=== PATIENT | female | born 1970 | race Hispanic/Latino ===

== ENCOUNTER 2017-09-30 17:38 | Inpatient (IN) | payer BC, OTHER, SELFPAY ==
--- OUTSIDE RECORDS SUMMARY | 2017-09-30 17:40 | XMS REPORT | Clinical Summary ---
:1970 Author Organization [facility] Address [address] [place] [address] Phone Care Team Providers Name Role Phone Unavailable Primary Care Provider Unavailable Allergies No Known Allergies Current Medications Prescription Sig. Disp. Refills Start Date End Date Status metFORMIN (GLUCOPHAGE) Take 500 mg by mouth Active 500 MG tablet 2 (two) times daily with breakfast and dinner. glimepiride (AMARYL) 4 Take 4 mg by mouth 2 Active MG tablet (two) times daily before meals. empagliflozin Take 10 mg by mouth Active (JARDIANCE) 10 mg tablet daily. sertraline (ZOLOFT) 50 Take 50 mg by mouth Active MG tablet daily. Active Problems Not on file Encounters Date Type Specialty Care Team Description 05/09/2017 [facility] Lizzette Velásquez Breast microcalcifications Encounter MD Asaf Grossman Bertram Iheanyichukwu, MD 05/06/2017 Outside Orders [facility] Breast microcalcifications Scheduling MD Chauncey (Primary Dx) after 09/29/2016 Social History Tobacco Use Types Packs/Day Years Used Date Never Smoker Smokeless Tobacco: Never Used Sex Assigned at Date Recorded Not on file Last Filed Vital Signs Vital Sign Reading Time Taken Blood Pressure 116/75 05/09/2017 10:42 AM [employer] [employer] Pulse 86 05/09/2017 10:42 AM [employer] Temperature 36.2 C (97.1 F) 05/09/2017 9:20 AM [employer] Respiratory Rate 18 05/09/2017 10:42 AM [employer] Oxygen Saturation 97% 05/09/2017 10:42 AM [employer] Inhaled Oxygen Concentration - - Weight 77.1 kg (170 lb) 05/09/2017 9:20 AM [employer] Height 162.6 cm (5' 4") 05/09/2017 9:20 AM [employer] Body Mass Index 29.18 05/09/2017 9:20 AM [employer] Plan of Treatment Not on file Results Tissue Exam (05/09/2017 11:10 AM) Component Value Ref Range Case Report Surgical Pathology Report Case: [id number] Authorizing Provider:Lizzette Velásquez MDCollected: 05/09/2017 1110 [facility]2017 1312 Pathologist: Jackie Maradiaga MD Specimen:Breast, Left, LEFT MIDDLE 12 BREAST CALCIFICATION DIAGNOSIS BREAST, LEFT, MIDDLE 12 O'CLOCK,CALCIFICATIONS, STEREOTACTIC CORE NEEDLE BIOPSY: - HYALINIZED FIBROADENOMA - COLUMNAR CELL HYPERPLASIA - COLUMNAR CELL CHANGES - MICROCALCIFICATIONS, COARSE,ASSOCIATED WITH FIBROADENOMA Signing Pathologist Direct Phone Line: [phone] COMMENT In the sections examined, no atypical hyperplasia or carcinoma is identified. CPT Code(s) 30834 CLINICAL HISTORY Sclerosing lesion SPECIMEN SOURCE Left middle 12 oclock breast calcifications GROSS DESCRIPTION The specimen is received in a formalin-filled container labeled with the patients information and labeled left middle 12 o clock breast calcifications and consists of multiple yellow-white br east core biopsies ranging in length from 0.6 to 2.5 cm. Ink code: Black. The specimen is submitted entirely in A1 and A2. CG/ew MICROSCOPIC DESCRIPTION Performed. Professional component was performed [facility], at Department of Pathology, [address] [place] [address], [place] [address], Specimen Performing Laboratory Tissue - Breast, Left [address] [address] MM Breast Specimen Radiograph Left (05/09/2017 10:30 AM) Specimen Performing Laboratory GE RIS Narrative #[id number] - MM, MAMMO, SPECIMEN, RADIOGRAPH, LEFT SPECIMEN LEFT BREAST: 05/09/2017 Five stereotactic guided biopsy specimens were imaged for the area of calcifications located in the left breast at 12 o'clock middle depth. IMPRESSION: SPECIMEN The imaged specimens includes the calcifications. Lizzette Velásquez M.D. pth/:05/09/2017 11:06:40 Monotype Caster: Felicia BELLA (R)(Phil), [facility] [id number] Procedure Note Interface, External Ris In - 05/09/2017 11:46 AM CREATIVE SERVICES SPECIALIST #[id number] - MM, MAMMO, SPECIMEN, RADIOGRAPH, LEFT SPECIMEN LEFT BREAST: 05/09/2017 Five stereotactic guided biopsy specimens were imaged for the area of calcifications located in the left breast at 12 o'clock middle depth. IMPRESSION: SPECIMEN The imaged specimens includes the calcifications. Lizzette Velásquez M.D. pth/:05/09/2017 11:06:40 Monotype Caster: Felicia BELLA (R)(Phil), [facility] [id number] , DIGITAL, UNILATERAL, CONFER MARTA, MAMMO, LEFT (05/09/2017 10:00 AM) Specimen Performing Laboratory GE RIS Narrative #[id number] - MM, DIGITAL, UNILATERAL, CONFER MARTA, MAMMO, LEFT INCLUDING CAD UNILATERAL LEFT DIGITAL PROBLEM SOLVING MAMMOGRAM POST-PROCEDURE IMAGING FOR MARKER PLACEMENT: 05/09/2017 The tissue of the left breast is heterogeneously dense. This may lower the sensitivity of mammography. The post procedure mammogram was performed on a separate mammography unit. A clip is placed at the biopsy site. IMPRESSION: POST PROCEDURE MAMMOGRAM FOR MARKER PLACEMENT Await pathology results. Lizzette Velásquez M.D. pth/:05/09/2017 11:07:15 Monotype Caster: Felicia IRVIN (R)), [facility] Mammogram BI-RADS: Post-procedure mammogram for marker placement [id number] Procedure Note Interface, External Ris In - 05/09/2017 11:46 AM CREATIVE SERVICES SPECIALIST #[id number] - MM, DIGITAL, UNILATERAL, CONFER MARTA, MAMMO, LEFT INCLUDING CAD UNILATERAL LEFT DIGITAL PROBLEM SOLVING MAMMOGRAM POST-PROCEDURE IMAGING FOR MARKER PLACEMENT: 05/09/2017 The tissue of the left breast is heterogeneously dense. This may lower the sensitivity of mammography. The post procedure mammogram was performed on a separate mammography unit. A clip is placed at the biopsy site. IMPRESSION: POST PROCEDURE MAMMOGRAM FOR MARKER PLACEMENT Await pathology results. Lizzette Velásquez M.D. pth/:05/09/2017 11:07:15 Monotype Caster: Felicia Rizzo RT(R)(M), [facility] Mammogram BI-RADS: Post-procedure mammogram for marker placement [id number] Stereotactic breast biopsy left (05/09/2017 9:45 AM) Specimen Performing Laboratory GE RIS Narrative Addendum Begins AMENDMENT: 05/14/2017 Lizzette Velásquez M.D. Pathology results are now available and demonstrate hyalinized fibroadenoma. This is concordant with the imaging findings. Addendum Ends #[id number] - MM, STEREOTACTIC BIOPSY, BREAST, LEFT STEREOTACTIC GUIDED BIOPSY LEFT BREAST WITH MARKING DEVICE INSERTED AND POST DIGITAL MAMMOGRAPHIC IMAGING AND RADIOGRAPHIC SPECIMEN IMAGIN05/09/2017 PATIENT CONSENT: The procedure, risks, benefits and alternatives were discussed with the patient. Informed consent was obtained. A stereotactic guided biopsy was performed for the area of calcifications located in the left breast at 12 o'clock middle depth. The skin was prepped in the usual manner.Local anesthetic was administered to the access site.A skin merissa was made in the breast. The abnormality was approached from the craniocaudal aspect using a prone table.A 9 gauge biopsy needle was placed adjacent to the abnormality under computer guidance and confirmatory stereotactic mammography images were obtained to document needle placement.Once the needle was documented to be in the correct location, five specimens were obtained using InvidioIVA device.A clip was inserted into the biopsy cavity.Post procedure digital mammographic imaging demonstrates the clip at the targeted area.The specimens were sent to the laboratory for pathological analysis. IMPRESSION: STEREOTACTIC GUIDED BIOPSY Stereotactic guided biopsy of the area of calcifications in the left breast at 12 o'clock middle depth was successful with no apparent post procedure complications.The imaged specimens includes the calcifications. Lizzette Velásquez M.D. pth/penrad:05/09/2017 11:07:57 Monotype Caster: Felicia BELLA(R)(M), [facility] [id number] Procedure Note Interface, External Ris In - 05/14/2017 4:32 PM [employer]IVE SERVICES SPECIALIST Addendum Begins AMENDMENT: 05/14/2017 Lizzette Velásquez M.D. Pathology results are now available and demonstrate hyalinized fibroadenoma. This is concordant with the imaging findings. Addendum Ends #[id number] - MM, STEREOTACTIC BIOPSY, BREAST, LEFT STEREOTACTIC GUIDED BIOPSY LEFT BREAST WITH MARKING DEVICE INSERTED AND POST DIGITAL MAMMOGRAPHIC IMAGING AND RADIOGRAPHIC SPECIMEN IMAGIN05/09/2017 PATIENT CONSENT: The procedure, risks, benefits and alternatives were discussed with the patient. Informed consent was obtained. A stereotactic guided biopsy was performed for the area of calcifications located in the left breast at 12 o'clock middle depth. The skin was prepped in the usual manner. Local anesthetic was administered to the access site. A skin merissa was made in the breast. The abnormality was approached from the craniocaudal aspect using a prone table. A 9 gauge biopsy needle was placed adjacent to the abnormality under computer guidance and confirmatory stereotactic mammography images were obtained to document needle placement. Once the needle was documented to be in the correct location, five specimens were obtained using ENJORE EVIVA device. A clip was inserted into the biopsy cavity. Post procedure digital mammographic imaging demonstrates the clip at the targeted area. The specimens were sent to the laboratory for pathological analysis. IMPRESSION: STEREOTACTIC GUIDED BIOPSY Stereotactic guided biopsy of the area of calcifications in the left breast at 12 o'clock middle depth was successful with no apparent post procedure complications. The imaged specimens includes the calcifications. Lizzette Velásquez M.D. pth/penrad:05/09/2017 11:07:57 Monotype Caster: Felicia SCHNEIDER)(M), [facility] [id number] after 09/29/2016
--- OUTSIDE RECORDS SUMMARY | 2017-09-30 17:40 | XMS REPORT ---
:1970 [facility] Address [address] Chang [address] [place] [address] Care Team Providers Name Role Phone ANTONI AIDA CROCKER Unavailable Unavailable Problems This patient has no known problems. Allergies, Adverse Reactions, Alerts This patient has no known allergies or adverse reactions. Medications This patient has no known medications. Results Test Description Test Time Test Comments Text Results Atomic Results Result Comments MM, STEREOTACTIC 2017-05-14 Reason for Addendum BeginsMRN#: BIOPSY, BREAST, 15:59:00 Exam:->calcification [id number]: LEFT 05/14/2017 Lizzette Velásquez M.D. 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 Addendum EndsN#: [id number] - MM, STEREOTACTIC BIOPSY, BREAST, LEFTSTEREOTACTIC GUIDED BIOPSY LEFT BREAST WITH MARKING DEVICE INSERTED AND POST DIGITAL MAMMOGRAPHIC IMAGING AND RADIOGRAPHIC SPECIMEN IMAGIN05/09/2017PATIENT CONSENT: The procedure, risks, benefits and alternatives [...] correct location, five specimens were obtained using Playdemic device. A clip was inserted into the biopsy cavity. Post procedure digital mammographic imaging demonstrates the clip at the targeted area. The specimens were sent to the laboratory for pathological analysis. IMPRESSION: STEREOTACTIC GUIDED BIOPSYStereotactic guided biopsy of the area of calcifications in the left breast at 12 o'clock middle depth was successful with no apparent post procedure complications. The imaged specimens includes the calcifications. Lizzette Velásquez M.D. pth/penrad:05/09/2017 11:07:57 Page Technician: Felicia Rizzo RT(R)(M), [facility] [id number] UE EXAM 2017-05-12 Surgical Pathology Report 12:48:00 Case: [id number] Authorizing Provider: Lizzette Velásquez MD Collected: 05/09/2017 1110 Ordering Location: [facility] [place] Received: 05/09/2017 1312 Pathologist: Jackie Maradiaga MD Specimen: Breast, Left, LEFT MIDDLE 12 BREAST CALCIFICATION BREAST, LEFT, MIDDLE 12 O'CLOCK, CALCIFICATIONS, STEREOTACTIC CORE NEEDLE BIOPSY: - HYALINIZED FIBROADENOMA - COLUMNAR CELL HYPERPLASIA - COLUMNAR CELL CHANGES - MICROCALCIFICATIONS, COARSE, ASSOCIATED WITH FIBROADENOMA Signing Pathologist Direct Phone Line: [phone] y signed by Jackie Maradiaga MD on 05/12/2017 at 12:48 PMIn the sections examined, no atypical hyperplasia or carcinoma is identified.[id number] g lesion Left middle 12 o'clock breast calcifications The specimen is received in a formalin-filled container labeled with the patient's information and labeled "left middle 12 o'clock breast calcifications" and consists of multiple yellow-white breast core biopsies ranging in length from 0.6 to 2.5 cm.Ink code: Black.The specimen is submitted entirely in A1 and A2. CG/ewPerformed.[facility], Department of Pathology, [address] [place] [address], [place] [address], MM, DIGITAL, 2017-05-09 Left breast calcifications #[id number] - UNILATERAL, 11:07:00 MM, DIGITAL, UNILATERAL, CONFER MARTA, CONFER MARTA, MAMMO, LEFT MAMMO, LEFT INCLUDING CADUNILATERAL INCLUDING CAD LEFT DIGITAL PROBLEM SOLVING MAMMOGRAM POST-PROCEDURE IMAGING FOR MARKER PLACEMENT: 05/09/2017 The tissue of the left breast is heterogeneously dense. This may lower the sensitivity of mammography. The post procedure mammogram was performed on a separate mammography unit.A clip is placed at the biopsy site. IMPRESSION: POST PROCEDURE MAMMOGRAM FOR MARKER PLACEMENTAwait pathology results. Lizzette Velásquez M.D. pth/:05/09/2017 11:07:15 Page Technician: Felicia IRVIN (R)), [facility] Mammogram BI-RADS: Post-procedure mammogram for marker placement [id number] ETTE, MAMMO, 2017-05-09 Reason for exam:->Left #[id number] - SPECIMEN, 11:06:00 breast calcifications MM, MAMMO, SPECIMEN, RADIOGRAPH, LEFT RADIOGRAPH, LEFTSPECIMEN LEFT BREAST: 05/09/2017Five stereotactic guided biopsy specimens were imaged for the area of calcifications located in the left breast at 12 o'clock middle depth. IMPRESSION: SPECIMENThe imaged specimens includes the calcifications. Lizzette Velásquez M.D. pth/:05/09/2017 11:06:40 Page Technician: Felicia SCHNEIDER)(Phil), [facility] [id number]
[2017-09-30] MEDS ORDERED: CIPROFLOXACIN 400mg IV 400 MG/200 ML BAG IV ONE (19:06)
[2017-09-30] MEDS ORDERED: MORPHINE 4 MG/ML SYR ONE ×2 (19:06→20:26)
[2017-09-30] MEDS ORDERED: METRONIDAZOLE 500mg IVPB 500 MG/100 ML BAG IV ONE (19:06)
[2017-09-30] MEDS ORDERED: ONDANSETRON 4 MG/2 ML VIAL ONE ×2 (19:06→20:26)
[2017-09-30] MEDS ORDERED: FAMOTIDINE 20 MG/2 ML VIAL IV ONE (19:06)
[2017-09-30] MEDS ORDERED: NA CHLORIDE 0.9% 1,000 ML ONE (19:06)
[2017-09-30 19:11] LABS: Absolute Lymphocytes (CBC) 3.2 K/uL (0.7-4.9); Absolute Monocytes 0.6 K/uL (0.1-1.3); Basophils % 0.8 % (0-1.3); Eosinophils % 1.9 % (0-4.4); Hematocrit 41.5 % (36.0-45.0); Lymphocytes % 26.5 % (15.3-44.8); MCV 89.8 fL (80-100); Monocytes % 4.7 % (3.3-12.3); RBC Red Blood Cell Count 4.62 M/uL (3.86-4.86)
[2017-09-30 19:14] LABS: Protime INR 1.07
[2017-09-30 19:23] LABS: Glucose Level 80 mg/dL (65-120); Lipase 118 U/L (22-51)
[2017-09-30 19:26] LABS: Bicarbonate 31 mEq/L (21-31); Sodium Level 140 mEq/L (135-145)
[2017-09-30 19:29] LABS: ALT/SGPT 26 IU/L (10-60); AST/SGOT 28 IU/L (10-42); Albumin 4.4 g/dL (3.2-5.5); Alkaline Phosphatase 93 IU/L (42-121); BUN Blood Urea Nitrogen 9 mg/dL (6-20); Bilirubin Direct 0.1 mg/dL (0-0.2); Bilirubin Total 0.6 mg/dL (0.3-1.2); CKMB Creatine Kinase MB 0.6 ng/ml (0.3-4.0); Creatine Phosphokinase 23 IU/L (22-269); Glomerular Filtration Rate > 90 mL/min (=/>90); Magnesium 1.7 mg/dL (1.8-2.5); Protein, Total 8.4 g/dL (6.0-8.3)
--- NOTE | 2017-09-30 19:32 | RAD REPORT ---
EXAM DESCRIPTION: RAD - Chest Single View - 09/30/2017 7:08 pm CLINICAL HISTORY: Cough, abdominal distention COMPARISON: February 2017 TECHNIQUE: AP portable chest image was obtained 1858 hours . FINDINGS: Lungs are clear. Lung markings are similar to comparison. Heart and vasculature are normal . No measurable pleural effusion and no pneumothorax. No gross bony abnormality seen. No acute aortic findings suspected. IMPRESSION: No acute cardiopulmonary process. No significant interval change.
--- NOTE | 2017-09-30 20:01 | EDPHYS ---
Physician Documentation [facility] Name: Dena Nance Age: 47 yrs Sex: Female : 1970 Arrival Date: 09/30/2017 Time: 17:42 Bed 26 Private MD: Mason Arreguin ED Physician Ricardo Araiza HPI: 09/30 18:32 This 47 yrs old Female presents to ER via Ambulatory with complaints of tavo Abdominal Pain. 18:32 The patient presents with abdominal pain in the upper abdomen, in the lower abdomen. tavo Onset: The symptoms/episode began/occurred 3 day(s) ago. The symptoms do not radiate. Associated signs and symptoms: none. The symptoms are described as crampy. Modifying factors: The symptoms are alleviated by nothing, the symptoms are aggravated by movement. Severity of pain: At its worst the pain was mild moderate in the emergency department the pain is unchanged. 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 - Social history:: Smoking status: Patient/guardian denies using tobacco. - Family history:: not pertinent. ROS: 18:32 Constitutional: Negative for fever, chills, and weight loss, Eyes: Negative for injury, tavo pain, redness, and discharge, ENT: Negative for injury, pain, and discharge, Neck: Negative for injury, pain, and swelling, Cardiovascular: Negative for chest pain, palpitations, and edema, Respiratory: Negative for shortness of breath, cough, wheezing, and pleuritic chest pain, Back: Negative for injury and pain, : Negative for injury, bleeding, discharge, and swelling, MS/Extremity: Negative for injury and deformity, Skin: Negative for injury, rash, and discoloration, Neuro: Negative for headache, weakness, numbness, tingling, and seizure, Psych: Negative for depression, anxiety, suicide ideation, homicidal ideation, and hallucinations, Allergy/Immunology: Negative for hives, rash, and allergies, Endocrine: Negative for neck swelling, polydipsia, polyuria, polyphagia, and marked weight changes. 18:32 Abdomen/GI: Positive for abdominal pain, nausea and vomiting, of the right upper quadrant, left upper quadrant, right lower quadrant and left lower quadrant. Exam: 18:32 Constitutional: This is a well developed, well nourished patient who is awake, alert, tavo and in no acute distress. Head/Face: Normocephalic, atraumatic. Eyes: Pupils equal round and reactive to light, extra-ocular motions intact. Lids and lashes normal. Conjunctiva and sclera are non-icteric and not injected. Cornea within normal limits. Periorbital areas with no swelling, redness, or edema. ENT: Nares patent. No nasal discharge, no septal abnormalities noted. Tympanic membranes are normal and external auditory canals are clear. Oropharynx with no redness, swelling, or masses, exudates, or evidence of obstruction, uvula midline. Mucous membranes moist. Neck: Trachea midline, no thyromegaly or masses palpated, and no cervical lymphadenopathy. Supple, full range of motion without nuchal rigidity, or vertebral point tenderness. No Meningismus. Chest/axilla: Normal chest wall appearance and motion. Nontender with no deformity. No lesions are appreciated. Cardiovascular: Regular rate and rhythm with a normal S1 and S2. No gallops, murmurs, or rubs. Normal PMI, no JVD. No pulse deficits. Respiratory: Lungs have equal breath sounds bilaterally, clear to auscultation and percussion. No rales, rhonchi or wheezes noted. No increased work of breathing, no retractions or nasal flaring. Back: No spinal tenderness. No costovertebral tenderness. Full range of motion. Female : Normal external genitalia. Skin: Warm, dry with normal turgor. Normal color with no rashes, no lesions, and no evidence of cellulitis. MS/ Extremity: Pulses equal, no cyanosis. Neurovascular intact. Full, normal range of motion. Neuro: Awake and alert, GCS 15, oriented to person, place, time, and situation. Cranial nerves II-XII grossly intact. Motor strength 5/5 in all extremities. Sensory grossly intact. Cerebellar exam normal. Normal gait. Psych: Awake, alert, with orientation to person, place and time. Behavior, mood, and affect are within normal limits. 18:32 Abdomen/GI: Inspection: distension, Bowel sounds: normal, Palpation: moderate abdominal tenderness, in the right upper quadrant, left upper quadrant, right lower quadrant and left lower quadrant, Liver: no appreciated palpable abnormalities, Hernia: not appreciated. Vital Signs: 18:15 BP 110 / 59; Pulse 78; Resp 14; Temp 98.7(O); Pulse Ox 95% on R/A; Weight 77.11 kg (R); lk1 Height 5 ft. 4 in. (162.56 cm) (R); Pain 9/10; 19:00 BP 110 / 86; Pulse 82; Resp 15; Pulse Ox 97% on R/A; lk1 19:30 BP 120 / 63; Pulse 85; Resp 15; Pulse Ox 97% on R/A; lk1 20:00 BP 125 / 64; Pulse 83; Resp 14; Pulse Ox 96% on R/A; lk1 20:30 BP 129 / 72; Pulse 90; Resp 15; Pulse Ox 98% on R/A; lk1 21:00 BP 109 / 53; Pulse 65; Resp 14; Pulse Ox 95% on R/A; Pain 5/10; lk1 21:30 BP 108 / 46; Pulse 68; Resp 12; Pulse Ox 95% on R/A; lk1 22:00 BP 115 / 69; Pulse 94; Resp 15; Pulse Ox 96% on R/A; lk1 22:30 BP 100 / 58; Pulse 91; Resp 15; Pulse Ox 94% on R/A; Pain 7/10; lk1 18:15 Body Mass Index 29.18 (77.11 kg, 162.56 cm) [facility] MDM: 18:19 Patient medically screened. [facility] 18:36 Data reviewed: vital signs, nurses notes, lab test result(s), EKG, radiologic studies, [facility] CT scan, plain films. 09/30 18:31 Order name: Basic Metabolic Panel; Complete Time: 19:34 [facility] 09/30 18:31 Order name: BNP; Complete Time: 19:29 [facility] 09/30 18:31 Order name: CBC with Diff; Complete Time: 19:29 [facility] 09/30 18:31 Order name: Ckmb; Complete Time: 19:34 [facility] 09/30 18:31 Order name: CPK; Complete Time: 19:34 [facility] 09/30 18:31 Order name: LFT's; Complete Time: 19:34 [facility] 09/30 18:31 Order name: Magnesium; Complete Time: 19:34 [facility] 09/30 18:31 Order name: PT-INR; Complete Time: 19:29 [facility] 09/30 18:31 Order name: Ptt, Activated; Complete Time: 19:29 [facility] 09/30 18:31 Order name: Troponin (emerg Dept Use Only); Complete Time: 19:29 [facility] 09/30 18:31 Order name: XRAY Chest (1 view); Complete Time: 19:34 [facility] 09/30 18:31 Order name: Lipase; Complete Time: 19:34 [facility] 09/30 18:31 Order name: US Abdomen Limited; Complete Time: 21:15 [facility] 09/30 19:57 Order name: Urine Dipstick--Ancillary (enter results); Complete Time: 21:15 em1 09/30 18:31 Order name: CT Abd/Pelvis - W/Contrast [facility] 09/30 20:58 Order name: CT; Complete Time: 21:15 EDMS 09/30 18:31 Order name: EKG; Complete Time: 18:32 [facility] 09/30 18:31 Order name: Cardiac monitoring; Complete Time: 20:48 [facility] 09/30 18:31 Order name: EKG - Nurse/Tech [facility] 09/30 18:31 Order name: IV Saline Lock; Complete Time: 20:48 [facility] 09/30 18:31 Order name: Labs collected and sent; Complete Time: 20:48 [facility] 09/30 18:31 Order name: O2 Per Protocol; Complete Time: 21:24 [facility] 09/30 18:31 Order name: O2 Sat Monitoring; Complete Time: 21:24 [facility] 09/30 18:31 Order name: Urine Dipstick-Ancillary (obtain specimen); Complete Time: 19:56 [facility] 09/30 20:11 Order name: CONS Physician Consult EDMS Administered Medications: 18:48 Drug: Zofran 4 mg Route: IVP; Site: right antecubital; lk1 19:05 Follow up: Response: No adverse reaction; Nausea is decreased lk1 18:50 Drug: Pepcid 20 mg Route: IVP; Site: right antecubital; lk1 19:15 Follow up: Response: No adverse reaction lk1 18:51 Drug: morphine 2 mg Route: IVP; Site: right antecubital; lk1 19:05 Follow up: Response: No adverse reaction; Marked relief of symptoms; Pain is decreased lk1 19:10 Drug: NS 0.9% 1000 ml Route: IV; Rate: 1 bolus; Site: right antecubital; lk1 20:10 Follow up: Response: No adverse reaction; IV Status: Completed infusion lk1 19:10 Drug: morphine 2 mg Route: IVP; Site: right antecubital; lk1 19:25 Follow up: Response: No adverse reaction; Marked relief of symptoms; Pain is decreased lk1 19:10 Drug: Cipro 400 mg Volume: 200 ml; Route: IVPB; Infused Over: 60 mins; Site: right lk1 antecubital; 20:10 Follow up: Response: No adverse reaction; IV Status: Completed infusion lk1 19:10 Drug: Flagyl 500 mg Volume: 100 ml; Route: IVPB; Rate: 200 ml/hr; Infused Over: 30 lk1 mins; Site: right antecubital; 19:40 Follow up: Response: No adverse reaction; IV Status: Completed infusion lk1 20:00 Drug: NS 0.9% 1000 ml Route: IV; Rate: 1 bolus; Site: right antecubital; lk1 21:00 Follow up: Response: No adverse reaction; IV Status: Completed infusion lk1 20:02 Drug: Potassium Chloride 20 mEq Route: IV; Rate: per protocol; Site: right antecubital; lk1 22:00 Follow up: Response: No adverse reaction; IV Status: Completed infusion lk1 20:05 Drug: Zofran 4 mg Route: IVP; Site: right antecubital; lk1 20:30 Follow up: Response: No adverse reaction; Marked relief of symptoms; Nausea is decreasedlk1 20:07 Drug: morphine 4 mg Route: IVP; Site: right antecubital; lk1 20:30 Follow up: Response: No adverse reaction; Marked relief of symptoms; Pain is decreased lk1 21:25 Drug: NS 0.9% 1000 ml Route: IV; Rate: 1 bolus; Site: right antecubital; lk1 22:25 Follow up: Response: No adverse reaction; IV Status: Completed infusion lk1 21:25 Drug: Magnesium Sulfate 1 grams Route: IVPB; Infused Over: 1 hrs; Site: right lk1 antecubital; 22:24 Follow up: Response: No adverse reaction; IV Status: Completed infusion lk1 22:25 Drug: Rocephin - (cefTRIAXone) 1 grams Route: IVPB; Infused Over: 30 mins; Site: right lk1 antecubital; 22:55 Follow up: Response: No adverse reaction; IV Status: Completed infusion lk1 22:30 Not Given (Will be started on admision as patient is leaving ED): NS 0.9% with KCl 20 lk1 mEq/L 1000 ml IV at 125 ml/hr continuous Disposition: 09/30/17 20:00 Hospitalization ordered by Bon Ponce for Inpatient Admission. Preliminary diagnosis are Abdominal tenderness, Acute pancreatitis, Hypomagnesemia, Hypokalemia, Diverticular disease of intestine, Diverticulitis of large intestine without perforation or abscess without bleeding. - Bed requested for Telemetry/MedSurg (Inpatient). - Status is Inpatient Admission. lk1 - Condition is Fair. - Problem is new. - Symptoms have improved. UTI on Admission? No Signatures: Dispatcher [employer] Kanika Olea RN RN kl Anderson, Corey, MD MD cha Kluge, Leah, RN RN lk1 Corrections: (The following items were deleted from the chart) 18:59 18:31 Urine Test ordered. tavo land
--- NOTE | 2017-09-30 20:01 | ER ---
Nurse's Notes [facility] Name: Dena Nance Age: 47 yrs Sex: Female : 1970 Arrival Date: 09/30/2017 Time: 17:42 Bed 26 Private MD: Mason Arreguin Diagnosis: Abdominal tenderness;Acute pancreatitis;Hypomagnesemia;Hypokalemia;Diverticular disease of intestine;Diverticulitis of large intestine without perforation or abscess without bleeding Presentation: 09/30 18:12 Presenting complaint: Patient states: I have had a pain in the upper part of my abdomen lk1 that goes side to side for 3 days. Transition of care: patient was not received from another setting of care. Onset of symptoms was September 28, 2017. Care prior to arrival: None. 18:12 Method Of Arrival: Ambulatory lk1 18:12 Acuity: MARIANA 3 lk1 Triage Assessment: 18:14 General: Appears in no apparent distress. Behavior is calm, cooperative, appropriate lk1 for age. Pain: Complains of pain in epigastric area Pain radiates to right upper quadrant and left upper quadrant Pain currently is 9 out of 10 on a pain scale. Aggravated by exercise. EENT: No signs and/or symptoms were reported regarding the EENT system. Neuro: Level of Consciousness is awake, alert, obeys commands, Oriented to person, place, time, situation. Cardiovascular: Heart tones S1 S2 present Capillary refill is brisk Patient's skin is warm and dry. Respiratory: Airway is patent Respiratory effort is even, unlabored, Respiratory pattern is regular, symmetrical, Breath sounds are clear bilaterally. GI: Abdomen is non-distended, Bowel sounds present X 4 quads. GI: Reports nausea, Patient currently denies cramping, diarrhea, vomiting. : No signs and/or symptoms were reported regarding the genitourinary system. Derm: No signs and/or symptoms reported regarding the dermatologic system. Musculoskeletal: No signs and/or symptoms reported regarding the musculoskeletal system. 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 - Social history:: Smoking status: Patient/guardian denies using tobacco. - Family history:: not pertinent. Screenin:30 Abuse screen: Denies threats or abuse. Denies injuries from another. Nutritional lk1 screening: No deficits noted. Tuberculosis screening: No symptoms or risk factors identified. Fall Risk None identified. Assessment: 19:00 Reassessment: Patient and/or family updated on plan of care and expected duration. Pain lk1 level reassessed. Patient is alert, oriented x 3, equal unlabored respirations, skin warm/dry/pink. Patient states feeling better. Patient states symptoms have improved. 20:00 Reassessment: Patient and/or family updated on plan of care and expected duration. Pain lk1 level reassessed. Patient is alert, oriented x 3, equal unlabored respirations, skin warm/dry/pink. Patient states feeling better. Patient states symptoms have improved. 23:10 GI: Guarding noted in epigastric area and left upper quadrant. lk1 Vital Signs: 18:15 BP 110 / 59; Pulse 78; Resp 14; Temp 98.7(O); Pulse Ox 95% on R/A; Weight 77.11 kg (R); lk1 Height 5 ft. 4 in. (162.56 cm) (R); Pain 9/10; 19:00 BP 110 / 86; Pulse 82; Resp 15; Pulse Ox 97% on R/A; lk1 19:30 BP 120 / 63; Pulse 85; Resp 15; Pulse Ox 97% on R/A; lk1 20:00 BP 125 / 64; Pulse 83; Resp 14; Pulse Ox 96% on R/A; lk1 20:30 BP 129 / 72; Pulse 90; Resp 15; Pulse Ox 98% on R/A; lk1 21:00 BP 109 / 53; Pulse 65; Resp 14; Pulse Ox 95% on R/A; Pain 5/10; lk1 21:30 BP 108 / 46; Pulse 68; Resp 12; Pulse Ox 95% on R/A; lk1 22:00 BP 115 / 69; Pulse 94; Resp 15; Pulse Ox 96% on R/A; lk1 22:30 BP 100 / 58; Pulse 91; Resp 15; Pulse Ox 94% on R/A; Pain 7/10; lk1 18:15 Body Mass Index 29.18 (77.11 kg, 162.56 cm) lk1 ED Course: 17:42 Patient arrived in ED. mr 17:42 Mason Arreguin MD is Private Physician. mr 18:11 Zulema Garcia, RN is Primary Nurse. lk1 18:12 Triage completed. lk1 18:16 Arm band placed on right wrist. lk1 18:19 Ricardo Araiza MD is Attending Physician. tavo 18:30 Patient has correct armband on for positive identification. Placed in gown. Bed in low lk1 position. Call light in reach. Adult w/ patient. 18:50 Inserted saline lock: 22 gauge in right antecubital area, using aseptic technique. kr2 Blood collected. 19:06 X-ray completed. Patient tolerated procedure well. bb2 19:06 Patient moved back from radiology. bb2 19:07 Ultrasound completed. Patient tolerated well. aa4 19:07 XRAY Chest (1 view) In Process Unspecified. EDMS 19:47 US Abdomen Limited In Process Unspecified. EDMS 19:59 Bon Ponce MD is Hospitalizing Provider. tavo 20:46 CT completed. Patient tolerated procedure well. Patient moved to CT via wheelchair. nm Patient moved back from CT. 21:25 No provider procedures requiring assistance completed. Patient admitted, IV remains in lk1 place. Administered Medications: 18:48 Drug: Zofran 4 mg Route: IVP; Site: right antecubital; lk1 19:05 Follow up: Response: No adverse reaction; Nausea is decreased lk1 18:50 Drug: Pepcid 20 mg Route: IVP; Site: right antecubital; lk1 19:15 Follow up: Response: No adverse reaction lk1 18:51 Drug: morphine 2 mg Route: IVP; Site: right antecubital; lk1 19:05 Follow up: Response: No adverse reaction; Marked relief of symptoms; Pain is decreased lk1 19:10 Drug: NS 0.9% 1000 ml Route: IV; Rate: 1 bolus; Site: right antecubital; lk1 20:10 Follow up: Response: No adverse reaction; IV Status: Completed infusion lk1 19:10 Drug: morphine 2 mg Route: IVP; Site: right antecubital; lk1 19:25 Follow up: Response: No adverse reaction; Marked relief of symptoms; Pain is decreased lk1 19:10 Drug: Cipro 400 mg Volume: 200 ml; Route: IVPB; Infused Over: 60 mins; Site: right lk1 antecubital; 20:10 Follow up: Response: No adverse reaction; IV Status: Completed infusion lk1 19:10 Drug: Flagyl 500 mg Volume: 100 ml; Route: IVPB; Rate: 200 ml/hr; Infused Over: 30 lk1 mins; Site: right antecubital; 19:40 Follow up: Response: No adverse reaction; IV Status: Completed infusion lk1 20:00 Drug: NS 0.9% 1000 ml Route: IV; Rate: 1 bolus; Site: right antecubital; lk1 21:00 Follow up: Response: No adverse reaction; IV Status: Completed infusion lk1 20:02 Drug: Potassium Chloride 20 mEq Route: IV; Rate: per protocol; Site: right antecubital; lk1 22:00 Follow up: Response: No adverse reaction; IV Status: Completed infusion lk1 20:05 Drug: Zofran 4 mg Route: IVP; Site: right antecubital; lk1 20:30 Follow up: Response: No adverse reaction; Marked relief of symptoms; Nausea is decreasedk1 20:07 Drug: morphine 4 mg Route: IVP; Site: right antecubital; lk1 20:30 Follow up: Response: No adverse reaction; Marked relief of symptoms; Pain is decreased lk1 21:25 Drug: NS 0.9% 1000 ml Route: IV; Rate: 1 bolus; Site: right antecubital; lk1 22:25 Follow up: Response: No adverse reaction; IV Status: Completed infusion lk1 21:25 Drug: Magnesium Sulfate 1 grams Route: IVPB; Infused Over: 1 hrs; Site: right lk1 antecubital; 22:24 Follow up: Response: No adverse reaction; IV Status: Completed infusion lk1 22:25 Drug: Rocephin - (cefTRIAXone) 1 grams Route: IVPB; Infused Over: 30 mins; Site: right lk1 antecubital; 22:55 Follow up: Response: No adverse reaction; IV Status: Completed infusion lk1 22:30 Not Given (Will be started on admision as patient is leaving ED): NS 0.9% with KCl 20 lk1 mEq/L 1000 ml IV at 125 ml/hr continuous Outcome: 20:00 Decision to Hospitalize by Provider. tavo 23:10 Admitted to Med/surg accompanied by nurse, family with patient, via wheelchair, room lk1 422, with chart, Report called to Keri 23:10 Condition: good 23:10 Discharge instructions given to patient, family, Instructed on the need for admit. 23:17 Patient left the ED. lk1 Signatures: Dispatcher [employer] EDMS Ricardo Araiza MD MD cha Rivera, Maria mr ColvinBairdLiza vallecillo Leah RN RN lk1 Alon Em Karey, RN RN kr2 Pauly Padilla2
--- NOTE | 2017-09-30 20:21 | RAD REPORT ---
EXAM DESCRIPTION: US - Abdomen Exam Limited - 09/30/2017 7:46 pm CLINICAL HISTORY: Abdominal pain COMPARISON: None. FINDINGS: Gallbladder is absent. No mass or abnormal fluid collection in the gallbladder fossa. No common duct stone or biliary tree dilatation identified. IMPRESSION: Status post cholecystectomy with no biliary tree abnormality seen.
[2017-09-30] MEDS ORDERED: NA CHLORIDE 0.9% 2,000 ML ONE (20:26)
[2017-09-30] MEDS ORDERED: MAGNESIUM SULFATE 1 gm IVPB 1 GM/100 ML BAG IV ONE (20:26)
[2017-09-30] MEDS ORDERED: KCL 20 MEQ/100 mL IVPB 20 MEQ/100 ML BAG IV ONE (20:27)
[2017-09-30 20:28] LABS: Urine Blood NEGATIVE (NEG); Urine Glucose NEGATIVE (NEG); Urine Protein NEGATIVE (NEG); Urine Specific Gravity 1.015 (1.005-1.030)
--- NOTE | 2017-09-30 20:55 | P.HP ---
Certification for Inpatient Patient admitted to: Inpatient With expected LOS: >2 Midnights Practitioner: I am a practitioner with admitting privileges, knowledge of patient current condition, hospital course, and medical plan of care. Services: Services provided to patient in accordance with Admission requirements found in Title 42 Section 412.3 of the Code of Federal Regulations Patient History Date of Service: 09/30/17 Reason for admission: abdominal pain History of Present Illness: Ms Nance is a 47 years old woman with history of DM II, pancreatitis in the past, S/P cholecystectomy, presented to ED complaining of abdominal pain, starting 3 days ago. Her pain is located on epigastric area, radiated to LUQ and back. Intensity is 10/10. It is associated with nausea but not vomiting. She describe the pain as constant, dull, exacerbated with movements. She has this kind of pain in the past when she had pancreatitis. She denied fever but has had chills. According to her statement, last time she drink alcohol was 1 month ago. Lab work remarkable for normal WBC count, lipase elevation, hypokalemia and hypomagnesemia. Limited abd US shows no acute abnormalities. Allergies No Known Allergies Allergy (Verified 05/07/14 08:34) Home Medications: Metformin ER [Glucophage ER*] 1,000 mg PO BID 05/06/14 Glimepiride 1 tab PO BID 01/08/17 Cephalexin [Keflex] 500 mg PO BID #4 cap 01/09/17 Tramadol HCl [Ultram] 50 mg PO Q8H PRN #20 tablet 01/09/17 - Past Medical/Surgical History Diabetic: Yes -: DM -: YANN -: HYSTERECTOMY -: HYSTERECTOMY - Family History Father -: Stroke - Social History Smoking Status: Never smoker Alcohol use: Yes CD- Drugs: No Caffeine use: Yes Place of Residence: Home Review of Systems 10-point ROS is otherwise unremarkable Physical Examination - Physical Exam General: Alert, In no apparent distress HEENT: Atraumatic, PERRLA, Mucous membr. moist/pink, EOMI, Sclerae nonicteric Neck: Supple, 2+ carotid pulse no bruit, No LAD, Without JVD or thyroid abnormality Respiratory: Clear to auscultation bilaterally, Normal air movement Cardiovascular: Regular rate/rhythm, Normal S1 S2 Gastrointestinal: Normal bowel sounds, Tenderness (tender to palpation on epigastric and LUQ.) Musculoskeletal: No tenderness Integumentary: No rashes Neurological: Normal speech, Normal strength at 5/5 x4 extr, Normal tone, Normal affect Lymphatics: No axilla or inguinal lymphadenopathy - Studies Laboratory Data (last 24 hrs) 09/30/17 18:50: PT 12.6 H, INR 1.07, APTT 26.3 09/30/17 18:50: WBC 12.1 H, Hgb 13.4, Hct 41.5, Plt Count 268 09/30/17 18:50: B-Natriuretic Peptide 21 09/30/17 18:50: Sodium 140, Potassium 3.0 L, BUN 9, Creatinine 0.58, Glucose 80 , Magnesium 1.7 L, Total Bilirubin 0.6, AST 28, ALT 26, Alkaline Phosphatase 93 , Lipase 118 H Assessment and Plan - Problems (Diagnosis) (1) Acute pancreatitis Onset Date: 01/08/17 Current Visit: No Status: Acute (2) Diabetes Current Visit: No Status: Acute Qualifiers: Diabetes mellitus type: type 2 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 She has mild lipase elevation as well. Her clinical presentation is highly suspicious for acute pancreatitis. Pending CT abd/pelvis. Will keep her NPO, start IV fluids, monitory her blood sugar, replace electrolytes as needed. Check lipid panel in AM. - Advance Directives Does patient have a Living Will: No Does patient have a Durable POA for Healthcare: No - Code Status/Comfort Care Code Status Assessed: Yes Code Status: Full Code
--- NOTE | 2017-09-30 20:58 | RAD REPORT ---
EXAM DESCRIPTION: CT - Abdomen Pelvis W Contrast - 09/30/2017 8:47 pm CLINICAL HISTORY: Abdominal pain, prior hysterectomy and cholecystectomy, history of pancreatitis an d fatty liver disease COMPARISON: CT imaging December 2016 TECHNIQUE: Biphasic, helical CT imaging of the abdomen and pelvis was performed following 100 ml non -ionic IV contrast. Oral contrast was given. All CT scans are performed using dose optimization technique as appropriate and may include automated exposure control or mA/KV adjustment according to patient size. FINDINGS: No suspicious findings in the lung bases. The liver, spleen, and pancreas show no focal findings. Cholecystectomy clips are present. No biliary tree dilatation. Symmetric renal function is seen with no hydronephrosis or suspicious renal mass. No pyelonephritis o r acute renal parenchymal process. Partially filled urinary bladder shows no suspicious findings. Agatha emelia is absent. No ovarian abnormality seen. No stomach or small bowel significant finding. The appendix is normal. From tip of the cecum through the proximal descending colon no suspicious finding is seen. There is an approximately 7 centimeter l andry segment of descending colon and proximal sigmoid colon showing circumferential wall thickening. E dematous/ inflammatory stranding present. The patient has diverticulosis in this region. More distall y sigmoid and rectum are uninvolved. CT contrast has reached the distal rectum. No free air, free fluid or pneumatosis. No abscess or extravasation of contrast. No other area of i nflammatory stranding. No hernia, mass or bulky lymphadenopathy. The urinary bladder is without sign ificant finding. No adrenal abnormality. No suspicious bony findings. IMPRESSION: Acute diverticulitis involving descending - sigmoid colon junction. No abscess, free ai r or complicating factor.
[2017-09-30] MEDS ORDERED: D50W 25 GM/50 ML SYRINGE IV PRN (21:21)
[2017-09-30] MEDS ORDERED: GLUCAGON 1 MG/VIAL IM PRN (21:21)
[2017-09-30] MEDS ORDERED: CEFTRIAXONE/SWI 1gm 1 GM/10 ML SYR ONE (22:17)
[2017-09-30] MEDS ORDERED: ONDANSETRON 4 MG/2 ML VIAL IV PRN (22:48)
[2017-09-30] MEDS: NA CHLORIDE 0.9% 1,000 ML IV SCH (22:48)
[2017-09-30] MEDS ORDERED: ACETAMINOPHEN 500 MG TAB PO PRN (22:48)
[2017-09-30] MEDS: METRONIDAZOLE 500mg IVPB 500 MG/100 ML BAG IV SCH (23:42)
[2017-09-30] MEDS: KETOROLAC 30 MG/ML INJ IV PRN (23:42)
[2017-09-30] MEDS: NS KCL 20MEQ 20 MEQ/1,000 ML BAG IV SCH (23:43)
[2017-10-01] MEDS: METRONIDAZOLE 500mg IVPB 500 MG/100 ML BAG IV SCH ×4 (05:20→23:51)
[2017-10-01] MEDS: KETOROLAC 30 MG/ML INJ IV PRN ×2 (05:22→18:05)
[2017-10-01] MEDS: INSULIN -REGULAR HUMAN 50 UNIT/0.5 ML ML SQ SCH ×6 (05:22→20:29)
[2017-10-01] MEDS: NS KCL 20MEQ 20 MEQ/1,000 ML BAG IV SCH (05:41)
[2017-10-01 06:14] LABS: Absolute Lymphocytes (CBC) 1.7 K/uL (0.7-4.9); Absolute Monocytes 0.4 K/uL (0.1-1.3); Absolute Neutrophil 4.5 K/uL (1.8-8.0); Basophils % 0.6 % (0-1.3); Eosinophils % 3.8 % (0-4.4); Hematocrit 34.4 % (36.0-45.0); Lymphocytes % 24.7 % (15.3-44.8); MCH 29.4 pg (27.0-35.0); MCV 89.7 fL (80-100); MPV 9.2 fL (7.6-11.3); Monocytes % 6.1 % (3.3-12.3); RBC Red Blood Cell Count 3.84 M/uL (3.86-4.86)
[2017-10-01 07:02] LABS: ALT/SGPT 156 IU/L (10-60); AST/SGOT 206 IU/L (10-42); Albumin 3.2 g/dL (3.2-5.5); Alkaline Phosphatase 102 IU/L (42-121); Amylase Level 59 U/L (28-100); BUN Blood Urea Nitrogen 7 mg/dL (6-20); Bicarbonate 27 mEq/L (21-31); Bilirubin Total 0.9 mg/dL (0.3-1.2); Glomerular Filtration Rate > 90 mL/min (=/>90); Glucose Level 138 mg/dL (65-120); HDL Cholesterol 43 mg/dL (29-89); LDL Cholesterol, Calculated 85 (<130); Lipase 41 U/L (22-51); Potassium 4.2 mEq/L (3.6-5.0); Protein, Total 5.8 g/dL (6.0-8.3); Sodium Level 139 mEq/L (135-145)
[2017-10-01] MEDS ORDERED: INSULIN -REGULAR HUMAN 50 UNIT/0.5 ML ML SQ SCH (07:30)
[2017-10-01] MEDS: NA CHLORIDE 0.9% 1,000 ML IV SCH ×2 (08:48→18:09)
[2017-10-01] MEDS: ENOXAPARIN 40 MG/0.4 ML SQ SCH (09:00)
[2017-10-01] MEDS: CIPROFLOXACIN 400mg IV 400 MG/200 ML BAG IV SCH ×2 (09:00→20:28)
--- NOTE | 2017-10-01 13:20 | PN ---
Date of Progress Note: 10/01/2017 Subjective: The patient is seen and examined, chart reviewed, and case discussed with RN. The patient states, her abdominal pain is better. No nausea , vomiting. Review of Systems: Negative except as above. Medications: Reviewed. Objective: Vital Signs: Temperature 98.1, heart rate 80, blood pressure 111/61 , respirations 16, and O2 96% on room air. General: Awake, alert, oriented x3, in some mild distress. Obese female. BMI 30. CV: S1, S2. No murmurs. Regular rate and rhythm. Peripheral pulses present. Respiratory: clear to auscultation bilaterally. No wheezing. No stridor. No use of accessory muscles. Gastrointestinal: Tenderness to palpation in the epigastric region. No rebound or guarding. No rigidity. Bowel sounds positive. Nondistended. Extremities: No clubbing, cyanosis, or edema. Neurologic: Nonfocal. Laboratory Data: Sodium 139, potassium 4.2, chloride 108, CO2 27, BUN 7, creatinine 0.53, glucose 138, calcium 8.4, AST 206, ALT 156, alkaline phosphatase 102, and lipase 41. Amylase 59. WBC 7, H and H 11.3, 34.4, and platelets 208. UA negative. Assessment And Plan: A 47-year-old female with; 1. Acute pancreatitis. Amylase and lipase levels have normalized. Continue IV fluids and liquid diet, advance as tolerated. Pain control. Gastroenterology has been consulted. 2. Diabetes mellitus type 2 with long-term use of insulin with hyperglycemia. 3. Obesity, body mass index 30. 4. Acute diverticulitis. Continue antibiotics 5. Hypokalemia. Replace and monitor 6. Hypomagnesemia. Replace and monitor 7. Elevated liver enzymes. Will trend. likely secondary to above. SA/MODL Voice ID: [id number] Report ID: [id number] LAURENCE
[2017-10-01] MEDS: GLIMEPIRIDE 2 MG TABLET PO SCH (18:04)
[2017-10-01] MEDS: TRAMADOL HCL 50 MG TAB PO PRN (21:35)
[2017-10-02] MEDS: METRONIDAZOLE 500mg IVPB 500 MG/100 ML BAG IV SCH ×2 (05:17→12:00)
[2017-10-02] MEDS: TRAMADOL HCL 50 MG TAB PO PRN ×2 (05:17→12:39)
[2017-10-02] MEDS: NA CHLORIDE 0.9% 1,000 ML IV SCH (05:17)
[2017-10-02 06:25] LABS: BUN Blood Urea Nitrogen 7 mg/dL (6-20); Glomerular Filtration Rate > 90 mL/min (=/>90); Glucose Level 110 mg/dL (65-120); Magnesium 1.8 mg/dL (1.8-2.5); Potassium 3.9 mEq/L (3.6-5.0); Sodium Level 137 mEq/L (135-145)
[2017-10-02 07:10] LABS: Bicarbonate 27 mEq/L (21-31)
[2017-10-02] MEDS: INSULIN -REGULAR HUMAN 50 UNIT/0.5 ML ML SQ SCH ×2 (07:30→12:40)
[2017-10-02] MEDS ORDERED: SERTRALINE HCL 50 MG TAB PO SCH (09:00)
[2017-10-02] MEDS: GLIMEPIRIDE 2 MG TABLET PO SCH (09:11)
[2017-10-02] MEDS: ENOXAPARIN 40 MG/0.4 ML SQ SCH (09:11)
[2017-10-02] MEDS: CIPROFLOXACIN 400mg IV 400 MG/200 ML BAG IV SCH (09:12)
[2017-10-02 12:19] VITALS: O2SAT 92
[2017-10-02 12:23] VITALS: BP 122/69; TEMP 98.9
--- NOTE | 2017-10-02 14:33 | PN ---
Subjective: The patient seen and examined, chart reviewed, and case discussed with RN. The patient having some pain and nausea with her breakfast. Review of Systems: Negative except as above. Medications: Reviewed. Physical Examination: Vital Signs: Temperature 100.3, heart rate 87, blood pressure 136/71, respirations 18, and O2 92% on room air. General: Awake, alert, oriented x3, in some mild distress. Obese female. BMI 30. CV: S1 and S2. No murmurs. Peripheral pulses regular. Respiratory: Moving air well bilaterally. No wheezing. Gastrointestinal: Soft abdomen. Mild tenderness to palpation in the epigastric region in the left upper quadrant. No rebound or guarding. No palpable masses. Extremities: No clubbing, cyanosis, or edema. Neurologic: Nonfocal. Laboratory Data: Sodium 137, potassium 3.9, chloride 108, CO2 27, BUN 7, creatinine 0.54, glucose 110, calcium 8.4, and magnesium 1.8. Assessment: A 47-year-old female with; 1. Acute pancreatitis. Lipase and amylase levels have improved. Continue with IV fluid. The patient tolerating GI soft diet. 2. Acute diverticulitis. We will Continue antibiotics. 3. Diabetes mellitus type 2 with long-term use of insulin with hyperglycemia. Continue sliding scale insulin. 4. Obesity, body mass index 0. 5. Hypokalemia, replace and monitor. 6. Hypomagnesemia, replaced. We will continue to monitor. 7. Elevated liver enzymes, likely due to pancreatitis versus fatty liver infiltration. Plan: Continue pain medications and IV fluids. Advance diet as tolerated. Likely discharge in the next 24-48 hours if continues to improve. /MICHELLE Voice ID: [id number] Report ID: [id number] LAURENCE
--- NOTE | 2017-10-02 15:08 | P.DS ---
Admission Date: 09/30/17 Discharge Date: 10/02/17 Disposition: ROUTINE DISCHARGE Discharge Condition: GOOD Reason for Admission: abdominal pain - Problems (1) Diverticulitis Current Visit: Yes Status: Acute (2) Acute pancreatitis Onset Date: 10/01/17 Current Visit: Yes Status: Acute (3) Diabetes Onset Date: 10/01/17 Current Visit: Yes Status: Acute Qualifiers: Diabetes mellitus type: type 2 Diabetes mellitus intermediate designer insulin use: without intermediate designer use Diabetes mellitus complication status: with unspecified complications Qualified Code(s): E11.8 - Type 2 diabetes mellitus with unspecified complications Brief History of Present Illness: from H&P Ms Nance is a 47 years old woman with history of DM II, pancreatitis in the past, S/P cholecystectomy, presented to ED complaining of abdominal pain, starting 3 days ago. Her pain is located on epigastric area, radiated to LUQ and back. Intensity is 10/10. It is associated with nausea but not vomiting. She describe the pain as constant, dull, exacerbated with movements. She has this kind of pain in the past when she had pancreatitis. She denied fever but has had chills. According to her statement, last time she drink alcohol was 1 month ago. Lab work remarkable for normal WBC count, lipase elevation, hypokalemia and hypomagnesemia. Limited abd US shows no acute abnormalities. Hospital Course: Pt was admitted for abdominal pain. GI consulted. Ct showed diverticulitis. Clinically she also presented w pancreatitis. She was made NPO, IVFs were started and pain medication initiated. Abx were also started. She responded well to treatment. Her amylase, lipase normalized. Her pain improved. She was started on a clear liquid diet. She was counseled against etoh use. She voiced understanding. Pts diet was advanced. She tolerated her diet well. N/V and abd pain improved. GI recommended outpt f/up. Pt was DC home in a stable condition Vital Signs/Physical Exam: Temp Pulse Resp BP Pulse Ox 98.9 F 83 18 122/69 92 10/02/17 12:00 10/02/17 12:00 10/02/17 12:00 10/02/17 12:00 10/02/17 12:00 Other Physical/Emotional Findings: please see progress note dictated on day of DC for physical exam findings Laboratory Data at Discharge: WBC 7.0 K/uL (4.3-10.9) D 10/01/17 05:40 Hgb 11.3 g/dL (12.0-15.0) L 10/01/17 05:40 Hct 34.4 % (36.0-45.0) L D 10/01/17 05:40 Plt Count 208 K/uL (152-406) D 10/01/17 05:40 PT 12.6 SECONDS (9.5-12.5) H 09/30/17 18:50 INR 1.07 09/30/17 18:50 APTT 26.3 SECONDS (24.3-36.9) 09/30/17 18:50 Sodium 137 mEq/L (135-145) 10/02/17 05:29 Potassium 3.9 mEq/L (3.6-5.0) 10/02/17 05:29 BUN 7 mg/dL (6-20) 10/02/17 05:29 Creatinine 0.54 mg/dL (0.44-1.00) 10/02/17 05:29 Glucose 110 mg/dL (65-120) 10/02/17 05:29 Magnesium 1.8 mg/dL (1.8-2.5) 10/02/17 05:29 Total Bilirubin 0.9 mg/dL (0.3-1.2) 10/01/17 05:49 AST 206 IU/L (10-42) H D 10/01/17 05:49 ALT 156 IU/L (10-60) H D 10/01/17 05:49 Alkaline Phosphatase 102 IU/L (42-121) 10/01/17 05:49 B-Natriuretic Peptide 21 pg/ml (<=100) 09/30/17 18:50 Triglycerides 90 mg/dL (35-160) 10/01/17 05:49 Cholesterol 146 mg/dL (<200) 10/01/17 05:49 HDL Cholesterol 43 mg/dL (29-89) 10/01/17 05:49 Cholesterol/HDL Ratio 3.40 10/01/17 05:49 Amylase 59 U/L (28-100) 10/01/17 05:49 Lipase 41 U/L (22-51) 10/01/17 05:49 Home Medications: Glimepiride [Amaryl] 1 tab PO BID 09/30/17 Metformin ER [Glucophage ER*] 2 tab PO BID 09/30/17 Sertraline [Zoloft*] 1 tab PO DAILY 09/30/17 Patient Discharge Instructions: f/up w PCP in 1 week. f/up w GI Dr. Cortez in 2 weeks. Return to ER for worsening condition. No etoh Diet: Axtell Activity: Ad kiara Time spent managing pt's care (in minutes): 33
== END 2017-10-02 16:10 | disposition home or self-care (01) | DRG 391 ==
LOC: ER 17:38 → ERHOLD 20:06 → 4TH 21:38
PROVIDERS: ADMIT Internal Medicine; ATTEND Internal Medicine
DX: K57.92 Diverticulitis of intestine, part unspecified, without perforation or abscess without bleeding (principal); K85.90 Acute pancreatitis without necrosis or infection, unspecified; E11.65 Type 2 diabetes mellitus with hyperglycemia; E87.6 Hypokalemia; Z79.4 Long term (current) use of insulin; R74.8 Abnormal levels of other serum enzymes; E83.42 Hypomagnesemia; E66.9 Obesity, unspecified; Z68.30 Body mass index [BMI] 30.0-30.9, adult
CPT/HCPCS: 36415; 71045; 74177; 76705; 80048; 80053; 80061; 80076; 81003; 82150; 82550; 82553; 82962; 83690; 83735; 83880; 84484; 85025; 85610; 85730; 96365; 96367; 96368; 96375; 99285; J0696; J0744; J1650; J2405; J3475; J7030; Q9967

== ENCOUNTER 2017-11-08 20:30 | Emergency (ER) | payer BC, SELFPAY ==
--- OUTSIDE RECORDS SUMMARY | 2017-11-08 20:32 | XMS REPORT ---
:1970 [facility] Address [address] Chang [address] [place] [address] Care Team Providers Name Role Phone VELÁSQUEZ, LIZZETTE PARRA Unavailable Unavailable Problems This patient has no known problems. Allergies, Adverse Reactions, Alerts This patient has no known allergies or adverse reactions. Medications This patient has no known medications. Results Test Description Test Time Test Comments Text Results Atomic Results Result Comments MM, STEREOTACTIC 2017-05-14 Reason for Addendum BeginsMRN#: BIOPSY, BREAST, 15:59:00 Exam:->calcification [id number]: LEFT 05/14/2017 Lizzette Velásquez M.D. 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 Addendum EndsN#: [id number] - MM, STEREOTACTIC BIOPSY, BREAST, LEFTSTEREOTACTIC GUIDED [...] correct location, five specimens were obtained using [employer]IV[employer] device. A clip was inserted into the [...] the calcifications. Lizzette Velásquez M.D. pth/penrad:05/09/2017 11:07:57 Business Continuity Global Director: Felicia Rizzo RT(R)(M), [facility] [id number] UE EXAM 2017-05-12 Surgical Pathology Report 12:48:00 Case: [id number] Authorizing Provider: Lizzette Velásquez MD Collected: 05/09/2017 1110 Ordering Location: [facility] Received: 05/09/2017 1312 Pathologist: Jackie Maradiaga MD Specimen: Breast, Left, LEFT MIDDLE 12 BREAST CALCIFICATION BREAST, LEFT, MIDDLE 12 O'CLOCK, CALCIFICATIONS, STEREOTACTIC CORE NEEDLE BIOPSY: - HYALINIZED FIBROADENOMA - COLUMNAR CELL HYPERPLASIA - COLUMNAR CELL CHANGES - MICROCALCIFICATIONS, COARSE, ASSOCIATED WITH FIBROADENOMA Signing Pathologist Direct Phone Line: [phone] signed by Jackie Maradiaga MD on 05/12/2017 at 12:48 PMIn the sections examined, no atypical hyperplasia or carcinoma is identified.[id number] lesion Left middle 12 o'clock breast calcifications The specimen is received in a formalin-filled container labeled with the patient's information and labeled "left middle 12 o'clock breast calcifications" and consists of multiple yellow-white breast core biopsies ranging in length from 0.6 to 2.5 cm.Ink code: Black.The specimen is submitted entirely in A1 and A2. CG/ewPerformed.[facility], Department of Pathology, [address] [place] [address], [place] [address], MM, DIGITAL, 2017-05-09 Left breast #[id number] - UNILATERAL, 11:07:00 calcifications MM, DIGITAL, UNILATERAL, CONFER MARTA, CONFER MARTA, [...] pathology results. Lizzette Velásquez M.D. pth/:05/09/2017 11:07:15 Business Continuity Global Director: Felicia IRVIN (R)), [facility] Mammogram BI-RADS: Post-procedure mammogram for marker placement [id number] [place], 2017-05-09 Reason for exam:->Left #[id number] - SPECIMEN, 11:06:00 breast calcifications MM, MAMMO, SPECIMEN, RADIOGRAPH, LEFT RADIOGRAPH, LEFTSPECIMEN LEFT BREAST: 05/09/2017Five stereotactic guided biopsy specimens were imaged for the area of calcifications located in the left breast at 12 o'clock middle depth. IMPRESSION: SPECIMENThe imaged specimens includes the calcifications. Lizzette Velásquez M.D. pth/:05/09/2017 11:06:40 Business Continuity Global Director: Felicia SCHNEIDER)(M), [facility] [id number]
--- OUTSIDE RECORDS SUMMARY | 2017-11-08 20:32 | XMS REPORT | Clinical Summary ---
:1970 Author Organization [facility] Address [address] [place] [address] Phone Care Team Providers Name Role Phone [...] Date Type Specialty Care Team Description 05/09/2017 [facility] Lizzette Velásquez Breast microcalcifications Encounter MD Asaf Grossman Bertram Iheanyichukwu, MD 05/06/2017 Outside Orders [facility] VelásquezLizzette Breast microcalcifications Scheduling MD Chauncey (Primary Dx) after 11/07/2016 Social History Tobacco Use Types Packs/Day Years Used Date Never Smoker Smokeless Tobacco: Never Used Sex Assigned at Date Recorded Not on file Last Filed Vital Signs Vital Sign Reading Time Taken Blood Pressure 116/75 05/09/2017 10:42 AM STRIPPER APPRENTICE Pulse 86 05/09/2017 10:42 AM STRIPPER APPRENTICE Temperature 36.2 C (97.1 F) 05/09/2017 9:20 AM STRIPPER APPRENTICE Respiratory Rate 18 05/09/2017 10:42 AM STRIPPER APPRENTICE Oxygen Saturation 97% 05/09/2017 10:42 AM STRIPPER APPRENTICE Inhaled Oxygen Concentration - - Weight 77.1 kg (170 lb) 05/09/2017 9:20 AM STRIPPER APPRENTICE Height 162.6 cm (5' 4") 05/09/2017 9:20 AM STRIPPER APPRENTICE Body Mass Index 29.18 05/09/2017 9:20 AM STRIPPER APPRENTICE Plan of Treatment Not on file Results Tissue Exam (05/09/2017 11:10 AM) Component Value Ref Range Case Report Surgical Pathology Report Case: [id number] Authorizing Provider:Lizzette Velásquez MDCollected: 05/09/2017 1110 [facility] Center[facility]: 05/09/2017 1312 Pathologist: Jackie Maradiaga MD Specimen:Breast, Left, LEFT MIDDLE 12 BREAST CALCIFICATION DIAGNOSIS BREAST, LEFT, MIDDLE 12 O'CLOCK,CALCIFICATIONS, STEREOTACTIC CORE NEEDLE BIOPSY: - HYALINIZED FIBROADENOMA - COLUMNAR CELL HYPERPLASIA - COLUMNAR CELL CHANGES - MICROCALCIFICATIONS, COARSE,ASSOCIATED WITH FIBROADENOMA Signing Pathologist Direct Phone Line: [phone] COMMENT In the sections examined, no atypical hyperplasia or carcinoma is identified. CPT Code(s) 69188 CLINICAL HISTORY Sclerosing lesion SPECIMEN SOURCE Left middle 12 o clock breast calcifications GROSS DESCRIPTION The specimen is received in a formalin-filled container labeled with the patient s information and labeled left middle 12 o clock breast calcifications and consists of multiple yellow-white br east core biopsies ranging in length from 0.6 to 2.5 cm. Ink code: Black. The specimen is submitted entirely in A1 and A2. CG/ew MICROSCOPIC DESCRIPTION Performed. Professional component was performed [facility], at Department of Pathology, [address] [place] [address], [place] [address], Specimen Performing Laboratory Tissue - Breast, Left [address] [address] MM Breast Specimen Radiograph Left (05/09/2017 10:30 AM) Specimen Performing Laboratory GE RIS Narrative #[id number] - MM, MAMMO, SPECIMEN, RADIOGRAPH, LEFT SPECIMEN LEFT BREAST: 05/09/2017 Five stereotactic guided biopsy specimens were imaged for the area of calcifications located in the left breast at 12 o'clock middle depth. IMPRESSION: SPECIMEN The imaged specimens includes the calcifications. Lizzette Velásquez M.D. pth/:05/09/2017 11:06:40 Hat Cutter: Felicia BELLA (R)(Phil), [facility] [id number] Procedure Note Interface, External Ris In - 05/09/2017 11:46 AM STRIPPER APPRENTICE #[id number] - MM, MAMMO, SPECIMEN, RADIOGRAPH, LEFT SPECIMEN LEFT BREAST: 05/09/2017 Five stereotactic guided biopsy specimens were imaged for the area of calcifications located in the left breast at 12 o'clock middle depth. IMPRESSION: SPECIMEN The imaged specimens includes the calcifications. Lizzette Velásquez M.D. pth/:05/09/2017 11:06:40 Hat Cutter: Felicia BELLA (R)(Phil), [facility] [id number] , DIGITAL, UNILATERAL, CONFER MARTA, MAMMO, LEFT (05/09/2017 10:00 AM) Specimen Performing Laboratory GE RIS Narrative #[id number] - MM, DIGITAL, UNILATERAL, CONFER MARTA, MAMMO, [...] pathology results. Lizzette Velásquez M.D. pth/:05/09/2017 11:07:15 Hat Cutter: Felicia IRVIN (R)), [facility] Mammogram BI-RADS: Post-procedure mammogram for marker placement [id number] Procedure Note Interface, External Ris In - 05/09/2017 11:46 AM STRIPPER APPRENTICE #[id number] - MM, DIGITAL, UNILATERAL, CONFER MARTA, MAMMO, [...] pathology results. Lizzette Velásquez M.D. pth/:05/09/2017 11:07:15 Hat Cutter: Felicia Rizzo RT(R)(M), [facility] Mammogram BI-RADS: Post-procedure mammogram for marker placement [id number] Stereotactic breast biopsy left (05/09/2017 9:45 AM) Specimen Performing Laboratory GE [employer] Narrative Addendum Begins AMENDMENT: 05/14/2017 Lizzette Velásquez M.D. Pathology results are now available and demonstrate hyalinized fibroadenoma. This is concordant with the imaging findings. Addendum Ends #[id number] - MM, STEREOTACTIC BIOPSY, BREAST, LEFT STEREOTACTIC [...] correct location, five specimens were obtained using Houseboat Resort Club[employer]A device.A clip was inserted into the biopsy [...] the calcifications. Lizzette Velásquez M.D. pth/penrad:05/09/2017 11:07:57 Hat Cutter: Felicia BELLA(R)(M), [facility] [id number] Procedure Note Interface, External Ris In - 05/14/2017 4:32 PM STRIPPER APPRENTICE Addendum Begins AMENDMENT: 05/14/2017 Lizzette Velásquez M.D. Pathology results are now available and demonstrate hyalinized fibroadenoma. This is concordant with the imaging findings. Addendum Ends #[id number] - MM, STEREOTACTIC BIOPSY, BREAST, LEFT STEREOTACTIC [...] correct location, five specimens were obtained using [employer] EVIVA device. A clip was inserted into [...] the calcifications. Lizzette Velásquez M.D. pth/penrad:05/09/2017 11:07:57 Hat Cutter: Felicia BELLA(Linda)(M), [facility] [address] after 11/07/2016
[2017-11-08] MEDS ORDERED: FENTANYL CITR 100 MCG/2 ML ONE (21:28)
[2017-11-08] MEDS ORDERED: NA CHLORIDE 0.9% 1,000 ML ONE (21:28)
[2017-11-08 21:34] LABS: Urine Blood TRACE (NEG); Urine Glucose 2+ (NEG); Urine Protein NEGATIVE (NEG); Urine Specific Gravity 1.015 (1.005-1.030); Urine pH 5.5 (5.0-7.0)
[2017-11-08 21:47] LABS: Absolute Lymphocytes (CBC) 2.5 K/uL (0.7-4.9); Absolute Monocytes 0.5 K/uL (0.1-1.3); Absolute Neutrophil 6.5 K/uL (1.8-8.0); Basophils % 0.3 % (0-1.3); Eosinophils % 1.4 % (0-4.4); Hematocrit 40.1 % (36.0-45.0); Lymphocytes % 25.8 % (15.3-44.8); MCH 29.4 pg (27.0-35.0); MCV 88.6 fL (80-100); Monocytes % 5.6 % (3.3-12.3); RBC Red Blood Cell Count 4.52 M/uL (3.86-4.86)
[2017-11-08 21:49] LABS: Bicarbonate 30 mEq/L (21-31); Glucose Level 246 mg/dL (65-120); Lipase 64 U/L (22-51); Potassium 3.5 mEq/L (3.6-5.0); Sodium Level 134 mEq/L (135-145)
[2017-11-08 21:51] LABS: Urine Bacteria 20-50 /HPF (<20); Urine Culture Reflex Order REFLEXED; Urine RBC <5 /HPF (NONE SEEN)
[2017-11-08 21:56] LABS: ALT/SGPT 28 IU/L (10-60); AST/SGOT 33 IU/L (10-42); Albumin 4.1 g/dL (3.2-5.5); Alkaline Phosphatase 98 IU/L (42-121); Amylase Level 95 U/L (28-100); BUN Blood Urea Nitrogen 11 mg/dL (6-20); Bilirubin Direct 0.1 mg/dL (0-0.2); Bilirubin Total 0.4 mg/dL (0.3-1.2); Protein, Total 7.8 g/dL (6.0-8.3)
[2017-11-08] MEDS ORDERED: CIPROFLOXACIN HCL 500 MG TAB ONE (23:30)
[2017-11-08] MEDS ORDERED: metroNIDAZOLE 500 MG TABLET ONE (23:30)
--- NOTE | 2017-11-08 23:35 | ER ---
Nurse's Notes [facility] Name: Dena Nance Age: 47 yrs Sex: Female : 1970 Arrival Date: 11/08/2017 Time: 20:32 Bed 26 Private MD: Diagnosis: Lower abdominal pain, unspecified;Urinary tract infection, site not specified Presentation: 11/08 20:35 Presenting complaint: Patient states: epigastric pain radiating to LUQ starting this la1 afternoon, pt reports diarrhea, denies N/v, reports hx of pancreatitis and diverticulitis. denies blood in stool. Transition of care: patient was not received from another setting of care. Onset of symptoms was November 08, 2017. Initial Sepsis Screen: Does the patient meet any 2 criteria? No. Patient's initial sepsis screen is negative. Does the patient have a suspected source of infection? No. Patient's initial sepsis screen is negative. Care prior to arrival: None. 20:35 Method Of Arrival: Ambulatory la1 20:35 Acuity: MARIANA 3 la1 EMERGENCY NURSE: 23:49 LMP N/A - Post-menopause tl3 Historical: - Allergies: 20:36 NKA; la1 - Home Meds: 23:50 glimepiride 4 mg Oral tab twice a day [Active]; metformin 1,000 mg Oral tab 2 times per tl3 day [Active]; gabapentin 300 mg Oral cap 1 cap nightly [Active]; sertraline 50 mg Oral tab 1 tab once daily [Active]; - PMHx: 20:36 Diabetes - NIDDM; fatty liver; Pancreatitis; Diverticulitis; la1 - PSHx: 23:51 Hysterectomy; Cholecystectomy; tl3 - Immunization history:: Adult Immunizations up to date. - Social history:: Smoking status: Patient/guardian denies using tobacco. Screenin:40 Abuse screen: Denies threats or abuse. Nutritional screening: No deficits noted. tl3 Tuberculosis screening: No symptoms or risk factors identified. Fall Risk None identified. Assessment: 20:40 Reassessment: pt reports that abdominal pain started this morning at 11am, and has been tl3 getting progressively worse all day. General: Appears distressed, uncomfortable, well groomed, well developed, well nourished, Behavior is calm, cooperative, appropriate for age. Pain: Complains of pain in left upper quadrant and left lower quadrant Pain currently is 10 out of 10 on a pain scale. Neuro: Level of Consciousness is awake, alert, obeys commands, Oriented to person, place, time, situation, Appropriate for age. Cardiovascular: Heart tones S1 S2 present Capillary refill < 3 seconds in bilateral fingers. Respiratory: Airway is patent Trachea midline Respiratory effort is even, unlabored, Respiratory pattern is regular, symmetrical, Breath sounds are clear bilaterally. GI: Reports diarrhea. : No signs and/or symptoms were reported regarding the genitourinary system. Urine is clear. EENT: No signs and/or symptoms were reported regarding the EENT system. Derm: No signs and/or symptoms reported regarding the dermatologic system. Musculoskeletal: No signs and/or symptoms reported regarding the musculoskeletal system. 21:38 Reassessment: Patient appears in no apparent distress at this time. No changes from tl3 previously documented assessment. Patient and/or family updated on plan of care and expected duration. Pain level reassessed. Patient is alert, oriented x 3, equal unlabored respirations, skin warm/dry/pink. Iv infusing without difficulty, pt resting, at bedside. 23:46 Reassessment: Patient appears in no apparent distress at this time. No changes from tl3 previously documented assessment. Patient and/or family updated on plan of care and expected duration. Pain level reassessed. Patient is alert, oriented x 3, equal unlabored respirations, skin warm/dry/pink. Vital Signs: 20:36 BP 127 / 58; Pulse 91; Resp 19; Temp 97.5; Pulse Ox 100% on R/A; Weight 72.57 kg; la1 Height 5 ft. 4 in. (162.56 cm); 20:40 BP 124 / 64; Pulse 84; Resp 16; Pulse Ox 95% ; tl3 21:38 BP 126 / 80; Pulse 80; Resp 16; Pulse Ox 99% on R/A; tl3 23:46 BP 128 / 64; Pulse 76; Resp 18; Pulse Ox 97% ; tl3 20:36 Body Mass Index 27.46 (72.57 kg, 162.56 cm) la1 ED Course: 20:32 Patient arrived in ED. ds1 20:36 Triage completed. la1 20:37 Arm band placed on right wrist. la1 20:39 Lexis Bell, SHADE is Primary Nurse. tl3 20:40 No provider procedures requiring assistance completed. Inserted saline lock: in left tl3 antecubital area, using aseptic technique. Blood collected. 20:42 Paige Meier [facility]-C [facility]. snw 20:42 Brian Cannon MD is Attending Physician. snw 23:46 Patient has correct armband on for positive identification. Bed in low position. Call tl3 light in reach. Side rails up X 1. 23:46 IV discontinued, intact, bleeding controlled, No redness/swelling at site. Pressure tl3 dressing applied. Administered Medications: 21:33 Drug: NS 0.9% 1000 ml Route: IV; Rate: 125 ml/hr; Site: left antecubital; Delivery: tl3 Primary tubing; 23:45 Follow up: IV Status: Completed infusion; IV Intake: 500ml tl3 21:34 Drug: fentaNYL (PF) 25 mcg Route: IVP; Infused Over: 3 mins; Site: left antecubital; tl3 22:10 Follow up: Response: No adverse reaction; Pain is decreased tl3 23:34 Drug: Cipro 500 mg Route: PO; rk2 23:51 Follow up: Response: Medication administered at discharge. tl3 23:34 Drug: Flagyl 500 mg Route: PO; rk2 23:51 Follow up: Response: Medication administered at discharge. tl3 23:34 Drug: fentaNYL (PF) 25 mcg Route: IVP; Site: left antecubital; rk2 23:52 Follow up: Response: Medication administered at discharge. tl3 Intake: 23:45 IV: 500ml; Total: 500ml. tl3 Outcome: 23:34 Discharge ordered by . snw 23:46 Discharged to home ambulatory. tl3 23:46 Condition: stable 23:46 Discharge instructions given to patient, family, Instructed on discharge instructions, follow up and referral plans. medication usage, Demonstrated understanding of instructions, follow-up care, medications. 23:52 Patient left the ED. tl3 Signatures: Paige Meier FNP-C TESTER WAFER SUBSTRATE-Csnw Karina Tejada1 Reggie Siddiqi RN RN la1 Ramandeep Jauregui RN RN rk2 Lexis Bell RN RN tl3
--- NOTE | 2017-11-08 23:35 | EDPHYS ---
Physician Documentation [facility] Name: Dena Nance Age: 47 yrs Sex: Female : 1970 Arrival Date: 11/08/2017 Time: 20:32 Bed 26 Private MD: ED Physician Brian Cannon HPI: 11/08 20:57 This 47 yrs old Female presents to ER via Ambulatory with complaints of snw Abdominal Pain. 20:57 The patient presents with abdominal pain in the left lower quadrant. Onset: The snw symptoms/episode began/occurred suddenly, and became worse. The symptoms do not radiate. Associated signs and symptoms: Pertinent positives: diarrhea. The symptoms are described as sharp. Modifying factors: The symptoms are alleviated by nothing. Severity of pain: At its worst the pain was moderate severe. The patient has experienced similar episodes in the past, several times. was supposed to have seen Dr. Barber for colonoscopy last week. Pt states it cost too much and was hoping her previous diverticulitis would not bother her again. 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 - Social history:: Smoking status: Patient/guardian denies using tobacco. ROS: 20:54 Constitutional: Negative for fever, chills, and weight loss, Eyes: Negative for injury, snw pain, redness, and discharge, ENT: Negative for injury, pain, and discharge, Neck: Negative for injury, pain, and swelling, Cardiovascular: Negative for chest pain, palpitations, and edema, Respiratory: Negative for shortness of breath, cough, wheezing, and pleuritic chest pain, Back: Negative for injury and pain, : Negative for injury, bleeding, discharge, and swelling, MS/Extremity: Negative for injury and deformity, Skin: Negative for injury, rash, and discoloration, Neuro: Negative for headache, weakness, numbness, tingling, and seizure. 20:54 Abdomen/GI: Positive for abdominal pain, nausea, diarrhea. Exam: 20:54 Constitutional: This is a well developed, well nourished patient who is awake, alert, snw and in no acute distress. Head/Face: Normocephalic, atraumatic. Eyes: Pupils equal round and reactive to light, extra-ocular motions intact. Lids and lashes normal. Conjunctiva and sclera are non-icteric and not injected. Cornea within normal limits. Periorbital areas with no swelling, redness, or edema. ENT: Nares patent. No nasal discharge, no septal abnormalities noted. Tympanic membranes are normal and external auditory canals are clear. Oropharynx with no redness, swelling, or masses, exudates, or evidence of obstruction, uvula midline. Mucous membranes moist. Neck: Trachea midline, no thyromegaly or masses palpated, and no cervical lymphadenopathy. Supple, full range of motion without nuchal rigidity, or vertebral point tenderness. No Meningismus. Chest/axilla: Normal chest wall appearance and motion. Nontender with no deformity. No lesions are appreciated. Cardiovascular: Regular rate and rhythm with a normal S1 and S2. No gallops, murmurs, or rubs. Normal PMI, no JVD. No pulse deficits. Respiratory: Lungs have equal breath sounds bilaterally, clear to auscultation and percussion. No rales, rhonchi or wheezes noted. No increased work of breathing, no retractions or nasal flaring. Back: No spinal tenderness. No costovertebral tenderness. Full range of motion. Skin: Warm, dry with normal turgor. Normal color with no rashes, no lesions, and no evidence of cellulitis. MS/ Extremity: Pulses equal, no cyanosis. Neurovascular intact. Full, normal range of motion. Neuro: Awake and alert, GCS 15, oriented to person, place, time, and situation. Cranial nerves II-XII grossly intact. Motor strength 5/5 in all extremities. Sensory grossly intact. Cerebellar exam normal. Normal gait. Psych: Awake, alert, with orientation to person, place and time. Behavior, mood, and affect are within normal limits. 20:54 Abdomen/GI: Inspection: abdomen appears normal, Bowel sounds: normal, Palpation: moderate abdominal tenderness, severe abdominal tenderness, in the left lower quadrant. Vital Signs: 20:36 BP 127 / 58; Pulse 91; Resp 19; Temp 97.5; Pulse Ox 100% on R/A; Weight 72.57 kg; la1 Height 5 ft. 4 in. (162.56 cm); 20:40 BP 124 / 64; Pulse 84; Resp 16; Pulse Ox 95% ; tl3 21:38 BP 126 / 80; Pulse 80; Resp 16; Pulse Ox 99% on R/A; tl3 23:46 BP 128 / 64; Pulse 76; Resp 18; Pulse Ox 97% ; tl3 20:36 Body Mass Index 27.46 (72.57 kg, 162.56 cm) la1 MDM: 20:47 Patient medically screened. snw 20:55 Data reviewed: vital signs, nurses notes. Data interpreted: Pulse oximetry: on room air snw is 100 %. Interpretation: normal. Counseling: I had a detailed discussion with the patient and/or guardian regarding: the historical points, exam findings, and any diagnostic results supporting the discharge/admit diagnosis, lab results. ED course: Pt sees Dr. Arreguin and Dr. Barber. Dr. Barber was to perform a colonoscopy on the but the co-pay was cost prohibitive. 05 20:52 Order name: Amylase, Serum; Complete Time: 22:08 w 11/08 20:52 Order name: Basic Metabolic Panel; Complete Time: 22:08 w 11/08 20:52 Order name: CBC with Diff; Complete Time: 22:08 snw 11/08 20:52 Order name: Creatinine for Radiology; Complete Time: 22:08 snw 11/08 20:52 Order name: Hepatic Function; Complete Time: 22:08 w 11/08 20:52 Order name: Lipase; Complete Time: 22:08 snw 11/08 20:52 Order name: Urine Microscopic Only; Complete Time: 22:08 snw 11/08 21:21 Order name: Urine Dipstick--Ancillary (enter results); Complete Time: 22:08 [facility] 11/08 21:21 Order name: Urine --Ancillary (enter results); Complete Time: 22:08 [facility] 11/08 21:51 Order name: Urine Culture EDMS 11/08 20:52 Order name: IV Saline Lock; Complete Time: 21:34 snw 11/08 20:52 Order name: Labs collected and sent; Complete Time: 21:34 snw 11/08 20:52 Order name: Urine Dipstick-Ancillary (obtain specimen); Complete Time: 21:34 snw Administered Medications: 21:33 Drug: NS 0.9% 1000 ml Route: IV; Rate: 125 ml/hr; Site: left antecubital; Delivery: tl3 Primary tubing; 23:45 Follow up: IV Status: Completed infusion; IV Intake: 500ml tl3 21:34 Drug: fentaNYL (PF) 25 mcg Route: IVP; Infused Over: 3 mins; Site: left antecubital; tl3 22:10 Follow up: Response: No adverse reaction; Pain is decreased tl3 23:34 Drug: Cipro 500 mg Route: PO; rk2 23:51 Follow up: Response: Medication administered at discharge. tl3 23:34 Drug: Flagyl 500 mg Route: PO; rk2 23:51 Follow up: Response: Medication administered at discharge. tl3 23:34 Drug: fentaNYL (PF) 25 mcg Route: IVP; Site: left antecubital; rk2 23:52 Follow up: Response: Medication administered at discharge. tl3 Disposition: 11/09 01:52 Co-signature as Attending Physician, Brian Cannon MD. ma2 Disposition: 11/08/17 23:34 Discharged to Home. Impression: Lower abdominal pain, unspecified, Urinary tract infection, site not specified. - Condition is Stable. - Discharge Instructions: Abdominal Pain, Adult, Urinary Tract Infection. - Prescriptions for Bentyl 20 mg Oral Tablet - take 1 tablet by ORAL route every 6 hours As needed; 20 tablet. Flagyl 500 mg Oral Tablet - take 1 tablet by ORAL route every 8 hours for 10 days; 30 tablet. Cipro 500 mg Oral Tablet - take 1 tablet by ORAL route every 12 hours for 7 days; 14 tablet. - Medication Reconciliation Form, Thank You Letter, Antibiotic Education, Prescription Opioid Use form. - Follow up: Private Physician; When: 2 - 3 days; Reason: Recheck today's complaints, Continuance of care, Re-evaluation by your physician. Follow up: Emergency Department; When: As needed; Reason: Worsening of condition. Signatures: Dispatcher [employer] EDMS Paige Meier, PROCESS TANK TENDER-C PROCESS TANK TENDER-Csnw Reggie Siddiqi RN RN la1 Brian Cannon MD MD ma2 Ramandeep Jauregui RN RN rk2 Lexis Bell RN RN tl3 Corrections: (The following items were deleted from the chart) 11/08 23:52 23:34 11/08/2017 23:34 Discharged to Home. Impression: Lower abdominal pain, tl3 unspecified; Urinary tract infection, site not specified. Condition is Stable. Forms are Medication Reconciliation Form, Thank You Letter, Antibiotic Education, Prescription Opioid Use. Follow up: Private Physician; When: 2 - 3 days; Reason: Recheck today's complaints, Continuance of care, Re-evaluation by your physician. Follow up: Emergency Department; When: As needed; Reason: Worsening of condition. snw
[2017-11-09 00:25] VITALS: TEMP 97.5
[2017-11-09 00:28] VITALS: BP 128/64; O2SAT 97
== END 2017-11-08 23:52 | disposition home or self-care (01) ==
LOC: ER 20:30
DX: N39.0 Urinary tract infection, site not specified (principal); E11.9 Type 2 diabetes mellitus without complications
CPT/HCPCS: 36415; 80048; 80076; 81003; 81015; 81025; 82150; 83690; 85025; 87040; 87086; 87088; 96361; 96374; 99284; J3010; J7030

== ENCOUNTER 2018-03-27 21:36 | Emergency (ER) | payer BC, OTHER ==
--- OUTSIDE RECORDS SUMMARY | 2018-03-27 21:38 | XMS REPORT ---
:1970 [facility] Address [address] Chang [address] [place] [id number] Care Team Providers Name Role Phone VELÁSQUEZ, LIZZETTE PARRA Unavailable Unavailable Problems This patient has no known problems. Allergies, Adverse Reactions, Alerts This patient has no known allergies or adverse reactions. Medications This patient has no known medications. Results Test Description Test Time Test Comments Text Results Atomic Results Result Comments MM, STEREOTACTIC 2017-05-14 Reason for Addendum BeginsMRN#: BIOPSY, BREAST, 15:59:00 Exam:->calcification [id number]: LEFT 05/14/2017 Lizzette Velásquez M.D. 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 Addendum EndsN#: [id number] - MM, STEREOTACTIC BIOPSY, BREAST, LEFTSTEREOTACTIC GUIDED [...] correct location, five specimens were obtained using Oomnitza device. A clip was inserted into the [...] the calcifications. Lizzette Velásquez M.D. pth/penrad:05/09/2017 11:07:57 [employer] Founder: Felicia Rizzo RT(Linda)(M), Formerly [facility], [facility] [id number] UE EXAM 2017-05-12 Surgical Pathology Report 12:48:00 Case: [id number] Authorizing Provider: Lizzette Velásquez MD Collected: 05/09/2017 1110 Ordering Location: [facility] Received: 05/09/2017 1312 Pathologist: Jackie Maradiaga MD Specimen: Breast, Left, LEFT MIDDLE 12 BREAST CALCIFICATION BREAST, LEFT, MIDDLE 12 O'CLOCK, CALCIFICATIONS, STEREOTACTIC CORE NEEDLE BIOPSY: - HYALINIZED FIBROADENOMA - COLUMNAR CELL HYPERPLASIA - COLUMNAR CELL CHANGES - MICROCALCIFICATIONS, COARSE, ASSOCIATED WITH FIBROADENOMA Signing Pathologist Direct Phone Line: [phone] signed by Jackie Maradiaga MD on 05/12/2017 at 12:48 PMIn the sections examined, no atypical hyperplasia or carcinoma is identified.[id number] lesion Left middle 12 o'clock breast calcifications The specimen is received in a formalin-filled container labeled with the patient's information and labeled "left middle 12 o'clock breast calcifications" and consists of multiple yellow-white breast core biopsies ranging in length from 0.6 to 2.5 cm.Ink code: Black.The specimen is submitted entirely in A1 and A2. CG/ewPerformed.[facility], Department of Pathology, [address] [place] [address], [place] [address], MM, DIGITAL, 2017-05-09 Left breast #[id number] - UNILATERAL, 11:07:00 calcifications MM, DIGITAL, UNILATERAL, [...] pathology results. Lizzette Velásquez M.D. pth/:05/09/2017 11:07:15 [employer] Founder: Felicia SCHNEIDER)(Phil), Formerly [facility] Mammogram BI-RADS: Post-procedure mammogram for marker placement [id number] , MAMMO, 2017-05-09 Reason for exam:->Left #[id number] - SPECIMEN, 11:06:00 breast calcifications MM, MAMMO, SPECIMEN, RADIOGRAPH, LEFT RADIOGRAPH, LEFTSPECIMEN LEFT BREAST: 05/09/2017Five stereotactic guided biopsy specimens were imaged for the area of calcifications located in the left breast at 12 o'clock middle depth. IMPRESSION: SPECIMENThe imaged specimens includes the calcifications. Lizzette Velásquez M.D. pth/:05/09/2017 11:06:40 [employer] Founder: Felicia BELLA(R)(M), Formerly [facility] [id number]
[2018-03-27 22:15] LABS: Absolute Lymphocytes (CBC) 2.8 K/uL (0.7-4.9); Absolute Monocytes 0.4 K/uL (0.1-1.3); Absolute Neutrophil 6.7 K/uL (1.8-8.0); Basophils % 0.7 % (0-1.3); Eosinophils % 4.3 % (0-4.4); Hematocrit 38.7 % (36.0-45.0); Lymphocytes % 26.7 % (15.3-44.8); MCH 30.4 pg (27.0-35.0); Monocytes % 4.2 % (3.3-12.3)
[2018-03-27 22:34] LABS: ALT/SGPT 39 U/L (12-78); AST/SGOT 29 U/L (15-37); Albumin 3.5 g/dL (3.4-5.0); Alkaline Phosphatase 112 U/L (45-117); BUN Blood Urea Nitrogen 14 mg/dL (7-18); Bicarbonate 31 mmol/L (21-32); Bilirubin Direct < 0.1 mg/dL (0-0.2); Bilirubin Total 0.2 mg/dL (0.2-1.0); Glucose Level 337 mg/dL (74-106); Lipase 133 U/L (73-393); Magnesium 2.1 mg/dL (1.8-2.4); Potassium 3.5 mmol/L (3.5-5.1); Protein, Total 7.7 g/dL (6.4-8.2); Sodium Level 140 mmol/L (136-145)
[2018-03-27] MEDS ORDERED: NA CHLORIDE 0.9% 500 ML ONE (23:38)
[2018-03-27] MEDS ORDERED: INSULIN -REGULAR HUMAN 50 UNIT/0.5 ML ML ONE (23:38)
[2018-03-27 23:46] LABS: Urine Blood NEGATIVE (NEG); Urine Glucose 2+ (NEG); Urine Protein NEGATIVE (NEG); Urine pH 6.5 (5.0-7.0)
[2018-03-28] MEDS ORDERED: FENTANYL CITR 100 MCG/2 ML ONE (00:28)
--- NOTE | 2018-03-28 02:00 | EDPHYS ---
Physician Documentation [facility] Name: Dena Nance Age: 48 yrs Sex: Female : 1970 Arrival Date: 03/27/2018 Time: 21:38 Bed 30 Private MD: Mason Arreguin ED Physician Ricardo Araiza HPI: 03/27 21:54 This 48 yrs old Female presents to ER via Ambulatory with complaints of cp Abdominal Swelling. 21:54 The patient presents with abdominal pain in the upper abdomen, abdominal distention cp that is diffuse. 21:55 Onset: The symptoms/episode began/occurred 3 day(s) ago. The symptoms radiate to cp Associated signs and symptoms: Pertinent positives: nausea, palpitations, Pertinent negatives: blood in stools, chest pain, constipation, diarrhea, fever. 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 - Social history:: Smoking status: Patient/guardian denies using tobacco. - Ebola Screening: : Patient negative for fever greater than or equal to 101.5 degrees Fahrenheit, and additional compatible Ebola Virus Disease symptoms Patient denies exposure to infectious person Patient denies travel to an Ebola-affected area in the 21 days before illness onset No symptoms or risks identified at this time. ROS: 22:00 Constitutional: Negative for body aches, chills, fever, poor PO intake. cp 22:00 Eyes: Negative for injury, pain, redness, and discharge. cp 22:00 ENT: Negative for drainage from ear(s), ear pain, sore throat, difficulty swallowing, difficulty handling secretions. 22:00 Cardiovascular: Negative for chest pain, edema, palpitations. 22:00 Respiratory: Negative for cough, shortness of breath, wheezing. 22:00 Abdomen/GI: Positive for abdominal pain, nausea, abdominal distension, Negative for vomiting, diarrhea, constipation, black/tarry stool, rectal pain, rectal bleeding. 22:00 Back: Negative for injury or acute deformity, decreased range of motion. 22:00 : Negative for urinary symptoms, vaginal bleeding, vaginal discharge. 22:00 Skin: Negative for cellulitis, rash. 22:00 Neuro: Negative for altered mental status, dizziness, headache, syncope, near syncope, weakness. 22:00 All other systems are negative. Exam: 22:05 Constitutional: The patient appears in no acute distress, alert, awake, cp non-diaphoretic, non-toxic, well developed, well nourished, uncomfortable. 22:05 Head/Face: Normocephalic, atraumatic. Eyes: Pupils equal round and reactive to light, cp extra-ocular motions intact. Lids and lashes normal. Conjunctiva and sclera are non-icteric and not injected. Cornea within normal limits. Periorbital areas with no swelling, redness, or edema. ENT: Nares patent. No nasal discharge, no septal abnormalities noted. Tympanic membranes are normal and external auditory canals are clear. Oropharynx with no redness, swelling, or masses, exudates, or evidence of obstruction, uvula midline. Mucous membranes moist. 22:05 Neck: External neck: is normal, ROM/movement: is normal, is supple, without pain, no range of motions limitations, no nuchal rigidity. 22:05 Chest/axilla: Inspection: normal, Palpation: is normal, no crepitus, no tenderness. 22:05 Cardiovascular: Rate: normal, Rhythm: regular, Heart sounds: murmur, not appreciated, Edema: is not appreciated, JVD: is not appreciated. 22:05 Respiratory: the patient does not display signs of respiratory distress, Respirations: normal, no use of accessory muscles, no retractions, no splinting, no tachypnea, labored breathing, is not present, Breath sounds: are clear throughout, no decreased breath sounds, no stridor, no wheezing. 22:05 Abdomen/GI: Inspection: distension, obese Bowel sounds: active, all quadrants, Palpation: soft, in all quadrants, moderate abdominal tenderness, in all quadrants, rebound tenderness, is not appreciated, voluntary guarding, is elicited in all quadrants, involuntary guarding, is not appreciated. 22:05 Back: CVA tenderness, is absent. 22:05 Skin: cellulitis, is not appreciated, no rash present. 22:05 Neuro: Orientation: to person, place \T\ time. Mentation: is normal, Cerebellar function: is grossly normal, Motor: moves all fours, strength is normal. Vital Signs: 21:46 BP 119 / 57; Pulse 83; Resp 17; Temp 97.5; Pulse Ox 99% on R/A; Weight 65.77 kg; Height aj 5 ft. 4 in. (162.56 cm); 23:37 BP 111 / 50; Pulse 82; Pulse Ox 97% on R/A; rv 03/28 00:34 BP 120 / 61; Pulse 82; Pulse Ox 97% on R/A; rv 01:42 BP 125 / 61; Pulse 75; Resp 20; Pulse Ox 96% ; ds4 02:11 BP 118 / 61; Pulse 74; Pulse Ox 97% on R/A; rv 03/27 21:46 Body Mass Index 24.89 (65.77 kg, 162.56 cm) aj MDM: 03/27 21:51 Patient medically screened. cp 23:00 Differential diagnosis: bowel obstruction, diverticulitis, gastritis, non-specific abd cp pain, pancreatitis, Peptic Ulcer Disease, Perf. Duodenal Ulcer, Perf. Gastric Ulcer, Pyelonephritis, Ureterolithiasis, urinary tract infection. 03/28 01:57 Data reviewed: vital signs, nurses notes, lab test result(s), EKG, radiologic studies, cp CT scan, plain films, and as a result, I will discharge patient. 01:57 Test interpretation: by ED physician or midlevel provider: ECG, plain radiologic cp studies. 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 Response to treatment: the patient's symptoms have markedly improved after treatment, VSS. Pain and nausea improved. CT abdomen/pelvis negative for acute findings. Will discharge to home for continued monitoring. 01:58 Special discussion: Based on the patient's Hx, exam, and Dx evaluation, there is no cp indication for emergent surgery or inpatient Tx. It is understood by the patient/guardian that if the Sx's persist or worsen they need to return immediately for re-evaluation. 03/27 21:58 Order name: Basic Metabolic Panel 03/27 21:58 Order name: CBC with Diff; Complete Time: 23:25 03/27 21:58 Order name: Hepatic Function; Complete Time: 23:25 03/27 23:25 Interpretation: Normal except: GLOB 4.2; A/G 0.8. 03/27 21:58 Order name: Lipase; Complete Time: 23:25 03/27 21:58 Order name: Magnesium; Complete Time: 23:25 03/27 21:58 Order name: XRAY Chest (1 view) 03/27 21:58 Order name: CT Abd/Pelvis - W/Contrast: give oral contrast 03/27 21:59 Order name: Basic Metabolic Panel; Complete Time: 23:25 EDMS 03/28 01:54 Interpretation: Normal except: GLUC 337; GFR 76. 03/27 23:12 Order name: Urine Dipstick--Ancillary (enter results); Complete Time: 00:48 ds4 03/27 23:12 Order name: Urine --Ancillary (enter results); Complete Time: 00:48 ds4 03/27 21:58 Order name: IV Saline Lock; Complete Time: 22:12 03/27 21:58 Order name: Labs collected and sent; Complete Time: 22:12 03/27 21:58 Order name: Urine Dipstick-Ancillary (obtain specimen); Complete Time: 23:10 03/27 21:58 Order name: Urine Test (obtain specimen); Complete Time: 23:10 03/27 21:58 Order name: EKG; Complete Time: 21:59 03/27 21:58 Order name: EKG - Nurse/Tech; Complete Time: 22:12 03/28 01:54 Order name: PO challenge; Complete Time: 02:02 cp Administered Medications: 03/27 23:35 Drug: NS 0.9% 500 ml Route: IV; Rate: bolus; Site: left forearm; 03/28 02:11 Follow up: IV Status: Completed infusion 09/28 23:38 Drug: Insulin Regular Human 10 units {Co-Signature: tl3 (Lexis Bell RN).} Route: IVP; rv Site: left forearm; 03/28 02:11 Follow up: Response: Blood sugar is lowered rv 00:27 Drug: fentaNYL (PF) 25 mcg Route: IVP; Site: left forearm; rv 02:11 Follow up: Response: No adverse reaction rv 02:10 Drug: Reglan 10 mg Route: IVP; Site: left forearm; rv 02:10 Follow up: Response: Medication administered at discharge. rv Point of Care Testing: Blood Glucose: 00:28 Blood Glucose: 130 mg/dL; rv Ranges: Critical Glucose Levels:Adult <50 mg/dl or >400 mg/dl <40 mg/dl or >180 mg/dl Disposition: 06:46 Co-signature as Attending Physician, Ricardo Araiza MD I agree with the assessment and grant hospital plan of care. Disposition: 03/28/18 01:59 Discharged to Home. Impression: Unspecified abdominal pain. - Condition is Stable. - Discharge Instructions: Abdominal Pain, Adult, Gastroparesis. - Prescriptions for Bentyl 20 mg Oral Tablet - take 2 tablet by ORAL route every 6 hours As needed; 40 tablet. Zofran 4 mg Oral Tablet - take 1 tablet by ORAL route every 12 hours As needed; 20 tablet. - Medication Reconciliation Form, Thank You Letter, Antibiotic Education, Prescription Opioid Use form. - Follow up: Sixto Cortez MD; When: 2 - 3 days; Reason: Recheck today's complaints. - Problem is new. - Symptoms have improved. Signatures: Dispatcher [employer] [facility] Liza Sharpe RN RN aj Anderson, Corey, MD MD cha Page, Corey, PA PA cp Vicente, Ronaldo, RN RN rv Lexis Bell RN tl3 Corrections: (The following items were deleted from the chart) 03/27 22:18 21:59 Creatinine for Radiology+C.LAB.BRZ ordered. [facility] 03/28 02:12 01:59 03/28/2018 01:59 Discharged to Home. Impression: Unspecified abdominal pain. rv Condition is Stable. Forms are Medication Reconciliation Form, Thank You Letter, Antibiotic Education, Prescription Opioid Use. Follow up: Sixto Cortez; When: 2 - 3 days; Reason: Recheck today's complaints. Problem is new. Symptoms have improved. cp
--- NOTE | 2018-03-28 02:00 | ER ---
Nurse's Notes [facility] Name: Dena Nance Age: 48 yrs Sex: Female : 1970 Arrival Date: 03/27/2018 Time: 21:38 Bed 30 Private MD: Mason Arreguin Diagnosis: Unspecified abdominal pain Presentation: 03/27 21:44 Presenting complaint: Patient states: Abdominal distention and swelling that got worse aj this evening. HX of diverticulitis. Transition of care: patient was not received from another setting of care. Onset of symptoms was March 24, 2018. Risk Assessment: Do you want to hurt yourself or someone else? Patient reports no desire to harm self or others. Initial Sepsis Screen: Does the patient meet any 2 criteria? No. Patient's initial sepsis screen is negative. Does the patient have a suspected source of infection? No. Patient's initial sepsis screen is negative. Care prior to arrival: None. 21:44 Method Of Arrival: Ambulatory aj 21:44 Acuity: MARIANA 3 aj Triage Assessment: 21:46 General: Appears in no apparent distress. uncomfortable, Behavior is calm, cooperative, aj appropriate for age. Pain: Complains of pain in abdomen. Neuro: Level of Consciousness is awake, alert, obeys commands, Oriented to person, place, time, situation, Appropriate for age. Respiratory: Airway is patent Respiratory effort is even, unlabored, Respiratory pattern is regular, symmetrical. GI: Abdomen is flat, round distended, Reports lower abdominal pain, upper abdominal pain, bloating. Derm: Skin is intact, is healthy with good turgor, Skin is pink, warm \T\ dry. normal. 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 - Social history:: Smoking status: Patient/guardian denies using tobacco. - Ebola Screening: : Patient negative for fever greater than or equal to 101.5 degrees Fahrenheit, and additional compatible Ebola Virus Disease symptoms Patient denies exposure to infectious person Patient denies travel to an Ebola-affected area in the 21 days before illness onset No symptoms or risks identified at this time. Screenin:33 Abuse screen: Denies threats or abuse. Denies injuries from another. Nutritional rv screening: No deficits noted. Tuberculosis screening: No symptoms or risk factors identified. Fall Risk None identified. Assessment: 22:00 General: Appears in no apparent distress. comfortable, Behavior is calm, cooperative. rv 22:00 Pain: Complains of pain in abdomen. Neuro: Level of Consciousness is awake, alert, rv obeys commands, Oriented to person, place, time, situation. Cardiovascular: Capillary refill < 3 seconds. Respiratory: Airway is patent. GI: Bowel sounds present X 4 quads. Abdomen is tender to palpation X 4 quads. : No signs and/or symptoms were reported regarding the genitourinary system. EENT: No signs and/or symptoms were reported regarding the EENT system. Derm: Skin is intact. 23:37 Reassessment: Patient appears in no apparent distress at this time. Patient and/or rv family updated on plan of care and expected duration. Pain level reassessed. Patient is alert, oriented x 3, equal unlabored respirations, skin warm/dry/pink. 03/28 00:35 Reassessment: Patient appears in no apparent distress at this time. Patient and/or rv family updated on plan of care and expected duration. Pain level reassessed. Patient is alert, oriented x 3, equal unlabored respirations, skin warm/dry/pink. Vital Signs: 03/27 21:46 BP 119 / 57; Pulse 83; Resp 17; Temp 97.5; Pulse Ox 99% on R/A; Weight 65.77 kg; Height aj 5 ft. 4 in. (162.56 cm); 23:37 BP 111 / 50; Pulse 82; Pulse Ox 97% on R/A; rv 03/28 00:34 BP 120 / 61; Pulse 82; Pulse Ox 97% on R/A; rv 01:42 BP 125 / 61; Pulse 75; Resp 20; Pulse Ox 96% ; ds4 02:11 BP 118 / 61; Pulse 74; Pulse Ox 97% on R/A; rv 03/27 21:46 Body Mass Index 24.89 (65.77 kg, 162.56 cm) ED Course: 03/27 21:38 Patient arrived in ED. ds1 21:38 Mason Arreguin MD is Private Physician. ds1 21:45 Triage completed. aj 21:46 Arm band placed on left wrist. Patient placed in an exam room, on a stretcher. aj 21:51 Ricardo Ramirez PA is PHCP. cp 21:51 Ricardo Araiza MD is Attending Physician. cp 22:00 Inserted saline lock: 20 gauge in left forearm, using aseptic technique. Blood rv collected. 22:12 EKG done, by ED staff, reviewed by Ricardo Araiza MD. ds4 22:13 CBC with Diff Sent. ds4 22:13 Hepatic Function Sent. ds4 22:13 Lipase Sent. ds4 22:13 Basic Metabolic Panel Sent. ds4 22:13 Basic Metabolic Panel Sent. ds4 22:15 XRAY Chest (1 view) In Process Unspecified. EDMS 22:33 Patient has correct armband on for positive identification. Placed in gown. Bed in low rv position. Call light in reach. Side rails up X2. Adult w/ patient. child monitor on. Pulse ox on. NIBP on. 23:[address] via wheelchair. kw1 03/28 00:12 CT Abd/Pelvis - W/Contrast: give oral contrast In Process Unspecified. EDMS 00:13 CT completed. Patient tolerated procedure well. Patient moved back from CT. kw1 00:35 Awaiting radiology results. rv 01:59 Sixto Cortez MD is Referral Physician. cp 02:11 No provider procedures requiring assistance completed. IV discontinued, bleeding rv controlled, No redness/swelling at site. Pressure dressing applied. Administered Medications: 03/27 23:35 Drug: NS 0.9% 500 ml Route: IV; Rate: bolus; Site: left forearm; rv 03/28 02:11 Follow up: IV Status: Completed infusion rv 03/27 23:38 Drug: Insulin Regular Human 10 units {Co-Signature: tl3 (Lexis Bell RN).} Route: IVP; rv Site: left forearm; 03/28 02:11 Follow up: Response: Blood sugar is lowered rv 00:27 Drug: fentaNYL (PF) 25 mcg Route: IVP; Site: left forearm; rv 02:11 Follow up: Response: No adverse reaction rv 02:10 Drug: Reglan 10 mg Route: IVP; Site: left forearm; rv 02:10 Follow up: Response: Medication administered at discharge. rv Point of Care Testing: Blood Glucose: 00:28 Blood Glucose: 130 mg/dL; rv Ranges: Outcome: 01:59 Discharge ordered by . latosha 02:12 Discharged to home ambulatory. rv 02:12 Condition: improved 02:12 Discharge instructions given to patient, Instructed on discharge instructions, follow up and referral plans. medication usage, Demonstrated understanding of instructions, follow-up care, medications. 02:12 Patient left the ED. rv Signatures: Dispatcher [employer] EDMS Liza Sharpe, RN Karina Barclay ds1 Ash Goss ds4 Ricardo Ramirez PA PA cp Kanika Loyd kw1 Esvin Stephen RN RN rv Lexis Bell RN tl3 Corrections: (The following items were deleted from the chart) 03/27 22:18 22:13 Creatinine for Radiology+C.LAB.BRZ drawn and sent. ds4 EDMS
[2018-03-28] MEDS ORDERED: METOCLOPRAMIDE 10 MG/2mL INJ ONE (02:05)
[2018-03-28 02:37] VITALS: TEMP 97.5
[2018-03-28 02:41] VITALS: BP 118/61; O2SAT 97
--- NOTE | 2018-03-28 08:23 | RAD REPORT ---
EXAM DESCRIPTION: RAD - Chest Single View - 03/27/2018 10:15 pm CLINICAL HISTORY: Lower chest pain, abdominal distention COMPARISON: September 30 TECHNIQUE: AP portable chest image was obtained 1858 hours . FINDINGS: No focal lung parenchymal process. Interstitial markings are similar to comparison. Heart and vasculature are normal. No measurable pleural effusion and no pneumothorax. No gross bony abnorma lity seen. No acute aortic findings suspected. IMPRESSION: No acute cardiopulmonary process. No significant interval change.
--- NOTE | 2018-03-28 08:55 | RAD REPORT ---
EXAM DESCRIPTION: CT - Abdomen Pelvis W Contrast - 03/28/2018 5:09 am CLINICAL HISTORY: Abdominal pain and distention progressive over time, history of diverticulitis, fa tty liver disease and pancreatitis ; prior hysterectomy and cholecystectomy A preliminary report was provided at the time of the study and reviewed prior to final report. COMPARISON: CT imaging September 2017 TECHNIQUE: Biphasic, helical CT imaging of the abdomen and pelvis was performed following 100 ml non -ionic IV contrast. Oral contrast was given. All CT scans are performed using dose optimization technique as appropriate and may include automated exposure control or mA/KV adjustment according to patient size. FINDINGS: No suspicious findings in the lung bases. The liver, spleen, and pancreas show no suspicious findings. Liver attenuation is borderline or mildl y fatty infiltrated. Cholecystectomy clips are present with no biliary tree dilatation. Symmetric renal function is seen with no hydronephrosis or suspicious renal mass. No pyelonephritis o r acute renal parenchymal process. Partially filled urinary bladder shows no suspicious findings. Liberty emelia is absent. No ovarian or adnexal suspicious finding. No dilated bowel loops or bowel wall thickening. Mild diverticulosis with no diverticulitis finding. No free air, free fluid or inflammatory stranding. No hernia, mass or bulky lymphadenopathy. No adre nal abnormality. No suspicious bony findings. IMPRESSION: No diverticulitis or acute abdominal or pelvic finding.
--- NOTE | 2018-03-28 09:24 | EKG ---
Test Date: 2018-03-27 Test Time: 22:10:27 Logistics Loss Prevention Manager: SAL MEASUREMENT RESULTS: Intervals: Rate: 79 WY: 194 QRSD: 86 QT: 340 QTc: 389 [place]: P: 70 WY: 194 QRS: 61 T: 38 INTERPRETIVE STATEMENTS: Normal sinus rhythm Normal ECG Compared to ECG 01/10/2015 08:45:44 No significant changes Electronically Signed On 03-28-18 09:23:34 CDT by Kike Alvarez
== END 2018-03-28 02:12 | disposition home or self-care (01) ==
LOC: ER 21:36
DX: R10.9 Unspecified abdominal pain (principal); E11.9 Type 2 diabetes mellitus without complications
CPT/HCPCS: 36415; 71045; 74177; 80048; 80076; 81003; 81025; 82962; 83690; 83735; 85025; 93005; 96361; 96374; 96375; 99285; J2765; J3010; Q9967

== ENCOUNTER 2018-06-10 21:37 | Inpatient (IN) | payer OTHER ==
--- OUTSIDE RECORDS SUMMARY | 2018-06-10 21:39 | XMS REPORT ---
:1970 [facility] Address [address] Chang [address] [place] [id number] Care Team Providers Name Role Phone VELÁSQUEZ, LIZZETTE PARRA Unavailable Unavailable Problems This patient has no known problems. Allergies, Adverse Reactions, Alerts This patient has no known allergies or adverse reactions. Medications This patient has no known medications. Results Test Description Test Time Test Comments Text Results Atomic Results Result Comments MM, STEREOTACTIC 2017-05-14 Reason for Addendum BeginsMRN#: BIOPSY, BREAST, 15:59:00 Exam:->calcification [id number]: LEFT 05/14/2017 Lizzette Velsáquez M.D. 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 Addendum EndsN#: [id number] - MM, STEREOTACTIC BIOPSY, BREAST, LEFTSTEREOTACTIC GUIDED [...] correct location, five specimens were obtained using Olery device. A clip was inserted into the [...] the calcifications. Lizzette Velásquez M.D. pth/penrad:05/09/2017 11:07:57 Broth Setter: Felicia Rizzo RT(Linda)(M), [facility] [id number] UE EXAM 2017-05-12 Surgical Pathology Report 12:48:00 Case: [id number] Authorizing Provider: Lizzette Velásquez MD Collected: 05/09/2017 1110 [facility] Location: [facility] Received: 05/09/2017 1312 Pathologist: Jackie Maradiaga MD Specimen: Breast, Left, LEFT MIDDLE 12 BREAST CALCIFICATION BREAST, LEFT, MIDDLE 12 O'CLOCK, CALCIFICATIONS, STEREOTACTIC CORE NEEDLE BIOPSY: - HYALINIZED FIBROADENOMA - COLUMNAR CELL HYPERPLASIA - COLUMNAR CELL CHANGES - MICROCALCIFICATIONS, COARSE, ASSOCIATED WITH FIBROADENOMA Signing Pathologist Direct Phone Line: [phone] signed by Jackie Maradiaga MD on 05/12/2017 at 12:48 PMIn the sections examined, no atypical hyperplasia or carcinoma is identified.[id number] lesion Left middle 12 o'clock breast calcifications The specimen is received in a formalin-filled container labeled with the patient's information and labeled "left middle 12 o'clock breast calcifications" and consists of multiple yellow-white breast core biopsies ranging in length from 0.6 to 2.5 cm.Ink code: Black.The specimen is submitted entirely in A1 and A2. CG/ewPerformed.[facility], Department of Pathology, [address] [place] [address], [place] [address], MM, DIGITAL, 2017-05-09 Left breast #[id number] - UNILATERAL, 11:07:00 calcifications MM, DIGITAL, UNILATERAL, [...] pathology results. Lizzette Velásquez M.D. pth/:05/09/2017 11:07:15 Broth Setter: Felicia SCHNEIDER)(Phil), [facility] Mammogram BI-RADS: Post-procedure mammogram for marker placement [id number] , MAMMO, 2017-05-09 Reason for exam:->Left #[id number] - SPECIMEN, 11:06:00 breast calcifications MM, MAMMO, SPECIMEN, RADIOGRAPH, LEFT RADIOGRAPH, LEFTSPECIMEN LEFT BREAST: 05/09/2017Five stereotactic guided biopsy specimens were imaged for the area of calcifications located in the left breast at 12 o'clock middle depth. IMPRESSION: SPECIMENThe imaged specimens includes the calcifications. Lizzette Velásquez M.D. pth/:05/09/2017 11:06:40 Broth Setter: Felicia BELLA(R)(M), [facility] [id number]
--- OUTSIDE RECORDS SUMMARY | 2018-06-10 21:39 | XMS REPORT | Clinical Summary ---
:1970 Author Organization [facility] Address [address] [place] [address] Care Team Providers Name Role Phone Dolores Primary Care Provider Allergies No Known Allergies Medications Medication Sig Dispensed Refills Start Date End Date Status metFORMIN (GLUCOPHAGE) Take 500 mg by 0 Active 500 MG tablet mouth 2 (two) times daily with breakfast and dinner. glimepiride (AMARYL) 4 Take 4 mg by mouth 0 Active MG tablet 2 (two) times daily before meals. empagliflozin Take 10 mg by 0 Active (JARDIANCE) 10 mg mouth daily. tablet sertraline (ZOLOFT) 50 Take 50 mg by 0 Active MG tablet mouth daily. Active Problems Not on file Social History Tobacco Use Types Packs/Day Years Used Date Never Smoker Smokeless Tobacco: Never Used Sex Assigned at Date Recorded Not on file Job Start Date Occupation Industry Not on file Not on file Not on file Travel History Travel Start Travel End No recent travel history available. Last Filed Vital Signs Not on file Plan of Treatment Not on file Results Not on fileafter 06/09/2017 Insurance Payer Benefit Plan / Group Subscriber ID Type Phone Address [facility] xxxxxxxxxxxx HMO/POS [phone] CHOICE EXCHANGE (Work) [phone]
[2018-06-10 23:26] LABS: Hematocrit 43.4 % (36.0-45.0); MCH 29.6 pg (27.0-35.0); MCV 87.9 fL (80-100); RBC Red Blood Cell Count 4.94 M/uL (3.86-4.86)
[2018-06-10] MEDS ORDERED: NA CHLORIDE 0.9% 1,000 ML ONE (23:26)
[2018-06-10] MEDS ORDERED: ONDANSETRON 4 MG/2 ML VIAL ONE (23:26)
[2018-06-10] MEDS ORDERED: MORPHINE 4 MG/ML SYR ONE (23:26)
[2018-06-10 23:27] LABS: Absolute Lymphocytes (CBC) 2.6 K/uL (0.7-4.9); Absolute Monocytes 0.6 K/uL (0.1-1.3); Absolute Neutrophil 8.6 K/uL (1.8-8.0); Basophils % 0.4 % (0-1.3); Lymphocytes % 19.5 % (15.3-44.8); MPV 9.3 fL (7.6-11.3); Monocytes % 4.7 % (3.3-12.3)
[2018-06-10 23:46] LABS: Bilirubin Direct 0.2 mg/dL (0-0.2); Bilirubin Total 0.4 mg/dL (0.2-1.0); Potassium 3.8 mmol/L (3.5-5.1); Protein, Total 8.4 g/dL (6.4-8.2)
--- NOTE | 2018-06-11 01:11 | EDPHYS ---
Physician Documentation [facility] Name: Dena Nance Age: 48 yrs Sex: Female : 1970 Arrival Date: 06/10/2018 Time: 21:40 Bed 24 Private MD: ED Physician Benji Longoria HPI: 06/11 01:05 This 48 yrs old Female presents to ER via Ambulatory with complaints of Upper pm1 Abdominal Pain. 01:05 The patient presents with abdominal pain in the upper abdomen. Onset: The pm1 symptoms/episode began/occurred 1 week(s) ago. The symptoms radiate to back. Associated signs and symptoms: Pertinent positives: nausea and vomiting, diarrhea, Pertinent negatives: constipation, dysuria, fever. The symptoms are described as achy, constant. Modifying factors: The symptoms are alleviated by nothing, the symptoms are aggravated by nothing. Severity of pain: in the emergency department the pain is actually worse. The patient has experienced similar episodes in the past, a few times. The patient has been recently seen by a physician: the patient's primary care provider, Dr. Arreguin on Friday. Patient with onset of abdominal pain about 1 week ago. Saw PCP on Friday had labs drawn and was informed if labs were abnormal a ultrasound would be ordered for her. Patient has had gallbladder removed. Pain is similar to prior pancreatitis and diverticulitis, last episode of pancreatitis 1 year ago. Positive for nausea and vomiting x 1 today. Diarrhea for 3 days. 01:05 Patient has had her gallbladder removed. 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 - Social history:: Smoking status: Patient/guardian denies using tobacco. - Ebola Screening: : Patient denies travel to an Ebola-affected area in the 21 days before illness onset. ROS: 12/13 01:05 Constitutional: Negative for fever, chills, and weight loss, Eyes: Negative for injury, pm1 pain, redness, and discharge, ENT: Negative for injury, pain, and discharge, Neck: Negative for injury, pain, and swelling, Cardiovascular: Negative for chest pain, palpitations, and edema, Respiratory: Negative for shortness of breath, cough, wheezing, and pleuritic chest pain. Back: Negative for injury and pain, : Negative for injury, bleeding, discharge, and swelling, MS/Extremity: Negative for injury and deformity, Skin: Negative for injury, rash, and discoloration, Neuro: Negative for headache, weakness, numbness, tingling, and seizure. Abdomen/GI: Positive for abdominal pain, nausea and vomiting, Negative for diarrhea, constipation. Exam: 01:05 Constitutional: This is a well developed, well nourished patient who is awake, alert, pm1 and in no acute distress. Head/Face: Normocephalic, atraumatic. Eyes: Pupils equal round and reactive to light, extra-ocular motions intact. Lids and lashes normal. Conjunctiva and sclera are non-icteric and not injected. Cornea within normal limits. Periorbital areas with no swelling, redness, or edema. ENT: Nares patent. No nasal discharge, no septal abnormalities noted. Tympanic membranes are normal and external auditory canals are clear. Oropharynx with no redness, swelling, or masses, exudates, or evidence of obstruction, uvula midline. Mucous membranes moist. Neck: Trachea midline, no thyromegaly or masses palpated, and no cervical lymphadenopathy. Supple, full range of motion without nuchal rigidity, or vertebral point tenderness. No Meningismus. Chest/axilla: Normal chest wall appearance and motion. Nontender with no deformity. No lesions are appreciated. Cardiovascular: Regular rate and rhythm with a normal S1 and S2. No gallops, murmurs, or rubs. Normal PMI, no JVD. No pulse deficits. Respiratory: Lungs have equal breath sounds bilaterally, clear to auscultation and percussion. No rales, rhonchi or wheezes noted. No increased work of breathing, no retractions or nasal flaring. 01:05 Back: No spinal tenderness. No costovertebral tenderness. Full range of motion. Skin: Warm, dry with normal turgor. Normal color with no rashes, no lesions, and no evidence of cellulitis. MS/ Extremity: Pulses equal, no cyanosis. Neurovascular intact. Full, normal range of motion. 01:05 Abdomen/GI: Inspection: abdomen appears normal, Bowel sounds: normal, Palpation: soft, moderate abdominal tenderness, in the epigastric area, mass, is not appreciated, rebound tenderness, is not appreciated. 01:05 Neuro: Orientation: is normal, Motor: is normal, moves all fours. Vital Signs: 06/10 22:27 BP 104 / 60; Pulse 75; Resp 18; Temp 97.4; Pulse Ox 99% on R/A; Weight 58.97 kg (R); aj1 Height 5 ft. 4 in. (162.56 cm) (R); Pain 10/10; 22:40 BP 115 / 70; Pulse 74; Resp 18; Pulse Ox 100% ; Pain 10/10; jp3 06/11 00:14 BP 108 / 59; Pulse 81; Resp 18; Pulse Ox 95% on R/A; Pain 0/10; mg2 01:51 BP 106 / 49; Pulse 86; Resp 18; Pulse Ox 98% on R/A; mg2 06/10 22:27 Body Mass Index 22.31 (58.97 kg, 162.56 cm) aj1 MDM: 06/10 23:17 Patient medically screened. pm1 06/11 01:04 Data reviewed: vital signs. Data interpreted: Pulse oximetry: on room air is 95 %. pm1 Interpretation: normal. Counseling: I had a detailed discussion with the patient and/or guardian regarding: the historical points, exam findings, and any diagnostic results supporting the discharge/admit diagnosis, lab results, the need for further work-up and treatment in the hospital. 01:04 Physician consultation: Bon Ponce MD was contacted at 01:05, and will see patient pm1 in ED. 06/10 23:11 Order name: Urine Dipstick--Ancillary (enter results); Complete Time: 02:48 gm 06/10 23:12 Order name: Urine --Ancillary (enter results); Complete Time: 02:48 gm 06/10 23:21 Order name: Basic Metabolic Panel; Complete Time: 00:15 EDMS 12/12 23:21 Order name: Liver (Hepatic) Function; Complete Time: 00:15 EDMS 06/10 23:10 Order name: IV Saline Lock; Complete Time: 23:10 mg2 06/10 23:10 Order name: Labs collected and sent; Complete Time: 23:10 mg2 06/10 23:13 Order name: IV Saline Lock; Complete Time: 23:13 pm1 06/10 23:13 Order name: Labs collected and sent; Complete Time: 23:13 pm1 06/10 23:22 Order name: Lipase; Complete Time: 00:15 EDMS 06/10 23:22 Order name: Creatinine (Radiology Only); Complete Time: 00:15 EDMS 06/10 23:22 Order name: CBC with Automated Diff; Complete Time: 00:15 EDMS 06/11 00:19 Order name: Abdomen EDMS Administered Medications: 06/10 23:38 Drug: Zofran 4 mg Route: IVP; Infused Over: 2 mins; Site: right forearm; tl3 06/11 00:13 Follow up: Response: No adverse reaction; Marked relief of symptoms mg2 06/10 23:38 Drug: NS 0.9% 1000 ml Route: IV; Rate: 1000 ml; Site: right forearm; Delivery: Primary tl3 tubing; 06/11 00:13 Follow up: Response: No adverse reaction; IV Status: Completed infusion mg2 06/10 23:39 Drug: morphine 4 mg Route: IVP; Infused Over: 2 mins; Site: right forearm; tl3 06/11 00:13 Follow up: Response: No adverse reaction; Marked relief of symptoms mg2 Disposition: 06:07 Co-signature as Attending Physician, Benji Longoria MD I agree with the assessment and 4 plan of care. Disposition: 06/11/18 01:10 Hospitalization ordered by Bon Ponce for Inpatient Admission. Preliminary diagnosis is Acute pancreatitis. - Bed requested for Telemetry/MedSurg (Inpatient). - Status is Inpatient Admission. mg2 - Condition is Stable. - Problem is new. - Symptoms have improved. UTI on Admission? No Signatures: Dispatcher [employer] EDMS Megan Chua RN RN aj1 Brenda Baker RN RN Robin Moise, EXHAUST TENDER EXHAUST TENDER pm1 Benji Longoria MD MD 4 Lexis Bell RN RN tl3 Gardose, Idris, RN RN mg2 Corrections: (The following items were deleted from the chart) : 01:05 Associated signs and symptoms: Pertinent positives: nausea and vomiting, pm1 Pertinent negatives: constipation, diarrhea, dysuria, fever, pm1 01:26 01:05 Patient with onset of abdominal pain about 1 week ago. Saw PCP on Friday had labs pm1 drawn and was informed if labs were abnormal a ultrasound would be ordered for her. Patient has had gallbladder removed. Pain is similar to prior pancreatitis and diverticulitis, last episode of pancreatitis 1 year ago. Positive for nausea and vomiting.. pm1 02:14 02:09 Abdomen Pelvis W Con+CT.RAD.BRZ ordered. EDMN EDMS 02:16 02:09 BASIC METABOLIC PANEL+C.LAB.BRZ ordered. EDMN EDMS 02:16 02:09 CBC+H.LAB.BRZ ordered. EDMN EDMS 02:16 02:09 Creatinine for Radiology+C.LAB.BRZ ordered. EDMN EDMS 02:16 02:09 HEPATIC FUNCTION+C.LAB.BRZ ordered. EDMN EDMS 02:16 02:09 LIPASE+C.LAB.BRZ ordered. EDMN EDMS 02:17 02:08 BASIC METABOLIC PANEL+C.LAB.BRZ ordered. EDMN EDMS 02:17 02:08 CBC+H.LAB.BRZ ordered. EDMN EDMS 02:17 02:08 Creatinine for Radiology+C.LAB.BRZ ordered. EDMN EDMS 02:17 02:08 HEPATIC FUNCTION+C.LAB.BRZ ordered. EDMN EDMS 02:17 02:08 LIPASE+C.LAB.BRZ ordered. [facility] EDMS 02:34 01:10 Hospitalization Ordered by Bon Ponce MD for Inpatient Admission. Preliminary cg diagnosis is Acute pancreatitis. Bed requested for Telemetry/MedSurg (Inpatient). Status is Inpatient Admission. Condition is Stable. Problem is new. Symptoms have improved. UTI on Admission? No. pm1 03:09 02:34 06/11/2018 01:10 Hospitalization Ordered by Bon Ponce MD for Inpatient mg2 Admission. Preliminary diagnosis is Acute pancreatitis. Bed requested for Telemetry/MedSurg (Inpatient). Status is Inpatient Admission. Condition is Stable. Problem is new. Symptoms have improved. UTI on Admission? No. cg
--- NOTE | 2018-06-11 01:11 | ER ---
Nurse's Notes [facility] Name: Dena Nance Age: 48 yrs Sex: Female : 1970 Arrival Date: 06/10/2018 Time: 21:40 Bed 24 Private MD: Diagnosis: Acute pancreatitis Presentation: 06/10 22:24 Presenting complaint: Patient states: Reports epigastric pain that radiates to the back aj1 for the past 3 days. States that it's getting worse today. Reports N/V. Denies diarrhea. Denies fever. Transition of care: patient was not received from another setting of care. Onset of symptoms was June 06, 2018. Risk Assessment: Do you want to hurt yourself or someone else? Patient reports no desire to harm self or others. Initial Sepsis Screen: Does the patient meet any 2 criteria? No. Patient's initial sepsis screen is negative. Does the patient have a suspected source of infection? Yes: Acute abdominal pain. Care prior to arrival: None. 22:24 Method Of Arrival: Ambulatory aj1 22:24 Acuity: MARIANA 3 aj1 Triage Assessment: 22:27 General: Appears in no apparent distress. comfortable, Behavior is calm, cooperative, aj1 appropriate for age. Pain: Complains of pain in epigastric area Pain radiates to back Pain currently is 10 out of 10 on a pain scale. Neuro: Level of Consciousness is awake, alert, obeys commands. Cardiovascular: Patient's skin is warm and dry. Respiratory: Airway is patent Respiratory effort is even, unlabored, Respiratory pattern is regular, symmetrical. GI: Reports nausea, vomiting. 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 - Social history:: Smoking status: Patient/guardian denies using tobacco. - Ebola Screening: : Patient denies travel to an Ebola-affected area in the 21 days before illness onset. Screenin:13 Abuse screen: Denies threats or abuse. Denies injuries from another. Nutritional mg2 screening: No deficits noted. Tuberculosis screening: No symptoms or risk factors identified. Fall Risk IV access (20 points). Assessment: 23:10 General: Appears in no apparent distress. comfortable, Behavior is calm, cooperative. mg2 Pain: Complains of pain in abdomen and epigastric area Pain radiates to back Pain currently is 5 out of 10 on a pain scale. Quality of pain is described as aching, Pain began gradually, Is intermittent. Neuro: Level of Consciousness is awake, alert, obeys commands, Oriented to person, place, time, situation. Cardiovascular: No deficits noted. Respiratory: Airway is patent Respiratory effort is even, unlabored, Respiratory pattern is regular, symmetrical. GI: Reports upper abdominal pain, epigastric pain. : Urine is clear. EENT: No signs and/or symptoms were reported regarding the EENT system. Derm: Skin is intact, is healthy with good turgor, Skin is pink, warm \T\ dry. normal. Musculoskeletal: No signs and/or symptoms reported regarding the musculoskeletal system. 06/11 00:14 Reassessment: Patient appears in no apparent distress at this time. Patient and/or mg2 family updated on plan of care and expected duration. Pain level reassessed. Patient is alert, oriented x 3, equal unlabored respirations, skin warm/dry/pink. 01:51 Reassessment: Patient appears in no apparent distress at this time. Patient and/or mg2 family updated on plan of care and expected duration. Pain level reassessed. Patient is alert, oriented x 3, equal unlabored respirations, skin warm/dry/pink. patient informed about the need for admission. Vital Signs: 06/10 22:27 BP 104 / 60; Pulse 75; Resp 18; Temp 97.4; Pulse Ox 99% on R/A; Weight 58.97 kg (R); aj1 Height 5 ft. 4 in. (162.56 cm) (R); Pain 10/10; 22:40 BP 115 / 70; Pulse 74; Resp 18; Pulse Ox 100% ; Pain 10/10; jp3 06/11 00:14 BP 108 / 59; Pulse 81; Resp 18; Pulse Ox 95% on R/A; Pain 0/10; mg2 01:51 BP 106 / 49; Pulse 86; Resp 18; Pulse Ox 98% on R/A; mg2 06/10 22:27 Body Mass Index 22.31 (58.97 kg, 162.56 cm) aj1 ED Course: 06/10 21:40 Patient arrived in ED. ds1 22:26 Triage completed. aj1 22:27 Arm band placed on Patient placed in waiting room, Patient notified of wait time. aj1 22:50 Urine collected: clean catch specimen, clear, caitlin colored, Amount Voided: 20mL. jp3 22:53 Robin Moise, DARRELL is PHCP. pm1 22:53 Benji Longoria MD is Attending Physician. pm1 23:00 Initial lab(s) drawn, by me, sent to lab. Inserted saline lock: 22 gauge in right jp3 forearm, using aseptic technique. Blood collected. 23:09 Idris Rogers, RN is Primary Nurse. mg2 23:13 Patient has correct armband on for positive identification. mg2 23:14 No provider procedures requiring assistance completed. mg2 12 00:35 CT completed. Patient tolerated procedure well. Patient moved to CT via stretcher. eh Patient moved back from CT. 00:36 Abdomen In Process Unspecified. EDMS 01:10 Bon Ponce MD is Hospitalizing Provider. pm1 02:45 Patient admitted, IV remains in place. mg2 Administered Medications: 06/10 23:38 Drug: Zofran 4 mg Route: IVP; Infused Over: 2 mins; Site: right forearm; tl3 06/11 00:13 Follow up: Response: No adverse reaction; Marked relief of symptoms mg2 06/10 23:38 Drug: NS 0.9% 1000 ml Route: IV; Rate: 1000 ml; Site: right forearm; Delivery: Primary tl3 tubing; 06/11 00:13 Follow up: Response: No adverse reaction; IV Status: Completed infusion mg2 06/10 23:39 Drug: morphine 4 mg Route: IVP; Infused Over: 2 mins; Site: right forearm; tl3 06/11 00:13 Follow up: Response: No adverse reaction; Marked relief of symptoms mg2 Outcome: 01:10 Decision to Hospitalize by Provider. pm1 02:45 Admitted to Med/surg accompanied by nurse, via wheelchair, room 228, with chart, Report mg2 called to SAHDE Sue 02:45 Condition: stable 02:45 Instructed on the need for admit, Demonstrated understanding of instructions. 03:09 Patient left the ED. mg2 Signatures: Dispatcher [employer] EDMS Megan Chua, RN RN aj1 Pradip Mccarty Demi ds1 Robin Moise, AIRCRAFT ARMAMENT MECHANIC AIRCRAFT ARMAMENT MECHANIC pm1 Lexis Bell RN RN tl3 Idris Rogers RN RN mg2 Braeden Eduardo jp3
[2018-06-11 02:35] LABS: Urine Blood NEGATIVE (NEG); Urine Glucose NEGATIVE (NEG); Urine Protein NEGATIVE (NEG)
[2018-06-11] MEDS ORDERED: KETOROLAC 30 MG/ML INJ IV PRN (03:07)
[2018-06-11] MEDS ORDERED: ONDANSETRON 4 MG/2 ML VIAL IV PRN (03:07)
[2018-06-11] MEDS ORDERED: ACETAMINOPHEN 500 MG TAB PO PRN (03:07)
[2018-06-11] MEDS: NA CHLORIDE 0.9% 1,000 ML IV SCH ×3 (04:05→19:07)
[2018-06-11 04:57] VITALS: BMI 24.5
--- NOTE | 2018-06-11 05:07 | P.HP ---
Certification for Inpatient Patient admitted to: Inpatient With expected LOS: >2 Midnights Practitioner: I am a practitioner with admitting privileges, knowledge of patient current condition, hospital course, and medical plan of care. Services: Services provided to patient in accordance with Admission requirements found in Title 42 Section 412.3 of the Code of Federal Regulations Patient History Date of Service: 06/11/18 Reason for admission: acute pancreatitis History of Present Illness: Ms Bustamante is a 48 years old woman with history of DM II, pancreatitis, Cholecystectomy, who came to ED complaining of severe abdominal pain. The pain is localized in epigastric area, radiated to her back. Intensity is 10/10, she has had this kind of pain in the past, when she had pancreatitis. It is associated with nausea and vomiting. She also has had diarrhea. She denied fever or chills. Lab work shows leukocytosis 13.6, elevated lipase 1836. CT abd/ pelvis shows normal pancreas. Allergies No Known Drug Allergies Allergy (Verified 06/11/18 03:55) No Known Drug Allergies Home medications list reviewed: Yes Home Medications: Glimepiride [Amaryl] 1 tab PO BID 09/30/17 Metformin ER [Glucophage ER*] 2 tab PO BID 09/30/17 Sertraline [Zoloft*] 1 tab PO DAILY 09/30/17 Dicyclomine [Bentyl] 20 mg PO QID 06/11/18 Omeprazole [Prilosec] 40 mg PO DAILY 06/11/18 Sitagliptin Phosphate [Januvia*] 100 mg PO DAILY 06/11/18 - Past Medical/Surgical History Has patient received pneumonia vaccine in the past: No Diabetic: Yes -: DM -: pancreatitis -: YANN -: HYSTERECTOMY -: HYSTERECTOMY - Family History Father -: Heart disease, Stroke Mother -: Hypertension, Diabetes, Stroke Brother -: Diabetes Sister -: Diabetes - Social History Smoking Status: Never smoker Alcohol use: No CD- Drugs: No Caffeine use: Yes Place of Residence: Home Review of Systems 10-point ROS is otherwise unremarkable Physical Examination - Vital Signs Temperature: 97.3 F Blood Pressure: 106/57 Pulse: 83 Respirations: 18 Pulse Ox (%): 94 - Physical Exam General: Alert, In no apparent distress HEENT: Atraumatic, PERRLA, Mucous membr. moist/pink, EOMI, Sclerae nonicteric Neck: Supple, 2+ carotid pulse no bruit, No LAD, Without JVD or thyroid abnormality Respiratory: Clear to auscultation bilaterally, Normal air movement Cardiovascular: Regular rate/rhythm, Normal S1 S2 Gastrointestinal: Normal bowel sounds, Tenderness (epigastric area) Musculoskeletal: No tenderness Integumentary: No rashes Neurological: Normal speech, Normal strength at 5/5 x4 extr, Normal tone, Normal affect Lymphatics: No axilla or inguinal lymphadenopathy - Studies Laboratory Data (last 24 hrs) 06/10/18 23:13: Creatinine Cancelled 06/10/18 23:13: WBC Cancelled, Hgb Cancelled, Hct Cancelled, Plt Count Cancelled 06/10/18 23:13: Sodium Cancelled, Potassium Cancelled, BUN Cancelled, Creatinine Cancelled, Glucose Cancelled, Total Bilirubin Cancelled, AST Cancelled, ALT Cancelled, Alkaline Phosphatase Cancelled, Lipase Cancelled 06/10/18 23:10: Creatinine Cancelled 06/10/18 23:10: WBC Cancelled, Hgb Cancelled, Hct Cancelled, Plt Count Cancelled 06/10/18 23:10: Sodium Cancelled, Potassium Cancelled, BUN Cancelled, Creatinine Cancelled, Glucose Cancelled, Total Bilirubin Cancelled, AST Cancelled, ALT Cancelled, Alkaline Phosphatase Cancelled, Lipase Cancelled 06/10/18 23:00: Creatinine 0.70 06/10/18 23:00: WBC 13.6 H, Hgb 14.6, Hct 43.4, Plt Count 262 06/10/18 23:00: Sodium 138, Potassium 3.8, BUN 10, Creatinine 0.80, Glucose 74, Total Bilirubin 0.4, AST 71 H, ALT 55, Alkaline Phosphatase 121 H, Lipase 1836 H Assessment and Plan - Problems (Diagnosis) (1) Acute pancreatitis Onset Date: 10/01/17 Current Visit: No Status: Acute Qualifiers: Pancreatitis type: unspecified pancreatitis type Acute pancreatitis complication: unspecified Qualified Code(s): K85.90 - Acute pancreatitis without necrosis or infection, unspecified (2) Diabetes Onset Date: 10/01/17 Current Visit: No Status: Acute Qualifiers: Diabetes mellitus type: type 2 Diabetes mellitus group home insulin use: without middle or intermediate school principal use Diabetes mellitus complication status: with unspecified complications Qualified Code(s): E11.8 - Type 2 diabetes mellitus with unspecified complications - Plan The patient will be admitted to the hospital due to acute pancreatitis. Will continue with IV fluids, symptomatic medication and bowel rest. - Advance Directives Does patient have a Living Will: No Does patient have a Durable POA for Healthcare: No - Code Status/Comfort Care Code Status Assessed: Yes Code Status: Full Code Physician Review: Patient Assessed, Agree with Above Assessment and Plan
[2018-06-11] MEDS: INSULIN -REGULAR HUMAN 50 UNIT/0.5 ML ML SQ SCH ×3 (05:58→17:15)
[2018-06-11] MEDS ORDERED: SODIUM CHLORIDE 0.9% 10ML INJ IV PRN (08:09)
[2018-06-11] MEDS: SERTRALINE HCL 50 MG TAB PO SCH (08:27)
[2018-06-11] MEDS: ENOXAPARIN 40 MG/0.4 ML SQ SCH (08:27)
[2018-06-11] MEDS: PANTOPRAZOLE 40 MG INJ IVP SCH (08:28)
--- NOTE | 2018-06-11 08:36 | RAD REPORT ---
EXAM DESCRIPTION: CTAbdomen Pelvis W Contrast - 06/11/2018 2:35 am CLINICAL HISTORY: Abdominal pain. EPIGASTRIC PAIN W/ N/V FOR 3 DAYS COMPARISON: Abdomen Pelvis W Contrast dated 03/27/2018; Abdomen Pelvis W Contrast dated 09/30/2017; Abdomen Pelvis W Contrast dated 01/07/2017; Abdomen Pelvis W Contrast dated 06/24/2016 TECHNIQUE: Biphasic CT imaging of the abdomen and pelvis was performed with 100 ml non-ionic IV cont rast. All CT scans are performed using dose optimization technique as appropriate and may include automated exposure control or mA/KV adjustment according to patient size. FINDINGS: The lung bases are clear.Cholecystectomy clips. The liver is mildly prominent in size with a nodular contour and mild fatty liver infiltration suspec alphonso. The spleen, adrenal glands and kidneys are within normal limits. Mild pancreatic atrophy is pres ent, unchanged. No bowel obstruction, free air, free fluid or abscess. A fluid-filled colon is present with several d iverticula noted particularly in the sigmoid colon. The appendix is slightly prominent in size measur ing 6 mm, however have a similar appearance on the comparative examination. No evidence of significa nt lymphadenopathy. No suspicious bony findings. IMPRESSION: A mild pancolitis is suspected with the colon filled with fluid and liquid stool. The appendix appears mildly prominent, however, similar to the comparative examination.
[2018-06-11] MEDS ORDERED: INFLUENZA VACCINE (for 3y+) 0.5 ML DOSE IMVAC ONE (09:00)
[2018-06-11 09:03] LABS: Thyroid Stimulating Hormone 1.1 uIU/mL (0.360-3.740)
--- NOTE | 2018-06-11 10:08 | RAD REPORT ---
EXAM DESCRIPTION: US - Abdomen Exam Complete - 06/11/2018 9:15 am CLINICAL HISTORY: Abdominal pain. pancreatitis COMPARISON: Abdomen Exam Limited dated 09/30/2017; Abdomen Pelvis W Contrast dated 06/11/2018 FINDINGS: The liver is normal in size, shape and echotexture. No focal liver lesions or intrahepatic biliary dilatation is seen. The gallbladder surgically absent. Common bile duct is normal in caliber measuring 4 mm. Both kidneys are normal in size, shape and echotexture. No hydronephrosis, focal lesion of concern or perinephric fluid. The spleen is normal in size measuring 12 cm. The pancreas and aorta are obscured by bowel gas. The visualized aspects of the IVC are grossly normal. IMPRESSION: Unremarkable study except for limited assessment of the pancreas and aorta due to bowel gas. Cholecystectomy.
--- NOTE | 2018-06-11 12:57 | P.PN ---
Subjective Date of Service: 06/11/18 Primary Care Provider: Dr. Good Chief Complaint: acute pancreatitis Subjective: Other (Patient still with pain to the epigastric region.) Physical Examination - Vital Signs Temperature: 98.3 F Blood Pressure: 98/53 Pulse: 57 Respirations: 17 Pulse Ox (%): 94 - Physical Exam General: Alert, In no apparent distress, Oriented x3, Cooperative HEENT: Atraumatic Neck: Supple Respiratory: Clear to auscultation bilaterally, Normal air movement Cardiovascular: Normal pulses, Regular rate/rhythm Gastrointestinal: Normal bowel sounds, Soft and benign, Non-distended, Tenderness (Slight pain to the epigastric region) Musculoskeletal: No erythema, No tenderness, No warmth Integumentary: No tenderness/swelling, No erythema, No warmth, No cyanosis Neurological: Normal speech, Normal strength at 5/5 x4 extr, Normal tone, Normal affect - Studies Laboratory Data (last 24 hrs) 06/10/18 23:13: Creatinine Cancelled 06/10/18 23:13: WBC Cancelled, Hgb Cancelled, Hct Cancelled, Plt Count Cancelled 06/10/18 23:13: Sodium Cancelled, Potassium Cancelled, BUN Cancelled, Creatinine Cancelled, Glucose Cancelled, Total Bilirubin Cancelled, AST Cancelled, ALT Cancelled, Alkaline Phosphatase Cancelled, Lipase Cancelled 06/10/18 23:10: Creatinine Cancelled 06/10/18 23:10: WBC Cancelled, Hgb Cancelled, Hct Cancelled, Plt Count Cancelled 06/10/18 23:10: Sodium Cancelled, Potassium Cancelled, BUN Cancelled, Creatinine Cancelled, Glucose Cancelled, Total Bilirubin Cancelled, AST Cancelled, ALT Cancelled, Alkaline Phosphatase Cancelled, Lipase Cancelled 06/10/18 23:00: Creatinine 0.70 06/10/18 23:00: WBC 13.6 H, Hgb 14.6, Hct 43.4, Plt Count 262 06/10/18 23:00: Sodium 138, Potassium 3.8, BUN 10, Creatinine 0.80, Glucose 74, Total Bilirubin 0.4, AST 71 H, ALT 55, Alkaline Phosphatase 121 H, Lipase 1836 H Medications List Reviewed: Yes Assessment & Plan Discharge Plan: Home Plan to discharge in: 72 Hours Physician Review Additional Text: Impression: Acute pancreatitis complicated with mild pancolitis likely related to medication Diabetes mellitus type 2 yji-sjuriha-atjxlrcfo Depression Fatty liver GERD Plan: Acute pancreatitis complicated with mild pancolitis likely related to medication : Will continue with bowel rest. CT scan reviewed. Mild pancolitis noted. Will start IV Flagyl and Cipro. Will check stool for diarrhea. May need to consider evaluating for C diff colitis. Pancreatitis likely related to diabetic medication-Januvia. This was recently started several weeks ago. Will recommend to discontinue Januvia at discharge. Will continue with IV fluids. Once pain has resolved then will slowly advance diet. Will continue to reassess. Encourage ambulation. Provide incentive spirometer. Diabetes mellitus type 2 igp-rsujtyk-ymvkhnqxv: Continue sliding scale. Depression: Continue with her medication. Fatty liver: Noted on CT scan. Will provide education. Will check for hepatitis and HIV. GERD: Will provide PPI. Time Spent Managing Pts Care (In Minutes): 55
[2018-06-11] MEDS ORDERED: TRAMADOL HCL 50 MG TAB PO PRN (12:58)
[2018-06-11] MEDS ORDERED: HYDROCODONE/APAP 7.5/325 MG TAB PO PRN (12:58)
[2018-06-11] MEDS: METRONIDAZOLE 500mg IVPB 500 MG/100 ML BAG IV SCH (17:00)
[2018-06-11] MEDS: D5 0.9 NS 1,000 ML IV SCH (17:30)
[2018-06-11] MEDS: CIPROFLOXACIN 400mg IV 400 MG/200 ML BAG IV SCH (20:27)
[2018-06-12] MEDS: METRONIDAZOLE 500mg IVPB 500 MG/100 ML BAG IV SCH ×3 (00:46→18:05)
[2018-06-12] MEDS: NA CHLORIDE 0.9% 1,000 ML IV SCH (02:52)
[2018-06-12] MEDS: D5 0.9 NS 1,000 ML IV SCH (04:56)
[2018-06-12] MEDS: INSULIN -REGULAR HUMAN 50 UNIT/0.5 ML ML SQ SCH ×4 (06:00→21:00)
[2018-06-12 06:53] LABS: Absolute Lymphocytes (CBC) 1.7 K/uL (0.7-4.9); Absolute Monocytes 0.4 K/uL (0.1-1.3); Absolute Neutrophil 3.5 K/uL (1.8-8.0); Basophils % 0.5 % (0-1.3); Hematocrit 34.7 % (36.0-45.0); Lymphocytes % 23.2 % (15.3-44.8); MCV 88.6 fL (80-100); MPV 8.6 fL (7.6-11.3); Monocytes % 5.7 % (3.3-12.3); RBC Red Blood Cell Count 3.92 M/uL (3.86-4.86)
[2018-06-12 07:07] LABS: ALT/SGPT 133 U/L (12-78); AST/SGOT 89 U/L (15-37); Albumin 2.9 g/dL (3.4-5.0); Alkaline Phosphatase 114 U/L (45-117); BUN Blood Urea Nitrogen 5 mg/dL (7-18); Bicarbonate 30 mmol/L (21-32); Bilirubin Total 0.3 mg/dL (0.2-1.0); Glucose Level 127 mg/dL (74-106); Potassium 3.8 mmol/L (3.5-5.1); Protein, Total 6.1 g/dL (6.4-8.2); Sodium Level 144 mmol/L (136-145)
[2018-06-12 07:22] LABS: Blood Morphology Comment NOT SEEN (NOT SEEN); Platelet Estimate ADEQ; Polychromasia 1+; Urine White Blood Cell Casts OK
[2018-06-12] MEDS: NACHLORIDE 0.45% 1,000 ML IV SCH ×2 (09:00→18:05)
[2018-06-12] MEDS: SERTRALINE HCL 50 MG TAB PO SCH (09:00)
[2018-06-12] MEDS: CIPROFLOXACIN 400mg IV 400 MG/200 ML BAG IV SCH ×2 (09:44→20:55)
[2018-06-12] MEDS: ENOXAPARIN 40 MG/0.4 ML SQ SCH (09:45)
[2018-06-12] MEDS: PANTOPRAZOLE 40 MG INJ IVP SCH (09:45)
[2018-06-12 11:43] VITALS: O2SAT 97
--- NOTE | 2018-06-12 14:50 | P.PN ---
Subjective Date of Service: 06/12/18 Primary Care Provider: Dr. Good Chief Complaint: acute pancreatitis Subjective: Improving, Doing well Physical Examination - Vital Signs Temperature: 97 F Blood Pressure: 113/66 Pulse: 66 Respirations: 18 Pulse Ox (%): 97 - Physical Exam General: Alert, In no apparent distress, Oriented x3, Cooperative HEENT: Atraumatic Neck: Supple Respiratory: Clear to auscultation bilaterally, Normal air movement Cardiovascular: Normal pulses, Regular rate/rhythm Gastrointestinal: Normal bowel sounds, Soft and benign, Non-distended, No tenderness, No masses, No rebound, No guarding Musculoskeletal: No erythema, No tenderness, No warmth Integumentary: No tenderness/swelling, No erythema, No warmth, No cyanosis Neurological: Normal speech, Normal strength at 5/5 x4 extr, Normal tone, Normal affect - Studies Medications List Reviewed: Yes Assessment & Plan Discharge Plan: Home Plan to discharge in: 24 Hours Physician Review Additional Text: Impression: Acute pancreatitis complicated with mild pancolitis likely related to medication Diabetes mellitus type 2 cur-ovtoaqc-tqwtdesgb Depression Fatty liver GERD Plan: Acute pancreatitis complicated with mild pancolitis likely related to medication : Patient improved. Will start clear liquid diet and advance as tolerated. C diff culture negative. Case discussed with patient. Will continue with IV antibiotic therapy. Pancreatitis likely related to diabetic medication- Januvia. This was recently started several weeks ago. Will recommend to discontinue Januvia at discharge. Will continue with IV fluids. Encourage ambulation. Will continue to reassess. Encourage ambulation. Provide incentive spirometer. Anticipate discharge tomorrow Diabetes mellitus type 2 mml-ufrgjzk-kkcysksgk: Continue sliding scale. Depression: Continue with her medication. Fatty liver: Noted on CT scan. Will provide education. Will check for hepatitis and HIV. GERD: Will continue to provide PPI. Time Spent Managing Pts Care (In Minutes): 55
[2018-06-13] MEDS: METRONIDAZOLE 500mg IVPB 500 MG/100 ML BAG IV SCH ×2 (00:18→08:31)
[2018-06-13] MEDS: NACHLORIDE 0.45% 1,000 ML IV SCH (04:26)
[2018-06-13 07:02] LABS: Absolute Monocytes 0.4 K/uL (0.1-1.3); Absolute Neutrophil 3.1 K/uL (1.8-8.0); Basophils % 0.3 % (0-1.3); Eosinophils % 16.7 % (0-4.4); Hematocrit 34.7 % (36.0-45.0); Lymphocytes % 29.6 % (15.3-44.8); MCH 29.9 pg (27.0-35.0); MCV 88.3 fL (80-100); Monocytes % 6.4 % (3.3-12.3); RBC Red Blood Cell Count 3.93 M/uL (3.86-4.86)
[2018-06-13 07:04] LABS: ALT/SGPT 91 U/L (12-78); AST/SGOT 45 U/L (15-37); Alkaline Phosphatase 106 U/L (45-117); BUN Blood Urea Nitrogen 2 mg/dL (7-18); Bicarbonate 34 mmol/L (21-32); Bilirubin Total 0.3 mg/dL (0.2-1.0); Glucose Level 119 mg/dL (74-106); Potassium 3.7 mmol/L (3.5-5.1); Protein, Total 6.3 g/dL (6.4-8.2); Sodium Level 141 mmol/L (136-145)
[2018-06-13] MEDS: INSULIN -REGULAR HUMAN 50 UNIT/0.5 ML ML SQ SCH (07:30)
[2018-06-13] MEDS: CIPROFLOXACIN 400mg IV 400 MG/200 ML BAG IV SCH (08:31)
[2018-06-13] MEDS: ENOXAPARIN 40 MG/0.4 ML SQ SCH (08:32)
[2018-06-13] MEDS: SERTRALINE HCL 50 MG TAB PO SCH (08:32)
[2018-06-13] MEDS: PANTOPRAZOLE 40 MG INJ IVP SCH (08:32)
[2018-06-13 09:06] LABS: Blood Morphology Comment NOT SEEN (NOT SEEN); Platelet Estimate ADEQ; Urine White Blood Cell Casts OK
--- NOTE | 2018-06-13 09:11 | P.DS ---
Admission Date: 06/11/18 Discharge Date: 06/13/18 Primary Care Provider: Dr. Good Disposition: ROUTINE DISCHARGE Discharge Condition: GOOD Reason for Admission: acute pancreatitis Consultations: none Procedures: CT scan: COMPARISON: Abdomen Pelvis W Contrast dated 03/27/2018; Abdomen Pelvis W Contrast dated 09/30/2017; Abdomen Pelvis W Contrast dated 01/07/2017; Abdomen Pelvis W Contrast dated 06/24/2016 TECHNIQUE: Biphasic CT imaging of the abdomen and pelvis was performed with 100 ml non-ionic IV contrast. All CT scans are performed using dose optimization technique as appropriate and may include automated exposure control or mA/KV adjustment according to patient size. FINDINGS: The lung bases are clear.Cholecystectomy clips. The liver is mildly prominent in size with a nodular contour and mild fatty liver infiltration suspected. The spleen, adrenal glands and kidneys are within normal limits. Mild pancreatic atrophy is present, unchanged. No bowel obstruction, free air, free fluid or abscess. A fluid-filled colon is present with several diverticula noted particularly in the sigmoid colon. The appendix is slightly prominent in size measuring 6 mm, however have a similar appearance on the comparative examination. No evidence of significant lymphadenopathy. No suspicious bony findings. IMPRESSION: A mild pancolitis is suspected with the colon filled with fluid and liquid stool. The appendix appears mildly prominent, however, similar to the comparative examination. ABUS: COMPARISON: Abdomen Exam Limited dated 09/30/2017; Abdomen Pelvis W Contrast dated 06/11/2018 FINDINGS: The liver is normal in size, shape and echotexture. No focal liver lesions or intrahepatic biliary dilatation is seen. The gallbladder surgically absent. Common bile duct is normal in caliber measuring 4 mm. Both kidneys are normal in size, shape and echotexture. No hydronephrosis, focal lesion of concern or perinephric fluid. The spleen is normal in size measuring 12 cm. The pancreas and aorta are obscured by bowel gas. The visualized aspects of the IVC are grossly normal. IMPRESSION: Unremarkable study except for limited assessment of the pancreas and aorta due to bowel gas. Cholecystectomy. Medical Problem List: Acute pancreatitis complicated with mild pancolitis likely related to medication Diabetes mellitus type 2 ldc-upzkjcb-kwihqqyvm Depression Fatty liver GERD History of diverticulosis Brief History of Present Illness: 48-year-old female presented to emergency room with abdominal pain. Patient found to have pancreatitis with mild colitis. Patient admitted for further treatment. Hospital Course: Patient presented with abdominal pain Patient found to have acute pancreatitis complicated with mild pancolitis likely related to medication-Januvia. Patient reports that this was started several weeks ago. Januvia can cause pancreatitis. During the course of her stay patient received IV antibiotic therapy and fluids. Patient did well. C diff culture negative. At discharge she was able to tolerate her diet. No significant abdominal pain, nausea or vomiting identified. At discharge she will continue with Cipro 500 mg twice daily and Flagyl 500 mg 3 times a day for 7 days. Recommendation is for the patient to follow up with GI in 2-4 weeks to monitor progress. Recommendation to have colonoscopy in 6-8 weeks. Patient reports a history of having a colonoscopy earlier in the year. Patient with history of diverticulitis and diverticulosis in the past. Patient will continue with a low-fat soft diet at this time. Patient may continue to take Bentyl 20 mg 4 times a day as needed for spasm. Patient has diabetes mellitus type 2. Medications adjusted during her stay. Januvia discontinued due to the possibility of side effect of pancreatitis. At discharge she will continue with glimepiride 4 mg 1 pill twice daily and Glucophage XR 500 mg 2 pills twice daily. Recommendation is to maintain blood sugars less than 140 fasting and less than 200 after meals. Further adjustment can be done by her PCP. Patient with depression. Patient will continue with her medication-Zoloft 50 mg daily. Patient appears to have mild fatty liver. Liver function tests were elevated. Hepatitis panel and HIV panel pending at discharge. This can be followed up as an outpatient. Lifestyle modification education and education on fatty liver will be provided. Patient may follow up with GI to further address. Patient likely has GERD. Prilosec has been discontinued. This has been changed to Protonix. Patient will continue with Protonix 40 mg 1 pill once daily. This can be further addressed as an outpatient by GI. Vital Signs/Physical Exam: Temp Pulse Resp BP Pulse Ox 98.2 F 60 18 116/56 L 94 06/13/18 04:00 06/13/18 04:00 06/13/18 04:00 06/13/18 04:00 06/13/18 04:00 General: Alert, In no apparent distress, Oriented x3, Cooperative HEENT: Atraumatic, Mucous membr. moist/pink Neck: Supple, No Thyromegaly Respiratory: Clear to auscultation bilaterally, Normal air movement Cardiovascular: Normal pulses, Regular rate/rhythm Gastrointestinal: Normal bowel sounds, Soft and benign, Non-distended, No tenderness, No masses, No rebound, No guarding Musculoskeletal: No erythema, No tenderness, No warmth Integumentary: No tenderness/swelling, No erythema, No warmth, No cyanosis Neurological: Normal speech, Normal strength at 5/5 x4 extr, Normal tone, Normal affect Lymphatics: No axilla or inguinal lymphadenopathy Laboratory Data at Discharge: WBC 6.6 K/uL (4.3-10.9) 06/13/18 06:16 Hgb 11.7 g/dL (12.0-15.0) L 06/13/18 06:16 Hct 34.7 % (36.0-45.0) L 06/13/18 06:16 Plt Count 176 K/uL (152-406) 06/13/18 06:16 Sodium 141 mmol/L (136-145) 06/13/18 06:16 Potassium 3.7 mmol/L (3.5-5.1) 06/13/18 06:16 BUN 2 mg/dL (7-18) L 06/13/18 06:16 Creatinine 0.60 mg/dL (0.55-1.3) 06/13/18 06:16 Glucose 119 mg/dL (74-106) H 06/13/18 06:16 Total Bilirubin 0.3 mg/dL (0.2-1.0) 06/13/18 06:16 AST 45 U/L (15-37) H 06/13/18 06:16 ALT 91 U/L (12-78) H 06/13/18 06:16 Alkaline Phosphatase 106 U/L (45-117) 06/13/18 06:16 Triglycerides 92 mg/dL (<150) 06/11/18 08:20 Cholesterol 145 mg/dL (<200) 06/11/18 08:20 HDL Cholesterol 35 mg/dL (40-60) L 06/11/18 08:20 Cholesterol/HDL Ratio 4.14 06/11/18 08:20 Lipase 39 U/L (73-393) L 06/13/18 06:16 Home Medications: Glimepiride [Amaryl] 1 tab PO BID 09/30/17 Metformin ER [Glucophage ER*] 2 tab PO BID 09/30/17 Sertraline [Zoloft*] 1 tab PO DAILY 09/30/17 Dicyclomine [Bentyl*] 20 mg PO QID 06/11/18 Ciprofloxacin HCl [Cipro 500 MG Tablet] 500 mg PO BID #14 tab 06/13/18 metroNIDAZOLE [Flagyl] 500 mg PO Q8H #21 tablet 06/13/18 New Medications: Ciprofloxacin HCl [Cipro 500 MG Tablet] 500 mg PO BID #14 tab metroNIDAZOLE [Flagyl] 500 mg PO Q8H #21 tablet Patient Discharge Instructions: 1. Patient will need a follow up with a PCP in 1 week to follow up this hospitalization. 2. Patient presented with abdominal pain Patient found to have acute pancreatitis complicated with mild pancolitis likely related to medication-Januvia. Patient reports that this was started several weeks ago. Januvia can cause pancreatitis. During the course of her stay patient received IV antibiotic therapy and fluids. C diff culture negative. At discharge she was able to tolerate her diet. No significant abdominal pain, nausea or vomiting identified. At discharge she will continue with Cipro 500 mg twice daily and Flagyl 500 mg 3 times a day for 7 days. Recommendation is for the patient to follow up with GI in 2-4 weeks to monitor progress. Recommendation to have colonoscopy in 6-8 weeks. Patient reports a history of having a colonoscopy earlier in the year. Patient with history of diverticulitis and diverticulosis in the past. Patient will continue with a low -fat soft diet at this time. Patient may continue to take Bentyl 20 mg 4 times a day as needed for spasm. 3. Patient has diabetes mellitus type 2. Medications adjusted during her stay. Januvia discontinued due to the possibility of side effect of pancreatitis. At discharge she will continue with glimepiride 4 mg 1 pill twice daily and Glucophage XR 500 mg 2 pills twice daily. Recommendation is to maintain blood sugars less than 140 fasting and less than 200 after meals. Further adjustment can be done by her PCP. 4. Patient with depression. Patient will continue with her medication-Zoloft 50 mg daily. 5. Patient appears to have mild fatty liver. Liver function tests were elevated. Hepatitis panel and HIV panel pending at discharge. This can be followed up as an outpatient. Lifestyle modification education and education on fatty liver will be provided. Patient may follow up with GI to further address. 6. Patient likely has GERD. Prilosec has been discontinued. This has been changed to Protonix. Patient will continue with Protonix 40 mg 1 pill once daily. This can be further addressed as an outpatient by GI. Diet: Low-fat GI soft Activity: Ad kiara Time spent managing pt's care (in minutes): 55
[2018-06-13 11:04] VITALS: BP 130/59; TEMP 98.5
[2018-06-15 04:28] LABS: HBsAG Nonreactive (Nonreactive); Hepatitis A IgM Antibody Nonreactive
[2018-06-15 11:54] LABS: HIV 1/2 Antibody Diff Not indicated.; HIV AG/AB 4TH GEN Non-reactive (Non-reactive)
== END 2018-06-13 12:09 | disposition home or self-care (01) | DRG 439 ==
LOC: ER 21:37 → ERHOLD 06-11 02:26 → 2ND 06-11 02:45
PROVIDERS: ADMIT Internal Medicine; ATTEND Family Medicine
DX: K85.90 Acute pancreatitis without necrosis or infection, unspecified (principal); K52.1 Toxic gastroenteritis and colitis; E11.9 Type 2 diabetes mellitus without complications; Z79.84 Long term (current) use of oral hypoglycemic drugs; F32.9 Major depressive disorder, single episode, unspecified; K76.0 Fatty (change of) liver, not elsewhere classified; K21.9 Gastro-esophageal reflux disease without esophagitis; T38.3X5A Adverse effect of insulin and oral hypoglycemic [antidiabetic] drugs, initial encounter; Y92.019 Unspecified place in single-family (private) house as the place of occurrence of the external cause
CPT/HCPCS: 36415; 74177; 76700; 80048; 80053; 80061; 80074; 80076; 81003; 81025; 82962; 83036; 83690; 84439; 84443; 85025; 87045; 87046; 87389; 87493; 96361; 96374; 96375; 99285; C9113; J0744; J1650; J2405; J7030; Q9967

== ENCOUNTER 2018-08-20 15:14 | Emergency (ER) | payer OTHER ==
--- OUTSIDE RECORDS SUMMARY | 2018-08-20 15:23 | XMS REPORT | Clinical Summary ---
:1970 Author Organization [facility] Address [address] [place] [address] Care Team Providers Name Role Phone Dolores [...] Not on file Results Not on fileafter 08/19/2017 Insurance Payer Benefit Plan / Group Subscriber ID Type Phone Address [facility] xxxxxxxxxxxx HMO/POS [phone] CHOICE EXCHANGE (Work) [id number]
--- OUTSIDE RECORDS SUMMARY | 2018-08-20 15:23 | XMS REPORT ---
:1970 [facility] Address [address] Chang [address] [place] [id number] Care Team Providers Name Role Phone VELÁSQUEZ, LIZZETTE PARRA Unavailable Unavailable Problems This patient has no known problems. Allergies, Adverse Reactions, Alerts This patient has no known allergies or adverse reactions. Medications This patient has no known medications. Results Test Description Test Time Test Comments Text Results Atomic Results Result Comments MM, STEREOTACTIC 2017-05-14 Reason for Addendum BeginsMRN#: BIOPSY, BREAST, 15:59:00 Exam:->calcification [id number]: LEFT 05/14/2017 Lizzette Velásquez M.D. 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 Addendum EndsN#: [id number] - MM, STEREOTACTIC BIOPSY, BREAST, LEFTSTEREOTACTIC GUIDED [...] correct location, five specimens were obtained using LarkyIVA device. A clip was inserted into the [...] the calcifications. Lizzette Velásquez M.D. pth/penrad:05/09/2017 11:07:57 Crna: Felicia Rizzo RT(R)(M), [facility] [id number] UE EXAM 2017-05-12 Surgical Pathology Report 12:48:00 Case: [id number] Authorizing Provider: Lizzette Velásquez MD Collected: 05/09/2017 1110 Ordering Location: [facility] Received: 05/09/2017 1312 Pathologist: Jackie Maradiaga MD Specimen: Breast, Left, LEFT MIDDLE 12 BREAST CALCIFICATION BREAST, LEFT, MIDDLE 12 O'CLOCK, CALCIFICATIONS, STEREOTACTIC CORE NEEDLE BIOPSY: - HYALINIZED FIBROADENOMA - COLUMNAR CELL HYPERPLASIA - COLUMNAR CELL CHANGES - MICROCALCIFICATIONS, COARSE, ASSOCIATED WITH FIBROADENOMA Signing Pathologist Direct Phone Line: [phone] signed by Jackie Maradiaga MD on 05/12/2017 at 12:48 PMIn the sections examined, no atypical hyperplasia or carcinoma is identified.[id number] lesion Left middle 12 o'clock breast calcifications The specimen is received in a formalin-filled container labeled with the patient's information and labeled "left middle 12 o'clock breast calcifications" and consists of multiple yellow-white breast core biopsies ranging in length from 0.6 to 2.5 cm.Ink code: Black.The specimen is submitted entirely in A1 and A2. CG/ewPerformed.[facility], Department of Pathology, [address] [place] [address], [place] [address], MM, DIGITAL, 2017-05-09 Left breast #[id number] - UNILATERAL, 11:07:00 calcifications MM, DIGITAL, UNILATERAL, [...] pathology results. Lizzette Velásquez M.D. pth/:05/09/2017 11:07:15 Crna: Felicia IRVIN (R)), [facility] Mammogram BI-RADS: Post-procedure mammogram for marker placement [id number] [place], 2017-05-09 Reason for exam:->Left #[id number] - SPECIMEN, 11:06:00 breast calcifications MM, MAMMO, SPECIMEN, RADIOGRAPH, LEFT RADIOGRAPH, LEFTSPECIMEN LEFT BREAST: 05/09/2017Five stereotactic guided biopsy specimens were imaged for the area of calcifications located in the left breast at 12 o'clock middle depth. IMPRESSION: SPECIMENThe imaged specimens includes the calcifications. Lizzette Velásquez M.D. pth/:05/09/2017 11:06:40 Crna: Felicia SCHNEIDER)(M), [facility] [id number]
[2018-08-20 16:18] LABS: Absolute Lymphocytes (CBC) 2.6 K/uL (0.7-4.9); Absolute Monocytes 0.6 K/uL (0.1-1.3); Absolute Neutrophil 6.4 K/uL (1.8-8.0); Basophils % 0.7 % (0-1.3); Eosinophils % 1.9 % (0-4.4); Hematocrit 39.2 % (36.0-45.0); Lymphocytes % 26.1 % (15.3-44.8); MPV 8.7 fL (7.6-11.3); Monocytes % 6.4 % (3.3-12.3); RBC Red Blood Cell Count 4.43 M/uL (3.86-4.86)
[2018-08-20] MEDS ORDERED: MORPHINE 4 MG/ML SYR ONE (16:21)
[2018-08-20] MEDS ORDERED: NA CHLORIDE 0.9% 1,000 ML ONE (16:21)
[2018-08-20] MEDS ORDERED: ONDANSETRON 4 MG/2 ML VIAL ONE (16:21)
[2018-08-20 16:36] LABS: ALT/SGPT 18 U/L (12-78); AST/SGOT 12 U/L (15-37); Albumin 3.6 g/dL (3.4-5.0); Alkaline Phosphatase 93 U/L (45-117); BUN Blood Urea Nitrogen 10 mg/dL (7-18); Bicarbonate 32 mmol/L (21-32); Bilirubin Direct < 0.1 mg/dL (0-0.2); Bilirubin Total 0.3 mg/dL (0.2-1.0); Glucose Level 96 mg/dL (74-106); Lipase 218 U/L (73-393); Potassium 3.4 mmol/L (3.5-5.1); Protein, Total 7.3 g/dL (6.4-8.2); Sodium Level 139 mmol/L (136-145)
--- NOTE | 2018-08-20 17:06 | RAD REPORT ---
EXAM DESCRIPTION: CT - Abdomen Pelvis W Contrast - 08/20/2018 4:55 pm CLINICAL HISTORY: Left-sided abdominal pain COMPARISON: CT imaging May 2018 TECHNIQUE: Biphasic, helical CT imaging of the abdomen and pelvis was performed following 100 ml non -ionic IV contrast. No oral contrast was given. All CT scans are performed using dose optimization technique as appropriate and may include automated exposure control or mA/KV adjustment according to patient size. FINDINGS: No suspicious findings in the lung bases. Liver is prominent in size. There is a subtle nodularity to the liver capsule. No focal liver lesions identifiable. Correlation can be made with liver function studies. Spleen is prominent as well an wi thout a focal abnormality. No pancreatic mass identifiable. Pancreatic tissue is similar to the grecia rison study. Cholecystectomy clips are present. No abnormal biliary tree dilatation. Symmetric renal function is seen with no hydronephrosis or suspicious renal mass. No pyelonephritis o r acute parenchymal process. No bladder abnormalities. No adrenal abnormalities. Uterus is absent. No ovarian abnormality seen. No gastric dilatation or gastric wall thickening. No dilated small bowel loops. Appendix is normal. F luid and stool are present in the colon from cecum through splenic flexure. In the mid descending col on there is short segment circumferential wall thickening. There is stranding and edema in the adjace nt fat. Moderate stool volume is present in the sigmoid colon and rectum. No abscess, free air or free fluid. No extravasation of bowel content suspected. No hernia, mass o r bulky lymphadenopathy. No suspicious bony findings. IMPRESSION: Short segment circumferential wall thickening mid descending colon with surrounding jayesh a and small quantity of fluid. Patient has a mild left-sided diverticulosis pattern and this is most likely acute diverticulitis. No abscess or surgically emergent finding. Malignancy of the descending colon cannot be excluded and follow-up colonoscopy would be recommended following medical management. Prominent liver and spleen with subtle hepatic capsular nodularity. No focal lesions. Correlation can be made with liver function studies.
[2018-08-20] MEDS ORDERED: CIPROFLOXACIN 400mg IV 400 MG/200 ML BAG IV ONE (17:51)
[2018-08-20] MEDS ORDERED: METRONIDAZOLE 500mg IVPB 500 MG/100 ML BAG IV ONE (17:51)
[2018-08-20] MEDS ORDERED: KETOROLAC 30 MG/ML INJ ONE (17:51)
--- NOTE | 2018-08-20 19:35 | EDPHYS ---
Physician Documentation [facility] Name: Dena Nance Age: 48 yrs Sex: Female : 1970 Arrival Date: 08/20/2018 Time: 15:17 Bed 14 Private MD: ED Physician Dennis Ruvalcaba HPI: 08/20 16:00 This 48 yrs old Female presents to ER via Ambulatory with complaints of pm1 Abdominal Pain. 16:00 The patient presents with abdominal pain in the left upper quadrant. Onset: The pm1 symptoms/episode began/occurred last night. The symptoms do not radiate. Associated signs and symptoms: Pertinent positives: nausea, Pertinent negatives: chest pain, diarrhea, dysuria, fever, shortness of breath, vomiting. The symptoms are described as sharp. Modifying factors: The symptoms are alleviated by nothing, the symptoms are aggravated by nothing. Severity of pain: in the emergency department the pain is actually worse. The patient has experienced a previous episode, last year. The patient has not recently seen a physician. 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 - Social history:: Smoking status: Patient/guardian denies using tobacco. - Ebola Screening: : No symptoms or risks identified at this time. ROS: 16:30 Constitutional: Negative for fever, chills, and weight loss, Eyes: Negative for injury, pm1 pain, redness, and discharge, ENT: Negative for injury, pain, and discharge, Neck: Negative for injury, pain, and swelling, Cardiovascular: Negative for chest pain, palpitations, and edema, Respiratory: Negative for shortness of breath, cough, wheezing, and pleuritic chest pain. 16:30 Back: Negative for injury and pain, : Negative for injury, bleeding, discharge, and swelling, MS/Extremity: Negative for injury and deformity, Skin: Negative for injury, rash, and discoloration, Neuro: Negative for headache, weakness, numbness, tingling, and seizure. 16:30 Abdomen/GI: Positive for abdominal pain, nausea, Negative for vomiting, diarrhea, constipation. Exam: 16:30 Constitutional: This is a well developed, well nourished patient who is awake, alert, pm1 and in no acute distress. Head/Face: Normocephalic, atraumatic. Eyes: Pupils equal round and reactive to light, extra-ocular motions intact. Lids and lashes normal. Conjunctiva and sclera are non-icteric and not injected. Cornea within normal limits. Periorbital areas with no swelling, redness, or edema. ENT: Nares patent. No nasal discharge, no septal abnormalities noted. Tympanic membranes are normal and external auditory canals are clear. Oropharynx with no redness, swelling, or masses, exudates, or evidence of obstruction, uvula midline. Mucous membranes moist. Neck: Trachea midline, no thyromegaly or masses palpated, and no cervical lymphadenopathy. Supple, full range of motion without nuchal rigidity, or vertebral point tenderness. No Meningismus. Chest/axilla: Normal chest wall appearance and motion. Nontender with no deformity. No lesions are appreciated. Cardiovascular: Regular rate and rhythm with a normal S1 and S2. No gallops, murmurs, or rubs. Normal PMI, no JVD. No pulse deficits. Respiratory: Lungs have equal breath sounds bilaterally, clear to auscultation and percussion. No rales, rhonchi or wheezes noted. No increased work of breathing, no retractions or nasal flaring. 16:30 Back: No spinal tenderness. No costovertebral tenderness. Full range of motion. Skin: Warm, dry with normal turgor. Normal color with no rashes, no lesions, and no evidence of cellulitis. MS/ Extremity: Pulses equal, no cyanosis. Neurovascular intact. Full, normal range of motion. 16:30 Abdomen/GI: Inspection: abdomen appears normal, Bowel sounds: normal, Palpation: soft, mild abdominal tenderness, in the left upper quadrant, mass, is not appreciated, rebound tenderness, is not appreciated. 16:30 Neuro: Orientation: is normal, Motor: is normal, moves all fours. Vital Signs: 15:20 BP 119 / 60; Pulse 85; Resp 16 S; Temp 97.4(TE); Pulse Ox 97% on R/A; Weight 62.14 kg aa5 (R); Height 5 ft. 4 in. (162.56 cm) (R); Pain 9/10; 16:30 BP 122 / 74; Pulse 75; Resp 16; Temp 97.5; Pulse Ox 99% on R/A; Pain 4/10; ls4 18:00 BP 118 / 70; Pulse 78; Resp 16; Pulse Ox 99% on R/A; Pain 4/10; ls4 19:20 BP 118 / 72; Pulse 78; Resp 16; Temp 98.0; Pulse Ox 99% on R/A; Pain 3/10; ls4 15:20 Body Mass Index 23.52 (62.14 kg, 162.56 cm) aa5 MDM: 15:32 Patient medically screened. pm1 19:16 Data reviewed: vital signs. Data interpreted: Pulse oximetry: on room air is 97 %. pm1 Interpretation: normal. Counseling: I had a detailed discussion with the patient and/or guardian regarding: the historical points, exam findings, and any diagnostic results supporting the discharge/admit diagnosis, lab results, radiology results, the need for outpatient follow up, to return to the emergency department if symptoms worsen or persist or if there are any questions or concerns that arise at home. 19:16 Special discussion: Based on the patient's Hx, exam, and Dx evaluation, there is no pm1 indication for emergent surgery or inpatient Tx. It is understood by the patient/guardian that if the Sx's persist or worsen they need to return immediately for re-evaluation. 08/20 15:39 Order name: Basic Metabolic Panel; Complete Time: 16:43 pm1 08/20 15:39 Order name: CBC with Diff; Complete Time: 16:29 pm1 08/20 15:39 Order name: Creatinine for Radiology; Complete Time: 16:43 pm1 08/20 15:39 Order name: Hepatic Function; Complete Time: 16:43 pm1 08/20 15:39 Order name: Lipase; Complete Time: 16:43 pm1 08/20 15:39 Order name: ETOH Level; Complete Time: 17:03 pm1 08/20 15:39 Order name: IV Saline Lock; Complete Time: 16:08 pm1 08/20 15:39 Order name: CT Abd/Pelvis - W/Contrast: IV contrast only; Complete Time: 17:08 pm1 08/20 15:39 Order name: Labs collected and sent; Complete Time: 16:08 pm1 Administered Medications: 16:14 Drug: morphine 4 mg Route: IVP; Site: right antecubital; ls4 16:45 Follow up: Response: No adverse reaction; Marked relief of symptoms ls4 16:14 Drug: Zofran 4 mg Route: IVP; Site: right antecubital; ls4 16:45 Follow up: Response: No adverse reaction; Marked relief of symptoms ls4 16:15 Drug: NS 0.9% 1000 ml Route: IV; Rate: 1000 ml; Site: right antecubital; ls4 18:09 Follow up: IV Status: Completed infusion; IV Intake: 1000ml ls4 17:46 Drug: TORadol 30 mg Route: IVP; Site: right antecubital; ls4 18:00 Follow up: Response: No adverse reaction; Marked relief of symptoms ls4 17:49 Drug: Flagyl 500 mg Volume: 100 ml; Route: IVPB; Rate: 200 ml/hr; Infused Over: 30 ls4 mins; Site: right antecubital; 18:20 Follow up: IV Status: Completed infusion; IV Intake: 100ml ls4 18:10 Drug: Cipro 400 mg Volume: 200 ml; Route: IVPB; Infused Over: 60 mins; Site: right ls4 antecubital; 18:58 Follow up: Response: No adverse reaction; IV Status: Completed infusion; IV Intake: ls4 200ml Disposition: 08/20/18 19:34 Discharged to Home. Impression: Diverticulitis of both small and large intestine without perforation or abscess without bleeding. - Condition is Stable. - Discharge Instructions: Diverticulitis. - Prescriptions for Flagyl 500 mg Oral Tablet - take 1 tablet by ORAL route every 8 hours for 10 days; 30 tablet. Tylenol- Codeine #3 300-30 mg Oral Tablet - take 2 tablets by ORAL route every 6 hours As needed; 20 tablet. Cipro 500 mg Oral Tablet - take 1 tablet by ORAL route every 12 hours for 10 days; 20 tablet. - Medication Reconciliation Form, Thank You Letter, Antibiotic Education, Prescription Opioid Use, Work release form form. - Follow up: Emergency Department; When: As needed; Reason: Worsening of condition. Follow up: Private Physician; When: 2 - 3 days; Reason: Recheck today's complaints, Continuance of care, Re-evaluation by your physician. - Problem is new. - Symptoms have improved. Signatures: Dispatcher [employer] EDOK Rufina Hammond RN RN aa5 Robin Moise NP MANAGER GRANT pm1 Abby Braun RN RN ls4 Corrections: (The following items were deleted from the chart) 16:27 15:20 Allergies: NKA; [place] [id number] 16:27 15:20 Home Meds: glimepiride 4 mg Oral tab twice a day; [place] [id number] 16:27 15:20 Home Meds: metformin 1,000 mg Oral tab 2 times per day; [place] [id number] 16:27 15:20 Home Meds: sertraline 50 mg Oral tab 1 tab once daily; [place] [id number] 16:27 15:20 Home Meds: dicyclomine 10 mg Oral cap 4 times per day; [place] [id number] 16:27 15:20 PMHx: Diabetes - NIDDM; [place] [id number] 16:27 15:20 PMHx: Diverticulitis; [place] [id number] 16:27 15:20 PMHx: fatty liver; [place] [id number] 16:27 15:20 PMHx: Pancreatitis; [place] [id number] 16:27 15:20 Home Meds: omeprazole 40 mg Oral cpDR once daily; [place] [id number] 16:27 15:21 PSHx: Cholecystectomy; [place] [id number] 16:27 15:21 PSHx: Hysterectomy; [place] [id number] 20:14 19:34 08/20/2018 19:34 Discharged to Home. Impression: Diverticulitis of both small and ls4 large intestine without perforation or abscess without bleeding. Condition is Stable. Forms are Medication Reconciliation Form, Thank You Letter, Antibiotic Education, Prescription Opioid Use. Follow up: Emergency Department; When: As needed; Reason: Worsening of condition. Follow up: Private Physician; When: 2 - 3 days; Reason: Recheck today's complaints, Continuance of care, Re-evaluation by your physician. Problem is new. Symptoms have improved. pm1
--- NOTE | 2018-08-20 19:35 | ER ---
Nurse's Notes [facility] Name: Dena Nance Age: 48 yrs Sex: Female : 1970 Arrival Date: 08/20/2018 Time: 15:17 Bed 14 Private MD: Diagnosis: Diverticulitis of both small and large intestine without perforation or abscess without bleeding Presentation: 08/20 15:18 Presenting complaint: Patient states: Pt reports LUQ pain that began last night. Denies aa5 N/V/D. Transition of care: patient was not received from another setting of care. Onset of symptoms was July 2018. Risk Assessment: Do you want to hurt yourself or someone else? Patient reports no desire to harm self or others. Initial Sepsis Screen: Does the patient meet any 2 criteria? No. Patient's initial sepsis screen is negative. Does the patient have a suspected source of infection? No. Patient's initial sepsis screen is negative. Care prior to arrival: None. 15:18 Method Of Arrival: Ambulatory aa5 15:18 Acuity: MARIANA 3 aa5 Triage Assessment: 16:22 General: Appears in no apparent distress. Behavior is calm, cooperative. Pain: ls4 Complains of pain in left upper quadrant Pain currently is 6 out of 10 on a pain scale. GI: Abdomen is non-distended, Bowel sounds present X 4 quads. Abdomen is tender to palpation. : No signs and/or symptoms were reported regarding the genitourinary system. 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 - Social history:: Smoking status: Patient/guardian denies using tobacco. - Ebola Screening: : No symptoms or risks identified at this time. Screenin:21 Abuse screen: Denies threats or abuse. Denies injuries from another. Nutritional ls4 screening: No deficits noted. Tuberculosis screening: No symptoms or risk factors identified. Fall Risk None identified. Assessment: 16:30 Reassessment: No changes from previously documented assessment. Patient and/or family ls4 updated on plan of care and expected duration. Pain level reassessed. Patient is alert, oriented x 3, equal unlabored respirations, skin warm/dry/pink. General: see triage assessment . 17:30 Reassessment: No changes from previously documented assessment. Patient and/or family ls4 updated on plan of care and expected duration. Pain level reassessed. Patient is alert, oriented x 3, equal unlabored respirations, skin warm/dry/pink. 19:00 Reassessment: Patient appears in no apparent distress at this time. Patient and/or ls4 family updated on plan of care and expected duration. Pain level reassessed. Patient is alert, oriented x 3, equal unlabored respirations, skin warm/dry/pink. Vital Signs: 15:20 BP 119 / 60; Pulse 85; Resp 16 S; Temp 97.4(TE); Pulse Ox 97% on R/A; Weight 62.14 kg aa5 (R); Height 5 ft. 4 in. (162.56 cm) (R); Pain 9/10; 16:30 BP 122 / 74; Pulse 75; Resp 16; Temp 97.5; Pulse Ox 99% on R/A; Pain 4/10; ls4 18:00 BP 118 / 70; Pulse 78; Resp 16; Pulse Ox 99% on R/A; Pain 4/10; ls4 19:20 BP 118 / 72; Pulse 78; Resp 16; Temp 98.0; Pulse Ox 99% on R/A; Pain 3/10; ls4 15:20 Body Mass Index 23.52 (62.14 kg, 162.56 cm) aa5 ED Course: 15:17 Patient arrived in ED. mr 15:18 Arm band placed on. aa5 15:19 Triage completed. aa5 15:26 Abby Braun, SHADE is Primary Nurse. ls4 15:31 [facility] pm1 15:31 Dennis Ruvalcaba MD is Attending Physician. pm1 16:06 Radiology exam delayed due to lab results not completed at this time. (BUN/Creatinine). sj 16:21 Patient has correct armband on for positive identification. Bed in low position. Call ls4 light in reach. Side rails up X 1. Pulse ox on. NIBP on. Warm blanket given. 16:23 No provider procedures requiring assistance completed. Initial lab(s) drawn, by pr, ls4 sent to lab. Inserted saline lock: 20 gauge in right antecubital area, using aseptic technique. Blood collected. 16:[address] via wheelchair. az 16:55 CT completed. Patient tolerated procedure well. Patient moved back from CT. 2 16:56 CT Abd/Pelvis - W/Contrast: IV contrast only In Process Unspecified. EDMS Administered Medications: 16:14 Drug: morphine 4 mg Route: IVP; Site: right antecubital; ls4 16:45 Follow up: Response: No adverse reaction; Marked relief of symptoms ls4 16:14 Drug: Zofran 4 mg Route: IVP; Site: right antecubital; ls4 16:45 Follow up: Response: No adverse reaction; Marked relief of symptoms ls4 16:15 Drug: NS 0.9% 1000 ml Route: IV; Rate: 1000 ml; Site: right antecubital; ls4 18:09 Follow up: IV Status: Completed infusion; IV Intake: 1000ml ls4 17:46 Drug: TORadol 30 mg Route: IVP; Site: right antecubital; ls4 18:00 Follow up: Response: No adverse reaction; Marked relief of symptoms ls4 17:49 Drug: Flagyl 500 mg Volume: 100 ml; Route: IVPB; Rate: 200 ml/hr; Infused Over: 30 ls4 mins; Site: right antecubital; 18:20 Follow up: IV Status: Completed infusion; IV Intake: 100ml ls4 18:10 Drug: Cipro 400 mg Volume: 200 ml; Route: IVPB; Infused Over: 60 mins; Site: right ls4 antecubital; 18:58 Follow up: Response: No adverse reaction; IV Status: Completed infusion; IV Intake: ls4 200ml Intake: 18:09 IV: 1000ml; Total: 1000ml. ls4 18:20 IV: 100ml; Total: 1100ml. ls4 18:58 IV: 200ml; Total: 1300ml. ls4 Outcome: 19:34 Discharge ordered by . pm1 20:14 Patient left the ED. ls4 Signatures: Dispatcher [employer] PENGDeonna Cruz, SaraRufina Philippe, RN RN aa5 Robin Moise, DARRELL ASSEMBLER SHOW MOTOR pm1 Alon Em Victoria vm2 Abby Braun RN RN ls4 Corrections: (The following items were deleted from the chart) 16:27 15:20 Allergies: NKA; aa5 ls4 16:27 15:20 Home Meds: glimepiride 4 mg Oral tab twice a day; aa5 ls4 16:27 15:20 Home Meds: metformin 1,000 mg Oral tab 2 times per day; aa5 ls4 16:27 15:20 Home Meds: sertraline 50 mg Oral tab 1 tab once daily; aa5 ls4 16:27 15:20 Home Meds: dicyclomine 10 mg Oral cap 4 times per day; aa5 ls4 16:27 15:20 PMHx: Diabetes - NIDDM; aa5 ls4 16:27 15:20 PMHx: Diverticulitis; aa5 ls4 16:27 15:20 PMHx: fatty liver; aa5 ls4 16:27 15:20 PMHx: Pancreatitis; aa5 ls4 16:27 15:20 Home Meds: omeprazole 40 mg Oral cpDR once daily; aa5 ls4 16:27 15:21 PSHx: Cholecystectomy; aa5 ls4 16:27 15:21 PSHx: Hysterectomy; aa5 ls4
[2018-08-20 21:04] VITALS: O2SAT 99
[2018-08-20 21:07] VITALS: BP 118/72; TEMP 98
== END 2018-08-20 20:14 | disposition home or self-care (01) ==
LOC: ER 15:14
DX: K57.32 Diverticulitis of large intestine without perforation or abscess without bleeding (principal); K57.12 Diverticulitis of small intestine without perforation or abscess without bleeding; E11.9 Type 2 diabetes mellitus without complications; K76.0 Fatty (change of) liver, not elsewhere classified
CPT/HCPCS: 36415; 74177; 80048; 80076; 80320; 83690; 85025; 96361; 96365; 96375; 99284; J0744; J2405; J7030; Q9967

== ENCOUNTER 2018-09-04 14:32 | Emergency (ER) | payer OTHER ==
--- OUTSIDE RECORDS SUMMARY | 2018-09-04 14:35 | XMS REPORT | Clinical Summary ---
:1970 Author Organization [facility] Address [address] [place] [address] Care Team Providers Name Role Phone Dolores [...] Not on file Results Not on fileafter 09/03/2017 Insurance Payer Benefit Plan / Group Subscriber ID Type Phone Address [facility] xxxxxxxxxxxx HMO/POS [phone] CHOICE EXCHANGE (Work) [phone]
--- OUTSIDE RECORDS SUMMARY | 2018-09-04 14:35 | XMS REPORT ---
:1970 [facility] [address] Chang [address] [place] [address] Care Team Providers Name Role Phone VELÁSQUEZ, LIZZETTE PARRA Unavailable Unavailable Problems This patient has no known problems. Allergies, Adverse Reactions, Alerts This patient has no known allergies or adverse reactions. Medications This patient has no known medications. Results Test Description Test Time Test Comments Text Results Atomic Results Result Comments MM, STEREOTACTIC 2017-05-14 Reason for Addendum BeginsMRN#: BIOPSY, BREAST, 15:59:00 Exam:->calcification [id number]: LEFT 05/14/2017 Lizzette Velásquez M.D. 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 Addendum EndsN#: [id number] - MM, STEREOTACTIC BIOPSY, BREAST, LEFTSTEREOTACTIC GUIDED [...] correct location, five specimens were obtained using [id number] device. A clip was inserted into the [...] the calcifications. Lizzette Velásquez M.D. pth/penrad:05/09/2017 11:07:57 Clamp Truck Driver: Felicia Rizzo RT(R)(M), [facility] [id number] UE EXAM 2017-05-12 Surgical Pathology Report 12:48:00 Case: [id number] Authorizing Provider: Lizzette Velásquez MD Collected: 05/09/2017 1110 Ordering Location: [facility] Received: 05/09/2017 1312 Pathologist: Jackie Maradiaga MD Specimen: Breast, Left, LEFT MIDDLE 12 BREAST CALCIFICATION BREAST, LEFT, MIDDLE 12 O'CLOCK, CALCIFICATIONS, STEREOTACTIC CORE NEEDLE BIOPSY: - HYALINIZED FIBROADENOMA - COLUMNAR CELL HYPERPLASIA - COLUMNAR CELL CHANGES - MICROCALCIFICATIONS, COARSE, ASSOCIATED WITH FIBROADENOMA Signing Pathologist Direct Phone Line: [phone] signed by Jackie Maradiaga MD on 05/12/2017 at 12:48 PMIn the sections examined, no atypical hyperplasia or carcinoma is identified.[id number] lesion Left middle 12 o'clock breast calcifications The specimen is received in a formalin-filled container labeled with the patient's information and labeled "left middle 12 o'clock breast calcifications" and consists of multiple yellow-white breast core biopsies ranging in length from 0.6 to 2.5 cm.Ink code: Black.The specimen is submitted entirely in A1 and A2. CG/ewPerformed.[facility], Department of Pathology, [address] [place] [address], [place] [address], MM, DIGITAL, 2017-05-09 Left breast #[id number] - UNILATERAL, 11:07:00 calcifications MM, DIGITAL, UNILATERAL, [...] pathology results. Lizzette Velásquez M.D. pth/:05/09/2017 11:07:15 Clamp Truck Driver: Felicia IRVIN (R)), [facility] Mammogram BI-RADS: Post-procedure mammogram for marker placement [id number] [place], 2017-05-09 Reason for exam:->Left #[id number] - SPECIMEN, 11:06:00 breast calcifications MM, MAMMO, SPECIMEN, RADIOGRAPH, LEFT RADIOGRAPH, LEFTSPECIMEN LEFT BREAST: 05/09/2017Five stereotactic guided biopsy specimens were imaged for the area of calcifications located in the left breast at 12 o'clock middle depth. IMPRESSION: SPECIMENThe imaged specimens includes the calcifications. Lizzette Velásquez M.D. pth/:05/09/2017 11:06:40 Clamp Truck Driver: Felicia SCHNEIDER)(M), [facility] [id number]
[2018-09-04 16:11] LABS: Absolute Lymphocytes (CBC) 2.7 K/uL (0.7-4.9); Absolute Monocytes 0.5 K/uL (0.1-1.3); Absolute Neutrophil 5.2 K/uL (1.8-8.0); Basophils % 0.7 % (0-1.3); Eosinophils % 2.7 % (0-4.4); Hematocrit 40.1 % (36.0-45.0); Lymphocytes % 30.8 % (15.3-44.8); MPV 8.6 fL (7.6-11.3)
[2018-09-04] MEDS ORDERED: FENTANYL CITR 100 MCG/2 ML ONE (16:17)
[2018-09-04] MEDS ORDERED: ONDANSETRON 4 MG/2 ML VIAL ONE (16:17)
[2018-09-04] MEDS ORDERED: NA CHLORIDE 0.9% 1,000 ML ONE (16:17)
[2018-09-04 16:26] LABS: ALT/SGPT 39 U/L (12-78); AST/SGOT 14 U/L (15-37); Albumin 3.9 g/dL (3.4-5.0); Alkaline Phosphatase 104 U/L (45-117); BUN Blood Urea Nitrogen 9 mg/dL (7-18); Bicarbonate 33 mmol/L (21-32); Bilirubin Direct 0.1 mg/dL (0-0.2); Bilirubin Total 0.3 mg/dL (0.2-1.0); Glucose Level 88 mg/dL (74-106); Lipase 286 U/L (73-393); Sodium Level 140 mmol/L (136-145)
--- NOTE | 2018-09-04 16:56 | RAD REPORT ---
EXAM DESCRIPTION: CT - Abdomen Pelvis W Contrast - 09/04/2018 4:40 pm CLINICAL HISTORY: Abdominal pain, left upper quadrant pain, history of diverticulitis, pancreatitis and fatty liver; prior hysterectomy and cholecystectomy COMPARISON: CT imaging August 20 TECHNIQUE: Biphasic, helical CT imaging of the abdomen and pelvis was performed following 100 ml non -ionic IV contrast. No oral contrast administered. All CT scans are performed using dose optimization technique as appropriate and may include automated exposure control or mA/KV adjustment according to patient size. FINDINGS: No suspicious findings in the lung bases. No focal liver lesion identifiable. Liver shows a nodular capsule contour. Left lobe is relatively pr ominent. No focal liver lesion. No focal splenic abnormality. No pancreatitis or acute pancreatic pro cess. Gallbladder is absent. Biliary tree within normal limits. Symmetric renal function is seen with no hydronephrosis or suspicious renal mass. No pyelonephritis o r acute parenchymal process. No bladder abnormalities. No adrenal abnormalities. Uterus is absent. No ovarian abnormality. No gastric dilatation or wall thickening. No acute small bowel finding identifiable. There is no appe ndicitis finding. There is a large volume of stool present filling the entirety of the colon. This is most pronounced in the tortuous and redundant sigmoid colon and rectum. The short segment circumfere ntial wall thickening in the mid descending colon seen August 20 is no longer present. No remnant m ass or focal abnormality at this site. There is some underlying diverticulosis present. No free air, free fluid or inflammatory stranding. No hernia, mass or bulky lymphadenopathy. No suspicious bony findings. IMPRESSION: Constipation pattern with a large amount of stool filling the colon particularly in the rectum and redundant sigmoid colon. The focal wall thickening and edema seen in the mid descending colon August 20 is no longer present . Nodular liver capsule without focal lesion. Finding could represent cirrhosis or other diffuse hepati c parenchymal disease.
--- NOTE | 2018-09-04 17:52 | ER ---
Nurse's Notes [facility] Name: Dena Nance Age: 48 yrs Sex: Female : 1970 Arrival Date: 09/04/2018 Time: 14:34 Bed 25 Private MD: Mason Arreguin Diagnosis: Constipation Presentation: 09/04 14:38 Presenting complaint: Patient states: LUQ pain and nausea started today. Transition of sv care: patient was not received from another setting of care. Onset of symptoms was September 04, 2018. Care prior to arrival: None. 14:38 Method Of Arrival: Ambulatory sv 14:38 Acuity: MARIANA 3 sv 15:36 Risk Assessment: Do you want to hurt yourself or someone else? Patient reports no tw2 desire to harm self or others. Initial Sepsis Screen: Does the patient meet any 2 criteria? No. Patient's initial sepsis screen is negative. Does the patient have a suspected source of infection? No. Patient's initial sepsis screen is negative. Triage Assessment: 14:40 General: Appears in no apparent distress. uncomfortable, Behavior is calm, cooperative, sv appropriate for age. Pain: Complains of pain in anterior aspect of left lateral abdomen and left upper quadrant Pain currently is 10 out of 10 on a pain scale. Neuro: Level of Consciousness is awake, alert, obeys commands, Oriented to person, place, time, situation, Gait is steady. Respiratory: Respiratory effort is even, unlabored, Respiratory pattern is regular, symmetrical. GI: Abdomen is round Reports upper abdominal pain, nausea, vomiting. 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 - Social history:: Smoking status: . - Ebola Screening: : Patient denies travel to an Ebola-affected area in the 21 days before illness onset. Screenin:34 Abuse screen: Denies threats or abuse. Nutritional screening: No deficits noted. tw2 Tuberculosis screening: No symptoms or risk factors identified. Fall Risk None identified. Assessment: 15:47 General: Appears uncomfortable, well groomed, Behavior is calm, cooperative, crying. tw2 Pain: Complains of pain in left upper quadrant and anterior aspect of left lateral abdomen. Neuro: Cardiovascular: Heart tones S1 S2 Patient's skin is warm and dry. Respiratory: Airway is patent Respiratory effort is even, unlabored, Respiratory pattern is regular, symmetrical, Breath sounds are clear bilaterally. GI: Bowel sounds present X 4 quads. Abd is soft X 4 quads Abdomen is tender to palpation in left upper quadrant and left lower quadrant Reports lower abdominal pain, upper abdominal pain, nausea. : No signs and/or symptoms were reported regarding the genitourinary system. EENT: No signs and/or symptoms were reported regarding the EENT system. Derm: No signs and/or symptoms reported regarding the dermatologic system. Musculoskeletal: Range of motion: intact in all extremities. 16:16 Reassessment: Patient appears in no apparent distress at this time. Patient and/or tw2 family updated on plan of care and expected duration. Pain level reassessed. Patient is alert, oriented x 3, equal unlabored respirations, skin warm/dry/pink. 17:05 Reassessment: Patient appears in no apparent distress at this time. Patient and/or tw2 family updated on plan of care and expected duration. Pain level reassessed. Patient is alert, oriented x 3, equal unlabored respirations, skin warm/dry/pink. Patient states feeling better. 17:07 Reassessment: provider DARRELL Kelly at bedside at this time. tw2 17:57 Reassessment: Patient appears in no apparent distress at this time. Patient and/or tw2 family updated on plan of care and expected duration. Pain level reassessed. Patient is alert, oriented x 3, equal unlabored respirations, skin warm/dry/pink. Patient states feeling better. Vital Signs: 14:39 BP 106 / 66; Pulse 81; Resp 20; Temp 98; Pulse Ox 100% ; Weight 63.5 kg; Height 5 ft. 4 sv in. (162.56 cm); Pain 10/10; 15:47 BP 120 / 69; Pulse 75; Resp 17; Pulse Ox 99% on R/A; Pain 10/10; tw2 16:16 BP 99 / 63; Pulse 83; Resp 17; Pulse Ox 96% on R/A; tw2 17:05 BP 119 / 57; Pulse 74; Resp 17; Pulse Ox 96% on R/A; Pain 5/10; tw2 14:39 Body Mass Index 24.03 (63.50 kg, 162.56 cm) sv ED Course: 14:34 Patient arrived in ED. as 14:35 Mason Arreguin MD is Private Physician. as 14:38 Triage completed. sv 14:39 Arm band placed on. sv 15:33 Sydnee Zhong, SHADE is Primary Nurse. tw2 15:34 Bed in low position. Call light in reach. Pulse ox on. NIBP on. tw2 15:49 Robin Moise NP is PHCP. pm1 15:49 Francisco Hoskins MD is Attending Physician. pm1 15:58 Inserted saline lock: 22 gauge in left antecubital area, using aseptic technique. Blood tw2 collected. 16:05 Radiology exam delayed due to lab results not completed at this time. (BUN/Creatinine). nj 16:15 Radiology exam delayed due to lab results not completed at this time. (BUN/Creatinine). vm2 16:[address] via wheelchair. vm2 16:40 CT completed. Patient tolerated procedure well. Patient moved back from CT. nj 16:41 CT Abd/Pelvis - W/Contrast: IV contrast only In Process Unspecified. EDMS 17:57 No provider procedures requiring assistance completed. IV discontinued, intact, tw2 bleeding controlled, No redness/swelling at site. Pressure dressing applied. Administered Medications: 16:08 Drug: Zofran 4 mg Route: IVP; Site: left antecubital; tw2 17:04 Follow up: Response: No adverse reaction tw2 16:10 Drug: fentaNYL (PF) 50 mcg Route: IVP; Site: left antecubital; tw2 17:04 Follow up: Response: No adverse reaction; Pain is decreased tw2 16:11 Drug: NS 0.9% 1000 ml Route: IV; Rate: 1000 ml; Site: left antecubital; tw2 17:58 Follow up: Response: No adverse reaction; IV Status: Completed infusion; IV Intake: tw2 1000ml Intake: 17:58 IV: 1000ml; Total: 1000ml. tw2 Outcome: 17:51 Discharge ordered by . pm1 17:57 Discharged to home ambulatory, with significant other. tw2 17:57 Condition: stable 17:57 Discharge instructions given to patient, significant other, Instructed on discharge instructions, follow up and referral plans. medication usage, Demonstrated understanding of instructions, follow-up care, medications, Prescriptions given X 1. 17:58 Patient left the ED. tw2 Signatures: Dispatcher [employer] EDAshlyn Lozoya RN RN Myranda Sandhu Patrick, NP GROUP EXERCISE CLASS INSTRUCTOR pm1 Sydnee Zhong RN RN tw2 Alon Em [facility] Corrections: (The following items were deleted from the chart) 14:39 14:38 Presenting complaint: Patient states: LUQ pain started today. sv sv
--- NOTE | 2018-09-04 17:52 | EDPHYS ---
Physician Documentation [facility] Name: Dena Nance Age: 48 yrs Sex: Female : 1970 Arrival Date: 09/04/2018 Time: 14:34 Bed 25 Private MD: Mason Arreguin ED Physician Francisco Hoskins HPI: 09/04 16:00 This 48 yrs old Female presents to ER via Ambulatory with complaints of pm1 Abdominal Pain. 16:00 The patient presents with abdominal pain in the left lower quadrant. pm1 16:00 Onset: The symptoms/episode began/occurred this morning, today. The symptoms do not pm1 radiate. Associated signs and symptoms: Pertinent positives: constipation, nausea, Pertinent negatives: diarrhea, dysuria, fever, vomiting. The symptoms are described as crampy. Modifying factors: The symptoms are alleviated by nothing, the symptoms are aggravated by nothing. Severity of pain: in the emergency department the pain is actually worse. The patient has experienced similar episodes in the past, multiple times. The patient has not recently seen a physician. 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 - Social history:: Smoking status: . - Ebola Screening: : Patient denies travel to an Ebola-affected area in the 21 days before illness onset. ROS: 16:00 Constitutional: Negative for fever, chills, and weight loss, Eyes: Negative for injury, pm1 pain, redness, and discharge, ENT: Negative for injury, pain, and discharge, Neck: Negative for injury, pain, and swelling, Cardiovascular: Negative for chest pain, palpitations, and edema, Respiratory: Negative for shortness of breath, cough, wheezing, and pleuritic chest pain. 16:00 Back: Negative for injury and pain, : Negative for injury, bleeding, discharge, and swelling, MS/Extremity: Negative for injury and deformity, Skin: Negative for injury, rash, and discoloration, Neuro: Negative for headache, weakness, numbness, tingling, and seizure. 16:00 Abdomen/GI: Positive for abdominal pain, nausea, constipation, Negative for vomiting, diarrhea. Exam: 16:00 Constitutional: This is a well developed, well nourished patient who is awake, alert, pm1 and in no acute distress. Head/Face: Normocephalic, atraumatic. Eyes: Pupils equal round and reactive to light, extra-ocular motions intact. Lids and lashes normal. Conjunctiva and sclera are non-icteric and not injected. Cornea within normal limits. Periorbital areas with no swelling, redness, or edema. ENT: Nares patent. No nasal discharge, no septal abnormalities noted. Tympanic membranes are normal and external auditory canals are clear. Oropharynx with no redness, swelling, or masses, exudates, or evidence of obstruction, uvula midline. Mucous membranes moist. Neck: Trachea midline, no thyromegaly or masses palpated, and no cervical lymphadenopathy. Supple, full range of motion without nuchal rigidity, or vertebral point tenderness. No Meningismus. Chest/axilla: Normal chest wall appearance and motion. Nontender with no deformity. No lesions are appreciated. Cardiovascular: Regular rate and rhythm with a normal S1 and S2. No gallops, murmurs, or rubs. Normal PMI, no JVD. No pulse deficits. Respiratory: Lungs have equal breath sounds bilaterally, clear to auscultation and percussion. No rales, rhonchi or wheezes noted. No increased work of breathing, no retractions or nasal flaring. 16:00 Back: No spinal tenderness. No costovertebral tenderness. Full range of motion. Skin: Warm, dry with normal turgor. Normal color with no rashes, no lesions, and no evidence of cellulitis. MS/ Extremity: Pulses equal, no cyanosis. Neurovascular intact. Full, normal range of motion. 16:00 Abdomen/GI: Inspection: abdomen appears normal, Bowel sounds: normal, Palpation: soft, mild abdominal tenderness, in the left lower quadrant, mass, is not appreciated, rebound tenderness, is not appreciated. 16:00 Neuro: Orientation: is normal, Motor: moves all fours. Vital Signs: 14:39 BP 106 / 66; Pulse 81; Resp 20; Temp 98; Pulse Ox 100% ; Weight 63.5 kg; Height 5 ft. 4 sv in. (162.56 cm); Pain 10/10; 15:47 BP 120 / 69; Pulse 75; Resp 17; Pulse Ox 99% on R/A; Pain 10/10; tw2 16:16 BP 99 / 63; Pulse 83; Resp 17; Pulse Ox 96% on R/A; tw2 17:05 BP 119 / 57; Pulse 74; Resp 17; Pulse Ox 96% on R/A; Pain 5/10; tw2 14:39 Body Mass Index 24.03 (63.50 kg, 162.56 cm) sv MDM: 15:49 Patient medically screened. pm1 17:51 Data reviewed: vital signs. Data interpreted: Pulse oximetry: on room air is 96 %. pm1 Interpretation: normal. Counseling: I had a detailed discussion with the patient and/or guardian regarding: the historical points, exam findings, and any diagnostic results supporting the discharge/admit diagnosis, lab results, radiology results, the need for outpatient follow up, to return to the emergency department if symptoms worsen or persist or if there are any questions or concerns that arise at home. 09/04 15:44 Order name: Urine Dipstick--Ancillary (enter results) eb 09/04 15:49 Order name: Basic Metabolic Panel; Complete Time: 16:33 pm1 09/04 15:49 Order name: CBC with Diff; Complete Time: 16:24 pm1 09/04 15:49 Order name: Creatinine for Radiology; Complete Time: 17:24 pm1 09/04 15:49 Order name: Hepatic Function; Complete Time: 16:33 pm1 09/04 15:49 Order name: Lipase; Complete Time: 16:33 pm1 09/04 15:49 Order name: IV Saline Lock; Complete Time: 15:58 pm1 09/04 15:49 Order name: Labs collected and sent; Complete Time: 15:58 pm1 09/04 16:02 Order name: CT Abd/Pelvis - W/Contrast: IV contrast only; Complete Time: 17:06 pm1 Administered Medications: 16:08 Drug: Zofran 4 mg Route: IVP; Site: left antecubital; tw2 17:04 Follow up: Response: No adverse reaction tw2 16:10 Drug: fentaNYL (PF) 50 mcg Route: IVP; Site: left antecubital; tw2 17:04 Follow up: Response: No adverse reaction; Pain is decreased tw2 16:11 Drug: NS 0.9% 1000 ml Route: IV; Rate: 1000 ml; Site: left antecubital; tw2 17:58 Follow up: Response: No adverse reaction; IV Status: Completed infusion; IV Intake: tw2 1000ml Disposition: 09/04/18 17:51 Discharged to Home. Impression: Constipation. - Condition is Stable. - Discharge Instructions: Constipation, Adult. - Prescriptions for Miralax 17 gram/dose Oral - take 1 packet by ORAL route once daily As needed dilute powder in 8 ounces of water or juice; 7 packet. - Medication Reconciliation Form, Thank You Letter, Antibiotic Education, Prescription Opioid Use, Work release form, Family Work Release form. - Follow up: Emergency Department; When: As needed; Reason: Worsening of condition. Follow up: Private Physician; When: 2 - 3 days; Reason: Recheck today's complaints, Continuance of care, Re-evaluation by your physician. - Problem is new. - Symptoms have improved. Addendum: 09/07/2018 07:16 Co-signature as Attending Physician, Francisco Hoskins MD I agree with the assessment and k dr plan of care. Signatures: Dispatcher [employer] EDAshlyn Lozoya RN RN sv Rittger, Kevin, MD MD [facility] Robin Moise NP PRICING ASSOCIATE pm1 Sydnee Zhong RN RN tw2 Corrections: (The following items were deleted from the chart) 09/04 17:58 17:51 09/04/2018 17:51 Discharged to Home. Impression: Constipation. Condition is tw2 Stable. Forms are Work release form, Family Work Release, Medication Reconciliation Form, Thank You Letter, Antibiotic Education, Prescription Opioid Use. Follow up: Emergency Department; When: As needed; Reason: Worsening of condition. Follow up: Private Physician; When: 2 - 3 days; Reason: Recheck today's complaints, Continuance of care, Re-evaluation by your physician. Problem is new. Symptoms have improved. pm1
[2018-09-04 18:05] VITALS: TEMP 98
[2018-09-04 18:08] VITALS: O2SAT 96
[2018-09-04 18:09] VITALS: BP 119/57
[2018-09-04 20:10] LABS: Urine Blood NEGATIVE (NEG); Urine Glucose NEGATIVE (NEG); Urine Protein NEGATIVE (NEG)
== END 2018-09-04 17:58 | disposition home or self-care (01) ==
LOC: ER 14:32
DX: K59.00 Constipation, unspecified (principal); E11.9 Type 2 diabetes mellitus without complications
CPT/HCPCS: 36415; 74177; 80048; 80076; 81003; 83690; 85025; 96361; 96374; 96375; 99284; J2405; J3010; J7030; Q9967

== ENCOUNTER 2018-10-08 16:15 | Emergency (ER) | payer OTHER ==
--- OUTSIDE RECORDS SUMMARY | 2018-10-08 16:19 | XMS REPORT | Clinical Summary ---
:1970 Author Organization [facility] Address [address] [place] [address] Care Team Providers Name Role Phone Dolores [...] Not on file Results Not on fileafter 10/07/2017 Insurance Payer Benefit Plan / Group Subscriber ID Type Phone Address [facility] xxxxxxxxxxxx HMO/POS [phone] CHOICE EXCHANGE (Work) [phone]
--- OUTSIDE RECORDS SUMMARY | 2018-10-08 16:19 | XMS REPORT ---
:1970 [facility] Address [address] Chang [address] [place] [id number] Care Team Providers Name Role Phone VELÁSQUEZ, LIZZETTE PARRA Unavailable Unavailable Problems This patient has no known problems. Allergies, Adverse Reactions, Alerts This patient has no known allergies or adverse reactions. Medications This patient has no known medications. Results Test Description Test Time Test Comments Text Results Atomic Results Result Comments MM, STEREOTACTIC 2017-05-14 Reason for Addendum BeginsMRN#: BIOPSY, BREAST, 15:59:00 Exam:->calcification [id number]: LEFT 05/14/2017 Lizzette Velásquez M.D. 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 Addendum EndsN#: [id number] - MM, STEREOTACTIC BIOPSY, BREAST, LEFTSTEREOTACTIC GUIDED [...] correct location, five specimens were obtained using [employer] device. A clip was inserted into the [...] the calcifications. Lizzette Velásquez M.D. pth/penrad:05/09/2017 11:07:57 Foundry Manager: Felicia Rizzo RT(Linda)(M), [facility] [id number] UE EXAM 2017-05-12 Surgical Pathology Report 12:48:00 Case: [id number] Authorizing Provider: Lizzette Velásquez MD Collected: 05/09/2017 1110 Ordering Location: [facility] Received: 05/09/2017 1312 Pathologist: Jackie Maradiaga MD Specimen: Breast, Left, LEFT MIDDLE 12 BREAST CALCIFICATION BREAST, LEFT, MIDDLE 12 O'CLOCK, CALCIFICATIONS, STEREOTACTIC CORE NEEDLE BIOPSY: - HYALINIZED FIBROADENOMA - COLUMNAR CELL HYPERPLASIA - COLUMNAR CELL CHANGES - MICROCALCIFICATIONS, COARSE, ASSOCIATED WITH FIBROADENOMA Signing Pathologist Direct Phone Line: [phone] signed by Jackie Maradiaga MD on 05/12/2017 at 12:48 PMIn the sections examined, no atypical hyperplasia or carcinoma is identified.[id number] lesion Left middle 12 o'clock breast calcifications The specimen is received in a formalin-filled container labeled with the patient's information and labeled "left middle 12 o'clock breast calcifications" and consists of multiple yellow-white breast core biopsies ranging in length from 0.6 to 2.5 cm.Ink code: Black.The specimen is submitted entirely in A1 and A2. CG/ewPerformed.[facility], Department of Pathology, [address] [place] [address], [place] [address], MM, DIGITAL, 2017-05-09 Left breast #[id number] - UNILATERAL, 11:07:00 calcifications MM, DIGITAL, UNILATERAL, [...] pathology results. Lizzette Velásquez M.D. pth/:05/09/2017 11:07:15 Foundry Manager: Felicia SCHNEIDER)(Phil), [facility] Mammogram BI-RADS: Post-procedure mammogram for marker placement [id number] , MAMMO, 2017-05-09 Reason for exam:->Left #[id number] - SPECIMEN, 11:06:00 breast calcifications MM, MAMMO, SPECIMEN, RADIOGRAPH, LEFT RADIOGRAPH, LEFTSPECIMEN LEFT BREAST: 05/09/2017Five stereotactic guided biopsy specimens were imaged for the area of calcifications located in the left breast at 12 o'clock middle depth. IMPRESSION: SPECIMENThe imaged specimens includes the calcifications. Lizzette Velásquez M.D. pth/:05/09/2017 11:06:40 Foundry Manager: Felicia BELLA(R)(M), [facility] [id number]
[2018-10-08 18:48] LABS: Absolute Lymphocytes (CBC) 2.1 K/uL (0.7-4.9); Absolute Monocytes 0.6 K/uL (0.1-1.3); Basophils % 0.2 % (0-1.3); Eosinophils % 1.3 % (0-4.4); Hematocrit 39.4 % (36.0-45.0); Lymphocytes % 16.3 % (15.3-44.8); MPV 8.9 fL (7.6-11.3); Monocytes % 4.9 % (3.3-12.3); RBC Red Blood Cell Count 4.46 M/uL (3.86-4.86)
[2018-10-08 19:05] LABS: ALT/SGPT 34 U/L (12-78); AST/SGOT 23 U/L (15-37); Albumin 3.6 g/dL (3.4-5.0); Alkaline Phosphatase 91 U/L (45-117); BUN Blood Urea Nitrogen 7 mg/dL (7-18); Bicarbonate 29 mmol/L (21-32); Bilirubin Direct < 0.1 mg/dL (0-0.2); Bilirubin Total 0.2 mg/dL (0.2-1.0); Glucose Level 176 mg/dL (74-106); Lipase 61 U/L (73-393); Protein, Total 7.3 g/dL (6.4-8.2); Sodium Level 141 mmol/L (136-145)
[2018-10-08 19:27] LABS: Urine Blood 3+ (NEG); Urine Glucose 2+ (NEG); Urine Protein 2+ (NEG); Urine pH 6.5 (5.0-7.0)
--- NOTE | 2018-10-08 19:42 | RAD REPORT ---
EXAM DESCRIPTION: CT - Abdomen Pelvis W Contrast - 10/08/2018 7:24 pm CLINICAL HISTORY: Abdominal pain COMPARISON: August 2018 TECHNIQUE: Computed axial tomography of the abdomen pelvis was obtained. 100 cc Isovue-300 was admin istered intravenously. Oral contrast was not requested which limits evaluation of bowel. All CT scans are performed using dose optimization technique as appropriate and may include automated exposure control or mA/KV adjustment according to patient size. FINDINGS: The liver, spleen, pancreas, adrenal and kidneys appear unremarkable. Diverticula stem from the colon without evidence of diverticulitis. The appendix is normal A hysterectomy has been performed. The gallbladder has been removed. Small umbilical hernia contains fat IMPRESSION: No acute abnormality is displayed.
--- NOTE | 2018-10-08 20:10 | ER ---
Nurse's Notes [facility] Name: Dena Nance Age: 48 yrs Sex: Female : 1970 Arrival Date: 10/08/2018 Time: 16:19 Bed 17 Private MD: Diagnosis: Urinary tract infection, site not specified Presentation: 10/08 16:21 Presenting complaint: Patient states: vaginal bleeding, dark red blood noted started sv about an hour ago. Denies SOB, dizziness. Reports hx hysterectomy 12 yrs ago. Transition of care: patient was not received from another setting of care. Onset of symptoms was October 08, 2018. Care prior to arrival: None. 16:21 Method Of Arrival: Ambulatory sv 16:21 Acuity: MRAIANA 3 sv 18:25 Initial Sepsis Screen: Does the patient meet any 2 criteria? No. Patient's initial aj1 sepsis screen is negative. Does the patient have a suspected source of infection? No. Patient's initial sepsis screen is negative. 18:26 Risk Assessment: Do you want to hurt yourself or someone else? Patient reports no aj1 desire to harm self or others. [place]: 19:15 LMP N/A - Hysterectomy cc3 Historical: - Allergies: 16:23 NKA; sv - PMHx: 16:23 Diabetes - NIDDM; Diverticulitis; fatty liver; Pancreatitis; sv - PSHx: 16:23 Cholecystectomy; Hysterectomy; sv - Immunization history:: Adult Immunizations up to date. - Ebola Screening: : Patient denies travel to an Ebola-affected area in the 21 days before illness onset. - Social history:: Smoking status: Patient/guardian denies using tobacco, never smoked. Screenin:23 Abuse screen: Denies threats or abuse. Denies injuries from another. Nutritional aj1 screening: No deficits noted. Tuberculosis screening: No symptoms or risk factors identified. 19:15 Fall Risk Ambulatory Aid- None/Bed Rest/Nurse Assist (0 pts). Gait- Normal/Bed cc3 Rest/Wheelchair (0 pts) Mental Status- Oriented to own ability (0 pts). Assessment: 18:23 General: Appears in no apparent distress. comfortable, Behavior is calm, cooperative, aj1 appropriate for age. Pain: Denies pain. Neuro: Level of Consciousness is awake, alert, obeys commands, Oriented to person, place, time, situation. Cardiovascular: Patient's skin is warm and dry. Respiratory: Airway is patent Respiratory effort is even, unlabored, Respiratory pattern is regular, symmetrical. GI: No signs and/or symptoms were reported involving the gastrointestinal system. : Reports vaginal bleeding that is bright red. EENT: No signs and/or symptoms were reported regarding the EENT system. Derm: No signs and/or symptoms reported regarding the dermatologic system. Skin is pink, warm \T\ dry. normal. Musculoskeletal: No signs and/or symptoms reported regarding the musculoskeletal system. Circulation, motion, and sensation intact. 19:15 Reassessment: Patient appears in no apparent distress at this time. Patient and/or cc3 family updated on plan of care and expected duration. Pain level reassessed. Patient is alert, oriented x 3, equal unlabored respirations, skin warm/dry/pink. Received this female patient from morning shift RN Megan as a case of vaginal bleeding. With IV cannula gauge 22 at the right ACV saline locked. Patient denies pain at this time. 19:35 Reassessment: Patient came back from CT scan department, awaiting result. cc3 20:08 Reassessment: Patient appears in no apparent distress at this time. Patient and/or cc3 family updated on plan of care and expected duration. Pain level reassessed. Patient is alert, oriented x 3, equal unlabored respirations, skin warm/dry/pink. 20:30 Reassessment: BRENDA Johnson discharged the patient home with prescription given. IV cc3 cannula removed and patient left ER vitally stable and ambulatory. Patient denies pain at this time. Patient states feeling better. Patient states symptoms have improved. Vital Signs: 16:23 BP 119 / 54; Pulse 93; Resp 16; Temp 98.7; Pulse Ox 100% ; Weight 63.5 kg; Height 5 ft. sv 4 in. (162.56 cm); Pain 7/10; 19:15 BP 107 / 65; Pulse 84; Resp 17 S; Pulse Ox 96% on R/A; cc3 20:08 BP 129 / 71; Pulse 80; Resp 18 S; Pulse Ox 96% on R/A; cc3 16:23 Body Mass Index 24.03 (63.50 kg, 162.56 cm) sv ED Course: 16:19 Patient arrived in ED. tw3 16:22 Triage completed. sv 16:23 Arm band placed on. sv 17:43 Megan Chua, RN is Primary Nurse. aj1 17:44 Anthony Johnson PA is PHCP. [facility] 17:44 Roberto Alejo MD is Attending Physician. jmm 18:23 Patient has correct armband on for positive identification. aj1 18:23 No provider procedures requiring assistance completed. aj1 18:31 Radiology exam delayed due to lab results not completed at this time. (BUN/Creatinine). vr 18:38 Inserted saline lock: 22 gauge in right antecubital area, using aseptic technique. aj1 Blood collected. 18:53 Radiology exam delayed due to lab results not completed at this time. (BUN/Creatinine). nj 19:24 CT Abd/Pelvis - W/Contrast In Process Unspecified. EDMS 20:30 IV discontinued, intact, bleeding controlled, No redness/swelling at site. Pressure cc3 dressing applied. Administered Medications: No medications were administered Outcome: 20:10 Discharge ordered by MD. jmm 20:30 Discharged to home ambulatory. cc3 20:30 Condition: stable 20:30 Discharge instructions given to patient, Instructed on discharge instructions, follow up and referral plans. medication usage, Demonstrated understanding of instructions, follow-up care, medications, Prescriptions given X 1. 20:38 Patient left the ED. cc3 Signatures: Dispatcher [employer] EDMS Megan Chua, RN RN ajAshlyn Escoto RN RN sv Mickail, Joel, PA PA jmm Davis, Victoria vr Jordan, Lianne Jin 3 Uzma Morillo cc3
--- NOTE | 2018-10-08 20:10 | EDPHYS ---
Physician Documentation [facility] Name: Dena Nance Age: 48 yrs Sex: Female : 1970 Arrival Date: 10/08/2018 Time: 16:19 Bed 17 Private MD: ED Physician Roberto Alejo [employer] DIRECTOR: 10/08 19:15 LMP N/A - Hysterectomy cc3 Historical: - Allergies: 16:23 NKA; sv - PMHx: 16:23 Diabetes - NIDDM; Diverticulitis; fatty liver; Pancreatitis; sv - PSHx: 16:23 Cholecystectomy; Hysterectomy; sv - Immunization history:: Adult Immunizations up to date. - Ebola Screening: : Patient denies travel to an Ebola-affected area in the 21 days before illness onset. - Social history:: Smoking status: Patient/guardian denies using tobacco, never smoked. Vital Signs: 16:23 BP 119 / 54; Pulse 93; Resp 16; Temp 98.7; Pulse Ox 100% ; Weight 63.5 kg; Height 5 ft. sv 4 in. (162.56 cm); Pain 7/10; 19:15 BP 107 / 65; Pulse 84; Resp 17 S; Pulse Ox 96% on R/A; cc3 20:08 BP 129 / 71; Pulse 80; Resp 18 S; Pulse Ox 96% on R/A; cc3 16:23 Body Mass Index 24.03 (63.50 kg, 162.56 cm) sv MDM: 17:57 Patient medically screened. [facility] 20:09 Data reviewed: vital signs, nurses notes. Counseling: I had a detailed discussion with mal the patient and/or guardian regarding: the historical points, exam findings, and any diagnostic results supporting the discharge/admit diagnosis, radiology results, the need for outpatient follow up, to return to the emergency department if symptoms worsen or persist or if there are any questions or concerns that arise at home. 10/08 17:58 Order name: Basic Metabolic Panel [facility] 10/08 17:58 Order name: CBC with Diff [facility] 10/08 17:58 Order name: Creatinine for Radiology [facility] 10/08 17:58 Order name: Hepatic Function [facility] 10/08 17:58 Order name: Lipase; Complete Time: 19:30 [facility] 10/08 17:59 Order name: Basic Metabolic Panel; Complete Time: 19:30 [facility] 10/08 17:58 Order name: IV Saline Lock; Complete Time: 18:38 [facility] 10/08 17:58 Order name: Labs collected and sent; Complete Time: 18:38 [facility] 10/08 17:58 Order name: CT Abd/Pelvis - W/Contrast; Complete Time: 19:49 [facility] 10/08 17:59 Order name: CBC with Automated Diff; Complete Time: 19:30 [facility] 10/08 17:59 Order name: Creatinine (Radiology Only); Complete Time: 19:04 [facility] 10/08 17:59 Order name: Liver (Hepatic) Function; Complete Time: 19:30 [facility] 10/08 19:12 Order name: Urine Dipstick--Ancillary (enter results); Complete Time: 19:30 eb 10/08 19:12 Order name: Urine --Ancillary (enter results); Complete Time: 19:30 eb Administered Medications: No medications were administered Disposition: 10/08/18 20:10 Discharged to Home. Impression: Urinary tract infection, site not specified. - Condition is Stable. - Discharge Instructions: Urinary Tract Infection, Adult. - Prescriptions for Macrobid 100 mg Oral Capsule - take 1 capsule by ORAL route every 12 hours for 7 days; 14 capsule. - Medication Reconciliation Form, Thank You Letter, Antibiotic Education, Prescription Opioid Use, Work release form form. - Follow up: Private Physician; When: 2 - 3 days; Reason: Recheck today's complaints, Continuance of care, Re-evaluation by your physician. Addendum: 10/10/2018 19:45 Co-signature as Attending Physician, Roberto betancourt n 10/27/2018 15:35 Addendum: This is a 48 year old female that presents to the ED with dark red vaginal j mm bleeding beginning approx 1 hour ago. Hx of hysterectomy. Denies fever. Denies vomiting, denies diarrhea. ROS positive for vaginal bleeding, otherwise negative. PE: Gen NAD, Extremities Normal ROM, HEENT atraumatic, Neuro a x o x 3, Abd Mild suprapubic tenderness, Resp Non labored, Neck FROM, Skin WNL, Back FROM. MDM: Patient is alert and non toxic in appearance in the ED. VS WNL. CT shows no acute abnormality. UA consistent with UTI. Symptoms may be due to hemorrhagic cystitis, will treat with abx. Patient advised to return to the ED if symptoms worsen. Diagnosis: UTI. Signatures: Dispatcher [employer] EDMegan Hartman RN RN aj1 Ashlyn Kaufman RN RN sv Mickail, Joel, PA PA jmm Nieto, Roman, MD MD rn Cordel, Charlene cc3 Corrections: (The following items were deleted from the chart) 10/08 20:38 20:10 10/08/2018 20:10 Discharged to Home. Impression: Urinary tract infection, site cc3 not specified. Condition is Stable. Forms are Medication Reconciliation Form, Thank You Letter, Antibiotic Education, Prescription Opioid Use. Follow up: Private Physician; When: 2 - 3 days; Reason: Recheck today's complaints, Continuance of care, Re-evaluation by your physician. mal
[2018-10-08 20:43] VITALS: TEMP 98.7
[2018-10-08 20:44] VITALS: O2SAT 96
[2018-10-08 20:45] VITALS: BP 129/71
== END 2018-10-08 20:38 | disposition home or self-care (01) ==
LOC: ER 16:15
DX: N39.0 Urinary tract infection, site not specified (principal)
CPT/HCPCS: 36415; 74177; 80048; 80076; 81003; 81025; 83690; 85025; 99284; Q9967

== ENCOUNTER 2019-01-19 10:18 | Emergency (ER) | payer OTHER ==
--- OUTSIDE RECORDS SUMMARY | 2019-01-19 10:32 | XMS REPORT | Clinical Summary ---
:1970 Author Organization [facility] Address [address] [place] [address] Care Team Providers Name Role Phone Dolores [...] Not on file Results Not on fileafter 01/18/2018 Insurance Payer Benefit Plan / Group Subscriber ID Type Phone Address [facility] xxxxxxxxxxxx HMO/POS [phone] CHOICE EXCHANGE (Work) [phone]
--- OUTSIDE RECORDS SUMMARY | 2019-01-19 10:32 | XMS REPORT ---
:1970 [facility] [address] Chang [address] [place] [id number] Care Team Providers Name Role Phone VELÁSQUEZ, LIZZETTE PARRA Unavailable Unavailable Problems This patient has no known problems. Allergies, Adverse Reactions, Alerts This patient has no known allergies or adverse reactions. Medications This patient has no known medications. Results Test Description Test Time Test Comments Text Results Atomic Results Result Comments MM, STEREOTACTIC 2017-05-14 Reason for Addendum BeginsMRN#: BIOPSY, BREAST, 15:59:00 Exam:->calcification [id number]: LEFT 05/14/2017 Lizzette Velásquez M.D. 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 Addendum EndsN#: [id number] - MM, STEREOTACTIC BIOPSY, BREAST, LEFTSTEREOTACTIC GUIDED [...] correct location, five specimens were obtained using Scaled InferenceIVA device. A clip was inserted into the [...] the calcifications. Lizzette Velásquez M.D. pth/penrad:05/09/2017 11:07:57 Networker: Felicia Rizzo RT(R)(M), [facility] [id number] UE EXAM 2017-05-12 Surgical Pathology Report 12:48:00 Case: [id number] Authorizing Provider: Lizzette Velásquez MD Collected: 05/09/2017 1110 Ordering Location: [facility] Received: 05/09/2017 1312 Pathologist: Jackie Maradiaga MD Specimen: Breast, Left, LEFT MIDDLE 12 BREAST CALCIFICATION BREAST, LEFT, MIDDLE 12 O'CLOCK, CALCIFICATIONS, STEREOTACTIC CORE NEEDLE BIOPSY: - HYALINIZED FIBROADENOMA - COLUMNAR CELL HYPERPLASIA - COLUMNAR CELL CHANGES - MICROCALCIFICATIONS, COARSE, ASSOCIATED WITH FIBROADENOMA Signing Pathologist Direct Phone Line: [phone] signed by Jackie Maradiaga MD on 05/12/2017 at 12:48 PMIn the sections examined, no atypical hyperplasia or carcinoma is identified.[id number] lesion Left middle 12 o'clock breast calcifications The specimen is received in a formalin-filled container labeled with the patient's information and labeled "left middle 12 o'clock breast calcifications" and consists of multiple yellow-white breast core biopsies ranging in length from 0.6 to 2.5 cm.Ink code: Black.The specimen is submitted entirely in A1 and A2. CG/ewPerformed.[facility], Department of Pathology, [address] [place] [address], [place] [address], MM, DIGITAL, 2017-05-09 Left breast #[id number] - UNILATERAL, 11:07:00 calcifications MM, DIGITAL, UNILATERAL, [...] pathology results. Lizzette Velásquez M.D. pth/:05/09/2017 11:07:15 Networker: Felicia IRVIN (R)), [facility] Mammogram BI-RADS: Post-procedure mammogram for marker placement [id number] [place], 2017-05-09 Reason for exam:->Left #[id number] - SPECIMEN, 11:06:00 breast calcifications MM, MAMMO, SPECIMEN, RADIOGRAPH, LEFT RADIOGRAPH, LEFTSPECIMEN LEFT BREAST: 05/09/2017Five stereotactic guided biopsy specimens were imaged for the area of calcifications located in the left breast at 12 o'clock middle depth. IMPRESSION: SPECIMENThe imaged specimens includes the calcifications. Lizzette Velásquez M.D. pth/:05/09/2017 11:06:40 Networker: Felicia SCHNEIDER)(M), [facility] [id number]
[2019-01-19] MEDS ORDERED: NA CHLORIDE 0.9% 1,000 ML ONE (11:04)
[2019-01-19 11:06] LABS: Absolute Lymphocytes (CBC) 2.6 K/uL (0.7-4.9); Basophils % 0.6 % (0-1.3); Eosinophils % 3.1 % (0-4.4); Hematocrit 37.4 % (36.0-45.0); MPV 9.4 fL (7.6-11.3); Monocytes % 5.1 % (3.3-12.3); RBC Red Blood Cell Count 4.29 M/uL (3.86-4.86)
--- NOTE | 2019-01-19 11:11 | RAD REPORT ---
EXAM DESCRIPTION: CT - Head Brain Wo Cont - 01/19/2019 11:00 am CLINICAL HISTORY: DIZZINESS Headache, drowsiness COMPARISON: HEAD BRAIN W O CONTRAST dated 04/28/2013; HEAD BRAIN W O CONTRAST dated 09/17/2012 TECHNIQUE: All CT scans are performed using dose optimization technique as appropriate and may inclu de automated exposure control or mA/KV adjustment according to patient size. FINDINGS: No intracranial hemorrhage, hydrocephalus or extra-axial fluid collection.No areas of brai n edema or evidence of midline shift. The paranasal sinuses and mastoids are clear. The calvarium is intact. IMPRESSION: No acute intracranial abnormality.
[2019-01-19 11:16] LABS: Protime INR 1.04
--- NOTE | 2019-01-19 11:22 | RAD REPORT ---
EXAM DESCRIPTION: RAD - Chest Single View - 01/19/2019 11:16 am CLINICAL HISTORY: COUGH Chest pain. COMPARISON: Chest Single View dated 03/27/2018; Chest Single View dated 09/30/2017; Chest Single View d ated 03/28/2017; CHEST SINGLE VIEW dated 01/10/2015 FINDINGS: Portable technique limits examination quality. The lungs are grossly clear. The heart is normal in size. No displaced fractures. IMPRESSION: No acute intrathoracic process suspected.
[2019-01-19 11:30] LABS: ALT/SGPT 42 U/L (12-78); AST/SGOT 24 U/L (15-37); Albumin 3.6 g/dL (3.4-5.0); Alkaline Phosphatase 110 U/L (45-117); BUN Blood Urea Nitrogen 24 mg/dL (7-18); Bicarbonate 28 mmol/L (21-32); Bilirubin Direct 0.1 mg/dL (0-0.2); Bilirubin Total 0.3 mg/dL (0.2-1.0); Glucose Level 229 mg/dL (74-106); Magnesium 1.5 mg/dL (1.8-2.4); NT PRO-BNP 17 pg/mL (<125); Potassium 3.9 mmol/L (3.5-5.1); Protein, Total 7.4 g/dL (6.4-8.2); Sodium Level 133 mmol/L (136-145); Troponin (Emerg Dept Use Only) < 0.02 ng/mL (0.0-0.045)
[2019-01-19 12:17] LABS: Urine Blood NEGATIVE (NEG); Urine Glucose TRACE (NEG); Urine Protein NEGATIVE (NEG); Urine Specific Gravity <1.005 (1.005-1.030)
--- NOTE | 2019-01-19 12:25 | RAD REPORT ---
EXAM DESCRIPTION: US - CP - 01/19/2019 12:12 pm CLINICAL HISTORY: DIZZINESS Headache, drowsiness COMPARISON: C Spine Wo Con dated 03/15/2017 TECHNIQUE: Real-time sonographic evaluation of both carotid systems was performed. Doppler interroga tion was performed with waveform tracing bilaterally. FINDINGS: Normal high resistance waveforms are noted in both external carotid arteries. The common c arotid arteries and internal carotid arteries show normal low resistance waveforms. Mild soft plaquing is seen in both carotid bulbs. Peak systolic and end diastolic velocity values and the ICA/CCA ratios are in the non-hemodynamically significant range. Antegrade flow seen in both vertebral arteries. IMPRESSION: Mild soft plaque is seen in both carotid bulbs. No evidence of a hemodynamically significant stenosis.
--- NOTE | 2019-01-19 13:11 | RAD REPORT ---
EXAM DESCRIPTION: MRI - Brain Wo Cont - 01/19/2019 12:58 pm CLINICAL HISTORY: DIZZINESS Headache x2 days COMPARISON: Head Brain Wo Cont dated 01/19/2019 TECHNIQUE: Multi-sequence, multiplanar MR imaging of the brain was performed without contrast. FINDINGS: No intracranial hemorrhage, hydrocephalus or extra-axial fluid collections. No edema or sh ift of midline structures. No findings to suspect brain mass. DWI is negative for acute CVA. Midline structures are normally formed. Mastoid air cells and paranasal sinuses are clear. IMPRESSION: No acute or concerning intracranial abnormalities.
[2019-01-19] MEDS ORDERED: CEFTRIAXONE/SWI 1gm 1 GM/10 ML SYR ONE (13:24)
[2019-01-19] MEDS ORDERED: Magnesium Sulfate 2gm IVPB 2 G/50 ML BAG IV ONE (13:24)
--- NOTE | 2019-01-19 13:27 | ER ---
Nurse's Notes [facility] Name: Dena Nance Age: 49 yrs Sex: Female : 1970 Arrival Date: 01/19/2019 Time: 10:22 Bed 7 Private MD: Mason Arreguin Diagnosis: Vertiginous syndromes in diseases classified elsewhere, unspecified ear;Dizziness and giddiness;Hypomagnesemia;Type 2 diabetes mellitus Presentation: 01/19 10:33 Presenting complaint: Patient states: "every time I walk I feel like my knees give out aa5 and it's been going on for about a month but my doctor says it's my diabetes". Pt also reports dizziness and headache x 2 days ago. Pt states "when I walk I feel like I am going sideways". Pt denies nausea/vomiting. 10:33 Transition of care: patient was not received from another setting of care. Onset of aa5 symptoms was December 2018. Risk Assessment: Do you want to hurt yourself or someone else? Patient reports no desire to harm self or others. Initial Sepsis Screen: Does the patient meet any 2 criteria? No. Patient's initial sepsis screen is negative. Does the patient have a suspected source of infection? No. Patient's initial sepsis screen is negative. Care prior to arrival: None. 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 aa5 Historical: - Allergies: 10:35 NKA; aa5 - Home Meds: 10:35 metformin 1,000 mg Oral tab 2 times per day [Active]; trazodone 50 mg Oral tab 2 times aa5 per day [Active]; gabapentin 300 mg oral cap 3 times per day [Active]; dicyclomine 20 mg oral tab 4 times per day [Active]; Toujeo SoloStar subcutaneous subcutaneous [Active]; meloxicam 7.5 mg oral tab twice a day [Active]; lovastatin 40 mg Oral tab 1 tab once daily [Active]; - PMHx: 10:35 Diabetes - NIDDM; Diverticulitis; fatty liver; Pancreatitis; aa5 - PSHx: 10:35 Cholecystectomy; Hysterectomy; aa5 - Immunization history:: Flu vaccine is not up to date. - Social history:: Smoking status: Patient/guardian denies using tobacco. - Ebola Screening: : No symptoms or risks identified at this time. - Family history:: not pertinent. Screenin:43 Abuse screen: Denies threats or abuse. Nutritional screening: No deficits noted. aa5 Tuberculosis screening: No symptoms or risk factors identified. 11:32 Fall Risk IV access (20 points). Total Scott Fall Scale indicates No Risk (0-24 pts). aa5 Assessment: 10:33 General: Appears uncomfortable, Behavior is calm, cooperative. Pain: Complains of pain aa5 in top of head Pain does not radiate. Pain currently is 6 out of 10 on a pain scale. Quality of pain is described as aching, throbbing, Pain began 2-3 days ago. Is continuous. Neuro: Level of Consciousness is awake, alert, obeys commands, Oriented to person, place, time, situation, Cyanide Case Hardener are equal bilaterally Moves all extremities. Gait is unsteady, Speech is normal, Facial symmetry appears normal, Pupils are PERRLA. Cardiovascular: Heart tones S1 S2 present Patient's skin is warm and dry. Rhythm is regular. Respiratory: Airway is patent Respiratory effort is even, unlabored, Respiratory pattern is regular, symmetrical, Breath sounds are clear bilaterally. GI: Abdomen is round non-distended, Bowel sounds present X 4 quads. Abd is soft and non tender X 4 quads. Patient currently denies nausea, vomiting. : No signs and/or symptoms were reported regarding the genitourinary system. EENT: No signs and/or symptoms were reported regarding the EENT system. Derm: Skin is pink, warm \\T\\ dry. Musculoskeletal: Range of motion: intact in all extremities. 10:56 Reassessment: Pt taken to radiology . aa5 11:25 Reassessment: Pt assisted to restroom via wheelchair for urine specimen collection. aa5 11:25 Neuro: Level of Consciousness is awake, alert, obeys commands, Oriented to person, aa5 place, time, situation, Cyanide Case Hardener are equal bilaterally Moves all extremities. Gait is steady, Speech is normal, Facial symmetry appears normal, Pupils are PERRLA. 11:30 Reassessment: Patient is alert, oriented x 3, equal unlabored respirations, skin aa5 warm/dry/pink. Patient states symptoms have not improved. Urine specimen collected, clear yellow urine noted. Pt placed back in bed, bed in low position, side rails x 2, call galvin within reach. . 13:10 Reassessment: Patient is alert, oriented x 3, equal unlabored respirations, skin aa5 warm/dry/pink. Pt back from MRI. Placed back in bed, monitoring continued. . 14:50 Reassessment: Patient is alert, oriented x 3, equal unlabored respirations, skin aa5 warm/dry/pink. Pt sitting up in bed eating, pt tolerating well. . 15:21 Reassessment: Patient is alert, oriented x 3, equal unlabored respirations, skin aa5 warm/dry/pink. Vital Signs: 10:34 BP 119 / 71; Pulse 83; Resp 16 S; Temp 98.0(O); Pulse Ox 99% on R/A; Weight 68.04 kg aa5 (R); Height 5 ft. 4 in. (162.56 cm) (R); Pain 6/10; 11:20 BP 117 / 67; Pulse 77; Resp 16 S; Pulse Ox 99% on R/A; aa5 13:10 BP 110 / 67; Pulse 72; Resp 16 S; Pulse Ox 99% on R/A; aa5 14:38 BP 113 / 70; Pulse 69; Resp 16 S; Temp 98.0(TE); Pulse Ox 97% on R/A; aa5 10:34 Body Mass Index 25.75 (68.04 kg, 162.56 cm) aa5 ED Course: 10:22 Patient arrived in ED. dp 10:23 Mason Arreguin MD is Private Physician. dp 10:36 Arm band placed on Patient placed in an exam room, on a stretcher. aa5 10:36 Patient has correct armband on for positive identification. Placed in gown. Bed in low aa5 position. Call light in reach. Side rails up X2. fountain pen nibs inspector on. Pulse ox on. NIBP on. 10:37 Rufina Hammond, SHADE is Primary Nurse. aa5 10:39 Ricardo Araiza MD is Attending Physician. tavo 10:40 Triage completed. aa5 10:47 EKG done, by vibration technician. reviewed by Ricardo Araiza MD. aa5 10:58 Initial lab(s) drawn, by me, sent to lab. Inserted saline lock: 20 gauge in right em1 antecubital area, using aseptic technique. Blood collected. 11:01 CT Head Brain wo Cont In Process Unspecified. EDMS 11:14 X-ray completed. Portable x-ray completed in exam room. Patient tolerated procedure sw well. 11:19 XRAY Chest (1 view) In Process Unspecified. EDMS 12:15 US Carotid Artery Bilateral In Process Unspecified. EDMS 12:18 Ultrasound completed. aa4 12:21 Patient moved to MRI via wheelchair. em2 12:59 Brain Wo Cont In Process Unspecified. EDMS 13:14 MRI completed. Patient tolerated well. Patient moved back from MRI. em2 13:26 Mason Arreguin MD is Referral Physician. tavo 13:26 Bryno Gomez MD is Referral Physician. [facility] 13:36 No provider procedures requiring assistance completed. aa5 15:21 IV discontinued, intact, bleeding controlled, No redness/swelling at site. Pressure aa5 dressing applied. Administered Medications: 11:32 Drug: NS 0.9% 1000 ml Route: IV; Rate: 125 ml/hr; Site: right antecubital; aa5 15:21 Follow up: IV Status: Order to discontinue infusion aa5 13:10 Drug: Rocephin - (cefTRIAXone) 1 grams {Note: administered slow IVP per pharmacy at [facility] this time. .} Route: IVPB; Infused Over: 30 mins; Site: right antecubital; 13:15 Follow up: Response: No adverse reaction aa5 13:15 Drug: Magnesium Sulfate 2 grams Route: IVPB; Infused Over: 2 hrs; Site: right [facility] antecubital; 15:21 Follow up: Response: No adverse reaction; IV Status: Completed infusion aa5 Outcome: 13:26 Discharge ordered by . tavo 15:21 Discharged to home ambulatory. aa5 15:21 Condition: improved 15:21 Discharge instructions given to patient, Instructed on discharge instructions, follow up and referral plans. medication usage, Demonstrated understanding of instructions, follow-up care, medications, Prescriptions given X 2. 15:22 Patient left the ED. aa5 Signatures: Dispatcher [employer] EDMS Ricardo Araiza MD MD cha Frazier, Amanda aa4 Kadeem Farris em1 Rufina Hammond RN RN aa5 Marcellus Calderon em2 Manasa Thomson sw Markie Samayoa dp Corrections: (The following items were deleted from the chart) 13:34 13:15 Rocephin - (cefTRIAXone) 1 grams IVPB in right antecubital over 30 mins aa5 aa5 13:35 13:10 (cefTRIAXone) 1 grams IVPB in right antecubital over 30 mins aa5 aa5 15:22 15:20 Patient left the ED. aa5 aa5
--- NOTE | 2019-01-19 13:28 | EDPHYS ---
Physician Documentation [facility] Name: Dena Nance Age: 49 yrs Sex: Female : 1970 Arrival Date: 01/19/2019 Time: 10:22 Bed 7 Private MD: Mason Arreguin ED Physician Ricardo Araiza HPI: 01/19 12:48 This 49 yrs old Female presents to ER via Wheelchair with complaints of tavo Dizziness, Headache. 12:48 The patient presents with dizziness, generalized weakness. Onset: The symptoms/episode tavo began/occurred 2 day(s) ago. Context: occurred at an unknown location. Modifying factors: The symptoms are alleviated by nothing, the symptoms are aggravated by standing up, changing position. Associated signs and symptoms: The patient has no apparent associated signs or symptoms. Severity of symptoms: At their worst the symptoms were mild in the emergency department the symptoms are unchanged. Patient's baseline: Neuro:. The patient has not experienced similar symptoms in the past. 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 - Hysterectomy aa5 Historical: - Allergies: 10:35 NKA; aa5 - Home Meds: 10:35 metformin 1,000 mg Oral tab 2 times per day [Active]; trazodone 50 mg Oral tab 2 times aa5 per day [Active]; gabapentin 300 mg oral cap 3 times per day [Active]; dicyclomine 20 mg oral tab 4 times per day [Active]; Toujeo SoloStar subcutaneous subcutaneous [Active]; meloxicam 7.5 mg oral tab twice a day [Active]; lovastatin 40 mg Oral tab 1 tab once daily [Active]; - PMHx: 10:35 Diabetes - NIDDM; Diverticulitis; fatty liver; Pancreatitis; aa5 - PSHx: 10:35 Cholecystectomy; Hysterectomy; aa5 - Immunization history:: Flu vaccine is not up to date. - Social history:: Smoking status: Patient/guardian denies using tobacco. - Ebola Screening: : No symptoms or risks identified at this time. - Family history:: not pertinent. ROS: 12:48 Constitutional: Negative for fever, chills, and weight loss, Eyes: Negative for injury, tavo pain, redness, and discharge, ENT: Negative for injury, pain, and discharge, Neck: Negative for injury, pain, and swelling, Cardiovascular: Negative for chest pain, palpitations, and edema, Respiratory: Negative for shortness of breath, cough, wheezing, and pleuritic chest pain, Abdomen/GI: Negative for abdominal pain, nausea, vomiting, diarrhea, and constipation, Back: Negative for injury and pain, : Negative for injury, bleeding, discharge, and swelling, MS/Extremity: Negative for injury and deformity, Skin: Negative for injury, rash, and discoloration, Allergy/Immunology: Negative for hives, rash, and allergies, Endocrine: Negative for neck swelling, polydipsia, polyuria, polyphagia, and marked weight changes, Hematologic/Lymphatic: Negative for swollen nodes, abnormal bleeding, and unusual bruising. 12:48 Neuro: Positive for dizziness, weakness. Exam: 12:48 Constitutional: This is a well developed, well nourished patient who is awake, alert, tavo and in no acute distress. Head/Face: Normocephalic, atraumatic. Eyes: Pupils equal round and reactive to light, extra-ocular motions intact. Lids and lashes normal. Conjunctiva and sclera are non-icteric and not injected. Cornea within normal limits. Periorbital areas with no swelling, redness, or edema. ENT: Nares patent. No nasal discharge, no septal abnormalities noted. Tympanic membranes are normal and external auditory canals are clear. Oropharynx with no redness, swelling, or masses, exudates, or evidence of obstruction, uvula midline. Mucous membranes moist. Neck: Trachea midline, no thyromegaly or masses palpated, and no cervical lymphadenopathy. Supple, full range of motion without nuchal rigidity, or vertebral point tenderness. No Meningismus. Chest/axilla: Normal chest wall appearance and motion. Nontender with no deformity. No lesions are appreciated. Cardiovascular: Regular rate and rhythm with a normal S1 and S2. No gallops, murmurs, or rubs. Normal PMI, no JVD. No pulse deficits. Respiratory: Lungs have equal breath sounds bilaterally, clear to auscultation and percussion. No rales, rhonchi or wheezes noted. No increased work of breathing, no retractions or nasal flaring. Abdomen/GI: Soft, non-tender, with normal bowel sounds. No distension or tympany. No guarding or rebound. No evidence of tenderness throughout. Back: No spinal tenderness. No costovertebral tenderness. Full range of motion. Skin: Warm, dry with normal turgor. Normal color with no rashes, no lesions, and no evidence of cellulitis. MS/ Extremity: Pulses equal, no cyanosis. Neurovascular intact. Full, normal range of motion. Neuro: Awake and alert, GCS 15, oriented to person, place, time, and situation. Cranial nerves II-XII grossly intact. Motor strength 5/5 in all extremities. Sensory grossly intact. Cerebellar exam normal. Normal gait. Psych: Awake, alert, with orientation to person, place and time. Behavior, mood, and affect are within normal limits. Vital Signs: 10:34 BP 119 / 71; Pulse 83; Resp 16 S; Temp 98.0(O); Pulse Ox 99% on R/A; Weight 68.04 kg aa5 (R); Height 5 ft. 4 in. (162.56 cm) (R); Pain 6/10; 11:20 BP 117 / 67; Pulse 77; Resp 16 S; Pulse Ox 99% on R/A; aa5 13:10 BP 110 / 67; Pulse 72; Resp 16 S; Pulse Ox 99% on R/A; aa5 14:38 BP 113 / 70; Pulse 69; Resp 16 S; Temp 98.0(TE); Pulse Ox 97% on R/A; aa5 10:34 Body Mass Index 25.75 (68.04 kg, 162.56 cm) aa5 MDM: 10:40 Patient medically screened. [facility] 12:54 Data reviewed: vital signs, nurses notes, lab test result(s), EKG, radiologic studies, [facility] CT scan, doppler, MRI, plain films. 01/19 10:42 Order name: Basic Metabolic Panel; Complete Time: 12:48 [facility] 01/19 10:42 Order name: CBC with Diff; Complete Time: 12:48 [facility] 01/19 10:42 Order name: LFT's; Complete Time: 12:48 [facility] 01/19 10:42 Order name: Magnesium; Complete Time: 12:48 [facility] 01/19 10:42 Order name: NT PRO-BNP; Complete Time: 12:48 [facility] 01/19 10:42 Order name: PT-INR; Complete Time: 12:48 [facility] 01/19 10:42 Order name: Troponin (emerg Dept Use Only); Complete Time: 12:48 [facility] 01/19 10:42 Order name: XRAY Chest (1 view); Complete Time: 12:48 [facility] 01/19 10:42 Order name: CT Head Brain wo Cont; Complete Time: 12:48 [facility] 01/19 11:12 Order name: US Carotid Artery Bilateral; Complete Time: 12:49 [facility] 01/19 11:33 Order name: Urine Dipstick--Ancillary (enter results); Complete Time: 12:48 bd 01/19 12:16 Order name: Brain Wo Cont; Complete Time: 13:25 EDMS 01/19 12:48 Order name: Urine Culture [facility] 01/19 10:42 Order name: EKG; Complete Time: 10:44 [facility] 01/19 10:42 Order name: Cardiac monitoring; Complete Time: 10:44 [facility] 01/19 10:42 Order name: EKG - Nurse/Tech; Complete Time: 10:49 [facility] 01/19 10:42 Order name: IV Saline Lock; Complete Time: 10:56 [facility] 01/19 10:42 Order name: Labs collected and sent; Complete Time: 10:56 [facility] 01/19 10:42 Order name: O2 Per Protocol; Complete Time: 10:44 [facility] 01/19 10:42 Order name: O2 Sat Monitoring; Complete Time: 10:44 [facility] 01/19 10:42 Order name: Urine Dipstick-Ancillary (obtain specimen); Complete Time: 11:34 [facility] 01/19 13:38 Order name: Diet Ada 1800 Aristeo; Complete Time: 13:40 aa5 Administered Medications: 11:32 Drug: NS 0.9% 1000 ml Route: IV; Rate: 125 ml/hr; Site: right antecubital; aa5 15:21 Follow up: IV Status: Order to discontinue infusion aa5 13:10 Drug: Rocephin - (cefTRIAXone) 1 grams {Note: administered slow IVP per pharmacy at [facility] this time. .} Route: IVPB; Infused Over: 30 mins; Site: right antecubital; 13:15 Follow up: Response: No adverse reaction aa5 13:15 Drug: Magnesium Sulfate 2 grams Route: IVPB; Infused Over: 2 hrs; Site: right [facility] antecubital; 15:21 Follow up: Response: No adverse reaction; IV Status: Completed infusion aa5 Disposition: 01/19/19 13:26 Discharged to Home. Impression: Vertiginous syndromes in diseases classified elsewhere, unspecified ear, Dizziness and giddiness, Hypomagnesemia, Type 2 diabetes mellitus. - Condition is Stable. - Discharge Instructions: Type 2 Diabetes Mellitus, Diagnosis, Adult, Dizziness, Hypomagnesemia, Vertigo, Vertigo, [id number], Type 2 Diabetes Mellitus, Diagnosis, Adult, [id number], Dizziness, [id number]. - Prescriptions for Meclizine 25 mg Oral Tablet - take 1 tablet by ORAL route every 8 hours As needed; 30 tablet. Zofran 4 mg Oral Tablet - take 1 tablet by ORAL route every 12 hours As needed; 20 tablet. - Medication Reconciliation Form, Thank You Letter, Antibiotic Education, Prescription Opioid Use form. - Follow up: Mason Arreguin MD; When: 2 - 3 days; Reason: Recheck today's complaints, Continuance of care, Re-evaluation by your physician. Follow up: Bryon Gomez MD; When: 2 - 3 days; Reason: Recheck today's complaints, Continuance of care, Re-evaluation by your physician. - Problem is new. - Symptoms have improved. Signatures: Dispatcher [employer] [facility] Ricardo Araiza MD MD cha Calderon, Audri, RN RN aa5 Corrections: (The following items were deleted from the chart) 12:15 11:14 MR STROKE PROTOCOL+MRI.RAD.BRZ ordered. [facility] 13:27 13:26 01/19/2019 13:26 Discharged to Home. Impression: Vertiginous syndromes in tavo diseases classified elsewhere, unspecified ear; Dizziness and giddiness. Condition is Stable. Forms are Medication Reconciliation Form, Thank You Letter, Antibiotic Education, Prescription Opioid Use. Follow up: Mason Arreguin; When: 2 - 3 days; Reason: Recheck today's complaints, Continuance of care, Re-evaluation by your physician. Follow up: Bryon Gmoez; When: 2 - 3 days; Reason: Recheck today's complaints, Continuance of care, Re-evaluation by your physician. Problem is new. Symptoms have improved. [facility] 15:20 13:27 01/19/2019 13:26 Discharged to Home. Impression: Vertiginous syndromes in aa5 diseases classified elsewhere, unspecified ear; Dizziness and giddiness; Hypomagnesemia; Type 2 diabetes mellitus. Condition is Stable. Forms are Medication Reconciliation Form, Thank You Letter, Antibiotic Education, Prescription Opioid Use. Follow up: Mason Arreguin; When: 2 - 3 days; Reason: Recheck today's complaints, Continuance of care, Re-evaluation by your physician. Follow up: Bryon Gomez; When: 2 - 3 days; Reason: Recheck today's complaints, Continuance of care, Re-evaluation by your physician. Problem is new. Symptoms have improved. tavo
[2019-01-19 15:48] VITALS: TEMP 98
[2019-01-19 15:53] VITALS: BP 113/70; O2SAT 97
--- NOTE | 2019-01-20 10:42 | EKG ---
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
== END 2019-01-19 15:20 | disposition home or self-care (01) ==
LOC: ER 10:18
DX: R42 Dizziness and giddiness (principal); H82.9 Vertiginous syndromes in diseases classified elsewhere, unspecified ear; E83.42 Hypomagnesemia; E11.9 Type 2 diabetes mellitus without complications
CPT/HCPCS: 36415; 70450; 70551; 71045; 80048; 80076; 81003; 83735; 83880; 84484; 85025; 85610; 87086; 87088; 93005; 93880; 96361; 96365; 96366; 96375; 99285; J0696; J3475; J7030

== ENCOUNTER 2019-08-07 13:36 | Emergency (ER) | payer OTHER ==
--- OUTSIDE RECORDS SUMMARY | 2019-08-07 13:38 | XMS REPORT ---
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 66117392572 100 UNIT/ML Apr 28, Active 22 units KwikPen Subcutaneous 2019 daily and once daily titrate up 2 units every 2 days until FBG less 120 max of 50 units daily Results No Known Results Summary Purpose [employer] Submission
--- OUTSIDE RECORDS SUMMARY | 2019-08-07 13:38 | XMS REPORT ---
:1970 Author Organization [employer] Care Team Providers Name Role Phone Benjamin, Na Provider Role Unavailable Allergies, Adverse Reactions, Alerts Substance Reaction Event Type N.K.D.A. 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 Problem Vitamin D deficiency E55.9 Active Problem Decreased mobility R26.89 Active Problem Mixed hyperlipidemia E78.2 Active Problem Fatty liver K76.0 Active Problem Depression with anxiety F41.8 Active Problem Seasonal allergies J30.2 Active Problem Uncontrolled type 2 diabetes E11.65 Active mellitus with hyperglycemia Assessment Multiple joint pain M25.50 Active Assessment Vitamin D deficiency E55.9 Active Assessment Decreased mobility R26.89 Active Assessment Other specified bacterial agents as B96.89 Active the cause of diseases classified elsewhere Assessment Fatty liver K76.0 Active Assessment Depression with anxiety F41.8 Active Assessment Hepatomegaly R16.0 Active Assessment 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 Assessment Mixed hyperlipidemia E78.2 Active Assessment Uncontrolled type 2 diabetes E11.65 Active mellitus with hyperglycemia Medications Medication Code Code Instructions Start End Status Dosage System Date Date Duloxetine HCl ND 22382099807 30 MG Orally Active 1 capsule Once a day Basaglar ND 06139110656 100 UNIT/ML Apr 28, Active 22 units KwikPen Subcutaneous 2018 daily and once daily titrate up 2 units every 2 days until FBG less 120 max of 50 units daily FreeStyle Tay ND 67554924422 - daily Active as directed 14 Day [place] NovoFine Plus ND 56296696216 32G X 4 MM SC Jul 05, Active as directed once daily 2019 Metformin HCl ND 40811960099 500 MG Orally Active 2 tablet twice a day with a meal Fluticasone ND 76447460052 50 MCG/ACT Apr 16, Active 1 spray in Propionate Nasally Once a 2019 each nostril day Tresiba ND 34128742050 100 UNIT/ML Active 20 units in FlexTouch Subcutaneous pm titrate daily up 2 units every 3 days until fbg less 100 (max of 30 units daily) FreeStyle Tay [facility] 85552647024 - Active USE 14 Day Sensor DIRECTED EVERY 14 DAYS Sertraline HCl ND 86953754616 100 MG Orally Jun 22, Active 1 tablet Once a day 2018 Cefdinir ND 67593734602 300 MG Orally Jul 05, Jul 15, Active 1 capsule every 12 hours 2019 2019 Gabapentin [facility] NAMED [facility] 01109789816 300 MG Orally Active 1 capsule three times a day Glimepiride [facility] NAMED [facility] 70777286752 4 MG Orally Active 1 tablet Once a day with breakfast or the first main meal of the day Results No Known Results Summary Purpose [employer]ClinicalWorks Submission
--- OUTSIDE RECORDS SUMMARY | 2019-08-07 13:38 | XMS REPORT ---
:1970 Author Organization eClinicalWorks Care Team Providers Name Role Phone Benjamin, Na Provider Role Unavailable Allergies, Adverse Reactions, Alerts Substance Reaction Event Type N.K.D.A. 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 Problem Decreased mobility R26.89 Active Problem Seasonal allergies J30.2 Active Problem Vitamin D deficiency E55.9 Active Problem Depression with anxiety F41.8 Active Problem Uncontrolled type 2 diabetes E11.65 Active mellitus with hyperglycemia Problem 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 Problem Fatty liver K76.0 Active Medications Medication Code Code Instructions Start End Status Dosage System Date Date Diclofenac ND 16793974762 75 MG Orally May 24, Jun 03, Active 1 tablet Sodium Twice a day prn 2018 2018 with food or pain milk Duloxetine HCl ND 56785965533 30 MG Orally Active 1 capsule Once a day Fluticasone ND 87205999921 50 MCG/ACT Apr 16, Active 1 spray in Propionate Nasally Once a 2019 each nostril day Metformin HCl ND 26830257667 500 MG Orally Active 2 tablet twice a day with a meal Tresiba ND 62468309702 100 UNIT/ML Active 10 units in FlexTouch Subcutaneous pm titrate daily up 2 units every 3 days until fbg less 100 (max of 30 units daily) FreeStyle Tay ND 97575471485 - Active USE 14 Day Sensor DIRECTED EVERY 14 DAYS Basaglar ND 92585568837 100 UNIT/ML Apr 28, Active 22 units KwikPen Subcutaneous 2019 daily and once daily titrate up 2 units every 2 days until FBG less 120 max of 50 units daily Gabapentin ND 13408597966 300 MG Orally Active 1 capsule three times a day Glimepiride ND 88345956014 4 MG Orally Active 1 tablet Once a day with breakfast or the first main meal of the day FreeStyle Tay [facility] 70849148084 - daily Active as directed 14 Day [place] Results No Known Results Summary Purpose eClinicalWorks Submission
--- OUTSIDE RECORDS SUMMARY | 2019-08-07 13:38 | XMS REPORT ---
:1970 Author Organization eClinicalWorks Care Team Providers Name Role Phone Benjamin, Na Provider Role Unavailable Allergies, Adverse Reactions, Alerts Substance Reaction Event Type N.K.D.A. 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 Problem Fatty liver K76.0 Active Assessment Hepatomegaly R16.0 Active Assessment Vitamin D deficiency E55.9 Active Assessment 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 Assessment History of TIA (transient ischemic Z86.73 Active attack) Assessment Fatty liver K76.0 Active Assessment Depression with anxiety F41.8 Active Assessment Decreased mobility R26.89 Active Assessment Multiple joint pain M25.50 Active Medications Medication Code Code Instructions Start End Status Dosage System Date Date Tre [facility] 14363926701 100 UNIT/ML Active 10 units in FlexTouch Subcutaneous pm titrate daily up 2 units every 3 days until fbg less 100 (max of 30 units daily) Basaglar [facility] 12085944776 100 UNIT/ML Apr 28, Active 22 units KwikPen Subcutaneous 2019 daily and once daily titrate up 2 units every 2 days until FBG less 120 max of 50 units daily Duloxetine HCl ND 12864864066 30 MG Orally Active 1 capsule Once a day Metformin HCl ND 88413721925 500 MG Orally Active 2 tablet twice a day with a meal Glimepiride ND 17306974377 4 MG Orally Active 1 tablet Once a day with breakfast or the first main meal of the day FreeStyle Tay [facility] 57423853135 - Active USE 14 Day Sensor DIRECTED EVERY 14 DAYS Gabapentin ND 64520915169 100 MG Orally Active 1 capsule three times a day Freeyle Tay [facility] 53732620912 - daily Active as directed 14 Day [place] Fluticasone [facility] 13666909491 50 MCG/ACT Apr 16, Active 1 spray in Propionate Nasally Once a 2019 each nostril day Results Name Result Date Reference Range Unit Abnormality Flag Vitamin D, 25-Hydroxy ----Vitamin D, 25-Hydroxy 29.1 20190504 30.0-100.0 ng/mL L SAMIA w/Reflex if Positive ----SAMIA Direct Negative [id number] Negative Rheumatoid Arthritis Factor ----RA Latex Turbid. <10.0 20190504 0.0-13.9 IU/mL Summary Purpose eClinicalWorks Submission
--- OUTSIDE RECORDS SUMMARY | 2019-08-07 13:38 | XMS REPORT ---
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
--- OUTSIDE RECORDS SUMMARY | 2019-08-07 13:38 | XMS REPORT ---
[...] Medications Medication Code Code Instructions Start End Date Status Dosage System Date Sertraline HCl [facility] 97368500528 50 MG Orally Jun 22, Active 1 tablet Once a day 2018 Results No Known Results Summary Purpose eClinicalWorks Submission
--- OUTSIDE RECORDS SUMMARY | 2019-08-07 13:38 | XMS REPORT ---
[...] mellitus Problem Fatty liver K76.0 Active Medications No Known Medications Results No Known Results Summary Purpose eClinicalWorks Submission
--- OUTSIDE RECORDS SUMMARY | 2019-08-07 13:38 | XMS REPORT ---
:1970 Author [facility] Address [address] [place] [address] Dr. Chang [address] [place] [address] Care Team Providers Name Role Phone LIZZETTE VELÁSQUEZ Unavailable Unavailable Problems This patient has no known problems. Allergies, Adverse Reactions, Alerts This patient has no known allergies or adverse reactions. Medications This patient has no known medications. Results Test Description Test Time Test Comments Text Results Atomic Results Result Comments MM, STEREOTACTIC 2017-05-14 Reason for Addendum BeginsMRN#: BIOPSY, BREAST, 15:59:00 Exam:->calcification [id number]: LEFT 05/14/2017 Lizzette Velásquez M.D. 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 Addendum EndsMRN#: [id number] - MM, STEREOTACTIC BIOPSY, BREAST, LEFTSTEREOTACTIC GUIDED [...] correct location, five specimens were obtained using [employer] device. A clip was inserted into the [...] the calcifications. Lizzette Velásquez M.D. pth/penrad:05/09/2017 11:07:57 Financial Reporting Advisor: Felicia Rizzo RT(R)(M), [facility] [id number] UE EXAM 2017-05-12 Surgical Pathology Report 12:48:00 Case: [id number] Authorizing Provider: Lizzette Velásquez MD Collected: 05/09/2017 1110 Ordering Location: [facility] Received: 05/09/2017 1312 Pathologist: Jackie Maradiaga MD Specimen: Breast, Left, LEFT MIDDLE 12 BREAST CALCIFICATION BREAST, LEFT, MIDDLE 12 O'CLOCK, CALCIFICATIONS, STEREOTACTIC CORE NEEDLE BIOPSY: - HYALINIZED FIBROADENOMA - COLUMNAR CELL HYPERPLASIA - COLUMNAR CELL CHANGES - MICROCALCIFICATIONS, COARSE, ASSOCIATED WITH FIBROADENOMA Signing Pathologist Direct Phone Line: [phone] signed by Jackie Maradiaga MD on 05/12/2017 at 12:48 PMIn the sections examined, no atypical hyperplasia or carcinoma is identified.[id number] lesion Left middle 12 o'clock breast calcifications The specimen is received in a formalin-filled container labeled with the patient's information and labeled "left middle 12 o'clock breast calcifications" and consists of multiple yellow-white breast core biopsies ranging in length from 0.6 to 2.5 cm.Ink code: Black.The specimen is submitted entirely in A1 and A2. CG/ewPerformed.[facility], Department of Pathology, [address] [place] [address], [place] [address], MM, DIGITAL, 2017-05-09 Left breast #[id number] - UNILATERAL, 11:07:00 calcifications MM, DIGITAL, UNILATERAL, [...] pathology results. Lizzette Velásquez M.D. pth/:05/09/2017 11:07:15 Financial Reporting Advisor: Felicia IRVIN (R)), [facility] Mammogram BI-RADS: Post-procedure mammogram for marker placement [id number] [place], 2017-05-09 Reason for exam:->Left #[id number] - SPECIMEN, 11:06:00 breast calcifications MM, MAMMO, SPECIMEN, RADIOGRAPH, LEFT RADIOGRAPH, LEFTSPECIMEN LEFT BREAST: 05/09/2017Five stereotactic guided biopsy specimens were imaged for the area of calcifications located in the left breast at 12 o'clock middle depth. IMPRESSION: SPECIMENThe imaged specimens includes the calcifications. Lizzette Velásquez M.D. pth/:05/09/2017 11:06:40 Financial Reporting Advisor: Felicia SCHNEIDER)(Phil), [facility] [id number]
[2019-08-07] MEDS ORDERED: ONDANSETRON 4 MG/2 ML VIAL ONE (14:15)
[2019-08-07] MEDS ORDERED: MORPHINE 4 MG/ML SYR ONE ×2 (14:15→15:34)
[2019-08-07 14:38] LABS: Absolute Lymphocytes (CBC) 1.9 K/uL (0.7-4.9); Basophils % 0.7 % (0-1.3); Lymphocytes % 22.3 % (15.3-44.8); MPV 9.1 fL (7.6-11.3); RBC Red Blood Cell Count 4.51 M/uL (3.86-4.86)
[2019-08-07 14:56] LABS: ALT/SGPT 51 U/L (12-78); AST/SGOT 38 U/L (15-37); Albumin 3.5 g/dL (3.4-5.0); Alkaline Phosphatase 131 U/L (45-117); BUN Blood Urea Nitrogen 9 mg/dL (7-18); Bicarbonate 28 mmol/L (21-32); Bilirubin Direct < 0.1 mg/dL (0-0.2); Bilirubin Total 0.3 mg/dL (0.2-1.0); Glucose Level 189 mg/dL (74-106); Lipase 266 U/L (73-393); Potassium 3.9 mmol/L (3.5-5.1); Protein, Total 7.4 g/dL (6.4-8.2); Sodium Level 137 mmol/L (136-145)
--- NOTE | 2019-08-07 15:37 | RAD REPORT ---
EXAM DESCRIPTION: CT - Abdomen Pelvis W Contrast - 08/07/2019 3:15 pm CLINICAL HISTORY: Abdominal pain COMPARISON: 10/16 TECHNIQUE: Computed axial tomography of the abdomen pelvis was obtained. 100 cc Isovue-300 was admin istered intravenously. Oral contrast was not requested which limits evaluation of bowel. All CT scans are performed using dose optimization technique as appropriate and may include automated exposure control or mA/KV adjustment according to patient size. FINDINGS: Fatty liver. Cholecystectomy Spleen, pancreas, adrenal and kidneys appear unremarkable. There is no evidence of diverticulitis. Normal appendix Small umbilical hernia. Hysterectomy IMPRESSION: No acute abnormality is displayed.
--- NOTE | 2019-08-07 15:54 | ER ---
Nurse's Notes [facility] Name: Dena Nance Age: 49 yrs Sex: Female : 1970 Arrival Date: 08/07/2019 Time: 13:37 Bed 18 Private MD: Anette Benjamin Diagnosis: Unspecified abdominal pain Presentation: 08/07 13:33 Presenting complaint: Sharp epigastric pain 10/10 that radiates to mid back x 2 hrs. hb Denies N/V/D/fever. Transition of care: patient was not received from another setting of care. Onset of symptoms was August 07, 2019. Risk Assessment: Do you want to hurt yourself or someone else? Patient reports no desire to harm self or others. Initial Sepsis Screen: Does the patient meet any 2 criteria? HR > 90 bpm. No. Patient's initial sepsis screen is negative. Does the patient have a suspected source of infection? No. Patient's initial sepsis screen is negative. Care prior to arrival: None. 13:33 Method Of Arrival: Ambulatory hb 13:33 Acuity: MARIANA 3 hb Historical: - Allergies: 13:35 NKA; hb - PMHx: 13:35 Diverticulitis; Diabetes - NIDDM; fatty liver; Pancreatitis; hb - PSHx: 13:35 Cholecystectomy; Hysterectomy; hb - Immunization history:: Adult Immunizations up to date. - Coronavirus screen:: The patient has NOT traveled to [place], [place], or [place] in the past 14 days. The patient has NOT had contact with known/suspected case of Coronavirus? Proceed with normal triage procedures. - Social history:: Smoking status: . - Ebola Screening: : No symptoms or risks identified at this time. Screenin:40 Abuse screen: Denies threats or abuse. Nutritional screening: No deficits noted. rb1 Tuberculosis screening: No symptoms or risk factors identified. Fall Risk None identified. Assessment: 13:40 General: Appears uncomfortable, Behavior is calm, cooperative, Denies fever. Pain: rb1 Complains of pain in epigastric area Pain radiates to mid back Pain currently is 10 out of 10 on a pain scale. Pain began 2 hours ago. Neuro: Level of Consciousness is awake, alert, obeys commands, Oriented to person, place, time, situation. Cardiovascular: Denies chest pain, Capillary refill < 3 seconds is brisk in bilateral fingers. Respiratory: Airway is patent Respiratory effort is even, unlabored, Respiratory pattern is regular, symmetrical. GI: No signs and/or symptoms were reported involving the gastrointestinal system. Patient currently denies diarrhea, nausea, vomiting. : No signs and/or symptoms were reported regarding the genitourinary system. Derm: Skin is pink, warm \T\ dry. 14:40 Reassessment: Patient appears in no apparent distress at this time. No changes from rb1 previously documented assessment. 15:06 Reassessment: Pt. went to CT. rb1 15:40 Reassessment: Patient appears in no apparent distress at this time. Patient and/or rb1 family updated on plan of care and expected duration. Pain level reassessed. Patient is alert, oriented x 3, equal unlabored respirations, skin warm/dry/pink. 16:14 Reassessment: Patient appears in no apparent distress at this time. Patient and/or rb1 family updated on plan of care and expected duration. Pain level reassessed. Patient is alert, oriented x 3, equal unlabored respirations, skin warm/dry/pink. Family at the bedside. Vital Signs: 13:35 BP 138 / 65; Pulse 94; Resp 16; Temp 98.3; Pulse Ox 97% on R/A; Weight 77.11 kg; Height hb 5 ft. 4 in. (162.56 cm); Pain 10/10; 14:35 BP 128 / 51; Pulse 94; Resp 17; Pulse Ox 95% on R/A; rb1 15:35 BP 127 / 63; Pulse 95; Resp 18; Pulse Ox 97% on R/A; rb1 13:35 Body Mass Index 29.18 (77.11 kg, 162.56 cm) hb ED Course: 13:34 Triage completed. hb 13:35 Arm band placed on. hb 13:37 Patient arrived in ED. as 13:37 Anette Benjamin MD is Private Physician. as 13:40 Patient has correct armband on for positive identification. Bed in low position. Call rb1 light in reach. Side rails up X 1. Pulse ox on. NIBP on. 13:48 Robin Moise NP is PHCP. pm1 13:48 Roberto Alejo MD is Attending Physician. pm1 14:09 Rae Boggs, SHADE is Primary Nurse. rb1 14:19 Radiology exam delayed due to lab results not completed at this time. (BUN/Creatinine). bq 14:25 Inserted saline lock: 22 gauge in right antecubital area, using aseptic technique. rb1 Blood collected. 14:56 Radiology exam delayed due to lab results not completed at this time. (BUN/Creatinine). mw3 15:14 CT completed. Patient tolerated procedure well. Patient moved back from CT. bq 15:17 CT Abd/Pelvis - IV Contrast Only In Process Unspecified. EDMS 16:15 No provider procedures requiring assistance completed. IV discontinued, intact, rb1 bleeding controlled, No redness/swelling at site. Pressure dressing applied. Administered Medications: 14:25 Drug: Zofran 4 mg Route: IVP; Site: right antecubital; rb1 14:40 Follow up: Response: No adverse reaction rb1 14:25 Drug: morphine 4 mg Route: IVP; Site: right antecubital; rb1 14:40 Follow up: Response: No adverse reaction; Pain is decreased rb1 15:38 Drug: morphine 4 mg Route: IVP; Site: right antecubital; rb1 16:00 Follow up: Response: No adverse reaction; Pain is decreased rb1 Outcome: 15:53 Discharge ordered by MD. pm1 16:15 Discharged to home ambulatory, with family. rb1 16:15 Condition: stable 16:15 Discharge instructions given to patient, Instructed on discharge instructions, follow up and referral plans. medication usage, Demonstrated understanding of instructions, follow-up care, medications, Prescriptions given X 3. 16:17 Patient left the ED. rb1 Signatures: Dispatcher [employer] EDMS Tatiana Wynn Myranda Farris Rebecca, RN RN rb1 Robin Moise, LUMBER STICKER LUMBER STICKER pm1 Taryn Escobar, SHADE RN Bety Zelaya mw3
--- NOTE | 2019-08-07 15:54 | EDPHYS ---
Physician Documentation [facility] Name: Dena Nance Age: 49 yrs Sex: Female : 1970 Arrival Date: 08/07/2019 Time: 13:37 Bed 18 Private MD: Anette Benjamin ED Physician Roberto Alejo HPI: 08/07 13:56 This 49 yrs old Female presents to ER via Ambulatory with complaints of pm1 Epigastric Pain, Back Pain. 13:56 The patient presents with abdominal pain in the epigastric area. Onset: The pm1 symptoms/episode began/occurred today. The symptoms radiate to back. Associated signs and symptoms: none. Pertinent negatives: nausea, vomiting, and diarrhea, chest pain, constipation, dysuria, fever, headache, shortness of breath. Modifying factors: The symptoms are alleviated by nothing, the symptoms are aggravated by nothing. The patient has not experienced similar symptoms in the past. It is unknown whether or not the patient has recently seen a physician. Historical: - Allergies: 13:35 NKA; hb - PMHx: 13:35 Diverticulitis; Diabetes - NIDDM; fatty liver; Pancreatitis; hb - PSHx: 13:35 Cholecystectomy; Hysterectomy; hb - Immunization history:: Adult Immunizations up to date. - Coronavirus screen:: The patient has NOT traveled to [place], [place], or [place] in the past 14 days. The patient has NOT had contact with known/suspected case of Coronavirus? Proceed with normal triage procedures. - Social history:: Smoking status: . - Ebola Screening: : No symptoms or risks identified at this time. ROS: 13:56 Constitutional: Negative for fever, chills, and weight loss, Neck: Negative for injury, pm1 pain, and swelling, Cardiovascular: Negative for chest pain, palpitations, and edema, Respiratory: Negative for shortness of breath, cough, wheezing, and pleuritic chest pain. 13:56 : Negative for injury, bleeding, discharge, and swelling, MS/Extremity: Negative for injury and deformity, Skin: Negative for injury, rash, and discoloration, Neuro: Negative for headache, weakness, numbness, tingling, and seizure. 13:56 Abdomen/GI: Positive for abdominal pain, of the epigastric area, Negative for nausea, vomiting, and diarrhea, constipation. 13:56 Back: Positive for of the right mid back. Exam: 13:56 Constitutional: This is a well developed, well nourished patient who is awake, alert, pm1 and in no acute distress. Head/Face: Normocephalic, atraumatic. Neck: Trachea midline, no thyromegaly or masses palpated, and no cervical lymphadenopathy. Supple, full range of motion without nuchal rigidity, or vertebral point tenderness. No Meningismus. Chest/axilla: Normal chest wall appearance and motion. Nontender with no deformity. No lesions are appreciated. Cardiovascular: Regular rate and rhythm with a normal S1 and S2. No gallops, murmurs, or rubs. Normal PMI, no JVD. No pulse deficits. Respiratory: Lungs have equal breath sounds bilaterally, clear to auscultation and percussion. No rales, rhonchi or wheezes noted. No increased work of breathing, no retractions or nasal flaring. 13:56 Skin: Warm, dry with normal turgor. Normal color with no rashes, no lesions, and no evidence of cellulitis. MS/ Extremity: Pulses equal, no cyanosis. Neurovascular intact. Full, normal range of motion. 13:56 Abdomen/GI: Inspection: abdomen appears normal, Bowel sounds: normal, Palpation: moderate abdominal tenderness, in the epigastric area, mass, is not appreciated, rebound tenderness, is not appreciated. 13:56 Back: pain, that is moderate, of the right mid back, normal spinal alignment noted, vertebral tenderness, is not appreciated. 13:56 Neuro: Orientation: is normal, Motor: is normal, moves all fours. Vital Signs: 13:35 BP 138 / 65; Pulse 94; Resp 16; Temp 98.3; Pulse Ox 97% on R/A; Weight 77.11 kg; Height hb 5 ft. 4 in. (162.56 cm); Pain 10/10; 14:35 BP 128 / 51; Pulse 94; Resp 17; Pulse Ox 95% on R/A; rb1 15:35 BP 127 / 63; Pulse 95; Resp 18; Pulse Ox 97% on R/A; rb1 13:35 Body Mass Index 29.18 (77.11 kg, 162.56 cm) hb MDM: 13:50 Patient medically screened. pm1 15:52 Data reviewed: vital signs. Data interpreted: Pulse oximetry: on room air is 95 %. pm1 Interpretation: normal. Counseling: I had a detailed discussion with the patient and/or guardian regarding: the historical points, exam findings, and any diagnostic results supporting the discharge/admit diagnosis, lab results, radiology results, the need for outpatient follow up, to return to the emergency department if symptoms worsen or persist or if there are any questions or concerns that arise at home. 08/07 13:56 Order name: Basic Metabolic Panel; Complete Time: 15:16 pm1 08/07 13:56 Order name: CBC with Diff; Complete Time: 15:16 pm1 08/07 13:56 Order name: Creatinine for Radiology; Complete Time: 15:16 pm1 08/07 13:56 Order name: Hepatic Function; Complete Time: 15:16 pm1 08/07 13:56 Order name: Lipase; Complete Time: 15:16 pm1 08/07 14:22 Order name: Troponin (emerg Dept Use Only); Complete Time: 15:16 pm1 08/07 13:56 Order name: IV Saline Lock; Complete Time: 14:37 pm1 08/07 13:56 Order name: Labs collected and sent; Complete Time: 14:37 pm1 08/07 13:56 Order name: CT Abd/Pelvis - IV Contrast Only; Complete Time: 15:41 pm1 Administered Medications: 14:25 Drug: Zofran 4 mg Route: IVP; Site: right antecubital; rb1 14:40 Follow up: Response: No adverse reaction rb1 14:25 Drug: morphine 4 mg Route: IVP; Site: right antecubital; rb1 14:40 Follow up: Response: No adverse reaction; Pain is decreased rb1 15:38 Drug: morphine 4 mg Route: IVP; Site: right antecubital; rb1 16:00 Follow up: Response: No adverse reaction; Pain is decreased rb1 Disposition: 17:35 Co-signature as Attending Physician, Roberto Alejo MD. rn Disposition: 08/07/19 15:53 Discharged to Home. Impression: Unspecified abdominal pain. - Condition is Stable. - Discharge Instructions: Abdominal Pain, Adult. - Prescriptions for Bentyl 20 mg Oral Tablet - take 1 tablet by ORAL route every 6 hours As needed; 20 tablet. Zofran 4 mg Oral Tablet - take 1 tablet by ORAL route every 12 hours As needed; 20 tablet. Tramadol 50 mg Oral Tablet - take 1 tablet by ORAL route every 8 hours as needed; 12 tablet. - Medication Reconciliation Form, Thank You Letter, Antibiotic Education, Prescription Opioid Use form. - Follow up: Emergency Department; When: As needed; Reason: Worsening of condition. Follow up: Private Physician; When: 2 - 3 days; Reason: Recheck today's complaints, Continuance of care, Re-evaluation by your physician. - Problem is new. - Symptoms have improved. Signatures: Dispatcher [employer] EDMS Roberto Alejo MD MD rn Rae Boggs, RN RN rb1 Robin Moise NP LICENSED APPRAISER pm1 Taryn Escobar RN RN Corrections: (The following items were deleted from the chart) 16:17 15:53 08/07/2019 15:53 Discharged to Home. Impression: Unspecified abdominal pain. rb1 Condition is Stable. Forms are Medication Reconciliation Form, Thank You Letter, Antibiotic Education, Prescription Opioid Use. Follow up: Emergency Department; When: As needed; Reason: Worsening of condition. Follow up: Private Physician; When: 2 - 3 days; Reason: Recheck today's complaints, Continuance of care, Re-evaluation by your physician. Problem is new. Symptoms have improved. pm1
[2019-08-07 16:23] VITALS: BP 127/63; O2SAT 97
--- NOTE | 2019-08-09 09:22 | EKG ---
Test Date: 2019-08-07 Test Time: 13:59:41 Windows Phone Developer: HELIO MEASUREMENT RESULTS: Intervals: Rate: 92 WV: 184 QRSD: 80 QT: 320 QTc: 395 [place]: P: 71 WV: 184 QRS: 71 T: 21 INTERPRETIVE STATEMENTS: Normal sinus rhythm Septal infarct, age undetermined Abnormal ECG Compared to ECG 01/19/2019 10:45:09 Myocardial infarct finding now present Electronically Signed On 08-09-19 09:21:23 [employer]AND [employer] SUR[employer] WORKER by Kike Alvarez
== END 2019-08-07 16:17 | disposition home or self-care (01) ==
LOC: ER 13:36
DX: R10.13 Epigastric pain (principal)
CPT/HCPCS: 93005; 85025; 80048; 36415; 80076; 84484; 83690; 74177; 96375; 96374; 99284; Q9967; J2405

== ENCOUNTER 2019-08-30 13:10 | Emergency (ER) | payer OTHER ==
--- OUTSIDE RECORDS SUMMARY | 2019-08-30 13:15 | XMS REPORT ---
:1970 Author Organization [facility] Address [address] [place] [address] Dr. Chang [address] [place] [id number] Care Team Providers Name Role Phone LIZZETTE VELÁSQUEZ Unavailable Unavailable Problems This patient has no known problems. Allergies, Adverse Reactions, Alerts This patient has no known allergies or adverse reactions. Medications This patient has no known medications. Results Test Description Test Time Test Comments Text Results Atomic Results Result Comments MM, STEREOTACTIC 2017-05-14 Reason for Addendum BeginsMRN#: BIOPSY, BREAST, 15:59:00 Exam:->calcification [id number]: LEFT 05/14/2017 Lizzette Velásquez M.D. 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 Addendum EndsMRN#: [id number] - MM, STEREOTACTIC BIOPSY, BREAST, LEFTSTEREOTACTIC GUIDED [...] correct location, five specimens were obtained using mylearnadfriend device. A clip was inserted into the [...] the calcifications. Lizzette Velásquez M.D. pth/penrad:05/09/2017 11:07:57 Glass Belt Sander: Felicia Rizzo RT(R)(M), Critical access hospital?[facility] [id number] UE EXAM 2017-05-12 Surgical Pathology Report 12:48:00 Case: [id number] Authorizing Provider: Lizzette Velásquez MD Collected: 05/09/2017 1110 Ordering Location: [facility] Received: 05/09/2017 1312 Pathologist: Jackie Maradiaga MD Specimen: Breast, Left, LEFT MIDDLE 12 BREAST CALCIFICATION BREAST, LEFT, MIDDLE 12 O'CLOCK, CALCIFICATIONS, STEREOTACTIC CORE NEEDLE BIOPSY: - HYALINIZED FIBROADENOMA - COLUMNAR CELL HYPERPLASIA - COLUMNAR CELL CHANGES - MICROCALCIFICATIONS, COARSE, ASSOCIATED WITH FIBROADENOMA Signing Pathologist Direct Phone Line: [phone] signed by Jackie Maradiaga MD on 05/12/2017 at 12:48 PMIn the sections examined, no atypical hyperplasia or carcinoma is identified.[id number] lesion Left middle 12 o'clock breast calcifications The specimen is received in a formalin-filled container labeled with the patient's information and labeled "left middle 12 o'clock breast calcifications" and consists of multiple yellow-white breast core biopsies ranging in length from 0.6 to 2.5 cm.Ink code: Black.The specimen is submitted entirely in A1 and A2. CG/ewPerformed.[facility], Department of Pathology, [address] [place] [address], [place] [address], MM, DIGITAL, 2017-05-09 Left breast #[id number] - UNILATERAL, 11:07:00 calcifications MM, DIGITAL, UNILATERAL, [...] pathology results. Lizzette Velásquez M.D. pth/:05/09/2017 11:07:15 Glass Belt Sander: Felicia IRVIN (R)), Critical access hospital?[facility] Mammogram BI-RADS: Post-procedure mammogram for marker placement [id number] [place], 2017-05-09 Reason for exam:->Left #[id number] - SPECIMEN, 11:06:00 breast calcifications MM, MAMMO, SPECIMEN, RADIOGRAPH, LEFT RADIOGRAPH, LEFTSPECIMEN LEFT BREAST: 05/09/2017Five stereotactic guided biopsy specimens were imaged for the area of calcifications located in the left breast at 12 o'clock middle depth. IMPRESSION: SPECIMENThe imaged specimens includes the calcifications. Lizzette Velásquez M.D. pth/:05/09/2017 11:06:40 Glass Belt Sander: Felicia SCHNEIDER)(Phil), Critical access hospital?[facility] [id number]
--- OUTSIDE RECORDS SUMMARY | 2019-08-30 13:15 | XMS REPORT ---
[...] End Status Dosage System Date Date Tre [facility] 22309578314 100 UNIT/ML Active 10 units in FlexTouch Subcutaneous pm titrate daily up 2 units every 3 days until fbg less 100 (max of 30 units daily) Basaglar [facility] 19665178109 100 UNIT/ML Apr 28, Active 22 units KwikPen Subcutaneous 2019 daily and once daily titrate up 2 units every 2 days until FBG less 120 max of 50 units daily Duloxetine HCl ND 62628136283 30 MG Orally Active 1 capsule Once a day Metformin HCl ND 84008509720 500 MG Orally Active 2 tablet twice a day with a meal Glimepiride ND 99653569570 4 MG Orally Active 1 tablet Once a day with breakfast or the first main meal of the day FreeStyle Tay [facility] 57799767404 - Active USE 14 Day Sensor DIRECTED EVERY 14 DAYS Gabapentin ND 91383724682 100 MG Orally Active 1 capsule three times a day Freeyle Tay [facility] 66847149888 - daily Active as directed 14 Day [place] Fluticasone [facility] 58594092097 50 MCG/ACT Apr 16, Active 1 spray [...]
--- OUTSIDE RECORDS SUMMARY | 2019-08-30 13:15 | XMS REPORT ---
[...] End Status Dosage System Date Date Kendy [facility] 32522956492 100 UNIT/ML Apr 28, Active 22 units KwikPen Subcutaneous 2019 daily and once daily titrate up 2 units every 2 days until FBG less 120 max of 50 units daily Results No Known Results Summary Purpose eClinicalWorks Submission
--- OUTSIDE RECORDS SUMMARY | 2019-08-30 13:16 | XMS REPORT ---
[...] Status Dosage System Date Date Diclofenac ND 28992019178 75 MG Orally May 24, Jun 03, Active 1 tablet Sodium Twice a day prn 2018 2018 with food or pain milk Duloxetine HCl ND 04860608889 30 MG Orally Active 1 capsule Once a day Fluticasone ND 89409594706 50 MCG/ACT Apr 16, Active 1 spray in Propionate Nasally Once a 2019 each nostril day Metformin HCl ND 08842222195 500 MG Orally Active 2 tablet twice a day with a meal Tresiba ND 73002088764 100 UNIT/ML Active 10 units in FlexTouch Subcutaneous pm titrate daily up 2 units every 3 days until fbg less 100 (max of 30 units daily) FreeStyle Tay ND 34449700196 - Active USE 14 Day Sensor DIRECTED EVERY 14 DAYS Basaglar ND 20442292995 100 UNIT/ML Apr 28, Active 22 units KwikPen Subcutaneous 2019 daily and once daily titrate up 2 units every 2 days until FBG less 120 max of 50 units daily Gabapentin ND 92373922745 300 MG Orally Active 1 capsule three times a day Glimepiride ND 24006658864 4 MG Orally Active 1 tablet Once a day with breakfast or the first main meal of the day FreeStyle Tay [facility] 31485448322 - daily Active as directed 14 Day [place] Results No Known Results Summary Purpose eClinicalWorks Submission
--- OUTSIDE RECORDS SUMMARY | 2019-08-30 13:16 | XMS REPORT ---
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
--- OUTSIDE RECORDS SUMMARY | 2019-08-30 13:16 | XMS REPORT ---
[...] Date Status Dosage System Date Sertraline HCl [facility] 48957732794 50 MG Orally Jun 22, Active 1 tablet Once a day 2018 Results No Known Results Summary Purpose eClinicalWorks Submission
--- OUTSIDE RECORDS SUMMARY | 2019-08-30 13:16 | XMS REPORT ---
[...] Dosage System Date Date Duloxetine HCl ND 48476659257 30 MG Orally Active 1 capsule Once a day Basaglar ND 99519343596 100 UNIT/ML Apr 28, Active 22 units KwikPen Subcutaneous 2018 daily and once daily titrate up 2 units every 2 days until FBG less 120 max of 50 units daily FreeStyle Tay ND 68765895377 - daily Active as directed 14 Day [place] NovoFine Plus ND 41147095114 32G X 4 MM SC Jul 05, Active as directed once daily 2019 Metformin HCl ND 32371191130 500 MG Orally Active 2 tablet twice a day with a meal Fluticasone ND 81931196912 50 MCG/ACT Apr 16, Active 1 spray in Propionate Nasally Once a 2019 each nostril day Tresiba ND 83387537036 100 UNIT/ML Active 20 units in FlexTouch Subcutaneous pm titrate daily up 2 units every 3 days until fbg less 100 (max of 30 units daily) FreeStyle Tay [facility] 15957946099 - Active USE 14 Day Sensor DIRECTED EVERY 14 DAYS Sertraline HCl ND 56881279821 100 MG Orally Jun 22, Active 1 tablet Once a day 2018 Cefdinir ND 62615749394 300 MG Orally Jul 05, Jul 15, Active 1 capsule every 12 hours [address] [facility] 01215332690 300 MG Orally Active 1 capsule three times a day Glimepiride [facility] 32932192974 4 MG Orally Active 1 tablet Once a day with breakfast or the first main meal of the day Results No Known Results Summary Purpose eClinicalWorks Submission
--- OUTSIDE RECORDS SUMMARY | 2019-08-30 13:16 | XMS REPORT ---
[...] Start End Date Status Dosage System Date [facility] 55499400622 - Active USE Tay 14 Day DIRECTED Sensor EVERY 14 DAYS Results No Known Results Summary Purpose eClinicalWorks Submission
[2019-08-30 15:27] LABS: Urine Blood NEGATIVE (NEG); Urine Glucose NEGATIVE (NEG); Urine Protein TRACE (NEG)
[2019-08-30 16:00] LABS: Absolute Lymphocytes (CBC) 1.4 K/uL (0.7-4.9); Basophils % 0.6 % (0-1.3); Hematocrit 36.8 % (36.0-45.0); Lymphocytes % 14.6 % (15.3-44.8); MPV 8.9 fL (7.6-11.3); RBC Red Blood Cell Count 4.41 M/uL (3.86-4.86)
[2019-08-30] MEDS ORDERED: ONDANSETRON 4 MG/2 ML VIAL ONE (16:00)
[2019-08-30] MEDS ORDERED: MORPHINE 4 MG/ML SYR ONE (16:00)
[2019-08-30 16:17] LABS: Albumin 3.5 g/dL (3.4-5.0); Bilirubin Direct 0.2 mg/dL (0-0.2); Bilirubin Total 0.4 mg/dL (0.2-1.0); Potassium 3.5 mmol/L (3.5-5.1); Protein, Total 7.6 g/dL (6.4-8.2)
--- NOTE | 2019-08-30 17:04 | RAD REPORT ---
EXAM DESCRIPTION: CT - Abdomen Pelvis W Contrast - 08/30/2019 4:35 pm CLINICAL HISTORY: epigastric abdominal pain COMPARISON: Abdomen Pelvis W Contrast dated 08/07/2019 TECHNIQUE: Biphasic, helical CT imaging of the abdomen and pelvis was performed following 100 ml non -ionic IV contrast. No oral contrast administered. All CT scans are performed using dose optimization technique as appropriate and may include automated exposure control or mA/KV adjustment according to patient size. FINDINGS: No suspicious findings in the lung bases. Liver shows a diffuse fatty infiltration pattern with no focal liver lesion. Spleen and pancreas show no suspicious findings. Cholecystectomy clips are present with no biliary tree dilatation. Symmetric renal function is seen with no hydronephrosis or suspicious renal mass. No pyelonephritis o r acute parenchymal process. No bladder abnormalities. No adrenal abnormalities. No dilated bowel loops or bowel wall thickening. Appendix is normal. No free air, free fluid or infla mmatory stranding. No hernia, mass or bulky lymphadenopathy. No suspicious bony findings. IMPRESSION: Gallbladder is absent. No pancreatic or biliary tree abnormality seen. No gastric or duodenal wall thickening or edema. No abnormality to explain epigastric/ right upper qu adrant pain symptoms. Diffuse fatty infiltration of the liver again noted.
[2019-08-30] MEDS ORDERED: LIDOCAINE VISCOUS 2% SOLN 15 ML UDC ONE (17:38)
[2019-08-30] MEDS ORDERED: MAGNE/ALUM HYDROXD 30 ML UCUP ONE (17:38)
--- NOTE | 2019-08-30 17:48 | ER ---
Nurse's Notes [facility] Name: Dena Nance Age: 49 yrs Sex: Female : 1970 Arrival Date: 08/30/2019 Time: 13:23 Bed 13 Private MD: Diagnosis: Epigastric pain Presentation: 08/29 13:42 Chief complaint: Patient states: Epigastric pain radiating to the R side since last ca1 night. Reports nausea. Denies vomiting, diarrhea and fever. Coronavirus screen: The patient has NOT traveled to [place] in the past 14 days. The patient has NOT had contact with known and/or suspected case of Coronavirus. Ebola Screen: Patient negative for fever greater than or equal to 101.5 degrees Fahrenheit, and additional compatible Ebola Virus Disease symptoms Patient denies exposure to infectious person. Patient denies travel to an Ebola-affected area in the 21 days before illness onset. No symptoms or risks identified at this time. Initial Sepsis Screen: Does the patient meet any 2 criteria? No. Patient's initial sepsis screen is negative. Does the patient have a suspected source of infection? No. Patient's initial sepsis screen is negative. Risk Assessment: Do you want to hurt yourself or someone else? Patient reports no desire to harm self or others. Onset of symptoms was August 29, 2019. 13:42 Method Of Arrival: Ambulatory ca1 13:42 Acuity: MARIANA 3 ca1 Triage Assessment: 13:46 General: Appears in no apparent distress. comfortable, Behavior is calm, cooperative, ca1 appropriate for age. Pain: Complains of pain in epigastric area and right upper quadrant. GI: Reports nausea. 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 - Social history:: Smoking status: Patient denies any tobacco usage or history of. Screenin:30 Abuse screen: Denies threats or abuse. Nutritional screening: No deficits noted. em Tuberculosis screening: No symptoms or risk factors identified. Fall Risk None identified. Assessment: 15:30 General: Appears in no apparent distress. comfortable, Behavior is calm, cooperative, em Denies fever. Pain: Complains of pain in epigastric area Pain currently is 6 out of 10 on a pain scale. Neuro: Level of Consciousness is awake, alert, obeys commands, Oriented to person, place, time, situation, Appropriate for age. Cardiovascular: Capillary refill < 3 seconds Patient's skin is warm and dry. Respiratory: Airway is patent Respiratory effort is even, unlabored, Respiratory pattern is regular, symmetrical. GI: Abdomen is flat, Bowel sounds present X 4 quads. Abd is soft X 4 quads Abdomen is tender to palpation in right upper quadrant and left upper quadrant Reports nausea, Patient currently denies diarrhea, vomiting. Derm: Skin is intact, is healthy with good turgor, Skin is pink, warm \T\ dry. Musculoskeletal: Capillary refill < 3 seconds, Range of motion: intact in all extremities. 17:30 Reassessment: Patient appears in no apparent distress at this time. Patient and/or em family updated on plan of care and expected duration. Pain level reassessed. Patient is alert, oriented x 3, equal unlabored respirations, skin warm/dry/pink. 18:06 Reassessment: Patient appears in no apparent distress at this time. Patient and/or em family updated on plan of care and expected duration. Pain level reassessed. Patient is alert, oriented x 3, equal unlabored respirations, skin warm/dry/pink. Patient states feeling better. Patient states symptoms have improved. Vital Signs: 13:42 BP 130 / 58; Pulse 90; Resp 17 S; Temp 97.7(O); Pulse Ox 96% on R/A; Weight 72.57 kg ca1 (R); Height 5 ft. 4 in. (162.56 cm) (R); 16:00 BP 122 / 90; Pulse 80; Resp 18; Pulse Ox 100% on R/A; Pain 6/10; em 18:00 BP 130 / 69; Pulse 88; Resp 20; Pulse Ox 99% on R/A; Pain 3/10; em 13:42 Body Mass Index 27.46 (72.57 kg, 162.56 cm) ca1 ED Course: 13:23 Patient arrived in ED. mr 13:44 Triage completed. ca1 13:46 Arm band placed on right wrist. ca1 15:17 Anthony Johnson PA is PHCP. [facility] 15:17 Ricardo Araiza MD is Attending Physician. jmm 15:36 Edison Carvajal, SHADE is Primary Nurse. em 16:06 No provider procedures requiring assistance completed. Inserted saline lock: 20 gauge mg2 in right antecubital area, using aseptic technique. Blood collected. 16:36 CT Abd/Pelvis - IV Contrast Only In Process Unspecified. EDMS 17:47 Essence Barber MD is Referral Physician. [facility] 18:06 Patient has correct armband on for positive identification. Placed in gown. Bed in low em position. Call light in reach. Side rails up X2. Adult w/ patient. Pulse ox on. NIBP on. 18:10 IV discontinued, intact, bleeding controlled, No redness/swelling at site. Pressure em dressing applied. Administered Medications: 16:05 Drug: Zofran (Ondansetron) 4 mg Route: IVP; Site: right antecubital; mg2 17:00 Follow up: Response: No adverse reaction em 16:06 Drug: morphine 4 mg Route: IVP; Site: right antecubital; mg2 17:00 Follow up: Response: No adverse reaction; Pain is unchanged, physician notified em 17:36 Drug: GI Cocktail without - (Maalox Suspension 30 ml, Lidocaine Liquid 2 % 15 em ml) Route: PO; 18:08 Follow up: Response: No adverse reaction; Marked relief of symptoms; Pain is decreased em Outcome: 17:47 Discharge ordered by . jm 18:10 Discharged to home ambulatory. em 18:10 Condition: stable 18:10 Discharge instructions given to patient, Instructed on discharge instructions, follow up and referral plans. medication usage, Demonstrated understanding of instructions, follow-up care, medications, Prescriptions given X 2. 18:13 Patient left the ED. em Signatures: Dispatcher [employer] EDAL Anthony Johnson PA PA [facility] Param Deonna mr Edison Carvajal, SHADE RN em Idris Rogers RN RN mg2 Acob, Windy, RN RN ca1
--- NOTE | 2019-08-30 17:48 | EDPHYS ---
Physician Documentation [facility] Name: Dena Nance Age: 49 yrs Sex: Female : 1970 Arrival Date: 08/30/2019 Time: 13:23 Bed 13 Private MD: ED Physician Ricardo Araiza HPI: 08/29 15:36 This 49 yrs old Female presents to ER via Ambulatory with complaints of jmm Abdominal Pain. 15:36 The patient presents with abdominal pain. Onset: The symptoms/episode began/occurred jmm last night. The symptoms do not radiate. Associated signs and symptoms: Pertinent positives: diarrhea, Pertinent negatives: nausea and vomiting. The symptoms are described as achy. This is a 49 year old female with a history of DM, diverticulitis, pancreatitis that presents to the ED with complaints of epigastric pain beginning last night with episodes of diarrhea. Patient denies fever. Similar symptoms with a diagnosis of gastric ulcer. . 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 - Social history:: Smoking status: Patient denies any tobacco usage or history of. ROS: 15:36 Constitutional: Negative for fever, chills, and weight loss, Cardiovascular: Negative jmm for chest pain, palpitations, and edema, Respiratory: Negative for shortness of breath, cough, wheezing, and pleuritic chest pain. 15:36 Abdomen/GI: Positive for abdominal pain, diarrhea. 15:36 All other systems are negative. Exam: 15:36 Constitutional: This is a well developed, well nourished patient who is awake, alert, jmm and in no acute distress. Head/Face: atraumatic. Eyes: EOMI, no conjunctival erythema appreciated ENT: Moist Mucus Membranes Neck: Trachea midline, Supple Chest/axilla: Normal chest wall appearance and motion. Cardiovascular: Regular rate and rhythm. No edema appreciated Respiratory: Normal respirations, no respiratory distress appreciated 15:36 Abdomen/GI: Inspection: abdomen appears normal, Bowel sounds: normal, Palpation: soft, mild abdominal tenderness, in the left upper quadrant. 15:36 Back: ROM is normal. 15:36 Musculoskeletal/extremity: ROM: intact in all extremities. 15:36 Skin: Appearance: Color: normal in color. 15:36 Neuro: Orientation: is normal, Mentation: is normal, Memory: is normal. 15:36 Psych: Behavior/mood is pleasant, cooperative. Vital Signs: 13:42 BP 130 / 58; Pulse 90; Resp 17 S; Temp 97.7(O); Pulse Ox 96% on R/A; Weight 72.57 kg ca1 (R); Height 5 ft. 4 in. (162.56 cm) (R); 16:00 BP 122 / 90; Pulse 80; Resp 18; Pulse Ox 100% on R/A; Pain 6/10; em 18:00 BP 130 / 69; Pulse 88; Resp 20; Pulse Ox 99% on R/A; Pain 3/10; em 13:42 Body Mass Index 27.46 (72.57 kg, 162.56 cm) ca1 MDM: 15:17 Patient medically screened. tavo 17:46 Data reviewed: vital signs, nurses notes. Counseling: I had a detailed discussion with mal the patient and/or guardian regarding: the historical points, exam findings, and any diagnostic results supporting the discharge/admit diagnosis, lab results, radiology results, the need for outpatient follow up, to return to the emergency department if symptoms worsen or persist or if there are any questions or concerns that arise at home. ED course: Patient is alert and non toxic in appearance in the ED. Imaging studies negative. Patient advised to follow up with GI for further evaluation. patient is otherwise given strict return precautions. patient understood and agrees with the plan of care. . 08/29 15:18 Order name: Urine Dipstick--Ancillary (enter results); Complete Time: 15:28 bd 08/29 15:28 Order name: Basic Metabolic Panel; Complete Time: 16:27 [facility] 08/29 15:28 Order name: CBC with Diff; Complete Time: 16:27 [facility] 08/29 15:28 Order name: Creatinine for Radiology; Complete Time: 16:27 [facility] 08/29 15:28 Order name: Hepatic Function; Complete Time: 16:27 [facility] 08/29 15:28 Order name: Lipase; Complete Time: 16:27 [facility] 08/29 15:28 Order name: IV Saline Lock; Complete Time: 16:06 [facility] 08/29 15:28 Order name: Labs collected and sent; Complete Time: 16:06 [facility] 08/29 15:28 Order name: Urine Test (obtain specimen); Complete Time: 16:06 [facility] 08/29 15:45 Order name: CT Abd/Pelvis - IV Contrast Only; Complete Time: 17:21 [facility] Administered Medications: 16:05 Drug: Zofran (Ondansetron) 4 mg Route: IVP; Site: right antecubital; mg2 17:00 Follow up: Response: No adverse reaction em 16:06 Drug: morphine 4 mg Route: IVP; Site: right antecubital; mg2 17:00 Follow up: Response: No adverse reaction; Pain is unchanged, physician notified em 17:36 Drug: GI Cocktail without - (Maalox Suspension 30 ml, Lidocaine Liquid 2 % 15 em ml) Route: PO; 18:08 Follow up: Response: No adverse reaction; Marked relief of symptoms; Pain is decreased em Disposition: 08/30 07:25 Co-signature as Attending Physician, Ricardo Araiza MD I agree with the assessment and tavo plan of care. Disposition: 08/30/19 17:47 Discharged to Home. Impression: Epigastric pain. - Condition is Stable. - Discharge Instructions: Abdominal Pain, Adult. - Prescriptions for Bentyl 20 mg Oral Tablet - take 2 tablet by ORAL route every 6 hours As needed; 40 tablet. Carafate 1 gram Oral Tablet - take 1 tablet by ORAL route 4 times per day take on an empty stomach, beginning on waking and last dose at bedtime; 100 tablet. - Medication Reconciliation Form, Thank You Letter, Antibiotic Education, Prescription Opioid Use form. - Follow up: Essence Barber MD; When: 2 - 3 days; Reason: Recheck today's complaints, Continuance of care, Re-evaluation by your physician. Signatures: Dispatcher [employer] Ricardo Guy MD MD cha Mickail, Joel, PA PA jmm Carvajal, Edison, RN RN em Idris Rogers, RN RN [facility] Windy Narvaez RN RN ca1 Corrections: (The following items were deleted from the chart) 08/29 18:13 17:47 08/30/2019 17:47 Discharged to Home. Impression: Epigastric pain. Condition is em Stable. Forms are Medication Reconciliation Form, Thank You Letter, Antibiotic Education, Prescription Opioid Use. Follow up: Essence Barber; When: 2 - 3 days; Reason: Recheck today's complaints, Continuance of care, Re-evaluation by your physician. mal
[2019-08-30 19:48] VITALS: TEMP 97.7
[2019-08-30 19:51] VITALS: BP 130/69; O2SAT 99
== END 2019-08-30 18:13 | disposition home or self-care (01) ==
LOC: ER 13:10
DX: R10.13 Epigastric pain (principal); E11.9 Type 2 diabetes mellitus without complications; Z79.4 Long term (current) use of insulin
CPT/HCPCS: 85025; 80048; 36415; 80076; 81003; 83690; 74177; 96375; 96374; 99284; Q9967; J2405

== ENCOUNTER 2019-09-23 10:47 | Emergency (ER) | payer OTHER ==
--- OUTSIDE RECORDS SUMMARY | 2019-09-23 10:49 | XMS REPORT ---
:1970 [facility] Address [address] [place] [address] Dr. Chang [address] [place] [address] Care Team Providers Name Role Phone LIZZETTE VELÁSQUEZ Unavailable Unavailable Problems This patient has no known problems. Allergies, Adverse Reactions, Alerts This patient has no known allergies or adverse reactions. Medications This patient has no known medications. Results Test Description Test Time Test Comments Text Results Atomic Results Result Comments MM, STEREOTACTIC 2017-05-14 Reason for Addendum BeginsMRN#: BIOPSY, BREAST, 15:59:00 Exam:->calcification [id number]: LEFT 05/14/2017 Lizzette Velásquez M.D. 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 Addendum EndsMRN#: [id number] - MM, STEREOTACTIC BIOPSY, BREAST, LEFTSTEREOTACTIC GUIDED [...] correct location, five specimens were obtained using Abakus device. A clip was inserted into the [...] the calcifications. Lizzette Velásquez M.D. pth/penrad:05/09/2017 11:07:57 Detention Deputy: Felicia Rizzo RT(R)(M), [facility] [id number] UE EXAM 2017-05-12 Surgical Pathology Report 12:48:00 Case: [id number] Authorizing Provider: Lizzette Velásquez MD Collected: 05/09/2017 1110 Ordering Location: [facility] Received: 05/09/2017 1312 Pathologist: Jackie Maradiaga MD Specimen: Breast, Left, LEFT MIDDLE 12 BREAST CALCIFICATION BREAST, LEFT, MIDDLE 12 O'CLOCK, CALCIFICATIONS, STEREOTACTIC CORE NEEDLE BIOPSY: - HYALINIZED FIBROADENOMA - COLUMNAR CELL HYPERPLASIA - COLUMNAR CELL CHANGES - MICROCALCIFICATIONS, COARSE, ASSOCIATED WITH FIBROADENOMA Signing Pathologist Direct Phone Line: [phone] signed by Jackie Maradiaga MD on 05/12/2017 at 12:48 PMIn the sections examined, no atypical hyperplasia or carcinoma is identified.[id number] lesion Left middle 12 o'clock breast calcifications The specimen is received in a formalin-filled container labeled with the patient's information and labeled "left middle 12 o'clock breast calcifications" and consists of multiple yellow-white breast core biopsies ranging in length from 0.6 to 2.5 cm.Ink code: Black.The specimen is submitted entirely in A1 and A2. CG/ewPerformed.[facility], Department of Pathology, [address] [place] [address], [place] [address], MM, DIGITAL, 2017-05-09 Left breast #[id number] - UNILATERAL, 11:07:00 calcifications MM, DIGITAL, UNILATERAL, [...] pathology results. Lizzette Velásquez M.D. pth/:05/09/2017 11:07:15 Detention Deputy: Felicia IRVIN (R)), [facility] Mammogram BI-RADS: Post-procedure mammogram for marker placement [id number] CAL[place], 2017-05-09 Reason for exam:->Left #[id number] - SPECIMEN, 11:06:00 breast calcifications MM, MAMMO, SPECIMEN, RADIOGRAPH, LEFT RADIOGRAPH, LEFTSPECIMEN LEFT BREAST: 05/09/2017Five stereotactic guided biopsy specimens were imaged for the area of calcifications located in the left breast at 12 o'clock middle depth. IMPRESSION: SPECIMENThe imaged specimens includes the calcifications. Lizzette Velásquez M.D. pth/:05/09/2017 11:06:40 Detention Deputy: Felicia SCHNEIDER)(Phil), [facility] [id number]
--- OUTSIDE RECORDS SUMMARY | 2019-09-23 10:50 | XMS REPORT ---
[...] Status Dosage System Date Date Kendy [facility] 41373864459 100 UNIT/ML Apr 28, Active 22 units KwikPen Subcutaneous 2019 daily and once daily titrate up 2 units every 2 days until FBG less 120 max of 50 units daily Results No Known Results Summary Purpose eClinicalWorks Submission
--- OUTSIDE RECORDS SUMMARY | 2019-09-23 10:50 | XMS REPORT ---
[...] Active Problem Seasonal allergies J30.2 Active Medications Medication Code Code Instructions Start End Status Dosage System Date Date Levemir [facility] 62299648322 100 UNIT/ML August Active 22 units FlexTouch Subcutaneous 2019 daily and daily titrate up 2 units every 2 days until FBG less 120 max of 50 units daily Basaglar [facility] 35439290973 100 UNIT/ML Apr 28 22 units KwikPen Subcutaneous 2018 daily and once daily titrate up 2 units every 2 days until FBG less 120 max of 50 units daily Results No Known Results Summary Purpose eClinicalWorks Submission
--- OUTSIDE RECORDS SUMMARY | 2019-09-23 10:50 | XMS REPORT ---
[...] End Status Dosage System Date Date Tre [facility] 29007596668 100 UNIT/ML Active 10 units in FlexTouch Subcutaneous pm titrate daily up 2 units every 3 days until fbg less 100 (max of 30 units daily) Basaglar [facility] 31796070990 100 UNIT/ML Apr 28, Active 22 units KwikPen Subcutaneous 2019 daily and once daily titrate up 2 units every 2 days until FBG less 120 max of 50 units daily Duloxetine HCl ND 86679218998 30 MG Orally Active 1 capsule Once a day Metformin HCl ND 98684835003 500 MG Orally Active 2 tablet twice a day with a meal Glimepiride ND 67464502054 4 MG Orally Active 1 tablet Once a day with breakfast or the first main meal of the day FreeStyle Tay [facility] 56553952436 - Active USE 14 Day Sensor DIRECTED EVERY 14 DAYS Gabapentin ND 70785562170 100 MG Orally Active 1 capsule three times a day Freeyle Tay [facility] 61945489971 - daily Active as directed 14 Day [place] Fluticasone [facility] 15300036594 50 MCG/ACT Apr 16, Active 1 spray [...]
--- OUTSIDE RECORDS SUMMARY | 2019-09-23 10:50 | XMS REPORT ---
[...] Status Dosage System Date Date Diclofenac ND 75237996239 75 MG Orally May 24, Jun 03, Active 1 tablet Sodium Twice a day prn 2018 2018 with food or pain milk Duloxetine HCl ND 11953063429 30 MG Orally Active 1 capsule Once a day Fluticasone ND 62994852711 50 MCG/ACT Apr 16, Active 1 spray in Propionate Nasally Once a 2019 each nostril day Metformin HCl ND 93018084786 500 MG Orally Active 2 tablet twice a day with a meal Tresiba ND 10915310259 100 UNIT/ML Active 10 units in FlexTouch Subcutaneous pm titrate daily up 2 units every 3 days until fbg less 100 (max of 30 units daily) FreeStyle Tay ND 43117191070 - Active USE 14 Day Sensor DIRECTED EVERY 14 DAYS Basaglar ND 85448304984 100 UNIT/ML Apr 28, Active 22 units KwikPen Subcutaneous 2019 daily and once daily titrate up 2 units every 2 days until FBG less 120 max of 50 units daily Gabapentin ND 37265417162 300 MG Orally Active 1 capsule three times a day Glimepiride ND 91081073413 4 MG Orally Active 1 tablet Once a day with breakfast or the first main meal of the day FreeStyle Tay [facility] 03757560224 - daily Active as directed 14 Day [place] Results No Known Results Summary Purpose eClinicalWorks Submission
--- OUTSIDE RECORDS SUMMARY | 2019-09-23 10:50 | XMS REPORT ---
[...] Dosage System Date Date Duloxetine HCl ND 30663243262 30 MG Orally Active 1 capsule Once a day Basaglar ND 67976183366 100 UNIT/ML Apr 28, Active 22 units KwikPen Subcutaneous 2018 daily and once daily titrate up 2 units every 2 days until FBG less 120 max of 50 units daily FreeStyle Tay ND 59266922532 - daily Active as directed 14 Day [place] NovoFine Plus ND 05998055112 32G X 4 MM SC Jul 05, Active as directed once daily 2019 Metformin HCl ND 19690566217 500 MG Orally Active 2 tablet twice a day with a meal Fluticasone ND 98479768944 50 MCG/ACT Apr 16, Active 1 spray in Propionate Nasally Once a 2019 each nostril day Tresiba ND 70159791212 100 UNIT/ML Active 20 units in FlexTouch Subcutaneous pm titrate daily up 2 units every 3 days until fbg less 100 (max of 30 units daily) FreeStyle Tay [facility] 18934573572 - Active USE 14 Day Sensor DIRECTED EVERY 14 DAYS Sertraline HCl ND 65378909630 100 MG Orally Jun 22, Active 1 tablet Once a day 2018 Cefdinir ND 67899414177 300 MG Orally Jul 05, Jul 15, Active 1 capsule every 12 hours 2019 2019 Gabapentin [facility] 39056328717 300 MG Orally Active 1 capsule three times a day Glimepiride [facility] 52748390416 4 MG Orally Active 1 tablet Once a day with breakfast or the first main meal of the day Results No Known Results Summary Purpose eClinicalWorks Submission
--- OUTSIDE RECORDS SUMMARY | 2019-09-23 10:50 | XMS REPORT ---
[...] Status Dosage System Date Sertraline HCl [facility][NOTE 3] 74876987152 50 MG Orally Jun 22, Active 1 tablet Once a day 2018 Results No Known Results Summary Purpose eClinicalWorks Submission
--- OUTSIDE RECORDS SUMMARY | 2019-09-23 10:50 | XMS REPORT ---
[...] Start End Date Status Dosage System Date [facility] 04426120470 - Active USE Tay 14 Day DIRECTED Sensor EVERY 14 DAYS Results No Known Results Summary Purpose eClinicalWorks Submission
[2019-09-23 11:28] LABS: Absolute Lymphocytes (CBC) 1.7 K/uL (0.7-4.9); Basophils % 0.7 % (0-1.3); Hematocrit 35.8 % (36.0-45.0); Lymphocytes % 20.3 % (15.3-44.8); MPV 9.4 fL (7.6-11.3); RBC Red Blood Cell Count 4.33 M/uL (3.86-4.86)
[2019-09-23 11:33] LABS: Protime INR 1.02
--- NOTE | 2019-09-23 11:35 | EKG ---
Test Date: 2019-09-23 Test Time: 11:06:08 Veneer Stock Grader: BEST MEASUREMENT RESULTS: Intervals: Rate: 85 MT: 146 QRSD: 80 QT: 356 QTc: 423 [place]: P: 37 MT: 146 QRS: 66 T: 44 INTERPRETIVE STATEMENTS: Normal sinus rhythm Normal ECG Compared to ECG 08/07/2019 13:59:41 Myocardial infarct finding no longer present Electronically Signed On 09-23-19 11:34:30 CDT by Jeff Rapp
[2019-09-23 11:42] LABS: ALT/SGPT 36 U/L (12-78); AST/SGOT 35 U/L (15-37); Albumin 3.5 g/dL (3.4-5.0); Alkaline Phosphatase 96 U/L (45-117); BUN Blood Urea Nitrogen 13 mg/dL (7-18); Bicarbonate 26 mmol/L (21-32); Bilirubin Direct 0.1 mg/dL (0-0.2); Bilirubin Total 0.3 mg/dL (0.2-1.0); Glucose Level 192 mg/dL (74-106); Magnesium 1.9 mg/dL (1.8-2.4); NT PRO-BNP 129 pg/mL (<125); Potassium 3.7 mmol/L (3.5-5.1); Protein, Total 7.4 g/dL (6.4-8.2); Sodium Level 140 mmol/L (136-145); Troponin (Emerg Dept Use Only) < 0.02 ng/mL (0.0-0.045)
[2019-09-23] MEDS ORDERED: FENTANYL CITR 100 MCG/2 ML ONE (12:31)
--- NOTE | 2019-09-23 12:34 | RAD REPORT ---
EXAM DESCRIPTION: RAD - Chest Single View - 09/23/2019 12:09 pm CLINICAL HISTORY: CHEST PAIN COMPARISON: December 2018 TECHNIQUE: AP portable chest image was obtained 09/23/2019 12:09 pm . FINDINGS: Lungs are clear. Heart and vasculature are normal. No measurable pleural effusion and no p neumothorax. No acute bony abnormality seen. No acute aortic findings suspected. IMPRESSION: No acute cardiopulmonary process. No significant change from comparison.
--- NOTE | 2019-09-23 14:01 | ER ---
Nurse's Notes [facility] Name: Dena Nance Age: 49 yrs Sex: Female : 1970 Arrival Date: 09/23/2019 Time: 10:50 Bed 2 Private MD: Diagnosis: Chest pain, unspecified Presentation: 09/22 11:03 Chief complaint: Patient states: chest pain and SOB started about an hour ago. States, ca1 "felt like my heart is coming out of my body". Denies cough, but noticed coughing during triage, pt states, "it started just now". Denies fever. Coronavirus screen: Patient reports a cough. Patient reports shortness of breath or difficulty breathing. Patient denies measured and/or subjective temperature greater than 100.4F. Patient denies travel on a cruise ship or to a country the [facility] currently lists as an affected area. Patient denies contact with known and/or suspected case of COVID-19. Ebola Screen: Patient negative for fever greater than or equal to 101.5 degrees Fahrenheit, and additional compatible Ebola Virus Disease symptoms Patient denies exposure to infectious person. Patient denies travel to an Ebola-affected area in the 21 days before illness onset. No symptoms or risks identified at this time. Initial Sepsis Screen: Does the patient meet any 2 criteria? No. Patient's initial sepsis screen is negative. Does the patient have a suspected source of infection? No. Patient's initial sepsis screen is negative. Risk Assessment: Do you want to hurt yourself or someone else? Patient reports no desire to harm self or others. Onset of symptoms was September 23, 2019 at 10:00. 11:03 Method Of Arrival: Wheelchair ca1 11:03 Acuity: MARIANA 3 ca1 Triage Assessment: 11:05 General: Appears in no apparent distress. comfortable, Behavior is cooperative, bp appropriate for age, anxious. Pain: Complains of pain in mid-sternal area. EENT: No deficits noted. Neuro: No deficits noted. Cardiovascular: Rhythm is sinus rhythm. Respiratory: Reports shortness of breath Airway is patent Respiratory effort is even, unlabored, Respiratory pattern is regular, symmetrical. GI: No signs and/or symptoms were reported involving the gastrointestinal system. : No signs and/or symptoms were reported regarding the genitourinary system. Derm: No deficits noted. Musculoskeletal: No deficits noted. 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 - Social history:: Smoking status: Patient denies any tobacco usage or history of. Screenin:05 Abuse screen: Denies threats or abuse. Denies injuries from another. Nutritional bp screening: No deficits noted. Tuberculosis screening: No symptoms or risk factors identified. Fall Risk None identified. Assessment: 11:05 General: SEE TRIAGE NOTE. Pain: Pain does not radiate. Pain began 1 hour ago. bp Cardiovascular: Rhythm is sinus rhythm. 12:00 Reassessment: ALL CURRENT ORDERS IN PROCESS, VS STABLE ON MONITOR. NO CP AT THIS TIME. bp 13:32 Reassessment: REPEAT TROP IN PROCESS. VS STABLE ON MONITOR. bp Vital Signs: 11:03 BP 122 / 64; Pulse 90; Resp 19 S; Temp 98.1(TE); Pulse Ox 97% on R/A; Weight 72.57 kg ca1 (R); Height 5 ft. 4 in. (162.56 cm) (R); Pain 8/10; 12:30 BP 126 / 67; Pulse 89; Resp 18; Pulse Ox 100% on R/A; Pain 10/10; em 13:30 BP 118 / 67; Pulse 84; Resp 22; Pulse Ox 97% ; bp 14:33 BP 121 / 71; Pulse 85; Resp 17; Temp 98.1; Pulse Ox 98% ; bp 11:03 Body Mass Index 27.46 (72.57 kg, 162.56 cm) ca1 ED Course: 10:50 Patient arrived in ED. fj1 11:00 Francisco Hoksins MD is Attending Physician. kdr 11:01 Dawood Cartwright PA is PHCP. jr8 11:01 Ignacio Garcia, SHADE is Primary Nurse. bp 11:05 Patient has correct armband on for positive identification. Bed in low position. Call bp light in reach. Side rails up X2. arrt technologist on. Pulse ox on. NIBP on. 11:06 Triage completed. ca1 11:07 Arm band placed on right wrist. ca1 11:09 Inserted saline lock: 20 gauge in right forearm, using aseptic technique. Blood bp collected. Patient maintains SpO2 saturation greater than 95% on room air. 11:10 EKG done, by ED staff, reviewed by Dawood GUTIERREZ. em1 12:16 XRAY Chest (1 view) In Process Unspecified. EDMS 13:59 Jeff Rapp MD is Referral Physician. jr8 14:51 No provider procedures requiring assistance completed. IV discontinued, intact, iw bleeding controlled, No redness/swelling at site. Pressure dressing applied. Administered Medications: 12:31 Drug: fentaNYL (PF) 25 mcg Route: IVP; Site: right forearm; em 13:35 Follow up: Response: Pain is decreased bp Outcome: 14:00 Discharge ordered by MD. jr8 14:51 Discharged to home ambulatory. iw 14:51 Condition: good 14:51 Discharge instructions given to patient, Instructed on discharge instructions, follow up and referral plans. Demonstrated understanding of instructions, follow-up care. 14:51 Patient left the ED. iw Signatures: Dispatcher [employer] EDDC Francisco Hoskins MD MD kdr Munoz, Edgar, RN RN Agustina Deleon RN RN iw Martinez, Eric em1 Dawood Cartwright PA PA jr8 Ignacio Garcia RN RN bp Acob, Cheryl, RN RN ca1 James, Frank [facility]
--- NOTE | 2019-09-23 14:01 | EDPHYS ---
Physician Documentation [facility] Name: Dena Nance Age: 49 yrs Sex: Female : 1970 Arrival Date: 09/23/2019 Time: 10:50 Bed 2 Private MD: ED Physician Francisco Hoskins HPI: 09/22 11:13 This 49 yrs old Female presents to ER via Wheelchair with complaints of Chest jr8 Pain > 30 y/o, Breathing Difficulty. 11:13 The patient or guardian reports chest pain that is located primarily in the substernal jr8 area. Onset: acutely, today. The pain does not radiate. Associated signs and symptoms: Pertinent positives: palpitations, shortness of breath. The chest pain is described as a pressure. Duration: The patient or guardian reports a single episode, that is still ongoing, but improving. Modifying factors: The symptoms are alleviated by nothing. the symptoms are aggravated by nothing. Severity of pain: At its worst the pain was moderate in the emergency department the pain has improved moderately. The patient has not experienced similar symptoms in the past. The patient has not recently seen a physician. Denies recent illness or travel . 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 - Social history:: Smoking status: Patient denies any tobacco usage or history of. ROS: 11:13 Eyes: Negative for injury, pain, redness, and discharge, ENT: Negative for injury, jr8 pain, and discharge, Neck: Negative for injury, pain, and swelling, Abdomen/GI: Negative for abdominal pain, nausea, vomiting, diarrhea, and constipation, Back: Negative for injury and pain, MS/Extremity: Negative for injury and deformity, Skin: Negative for injury, rash, and discoloration, Neuro: Negative for headache, weakness, numbness, tingling, and seizure. 11:13 Cardiovascular: Positive for chest pain, palpitations. 11:13 Respiratory: Positive for shortness of breath, at rest. Exam: 11:12 Eyes: Pupils equal round and reactive to light, extra-ocular motions intact. Lids and jr8 lashes normal. Conjunctiva and sclera are non-icteric and not injected. Cornea within normal limits. Periorbital areas with no swelling, redness, or edema. ENT: Nares patent. No nasal discharge, no septal abnormalities noted. Tympanic membranes are normal and external auditory canals are clear. Oropharynx with no redness, swelling, or masses, exudates, or evidence of obstruction, uvula midline. Mucous membranes moist. Neck: Trachea midline, no thyromegaly or masses palpated, and no cervical lymphadenopathy. Supple, full range of motion without nuchal rigidity, or vertebral point tenderness. No Meningismus. Cardiovascular: Regular rate and rhythm with a normal S1 and S2. No gallops, murmurs, or rubs. Normal PMI, no JVD. No pulse deficits. Respiratory: Lungs have equal breath sounds bilaterally, clear to auscultation and percussion. No rales, rhonchi or wheezes noted. No increased work of breathing, no retractions or nasal flaring. Abdomen/GI: Soft, non-tender, with normal bowel sounds. No distension or tympany. No guarding or rebound. No evidence of tenderness throughout. Back: No spinal tenderness. No costovertebral tenderness. Full range of motion. Skin: Warm, dry with normal turgor. Normal color with no rashes, no lesions, and no evidence of cellulitis. MS/ Extremity: Pulses equal, no cyanosis. Neurovascular intact. Full, normal range of motion. Neuro: Awake and alert, GCS 15, oriented to person, place, time, and situation. Cranial nerves II-XII grossly intact. Motor strength 5/5 in all extremities. Sensory grossly intact. Cerebellar exam normal. Normal gait. 11:12 ECG was reviewed by the Attending Physician. Vital Signs: 11:03 BP 122 / 64; Pulse 90; Resp 19 S; Temp 98.1(TE); Pulse Ox 97% on R/A; Weight 72.57 kg ca1 (R); Height 5 ft. 4 in. (162.56 cm) (R); Pain 8/10; 12:30 BP 126 / 67; Pulse 89; Resp 18; Pulse Ox 100% on R/A; Pain 10/10; em 13:30 BP 118 / 67; Pulse 84; Resp 22; Pulse Ox 97% ; bp 14:33 BP 121 / 71; Pulse 85; Resp 17; Temp 98.1; Pulse Ox 98% ; bp 11:03 Body Mass Index 27.46 (72.57 kg, 162.56 cm) ca1 MDM: 11:08 Patient medically screened. jr8 13:56 The patient was not given aspirin in the Emergency Department. Patient reports taking jr8 aspirin within the past 24 hours. Data reviewed: vital signs, nurses notes, lab test result(s), EKG, radiologic studies, plain films, and as a result, I will discharge patient. Data interpreted: Pulse oximetry: on room air is 97 %. Interpretation: normal. 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 Response to treatment: the patient's symptoms have markedly improved after treatment. ED course: Patient feeling much better. No acute findings on labs, ecg, or imaging. X2 troponins both negative. Recommend 48 hour f/u with cardiology. If worse to immediately come back. Patient good with this. 09/22 11:08 Order name: Basic Metabolic Panel; Complete Time: 11:09/22 11:08 Order name: CBC with Diff; Complete Time: 11:33 09/22 11:08 Order name: LFT's; Complete Time: 11:09/22 11:08 Order name: Magnesium; Complete Time: 11:09/22 11:08 Order name: NT PRO-BNP; Complete Time: 11:09/22 11:08 Order name: PT-INR; Complete Time: 11:09/22 11:08 Order name: Troponin (emerg Dept Use Only); Complete Time: 11:09/22 11:08 Order name: XRAY Chest (1 view); Complete Time: 12:44 09/22 11:08 Order name: EKG; Complete Time: 11:10 09/22 11:08 Order name: Cardiac monitoring; Complete Time: 11:09/22 11:08 Order name: EKG - Nurse/Tech; Complete Time: 11:09/22 11:08 Order name: IV Saline Lock; Complete Time: 11:13 09/22 12:45 Order name: Troponin (emerg Dept Use Only); Complete Time: 13:56 09/22 11:08 Order name: Labs collected and sent; Complete Time: 11:09/22 11:08 Order name: O2 Per Protocol; Complete Time: 11:09/22 11:08 Order name: O2 Sat Monitoring; Complete Time: 11: EC: Rate is 85 beats/min. Rhythm is regular, Normal Sinus Rhythm. QRS [place] is Normal. [place] jr8 interval is normal at 146 msec. QRS interval is normal at 80 msec. QT interval is normal at 423 msec. No Q waves. T waves are Normal. No ST changes noted. Clinical impression: Normal ECG and No evidence of ischemia. Interpreted by me. Administered Medications: 12:31 Drug: fentaNYL (PF) 25 mcg Route: IVP; Site: right forearm; em 13:35 Follow up: Response: Pain is decreased bp Disposition: 09/23 07:06 Co-signature as Attending Physician, Francisco Hoskins MD I agree with the assessment and kdr plan of care. Disposition: 09/23/19 14:00 Discharged to Home. Impression: Chest pain, unspecified. - Condition is Stable. - Discharge Instructions: Nonspecific Chest Pain, Chest Wall Pain, Aspirin and Your Heart. - Medication Reconciliation Form, Thank You Letter, Antibiotic Education, Prescription Opioid Use form. - Follow up: Jeff Rapp MD; When: 1 - 2 days; Reason: Recheck today's complaints, Continuance of care, Re-evaluation by your physician. - Problem is new. - Symptoms have improved. Signatures: Dispatcher [employer] Francisco Pond MD MD kdr Munoz, Edgar, RN RN em Agustina Soares RN RN iw Dawood Cartwright PA PA jr8 Windy Narvaez RN RN ca1 Peltier, Brian RN bp Corrections: (The following items were deleted from the chart) 09/22 14:51 14:00 09/23/2019 14:00 Discharged to Home. Impression: Chest pain, unspecified. iw Condition is Stable. Forms are Medication Reconciliation Form, Thank You Letter, Antibiotic Education, Prescription Opioid Use. Follow up: Jeff Rapp; When: 1 - 2 days; Reason: Recheck today's complaints, Continuance of care, Re-evaluation by your physician. Problem is new. Symptoms have improved. jr8
[2019-09-23 15:35] VITALS: TEMP 98.1
[2019-09-23 15:40] VITALS: BP 121/71; O2SAT 98
== END 2019-09-23 14:51 | disposition home or self-care (01) ==
LOC: ER 10:47
DX: R07.9 Chest pain, unspecified (principal); R00.2 Palpitations; E11.9 Type 2 diabetes mellitus without complications
CPT/HCPCS: 93005; 85025; 80048; 36415; 83735; 85610; 80076; 84484 ×2; 83880; 71045; 96374; 99285; J3010

== ENCOUNTER 2019-12-07 20:31 | Emergency (ER) | payer OTHER ==
--- OUTSIDE RECORDS SUMMARY | 2019-12-07 20:34 | XMS REPORT ---
:1970 Author Organization eClinicalWorks Care Team Providers Name Role Phone Benjamin, Na Provider Role Unavailable Allergies, Adverse Reactions, Alerts Substance Reaction Event Type N.K.D.A. 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 Problem Fatty liver K76.0 Active Problem Depression with anxiety F41.8 Acti ve Problem Panic disorder [episodic paroxysmal F41.0 Active anxiety] Problem Acute stress reaction F43.0 Active Problem Gastroesophageal reflux disease, K21.9 Active esophagitis presence not specified Problem Decreased mobility R26.89 Active Problem Seasonal allergies J30.2 Active Problem Mixed hyperlipidemia E78.2 Active Problem Vitamin D deficiency E55.9 Active Assessment Screening for malignant neoplasm of Z12.39 Active breast Assessment Pain of both breasts N64.4 Active Assessment Retracted nipple N64.53 Active Problem Uncontrolled type 2 diabetes E11.65 Active mellitus with hyperglycemia Medications Medication Code Code Instructions Start End Status Dosage System Date Date Duloxetine HCl ND 59045042851 30 MG Orally Active 1 capsule Once a day Fluticasone ND 95787090938 50 MCG/ACT Apr 16, Active 1 spr ay in Propionate Nasally Once a 2019 each n ostril day Gabapentin ND 27639015025 300 MG Orally Active 1 c apsule three times a day Tresiba ND 23486051564 200 UNIT/ML Active 40 units in FlexTouch Subcutaneous pm titrat e once a day up 2 units every 3 days until fbg less 100 (max of 60 units daily) BD Pen Needle ND 02874148079 32G X 4 MM SC September Active as directed Kylie 2nd Gen once daily 2019 BusPIRone HCl ND 05030578126 5 MG Orally September Active 1 tablet every 6 hours 2019 prn anixety Glimepiride ND 98005635639 4 MG Orally Active 1 ta blet Once a day with breakfast or the first main meal of the day Metformin HCl ND 61394600403 500 MG Orally Active 2 tablet twice a day with a meal FreeStyle Tay [facility] 32203202706 - Active USE 14 Day Sensor DIRECTED EVERY 14 DAYS Levemir [facility] 80490645563 100 UNIT/ML August Active 22 units FlexTouch Subcutaneous 2019 daily an d daily titrate up 2 units every 2 days until FBG less 120 max of 50 units daily Omeprazole ND 56821810548 40 MG Orally Active 1 ca psule Once a day Sertraline HCl ND 11822317500 100 MG Orally Jun 22, Active 2 tablets Once a day 2018 Xanax ND 88468585032 0.5 MG Orally September Active 1 tabl et once a day prn 2019 anxiety attacks NovoFine Plus [facility] 72617262740 32G X 4 MM SC Active as directed once daily FreeStyle Tay [facility] 26342006635 - daily Active as directed 14 Day [place] Results No Known Results Summary Purpose eClinicalWorks Submission
--- OUTSIDE RECORDS SUMMARY | 2019-12-07 20:34 | XMS REPORT | Continuity of Care Document ---
:1970 Author Organization [facility] t Address [address] Chang [address] [place] [id number] Care Team Providers Name Role Phone Sharplion Primary Care Physician AIDA VELÁSQUEZ Attending Clinician Unavailable Problems Condition Condition Condition Status Onset Resolution Last Treating Co mments Source Name Details Category Date Date Treatment Clinician Date Depression Depression Problem Active [facility] Diabetic Diabetic Problem [facility] poly[facility]urop polyneurop [facility] - athy athy Memoria associated associated l with type with type Outp ati 2 diabetes 2 diabetes en t mellitus mellitus Clinic s Uncontroll Uncontroll Problem Active [facility] ed type 2 ed type 2 [facility] - diabetes diabetes Mem[facility] a mellitus mellitus l with with Outpati hyperglyce hyperglyce en t [facility] Clinics Seasonal Seasonal Problem Active [facility] allergies allergies [facility] Fatty Fatty Problem Active [facility] liver liver [facility] Decreased Decreased Problem Active [facility] mobility mobility [facility] Vitamin D Vitamin D Problem Active [facility] deficiency deficiency [facility] - [facility]ics Mixed Mixed Problem Active [facility] hyperlipid hyperlipid [facility] - emia emia [facility] Gastroesop Gastroesop Problem Active [facility] hageal hageal [facility] - reflux reflux [facility] disease, disease, l esophagiti esophagiti Ou tpati s presence s presence en t not not Clinics specified specified Panic Panic Problem Active [facility] disorder disorder [facility] - [episodic [episodic Josue rafy paroxysmal paroxysmal l anxiety] anxiety] Outpat i ent Clinics Acute Acute Problem Active [facility] stress stress [facility] reaction reaction [facility] Allergies, Adverse Reactions, Alerts This patient has no known allergies or adverse reactions. Social History Social Habit Start Date Stop Date Quantity Comments Source Sex Assigned At [facility] Smoking Status Start Date Stop Date Source Never smoker [facility] Medications Ordered Filled Start Stop Current Ordering Indication Dosage Frequency Signature Comments Components Source Medication Medication Date Date Medication? Clinician (SIG) Name Name BD Pen BD Pen Yes Na Benjamin as [facility] Needle Kylie Needle Kylie 4-06 directed [facility] - 2nd Gen 2nd Gen 00:00: [facility] BusPIRone BusPIRone Yes Na Benjamin [address] [facility] HCl HCl 4-06 [facility] - 00:[facility]: [facility] Xanax Xanax Yes Na Benjamin [address] [facility] 4-06 [facility] - 00[facility]: [facility] Levemir Levemir Yes Na Benjamin [address] [facility] FlexTouch FlexTouch 3-06 daily and [facility] - 00:00: titrate up Memoria 00 2 units l every 2 Outpati days until ent FBG less Clinics 120 max of 50 units daily Omeprazole Omeprazole Yes Na Benjamin [address] [facility] 2-25 [facility] - 00:00: [facility] NovoFine NovoFine Yes Na Benjamin as [facility] Plus Plus 1-06 directed [facility] - 00:[facility]: [facility] Sertraline Sertraline 2018-06 Yes Na Benjamin [address] HCl HCl 2-24 [facility] - 00:00: [facility] Fluticasone Fluticasone 2018-06 Yes Na Benjamin [address] [facility] Propionate Propionate 0-18 each [facility]elina es - 00:00: nostril [facility] empaglifloz 2016-06 Yes 10mg QD Take [address] [facility] in 1-10 by mouth [facility] - (JARDIANCE) 10:01: daily. Medi michele 10 mg 13 Center tablet sertraline 2016-06 Yes 50mg QD Take [address] (ZOLOFT) 50 1-10 by mouth [facility] - MG tablet 10:01: daily. Medica l 13 Center metFORMIN 2016-06 Yes 500mg Take [address] [facility] (GLUCOPHAGE 1-10 mg by [facility] - ) 500 MG 10:01: mouth 2 Medica l tablet 12 (two) Center times daily with breakfast and dinner. glimepiride 2016-06 Yes 4mg Take [address] (AMARYL) 4 1-10 by mouth 2 [facility]elina es - MG tablet 10:01: (two) Medical 12 times Center daily before meals. Duloxetine Duloxetine Yes Na Benjamin [address] HCl HCl [facility] Clinics [facility] Yes Na Benjamin [address] FlexTouch FlexTouch in pm [facility] - titrate up Memoria 2 units l every 3 Outpati days until ent fbg less Clinics 100 (max of 60 units daily) Glimepiride Glimepiride Yes Na Benjamin [address] [facility] with [facility] - breakfast Memoria or the l first main Outpati meal of ent the day Clinics FreeStyle FreeStyle Yes Na Benjamin USE [facility] Tay 14 Tay 14 DIRECTED [facility]ina es - Day Sensor Day Sensor EVERY 14 Memoria DAYS l Outpati ent Clinics Gabapentin Gabapentin Yes Na Benjamin [address] [facility] FreeStyle FreeStyle Yes Na Benjamin as [facility] Tay 14 Tay 14 directed [facility]ina es - Day [place] Day [place] [facility] l Outpati ent Clinics Metformin Metformin Yes Na Benjamin [address] [facility] HCl HCl with a [facility] - meal [facility] Outpati ent Clinics Immunizations Ordered Filled Immunization Date Status Comments Sour e Immunization Name Name Flucelvax - Flucelvax - 2019-03-[address] [facility] - multidose vial multidose vial 00:00:00 [facility] al Outpatient Clinics Procedures This patient has no known procedures. Encounters Start End Encounter Admission Attending Care Care Encounter Source Date/Time Date/Time Type Type Clinicians Facility Department ID 2019-10-27 2019-10-27 Outpatient Jam Rivera [id number] [facility] 14:08:00 14:08:00 [employer] - [facility] Medicine Outpati ent Clinics 2019-10-13 2019-10-13 [facility] [id number] 11:40:00 11:40:00 [place] [employer] [facility] [facility] l Medicine Outpati ent Clinics 2019-10-04 2019-10-04 [facility] [id number] [facility] 08:00:00 08:00:00 [place] [facility] [facility] Medicine l Medicine Outpati ent Clinics 2019-08-26 2019-08-26 [facility] [id number] 09:30:00 09:30:00 [place] [employer] [employer] [facility] Family [facility] l Medicine Outpati ent Clinics 2019-08-25 2019-08-25 [facility] [id number] [facility] 11:51:00 11:51:00 t [employer] [facility] Medicine l Medicine Outpati ent Clinics 2019-08-24 2019-08-24 [facility] [id number] 14:40:00 14:40:00 [place] [facility] [facility] Medicine l Medicine Outpati ent Clinics 2019-08-17 2019-08-17 [facility] [id number] 11:59:00 11:59:00 [place] [employer] [facility] Medicine l Medicine Outpati ent Clinics 2019-07-05 2019-07-05 [facility] [id number] [facility] 16:00:00 16:00:00 t 24 [employer] s [facility] Medicine l Medicine Outpati ent Clinics 2019-06-22 2019-06-22 [facility] [id number] 11:53:00 11:53:00 [place] [facility] [facility] Medicine l Medicine Outpati ent Clinics 2019-06-22 2019-06-22 [facility] [id number] 10[facility]22:00 10:22:00 [place] [employer] [facility] Medicine l Medicine Outpati ent Clinics 2019-05-24 2019-05-24 [facility] [id number] 10:00:00 10:00:00 [place] [employer] [facility] Medicine Outpati ent Clinics 2019-05-05 2019-05-05 [facility] [id number] 15:44:00 15:44:00 [place] [facility] - Drive [facility] Outpati ent Clinics 2019-05-04 2019-05-04 [facility] [id number] 15[facility]20:00 15:20:00 [place] - [employer] [facility] Medicine Outpati ent Clinics 2019-04-27 2019-04-27 [facility] [id number] 17:18:00 17:18:00 [place] [facility] [employer] [facility] Medicine Outpati ent Clinics 2019-04-26 2019-04-26 [facility] [id number] 17:24:00 17:24:00 [place] [employer] [facility] Medicine Outpati ent Clinics 2019-04-20 2019-04-20 [facility] [id number] 08:27:00 08:27:00 [place] [employer] [facility] Medicine Outpati ent Clinics 2019-04-12 2019-04-12 [facility] [id number] 11:00:00 11:00:00 [place] [facility] [employer] [facility] Medicine Outpati ent Clinics 2019-03-30 2019-03-30 [facility] [id number] 14:00:00 14:00:00 t [employer] [facility] Outpati ent Clinics Results Test Description Test Time Test Comments Results Result [facility] e Comments MM, STEREOTACTIC 2017-04-30 Reason for Addendum BeginsMRN#: BIOPSY, BREAST, 5 Exam:->calcificati [id number]: LEFT 15:59:00 on 05/14/2017 Lizzette Velásquez M.D. 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 Addendum EndsMRN#: [id number] - MM, STEREOTACTIC BIOPSY, BREAST, LEFTSTEREOTACTIC GUIDED [...] correct location, five specimens were obtained using [employer] Medical[employer] device. A clip was inserted into the [...] the calcifications. Lizzette Velásquez M.D. pth/penrad:05/09/2017 11:07:57 Hydrographical Technical Officer: Felicia Rizzo RT(R)(M), [facility] [address] UE EXAM 2017-04- Surgical Pathology 3 Report 12:48:00 Case: [id number] Authorizing Provider: Lizzette Velásquez MD Collected: 05/09/2017 1110 Ordering Location: [facility] Received: 05/09/2017 1312 Pathologist: Jackie Maradiaga MD Specimen: Breast, Left, LEFT MIDDLE 12 BREAST CALCIFICATION BREAST, LEFT, MIDDLE 12 O'CLOCK, CALCIFICATIONS, STEREOTACTIC CORE NEEDLE BIOPSY: - HYALINIZED FIBROADENOMA - COLUMNAR CELL HYPERPLASIA - COLUMNAR CELL CHANGES - MICROCALCIFICATIONS, COARSE, ASSOCIATED WITH FIBROADENOMA Signing Pathologist Direct Phone Line: [phone] ally signed by Jackie Maradiaga MD on 05/12/2017 at 12:48 PMIn the sections examined, no atypical hyperplasia or carcinoma is identified.[id number] sing lesion Left middle 12 o'clock breast calcifications The specimen is received in a formalin-filled container labeled with the patient's information and labeled "left middle 12 o'clock breast calcifications" and consists of multiple yellow-white breast core biopsies ranging in length from 0.6 to 2.5 cm.Ink code: Black.The specimen is submitted entirely in A1 and A2. CG/ewPerformed.[facility], Department of Pathology, [address] [place] [address], [place] [address], MM, DIGITAL, 2017-04-30 Left breast MRN#: UNILATERAL, 0 calcifications [id number] - CONFER MARTA, 11:07:00 MM, DIGITAL, MAMMO, LEFT UNILATERAL, CONFER INCLUDING CAD MARTA, MAMMO, LEFT INCLUDING CADUNILATERAL LEFT DIGITAL PROBLEM SOLVING MAMMOGRAM POST-PROCEDURE IMAGING FOR MARKER PLACEMENT: 05/09/2017 The tissue of the left breast is heterogeneously dense. This may lower the sensitivity of mammography. The post procedure mammogram was performed on a separate mammography unit.A clip is placed at the biopsy site. IMPRESSION: POST PROCEDURE MAMMOGRAM FOR MARKER PLACEMENTAwait pathology results. Lizzette Velásquez M.D. pth/:05/09/2017 11:07:15 Hydrographical Technical Officer: Felicia Rizzo RT(R)(M), [facility] Mammogram BI-RADS: Post-procedure mammogram for marker placement [id number] , MAMMO, 2017-04-30 Reason for MRN#: SPECIMEN, 0 exam:->Left breast [id number] - RADIOGRAPH, LEFT 11:06:00 calcifications MM, MAMMO, SPECIMEN, RADIOGRAPH, LEFTSPECIMEN LEFT BREAST: 05/09/2017Five stereotactic guided biopsy specimens were imaged for the area of calcifications located in the left breast at 12 o'clock middle depth. IMPRESSION: SPECIMENThe imaged specimens includes the calcifications. Lizzette Velásquez M.D. pth/:05/09/2017 11:06:40 Hydrographical Technical Officer: Felicia SCHNEIDER)(M), [facility] [id number]
--- OUTSIDE RECORDS SUMMARY | 2019-12-07 20:34 | XMS REPORT ---
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 Assessment Acute stress reaction F43.0 Active Assessment Atypical chest pain R07.89 Active Assessment Gastroesophageal reflux disease, K21.9 Active esophagitis presence not specified Assessment Panic disorder [episodic paroxysmal F41.0 Active anxiety] Assessment Uncontrolled type 2 diabetes E11.65 Active mellitus with hyperglycemia Problem Uncontrolled type 2 diabetes E11.65 Active mellitus with hyperglycemia Medications Medication Code Code Instructions Start End Status Dosage System Date Date Gabapentin ND 37881274653 300 MG Orally Active 1 c apsule three times a day FreeStyle Tay [facility] 09264830838 - daily Active as directed 14 Day Stuart FreeStyle Tay [facility] 35699246653 - Active USE 14 Day Sensor DIRECTED EVERY 14 DAYS BD Pen Needle ND 00395889467 32G X 4 MM SC September Active as directed Kylie 2nd Gen once daily 2019 BusPIRone HCl ND 03871371260 5 MG Orally September Active 1 tablet every 6 hours 2019 prn anixety Metformin HCl ND 90559672456 500 MG Orally Active 2 tablet twice a day with a meal Duloxetine HCl ND 79612367677 30 MG Orally Active 1 capsule Once a day Fluticasone ND 69034292042 50 MCG/ACT Oct 18, Active 1 spr ay in Propionate Nasally Once a 2019 each n ostril day Xanax ND 61410307941 0.5 MG Orally September Active 1 tabl et once a day prn 2019 anxiety attacks Sertraline HCl ND 68724638031 100 MG Orally Jun 22, Active 2 tablets Once a day 2018 Levemir ND 95507849577 100 UNIT/ML August Active 22 units FlexTouch Subcutaneous 2019 daily an d daily titrate up 2 units every 2 days until FBG less 120 max of 50 units daily Omeprazole ND 74550595552 40 MG Orally Active 1 ca psule Once a day NovoFine Plus [facility] 64696052153 32G X 4 MM SC Active as directed once daily Tresiba ND 96651880743 200 UNIT/ML Active 40 units in FlexTouch Subcutaneous pm titrat e once a day up 2 units every 3 days until fbg less 100 (max of 60 units daily) Glimepiride [facility] 25161075298 4 MG Orally Active 1 ta blet Once a day with breakfast or the first main meal of the day Results No Known Results Summary Purpose eClinicalWorks Submission
--- OUTSIDE RECORDS SUMMARY | 2019-12-07 20:34 | XMS REPORT ---
:1970 Author Organization eClinicalWorks Care Team Providers Name Role Phone Benjamin, Na Provider Role Unavailable Allergies, Adverse Reactions, Alerts Substance Reaction Event Type N.K.D.A. 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 Problem Mixed hyperlipidemia E78.2 Active Problem Vitamin D deficiency E55.9 Active Problem Gastroesophageal reflux disease, K21.9 Active esophagitis presence not specified Problem Fatty liver K76.0 Active Problem Depression with anxiety F41.8 Acti ve Problem Decreased mobility R26.89 Active Problem Seasonal allergies J30.2 Active Assessment Personal history of peptic ulcer Z87.11 Active disease Assessment Uncontrolled type 2 diabetes E11.65 Active mellitus with hyperglycemia Assessment 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 Assessment Epigastric pain R10.13 Active Assessment Gastroesophageal reflux disease, K21.9 Active esophagitis presence not specified Medications Medication Code Code Instructions Start End Status Dosage System Date Date Kendy [facility] 40167575596 100 UNIT/ML Apr 28, Inactive 22 uni ts KwikPen Subcutaneous 2019 daily and once daily titrate up 2 units every 2 days until FBG less 120 max of 50 units daily Duloxetine HCl ND 24352280578 30 MG Orally Active 1 capsule Once a day Sertraline HCl ND 39514207992 100 MG Orally Jun 22, Active 1 tablet Once a day 2018 Tresiba ND 99733948778 200 UNIT/ML Active 20 units in FlexTouch Subcutaneous pm titrat e once a day up 2 units every 3 days until fbg less 100 (max of 40 units daily) Sucralfate ND 67851426728 1 GM Orally Aug 24August Active 1 tab let on three times a 2019 26, an empty day and bedtime 2019 stomach Fluticasone ND 35615368580 50 MCG/ACT Apr 16, Active 1 spr ay in Propionate Nasally Once a 2018 each day nostril Glimepiride ND 89208895494 4 MG Orally Active 1 ta blet Once a day with breakfast or the first main meal of the day FreeStyle [facility] 54680572543 - Active USE Tay 14 Day DIRECTED Sensor EVERY 14 DAYS Gabapentin ND 99334266251 300 MG Orally Active 1 c apsule three times a day FreeStyle [facility] 73641894840 - daily Active as direct ed Tay 14 Day [place] NovoFine Plus [facility] 47888786011 32G X 4 MM SC Jul 05, Active as directed once daily 2019 Omeprazole ND 72526684452 40 MG Orally Aug 24, Active 1 ca psule Once a day 2019 Metformin HCl ND 36871069632 500 MG Orally Active 2 tablet twice a day with a meal Results No Known Results Summary Purpose eClinicalWorks Submission
--- OUTSIDE RECORDS SUMMARY | 2019-12-07 20:34 | XMS REPORT | Clinical Summary ---
:1970 Author Organization [facility] Address [address] [place] [address] Care Team Providers Name Role Phone Dolores [...] meals. empagliflozin Take 10 mg by 0 Ac tive (JARDIANCE) 10 mg mouth daily. tablet sertraline [...] Not on file Results Not on fileafter 12/06/2018 Insurance Payer Benefit Plan / Group Subscriber ID Type Phone A [facility] xxxxxxxxxxxx HMO/POS [phone] CHOICE EXCHANGE (Work) [phone]
--- OUTSIDE RECORDS SUMMARY | 2019-12-07 20:34 | XMS REPORT ---
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 Problem Fatty liver K76.0 Active Problem Depression with anxiety F41.8 Acti ve Problem Uncontrolled type 2 diabetes E11.65 Active mellitus with hyperglycemia Problem Panic disorder [episodic paroxysmal F41.0 Active anxiety] Problem Acute stress reaction F43.0 Active Problem Gastroesophageal reflux disease, K21.9 Active esophagitis presence not specified Problem Decreased mobility R26.89 Active Problem Seasonal allergies J30.2 Active Problem Mixed hyperlipidemia E78.2 Active Problem Vitamin D deficiency E55.9 Active Medications No Known Medications Results No Known Results Summary Purpose eClinicalWorks Submission
[2019-12-07] MEDS ORDERED: MORPHINE 4 MG/ML SYR ONE (21:14)
[2019-12-07] MEDS ORDERED: ONDANSETRON 4 MG/2 ML VIAL ONE (21:14)
[2019-12-07] MEDS ORDERED: FAMOTIDINE 20 MG/2 ML VIAL IV ONE (21:14)
[2019-12-07] MEDS ORDERED: NA CHLORIDE 0.9% 1,000 ML ONE (21:14)
[2019-12-07 21:15] LABS: Absolute Lymphocytes (CBC) 2.2 K/uL (0.7-4.9); Basophils % 1.1 % (0-1.3); Hematocrit 36.9 % (36.0-45.0); MPV 9.2 fL (7.6-11.3); RBC Red Blood Cell Count 4.48 M/uL (3.86-4.86)
[2019-12-07 21:25] LABS: ALT/SGPT 30 U/L (12-78); AST/SGOT 32 U/L (15-37); Albumin 3.6 g/dL (3.4-5.0); Alkaline Phosphatase 96 U/L (45-117); BUN Blood Urea Nitrogen 9 mg/dL (7-18); Bicarbonate 27 mmol/L (21-32); Bilirubin Direct < 0.1 mg/dL (0-0.2); Bilirubin Total 0.3 mg/dL (0.2-1.0); Glucose Level 268 mg/dL (74-106); Lipase 337 U/L (73-393); Potassium 4.1 mmol/L (3.5-5.1); Protein, Total 7.4 g/dL (6.4-8.2); Sodium Level 139 mmol/L (136-145)
[2019-12-07 22:12] LABS: Urine Blood NEGATIVE (NEG); Urine Glucose 2+ (NEG); Urine Protein NEGATIVE (NEG); Urine Specific Gravity >1.030 (1.005-1.030); Urine pH 6.5 (5.0-7.0)
[2019-12-07] MEDS ORDERED: LIDOCAINE VISCOUS 2% SOLN 15 ML UDC ONE (22:25)
[2019-12-07] MEDS ORDERED: MAGNE/ALUM HYDROXD 30 ML UCUP ONE (22:25)
--- NOTE | 2019-12-07 22:57 | EDPHYS ---
Physician Documentation [facility] Name: Dena Nance Age: 49 yrs Sex: Female : 1970 Arrival Date: 12/07/2019 Time: 20:36 Bed 7 Private MD: ED Physician Juan Loya HPI: 12/06 21:16 This 49 yrs old Female presents to ER via Ambulatory with complaints of mh7 Abdominal Pain. 21:16 The patient presents with abdominal pain in the upper abdomen. Onset: The mh7 symptoms/episode began/occurred 3 day(s) ago. The symptoms do not radiate. 21:16 Associated signs and symptoms: Pertinent positives: nausea, Pertinent negatives: mh7 anorexia, blood in stools, chest pain, constipation, diarrhea, dysuria, fever, headache, hematuria, palpitations, shortness of breath, vaginal discharge, vomiting, vomiting blood. The symptoms are described as intermittent, vague, waxing/waning. Modifying factors: The symptoms are alleviated by nothing, the symptoms are aggravated by food. Severity of pain: At its worst the pain was moderate today, in the emergency department the pain is unchanged. The patient has experienced similar episodes in the past, multiple times. Historical: - Allergies: 20:43 NKA; rr5 - PMHx: 20:43 Diabetes - NIDDM; Diverticulitis; fatty liver; Pancreatitis; rr5 - PSHx: 20:43 Hysterectomy; Cholecystectomy; rr5 - Immunization history:: Adult Immunizations up to date. - Social history:: Smoking status: unknown Patient/guardian denies using tobacco products. ROS: 21:16 Constitutional: Negative for fever, chills, and weight loss, Eyes: Negative for injury, mh7 pain, redness, and discharge, ENT: Negative for injury, pain, and discharge, Neck: Negative for injury, pain, and swelling, Cardiovascular: Negative for chest pain, palpitations, and edema, Respiratory: Negative for shortness of breath, cough, wheezing, and pleuritic chest pain, Back: Negative for injury and pain, : Negative for injury, bleeding, discharge, and swelling, MS/Extremity: Negative for injury and deformity, Skin: Negative for injury, rash, and discoloration, Neuro: Negative for headache, weakness, numbness, tingling, and seizure, Psych: Negative for depression, anxiety, suicide ideation, homicidal ideation, and hallucinations, Allergy/Immunology: Negative for hives, rash, and allergies, Endocrine: Negative for neck swelling, polydipsia, polyuria, polyphagia, and marked weight changes, Hematologic/Lymphatic: Negative for swollen nodes, abnormal bleeding, and unusual bruising. Exam: 21:16 Constitutional: This is a well developed, well nourished patient who is awake, alert, mh7 and in no acute distress. Head/Face: Normocephalic, atraumatic. Eyes: Pupils equal round and reactive to light, extra-ocular motions intact. Lids and lashes normal. Conjunctiva and sclera are non-icteric and not injected. Cornea within normal limits. Periorbital areas with no swelling, redness, or edema. Neck: Trachea midline, no thyromegaly or masses palpated, and no cervical lymphadenopathy. Supple, full range of motion without nuchal rigidity, or vertebral point tenderness. No Meningismus. Chest/axilla: Normal chest wall appearance and motion. Nontender with no deformity. No lesions are appreciated. Cardiovascular: Regular rate and rhythm with a normal S1 and S2. No gallops, murmurs, or rubs. Normal PMI, no JVD. No pulse deficits. Respiratory: Lungs have equal breath sounds bilaterally, clear to auscultation and percussion. No rales, rhonchi or wheezes noted. No increased work of breathing, no retractions or nasal flaring. 21:16 Back: No spinal tenderness. No costovertebral tenderness. Full range of motion. Skin: Warm, dry with normal turgor. Normal color with no rashes, no lesions, and no evidence of cellulitis. MS/ Extremity: Pulses equal, no cyanosis. Neurovascular intact. Full, normal range of motion. Neuro: Awake and alert, GCS 15, oriented to person, place, time, and situation. Cranial nerves II-XII grossly intact. Motor strength 5/5 in all extremities. Sensory grossly intact. Cerebellar exam normal. Normal gait. Psych: Awake, alert, with orientation to person, place and time. Behavior, mood, and affect are within normal limits. 21:16 Abdomen/GI: Inspection: abdomen appears normal, obese Bowel sounds: normal, in all quadrants, Palpation: moderate abdominal tenderness, in the epigastric area, right upper quadrant and left upper quadrant, Rectal exam: the exam is deferred, because of patient request, Indicators: McBurney's point is not tender, Garza's sign is negative, Rovsing's sign is negative, Obturator sign is negative, Psoas sign is negative, Liver: no appreciated palpable abnormalities, Hernia: not appreciated. 22:37 ECG was reviewed by the Attending Physician. [facility] Vital Signs: 20:40 BP 129 / 58; Pulse 86; Resp 19; Temp 98.5; Pulse Ox 98% ; Weight 74.39 kg; Height 5 ft. rr5 4 in. (162.56 cm); Pain 10/10; 22:25 BP 134 / 67; Pulse 82; Resp 18; Pulse Ox 98% ; ea 22:36 BP 122 / 58; Pulse 80; Resp 18; Pulse Ox 95% on R/A; mg2 20:40 Body Mass Index 28.15 (74.39 kg, 162.56 cm) rr5 MDM: 21:15 Patient medically screened. [facility] 22:54 Differential diagnosis: AAA, appendicitis, bowel obstruction, coronary artery disease, 7 diverticulitis, gastritis, non-specific abd pain, pancreatitis, Peptic Ulcer Disease, Pyelonephritis, urinary tract infection. Data reviewed: vital signs, nurses notes, old medical records, lab test result(s), EKG, radiologic studies, CT scan. Counseling: I had a detailed discussion with the patient and/or guardian regarding: the historical points, exam findings, and any diagnostic results supporting the discharge/admit diagnosis, lab results, radiology results, the need for outpatient follow up, to return to the emergency department if symptoms worsen or persist or if there are any questions or concerns that arise at home. Response to treatment: the patient's symptoms have resolved after treatment, the patient's blood pressure is in an acceptable range, mental status has returned to baseline, the patient no longer shows bradycardia, the patient is not short of breath, the patient is not tachycardic, the patient's pain is gone, the patient's temperature has normalized. 12/06 20:49 Order name: Basic Metabolic Panel; Complete Time: 21:43 mg2 12/06 20:49 Order name: CBC with Diff; Complete Time: 22:32 mg2 12/06 20:49 Order name: Hepatic Function; Complete Time: 21:43 mg2 12/06 20:49 Order name: Lipase; Complete Time: 21:43 mg2 12/06 20:57 Order name: Urine Microscopic Only rr5 12/06 21:01 Order name: Urine Dipstick--Ancillary (enter results); Complete Time: 22:32 mw2 12/06 20:49 Order name: IV Saline Lock; Complete Time: 21:00 mg2 12/06 21:47 Order name: CT Abd/Pelvis - IV Contrast Only 7 12/06 23:08 Order name: Urine Culture EDWA 12/06 20:49 Order name: Labs collected and sent; Complete Time: 21:00 mg2 12/06 20:57 Order name: Urine Dipstick-Ancillary (obtain specimen); Complete Time: 20:58 rr5 12/06 21:20 Order name: EKG - Nurse/Tech; Complete Time: 21:31 mh7 EC:37 Rate is 84 beats/min. Rhythm is regular. QRS [place] is Normal. [place] interval is normal. QRS mh7 interval is normal. QT interval is normal. No Q waves. T waves are Normal. No ST changes noted. Clinical impression: Normal ECG. Administered Medications: 21:08 Drug: morphine 4 mg Route: IVP; Site: right antecubital; mg2 22:13 Follow up: Response: No adverse reaction; Pain is decreased ea 21:08 Drug: Zofran (Ondansetron) 4 mg Route: IVP; Site: right antecubital; mg2 22:13 Follow up: Response: No adverse reaction; Nausea is decreased ea 21:08 Drug: Pepcid 20 mg Route: IVP; Site: right antecubital; mg2 22:13 Follow up: Response: No adverse reaction ea 21:08 Drug: NS 0.9% 1000 ml Route: IV; Rate: 1 bolus; Site: right antecubital; mg2 22:50 Follow up: Response: No adverse reaction; IV Status: Completed infusion; IV Intake: ea 1000ml 22:22 Drug: GI Cocktail without - (Maalox Suspension 30 ml, Lidocaine Liquid 2 % 15 ea ml) Route: PO; 23:00 Follow up: Response: No adverse reaction ea Disposition: 12/07/19 22:56 Discharged to Home. Impression: Unspecified abdominal pain, Urinary tract infection, site not specified. - Condition is Stable. - Discharge Instructions: Urinary Tract Infection, Adult, [id number], Abdominal Pain, Adult, [id number]. - Prescriptions for Zofran ODT 4 mg Oral tablet,disintegrating - place 1 tablet by TRANSLINGUAL route every 8 hours As needed; 10 tablet. Bentyl 20 mg Oral Tablet - take 1 tablet by ORAL route every 6 hours As needed; 20 tablet. Pepcid 20 mg Oral Tablet - take 1 tablet by ORAL route every 12 hours for 5 days; 10 tablet. Cipro 500 mg Oral Tablet - take 1 tablet by ORAL route every 12 hours for 7 days; 14 tablet. - Medication Reconciliation Form, Thank You Letter, Antibiotic Education, Prescription Opioid Use form. - Follow up: Private Physician; When: 1 - 2 days; Reason: Worsening of condition, Recheck today's complaints, Re-evaluation by your physician. - Problem is an acute exacerbation. - Symptoms have improved. Signatures: Dispatcher [employer] EDMS Dasha Tyson RN RN ea Gardose, Michele, RN RN mg2 Roque, Raymond, RN RN rr5 Juan Loya MD MD mh7 Corrections: (The following items were deleted from the chart) 23:13 22:56 12/07/2019 22:56 Discharged to Home. Impression: Unspecified abdominal pain; ea Urinary tract infection, site not specified. Condition is Stable. Forms are Medication Reconciliation Form, Thank You Letter, Antibiotic Education, Prescription Opioid Use. Follow up: Private Physician; When: 1 - 2 days; Reason: Worsening of condition, Recheck today's complaints, Re-evaluation by your physician. Problem is an acute exacerbation. Symptoms have improved. mh7
--- NOTE | 2019-12-07 22:57 | ER ---
Nurse's Notes [facility] Name: Dena Nance Age: 49 yrs Sex: Female : 1970 Arrival Date: 12/07/2019 Time: 20:36 Bed 7 Private MD: Diagnosis: Unspecified abdominal pain;Urinary tract infection, site not specified Presentation: 12/06 20:40 Chief complaint: Patient states: abdominal pain started 3 days ago, it gets worst now, rr5 feel nauseous too. have history of pancreatitis and diverticulitis. Coronavirus screen: Proceed with normal triage. Ebola Screen: Patient negative for fever greater than or equal to 101.5 degrees Fahrenheit, and additional compatible Ebola Virus Disease symptoms Patient denies exposure to infectious person. Patient denies travel to an Ebola-affected area in the 21 days before illness onset. Initial Sepsis Screen: Does the patient meet any 2 criteria? No. Patient's initial sepsis screen is negative. Does the patient have a suspected source of infection? No. Patient's initial sepsis screen is negative. Risk Assessment: Do you want to hurt yourself or someone else? Patient reports no desire to harm self or others. Onset of symptoms was December 04, 2019. 20:40 Method Of Arrival: Ambulatory rr5 20:40 Acuity: MARIANA 3 rr5 Historical: - Allergies: 20:43 NKA; rr5 - PMHx: 20:43 Diabetes - NIDDM; Diverticulitis; fatty liver; Pancreatitis; rr5 - PSHx: 20:43 Hysterectomy; Cholecystectomy; rr5 - Immunization history:: Adult Immunizations up to date. - Social history:: Smoking status: unknown Patient/guardian denies using tobacco products. Screenin:09 Abuse screen: Denies threats or abuse. Denies injuries from another. Nutritional mg2 screening: No deficits noted. Tuberculosis screening: No symptoms or risk factors identified. Fall Risk IV access (20 points). Assessment: 21:09 General: Appears in no apparent distress. comfortable, Behavior is calm, cooperative. mg2 Pain: Complains of pain in abdomen. Neuro: Level of Consciousness is awake, alert, obeys commands, Oriented to person, place, time, situation. Cardiovascular: Capillary refill < 3 seconds Patient's skin is warm and dry. Respiratory: Airway is patent Respiratory effort is even, unlabored, Respiratory pattern is regular, symmetrical. GI: Abdomen is non-distended, Bowel sounds Abd is soft and non tender Reports anorexia. : No signs and/or symptoms were reported regarding the genitourinary system. EENT: No signs and/or symptoms were reported regarding the EENT system. Derm: Skin is intact, is healthy with good turgor, Skin is pink, warm \T\ dry. normal. Musculoskeletal: Circulation, motion, and sensation intact. Capillary refill < 3 seconds. 22:22 Reassessment: Patient and/or family updated on plan of care and expected duration. Pain ea level reassessed. Patient is alert, oriented x 3, equal unlabored respirations, skin warm/dry/pink. 23:12 Reassessment: Patient and/or family updated on plan of care and expected duration. Pain ea level reassessed. Patient is alert, oriented x 3, equal unlabored respirations, skin warm/dry/pink. Discharge instruction given to patient, verbalized the understanding of instruction. Pt left ED ambulatory tolerating well. Vital Signs: 20:40 BP 129 / 58; Pulse 86; Resp 19; Temp 98.5; Pulse Ox 98% ; Weight 74.39 kg; Height 5 ft. rr5 4 in. (162.56 cm); Pain 10/10; 22:25 BP 134 / 67; Pulse 82; Resp 18; Pulse Ox 98% ; ea 22:36 BP 122 / 58; Pulse 80; Resp 18; Pulse Ox 95% on R/A; mg2 20:40 Body Mass Index 28.15 (74.39 kg, 162.56 cm) rr5 ED Course: 20:36 Patient arrived in ED. bp1 20:40 Patient has correct armband on for positive identification. Bed in low position. Call ea light in reach. 20:42 Triage completed. rr5 20:43 Arm band placed on right wrist. rr5 20:48 Idris Rogers RN is Primary Nurse. mg2 20:51 Juan Loya MD is Attending Physician. mh7 20:55 Inserted saline lock: 20 gauge in right antecubital area, using aseptic technique. mg2 Blood collected. 20:58 Urine collected: clean catch specimen, clear. rr5 21:09 No provider procedures requiring assistance completed. mg2 22:14 CT Abd/Pelvis - IV Contrast Only In Process Unspecified. EDMS 23:12 IV discontinued, intact, bleeding controlled, No redness/swelling at site. Pressure ea dressing applied. Administered Medications: 21:08 Drug: morphine 4 mg Route: IVP; Site: right antecubital; mg2 22:13 Follow up: Response: No adverse reaction; Pain is decreased ea 21:08 Drug: Zofran (Ondansetron) 4 mg Route: IVP; Site: right antecubital; mg2 22:13 Follow up: Response: No adverse reaction; Nausea is decreased ea 21:08 Drug: Pepcid 20 mg Route: IVP; Site: right antecubital; mg2 22:13 Follow up: Response: No adverse reaction ea 21:08 Drug: NS 0.9% 1000 ml Route: IV; Rate: 1 bolus; Site: right antecubital; mg2 22:50 Follow up: Response: No adverse reaction; IV Status: Completed infusion; IV Intake: ea 1000ml 22:22 Drug: GI Cocktail without - (Maalox Suspension 30 ml, Lidocaine Liquid 2 % 15 ea ml) Route: PO; 23:00 Follow up: Response: No adverse reaction ea Intake: 22:50 IV: 1000ml; Total: 1000ml. ea Outcome: 22:56 Discharge ordered by MD. cordova 23:12 Discharged to home ambulatory, with family. ea 23:12 Condition: stable 23:12 Discharge instructions given to patient, Instructed on discharge instructions, follow up and referral plans. medication usage, Demonstrated understanding of instructions, follow-up care, medications, Prescriptions given X 4. 23:13 Patient left the ED. ea Signatures: Dispatcher [employer] EDMS Dasha Tyson RN RN ea Gardose, Michele, RN RN mg2 Roque, Raymond, RN RN rr5 Pauly Silveira Maurice, MD MD 7
[2019-12-07 23:07] LABS: Urine Bacteria <20 /HPF (<20); Urine Culture Reflex Order REFLEXED; Urine RBC <5 /HPF (NONE SEEN); Urine Urothelial Cells <5 /HPF (NONE SEEN)
[2019-12-07 23:27] VITALS: TEMP 98.5
[2019-12-07 23:30] VITALS: BP 122/58; O2SAT 95
--- NOTE | 2019-12-08 10:41 | RAD REPORT ---
EXAM DESCRIPTION: CT - Abdomen Pelvis W Contrast - 12/08/2019 7:03 am CLINICAL HISTORY: ABD PAIN COMPARISON: August 30, 2019 TECHNIQUE: Contiguous axial images of the abdomen and pelvis were obtained after the administration of intravenous contrast followed by reconstruction images.This exam was performed according to our de partmental dose-optimization program, which includes automated exposure control, adjustment of the mA and/or kV according to patient size and/or use of iterative reconstruction technique. FINDINGS: Patient is status post cholecystectomy. Calcifications within the pelvis compatible with p hleboliths. Patient is status post hysterectomy. Decreased attenuation of the liver compatible with f atty infiltration. The liver, spleen, pancreas and kidneys are otherwise within normal limits. There is no hydronephrosi s or renal stones. Adrenal glands are within normal limits. Aorta is of normal caliber and tapering. There is no free fluid in the abdomen or pelvis. There is no bowel obstruction. There is no stranding of the mesenteric fat to suggest an inflammatory response. The appendix is within normal limits. The re is no pericecal inflammation. IMPRESSION: No acute intra-abdominal abnormality Electronically signed by: Perfecto Serra MD 12/07/2019 10:33 PM CDT Due to temporary technical issues with the PACS/Fluency reporting system, reports are being signed by the in house radiologist without review as a courtesy to ensure prompt reporting. The interpreting r adiologist is fully responsible for the content of the report.
--- NOTE | 2019-12-09 07:17 | EKG ---
Test Date: 2019-12-07 Test Time: 21:30:09 Wagon Washer: JUANI MEASUREMENT RESULTS: Intervals: Rate: 84 WA: 148 QRSD: 88 QT: 372 QTc: 439 [place]: P: 35 WA: 148 QRS: 70 T: 43 INTERPRETIVE STATEMENTS: Normal sinus rhythm Normal ECG Compared to ECG 09/23/2019 11:06:08 No significant changes Electronically Signed On 12-09-19 07:15:18 CDT by Jeff Rapp
== END 2019-12-07 23:13 | disposition home or self-care (01) ==
LOC: ER 20:31
DX: N39.0 Urinary tract infection, site not specified (principal)
CPT/HCPCS: 96361; 93005; 87088; 85025; 87086; 80048; 36415; 80076; 83690; 74177; 96375; 96374; 99284; Q9967; J7030; J2405; 81003; 81015

== ENCOUNTER 2020-02-15 13:46 | Emergency (ER) | payer OTHER ==
--- OUTSIDE RECORDS SUMMARY | 2020-02-15 13:48 | XMS REPORT | Continuity of Care Document ---
:1970 Author Organization Formerly [facility] t Address [address] [place] [address] Care Team Providers Name Role Phone Sharplion [...] St stress stress [facility] - reaction reaction [facility] ent [facility] Allergies, Adverse Reactions, Alerts This patient has no known allergies or adverse reactions. Social History Social Habit Start Date Stop Date Quantity Comments Source Sex Assigned At [facility] Smoking Status Start Date Stop Date Source Never smoker [facility] Medications Ordered Filled Start Stop Current Ordering Indication Dosage Frequency Signature Comments Components Source Medication Medication Date Date Medication? Clinician (SIG) Name Name Sertraline Sertraline 2018-06 Yes Na Benjamin [address] [facility] HCl HCl 2-24 [facility] - 00:00: [address] empaglifloz 2016-06 Yes 10mg QD Take 10 [...] Medical 12 times Center daily before meals. Metformin Metformin Yes Na Benjamin [address] [facility] HCl HCl with a [facility] - meal [facility] Immunizations Ordered Filled Immunization Date Status Comments Sourc e Immunization Name Name Flucelvax - Flucelvax - 2019-03-[address] [facility] - multidose vial multidose vial 00:00:00 [facility] Outpatient Clinics Procedures This patient has no known procedures. Encounters Start End Encounter Admission Attending Care Care Encounter Source Date/Time Date/Time Type Type Clinicians Facility Department ID 2020-01-26 2020-01-26 Outpatient Jam Rivera [id number] [facility] 14:36:00 14:36:[facility] Medicine Medicine [facility] 2020-01-24 2020-01-24 [facility] [id number] [address] 13:45:00 13:45:00 [place] [employer] [facility] [employer] [facility] Medicine Medicine Outpati ent Clinics 2020-01-19 2020-01-19 [facility] [id number] [address] 08:40:00 08:40:00 [place] [employer] [facility] - [facility] Medicine l Medicine Outpati ent Clinics 2020-01-18 2020-01-18 [facility] [id number] [address] 15:20:00 15:20:00 [place] [employer] [facility] [employer] [facility] Medicine l Medicine Outpati ent Clinics 2020 2020 [facility] [id number] [facility] [address] 14:44:00 14:44:00 [place] [employer] [facility] l Medicine Outpati ent Clinics 2020 2020 [facility] [id number] 09:39:00 09:39:00 [place] [employer] [facility] Medicine l Medicine Outpati ent Clinics 2019-12-24 2019-12-24 [facility] [id number] [address] 17:41:00 17:41:00 [place] [employer] [facility] l Medicine Outpati ent Clinics 2019-12-21 2019-12-21 [facility] [id number] 09:20:00 09:20:00 t [employer] [facility] Medicine l Medicine Outpati ent Clinics 2019-10-27 2019-10-27 [facility] [id number] [address] 14:08:00 14:08:00 [place] [employer] [facility] l Medicine Outpati ent Clinics 2019-10-13 2019-10-13 [facility] [id number] [address] 11:40:00 11:40:00 [place] [employer] [facility] l Medicine Outpati ent Clinics 2019-10-04 2019-10-04 [facility] [id number] 08:00:00 08:00:00 [place] [employer] [facility] l Medicine Outpati ent Clinics 2019-08-26 2019-08-26 [facility] [id number] [address] 09[facility]30:00 09:30:00 [place] [employer] s - Drive [facility] Medicine l Medicine Outpati ent Clinics 2019-08-25 2019-08-25 [facility] [id number] [address] 11:51:00 11:51:00 [place] [employer] s - Drive [facility] Medicine l Medicine Outpati ent Clinics 2019-08-24 2019-08-24 [facility] [id number] [address] 14:40:00 14:40:00 [place] [employer] s - Drive [facility] Medicine l Medicine Outpati ent Clinics 2019-08-17 2019-08-17 [facility] [id number] 11:59:00 11:59:00 [place] [employer] [facility] Medicine l Medicine Outpati ent Clinics 2019-07-05 2019-07-05 [facility] [id number] 16:00:00 16:00:00 [place] [employer] [facility] [employer] [facility] Medicine l Medicine Outpati ent Clinics 2019-06-22 2019-06-22 [facility] [id number] [address] 11:53:00 11:53:00 [place] [employer] [facility] Medicine l Medicine Outpati ent Clinics 2019-06-22 2019-06-22 [facility] [id number] [address] 10:22:00 10:22:00 [place] [employer] [facility] [employer] [facility] Medicine l Medicine Outpati ent Clinics 2019-05-24 2019-05-24 [facility] [id number] 10:00:00 10:00:00 [place] [employer] s - Drive [facility] Medicine l Medicine Outpati ent Clinics 2019-05-05 2019-05-05 [facility] [id number] 15:44:00 15:44:00 [place] [employer] [facility] [employer] [facility] Medicine l Medicine Outpati ent Clinics 2019-05-04 2019-05-04 [facility] [id number] [address] 15:20:00 15:20:00 [facility] 2019-04-27 2019-04-27 [facility] [id number] [address] 17:18:00 17:18:00 [facility] 2019-04-26 2019-04-26 [facility] [id number] [address] 17:24:00 17:24:00 [facility] ent [facility] 2019-04-20 2019-04-20 [facility] [id number] [facility] 08:27:00 08:27:00 [facility] 2019-04-12 2019-04-12 [facility] [id number] 11:00:00 11:00:00 [facility] 2019-03-30 2019-03-30 [facility] [id number] 14:00:00 14:00:00 [facility] Results Test Description Test Time Test Comments Results Result [facility] e Comments MM, STEREOTACTIC 2017-04-30 Reason for Addendum BeginsMRN#: BIOPSY, BREAST, 5 Exam:->calcificati [id number]: LEFT 15:59:00 on 05/14/2017 Lizzette Velásquez M.D. 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 Addendum EndsMRN#: [id number] - MM, STEREOTACTIC BIOPSY, BREAST, LEFTSTEREOTACTIC GUIDED [...] correct location, five specimens were obtained using Scope 5IVA device. A clip was inserted into the [...] the calcifications. Lizzette Velásquez M.D. pth/penrad:05/09/2017 11:07:57 Shuttle Driver: Felicia Rizzo RT(R)(M), [facility] [id number] UE EXAM 2017-04-30 Surgical Pathology 3 Report 12:48:00 Case: [id number] Authorizing Provider: Lizzette Velásquez MD Collected: 05/09/2017 1110 Order[address] Location: [facility] Received: 05/09/2017 1312 Pathologist: Jackie Maradiaga MD Specimen: Breast, Left, LEFT MIDDLE 12 BREAST CALCIFICATION BREAST, LEFT, MIDDLE 12 O'CLOCK, CALCIFICATIONS, STEREOTACTIC CORE NEEDLE BIOPSY: - HYALINIZED FIBROADENOMA - COLUMNAR CELL HYPERPLASIA - COLUMNAR CELL CHANGES - MICROCALCIFICATIONS, COARSE, ASSOCIATED WITH FIBROADENOMA Signing Pathologist Direct Phone Line: [phone] ally signed by Jackie Maradiaga MD on 05/12/2017 at 12:48 PMIn the sections examined, no atypical hyperplasia or carcinoma is identified.907[address]Qiddip sing lesion Left middle 12 o'clock breast calcifications The specimen is received in a formalin-filled container labeled with the patient's information and labeled "left middle 12 o'clock breast calcifications" and consists of multiple yellow-white breast core biopsies ranging in length from 0.6 to 2.5 cm.Ink code: Black.The specimen is submitted entirely in A1 and A2. CG/ewPerformed.[facility], Department of Pathology, [address], [place] [address], MM, DIGITAL, 2017-04-30 Left breast MRN#: UNILATERAL, 0 calcifications [id number] - CONFER MARTA, 11:07:00 MM, DIGITAL, MAMMO, [...] pathology results. Lizzette Velásquez M.D. pth/:05/09/2017 11:07:15 Shuttle Driver: Felicia IRVIN (R)), [facility] Mammogram BI-RADS: Post-procedure mammogram for marker placement [id number] , MAMMO, 2017-04-30 Reason for MRN#: SPECIMEN, 0 exam:->Left breast [id number] - RADIOGRAPH, LEFT 11:06:00 calcifications MM, MAMMO, SPECIMEN, RADIOGRAPH, LEFTSPECIMEN LEFT BREAST: 05/09/2017Five stereotactic guided biopsy specimens were imaged for the area of calcifications located in the left breast at 12 o'clock middle depth. IMPRESSION: SPECIMENThe imaged specimens includes the calcifications. Lizzette Velásquez M.D. pth/:05/09/2017 11:06:40 Shuttle Driver: Felicia BELLA (R)(Phil), [facility] [id number]
--- OUTSIDE RECORDS SUMMARY | 2020-02-15 13:48 | XMS REPORT | Clinical Summary ---
:1970 Author Organization [facility] Address [address] [place] [address] Care Team Providers Name Role Phone Dolores [...] Not on file Results Not on fileafter 02/14/2019 Insurance Payer Benefit Plan / Group Subscriber ID Type Phone A [facility] xxxxxxxxxxxx HMO/POS CHOICE EXCHANGE (Work) [id number]
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
--- OUTSIDE RECORDS SUMMARY | 2020-02-15 13:49 | XMS REPORT ---
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 Assessment Microscopic hematuria R31.29 Active Assessment Yeast vaginitis B37.3 Active Assessment Heat intolerance R68.89 Active Assessment Dysuria R30.0 Active Problem Uncontrolled type 2 diabetes E11.65 Active mellitus with hyperglycemia Medications Medication Code Code Instructions Start End Status Dosage System Date Date BusPIRone HCl ND 45169469069 5 MG Orally Active 1 tablet every 6 hours prn anixety NovoFine Plus ND 07528784420 32G X 4 MM SC Active as directed once daily Metformin HCl NDC 04200668971 500 MG Orally Active 2 tablet twice a day with a meal BD Pen Needle ND 96405210270 32G X 4 MM SC Active as directed Kylie 2nd Gen once daily Duloxetine HCl ND 36669419992 30 MG Orally Active 1 capsule Once a day Fluticasone ND 94165368153 50 MCG/ACT Apr 16, Active 1 spr ay in Propionate Nasally Once a 2019 each n ostril day FreeStyle Tay ND 34316521303 - Active USE 14 Day Sensor DIRECTED EVERY [address] [facility] 03341828620 200 UNIT/ML Active 40 units in FlexTouch Subcutaneous pm titrat e once a day up 2 units every 3 days until fbg less 100 (max of 60 units daily) Fluconazole ND 28881151059 150 MG Orally 1 December 20November Active 1 tablet dose today, october 2019, repeat dose in 2019 1 week Glimepiride ND 97515341410 4 MG Orally Active 1 ta blet Once a day with breakfast or the first main meal of the day Xanax [facility] 77232556468 0.5 MG Orally Active 1 tabl et once a day prn anxiety attacks Sertraline HCl ND 46096632061 100 MG Orally Active 2 tablets Once a day FreeStyle Tay [facility] 73142193308 - daily Active as directed 14 Day [place] Gabapentin [facility] 07885265551 300 MG Orally Active 1 c apsule three times a day Levemir [facility] 55116090696 100 UNIT/ML August Active 22 units FlexTouch Subcutaneous 2019 daily an d daily titrate up 2 units every 2 days until FBG less 120 max of 50 units daily Omeprazole ND 88593061349 40 MG Orally Active 1 ca psule Once a day Results Name Result Date Reference Range Unit Abnormali ty Flag URINALYSIS AUTO W/O SCOPE (24639) ----MADY neg 20191221 ----NIT neg 20191221 ----PROTEIN neg 20191221 ----pH 5.5 20191221 ----GLUCOSE 3+ 20191221 ----KETONES neg 20191221 ----SPECIFIC GRAVITY 1.025 20191221 ----BLO trace-lysed 20191221 Urine Culture,Comprehensive ----Urine Final report [id number] Culture,Comprehensive Summary Purpose eClinicalWorks Submission
--- OUTSIDE RECORDS SUMMARY | 2020-02-15 13:49 | XMS REPORT ---
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 Problem Fatty liver K76.0 Active Problem Depression with anxiety F41.8 Acti ve Assessment Uncontrolled type 2 diabetes E11.65 Active mellitus with hyperglycemia Assessment Depression with anxiety F41.8 Acti ve Problem Uncontrolled type 2 diabetes E11.65 Active mellitus with hyperglycemia Problem Panic disorder [episodic paroxysmal F41.0 Active anxiety] Problem Acute stress reaction F43.0 Active Problem Gastroesophageal reflux disease, K21.9 Active esophagitis presence not specified Problem Decreased mobility R26.89 Active Problem Seasonal allergies J30.2 Active Problem Mixed hyperlipidemia E78.2 Active Problem Vitamin D deficiency E55.9 Active Medications Medication Code Code Instructions Start End Status Dosage System Date Date Sertraline HCl [facility] 71510042954 100 MG Orally Active 2 tablets Once a day Metformin HCl [facility] 72544638190 500 MG Orally Active 2 tablet twice a day with a meal Results No Known Results Summary Purpose eClinicalWorks Submission
[2020-02-15 14:52] LABS: Absolute Lymphocytes (CBC) 2.2 K/uL (0.7-4.9); Basophils % 1.1 % (0-1.3); Lymphocytes % 27.2 % (15.3-44.8); MPV 8.6 fL (7.6-11.3); RBC Red Blood Cell Count 4.49 M/uL (3.86-4.86)
[2020-02-15] MEDS ORDERED: ONDANSETRON 4 MG/2 ML VIAL ONE (14:55)
[2020-02-15] MEDS ORDERED: MEPERIDINE HCL 50 MG/ML ONE (14:55)
[2020-02-15] MEDS ORDERED: NA CHLORIDE 0.9% 500 ML ONE (14:56)
[2020-02-15 15:06] LABS: ALT/SGPT 27 U/L (12-78); AST/SGOT 22 U/L (15-37); Albumin 3.6 g/dL (3.4-5.0); Alkaline Phosphatase 86 U/L (45-117); BUN Blood Urea Nitrogen 11 mg/dL (7-18); Bicarbonate 30 mmol/L (21-32); Bilirubin Direct 0.1 mg/dL (0-0.2); Bilirubin Total 0.4 mg/dL (0.2-1.0); Glucose Level 80 mg/dL (74-106); Lipase 308 U/L (73-393); Potassium 3.8 mmol/L (3.5-5.1); Protein, Total 7.8 g/dL (6.4-8.2); Sodium Level 140 mmol/L (136-145)
[2020-02-15] MEDS ORDERED: MORPHINE 4 MG/ML SYR ONE ×2 (15:20→17:04)
--- NOTE | 2020-02-15 16:29 | RAD REPORT ---
EXAM DESCRIPTION: CT - Abdomen Pelvis W Contrast - 02/15/2020 3:51 pm CLINICAL HISTORY: Abdominal pain COMPARISON: November 2019 TECHNIQUE: Computed axial tomography of the abdomen pelvis was obtained. 100 cc Isovue-300 was admin istered intravenously. Oral contrast was not requested which limits evaluation of bowel. All CT scans are performed using dose optimization technique as appropriate and may include automated exposure control or mA/KV adjustment according to patient size. FINDINGS: Mild fatty liver. Spleen, pancreas, adrenal and kidneys appear unremarkable. There is no evidence of diverticulitis. Normal appendix Hysterectomy. Cholecystectomy. Small umbilical hernia IMPRESSION: No acute abnormality is displayed.
[2020-02-15] MEDS ORDERED: MAGNE/ALUM HYDROXD 30 ML UCUP ONE (17:03)
[2020-02-15] MEDS ORDERED: FAMOTIDINE 20 MG/2 ML VIAL IV ONE (17:04)
[2020-02-15] MEDS ORDERED: LIDOCAINE VISCOUS 2% SOLN 15 ML UDC ONE (17:06)
--- NOTE | 2020-02-15 18:01 | ER ---
Nurse's Notes [facility] Name: Dena Nance Age: 50 yrs Sex: Female : 1970 Arrival Date: 02/15/2020 Time: 13:48 Bed 26 Private MD: Anette Benjamin Diagnosis: Upper abdominal pain, unspecified Presentation: 02/14 14:18 Chief complaint: Patient states: Hx of pancreatitis and diverticulitis. C/O LUQ pain ca1 radiating to the back since this morning. Feeling bloated and increase in abdl girth. since last night. Reports nausea. Denies vomiting, diarrhea and constipation. Coronavirus screen: Client denies travel out of the [place] in the last 14 days. At this time, the client does not indicate any symptoms associated with coronavirus-19. Ebola Screen: Patient negative for fever greater than or equal to 101.5 degrees Fahrenheit, and additional compatible Ebola Virus Disease symptoms Patient denies exposure to infectious person. Patient denies travel to an Ebola-affected area in the 21 days before illness onset. No symptoms or risks identified at this time. Initial Sepsis Screen: Does the patient meet any 2 criteria? No. Patient's initial sepsis screen is negative. Does the patient have a suspected source of infection? No. Patient's initial sepsis screen is negative. Risk Assessment: Do you want to hurt yourself or someone else? Patient reports no desire to harm self or others. Onset of symptoms was February 15, 2020. 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 - Social history:: Smoking status: Patient denies any tobacco usage or history of. - Family history:: not pertinent. - Hospitalizations: : No recent hospitalization is reported. Screenin:05 Abuse screen: Denies threats or abuse. Nutritional screening: No deficits noted. jd3 Tuberculosis screening: No symptoms or risk factors identified. Fall Risk Ambulatory Aid- None/Bed Rest/Nurse Assist (0 pts). Gait- Normal/Bed Rest/Wheelchair (0 pts) Mental Status- Oriented to own ability (0 pts). Total Scott Fall Scale indicates No Risk (0-24 pts). Assessment: 14:20 General: Appears in no apparent distress. uncomfortable, Behavior is calm, cooperative, jd3 appropriate for age. Pain: Complains of pain in right upper quadrant and left upper quadrant Quality of pain is described as sharp, tender. Neuro: Level of Consciousness is awake, alert, obeys commands, Oriented to person, place, time, situation. Cardiovascular: Denies chest pain, Capillary refill < 3 seconds Patient's skin is warm and dry. Respiratory: Airway is patent Respiratory effort is even, unlabored, Respiratory pattern is regular, symmetrical, Denies cough, shortness of breath. GI: Abdomen is round distended, Bowel sounds present X 4 quads. Abd is soft X 4 quads Abdomen is tender to palpation X 4 quads. Reports nausea, Patient currently denies constipation, diarrhea. : No signs and/or symptoms were reported regarding the genitourinary system. EENT: No signs and/or symptoms were reported regarding the EENT system. Derm: Skin is intact, Skin is dry, Skin is normal, Skin temperature is warm. Musculoskeletal: Circulation, motion, and sensation intact. Range of motion: intact in all extremities. 15:12 Reassessment: Patient appears in no apparent distress at this time. No changes from jd3 previously documented assessment. Patient and/or family updated on plan of care and expected duration. Pain level reassessed. Patient is alert, oriented x 3, equal unlabored respirations, skin warm/dry/pink. 16:07 Reassessment: Patient appears in no apparent distress at this time. Patient and/or jd3 family updated on plan of care and expected duration. Pain level reassessed. Patient is alert, oriented x 3, equal unlabored respirations, skin warm/dry/pink. pt reporting continued pain, provider notified. 17:04 Reassessment: Patient appears in no apparent distress at this time. Patient and/or jd3 family updated on plan of care and expected duration. Pain level reassessed. Patient is alert, oriented x 3, equal unlabored respirations, skin warm/dry/pink. pt medicated per order, see MAR. 18:07 Reassessment: Patient appears in no apparent distress at this time. Patient and/or jd3 family updated on plan of care and expected duration. Pain level reassessed. Patient is alert, oriented x 3, equal unlabored respirations, skin warm/dry/pink. Patient states feeling better. Vital Signs: 14:18 BP 113 / 67; Pulse 84; Resp 17 S; Temp 97.1(TE); Pulse Ox 98% on R/A; Weight 71.67 kg ca1 (R); Height 5 ft. 4 in. (162.56 cm) (R); Pain 10/10; 15:12 BP 113 / 67; Pulse 81; Resp 16 S; Pulse Ox 98% on R/A; jd3 16:09 BP 138 / 71; Pulse 84; Resp 17 S; Pulse Ox 97% on R/A; jd3 17:05 BP 121 / 71; Pulse 82; Resp 17 S; Pulse Ox 98% on R/A; jd3 18:07 BP 116 / 64; Pulse 80; Resp 16 S; Pulse Ox 99% on R/A; jd3 14:18 Body Mass Index 27.12 (71.67 kg, 162.56 cm) ca1 ED Course: 13:48 Patient arrived in ED. rg4 13:48 Anette Benjamin MD is Private Physician. rg4 14:14 Roberto Alejo MD is Attending Physician. rn 14:19 Jin Gonzalez, SHADE is Primary Nurse. jd3 14:21 Triage completed. ca1 14:21 Arm band placed on right wrist. ca1 14:26 Inserted saline lock: 20 gauge in right antecubital area, using aseptic technique. jd3 Blood collected. 15:51 CT Abd/Pelvis - IV Contrast Only In Process Unspecified. EDMS 17:05 Patient has correct armband on for positive identification. Placed in gown. Bed in low jd3 position. Call light in reach. Side rails up X2. Pulse ox on. NIBP on. 18:08 No provider procedures requiring assistance completed. IV discontinued, intact, jd3 bleeding controlled, No redness/swelling at site. Pressure dressing applied. Administered Medications: 14:49 Drug: Demerol 25 mg Route: IVP; Site: right antecubital; jd3 15:49 Follow up: Response: No adverse reaction; RASS: Alert and Calm (0) jd3 14:49 Drug: Zofran (Ondansetron) 4 mg Route: IVP; Site: right antecubital; jd3 15:49 Follow up: Response: No adverse reaction jd3 14:49 Drug: NS 0.9% 500 ml Route: IV; Rate: bolus; Site: right antecubital; jd3 15:45 Follow up: Response: No adverse reaction; IV Status: Completed infusion; IV Intake: jd3 500ml 15:12 Drug: morphine 4 mg Route: IVP; Site: right antecubital; jd3 16:10 Follow up: Response: No adverse reaction; RASS: Alert and Calm (0) jd3 17:03 Drug: Pepcid 20 mg Route: IVP; Site: right antecubital; jd3 18:00 Follow up: Response: No adverse reaction jd3 17:03 Drug: morphine 4 mg Route: IVP; Site: right antecubital; jd3 18:00 Follow up: Response: No adverse reaction; RASS: Alert and Calm (0) jd3 17:04 Drug: GI Cocktail without - (Maalox Suspension 30 ml, Lidocaine Liquid 2 % 15 jd3 ml) Route: PO; 18:00 Follow up: Response: No adverse reaction jd3 Intake: 15:45 IV: 500ml; Total: 500ml. jd3 Outcome: 17:59 Discharge ordered by . rn 18:08 Discharged to home ambulatory, with family. jd3 18:08 Condition: stable 18:08 Discharge instructions given to patient, Instructed on discharge instructions, follow up and referral plans. medication usage, Demonstrated understanding of instructions, follow-up care, medications, Prescriptions given X 1. 18:12 Patient left the ED. jd3 Signatures: Dispatcher [employer] EDMS Roberto Alejo MD MD rn Garcia, Rubi rg4 Davies, Jonathon, RN RN jd3 Windy Narvaez RN RN ca1
--- NOTE | 2020-02-15 18:01 | EDPHYS ---
Physician Documentation [facility] Name: Dena Nance Age: 50 yrs Sex: Female : 1970 Arrival Date: 02/15/2020 Time: 13:48 Bed 26 Private MD: Anette Benjamin ED Physician Roberto Alejo HPI: 02/14 14:35 This 50 yrs old Female presents to ER via Ambulatory with complaints of rn Abdominal Pain, Abdominal Swelling. 14:35 The patient presents with abdominal pain in the epigastric area. Onset: The rn symptoms/episode began/occurred last night. The symptoms do not radiate. Associated signs and symptoms: Pertinent positives: nausea, Pertinent negatives: blood in stools, chest pain, constipation, diarrhea, fever, shortness of breath, vomiting. The symptoms are described as achy, crampy. Modifying factors: The symptoms are alleviated by nothing, the symptoms are aggravated by touching the area. Severity of pain: At its worst the pain was moderate in the emergency department the pain is unchanged. The patient has experienced similar episodes in the past. Reports upper abd pain, began last night with bloating and pain this morning, + nausea, similar to both her previous pancreatitis and diverticulitis episodes. . 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 - Social history:: Smoking status: Patient denies any tobacco usage or history of. - Family history:: not pertinent. - Hospitalizations: : No recent hospitalization is reported. ROS: 14:35 Constitutional: Negative for fever, chills, and weight loss, Eyes: Negative for injury, rn pain, redness, and discharge, Cardiovascular: Negative for chest pain, palpitations, and edema, Respiratory: Negative for shortness of breath, cough, wheezing, and pleuritic chest pain, Abdomen/GI: Negative for vomiting, diarrhea, and constipation, MS/Extremity: Negative for injury and deformity, Skin: Negative for injury, rash, and discoloration, Neuro: Negative for headache, weakness, numbness, tingling, and seizure. Exam: 14:35 Constitutional: This is a well developed, well nourished patient who is awake, alert, rn and in no acute distress. Head/Face: Normocephalic, atraumatic. Cardiovascular: Regular rate and rhythm. No pulse deficits. Respiratory: No increased work of breathing, no retractions or nasal flaring. Abdomen/GI: Soft, mild tenderness epigastric/LUQ, no rebound, no masses Skin: Warm, dry MS/ Extremity: Pulses equal, no cyanosis. Neuro: Awake and alert, GCS 15 Vital Signs: 14:18 BP 113 / 67; Pulse 84; Resp 17 S; Temp 97.1(TE); Pulse Ox 98% on R/A; Weight 71.67 kg ca1 (R); Height 5 ft. 4 in. (162.56 cm) (R); Pain 10/10; 15:12 BP 113 / 67; Pulse 81; Resp 16 S; Pulse Ox 98% on R/A; jd3 16:09 BP 138 / 71; Pulse 84; Resp 17 S; Pulse Ox 97% on R/A; jd3 17:05 BP 121 / 71; Pulse 82; Resp 17 S; Pulse Ox 98% on R/A; jd3 18:07 BP 116 / 64; Pulse 80; Resp 16 S; Pulse Ox 99% on R/A; jd3 14:18 Body Mass Index 27.12 (71.67 kg, 162.56 cm) ca1 MDM: 14:14 Patient medically screened. rn 17:56 Differential diagnosis: diverticulitis, gastritis, gastroesophageal reflux disease, rn non-specific abd pain, pancreatitis, Peptic Ulcer Disease. Data reviewed: vital signs, nurses notes. 17:57 Counseling: I had a detailed discussion with the patient and/or guardian regarding: the rn historical points, exam findings, and any diagnostic results supporting the discharge/admit diagnosis, lab results, radiology results, the need for outpatient follow up, to return to the emergency department if symptoms worsen or persist or if there are any questions or concerns that arise at home. Response to treatment: the patient's symptoms have markedly improved after treatment, and as a result, I will discharge patient. Special discussion: Based on the patient's Hx, exam, and Dx evaluation, there is no indication for emergent surgery or inpatient Tx. It is understood by the patient/guardian that if the Sx's persist or worsen they need to return immediately for re-evaluation. Based on the history and exam findings, there is no indication for further emergent testing or inpatient evaluation. 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 ED course: Pt improved, no acute findings on ct abdomen or bloodwork. Possibly acid related illness, feels better, recommend antacids and GI f/u. return precautions given and understood. result sprinted for her to discuss with her GI doctor.. 02/14 14:26 Order name: Basic Metabolic Panel; Complete Time: 15:08 rn 02/14 14:26 Order name: CBC with Diff; Complete Time: 15:08 rn 02/14 14:26 Order name: Hepatic Function; Complete Time: 15:08 rn 02/14 14:26 Order name: Lipase; Complete Time: 15:08 rn 02/14 14:26 Order name: CT Abd/Pelvis - IV Contrast Only; Complete Time: 16:35 rn 02/14 14:26 Order name: IV Saline Lock; Complete Time: 14:42 rn 02/14 14:26 Order name: Labs collected and sent; Complete Time: 14:42 rn Administered Medications: 14:49 Drug: Demerol 25 mg Route: IVP; Site: right antecubital; jd3 15:49 Follow up: Response: No adverse reaction; RASS: Alert and Calm (0) jd3 14:49 Drug: Zofran (Ondansetron) 4 mg Route: IVP; Site: right antecubital; jd3 15:49 Follow up: Response: No adverse reaction jd3 14:49 Drug: NS 0.9% 500 ml Route: IV; Rate: bolus; Site: right antecubital; jd3 15:45 Follow up: Response: No adverse reaction; IV Status: Completed infusion; IV Intake: jd3 500ml 15:12 Drug: morphine 4 mg Route: IVP; Site: right antecubital; jd3 16:10 Follow up: Response: No adverse reaction; RASS: Alert and Calm (0) jd3 17:03 Drug: Pepcid 20 mg Route: IVP; Site: right antecubital; jd3 18:00 Follow up: Response: No adverse reaction jd3 17:03 Drug: morphine 4 mg Route: IVP; Site: right antecubital; jd3 18:00 Follow up: Response: No adverse reaction; RASS: Alert and Calm (0) jd3 17:04 Drug: GI Cocktail without - (Maalox Suspension 30 ml, Lidocaine Liquid 2 % 15 jd3 ml) Route: PO; 18:00 Follow up: Response: No adverse reaction jd3 Disposition: 02/15/20 17:59 Discharged to Home. Impression: Upper abdominal pain, unspecified. - Condition is Stable. - Discharge Instructions: Abdominal Pain, Adult, Pain Without a Known Cause. - Prescriptions for Protonix 40 mg Oral Tablet - take 1 tablet by ORAL route once daily; 30 tablet. - Medication Reconciliation Form, Thank You Letter, Antibiotic Education, Prescription Opioid Use form. - Follow up: Private Physician; When: As needed; Reason: Recheck today's complaints, Re-evaluation by your physician. - Problem is new. - Symptoms have improved. Signatures: Dispatcher [employer] EDMS Roberto Alejo MD MD rn Davies, Jonathon, RN RN j Brice, SHADE Temple RN ca1 Corrections: (The following items were deleted from the chart) 18:12 17:59 02/15/2020 17:59 Discharged to Home. Impression: Upper abdominal pain, jd3 unspecified. Condition is Stable. Forms are Medication Reconciliation Form, Thank You Letter, Antibiotic Education, Prescription Opioid Use. Follow up: Private Physician; When: As needed; Reason: Recheck today's complaints, Re-evaluation by your physician. Problem is new. Symptoms have improved. rn
[2020-02-15 19:23] VITALS: TEMP 97.1
[2020-02-15 19:28] VITALS: BP 116/64; O2SAT 99
== END 2020-02-15 18:12 | disposition home or self-care (01) ==
LOC: ER 13:46
DX: R10.13 Epigastric pain (principal)
CPT/HCPCS: 85025; 80048; 36415; 80076; 83690; 74177; Q9967; J2175; J7040; J2405

== ENCOUNTER 2020-04-04 16:13 | Emergency (ER) | payer OTHER ==
--- NOTE | 2020-04-04 17:23 | RAD REPORT ---
EXAM DESCRIPTION: CT - [id number] - 04/04/2020 5:08 pm CLINICAL HISTORY: PAIN, fall with head and neck injury COMPARISON: C Spine Wo Con dated 03/15/2017 TECHNIQUE: Axial 5 mm thick images of the head were obtained. Axial 2 mm thick images of the cervic al spine were obtained with sagittal and coronal reconstruction images generated and reviewed. All CT scans are performed using dose optimization technique as appropriate and may include automated exposure control or mA/KV adjustment according to patient size. FINDINGS: No intracranial hemorrhage, mass, edema or acute intracranial finding. No suspicion for ac ely shoshone infarction. No extra-axial fluid collections. Mastoid air cells and paranasal sinuses are clear. No globe or orbit abnormality seen. Ventricles are normal. Cervical body height and alignment are normal. No disk space narrowing. No fracture or acute bony abn ormality. Central canal detail is inherently limited. No paraspinal mass or hematoma. IMPRESSION: Negative CT head examination for acute or significant finding. Negative CT cervical spine examination for acute or significant finding.
--- NOTE | 2020-04-04 17:37 | EDPHYS ---
Physician Documentation [facility] Name: Dena Nance Age: 50 yrs Sex: Female : 1970 Arrival Date: 04/04/2020 Time: 16:16 Bed 14 Private MD: ED Physician Roberto Alejo HPI: 04/04 16:35 This 50 yrs old Female presents to ER via EMS with complaints of Neck Injury. cp 16:35 The patient or guardian complains of pain, that is acute. cp 16:35 The symptoms are located at the C4 and C5. Onset: The symptoms/episode began/occurred cp just prior to arrival. Context: The neck injury/problem resulted from a fall, backward and striking head and neck against ledge of window. Associated signs and symptoms: Pertinent negatives: LOC. Historical: - Allergies: 18:36 NKA; sv - PMHx: 18:36 Diabetes - IDDM; Diverticulitis; fatty liver; Pancreatitis; sv - Immunization history:: Adult Immunizations up to date. - Social history:: Smoking status: Patient denies any tobacco usage or history of. ROS: 16:40 Neck: Positive for pain with movement. cp 16:40 Constitutional: Negative for fever. cp 16:40 Cardiovascular: Negative for chest pain, palpitations. 16:40 Respiratory: Negative for cough, shortness of breath, wheezing. 16:40 MS/extremity: Negative for decreased range of motion, deformity. 16:40 Neuro: Negative for altered mental status, loss of consciousness, syncope, weakness. 16:40 All other systems are negative. Exam: 16:45 Constitutional: The patient appears in no acute distress, alert, awake, cp non-diaphoretic, non-toxic, well developed, well nourished. 16:45 Head/Face: Normocephalic, atraumatic. cp 16:45 Eyes: Periorbital structures: appear normal, Pupils: equal, round, and reactive to light and accomodation, Extraocular movements: intact throughout, Conjunctiva: normal, no exudate, no injection, Sclera: no appreciated abnormality, Lids and lashes: appear normal, bilaterally. 16:45 ENT: External ear(s): are unremarkable, Ear canal(s): are normal, clear, TM's: dullness, bilaterally, Nose: is normal, Posterior pharynx: Airway: no evidence of obstruction, patent. 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 16:45 Chest/axilla: Inspection: normal, Palpation: is normal, no crepitus, no tenderness. 16:45 Cardiovascular: Rate: normal, Rhythm: regular. 16:45 Respiratory: the patient does not display signs of respiratory distress, Respirations: normal, no use of accessory muscles, no retractions, labored breathing, is not present, Breath sounds: are clear throughout, no decreased breath sounds, no stridor, no wheezing. 16:45 Abdomen/GI: Inspection: abdomen appears normal, Bowel sounds: active, all quadrants, Palpation: abdomen is soft and non-tender, in all quadrants. 16:45 Back: pain, that is very mild, of the lumbar area, ROM is normal. 16:45 Musculoskeletal/extremity: Exam is negative for decreased range of motion, deformity, injury. 16:45 Neuro: Orientation: to person, place \T\ time. Mentation: is normal, Cerebellar function: is grossly normal, Motor: moves all fours, strength is normal, Sensation: is normal. Vital Signs: 16:15 BP 138 / 67; Pulse 85; Resp 16; Temp 98; Pulse Ox 97% on R/A; Weight 77.11 kg; Height 5 sv ft. 5 in. (165.10 cm); 17:30 BP 130 / 70; Pulse 82; Resp 16; Pulse Ox 99% ; sv 16:15 Body Mass Index 28.29 (77.11 kg, 165.10 cm) sv MDM: 16:31 Patient medically screened. cp 17:00 Differential diagnosis: C-Spine Fracture cervical strain, fracture, Whiplash Injury. cp 17:35 Data reviewed: vital signs, nurses notes, radiologic studies, CT scan. cp 17:35 Counseling: I had a detailed discussion with the patient and/or guardian regarding: the cp historical points, exam findings, and any diagnostic results supporting the discharge/admit diagnosis, radiology results, to return to the emergency department if symptoms worsen or persist or if there are any questions or concerns that arise at home. Response to treatment: the patient's symptoms have markedly improved after treatment, and as a result, I will discharge patient. 04/04 16:31 Order name: CT Head C Spine; Complete Time: 17:28 cp Administered Medications: 18:02 Drug: Ibuprofen 800 mg Route: PO; sv 18:42 Follow up: Response: No adverse reaction; Medication administered at discharge. sv 18:02 Drug: traMADol 50 mg Route: PO; sv 18:41 Follow up: Response: No adverse reaction; Medication administered at discharge. sv Disposition: 18:00 Chart complete. cp 04/05 06:58 Co-signature as Attending Physician, Roberto Alejo MD. rn Disposition: 04/04/20 17:36 Discharged to Home. Impression: Fall on same level from slipping, tripping and stumbling, Contusion of unspecified part of neck, Contusion of unspecified part of head. - Condition is Stable. - Discharge Instructions: Contusion, Head Injury, Adult. - Prescriptions for Tramadol 50 mg Oral Tablet - take 1 tablet by ORAL route every 8 hours as needed; 12 tablet. - Medication Reconciliation Form, Thank You Letter, Antibiotic Education, Prescription Opioid Use form. - Follow up: Private Physician; When: 2 - 3 days; Reason: Recheck today's complaints. - Problem is new. - Symptoms have improved. Signatures: Dispatcher [employer] Ashlyn Tony RN RN sv Nieto, Roman, MD MD rn Page, Corey, PA PA cp Corrections: (The following items were deleted from the chart) 04/04 18:16 17:36 04/04/2020 17:36 Discharged to Home. Impression: Fall on same level from sv slipping, tripping and stumbling; Contusion of unspecified part of neck; Contusion of unspecified part of head. Condition is Stable. Forms are Medication Reconciliation Form, Thank You Letter, Antibiotic Education, Prescription Opioid Use. Follow up: Private Physician; When: 2 - 3 days; Reason: Recheck today's complaints. Problem is new. Symptoms have improved. cp
--- NOTE | 2020-04-04 17:37 | ER ---
Nurse's Notes [facility] Name: Dena Nance Age: 50 yrs Sex: Female : 1970 Arrival Date: 04/04/2020 Time: 16:16 Bed 14 Private MD: Diagnosis: Fall on same level from slipping, tripping and stumbling;Contusion of unspecified part of neck;Contusion of unspecified part of head Presentation: 04/04 16:15 Coronavirus screen: Client denies travel out of the [place] in the last 14 days. At this sv time, the client does not indicate any symptoms associated with coronavirus-19. Ebola Screen: No symptoms or risks identified at this time. Initial Sepsis Screen: Does the patient meet any 2 criteria? No. Patient's initial sepsis screen is negative. Does the patient have a suspected source of infection? No. Patient's initial sepsis screen is negative. Risk Assessment: Do you want to hurt yourself or someone else? Patient reports no desire to harm self or others. Onset of symptoms was April 04, 2020. 16:15 Method Of Arrival: EMS: [facility] 16:19 Chief complaint: EMS states: was at the [employer] station holding onto a basket and it got sv loose and she fell back against a wall and hit the back of her neck and went to the ground. c/o left thumb, left ankle, neck, and back of the head pain. C-collar placed by EMS. 16:19 Acuity: MARIANA 3 sv Triage Assessment: 16:15 General: Appears in no apparent distress. uncomfortable, well developed, Behavior is sv calm, cooperative, appropriate for age. Pain: Complains of pain in scalp and left arm and left ankle Pain currently is 5 out of 10 on a pain scale. Quality of pain is described as throbbing, Pain began 30 min ago. Is intermittent. Neuro: Level of Consciousness is awake, alert, obeys commands, Oriented to person, place, time, situation, Moves all extremities. Full function. Cardiovascular: Patient's skin is warm and dry. Respiratory: Respiratory effort is even, unlabored, Respiratory pattern is regular, symmetrical. Derm: Skin is intact, Skin is pink, warm \T\ dry. Musculoskeletal: Range of motion: intact in all extremities. Injury Description: Abrasion sustained to left wrist. Historical: - Allergies: 18:36 NKA; sv - PMHx: 18:36 Diabetes - IDDM; Diverticulitis; fatty liver; Pancreatitis; sv - Immunization history:: Adult Immunizations up to date. - Social history:: Smoking status: Patient denies any tobacco usage or history of. Screenin:20 Abuse screen: Denies threats or abuse. Denies injuries from another. Nutritional sv screening: No deficits noted. Tuberculosis screening: No symptoms or risk factors identified. Fall Risk None identified. Assessment: 17:00 Reassessment: Patient appears in no apparent distress at this time. No changes from sv previously documented assessment. Patient and/or family updated on plan of care and expected duration. Pain level reassessed. Patient is alert, oriented x 3, equal unlabored respirations, skin warm/dry/pink. 18:00 Reassessment: Patient appears in no apparent distress at this time. No changes from sv previously documented assessment. Patient and/or family updated on plan of care and expected duration. Pain level reassessed. Patient is alert, oriented x 3, equal unlabored respirations, skin warm/dry/pink. Vital Signs: 16:15 BP 138 / 67; Pulse 85; Resp 16; Temp 98; Pulse Ox 97% on R/A; Weight 77.11 kg; Height 5 sv ft. 5 in. (165.10 cm); 17:30 BP 130 / 70; Pulse 82; Resp 16; Pulse Ox 99% ; sv 16:15 Body Mass Index 28.29 (77.11 kg, 165.10 cm) sv ED Course: 16:15 Arm band placed on. sv 16:16 Patient arrived in ED. sv 16:16 Ashlyn Kaufman, RN is Primary Nurse. sv 16:20 Triage completed. sv 16:20 Patient has correct armband on for positive identification. Bed in low position. Call sv light in reach. Side rails up X2. Pulse ox on. NIBP on. Door closed. Head of bed elevated. 16:20 Maintain EMS IV. Dressing intact. Site clean \T\ dry. Gauge \T\ site: 18G R AC. sv 16:25 Ricardo Ramirez PA is PHCP. cp 16:25 Roberto Alejo MD is Attending Physician. cp 17:[address] via stretcher. sv 17:08 CT Head C Spine In Process Unspecified. EDMS 18:00 No provider procedures requiring assistance completed. IV discontinued, intact, sv bleeding controlled, No redness/swelling at site. Pressure dressing applied. Administered Medications: 18:02 Drug: Ibuprofen 800 mg Route: PO; sv 18:42 Follow up: Response: No adverse reaction; Medication administered at discharge. sv 18:02 Drug: traMADol 50 mg Route: PO; sv 18:41 Follow up: Response: No adverse reaction; Medication administered at discharge. sv Outcome: 17:36 Discharge ordered by MD. cp 18:00 Discharged to home via wheelchair, with family. sv 18:00 Condition: stable 18:00 Discharge instructions given to patient, Instructed on discharge instructions, follow up and referral plans. medication usage, Demonstrated understanding of instructions, follow-up care, medications, Prescriptions given X 1. 18:16 Patient left the ED. sv Signatures: Dispatcher [employer] EDAshlyn Lozoya RN RN sv Ricardo Ramirez PA PA cp Corrections: (The following items were deleted from the chart) 18:37 16:19 Chief complaint: EMS states: was at the [employer] station holding onto a basket and sv it got loose and she fell back against a wall and hit the back of her neck and went to the ground. c/o left thumb, left ankle, neck, and back of the head pain. sv 18:42 18:02 Response: Medication administered at discharge. sv sv 18:42 18:02 Response: Medication administered at discharge. sv sv
[2020-04-04] MEDS ORDERED: IBUPROFEN 400 MG TAB ONE (18:02)
[2020-04-04] MEDS ORDERED: TRAMADOL HCL 50 MG TAB ONE (18:02)
[2020-04-04 18:52] VITALS: TEMP 98
[2020-04-04 18:54] VITALS: BP 130/70; O2SAT 99
--- OUTSIDE RECORDS SUMMARY | 2020-04-06 16:35 | XMS REPORT | Clinical Summary ---
:1970 Author Organization [facility] Address [address] [place] [address] Care Team Providers Name Role Phone Dolores [...] Not on file Results Not on fileafter 04/05/2019 Insurance Payer Benefit Plan / Group Subscriber ID Type Phone A [facility] xxxxxxxxxxxx HMO/POS CHOICE EXCHANGE (Work) [id number]
--- OUTSIDE RECORDS SUMMARY | 2020-04-06 16:36 | XMS REPORT ---
[...] System Date Date BD Pen Needle ND 85476912700 32G X 4 MM SC Active as directed Kylie 2nd Gen once daily Silvadene ND 63650995389 1 % Externally December Active 1 a pplication twice a day , , to affected 2019 2019 area Duloxetine HCl ND 92809341916 30 MG Orally Inactive 1 capsule Once a day Sertraline HCl NDC 92136076238 100 MG Orally Active 2 tablets Once a day FreeStyle ND 14692842040 - daily Active as direct ed Tay 14 Day Laredo Omeprazole ND 46527605004 40 MG Orally Active 1 ca psule Once a day FreeStyle ND 42396072869 - Active USE Tay 14 Day DIRECTED Sensor EVERY 14 DAYS Glimepiride ND 65614972429 4 MG Orally Active 1 ta blet with Once a day breakfast or the first main meal of the day Metformin HCl NDC 78113659054 500 MG Orally Active 2 tablet with twice a day a meal Gabapentin NDC 60957028611 300 MG Orally Active 1 c apsule three times a day Levemir ND 86272038976 100 UNIT/ML August Active 22 units FlexTouch Subcutaneous 06, daily and daily 2019 titrate up 2 units every 2 days until FBG less 120 max of 50 units daily Fluticasone ND 32212115283 50 MCG/ACT Apr 16, Active 1 spr ay in Propionate Nasally Once a 2018 each n ostril day Xanax ND 26583873403 0.5MG Orally Active 1 table t once a day prn anxiety attacks Tresiba ND 38557152526 200 UNIT/ML Active 40 units in FlexTouch Subcutaneous pm titrat e up once a day 2 units every 3 days until fbg less 100 (max of 60 units daily) BusPIRone HCl ND 20320766281 5 MG Orally Active 1 tablet every 6 hours prn anixety NovoFine Plus ND 66242941926 32G X 4 MM SC Active as directed once daily Results No Known Results Summary Purpose eClinicalWorks Submission
--- OUTSIDE RECORDS SUMMARY | 2020-04-06 16:36 | XMS REPORT ---
[...] Status Dosage System Date Date Sertraline HCl [facility] 85492989367 100 MG Orally Active 2 tablets Once a day Metformin HCl [facility] 61149487354 500 MG Orally Active 2 tablet twice a day with a meal Results No Known Results Summary Purpose eClinicalWorks Submission
--- OUTSIDE RECORDS SUMMARY | 2020-04-06 16:36 | XMS REPORT | Continuity of Care Document ---
:1970 Author Organization [facility] t Address [address] [place] [address] Care Team Providers Name Role Phone Sharplion [...] with with Outpati hyperglyce hyperglyce en t [facility] Clinics Seasonal Seasonal Problem Active [facility] stress stress [facility] - reaction reaction [facility] ent [facility] Allergies, Adverse Reactions, Alerts This patient has no known allergies or adverse reactions. Social History Social Habit Start Date Stop Date Quantity Comments Source Sex Assigned At [facility] Smoking Status Start Date Stop Date Source Never smoker [facility] Medications Ordered Filled Start Stop Current Ordering Indication Dosage Frequency Signature Comments Components Source Medication Medication Date Date Medication? Clinician (SIG) Name Name Sertraline Sertraline 2018-06 Yes Na Benjamin [address] [facility] HCl HCl 2-24 [facility] - 00:00: [address] empaglifloz 2016-06 Yes 10mg QD Take [...] HCl HCl with a [facility] - meal [facility] Immunizations Ordered Filled Immunization Date Status Comments Sourc e Immunization Name Name Flucelvax - Flucelvax - 2019-03-[address] [facility] - multidose vial multidose vial 00:00:00 [facility] Outpatient [facility] Procedures This patient has no known procedures. Encounters Start End Encounter Admission Attending Care Care Encounter Source Date/Time Date/Time Type Type Clinicians Facility Department ID 2020-01-26 2020-01-26 Outpatient Jam Rivera [id number] [facility] 14:36:00 14:36:00 [email or web address] s - Drive [facility] Medicine Medicine [facility] 2020-01-24 2020-01-24 [facility] [id number] 13:45:00 13:45:00 t Powell [employer] s - Pulmocide [facility] Medicine Medicine Outpati ent Clinics 2020-01-19 2020-01-19 [facility] [id number] 08:40:00 08:40:00 t Powell [employer] s - Drive [facility] Medicine l Medicine Outpati ent Clinics 2020-01-18 2020-01-18 [facility] [id number] [facility] 15:20:00 15:20:00 t Powell [employer] s - Pulmocide [facility] Medicine l Medicine Outpati ent Clinics 2020 2020 [facility] [id number] 14:44:00 14:44:00 t Powell ICVRx s [employer] [facility] l Medicine Outpati ent Clinics 2020 2020 [facility] [id number] [facility] 09:39:00 09:39:00 t Powell [employer] s [employer] [facility] Medicine l Medicine Outpati ent Clinics 2019-12-24 2019-12-24 [facility] [id number] 17:41:00 17:41:00 t Powell [employer] s [employer] [facility] l Medicine Outpati ent Clinics 2019-12-21 2019-12-21 [facility] [id number] 09:20:00 09:20:00 t Babyage s [employer] [facility] Medicine l Medicine Outpati ent Clinics 2019-10-27 2019-10-27 [facility] [id number] 14:08:00 14:08:00 t Powell [employer] s [employer] [facility] l Medicine Outpati ent Clinics 2019-10-13 2019-10-13 [facility] [id number] 11:40:00 11:40:00 t Powell [employer] s [employer] [facility] l Medicine Outpati ent Clinics 2019-10-04 2019-10-04 [facility] [id number] 08:00:00 08:00:00 t Powell [employer]CV[employer] s - Pulmocide [facility] l Medicine Outpati ent Clinics 2019-08-26 2019-08-26 [facility] [id number] [facility] 09:30:00 09:30:00 t Powell Powell Pulmocide [email or web address] s - Drive [facility] Medicine l Medicine Outpati ent Clinics 2019-08-25 2019-08-25 [facility] [id number] 11:51:00 11:51:00 t Powell Powell Picurio s - Drive [facility] Medicine l Medicine Outpati ent Clinics 2019-08-24 2019-08-24 [facility] [id number] 14:40:00 14:40:00 t Powell Powell Picurio s - Drive [facility] Medicine l Medicine Outpati ent Clinics 2019-08-17 2019-08-17 [facility] [id number] 11:59:00 11:59:00 t Powell [employer] s [employer] [facility] Medicine l Medicine Outpati ent Clinics 2019-07-05 2019-07-05 [facility] [id number] 16:00:00 16:00:00 t Powell Powell Picurio s - Pulmocide [facility] Medicine l Medicine Outpati ent Clinics 2019-06-22 2019-06-22 [facility] [id number] 11:53:00 11:53:00 t Powell [employer] s [employer] [facility] Medicine l Medicine Outpati ent Clinics 2019-06-22 2019-06-22 [facility] [id number] [facility] 10:22:00 10:22:00 t Powell Powell Picurio s - Pulmocide [facility] Medicine l Medicine Outpati ent Clinics 2019-05-24 2019-05-24 [facility] [id number] 10:00:00 10:00:00 t Powell Powell Picurio s - Drive [facility] Medicine l Medicine Outpati ent Clinics 2019-05-05 2019-05-05 [facility] [id number] [facility] 15:44:00 15:44:00 t Powell Powell Picurio s [email or web address] [address] [facility] Medicine l Medicine Outpati ent Clinics 2019-05-04 2019-05-04 [facility] [id number] 15:20:00 15:20:00 [facility] ent [facility] 2019-04-27 2019-04-27 [facility] [id number] 17:18:00 17:18:00 [facility] ent [facility] 2019-04-26 2019-04-26 [facility] [id number] 17:24:00 17:24:00 [facility] ent [facility] 2019-04-20 2019-04-20 [facility] [id number] 08:27:00 08:27:00 [facility] ent [facility] 2019-04-12 2019-04-12 [facility] [id number] 11:00:00 11:00:00 [facility] 2019-03-30 2019-03-30 [facility] [id number] 14:00:00 14:00:00 [facility] Results Test Description Test Time Test Comments Results Result [facility] e Comments MM, STEREOTACTIC 2017-04-30 Reason for Addendum BeginsMRN#: BIOPSY, BREAST, 5 Exam:->calcificati [id number]: LEFT 15:59:00 on 05/14/2017 Lizzette Velásquez M.D. 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 Addendum EndsMRN#: [id number] - MM, STEREOTACTIC BIOPSY, BREAST, LEFTSTEREOTACTIC GUIDED [...] correct location, five specimens were obtained using DotIVA device. A clip was inserted into the [...] the calcifications. Lizzette Velásquez M.D. pth/penrad:05/09/2017 11:07:57 Production Broacher: Felicia Rizzo RT(R)(M), [facility] [id number] UE EXAM 2017-04-30 Surgical Pathology 3 Report 12:48:00 Case: [id number] Authorizing Provider: Lizzette Velásquez MD Collected: 05/09/2017 1110 Ordering Location: [facility] Received: 05/09/2017 1312 Pathologist: Jackie Maradiaga MD Specimen: Breast, Left, LEFT MIDDLE 12 BREAST CALCIFICATION BREAST, LEFT, MIDDLE 12 O'CLOCK, CALCIFICATIONS, STEREOTACTIC CORE NEEDLE BIOPSY: - HYALINIZED FIBROADENOMA - COLUMNAR CELL HYPERPLASIA - COLUMNAR CELL CHANGES - MICROCALCIFICATIONS, COARSE, ASSOCIATED WITH FIBROADENOMA Signing Pathologist Direct Phone Line: [phone] ally signed by Jackie Maradiaga MD on 05/12/2017 at 12:48 PMIn the sections examined, no atypical hyperplasia or carcinoma is identified.[id number] sing lesion Left middle 12 o'clock breast calcifications The specimen is received in a formalin-filled container labeled with the patient's information and labeled "left middle 12 o'clock breast calcifications" and consists of multiple yellow-white breast core biopsies ranging in length from 0.6 to 2.5 cm.Ink code: Black.The specimen is submitted entirely in A1 and A2. CG/ewPerformed.[facility], Department of Pathology, [address], [place] [address], MM, DIGITAL, 2017-04-30 Left breast MRN#: UNILATERAL, 0 calcifications [id number] - CONFER MARTA, 11:07:00 MM, DIGITAL, MAMMO, [...] pathology results. Lizzette Velásquez M.D. pth/:05/09/2017 11:07:15 Production Broacher: Felicia IRVIN (R)), [facility] Mammogram BI-RADS: Post-procedure mammogram for marker placement [id number] , MAMMO, 2017-04-30 Reason for MRN#: SPECIMEN, 0 exam:->Left breast [id number] - RADIOGRAPH, LEFT 11:06:00 calcifications MM, MAMMO, SPECIMEN, RADIOGRAPH, LEFTSPECIMEN LEFT BREAST: 05/09/2017Five stereotactic guided biopsy specimens were imaged for the area of calcifications located in the left breast at 12 o'clock middle depth. IMPRESSION: SPECIMENThe imaged specimens includes the calcifications. Lizeztte Velásquez M.D. pth/:05/09/2017 11:06:40 Production Broacher: Felicia BELLA (R)(Phil), [facility] [id number]
== END 2020-04-04 18:16 | disposition home or self-care (01) ==
LOC: ER 16:13
DX: S10.93XA Contusion of unspecified part of neck, initial encounter (principal); S00.93XA Contusion of unspecified part of head, initial encounter; W01.198A Fall on same level from slipping, tripping and stumbling with subsequent striking against other object, initial encounter; Y93.89 Activity, other specified; Y92.512 Supermarket, store or market as the place of occurrence of the external cause; E11.9 Type 2 diabetes mellitus without complications
CPT/HCPCS: 70450; 72125; 99284

== ENCOUNTER 2020-05-16 09:27 | Emergency (ER) | payer OTHER ==
--- OUTSIDE RECORDS SUMMARY | 2020-05-16 09:40 | XMS REPORT | Clinical Summary ---
:1970 Author Organization [facility] Address [address] [place] [address] Care Team Providers Name Role Phone Dolores [...] Not on file Last Filed Vital Signs Not on file Plan of Treatment Health Maintenance Due Date Last Done Comments BREAST CANCER SCREENING 1970 COLON CANCER SCREENING COLONOSCOPY 1970 CERVICAL CANCER SCREENING PAP ONLY (Age 21-65) 1990 LIPID PANEL 2014 INFLUENZA VACCINE (#1) 2020 Results Not on fileafter 05/16/2019 Insurance Payer Benefit Plan / Subscriber ID Effective Dates Phone Addre ss Type Group [facility] JOSSY [id number] 2016-Robyn [phone] HMO/POS HEALTH CHOICE MRKTPLACE t 04 EXCHANGE (Work) [id number]
--- OUTSIDE RECORDS SUMMARY | 2020-05-16 09:41 | XMS REPORT | Continuity of Care Document ---
:1970 Author Organization [facility] t Address [address] [place] [address] Care Team Providers Name Role Phone Sharpless Primary Care Physician AIDA VELÁSQUEZ Attending Clinician Unavailable Problems This patient has no known problems. Allergies, Adverse Reactions, Alerts This patient has no known allergies or adverse reactions. Social History Social Habit Start Date Stop Date Quantity Comments Source Sex Assigned At [facility] Tobacco use and 2017-05-09 2017-05-09 Never used [facility] - exposure 00:00:00 00:00:00 [facility] Smoking Status Start Date Stop Date Source Never smoker [facility] Medications Ordered Filled Start Stop Current Ordering Indication Dosage Frequency Signature Comments Components Source Medication Medication Date Date Medication? Clinician (SIG) Name Name Sertraline Sertraline 2018-06 Yes Na Benjamin [address] [facility] HCl HCl 2-24 [facility] empaglifloz 2016-06 Yes 10mg QD Take [address] [facility] in 1-10 by mouth [facility] - (JARDIANCE) 10:01: daily. Medi michele 10 mg 13 [facility] tablet sertraline 2016-06 Yes 50mg QD Take [address] (ZOLOFT) 50 1-10 by mouth [facility] - MG tablet 10:01: daily. Medica l 13 [facility] metFORMIN 2017-1 Yes 500mg Take [address] [facility] (GLUCOPHAGE 1-10 mg by [facility] - ) 500 MG 10:01: mouth 2 Medica l tablet 12 (two) Center times daily with breakfast and dinner. glimepiride 2017 Yes 4mg Take [address] (AMARYL) 4 1-10 by mouth 2 [facility] - MG tablet 10:01: (two) Medical 12 times Center daily before meals. Metformin Metformin Yes Na Benjamin [address] [facility] HCl HCl with a [facility] - meal [facility] ent Clinics Immunizations Ordered Filled Immunization Date Status Comments [facility] e Immunization Name Name Flucelvax - Flucelvax - 2019-03-[address] [facility] - multidose vial multidose vial 00:00:00 [facility] Procedures This patient has no known procedures. Plan of Care Planned Activity Planned Date Details Comments Source Future Scheduled 2020-02-[address] [facility] - Test 00:00:00 (#1) [code = [facility] INFLUENZA VACCINE (#1)] Future Scheduled [address] [facility] - Test 00:00:00 (procedure) [code = [facility] 43843486] Future Scheduled [address] [facility] - Test 00:00:00 malignant neoplasm Medical C enter of cervix (procedure) [code = 508398349] Future Scheduled [address] [facility] - Test 00:00:00 malignant neoplasm Medical C enter of breast (procedure) [code = 714596383] Future Scheduled [address] [facility] - Test 00:00:00 malignant neoplasm Medical C enter of colon (procedure) [code = 329628904] Encounters Start End Encounter Admission Attending Care Care Encounter Source Date/Time Date/Time Type Type Clinicians Facility Department ID 2020-05-08 2020-05-08 Outpatient [facility] [id number] [facility]00 [facility] ent [facility] 2020-05-04 2020-05-04 Outpatient [facility] [id number] [facility] 2020-04-24 2020-04-24 Outpatient [facility] [id number] [facility] 2020-04-20 2020-04-20 Outpatient [facility] [id number] [facility] 2020-04-19 2020-04-19 Outpatient [facility] [id number] [facility] 2020-04-18 2020-04-18 Outpatient [facility] [id number] [facility] 2020-04-17 2020-04-17 Outpatient [facility] [id number] [facility] 2020-04-11 2020-04-11 Outpatient [facility] [id number] [facility] 09:07:00 09:07:00 2020-01-26 2020-01-26 [facility] [id number] 14:36:00 14:36:00 t [place] [facility] - [facility] Medicine l Medicine Outpati ent Clinics 2020-01-24 2020-01-24 [facility] [id number] [address] 13:45:00 13:45:00 t [place] [facility] - Drive [facility] l Medicine Outpati ent Clinics 2020-01-19 2020-01-19 [facility] [id number] 08:40:00 08:40:00 t [place] - Drive [facility] Family Medicine l Medicine Outpati ent Clinics 2020-01-18 2020-01-18 [facility] [id number] 15:20:00 15:20:00 t [place] [employer] - Drive [facility] Family [facility] l Medicine Outpati ent Clinics 2020 2020 [facility] [id number] 14:44:00 14:44:00 t [place] - Drive [facility] Medicine l Medicine Outpati ent Clinics 2020 2020 [facility] [id number] 09:39:00 09:39:00 t [place] [employer] [facility] Medicine Medicine Outpati ent Clinics 2019-12-24 2019-12-24 [facility] [id number] 17:41:00 17:41:00 [place] [employer] [facility] l Medicine Outpati ent Clinics 2019-12-21 2019-12-21 [facility] [id number] 09:20:00 09:20:00 [place] [employer] [facility] Medicine Outpati ent Clinics 2019-10-27 2019-10-27 [facility] [id number] 14:08:00 14:08:00 [facility] Medicine Outpati ent Clinics 2019-10-13 2019-10-13 [facility] [id number] [address] 11:40:00 11:40:00 t [facility] Medicine Outpati ent Clinics 2019-10-04 2019-10-04 [facility] [id number] 08:00:00 08:00:00 t [place] [employer] [facility] Medicine Outpati ent Clinics 2019-08-26 2019-08-26 [facility] [id number] 09:30:00 09:30:00 t [place] [employer] [facility] Medicine Outpati ent Clinics 2019-08-25 2019-08-25 [facility] [id number] 11:51:00 11:51:00 t [place] [employer] [facility] Medicine Outpati ent Clinics 2019-08-24 2019-08-24 [facility] [id number] 14:40:00 14:40:00 t [place] [employer] [facility] Medicine Outpati ent Clinics 2019-08-17 2019-08-17 [facility] [id number] 11:59:00 11:59:00 t [place] [employer] [facility] Medicine Outpati ent Clinics 2019-07-05 2019-07-05 [facility] [id number] 16:00:00 16:00:[address] [place] [address] [address] Luke s - Drive [facility] Family Medicine l Medicine Outpati ent Clinics 2019-06-22 2019-06-22 [facility] [id number] 11:53:00 11:53:[address] [place] [address] Luke s - Drive [facility] Medicine l Medicine Outpati ent Clinics 2019-06-22 2019-06-22 [facility] [id number] 10:22:00 10:22:00 [place] [employer] Luke s - Drive [facility] Medicine l Medicine Outpati ent Clinics 2019-05-24 2019-05-24 [facility] [id number] 10:00:00 10:00:00 [place] [employer] s - Drive [facility] Medicine l Medicine Outpati ent Clinics 2019-05-05 2019-05-05 [facility] [id number] 15:44:00 15:44:00 [place] [employer] s - Drive [facility] Medicine l Medicine Outpati ent Clinics 2019-05-04 2019-05-04 [facility] [id number] 15:20:00 15:20:00 [place] [employer] s - Drive [facility] Medicine l Medicine Outpati ent Clinics 2019-04-27 2019-04-27 [facility] [id number] 17:18:00 17:18:00 [place] [employer] s - Drive [facility] Medicine l Medicine Outpati ent Clinics 2019-04-26 2019-04-26 [facility] [id number] 17:24:00 17:24:00 [place] [employer] s - Drive [facility] Medicine l Medicine Outpati ent Clinics 2019-04-20 2019-04-20 [facility] [id number] 08:27:00 08:27:00 [place] [employer] s - Drive [facility] Medicine l Medicine Outpati ent Clinics 2019-04-12 2019-04-12 [facility] [id number] 11:00:00 11:00:00 [place] [employer] s - Drive [facility] Medicine l Medicine Outpati ent Clinics 2019-03-30 2019-03-30 Outpatient [facility] [id number] [facility] 14:00:00 14:00:00 [facility] Outpsychiatric ent Clinics Results Test Description Test Time Test Comments Results Result Sourc e Comments MM, STEREOTACTIC 2017-04-30 Reason for Addendum BeginsMRN#: BIOPSY, BREAST, 5 Exam:->calcificati [id number]: LEFT 15:59:00 on 05/14/2017 Lizzette Velásquez M.D. 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 Addendum EndsMRN#: [id number] - MM, STEREOTACTIC BIOPSY, BREAST, LEFTSTEREOTACTIC GUIDED [...] correct location, five specimens were obtained using JUNIQEIVA device. A clip was inserted into the [...] the calcifications. Lizzette Velásquez M.D. pth/penrad:05/09/2017 11:07:57 Director Sales Support: Felicia Rizzo RT(R)(M), [facility] [id number] UE EXAM 2017-04-30 Surgical Pathology 3 Report 12:48:00 Case: [id number] Authorizing Provider: Lizzette Velásquez MD Collected: 05/09/2017 1110 Ordering Location: [facility] Received: 05/09/2017 1312 Pathologist: Jackie Maradiaga MD Specimen: Breast, Left, LEFT MIDDLE 12 BREAST CALCIFICATION BREAST, LEFT, MIDDLE 12 O'CLOCK, CALCIFICATIONS, STEREOTACTIC CORE NEEDLE BIOPSY: - HYALINIZED FIBROADENOMA - COLUMNAR CELL HYPERPLASIA - COLUMNAR CELL CHANGES - MICROCALCIFICATIONS, COARSE, ASSOCIATED WITH FIBROADENOMA Signing Pathologist Direct Phone Line: [phone] ally signed by Jackie Maradiaga MD on 05/12/2017 at 12:48 PMIn the sections examined, no atypical hyperplasia or carcinoma is identified.[id number] sing lesion Left middle 12 o'clock breast calcifications The specimen is received in a formalin-filled container labeled with the patient's information and labeled "left middle 12 o'clock breast calcifications" and consists of multiple yellow-white breast core biopsies ranging in length from 0.6 to 2.5 cm.Ink code: Black.The specimen is submitted entirely in A1 and A2. CG/ewPerformed.[facility], Department of Pathology, [address] [place] [address], MM, DIGITAL, 2017-04-30 Left breast MRN#: UNILATERAL, 0 calcifications [id number] - CONFER MARTA, 11:07:00 MM, DIGITAL, MAMMO, [...] pathology results. Lizzette Velásquez M.D. pth/:05/09/2017 11:07:15 Director Sales Support: Felicia Rizzo RT(R)(M), [facility] Mammogram BI-RADS: Post-procedure mammogram for marker placement [id number] , MAMMO, 2017-04-30 Reason for MRN#: SPECIMEN, 0 exam:->Left breast [id number] - RADIOGRAPH, LEFT 11:06:00 calcifications MM, MAMMO, SPECIMEN, RADIOGRAPH, LEFTSPECIMEN LEFT BREAST: 05/09/2017Five stereotactic guided biopsy specimens were imaged for the area of calcifications located in the left breast at 12 o'clock middle depth. IMPRESSION: SPECIMENThe imaged specimens includes the calcifications. Lizzette Velásquez M.D. pth/:05/09/2017 11:06:40 Director Sales Support: Felicia BELLA(Linda)(M), [facility] [id number]
--- OUTSIDE RECORDS SUMMARY | 2020-05-16 09:41 | XMS REPORT ---
:1970 Author Organization [facility] Address [address] [place] [address] Care Team Providers Name Role Phone Benjamin Unavailable [phone] PROBLEMS Type Condition ICD9-CM FGM66-AT Onset Condition SNOMED Code Notes Code Code Dates Status Problem Fatty liver K76.0 Active 007426516 Problem Seasonal allergies J30.2 Active 512233418 Problem Decreased mobility R26.89 Active 0387093 Problem Uncontrolled type 2 E11.65 Active 927175384 diabetes mellitus with hyperglycemia Problem Gastroesophageal K21.9 Active 678394994 reflux disease, esophagitis presence not specified Problem Depression with F41.8 Active 795572600 anxiety Problem Closed nondisplaced S62.509A Active 722164229 fracture of phalanx of thumb, unspecified laterality, unspecified phalanx, initial encounter Problem Diabetic E11.42 Active 144190632 polyneuropathy associated with type 2 diabetes mellitus Problem Vitamin D E55.9 Active 11794167 deficiency Problem Mixed E78.2 Active 635183493 hyperlipidemia Problem Acute stress F43.0 Active 26802354 reaction Problem Panic disorder F41.0 Active 581649934 [episodic paroxysmal anxiety] ALLERGIES No Known Allergies ENCOUNTERS from 1970 to 2020-04-24 Encounter Location Date Provider Diagnosis [facility] [address] [place], Anette Benjamin [facility] ontrolled type 2 Family Medicine [address], [place] [address] hyperglycemia E11.65 ; Diabetic polyne uropathy associated with type 2 diabetes mellit us E11.42 ; Mixed hyperli pidemia E78.2 ; Depress ion with anxiety F41.8 ; Fatty liver K76.0 ; A cute UTI (urinary tract infection) N39. 0 and Dysuria R30.0 IMMUNIZATIONS Vaccine Route Administration Date Status Flucelvax - multidose vial IM Intramuscular Mar 30, 2019 Admi nistered SOCIAL HISTORY Tobacco Use: Social History Observation Description Date Details (start date - stop date) Never Smoker Sex Assigned At : Social History Observation Description Sex Assigned At Unknown PHQ9 Question Answer Notes Little interest or pleasure in doing things Several days Feeling down, depressed, or hopeless Several days Trouble falling or staying asleep or sleeping too much More than half the days Feeling tired or having little energy More than half the day s Poor appetite or overeating More than half the days Feeling bad about yourself, or that you are a failure, More than half the days or have let yourself or your family down Trouble concentrating on things, such as reading the Several days newspaper or watching television Moving or speaking so slowly that other people could Several days have noticed; or the opposite, being so fidgety or restless that you have been moving around a lot more than usual Total Score 12 Interpretation Moderate Depression Thoughts that you would be better off or of Not at all hurting yourself in some way Alcohol Screen Question Answer Notes Did you have a drink containing alcohol in the past Yes year? Points 1 Interpretation Negative How often did you have 6 or more drinks on one Never (0 poin ts) occasion in the past year? How many drinks did you have on a typical day when 1 or 2 (0 points) you were drinking in the past year? How often did you have a drink containing alcohol in Monthly or less (1 point) the past year? Tobacco Use/Smoking Question Answer Notes Are you a never smoker Additional Findings: Tobacco Non-User Current non-smoker REASON FOR REFERRAL No Information VITAL SIGNS Height 64 in Mar, Weight 164.6 lbs Mar, Temperature 97.5 degrees Fahrenheit Mar, BMI 28.25 kg/m2 Mar, Oximetry 101 % Mar, Respiratory Rate 18 /min Mar, Blood pressure systolic 120 mm Hg Mar, Blood pressure diastolic 65 mm Hg Mar, MEDICATIONS Medication SIG (Take, Route, Start Date End Date Status Frequency, Duration) Xanax 0.5MG 1 tablet Orally once a Not-T aking day prn anxiety attacks Xanax 0.5MG 1 tablet Orally once a Activ e day prn anxiety attacks for 30 Sertraline HCl 100 MG 2 tablets Orally Once Active a day Glimepiride 4 MG 1 tablet with Active breakfast or the first main meal of the day Orally Once a day BD Pen Needle Kylie 2nd Gen as directed SC once Active 32G X 4 MM daily for 90 days Metformin HCl 500 MG TAKE 2 TABLETS BY Ac tive MOUTH TWICE DAILY WITH A MEAL for 30 Omeprazole 40 MG 1 capsule Orally Once Ac tive a day for 90 days Diclofenac Sodium 1 % 2 gram application to Mar,Jun, Active affected area Transdermal Three times a day for 30 day(s) FreeStyle Tay 14 Day USE DIRECTED EVERY Not-Taking Sensor - 14 DAYS Diclofenac Sodium 75 MG 1 tablet with food or Mar, Mar, Active milk Orally Twice a day prn pain for 10 days Metformin HCl 500 MG 2 tablet with a meal Not-Taking Orally twice a day Fluticasone Propionate 50 1 spray in each Mar, Active MCG/ACT nostril Nasally Once a day for 30 day(s) FreeStyle Tay 14 Day as directed daily Not-Taking [place] - Cipro 500 MG 1 tablet Orally every Mar, Mar, Active 12 hrs for 7 days Gabapentin 300 MG 1 capsule Orally three Active times a day for 30 days Tresiba FlexTouch 200 60units in pm titrate Active UNIT/ML up 2 units every 3 days until fbg less 100 (max of 70 units daily) Subcutaneous once a day for 90 days NovoFine Plus 32G X 4 MM as directed SC once Active daily Cyclobenzaprine HCl 10 MG 1 tablet as needed Mar,Apr, Active Orally once a day at bedtime for 20 days Levemir FlexTouch 100 22 units daily and Aug, Active UNIT/ML titrate up 2 units every 2 days until FBG less 120 max of 50 units daily Subcutaneous daily for 90 days BusPIRone HCl 5 MG TAKE 1 TABLET BY MOUTH Active EVERY 6 HOURS NEEDED FOR ANXIETY for 30 PROCEDURES No Information RESULTS Component Value Reference Range Urine Culture,Comprehensive Reviewed date:04/24/2020 19:43:47 Interpretation: Performing Lab:, [facility], [facility] [place], [place] [id number], Phone - [phone], Director - Christiane Urine Culture,Comprehensive Final report Result 1 Klebsiella pneumoniae Antimicrobial Susceptibility REASON FOR VISIT 3 month follow up with lab/ , Dm2, neuropathy, depression anxiety, hyperlipidemia, stress, fatty liver MEDICAL (GENERAL) HISTORY Type Description Date Medical History Diabetic Type 2 Surgical History Hysterectomy Surgical History Gallbladder Goals Section No Information Health Concerns No Information MEDICAL EQUIPMENT No Information MENTAL STATUS No Information FUNCTIONAL STATUS No Information ASSESSMENTS Encounter Date Diagnosis Notes Mar, Diabetic polyneuropathy associated with type 2 diabetes mellitus (ICD-10 - E11.42) Mar, Uncontrolled type 2 diabetes mellitus wi th hyperglycemia (ICD-10 - E11.65) Mar, Depression with anxiety (ICD-10 - F41.8) Mar, Mixed hyperlipidemia (ICD-10 - E78.2) Mar, Acute UTI (urinary tract infection) (ICD -10 - N39.0) Mar, Fatty liver (ICD-10 - K76.0) Mar, Dysuria (ICD-10 - R30.0) PLAN OF TREATMENT Treatment Notes Assessment Notes Clinical Notes Uncontrolled type 2 diabetes A1C is 8.0 not at goal, low car b 1800 mellitus with hyperglycemia ADA diet. Avoid sodas, juices an d remember portion control. Take your medication as prescribed. Monitor your blood sugar at home as directed and keep a log to bring back with you to your next visit for review. Schedule your annual diabetic eye exam with your eye doctor to screen for diabetic retinopathy. Check your feet daily to make sure you have no open wounds. Diabetic polyneuropathy It is important to check your feet d aily associated with type 2 to makes sure you do not have any ope n diabetes mellitus cuts or sores in between your toes and soles of you feet because you may not be able to feel sores or wounds due to lack of sensation in feet due to diabetic neuropathy. Mixed hyperlipidemia LDL= 90 ( goal LDL less than 70 if you have heart disease or diabetes) per lab report.Please maintain low fat diet, decrease fast food and fried foods. Increase fruit and vegetable intake. exercise as tolerated 30minutes per day at least 3 days a week. May take fish oil 1000mg twice daily to help increase good cholesterol (HDL) and take metamucil / eat oatmeal in AM to help lower bad cholesterol. Fatty liver --consider order US of liver to monitor fatty liver once every 1-2 years to make sure no further progression to steatohepatitis or cirrhosis. lifestyle modificationsrecommended to lower liver enzymes which are released when there is damage to your liver cells. Maintain a low fat diet, exercise and weight loss. will monitor liver enzymes.-Avoid meds that may injure liver including tylenol ( Acetaminophen) and alcohol. -- Try otc vitamins milk thistle and berberine which may help with liver health to cleanse and repair the liver- Recommend to try juicing/ eating salad for breakfast and lunch and regular meal at dinner. - To lose weight decrease daily caloric intake by 500 calories per day. - Acute UTI (urinary tract -- take antibiotics as directed. Wi ll infection) send urine for urine culture and sensitivity to make sure antibiotic placed on is sensitive to the organism causing UTIl.-- increase water intake-- always wipe front to back-- try to clean well after bowel movement possibly with baby wipes.-- urinate after intercourse-- rx cipro and will change as needed based on urine culture results. Treatment Notes Test Name Order Date URINALYSIS AUTO W/O SCOPE ([id number]) 2020-04-24 Next Appt Details 2 Weeks Reason: Provider Name:Anette Benjamin, 2020-05-04 11:2 0:00 AM, [address], [address], [place], [address], Provider Name:Chano Chowdary, 2020-05-08 0 8:30:00 AM, [address], [address], [place], [address], Insurance Providers Payer Name Payer Payer Insured Patient Coverage Coverage End Address Phone Name Relationship to Start Date Lui e Insured Ambetter from [phone] ReidshemarkolbyAditya self [address] [place] [id number] A Health Plan [facility] [id number]
--- OUTSIDE RECORDS SUMMARY | 2020-05-16 09:41 | XMS REPORT ---
:1970 Author Organization [facility] Address [address] [place], [address] [place] [address] Care Team Providers Name Role Phone Benjamin Unavailable [phone] PROBLEMS Type Condition ICD9-CM BUT95-EU Onset Condition SNOMED Code Notes Code Code Dates Status Problem Fatty liver K76.0 Active 326091331 Problem Seasonal allergies J30.2 Active 340705402 Problem Decreased mobility R26.89 Active 1219475 Problem Uncontrolled type 2 E11.65 Active 497977880 diabetes mellitus with hyperglycemia Problem Gastroesophageal K21.9 Active 495358663 reflux disease, esophagitis presence not specified Problem Depression with F41.8 Active 011302928 anxiety Problem Closed nondisplaced S62.509A Active 044853446 fracture of phalanx of thumb, unspecified laterality, unspecified phalanx, initial encounter Problem Diabetic E11.42 Active 638228019 polyneuropathy associated with type 2 diabetes mellitus Problem Vitamin D E55.9 Active 46455363 deficiency Problem Mixed E78.2 Active 207179523 hyperlipidemia Problem Acute stress F43.0 Active 50529228 reaction Problem Panic disorder F41.0 Active 710919120 [episodic paroxysmal anxiety] ALLERGIES No Known Allergies ENCOUNTERS from 1970 to 2020-05-10 Encounter Location Date Provider Diagnosis [facility] [address] [place], Anette Benjamin [facility] ontrolled type 2 Family Medicine [address], [place] [address] hyperglycemia E11.65 ; Diabetic polyne uropathy associated with type 2 diabetes mellit us E11.42 ; Mixed hyperli pidemia E78.2 ; Depress ion with anxiety F41.8 ; Fatty liver K76.0 ; P ain of left thumb M79. 645 [address] Closed dis[address] d fracture of dis olaf phalanx of left thumb, initial encount er S62.524U IMMUNIZATIONS Vaccine Route Administration Date Status Flucelvax [...] No Information VITAL SIGNS Height 64 in Apr, Weight 169.9 lbs Apr, Temperature 97.4 degrees Fahrenheit Apr, BMI 29.16 kg/m2 Apr, Oximetry 98 % Apr, Respiratory Rate 18 /min Apr, Blood pressure systolic 112 mm Hg Apr, Blood pressure diastolic 55 mm Hg Apr, MEDICATIONS Medication SIG (Take, Route, Start Date End Date Status Frequency, Duration) Levemir FlexTouch 100 22 units daily and titrate Aug, Active UNIT/ML up 2 units every 2 days until FBG less 120 max of 50 units daily Subcutaneous daily for 90 days Omeprazole 40 MG 1 capsule Orally Once a Active day for 90 days BD Pen Needle Kylie 2nd Gen as directed SC once daily Active 32G X 4 MM for 90 days Diclofenac Sodium 1 % 2 gram application to Mar,Jun, Active affected area Transdermal Three times a day for 30 day(s) Xanax 0.5MG 1 tablet Orally once a day A ctive prn anxiety attacks for 30 Steglatro 15 MG 1 tablet Orally Once a day Apr, October, Active for 90 day(s) Gabapentin 300 MG 1 capsule Orally three Active times a day Xanax 0.5MG 1 tablet Orally once a day A ctive prn anxiety attacks for 30 days NovoFine Plus 32G X 4 MM as directed SC once daily Active Glimepiride 4 MG 1 tablet with breakfast or Active the first main meal of the day Orally Once a day FreeStyle Tay 14 Day as directed daily Active [place] - Metformin HCl 500 MG TAKE 2 TABLETS BY MOUTH Active TWICE DAILY WITH A MEAL for 30 FreeStyle Tay 14 Day USE DIRECTED EVERY 14 Active Sensor - DAYS Metformin HCl 500 MG 2 tablet with a meal Active Orally twice a day for 90 days Tresiba FlexTouch 200 60units in pm titrate up 2 Active UNIT/ML units every 3 days until fbg less 100 (max of 70 units daily) Subcutaneous once a day for 90 days Sertraline HCl 100 MG 2 tablets Orally Once a Active day BusPIRone HCl 5 MG TAKE 1 TABLET BY MOUTH Active EVERY 6 HOURS NEEDED FOR ANXIETY for 30 Fluticasone Propionate 50 1 spray in each nostril Mar, Active MCG/ACT Nasally Once a day for 30 day(s) PROCEDURES No Information RESULTS No Results REASON FOR VISIT 2 wk f/u labs In office., DM2 uncontrolled, hyperlipidemia, depression anxiety, thumb pain MEDICAL (GENERAL) HISTORY Type Description Date Medical History Diabetic Type 2 Surgical History Hysterectomy Surgical History Gallbladder Goals Section No Information Health Concerns No Information MEDICAL EQUIPMENT No Information MENTAL STATUS No Information FUNCTIONAL STATUS No Information ASSESSMENTS Encounter Date Diagnosis Notes Apr, Diabetic polyneuropathy associated with type 2 diabetes mellitus (ICD-10 - E11.42) Apr, Uncontrolled type 2 diabetes mellitus wi th hyperglycemia (ICD-10 - E11.65) Apr, Depression with anxiety (ICD-10 - F41.8) Apr, Mixed hyperlipidemia (ICD-10 - E78.2) Apr, Pain of left thumb (ICD-10 - M79.645) Apr, Fatty liver (ICD-10 - K76.0) Apr, Closed displaced fracture of distal phal anx of left thumb, initial encounter (ICD-10 - S62.522A) PLAN OF TREATMENT Treatment Notes Assessment Notes Clinical Notes Uncontrolled type 2 A1C is 8.0 not at goal, low carb [address] art[address] on Steglatro diabetes mellitus with ADA diet. Avoid sodas, juices and 05/04/2020 A1C hyperglycemia remember portion control. Take your 8.0c ontinue medication as prescribed. Monitor insuli n,metformin and your blood sugar at home as directed gli meperide. and keep a log to bring back with you to your next visit for review. Schedule your annual diabetic eye exam with your eye doctor to screen for diabetic retinopathy. Check your feet daily to make sure you have no open wounds. Diabetic polyneuropathy It is important to check your feet associated with type 2 daily to makes sure you do not have diabetes mellitus any open cuts or sores in between your toes [...] in AM to help lower bad cholesterol. Depression with anxiety It is important to exercise regularl y to improve concentration, motivation, memory, and mood as it has been shown to boost the brains dopamine, norepinephrine, and serotonin levels which affect moo, focus and attention. Spending time in nature improves/reduces stress/mood. Try to exercise at least 30 minutes 4 days a week. Make sure to get enough sleep and eating a well-balanced regular diet also helps to improve and regulate stress and mood. Fatty liver --consider order [place] of liver [...] intake by 500 calories per day. - Closed displaced fracture -proceed with nonoperative of distal phalanx of left treatmentFollow-up with Dr. junior, initial encounter Epi-placed in thumb spica splint f or approx 2 to 3- wks Next Appt Details 4 Weeks THV okay Reason: Provider Name:Chano Chowdary, 2020-05-29 0 9:00:00 AM, [address], [address], [place], [address], Provider Name:Anette Benjamin 2020-06-01 08:4 0:00 AM, [address], [address], [place], [address], Insurance Providers Payer Name Payer Payer Insured Patient Coverage Coverage End Address Phone Name Relationship to Start Date Lui e Insured Ambetter from [phone] Aditya Nance self [address] [place] [phone] [place] Health Plan [facility] [id number]
--- OUTSIDE RECORDS SUMMARY | 2020-05-16 09:41 | XMS REPORT ---
:[address] [facility] Address [address] [place], [address] [place] [address] Care Team Providers Name Role Phone Benjamin Unavailable [phone] PROBLEMS Type Condition ICD9-CM FCG33-DN Onset Condition SNOMED Code Notes Code Code Dates Status Problem Fatty liver K76.0 Active 858920395 Problem Seasonal allergies J30.2 Active 420231613 Problem Decreased mobility R26.89 Active 7703873 Problem Uncontrolled type 2 E11.65 Active 222781052 diabetes mellitus with hyperglycemia Problem Gastroesophageal K21.9 Active 257049827 reflux disease, esophagitis presence not specified Problem Depression with F41.8 Active 425513585 anxiety Problem Closed nondisplaced S62.509A Active 198767237 fracture of phalanx of thumb, unspecified laterality, unspecified phalanx, initial encounter Problem Diabetic E11.42 Active 752426907 polyneuropathy associated with type 2 diabetes mellitus Problem Vitamin D E55.9 Active 45260640 deficiency Problem Mixed E78.2 Active 745706918 hyperlipidemia Problem Acute stress F43.0 Active 35394526 reaction Problem Panic disorder F41.0 Active 887808593 [episodic paroxysmal anxiety] ALLERGIES No Known Allergies ENCOUNTERS from 1970 to 2020-04-23 Encounter Location Date Provider Diagnosis [facility] [address] [place], Na Benjamin Pain of left thumb Family Medicine [place], [place] M79.645 ; [place] [address] lumbar region, sequela S39.012 S ; History of rece nt fall Z91.81 and Multiple joint pain M25.50 IMMUNIZATIONS Vaccine Route Administration Date Status Flucelvax [...] at all hurting yourself in some way Tobacco Use/Smoking Question Answer Notes Are you a never smoker REASON FOR REFERRAL No Information VITAL SIGNS Height 64 in Mar, Weight 167.2 lbs Mar, Temperature 98.0 degrees Fahrenheit Mar, BMI 28.70 kg/m2 Mar, Oximetry 97 % Mar, Respiratory Rate 15 /min Mar, Blood pressure systolic 127 mm Hg Mar, Blood pressure diastolic 61 mm Hg Mar, MEDICATIONS Medication SIG (Take, Route, Start Date End Date Status Frequency, Duration) Levemir FlexTouch 100 22 units daily and Aug, Active UNIT/ML titrate up 2 units every 2 days until FBG less 120 max of 50 units daily Subcutaneous daily for 90 days Diclofenac Sodium 1 % 2 gram application to Mar,Jun, Active affected area Transdermal Three times a day for 30 day(s) Sertraline HCl 100 MG 2 tablets Orally Once a Active day Cyclobenzaprine HCl 10 MG 1 tablet as needed Mar,Apr, Active Orally once a day at bedtime for 20 days Metformin HCl 500 MG TAKE 2 TABLETS BY MOUTH Active TWICE DAILY WITH A MEAL for 30 Tresiba FlexTouch 200 60units in pm titrate up Active UNIT/ML 2 units every 3 days until fbg less 100 (max of 70 units daily) Subcutaneous once a day for 90 days NovoFine Plus 32G X 4 MM as directed SC once Active daily Glimepiride 4 MG 1 tablet with breakfast Active or the first main meal of the day Orally Once a day Omeprazole 40 MG 1 capsule Orally Once a Active day for 90 days BD Pen Needle Kylie 2nd Gen as directed SC once Active 32G X 4 MM daily for 90 days Gabapentin 300 MG 1 capsule Orally three Active times a day for 30 days Diclofenac Sodium 75 MG 1 tablet with food or Mar, Mar, Active milk Orally Twice a day prn pain for 10 days FreeStyle Tay 14 Day USE DIRECTED EVERY 14 Active Sensor - DAYS Fluticasone Propionate 50 1 spray in each nostril Mar, Active MCG/ACT Nasally Once a day for 30 day(s) Metformin HCl 500 MG 2 tablet with a meal Active Orally twice a day BusPIRone HCl 5 MG TAKE 1 TABLET BY MOUTH Active EVERY 6 HOURS NEEDED FOR ANXIETY for 30 Xanax 0.5MG 1 tablet Orally once a Activ e day prn anxiety attacks FreeStyle Tay 14 Day as directed daily Active [place] - Cipro 500 MG 1 tablet Orally every 12 Mar, Mar, Act verenice hrs for 7 days Xanax 0.5MG 1 tablet Orally once a Activ e day prn anxiety attacks for 30 PROCEDURES No Information RESULTS Component Value Reference Range Finger-Thumb Left Reviewed date:04/19/2020 16:50:59 Interpretation: Performing Lab: REASON FOR VISIT [facility] f/u [phone], left thumb pain, s/p fall MEDICAL (GENERAL) HISTORY Type Description Date Surgical History No Surgical history information Goals Section No Information Health Concerns No Information MEDICAL EQUIPMENT No Information MENTAL STATUS No Information FUNCTIONAL STATUS No Information ASSESSMENTS Encounter Date Diagnosis Notes Mar, Strain of lumbar region, sequela (ICD-10 - S39.012S) Mar, Pain of left thumb (ICD-10 - M79.645) Mar, Multiple joint pain (ICD-10 - M25.50) Mar, History of recent fall (ICD-10 - Z91.81) PLAN OF TREATMENT Medication Medication Name Sig Start Date Stop Date Glimepiride 4 MG 1 tablet with breakfast or the first main meal of the day Orally Once a day FreeStyle Tay 14 Day [place] as directed daily - FreeStyle Tay 14 Day Sensor USE DIRECTED EVERY 14 DAYS - Tresiba FlexTouch 200 UNIT/ML 60units in pm titrate up 2 units every 3 days until fbg less 100 (max of 70 units daily) Subcutaneous once a day for 90 days Xanax 0.5MG 1 tablet Orally once a day prn anxiety attacks Metformin HCl 500 MG 2 tablet with a meal Orally twice a day Cipro 500 MG 1 tablet Orally every 12 hrs Mar, Mar, for 7 days NovoFine Plus 32G X 4 MM as directed SC once daily Sertraline HCl 100 MG 2 tablets Orally Once a day Treatment Notes Assessment Notes Clinical Notes Pain of left thumb cont wearing wrist s upport with thumb support, will get xray of thumb to see if any fracture present and will refer to ortho if ne eded. Strain of lumbar region, For pain control try tylenol sequela (acetaminophen) 500mg (2tabs) every 8 hours or as directed but Max of 2,000mg per day of acetaminophen( tylenol) and adding ibuprofen 200mg (2 tabs every 6 hours if tylenol not controlling pain)May also use ice and heat and oct topical lidocaine/menthol sprays to decrease pain. History of recent fall Fall precautions discussed-Be careful and try to eliminate rugs, throws, pets , and dim lighting.-Take frequent breaks if you feel tired- Move slowly and take a look at your surrounding before you get up and move. Multiple joint pain pain control will rx muscle relaxant and continu e follow up with rheumatologi st for psoriatic arthritis Next Appt Details keep next appt Reason: Provider Name:Chano Chowdary, 2020-04-24 0 8:30:00 AM, [address], [address], [place], [address], Provider Name:Anette Benjamin, 2020-05-04 11:2 0:00 AM, [address], [address], [place], [address], Insurance Providers Payer Name Payer Payer Insured Patient Coverage Coverage End Address Phone Name Relationship to Start Date Lui e Insured Ambetter from [phone] Aditya Nance [address] [place] [phone] [place] A Health Plan [facility] [id number]
--- OUTSIDE RECORDS SUMMARY | 2020-05-16 09:41 | XMS REPORT ---
:1970 Author Organization [facility] Address [address] [facility] [facility] [address] [place] [address] Care Team Providers Name Role Phone Epi Unavailable [phone] PROBLEMS Type Condition ICD9-CM [id number] Onset Condition SNOMED Code Notes Code Code Dates Status Problem Fatty liver K76.0 Active 325094611 Problem Seasonal allergies J30.2 Active 101408072 Problem Decreased mobility R26.89 Active 3898913 Problem Uncontrolled type 2 E11.65 Active 422448530 diabetes mellitus with hyperglycemia Problem Gastroesophageal K21.9 Active 746949433 reflux disease, esophagitis presence not specified Problem Depression with F41.8 Active 390250970 anxiety Problem Closed nondisplaced S62.509A Active 578621577 fracture of phalanx of thumb, unspecified laterality, unspecified phalanx, initial encounter Problem Diabetic E11.42 Active 191406699 polyneuropathy associated with type 2 diabetes mellitus Problem Vitamin D E55.9 Active 60129415 deficiency Problem Mixed E78.2 Active 562366361 hyperlipidemia Problem Acute stress F43.0 Active 82333208 reaction Problem Panic disorder F41.0 Active 640013269 [episodic paroxysmal anxiety] ALLERGIES No Known Allergies ENCOUNTERS from 1970 to 2020-04-27 Encounter Location Date Provider Diagnosis [facility] [address] [place], Chano Chowdary Pain of left thumb [facility] [address] [place], M79.645 and Closed [facility] [address] displaced frac ture of distal phala nx of left thumb, initial encount er S62.522A IMMUNIZATIONS Vaccine Route Administration Date Status Flucelvax [...] VITAL SIGNS Height 64 in Mar, Weight 168 lbs Mar, Temperature 97.5 degrees Fahrenheit Mar, BMI 28.83 kg/m2 Mar, Blood pressure systolic 117 mm Hg Mar, Blood pressure diastolic 75 mm Hg Mar, MEDICATIONS Medication SIG (Take, [...] Tay 14 Day as directed daily Not-Taking [place] - Cipro 500 MG 1 tablet Orally [...] ANXIETY for 30 PROCEDURES No Information RESULTS No Results REASON FOR VISIT NEW PT: LEFT HAND THUMB PAIN MEDICAL (GENERAL) HISTORY Type Description Date Medical History Diabetic Type 2 Surgical History Hysterectomy Surgical History Gallbladder Goals Section No Information Health Concerns No Information MEDICAL EQUIPMENT No Information MENTAL STATUS No Information FUNCTIONAL STATUS No Information ASSESSMENTS Encounter Date Diagnosis Notes Mar, Closed displaced fracture of distal phal anx of left thumb, initial encounter (ICD-10 - S62.522A) Mar, Pain of left thumb (ICD-10 - M79.645) PLAN OF TREATMENT Treatment Notes Assessment Notes Clinical Notes Closed displaced fracture of -proceed with nonoperative distal phalanx of left thumb, treatment-placed in thumb spic a initial encounter splint for 2 weeks-f/u in 2 weeks for reevaluation and xrays of the left thumb Treatment Notes Test Name Order Date X-RAY EXAM HAND 3 VIEWS ([id number]) 2020-04-27 Next Appt Details 2 Weeks w/xrays Reason: Provider Name:Anette Benjamin, 2020-05-04 11:2 0:00 AM, [address], [place], [address], Provider Name:Chano Chowdary, 2020-05-08 0 8:30:00 AM, [address], [address], [place], [address], Insurance Providers Payer Name Payer Payer Insured Patient Coverage Coverage End Address Phone Name Relationship to Start Date Lui e Insured Ambetter from [phone] Aditya Nance self [address] [place] [id number] A Health Plan [facility] [id number]
--- OUTSIDE RECORDS SUMMARY | 2020-05-16 09:41 | XMS REPORT ---
:1970 Author Organization [facility] Address [address] [place] [address] Care Team Providers Name Role Phone Benjamin Unavailable [phone] PROBLEMS Type Condition ICD9-CM JER86-HO Onset Condition SNOMED Code Notes Code Code Dates Status Problem Fatty liver K76.0 Active 230277559 Problem Seasonal allergies J30.2 Active 413589247 Problem Decreased mobility R26.89 Active 8211775 Problem Uncontrolled type 2 E11.65 Active 259873270 diabetes mellitus with hyperglycemia Problem Gastroesophageal K21.9 Active 077874718 reflux disease, esophagitis presence not specified Problem Depression with F41.8 Active 217465925 anxiety Problem Closed nondisplaced S62.509A Active 178017018 fracture of phalanx of thumb, unspecified laterality, unspecified phalanx, initial encounter Problem Diabetic E11.42 Active 220438850 polyneuropathy associated with type 2 diabetes mellitus Problem Vitamin D E55.9 Active 47965156 deficiency Problem Mixed E78.2 Active 736468868 hyperlipidemia Problem Acute stress F43.0 Active 82926531 reaction Problem Panic disorder F41.0 Active 370026553 [episodic paroxysmal anxiety] ALLERGIES No Known Allergies ENCOUNTERS from 1970 to 2020-04-20 Encounter Location Date Provider Diagnosis [facility] [address], Na Benjamin Wilma sed nondisplaced Family Medicine [address], [place] [address] thumb, unspeci fied laterality, uns pecified phalanx, initia l encounter S62.5 09A IMMUNIZATIONS Vaccine Route Administration Date Status Flucelvax [...] REASON FOR REFERRAL No Information VITAL SIGNS No information MEDICATIONS Medication SIG (Take, Route, Start Date [...] Tay 14 Day as directed daily Active [place] - Cipro 500 MG 1 tablet Orally every 12 Mar, Mar, Act verenice hrs for 7 days Xanax 0.5MG 1 tablet Orally once a Activ e day prn anxiety attacks for 30 PROCEDURES No Information RESULTS No Results REASON FOR VISIT need appt with ortho schuyler MEDICAL (GENERAL) HISTORY Type Description Date Surgical History No Surgical history information Goals Section No Information Health Concerns No Information MEDICAL EQUIPMENT No Information MENTAL STATUS No Information FUNCTIONAL STATUS No Information ASSESSMENTS Encounter Date Diagnosis Notes Mar, Closed nondisplaced fracture of phalanx of thumb, unspecified laterality, unspecified phalanx, initial encounter (ICD-10 - S62.509A) PLAN OF TREATMENT Medication Medication Name Sig Start Date Stop Date Glimepiride 4 MG 1 tablet with breakfast or the first main meal of the day Orally Once a day FreeStyle Tay 14 Day [place] as directed daily - FreeStyle Tay 14 [...] MG 2 tablets Orally Once a day Next Appt Details Provider Name:Chano Chowdary, 2020-04-24 0 8:30:00 AM, [address], [address], [place], [address], Provider Name:Anette Benjamin, 2020-05-04 11:2 0:00 AM, [address], [address], [place], [address], Insurance Providers Payer Name Payer Payer Insured Patient Coverage Coverage End Address Phone Name Relationship to Start Date Lui e Insured Ambetter from [phone] Aditya Nance self [address] [place] [id number] [place] A Health Plan [facility] [id number]
--- OUTSIDE RECORDS SUMMARY | 2020-05-16 09:41 | XMS REPORT ---
:1970 Author Organization [facility] Address [address], [address] [place] [address] Care Team Providers Name Role Phone Benjamin Unavailable [phone] PROBLEMS Type Condition ICD9-CM [id number] Onset Condition SNOMED Code Notes Code Code Dates Status Problem Depression with F41.8 Active 761539736 anxiety Problem Fatty liver K76.0 Active 093148699 Problem Seasonal allergies J30.2 Active 279080671 Problem Panic disorder F41.0 Active 093575662 [episodic paroxysmal anxiety] Problem Diabetic E11.42 Active 863558103 polyneuropathy associated with type 2 diabetes mellitus Problem Gastroesophageal K21.9 Active 022366876 reflux disease, esophagitis presence not specified Problem Uncontrolled type 2 E11.65 Active 774973423 diabetes mellitus with hyperglycemia Problem Decreased mobility R26.89 Active 2585062 Problem Vitamin D E55.9 Active 52957774 deficiency Problem Mixed E78.2 Active 878448578 hyperlipidemia Problem Acute stress F43.0 Active 93575631 reaction ALLERGIES No Known Allergies ENCOUNTERS from 1970 to 2020-04-18 Encounter Location Date Provider Diagnosis [facility] [address] [facility] [address] [address] Mar, 2020 [place] [address] IMMUNIZATIONS Vaccine Route Administration Date Status Flucelvax [...] Start Date End Date Status Frequency, Duration) FreeStyle Tay 14 Day as directed daily Active [place] - Omeprazole 40 MG 1 capsule Orally Once a Active day for 90 days Sertraline HCl 100 MG 2 tablets Orally Once a Active day for 30 days Glimepiride 4 MG 1 tablet with breakfast Active or the first main meal of the day Orally Once a day NovoFine Plus 32G X 4 MM as directed SC once Active daily FreeStyle Tay 14 Day USE DIRECTED EVERY 14 Active Sensor - DAYS Diclofenac Sodium 1 % 2 gram application to Mar, 17 Jun, Active affected area Transdermal Three times a day for 30 day(s) Cyclobenzaprine HCl 10 MG 1 tablet as needed Mar,Apr, Active Orally once a day at bedtime for 20 days Metformin HCl 500 MG TAKE 2 TABLETS BY MOUTH Active TWICE DAILY WITH A MEAL for 30 Levemir FlexTouch 100 22 units daily and Aug, Active UNIT/ML titrate up 2 units every 2 days until FBG less 120 max of 50 units daily Subcutaneous daily for 90 days Tresiba FlexTouch 200 40 units in pm titrate Active UNIT/ML up 2 units every 3 days until fbg less 100 (max of 60 units daily) Subcutaneous once a day BusPIRone HCl 5 MG TAKE 1 TABLET BY MOUTH Active EVERY 6 HOURS NEEDED FOR ANXIETY for 30 Xanax 0.5MG 1 tablet Orally once a Activ e day prn anxiety attacks for 30 Gabapentin 300 MG 1 capsule Orally three Active times a day for 30 days Diclofenac Sodium 75 MG 1 tablet with food or Mar, Mar, Active milk Orally Twice a day prn pain for 10 days Fluticasone Propionate 50 1 spray in each nostril Mar, Active MCG/ACT Nasally Once a day for 30 day(s) BD Pen Needle Kylie 2nd Gen as directed SC once Active 32G X 4 MM daily for 90 days PROCEDURES No Information RESULTS No Results REASON FOR VISIT APPT. Request MEDICAL (GENERAL) HISTORY Type Description Date Surgical History No Surgical history information Goals Section No Information Health Concerns No Information MEDICAL EQUIPMENT No Information MENTAL STATUS No Information FUNCTIONAL STATUS No Information ASSESSMENTS No Information PLAN OF TREATMENT Medication Medication Name Sig Start Date Stop Date Cyclobenzaprine HCl 10 MG 1 tablet as needed Orally once a 20 2019Apr, day at bedtime for 20 days Diclofenac Sodium 75 MG 1 tablet with food or milk Orally MarMar, Twice a day prn pain for 10 days Diclofenac Sodium 1 % 2 gram application to affected Mar, 0 Jun, area Transdermal Three times a day for 30 day(s) Next Appt Details Provider Name:Anette Benjamin, 2020-04-20 04:0 0:00 PM, [address], [address], [place], [address], Insurance Providers Payer Name Payer Payer Insured Patient Coverage Coverage End Address Phone Name Relationship to Start Date Lui e Insured Ambetter from [phone] Lee AnnAditya self [address] [id number] A Health Plan [facility] [id number]
--- OUTSIDE RECORDS SUMMARY | 2020-05-16 09:42 | XMS REPORT ---
:1970 Author Organization [facility] Address [address] [facility] [address] [place] [address] Care Team Providers Name Role Phone Epi Unavailable [phone] PROBLEMS Type Condition ICD9-CM [id number] Onset Condition SNOMED Code Notes Code Code Dates Status Problem Fatty liver K76.0 Active 031228744 Problem Seasonal allergies J30.2 Active 939242891 Problem Decreased mobility R26.89 Active 4624810 Problem Uncontrolled type 2 E11.65 Active 282360725 diabetes mellitus with hyperglycemia Problem Gastroesophageal K21.9 Active 911478387 reflux disease, esophagitis presence not specified Problem Depression with F41.8 Active 298882803 anxiety Problem Closed nondisplaced S62.509A Active 404338354 fracture of phalanx of thumb, unspecified laterality, unspecified phalanx, initial encounter Problem Diabetic E11.42 Active 910126219 polyneuropathy associated with type 2 diabetes mellitus Problem Vitamin D E55.9 Active 26181324 deficiency Problem Mixed E78.2 Active 691385836 hyperlipidemia Problem Acute stress F43.0 Active 10621368 reaction Problem Panic disorder F41.0 Active 904335549 [episodic paroxysmal anxiety] ALLERGIES No Known Allergies ENCOUNTERS from 1970 to 2020-05-15 Encounter Location Date Provider Diagnosis [facility] [address], Chano Chowdary Pain of left thumb [facility] [address] and [place], [place] [id number] of distal phala nx of left thumb, subsequent enco unter for fracture wi th routine healing S62.522D IMMUNIZATIONS Vaccine Route Administration Date Status Flucelvax [...] VITAL SIGNS Height 64 in Apr, Weight 169 lbs Apr, Temperature 97.3 degrees Fahrenheit Apr, BMI 29.01 kg/m2 Apr, Blood pressure systolic 113 mm Hg Apr, Blood pressure diastolic 59 mm Hg Apr, MEDICATIONS Medication SIG (Take, Route, Notes Start Date End Date Status Frequency, Duration) Levemir FlexTouch 100 22 units daily and Aug, Active UNIT/ML titrate up 2 units every 2 days until FBG less 120 max of 50 units daily Subcutaneous daily for 90 days Omeprazole 40 MG 1 capsule Orally Once a Active day for 90 days BD Pen Needle Kylie 2nd as directed SC once Active Gen 32G X 4 MM daily for 90 days Diclofenac Sodium 1 % 2 gram application to 20 Mar, 2020 1 7 Jun, 2020 Active affected area Transdermal Three times a day for 30 day(s) Xanax 0.5MG 1 tablet Orally once a A ctive day prn anxiety attacks for 30 Steglatro 15 MG 1 tablet Orally Once a 05 Apr, 2020 4 Oct, 2020 Active day for 90 day(s) Gabapentin 300 MG 1 capsule Orally three Active times a day Xanax 0.5MG 1 tablet Orally once a A ctive day prn anxiety attacks for 30 days NovoFine Plus 32G X 4 as directed SC once Active MM daily Glimepiride 4 MG 1 tablet with breakfast Active or the first main meal of the day Orally Once a day FreeStyle Tay 14 Day as directed daily Active [place] - Metformin HCl 500 MG TAKE 2 TABLETS BY MOUTH Active TWICE DAILY WITH A MEAL for 30 FreeStyle Tay 14 Day USE DIRECTED EVERY Active Sensor - 14 DAYS Metformin HCl 500 MG 2 tablet [...] NEEDED FOR ANXIETY for 30 Fluticasone Propionate 1 spray in each nostril Mar, 9 Active 50 MCG/ACT Nasally Once a day for 30 day(s) PROCEDURES No Information RESULTS No Results REASON FOR VISIT F/U LEFT HAND PAIN MEDICAL (GENERAL) HISTORY Type Description Date Medical History Diabetic Type 2 Surgical History Hysterectomy Surgical History Gallbladder Goals Section No Information Health Concerns No Information MEDICAL EQUIPMENT No Information MENTAL STATUS No Information FUNCTIONAL STATUS No Information ASSESSMENTS Encounter Date Diagnosis Assessment Notes Treatment Notes Treatm ent Clinical Notes Apr, Pain of left thumb (ICD-10 - M79.645) Apr, Displaced fracture of distal phalanx of left thumb, subsequent encounter for fracture with routine healing (ICD-10 - S62.522D) Apr, Other -continue with nonoperative treatment -remain in thumb spica splint for 3 weeks -f/u in 3 weeks for reevaluation and xrays of the left thumb PLAN OF TREATMENT Treatment Notes Test Name Order Date X-RAY EXAM HAND 3 VIEWS ([id number]) 2020-05-15 Next Appt Details 3 Weeks Reason: Provider Name:Chano De La Pazga, 2020-05-29 0 9:00:00 AM, [address], [place], [address], Provider Name:Anette Benjamin, 2020-06-01 08:4 0:00 AM, [address], [place], [address], Insurance Providers Payer Name Payer Payer Insured Patient Coverage Coverage End Address Phone Name Relationship to Start Date Lui e Insured Ambetter from [phone] Aditya Nance self [address] [id number] A Health Plan [facility] [id number]
[2020-05-16] MEDS ORDERED: ONDANSETRON 4 MG/2 ML VIAL ONE (10:39)
[2020-05-16] MEDS ORDERED: MORPHINE 4 MG/ML SYR ONE (10:39)
[2020-05-16] MEDS ORDERED: NA CHLORIDE 0.9% 1,000 ML ONE (10:39)
[2020-05-16 11:01] LABS: Basophils % 0.8 % (0-1.3); Hematocrit 39.4 % (36.0-45.0); Lymphocytes % 30.8 % (15.3-44.8); MPV 8.9 fL (7.6-11.3); RBC Red Blood Cell Count 4.74 M/uL (3.86-4.86)
[2020-05-16 11:14] LABS: ALT/SGPT 24 U/L (12-78); AST/SGOT 17 U/L (15-37); Albumin 3.5 g/dL (3.4-5.0); Alkaline Phosphatase 104 U/L (45-117); BUN Blood Urea Nitrogen 9 mg/dL (7-18); Bicarbonate 34 mmol/L (21-32); Bilirubin Direct 0.1 mg/dL (0-0.2); Bilirubin Total 0.4 mg/dL (0.2-1.0); Glucose Level 163 mg/dL (74-106); Lipase 208 U/L (73-393); Potassium 4.7 mmol/L (3.5-5.1); Protein, Total 7.9 g/dL (6.4-8.2); Sodium Level 141 mmol/L (136-145)
--- NOTE | 2020-05-16 11:21 | RAD REPORT ---
EXAM DESCRIPTION: CT - Abdomen Pelvis W Contrast - 05/16/2020 10:52 am CLINICAL HISTORY: ABD PAIN, history of pancreatitis COMPARISON: Abdomen Pelvis W Contrast dated 02/15/2020 TECHNIQUE: Biphasic, helical CT imaging of the abdomen and pelvis was performed following 100 ml non -ionic IV contrast. Oral contrast was given. All CT scans are performed using dose optimization technique as appropriate and may include automated exposure control or mA/KV adjustment according to patient size. FINDINGS: No suspicious findings in the lung bases. Liver attenuation indicates mild diffuse fatty infiltration. No portal vein abnormality. There is fat infiltration into the pancreatic parenchyma with no pancreatitis or acute pancreatic process. Spleen is unremarkable gallbladder is absent. Biliary tree within normal limits. Symmetric renal function is seen with no hydronephrosis or suspicious renal mass. No pyelonephritis o r acute parenchymal process. No bladder abnormalities. No adrenal abnormalities. Uterus is absent. Ov nithin are unremarkable. No stomach or small bowel acute finding. Appendix is normal. Moderate stool volume present throughout the colon with no active colon process identifiable. Left-sided diverticulosis is mild. No free air, free fluid or inflammatory stranding. No hernia, mass or bulky lymphadenopathy. No suspicious bony findings. IMPRESSION: Contrast enhanced CT abdomen and pelvis showing no acute or emergent finding. Nonacute findings are detailed in the body of the report similar to January 2020.
--- NOTE | 2020-05-16 11:28 | ER ---
Nurse's Notes [facility] Name: Dena Nance Age: 50 yrs Sex: Female : 1970 Arrival Date: 05/16/2020 Time: 09:29 Bed 26 Private MD: Diagnosis: Upper abdominal pain, unspecified Presentation: 05/16 09:53 Chief complaint: Patient states: RUQ pain that began 30 minutes ago. Described as ss stabbing. Coronavirus screen: Client denies travel out of the [place] in the last 14 days. Ebola Screen: Patient denies exposure to infectious person. Patient denies travel to an Ebola-affected area in the 21 days before illness onset. Initial Sepsis Screen: Does the patient meet any 2 criteria? No. Patient's initial sepsis screen is negative. Does the patient have a suspected source of infection? No. Patient's initial sepsis screen is negative. Risk Assessment: Do you want to hurt yourself or someone else? Patient reports no desire to harm self or others. Onset of symptoms was May 16, 2020. 09:53 Method Of Arrival: Ambulatory ss 09:53 Acuity: MARIANA 3 ss Historical: - Allergies: 09:56 NKA; ss - PMHx: 09:56 Diabetes - IDDM; Diverticulitis; fatty liver; Pancreatitis; ss - Immunization history:: Adult Immunizations up to date. - Social history:: Smoking status: Patient denies any tobacco usage or history of. Screenin:20 Abuse screen: Denies threats or abuse. Nutritional screening: No deficits noted. em Tuberculosis screening: No symptoms or risk factors identified. Fall Risk None identified. Assessment: 10:20 General: Appears in no apparent distress. uncomfortable, Behavior is calm, cooperative, em appropriate for age, Denies fever. Pain: Complains of pain in anterior aspect of right lateral abdomen Pain currently is 8 out of 10 on a pain scale. Pain began 30 min ago. Neuro: Level of Consciousness is awake, alert, obeys commands, Oriented to person, place, time, situation, Appropriate for age. Cardiovascular: Capillary refill < 3 seconds Patient's skin is warm and dry. Respiratory: Airway is patent Respiratory effort is even, unlabored, Respiratory pattern is regular, symmetrical. GI: Patient currently denies diarrhea, nausea, vomiting. Derm: Skin is intact, is healthy with good turgor, Skin is pink, warm \T\ dry. Musculoskeletal: Capillary refill < 3 seconds, Range of motion: intact in all extremities. 10:46 Reassessment: wheeled to CT via wheelchair. em 11:52 Reassessment: reports pain is getting worse after the morphine, pt is up for discharge, em provider notified, received VO for Toradol 15 mg IVP x 1. 12:19 Reassessment: Patient appears in no apparent distress at this time. reports pain is em slightly better, rates pain 7/10, provider notified. Vital Signs: 09:53 BP 126 / 59; Pulse 85; Resp 15; Temp 97.9(TE); Pulse Ox 100% on R/A; Weight 77.11 kg; ss Height 5 ft. 4 in. (162.56 cm); Pain 8/10; 11:00 BP 128 / 68; Pulse 81; Resp 18; Pulse Ox 99% on R/A; em 09:53 Body Mass Index 29.18 (77.11 kg, 162.56 cm) ss ED Course: 09:29 Patient arrived in ED. ds1 09:56 Triage completed. ss 09:56 Arm band placed on right wrist. ss 09:59 Valentina Myles [facility]-C [facility]. kb 09:59 Francisco Hoskins MD is Attending Physician. kb 10:12 Edison Carvajal, RN is Primary Nurse. em 10:20 Patient has correct armband on for positive identification. Bed in low position. Call em light in reach. Side rails up X2. Pulse ox on. NIBP on. 10:32 Initial lab(s) drawn, by me, sent to lab. Inserted saline lock: 20 gauge in right em antecubital area, using aseptic technique. Blood collected. 10:52 CT Abd/Pelvis - IV Contrast Only In Process Unspecified. EDMS 12:34 No provider procedures requiring assistance completed. IV discontinued, intact, em bleeding controlled, No redness/swelling at site. Pressure dressing applied. Administered Medications: 10:32 Drug: Zofran (Ondansetron) 4 mg Route: IVP; Site: right antecubital; em 11:30 Follow up: Response: No adverse reaction em 10:32 Drug: NS 0.9% 1000 ml Route: IV; Rate: 1000 ml; Site: right antecubital; em 12:35 Follow up: IV Status: Order to discontinue infusion; IV Intake: 500ml em 10:34 Drug: morphine 4 mg Route: IVP; Site: right antecubital; em 11:30 Follow up: Response: No adverse reaction; No change in condition; Pain is unchanged, em physician notified; RASS: Alert and Calm (0) 11:56 Drug: TORadol - Ketorolac 15 mg Route: IVP; Site: right antecubital; em 12:23 Follow up: Response: No adverse reaction; Marked relief of symptoms; Pain is decreased em 12:32 Drug: Pepcid 20 mg Route: IVP; Site: right antecubital; em 12:33 Follow up: Response: Medication administered at discharge. em 12:32 Drug: GI Cocktail without - (Maalox Suspension 30 ml, Lidocaine Liquid 2 % 15 em ml) Route: PO; 12:33 Follow up: Response: Medication administered at discharge. em 12:32 Drug: [place] 10 mg-325 mg 1 tabs Route: PO; em 12:33 Follow up: Response: Medication administered at discharge. em Intake: 12:35 IV: 500ml; Total: 500ml. em Outcome: 11:27 Discharge ordered by . kb 12:34 Discharged to home ambulatory. em 12:34 Condition: stable 12:34 Discharge instructions given to patient, Instructed on discharge instructions, follow up and referral plans. medication usage, Demonstrated understanding of instructions, follow-up care, medications, Prescriptions given X 1. 12:35 Patient left the ED. em Signatures: Dispatcher [employer] Valentina Dickinson, HEAVEN SALDANA-Edison Sykes, RN RN Karina Tejada ds1 Yeni Granados RN RN
--- NOTE | 2020-05-16 11:28 | EDPHYS ---
Physician Documentation [facility] Name: Dena Nance Age: 50 yrs Sex: Female : 1970 Arrival Date: 05/16/2020 Time: 09:29 Bed 26 Private MD: ED Physician Francisco Hoskins HPI: 05/16 11:18 This 50 yrs old Female presents to ER via Ambulatory with complaints of R Side kb Pain. 11:18 The patient presents with abdominal pain in the right upper quadrant. Onset: The kb symptoms/episode began/occurred this morning. The symptoms do not radiate. Associated signs and symptoms: none. The symptoms are described as stabbing. Modifying factors: The symptoms are alleviated by nothing, the symptoms are aggravated by pressure. Severity of pain: At its worst the pain was moderate severe in the emergency department the pain is unchanged. The patient has not experienced similar symptoms in the past. The patient has not recently seen a physician. Historical: - Allergies: 09:56 NKA; ss - PMHx: 09:56 Diabetes - IDDM; Diverticulitis; fatty liver; Pancreatitis; ss - Immunization history:: Adult Immunizations up to date. - Social history:: Smoking status: Patient denies any tobacco usage or history of. ROS: 11:17 Constitutional: Negative for fever, chills, and weight loss, Cardiovascular: Negative kb for chest pain, palpitations, and edema, Respiratory: Negative for shortness of breath, cough, wheezing, and pleuritic chest pain, Back: Negative for injury and pain, MS/Extremity: Negative for injury and deformity, Skin: Negative for injury, rash, and discoloration, Neuro: Negative for headache, weakness, numbness, tingling, and seizure. 11:17 Abdomen/GI: Positive for abdominal pain, Negative for nausea, vomiting, and diarrhea. Exam: 11:17 Constitutional: This is a well developed, well nourished patient who is awake, alert, kb and in no acute distress. Head/Face: Normocephalic, atraumatic. Chest/axilla: Normal chest wall appearance and motion. Nontender with no deformity. No lesions are appreciated. Cardiovascular: Regular rate and rhythm with a normal S1 and S2. No gallops, murmurs, or rubs. Normal PMI, no JVD. No pulse deficits. Respiratory: Lungs have equal breath sounds bilaterally, clear to auscultation and percussion. No rales, rhonchi or wheezes noted. No increased work of breathing, no retractions or nasal flaring. Back: No spinal tenderness. No costovertebral tenderness. Full range of motion. Skin: Warm, dry with normal turgor. Normal color with no rashes, no lesions, and no evidence of cellulitis. MS/ Extremity: Pulses equal, no cyanosis. Neurovascular intact. Full, normal range of motion. Neuro: Awake and alert, GCS 15, oriented to person, place, time, and situation. Cranial nerves II-XII grossly intact. Motor strength 5/5 in all extremities. Sensory grossly intact. Cerebellar exam normal. Normal gait. 11:17 Abdomen/GI: Inspection: abdomen appears normal, Bowel sounds: normal, in all quadrants, Palpation: soft, in all quadrants, moderate abdominal tenderness, in the right upper quadrant. Vital Signs: 09:53 BP 126 / 59; Pulse 85; Resp 15; Temp 97.9(TE); Pulse Ox 100% on R/A; Weight 77.11 kg; ss Height 5 ft. 4 in. (162.56 cm); Pain 8/10; 11:00 BP 128 / 68; Pulse 81; Resp 18; Pulse Ox 99% on R/A; em 09:53 Body Mass Index 29.18 (77.11 kg, 162.56 cm) ss MDM: 10:08 Patient medically screened. kb 11:14 Data reviewed: vital signs, nurses notes. Data interpreted: Pulse oximetry: on room air kb is 100 %. Interpretation: normal. 11:27 Counseling: I had a detailed discussion with the patient and/or guardian regarding: the kb historical points, exam findings, and any diagnostic results supporting the discharge/admit diagnosis, lab results, radiology results, the need for outpatient follow up, a family practitioner, to return to the emergency department if symptoms worsen or persist or if there are any questions or concerns that arise at home. 05/16 10:20 Order name: Basic Metabolic Panel; Complete Time: 11:18 kb 05/16 10:20 Order name: CBC with Diff; Complete Time: 11:09 kb 05/16 10:20 Order name: Hepatic Function; Complete Time: :18 kb 05/16 10:20 Order name: Lipase; Complete Time: 11:18 kb 05/16 12:08 Order name: CREATININE WHOLE BLOOD; Complete Time: 12:21 EDMS 05/16 10:20 Order name: CT Abd/Pelvis - IV Contrast Only; Complete Time: 11:26 kb 05/16 10:20 Order name: IV Saline Lock; Complete Time: 10:38 kb 05/16 10:20 Order name: Labs collected and sent; Complete Time: 10:38 kb Administered Medications: 10:32 Drug: Zofran (Ondansetron) 4 mg Route: IVP; Site: right antecubital; em 11:30 Follow up: Response: No adverse reaction em 10:32 Drug: NS 0.9% 1000 ml Route: IV; Rate: 1000 ml; Site: right antecubital; em 12:35 Follow up: IV Status: Order to discontinue infusion; IV Intake: 500ml em 10:34 Drug: morphine 4 mg Route: IVP; Site: right antecubital; em 11:30 Follow up: Response: No adverse reaction; No change in condition; Pain is unchanged, em physician notified; RASS: Alert and Calm (0) 11:56 Drug: TORadol - Ketorolac 15 mg Route: IVP; Site: right antecubital; em 12:23 Follow up: Response: No adverse reaction; Marked relief of symptoms; Pain is decreased em 12:32 Drug: Pepcid 20 mg Route: IVP; Site: right antecubital; em 12:33 Follow up: Response: Medication administered at discharge. em 12:32 Drug: GI Cocktail without - (Maalox Suspension 30 ml, Lidocaine Liquid 2 % 15 em ml) Route: PO; 12:33 Follow up: Response: Medication administered at discharge. em 12:32 Drug: [place] 10 mg-325 mg 1 tabs Route: PO; em 12:33 Follow up: Response: Medication administered at discharge. em Disposition: 13:21 Co-signature as Attending Physician, Francisco Hoskins MD I agree with the assessment and kdr plan of care. Disposition: 05/16/20 11:27 Discharged to Home. Impression: Upper abdominal pain, unspecified. - Condition is Stable. - Discharge Instructions: Abdominal Pain, Adult, [id number]. - Prescriptions for Bentyl 20 mg Oral Tablet - take 1 tablet by ORAL route every 6 hours As needed; 20 tablet. - Medication Reconciliation Form, Thank You Letter, Antibiotic Education, Prescription Opioid Use form. - Follow up: Private Physician; When: 2 - 3 days; Reason: Recheck today's complaints, Continuance of care, Re-evaluation by your physician. Follow up: Emergency Department; When: As needed; Reason: Worsening of condition. Signatures: Dispatcher [employer] [facility] Valentina Myles, SHANA-Ari SALDANA-Francisco Qiu MD MD [facility] Edison Carvajal, RN RN em Yeni Granados RN RN ss Corrections: (The following items were deleted from the chart) 10:20 09:58 Abdomen Limited+[id number].RAD.BRZ ordered. [facility] 12:35 11:27 05/16/2020 11:27 Discharged to Home. Impression: Upper abdominal pain, em unspecified. Condition is Stable. Forms are Medication Reconciliation Form, Thank You Letter, Antibiotic Education, Prescription Opioid Use. Follow up: Private Physician; When: 2 - 3 days; Reason: Recheck today's complaints, Continuance of care, Re-evaluation by your physician. Follow up: Emergency Department; When: As needed; Reason: Worsening of condition. kb
[2020-05-16] MEDS ORDERED: KETOROLAC 30 MG/ML INJ ONE (12:07)
[2020-05-16] MEDS ORDERED: MAGNES/ALUMIN/SIMET 30ML UCUP ONE (12:37)
[2020-05-16] MEDS ORDERED: HYDROCODONE/APAP 10/325 TAB ONE (12:38)
[2020-05-16] MEDS ORDERED: LIDOCAINE VISCOUS 2% SOLN 15 ML UDC ONE (12:38)
[2020-05-16] MEDS ORDERED: FAMOTIDINE 20 MG/2 ML VIAL IV ONE (12:38)
[2020-05-16 17:47] VITALS: TEMP 97.9
[2020-05-16 17:51] VITALS: BP 128/68; O2SAT 99
== END 2020-05-16 12:35 | disposition home or self-care (01) ==
LOC: ER 09:27
DX: R10.11 Right upper quadrant pain (principal)
CPT/HCPCS: 96361; 85025; 80048; 36415; 82565; 80076; 83690; 74177; 96375; 96374; 99284; Q9967; J7030; J2405

== ENCOUNTER 2020-08-02 15:26 | Emergency (ER) | payer OTHER ==
--- OUTSIDE RECORDS SUMMARY | 2020-08-02 15:28 | XMS REPORT | Continuity of Care Document ---
:1970 Author Organization [facility] t Address Counts include 234 beds at the [facility] Chang [address] [place] [id number] Care Team Providers Name Role Phone Sharpless Primary Care Physician AIDA VELÁSQUEZ Attending Clinician Unavailable Problems This patient has no known problems. Allergies, Adverse Reactions, Alerts This patient has no known allergies or adverse reactions. Social History Social Habit Start Date Stop Date Quantity Comments Source Sex Assigned At [facility] Tobacco use and 2017-05-09 2017-05-09 Never used [facility] - exposure 00:00:00 00:00:00 [facility] Smoking Status Start Date Stop Date Source Never smoker [facility] Medications Ordered Filled Start Stop Current [...] 10:01: daily. Medi michele 10 mg 13 [facility] tablet sertraline 2016-06 Yes 50mg QD Take [address] ([place]) 50 -10 by mouth [facility] - MG tablet 10:01: daily. Medica l 13 [address] metFORMIN 2016-06 Yes 500mg Take 500 [facility] [...] HCl HCl with a [facility] - meal [facility] Immunizations Ordered Filled Immunization Date Status Comments Sour e Immunization Name Name Flucelvax - Flucelvax - 2019-03-[address] [facility] - multidose vial multidose vial 00:00:00 [facility] Out[facility] Procedures This patient has no known procedures. Encounters Start End Encounter Admission Attending Care Care Encounter Source Date/Time Date/Time Type Type Clinicians Facility Department ID 2020-07-31 2020-07-31 Outpatient [facility] [id number] [facility] 2020-06-26 2020-06-26 Outpatient [facility] [id number] [facility] 2020-06-15 2020-06-15 Outpatient [facility] [id number] [facility] 2020-06-14 2020-06-14 [facility] [id number] 2020-06-12 2020-06-12 Outpatient [facility] [id number] [facility] 2020-06-01 2020-06-01 Outpatient [facility] [id number] [facility] 2020-05-29 2020-05-29 [facility] [id number] [facility] 2020-05-08 2020-05-08 Out[facility] [id number] [facility] 2020-05-04 2020-05-04 [facility] [id number] [facility] 2020-04-24 2020-04-24 [facility] [id number] [facility] 2020-04-20 2020-04-20 [facility] [id number] [facility] 2020-04-19 2020-04-19 Out[facility] [id number] [facility] 2020-04-18 2020-04-18 Out[facility] [id number] [facility] 2020-04-17 2020-04-17 Out[facility] [id number] [facility] 2020-04-11 2020-04-11 Outpatient [id number] [facility] 09:07:00 09:07:00 2020-01-26 2020-01-26 [facility] [id number] 14:36:00 14:36:00 [place] [employer] s - [facility] l Medicine Outpati ent Clinics 2020-01-24 2020-01-24 [facility] [id number] 13:45:00 13:45:00 [place] [employer] [place] [facility] - [facility] Medicine Outpati ent Clinics 2020-01-19 2020-01-19 [facility] [id number] 08:40:00 08:40:00 [place] [employer] s - Drive [facility] Family [facility] l Medicine Outpati ent Clinics 2020-01-18 2020-01-18 [facility] [id number] 15:20:00 15:20:00 [place] [employer] [facility] Medicine Outpati ent Clinics 2020 2020 [facility] [id number] 14:44:00 14:44:00 [place] [employer] [facility] Medicine Outpati ent Clinics 2020 2020 [facility] [id number] 09:39:00 09:39:00 t [employer] [facility] Medicine Outpati ent Clinics 2019-12-24 2019-12-24 [facility] [id number] 17:41:00 17:41:00 t [employer] [facility] Medicine Outpati ent Clinics 2019-12-21 2019-12-21 [facility] [id number] 09:20:00 09:20:00 t [employer] [facility] Medicine Outpati ent Clinics 2019-10-27 2019-10-27 [facility] [id number] 14:08:00 14:08:00 t [employer] [facility] Medicine Outpati ent Clinics 2019-10-13 2019-10-13 [facility] [id number] 11:40:00 11:40:00 t [employer] [facility] Medicine Outpati ent Clinics 2019-10-04 2019-10-04 [facility] [id number] 08:00:00 08:00:00 t [employer] [facility] Medicine Outpati ent Clinics 2019-08-26 2019-08-26 [facility] [id number] [facility] 09:30:00 09:30:00 t [employer] [facility] Medicine Outpati ent Clinics 2019-08-25 2019-08-25 [facility] [id number] 11:51:00 11:51:00 t [employer] [facility] Medicine Outpati ent Clinics 2019-08-24 2019-08-24 [facility] [id number] [facility] 14:40:00 14:40:[address] [place] [facility] - Drive [facility] Family Medicine l Medicine Outpati ent Clinics 2019-08-17 2019-08-17 [facility] [id number] 11:59:00 11:59:[address] [facility] - Drive [facility] Medicine l Medicine Outpati ent Clinics 2019-07-05 2019-07-05 [facility] [id number] [facility] 16:00:00 16:00:[address] [facility] - Drive [facility] Family Medicine l Medicine Outpati ent Clinics 2019-06-22 2019-06-22 [facility] [id number] 11:53:00 11:53:[address] [facility] - Drive [facility] Medicine l Medicine Outpati ent Clinics 2019-06-22 2019-06-22 [facility] [id number] 10:22:00 10:22:00 [place] [employer] [place] [facility] - Drive [facility] Medicine l Medicine Outpati ent Clinics 2019-05-24 2019-05-24 [facility] [id number] 10:00:00 10:00:00 [place] [employer] [place] [facility] - Drive [facility] Medicine l Medicine Outpati ent Clinics 2019-05-05 2019-05-05 [facility] [id number] 15:44:00 15:44:00 [place] [employer] [place] [facility] - Drive [facility] Medicine l Medicine Outpati ent Clinics 2019-05-04 2019-05-04 [facility] [id number] 15:20:00 15:20:00 [place] [employer] [place] [facility] - Drive [facility] Medicine l Medicine Outpati ent Clinics 2019-04-27 2019-04-27 [facility] [id number] 17:18:00 17:18:[address] [place] [facility] - Drive [facility] Medicine l Medicine Outpati ent Clinics 2019-04-26 2019-04-26 [facility] [id number] 17:24:00 17:24:00 [place] [employer] [place] s - Drive [facility] Medicine l Medicine Outpati ent Clinics 2019-04-20 2019-04-20 Outpatient Jam Rivera [id number] [facility] 08:27:00 08:27:00 [facility] 2019-04-12 2019-04-12 Outpatient Jam Rivera [id number] [facility] 11:00:00 11:00:00 [facility] 2019-03-30 2019-03-30 Outpatient Jam Rivera [id number] [facility] 14:00:00 14:00:00 [facility] Results Test Description Test Time Test Comments Results Result Sourc e Comments MM, STEREOTACTIC 2017-04-30 Reason for Addendum BeginsMRN#: BIOPSY, BREAST, 5 Exam:->calcificati [id number]: LEFT 15:59:00 on 05/14/2017 Lizzette Velásquez M.D. 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 Addendum EndsMRN#: [id number] - MM, STEREOTACTIC BIOPSY, BREAST, LEFTSTEREOTACTIC GUIDED [...] correct location, five specimens were obtained using Runfaces device. A clip was inserted into the [...] the calcifications. Lizzette Velásquez M.D. pth/penrad:05/09/2017 11:07:57 Brim Shaper: Felicia Rizzo RT(R)(M), [facility] 12883 UE EXAM 2017-04-30 Surgical Pathology 3 Report 12:48:00 Case: [id number] Authorizing Provider: Lizzette Velásquez MD Collected: 05/09/2017 1110 Ordering Location: [facility] Received: 05/09/2017 1312 Pathologist: Jackie Maradiaga MD Specimen: Breast, Left, LEFT MIDDLE 12 BREAST CALCIFICATION BREAST, LEFT, MIDDLE 12 O'CLOCK, CALCIFICATIONS, STEREOTACTIC CORE NEEDLE BIOPSY: - HYALINIZED FIBROADENOMA - COLUMNAR CELL HYPERPLASIA - COLUMNAR CELL CHANGES - MICROCALCIFICATIONS, COARSE, ASSOCIATED WITH FIBROADENOMA Signing Pathologist Direct Phone Line: [phone] ally signed by Jackie Maradiaga MD on 05/12/2017 at 12:48 PMIn the sections examined, no atypical hyperplasia or carcinoma is identified.[id number] sing lesion Left middle 12 o'clock breast calcifications The specimen is received in a formalin-filled container labeled with the patient's information and labeled "left middle 12 o'clock breast calcifications" and consists of multiple yellow-white breast core biopsies ranging in length from 0.6 to 2.5 cm.Ink code: Black.The specimen is submitted entirely in A1 and A2. CG/ewPerformed.[facility], Department of Pathology, [address] [place] [address], [facility] [place] [address], MM, DIGITAL, 2017-04-30 Left breast MRN#: UNILATERAL, 0 calcifications [id number] - CONFER MARTA, 11:07:00 MM, DIGITAL, MAMMO, [...] pathology results. Lizzette Velásquez M.D. pth/:05/09/2017 11:07:15 Brim Shaper: Felicia IRVIN (R)), [facility] Mammogram BI-RADS: Post-procedure mammogram for marker placement [id number] , MAMMO, 2017-04-30 Reason for MRN#: SPECIMEN, 0 exam:->Left breast [id number] - RADIOGRAPH, LEFT 11:06:00 calcifications MM, MAMMO, SPECIMEN, RADIOGRAPH, LEFTSPECIMEN LEFT BREAST: 05/09/2017Five stereotactic guided biopsy specimens were imaged for the area of calcifications located in the left breast at 12 o'clock middle depth. IMPRESSION: SPECIMENThe imaged specimens includes the calcifications. Lizzette Velásquez M.D. pth/:05/09/2017 11:06:40 Brim Shaper: Felicia BELLA (R)(Phil), [facility] [id number]
--- OUTSIDE RECORDS SUMMARY | 2020-08-02 15:28 | XMS REPORT | Clinical Summary ---
:1970 Author Organization [facility] Address [address] [place] [address] Care Team Providers Name Role Phone Dolores [...] Not on file Results Not on fileafter 08/02/2019 Insurance Payer Benefit Plan / Subscriber ID Effective Dates Phone Addre ss Type Group [facility] JOSSY [id number] 2016-Robyn [phone] HMO/POS HEALTH CHOICE MRKTPLACE t 04 EXCHANGE (Work) [phone]
--- OUTSIDE RECORDS SUMMARY | 2020-08-02 15:29 | XMS REPORT ---
:1970 Author Organization [facility] Address [address], [address] [place] [address] Care Team Providers Name Role Phone Benjamin Unavailable [phone] PROBLEMS Type Condition ICD9-CM [id number] Onset Condition SNOMED Code Notes Code Code Dates Status Problem Uncontrolled type 2 E11.65 Active 169845174 diabetes mellitus with hyperglycemia Problem Depression with F41.8 Active 035176798 anxiety Problem Diabetic E11.42 Active 234093803 polyneuropathy associated with type 2 diabetes mellitus Problem Decreased mobility R26.89 Active 7111834 Problem Vitamin D E55.9 Active 55726977 deficiency Problem Mixed E78.2 Active 378469343 hyperlipidemia Problem Other chronic K29.50 Active 6302377 gastritis without hemorrhage Problem Seasonal allergies J30.2 Active 992421302 Problem Diverticulosis K57.90 Active 269596718 Problem Fatty liver K76.0 Active 106636889 Problem Acute stress F43.0 Active 84666455 reaction Problem Panic disorder F41.0 Active 415903046 [episodic paroxysmal anxiety] Problem Gastroesophageal K21.9 Active 733162009 reflux disease, esophagitis presence not specified Problem Closed nondisplaced S62.509A Active 445273341 fracture of phalanx of thumb, unspecified laterality, unspecified phalanx, initial encounter ALLERGIES No Known Allergies ENCOUNTERS from 1970 to 2020-06-04 Encounter Location Date Provider Diagnosis [facility] [address] [place], [facility] ont[facility] type 2 [facility] [address], [place] [address] hyperglycemia E11.65 ; Mixed hyperlipi demia E78.2 ; Depress ion with anxiety F41.8 ; Fatty liver K76.0 ; D iabetic polyneuropathy associated with type 2 diabetes mellit us E11.42 ; Other chronic gastritis witho ut hemorrhage K29. 50 ; Pain of left thumb M 79.645 ; Closed displace d fracture of dis olaf phalanx of left thumb, initial encount er S62.522A ; Epig astric pain R10.13 ; H iatal hernia K44.9 ; Diverticulosis K57.90 and Needs flu s hot Z23 IMMUNIZATIONS Vaccine Route Administration Date Status Afluria single dose IM Intramuscular Jun 01, 2020 Administere d Flucelvax - multidose vial IM Intramuscular Mar [...] No Information VITAL SIGNS Height 64 in May, Weight 169.2 lbs May, Temperature 97.4 degrees Fahrenheit May, BMI 29.04 kg/m2 May, Oximetry 98 % May, Respiratory Rate 16 /min May, Blood pressure systolic 116 mm Hg May, Blood pressure diastolic 61 mm Hg May, MEDICATIONS Medication SIG (Take, Route, Notes Start Date End Date Status Frequency, Duration) Metformin HCl 500 MG TAKE 2 TABLETS BY MOUTH Active TWICE DAILY WITH A MEAL for 30 Xanax 0.5MG 1 tablet Orally once a A ctive day prn anxiety attacks for 30 days Dicyclomine HCl 20 MG 1 tablet Orally Four May, Jun, Active times a day for 30 day(s) FreeStyle Tay 14 Day as directed daily Active Nogal - Diclofenac Sodium 1 % 2 gram application to Mar, 1 Jun, Active affected area Transdermal Three times a day for 30 day(s) Fluticasone Propionate 1 spray in each nostril Mar, Active 50 MCG/ACT Nasally Once a day for 30 day(s) NovoFine Plus 32G X 4 as directed SC once Active MM daily Gabapentin 300 MG 1 capsule Orally three Active times a day Steglatro 15 MG 1 tablet Orally Once a Active day for 90 day(s) Metformin HCl 500 MG 2 tablet with a meal Active Orally twice a day for 90 days BusPIRone HCl 5 MG TAKE 1 TABLET BY MOUTH Active EVERY 6 HOURS NEEDED FOR ANXIETY for 30 Xanax 0.5MG 1 tablet Orally once a A ctive day prn anxiety attacks for 30 FreeStyle Tay 14 Day USE DIRECTED EVERY Active Sensor - 14 DAYS BD Pen Needle Kylie 2nd as directed SC once Active Gen 32G X 4 MM daily for 90 days Glimepiride 4 MG 1 tablet with breakfast Active or the first main meal of the day Orally Once a day for 90 days Omeprazole 40 MG 1 capsule Orally Once a Active day for 90 days Trazodone HCl 50 MG 1 tablet at bedtime as May, Active needed Orally Once a day for 90 days Levemir FlexTouch 100 22 units daily and Aug, Active UNIT/ML titrate up 2 units every 2 days until FBG less 120 max of 50 units daily Subcutaneous daily for 90 days Tresiba FlexTouch 200 60units in pm titrate Active UNIT/ML up 2 units every 3 days until fbg less 100 (max of 70 units daily) Subcutaneous once a day for 90 days Sertraline HCl 100 MG 2 tablets Orally Once a Active day PROCEDURES No Information RESULTS No Results REASON FOR VISIT 1 mth f/u LOBBY, DM2, htn, hld, gerd, hiatal hernia, MEDICAL (GENERAL) HISTORY Type Description Date Medical History Diabetic Type 2 Medical History anxiety Surgical History Hysterectomy Surgical History Gallbladder Goals Section No Information Health Concerns No Information MEDICAL EQUIPMENT No Information MENTAL STATUS No Information FUNCTIONAL STATUS No Information ASSESSMENTS Encounter Date Diagnosis Assessment Notes Treatment Notes Treatm ent Clinical Notes May, Uncontrolled type 2 A1C is 8.0 not at sta rted on diabetes mellitus goal, low carb [address] with hyperglycemia ADA diet. Avoid 020 A1C (ICD-10 - E11.65) sodas, juices and 8.0 remember portion continue control. Take your insulin,m etfor medication as min and prescribed. Monitor glimeper giorgi. your blood sugar at home as directed and keep a log to bring back with you to your next visit for review. Schedule your annual diabetic eye exam with your eye doctor to screen for diabetic retinopathy. Check your feet daily to make sure you have no open wounds. May, Mixed hyperlipidemia LDL= 90 ( goal LDL (ICD-10 - E78.2) less than 70 if you have heart [...] in AM to help lower bad cholesterol. May, Depression with It is important to anxiety (ICD-10 - exercise regularly F41.8) to improve concentration, motivation, memory, and mood [...] to improve and regulate stress and mood. May, Fatty liver (ICD-10 --consider order US - K76.0) of liver to monitor fatty liver once every 1-2 years to make sure no further progression to steatohepatitis or cirrhosis. lifestyle modifications recommended to lower liver enzymes which are released when there is damage to your liver cells. Maintain a low fat diet, exercise and weight loss. will monitor liver enzymes. -Avoid meds that may injure liver including tylenol ( Acetaminophen) and alcohol. -- Try otc vitamins milk thistle and berberine which may help with liver health to cleanse and repair the l iver - Recommend to try juicing/ eating salad for breakfast and lunch and regular meal at dinner. - To lose weight decrease daily caloric intake by 500 calories per day. - May, Diabetic It is important to polyneuropathy check your feet associated with type daily to makes sure 2 diabetes mellitus you do not have any (ICD-10 - E11.42) open cuts or sores in between your toes and soles of you feet because you may not be able to feel sores or wounds due to lack of sensation in feet due to diabetic neuropathy. May, Other chronic gastritis without hemorrhage (ICD-10 - K29.50) May, Pain of left thumb cont f/u with ortho, (ICD-10 - M79.645) immobilize thumb use thumb splint whenever possible. May, Closed displaced -proceed with fracture of distal nonoperative phalanx of left treatment thumb, initial Follow-up with Dr. flores (ICD-10 - Epi S62.522A) -placed in thumb spica splint for approx 2 to 3- wks May, Epigastric pain (ICD-10 - R10.13) May, Hiatal hernia (ICD-10 - K44.9) May, Diverticulosis -- Maintain a low (ICD-10 - K57.90) residue diet to reduce volume of stools while prolonging intestinal transit time and help decrease bowel activity. This diet means eating foods that leave minimal residue after digestion with goal of fewer smaller bowel movements each day. Low residue foods include ( low resideu diet means avoiding breads, cereal, white rice, vegetable adn fruit juice without pupl and dairy products) well cooked veggies without skin or seeds, whte bread without nuts or seeds, white rice, fresh fruit such as bannanas, watermeton, honeydew, egs, fish, pultry and dairy products. May, Needs flu shot Influenza (ICD-10 - Z23) vaccination given no acute reaction while in clinic. advised to massage and move arm to prevent pain and swelling. May, Other -- Medications reviewed and updated. -- Dietary and Lifestyle modifications discussed with patient regarding low fat low salt diet diet, exercise and weight management. -- Treatment options, risks and benefits, side effects reviewed in detail. Patient accepts risk. -- Advised on signs/symptoms to monitor and when to call clinic and/or visit the nearest ER. Patient verbalized understanding and agreed with plan . -- Greater than 25 minutes was spent with patient during this encounter, of which >50% of the time was spent counseling and coordinating care including but not limited to discussion of test results, diagnostic or treatment recommendations, prognosis, risks and benefits of management options, instructions, education, compliance and or risk reduction. take precautions to prevent blake, if worsens or becomes infected call physician. keep affected area clean and dry. PLAN OF TREATMENT Medication Medication Name Sig Start Date Stop Date Gabapentin 300 MG 1 capsule Orally three times a day Metformin HCl 500 MG 2 tablet with a meal Orally twice a day for 90 days FreeStyle Tay 14 Day Sensor USE DIRECTED EVERY 14 DAYS - NovoFine Plus 32G X 4 MM as directed SC once daily Steglatro 15 MG 1 tablet Orally Once a day for 90 day(s) Trazodone HCl 50 MG 1 tablet at bedtime as needed May, Orally Once a day for 90 days Dicyclomine HCl 20 MG 1 tablet Orally Four times a May, Jun, day for 30 day(s) Xanax 0.5MG 1 tablet Orally once a day prn anxiety attacks for 30 days Glimepiride 4 MG 1 tablet with breakfast or the first main meal of the day Orally Once a day for 90 days Tresiba FlexTouch 200 UNIT/ML 60units in pm titrate up 2 units every 3 days until fbg less 100 (max of 70 units daily) Subcutaneous once a day for 90 days Sertraline HCl 100 MG 2 tablets Orally Once a day FreeStyle Tay 14 Day Nogal as directed daily - Treatment Notes Assessment Notes Clinical Notes Uncontrolled [...] make sure you have no open wounds. Mixed hyperlipidemia LDL= 90 ( goal LDL [...] intake by 500 calories per day. - Diabetic polyneuropathy It is important to check your feet associated with type 2 daily to makes sure you do not have diabetes mellitus any open cuts or sores in between your toes and soles of you feet because you may not be able to feel sores or wounds due to lack of sensation in feet due to diabetic neuropathy. Pain of left thumb cont f/u with ortho, immobilize thumb use thumb splint whenever possible. Closed displaced fracture -proceed with nonoperative of distal phalanx of left treatmentFollow-up with Dr. junior, initial encounter Epi-placed in thumb spica splint f or approx 2 to 3- wks Diverticulosis -- Maintain a low residue diet to reduce volume of stools while prolonging intestinal transit time and help decrease bowel activity. This diet means eating foods that leave minimal residue after digestion with goal of fewer smaller bowel movements each day.Low residue foods include ( low resideu diet means avoiding breads, cereal, white rice, vegetable adn fruit juice without pupl and dairy products) well cooked veggies without skin or seeds, whte bread without nuts or seeds, white rice, fresh fruit such as bannanas, watermeton, honeydew, egs, fish, pultry and dairy products. Needs flu shot Influenza vaccination given no acute reaction while in clinic. advised to massage and move arm to prevent pain and swelling. Treatment Notes Test Name Order Date Lipid Panel w/ Chol/HDL Ratio 2020-06-04 Microalbumin, Random Urine 2020-06-04 Hemoglobin A1c 2020-06-04 Comp. Metabolic Panel (14) (CMP) 2020-06-04 CBC With Differential/Platelet 2020-06-04 Next Appt Details 2 Months labs 1 week prior Reason: Provider Name:Chano De La Pazga, 2020-06-26 0 8:30:00 AM, [address] [facility] , [address], [place], [address], Provider Name:Anette Benjamin, 2020-07-27 08:3 0:00 AM, [address], [address], [place], [address], Provider Name:Anette Benjamin 2020-08-03 08:2 0:00 AM, [address], [address], [place], [address], Insurance Providers Payer Name Payer Payer Insured Patient Coverage Coverage End Address Phone Name Relationship to Start Date Lui e Insured Ambetter from [phone] Aditya Nance self [address] [place] [id number] [facility] [phone]"
--- OUTSIDE RECORDS SUMMARY | 2020-08-02 15:29 | XMS REPORT ---
:1970 Author Organization [facility] Address [address], [address] [place] [address] Care Team Providers Name Role Phone Benjamin Unavailable [phone] PROBLEMS Type Condition ICD9-CM [id number] Onset Condition SNOMED Code Notes Code Code Dates Status Problem Diabetic E11.42 Active 504149171 polyneuropathy associated with type 2 diabetes mellitus Problem Uncontrolled type 2 E11.65 Active 024144359 diabetes mellitus with hyperglycemia Problem Fatty liver K76.0 Active 713051073 Problem Depression with F41.8 Active 242351544 anxiety Problem Vitamin D E55.9 Active 69905483 deficiency Problem Mixed E78.2 Active 002375251 hyperlipidemia Problem Acute stress F43.0 Active 03956391 reaction Problem Diverticulosis K57.90 Active 213840524 Problem Decreased mobility R26.89 Active 5048695 Problem Diverticulosis of K57.30 Active 268291878 colon Problem Seasonal allergies J30.2 Active 815445217 Problem Panic disorder F41.0 Active 962079761 [episodic paroxysmal anxiety] Problem Gastroesophageal K21.9 Active 078505075 reflux disease, esophagitis presence not specified Problem Closed nondisplaced S62.509A Active 382923562 fracture of phalanx of thumb, unspecified laterality, unspecified phalanx, initial encounter Problem Other chronic K29.50 Active 0190895 gastritis without hemorrhage ALLERGIES No Known Allergies ENCOUNTERS from 1970 to 2020-06-14 Encounter Location Date Provider Diagnosis [facility] [address] [place], Anette Egan te cystitis with Family Medicine [address], hematur ia N30.01 ; [place] [address] infection B37. 9 and Diverticulosis of colon K57.30 IMMUNIZATIONS Vaccine Route Administration Date Status Afluria [...] VITAL SIGNS Height 64 in May, Weight 172.4 lbs May, Temperature 97.8 degrees Fahrenheit May, BMI 29.59 kg/m2 May, Oximetry 96 % May, Respiratory Rate 16 /min May, Blood pressure systolic 130 mm Hg May, Blood pressure diastolic 63 mm Hg May, MEDICATIONS Medication SIG (Take, Route, Notes Start Date End Date Status Frequency, Duration) Gabapentin 300 MG 1 capsule Orally three Active times a day Xanax 0.5MG 1 tablet Orally once a A ctive day prn anxiety attacks for 30 days Dicyclomine HCl 20 MG 1 tablet Orally Four May, Jun, Active times a day for 30 day(s) Fluticasone Propionate 1 spray in each nostril Mar, 9 Active 50 MCG/ACT Nasally Once a day for 30 day(s) Steglatro 15 MG 1 tablet Orally Once a Active day for 90 day(s) Diclofenac Sodium 1 % 2 gram application to Mar, 1 7 Jun, 2020 Active affected area Transdermal Three times a day for 30 day(s) Trazodone HCl 50 MG 1 tablet at bedtime as May, Active needed Orally Once a day for 90 days BusPIRone HCl 5 MG TAKE 1 TABLET BY MOUTH Active EVERY 6 HOURS NEEDED FOR ANXIETY for 30 Metformin HCl 500 MG TAKE 2 TABLETS BY MOUTH Active TWICE DAILY WITH A MEAL for 30 Xanax 0.5MG 1 tablet Orally once a A ctive day prn anxiety attacks for 30 Levemir FlexTouch 100 22 units daily and Aug, Active UNIT/ML titrate up 2 units every 2 days until FBG less 120 max of 50 units daily Subcutaneous daily for 90 days FreeStyle Tay 14 Day USE DIRECTED EVERY Active Sensor - 14 DAYS Metformin HCl 500 MG 2 tablet with a meal Active Orally twice a day for 90 days NovoFine Plus 32G X 4 as directed SC once Active MM daily Omeprazole 40 MG 1 capsule Orally Once a Active day for 90 days FreeStyle Tay 14 Day as directed daily Active [place] - Tresiba FlexTouch 200 60units in pm titrate Active UNIT/ML up 2 units every 3 days until fbg less 100 (max of 70 units daily) Subcutaneous once a day for 90 days Macrobid 100 MG 1 capsule with food May, 24 Dec, 2 020 Active Orally every 12 hrs for 10 day(s) BD Pen Needle Kylie 2nd as directed SC once Active Gen 32G X 4 MM daily for 90 days Glimepiride 4 MG 1 tablet with breakfast Active or the first main meal of the day Orally Once a day for 90 days Sertraline HCl 100 MG 2 tablets Orally Once a Active day PROCEDURES No Information RESULTS Component Value Reference Range Urine Culture,Comprehensive Reviewed date:06/14/2020 12:50:07 Interpretation: Performing Lab:, [facility] [place], [address], [place], [place] [id number], Phone - [phone], Director - Christiane Urine Culture,Comprehensive Final report Result 1 REASON FOR VISIT Possible UTI MEDICAL (GENERAL) HISTORY Type Description Date Medical History Diabetic Type 2 Medical History anxiety Surgical History Hysterectomy Surgical History Gallbladder Goals Section No Information Health Concerns No Information MEDICAL EQUIPMENT No Information MENTAL STATUS No Information FUNCTIONAL STATUS No Information ASSESSMENTS Encounter Date Diagnosis Assessment Notes Treatment Notes Treatm ent Clinical Notes May, Acute cystitis with -- take hematuria (ICD-10 - antibiotics as N30.01) directed. Will send urine for urine culture and sensitivity to make sure antibiotic placed on is sensitive to the organism causing UTIl. -- increase water intake -- always wipe front to back -- try to clean well after bowel movement possibly with baby wipes. -- urinate after intercourse May, Yeast infection control blood (ICD-10 - B37.9) sugars, increase water intake with SGLT-2 which increases risk of uti /yeast infections. May, Diverticulosis of cont followup colon (ICD-10 - with GI again. K57.30) go to ER if symptoms worsen or do not improve. For divercultiis/dive rticulosis -- Maintain a low residue diet to [...] honeydew, egs, fish, pultry and dairy products. PLAN OF TREATMENT Medication Medication Name Sig Start Date Stop Date Macrobid 100 MG 1 capsule with food Orally every 12 hrs for 14 D 2019May, 10 day(s) Treatment Notes Assessment Notes Clinical Notes Acute cystitis with hematuria -- take antibiotics as directe d. Will send urine for urine culture and sensitivity to make sure antibiotic placed on is sensitive to the organism causing UTIl.-- increase water intake-- always wipe front to back-- try to clean well after bowel movement possibly with baby wipes.-- urinate after intercourse Yeast infection control blood sugars, increase water intake with SGLT-2 which increases risk of uti /yeast infections. Diverticulosis of colon cont followup with GI again.go to ER if symptoms worsen or do not improve.For divercultiis/diverticulosis-- Maintain a low residue diet to reduce [...] honeydew, egs, fish, pultry and dairy products. Treatment Notes Test Name Order Date URINALYSIS AUTO W/O SCOPE (22531) 2020-06-14 Next Appt Details prn Reason: Provider Name:Chano Chowdary, 2020-06-26 0 8:30:00 AM, [address], [address], [place], [address], Provider Name:Anette Benjamin, 2020-07-27 08:3 0:00 AM, [address], [address], [place], [address], Provider Name:Anette Benjamin 2020-08-03 08:2 0:00 AM, [address], [address], [place], [address], Insurance Providers Payer Name Payer Payer Insured Patient Coverage Coverage End Address Phone Name Relationship to Start Date Lui e Insured Ambetter from [phone] Aditya Nance self [address] [place] [id number] [employer] [facility] [id number]
--- OUTSIDE RECORDS SUMMARY | 2020-08-02 15:29 | XMS REPORT ---
:1970 Author Organization [facility] Address [address], [facility] [address] [place] [address] Care Team Providers Name Role Phone Benjamin Unavailable [phone] PROBLEMS Type Condition ICD9-CM [id number] Onset Condition SNOMED Code Notes Code Code Dates Status Problem Diabetic E11.42 Active 484887835 polyneuropathy associated with type 2 diabetes mellitus Problem Uncontrolled type 2 E11.65 Active 139118005 diabetes mellitus with hyperglycemia Problem Fatty liver K76.0 Active 523453952 Problem Depression with F41.8 Active 551391030 anxiety Problem Vitamin D E55.9 Active 71923045 deficiency Problem Mixed E78.2 Active 500354049 hyperlipidemia Problem Acute stress F43.0 Active 20132182 reaction Problem Diverticulosis K57.90 Active 863481863 Problem Decreased mobility R26.89 Active 1217183 Problem Diverticulosis of K57.30 Active 885177552 colon Problem Seasonal allergies J30.2 Active 283717473 Problem Panic disorder F41.0 Active 042755948 [episodic paroxysmal anxiety] Problem Gastroesophageal K21.9 Active 552549380 reflux disease, esophagitis presence not specified Problem Closed nondisplaced S62.509A Active 624086315 fracture of phalanx of thumb, unspecified laterality, unspecified phalanx, initial encounter Problem Other chronic K29.50 Active 0269753 gastritis without hemorrhage ALLERGIES No Known Allergies ENCOUNTERS from 1970 to 2020-06-14 Encounter Location Date [facility] [address] [facility] [address] [facility] [address] [place] [address] May, [place] [address] IMMUNIZATIONS Vaccine Route Administration Date Status Afluria [...] No information MEDICATIONS Medication SIG (Take, Route, Notes Start Date End Date Status Frequency, Duration) Gabapentin 300 MG 1 capsule Orally three Active times a day Xanax 0.5MG 1 tablet Orally once a A ctive day prn anxiety attacks for 30 days Dicyclomine HCl 20 MG 1 tablet Orally Four May, 2 Jun, 2020 Active times a day for 30 day(s) [...] Tay 14 Day as directed daily Active [place] - Tresiba FlexTouch 200 60units in pm titrate Active UNIT/ML up 2 units every 3 days until fbg less 100 (max of 70 units daily) Subcutaneous once a day for 90 days Macrobid 100 MG 1 capsule with food May, 24 May, 020 Active Orally every 12 hrs for [...] Information RESULTS No Results REASON FOR VISIT lab results MEDICAL (GENERAL) HISTORY Type Description Date Medical [...] hrs for 14 D 2019May, 10 day(s) Next Appt Details Provider Name:Chano De La Pazmariam 2020-06-26 0 8:30:00 AM, [address] [facility] [address], [place], [address], Provider Name:Anette Benjamin, 2020-07-27 08:3 0:00 AM, [address], [address], [place], [address], Provider Name:Anette Benjamin, 2020-08-03 08:2 0:00 AM, [address], [address], [place], [address], Insurance Providers Payer Name Payer Payer Insured Patient Coverage Coverage End Address Phone Name Relationship to Start Date Lui e Insured Ambetter from [phone] Aditya Nance self 2018 [place] [id number] [facility] Health Plan [facility] [id number]
--- OUTSIDE RECORDS SUMMARY | 2020-08-02 15:29 | XMS REPORT ---
:1970 Author Organization [facility] Address [address] , [address] [place] [address] Care Team Providers Name Role Phone Epi Unavailable [phone] PROBLEMS Type Condition ICD9-CM [id number] Onset Condition W/U Status Risk SNOM ED Notes Code Code Dates Status Code Problem Diabetic E11.42 Active confirmed 302004863 polyneuropath y associated with type 2 diabetes mellitus Problem Uncontrolled E11.65 Active confirmed 6045220 00 type 2 diabetes mellitus with hyperglycemia Problem Fatty liver K76.0 Active confirmed 29156595 7 Problem Depression F41.8 Active confirmed 888628017 with anxiety Problem Vitamin D E55.9 Active confirmed 47768938 deficiency Problem Mixed E78.2 Active confirmed 818795663 hyperlipidemi a Problem Acute stress F43.0 Active confirmed 9374242 8 reaction Problem Diverticulosi K57.90 Active confirmed 313834 000 s Problem Decreased R26.89 Active confirmed 6803309 mobility Problem Diverticulosi K57.30 Active confirmed 048615 002 s of colon Problem Seasonal J30.2 Active confirmed 018766822 allergies Problem Panic F41.0 Active confirmed 869747083 disorder [episodic paroxysmal anxiety] Problem Gastroesophag K21.9 Active confirmed 762884 009 eal reflux disease, esophagitis presence not specified Problem Closed S62.509A Active confirmed 658405614 nondisplaced fracture of phalanx of thumb, unspecified laterality, unspecified phalanx, initial encounter Problem Other chronic K29.50 Active confirmed 686522 9 gastritis without hemorrhage ALLERGIES No Known Allergies ENCOUNTERS from 1970 to 2020-07-31 Encounter Location Date Provider Diagnosis [facility] [address] [facility] [address], [place] [address] IMMUNIZATIONS Vaccine Route Administration Date Status Afluria [...] Start Date End Date Status Frequency, Duration) Glimepiride 4 MG 1 tablet with breakfast Active or the first main meal of the day Orally Once a day for 90 days Tresiba FlexTouch 200 60units in pm titrate up Active UNIT/ML 2 units every 3 days until fbg less 100 (max of 70 units daily) Subcutaneous once a day for 90 days BD Pen Needle Kylie 2nd as directed SC once daily Active Gen 32G X 4 MM for 90 days FreeStyle Tay 14 Day as directed daily Active [place] - BusPIRone HCl 5 MG TAKE 1 TABLET BY MOUTH Active EVERY 6 HOURS NEEDED FOR ANXIETY for 30 Metformin HCl 500 MG 2 tablet with a meal Active Orally twice a day for 90 days Trazodone HCl 50 MG 1 tablet at bedtime as May, Active needed Orally Once a day for 90 days Xanax 0.5MG 1 tablet Orally once a A ctive day prn anxiety attacks for 30 Levemir FlexTouch 100 22 units daily and Aug, Active UNIT/ML titrate up 2 units every 2 days until FBG less 120 max of 50 units daily Subcutaneous daily for 90 days Sertraline HCl 100 MG 2 tablets Orally Once a Active day Gabapentin 300 MG 1 capsule Orally three Active times a day NovoFine Plus 32G X 4 MM as directed SC once daily Active Steglatro 15 MG 1 tablet Orally Once a Active day for 90 day(s) Omeprazole 40 MG 1 capsule Orally Once a Active day for 90 days Fluticasone Propionate 50 1 spray in each nostril Mar, Active MCG/ACT Nasally Once a day for 30 day(s) Metformin HCl 500 MG TAKE 2 TABLETS BY MOUTH Active TWICE DAILY WITH A MEAL for 30 FreeStyle Tay 14 Day USE DIRECTED EVERY 14 Active Sensor - DAYS PROCEDURES No Information RESULTS No Results REASON FOR VISIT XRAY ORDER MEDICAL (GENERAL) HISTORY Type Description Date Medical History Diabetic Type 2 Medical History anxiety Surgical History Hysterectomy Surgical History Gallbladder Goals Section No Information Health Concerns No Information MEDICAL EQUIPMENT No Information MENTAL STATUS No Information FUNCTIONAL STATUS No Information ASSESSMENTS No Information PLAN OF TREATMENT Medication Medication Name Sig Start Date Stop Date Xanax 0.5MG 1 tablet Orally once a day prn anxiety attacks for 30 Next Appt Details Provider Name:Chano Chowdary, 2020-08-07 0 8:30:00 AM, [address] [facility], [place], [address], Provider Name:Anette Benjamin, 2020-08-07 09:3 0:00 AM, [address] [facility] [address], [address], [place], [address], Provider Name:Anette Benjamin, 2020-08-21 04:4 0:00 PM, [address], [address], [place], [address], Provider Name:Anette Cardenas Sourav, 2020-08-28 04:2 0:00 PM, [address], [address], [place], [address], Insurance Providers Payer Name Payer Payer Insured Patient Coverage Coverage End Address Phone Name Relationship to Start Date Lui e Insured Ambetter from [phone] Aditya Nance self [address] [place] [id number] Health Plan [facility] [id number]
--- OUTSIDE RECORDS SUMMARY | 2020-08-02 15:29 | XMS REPORT ---
:[address] [facility] Address [address] [facility] [address] [place] [address] Care Team Providers Name Role Phone Epi Unavailable [phone] PROBLEMS Type Condition ICD9-CM [id number] Onset Condition SNOMED Code Notes Code Code Dates Status Problem Fatty liver K76.0 Active 784801740 Problem Seasonal allergies J30.2 Active 238272565 Problem Decreased mobility R26.89 Active 7743184 Problem Uncontrolled type 2 E11.65 Active 646643951 diabetes mellitus with hyperglycemia Problem Gastroesophageal K21.9 Active 829575493 reflux disease, esophagitis presence not specified Problem Depression with F41.8 Active 548206286 anxiety Problem Closed nondisplaced S62.509A Active 647830939 fracture of phalanx of thumb, unspecified laterality, unspecified phalanx, initial encounter Problem Diabetic E11.42 Active 000802075 polyneuropathy associated with type 2 diabetes mellitus Problem Vitamin D E55.9 Active 40077057 deficiency Problem Mixed E78.2 Active 965600843 hyperlipidemia Problem Acute stress F43.0 Active 87686848 reaction Problem Panic disorder F41.0 Active 052916708 [episodic paroxysmal anxiety] ALLERGIES No Known Allergies ENCOUNTERS from 1970 to 2020-05-30 Encounter Location Date Provider Diagnosis [facility] [address], Chano Chowdary Pain in joints of [facility] [address] M25.542 ; [place] [address] M79.645 and Displaced fract ure of distal phala nx of left thumb, [...] VITAL SIGNS Height 64 in Apr, Weight 168 lbs Apr, Temperature 97.1 degrees Fahrenheit Apr, BMI 28.83 kg/m2 Apr, Blood pressure systolic 120 mm Hg Apr, Blood pressure diastolic 78 mm Hg Apr, MEDICATIONS Medication SIG (Take, Route, Notes Start Date End Date Status Frequency, Duration) Glimepiride 4 MG 1 tablet with breakfast Active or the first main meal of the day Orally Once a day Tresiba FlexTouch 200 60units in pm titrate Active UNIT/ML up 2 units every 3 days until fbg less 100 (max of 70 units daily) Subcutaneous once a day for 90 days Metformin HCl 500 MG 2 tablet with a meal Active Orally twice a day for 90 days NovoFine Plus 32G X 4 as directed SC once Active MM daily FreeStyle Tay 14 Day as directed daily Active [place] - Xanax 0.5MG 1 tablet Orally once a A ctive day prn anxiety attacks for 30 days Diclofenac Sodium 1 % 2 gram application to 20 Mar, 2020 1 7 Jun, 2020 Active affected area Transdermal Three times a day for 30 day(s) Xanax 0.5MG 1 tablet Orally once a A ctive day prn anxiety attacks for 30 Metformin HCl 500 MG TAKE 2 TABLETS BY MOUTH Active TWICE DAILY WITH A MEAL for 30 Sertraline HCl 100 MG 2 tablets Orally Once a Active day BD Pen Needle Kylie 2nd as directed SC once Active Gen 32G X 4 MM daily for 90 days BusPIRone HCl 5 MG TAKE 1 TABLET BY MOUTH Active EVERY 6 HOURS NEEDED FOR ANXIETY for 30 FreeStyle Tay 14 Day USE DIRECTED EVERY Active Sensor - 14 DAYS Omeprazole 40 MG 1 capsule Orally Once a Active day for 90 days Fluticasone Propionate 1 spray in each nostril Mar, 9 Active 50 MCG/ACT Nasally Once a day for 30 day(s) Steglatro 15 MG 1 tablet Orally Once a 05 Apr, 2020 October, Active day for 90 day(s) Gabapentin 300 MG 1 capsule Orally three Active times a day Levemir FlexTouch 100 22 units daily and Aug, Active UNIT/ML titrate up 2 units every 2 days until FBG less 120 max of 50 units daily Subcutaneous daily for 90 days PROCEDURES No Information RESULTS No Results REASON FOR VISIT F/U LEFT HAND PAIN (XRAY) MEDICAL (GENERAL) HISTORY Type Description Date Medical History Diabetic Type 2 Medical History anxiety Surgical History Hysterectomy Surgical History Gallbladder Goals Section No Information Health Concerns No Information MEDICAL EQUIPMENT No Information MENTAL STATUS No Information FUNCTIONAL STATUS No Information ASSESSMENTS Encounter Date Diagnosis Assessment Notes Treatment Notes Treatm ent Clinical Notes Apr, Pain in joints of left hand (ICD-10 - M25.542) Apr, Pain of left thumb (ICD-10 - [...] Order Date X-RAY EXAM HAND 3 VIEWS ([id number]) 2020-05-30 Next Appt Details 3 Weeks Reason: Provider Name:Anette Benjamin, 2020-06-01 08:4 0:00 AM, [address], [address], [place], [address], Provider Name:Chano Chowdary, 2020-06-26 0 8:30:00 AM, [address], [address], [place], [address], Insurance Providers Payer Name Payer Payer Insured Patient Coverage Coverage End Address Phone Name Relationship to Start Date Lui e Insured Ambetter from [phone] Aditya Nance self [address] [place] [id number] [place] A Health Plan [facility] [id number]
--- OUTSIDE RECORDS SUMMARY | 2020-08-02 15:29 | XMS REPORT ---
:1970 Author Organization [facility] Address [address], [address] [place] [address] Care Team Providers Name Role Raine Chowdary Unavailable [phone] PROBLEMS Type Condition ICD9-CM [id number] Onset Condition SNOMED Code Notes Code Code Dates Status Problem Diabetic E11.42 Active 150737485 polyneuropathy associated with type 2 diabetes mellitus Problem Uncontrolled type 2 E11.65 Active 188183011 diabetes mellitus with hyperglycemia Problem Fatty liver K76.0 Active 792057727 Problem Depression with F41.8 Active 226818063 anxiety Problem Vitamin D E55.9 Active 98306413 deficiency Problem Mixed E78.2 Active 346564889 hyperlipidemia Problem Acute stress F43.0 Active 80358094 reaction Problem Diverticulosis K57.90 Active 495354527 Problem Decreased mobility R26.89 Active 5043679 Problem Diverticulosis of K57.30 Active 815760856 colon Problem Seasonal allergies J30.2 Active 649955699 Problem Panic disorder F41.0 Active 096799442 [episodic paroxysmal anxiety] Problem Gastroesophageal K21.9 Active 615391685 reflux disease, esophagitis presence not specified Problem Closed nondisplaced S62.509A Active 397682907 fracture of phalanx of thumb, unspecified laterality, unspecified phalanx, initial encounter Problem Other chronic K29.50 Active 7551476 gastritis without hemorrhage ALLERGIES No Known Allergies ENCOUNTERS from 1970 to 2020-06-29 Encounter Location Date Provider Diagnosis [facility] [address] May, Chano Chowdary Pain [facility] [address] M25.542 ; [facility], [place] [address] M79.645 ; Displ aced fracture of dis olaf phalanx of left thumb, subseque nt encounter for fracture with routine healing S62.522D and Pa in in joints of left hand M25.542 IMMUNIZATIONS Vaccine Route Administration Date Status Afluria [...] VITAL SIGNS Height 64 in May, Weight 168 lbs May, Temperature 97.5 degrees Fahrenheit May, BMI 28.83 kg/m2 May, Blood pressure systolic 132 mm Hg May, Blood pressure diastolic 72 mm Hg May, MEDICATIONS Medication SIG (Take, Route, Notes Start Date End Date Status Frequency, Duration) NovoFine Plus 32G X 4 as directed SC once Active MM daily Omeprazole 40 MG 1 capsule Orally Once a Active day for 90 days Tresiba FlexTouch 200 60units in pm titrate Active UNIT/ML up 2 units every 3 days until fbg less 100 (max of 70 units daily) Subcutaneous once a day for 90 days Steglatro 15 MG 1 tablet Orally Once a Active day for 90 day(s) FreeStyle Tay 14 Day USE DIRECTED EVERY Active Sensor - 14 DAYS Trazodone HCl 50 MG 1 tablet at bedtime as May, Active needed Orally Once a day for 90 days Glimepiride 4 MG 1 tablet with breakfast Active or the first main meal of the day Orally Once a day for 90 days Dicyclomine HCl 20 MG 1 tablet Orally Four May, Jun, Active times a day for 30 day(s) Metformin HCl 500 MG 2 tablet with a meal Active Orally twice a day for 90 days Diclofenac Sodium [...] day prn anxiety attacks for 30 days Metformin HCl 500 MG TAKE 2 TABLETS BY MOUTH Active TWICE DAILY WITH A MEAL for 30 Xanax 0.5MG 1 tablet Orally once a A ctive day prn anxiety attacks for 30 FreeStyle Tay 14 Day as directed daily Active [place] - Fluticasone Propionate 1 spray in each nostril Mar, 9 Active 50 MCG/ACT Nasally Once a day for 30 day(s) Gabapentin 300 MG 1 capsule Orally three Active times a day Levemir FlexTouch 100 22 units daily and Aug, Active UNIT/ML titrate up 2 units every 2 days until FBG less 120 max of 50 units daily Subcutaneous daily for 90 days PROCEDURES No Information RESULTS No Results REASON FOR VISIT F/U LT HAND- XRAY LT THUMB MEDICAL (GENERAL) HISTORY Type Description Date Medical History Diabetic Type 2 Medical History anxiety Surgical History Hysterectomy Surgical History Gallbladder Goals Section No Information Health Concerns No Information MEDICAL EQUIPMENT No Information MENTAL STATUS No Information FUNCTIONAL STATUS No Information ASSESSMENTS Encounter Date Diagnosis Assessment Notes Treatment Notes Treatm ent Clinical Notes May, Pain in joint of left hand (ICD-10 - M25.542) May, Pain of left thumb (ICD-10 - M79.645) May, Displaced fracture of distal phalanx of left thumb, subsequent encounter for fracture with routine healing (ICD-10 - S62.522D) May, Pain in joints of left hand (ICD-10 - M25.542) May, Other -continue with nonoperative treatment -may wean from the brace at this time and begin gentle ROM exercises -f/u in 6 weeks for reevaluation and xrays of the left thumb PLAN OF TREATMENT Treatment Notes Test Name Order Date X-RAY EXAM HAND 3 VIEWS ([id number]) 2020-06-29 Next Appt Details 6 Weeks Reason:xray Hand/thumb Provider Name:Anette Benjamin, 2020-07-27 08:3 0:00 AM, [address], [address], [place], [address], Provider Name:Anette Benjamin 2020-08-03 08:2 0:00 AM, [address], [address], [place], [address], Provider Name:Chano Chowdary, 2020-08-07 0 8:30:00 AM, [address], [address], [place], [address], Follow Up:6 Weeksxray Hand/thumb Insurance Providers Payer Name Payer Payer Insured Patient Coverage Coverage End Address Phone Name Relationship to Start Date Lui e Insured Ambetter from [phone] Aditya Nance self [address] [place] [id number] [place] A Health Plan [facility] [id number]
--- OUTSIDE RECORDS SUMMARY | 2020-08-02 15:29 | XMS REPORT ---
:1970 Author Organization [facility] Address [address] [place], [facility] [address] [place] [address] Care Team Providers Name Role Phone Benjamin Unavailable [phone] PROBLEMS Type Condition ICD9-CM [id number] Onset Condition SNOMED Code Notes Code Code Dates Status Problem Diabetic E11.42 Active 368250657 polyneuropathy associated with type 2 diabetes mellitus Problem Uncontrolled type 2 E11.65 Active 192900405 diabetes mellitus with hyperglycemia Problem Fatty liver K76.0 Active 501617964 Problem Depression with F41.8 Active 592829927 anxiety Problem Vitamin D E55.9 Active 93900568 deficiency Problem Mixed E78.2 Active 420529864 hyperlipidemia Problem Acute stress F43.0 Active 38130860 reaction Problem Diverticulosis K57.90 Active 375404469 Problem Decreased mobility R26.89 Active 3516031 Problem Diverticulosis of K57.30 Active 675932981 colon Problem Seasonal allergies J30.2 Active 221628935 Problem Panic disorder F41.0 Active 698859852 [episodic paroxysmal anxiety] Problem Gastroesophageal K21.9 Active 606859903 reflux disease, esophagitis presence not specified Problem Closed nondisplaced S62.509A Active 899612279 fracture of phalanx of thumb, unspecified laterality, unspecified phalanx, initial encounter Problem Other chronic K29.50 Active 0278760 gastritis without hemorrhage ALLERGIES No Known Allergies ENCOUNTERS from 1970 to 2020-06-20 Encounter Location Date Provider Diagnosis [facility] [address] [facility] [address] [place] [address] May, 2020 [place] [address] IMMUNIZATIONS Vaccine Route Administration Date Status Afluria [...] Tay 14 Day as directed daily Active [place] - Tresiba FlexTouch 200 60units in pm [...] Information RESULTS No Results REASON FOR VISIT yeast infection MEDICAL (GENERAL) HISTORY Type Description Date Medical [...] [place] 2020-06-26 0 8:30:00 AM, [address] [facility] [address], [place], [address], Provider Name:Anette Benjamin, 2020-07-27 08:3 0:00 AM, [address], [address], [place], [address], Provider Name:Anette Benjamin, 2020-08-03 08:2 0:00 AM, [address], [address], [place], [address], Insurance Providers Payer Name Payer Payer Insured Patient Coverage Coverage End Address Phone Name Relationship to Start Date Lui e Insured Ambetter from [phone] Aditya Nance self 2018 [place] [id number] [facility] Health Plan [facility] [id number]
[2020-08-02] MEDS ORDERED: IPRATROPIUM BROM 0.5MG/2.5ML ONE (17:20)
[2020-08-02] MEDS ORDERED: predniSONE 20 MG TAB ONE (17:20)
[2020-08-02] MEDS ORDERED: ALBUTEROL 2.5 MG/3 ML NEB SOL ONE (17:20)
--- NOTE | 2020-08-02 17:37 | RAD REPORT ---
EXAM DESCRIPTION: Araselit Pa And Lat (2 Views)08/02/2020 5:29 pm CLINICAL HISTORY: Cough COMPARISON: 2019 FINDINGS: Moderate bilateral pulmonary opacities. . The heart is normal size IMPRESSION: Moderate bilateral pulmonary opacities probably pneumonia
--- NOTE | 2020-08-02 17:54 | EDPHYS ---
Physician Documentation [facility] Name: Dena Nance Age: 50 yrs Sex: Female : 1970 Arrival Date: 08/02/2020 Time: 15:29 Bed 26 Private MD: ED Physician Francisco Hoskins HPI: 08/03 08:15 This 50 yrs old Female presents to ER via Ambulatory with complaints of kdr Shortness Of Breath. 08:15 The patient has shortness of breath at rest, with light activity. Onset: The kdr symptoms/episode began/occurred gradually, 3 day(s) ago. Duration: The symptoms are continuous, and are steadily getting worse. The patient's shortness of breath is aggravated by exertion, light activity. Associated signs and symptoms: Pertinent positives: non-productive cough, fever. Severity of symptoms: At their worst the symptoms were mild moderate just prior to arrival, in the emergency department the symptoms are unchanged. The patient has not experienced similar symptoms in the past. The patient has been recently seen by a physician: the patient's primary care provider, Nicolasa'd with [facility] recently. Historical: - Allergies: 08/02 15:37 NKA; ll1 - PMHx: 15:37 Diabetes - IDDM; Diverticulitis; fatty liver; Pancreatitis; ll1 - PSHx: 15:37 Cholecystectomy; Hysterectomy; ll1 - Immunization history:: Flu vaccine is up to date. - Social history:: Smoking status: Patient denies any tobacco usage or history of. ROS: 08/03 08:15 Constitutional: Negative for fever, chills, and weight loss, Eyes: Negative for injury, kdr pain, redness, and discharge, ENT: Negative for injury, pain, and discharge, Neck: Negative for injury, pain, and swelling, Cardiovascular: Negative for chest pain, palpitations, and edema, Abdomen/GI: Negative for abdominal pain, nausea, vomiting, diarrhea, and constipation, Back: Negative for injury and pain, : Negative for injury, bleeding, discharge, and swelling, MS/Extremity: Negative for injury and deformity, Skin: Negative for injury, rash, and discoloration, Neuro: Negative for headache, weakness, numbness, tingling, and seizure activity. Psych: Negative for depression, anxiety, suicide ideation, homicidal ideation, and hallucinations, Allergy/Immunology: Negative for hives, rash, and allergies, Endocrine: Negative for neck swelling, polydipsia, polyuria, polyphagia, and marked weight changes, Hematologic/Lymphatic: Negative for swollen nodes, abnormal bleeding, and unusual bruising. Respiratory: Positive for cough, dyspnea on exertion, shortness of breath, on exertion. Negative for hemoptysis, orthopnea, pleurisy, sputum production, wheezing. Exam: 08:15 Constitutional: This is a well developed, well nourished patient who is awake, alert, kdr and in no acute distress. Head/Face: Normocephalic, atraumatic. Eyes: Pupils equal round and reactive to light, extra-ocular motions intact. Lids and lashes normal. Conjunctiva and sclera are non-icteric and not injected. Cornea within normal limits. Periorbital areas with no swelling, redness, or edema. Neck: Trachea midline, no thyromegaly or masses palpated, and no cervical lymphadenopathy. Supple, full range of motion without nuchal rigidity, or vertebral point tenderness. No Meningismus. Chest/axilla: Normal chest wall appearance and motion. Nontender with no deformity. No lesions are appreciated. Cardiovascular: Regular rate and rhythm with a normal S1 and S2. No gallops, murmurs, or rubs. Normal PMI, no JVD. No pulse deficits. Respiratory: Lungs have equal breath sounds bilaterally, clear to auscultation and percussion. No rales, rhonchi or wheezes noted. No increased work of breathing, no retractions or nasal flaring. Abdomen/GI: Soft, non-tender, with normal bowel sounds. No distension or tympany. No guarding or rebound. No evidence of tenderness throughout. Back: No spinal tenderness. No costovertebral tenderness. Full range of motion. Skin: Warm, dry with normal turgor. Normal color with no rashes, no lesions, and no evidence of cellulitis. MS/ Extremity: Pulses equal, no cyanosis. Neurovascular intact. Full, normal range of motion. Neuro: Awake and alert, GCS 15, oriented to person, place, time, and situation. Cranial nerves II-XII grossly intact. Motor strength 5/5 in all extremities. Sensory grossly intact. Cerebellar exam normal. Normal gait. Psych: Awake, alert, with orientation to person, place and time. Behavior, mood, and affect are within normal limits. Vital Signs: 08/02 15:34 BP 126 / 71; Pulse 95; Resp 18; Temp 98.9; Pulse Ox 95% on R/A; Weight 77.11 kg; Height ll1 5 ft. 4 in. (162.56 cm); Pain 0/10; 16:11 BP 125 / 71; Pulse 93; Resp 18; Pulse Ox 98% on R/A; vg1 17:44 BP 109 / 65; Pulse 100; Resp 20; Pulse Ox 95% on R/A; vg1 15:34 Body Mass Index 29.18 (77.11 kg, 162.56 cm) ll1 MDM: 17:54 Patient medically screened. kdr 08/03 08:15 Data reviewed: vital signs, nurses notes, lab test result(s), radiologic studies. kdr Counseling: I had a detailed discussion with the patient and/or guardian regarding: the historical points, exam findings, and any diagnostic results supporting the discharge/admit diagnosis, lab results, radiology results, the need for outpatient follow up. Special discussion: I discussed with the patient/guardian in detail that at this point there is no indication for admission to the hospital. It is understood, however, that if the symptoms persist or worsen the patient needs to return immediately for re-evaluation. 08/02 17:00 Order name: Chest Pa And Lat (2 Views) XRAY; Complete Time: 17:52 kdr Administered Medications: 08/02 17:09 Drug: Albuterol - atroVENT (3:1) (2.5 mg - 0.5 mg) 3 ml Route: Nebulizer; vg1 18:08 Follow up: Response: No adverse reaction vg1 17:09 Drug: predniSONE 40 mg Route: PO; vg1 18:08 Follow up: Response: No adverse reaction vg1 17:43 Drug: Ivermectin 200 mcg/kg Route: PO; vg1 18:08 Follow up: Response: No adverse reaction vg1 18:11 Drug: Zithromax 500 mg Route: PO; vg1 18:13 Follow up: Response: Medication administered at discharge. vg1 Disposition: 08/02/20 17:54 Discharged to Home. Impression: Pneumonia, unspecified organism, Shortness of breath. - Condition is Stable. - Discharge Instructions: Community-Acquired Pneumonia, Adult, Shortness of Breath, [id number]. - Prescriptions for Zithromax Z- Irvin 250 mg Oral Tablet - take 1 tablet by ORAL route once daily for 4 days; 4 tablet. Albuterol Sulfate 90 mcg/actuation Inhalation - inhale 1-2 puff by INHALATION route every 4-6 hours; 2 Inhaler. Tessalon Perles 100 mg Oral Capsule - take 1 capsule by ORAL route every 8 hours As needed; 15 capsule. ivermectin 3 mg Oral tablet - take 4 tablet by ORAL route once - the day after tomorrow x1 dose; 4 tablet. - Medication Reconciliation Form, Thank You Letter, Antibiotic Education form. - Follow up: Private Physician; When: 2 - 3 days; Reason: If symptoms return, Further diagnostic work-up, Recheck today's complaints, Continuance of care, Re-evaluation by your physician. - Problem is an ongoing problem. - Symptoms have improved. Signatures: Dispatcher [employer] EDMS Francisco Hoskins MD MD kdr Zully Baker RN RN vg1 Delfin Young RN RN ll1 Corrections: (The following items were deleted from the chart) 17:54 17:54 08/02/2020 17:54 Discharged to Home. Impression: Pneumonia, unspecified organism. kdr Condition is Stable. Forms are Medication Reconciliation Form, Thank You Letter, Antibiotic Education, Prescription Opioid Use. Follow up: Private Physician; When: 2 - 3 days; Reason: If symptoms return, Further diagnostic work-up, Recheck today's complaints, Continuance of care, Re-evaluation by your physician. Problem is an ongoing problem. Symptoms have improved. kdr 18:13 17:54 08/02/2020 17:54 Discharged to Home. Impression: Pneumonia, unspecified organism; vg1 Shortness of breath. Condition is Stable. Forms are Medication Reconciliation Form, Thank You Letter, Antibiotic Education, Prescription Opioid Use. Follow up: Private Physician; When: 2 - 3 days; Reason: If symptoms return, Further diagnostic work-up, Recheck today's complaints, Continuance of care, Re-evaluation by your physician. Problem is an ongoing problem. Symptoms have improved. kdr
--- NOTE | 2020-08-02 17:54 | ER ---
Nurse's Notes [facility] Name: Dena Nance Age: 50 yrs Sex: Female : 1970 Arrival Date: 08/02/2020 Time: 15:29 Bed 26 Private MD: Diagnosis: Pneumonia, unspecified organism;Shortness of breath Presentation: 08/02 15:34 Chief complaint: Patient states: Covid positive Friday. SOB began yesterday, ll1 worsening today. + fever still. Coronavirus screen: Client denies travel out of the [place] in the last 14 days. chills, congestion, cough unrelated to allergies, difficulty breathing, fatigue, fever, headache, muscle pain, shaking with chills, shortness of breath, Client presents with at least one sign or symptom that may indicate coronavirus-19. Standard/surgical mask placed on the client. Client reports previous positive COVID test result. Ebola Screen: Patient denies travel to an Ebola-affected area in the 21 days before illness onset. Initial Sepsis Screen: Does the patient meet any 2 criteria? HR > 90 bpm. No. Patient's initial sepsis screen is negative. Does the patient have a suspected source of infection? Yes: Productive cough/pneumonia. Risk Assessment: Do you want to hurt yourself or someone else? Patient reports no desire to harm self or others. Onset of symptoms was July 20, 2020. 15:34 Method Of Arrival: Ambulatory ll1 15:34 Acuity: MARIANA 3 ll1 Triage Assessment: 18:13 Respiratory: the patient has mild shortness of breath. vg1 Historical: - Allergies: 15:37 NKA; ll1 - PMHx: 15:37 Diabetes - IDDM; Diverticulitis; fatty liver; Pancreatitis; ll1 - PSHx: 15:37 Cholecystectomy; Hysterectomy; ll1 - Immunization history:: Flu vaccine is up to date. - Social history:: Smoking status: Patient denies any tobacco usage or history of. Screenin:11 Abuse screen: Denies threats or abuse. Nutritional screening: No deficits noted. vg1 Tuberculosis screening: No symptoms or risk factors identified. Fall Risk No fall in past 12 months (0 pts). No secondary diagnosis (0 pts). No IV (0 pts). Ambulatory Aid- None/Bed Rest/Nurse Assist (0 pts). Gait- Normal/Bed Rest/Wheelchair (0 pts) Mental Status- Oriented to own ability (0 pts). Total Scott Fall Scale indicates No Risk (0-24 pts). Assessment: 16:10 General: Appears in no apparent distress. comfortable, Behavior is calm, cooperative. vg1 Pain: Denies pain. Neuro: Level of Consciousness is awake, alert, obeys commands, Oriented to person, place, time, situation. Cardiovascular: Patient's skin is warm and dry. Respiratory: Reports shortness of breath at rest on exertion cough that is productive, Airway is patent Respiratory effort is even, unlabored, Respiratory pattern is regular, symmetrical, Breath sounds are clear bilaterally. GI: Patient currently denies diarrhea, nausea, vomiting. : No signs and/or symptoms were reported regarding the genitourinary system. EENT: No signs and/or symptoms were reported regarding the EENT system. Derm: Skin is intact, is healthy with good turgor. Musculoskeletal: Circulation, motion, and sensation intact. 17:43 Reassessment: Patient appears in no apparent distress at this time. No changes from vg1 previously documented assessment. Patient is alert, oriented x 3, equal unlabored respirations, skin warm/dry/pink. Patient states "it still feels hard to breath after the breathing treatment". Provider notified. Vital Signs: 15:34 BP 126 / 71; Pulse 95; Resp 18; Temp 98.9; Pulse Ox 95% on R/A; Weight 77.11 kg; Height ll1 5 ft. 4 in. (162.56 cm); Pain 0/10; 16:11 BP 125 / 71; Pulse 93; Resp 18; Pulse Ox 98% on R/A; vg1 17:44 BP 109 / 65; Pulse 100; Resp 20; Pulse Ox 95% on R/A; vg1 15:34 Body Mass Index 29.18 (77.11 kg, 162.56 cm) ll1 ED Course: 15:29 Patient arrived in ED. ds1 15:37 Triage completed. ll1 15:38 Arm band placed on Patient placed in an exam room, on a stretcher. ll1 15:55 Francisco Hoskins MD is Attending Physician. kdr 15:59 Zully Baker RN is Primary Nurse. vg1 16:11 Patient has correct armband on for positive identification. Placed in gown. Bed in low vg1 position. Call light in reach. Side rails up X 1. 17:[address] via wheelchair. vg1 17:29 Chest Pa And Lat (2 Views) XRAY In Process Unspecified. EDMS 18:13 No provider procedures requiring assistance completed. Patient did not have IV access vg1 during this emergency room visit. Administered Medications: 17:09 Drug: Albuterol - atroVENT (3:1) (2.5 mg - 0.5 mg) 3 ml Route: Nebulizer; vg1 18:08 Follow up: Response: No adverse reaction vg1 17:09 Drug: predniSONE 40 mg Route: PO; vg1 18:08 Follow up: Response: No adverse reaction vg1 17:43 Drug: Ivermectin 200 mcg/kg Route: PO; vg1 18:08 Follow up: Response: No adverse reaction vg1 18:11 Drug: Zithromax 500 mg Route: PO; vg1 18:13 Follow up: Response: Medication administered at discharge. vg1 Outcome: 17:54 Discharge ordered by . kdr 18:13 Discharged to home ambulatory. vg1 18:13 Condition: stable 18:13 Discharge instructions given to patient, Instructed on discharge instructions, follow up and referral plans. medication usage, Demonstrated understanding of instructions, follow-up care, medications, Prescriptions given X 4. 18:13 Patient left the ED. vg1 Signatures: Dispatcher [employer] EDNE Francisco Hoskins MD MD kdr Sanford, Demi ds1 Zully Baker RN RN vg1 Delfin Young RN RN ll1
[2020-08-02] MEDS ORDERED: IVERMECTIN 3 MG TABLET PO ONE (18:00)
[2020-08-02] MEDS ORDERED: AZITHROMYCIN 250 MG TAB ONE (18:26)
== END 2020-08-02 18:13 | disposition home or self-care (01) ==
LOC: ER 15:26
DX: J18.9 Pneumonia, unspecified organism (principal); Z86.16 Personal history of COVID-19
CPT/HCPCS: 71046; 99284; J7512

== ENCOUNTER 2020-08-06 19:12 | Inpatient (IN) | payer OTHER ==
--- OUTSIDE RECORDS SUMMARY | 2020-08-06 19:14 | XMS REPORT | Clinical Summary ---
:1970 Author Organization [facility] Address [address] [place] [address] Care Team Providers Name Role Phone Dolores [...] Not on file Results Not on fileafter 08/06/2019 Insurance Payer Benefit Plan / Subscriber ID Effective Dates Phone Addre ss Type Group [facility] [id number] 2016-Robyn [phone] HMO/POS HEALTH CHOICE [address] t 04 EXCHANGE (Work) [phone]
--- OUTSIDE RECORDS SUMMARY | 2020-08-06 19:14 | XMS REPORT | Continuity of Care Document ---
:1970 Author Organization [facility] t Address Formerly [facility] Chang [address] [place] [id number] Care Team Providers Name Role Phone Sharpless Primary Care Physician AIDA VELÁSQUEZ Attending Clinician Unavailable Problems This patient has no known problems. Allergies, Adverse Reactions, Alerts This patient has no known allergies or adverse reactions. Social History Social Habit Start Date Stop Date Quantity Comments Source Sex Assigned At [facility] Tobacco use and 2017-05-09 2017-05-09 Never used [facility] - exposure 00:00:00 00:00:00 [facility] Smoking Status Start Date Stop Date Source Never smoker [facility] Medications Ordered Filled Start Stop [...] 10:01: daily. Medi michele 10 mg [address] [place] tablet sertraline 2016-06 Yes 50mg QD Take [address] (ZOLOFT) 50 -10 by mouth Luke s - MG tablet 10:01: daily. Medica l [address] [place] metFORMIN 2016-06 Yes 500mg Take 500 [facility] [...] HCl HCl with a [facility] - meal [facility] Immunizations Ordered Filled Immunization Date Status Comments Sour e Immunization Name Name Flucelvax - Flucelvax - 2019-03-[address] [facility] - multidose vial multidose vial 00:00:00 [facility] Procedures This patient has no known procedures. Encounters Start End Encounter Admission Attending Care Care Encounter Source Date/Time Date/Time Type Type Clinicians Facility Department ID 2020-07-31 2020-07-31 Outpatient [facility] [id number] [facility] 2020-06-26 2020-06-26 Outpatient [facility] [id number] [facility] 2020-06-15 2020-06-15 Outpatient [facility] [id number] [facility] 2020-06-14 2020-06-14 [facility] [id number] [facility] 2020-06-12 2020-06-12 Outpatient [facility] [id number] [facility] 2020-06-01 2020-06-01 Outpatient [facility] [id number] [facility] 2020-05-29 2020-05-29 [facility] [id number] [facility] 2020-05-08 2020-05-08 [facility] [id number] [facility] 2020-05-04 2020-05-04 [facility] [id number] [facility] 2020-04-24 2020-04-24 [facility] [id number] [facility] 2020-04-20 2020-04-20 Out[facility] [id number] [facility] 2020-04-19 2020-04-19 Out[facility] [id number] [facility] 2020-04-18 2020-04-18 Out[facility] [id number] [facility] 2020-04-17 2020-04-17 Outpatient [facility] [id number] [facility] 2020-04-11 2020-04-11 Outpatient [id number] [facility] 09:07:00 09:07:00 2020-01-26 2020-01-26 [facility] [id number] 14:36:00 14:36:00 t [place] Bras[place] Draft[place] s - Drive [facility] l Medicine Outpat[facility] ent Clinics 2020-01-24 2020-01-24 [facility] [id number] [address] 13:45:00 13:45:00 t [place] [employer] Luke s - Drive [facility] Medicine Out[facility] Clinics 2020-01-19 2020-01-19 [facility] [id number] 08:40:00 08:40:00 t [place] Bras[place] [employer] Coding s - Drive [facility] Medicine Outpat[facility] Clinics 2020-01-18 2020-01-18 [facility] [id number] 15:20:00 15:20:00 t [place] [employer] Coding s [employer] [facility] Medicine Outpati ent Clinics 2020 2020 [facility] [id number] 14:44:00 14:44:00 t [place] [employer] s [employer] [facility] Medicine Outpati ent Clinics 2020 2020 [facility] [id number] 09:39:00 09:39:[address] [facility] Medicine Outpati ent Clinics 2019-12-24 2019-12-24 [facility] [id number] 17:41:00 17:41:[address] [facility] Medicine Outpati ent Clinics 2019-12-21 2019-12-21 [facility] [id number] 09:20:00 09:20:[address] [facility] Medicine Outpati ent Clinics 2019-10-27 2019-10-27 [facility] [id number] 14:08:00 14:08:[address] [facility] Medicine Outpati ent Clinics 2019-10-13 2019-10-13 [facility] [id number] 11:40:00 11:40:[address] [facility] Medicine Outpati ent Clinics 2019-10-04 2019-10-04 [facility] [id number] 08:00:00 08:00:00 t [employer] s [employer] [facility] Medicine Outpati ent Clinics 2019-08-26 2019-08-26 [facility] [id number] 09:30:00 09:30:00 t [employer] s [employer] [facility] Medicine Outpati ent Clinics 2019-08-25 2019-08-25 [facility] [id number] 11:51:00 11:51:00 t [employer] s [employer] [facility] Medicine Outpati ent Clinics 2019-08-24 2019-08-24 [facility] [id number] [facility] 14:40:00 14:40:[address] Luke s - Drive [facility] Family [facility] l Medicine Outpati ent Clinics 2019-08-17 2019-08-17 [facility] [id number] 11:59:00 11:59:[address] Luke s - Drive [facility] Medicine l Medicine Outpati ent Clinics 2019-07-05 2019-07-05 [facility] [id number] 16:00:00 16:00:[address] Luke s - Drive [facility] Family Medicine l Medicine Outpati ent Clinics 2019-06-22 2019-06-22 [facility] [id number] 11:53:00 11:53:[address] Luke s - Drive [facility] Medicine l Medicine Outpati ent Clinics 2019-06-22 2019-06-22 [facility] [id number] 10:22:00 10:22:00 t [place] Luke s - Drive [facility] Medicine l Medicine Outpati ent Clinics 2019-05-24 2019-05-24 [facility] [id number] 10:00:00 10:00:00 t [place] Luke s - Drive [facility] Medicine l Medicine Outpati ent Clinics 2019-05-05 2019-05-05 [facility] [id number] 15:44:00 15:44:00 t [place] Luke s - Drive [facility] Medicine l Medicine Outpati ent Clinics 2019-05-04 2019-05-04 [facility] [id number] 15:20:00 15:20:00 t [place] Luke s - Drive [facility] Medicine l Medicine Outpati ent Clinics 2019-04-27 2019-04-27 [facility] [id number] 17:18:00 17:18:[address] Luke s - Drive [facility] Medicine l Medicine Outpati ent Clinics 2019-04-26 2019-04-26 [facility] [id number] 17:24:00 17:24:00 t [place] [employer] Luke s - Drive [facility] Medicine l Medicine Outpati ent Clinics 2019-04-20 2019-04-20 Outpatient Jam Rivera [id number] [facility] 08:27:00 08:27:00 [facility] 2019-04-12 2019-04-12 Outpatient Jam Rivera [id number] 11:00:00 11:00:00 [facility] 2019-03-30 2019-03-30 Outpatient Jam Rivera [id number] 14:00:00 14:00:00 [facility] Results Test Description Test Time Test Comments Results Result Sourc e Comments MM, STEREOTACTIC 2017-04-30 Reason for Addendum BeginsMRN#: BIOPSY, BREAST, 5 Exam:->calcificati [id number]: LEFT 15:59:00 on 05/14/2017 Lizzette Velásquez M.D. 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 Addendum EndsMRN#: [id number] - MM, STEREOTACTIC BIOPSY, BREAST, LEFTSTEREOTACTIC GUIDED [...] correct location, five specimens were obtained using Soteira device. A clip was inserted into the [...] the calcifications. Lizzette Velásquez M.D. pth/penrad:05/09/2017 11:07:57 Cloth Inspector: Felicia Rizzo RT(R)(M), [facility] [id number] UE EXAM 2017-04-30 Surgical Pathology 3 Report 12:48:00 Case: [id number] Authorizing Provider: Lizzette Velásquez MD Collected: 05/09/2017 1110 Ordering Location: [facility] Received: 05/09/2017 1312 Pathologist: Jackei Maradiaga MD Specimen: Breast, Left, LEFT MIDDLE 12 BREAST CALCIFICATION BREAST, LEFT, MIDDLE 12 O'CLOCK, CALCIFICATIONS, STEREOTACTIC CORE NEEDLE BIOPSY: - HYALINIZED FIBROADENOMA - COLUMNAR CELL HYPERPLASIA - COLUMNAR CELL CHANGES - MICROCALCIFICATIONS, COARSE, ASSOCIATED WITH FIBROADENOMA Signing Pathologist Direct Phone Line: [phone] ally signed by Jackie Maradiaga MD on 05/12/2017 at 12:48 PMIn the sections examined, no atypical hyperplasia or carcinoma is identified.[id number] sing lesion Left middle 12 o'clock breast calcifications The specimen is received in a formalin-filled container labeled with the patient's information and labeled "left middle 12 o'clock breast calcifications" and consists of multiple yellow-white breast core biopsies ranging in length from 0.6 to 2.5 cm.Ink code: Black.The specimen is submitted entirely in A1 and A2. CG/ewPerformed.[facility], Department of Pathology, [address] [place] [address], [place] [address], MM, DIGITAL, 2017-04-30 Left breast MRN#: UNILATERAL, 0 calcifications [id number] - CONFER MARTA, 11:07:00 MM, DIGITAL, MAMMO, [...] pathology results. Lizzette Velásquez M.D. pth/:05/09/2017 11:07:15 Cloth Inspector: Felicia IRVIN (R)), [facility] Mammogram BI-RADS: Post-procedure mammogram for marker placement [id number] , MAMMO, 2017-04-30 Reason for MRN#: SPECIMEN, 0 exam:->Left breast [id number] - RADIOGRAPH, LEFT 11:06:00 calcifications MM, MAMMO, SPECIMEN, RADIOGRAPH, LEFTSPECIMEN LEFT BREAST: 05/09/2017Five stereotactic guided biopsy specimens were imaged for the area of calcifications located in the left breast at 12 o'clock middle depth. IMPRESSION: SPECIMENThe imaged specimens includes the calcifications. Lizzette Velásquez M.D. pth/:05/09/2017 11:06:40 Cloth Inspector: Felicia BELLA (R)(Phil), [facility] [id number]
[2020-08-06] MEDS ORDERED: ALBUTEROL INHALER 60 PUFF/8 GM IH ONE (19:56)
[2020-08-06 20:06] LABS: Absolute Lymphocytes (CBC) 1.4 K/uL (0.7-4.9); Basophils % 0.3 % (0-1.3); Hematocrit 39.1 % (36.0-45.0); Lymphocytes % 27.7 % (15.3-44.8); MPV 8.9 fL (7.6-11.3); RBC Red Blood Cell Count 4.77 M/uL (3.86-4.86)
[2020-08-06] MEDS ORDERED: MORPHINE 2 MG/ML SYR ONE (20:12)
[2020-08-06 20:19] LABS: Protime INR 0.97
[2020-08-06 20:33] LABS: ALT/SGPT 33 U/L (12-78); Albumin 3.2 g/dL (3.4-5.0); Alkaline Phosphatase 131 U/L (45-117); BUN Blood Urea Nitrogen 17 mg/dL (7-18); Bicarbonate 29 mmol/L (21-32); Bilirubin Direct < 0.1 mg/dL (0-0.2); Bilirubin Total 0.2 mg/dL (0.2-1.0); Glucose Level 171 mg/dL (74-106); Lipase 54 U/L (73-393); NT PRO-BNP 21 pg/mL (<125); Protein, Total 7.9 g/dL (6.4-8.2); Sodium Level 142 mmol/L (136-145); Troponin (Emerg Dept Use Only) < 0.02 ng/mL (0.0-0.045)
[2020-08-06 20:35] LABS: AST/SGOT 35 U/L (15-37); Potassium 3.8 mmol/L (3.5-5.1)
[2020-08-06] MEDS ORDERED: NA CHLORIDE 0.9% 1,000 ML ONE (20:41)
[2020-08-06 20:50] LABS: Urine Blood NEGATIVE (NEG); Urine Glucose 1+ (NEG); Urine Protein NEGATIVE (NEG); Urine Specific Gravity 1.025 (1.005-1.030); Urine pH 5.5 (5.0-7.0)
[2020-08-06 20:53] LABS: Urine Bacteria 20-50 /HPF (<20); Urine Mucus 4+ /HPF (NONE SEEN); Urine RBC <5 /HPF (NONE SEEN)
--- NOTE | 2020-08-06 21:01 | EDPHYS ---
Physician Documentation [facility] Name: Dena Nance Age: 50 yrs Sex: Female : 1970 Arrival Date: 08/06/2020 Time: 19:18 Bed 7 Private MD: ED Physician Juan Loya HPI: 08/06 19:44 This 50 yrs old Female presents to ER via EMS with complaints of Shortness of mh7 Breath. 19:44 The patient has shortness of breath at rest. Onset: The symptoms/episode began/occurred mh7 3 day(s) ago. Duration: The symptoms are continuous, and are steadily getting worse. The patient's shortness of breath is aggravated by coughing, exertion, light activity, is alleviated by nothing. Associated signs and symptoms: Pertinent positives: chest pain, non-productive cough, fever, Pertinent negatives: productive cough, diaphoresis, dizziness, hemoptysis, loss of consciousness, nausea, numbness in extremities, visual changes, vomiting. Severity of symptoms: At their worst the symptoms were moderate today, in the emergency department the symptoms are unchanged. The patient has been recently seen at the [facility] Emergency Department, this week. Patient reports recent positive COVID test. Historical: - Allergies: 19:32 NKA; rv - PMHx: 19:32 Diabetes - IDDM; Diverticulitis; fatty liver; Pancreatitis; rv - PSHx: 19:32 None; rv - Immunization history:: Adult Immunizations up to date. - Social history:: Smoking status: Patient reports the use of cigarette tobacco products, Patient denies any tobacco usage or history of. ROS: 19:44 Eyes: Negative for injury, pain, redness, and discharge, ENT: Negative for injury, mh7 pain, and discharge, Neck: Negative for injury, pain, and swelling, Abdomen/GI: Negative for abdominal pain, nausea, vomiting, diarrhea, and constipation, Back: Negative for injury and pain, : Negative for injury, bleeding, discharge, and swelling, MS/Extremity: Negative for injury and deformity, Skin: Negative for injury, rash, and discoloration, Neuro: Negative for headache, weakness, numbness, tingling, and seizure, Psych: Negative for depression, anxiety, suicide ideation, homicidal ideation, and hallucinations, Allergy/Immunology: Negative for hives, rash, and allergies, Endocrine: Negative for neck swelling, polydipsia, polyuria, polyphagia, and marked weight changes, Hematologic/Lymphatic: Negative for swollen nodes, abnormal bleeding, and unusual bruising. Exam: 19:44 Head/Face: Normocephalic, atraumatic. Eyes: Pupils equal round and reactive to light, mh7 extra-ocular motions intact. Lids and lashes normal. Conjunctiva and sclera are non-icteric and not injected. Cornea within normal limits. Periorbital areas with no swelling, redness, or edema. Neck: Trachea midline, no thyromegaly or masses palpated, and no cervical lymphadenopathy. Supple, full range of motion without nuchal rigidity, or vertebral point tenderness. No Meningismus. 19:44 Cardiovascular: Regular rate and rhythm with a normal S1 and S2. No gallops, murmurs, or rubs. Normal PMI, no JVD. No pulse deficits. 19:44 Abdomen/GI: Soft, non-tender, with normal bowel sounds. No distension or tympany. No guarding or rebound. No evidence of tenderness throughout. Back: No spinal tenderness. No costovertebral tenderness. Full range of motion. Skin: Warm, dry with normal turgor. Normal color with no rashes, no lesions, and no evidence of cellulitis. MS/ Extremity: Pulses equal, no cyanosis. Neurovascular intact. Full, normal range of motion. Neuro: Awake and alert, GCS 15, oriented to person, place, time, and situation. Cranial nerves II-XII grossly intact. Motor strength 5/5 in all extremities. Sensory grossly intact. Cerebellar exam normal. Normal gait. Psych: Awake, alert, with orientation to person, place and time. Behavior, mood, and affect are within normal limits. 19:44 Constitutional: The patient appears in no acute distress, alert, awake, uncomfortable. 19:44 Chest/axilla: Inspection: normal, Palpation: tenderness, that is moderate, of the right inferior lateral chest, that partially reproduces the patient's complaints, Axilla: are normal, Lymph nodes: lymphadenopathy is not appreciated. 19:44 Respiratory: mild respiratory distress is noted, Respirations: tachypnea, that is mild, Breath sounds: rales, that are mild, are scattered, rhonchi, that are mild, are scattered, Respiratory rate: 22 Vital Signs: 19:18 BP 140 / 83; Pulse 101; Resp 22; Temp 98.6; Pulse Ox 96% on 2 lpm NC; Weight 76.2 kg; rv Height 5 ft. 4 in. (162.56 cm); 19:53 Pulse Ox 90% on R/A; rv 21:15 BP 114 / 70; Pulse 97; Resp 16; Pulse Ox 96% on 3 lpm NC; rr5 22:00 BP 119 / 56; Pulse 99; Resp 18; Pulse Ox 96% on 3 lpm NC; rr5 23:00 BP 108 / 65; Pulse 100; Resp 19; Pulse Ox 96% on 3 lpm NC; rr5 08/07 00:00 BP 125 / 74; Pulse 94; Resp 19; Temp 98.2(O); Pulse Ox 96% on 3 lpm NC; rr5 08/06 19:18 Body Mass Index 28.84 (76.20 kg, 162.56 cm) rv MDM: 08/06 20:59 Differential diagnosis: Anemia Anxiety Reaction asthma, Bronchitis CHF exacerbation, [facility] Chronic Obstructive Pulmonary Disease Myocardial Infarction pneumonia, pulmonary edema, reactive airway disease. Data reviewed: vital signs, nurses notes, old medical records, lab test result(s), cardiac enzymes, CBC, electrolytes, urinalysis, EKG, radiologic studies, plain films. Data interpreted: Pulse oximetry: on room air is 90 %. Interpretation: hypoxia. Plan: O2 by NC applied. Counseling: I had a detailed discussion with the patient and/or guardian regarding: the historical points, exam findings, and any diagnostic results supporting the discharge/admit diagnosis, the presence of at least one elevated blood pressure reading (>120/80) during this emergency department visit, lab results, radiology results, the need for further work-up and treatment in the hospital. 21:01 Patient medically screened. [facility] 08/06 19:20 Order name: Basic Metabolic Panel [facility] 08/06 19:20 Order name: CBC with Diff [facility] 08/06 19:20 Order name: LFT's; Complete Time: 20:50 [facility] 08/06 19:20 Order name: Magnesium; Complete Time: 20:50 [facility] 08/06 19:20 Order name: NT PRO-BNP; Complete Time: 20:50 [facility] 08/06 19:20 Order name: PT-INR; Complete Time: 20:29 [facility] 08/06 19:20 Order name: Troponin (emerg Dept Use Only); Complete Time: 20:50 [facility] 08/06 19:20 Order name: D-Dimer; Complete Time: 20:29 [facility] 08/06 19:20 Order name: Basic Metabolic Panel; Complete Time: 20:50 [facility] 08/06 19:20 Order name: CBC with Automated Diff; Complete Time: 20:15 [facility] 08/06 19:20 Order name: Lipase; Complete Time: 20:50 [facility] 08/06 19:20 Order name: Blood Culture Adult (2) [facility] 08/06 20:04 Order name: C-Reactive Protein; Complete Time: 20:49 [facility] 08/06 19:20 Order name: XRAY Chest (1 view) [facility] 08/06 19:20 Order name: EKG; Complete Time: 19:21 [facility] 08/06 19:20 Order name: Cardiac monitoring; Complete Time: 19:33 [facility] 08/06 19:20 Order name: EKG - Nurse/Tech; Complete Time: 19:33 [facility] 08/06 19:20 Order name: IV Saline Lock; Complete Time: 19:33 [facility] 08/06 20:38 Order name: Urine Microscopic Only; Complete Time: 20:57 mg2 08/06 20:38 Order name: Urine Culture mg2 08/06 20:46 Order name: Urine --Ancillary (enter results); Complete Time: 20:51 tt3 08/06 20:46 Order name: Urine Dipstick--Ancillary (enter results); Complete Time: 20:51 3 08/06 23:50 Order name: SARS-COV-2 RT PCR [facility] 08/06 19:20 Order name: Labs collected and sent; Complete Time: 19:33 [facility] 08/06 19:20 Order name: O2 Per Protocol; Complete Time: 19:33 [facility] 08/06 19:20 Order name: O2 Sat Monitoring; Complete Time: 19:33 [facility] 08/06 19:20 Order name: Urine Dipstick-Ancillary (obtain specimen); Complete Time: 20:37 [facility] 08/06 19:44 Order name: Misc. Order: please obtain and document room air sats; Complete Time: 19:53 la1 Administered Medications: 19:52 Drug: Albuterol HFA Inhaler 2 puffs Route: Inhalation; lp1 23:49 Follow up: Response: Marked relief of symptoms rv 20:01 Drug: morphine 2 mg Route: IVP; Site: left hand; rv 23:49 Follow up: Response: No adverse reaction; RASS: Alert and Calm (0) rv 20:28 Drug: NS 0.9% 1000 ml Route: IV; Rate: 1000 ml; Site: left hand; rv 23:49 Follow up: IV Status: Completed infusion; IV Intake: 1000ml rv 21:04 Drug: Decadron - Dexamethasone 6 mg Route: IVP; Site: left hand; mg2 23:49 Follow up: Response: No adverse reaction rv 21:04 Drug: Rocephin - (cefTRIAXone) 1 grams Route: IVPB; Infused Over: 30 mins; Site: left mg2 hand; 23:49 Follow up: Response: No adverse reaction; IV Status: Completed infusion rv Disposition: 08/06/20 21:01 Hospitalization ordered by Mike Alejo for Inpatient Admission. Preliminary diagnosis are COVID Pneumonia, Hypoxia. - Bed requested for Telemetry/MedSurg (Inpatient). - Status is Inpatient Admission. rr5 - Condition is Stable. - Problem is new. - Symptoms have improved. Signatures: Dispatcher [employer] EDLA Taina Samayoa RN RN lp1 Reggie Siddiqi FNP-Ari [id number] Brenda Baker RN RN cg Idris Rogers RN RN mg2 Esvin Stephen RN RN rv Mike Macias RN RN rr5 Juan Loya MD MD 7 Corrections: (The following items were deleted from the chart) 20:04 19:43 C-REACTIVE PROTEIN+C.LAB.BRZ ordered. EDLA EDLA 08/07 00:01 02 21:01 Hospitalization Ordered by Mike Alejo MD for Inpatient Admission. cg Preliminary diagnosis is COVID Pneumonia; Hypoxia. Bed requested for Telemetry/MedSurg (Inpatient). Status is Inpatient Admission. Condition is Stable. Problem is new. Symptoms have improved. mh7 08/07 00:21 00:01 08/06/2020 21:01 Hospitalization Ordered by Mike Alejo MD for Inpatient rr5 Admission. Preliminary diagnosis is COVID Pneumonia; Hypoxia. Bed requested for Telemetry/MedSurg (Inpatient). Status is Inpatient Admission. Condition is Stable. Problem is new. Symptoms have improved. cg
--- NOTE | 2020-08-06 21:01 | ER ---
Nurse's Notes [facility] Name: Dena Nance Age: 50 yrs Sex: Female : 1970 Arrival Date: 08/06/2020 Time: 19:18 Bed 7 Private MD: Diagnosis: COVID Pneumonia;Hypoxia Presentation: 08/06 19:18 Chief complaint: Patient states: WORSENING SYMPTOMS, DIAGNOSED WITH COVID PNEUMONIA. rv 93-97% AT 4LPM. COMPLAINING OF RIGHT SIDE RIB PAIN. SOB ON EXERTION. Coronavirus screen: Client denies travel out of the [place] in the last 14 days. Client reports previous positive COVID test result. Ebola Screen: No symptoms or risks identified at this time. Initial Sepsis Screen: Does the patient meet any 2 criteria? No. Patient's initial sepsis screen is negative. Does the patient have a suspected source of infection? No. Patient's initial sepsis screen is negative. Risk Assessment: Do you want to hurt yourself or someone else? Patient reports no desire to harm self or others. Onset of symptoms was August 06, 2020. 19:18 Method Of Arrival: EMS: [facility] rv 19:18 Acuity: MARIANA 3 rv Triage Assessment: 20:10 General: Appears uncomfortable, Behavior is calm, cooperative. Pain: Complains of pain rv in RIGHT SIDE RIB PAIN. Historical: - Allergies: 19:32 NKA; rv - PMHx: 19:32 Diabetes - IDDM; Diverticulitis; fatty liver; Pancreatitis; rv - PSHx: 19:32 None; rv - Immunization history:: Adult Immunizations up to date. - Social history:: Smoking status: Patient reports the use of cigarette tobacco products, Patient denies any tobacco usage or history of. Screenin:10 Abuse screen: Denies threats or abuse. Denies injuries from another. Nutritional rv screening: No deficits noted. Tuberculosis screening: No symptoms or risk factors identified. Fall Risk None identified. Assessment: 19:30 General: Appears in no apparent distress. uncomfortable, Behavior is calm, cooperative, rr5 appropriate for age. 19:30 Pain: Complains of pain in right rib cage Pain Quality of pain is described as aching, rr5 Pain began gradually, Is intermittent. Neuro: Level of Consciousness is awake, alert, obeys commands, Oriented to person, place, time. Cardiovascular: Reports shortness of breath, right rib cage Capillary refill < 3 seconds Patient's skin is warm and dry. Respiratory: Reports shortness of breath cough that is Airway is patent Respiratory effort is even, unlabored, Respiratory pattern is regular, symmetrical. GI: No signs and/or symptoms were reported involving the gastrointestinal system. : No signs and/or symptoms were reported regarding the genitourinary system. EENT: No signs and/or symptoms were reported regarding the EENT system. Derm: Skin is intact, is healthy with good turgor, Skin temperature is warm. Musculoskeletal: Capillary refill < 3 seconds. 20:30 Reassessment: Patient appears in no apparent distress at this time. Patient is alert, rr5 oriented x 3, equal unlabored respirations, skin warm/dry/pink. awaiting for results. 21:00 Reassessment: Patient appears in no apparent distress at this time. Patient and/or rr5 family updated on plan of care and expected duration. Pain level reassessed. Patient is alert, oriented x 3, equal unlabored respirations, skin warm/dry/pink. updated for admission, agreed for the plan of care. Vital Signs: 19:18 BP 140 / 83; Pulse 101; Resp 22; Temp 98.6; Pulse Ox 96% on 2 lpm NC; Weight 76.2 kg; rv Height 5 ft. 4 in. (162.56 cm); 19:53 Pulse Ox 90% on R/A; rv 21:15 BP 114 / 70; Pulse 97; Resp 16; Pulse Ox 96% on 3 lpm NC; rr5 22:00 BP 119 / 56; Pulse 99; Resp 18; Pulse Ox 96% on 3 lpm NC; rr5 23:00 BP 108 / 65; Pulse 100; Resp 19; Pulse Ox 96% on 3 lpm NC; rr5 08 00:00 BP 125 / 74; Pulse 94; Resp 19; Temp 98.2(O); Pulse Ox 96% on 3 lpm NC; rr5 08/06 19:18 Body Mass Index 28.84 (76.20 kg, 162.56 cm) rv ED Course: 08/06 19:18 Patient arrived in ED. rv 19:18 Juan Loya MD is Attending Physician[facility] 19:31 Triage completed. rv 19:32 Arm band placed on right wrist. Patient placed in the treatment room, on a stretcher, rv Patient notified of wait time. 19:45 Initial lab(s) drawn, by me, sent to lab. First set of blood cultures drawn by me. lp1 19:53 Esvin Stephen, SHADE is Primary Nurse. rv 20:00 Maintain EMS IV. Dressing intact. Good blood return noted. Site clean \T\ dry. Gauge \T\ rr 5 site: g20 left hand. 20:10 Patient has correct armband on for positive identification. youth nutritional monitor on. Pulse rv ox on. NIBP on. 20:15 Assisted to bedside commode. mg2 20:28 Notified ED physician of a critical lab result(s). D-DIMER 683. rv 20:36 XRAY Chest (1 view) In Process Unspecified. EDMS 20:38 No provider procedures requiring assistance completed. mg2 21:00 Mike Alejo MD is Hospitalizing Provider. mh7 21:13 COVID swab sent to lab. rr5 0208 00:20 IV is patent, with fluids infusing freely, Patient admitted, IV remains in place. rr5 Administered Medications: 0207 19:52 Drug: Albuterol HFA Inhaler 2 puffs Route: Inhalation; lp1 23:49 Follow up: Response: Marked relief of symptoms rv 20:01 Drug: morphine 2 mg Route: IVP; Site: left hand; rv 23:49 Follow up: Response: No adverse reaction; RASS: Alert and Calm (0) rv 20:28 Drug: NS 0.9% 1000 ml Route: IV; Rate: 1000 ml; Site: left hand; rv 23:49 Follow up: IV Status: Completed infusion; IV Intake: 1000ml rv 21:04 Drug: Decadron - Dexamethasone 6 mg Route: IVP; Site: left hand; mg2 23:49 Follow up: Response: No adverse reaction rv 21:04 Drug: Rocephin - (cefTRIAXone) 1 grams Route: IVPB; Infused Over: 30 mins; Site: left mg2 hand; 23:49 Follow up: Response: No adverse reaction; IV Status: Completed infusion rv Intake: 23:49 IV: 1000ml; Total: 1000ml. rv Outcome: 21:01 Decision to Hospitalize by Provider. mh7 08/07 00:18 Admitted to Tele accompanied by tech, via wheelchair, room 413, Other SBAR, EKG rv Condition: good Instructed on the need for admit. 00:21 Patient left the ED. rr5 Signatures: Dispatcher [employer] EDTaina Cali RN RN lp1 Idris Rogers RN RN mg2 Esvin Stephen RN RN rv Mike Macias RN RN rr5 Juan Loya MD MD 7
--- NOTE | 2020-08-06 21:04 | RAD REPORT ---
EXAM DESCRIPTION: RAD - Chest Single View - 08/06/2020 8:36 pm CLINICAL HISTORY: SOB Chest pain. COMPARISON: Chest Pa And Lat (2 Views) dated 08/02/2020; Chest Single View dated 09/23/2019; Chest Sing le View dated 01/19/2019; Chest Single View dated 03/27/2018 FINDINGS: Portable technique limits examination quality. Moderate bilateral interstitial lung opacities are seen, mildly worse since the prior study. The hear t is normal in size. No displaced fractures. IMPRESSION: Mild worsening in lung aeration seen since comparative study.
[2020-08-06] MEDS ORDERED: dexAMETHasone 10 MG/ML VIAL ONE (21:16)
[2020-08-06] MEDS ORDERED: MELATONIN 5 MG TABLET PO PRN (21:20)
[2020-08-06] MEDS ORDERED: CEFTRIAXONE/SWI 1gm 1 GM/10 ML SYR ONE (21:20)
[2020-08-06] MEDS ORDERED: BENZONATATE 100 MG CAP PO PRN (21:20)
--- NOTE | 2020-08-07 00:24 | P.HP ---
Certification for Inpatient Patient admitted to: Observation With expected LOS: <2 Midnights Patient will require the following post-hospital care: None Practitioner: I am a practitioner with admitting privileges, knowledge of patient current condition, hospital course, and medical plan of care. Services: Services provided to patient in accordance with Admission requirements found in Title 42 Section 412.3 of the Code of Federal Regulations <Reggie Siddiqi - Last Filed: 08/07/20 00:21> Patient History Date of Service: 08/07/20 Primary Care Provider: Dr. Benjamin Reason for admission: COVID pneumonia History of Present Illness: 50-year-old female with history of diabetes mellitus type 2, pancreat itis, gastritis, fatty liver disease presents emergency department for shortness of breath. Patient reports testing positive for COVID on July 30, has since taken 2 doses of ivermectin. Patient reports increasing shortness of breath over the last couple of days, noted to be satting 88-89% on room air at rest. Lab significant for D-dimer 683 C-reactive protein 28.5. ED provider wishes to admit patient under observation for further management. 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 - Family History Father -: Heart disease, Stroke Mother -: Hypertension, Diabetes, Stroke Brother -: Diabetes Sister -: Diabetes - Social History Smoking Status: Never smoker Alcohol use: No CD- Drugs: No Caffeine use: Yes Place of Residence: Home <Reggie Siddiqi - Last Filed: 08/07/20 00:21> Date of Service: 08/14/20 <Mike Alejo - Last Filed: 08/14/20 20:40> Allergies No Known Drug Allergies Allergy (Verified 06/11/18 03:55) No Known Drug Allergies Home Medications: Metformin ER [Glucophage ER*] 2 tab PO BID 09/30/17 Dicyclomine [Bentyl*] 20 mg PO QID 06/11/18 ALPRAZolam [Alprazolam] 1 tab PO DAILY PRN 08/07/20 Ertugliflozin Pidolate [Steglatro] 1 tab PO DAILY 08/07/20 Insulin Degludec [Tresiba Flextouch U-200] 60 unit SQ DAILY 08/07/20 Trazodone [Desyrel*] 1 tab PO BEDTIME 08/07/20 Ascorbic Acid [Vitamin C*] 2,000 mg PO BID #240 tablet 08/09/20 Benzonatate [Tessalon Perle*] 100 mg PO TID PRN #90 cap 08/09/20 Cholecalciferol (Vitamin D3) [Vitamin D 1000 Iu Tab*] 4,000 unit PO DAILY #120 tab 08/09/20 Melatonin 5 mg PO BEDTIME PRN PRN #30 tablet 08/09/20 Thiamine HCl [Vitamin B-1*] 200 mg PO DAILY #60 tablet 08/09/20 Zinc Sulfate [Zinc Sulfate*] 220 mg PO DAILY #30 cap 08/09/20 predniSONE [Deltasone] 20 mg PO BID #21 tab 08/09/20 Review of Systems 10-point ROS is otherwise unremarkable General: Chills, Weakness, Malaise Respiratory: Cough, Shortness of Breath <Reggie Siddiqi - Last Filed: 08/07/20 00:21> Physical Examination - Physical Exam General: Alert, In no apparent distress HEENT: Atraumatic, PERRLA, Mucous membr. moist/pink Neck: Supple, 2+ carotid pulse no bruit, No LAD Respiratory: Clear to auscultation bilaterally, Normal air movement Cardiovascular: Regular rate/rhythm, Normal S1 S2 Gastrointestinal: Normal bowel sounds, No tenderness Musculoskeletal: No tenderness Integumentary: No rashes Neurological: Normal speech, Normal strength at 5/5 x4 extr, Normal tone, Normal affect - Studies Laboratory Data (last 24 hrs) 08/06/20 19:45: PT 11.1, INR 0.97 08/06/20 19:45: WBC 5.10, Hgb 13.0, Hct 39.1, Plt Count 190 08/06/20 19:45: Sodium 142, Potassium 3.8, BUN 17, Creatinine 0.66, Glucose 171 H, Magnesium 2.0, Total Bilirubin 0.2, AST 35, ALT 33, Alkaline Phosphatase 131 H, Lipase 54 L <Reggie Siddiqi - Last Filed: 08/07/20 00:21> Assessment and Plan - Plan Assessment COVID pneumonia with hypoxia Diabetes mellitus type 2 Plan COVID pneumonia with hypoxia: Trend CRP, ferritin levels, pulmonology consult in place. Currently patient on 2-3 L per nasal cannula saturating 94 95%. If patient continues to do well overnight can likely be discharged on home oxygen tomorrow. Continue with IV steroids, oral supplements. DVT prophylaxis Lovenox 40 mg subcutaneous once daily. Appreciate further input from pulmonology. Diabetes mellitus type 2: A.c. HS Accu-Cheks, sliding scale insulin therapy. Discharge Plan: Home Plan to discharge in: 24 Hours - Advance Directives Does patient have a Living Will: No Does patient have a Durable POA for Healthcare: No - Code Status/Comfort Care Code Status Assessed: Yes (Full code) Critical Care: No Time Spent Managing Pts Care (In Minutes): 55 <Reggie Siddiqi - Last Filed: 08/07/20 00:21> - Plan Plan of care reviewed as noted above by Reggie Siddiqi, and I agree with the manag ement plan as noted above. <Mike Alejo - Last Filed: 08/14/20 20:40>
[2020-08-07] MEDS ORDERED: ONDANSETRON 4 MG/2 ML VIAL IV PRN (01:09)
[2020-08-07] MEDS ORDERED: HYDROCODONE/APAP 7.5/325 MG TAB PO PRN (01:09)
[2020-08-07] MEDS ORDERED: ACETAMINOPHEN 500 MG TAB PO PRN (01:09)
[2020-08-07] MEDS ORDERED: MELATONIN 5 MG TABLET PO PRN (01:21)
[2020-08-07 04:20] LABS: Absolute Lymphocytes (CBC) 0.5 K/uL (0.7-4.9); Basophils % 0.2 % (0-1.3); Hematocrit 35.3 % (36.0-45.0); Lymphocytes % 14.4 % (15.3-44.8); MPV 8.9 fL (7.6-11.3); RBC Red Blood Cell Count 4.28 M/uL (3.86-4.86)
[2020-08-07 04:50] LABS: BUN Blood Urea Nitrogen 13 mg/dL (7-18); Bicarbonate 27 mmol/L (21-32); Ferritin 50.6 ng/mL (8-388); Glucose Level 280 mg/dL (74-106); Potassium 4.1 mmol/L (3.5-5.1); Sodium Level 139 mmol/L (136-145)
[2020-08-07] MEDS: VITAMIN D 1000 UNIT TAB PO SCH (08:15)
[2020-08-07] MEDS: THIAMINE HCL 100 MG TABLET PO SCH (08:16)
[2020-08-07] MEDS: ENOXAPARIN 40 MG/0.4 ML SQ SCH (08:16)
[2020-08-07] MEDS: ASCORBIC ACID 500 MG TABLET PO SCH ×4 (08:16→21:28)
[2020-08-07] MEDS: ZINC SULFATE 220 MG CAP PO SCH (08:16)
[2020-08-07] MEDS: INSULIN -REGULAR HUMAN 50 UNIT/0.5 ML ML SQ SCH ×4 (08:16→21:30)
[2020-08-07] MEDS: ASPIRIN EC 81 MG TAB PO SCH (08:16)
[2020-08-07] MEDS: METHYLPREDNISOLONE 125 MG INJ IV SCH ×2 (08:17→21:28)
[2020-08-07] MEDS ORDERED: ASPIRIN EC 81 MG TAB PO SCH (09:00)
[2020-08-07] MEDS ORDERED: VITAMIN D 1000 UNIT TAB PO SCH (09:00)
[2020-08-07] MEDS ORDERED: ZINC SULFATE 220 MG CAP PO SCH (09:00)
[2020-08-07] MEDS ORDERED: ASCORBIC ACID 500 MG TABLET PO SCH (09:00)
[2020-08-07] MEDS ORDERED: METHYLPREDNISOLONE 40 MG INJ IV SCH (09:00)
[2020-08-07] MEDS ORDERED: THIAMINE HCL 100 MG TABLET PO SCH (09:00)
[2020-08-07] MEDS: BENZONATATE 100 MG CAP PO PRN ×2 (09:25→16:30)
[2020-08-07] MEDS: MORPHINE 2 MG/ML SYR IV PRN ×2 (10:48→18:12)
--- NOTE | 2020-08-07 12:22 | P.CNS ---
Date of Consult: 08/07/20 Primary Care Provider: Dr. Benjamin Chief Complaint: COVID pneumonia History of Present Illness: Patient is 50 years of age multiple medical problems admitted with shortness of breath she was diagnosed with larsen virus Jun in she took 2 doses of ivermectin became progressively worse hypoxic came to the hospital she is feeling a little weak short of breath otherwise saturation satisfactory on nasal cannula oxygen Allergies No Known Drug Allergies Allergy (Verified 06/11/18 03:55) No Known Drug Allergies Home Medications: Metformin ER [Glucophage ER*] 2 tab PO BID 09/30/17 Dicyclomine [Bentyl*] 20 mg PO QID 06/11/18 ALPRAZolam [Alprazolam] 1 tab PO DAILY PRN 08/07/20 Ertugliflozin Pidolate [Steglatro] 1 tab PO DAILY 08/07/20 Insulin Degludec [Tresiba Flextouch U-200] 60 unit SQ DAILY 08/07/20 Trazodone [Desyrel*] 1 tab PO BEDTIME 08/07/20 - Past Medical/Surgical History Diabetic: Yes -: Diabetes mellitus type 2 -: pancreatitis -: Fatty liver disease -: Cholecystectomy -: Hysterectomy Psychosocial/ Personal History: 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 reports history of diverticulities, pancreatities, and stomach ulcer. Brother Medical History: Diabetes Sister Medical History: Diabetes - Social History Smoking Status: Unknown if ever smoked Alcohol use: No CD- Drugs: No Caffeine use: Yes Place of Residence: Home Review of Systems General: Weakness Respiratory: Shortness of Breath Physical Examination Temp Pulse Resp BP Pulse Ox 98.2 F 78 20 135/75 95 08/07/20 12:00 08/07/20 12:00 08/07/20 12:00 08/07/20 12:00 08/07/20 12:00 Laboratory Data (last 24 hrs) 08/06/20 19:45: PT 11.1, INR 0.97 08/06/20 19:45: WBC 5.10, Hgb 13.0, Hct 39.1, Plt Count 190 08/06/20 19:45: Sodium 142, Potassium 3.8, BUN 17, Creatinine 0.66, Glucose 171 H, Magnesium 2.0, Total Bilirubin 0.2, AST 35, ALT 33, Alkaline Phosphatase 131 H, Lipase 54 L - Problems (1) 2019 novel coronavirus–infected pneumonia (NCIP)#8211;infected pneumo joseluis (NCIP) Current Visit: Yes Status: Acute Plan: Patient is 50 years of age admitted with larsen virus pneumonia he is doing well on nasal cannula oxygen patient has bilateral pneumonia observe for 1 more day possible discharge tomorrow on prednisone inflammatory parameters only minimally elevated
[2020-08-07] MEDS ORDERED: ALPRAZOLAM 0.5 MG TABLET PO PRN (18:48)
[2020-08-07] MEDS ORDERED: GLUCAGON 1 MG/VIAL IM PRN (18:49)
--- NOTE | 2020-08-07 18:52 | P.PN ---
Subjective Date of Service: 08/07/20 Primary Care Provider: Dr. Benjamin Chief Complaint: COVID pneumonia Subjective: Improving (slightly improved, still feels very SOB / dyspneic with movement) Review of Systems 10-point ROS is otherwise unremarkable Physical Examination - Vital Signs Temperature: 98.5 F Blood Pressure: 135/75 Pulse: 91 Respirations: 20 Pulse Ox (%): 91 - Studies Laboratory Data (last 24 hrs) 08/06/20 19:45: PT 11.1, INR 0.97 08/06/20 19:45: WBC 5.10, Hgb 13.0, Hct 39.1, Plt Count 190 08/06/20 19:45: Sodium 142, Potassium 3.8, BUN 17, Creatinine 0.66, Glucose 171 H, Magnesium 2.0, Total Bilirubin 0.2, AST 35, ALT 33, Alkaline Phosphatase 131 H, Lipase 54 L Microbiology Data (last 24 hrs): 08/06/20 20:03 Blood - Blood Anaerobic Blood Culture - Final Assessment & Plan Physician Review Additional Text: Physical exam Gen: mild distress HEENT: PERRL CV: RRR, no murmur, no edema Pulm: nonlabored, shallow respirations, slight tachypnea Abd: soft, NTND Ext: no rash Problem List COVID pneumonia with hypoxia Diabetes mellitus type 2 Plan COVID pneumonia with hypoxia: Trend CRP, ferritin levels, pulmonology consult in place. Continue with IV steroids, oral supplements. DVT prophylaxis Lovenox 40 mg subcutaneous once daily. patient feels very short of breath still may need home O2 discussed with pulm, will watch today, likely dc tomorrow Diabetes mellitus type 2: A.c. HS Accu-Cheks, sliding scale insulin therapy. Lantus tonight. pt doesn't have home meds on her Dispo: anticipate dc home tomorrow, likely will need home O2 Time Spent Managing Pts Care (In Minutes): 35
[2020-08-07] MEDS ORDERED: D50W 25 GM/50 ML VIAL IV PRN (18:54)
[2020-08-07] MEDS: DICYCLOMINE HCL 10 MG CAP PO SCH (21:28)
[2020-08-07] MEDS: INSULIN GLARGINE 100 UNITS/ML SQ SCH (21:29)
[2020-08-08 04:34] LABS: C-Reactive Protein 26.3 mg/L (<3.00)
[2020-08-08 06:06] VITALS: BMI 29.0
[2020-08-08] MEDS: INSULIN -REGULAR HUMAN 50 UNIT/0.5 ML ML SQ SCH ×4 (08:00→20:41)
[2020-08-08] MEDS: VITAMIN D 1000 UNIT TAB PO SCH (08:31)
[2020-08-08] MEDS: THIAMINE HCL 100 MG TABLET PO SCH (08:31)
[2020-08-08] MEDS: DICYCLOMINE HCL 10 MG CAP PO SCH ×4 (08:31→20:37)
[2020-08-08] MEDS: ZINC SULFATE 220 MG CAP PO SCH (08:31)
[2020-08-08] MEDS: METFORMIN ER 500 MG TAB PO SCH ×2 (08:31→16:26)
[2020-08-08] MEDS: ENOXAPARIN 40 MG/0.4 ML SQ SCH (08:32)
[2020-08-08] MEDS: ASCORBIC ACID 500 MG TABLET PO SCH ×4 (08:32→20:37)
[2020-08-08] MEDS: ASPIRIN EC 81 MG TAB PO SCH (08:32)
[2020-08-08] MEDS: METHYLPREDNISOLONE 125 MG INJ IV SCH ×2 (08:32→20:37)
[2020-08-08] MEDS: MORPHINE 2 MG/ML SYR IV PRN (11:29)
[2020-08-08] MEDS: BENZONATATE 100 MG CAP PO PRN (11:29)
--- NOTE | 2020-08-08 17:07 | P.PN ---
Subjective Date of Service: 08/08/20 Primary Care Provider: Dr. Benjamin Chief Complaint: COVID pneumonia Patient complaining of increased shortness of breath and chest pain today. Physical Examination - Vital Signs Temperature: 97.9 F Blood Pressure: 108/53 Pulse: 87 Respirations: 18 Pulse Ox (%): 93 - Physical Exam General: Alert, Oriented x3, Mild distress HEENT: Mucous membr. moist/pink Neck: JVD not distended Respiratory: Normal air movement Cardiovascular: No edema, Regular rate/rhythm Gastrointestinal: Soft and benign, Non-distended Musculoskeletal: No swelling Integumentary: No rashes Neurological: Other (No focal motor deficit.) - Studies Microbiology Data (last 24 hrs): 08/06/20 20:03 Blood - Blood Anaerobic Blood Culture - Final Assessment And Plan Physician Review Additional Text: Physical exam Gen: mild distress HEENT: PERRL CV: RRR, no murmur, no edema Pulm: nonlabored, shallow respirations, slight tachypnea Abd: soft, NTND Ext: no rash Problem List COVID pneumonia with hypoxia Diabetes mellitus type 2 Plan COVID pneumonia with hypoxia: Trend CRP, ferritin levels. Continue with IV steroids, oral supplements. DVT prophylaxis Lovenox 40 mg subcutaneous once daily. She is hypoxic on room air. Home oxygen has been arranged. Will monitor for 1 more day given her complaint of increased shortness of breath. Possible discharge in am. Diabetes mellitus type 2: A.c. HS Accu-Cheks, sliding scale insulin therapy. Lantus insulin.
[2020-08-08] MEDS: INSULIN GLARGINE 100 UNITS/ML SQ SCH (20:38)
[2020-08-09] MEDS: ENOXAPARIN 40 MG/0.4 ML SQ SCH (08:17)
[2020-08-09] MEDS: VITAMIN D 1000 UNIT TAB PO SCH (08:18)
[2020-08-09] MEDS: ASPIRIN EC 81 MG TAB PO SCH (08:18)
[2020-08-09] MEDS: METFORMIN ER 500 MG TAB PO SCH (08:18)
[2020-08-09] MEDS: ASCORBIC ACID 500 MG TABLET PO SCH ×2 (08:18→12:19)
[2020-08-09] MEDS: THIAMINE HCL 100 MG TABLET PO SCH (08:19)
[2020-08-09] MEDS: METHYLPREDNISOLONE 125 MG INJ IV SCH (08:19)
[2020-08-09] MEDS: INSULIN -REGULAR HUMAN 50 UNIT/0.5 ML ML SQ SCH ×2 (08:20→12:19)
[2020-08-09] MEDS: DICYCLOMINE HCL 10 MG CAP PO SCH ×2 (08:20→12:19)
[2020-08-09] MEDS: ZINC SULFATE 220 MG CAP PO SCH (08:22)
[2020-08-09 11:47] VITALS: BP 131/65; TEMP 97.5
[2020-08-09 12:16] VITALS: O2SAT 94
--- NOTE | 2020-08-09 13:04 | P.DS ---
Admission Date: 08/08/20 Discharge Date: 08/09/20 Primary Care Provider: Dr. 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 Patient she tested positive for cocaine on 07/30/2020. Her chest x-ray showed bilateral infiltrates with mild worsening of infiltrate compared to previous chest x-ray. Patient was hypoxic on room air with oxygen saturation of 88%. She was admitted for further management. Hospital Course: Patient admitted to the medical floor and treated with high-dose IV steroid, placed on vitamin C, vitamin-D and zinc supplementation. She required supplemental oxygen up to 3 liters/minute by nasal cannula to maintain oxygen saturation above 90%. Patient was seen in consultation by Pulmonary-Dr. Rodriguez. She was clinically stable during the hospital stay. Patient is discharged with home oxygen. He is informed to return to the ED showed she feel more short of breath despite using oxygen and has to increase her oxygen flow. She is discharged with oral prednisone therapy. Vital Signs/Physical Exam: Temp Pulse Resp BP Pulse Ox 97.5 F 81 18 131/65 94 08/09/20 11:46 08/09/20 11:46 08/09/20 11:46 08/09/20 11:46 08/09/20 11:46 General: Alert, In no apparent distress Neck: JVD not distended Cardiovascular: Regular rate/rhythm Gastrointestinal: Non-distended Musculoskeletal: No swelling Integumentary: No rashes Neurological: Other (No focal motor deficit.) Laboratory Data at Discharge: WBC 3.30 K/uL (4.3-10.9) L D 08/07/20 03:27 Hgb 11.6 g/dL (12.0-15.0) L 08/07/20 03:27 Hct 35.3 % (36.0-45.0) L 08/07/20 03:27 Plt Count 167 K/uL (152-406) 08/07/20 03:27 PT 11.1 SECONDS (9.5-12.5) 08/06/20 19:45 INR 0.97 08/06/20 19:45 Sodium 139 mmol/L (136-145) 08/07/20 03:27 Potassium 4.1 mmol/L (3.5-5.1) 08/07/20 03:27 BUN 13 mg/dL (7-18) 08/07/20 03:27 Creatinine 0.49 mg/dL (0.55-1.3) L 08/07/20 03:27 Glucose 280 mg/dL (74-106) H 08/07/20 03:27 Magnesium 2.0 mg/dL (1.8-2.4) 08/07/20 03:27 Total Bilirubin 0.2 mg/dL (0.2-1.0) 08/06/20 19:45 AST 35 U/L (15-37) 08/06/20 19:45 ALT 33 U/L (12-78) 08/06/20 19:45 Alkaline Phosphatase 131 U/L (45-117) H 08/06/20 19:45 Troponin I < 0.02 ng/mL (0.0-0.045) 08/07/20 10:44 Lipase 54 U/L (73-393) L 08/06/20 19:45 Home Medications: Metformin ER [Glucophage ER*] 2 tab PO BID 09/30/17 Dicyclomine [Bentyl*] 20 mg PO QID 06/11/18 ALPRAZolam [Alprazolam] 1 tab PO DAILY PRN 08/07/20 Ertugliflozin Pidolate [Steglatro] 1 tab PO DAILY 08/07/20 Insulin Degludec [Tresiba Flextouch U-200] 60 unit SQ DAILY 08/07/20 Trazodone [Desyrel*] 1 tab PO BEDTIME 08/07/20 Ascorbic Acid [Vitamin C*] 2,000 mg PO BID #240 tablet 08/09/20 Benzonatate [Tessalon Perle*] 100 mg PO TID PRN #90 cap 08/09/20 Cholecalciferol (Vitamin D3) [Vitamin D 1000 Iu Tab*] 4,000 unit PO DAILY #120 tab 08/09/20 Melatonin 5 mg PO BEDTIME PRN PRN #30 tablet 08/09/20 Thiamine HCl [Vitamin B-1*] 200 mg PO DAILY #60 tablet 08/09/20 Zinc Sulfate [Zinc Sulfate*] 220 mg PO DAILY #30 cap 08/09/20 predniSONE [Deltasone] 20 mg PO BID #21 tab 08/09/20 New Medications: Melatonin 5 mg PO BEDTIME PRN PRN #30 tablet PRN Reason: Insomnia predniSONE [Deltasone] 20 mg PO BID #21 tab Benzonatate [Tessalon Perle*] 100 mg PO TID PRN #90 cap PRN Reason: Cough Thiamine HCl [Vitamin B-1*] 200 mg PO DAILY #60 tablet Ascorbic Acid [Vitamin C*] 2,000 mg PO BID #240 tablet Cholecalciferol (Vitamin D3) [Vitamin D 1000 Iu Tab*] 4,000 unit PO DAILY #120 tab Zinc Sulfate [Zinc Sulfate*] 220 mg PO DAILY #30 cap Diet: ADA Activity: Ad kiara Followup: Geoff Rodriguez MD [ACTIVE - CAN ADMIT] - 1 Week (Call to schedule for appointment.) Unknown,U [Primary Care Provider] - 1-2 Weeks (Call to schedule for appointment.) Time spent managing pt's care (in minutes): 33
== END 2020-08-09 14:29 | disposition home or self-care (01) | DRG 177 ==
LOC: ER 19:12 → ERHOLD 21:22 → 4TH 08-07 00:20 → OBSVTOIN 08-08 19:03
PROVIDERS: ADMIT Hospitalist; ATTEND Internal Medicine
DX: U07.1 COVID-19 (principal); J12.82 Pneumonia due to coronavirus disease 2019; J96.01 Acute respiratory failure with hypoxia; E11.9 Type 2 diabetes mellitus without complications; Z60.2 Problems related to living alone; Z79.899 Other long term (current) drug therapy; Z90.49 Acquired absence of other specified parts of digestive tract; Z90.710 Acquired absence of both cervix and uterus; Z79.4 Long term (current) use of insulin; Z79.52 Long term (current) use of systemic steroids
CPT/HCPCS: 36415; 71045; 80048; 80076; 81003; 81015; 81025; 82728; 82947; 83690; 83735; 83880; 84484; 85025; 85379; 85610; 86140; 87040; 87077; 87086; 87088; 87186; 93005; 96361; 96365; 96366; 96375; 99285; G0378; J0696; J1100; J1650; J1815; J2270; J2930; J7030; U0003

== ENCOUNTER 2020-09-21 13:51 | Emergency (ER) | payer OTHER ==
--- OUTSIDE RECORDS SUMMARY | 2020-09-21 13:54 | XMS REPORT | Continuity of Care Document ---
:1970 Author Organization [facility] t Address [facility] Chang [address] [place] [id number] Care Team Providers Name Role Phone Sharpless Primary Care Physician AIDA VELÁSQUEZ Attending Clinician Unavailable Problems This patient has no known problems. Allergies, Adverse Reactions, Alerts This patient has no known allergies or adverse reactions. Social History Social Habit Start Date Stop Date Quantity Comments Source Sex Assigned At [facility] Tobacco use and 2017-05-09 2017-05-09 Never used [facility] - exposure 00:00:00 00:00:00 [facility] Smoking Status Start Date Stop Date Source Never smoker [facility] Medications Ordered Filled Start Stop Current [...] 10:01: daily. Medi michele 10 mg 13 [place] tablet sertraline 2016-06 Yes 50mg QD Take [address] ([place]) 50 -10 by mouth [facility] - MG tablet 10:01: daily. Medica l [address] [place] metFORMIN 2016-06 Yes 500mg Take 500 [facility] [...] HCl HCl with a [facility] Immunizations Ordered Filled Immunization Date Status Comments [facility] Immunization Name Name Flucelvax - Flucelvax - 2019-03-[address] [facility] - multidose vial multidose vial 00:00:00 [facility] Procedures This patient has no known procedures. Encounters Start End Encounter Admission Attending Care Care Encounter Source Date/Time Date/Time Type Type Clinicians Facility Department ID 2020-08-24 2020-08-24 Outpatient [facility] [id number] [facility] 2020-08-17 2020-08-17 Outpatient [facility] [id number] [facility] 2020-08-11 2020-08-11 [facility] [id number] [facility] 2020-08-03 2020-08-03 [facility] [id number] [facility] 2020-07-31 2020-07-31 [facility] [id number] [facility] 2020-06-26 2020-06-26 [facility] [id number] [facility] 2020-06-15 2020-06-15 [facility] [id number] [facility] 2020-06-14 2020-06-14 [facility] [id number] [facility] 2020-06-12 2020-06-12 [facility] [id number] [facility] 2020-06-01 2020-06-01 [facility] [id number] [facility] 2020-05-29 2020-05-29 [facility] [id number] [facility] 2020-05-08 2020-05-08 [facility] [id number] [facility] 2020-05-04 2020-05-04 [facility] [id number] [facility] 2020-04-24 2020-04-24 [facility] [id number] [facility] 2020-04-20 2020-04-20 [facility] [id number] [facility] 2020-04-19 2020-04-19 Out[facility] [id number] [facility] 2020-04-18 2020-04-18 [facility] [id number] [facility] 2020-04-17 2020-04-17 Out[facility] [id number] [facility] 2020-04-11 2020-04-11 Outpatient [id number] [facility] 09:07:00 09:07:00 2020-01-26 2020-01-26 [facility] [id number] [facility] 14:36:00 14:36:00 [place] [employer] [facility] - [facility] Medicine l Medicine Outpati ent Clinics 2020-01-24 2020-01-24 [facility] [id number] 13:45:00 13:45:00 [place] [employer] [place] - Drive [facility] Medicine Outpat[facility] Clinics 2020-01-19 2020-01-19 [facility] [id number] 08:40:00 08:40:00 [place] [employer] - [employer] [facility] Medicine l Medicine Outpati ent Clinics 2020-01-18 2020-01-18 [facility] [id number] 15:20:00 15:20:00 [place] [employer] - [employer] [facility] Medicine Out[facility] Clinics 2020 2020 [facility] [id number] 14:44:00 14:44:00 [place] [employer] [facility] Medicine Outpati ent Clinics 2020 2020 [facility] [id number] 09:39:00 09:39:00 [place] [employer] - [employer] [facility] Medicine Outpati ent Clinics 2019-12-24 2019-12-24 [facility] [id number] 17:41:00 17:41:00 t [place] [facility] Medicine l Medicine Outpati ent Clinics 2019-12-21 2019-12-21 [facility] [id number] 09:20:00 09:20:00 [place] [employer] [facility] Medicine Outpati ent Clinics 2019-10-27 2019-10-27 [facility] [id number] [facility] 14:08:00 14:08:00 [place] [employer] [place] - Drive [facility] Medicine Outpati ent Clinics 2019-10-13 2019-10-13 [facility] [id number] 11:40:00 11:40:00 [place] [employer] - [employer] [facility] Medicine Outpati ent Clinics 2019-10-04 2019-10-04 [facility] [id number] [facility] 08:00:00 08:00:[address] [place] [address] [place] - [address] [facility] Medicine l Medicine Outpati ent Clinics 2019-08-26 2019-08-26 [facility] [id number] 09:30:00 09:30:00 [place] [employer] s - Drive [facility] Medicine l Medicine Outpati ent Clinics 2019-08-25 2019-08-25 [facility] [id number] 11:51:00 11:51:00 [place] [employer] - [address] [facility] Medicine l Medicine Outpati ent Clinics 2019-08-24 2019-08-24 [facility] [id number] 14:40:00 14:40:00 [place] [employer] [facility] Medicine l Medicine Outpati ent Clinics 2019-08-17 2019-08-17 [facility] [id number] 11:59:00 11:59:00 [place] [employer] [place] [address] [facility] Medicine l Medicine Outpati ent Clinics 2019-07-05 2019-07-05 [facility] [id number] 16:00:00 16:00:00 [place] [employer] [facility] Medicine l Medicine Outpati ent Clinics 2019-06-22 2019-06-22 [facility] [id number] 11:53:00 11:53:00 [place] [employer] [place] [address] [facility] Medicine l Medicine Outpati ent Clinics 2019-06-22 2019-06-22 [facility] [id number] 10:22:00 10:22:00 [place] [employer] [place] [address] [facility] Medicine l Medicine Outpati ent Clinics 2019-05-24 2019-05-24 [facility] [id number] 10:00:00 10:00:00 [place] [employer] [place] [address] [facility] Medicine l Medicine Outpati ent Clinics 2019-05-05 2019-05-05 [facility] [id number] 15:44:00 15:44:00 [place] [employer] [facility] Outpati ent Clinics 2019-05-04 2019-05-04 [facility] [id number] 15:20:00 15:20:00 [facility] Outpati ent Clinics 2019-04-27 2019-04-27 [facility] [id number] 17:18:00 17:18:00 [facility] Outpati ent Clinics 2019-04-26 2019-04-26 [facility] [id number] [facility] 17:24:00 17:24:00 [facility] Outpati ent Clinics 2019-04-20 2019-04-20 [facility] [id number] [facility] 08:27:00 08:27:00 [facility] Outpati ent Clinics 2019-04-12 2019-04-12 [facility] [id number] 11:00:00 11:00:00 [facility] Outpati ent Clinics 2019-03-30 2019-03-30 [facility] [id number] 14:00:00 14:00:00 [facility] [employer] [facility] Results Test Description Test Time Test Comments Results Result [facility] Comments MM, STEREOTACTIC 2017-04-30 Reason for Addendum BeginsMRN#: BIOPSY, BREAST, 5 Exam:->calcificati [id number]: LEFT 15:59:00 on 05/14/2017 Lizzette Velásquez M.D. 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 Addendum EndsMRN#: [id number] - MM, STEREOTACTIC BIOPSY, BREAST, LEFTSTEREOTACTIC GUIDED [...] correct location, five specimens were obtained using [employer] SolutionsIVA device. A clip was inserted into the [...] the calcifications. Lizzette Velásquez M.D. pth/penrad:05/09/2017 11:07:57 Communication Professor: Felicia Rizzo RT(Linda)(M), [facility] [id number] UE EXAM 2017-04-30 Surgical Pathology 3 Report 12:48:00 Case: [id number] Authorizing Provider: Lizzette Velásquez MD Collected: 05/09/2017 [...] WITH FIBROADENOMA Signing Pathologist Direct Phone Line: [phone] ally signed by Jackie Maradiaga MD on 05/12/2017 at 12:48 PMIn the sections examined, no atypical hyperplasia or carcinoma is identified.[id number] sing lesion Left middle 12 o'clock breast calcifications The specimen is received in a formalin-filled container labeled with the patient's information and labeled "left middle 12 o'clock breast calcifications" and consists of multiple yellow-white breast core biopsies ranging in length from 0.6 to 2.5 cm.Ink code: Black.The specimen is submitted entirely in A1 and A2. CG/ewPerformed.[facility], Department of Pathology, [address] [place] [address], [place] [address], MM, DIGITAL, 2017-04-30 Left breast MRN#: UNILATERAL, 0 calcifications [id number] - CONFER MARTA, 11:07:00 MM, DIGITAL, MAMMO, [...] pathology results. Lizzette Velásquez M.D. pth/:05/09/2017 11:07:15 Communication Professor: Felicia SCHNEIDER)(Phil), [facility] Mammogram BI-RADS: Post-procedure mammogram for marker placement [id number] , MAMMO, 2017-04-30 Reason for MRN#: SPECIMEN, 0 exam:->Left breast [id number] - RADIOGRAPH, LEFT 11:06:00 calcifications MM, MAMMO, SPECIMEN, RADIOGRAPH, LEFTSPECIMEN LEFT BREAST: 05/09/2017Five stereotactic guided biopsy specimens were imaged for the area of calcifications located in the left breast at 12 o'clock middle depth. IMPRESSION: SPECIMENThe imaged specimens includes the calcifications. Lizzette Velásquez M.D. pth/:05/09/2017 11:06:40 Communication Professor: Felicia SCHNEIDER)(M), [facility] [id number]
[2020-09-21] MEDS ORDERED: IPRATROPIUM BROM 0.5MG/2.5ML ONE (16:55)
[2020-09-21] MEDS ORDERED: ALBUTEROL 2.5 MG/3 ML NEB SOL ONE (16:56)
[2020-09-21 17:12] LABS: Absolute Lymphocytes (CBC) 1.8 K/uL (0.7-4.9); Basophils % 1.2 % (0-1.3); Hematocrit 34.1 % (36.0-45.0); Lymphocytes % 28.6 % (15.3-44.8); MPV 9.4 fL (7.6-11.3); RBC Red Blood Cell Count 4.09 M/uL (3.86-4.86)
--- NOTE | 2020-09-21 17:41 | RAD REPORT ---
EXAM DESCRIPTION: CT - Chest Abdomen Pelvis W Cont - 09/21/2020 5:18 pm CLINICAL HISTORY: SOB, abdominal pain COMPARISON: No comparisons TECHNIQUE: Following dynamic enhancement using 100 milliliters nonionic IV contrast, axial imaging o f the chest, abdomen and pelvis was performed. Biphasic technique was utilized through the abdomen. Oral contrast was administered. All CT scans are performed using dose optimization technique as appropriate and may include automated exposure control or mA/KV adjustment according to patient size. FINDINGS: Lungs are clear of mass and infiltrate. No pleural effusion, pleural thickening or pneumot horax. No significant aortic or pulmonary arterial tree finding. Mediastinal and hilar regions show n o mass or abnormal lymphadenopathy. No chest wall mass or axillary lymphadenopathy. Liver shows fatty infiltration with no focal liver lesion. No portal vein abnormality. Spleen and parisi creas show no suspicious findings. Gallbladder is out. No biliary tree dilatation. Gallstones can be occult on CT imaging. Symmetric renal function is seen with no mass or hydronephrosis. No adrenal abn ormalities. Contracted urinary bladder shows no suspicious finding. Uterus is absent. Small ovaries a re present. No adnexal mass. No stomach or small bowel abnormality. Patient has diverticulosis but no diverticulitis. The appendix is normal. No acute GI findings seen. Disc and bone degenerative changes are present. No significant vascular findings. IMPRESSION: CT chest, abdomen and pelvis imaging shows no acute or emergent finding. Nonacute findings detailed in the body of the report.
[2020-09-21 17:43] LABS: ALT/SGPT 46 U/L (12-78); AST/SGOT 32 U/L (15-37); Albumin 3.5 g/dL (3.4-5.0); Alkaline Phosphatase 110 U/L (45-117); BUN Blood Urea Nitrogen 8 mg/dL (7-18); Bicarbonate 32 mmol/L (21-32); Bilirubin Direct < 0.1 mg/dL (0-0.2); Bilirubin Total 0.3 mg/dL (0.2-1.0); Glucose Level 193 mg/dL (74-106); NT PRO-BNP 101 pg/mL (<125); Potassium 3.6 mmol/L (3.5-5.1); Protein, Total 6.8 g/dL (6.4-8.2); Sodium Level 141 mmol/L (136-145); Troponin (Emerg Dept Use Only) < 0.02 ng/mL (0.0-0.045)
--- NOTE | 2020-09-21 17:56 | RAD REPORT ---
EXAM DESCRIPTION: RAD - Chest Single View - 09/21/2020 5:10 pm CLINICAL HISTORY: SOB COMPARISON: August 06 TECHNIQUE: AP portable chest image was obtained 09/21/2020 5:10 pm . FINDINGS: No focal lung parenchymal process. Interstitial and alveolar opacities seen on the Februar y examination resolved. Heart and vasculature are normal. No measurable pleural effusion and no pneum othorax. No acute bony abnormality seen. No acute aortic findings suspected. IMPRESSION: No acute cardiopulmonary process.
--- NOTE | 2020-09-21 19:07 | ER ---
Nurse's Notes [facility] Name: Dena Nance Age: 50 yrs Sex: Female : 1970 Arrival Date: 09/21/2020 Time: 14:13 Bed 25 Private MD: Anette Benjamin Diagnosis: Shortness of breath;Dyspnea, unspecified Presentation: 09/21 14:22 Chief complaint: Patient states: SOB started around 1100 today. Last month was in the [facility] hospital for Covid Pneumonia. Reports a little cough. Reports hurting all over. Coronavirus screen: Client denies travel out of the [place] in the last 14 days. shortness of breath, Client presents with at least one sign or symptom that may indicate coronavirus-19. Standard/surgical mask placed on the client. Provider contacted for isolation considerations. Client reports previous positive COVID test result. Date of collection: August 25, 2020. Ebola Screen: Patient negative for fever greater than or equal to 101.5 degrees Fahrenheit, and additional compatible Ebola Virus Disease symptoms Patient denies exposure to infectious person. Patient denies travel to an Ebola-affected area in the 21 days before illness onset. No symptoms or risks identified at this time. Initial Sepsis Screen: Does the patient meet any 2 criteria? No. Patient's initial sepsis screen is negative. Does the patient have a suspected source of infection? No. Patient's initial sepsis screen is negative. Risk Assessment: Do you want to hurt yourself or someone else? Patient reports no desire to harm self or others. Onset of symptoms was September 21, 2020. 14:22 Method Of Arrival: Ambulatory ca1 14:22 Acuity: MARIANA 3 ca1 Triage Assessment: 19:32 Respiratory: Onset: The symptoms/episode began/occurred today. 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 - Social history:: Smoking status: Patient denies any tobacco usage or history of. Screenin:12 Abuse screen: Denies threats or abuse. Denies injuries from another. Nutritional zb screening: No deficits noted. Tuberculosis screening: No symptoms or risk factors identified. Fall Risk None identified. Assessment: 16:05 General: Appears in no apparent distress. uncomfortable, Behavior is calm, cooperative, zb appropriate for age, Reports chills for 2-3 days, feeling ill for 2-3 days, fatigue for 2-3 days. Pain: Complains of pain in chest, generalized body aches. Neuro: Level of Consciousness is awake, alert, obeys commands, Oriented to person, place, time, situation. Cardiovascular: Capillary refill < 3 seconds Patient's skin is warm and dry. Rhythm is regular. Cardiovascular: Heart tones S1 S2 present. Respiratory: Reports shortness of breath at rest the patient has mild shortness of breath. Respiratory: Airway is patent Respiratory effort is even, unlabored, Respiratory pattern is regular, symmetrical, tachypnea Breath sounds are clear. GI: Abdomen is round. Derm: Skin is intact, is healthy with good turgor, Skin is normal, Skin temperature is warm. Musculoskeletal: Range of motion: intact in all extremities. 16:25 Reassessment: ECP at bedside. zb 17:47 Reassessment: Patient appears in no apparent distress at this time. Patient and/or zb family updated on plan of care and expected duration. Pain level reassessed. Patient is alert, oriented x 3, equal unlabored respirations, skin warm/dry/pink. 18:20 Reassessment: Patient appears in no apparent distress at this time. Patient and/or zb family updated on plan of care and expected duration. Pain level reassessed. Patient is alert, oriented x 3, equal unlabored respirations, skin warm/dry/pink. patient states she feels better. 19:30 Reassessment: Patient appears in no apparent distress at this time. Patient and/or zb family updated on plan of care and expected duration. Pain level reassessed. Patient is alert, oriented x 3, equal unlabored respirations, skin warm/dry/pink. d/c instructions given. gait steady and even. patient up at kiara. Vital Signs: 14:22 BP 129 / 62; Pulse 97; Resp 16 S; Temp 97.3(TE); Pulse Ox 99% on R/A; Weight 79.38 kg ca1 (R); Height 5 ft. 4 in. (162.56 cm) (R); Pain 10/10; 16:25 BP 125 / 56; Pulse 82; Resp 22; Pulse Ox 100% on R/A; zb 17:45 BP 122 / 52; Pulse 85; Resp 20; Pulse Ox 98% on R/A; zb 19:31 BP 128 / 55; Pulse 91; Resp 18; Pulse Ox 99% on R/A; zb 14:22 Body Mass Index 30.04 (79.38 kg, 162.56 cm) ca1 ED Course: 14:13 Patient arrived in ED. am2 14:13 Anette Benjamin MD is Private Physician. am2 14:25 Triage completed. ca1 14:25 Arm band placed on right wrist. ca1 14:57 Francisco Hoskins MD is Attending Physician. kdr 15:57 Jennifer Vitale RN is Primary Nurse. zb 17:01 Inserted saline lock: 20 gauge in left antecubital area, using aseptic technique. Blood dh4 collected. 17:10 XRAY Chest (1 view) In Process Unspecified. EDMS 17:18 CT Chest, Abdomen, Pelvis - W/Contrast In Process Unspecified. EDMS 19:06 Anette Benjamin MD is Referral Physician. kdr 19:31 No provider procedures requiring assistance completed. IV discontinued, intact, zb bleeding controlled, No redness/swelling at site. Pressure dressing applied. 19:32 Patient has correct armband on for positive identification. Placed in gown. Bed in low zb position. Call light in reach. Side rails up X 1. certified medication aide on. Pulse ox on. NIBP on. Door closed. Noise minimized. Warm blanket given. Administered Medications: 17:30 Drug: Albuterol - atroVENT (ipratropium) (3:1) (2.5 mg - 0.5 mg) 3 ml Route: Nebulizer; zb 18:06 Follow up: Response: No adverse reaction; Marked relief of symptoms zb Outcome: 19:06 Discharge ordered by . kdr 19:32 Discharged to home ambulatory. zb 19:32 Condition: stable 19:32 Discharge instructions given to patient, Instructed on discharge instructions, follow up and referral plans. medication usage, Demonstrated understanding of instructions, follow-up care, medications, Prescriptions given X 1. 19:32 Patient left the ED. zb Signatures: Dispatcher [employer] EDMS Francisco Hoskins MD MD [facility] Liza Vásquez 2 Windy Narvaez RN RN [facility] Gurjit Frausto 4 Jennifer Vitale RN RN zb Corrections: (The following items were deleted from the chart) 16:25 16:05 Respiratory: Airway is patent Respiratory effort is even, unlabored, Respiratory zb pattern is regular, symmetrical, Breath sounds are clear zb
--- NOTE | 2020-09-21 19:07 | EDPHYS ---
Physician Documentation [facility] Name: Dena Nance Age: 50 yrs Sex: Female : 1970 Arrival Date: 09/21/2020 Time: 14:13 Bed 25 Private MD: Anette Benjamin ED Physician Francisco Hoskins HPI: 09/21 17:18 This 50 yrs old Female presents to ER via Ambulatory with complaints of kdr Breathing Difficulty. 17:18 The patient has shortness of breath at rest, with light activity. Onset: The kdr symptoms/episode began/occurred suddenly, just prior to arrival, at 11:00. Duration: The symptoms are continuous, and are steadily getting worse. The patient's shortness of breath is aggravated by exertion, light activity, is alleviated by rest. Associated signs and symptoms: Pertinent positives: non-productive cough, nausea, Pertinent negatives: chest pain, productive cough. Severity of symptoms: At their worst the symptoms were mild in the emergency department the symptoms. [employer] MECH[employer]IC: 14:25 LMP N/A - Hysterectomy ca1 Historical: - Allergies: 14:25 NKA; ca1 - PMHx: 14:25 Diabetes - IDDM; Diabetes - NIDDM; Diverticulitis; fatty liver; Pancreatitis; ca1 - PSHx: 14:25 Cholecystectomy; Hysterectomy; ca1 - Immunization history:: Client reports receiving the 2nd dose of the Covid vaccine, Date received: September 16, 2020 Flu vaccine is up to date. - Social history:: Smoking status: Patient denies any tobacco usage or history of. ROS: 18:50 Constitutional: Negative for fever, chills, and weight loss, Eyes: Negative for injury, kdr pain, redness, and discharge, ENT: Negative for injury, pain, and discharge, Neck: Negative for injury, pain, and swelling, Cardiovascular: Negative for chest pain, palpitations, and edema, Back: Negative for injury and pain, : Negative for injury, bleeding, discharge, and swelling, MS/Extremity: Negative for injury and deformity, Skin: Negative for injury, rash, and discoloration, Neuro: Negative for headache, weakness, numbness, tingling, and seizure activity. Psych: Negative for depression, anxiety, suicide ideation, homicidal ideation, and hallucinations, Allergy/Immunology: Negative for hives, rash, and allergies, Endocrine: Negative for neck swelling, polydipsia, polyuria, polyphagia, and marked weight changes, Hematologic/Lymphatic: Negative for swollen nodes, abnormal bleeding, and unusual bruising. 18:50 Respiratory: Positive for cough, dyspnea on exertion, shortness of breath, on exertion. Negative for hemoptysis, orthopnea, pleurisy, sputum production, wheezing. Exam: 17:16 ECG was reviewed by the Attending Physician. kdr 18:50 Constitutional: This is a well developed, well nourished patient who is awake, alert, kdr and in no acute distress. Head/Face: Normocephalic, atraumatic. Eyes: Pupils equal round and reactive to light, extra-ocular motions intact. Lids and lashes normal. Conjunctiva and sclera are non-icteric and not injected. Cornea within normal limits. Periorbital areas with no swelling, redness, or edema. Neck: Trachea midline, no thyromegaly or masses palpated, and no cervical lymphadenopathy. Supple, full range of motion without nuchal rigidity, or vertebral point tenderness. No Meningismus. Chest/axilla: Normal chest wall appearance and motion. Nontender with no deformity. No lesions are appreciated. Cardiovascular: Regular rate and rhythm with a normal S1 and S2. No gallops, murmurs, or rubs. Normal PMI, no JVD. No pulse deficits. Back: No spinal tenderness. No costovertebral tenderness. Full range of motion. Skin: Warm, dry with normal turgor. Normal color with no rashes, no lesions, and no evidence of cellulitis. MS/ Extremity: Pulses equal, no cyanosis. Neurovascular intact. Full, normal range of motion. Neuro: Awake and alert, GCS 15, oriented to person, place, time, and situation. Cranial nerves II-XII grossly intact. Motor strength 5/5 in all extremities. Sensory grossly intact. Cerebellar exam normal. Normal gait. Psych: Awake, alert, with orientation to person, place and time. Behavior, mood, and affect are within normal limits. 18:50 Respiratory: the patient does not display signs of respiratory distress, Respirations: normal, Breath sounds: are clear throughout. Vital Signs: 14:22 BP 129 / 62; Pulse 97; Resp 16 S; Temp 97.3(TE); Pulse Ox 99% on R/A; Weight 79.38 kg ca1 (R); Height 5 ft. 4 in. (162.56 cm) (R); Pain 10/10; 16:25 BP 125 / 56; Pulse 82; Resp 22; Pulse Ox 100% on R/A; zb 17:45 BP 122 / 52; Pulse 85; Resp 20; Pulse Ox 98% on R/A; zb 19:31 BP 128 / 55; Pulse 91; Resp 18; Pulse Ox 99% on R/A; zb 14:22 Body Mass Index 30.04 (79.38 kg, 162.56 cm) ca1 MDM: 19:06 Patient medically screened. kdr 19:17 Data reviewed: vital signs, lab test result(s), EKG, radiologic studies. Counseling: I kdr had a detailed discussion with the patient and/or guardian regarding: the historical points, exam findings, and any diagnostic results supporting the discharge/admit diagnosis, lab results, radiology results, the need for outpatient follow up. 09/21 16:19 Order name: Basic Metabolic Panel; Complete Time: 18:43 kdr 09/21 16:19 Order name: CBC with Diff; Complete Time: 18:43 kdr 09/21 16:19 Order name: LFT's; Complete Time: 18:43 kdr 09/21 16:19 Order name: Magnesium; Complete Time: 18:43 kdr 09/21 16:19 Order name: NT PRO-BNP; Complete Time: 18:43 kdr 09/21 16:19 Order name: PT-INR; Complete Time: 18:43 kdr 09/21 16:19 Order name: Troponin (emerg Dept Use Only); Complete Time: 18:43 kdr 09/21 16:19 Order name: XRAY Chest (1 view); Complete Time: 18:43 kdr 09/21 16:19 Order name: EKG; Complete Time: 16:20 kdr 09/21 16:19 Order name: Cardiac monitoring; Complete Time: 17:02 kdr 09/21 16:31 Order name: Blood Culture Adult (2) kdr 09/21 16:31 Order name: CT Chest, Abdomen, Pelvis - W/Contrast; Complete Time: 18:43 kdr 09/21 18:26 Order name: Glucose, Ancillary Testing; Complete Time: 18:43 EDMS 09/21 16:19 Order name: EKG - Nurse/Tech; Complete Time: 17:02 kdr 09/21 16:19 Order name: IV Saline Lock; Complete Time: 17: [facility] 09/21 16:19 Order name: Labs collected and sent; Complete Time: [facility] 09/21 16:19 Order name: O2 Per Protocol; Complete Time: : [facility] 09/21 16:19 Order name: O2 Sat Monitoring; Complete Time: : [facility] EC:16 Rate is 88 beats/min. Rhythm is regular, Normal Sinus Rhythm with No ectopy. QRS [place] kdr is Normal. MD interval is normal. QRS interval is normal. QT interval is normal. Clinical impression: Normal ECG. Administered Medications: 17:30 Drug: Albuterol - atroVENT (ipratropium) (3:1) (2.5 mg - 0.5 mg) 3 ml Route: Nebulizer; zb 18:06 Follow up: Response: No adverse reaction; Marked relief of symptoms zb Disposition: 09/21/20 19:06 Discharged to Home. Impression: Shortness of breath, Dyspnea, unspecified. - Condition is Stable. - Discharge Instructions: Shortness of Breath, [id number]. - Prescriptions for Albuterol Sulfate 90 mcg/actuation - inhale 1-2 puff by INHALATION route every 4-6 hours; 1 Inhaler. - Medication Reconciliation Form, Thank You Letter form. - Follow up: Anette Benjamin MD; When: 2 - 3 days; Reason: If symptoms return, Further diagnostic work-up, Recheck today's complaints, Continuance of care, Re-evaluation by your physician. - Problem is an acute exacerbation. - Symptoms are unchanged. Signatures: Dispatcher [employer] [facility] Francisco Hoskins MD MD [facility] Windy Narvaez RN RN ca1 Brown, Zipporah, RN RN zb Corrections: (The following items were deleted from the chart) 19:32 19:06 09/21/2020 19:06 Discharged to Home. Impression: Shortness of breath; Dyspnea, zb unspecified. Condition is Stable. Forms are Medication Reconciliation Form, Thank You Letter, Antibiotic Education, Prescription Opioid Use. Follow up: Anette Benjamin; When: 2 - 3 days; Reason: If symptoms return, Further diagnostic work-up, Recheck today's complaints, Continuance of care, Re-evaluation by your physician. Problem is an acute exacerbation. Symptoms are unchanged. kdr
[2020-09-21 21:00] VITALS: TEMP 97.3
[2020-09-21 21:06] VITALS: BP 128/55; O2SAT 99
--- NOTE | 2020-09-22 06:45 | EKG ---
Test Date: 2020-09-21 Test Time: 16:40:29 Clinical Nurse Specialist: JANEE MEASUREMENT RESULTS: Intervals: Rate: 88 TX: 162 QRSD: 80 QT: 346 QTc: 418 [place]: P: 77 TX: 162 QRS: 63 T: 31 INTERPRETIVE STATEMENTS: Normal sinus rhythm Normal ECG Compared to ECG 08/07/2020 11:03:23 No significant changes Electronically Signed On 09-22-20 06:43:57 CDT by Jeff Rapp
== END 2020-09-21 19:32 | disposition home or self-care (01) ==
LOC: ER 13:51
DX: U07.1 COVID-19 (principal); E11.9 Type 2 diabetes mellitus without complications
CPT/HCPCS: 93005; 87040 ×2; 85025; 80048; 36415; 83735; 85610; 82565; 82947; 80076; 84484; 83880; 71260; 74177; 71045; 99285; U0003; Q9967

== ENCOUNTER 2020-11-20 08:24 | Emergency (ER) | payer OTHER ==
--- OUTSIDE RECORDS SUMMARY | 2020-11-20 08:28 | XMS REPORT | Continuity of Care Document ---
:1970 Author Organization [facility] t Address [facility] Chang [address] [place] [id number] Care Team Providers Name Role Phone Sharpless Primary Care Physician AIDA VELÁSQUEZ Attending Clinician Unavailable Problems This patient has no known problems. Allergies, Adverse Reactions, Alerts This patient has no known allergies or adverse reactions. Social History Social Habit Start Date Stop Date Quantity Comments Source Sex Assigned At [facility] Tobacco use and 2017-05-09 2017-05-09 Never used [facility] - exposure 00:00:00 00:00:00 [facility] Smoking Status Start Date Stop Date Source Never smoker [facility] Medications Ordered Filled Start Stop Current Ordering [...] 10:01: daily. Medi michele 10 mg 13 [place] tablet sertraline 2016-06 Yes 50mg QD Take [address] (ZOLOFT) 50 -10 by mouth Luke [facility] - MG tablet 10:01: daily. Medica l 13 [place] metFORMIN 2016-06 Yes 500mg Take 500 [facility] [...] HCl HCl with a [facility] - meal [facility] Immunizations Ordered Filled Immunization Date Status Comments [facility] e Immunization Name Name Flucelvax - Flucelvax - 2019-03-[address] [facility] - multidose vial multidose vial 00:00:00 [facility] Procedures This patient has no known procedures. Encounters Start End Encounter Admission Attending Care Care Encounter Source Date/Time Date/Time Type Type Clinicians Facility Department ID 2020-11-16 2020-11-16 Outpatient [facility] [id number] 2020-11-06 2020-11-06 Out[facility] [id number] [facility] 2020-10-03 2020-10-03 Out[facility] [id number] [facility] 2020-09-28 2020-09-28 Out[facility] [id number] [facility] 2020-08-24 2020-08-24 Out[facility] [id number] [facility] 2020-08-17 2020-08-17 Out[facility] [id number] [facility] 2020-08-11 2020-08-11 Out[facility] [id number] [facility] 2020-08-03 2020-08-03 [facility] [id number] [facility] 2020-07-31 2020-07-31 [facility] [id number] [facility] 2020-06-26 2020-06-26 [facility] [id number] [facility] 2020-06-15 2020-06-15 [facility] [id number] [facility] 2020-06-14 2020-06-14 [facility] [id number] [facility] 2020-06-12 2020-06-12 [facility] [id number] [facility] 2020-06-01 2020-06-01 Out[facility] [id number] [facility] 2020-05-29 2020-05-29 Out[facility] [id number] [facility] 2020-05-08 2020-05-08 [facility] [id number] [facility] 2020-05-04 2020-05-04 [facility] [id number] [facility] 2020-04-24 2020-04-24 [facility] [id number] [facility] 2020-04-20 2020-04-20 Out[facility] [id number] [facility] 2020-04-19 2020-04-19 Outpatient [facility] [id number] [facility] 2020-04-18 2020-04-18 Outpatient [facility] [id number] [facility] 2020-04-17 2020-04-17 [facility] [id number] [facility] 2020-04-11 2020-04-11 Outpatient [id number] [facility] 09:07:00 09:07:00 2020-01-26 2020-01-26 [facility] [id number] [facility] 14[facility] 14:36:[id number] - [address] [facility] Outpat[facility] Clinics 2020-01-24 2020-01-24 [facility] [id number] 13:45:00 13:45:00 [place] - [facility] Medicine l Medicine Outpat[facility] ent Clinics 2020-01-19 2020-01-19 [facility] [id number] 08:40:00 08:40:[id number] [facility] Medicine l Medicine Outpat[facility] ent Clinics 2020-01-18 2020-01-18 [facility] [id number] 15:20:00 15:20:00 [place] [address] [facility] Medicine Outpat[facility] ent Clinics 2020 2020 [facility] [id number] 14:44:00 14:44:00 [place] [address] [facility] Medicine l Medicine Outpat[facility] ent Clinics 2020 2020 [facility] [id number] 09:39:00 09:39:[id number] [facility] Medicine l Medicine Outpati ent Clinics 2019-12-24 2019-12-24 [facility] [id number] 17:41:00 17:41:00 [place] Guest [employer] a Guest s - Box[employer] [facility] Medicine l Medicine Outpati ent Clinics 2019-12-21 2019-12-21 [facility] [id number] [facility] 09:20:00 09:20:00 [place] [employer] [place] [employer] s - [facility] Medicine l Medicine Outpati ent Clinics 2019-10-27 2019-10-27 [facility] [id number] [facility] 14:08:00 14:08:00 [place] [address] [facility] Medicine l Medicine Outpati ent Clinics 2019-10-13 2019-10-13 [facility] [id number] 11:40:00 11:40:00 t [place] - Boxed [facility] l Medicine Outpati ent Clinics 2019-10-04 2019-10-04 [facility] [id number] 08:00:00 08:00:00 t [place] - Boxed [facility] Medicine Outpati ent Clinics 2019-08-26 2019-08-26 [facility] [id number] [facility] 09:30:00 09:30:00 t [place] - [employer] [facility] Medicine l Medicine Outpati ent Clinics 2019-08-25 2019-08-25 [facility] [id number] 11:51:00 11:51:00 t [place] [employer] [facility] l Medicine Outpati ent Clinics 2019-08-24 2019-08-24 [facility] [id number] [facility] 14:40:00 14:40:00 t [place] - [employer] [facility] Medicine l Medicine Outpati ent Clinics 2019-08-17 2019-08-17 [facility] [id number] 11:59:00 11:59:00 t [place] - [employer] [facility] l Medicine Outpati ent Clinics 2019-07-05 2019-07-05 [facility] [id number] [facility] 16:00:00 16:00:00 t [place] - [employer] [facility] Medicine Outpati ent Clinics 2019-06-22 2019-06-22 [facility] [id number] [facility] 11:53:00 11:53:00 [place] Guest of a Guest s - Boxed [facility] Medicine l Medicine Outpati ent Clinics 2019-06-22 2019-06-22 [facility] [id number] [facility] 10:22:00 10:22:00 [place] Guest of a Guest s - Drive [facility] Medicine l Medicine Outpati ent Clinics 2019-05-24 2019-05-24 [facility] [id number] 10:00:00 10:00:00 t [place] Guest of a Guest s - Boxed [facility] Medicine l Medicine Outpati ent Clinics 2019-05-05 2019-05-05 [facility] [id number] 15:44:00 15:44:00 t [place] - [employer] [facility] Medicine l Medicine Outpati ent Clinics 2019-05-04 2019-05-04 [facility] [id number] 15:20:00 15:20:00 t [place] - [employer] [facility] Medicine l Medicine Outpati ent Clinics 2019-04-27 2019-04-27 [facility] [id number] [facility] 17:18:00 17:18:00 t [place] - [employer] [facility] Medicine l Medicine Outpati ent Clinics 2019-04-26 2019-04-26 [facility] [id number] 17:24:00 17:24:00 t [place] Next Caller [facility] Medicine l Medicine Outpati ent Clinics 2019-04-20 2019-04-20 [facility] [id number] [facility] 08:27:00 08:27:00 t [place] Next Caller [facility] Medicine l Medicine Outpati ent Clinics 2019-04-12 2019-04-12 [facility] [id number] 11:00:00 11:00:00 t [place] [employer] [address] [facility] Medicine l Medicine Outpati ent Clinics 2019-03-30 2019-03-30 [facility] [id number] 14:00:00 14:00:00 t [place] - Box[employer] [facility] Medicine Medicine Outpati ent Clinics Results Test Description Test Time Test Comments Results Result [facility] e Comments MM, STEREOTACTIC 2017-04-30 Reason for Addendum BeginsMRN#: BIOPSY, BREAST, 5 Exam:->calcificati [id number]: LEFT 15:59:00 on 05/14/2017 Lizzette Velásquez M.D. 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 Addendum EndsN#: [id number] - MM, STEREOTACTIC BIOPSY, BREAST, LEFTSTEREOTACTIC GUIDED [...] correct location, five specimens were obtained using HeliospectraIVA device. A clip was inserted into the [...] calcifications. Lizzette Velásquez M.D. pth/penrad:05/09/2017 11:07:57 Production Estimator: Felicia Rizzo RT(R)(M), [facility] [id number] UE EXAM 2017-04-30 Surgical Pathology 3 Report 12:48:00 Case: [id number] Authorizing Provider: Lizzette Velásquez MD Collected: 05/09/2017 1110 Ordering Location: [facility] Received: 05/09/2017 1312 Pathologist: Jackie Maradiaga MD Specimen: Breast, Left, LEFT MIDDLE 12 BREAST CALCIFICATION BREAST, LEFT, MIDDLE 12 O'CLOCK, CALCIFICATIONS, STEREOTACTIC CORE NEEDLE BIOPSY: - HYALINIZED FIBROADENOMA - COLUMNAR CELL HYPERPLASIA - COLUMNAR CELL CHANGES - MICROCALCIFICATIONS, COARSE, ASSOCIATED WITH FIBROADENOMA Signing Pathologist Direct Phone Line: [phone] ally signed by Jackie Maradiaga MD on 05/12/2017 at 12:48 PMIn the sections examined, no atypical hyperplasia or carcinoma is identified.[id number] sing lesion Left middle 12 o'clock breast calcifications The specimen is received in a formalin-filled container labeled with the patient's information and labeled "left middle 12 o'clock breast calcifications" and consists of multiple yellow-white breast core biopsies ranging in length from 0.6 to 2.5 cm.Ink code: Black.The specimen is submitted entirely in A1 and A2. CG/ewPerformed.[facility], Department of Pathology, [address] [place] [id number], MM, DIGITAL, 2017-04-30 Left breast MRN#: UNILATERAL, 0 calcifications [id number] - CONFER MARTA, 11:07:00 MM, DIGITAL, MAMMO, [...] results. Lizzette Velásquez M.D. pth/:05/09/2017 11:07:15 Production Estimator: Felicia BELLA(R)(M), [facility] Mammogram BI-RADS: Post-procedure mammogram for marker placement [id number] , MAMMO, 2017-04-30 Reason for MRN#: SPECIMEN, 0 exam:->Left breast [id number] - RADIOGRAPH, LEFT 11:06:00 calcifications MM, MAMMO, SPECIMEN, RADIOGRAPH, LEFTSPECIMEN LEFT BREAST: 05/09/2017Five stereotactic guided biopsy specimens were imaged for the area of calcifications located in the left breast at 12 o'clock middle depth. IMPRESSION: SPECIMENThe imaged specimens includes the calcifications. Lizzette Velásquez M.D. pth/:05/09/2017 11:06:40 Production Estimator: Felicia BELLA(R)(M), [facility] [id number]
[2020-11-20 09:11] LABS: Absolute Lymphocytes (CBC) 1.2 K/uL (0.7-4.9); Basophils % 0.9 % (0-1.3); Hematocrit 35.8 % (36.0-45.0); Lymphocytes % 23.1 % (15.3-44.8); MPV 9.9 fL (7.6-11.3); RBC Red Blood Cell Count 4.38 M/uL (3.86-4.86)
[2020-11-20 09:12] LABS: Protime INR 1.09
[2020-11-20] MEDS ORDERED: NA CHLORIDE 0.9% 1,000 ML ONE (09:19)
[2020-11-20] MEDS ORDERED: ONDANSETRON 4 MG/2 ML VIAL ONE (09:19)
[2020-11-20] MEDS ORDERED: FAMOTIDINE 20 MG/2 ML VIAL IV ONE (09:19)
[2020-11-20] MEDS ORDERED: MORPHINE 4 MG/ML SYR ONE (09:19)
--- NOTE | 2020-11-20 10:10 | RAD REPORT ---
EXAM DESCRIPTION: CT - Abdomen Pelvis W Contrast - 11/20/2020 9:06 am CLINICAL HISTORY: ABD PAIN COMPARISON: Abdomen Pelvis W Contrast dated 05/16/2020; Abdomen Pelvis W Contrast dated 0 TECHNIQUE: Biphasic, helical CT imaging of the abdomen and pelvis was performed following 100 ml non -ionic IV contrast. No oral contrast administered. All CT scans are performed using dose optimization technique as appropriate and may include automated exposure control or mA/KV adjustment according to patient size. FINDINGS: No suspicious findings in the lung bases. Diffuse fatty infiltration of the liver again noted. No focal liver lesion. No portal vein abnormalit y. Pancreas and spleen remain unremarkable. Gallbladder and biliary tree are also without suspicious finding. Symmetric renal function is seen with no hydronephrosis or suspicious renal mass. No pyelonephritis o r acute parenchymal process. No bladder abnormalities. No adrenal abnormalities. Uterus is absent. No ovarian abnormality seen. No dilated bowel loops or bowel wall thickening. No appendicitis findings. Sigmoid diverticulosis is very minimal. No diverticulitis findings. Sigmoid is tortuous. No free air, free fluid or inflammator y stranding. No hernia, mass or bulky lymphadenopathy. No suspicious bony findings. IMPRESSION: Contrast enhanced CT abdomen and pelvis showing no significant or suspicious finding. Nonacute findings detailed in the body of the report. Exam is not significantly different from Novemb er 2019.
[2020-11-20 10:33] LABS: AST/SGOT 49 U/L (15-37); BUN Blood Urea Nitrogen 9 mg/dL (7-18); Bicarbonate 30 mmol/L (21-32); Glucose Level 253 mg/dL (74-106); Potassium 4.2 mmol/L (3.5-5.1); Sodium Level 137 mmol/L (136-145)
[2020-11-20 10:34] LABS: ALT/SGPT 53 U/L (12-78); Alkaline Phosphatase 133 U/L (45-117); Bilirubin Direct 0.2 mg/dL (0-0.2); Bilirubin Total 0.4 mg/dL (0.2-1.0); Lipase 132 U/L (73-393); Magnesium 1.9 mg/dL (1.8-2.4); NT PRO-BNP 45 pg/mL (<125); Protein, Total 6.5 g/dL (6.4-8.2); Troponin (Emerg Dept Use Only) < 0.02 ng/mL (0.0-0.045)
--- NOTE | 2020-11-20 11:02 | EDPHYS ---
Physician Documentation [facility] Name: Dena Nance Age: 50 yrs Sex: Female : 1970 Arrival Date: 11/20/2020 Time: 08:25 Bed 4 Private MD: PENG Physician Ricardo Araiza HPI: 11/20 09:46 This 50 yrs old Female presents to ER via Ambulatory with complaints of tavo Epigastric Pain, Back Pain. 09:46 The patient presents with pain that is acute. The symptoms are located in the upper abd.tavo 09:47 The patient presents with abdominal pain in the epigastric area, in the upper abdomen, tavo abdominal distention in the upper abdomen, in the lower abdomen. Onset: The symptoms/episode began/occurred 2 day(s) ago. Onset: The symptoms/episode began/occurred 2 day(s) ago. The pain radiates to the lumbar area. Associated signs and symptoms: Pertinent positives: abdominal pain, nausea. The problem was sustained from unknown cause. Modifying factors: The patient symptoms are alleviated by nothing, the patient symptoms are aggravated by any movement, coughing, movement, standing. Severity of symptoms: At their worst the symptoms were mild, in the emergency department the symptoms are unchanged. 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 - Social history:: Smoking status: Patient denies any tobacco usage or history of. - Family history:: not pertinent. ROS: 09:47 Constitutional: Negative for fever, chills, and weight loss, Eyes: Negative for injury, tavo pain, redness, and discharge, ENT: Negative for injury, pain, and discharge, Neck: Negative for injury, pain, and swelling, Cardiovascular: Negative for chest pain, palpitations, and edema, Respiratory: Negative for shortness of breath, cough, wheezing, and pleuritic chest pain, Back: Negative for injury and pain, : Negative for injury, bleeding, discharge, and swelling, MS/Extremity: Negative for injury and deformity, Skin: Negative for injury, rash, and discoloration, Neuro: Negative for headache, weakness, numbness, tingling, and seizure, Psych: Negative for depression, anxiety, suicide ideation, homicidal ideation, and hallucinations, Allergy/Immunology: Negative for hives, rash, and allergies, Endocrine: Negative for neck swelling, polydipsia, polyuria, polyphagia, and marked weight changes, Hematologic/Lymphatic: Negative for swollen nodes, abnormal bleeding, and unusual bruising. 09:47 Abdomen/GI: Positive for abdominal pain, nausea, of the epigastric area, right upper quadrant and left upper quadrant. Exam: 09:47 Constitutional: This is a well developed, well nourished patient who is awake, alert, tavo and in no acute distress. Head/Face: Normocephalic, atraumatic. Eyes: Pupils equal round and reactive to light, extra-ocular motions intact. Lids and lashes normal. Conjunctiva and sclera are non-icteric and not injected. Cornea within normal limits. Periorbital areas with no swelling, redness, or edema. ENT: Nares patent. No nasal discharge, no septal abnormalities noted. Tympanic membranes are normal and external auditory canals are clear. Oropharynx with no redness, swelling, or masses, exudates, or evidence of obstruction, uvula midline. Mucous membranes moist. Neck: Trachea midline, no thyromegaly or masses palpated, and no cervical lymphadenopathy. Supple, full range of motion without nuchal rigidity, or vertebral point tenderness. No Meningismus. Chest/axilla: Normal chest wall appearance and motion. Nontender with no deformity. No lesions are appreciated. Cardiovascular: Regular rate and rhythm with a normal S1 and S2. No gallops, murmurs, or rubs. Normal PMI, no JVD. No pulse deficits. Respiratory: Lungs have equal breath sounds bilaterally, clear to auscultation and percussion. No rales, rhonchi or wheezes noted. No increased work of breathing, no retractions or nasal flaring. Back: No spinal tenderness. No costovertebral tenderness. Full range of motion. Female : Normal external genitalia. Skin: Warm, dry with normal turgor. Normal color with no rashes, no lesions, and no evidence of cellulitis. MS/ Extremity: Pulses equal, no cyanosis. Neurovascular intact. Full, normal range of motion. Neuro: Awake and alert, GCS 15, oriented to person, place, time, and situation. Cranial nerves II-XII grossly intact. Motor strength 5/5 in all extremities. Sensory grossly intact. Cerebellar exam normal. Normal gait. Psych: Awake, alert, with orientation to person, place and time. Behavior, mood, and affect are within normal limits. 09:47 Abdomen/GI: Inspection: abdomen appears normal, Bowel sounds: normal, Palpation: moderate abdominal tenderness, in the epigastric area, right upper quadrant and left upper quadrant, Liver: no appreciated palpable abnormalities, Hernia: not appreciated. 09:50 ECG was reviewed by the Attending Physician. [facility] Vital Signs: 08:35 BP 148 / 62; Pulse 94; Resp 16; Temp 98.3; Pulse Ox 97% on R/A; Weight 78.02 kg; Height ll1 5 ft. 4 in. (162.56 cm); Pain 10/10; 10:39 BP 136 / 54; Pulse 86; Resp 16 S; Pulse Ox 97% on R/A; jd3 11:30 BP 130 / 47; Pulse 86; Resp 17 S; Pulse Ox 96% on R/A; jd3 08:35 Body Mass Index 29.52 (78.02 kg, 162.56 cm) ll1 MDM: 08:43 Patient medically screened. [facility] 09:49 Differential diagnosis: Cholelithiasis chronic back pain, Obesity Peptic Ulcer tavo Pyelonephritis Cholelithiasis, diverticulitis, gastritis, Hepatitis, non-specific abd pain, pancreatitis, Perf. Duodenal Ulcer, Perf. Gastric Ulcer, Ureterolithiasis, urinary tract infection. Data reviewed: vital signs, nurses notes, lab test result(s), EKG, radiologic studies, CT scan, doppler, plain films. Data interpreted: night monitor: rate is 94 beats/min, rhythm is regular, Pulse oximetry: on room air. Test interpretation: by ED physician or midlevel provider: ECG, plain radiologic studies. Counseling: I had a detailed discussion with the patient and/or guardian regarding: the historical points, exam findings, and any diagnostic results supporting the discharge/admit diagnosis, lab results, radiology results. 11/20 08:42 Order name: Basic Metabolic Panel; Complete Time: 10:59 [facility] 11/20 08:42 Order name: CBC with Diff; Complete Time: 10:34 [facility] 11/20 08:42 Order name: LFT's; Complete Time: 10:59 [facility] 11/20 08:42 Order name: Magnesium; Complete Time: 10:59 [facility] 11/20 08:42 Order name: NT PRO-BNP; Complete Time: 10:59 11/20 08:42 Order name: PT-INR; Complete Time: 10:34 tavo 11/20 08:42 Order name: Troponin (emerg Dept Use Only); Complete Time: 10:59 [facility] 11/20 08:42 Order name: XRAY Chest (1 view) 11/20 08:42 Order name: Lipase; Complete Time: 10:59 [facility] 11/20 08:42 Order name: CT Abd/Pelvis - IV Contrast Only; Complete Time: 10:34 [facility] 11/20 10:36 Order name: SARS-COV-2 RT PCR; Complete Time: 10:59 [facility] 11/20 08:42 Order name: EKG; Complete Time: 08:44 [facility] 11/20 08:42 Order name: Cardiac monitoring; Complete Time: 08:55 [facility] 11/20 08:42 Order name: EKG - Nurse/Tech; Complete Time: 09:21 tavo 11/20 08:42 Order name: IV Saline Lock; Complete Time: 08:55 [facility] 11/20 08:42 Order name: Labs collected and sent; Complete Time: 08:55 [facility] 11/20 08:42 Order name: O2 Per Protocol; Complete Time: 08:55 11/20 08:42 Order name: O2 Sat Monitoring; Complete Time: 08:55 [facility] 11/20 09:13 Order name: Labs - recollect needed: recollect green top; Complete Time: 09:48 bd EC:50 Rate is 94 beats/min. Rhythm is regular. QRS [place] is Normal. [place] interval is normal. QRS tavo interval is normal. QT interval is normal. No Q waves. T waves are Normal. No ST changes noted. Clinical impression: Normal ECG and No evidence of ischemia. Interpreted by me. Reviewed by me. Administered Medications: 09:20 Drug: Zofran (Ondansetron) 4 mg Route: IVP; Site: left antecubital; jd3 09:21 Drug: NS 0.9% 1000 ml Route: IV; Rate: 1 bolus; Site: left antecubital; jd3 09:21 Drug: Pepcid (famotidine) 20 mg Route: IVP; Site: left antecubital; jd3 09:21 Drug: morphine 4 mg Route: IVP; Site: left antecubital; jd3 Disposition: 11/20/20 11:01 Discharged to Home. Impression: Abdominal tenderness, Functional dyspepsia, Type 1 diabetes mellitus. - Condition is Stable. - Discharge Instructions: Abdominal Pain, Adult, Nausea and Vomiting, Adult, Abdominal Pain, Adult, [id number], Type 1 Diabetes Mellitus, Diagnosis, Adult, [id number], Type 1 Diabetes Mellitus, Self Care, Adult, [id number]. - Prescriptions for Zofran ODT 4 mg Oral tablet,disintegrating - place 1 tablet by TRANSLINGUAL route every 8 hours for 7 days; 20 tablet. Bentyl 20 mg Oral Tablet - take 1 tablet by ORAL route every 6 hours As needed; 20 tablet. Protonix 40 mg Oral Tablet - take 1 tablet by ORAL route once daily; 30 tablet. - Medication Reconciliation Form, Thank You Letter, Antibiotic Education, Prescription Opioid Use, Work release form form. - Follow up: Private Physician; When: 2 - 3 days; Reason: Recheck today's complaints, Continuance of care, Re-evaluation by your physician. Follow up: Sixto Cortez MD; When: 2 - 3 days; Reason: Recheck today's complaints, Continuance of care, Re-evaluation by your physician. - Problem is new. - Symptoms have improved. Signatures: Dispatcher [employer] EDMS Corry Burch Corey, MD MD cha Davies, Jonathon, RN RN jd3 Delfin Young RN RN ll1 Corrections: (The following items were deleted from the chart) 09:52 08:44 CORONAVIRUS+MR.LAB.BRZ ordered. EDMS EDMS 10:04 09:47 Abdomen Limited+US.RAD.BRZ ordered. EDMS EDMS 11:02 11:01 11/20/2020 11:01 Discharged to Home. Impression: Abdominal tenderness; Functional tavo dyspepsia. Condition is Stable. Forms are Medication Reconciliation Form, Thank You Letter, Antibiotic Education, Prescription Opioid Use. Follow up: Private Physician; When: 2 - 3 days; Reason: Recheck today's complaints, Continuance of care, Re-evaluation by your physician. Follow up: Sixto Cortez; When: 2 - 3 days; Reason: Recheck today's complaints, Continuance of care, Re-evaluation by your physician. Problem is new. Symptoms have improved. [facility] 12:02 11:02 11/20/2020 11:01 Discharged to Home. Impression: Abdominal tenderness; Functional ll1 dyspepsia; Type 1 diabetes mellitus. Condition is Stable. Forms are Medication Reconciliation Form, Thank You Letter, Antibiotic Education, Prescription Opioid Use. Follow up: Private Physician; When: 2 - 3 days; Reason: Recheck today's complaints, Continuance of care, Re-evaluation by your physician. Follow up: Sixto Cortez; When: 2 - 3 days; Reason: Recheck today's complaints, Continuance of care, Re-evaluation by your physician. Problem is new. Symptoms have improved. tavo
--- NOTE | 2020-11-20 11:02 | ER ---
Nurse's Notes [facility] Name: Dena Nance Age: 50 yrs Sex: Female : 1970 Arrival Date: 11/20/2020 Time: 08:25 Bed 4 Private MD: Diagnosis: Abdominal tenderness;Functional dyspepsia;Type 1 diabetes mellitus Presentation: 11/20 08:35 Coronavirus screen: Client denies travel out of the [place] in the last 14 days. At this ll1 time, the client does not indicate any symptoms associated with coronavirus-19. Ebola Screen: Patient denies travel to an Ebola-affected area in the 21 days before illness onset. Initial Sepsis Screen: Does the patient meet any 2 criteria? HR > 90 bpm. No. Patient's initial sepsis screen is negative. Does the patient have a suspected source of infection? Yes: Acute abdominal pain. Risk Assessment: Do you want to hurt yourself or someone else? Patient reports no desire to harm self or others. Onset of symptoms was November 20, 2020. 08:35 Method Of Arrival: Ambulatory ll1 08:35 Acuity: MARIANA 3 ll1 09:24 Chief complaint: Patient states: "epigastric/chest pain and I did not want to wait on jd3 my doctor. he had scheduled a scan and tests, but this morning my pain got so bad I was sweating.". 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 - Social history:: Smoking status: Patient denies any tobacco usage or history of. - Family history:: not pertinent. Screenin:23 Abuse screen: Denies threats or abuse. Nutritional screening: No deficits noted. jd3 Tuberculosis screening: No symptoms or risk factors identified. Fall Risk Ambulatory Aid- None/Bed Rest/Nurse Assist (0 pts). Gait- Normal/Bed Rest/Wheelchair (0 pts) Mental Status- Oriented to own ability (0 pts). Total Scott Fall Scale indicates No Risk (0-24 pts). Assessment: 09:22 General: Appears in no apparent distress. comfortable, Behavior is calm, cooperative, jd3 appropriate for age. Pain: Complains of pain in epigastric area Quality of pain is described as sharp, shooting. Neuro: Level of Consciousness is awake, alert, obeys commands, Oriented to person, place, time, situation. Cardiovascular: Reports chest pain, Capillary refill < 3 seconds Patient's skin is warm and dry. Rhythm is regular. Respiratory: Airway is patent Respiratory effort is even, unlabored, Respiratory pattern is regular, symmetrical, Denies cough, shortness of breath. GI: Abdomen is round non-distended, Abd is soft and non tender X 4 quads. Reports upper abdominal pain, epigastric pain, nausea. : No signs and/or symptoms were reported regarding the genitourinary system. EENT: No signs and/or symptoms were reported regarding the EENT system. Derm: Skin is intact, Skin is dry, Skin is normal, Skin temperature is warm. Musculoskeletal: Circulation, motion, and sensation intact. Range of motion: intact in all extremities. 10:39 Reassessment: Patient appears in no apparent distress at this time. No changes from jd3 previously documented assessment. Patient and/or family updated on plan of care and expected duration. Pain level reassessed. Patient is alert, oriented x 3, equal unlabored respirations, skin warm/dry/pink. 11:40 Reassessment: Patient appears in no apparent distress at this time. Patient and/or jd3 family updated on plan of care and expected duration. Pain level reassessed. Patient is alert, oriented x 3, equal unlabored respirations, skin warm/dry/pink. Vital Signs: 08:35 BP 148 / 62; Pulse 94; Resp 16; Temp 98.3; Pulse Ox 97% on R/A; Weight 78.02 kg; Height ll1 5 ft. 4 in. (162.56 cm); Pain 10/10; 10:39 BP 136 / 54; Pulse 86; Resp 16 S; Pulse Ox 97% on R/A; jd3 11:30 BP 130 / 47; Pulse 86; Resp 17 S; Pulse Ox 96% on R/A; jd3 08:35 Body Mass Index 29.52 (78.02 kg, 162.56 cm) ll1 ED Course: 08:25 Patient arrived in ED. bp1 08:34 Arm band placed on Patient placed in an exam room, on a stretcher. ll1 08:36 Triage completed. ll1 08:39 Ricardo Araiza MD is Attending Physician. tavo 08:47 Jin Gonzalez, RN is Primary Nurse. jd3 08:54 Inserted saline lock: 20 gauge in left antecubital area, using aseptic technique. Blood mt collected. 09:06 CT Abd/Pelvis - IV Contrast Only In Process Unspecified. EDMS 09:23 Patient has correct armband on for positive identification. Placed in gown. Bed in low jd3 position. Call light in reach. Side rails up X 1. satellite project site monitor on. Pulse ox on. NIBP on. 09:42 XRAY Chest (1 view) In Process Unspecified. EDMS 11:01 Sixto Cortez MD is Referral Physician. tavo 11:40 IV discontinued, intact, bleeding controlled, No redness/swelling at site. Pressure jd3 dressing applied. 11:48 No provider procedures requiring assistance completed. jd3 Administered Medications: 09:20 Drug: Zofran (Ondansetron) 4 mg Route: IVP; Site: left antecubital; jd3 09:21 Drug: NS 0.9% 1000 ml Route: IV; Rate: 1 bolus; Site: left antecubital; jd3 09:21 Drug: Pepcid (famotidine) 20 mg Route: IVP; Site: left antecubital; jd3 09:21 Drug: morphine 4 mg Route: IVP; Site: left antecubital; jd3 Outcome: 11:01 Discharge ordered by . tavo 11:40 Discharged to home ambulatory, with family. jd3 11:40 Condition: stable 11:40 Discharge instructions given to patient, Instructed on discharge instructions, follow up and referral plans. medication usage, Demonstrated understanding of instructions, follow-up care, medications, Prescriptions given X 3. 12:02 Patient left the ED. ll1 Signatures: Dispatcher [employer] EDMI Ricardo Araiza MD MD cha Thompson, Moriah mt Davies, Jonathon, Delfin Neal RN, RN RN ll1 Pauly Silveira bp1
--- NOTE | 2020-11-20 11:20 | RAD REPORT ---
EXAM DESCRIPTION: RAD - Chest Single View - 11/20/2020 9:42 am CLINICAL HISTORY: ABDOMINAL DISTENTION COMPARISON: September 21 TECHNIQUE: AP portable chest image was obtained 11/20/2020 9:42 am . FINDINGS: No new mass or consolidation. Interstitial pattern is not clearly different from compariso n. Lower lung volumes accentuate the interstitial pattern. Heart and vasculature are normal. No measu rable pleural effusion and no pneumothorax. No acute bony abnormality seen. No acute aortic findings suspected. IMPRESSION: No acute cardiopulmonary process. No significant change from comparison study.
[2020-11-20 12:21] VITALS: TEMP 98.3; O2SAT 97
[2020-11-20 12:23] VITALS: BP 136/54
--- NOTE | 2020-11-21 11:35 | EKG ---
Test Date: 2020-11-20 Test Time: 09:14:00 Account Services Associate: MARCY MEASUREMENT RESULTS: Intervals: Rate: 94 [place]: 206 QRSD: 80 QT: 284 QTc: 355 [place]: P: 72 KS: 206 QRS: 50 T: 24 INTERPRETIVE STATEMENTS: Normal sinus rhythm Normal ECG Compared to ECG 09/21/2020 16:40:29 No significant changes Electronically Signed On 11-21-20 11:31:25 CDT by Jeff Rapp
== END 2020-11-20 12:02 | disposition home or self-care (01) ==
LOC: ER 08:24
DX: K30 Functional dyspepsia (principal); E10.9 Type 1 diabetes mellitus without complications; Z20.822 Contact with and (suspected) exposure to COVID-19
CPT/HCPCS: 93005; 85025; 80048; 36415; 83735; 85610; 82565; 80076; 84484; 83690; 83880; 74177; 71045; 96375; 96374; 99284; U0003; Q9966; J7030; J2405

== ENCOUNTER 2021-01-23 14:57 | Emergency (ER) | payer OTHER ==
--- OUTSIDE RECORDS SUMMARY | 2021-01-23 15:00 | XMS REPORT | Continuity of Care Document ---
:1970 Author Organization [facility] t Address [facility] Chang [address] [place] [id number] Care Team Providers Name Role Phone Sharpless Primary Care Physician AIDA VELÁSQUEZ Attending Clinician Unavailable Problems This patient has no known problems. Allergies, Adverse Reactions, Alerts This patient has no known allergies or adverse reactions. Social History Social Habit Start Date Stop Date Quantity Comments Source Sex Assigned At [facility] Tobacco use and 2017-05-09 2017-05-09 Never used [facility] - exposure 00:00:00 00:00:00 [facility] Smoking Status Start Date Stop Date Source Never smoker [facility] Medications Ordered Filled Start Stop Current [...] 10:01: daily. Medi michele 10 mg 13 [place] tablet sertraline 2016-06 Yes 50mg QD Take [address] (ZOLOFT) 50 -10 by mouth [facility] - MG tablet 10:01: daily. Medica l 13 [place] metFORMIN 2016-06 Yes 500mg Take 500 [facility] [...] HCl HCl with a [facility] - meal [facility] Immunizations Ordered Filled Immunization Date Status Comments [facility] e Immunization Name Name Flucelvax - Flucelvax - 2019-03-[address] [facility] - multidose vial multidose vial 00:00:00 [facility] Procedures This patient has no known procedures. Encounters Start End Encounter Admission Attending Care Care Encounter Source Date/Time Date/Time Type Type Clinicians Facility Department ID 2021-01-03 2021-01-03 [facility] [id number] [facility] 2021-01-02 2021-01-02 [facility] [id number] [facility] 2020-12-04 2020-12-[address] [id number] [facility] 2020-11-16 2020-11-16 [facility] [id number] [facility] 2020-11-06 2020-11-06 [facility] [id number] [facility] 2020-10-03 2020-10-03 [facility] [id number] [facility] 2020-09-28 2020-09-28 [facility] [id number] [facility] 2020-08-24 2020-08-24 [facility] [id number] [facility] 2020-08-17 2020-08-17 [facility] [id number] [facility] 2020-08-11 2020-08-11 Out[facility] [id number] [facility] 2020-08-03 2020-08-03 [facility] [id number] [facility] 2020-07-31 2020-07-31 [facility] [id number] [facility] 2020-06-26 2020-06-26 Out[facility] [id number] [facility] 2020-06-15 2020-06-15 Out[facility] [id number] [facility] 2020-06-14 2020-06-14 Out[facility] [id number] [facility] 2020-06-12 2020-06-12 Out[facility] [id number] [facility] 2020-06-01 2020-06-01 Out[facility] [id number] [facility] 2020-05-29 2020-05-29 Out[facility] [id number] [facility] 2020-05-08 2020-05-08 Out[facility] [id number] [facility] 2020-05-04 2020-05-04 Outpatient [facility] [id number] [facility] 2020-04-24 2020-04-24 Out[facility] [id number] [facility] 2020-04-20 2020-04-20 Out[facility] [id number] [facility] 2020-04-19 2020-04-19 Outpatient [facility] [id number] [facility] 2020-04-18 2020-04-18 Outpatient [facility] [id number] [facility] 2020-04-17 2020-04-17 Out[facility] [id number] [facility] 2020-04-11 2020-04-11 Outpatient [id number] [facility] 09:07:00 09:07:00 2020-01-26 2020-01-26 [facility] [id number] [facility] 14:36:00 14:36:00 [employer] s - Drive [facility] Family [facility] l Medicine Outpati ent Clinics 2020-01-24 2020-01-24 [facility] [id number] 13:45:00 13:45:00 [employer] s - Drive [facility] Family Medicine l Medicine Outpati ent Clinics 2020-01-19 2020-01-19 [facility] [id number] 08:40:00 08:40:00 [employer] s - Drive [facility] Family Medicine l Medicine Outpati ent Clinics 2020-01-18 2020-01-18 [facility] [id number] 15:20:00 15:20:00 t [employer] s - Drive [facility] Medicine l Medicine Outpati ent Clinics 2020 2020 [facility] [id number] 14:44:00 14:44:00 [employer] [facility] Medicine l Medicine Outpati ent Clinics 2020 2020 [facility] [id number] 09:39:00 09:39:00 [employer] [facility] l Medicine Outpati ent Clinics 2019-12-24 2019-12-24 [facility] [id number] 17:41:00 17:41:00 [employer] [facility] Medicine l Medicine Outpati ent Clinics 2019-12-21 2019-12-21 [facility] [id number] 09:20:00 09:20:00 t documistic s [employer] [facility] Medicine l Medicine Outpati ent Clinics 2019-10-27 2019-10-27 [facility] [id number] [facility] 14:08:00 14:08:00 [employer] [facility] Medicine l Medicine Outpati ent Clinics 2019-10-13 2019-10-13 [facility] [id number] 11:40:00 11:40:00 t [employer] [facility] Medicine l Medicine Outpati ent Clinics 2019-10-04 2019-10-04 [facility] [id number] [facility] 08:00:00 08:00:00 t documistic s [employer] [facility] Medicine Outpati ent Clinics 2019-08-26 2019-08-26 [facility] [id number] 09:30:00 09:30:00 [employer] [facility] Medicine l Medicine Outpati ent Clinics 2019-08-25 2019-08-25 [facility] [id number] 11:51:00 11:51:00 [employer] [facility] Medicine Outpati ent Clinics 2019-08-24 2019-08-24 [facility] [id number] [facility] 14:40:00 14:40:00 t [employer] [facility] Medicine l Medicine Outpati ent Clinics 2019-08-17 2019-08-17 [facility] [id number] 11:59:00 11:59:00 t [employer] Luke s - Drive [facility] Medicine l Medicine Outpati ent Clinics 2019-07-05 2019-07-05 [facility] [id number] 16:00:00 16:00:00 t [employer] s - Drive [facility] l Medicine Outpati ent Clinics 2019-06-22 2019-06-22 [facility] [id number] 11:53:00 11:53:00 t [employer] s - Drive [facility] Medicine Outpati ent Clinics 2019-06-22 2019-06-22 [facility] [id number] 10:22:00 10:22:00 t [employer] s - Drive [facility] Medicine Outpati ent Clinics 2019-05-24 2019-05-24 [facility] [id number] 10:00:00 10:00:00 t [employer] s - Drive [facility] Medicine l Medicine Outpati ent Clinics 2019-05-05 2019-05-05 [facility] [id number] 15:44:00 15:44:00 [employer] s - Drive [facility] l Medicine Outpati ent Clinics 2019-05-04 2019-05-04 [facility] [id number] 15:20:00 15:20:00 t [employer] s - Drive [facility] Medicine l Medicine Outpati ent Clinics 2019-04-27 2019-04-27 [facility] [id number] 17:18:00 17:18:00 t [employer] s - Drive [facility] l Medicine Outpati ent Clinics 2019-04-26 2019-04-26 [facility] [id number] 17:24:00 17:24:00 t [employer] s - Drive [facility] Medicine Outpati ent Clinics 2019-04-20 2019-04-20 [facility] [id number] [facility] 08:27:00 08:27:00 [facility] 2019-04-12 2019-04-12 Outpatient Jam Rivera [id number] [facility] 11:00:00 11:00:00 [facility] 2019-03-30 2019-03-30 Outpatient Jam Rivera [id number] 14:00:00 14:00:00 [facility] Results Test Description Test Time Test Comments Results Result Sourc e Comments MM, STEREOTACTIC 2017-04-30 Reason for Addendum BeginsMRN#: BIOPSY, BREAST, 5 Exam:->calcificati [id number]: LEFT 15:59:00 on 05/14/2017 Lizzette Velásquez M.D. 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 Addendum EndsMRN#: [id number] - MM, STEREOTACTIC BIOPSY, BREAST, LEFTSTEREOTACTIC GUIDED [...] correct location, five specimens were obtained using Procura device. A clip was inserted into the [...] calcifications. Lizzette Velásquez M.D. pth/penrad:05/09/2017 11:07:57 Production Mechanic: Felicia Rizzo RT(R)(M), Pending sale to [facility] [id number] UE EXAM 2017-04-30 Surgical Pathology 3 Report 12:48:00 Case: [id number] Authorizing Provider: Lizzette Velásquez MD Collected: 05/09/2017 1110 Ordering Location: [facility] Received: 05/09/2017 1312 Pathologist: Jackie Maradiaga MD Specimen: Breast, Left, LEFT MIDDLE 12 BREAST CALCIFICATION BREAST, LEFT, MIDDLE 12 O'CLOCK, CALCIFICATIONS, STEREOTACTIC CORE NEEDLE BIOPSY: - HYALINIZED FIBROADENOMA - COLUMNAR CELL HYPERPLASIA - COLUMNAR CELL CHANGES - MICROCALCIFICATIONS, COARSE, ASSOCIATED WITH FIBROADENOMA Signing Pathologist Direct Phone Line: [phone] ally signed by Jackie Maradiaga MD on 05/12/2017 at 12:48 PMIn the sections examined, no atypical hyperplasia or carcinoma is identified.[id number] sing lesion Left middle 12 o'clock breast calcifications The specimen is received in a formalin-filled container labeled with the patient's information and labeled "left middle 12 o'clock breast calcifications" and consists of multiple yellow-white breast core biopsies ranging in length from 0.6 to 2.5 cm.Ink code: Black.The specimen is submitted entirely in A1 and A2. CG/ewPerformed.[facility], Department of Pathology, [address] [place] [address], [place] [address], MM, DIGITAL, 2017-04-30 Left breast MRN#: UNILATERAL, 0 calcifications [id number] - CONFER MARTA, 11:07:00 MM, DIGITAL, MAMMO, [...] results. Lizzette Velásquez M.D. pth/:05/09/2017 11:07:15 Production Mechanic: Felicia SCHNEIDER)(Phil), Pending sale to [facility] Mammogram BI-RADS: Post-procedure mammogram for marker placement [id number] , MAMMO, 2017-04-30 Reason for MRN#: SPECIMEN, 0 exam:->Left breast [id number] - RADIOGRAPH, LEFT 11:06:00 calcifications MM, MAMMO, SPECIMEN, RADIOGRAPH, LEFTSPECIMEN LEFT BREAST: 05/09/2017Five stereotactic guided biopsy specimens were imaged for the area of calcifications located in the left breast at 12 o'clock middle depth. IMPRESSION: SPECIMENThe imaged specimens includes the calcifications. Lizzette Velásquez M.D. pth/:05/09/2017 11:06:40 Production Mechanic: Felicia SCHNEIDER)(M), Pending sale to [facility] [id number]
--- NOTE | 2021-01-23 16:07 | RAD REPORT ---
EXAM DESCRIPTION: RAD - Chest Single View - 01/23/2021 4:01 pm CLINICAL HISTORY: SOB Chest pain. COMPARISON: Chest Single View dated 11/20/2020; Chest Single View dated 09/21/2020; Chest Single View dated 08/06/2020; Chest Pa And Lat (2 Views) dated 08/02/2020 FINDINGS: Portable technique limits examination quality. The lungs are grossly clear. The heart is normal in size. No displaced fractures. IMPRESSION: No acute intrathoracic process suspected.
[2021-01-23] MEDS ORDERED: IPRATROPIUM BROM 0.5MG/2.5ML ONE (16:20)
[2021-01-23] MEDS ORDERED: ALBUTEROL 2.5 MG/3 ML NEB SOL ONE (16:20)
[2021-01-23 16:23] LABS: Absolute Lymphocytes (CBC) 1.8 K/uL (0.7-4.9); Hematocrit 35.7 % (36.0-45.0); Lymphocytes % 24.1 % (15.3-44.8); MPV 9.6 fL (7.6-11.3)
[2021-01-23 16:25] LABS: Protime INR 1.1
[2021-01-23 16:39] LABS: ALT/SGPT 54 U/L (12-78); AST/SGOT 45 U/L (15-37); Albumin 3.5 g/dL (3.4-5.0); Alkaline Phosphatase 110 U/L (45-117); BUN Blood Urea Nitrogen 9 mg/dL (7-18); Bicarbonate 32 mmol/L (21-32); Bilirubin Direct 0.2 mg/dL (0-0.2); Bilirubin Total 0.4 mg/dL (0.2-1.0); Glucose Level 149 mg/dL (74-106); Magnesium 1.7 mg/dL (1.8-2.4); NT PRO-BNP 18 pg/mL (<125); Potassium 3.6 mmol/L (3.5-5.1); Protein, Total 7.6 g/dL (6.4-8.2); Sodium Level 138 mmol/L (136-145); Troponin (Emerg Dept Use Only) < 0.02 ng/mL (0.0-0.045)
[2021-01-23 17:19] LABS: SARS-COV-2 RT PCR NEGATIVE (NEGATIVE)
--- NOTE | 2021-01-23 18:18 | RAD REPORT ---
EXAM DESCRIPTION: CT - Soft Tissue Neck W/Contr CLINICAL HISTORY: neck pain;Sore throat Neck pain and soreness. COMPARISON: Head C Spine Mpr Wo Con dated 04/04/2020; C Spine Wo Con dated 03/15/[address] scans are performed using dose optimization technique as appropriate and may includ e automated exposure control or mA/KV adjustment according to patient size. FINDINGS: Nasopharyngeal tissues are normal in appearance. Fossa Rosenmller are normal. No evidence of peritonsillar abscess. No prevertebral fluid or abscess present. Salivary glands are symmetric. No bulky adenopathy seen in the neck. IMPRESSION: No acute process identified.
[2021-01-23] MEDS ORDERED: MAGNESIUM SULFATE 1 gm IVPB 1 GM/100 ML BAG IV ONE (18:54)
--- NOTE | 2021-01-23 18:56 | ER ---
Nurse's Notes [facility] Name: Dena Nance Age: 51 yrs Sex: Female : 1970 Arrival Date: 01/23/2021 Time: 14:58 Bed 14 Private MD: Diagnosis: Cervicalgia;Shortness of breath Presentation: 01/23 15:07 Chief complaint: Patient states: Both sides of pt neck hurting x 3 months had kg ultrasound down last week hasn't received results and pain is worse. SOB and nausea starting today. Denies Fever, diarrhea, vomiting. Coronavirus screen: Client denies travel out of the [place] in the last 14 days. At this time, unable to obtain information related to travel outside the [place] Client presents with at least one sign or symptom that may indicate coronavirus-19. Standard/surgical mask placed on the client. Provider contacted for isolation considerations. Ebola Screen: Patient negative for fever greater than or equal to 101.5 degrees Fahrenheit, and additional compatible Ebola Virus Disease symptoms Patient denies exposure to infectious person. Patient denies travel to an Ebola-affected area in the 21 days before illness onset. No symptoms or risks identified at this time. Initial Sepsis Screen: Does the patient meet any 2 criteria? No. Patient's initial sepsis screen is negative. Does the patient have a suspected source of infection? No. Patient's initial sepsis screen is negative. Risk Assessment: Do you want to hurt yourself or someone else? Patient reports no desire to harm self or others. Onset of symptoms was January 23, 2021. 15:07 Method Of Arrival: Ambulatory kg 15:07 Acuity: MARIANA 3 kg Triage Assessment: 15:10 General: Appears in no apparent distress. Behavior is calm, cooperative, appropriate kg for age, quiet. Pain: Complains of pain in neck Pain currently is 8 out of 10 on a pain scale. at worst was 8 out of 10 on a pain scale. level that patient reports is acceptable is 3 out of 10 on a pain scale. Quality of pain is described as Soreness Pain began 3 months ago. VP SCIENTIFIC: 15:15 LMP N/A - Hysterectomy kg Historical: - Allergies: 15:10 NKA; kg - Home Meds: 15:10 dicyclomine 20 mg Oral tab 4 times per day [Active]; trazodone 50 mg Oral tab 2 times kg per day [Active]; Toujeo SoloStar subcutaneous [Active]; sertraline 50 mg Oral tab 1 tab once daily [Active]; omeprazole 40 mg Oral cpDR once daily [Active]; metformin 1,000 mg Oral tab 2 times per day [Active]; meloxicam 7.5 mg Oral tab twice a day [Active]; lovastatin 40 mg Oral tab 1 tab once daily [Active]; glimepiride 4 mg Oral tab twice a day [Active]; gabapentin 300 mg Oral cap 3 times per day [Active]; - PMHx: 15:10 Pancreatitis; fatty liver; Diverticulitis; Diabetes - NIDDM; Diabetes - IDDM; colitis; kg Gastritis; - PSHx: 15:10 Cholecystectomy; Hysterectomy; kg - Immunization history:: Adult Immunizations up to date, Client reports receiving the 2nd dose of the Covid vaccine. - Social history:: Smoking status: Patient denies any tobacco usage or history of. Screenin:15 Abuse screen: Denies threats or abuse. Denies injuries from another. Nutritional kg screening: No deficits noted. Tuberculosis screening: No symptoms or risk factors identified. Fall Risk None identified. No fall in past 12 months (0 pts). No secondary diagnosis (0 pts). No IV (0 pts). Ambulatory Aid- None/Bed Rest/Nurse Assist (0 pts). Gait- Normal/Bed Rest/Wheelchair (0 pts) Mental Status- Oriented to own ability (0 pts). Total Scott Fall Scale indicates No Risk (0-24 pts). Assessment: 15:38 General: Appears ill, Behavior is calm, cooperative, appropriate for age. Pain: ll1 Complains of pain in neck Quality of pain is described as aching, Aggravated by increased activity. Neuro: Level of Consciousness is awake, alert, obeys commands, Oriented to person, place, time, situation, Appropriate for age Databases Software Consultant are equal bilaterally Moves all extremities. Full function Gait is steady, Speech is normal, Facial symmetry appears normal, Reports headache. 15:38 Respiratory: Reports shortness of breath Airway is patent Trachea midline Respiratory ll1 effort is even, unlabored, Respiratory pattern is regular, symmetrical, Breath sounds are clear bilaterally. the patient has mild shortness of breath Denies shortness of breath at rest. GI: Abdomen is flat, Bowel sounds present X 4 quads. Reports nausea. 16:30 Reassessment: No changes from previously documented assessment. Patient and/or family ll1 updated on plan of care and expected duration. Pain level reassessed. Patient is alert, oriented x 3, equal unlabored respirations, skin warm/dry/pink. 17:30 Reassessment: No changes from previously documented assessment. Patient and/or family ll1 updated on plan of care and expected duration. Pain level reassessed. 18:30 Reassessment: No changes from previously documented assessment. Patient and/or family ll1 updated on plan of care and expected duration. Pain level reassessed. Patient is alert, oriented x 3, equal unlabored respirations, skin warm/dry/pink. 19:20 Reassessment: Patient appears in no apparent distress at this time. Patient and/or ad5 family updated on plan of care and expected duration. Pain level reassessed. Patient is alert, oriented x 3, equal unlabored respirations, skin warm/dry/pink. Vital Signs: 15:07 BP 118 / 55; Pulse 89; Resp 20; Temp 98.3(TE); Pulse Ox 98% on R/A; Weight 72.8 kg; kg Height 5 ft. 4 in. (162.56 cm); Pain 8/10; 16:47 BP 110 / 53; Pulse 84; Resp 19; Pulse Ox 100% on R/A; ll1 18:44 BP 115 / 48; Pulse 84; Resp 19; Pulse Ox 100% ; ll1 19:41 BP 111 / 45; Pulse 85; Resp 16 S; Pulse Ox 100% on R/A; ad5 15:07 Body Mass Index 27.55 (72.80 kg, 162.56 cm) kg ED Course: 14:58 Patient arrived in ED. as 15:10 Triage completed. kg 15:15 Arm band placed on right wrist. kg 15:36 Ricardo Ramirez PA is PHCP. cp 15:36 Roberto Alejo MD is Attending Physician. cp 15:36 Delfin Young, SHADE is Primary Nurse. ll1 16:01 XRAY Chest (1 view) In Process Unspecified. EDMS 17:28 CT Soft Tissue Neck W/contr In Process Unspecified. EDMS 18:44 Patient has correct armband on for positive identification. Bed in low position. Call ll1 light in reach. Side rails up X 1. Pulse ox on. NIBP on. 19:42 No provider procedures requiring assistance completed. IV discontinued, intact, ad5 bleeding controlled, No redness/swelling at site. Pressure dressing applied. Administered Medications: 16:16 Drug: Albuterol 2.5 mg Route: Inhalation; ll1 18:33 Follow up: Response: No adverse reaction ll1 16:16 Drug: AtroVENT (ipratropium) Aerosol 0.5 mg Route: Inhalation; ll1 18:33 Follow up: Response: No adverse reaction ll1 18:43 Drug: Magnesium Sulfate 1 grams Route: IVPB; Infused Over: 1 hrs; Site: left ll1 antecubital; 19:43 Follow up: Response: No adverse reaction; IV Status: Completed infusion ad5 Outcome: 18:56 Discharge ordered by MD. cp 19:42 Discharged to home ambulatory. ad5 19:42 Condition: stable 19:42 Discharge instructions given to patient, Instructed on discharge instructions, follow up and referral plans. medication usage, Demonstrated understanding of instructions, follow-up care, medications, Prescriptions given X 3. 19:42 Patient left the ED. ad5 Signatures: Dispatcher [employer] EDMS Myranda Farris Corey, PA PA cp Delfin Young RN RN [facility] Tierney Desai RN RN kg Rick Hernadez ad5 Corrections: (The following items were deleted from the chart) 16:50 15:38 Neuro: Level of Consciousness is awake, alert, obeys commands, Oriented to ll1 person, place, time, situation, Appropriate for age Databases Software Consultant are equal bilaterally Moves all extremities. Full function Gait is steady, Speech is normal, Facial symmetry appears normal, Reports headache ll1 18:43 18:43 Magnesium Sulfate 1 grams IVPB in right antecubital over 1 hrs ll1 ll1
--- NOTE | 2021-01-23 18:56 | EDPHYS ---
Physician Documentation [facility] Name: Dena Nance Age: 51 yrs Sex: Female : 1970 Arrival Date: 01/23/2021 Time: 14:58 Bed 14 Private MD: ED Physician Roberto Alejo HPI: 01/23 15:45 This 51 yrs old Female presents to ER via Ambulatory with complaints of Neck cp Pain, <24hrs Old, Shortness Of Breath. 15:45 The patient or guardian complains of pain, that is chronic. cp 15:45 The symptoms are located on the right lateral side of neck. Onset: The symptoms/episode cp began/occurred 3 month(s) ago. 15:45 Context: The neck injury/problem resulted from from unknown cause. cp 15:45 Associated signs and symptoms: Pertinent positives: shortness of breath, Pertinent cp negatives: fever, headache, numbness, weakness, chest pain, abdominal pain. 15:45 The pain does not radiate. 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 kg Historical: - Allergies: 15:10 NKA; kg - Home Meds: 15:10 dicyclomine 20 mg Oral tab 4 times per day [Active]; trazodone 50 mg Oral tab 2 times kg per day [Active]; Toujeo SoloStar subcutaneous [Active]; sertraline 50 mg Oral tab 1 tab once daily [Active]; omeprazole 40 mg Oral cpDR once daily [Active]; metformin 1,000 mg Oral tab 2 times per day [Active]; meloxicam 7.5 mg Oral tab twice a day [Active]; lovastatin 40 mg Oral tab 1 tab once daily [Active]; glimepiride 4 mg Oral tab twice a day [Active]; gabapentin 300 mg Oral cap 3 times per day [Active]; - PMHx: 15:10 Pancreatitis; fatty liver; Diverticulitis; Diabetes - NIDDM; Diabetes - IDDM; colitis; kg Gastritis; - PSHx: 15:10 Cholecystectomy; Hysterectomy; kg - Immunization history:: Adult Immunizations up to date, Client reports receiving the 2nd dose of the Covid vaccine. - Social history:: Smoking status: Patient denies any tobacco usage or history of. ROS: 15:55 Eyes: Negative for injury, pain, redness, and discharge. cp 15:55 Constitutional: Negative for body aches, chills, fever, poor PO intake. 15:55 Neck: Positive for pain with movement, pain at rest, tenderness, of the right lateral neck. 15:55 Cardiovascular: Negative for chest pain, edema, palpitations. 15:55 Respiratory: Positive for shortness of breath, Negative for cough, wheezing. 15:55 Abdomen/GI: Positive for nausea, Negative for abdominal pain, vomiting, diarrhea, constipation. 15:55 Back: Negative for pain at rest, pain with movement. 15:55 : Negative for urinary symptoms. 15:55 Skin: Negative for rash. 15:55 Neuro: Negative for altered mental status, headache, numbness, weakness. 15:55 All other systems are negative. Exam: 16:00 Constitutional: The patient appears in no acute distress, alert, awake, cp non-diaphoretic, non-toxic, well developed, well nourished. 16:00 Head/Face: Normocephalic, atraumatic. cp 16:00 Eyes: Periorbital structures: appear normal, Conjunctiva: normal, no exudate, no injection, Sclera: no appreciated abnormality, Lids and lashes: appear normal, bilaterally. 16:00 ENT: External ear(s): are unremarkable, Ear canal(s): are normal, clear, TM's: dullness, bilaterally, Nose: is normal, Mouth: Lips: moist, Oral mucosa: pink and intact, moist, Posterior pharynx: is normal, airway is patent, no erythema, no exudate. 16:00 Neck: External neck: swelling, is not appreciated, tenderness, that is moderate, right lateral neck, ROM/movement: limited range of motion, is not appreciated, Meningeal signs: are not present. 16:00 Chest/axilla: Inspection: normal, Palpation: is normal, no crepitus, no tenderness. 16:00 Cardiovascular: Rate: normal, Rhythm: regular, Edema: is not appreciated, JVD: is not appreciated. 16:00 Respiratory: the patient does not display signs of respiratory distress, Respirations: normal, no use of accessory muscles, no retractions, labored breathing, is not present, Breath sounds: are clear throughout, no decreased breath sounds, no stridor, no wheezing. 16:00 Abdomen/GI: Exam negative for discomfort, distension, guarding, Inspection: abdomen appears normal. 16:00 Back: pain, is absent, ROM is normal. 16:00 Skin: no rash present. 16:00 Neuro: Orientation: to person, place \T\ time. Mentation: is normal, Cerebellar function: is grossly normal, Motor: moves all fours, strength is normal, Sensation: is normal. Vital Signs: 15:07 BP 118 / 55; Pulse 89; Resp 20; Temp 98.3(TE); Pulse Ox 98% on R/A; Weight 72.8 kg; kg Height 5 ft. 4 in. (162.56 cm); Pain 8/10; 16:47 BP 110 / 53; Pulse 84; Resp 19; Pulse Ox 100% on R/A; ll1 18:44 BP 115 / 48; Pulse 84; Resp 19; Pulse Ox 100% ; ll1 19:41 BP 111 / 45; Pulse 85; Resp 16 S; Pulse Ox 100% on R/A; ad5 15:07 Body Mass Index 27.55 (72.80 kg, 162.56 cm) kg MDM: 01/22 16:00 Differential diagnosis: Cervical Disc Herniation cervical strain, fracture, Spinal Cord cp Compression Spondylolisthesis torticollis. 01/23 15:38 Patient medically screened. cp 18:55 Data reviewed: vital signs, nurses notes, lab test result(s), EKG, radiologic studies, cp CT scan, plain films. 18:55 Test interpretation: by ED physician or midlevel provider: ECG, plain radiologic cp studies. Counseling: I had a detailed discussion with the patient and/or guardian regarding: the historical points, exam findings, and any diagnostic results supporting the discharge/admit diagnosis, lab results, radiology results, to return to the emergency department if symptoms worsen or persist or if there are any questions or concerns that arise at home. Response to treatment: the patient's symptoms have mildly improved after treatment, and as a result, I will discharge patient. 01/23 15:15 Order name: Flu ss 01/23 15:46 Order name: Basic Metabolic Panel cp 01/23 15:46 Order name: CBC with Diff cp 01/23 15:46 Order name: LFT's cp 01/23 15:46 Order name: Magnesium cp 01/23 15:46 Order name: NT PRO-BNP 01/23 15:46 Order name: PT-INR; Complete Time: 18:23 cp 01/23 18:24 Interpretation: Abnormal: PT 12.7. cp 01/23 15:46 Order name: Troponin (emerg Dept Use Only); Complete Time: 18:23 01/23 15:46 Order name: [place] Screen Profile; Complete Time: 18:23 01/23 15:47 Order name: Basic Metabolic Panel; Complete Time: 18:23 EDMS 01/23 18:24 Interpretation: Normal except: GLUC 149; GFR 89; CA 8.4. cp 01/23 15:47 Order name: CBC with Automated Diff; Complete Time: 18:23 EDMS 01/23 18:24 Interpretation: Normal except: HGB 11.6; HCT 35.7; MCH 26.5; PLT 106; RDW 17.7. 01/23 15:47 Order name: Liver (Hepatic) Function; Complete Time: 18:23 EDMS 01/23 18:41 Interpretation: Normal except: AST 45; GLOB 4.1; A/G 0.9. 01/23 15:46 Order name: XRAY Chest (1 view); Complete Time: 16:09 01/23 15:46 Order name: EKG; Complete Time: 15:47 01/23 15:46 Order name: Cardiac monitoring; Complete Time: 16:10 01/23 15:46 Order name: EKG - Nurse/Tech; Complete Time: 16:10 01/23 15:46 Order name: IV Saline Lock; Complete Time: 15:56 01/23 15:46 Order name: Labs collected and sent; Complete Time: 15:56 01/23 15:46 Order name: O2 Per Protocol; Complete Time: 15:56 01/23 15:46 Order name: O2 Sat Monitoring; Complete Time: 15:56 01/23 15:47 Order name: Magnesium; Complete Time: 18:23 EDMS 01/23 18:24 Interpretation: Abnormal: MG 1.7. cp 01/23 15:47 Order name: NT PRO-BNP; Complete Time: 18:23 EDMS 01/23 16:09 Order name: CT Soft Tissue Neck W/contr; Complete Time: 18:54 cp 01/23 17:19 Order name: COVID-19/FLU A+B; Complete Time: 18:23 EDMS Administered Medications: 16:16 Drug: Albuterol 2.5 mg Route: Inhalation; ll1 18:33 Follow up: Response: No adverse reaction ll1 16:16 Drug: AtroVENT (ipratropium) Aerosol 0.5 mg Route: Inhalation; ll1 18:33 Follow up: Response: No adverse reaction ll1 18:43 Drug: Magnesium Sulfate 1 grams Route: IVPB; Infused Over: 1 hrs; Site: left ll1 antecubital; 19:43 Follow up: Response: No adverse reaction; IV Status: Completed infusion ad5 Disposition: 01/24 07:35 Co-signature as Attending Physician, Roberto Alejo MD. rn Disposition Summary: 01/23/21 18:56 Discharge Ordered Location: Home cp Problem: an ongoing problem cp Symptoms: have improved cp Condition: Stable cp Diagnosis - Cervicalgia cp - Shortness of breath cp Followup: cp - With: Private Physician - When: 2 - 3 days - Reason: Recheck today's complaints Discharge Instructions: - Discharge Summary Sheet cp - Musculoskeletal Pain cp - Shortness of Breath, Adult cp - Aspirin and Your Heart cp - Neck Exercises cp Forms: - Medication Reconciliation Form cp - Thank You Letter cp - Antibiotic Education cp - Prescription Opioid Use cp Prescriptions: - albuterol sulfate 90 mcg/actuation Inhalation HFA aerosol inhaler - inhale 2 puff by INHALATION route every 4-6 hours; 1 Inhaler; Refills: 0, cp Product Selection Permitted - Ibuprofen 800 mg Oral Tablet - take 1 tablet by ORAL route every 8 hours As needed take with food; 30 tablet; cp Refills: 0, Product Selection Permitted - Cyclobenzaprine 10 mg Oral Tablet - take 1 tablet by ORAL route every 8 hours As needed; 20 tablet; Refills: 0, cp Product Selection Permitted Signatures: Dispatcher [employer] EDMS Roberto Alejo MD MD rn Page, Corey, PA PA cp Delfin Young RN RN ll1 Tierney Desai RN RN kg Rick Hernadez ad5 Corrections: (The following items were deleted from the chart) 01/23 16:11 15:13 CORONAVIRUS+MR.LAB.BRZ ordered. EDMS EDMS 16:11 15:16 Influenza Screen (A ordered. EDMS EDMS 17:16 15:45 The patient or guardian complains of pain, that is acute, cp cp 18:47 16:30 Constitutional: Negative for body aches, chills, fever, poor PO intake, cp cp 18:47 16:30 Cardiovascular: Negative for chest pain, edema, palpitations, cp cp 18:47 16:30 Respiratory: Positive for shortness of breath, Negative for cough, wheezing, cp cp 18:47 16:30 Abdomen/GI: Positive for nausea, Negative for abdominal pain, vomiting, diarrhea, cp constipation, cp 18:47 16:30 Eyes: Negative for injury, pain, redness, and discharge, cp cp 18:47 16:30 Back: Negative for pain at rest, pain with movement, cp cp 18:47 16:30 : Negative for urinary symptoms, cp cp 18:47 16:30 Neuro: Negative for altered mental status, headache, numbness, weakness, cp cp 18:47 16:30 Neck: Positive for pain with movement, pain at rest, tenderness, of the right cp lateral neck, cp 18:47 16:30 Skin: Negative for rash, cp cp 18:47 16:30 All other systems are negative, cp cp 01/24 16:59 01/23 15:45 Associated signs and symptoms: Pertinent positives: shortness of breath, cp cp
[2021-01-25 01:49] VITALS: TEMP 98.3
[2021-01-25 01:52] VITALS: O2SAT 100
[2021-01-25 01:55] VITALS: BP 111/45
--- NOTE | 2021-01-25 07:34 | EKG ---
Test Date: 2021-01-23 Test Time: 16:13:50 Receiving Team Member: YANETH MEASUREMENT RESULTS: Intervals: Rate: 83 PA: 212 QRSD: 76 QT: 314 QTc: 368 [place]: P: 73 PA: 212 QRS: 67 T: 32 INTERPRETIVE STATEMENTS: Sinus rhythm with 1st degree AV block Otherwise normal ECG Compared to ECG 11/20/2020 09:14:00 First degree AV block now present Electronically Signed On 01-25-21 07:28:59 CDT by Jeff Rapp
== END 2021-01-23 19:42 | disposition home or self-care (01) ==
LOC: ER 14:57
DX: M54.2 Cervicalgia (principal); R06.02 Shortness of breath; Z20.822 Contact with and (suspected) exposure to COVID-19; E11.9 Type 2 diabetes mellitus without complications; Z79.84 Long term (current) use of oral hypoglycemic drugs; K76.0 Fatty (change of) liver, not elsewhere classified
CPT/HCPCS: 93005; 85025; 80048; 36415; 83735; 86308; 85610; 80076; 84484; 83880; 0240U; 70491; 71045; Q9967; J3475

== ENCOUNTER 2021-03-30 20:06 | Emergency (ER) | payer OTHER ==
[2021-03-30 22:55] LABS: Urine Blood Trace-intact (Negative); Urine Glucose Trace (Negative); Urine Protein Trace (Negative); Urine Specific Gravity >=1.030 (1.005-1.030)
[2021-03-30] MEDS ORDERED: ONDANSETRON 4 MG/2 ML VIAL ONE (23:10)
[2021-03-30] MEDS ORDERED: MORPHINE 4 MG/ML SYR ONE (23:10)
[2021-03-30] MEDS ORDERED: NA CHLORIDE 0.9% 1,000 ML ONE (23:10)
[2021-03-30 23:17] LABS: Absolute Lymphocytes (CBC) 1.8 K/uL (0.7-4.9); Basophils % 0.8 % (0-1.3); Lymphocytes % 19.1 % (15.3-44.8); MPV 8.5 fL (7.6-11.3); RBC Red Blood Cell Count 3.87 M/uL (3.86-4.86)
[2021-03-30 23:34] LABS: ALT/SGPT 26 U/L (12-78); AST/SGOT 19 U/L (15-37); Albumin 3.1 g/dL (3.4-5.0); Alkaline Phosphatase 190 U/L (45-117); BUN Blood Urea Nitrogen 9 mg/dL (7-18); Bicarbonate 34 mmol/L (21-32); Bilirubin Direct 0.2 mg/dL (0-0.2); Bilirubin Total 0.5 mg/dL (0.2-1.0); Glucose Level 195 mg/dL (74-106); Lipase 65 U/L (73-393); Potassium 3.4 mmol/L (3.5-5.1); Protein, Total 6.7 g/dL (6.4-8.2); Sodium Level 140 mmol/L (136-145)
[2021-03-30 23:44] LABS: Anisocytosis 1+; Blood Morphology Comment NOTED (NOT SEEN); Hypochromasia 1+; Platelet Estimate DECR; White Blood Cell Scan OK (OK)
[2021-03-31] MEDS ORDERED: CEFTRIAXONE 1000 MG/VIAL ONE (01:50)
[2021-03-31] MEDS ORDERED: METRONIDAZOLE 500mg IVPB 500 MG/100 ML BAG IV ONE (01:51)
--- NOTE | 2021-03-31 01:51 | EDPHYS ---
Physician Documentation [facility] Name: Dena Nance Age: 51 yrs Sex: Female : 1970 Arrival Date: 03/30/2021 Time: 20:10 Bed 27 Private MD: PENG Physician Juan Loya HPI: 03/30 22:16 This 51 yrs old Female presents to ER via Ambulatory with complaints of mh7 Abdominal Pain. 22:16 The patient presents with abdominal pain in the left upper quadrant. Onset: The mh7 symptoms/episode began/occurred today. The symptoms do not radiate. Associated signs and symptoms: Pertinent positives: diarrhea, Pertinent negatives: nausea and vomiting, anorexia, blood in stools, chest pain, constipation, dysuria, fever, headache, hematuria, nausea, palpitations, shortness of breath, vaginal discharge, vomiting, vomiting blood. The symptoms are described as intermittent, vague, waxing/waning. Modifying factors: The symptoms are alleviated by nothing, the symptoms are aggravated by nothing. Severity of pain: At its worst the pain was moderate today, in the emergency department the pain is unchanged. 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 cc4 Historical: - Allergies: 20:46 NKA; df1 - Home Meds: 20:46 dicyclomine 20 mg Oral tab 4 times per day [Active]; gabapentin 300 mg Oral cap 3 times df1 per day [Active]; glimepiride 4 mg Oral tab twice a day [Active]; lovastatin 40 mg Oral tab 1 tab once daily [Active]; metformin 1,000 mg Oral tab 2 times per day [Active]; omeprazole 40 mg Oral cpDR once daily [Active]; trazodone 50 mg Oral tab 2 times per day [Active]; sertraline 50 mg Oral tab 1 tab once daily [Active]; Toujeo SoloStar subcutaneous [Active]; - PMHx: 20:46 Colitis; Diabetes - NIDDM; fatty liver; gastritis; Pancreatitis; Diverticulitis; df1 Cirrhosis of liver; - PSHx: 20:46 Cholecystectomy; hysterectomy; df1 - Immunization history:: Adult Immunizations up to date. - Social history:: Smoking status: Patient denies any tobacco usage or history of. Patient/guardian denies using alcohol. ROS: 22:16 Constitutional: Negative for fever, chills, and weight loss, Eyes: Negative for injury, mh7 pain, redness, and discharge, ENT: Negative for injury, pain, and discharge, Neck: Negative for injury, pain, and swelling, Cardiovascular: Negative for chest pain, palpitations, and edema, Respiratory: Negative for shortness of breath, cough, wheezing, and pleuritic chest pain, Back: Negative for injury and pain, : Negative for injury, bleeding, discharge, and swelling, MS/Extremity: Negative for injury and deformity, Skin: Negative for injury, rash, and discoloration, Neuro: Negative for headache, weakness, numbness, tingling, and seizure, Psych: Negative for depression, anxiety, suicide ideation, homicidal ideation, and hallucinations, Allergy/Immunology: Negative for hives, rash, and allergies, Endocrine: Negative for neck swelling, polydipsia, polyuria, polyphagia, and marked weight changes, Hematologic/Lymphatic: Negative for swollen nodes, abnormal bleeding, and unusual bruising. Exam: 22:16 Constitutional: This is a well developed, well nourished patient who is awake, alert, mh7 and in no acute distress. Head/Face: Normocephalic, atraumatic. Eyes: Pupils equal round and reactive to light, extra-ocular motions intact. Lids and lashes normal. Conjunctiva and sclera are non-icteric and not injected. Cornea within normal limits. Periorbital areas with no swelling, redness, or edema. Neck: Trachea midline, no thyromegaly or masses palpated, and no cervical lymphadenopathy. Supple, full range of motion without nuchal rigidity, or vertebral point tenderness. No Meningismus. Chest/axilla: Normal chest wall appearance and motion. Nontender with no deformity. No lesions are appreciated. Cardiovascular: Regular rate and rhythm with a normal S1 and S2. No gallops, murmurs, or rubs. Normal PMI, no JVD. No pulse deficits. Respiratory: Lungs have equal breath sounds bilaterally, clear to auscultation and percussion. No rales, rhonchi or wheezes noted. No increased work of breathing, no retractions or nasal flaring. 22:16 Skin: Warm, dry with normal turgor. Normal color with no rashes, no lesions, and no evidence of cellulitis. MS/ Extremity: Pulses equal, no cyanosis. Neurovascular intact. Full, normal range of motion. Neuro: Awake and alert, GCS 15, oriented to person, place, time, and situation. Cranial nerves II-XII grossly intact. Motor strength 5/5 in all extremities. Sensory grossly intact. Cerebellar exam normal. Normal gait. Psych: Awake, alert, with orientation to person, place and time. Behavior, mood, and affect are within normal limits. 22:16 Abdomen/GI: Inspection: obese Bowel sounds: normal, in all quadrants, Palpation: moderate abdominal tenderness, in the left upper quadrant and left lower quadrant, mass, is not appreciated, rebound tenderness, is not appreciated, voluntary guarding, is not appreciated, involuntary guarding, is not appreciated, no appreciated organomegaly, Rectal exam: the exam is deferred, because of patient request, Indicators: McBurney's point is not tender, Garza's sign is negative, Rovsing's sign is negative, Obturator sign is negative, Psoas sign is negative, Liver: no appreciated palpable abnormalities, Hernia: not appreciated. Vital Signs: 20:44 BP 108 / 47; Pulse 87; Resp 18; Temp 97.9; Pulse Ox 99% on R/A; Weight 69.85 kg; Height df1 5 ft. 4 in. (162.56 cm); Pain 10/10; 21:00 BP 123 / 60; Pulse 88; Resp 20; Temp 98.3(O); cc4 22:00 BP 119 / 63; Pulse 80; Resp 18; cc4 23:00 BP 112 / 70; Pulse 87; Resp 18; cc4 03/31 00:17 BP 118 / 59; Pulse 79; Resp 20; Temp 98.5; cc4 02:00 BP 104 / 58; Pulse 80; Resp 18; cc4 03:10 BP 100 / 53; Pulse 76; Resp 18; Temp 98.4(O); cc4 03/30 20:44 Body Mass Index 26.43 (69.85 kg, 162.56 cm) df1 MDM: 01:47 Differential diagnosis: bowel obstruction, diverticulitis, gastritis, gastroesophageal mh7 reflux disease, non-specific abd pain, Peptic Ulcer Disease, Pyelonephritis, Ureterolithiasis, urinary tract infection. Data reviewed: vital signs, nurses notes, old medical records, lab test result(s), CBC, electrolytes, urinalysis, EKG, radiologic studies, CT scan. Data interpreted: Pulse oximetry: on room air is 99 %. Interpretation: normal. Counseling: I had a detailed discussion with the patient and/or guardian regarding: the historical points, exam findings, and any diagnostic results supporting the discharge/admit diagnosis, lab results, radiology results, the need for outpatient follow up, to return to the emergency department if symptoms worsen or persist or if there are any questions or concerns that arise at home. Response to treatment: the patient's symptoms have resolved after treatment, the patient's blood pressure is in an acceptable range, mental status has returned to baseline, the patient no longer shows bradycardia, the patient is not short of breath, the patient is not tachycardic, the patient's pain is gone, the patient's temperature has normalized. 01:51 Patient medically screened. [facility] 03/30 22:15 Order name: Basic Metabolic Panel [facility] 03/30 22:15 Order name: CBC with Diff; Complete Time: 01:19 [facility] 03/30 22:15 Order name: Hepatic Function [facility] 03/30 22:15 Order name: Lipase; Complete Time: 23:40 [facility] 03/30 22:16 Order name: Basic Metabolic Panel; Complete Time: 23:40 [facility] 03/30 22:16 Order name: Liver (Hepatic) Function; Complete Time: 23:40 [facility] 03/30 22:15 Order name: CT Abd/Pelvis - IV Contrast Only [facility] 03/30 22:54 Order name: Urine Dipstick-Ancillary; Complete Time: 22:57 [facility] 03/30 23:33 Order name: CBC Smear Scan; Complete Time: 01:19 [facility] 03/31 02:01 Order name: Protime (+inr); Complete Time: 02:45 [facility] 03/31 02:01 Order name: Ptt, Activated; Complete Time: 02:45 [facility] 03/30 22:15 Order name: IV Saline Lock; Complete Time: 23:08 [facility] 03/30 22:15 Order name: Labs collected and sent; Complete Time: 23:51 [facility] 03/30 22:15 Order name: Urine Dipstick-Ancillary (obtain specimen); Complete Time: 23:08 [facility] 03/30 22:15 Order name: EKG; Complete Time: 22:16 [facility] 03/30 22:15 Order name: EKG - Nurse/Tech; Complete Time: 23:51 7 Administered Medications: 03:24 Discontinued: NS 0.9% 1000 ml IV at 1000 ml once cc4 03:23 Discontinued: Flagyl (metroNIDAZOLE) 500 mg 100 ml IVPB at 200 ml/hr once over 30 mins cc4 03/30 23:00 Drug: NS 0.9% 1000 ml Route: IV; Rate: 1000 ml; Site: right antecubital; cc4 23:00 Drug: morphine 4 mg Route: IVP; Site: right antecubital; cc4 03/31 00:00 Follow up: Response: Pain is decreased cc4 03/30 23:00 Drug: Zofran (Ondansetron) 4 mg Route: IVP; Site: right antecubital; cc4 23:00 Follow up: Response: No adverse reaction; Nausea is decreased cc4 03/31 01:26 Drug: Rocephin (cefTRIAXone) 1 grams Route: IV; Rate: per protocol; Site: right cc4 antecubital; 03:10 Follow up: Response: No adverse reaction; Pain is decreased cc4 01:26 Drug: Flagyl (metroNIDAZOLE) 500 mg Volume: 100 ml; Route: IVPB; Rate: 200 ml/hr; cc4 Infused Over: 30 mins; Site: right antecubital; 03:10 Follow up: Response: No adverse reaction; Pain is decreased cc4 Disposition Summary: 03/31/21 02:47 Discharge Ordered Location: Home(03/31/21 02:47) [facility] Problem: an acute exacerbation(03/31/21 02:47) [facility] Symptoms: have improved(03/31/21 02:47) [facility] Condition: Stable(03/31/21 02:47) [facility] Diagnosis - Diverticulitis of large intestine without perforation or abscess without [facility] bleeding(03/31/21 02:47) - Thrombocytopenia, unspecified(03/31/21 02:47) [facility] Followup: [facility] - With: Private Physician - When: 1 - 2 days - Reason: Worsening of condition, Recheck today's complaints, Continuance of care, Re-evaluation by your physician Followup: [facility] - With: Sixto Cortez MD - When: 2 - 3 days - Reason: Worsening of condition, Recheck today's complaints Followup: [facility] - With: Eliana Billingsley MD - When: 2 - 3 days - Reason: Worsening of condition, Recheck today's complaints Discharge Instructions: - Discharge Summary Sheet [facility] - High-Fiber Diet [facility] - Thrombocytopenia [facility] - Diverticulitis, [id number] [facility] Forms: - Medication Reconciliation Form [facility] - Thank You Letter [facility] - Antibiotic Education [facility] - Prescription Opioid Use [facility] Prescriptions: - ondansetron 4 mg Oral tablet,disintegrating - place 1 tablet by TRANSLINGUAL route every 8 hours As needed; 10 tablet; [facility] Refills: 0, Product Selection Permitted - Flagyl 500 mg Oral Tablet - take 1 tablet by ORAL route every 8 hours for 10 days; 30 tablet; Refills: 0, [facility] Product Selection Permitted - Cipro 500 mg Oral Tablet - take 1 tablet by ORAL route every 12 hours for 10 days; 20 tablet; Refills: 0, [facility] Product Selection Permitted - dicyclomine 20 mg Oral Tablet - take 1 tablet by ORAL route 4 times per day As needed; 20 tablet; Refills: 0, [facility] Product Selection Permitted Signatures: Dispatcher [employer] Juan Lafleur MD MD [facility] Kenisha Kaufman RN RN cc4 Jordyn Ortiz df1 Corrections: (The following items were deleted from the chart) 03/30 20:48 20:46 PMHx: Diabetes - IDDM; df1 df1 03/31 02:09 01:51 Home [place] [id number] 02: 01:51 an acute exacerbation [place] [id number] 02: 01:51 have improved [place] [id number] 02:09 01:51 Stable [place] [address] 02: 01:51 Diverticulitis of large intestine without perforation or abscess without bleeding [place] [address] 02:09 01:51 Thrombocytopenia, unspecified [place] [address]
--- NOTE | 2021-03-31 01:51 | ER ---
Nurse's Notes [facility] Name: Dena Nance Age: 51 yrs Sex: Female : 1970 Arrival Date: 03/30/2021 Time: 20:10 Bed 27 Private MD: Diagnosis: Diverticulitis of large intestine without perforation or abscess without bleeding;Thrombocytopenia, unspecified Presentation: 03/30 20:44 Chief complaint: Patient states: Pt states LUQ with diarrhea. Coronavirus screen: df1 Vaccine status: Patient reports receiving the 2nd dose of the covid vaccine. At this time, the client does not indicate any symptoms associated with coronavirus-19. The client reports previous COVID testing was negative. Date of collection: January 2021. Ebola Screen: Patient negative for fever greater than or equal to 101.5 degrees Fahrenheit, and additional compatible Ebola Virus Disease symptoms Patient denies exposure to infectious person. Patient denies travel to an Ebola-affected area in the 21 days before illness onset. Initial Sepsis Screen: Does the patient meet any 2 criteria? No. Patient's initial sepsis screen is negative. Risk Assessment: Do you want to hurt yourself or someone else? Patient reports no desire to harm self or others. Onset of symptoms was March 30, 2021 at 10:00. 20:44 Method Of Arrival: Ambulatory df1 20:44 Acuity: MARIANA 3 df1 03/31 03:10 Initial Sepsis Screen: Does the patient have a suspected source of infection? No. cc4 Patient's initial sepsis screen is negative. Triage Assessment: 03/30 21:00 General: Appears uncomfortable, Behavior is calm, cooperative. Pain: Complains of pain cc4 in abdomen Pain currently is 10 out of 10 on a pain scale. Pain began Reports h/o diverticulitis with pain starting \T\ 1000 today. GI: Abdomen is flat, Bowel sounds present X 4 quads. Reports having loose stool x 1 today. 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 cc4 Historical: - Allergies: 20:46 NKA; df1 - Home Meds: 20:46 dicyclomine 20 mg Oral tab 4 times per day [Active]; gabapentin 300 mg Oral cap 3 times df1 per day [Active]; glimepiride 4 mg Oral tab twice a day [Active]; lovastatin 40 mg Oral tab 1 tab once daily [Active]; metformin 1,000 mg Oral tab 2 times per day [Active]; omeprazole 40 mg Oral cpDR once daily [Active]; trazodone 50 mg Oral tab 2 times per day [Active]; sertraline 50 mg Oral tab 1 tab once daily [Active]; Toujeo SoloStar subcutaneous [Active]; - PMHx: 20:46 Colitis; Diabetes - NIDDM; fatty liver; gastritis; Pancreatitis; Diverticulitis; df1 Cirrhosis of liver; - PSHx: 20:46 Cholecystectomy; hysterectomy; df1 - Immunization history:: Adult Immunizations up to date. - Social history:: Smoking status: Patient denies any tobacco usage or history of. Patient/guardian denies using alcohol. Screenin:00 Abuse screen: Denies threats or abuse. Nutritional screening: No deficits noted. cc4 Tuberculosis screening: No symptoms or risk factors identified. Fall Risk None identified. Assessment: 21:00 GI: Abd is soft X 4 quads Abdomen is tender to palpation left upper quad. cc4 Vital Signs: 20:44 BP 108 / 47; Pulse 87; Resp 18; Temp 97.9; Pulse Ox 99% on R/A; Weight 69.85 kg; Height df1 5 ft. 4 in. (162.56 cm); Pain 10/10; 21:00 BP 123 / 60; Pulse 88; Resp 20; Temp 98.3(O); cc4 22:00 BP 119 / 63; Pulse 80; Resp 18; cc4 23:00 BP 112 / 70; Pulse 87; Resp 18; cc4 03/31 00:17 BP 118 / 59; Pulse 79; Resp 20; Temp 98.5; cc4 02:00 BP 104 / 58; Pulse 80; Resp 18; cc4 03:10 BP 100 / 53; Pulse 76; Resp 18; Temp 98.4(O); cc4 10 20:44 Body Mass Index 26.43 (69.85 kg, 162.56 cm) df1 ED Course: 03/30 20:10 Patient arrived in ED. bp1 20:46 Triage completed. df1 21:00 Arm band placed on right wrist. cc4 21:00 Patient has correct armband on for positive identification. Placed in gown. Bed in low cc4 position. Call light in reach. Side rails up X 1. Side rails up X2. Adult w/ patient. 21:02 Kenisha Kaufman, RN is Primary Nurse. cc4 22:03 Juan Loya MD is Attending Physician. [facility] 22:45 Missed attempt(s): 22 gauge in left antecubital area. dc2 22:57 Initial lab(s) drawn, by me, sent to lab. Inserted saline lock: 20 gauge in right bb antecubital area, using aseptic technique. Blood collected. 23:40 Notified ED physician of a critical lab result(s). platelets of 40. Dr Loya notified. bb 23:51 Basic Metabolic Panel Sent. cc4 23:51 Hepatic Function Sent. cc4 23:52 CT Abd/Pelvis - IV Contrast Only Sent. cc4 03/31 00:37 CT Abd/Pelvis - IV Contrast Only In Process Unspecified. EDOK 01:49 Sixto Cortez MD is Referral Physician. [facility] 02:46 Sixto Cortez MD is Referral Physician. [facility] 02:46 Eliana Billingsley MD is Referral Physician. [facility] 03:10 No provider procedures requiring assistance completed. cc4 03:10 IV discontinued, intact, bleeding controlled, No redness/swelling at site. Pressure cc4 dressing applied. Administered Medications: 03:24 Discontinued: NS 0.9% 1000 ml IV at 1000 ml once cc4 03:23 Discontinued: Flagyl (metroNIDAZOLE) 500 mg 100 ml IVPB at 200 ml/hr once over 30 mins cc4 03/30 23:00 Drug: NS 0.9% 1000 ml Route: IV; Rate: 1000 ml; Site: right antecubital; cc4 23:00 Drug: morphine 4 mg Route: IVP; Site: right antecubital; cc4 03/31 00:00 Follow up: Response: Pain is decreased cc4 03/30 23:00 Drug: Zofran (Ondansetron) 4 mg Route: IVP; Site: right antecubital; cc4 23:00 Follow up: Response: No adverse reaction; Nausea is decreased cc4 03/31 01:26 Drug: Rocephin (cefTRIAXone) 1 grams Route: IV; Rate: per protocol; Site: right cc4 antecubital; 03:10 Follow up: Response: No adverse reaction; Pain is decreased cc4 01:26 Drug: Flagyl (metroNIDAZOLE) 500 mg Volume: 100 ml; Route: IVPB; Rate: 200 ml/hr; cc4 Infused Over: 30 mins; Site: right antecubital; 03:10 Follow up: Response: No adverse reaction; Pain is decreased cc4 Outcome: 01:51 Discharge ordered by . [facility] 02:47 Discharge ordered by MD. cordova 03:10 Condition: improved cc4 03:10 Discharged to home ambulatory. cc4 03:10 Condition: improved 03:10 Discharge instructions given to patient, Instructed on discharge instructions, follow up and referral plans. medication usage, Demonstrated understanding of instructions, follow-up care, medications, Prescriptions given X 4. 03:22 Patient left the ED. cc4 Signatures: Dispatcher [employer] EDMS Fatimah Romero, RN RN Pauly Stockton Maurice, MD MD [facility] Kenisha Kaufman RN RN 4 Jordyn Ortiz df1 Sowmya Baker RN RN dc2 Corrections: (The following items were deleted from the chart) 03/30 20:48 20:46 PMHx: Diabetes - IDDM; df1 df1 03/31 02:59 01:00 BP 104 / 58; Pulse 80bpm; Resp 18bpm; Temp 98.4F Oral; cc4 cc4 02:59 02:00 BP 100 / 55; Pulse 73bpm; Resp 18bpm; Temp 98.5F; cc4 cc4 03:01 03/30 22:00 BP 118 / 59; Pulse 79bpm; Resp 20bpm; Temp 98.5F; cc4 cc4 03/31 03:01 02:00 BP 118 / 59; Pulse 79bpm; Resp 18bpm; Temp 98.5F; cc4 cc4
[2021-03-31 02:32] LABS: Protime INR 1.26
[2021-03-31 03:39] VITALS: O2SAT 99
[2021-03-31 03:47] VITALS: BP 100/53; TEMP 98.4
--- NOTE | 2021-03-31 22:07 | RAD REPORT ---
EXAM DESCRIPTION: CT - Abdomen Pelvis W Contrast - 03/31/2021 4:12 am COMPARISON: CT abdomen and pelvis December 04, 2020 [facility] MAIN ABD PAIN TECHNIQUE: CT of the abdomen and pelvis was acquired with IV contrast material. Coronal and sagitt al reconstructions were obtained. Automated exposure control was utilized on this examination as a dose lowering technique. FINDINGS: Lung bases: Clear. Liver: Normal. Gallbladder and biliary: Cholecystectomy. Unremarkable biliary tree. Pancreas: Fatty infiltration. Spleen: Normal. Adrenal glands: Normal adrenal glands. Kidneys: Normal kidneys Stomach and Small Bowel: The stomach and small bowel are normal. Urinary bladder: Normal. Uterus and Adnexa: Hysterectomy. Colon and Appendix: There is wall thickening of the descending colon with adjacent diverticula and fa t stranding. Multiple additional colonic diverticula are present in the colon. No evidence of appendi citis. Retroperitoneum and lymph nodes: Mild retroperitoneal fluid is present. No pathologic adenopathy. Vascular: Unremarkable. Peritoneal cavity: No ascites or free air. Musculoskeletal and soft tissues: Soft tissues are unremarkable. Lumbar spondylosis is present. No ag gressive bone lesions. No compression fracture. IMPRESSION: ABDOMEN/PELVIS IMPRESSION Wall thickening of the descending colon with adjacent diverticula and fat stranding likely represents acute diverticulitis and less likely infectious or inflammatory colitis.. Electronically signed by: Alessandro Siegel MD 03/31/2021 12:58 AM CDT Due to temporary technical issues with the PACS/Fluency reporting system, reports are being signed by the in house radiologists without review as a courtesy to insure prompt reporting. The interpreting radiologist is fully responsible for the content of the report.
--- NOTE | 2021-04-03 18:18 | EKG ---
Test Date: 2021-03-30 Test Time: 23:24:26 Route Supervisor: JANEE MEASUREMENT RESULTS: Intervals: Rate: 80 NC: 222 QRSD: 86 QT: 334 QTc: 385 [place]: P: 71 NC: 222 QRS: 70 T: 0 INTERPRETIVE STATEMENTS: Sinus rhythm with 1st degree AV block Nonspecific ST abnormality Abnormal ECG Compared to ECG 01/23/2021 16:13:50 ST (T wave) deviation now present Electronically Signed On 04-03-21 18:06:57 CDT by Jeff Rapp
== END 2021-03-31 03:22 | disposition home or self-care (01) ==
LOC: ER 20:06
DX: K57.32 Diverticulitis of large intestine without perforation or abscess without bleeding (principal); D69.6 Thrombocytopenia, unspecified; E11.9 Type 2 diabetes mellitus without complications
CPT/HCPCS: 93005; 85025; 80048; 36415; 85610; 82565; 80076; 85730; 81003; 83690; 74177; 96375; 96374; 99284; Q9967; J7030; J2405

== ENCOUNTER 2021-04-17 09:50 | Emergency (ER) | payer OTHER ==
[2021-04-17 10:26] LABS: Absolute Lymphocytes (CBC) 1.4 K/uL (0.7-4.9); Basophils % 1.3 % (0-1.3); Hematocrit 35.7 % (36.0-45.0); Lymphocytes % 22.9 % (15.3-44.8); MPV 8.1 fL (7.6-11.3); RBC Red Blood Cell Count 4.32 M/uL (3.86-4.86)
[2021-04-17 10:27] LABS: Protime INR 1.14
[2021-04-17 10:51] LABS: ALT/SGPT 42 U/L (12-78); AST/SGOT 48 U/L (15-37); Albumin 3.5 g/dL (3.4-5.0); Alkaline Phosphatase 133 U/L (45-117); BUN Blood Urea Nitrogen 11 mg/dL (7-18); Bicarbonate 34 mmol/L (21-32); Bilirubin Direct 0.1 mg/dL (0-0.2); Bilirubin Total 0.4 mg/dL (0.2-1.0); Glucose Level 264 mg/dL (74-106); Magnesium 1.8 mg/dL (1.8-2.4); NT PRO-BNP 84 pg/mL (<125); Potassium 3.5 mmol/L (3.5-5.1); Protein, Total 7.6 g/dL (6.4-8.2); Sodium Level 139 mmol/L (136-145); Troponin (Emerg Dept Use Only) < 0.02 ng/mL (0.0-0.045)
--- NOTE | 2021-04-17 11:29 | ER ---
Nurse's Notes [facility] Name: Dena Nance Age: 51 yrs Sex: Female : 1970 Arrival Date: 04/17/2021 Time: 09:52 Bed 16 Private MD: Diagnosis: Shortness of breath Presentation: 04/17 09:56 Chief complaint: Patient states: This morning patient states that BP was 158/92. Denies vg1 NV or headache, States lightheaded, shortness of breath, and LUQ pain.. Coronavirus screen: Vaccine status: Patient reports receiving the 2nd dose of the covid vaccine. Ebola Screen: Patient negative for fever greater than or equal to 101.5 degrees Fahrenheit, and additional compatible Ebola Virus Disease symptoms. Initial Sepsis Screen: Does the patient meet any 2 criteria? No. Patient's initial sepsis screen is negative. Does the patient have a suspected source of infection? No. Patient's initial sepsis screen is negative. Risk Assessment: Do you want to hurt yourself or someone else? Patient reports no desire to harm self or others. Onset of symptoms was April 17, 2021. 09:56 Method Of Arrival: Ambulatory vg1 09:56 Acuity: MARIANA 3 vg1 Triage Assessment: 09:58 General: Appears in no apparent distress. uncomfortable, Behavior is calm, cooperative. vg1 Pain: Complains of pain in left upper quadrant. Respiratory: Reports shortness of breath at rest on exertion Onset: The symptoms/episode began/occurred this morning, the patient has mild shortness of breath. 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 vg1 Historical: - Allergies: 09:58 NKA; vg1 - Home Meds: 09:58 dicyclomine 20 mg Oral tab 4 times per day [Active]; gabapentin 300 mg Oral cap 3 times vg1 per day [Active]; glimepiride 4 mg Oral tab twice a day [Active]; lovastatin 40 mg Oral tab 1 tab once daily [Active]; metformin 1,000 mg Oral tab 2 times per day [Active]; omeprazole 40 mg Oral cpDR once daily [Active]; sertraline 50 mg Oral tab 1 tab once daily [Active]; Toujeo SoloStar subcutaneous [Active]; trazodone 50 mg Oral tab 2 times per day [Active]; - PMHx: 09:58 cirrhosis of liver; Colitis; Diabetes - NIDDM; Diverticulitis; fatty liver; gastritis; vg1 Pancreatitis; - Immunization history:: Adult Immunizations up to date, Client reports receiving the 2nd dose of the Covid vaccine. - Social history:: Smoking status: Patient denies any tobacco usage or history of. - Family history:: not pertinent. Screenin:13 Abuse screen: Denies threats or abuse. Denies injuries from another. Nutritional tc5 screening: No deficits noted. Tuberculosis screening: No symptoms or risk factors identified. Fall Risk None identified. Assessment: 11:11 Cardiovascular: Rhythm is regular. Respiratory: No deficits noted. Reports shortness of tc5 breath SPECIAL PROCEDURE TECH. no S/S of SOB at this time, pt denies SOB at this time, states she has abd pain but always has pain. 11:39 Respiratory: Airway Respiratory effort is even, unlabored. tc5 11:39 Respiratory: Breath sounds are clear. tc5 Vital Signs: 09:56 BP 117 / 57; Pulse 86; Resp 16; Temp 98.3; Pulse Ox 100% ; Weight 68.04 kg; Height 5 vg1 ft. 4 in. (162.56 cm); Pain 7/10; 11:14 BP 115 / 52; Pulse 71; Resp 16; Pulse Ox 98% ; Pain 7/10; tc5 09:56 Body Mass Index 25.75 (68.04 kg, 162.56 cm) vg1 ED Course: 09:52 Patient arrived in ED. ds1 09:58 Triage completed. vg1 09:58 Arm band placed on. vg1 10:00 Brian Cannon MD is Attending Physician. ma2 10:00 Patient has correct armband on for positive identification. Placed in gown. Bed in low mh5 position. Side rails up X 1. Warm blanket given. hall monitor on. Pulse ox on. NIBP on. 10:14 Initial lab(s) drawn, by ED staff, sent to lab. Inserted saline lock: 20 gauge in left kj1 antecubital area, using aseptic technique. Blood collected. 10:28 XRAY Chest (1 view) In Process Unspecified. EDMS 10:31 EKG done, by ED staff, reviewed by Brian Cannon MD. 5 10:54 Essie Rodríguez, RN is Primary Nurse. tc5 11:38 IV discontinued, intact, bleeding controlled, No redness/swelling at site. Pressure tc5 dressing applied. 11:39 No provider procedures requiring assistance completed. tc5 Administered Medications: No medications were administered Outcome: 11:28 Discharge ordered by . [email or web address] 11:39 Condition: stable tc5 11:39 Discharged to home ambulatory. tc5 11:39 Discharge instructions given to patient. 11:48 Patient left the ED. kj1 Signatures: Dispatcher [employer] EDMN Karina Tejada dsMarta Lobo Brian Jj MD MD ma2 Jackson, Kandis kj1 Zully Baker, RN RN 1 Essie Rodríguez, RN RN tc5
--- NOTE | 2021-04-17 11:29 | EDPHYS ---
Physician Documentation [facility] Name: Dena Nance Age: 51 yrs Sex: Female : 1970 Arrival Date: 04/17/2021 Time: 09:52 Bed 16 Private MD: ED Physician Brian Cannon HPI: 04/17 11:25 This 51 yrs old Female presents to ER via Ambulatory with complaints of ma2 Shortness Of Breath, High Blood Pressure. 11:25 The patient has shortness of breath at rest. Onset: The symptoms/episode began/occurred ma2 suddenly, 1 hour(s) ago. Associated signs and symptoms: Pertinent negatives: productive cough, fever, loss of consciousness, nausea, numbness in extremities. Severity of symptoms: At their worst the symptoms were very mild in the emergency department the symptoms have resolved. The patient has not experienced similar symptoms in the past. has had this before and was panic attacks. 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 vg1 Historical: - Allergies: :58 NKA; vg1 - Home Meds: :58 dicyclomine 20 mg Oral tab 4 times per day [Active]; gabapentin 300 mg Oral cap 3 times vg1 per day [Active]; glimepiride 4 mg Oral tab twice a day [Active]; lovastatin 40 mg Oral tab 1 tab once daily [Active]; metformin 1,000 mg Oral tab 2 times per day [Active]; omeprazole 40 mg Oral cpDR once daily [Active]; sertraline 50 mg Oral tab 1 tab once daily [Active]; Toujeo SoloStar subcutaneous [Active]; trazodone 50 mg Oral tab 2 times per day [Active]; - PMHx: :58 cirrhosis of liver; Colitis; Diabetes - NIDDM; Diverticulitis; fatty liver; gastritis; vg1 Pancreatitis; - Immunization history:: Adult Immunizations up to date, Client reports receiving the 2nd dose of the Covid vaccine. - Social history:: Smoking status: Patient denies any tobacco usage or history of. - Family history:: not pertinent. ROS: 11:25 Constitutional: Negative for fever, chills, and weight loss. ma2 11:25 All other systems are negative. Exam: 11:25 Constitutional: This is a well developed, well nourished patient who is awake, alert, ma2 and in no acute distress. Head/Face: Normocephalic, atraumatic. Eyes: Pupils equal round and reactive to light, extra-ocular motions intact. Lids and lashes normal. Conjunctiva and sclera are non-icteric and not injected. Cornea within normal limits. Periorbital areas with no swelling, redness, or edema. ENT: Nares patent. No nasal discharge, no septal abnormalities noted. Tympanic membranes are normal and external auditory canals are clear. Oropharynx with no redness, swelling, or masses, exudates, or evidence of obstruction, uvula midline. Mucous membranes moist. Neck: Trachea midline, no thyromegaly or masses palpated, and no cervical lymphadenopathy. Supple, full range of motion without nuchal rigidity, or vertebral point tenderness. No Meningismus. Chest/axilla: Normal chest wall appearance and motion. Nontender with no deformity. No lesions are appreciated. Cardiovascular: Regular rate and rhythm with a normal S1 and S2. No gallops, murmurs, or rubs. Normal PMI, no JVD. No pulse deficits. Respiratory: Lungs have equal breath sounds bilaterally, clear to auscultation and percussion. No rales, rhonchi or wheezes noted. No increased work of breathing, no retractions or nasal flaring. Abdomen/GI: Soft, non-tender, with normal bowel sounds. No distension or tympany. No guarding or rebound. No evidence of tenderness throughout. Back: No spinal tenderness. No costovertebral tenderness. Full range of motion. Skin: Warm, dry with normal turgor. Normal color with no rashes, no lesions, and no evidence of cellulitis. MS/ Extremity: Pulses equal, no cyanosis. Neurovascular intact. Full, normal range of motion. Neuro: Awake and alert, GCS 15, oriented to person, place, time, and situation. Cranial nerves II-XII grossly intact. Motor strength 5/5 in all extremities. Sensory grossly intact. Cerebellar exam normal. Normal gait. Vital Signs: 09:56 BP 117 / 57; Pulse 86; Resp 16; Temp 98.3; Pulse Ox 100% ; Weight 68.04 kg; Height 5 vg1 ft. 4 in. (162.56 cm); Pain 7/10; 11:14 BP 115 / 52; Pulse 71; Resp 16; Pulse Ox 98% ; Pain 7/10; tc5 09:56 Body Mass Index 25.75 (68.04 kg, 162.56 cm) vg1 MDM: 10:01 Patient medically screened. ma2 11:25 Differential diagnosis: Anxiety Reaction Bronchitis Psychogenic. Data reviewed: vital ma2 signs, nurses notes, EMS record, residential records. Counseling: I had a detailed discussion with the patient and/or guardian regarding: the historical points, exam findings, and any diagnostic results supporting the discharge/admit diagnosis, the presence of at least one elevated blood pressure reading (>120/80) during this emergency department visit, the need for outpatient follow up. Response to treatment: the patient's symptoms have markedly improved after treatment. 04/17 10:00 Order name: Basic Metabolic Panel; Complete Time: 11:16 ma2 04/17 10:00 Order name: CBC with Diff ma2 04/17 10:00 Order name: LFT's; Complete Time: 11:16 ma2 04/17 10:00 Order name: Magnesium; Complete Time: 11:16 ma2 04/17 10:00 Order name: NT PRO-BNP; Complete Time: 11:16 ma2 04/17 10:00 Order name: PT-INR; Complete Time: 11:16 ma2 04/17 10:00 Order name: Troponin (emerg Dept Use Only); Complete Time: 11:16 ma2 04/17 10:00 Order name: XRAY Chest (1 view) sc2 04/17 10:00 Order name: EKG; Complete Time: 10:01 sc2 04/17 10:00 Order name: Cardiac monitoring; Complete Time: 10:16 ma2 04/17 10:00 Order name: EKG - Nurse/Tech; Complete Time: 10:16 ma2 04/17 10:00 Order name: IV Saline Lock; Complete Time: 10:26 ma2 04/17 10:00 Order name: Labs collected and sent; Complete Time: : sc2 04/17 10:36 Order name: CBC Smear Scan EDMS 04/17 10:00 Order name: O2 Per Protocol; Complete Time: 10:16 ma2 04/17 10:00 Order name: O2 Sat Monitoring; Complete Time: :16 ma2 Administered Medications: No medications were administered Disposition Summary: 04/17/21 11:28 Discharge Ordered Location: Home ma2 Condition: Stable ma2 Diagnosis - Shortness of breath ma2 Followup: ma2 - With: Private Physician - When: Tomorrow - Reason: Continuance of care Discharge Instructions: - Discharge Summary Sheet ma2 - Shortness of Breath, Adult, [id number] ma2 Forms: - Medication Reconciliation Form ma2 - Thank You Letter ma2 - Antibiotic Education ma2 - Prescription Opioid Use ma2 Signatures: Dispatcher [employer] EDMS Brian Cannon MD MD ma2 Zully Baker RN RN vg1
[2021-04-17 11:48] LABS: Blood Morphology Comment NOT SEEN (NOT SEEN); Platelet Estimate DECR; White Blood Cell Scan OK (OK)
[2021-04-17 12:25] VITALS: TEMP 98.3
[2021-04-17 12:27] VITALS: BP 115/52; O2SAT 98
--- NOTE | 2021-04-17 15:02 | RAD REPORT ---
EXAM DESCRIPTION: RAD - Chest Single View - 04/17/2021 2:56 pm CLINICAL HISTORY: bp, hypertension COMPARISON: December 2020 TECHNIQUE: AP portable chest image was obtained 04/17/2021 2:56 pm . FINDINGS: No focal lung parenchymal process. Interstitial pattern matches comparison. Heart and vasc ulature are normal. No measurable pleural effusion and no pneumothorax. No acute bony abnormality see n. No acute aortic findings suspected. IMPRESSION: No acute cardiopulmonary process. No significant change from comparison study.
[2021-04-20 09:48] LABS: Urine Blood Negative (Negative); Urine Glucose 1+ (Negative); Urine Protein 1+ (Negative); Urine Specific Gravity 1.025 (1.005-1.030); Urine pH 6.5 (5.0-7.0)
== END 2021-04-17 11:48 | disposition home or self-care (01) ==
LOC: ER 09:50
DX: R06.02 Shortness of breath (principal); E11.9 Type 2 diabetes mellitus without complications
CPT/HCPCS: 36415; 71045; 80048; 80076; 81003; 83735; 83880; 84484; 85025; 85610; 93005; 99284

== ENCOUNTER 2021-05-29 10:35 | Emergency (ER) | payer OTHER ==
--- OUTSIDE RECORDS SUMMARY | 2021-05-29 10:38 | XMS REPORT | Continuity of Care Document ---
:1970 Author Organization [facility] t Address [address] [place] [address] Care Team Providers Name Role Phone Sharpless Primary Care Physician JAVY Attending Clinician Unavailable ROS Attending Clinician Unavailable AIDA VELÁSQUEZ Attending Clinician Unavailable JAVY Admitting Clinician Unavailable ROS Admitting Clinician Unavailable Payers Payer Name Policy Type Policy Number Effective Date Expiration Date S ource Problems This patient has no known problems. Allergies, Adverse Reactions, Alerts This patient has no known allergies or adverse reactions. Social History Social Habit Start Date Stop Date Quantity Comments Source Sex Assigned At [facility] Tobacco use and 2017-05-09 2017-05-09 Never used [facility] - exposure 00:00:00 00:00:00 [facility] Smoking Status Start Date Stop Date Source Never smoker [facility] Medications Ordered Filled Start Stop Current Ordering Indication Dosage Frequency Signature Comments Components Source Medication Medication Date Date Medication? Clinician (SIG) Name Name Sertraline Sertraline 2018-06 Yes Na Benjamin [address] [facility] HCl 2-24 [facility] empaglifloz 2016-06 Yes 10mg QD [...] daily before meals. Metformin Metformin Yes Na Bnejamin [address] [facility] HCl HCl with a [facility] - meal [facility] Immunizations Ordered Filled Immunization Date Status Comments [facility] e Immunization Name Name Fluckamalax - Flucelvax - 2019-03-[address] [facility] - multidose vial multidose vial 00:00:00 [facility] Outpatient [facility] Procedures This patient has no known procedures. Encounters Start End Encounter Admission Attending Care Care Encounter Source Date/Time Date/Time Type Type Clinicians Facility Department ID 2021-05-16 Outpatient [facility] [id number] [place] 13:[place] [id number] da [facility] 2021-05-16 Outpatient [facility] [id number] [place] 13:10:[place] [id number] da [facility] 2021-05-16 Outpatient [facility] [id number] [place] 12[facility]53:[place] [id number] da [facility] 2021-05-16 Outpatient LIZBETH SOMMER MHSE [id number] 12:43:47 [facility] 2021-05-21 2021-05-21 [facility] [id number] [facility] 2021-05-16 2021-05-16 Outpatient LIZBETH SOMMER SE [id number] 12:45:00 23:59:00 [facility] 2021-04-05 2021-04-05 Outpatient [facility] [id number] [facility] 2021-03-08 2021-03-08 Outpatient [facility] [id number] [facility] 2021-01-29 2021-01-29 Outpatient [facility] [id number] [facility] 2021-01-17 2021-01-17 Outpatient [facility] [id number] [facility] 2021-01-03 2021-01-03 Outpatient [facility] [id number] [facility] 2021-01-02 2021-01-02 Outpatient [facility] [id number] [facility] 2020-12-04 2020-12-04 Outpatient [facility] [id number] [facility] 2020-11-16 2020-11-16 Outpatient [facility] [id number] [facility] 2020-11-06 2020-11-06 Outpatient [facility] [id number] [facility] 2020-10-03 2020-10-03 Outpatient [facility] [id number] [facility] 2020-09-28 2020-09-28 Outpatient [facility] [id number] [facility] 2020-08-24 2020-08-24 Outpatient [facility] [id number] [facility] 2020-08-17 2020-08-17 Outpatient [facility] [id number] [facility] 2020-08-11 2020-08-11 Outpatient [facility] [id number] [facility] 2020-08-03 2020-08-03 Outpatient [facility] [id number] [facility] 2020-07-31 2020-07-31 Outpatient [facility] [id number] [facility] 2020-06-26 2020-06-26 Outpatient [facility] [id number] [facility] 2020-06-15 2020-06-15 Outpatient [facility] [id number] [facility] 2020-06-14 2020-06-14 Outpatient [facility] [id number] [facility] 2020-06-12 2020-06-12 Outpatient [facility] [id number] [facility] 2020-06-01 2020-06-01 Outpatient [facility] [id number] [facility] 2020-05-29 2020-05-29 Outpatient [facility] [id number] [facility] 2020-05-08 2020-05-08 Outpatient [facility] [id number] [facility] 2020-05-04 2020-05-04 Outpatient [facility] [id number] [facility] 2020-04-24 2020-04-24 Outpatient [facility] [id number] [facility] 2020-04-20 2020-04-20 Outpatient [facility] [id number] [facility] 2020-04-19 2020-04-19 Outpatient [facility] [id number] [facility] 2020-04-18 2020-04-18 Outpatient [facility] [id number] [facility] 2020-04-17 2020-04-17 [facility] [id number] [facility] 2020-04-11 2020-04-11 Outpatient [facility]BL [id number] [facility] 09:07:00 09:07:00 2020-01-26 2020-01-26 [facility] [id number] [facility] 14:36:00 14:36:00 t [email or web address] [facility] - [place] [facility] 2020-01-24 2020-01-24 [facility] [id number] 13:45:00 13:45:00 t [email or web address] [facility] - Drive [facility] l Medicine Outpati ent Clinics 2020-01-19 2020-01-19 [facility] [id number] [facility] 08:40:00 08:40:00 t [email or web address] - [place] [facility] Medicine Outpati ent Clinics 2020-01-18 2020-01-18 [facility] [id number] [facility] 15:20:00 15:20:00 t [email or web address] - Drive [facility] Clin[facility] 2020 2020 [facility] [id number] [facility] 14:44:00 14:44:00 t [place] [employer] [facility] l Medicine Outpati ent Clinics 2020 2020 [facility] [id number] [facility] 09:39:00 09:39:00 [place] [employer] [facility] Clin[facility] 2019-12-24 2019-12-24 [facility] [id number] [facility] 17:41:00 17:41:00 [place] [employer] [facility] Medicine Outpati ent Clinics 2019-12-21 2019-12-21 [facility] [id number] 09:20:00 09:20:00 t [employer] [facility] Out[facility] Clin[facility] 2019-10-27 2019-10-27 [facility] [id number] [facility] 14:08:00 14:08:00 t [employer] [facility] Out[facility] Clin[facility] 2019-10-13 2019-10-13 [facility] [id number] [facility] 11:40:00 11:40:00 t [employer] [facility] Medicine Outpati ent Clinics 2019-10-04 2019-10-04 [facility] [id number] [facility] 08:00:00 08:00:00 t [employer] [facility] Out[facility] Clin[facility] 2019-08-26 2019-08-26 [facility] [id number] [facility] 09:30:00 09:30:00 t [employer] [facility] Medicine l Medicine Outpati ent Clinics 2019-08-25 2019-08-25 [facility] [id number] [facility] 11:51:00 11:51:00 t [employer] [facility] Out[facility] Clin[facility] 2019-08-24 2019-08-24 [facility] [id number] [facility] 14:40:00 14:40:00 [place] [employer] [facility] Out[facility] Clinics 2019-08-17 2019-08-17 [facility] [id number] [facility] 11:59:00 11:59:[address] Luke [address] - Drive [facility] Medicine l Medicine Outpati ent Clinics 2019-07-05 2019-07-05 [facility] [id number] [facility] 16:00:00 16:00:[address] Luke s - [address] [facility] Medicine l Medicine Outpati ent Clinics 2019-06-22 2019-06-22 [facility] [id number] [facility] 11:53:00 11:53:[address] Luke s - Drive [facility] Medicine l Medicine Outpati ent Clinics 2019-06-22 2019-06-22 [facility] [id number] [facility] 10:22:00 10:22:00 t [place] Luke s - Drive [facility] Medicine l Medicine Outpati ent Clinics 2019-05-24 2019-05-24 [facility] [id number] [facility] 10:00:00 10:00:[address] Luke [address] - Drive [facility] Medicine l Medicine Outpati ent Clinics 2019-05-05 2019-05-05 [facility] [id number] [facility] 15:44:00 15:44:00 t [place] Luke s - Drive [facility] Out[facility] Clinics 2019-05-04 2019-05-04 [facility] [id number] 15:20:00 15:20:00 t [place] Luke s - Drive [facility] Medicine l Medicine Outpati ent Clinics 2019-04-27 2019-04-27 [facility] [id number] [facility] 17:18:00 17:18:[address] Luke [address] - Drive [facility] Medicine l Medicine Outpati ent Clinics 2019-04-26 2019-04-26 [facility] [id number] 17:24:00 17:24:[address] Luke s - Drive [facility] Medicine Outpati ent Clinics 2019-04-20 2019-04-20 [facility] [id number] [facility] 08:27:00 08:27:00 [place] [facility] 2019-04-12 2019-04-12 Outpatient Jam Rivera [id number] 11:00:00 11:00:00 [facility] 2019-03-30 2019-03-30 Outpatient Jam Rivera [id number] [facility] 14:00:00 14:00:00 [facility] Results Test Description Test Time Test Comments Results Result Sourc e Comments MM, STEREOTACTIC 2017-04-30 Reason for Addendum BeginsMRN#: BIOPSY, BREAST, 5 Exam:->calcificati [id number]: LEFT 15:59:00 on 05/14/2017 Lizzette Velásquez M.D. 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 Addendum EndsMRN#: [id number] - MM, STEREOTACTIC BIOPSY, BREAST, LEFTSTEREOTACTIC GUIDED [...] correct location, five specimens were obtained using CleanTie device. A clip was inserted into the [...] the calcifications. Lizzette Velásquez M.D. pth/penrad:05/09/2017 11:07:57 Airline Mechanic: Felicia Rizzo RT(R)(M), [facility] [id number] UE EXAM 2017-04-30 Surgical Pathology 3 Report 12:48:00 Case: [id number] Authorizing Provider: Lizzette Velásquez MD Collected: 05/09/2017 1110 Ordering Location: [facility] Received: 05/09/2017 1312 Pathologist: Jackie Maradiaga MD Specimen: Breast, Left, LEFT MIDDLE 12 BREAST CALCIFICATION BREAST, LEFT, MIDDLE 12 O'CLOCK, CALCIFICATIONS, STEREOTACTIC CORE NEEDLE BIOPSY: - HYALINIZED FIBROADENOMA - COLUMNAR CELL HYPERPLASIA - COLUMNAR CELL CHANGES - MICROCALCIFICATIONS, COARSE, ASSOCIATED WITH FIBROADENOMA Signing Pathologist Direct Phone Line: [phone] ally signed by Jackie Maradiaga MD on 05/12/2017 at 12:48 PMIn the sections examined, no atypical hyperplasia or carcinoma is identified.[id number] sing lesion Left middle 12 o'clock breast calcifications The specimen is received in a formalin-filled container labeled with the patient's information and labeled "left middle 12 o'clock breast calcifications" and consists of multiple yellow-white breast core biopsies ranging in length from 0.6 to 2.5 cm.Ink code: Black.The specimen is submitted entirely in A1 and A2. CG/ewPerformed.[facility], Department of Pathology, [address] [place] [id number], MM, DIGITAL, 2017-04-30 Left breast MRN#: UNILATERAL, 0 calcifications [id number] - CONFER MARTA, 11:07:00 MM, DIGITAL, MAMMO, [...] pathology results. Lizzette Velásquez M.D. pth/:05/09/2017 11:07:15 Airline Mechanic: Felicia SCHNEIDER)(Phil), [facility] Mammogram BI-RADS: Post-procedure mammogram for marker placement [id number] , MAMMO, 2017-04-30 Reason for MRN#: SPECIMEN, 0 exam:->Left breast [id number] - RADIOGRAPH, LEFT 11:06:00 calcifications MM, MAMMO, SPECIMEN, RADIOGRAPH, LEFTSPECIMEN LEFT BREAST: 05/09/2017Five stereotactic guided biopsy specimens were imaged for the area of calcifications located in the left breast at 12 o'clock middle depth. IMPRESSION: SPECIMENThe imaged specimens includes the calcifications. Lizzette Velásquez M.D. pth/:05/09/2017 11:06:40 Airline Mechanic: Felicia SCHNEIDER)(M), [facility] [id number]
--- NOTE | 2021-05-29 13:55 | ER ---
Nurse's Notes [facility] Name: Dena Nance Age: 51 yrs Sex: Female : 1970 Arrival Date: 05/29/2021 Time: 10:37 Bed Waiting Private MD: Anette Benjamin Diagnosis: Presentation: 05/29 10:44 Chief complaint: Patient states: intermittent epigastric pain that began 1 week ago. Pt ss reports she has been in touch with her GI doctor who told her to just keep taking her pain medication. Pt states, "I can't just keep taking that every day. It gets worse when I eat. They took out my gallbladder 28 years ago.". Coronavirus screen: Client denies travel out of the [place] in the last 14 days. Ebola Screen: Patient denies exposure to infectious person. Patient denies travel to an Ebola-affected area in the 21 days before illness onset. Initial Sepsis Screen: Does the patient meet any 2 criteria? No. Patient's initial sepsis screen is negative. Does the patient have a suspected source of infection? No. Patient's initial sepsis screen is negative. Risk Assessment: Do you want to hurt yourself or someone else? Patient reports no desire to harm self or others. Onset of symptoms was May 22, 2021. 10:44 Method Of Arrival: Ambulatory ss 10:44 Acuity: MARIANA 3 ss Historical: - Allergies: 10:46 NKA; ss - PMHx: 10:46 cirrhosis of liver; Diabetes - NIDDM; Colitis; Diverticulitis; gastritis; Pancreatitis; ss fatty liver; - PSHx: 10:46 Cholecystectomy; hysterectomy; ss - Immunization history:: Client reports receiving the 2nd dose of the Covid vaccine. - Social history:: Smoking status: Patient denies any tobacco usage or history of. Vital Signs: 10:44 BP 110 / 64; Pulse 85; Resp 16; Temp 98(O); Pulse Ox 100% on R/A; Weight 66.68 kg; ss Height 5 ft. 4 in. (162.56 cm); Pain 10/10; 10:44 Body Mass Index 25.23 (66.68 kg, 162.56 cm) ED Course: 10:37 Patient arrived in ED. mr 10:37 Anette Benjamin MD is Private Physician. mr 10:46 Triage completed. ss 10:46 Arm band placed on right wrist. ss Administered Medications: No medications were administered Outcome: 13:54 Patient left the ED. ld1 Signatures: Deonna Virgen mr Yeni Granados, RN RN Yudith Samano RN RN ld1
[2021-05-29 13:59] VITALS: BP 110/64; TEMP 98; O2SAT 100
== END 2021-05-29 13:54 | disposition left against medical advice (07) ==
LOC: ER 10:35
DX: Z53.21 Procedure and treatment not carried out due to patient leaving prior to being seen by health care provider (principal)
CPT/HCPCS: 99281

== ENCOUNTER 2021-08-18 09:59 | Emergency (ER) | payer OTHER ==
--- OUTSIDE RECORDS SUMMARY | 2021-08-18 10:02 | XMS REPORT | Continuity of Care Document ---
:1970 Author Organization [facility] t Address [address] [place] [address] Care Team Providers Name Role Phone Sharpless Primary Care Physician Theresa Benjamin Attending Clinician Unavailable ROS Attending Clinician Unavailable JAVY Attending Clinician Unavailable AIDA VELÁSQUEZ Attending Clinician Unavailable ROS Admitting Clinician Unavailable JAVY Admitting Clinician Unavailable Payers Payer Name Policy Type Policy Number Effective Date Expiration Date S ource Problems Condition Condition Condition Status Onset Resolution Last Treating Co mments Source Name Details Category Date Date Treatment Clinician Date DX: Diagnosis Active 2020-062021-06-06 Mem oria R10.10=UPP 1-10 16:11:00 l ER DX: 00:00: [place] ABDOMINAL R10.10=UPP 00 PAIN, ER UNSPECI ABDOMINAL PAIN, UNSPECI Active 05/09/2021 [facility] DX: Diagnosis Active 2019-062020-04-11 Mem oria R10.10, 0-07 09:14:00 l R14.0 DX: 00:00: [place] R10.10, 00 R14.0 Active 04/05/2020 [facility] Allergies, Adverse Reactions, Alerts Allergy Allergy Status Severity Reaction(s) Onset Inactive Treating Comm ents Source Name Type Date Date Clinician NO KNOWN Allergy Active [facility] Social History Social Habit Start Date Stop Date Quantity Comments Source Tobacco use and 2017-05-09 2017-05-[address] [facility] [address] [facility] kes - exposure 00:00:00 00:00:00 [facility] Sex Assigned At [birth year] FEDER[facility] Dorans - [facility]:00 [facility] Smoking Status Start Date Stop Date Source Never sm[facility] Medications Ordered Filled Start Stop Current Ordering Indication Dosage Frequency Signature Comments Components Source Medication Medication Date Date Medication? Clinician (SIG) Name Name Sertraline Sertraline 2018-06 Yes Na Benjamin [address] [facility] HCl HCl 2-24 [facility] 2016-06 Yes 10mg QD Take [address] [facility] in 1-10 by mouth [facility] - (JARDIANCE) 10:01: daily. Medi michele 10 mg 13 Center tablet sertraline 2016-06 Yes 50mg QD Take [address] (ZOLOFT) 50 1-10 by mouth Luke s - MG tablet 10:01: daily. [address] 2016-06 Yes 10mg QD Take [address] [facility] in 1-10 by mouth [facility] - (JARDIANCE) 10:01: daily. Medi michele 10 mg 13 Center tablet sertraline 2016-06 Yes 50mg QD Take [address] (ZOLOFT) 50 1-10 by mouth Luke s - MG tablet 10:01: daily. Medica [address] glimepiride 2016-06 Yes 4mg Take [address] (AMARYL) 4 1-10 by mouth 2 [facility] es - MG tablet 10:01: (two) Medical 12 times Center daily before meals. metFORMIN 2016-06 Yes 500mg Take [address] [facility] (GLUCOPHAGE 1-10 mg by [facility] - ) 500 MG 10:01: mouth 2 Medica l tablet 12 (two) Center times daily with breakfast and dinner. glimepiride 2016-06 Yes 4mg Take [address] (AMARYL) 4 1-10 by mouth 2 [facility] - MG tablet 10:01: (two) Medical 12 times Center daily before meals. metFORMIN 2016-06 Yes 500mg Take [address] [facility] (GLUCOPHAGE 1-10 mg by [facility] - ) 500 MG 10:01: mouth 2 Medica l tablet 12 (two) Center times daily with breakfast and dinner. Metformin Metformin Yes Na Benjamin [address] [facility] HCl HCl with a [facility] - meal [facility] Immunizations Ordered Filled Immunization Date Status Comments Sour e Immunization Name Name Evette Alas - 2019-03-[address] [facility] - multidose vial multidose vial 00:00:00 [facility] Procedures This patient has no known procedures. Encounters Start End Encounter Admission Attending Care Care Encounter Source Date/Time Date/Time Type Type Clinicians Facility Department ID 2021-07-25 Outpatient Benjamin Anette STLMLC STLMLC [id number] [facility] [address] 14:33[facility]29 [facility] 2021-07-25 Outpatient Benjamin Anette STLMLC STLMLC [id number] [facility] 14:24:24 [id number] [facility] 2021-07-25 Outpatient Benjamin, Anette STLC STLMLC [id number] [facility] [address] 13:57:58 [id number] [facility] 2021-07-25 Outpatient Benjamin Anette STLC STLMLC [id number] [facility] 13:56:51 [id number] [facility] 2021-07-25 Outpatient Benjamin Anette STLC STLMLC [id number] [facility] 13:47:46 [id number] [facility] 2021-07-25 Outpatient Benjamin, Anette STLC STLMLC [id number] [facility] 12:48:36 [id number] [facility] 2021-07-25 Outpatient Benjamin Anette STLMLC STLMLC [id number] [facility] [address] 12:33:46 [id number] [facility] 2021-07-25 Outpatient Benjamin Anette STLMLC STLMLC [id number] [facility] [address] 12:31:18 [id number] [facility] 2021-07-25 Outpatient Benjamin, Na STLMLC STLMLC [id number] [facility] [address] 12:26:58 [id number] [facility] 2021-07-25 Outpatient Benjamin, Na STLMLC STLMLC [id number] [facility] [address] 12:09:32 [id number] [facility] 2021-07-25 Outpatient Benjamin, Na STLMLC STLMLC [id number] [facility] [address] 12:02:06 [id number] [facility] 2021-07-25 Outpatient Benjamin, Na STLMLC STLMLC [id number] [facility] 12:01:44 [id number] [facility] 2021-07-25 Outpatient Benjamin, Na STLMLC STLMLC [id number] [facility] 11:58:40 [id number] [facility] 2021-07-25 Outpatient Benjamin, Na STLMLC STLMLC [id number] [facility] 11:57:47 [id number] [facility] 2021-07-25 Outpatient Benjamin, Na STLMLC STLMLC [id number] [facility] 11:57:12 [id number] [facility] 2021-07-25 Outpatient Benjamin, Na STLMLC STLMLC [id number] [facility] 11:56:42 [id number] [facility] 2021-07-25 Outpatient Benjamin, Na STLMLC STLMLC [id number] [facility] 11:55:04 [id number] [facility] 2021-07-25 Outpatient Benjamin, Na STLMLC STLMLC [id number] [facility] [address] 11:32:26 [id number] [facility] 2021-07-25 Outpatient Benjamin, Na STLMLC STLMLC [id number] [facility] 11:32:11 [id number] [facility] 2021-07-25 Outpatient Benjamin, Na STLMLC STLMLC [id number] [facility] [address] 11:30:56 [id number] [facility] 2021-07-25 Outpatient Benjamin, Na STLMLC STLMLC [id number] [facility] 11:24:01 [id number] [facility] 2021-07-25 Outpatient Benjamin, Na STLMLC STLMLC [id number] [facility] [address] 11:16:56 [id number] [facility] 2021-07-25 Outpatient Benjamin, Na STLMLC STLMLC [id number] [facility] 11:10:23 [id number] [facility] 2021-07-25 Outpatient Benjamin, Na STLMLC STLMLC [id number] [facility] [address] 11:09:28 [id number] [facility] 2021-07-25 Outpatient Benjamin, Na STLMLC STLMLC [id number] [facility] 10:58:23 [id number] [facility] 2021-07-25 Outpatient Benajmin, Na STLMLC STLMLC [id number] [facility] [address] 10:57:38 [id number] [facility] 2021-05-16 Outpatient LIZBETH SOMMER MHSE [id number] [facility] 12:43:[address] [facility] [address] [facility] 2021-05-21 2021-05-21 ambulatory STLMLC STLMLC [id number] [facility] 2021-05-21 2021-05-21 ambulatory STLMLC STLMLC [id number] [facility] 2021-05-16 2021-05-[address] [facility] [id number] Memoria 18:45:00 05:59:[address] 2021-05-16 2021-05-16 Outpatient ROSIO SOMMERSE MHSE [id number] 12:45:00 23:59:00 [facility] 2021-04-05 2021-04-05 Outpatient STLMLC STLMLC [id number] [facility] 2021-03-08 2021-03-08 Outpatient STLMLC STLMLC [id number] [facility] 2021-01-29 2021-01-29 Outpatient STLMLC [facility]LML[facility] [id number] [facility] 2021-01-17 2021-01-17 Outpatient STLMLC [facility]C [id number] [facility] 2021-01-03 2021-01-03 Outpatient STLMLC [facility] [id number] [facility] 2021-01-02 2021-01-02 Outpatient STLMLC [facility] [id number] [facility] 2020-12-04 2020-12-04 Outpatient STLMLC STLMLC [id number] [facility] 2020-11-16 2020-11-16 Outpatient STLMLC STLMLC [id number] [facility] 2020-11-06 2020-11-06 Outpatient STLMLC STLMLC [id number] [facility] 2020-10-03 2020-10-03 Outpatient STLMLC [facility]LMLC [id number] [facility] 2020-09-28 2020-09-28 Outpatient STLMLC STLMLC [id number] [facility] 2020-08-24 2020-08-24 Outpatient STLMLC STLMLC [id number] [facility] 2020-08-17 2020-08-17 Outpatient STLMLC STLMLC [id number] [facility] 2020-08-11 2020-08-11 [facility] [id number] [facility] 2020-08-03 2020-08-03 [facility] [id number] [facility] 2020-07-31 2020-07-31 [facility] [id number] [facility] 2020-06-26 2020-06-26 [facility] [id number] [facility] 2020-06-20 2020-06-20 Outpatient FERGUSON_JO MEHOP MEHOP [id number] [place] 10:21:00 [place] [id number] [facility] 2020-06-15 2020-06-15 [facility] [id number] [facility] 2020-06-14 2020-06-14 [facility] [id number] [facility] 2020-06-12 2020-06-12 [facility] [id number] [facility] 2020-06-07 2020-06-07 Outpatient FERGUSON_JO MEHOP MEHOP [id number] [place] 03:50:00 03:50[place] [id number] [facility] 2020-06-07 2020-06-07 Outpatient FERGUSON_JO MEHOP MEHOP [id number] [place] 03:50:00 03:50:00 [place] [id number] [facility] 2020-06-01 2020-06-01 [facility] [id number] [facility] 2020-05-29 2020-05-29 Outpatient STLMLC [facility] [id number] [facility] 2020-05-08 2020-05-08 Outpatient STLMLC [facility] [id number] [facility] 2020-05-04 2020-05-04 Outpatient [facility]LMLC [facility] [id number] [facility] 2020-04-24 2020-04-24 Outpatient STLMLC [facility] [id number] [facility] 2020-04-20 2020-04-20 Outpatient STLMLC [facility] [id number] [facility] 2020-04-19 2020-04-19 Outpatient [facility]MLC [facility] [id number] [facility] 2020-04-18 2020-04-18 Outpatient STLMLC [facility] [id number] [facility] 2020-04-17 2020-04-17 Outpatient STLMLC [facility] [id number] [facility] 2020-04-11 2020-04-[address] [facility] [id number] [facility] 14:07:00 04:59:00 [place] [address] l [facility] 2020-04-11 2020-04-11 Outpatient GOGIA, MHBL MHBL [id number] MHBL 09:07:00 23:59:00 [facility] 2020-01-26 2020-01-26 [facility] [id number] [address] 14:36:00 14:36:00 t [employer] [place] [facility] [address] [facility] Outpat[facility] ent Clinics 2020-01-24 2020-01-24 [facility] [id number] 13:45:00 13:45:00 t [employer] [facility] Medicine Outpati ent Clinics 2020-01-19 2020-01-19 [facility] [id number] 08:40:00 08:40:00 t [employer] [facility] Medicine Outpati ent Clinics 2020-01-18 2020-01-18 [facility] [id number] 15:20:00 15:20:00 t [employer] s Bre[employer] [facility] Medicine Outpati ent Clinics 2020 2020 [facility] [id number] 14:44:00 14:44:00 t Narrative Science [facility] l Medicine Outpati ent Clinics 2020 2020 [facility] [id number] 09:39:00 09:39:00 t [employer] s Bre[employer] [facility] Medicine Outpati ent Clinics 2019-12-24 2019-12-24 [facility] [id number] 17:41:00 17:41:00 [address] [employer] [facility] Medicine Outpati ent Clinics 2019-12-21 2019-12-21 [facility] [id number] 09:20:00 09:20:00 t [employer] s [employer] [facility] Medicine Outpati ent Clinics 2019-10-27 2019-10-27 [facility] [id number] 14:08:00 14:08:00 t [employer] s [employer] [facility] Medicine Outpati ent Clinics 2019-10-13 2019-10-13 [facility] [id number] [facility] 11:40:00 11:40:00 [address] N[address] [facility] Medicine Outpati ent Clinics 2019-10-04 2019-10-04 [facility] [id number] 08:00:00 08:00:00 t [employer] [facility] Medicine Outpati ent Clinics 2019-08-26 2019-08-26 [facility] [id number] 09:30:00 09:30:00 t Friendship [employer] [facility] l Medicine Outpati ent Clinics 2019-08-25 2019-08-25 [facility] [id number] 11:51:00 11:51:00 t Friendship [employer] s - Drive [facility] Medicine l Medicine Outpati ent Clinics 2019-08-24 2019-08-24 [facility] [id number] [facility] 14:40:00 14:40:00 t [employer]ship [employer] [facility] Medicine l Medicine Outpati ent Clinics 2019-08-17 2019-08-17 [facility] [id number] 11:59:00 11:59:00 t [employer] [facility] Medicine l Medicine Outpati ent Clinics 2019-07-05 2019-07-05 [facility] [id number] 16:00:00 16:00:00 t [employer] [facility] Medicine l Medicine Outpati ent Clinics 2019-06-22 2019-06-22 [facility] [id number] 11:53:00 11:53:00 t [employer] [facility] Medicine l Medicine Outpati ent Clinics 2019-06-22 2019-06-22 [facility] [id number] 10:22:00 10:22:00 t [employer] [facility] Medicine l Medicine Outpati ent Clinics 2019-05-24 2019-05-24 [facility] [id number] 10:00:00 10:00:00 t [employer] [facility] Medicine l Medicine Outpati ent Clinics 2019-05-05 2019-05-05 [facility] [id number] 15:44:00 15:44:00 t [employer] [facility] Medicine l Medicine Outpati ent Clinics 2019-05-04 2019-05-04 [facility] [id number] 15:20:00 15:20:00 t Friendship [employer] [facility] Medicine l Medicine Outpati ent Clinics 2019-04-27 2019-04-27 [facility] [id number] 17:18:00 17:18:00 [facility] 2019-04-26 2019-04-26 [facility] [id number] 17:24:00 17:24:00 [facility] ent Clinics 2019-04-20 2019-04-20 [facility] [id number] 08:27:00 08:27:00 [facility] Outpati ent Clinics 2019-04-12 2019-04-12 [facility] [id number] 11:00:00 11:00:00 [facility] ent Clinics 2019-03-30 2019-03-30 Outpatient Jam Polkt [id number] 14:00:00 14:00:00 [facility] ent [facility] Results Test Description Test Time Test Comments Results Result Comments Source CHEM PANEL 2021-05-16 20:32:00 Test Item Value Reference Range Interpretation Comme nts eGFR (test code = eGFR) 105 [facility] [id number] 20:32:00 Test Item Value Reference Range Interpretation Comments POC Creatinine (test code = POC 0.6 0.5-1.4 Creatinine) [facility], STEREOTACTIC BIOPSY, BREAST, [id number] 15:59:00Reason for Exam:->calcificationAddendum BeginsN#: [id number]: 05/14/2017 Lizzette Velásquez M.D. 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 Addendum EndsMRN#: [id number] - MM, STEREOTACTIC BIOPSY, BREAST, LEFTSTEREOTACTIC GUIDED BIOPSY LEFTBREAST WITH MARKING DEVICE INSERTED AND POST DIGITAL MAMMOGRAPHIC IMAGING AND RADIOGRAPHIC SPECIMEN IMAGIN05/09/2017PATIENT CONSENT: The procedure, risks, benefits and alternatives were discussed with the patient. Informed consent was obtained. A stereotactic guided biopsy was performed for the area of calcifications located in the left breast at 12 o'clock middle depth. The skin was prepped inthe usual manner. Local anesthetic was administered to [...] correct location, five specimens were obtained using FrontierreIVA device. A clip was inserted into the biopsy cavity. Post procedure digital mammographic imaging demonstrates the clip atthe targeted area. The specimens were sent to the laboratory for pathological analysis. IMPRESSION: STEREOTACTIC GUIDED BIOPSYStereotactic guided biopsy of the area of calcifications in the left sweetie ast at 12 o'clock middle depth was successful with no apparent post procedure complications. The imaged specimens includes the calcifications. Lizzette Velásquez M.D. pth/penrad:05/09/2017 11:07:57 Clerk Of Scales: Felicia Rizzo RT(R)(M), [facility] [id number] TISSUE EXAM 2017-05-12 12:48:00Surgical Pathology Report Case: [id number] Authorizing Provider: Lizzette Velásquez MD Collected: 05/09/2017 1110 Ordering Location: [facility] Received: 05/09/2017 1312 Pathologist: Jackie Maradiaga MD Specimen: Breast, Left, LEFT MIDDLE 12 BREAST CALCIFICATION BREAST, LEFT, MIDDLE 12 O'CLOCK, CALCIFICATIONS, STEREOTACTIC CORE NEEDLE BIOPSY: - HYALINIZED FIBROADENOMA - COLUMNAR CELL HYPERPLASIA - COLUMNAR CELL CHANGES - MICROCALCIFICATIONS, COARSE, ASSOCIATED WITH FIBROADENOMA Signing Pathologist Direct Phone Line: [phone] signed by Jackie Maradiaga MD on 05/12/2017 at 12:48 PMIn the sections examined, no atypical hyperplasia or carcinoma is identified.[id number] lesion Left middle 12 o'clock breast calcifications The specimen is received in a formalin-filled container labeled with the patient's information and labeled "leftmiddle 12 o'clock breast calcifications" and consists of multiple yellow-white breast core biopsies ranging in length from 0.6 to 2.5 cm.Ink code: Black.The specimen is submitted entirely in A1 and A2.CG/ewPerformed.[facility], Department of Pathology, [address] [place] [address], [place] [address], VJ, DIGITAL, UNILATERAL, CONFER MARTA, MAMMO, LEFT INCLUDING [id number] 11:07:00Left breast calcificationsMRN#: [id number] - MM, DIGITAL, UNILATERAL, CONFER MARTA, MAMMO, LEFT INCLUDING CADUNILATERAL LEFT DIGITAL PROBLEM SOLVING MAMMOGRAM POST- PROCEDURE IMAGING FOR MARKER PLACEMENT: 05/09/2017 The tissue of the left breast is heterogeneously dense. This may lower the sensitivity of mammography. The post procedure mammogram was performed on a separate mammography unit.A clip is placed at the biopsysite. IMPRESSION: POST PROCEDURE MAMMOGRAM FOR MARKER PLACEMENTAwait pathology results. Lizzette Velásquez M.D. pth/:05/09/2017 11:07:15 Clerk Of Scales: Felicia IRVIN (R)), [facility] Mammogram BI-RADS: Post-procedure mammogram for marker placement [id number] MM, MAMMO, SPECIMEN, RADIOGRAPH, LEFT 2017-05-09 11:06:00Reason for exam:->Left breast calcificationsMRN#: [id number] - MM, MAMMO, SPECIMEN, RADIOGRAPH, LEFTSPECIMEN LEFT BREAST: 05/09/2017Five stereotactic guided biopsy specimens were imaged for the area of calcifications located in the left breast at 12 o'clock middle depth. IMPRESSION: SPECIMENThe imaged specimens includes the calcifications. Lizzette Velásqeuz M.D. pth/:05/09/2017 11:06:40 Clerk Of Scales: Felicia IRVIN (R)), [facility] [id number]
[2021-08-18 11:16] LABS: Absolute Lymphocytes (CBC) 1.3 K/uL (0.7-4.9); Hematocrit 39.3 % (36.0-45.0); Lymphocytes % 15.2 % (15.3-44.8); MPV 7.8 fL (7.6-11.3); RBC Red Blood Cell Count 4.69 M/uL (3.86-4.86)
[2021-08-18] MEDS ORDERED: NA CHLORIDE 0.9% 1,000 ML ONE (11:23)
[2021-08-18] MEDS ORDERED: MAGNES/ALUMIN/SIMET 30ML UCUP ONE (11:29)
[2021-08-18] MEDS ORDERED: MORPHINE 4 MG/ML SYR ONE ×2 (11:29→13:30)
[2021-08-18] MEDS ORDERED: ONDANSETRON 4 MG/2 ML VIAL ONE (11:29)
[2021-08-18] MEDS ORDERED: LIDOCAINE VISCOUS 2% SOLN 15 ML UDC ONE (11:30)
[2021-08-18 11:32] LABS: Albumin 3.6 g/dL (3.4-5.0); Bilirubin Direct 0.2 mg/dL (0-0.2); Bilirubin Total 0.6 mg/dL (0.2-1.0); Protein, Total 7.9 g/dL (6.4-8.2)
--- NOTE | 2021-08-18 12:07 | RAD REPORT ---
EXAM DESCRIPTION: CT - Abdomen Pelvis W Contrast - 08/18/2021 11:54 am CLINICAL HISTORY: ABD PAIN COMPARISON: Abdomen Pelvis W Contrast dated 03/31/2021; Abdomen Pelvis W Contrast dated 0 TECHNIQUE: Biphasic, helical CT imaging of the abdomen and pelvis was performed following 100 ml non -ionic IV contrast. No oral contrast administered. All CT scans are performed using dose optimization technique as appropriate and may include automated exposure control or mA/KV adjustment according to patient size. FINDINGS: No suspicious findings in the lung bases. The liver, spleen, and pancreas show no suspicious focal findings. Liver attenuation suggests a mild diffuse fatty infiltration. No portal vein abnormality. Cholecystectomy clips are present with no abn ormal biliary tree dilatation. Symmetric renal function is seen with no hydronephrosis or suspicious renal mass. No pyelonephritis o r acute parenchymal process. Urinary bladder is mostly contracted limiting assessment. No adrenal abn ormalities. Uterus is absent. No ovarian abnormality seen. No acute stomach or small bowel finding. No appendicitis. Colon is not dilated. Moderate stool volume is present. Rectosigmoid tortuosity noted. Mild mucosal level inflammatory bowel changes could be pr esent an occult to CT imaging. No free air, free fluid or inflammatory stranding. No hernia, mass o r bulky lymphadenopathy. No suspicious bony findings. IMPRESSION: Contrast enhanced CT abdomen and pelvis showing no acute or emergent finding. Mucosal le abad inflammatory bowel changes could be still present and occult to CT imaging. Above detailed findings are not significantly different from prior imaging.
[2021-08-18 12:32] LABS: Blood Morphology Comment NOT SEEN (NOT SEEN); Platelet Estimate DECR; White Blood Cell Scan OK (OK)
--- NOTE | 2021-08-18 12:44 | ER ---
Nurse's Notes [facility] Name: Dena Nance Age: 51 yrs Sex: Female : 1970 Arrival Date: 08/18/2021 Time: 09:59 Bed 2 Private MD: Anette Benjamin Diagnosis: Upper abdominal pain, unspecified Presentation: 08/18 10:32 Chief complaint: Patient states: "I have pain right here in my stomach that goes to the ab2 left side and into my back. Its been going on for 3 days but today is the worst, I do have a hernia there. My doctor just told me to keep taking my pain meds.". Coronavirus screen: Vaccine status: Patient reports receiving the 2nd dose of the covid vaccine. Client denies travel out of the [place] in the last 14 days. At this time, the client does not indicate any symptoms associated with coronavirus-19. Ebola Screen: Patient negative for fever greater than or equal to 101.5 degrees Fahrenheit, and additional compatible Ebola Virus Disease symptoms Patient denies exposure to infectious person. Patient denies travel to an Ebola-affected area in the 21 days before illness onset. No symptoms or risks identified at this time. Initial Sepsis Screen: Does the patient meet any 2 criteria? No. Patient's initial sepsis screen is negative. Does the patient have a suspected source of infection? No. Patient's initial sepsis screen is negative. Risk Assessment: Do you want to hurt yourself or someone else? Patient reports no desire to harm self or others. Onset of symptoms is unknown. 10:32 Method Of Arrival: Ambulatory ab2 10:32 Acuity: MARIANA 3 ab2 Triage Assessment: 10:36 General: Appears in no apparent distress. uncomfortable, Behavior is calm, cooperative, ab2 appropriate for age. Pain: Complains of pain in epigastric area Pain currently is 10 out of 10 on a pain scale. Quality of pain is described as aching. GI: Reports upper abdominal pain, diarrhea, nausea. 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 - Social history:: Smoking status: Patient denies any tobacco usage or history of. - Family history:: not pertinent. - Hospitalizations: : No recent hospitalization is reported. Screenin:37 Abuse screen: Denies threats or abuse. Denies injuries from another. Nutritional ab2 screening: No deficits noted. Tuberculosis screening: No symptoms or risk factors identified. Fall Risk None identified. Assessment: 11:40 General: Appears in no apparent distress. uncomfortable, Behavior is calm, cooperative, jd3 appropriate for age. Pain: Complains of pain in abdomen Quality of pain is described as aching, tender. Neuro: Level of Consciousness is awake, alert, obeys commands, Oriented to person, place, time, situation. Cardiovascular: Capillary refill < 3 seconds Patient's skin is warm and dry. Respiratory: Airway is patent Respiratory effort is even, unlabored, Respiratory pattern is regular, symmetrical, Denies cough, shortness of breath. GI: Abdomen is non-distended, Abd is soft X 4 quads Abdomen is tender to palpation X 4 quads. Reports lower abdominal pain, upper abdominal pain. : No signs and/or symptoms were reported regarding the genitourinary system. EENT: No signs and/or symptoms were reported regarding the EENT system. Derm: Skin is intact, Skin is dry, Skin is normal, Skin temperature is warm. Musculoskeletal: Circulation, motion, and sensation intact. Range of motion: intact in all extremities. 13:00 Reassessment: Patient appears in no apparent distress at this time. No changes from jd3 previously documented assessment. Patient and/or family updated on plan of care and expected duration. Pain level reassessed. Patient is alert, oriented x 3, equal unlabored respirations, skin warm/dry/pink. pt reporting the pain medication did not help. provider notified. no new orders at this time. Vital Signs: 10:32 BP 120 / 67; Pulse 93; Resp 16; Temp 98.5(O); Pulse Ox 98% ; Weight 66.68 kg; Height 5 ab2 ft. 4 in. (162.56 cm); Pain 10/10; 11:43 Pulse 92; Resp 18 S; Pulse Ox 98% on R/A; jd3 13:00 BP 107 / 52; Pulse 85; Resp 16 S; Pulse Ox 98% on R/A; jd3 10:32 Body Mass Index 25.23 (66.68 kg, 162.56 cm) ab2 ED Course: 09:59 Patient arrived in ED. as 09:59 Anette Benjamin MD is Private Physician. as 10:35 Triage completed. ab2 10:37 Arm band placed on left wrist. ab2 10:41 Roberto Alejo MD is Attending Physician. rn 11:08 Initial lab(s) drawn, by me, sent to lab. Inserted saline lock: 20 gauge in left jl7 antecubital area, using aseptic technique. Blood collected. 11:17 Jin Gonzalez, SHADE is Primary Nurse. jd3 11:43 Patient has correct armband on for positive identification. Bed in low position. Call jd3 light in reach. Side rails up X 1. Adult w/ patient. 11:53 CT Abd/Pelvis - IV Contrast Only In Process Unspecified. EDMS 13:36 No provider procedures requiring assistance completed. IV discontinued, intact, jd3 bleeding controlled, No redness/swelling at site. Pressure dressing applied. Administered Medications: 11:23 Drug: NS 0.9% 1000 ml Route: IV; Rate: 1000 ml; Site: right antecubital; jd3 12:20 Follow up: Response: No adverse reaction; IV Status: Completed infusion jd3 11:37 Drug: morphine 4 mg Route: IVP; Site: left antecubital; jd3 12:30 Follow up: Response: No adverse reaction; RASS: Alert and Calm (0) jd3 11:38 Drug: GI Cocktail without - (Maalox Suspension 30 ml, Lidocaine Liquid 2 % 15 jd3 ml) Route: PO; 12:20 Follow up: Response: No adverse reaction jd3 11:39 Not Given (Other Intervention Used): Zofran (Ondansetron) 4 mg PO once jd3 11:40 Drug: Zofran (Ondansetron) 4 mg Route: IVP; Site: left antecubital; jd3 12:40 Follow up: Response: No adverse reaction jd3 13:33 Drug: morphine 4 mg Route: IVP; Site: left antecubital; jd3 Outcome: 12:43 Discharge ordered by . rn 13:36 Discharged to home ambulatory, with family. jd3 13:36 Condition: stable 13:36 Discharge instructions given to patient, Instructed on discharge instructions, follow up and referral plans. Demonstrated understanding of instructions, follow-up care. 13:40 Patient left the ED. jl7 Signatures: Dispatcher [employer] Myranda Reis Roman, MD MD rn Leal, Jahala, RN RN jl7 Jin Gonzalez RN RN jJame Sheppard Corrections: (The following items were deleted from the chart) 11:38 11:37 morphine 4 mg IVP in right antecubital jd3 jd3
--- NOTE | 2021-08-18 12:44 | EDPHYS ---
Physician Documentation [facility] Name: Dena Nance Age: 51 yrs Sex: Female : 1970 Arrival Date: 08/18/2021 Time: 09:59 Bed 2 Private MD: Anette Bnejamin ED Physician Roberto Alejo HPI: 08/18 11:40 This 51 yrs old Female presents to ER via Ambulatory with complaints of rn Epigastric Pain. 11:40 The patient presents with abdominal pain in the epigastric area. Onset: The rn symptoms/episode began/occurred 3 day(s) ago. The symptoms radiate to back. Associated signs and symptoms: Pertinent positives: diarrhea, nausea, Pertinent negatives: blood in stools, shortness of breath, vomiting, vomiting blood. The symptoms are described as crampy, intermittent, sharp. Modifying factors: The symptoms are alleviated by nothing, the symptoms are aggravated by pressure, touching the area. Severity of pain: At its worst the pain was moderate in the emergency department the pain is unchanged. The patient has experienced similar episodes in the past. The patient has not recently seen a physician. Pt reports has had this pain in past, feels different from pancreatitis. 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 - Social history:: Smoking status: Patient denies any tobacco usage or history of. - Family history:: not pertinent. - Hospitalizations: : No recent hospitalization is reported. ROS: 12:39 Constitutional: Negative for fever, chills, and weight loss, Eyes: Negative for injury, rn pain, redness, and discharge, Neck: Negative for injury, pain, and swelling, Cardiovascular: Negative for chest pain, palpitations, and edema, Respiratory: Negative for shortness of breath, cough, wheezing, and pleuritic chest pain, Abdomen/GI: + abd pain and nausea, + diarrhea Back: Negative for injury : Negative for injury, bleeding, discharge, and swelling, MS/Extremity: Negative for injury and deformity, Skin: Negative for injury, rash, and discoloration, Neuro: Negative for headache, weakness, numbness, tingling, and seizure. Exam: 12:39 Constitutional: This is a well developed, well nourished patient who is awake, alert, university internship to room without difficulty or assistance. Head/Face: Normocephalic, atraumatic. Eyes: Periorbital areas with no swelling, redness, or edema. Cardiovascular: Regular rate and rhythm. No pulse deficits. Respiratory: No increased work of breathing, no retractions or nasal flaring. Abdomen/GI: soft, mild epigastric tenderness, no rebound Skin: Warm, dry MS/ Extremity: Pulses equal, no cyanosis. Neuro: Awake and alert, GCS 15 Vital Signs: 10:32 BP 120 / 67; Pulse 93; Resp 16; Temp 98.5(O); Pulse Ox 98% ; Weight 66.68 kg; Height 5 ab2 ft. 4 in. (162.56 cm); Pain 10/10; 11:43 Pulse 92; Resp 18 S; Pulse Ox 98% on R/A; jd3 13:00 BP 107 / 52; Pulse 85; Resp 16 S; Pulse Ox 98% on R/A; jd3 10:32 Body Mass Index 25.23 (66.68 kg, 162.56 cm) ab2 MDM: 10:41 Patient medically screened. rn 12:42 Differential diagnosis: bowel obstruction, gastritis, gastroesophageal reflux disease, rn non-specific abd pain, pancreatitis, Peptic Ulcer Disease. Data reviewed: vital signs, nurses notes, lab test result(s), radiologic studies, CT scan, and as a result, I will discharge patient. Counseling: I had a detailed discussion with the patient and/or guardian regarding: the historical points, exam findings, and any diagnostic results supporting the discharge/admit diagnosis, lab results, radiology results, the need for outpatient follow up, to return to the emergency department if symptoms worsen or persist or if there are any questions or concerns that arise at home. Response to treatment: the patient's symptoms have mildly improved after treatment, and as a result, I will discharge patient. Special discussion: Based on the patient's Hx, exam, and Dx evaluation, there is no indication for emergent surgery or inpatient Tx. It is understood by the patient/guardian that if the Sx's persist or worsen they need to return immediately for re-evaluation. I discussed with the patient/guardian in detail that at this point there is no indication for admission to the hospital. It is understood, however, that if the symptoms persist or worsen the patient needs to return immediately for re-evaluation. Based on the history and exam findings, there is no indication for further emergent testing or inpatient evaluation. I discussed with the patient/guardian the need to see the power builder developer for further evaluation of the symptoms. ED course: Pt improved, no acute findings in blood or ct abdomen. . 08/18 10:46 Order name: Basic Metabolic Panel; Complete Time: 11:36 rn 08/18 10:46 Order name: CBC with Diff rn 08/18 10:46 Order name: Hepatic Function; Complete Time: 11:36 rn 08/18 10:46 Order name: Lipase; Complete Time: 11:36 rn 08/18 10:46 Order name: CT Abd/Pelvis - IV Contrast Only; Complete Time: 12:39 rn 08/18 12:32 Order name: CBC Smear Scan EDMS 08/18 10:46 Order name: IV Saline Lock; Complete Time: 11:01 rn 08/18 10:46 Order name: Labs collected and sent; Complete Time: 11: rn 08/18 11:24 Order name: O2 Sat Monitoring; Complete Time: 11:24 jl7 Administered Medications: 11:23 Drug: NS 0.9% 1000 ml Route: IV; Rate: 1000 ml; Site: right antecubital; jd3 12:20 Follow up: Response: No adverse reaction; IV Status: Completed infusion jd3 11:37 Drug: morphine 4 mg Route: IVP; Site: left antecubital; jd3 12:30 Follow up: Response: No adverse reaction; RASS: Alert and Calm (0) jd3 11:38 Drug: GI Cocktail without - (Maalox Suspension 30 ml, Lidocaine Liquid 2 % 15 jd3 ml) Route: PO; 12:20 Follow up: Response: No adverse reaction jd3 11:39 Not Given (Other Intervention Used): Zofran (Ondansetron) 4 mg PO once jd3 11:40 Drug: Zofran (Ondansetron) 4 mg Route: IVP; Site: left antecubital; jd3 12:40 Follow up: Response: No adverse reaction jd3 13:33 Drug: morphine 4 mg Route: IVP; Site: left antecubital; jd3 Disposition Summary: 08/18/21 12:43 Discharge Ordered Location: Home rn Problem: new rn Symptoms: have improved rn Condition: Stable rn Diagnosis - Upper abdominal pain, unspecified rn Followup: rn - With: Private Physician - When: As needed - Reason: Recheck today's complaints, Re-evaluation by your physician Discharge Instructions: - Discharge Summary Sheet rn - Abdominal Pain, Adult rn Forms: - Medication Reconciliation Form rn - Thank You Letter rn - Antibiotic burn nurse - Prescription Opioid Use rn - Work release form jd3 Signatures: Dispatcher [employer] EDMS Roberto Alejo MD MD rn Leal, Jahala, RN RN jl7 Jin Gonzalez RN RN jd3 Jame Dangelo Corrections: (The following items were deleted from the chart) 12:40 12:39 Constitutional: Negative for fever, chills, and weight loss, Eyes: Negative for rn injury, pain, redness, and discharge, Neck: Negative for injury, pain, and swelling, Cardiovascular: Negative for chest pain, palpitations, and edema, Respiratory: Negative for shortness of breath, cough, wheezing, and pleuritic chest pain, Abdomen/GI: + abd pain and nausea, + diarrhea Back: Negative for injury and pain, : Negative for injury, bleeding, discharge, and swelling, MS/Extremity: Negative for injury and deformity, Skin: Negative for injury, rash, and discoloration, Neuro: Negative for headache, weakness, numbness, tingling, and seizure, rn
[2021-08-18 13:53] VITALS: TEMP 98.5; O2SAT 98
[2021-08-18 13:56] VITALS: BP 107/52
== END 2021-08-18 13:40 | disposition home or self-care (01) ==
LOC: ER 09:59
DX: R10.13 Epigastric pain (principal)
CPT/HCPCS: 96361; 85025; 80048; 36415; 80076; 83690; 74177; 96375; 96374; 99284; Q9967; J7030; J2405

== ENCOUNTER 2021-09-03 09:33 | Emergency (ER) | payer OTHER ==
--- OUTSIDE RECORDS SUMMARY | 2021-09-03 09:36 | XMS REPORT | Continuity of Care Document ---
:1970 Author Organization [facility] t Address [address] [place] [address] Care Team Providers Name Role Phone Sharpless [...] R10.10=UPP 1-10 16:11:00 l ER DX: 00:00: [place] ABDOMINAL R10.10=UPP 00 PAIN, ER UNSPECI ABDOMINAL PAIN, UNSPECI Active 05/09/2021 [facility] DX: Diagnosis Active 2019-062020-04-11 Mem oria R10.10, 0-07 09:14:00 l R14.0 DX: 00:00: [place] R10.10, 00 R14.0 Active 04/05/2020 [facility] Allergies, Adverse Reactions, Alerts Allergy Allergy Status Severity Reaction(s) Onset Inactive Treating Comm ents Source Name Type Date Date Clinician NO KNOWN Allergy Active [facility] Social History Social Habit Start Date Stop Date Quantity Comments Source Tobacco use and 2017-05-09 2017-05-09 Never used [facility] [place] - exposure 00:00:00 00:00:00 [facility] Sex Assigned At [birth year] [facility] [place] [facility] Smoking Status Start Date Stop Date Source Never smoker [facility] - [facility] Medications Ordered Filled Start Stop Current Ordering Indication Dosage Frequency Signature Comments Components Source Medication Medication Date Date Medication? Clinician (SIG) Name Name Sertraline Sertraline 2018-06 Yes Na Benjamin [address] [facility] HCl HCl 2-24 [facility] Yes 10mg QD Take [address] [facility] in 1-10 by mouth [facility] - (JARDIANCE) 10:01: daily. Medi michele 10 mg 13 Center tablet sertraline 2016-06 Yes 50mg QD Take [address] (ZOLOFT) 50 1-10 by mouth [facility] - MG [facility] [address] [facility]-06 Yes 10mg QD Take [address] [facility] in 1-10 by mouth [facility] (JARDIANCE) 10:01: daily. Medi michele 10 mg 13 Center tablet sertraline 2016-06 Yes 50mg QD Take [address] (ZOLOFT) 50 1-10 by mouth [facility] - MG tablet 10:01[facility] [address] glimepiride 2016-06 Yes 4mg Take 4 [...] breakfast and dinner. Metformin Metformin Yes Na Sourav [address] [facility] HCl HCl with a [facility] - [facility] Immunizations Ordered Filled Immunization Date Status Comments [facility] Immunization Name Name Evette Alas - 2019-03-[address] [facility] - multidose vial multidose vial 00:00:00 [facility] Procedures This patient has no known procedures. Encounters Start End Encounter Admission Attending Care Care Encounter Source Date/Time Date/Time Type Type Clinicians Facility Department ID 2021-08-21 Outpatient Anette Benjamin STLMLC STLMLC [id number] [facility] 11:41[facility]00 [facility] 2021-07-25 Outpatient Anette Benjamin STLMLC STLMLC [id number] [facility] 14:33:29 [facility] 2021-07-25 Outpatient Anette Benjamin STLC STLMLC [id number] [facility] 14:24:24 [id number] [facility] 2021-07-25 Outpatient Anette Benjamin STLMLC STLMLC [id number] [facility] 13:57:58 [id number] [facility] 2021-07-25 Outpatient Anette Benjamin STLMLC STLMLC [id number] [facility] 13:56:51 [id number] [facility] 2021-07-25 Outpatient Anette Benjamin STLMLC STLMLC [id number] [facility] 13:47:46 [id number] [facility] 2021-07-25 Outpatient Anette Benjamin STLMLC STLMLC [id number] [facility] 12:48:36 [id number] [facility] 2021-07-25 Outpatient Anette Benjamin STLMLC STLMLC [id number] [facility] 12:33:46 [id number] [facility] 2021-07-25 Outpatient Anette Benjamin STLMLC STLMLC [id number] [facility] [address] 12:31:18 [id number] [facility] 2021-07-25 Outpatient Benjamin, Na STLMLC STLMLC [id number] [facility] 12:26:58 [id number] [facility] 2021-07-25 Outpatient Benjamin, Na STLMLC STLMLC [id number] [facility] 12:09:32 [id number] [facility] 2021-07-25 Outpatient Benjamin, Na STLMLC STLMLC [id number] [facility] 12:02:06 [id number] [facility] 2021-07-25 Outpatient Benjamin, Na STLMLC STLMLC [id number] [facility] 12:01:44 [id number] [facility] 2021-07-25 Outpatient Benjamin, Na STLMLC STLMLC [id number] [facility] [address] 11:58:40 [id number] [facility] 2021-07-25 Outpatient Benjamin, Na STLMLC STLMLC [id number] [facility] 11:57:47 [id number] [facility] 2021-07-25 Outpatient Benjamin, Na STLMLC STLMLC [id number] [facility] [address] 11:57:12 [id number] [facility] 2021-07-25 Outpatient Benjamin, Na STLMLC STLMLC [id number] [facility] 11:56:42 [id number] [facility] 2021-07-25 Outpatient Benjamin, Na STLMLC STLMLC [id number] [facility] 11:55:04 [id number] [facility] 2021-07-25 Outpatient Benjamin, Na STLMLC STLMLC [id number] [facility] 11:32:26 [id number] [facility] 2021-07-25 Outpatient Benjamin, Na STLMLC STLMLC [id number] [facility] [address] 11:32:11 [id number] [facility] 2021-07-25 Outpatient Benjamin, Na STLMLC STLMLC [id number] [facility] 11:30:56 [id number] [facility] 2021-07-25 Outpatient Benjamin, Na STLMLC STLMLC [id number] [facility] 11:24:01 [id number] [facility] 2021-07-25 Outpatient Benjamin, Na STLMLC STLMLC [id number] [facility] [address] 11:16:56 [id number] [facility] 2021-07-25 Outpatient Benjamin, Na STLMLC STLMLC [id number] [facility] 11:10:23 [id number] [facility] 2021-07-25 Outpatient Benjamin, Na STLMLC STLMLC [id number] [facility] 11:09:28 [id number] [facility] 2021-07-25 Outpatient Benjamin, Na STLMLC STLMLC [id number] [facility] [address] 10:58:23 [id number] [facility] 2021-07-25 Outpatient Benjamin, Na STLMLC STLMLC [id number] [facility] [address] 10:57:38 [id number] [facility] 2021-05-16 [facility] [id number] 12:43:[facility] 2021-08-21 2021-08-21 ambulatory STLMLC STLMLC [id number] [facility] 2021-08-21 2021-08-21 ambulatory STLMLC STLMLC [id number] [facility] 2021-08-20 2021-08-20 ambulatory STLMLC STLMLC [id number] [facility] 2021-05-21 2021-05-21 ambulatory STLMLC STLMLC [id number] [facility] 2021-05-21 2021-05-21 ambulatory STLMLC STLMLC [id number] [facility] 2021-05-16 2021-05-17 Outpatient [facility] [id number] Memoria 18:45:00 05:59:00 [place] l [facility] 2021-05-16 2021-05-16 Outpatient GOGIA, MHSE MHSE [id number] 12:45:00 23:59:00 [facility] 2021-04-05 2021-04-05 Outpatient STLMLC STLMLC [id number] [facility] 2021-03-08 2021-03-08 Outpatient [facility]LMLC [facility] [id number] [facility] 2021-01-29 2021-01-29 Outpatient STLMLC [facility]C [id number] [facility] 2021-01-17 2021-01-17 Outpatient STLMLC [facility]C [id number] [facility] 2021-01-03 2021-01-03 Outpatient STLMLC [facility] [id number] [facility] 2021-01-02 2021-01-02 Outpatient [facility]LMLC [facility] [id number] [facility] 2020-12-04 2020-12-04 Outpatient STLMLC STLMLC [id number] [facility] 2020-11-16 2020-11-16 Outpatient [facility]LMLC [facility] [id number] [facility] 2020-11-06 2020-11-06 Outpatient STLMLC STLMLC [id number] [facility] 2020-10-03 2020-10-03 Outpatient STLMLC STLMLC [id number] [facility] 2020-09-28 2020-09-28 Outpatient STLMLC [facility]C [id number] [facility] 2020-08-24 2020-08-24 Outpatient STLMLC STLMLC [id number] [facility] 2020-08-17 2020-08-17 Outpatient [facility]MLC [facility] [id number] [facility] 2020-08-11 2020-08-11 Outpatient [facility]LMLC [facility]C [id number] [facility] 2020-08-03 2020-08-03 Outpatient [facility]MLC [facility] [id number] [facility] 2020-07-31 2020-07-31 Outpatient STLMLC STLMLC [id number] [facility] 2020-06-26 2020-06-26 Outpatient STLMLC STLMLC [id number] [facility] 2020-06-20 2020-06-20 Outpatient CARLITOSARIELBERNABE AGUILAR [facility] [id number] [place] 10:21:00 10:[place] [id number] [facility] 2020-06-15 2020-06-15 Outpatient STLMLC STLMLC [id number] [facility] 2020-06-14 2020-06-14 Outpatient STLMLC STLMLC [id number] [facility] 2020-06-12 2020-06-12 Outpatient STLMLC STLMLC [id number] [facility] 2020-06-07 2020-06-07 Outpatient FERGUSON_MILDRED AGUILAR [facility] [id number] [place] 03:50:00 03:50:00 [place] [id number] [facility] 2020-06-07 2020-06-07 Outpatient FERGUSON_MILDRED CABRERAHOP [facility] [id number] [place] 03:50:00 03:50:00 HN [id number] [facility] 2020-06-01 2020-06-01 Outpatient STLMLC STLMLC [id number] [facility] 2020-05-29 2020-05-29 Outpatient STLMLC STLMLC [id number] [facility] 2020-05-08 2020-05-08 Outpatient STLMLC STLMLC [id number] [facility] 2020-05-04 2020-05-04 Outpatient STLMLC STLMLC [id number] [facility] 2020-04-24 2020-04-24 Outpatient STLMLC STLMLC [id number] [facility] 2020-04-20 2020-04-20 Outpatient STLMLC STLMLC [id number] [facility] 2020-04-19 2020-04-19 Outpatient STLMLC STLMLC [id number] [facility] 2020-04-18 2020-04-18 Outpatient STLMLC STLMLC [id number] [facility] 2020-04-17 2020-04-17 Outpatient STLMLC [facility]LMLC [id number] [facility] 2020-04-11 2020-04-12 Outpatient [facility] [id number] [facility] 14:07:00 04:59:00 [place] [address] l [facility] 2020-04-11 2020-04-11 Outpatient GOGIA, MHBL MHBL [id number] MHBL 09:07:00 23:59:00 [facility] 2020-01-26 2020-01-26 [facility] [id number] [facility] 14:36:00 14:36:00 t [employer] [facility] Outpati ent Clinics 2020-01-24 2020-01-24 [facility] [id number] [facility] 13:45:00 13:45:00 t [employer] [facility] Clin[facility] 2020-01-19 2020-01-19 [facility] [id number] [facility] 08:40:00 08:40:00 t [employer] [facility] Clin[facility] 2020-01-18 2020-01-18 [facility] [id number] [facility] 15:20:00 15:20:00 t [employer] [facility] Clin[facility] 2020 2020 [facility] [id number] [facility] 14:44:00 14:44:00 t [employer] [facility] 2020 2020 [facility] [id number] [facility] 09:39:00 09:39:00 t [employer] [facility] Medicine Medicine Outpati ent Clinics 2019-12-24 2019-12-24 [facility] [id number] 17:41:00 17:41:00 t [employer] [facility] Outpati ent Clinics 2019-12-21 2019-12-21 [facility] [id number] 09:20:00 09:20:00 t [employer] [facility] Out[facility] Clinics 2019-10-27 2019-10-27 [facility] [id number] [facility] 14:08:00 14:08:00 t [place] [employer] s - Drive [facility] Medicine Medicine Outpati ent Clinics 2019-10-13 2019-10-13 [facility] [id number] [facility] 11:40:00 11:40:00 t [place] [employer] - Drive [facility] Medicine Out[facility] Clinics 2019-10-04 2019-10-04 [facility] [id number] [facility] 08:00:00 08:00:00 t [place] [employer] - [facility] Medicine Outpati ent Clinics 2019-08-26 2019-08-26 [facility] [id number] [facility] 09:30:00 09:30:00 t [place] [employer] - [employer] [facility] Medicine Outpati ent Clinics 2019-08-25 2019-08-25 [facility] [id number] [facility] 11:51:00 11:51:00 t [place] [employer] - [facility] Medicine Outpati ent Clinics 2019-08-24 2019-08-24 [facility] [id number] 14:40:00 14:40:00 t [place] [employer] [facility] Medicine Outpati ent Clinics 2019-08-17 2019-08-17 [facility] [id number] 11:59:00 11:59:00 [place] [employer] - [facility] Outpati ent Clinics 2019-07-05 2019-07-05 [facility] [id number] [facility] 16:00:00 16:00:00 t [place] [employer] - [facility] Medicine Outpati ent Clinics 2019-06-22 2019-06-22 [facility] [id number] [facility] 11:53:00 11:53:00 t [place] [employer] - [facility] Medicine Outpati ent Clinics 2019-06-22 2019-06-22 [facility] [id number] 10:22:00 10:22:00 t [place] [employer] [facility] Medicine Medicine Outpati ent Clinics 2019-05-24 2019-05-24 [facility] [id number] 10:00:00 10:00:00 t [place] [employer] [facility] Medicine Outpati ent Clinics 2019-05-05 2019-05-05 [facility] [id number] 15:44:00 15:44:00 t [place] [employer] [facility] Medicine Outpati ent Clinics 2019-05-04 2019-05-04 [facility] [id number] 15:20:00 15:20:00 t [place] [employer] [facility] Medicine Outpati ent Clinics 2019-04-27 2019-04-27 [facility] [id number] 17:18:00 17:18:00 t [employer] [facility] Medicine Outpati ent Clinics 2019-04-26 2019-04-26 [facility] [id number] 17:24:00 17:24:00 t [place] [employer] [facility] Medicine Outpati ent Clinics 2019-04-20 2019-04-20 [facility] [id number] 08:27:00 08:27:00 t [employer] [facility] Medicine Outpati ent Clinics 2019-04-12 2019-04-12 [facility] [id number] [facility] 11:00:00 11:00:00 t [place] [employer] [facility] Medicine Outpati ent Clinics 2019-03-30 2019-03-30 [facility] [id number] [facility] 14:00:00 14:00:00 t [employer] [facility] Out[facility] Clinics Results Test Description Test Time Test Comments Results Result Comments Source CHEM PANEL 2021-05-16 20:32:00 Test Item Value Reference Range Interpretation Comme nts POC Creatinine (test code = POC Creatinine) 0.6 0.5-1.4 [facility]2021-11-17 20:32:00 Test Item Value Reference Range Interpretation Comments eGFR (test code = eGFR) 105 [facility], STEREOTACTIC BIOPSY, BREAST, [id number] 15:59:00Reason for Exam:->calcificationAddendum [facility]MAG[facility]#: [id number]: 05/14/2017 Lizzette Velásquez M.D. 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 Addendum [facility]#: [id number] - MM, STEREOTACTIC BIOPSY, BREAST, LEFTSTEREOTACTIC GUIDED [...] correct location, five specimens were obtained using SkedoIVA device. A clip was inserted into the [...] the calcifications. Lizzette Velásquez M.D. pth/penrad:05/09/2017 11:07:57 Sort Supervisor: Felicia BELLA(R)(M), [facility] [id number] TISSUE EXAM 2017-05-12 12:48:00Surgical Pathology Report Case: [id number] Authorizing Provider: Lizzette Velásquez MD Collected: 05/09/2017 1110 Ordering Location: [facility] Received: 05/09/2017 1312 Pathologist: Jackie Maradiaga MD Specimen: Breast, Left, LEFT MIDDLE 12 BREAST CALCIFICATION BREAST, LEFT, MIDDLE 12 O'CLOCK, CALCIFICATIONS, STEREOTACTIC CORE NEEDLE BIOPSY: - HYALINIZED FIBROADENOMA - COLUMNAR CELL HYPERPLASIA - COLUMNAR CELL CHANGES - MICROCALCIFICATIONS, COARSE, ASSOCIATED WITH FIBROADENOMA Signing Pathologist Direct Phone Line: [phone] signed by Jackie Maradiaga MD on 05/12/2017 at 12:48 PMIn the sections examined, no atypical hyperplasia or carcinoma is identified.10509Yyigkelykj lesion Left middle 12 o'clock breast calcifications The specimen is received in a formalin-filled container labeled with the patient's information and labeled "leftmiddle 12 o'clock breast calcifications" and consists of multiple yellow-white breast core biopsies ranging in length from 0.6 to 2.5 cm.Ink code: Black.The specimen is submitted entirely in A1 and A2.CG/ewPerformed.[facility], Department of Pathology, [address] [place] [id number], JN, DIGITAL, UNILATERAL, CONFER MARTA, MAMMO, LEFT INCLUDING [id number] 11:07:00Left breast calcificationsMRN#: [id number] - MM, DIGITAL, UNILATERAL, CONFER MARTA, MAMMO, [...] pathology results. Lizzette Velásquez M.D. pth/:05/09/2017 11:07:15 Sort Supervisor: Felicia BELLA(R)(M), [facility] Mammogram BI-RADS: Post-procedure mammogram for marker placement [id number] MM, MAMMO, SPECIMEN, RADIOGRAPH, LEFT 2017-05-09 11:06:00Reason for exam:->Left breast calcificationsMRN#: [id number] - MM, MAMMO, SPECIMEN, RADIOGRAPH, LEFTSPECIMEN LEFT BREAST: 05/09/2017Five stereotactic guided biopsy specimens were imaged for the area of calcifications located in the left breast at 12 o'clock middle depth. IMPRESSION: SPECIMENThe imaged specimens includes the calcifications. Lizzette Velásquez M.D. pth/:05/09/2017 11:06:40 Sort Supervisor: Felicia Rizzo RT(R)(M), [facility] [id number]
[2021-09-03 10:19] LABS: Urine Blood Negative (Negative); Urine Glucose Negative (Negative); Urine Protein Trace (Negative); Urine Specific Gravity 1.015 (1.005-1.030); Urine pH 7.5 (5.0-7.0)
[2021-09-03 10:26] LABS: Absolute Lymphocytes (CBC) 1.3 K/uL (0.7-4.9); Hematocrit 38.1 % (36.0-45.0); Lymphocytes % 15.1 % (15.3-44.8); MPV 8.3 fL (7.6-11.3); RBC Red Blood Cell Count 4.53 M/uL (3.86-4.86)
[2021-09-03] MEDS ORDERED: NA CHLORIDE 0.9% 1,000 ML ONE (10:27)
[2021-09-03] MEDS ORDERED: MORPHINE 4 MG/ML SYR ONE (10:27)
[2021-09-03] MEDS ORDERED: ONDANSETRON 4 MG/2 ML VIAL ONE (10:27)
[2021-09-03] MEDS ORDERED: FAMOTIDINE 20 MG/2 ML VIAL IV ONE (10:27)
[2021-09-03 10:49] LABS: ALT/SGPT 26 U/L (12-78); AST/SGOT 24 U/L (15-37); Albumin 3.5 g/dL (3.4-5.0); Alkaline Phosphatase 130 U/L (45-117); BUN Blood Urea Nitrogen 9 mg/dL (7-18); Bicarbonate 33 mmol/L (21-32); Bilirubin Direct 0.2 mg/dL (0-0.2); Bilirubin Total 0.5 mg/dL (0.2-1.0); Glucose Level 120 mg/dL (74-106); Lipase 90 U/L (73-393); Potassium 3.7 mmol/L (3.5-5.1); Protein, Total 7.3 g/dL (6.4-8.2); Sodium Level 138 mmol/L (136-145)
--- NOTE | 2021-09-03 11:37 | RAD REPORT ---
EXAM DESCRIPTION: CT - Abdomen Pelvis W Contrast - 09/03/2021 11:18 am CLINICAL HISTORY: ABD PAIN COMPARISON: Abdomen Pelvis W Contrast dated 08/18/2021; Abdomen Pelvis W Contrast dated 03/31/2021 TECHNIQUE: Biphasic, helical CT imaging of the abdomen and pelvis was performed following 100 ml non -ionic IV contrast. No oral contrast administered. All CT scans are performed using dose optimization technique as appropriate and may include automated exposure control or mA/KV adjustment according to patient size. FINDINGS: No suspicious findings in the lung bases. Liver size has not changed. There are no focal liver parenchymal lesions seen. Liver enhancement danilo ronnie in attenuation suggests scattered fatty infiltration mild in degree. No portal vein abnormality i dentified. Cholecystectomy clips are present with no biliary tree dilatation. No pancreatic or peripancreatic abnormality identifiable. No focal splenic finding. Symmetric renal function is seen with no hydronephrosis or suspicious renal mass. No pyelonephritis o r acute parenchymal process. No bladder abnormalities. No adrenal abnormalities. Pelvic floor laxity is evident. Uterus is absent. Ovaries are atrophic. No ovarian origin abnormality seen. No gastric dilatation or gastric wall thickening seen. No dilated small bowel loop. Appendix is unrem arkable. There is moderate stool volume in the right-side colon. Patient has diverticulosis from the transverse colon through the distal sigmoid colon. Mcfarland of the sigmoid colon and proximal rectum carolyne ear thickened. There is no intraluminal content. This pattern has been seen on prior imaging. No free air, free fluid or pneumatosis. No new mass or bulky lymphadenopathy. Low-density soft tis alon posterior to each proximal femur. There is stranding in the fatty gluteal tissues inferior and po sterior to each ischium. There is no air present. This is a stable pattern from the prior studies. No suspicious bony findings. IMPRESSION: Contrast enhanced CT abdomen and pelvis showing no emergent finding. Patient has a prominent diverticulosis pattern throughout most of the colon with the mcfarland of the sig moid colon and proximal rectum appearing thickened. No stranding is seen in the adjacent fat around the sigmoid colon and proximal rectum. Mucosal level inflammatory process is possible.
[2021-09-03 12:23] LABS: Anisocytosis SLIGHT; Blood Morphology Comment NOTED (NOT SEEN); Hypochromasia 1+; Platelet Estimate DECR; White Blood Cell Scan OK (OK)
[2021-09-03] MEDS ORDERED: HYDROMORPHONE HCL 0.5 MG/0.5 ML INJ ONE (13:33)
[2021-09-03] MEDS ORDERED: dexAMETHasone 10 MG/ML VIAL ONE (13:33)
--- NOTE | 2021-09-03 13:58 | EDPHYS ---
Physician Documentation [facility] Name: Dena Nnace Age: 51 yrs Sex: Female : 1970 Arrival Date: 09/03/2021 Time: 09:35 Bed 16 Private MD: ED Physician Jose Armando Kumari HPI: 09/03 10:05 This 51 yrs old Female presents to ER via Ambulatory with complaints of Back jmm Pain, Abdominal Pain. 10:05 The patient presents with abdominal pain. Onset: The symptoms/episode began/occurred jmm gradually. 10:05 The symptoms radiate to Associated signs and symptoms: Pertinent positives: nausea and jmm vomiting. The symptoms are described as achy, intermittent, sharp. This is a 51 year old female with a history of DM, diverticulitis, cirrhosis, that presents to the ED with complaints of abdominal pain, mainly epigastric which radiates to the back. Patient has had similar episodes in the past. Denies fever or chills. Took bentyl at home with no relief. . Historical: - Allergies: 09:53 NKA; ab2 - Home Meds: :53 dicyclomine 20 mg Oral tab 4 times per day [Active]; gabapentin 300 mg Oral cap 3 times ab2 per day [Active]; glimepiride 4 mg Oral tab twice a day [Active]; lovastatin 40 mg Oral tab 1 tab once daily [Active]; metformin 1,000 mg Oral tab 2 times per day [Active]; omeprazole 40 mg Oral cpDR once daily [Active]; sertraline 50 mg Oral tab 1 tab once daily [Active]; Toujeo SoloStar subcutaneous [Active]; trazodone 50 mg Oral tab 2 times per day [Active]; - PMHx: 09:53 cirrhosis of liver; Diabetes - NIDDM; Colitis; Diverticulitis; fatty liver; gastritis; ab2 Pancreatitis; - PSHx: 09:53 Cholecystectomy; hysterectomy; ab2 - Immunization history:: Adult Immunizations up to date. - Social history:: Smoking status: Patient denies any tobacco usage or history of. ROS: 10:05 Constitutional: Negative for fever, chills, and weight loss, Cardiovascular: Negative jmm for chest pain, palpitations, and edema, Respiratory: Negative for shortness of breath, cough, wheezing, and pleuritic chest pain. 10:05 Abdomen/GI: Positive for abdominal pain, nausea and vomiting. 10:05 Back: Positive for radiated pain. 10:05 All other systems are negative. Exam: 10:05 Constitutional: This is a well developed, well nourished patient who is awake, alert, jmm and in no acute distress. Head/Face: atraumatic. Eyes: EOMI, no conjunctival erythema appreciated ENT: Moist Mucus Membranes Neck: Trachea midline, Supple Chest/axilla: Normal chest wall appearance and motion. Cardiovascular: Regular rate and rhythm. No edema appreciated Respiratory: Normal respirations, no respiratory distress appreciated 10:05 Skin: General appearance color normal MS/ Extremity: Moves all extremities, no obvious deformities appreciated, no edema noted to the lower extremities Neuro: Awake and alert Psych: Behavior is normal, Mood is normal, Patient is cooperative and pleasant 10:05 Abdomen/GI: Inspection: abdomen appears normal, Bowel sounds: normal, Palpation: soft, mild abdominal tenderness, in all quadrants. 10:05 Back: CVA tenderness, is absent. Vital Signs: 09:50 BP 131 / 52; Pulse 82; Resp 18; Temp 99.0(TE); Pulse Ox 98% on R/A; Weight 65.77 kg; ab2 Height 5 ft. 4 in. (162.56 cm); Pain 10/10; 10:19 BP 116 / 57; Pulse 79; Resp 16; Pulse Ox 97% on R/A; ic1 13:52 BP 111 / 62; Pulse 84; Resp 18; Pulse Ox 97% ; ic1 09:50 Body Mass Index 24.89 (65.77 kg, 162.56 cm) ab2 MDM: 10:[address] Patient medically [address] [facility] 13:55 Data reviewed: vital signs, nurses notes. Counseling: I had a detailed discussion with [facility] the patient and/or guardian regarding: the historical points, exam findings, and any diagnostic results supporting the discharge/admit diagnosis, lab results, radiology results, the need for outpatient follow up, to return to the emergency department if symptoms worsen or persist or if there are any questions or concerns that arise at home. ED course: Pain relieved in the ED. Advised to follow up with her GI for further evaluation. patient otherwise given strict return precautions. Patient understood and agrees with the plan of care. . 09/03 10:07 Order name: Basic Metabolic Panel; Complete Time: 10:[address] [facility] 09/03 10:07 Order name: CBC with Diff; Complete Time: 12:[address] [facility] 09/03 10:07 Order name: Hepatic Function; Complete Time: 10:[address] [facility] 09/03 10:07 Order name: Lipase; Complete Time: 10:[address] [facility] 09/03 10:18 Order name: Urine Dipstick-Ancillary; Complete Time: 10:40 [facility] 09/03 12:11 Order name: Glucose, Ancillary Testing; Complete Time: 12:23 [facility] 09/03 10:12 Order name: CT Abd/Pelvis - IV Contrast Only; Complete Time: 11:[address] [facility] 09/03 12:23 Order name: CBC Smear Scan; Complete Time: 12:24 [facility] 09/03 10:07 Order name: IV Saline Lock; Complete Time: 10:[address] [facility] 09/03 10:07 Order name: Labs collected and sent; Complete Time: 10:[address] [facility] Administered Medications: 10:31 Drug: NS 0.9% 1000 ml Route: IV; Rate: 1 bolus; Site: left antecubital; ic1 14:19 Follow up: IV Status: Completed infusion; IV Intake: 1000ml ic1 10:32 Drug: morphine 4 mg Route: IVP; Site: left antecubital; ic1 10:32 Drug: Zofran (Ondansetron) 4 mg Route: IVP; Site: left antecubital; ic1 10:32 Drug: Pepcid (famotidine) 20 mg Route: IVP; Site: left antecubital; ic1 13:45 Drug: Dilaudid (HYDROmorphone) 0.5 mg Route: IVP; Site: left antecubital; ic1 14:17 Follow up: Response: Pain is decreased ic1 13:45 Drug: Decadron - Dexamethasone 10 mg Route: IVP; Site: left antecubital; ic1 Disposition Summary: 09/03/21 13:57 Discharge Ordered Location: Home [facility] Condition: Stable jmm Diagnosis - Abdominal pain, unspecified jmm Followup: m - With: Private Physician - When: 2 - 3 days - Reason: Recheck today's complaints, Continuance of care, Re-evaluation by your physician Discharge Instructions: - Discharge Summary Sheet [facility] - Abdominal Pain, Adult jmm Forms: - Medication Reconciliation Form [facility] - Thank You Letter [facility] - Antibiotic Education [facility] - Prescription Opioid Use [facility] Prescriptions: - Flagyl 500 mg Oral Tablet - take 1 tablet by ORAL route every 6 hours for 10 days; 40 tablet; Refills: 0, [facility] Product Selection Permitted - Cipro 500 mg Oral Tablet - take 1 tablet by ORAL route every 12 hours for 10 days; 20 tablet; Refills: 0, [facility] Product Selection Permitted Signatures: Dispatcher [employer] Anthony Mattson PA PA jmm Creggett, Iesha RN RN ic1 Jame Dangelo2
--- NOTE | 2021-09-03 13:58 | ER ---
Nurse's Notes [facility] Name: Dena Nance Age: 51 yrs Sex: Female : 1970 Arrival Date: 09/03/2021 Time: 09:35 Bed 16 Private MD: Diagnosis: Abdominal pain, unspecified Presentation: 09/03 09:50 Chief complaint: Patient states: "I was here a few weeks ago for th same thing and you ab2 guys said nothing was wrong, but the pain has gotten worse." Pt c/o 04/08 epigastric pain with N/V/D that started this morning. Coronavirus screen: Vaccine status: Patient reports receiving the 2nd dose of the covid vaccine. Client denies travel out of the [place] in the last 14 days. diarrhea, nausea, vomiting. Client presents with at least one sign or symptom that may indicate coronavirus-19. Standard/surgical mask placed on the client. Provider contacted for isolation considerations. Ebola Screen: Patient negative for fever greater than or equal to 101.5 degrees Fahrenheit, and additional compatible Ebola Virus Disease symptoms Patient denies exposure to infectious person. Patient denies travel to an Ebola-affected area in the 21 days before illness onset. No symptoms or risks identified at this time. Initial Sepsis Screen: Does the patient meet any 2 criteria? No. Patient's initial sepsis screen is negative. Does the patient have a suspected source of infection? No. Patient's initial sepsis screen is negative. Risk Assessment: Do you want to hurt yourself or someone else? Patient reports no desire to harm self or others. Onset of symptoms is unknown. 09:50 Method Of Arrival: Ambulatory ab2 09:50 Acuity: MARIANA 3 ab2 Triage Assessment: 09:54 General: Appears in no apparent distress. uncomfortable, Behavior is calm, cooperative, ab2 appropriate for age. Pain: Complains of pain in epigastric area Pain radiates to back Pain currently is 10 out of 10 on a pain scale. GI: Reports upper abdominal pain, diarrhea, nausea, vomiting. Historical: - Allergies: 09:53 NKA; ab2 - Home Meds: 09:53 dicyclomine 20 mg Oral tab 4 times per day [Active]; gabapentin 300 mg Oral cap 3 times ab2 per day [Active]; glimepiride 4 mg Oral tab twice a day [Active]; lovastatin 40 mg Oral tab 1 tab once daily [Active]; metformin 1,000 mg Oral tab 2 times per day [Active]; omeprazole 40 mg Oral cpDR once daily [Active]; sertraline 50 mg Oral tab 1 tab once daily [Active]; Toujeo SoloStar subcutaneous [Active]; trazodone 50 mg Oral tab 2 times per day [Active]; - PMHx: 09:53 cirrhosis of liver; Diabetes - NIDDM; Colitis; Diverticulitis; fatty liver; gastritis; ab2 Pancreatitis; - PSHx: 09:53 Cholecystectomy; hysterectomy; ab2 - Immunization history:: Adult Immunizations up to date. - Social history:: Smoking status: Patient denies any tobacco usage or history of. Screenin:19 Abuse screen: Denies threats or abuse. Denies injuries from another. Nutritional ic1 screening: No deficits noted. Tuberculosis screening: No symptoms or risk factors identified. Fall Risk None identified. Assessment: 10:19 General: Appears uncomfortable, Behavior is calm, cooperative. Pain: Complains of pain ic1 in abdomen. Neuro: Level of Consciousness is awake, alert, obeys commands, Oriented to person, place, time. Cardiovascular: Denies chest pain, shortness of breath. Respiratory: Denies cough, shortness of breath. GI: Reports upper abdominal pain, diarrhea, nausea, vomiting, Patient currently denies constipation. : No deficits noted. EENT: No deficits noted. Derm: No deficits noted. Musculoskeletal: No deficits noted. 12:07 Reassessment: Pt BS taken and resulted at 46. ED provider notified and pt provided w ic1 meal tray and juice. Pt tolerating. Vital Signs: 09:50 BP 131 / 52; Pulse 82; Resp 18; Temp 99.0(TE); Pulse Ox 98% on R/A; Weight 65.77 kg; ab2 Height 5 ft. 4 in. (162.56 cm); Pain 10/10; 10:19 BP 116 / 57; Pulse 79; Resp 16; Pulse Ox 97% on R/A; ic1 13:52 BP 111 / 62; Pulse 84; Resp 18; Pulse Ox 97% ; ic1 09:50 Body Mass Index 24.89 (65.77 kg, 162.56 cm) ab2 ED Course: 09:35 Patient arrived in ED. rg4 09:37 Valentina Myles FNP-C is PHCP. kb 09:37 Jose Armando Kumari MD is Attending Physician. kb 09:53 Triage completed. ab2 09:54 Arm band placed on right wrist. ab2 10:01 Anthony Johnson PA is PHCP. jmm 10:01 Jose Armando Kumari MD is Attending Physician. [facility] 10:05 Hetal Loving RN is Primary Nurse. ic1 10:19 Patient has correct armband on for positive identification. Bed in low position. Call ic1 light in reach. Side rails up X2. 10:19 No provider procedures requiring assistance completed. Inserted saline lock: 20 gauge ic1 in left antecubital area, using aseptic technique. Blood collected. 11:18 CT Abd/Pelvis - IV Contrast Only In Process Unspecified. EDMS Administered Medications: 10:31 Drug: NS 0.9% 1000 ml Route: IV; Rate: 1 bolus; Site: left antecubital; ic1 14:19 Follow up: IV Status: Completed infusion; IV Intake: 1000ml ic1 10:32 Drug: morphine 4 mg Route: IVP; Site: left antecubital; ic1 10:32 Drug: Zofran (Ondansetron) 4 mg Route: IVP; Site: left antecubital; ic1 10:32 Drug: Pepcid (famotidine) 20 mg Route: IVP; Site: left antecubital; ic1 13:45 Drug: Dilaudid (HYDROmorphone) 0.5 mg Route: IVP; Site: left antecubital; ic1 14:17 Follow up: Response: Pain is decreased ic1 13:45 Drug: Decadron - Dexamethasone 10 mg Route: IVP; Site: left antecubital; ic1 Intake: 14:19 IV: 1000ml; Total: 1000ml. ic1 Outcome: 13:57 Discharge ordered by . mal 14:18 Discharged to home ambulatory, with family. ic1 14:18 Condition: stable 14:18 Discharge instructions given to patient, Instructed on discharge instructions, follow up and referral plans. Demonstrated understanding of instructions, follow-up care. 14:26 Patient left the ED. ic1 Signatures: Dispatcher [employer] EDMS Valentina Myles, ENTOMOLOGY TEACHER-C ENTOMOLOGY TEACHER-Ckb Anthony Johnson PA PA jmm Garcia, Rubi rg4 Hetal Loving RN RN ic1 Jaem Dangelo2
[2021-09-03 14:38] VITALS: TEMP 99
[2021-09-03 14:39] VITALS: O2SAT 97
[2021-09-03 14:40] VITALS: BP 111/62
== END 2021-09-03 14:26 | disposition home or self-care (01) ==
LOC: ER 09:33
DX: R10.13 Epigastric pain (principal); E11.9 Type 2 diabetes mellitus without complications; K74.60 Unspecified cirrhosis of liver
CPT/HCPCS: 85025; 80048; 36415; 82947; 80076; 81003; 83690; 74177; Q9967; J1100; J1170; J7030; J2405; 96361; 96374; 96375; 99284

== ENCOUNTER 2021-09-28 13:27 | Emergency (ER) | payer OTHER ==
--- OUTSIDE RECORDS SUMMARY | 2021-09-28 13:31 | XMS REPORT | Continuity of Care Document ---
:1970 Author Organization [facility] t Address [address] [place] [address] Care Team Providers Name Role Phone Sharpless Primary Care Physician Theresa Benjamin Attending Clinician Unavailable ROS Attending Clinician Unavailable JAVY Attending Clinician Unavailable AIDA VELÁSQUEZ Attending Clinician Unavailable ROS Admitting Clinician Unavailable JAVY Admitting Clinician Unavailable Payers Payer Name Policy Type Policy Number Effective Date Expiration Date S ourshemar Problems Condition Condition Condition Status Onset Resolution Last Treating Co mments Source Name Details Category Date Date Treatment Clinician Date DX: Diagnosis Active 2020-062021-06-06 Mem oria R10.10=UPP 1-10 16:11:00 l ER DX: 00:00: Bernardino ABDOMINAL R10.10=UPP 00 PAIN, ER UNSPECI ABDOMINAL PAIN, UNSPECI Active 05/09/2021 [facility] DX: Diagnosis Active 2019-062020-04-11 Mem oria R10.10, 0-07 09:14:00 l R14.0 DX: 00:00: Bernardino R10.10, 00 R14.0 Active 04/05/2020 [facility] Allergies, Adverse Reactions, Alerts Allergy Allergy Status Severity Reaction(s) Onset Inactive Treating Comm ents Source Name Type Date Date Clinician NO KNOWN Allergy Active [facility] Social History Social Habit Start Date Stop Date Quantity Comments Source Tobacco use and 2017-05-09 2017-05-[address] [facility] silverios - exposure 00:00:00 00:00:00 [facility] Center Sex Assigned At [birth year] [place] 00:00:00 00:00:00 [facility] Smoking Status Start Date Stop Date Source Never smoker [facility] Medications Ordered Filled Start Stop Current Ordering Indication Dosage Frequency Signature Comments Components Source Medication Medication Date Date Medication? Clinician (SIG) Name Name Sertraline Sertraline 2018-06 Yes Na Benjamin [address] [facility] HCl HCl 2-24 [facility] 2016-06 Yes 10mg QD Take [address] [facility] in 1-10 by mouth [facility] - (JARDIANCE) 10:01: daily. Medi michele 10 mg 13 Center tablet sertraline 2016-06 Yes 50mg QD Take [address] (ZOLOFT) 50 1-10 by mouth [facility] - MG tablet 10:01: daily. [address]ica [address] 2016-06 Yes 10mg QD Take [address] [facility] in 1-10 by mouth [facility] - (JARDIANCE) 10:01: daily. Medi michele 10 mg 13 Center tablet sertraline 2016-06 Yes 50mg QD Take [address] (ZOLOFT) 50 1-10 by mouth Luke [facility] - MG tablet 10:01: daily. Medica l [address] [place] [address] glimepiride 2016-06 Yes 4mg Take 4 mg [...] 12 times Center daily before meals. metFORMIN 2016- Yes 500mg Take [address] [facility] (GLUCOPHAGE 1-10 mg by [facility] - ) 500 MG 10:01: mouth 2 Medica l tablet 12 (two) Center times daily with breakfast and dinner. Metformin Metformin Yes Na Benjamin [address] [facility] HCl HCl with a [facility] - meal [facility] Immunizations Ordered Filled Immunization Date Status Comments [facility] e Immunization Name Name Evette Alas - 2019-03-[address] [facility] - multidose vial multidose vial 00:00:00 [facility] Procedures This patient has no known procedures. Encounters Start End Encounter Admission Attending Care Care Encounter Source Date/Time Date/Time Type Type Clinicians Facility Department ID 2021-09-24 Outpatient Sourav Anette STLMLC STLMLC [id number] [facility] 11:59:00 [id number] [facility] 2021-09-06 Outpatient Anette Benjamin STLC STLMLC [id number] [facility] 08[facility]34:01 [facility] 2021-08-21 Outpatient Sourav Anette STLC STLMLC [id number] [facility] 11:41:00 [facility] 2021-07-25 Outpatient Sourav Anette STLC STLMLC [id number] [facility] 14[facility]33:29 [facility] 2021-07-25 Outpatient Anette Benjamin STLC STLMLC [id number] [facility] [address] 14:24:24 [id number] [facility] 2021-07-25 Outpatient Benjamin Na STLC STLMLC [id number] [facility] [address] 13:57:58 [facility] 2021-07-25 Outpatient Sourav Na STLC STLMLC [id number] [facility] 13:56:51 [id number] [facility] 2021-07-25 Outpatient Anette Benjamin STLC STLMLC [id number] [facility] 13:47:46 [id number] [facility] 2021-07-25 Outpatient Benjamin, Na STLMLC STLMLC [id number] [facility] 12:48:36 [id number] [facility] 2021-07-25 Outpatient Benjamin, Na STLMLC STLMLC [id number] [facility] 12:33:46 [id number] [facility] 2021-07-25 Outpatient Benjamin, Na STLMLC STLMLC [id number] [facility] 12:31:18 [id number] [facility] 2021-07-25 Outpatient Benjamin, Na STLMLC STLMLC [id number] [facility] 12:26:58 [id number] [facility] 2021-07-25 Outpatient Benjamin, Na STLMLC STLMLC [id number] [facility] 12:09:32 [id number] [facility] 2021-07-25 Outpatient Benjamin, Na STLMLC STLMLC [id number] [facility] 12:02:06 [id number] [facility] 2021-07-25 Outpatient Benjamin, Na STLMLC STLMLC [id number] [facility] 12:01:44 [id number] [facility] 2021-07-25 Outpatient Benjamin, Na STLMLC STLMLC [id number] [facility] 11:58:40 [id number] [facility] 2021-07-25 Outpatient Benjamin, Na STLMLC STLMLC [id number] [facility] 11:57:47 [id number] [facility] 2021-07-25 Outpatient Benjamin, Na STLMLC STLMLC [id number] [facility] 11:57:12 [id number] [facility] 2021-07-25 Outpatient Benjamin, Na STLMLC STLMLC [id number] [facility] [address] 11:56:42 [id number] [facility] 2021-07-25 Outpatient Benjamin, Na STLMLC STLMLC [id number] [facility] [address] 11:55:04 [id number] [facility] 2021-07-25 Outpatient Benjamin, Na STLMLC STLMLC [id number] [facility] 11:32:26 [id number] [facility] 2021-07-25 Outpatient Benjamin, Na STLMLC STLMLC [id number] [facility] 11:32:11 [id number] [facility] 2021-07-25 Outpatient Benjamin, Na STLMLC STLMLC [id number] [facility] [address] 11:30:56 [id number] [facility] 2021-07-25 Outpatient Benjamin, Na STLMLC STLMLC [id number] [facility] 11:24:01 [id number] [facility] 2021-07-25 Outpatient Benjamin, Na STLMLC STLMLC [id number] [facility] 11:16:56 [id number] [facility] 2021-07-25 Outpatient Benjamin, Na STLMLC STLMLC [id number] [facility] 11:10:23 [id number] [facility] 2021-07-25 Outpatient Benjamin, Na STLMLC STLMLC [id number] [facility] 11:09:28 [id number] [facility] 2021-07-25 Outpatient Benjamin, Na STLMLC STLMLC [id number] [facility] [address] 10:58:23 [id number] [facility] 2021-07-25 Outpatient Benjamin, Na STLMLC STLMLC [id number] [facility] [address] 10:57:38 [id number] [facility] 2021-09-27 2021-09-27 Outpatient GOGIA, MHSE MHSE [id number] 07:32:00 23:59:00 RONALD Demetrio [facility] 2021-09-10 2021-09-10 ambulatory STLMLC STLMLC [id number] [facility] 2021-09-04 2021-09-04 ambulatory STLMLC STLMLC [id number] [facility] 2021-08-21 2021-08-21 ambulatory STLMLC STLMLC [id number] [facility] 2021-08-21 2021-08-21 ambulatory STLMLC STLMLC [id number] [facility] 2021-08-20 2021-08-20 ambulatory STLMLC STLMLC [id number] [facility] 2021-05-21 2021-05-21 ambulatory STLMLC STLC [id number] [facility] 2021-05-21 2021-05-21 ambulatory STLMLC STLC [id number] [facility] 2021-05-16 2021-05-17 Outpatient [facility] [id number] Memoria 18:45:00 05:59:[address] 2021-05-16 2021-05-16 Outpatient GOGIA, MHSE MHSE [id number] 12:45:00 23:59:00 [facility] 2021-04-05 2021-04-05 Outpatient STLMLC STLC [id number] [facility] 2021-03-08 2021-03-08 Outpatient STLMLC STLMLC [id number] [facility] 2021-01-29 2021-01-29 Outpatient STLMLC STLMLC [id number] [facility] 2021-01-17 2021-01-17 Outpatient STLMLC STLMLC [id number] [facility] 2021-01-03 2021-01-03 Outpatient STLMLC STLMLC [id number] [facility] 2021-01-02 2021-01-02 Outpatient STLMLC [facility] [id number] [facility] 2020-12-04 2020-12-04 Outpatient STLMLC STLMLC [id number] [facility] 2020-11-16 2020-11-16 Outpatient STLMLC STLMLC [id number] [facility] 2020-11-06 2020-11-06 Outpatient STLMLC [facility]LML[facility] [id number] [facility] 2020-10-03 2020-10-03 Outpatient STLMLC STLMLC [id number] [facility] 2020-09-28 2020-09-28 Outpatient STLMLC STLMLC [id number] [facility] 2020-08-24 2020-08-24 Outpatient STLMLC STLMLC [id number] [facility] 2020-08-17 2020-08-17 Outpatient STLMLC STLMLC [id number] [facility] 2020-08-11 2020-08-11 Outpatient STLMLC STLMLC [id number] [facility] 2020-08-03 2020-08-03 Outpatient STLMLC STLMLC [id number] [facility] 2020-07-31 2020[facility]07-31 [facility] [id number] [facility] 2020-06-26 2020-06-26 [facility] [id number] [facility] 2020-06-20 2020-06-20 Outpatient FERGUSON_JO MEHOP MEHOP [id number] [place] 10[place]21:[place] [id number] [facility] 2020-06-15 2020-06-15 [facility] [id number] [facility] 2020-06-14 2020[facility]06-14 [facility] [id number] [facility] 2020-06-12 2020-06-12 [facility] [id number] [facility] 2020-06-07 2020-06-07 Outpatient FERGUSON_JO MEHOP MEHOP [id number] [place] 03:50:00 03:50:00 [place] [id number] [facility] 2020-06-07 2020-06-07 Outpatient FERGUSON_JO MEHOP MEHOP [id number] [place] 03:50:00 03:50:00 [place] [id number] [facility] 2020-06-01 2020-06-01 [facility] [id number] [facility] 2020-05-29 2020-05-29 [facility] [id number] [facility] 2020-05-08 2020-05-08 [facility] [id number] [facility] 2020-05-04 2020-05-04 [facility] [id number] [facility] 2020-04-24 2020-04-24 Outpatient STLMLC [facility] [id number] [facility] 2020-04-20 2020-04-20 Outpatient [facility]C [facility] [id number] [facility] 2020-04-19 2020-04-19 Outpatient [facility]C [facility] [id number] [facility] 2020-04-18 2020-04-18 Outpatient [facility]MLC [facility] [id number] [facility] 2020-04-17 2020-04-17 Outpatient [facility]LMLC [facility] [id number] [facility] 2020-04-11 2020-04-12 Outpatient [facility] [id number] [facility] 14:07:00 04:59:00 [facility] 00 l [facility] 2020-04-11 2020-04-11 Outpatient GOGIA, MHBL MHBL [id number] MHBL 09:07:00 23:59:00 [facility] 2020-01-26 2020-01-26 [facility] [id number] [facility] 14:36:00 14:36:00 t [place] s - Drive [facility] Medicine Outpati ent Clinics 2020-01-24 2020-01-24 [facility] [id number] [facility] 13:45:00 13:45:00 t [place] [employer] - Drive [facility] l Medicine Outpati ent Clinics 2020-01-19 2020-01-19 [facility] [id number] 08:40:00 08:40:00 t [place] [employer] - Drive [facility] Family [facility] l Medicine Outpati ent Clinics 2020-01-18 2020-01-18 [facility] [id number] [facility] 15:20:00 15:20:00 t [place] s - Drive [facility] Medicine Medicine Outpati ent Clinics 2020 2020 [facility] [id number] [facility] 14:44:00 14:44:00 t [place] s [employer] [facility] Medicine Outpati ent Clinics 2020 2020 [facility] [id number] 09:39:00 09:39:00 t [place] [employer] [facility] Medicine Outpati ent Clinics 2019-12-24 2019-12-24 [facility] [id number] 17:41:00 17:41:00 t [place] [employer] [facility] Medicine Outpati ent Clinics 2019-12-21 2019-12-21 [facility] [id number] 09:20:00 09:20:00 t [place] [employer] [facility] Medicine Outpati ent Clinics 2019-10-27 2019-10-27 [facility] [id number] [facility] 14:08:00 14:08:00 t [place] [employer] [employer] [facility] Medicine Outpati ent Clinics 2019-10-13 2019-10-13 [facility] [id number] [facility] 11:40:00 11:40:00 t [place] [employer] [facility] Medicine Outpati ent Clinics 2019-10-04 2019-10-04 [facility] [id number] [facility] 08:00:00 08:00:00 t [place] [employer] [facility] Medicine Outpati ent Clinics 2019-08-26 2019-08-26 [facility] [id number] [facility] 09:30:00 09:30:00 t [place] [employer] [facility] Medicine Outpati ent Clinics 2019-08-25 2019-08-25 [facility] [id number] [facility] 11:51:00 11:51:00 t [place] [employer] [facility] Medicine Outpati ent Clinics 2019-08-24 2019-08-24 [facility] [id number] [facility] 14:40:00 14:40:00 t [place] [employer] - Drive [facility] Medicine Medicine Outpati ent Clinics 2019-08-17 2019-08-17 [facility] [id number] [facility] 11:59:00 11:59:00 t [place] [employer] - Drive [facility] Medicine l Medicine Outpati ent Clinics 2019-07-05 2019-07-05 [facility] [id number] [address] 16:00:00 16:00:00 t [place] [employer] - Drive [facility] Medicine l Medicine Outpati ent Clinics 2019-06-22 2019-06-22 [facility] [id number] 11:53:00 11:53:00 t [place] [employer] - [place] [facility] Medicine Outpati ent Clinics 2019-06-22 2019-06-22 [facility] [id number] 10:22:00 10:22:00 t [place] s - [place] [facility] Medicine Outpati ent Clinics 2019-05-24 2019-05-24 [facility] [id number] 10:00:00 10:00:00 t [place] [employer] - [place] [facility] l Medicine Outpati ent Clinics 2019-05-05 2019-05-05 [facility] [id number] 15:44:00 15:44:00 t [place] s - [employer] [facility] Medicine Outpati ent Clinics 2019-05-04 2019-05-04 [facility] [id number] [facility] 15:20:00 15:20:00 t [place] s - Drive [facility] Medicine l Medicine Outpati ent Clinics 2019-04-27 2019-04-27 [facility] [id number] 17:18:00 17:18:00 t [place] [employer] - Drive [facility] Medicine Outpati ent Clinics 2019-04-26 2019-04-26 [facility] [id number] [facility] 17:24:00 17:24:00 t [place] [employer] - Drive [facility] Medicine Outpati ent Clinics 2019-04-20 2019-04-20 [facility] [id number] 08:27:00 08:27:00 [facility] 2019-04-12 2019-04-12 Outpatient Jam Rivera [id number] [facility] 11:00:00 11:00:00 [facility] 2019-03-30 2019-03-30 Outpatient Jam Rivera [id number] [facility] 14:00:00 14:00:00 [facility] Results Test Description Test Time Test Comments Results Result Comments Source CHEM PANEL 2021-05-16 20:32:00 Test Item Value Reference Range Interpretation Comme nts POC Creatinine (test code = POC Creatinine) 0.6 0.5-1.4 [facility] [employer] [id number] 20:32:00 Test Item Value Reference Range Interpretation Comments eGFR (test code = eGFR) 105 [facility], STEREOTACTIC BIOPSY, BREAST, [id number] 15:59:00Reason for Exam:->calcificationAddendum BeginsMRN#: [id number]: 05/14/2017 Lizzette Velásquez M.D. 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 Addendum EndsN#: [id number] - MM, STEREOTACTIC BIOPSY, BREAST, LEFTSTEREOTACTIC GUIDED [...] correct location, five specimens were obtained using [employer] EVIVA device. A clip was inserted into [...] the calcifications. Lizzette Velásquez M.D. pth/penrad:05/09/2017 11:07:57 Dairy Associate: Felicia Rizzo RT(R)(M), Critical access hospital?[facility] [id number] TISSUE EXAM 2017-05-12 12:48:00Surgical Pathology Report Case: [id number] Authorizing Provider: Lizzette Velásquez MD Collected: 05/09/2017 1110 Ordering Location: [facility] Received: 05/09/2017 1312 Pathologist: Jackie Maradiaga MD Specimen: Breast, Left, LEFT MIDDLE 12 BREAST CALCIFICATION BREAST, LEFT, MIDDLE 12 O'CLOCK, CALCIFICATIONS, STEREOTACTIC CORE NEEDLE BIOPSY: - HYALINIZED FIBROADENOMA - COLUMNAR CELL HYPERPLASIA - COLUMNAR CELL CHANGES - MICROCALCIFICATIONS, COARSE, ASSOCIATED WITH FIBROADENOMA Signing Pathologist Direct Phone Line: [phone] signed by Jackie Maradiaga MD on 05/12/2017 at 12:48 PMIn the sections examined, no atypical hyperplasia or carcinoma is identified.[id number] lesion Left middle 12 o'clock breast calcifications The specimen is received in a formalin-filled container labeled with the patient's information and labeled "leftmiddle 12 o'clock breast calcifications" and consists of multiple yellow-white breast core biopsies ranging in length from 0.6 to 2.5 cm.Ink code: Black.The specimen is submitted entirely in A1 and A2.CG/ewPerformed.[facility], Department of Pathology, [address] [place] [address], [place] [address], HF, DIGITAL, UNILATERAL, CONFER MARTA, MAMMO, LEFT INCLUDING [id number] 11:07:00Left breast calcificationsMRN#: [id number] - MM, DIGITAL, UNILATERAL, CONFER MARTA, MAMMO, [...] pathology results. Lizzette Velásquez M.D. pth/:05/09/2017 11:07:15 Dairy Associate: Felicia IRVIN (R)), Critical access hospital?[facility] Mammogram BI-RADS: Post-procedure mammogram for marker placement [id number] MM, MAMMO, SPECIMEN, RADIOGRAPH, LEFT 2017-05-09 11:06:00Reason for exam:->Left breast calcificationsMRN#: [id number] - MM, MAMMO, SPECIMEN, RADIOGRAPH, LEFTSPECIMEN LEFT BREAST: 05/09/2017Five stereotactic guided biopsy specimens were imaged for the area of calcifications located in the left breast at 12 o'clock middle depth. IMPRESSION: SPECIMENThe imaged specimens includes the calcifications. Lizzette Velásquez M.D. pth/:05/09/2017 11:06:40 Dairy Associate: Felicia SCHNEIDER)(Phil), Critical access hospital?[facility] [id number]
[2021-09-28 14:30] LABS: Absolute Lymphocytes (CBC) 1.5 K/uL (0.7-4.9); Hematocrit 38.4 % (36.0-45.0); Lymphocytes % 19.9 % (15.3-44.8); MPV 8.7 fL (7.6-11.3); RBC Red Blood Cell Count 4.55 M/uL (3.86-4.86)
[2021-09-28] MEDS ORDERED: ONDANSETRON 4 MG/2 ML VIAL ONE (14:35)
[2021-09-28] MEDS ORDERED: NA CHLORIDE 0.9% 1,000 ML ONE (14:35)
[2021-09-28] MEDS ORDERED: KETOROLAC 30 MG/ML INJ ONE (14:35)
[2021-09-28 14:43] LABS: Albumin 3.4 g/dL (3.4-5.0); Bilirubin Total 0.4 mg/dL (0.2-1.0); Potassium 3.9 mmol/L (3.5-5.1); Protein, Total 7.1 g/dL (6.4-8.2)
[2021-09-28 15:38] LABS: Blood Morphology Comment NOT SEEN (NOT SEEN); Platelet Estimate DECR; Platelets, Giant PRESENT; White Blood Cell Scan OK (OK)
--- NOTE | 2021-09-28 16:47 | EDPHYS ---
Physician Documentation [facility] Name: Dena Nance Age: 51 yrs Sex: Female : 1970 Arrival Date: 09/28/2021 Time: 13:27 Bed 14 Private MD: Anette Benjamin ED Physician Roberto Alejo HPI: 09/28 16:45 This 51 yrs old Female presents to ER via Ambulatory with complaints of kb Abdominal Swelling, Back Pain. 16:45 The patient presents with abdominal pain in the upper abdomen. The patient has not kb recently seen a physician. 16:45 Onset: The symptoms/episode began/occurred yesterday. The symptoms do not radiate. kb Associated signs and symptoms: Pertinent positives: diarrhea, nausea, Pertinent negatives: vomiting. The symptoms are described as constant. Modifying factors: The symptoms are alleviated by nothing, the symptoms are aggravated by movement, pressure. Severity of pain: At its worst the pain was moderate in the emergency department the pain is unchanged. The patient has not experienced similar symptoms in the past. Pt reports nausea, diarrhea and abd pain that started yesterday and is getting worse. Historical: - Allergies: 14:03 NKA; ab2 - PMHx: 14:03 cirrhosis of liver; Colitis; Diabetes - NIDDM; Diverticulitis; fatty liver; gastritis; ab2 Pancreatitis; - PSHx: 14:03 Cholecystectomy; hysterectomy; ab2 - Immunization history:: Adult Immunizations up to date. - Social history:: Smoking status: Patient denies any tobacco usage or history of. ROS: 16:45 Constitutional: Negative for fever, chills, and weight loss. kb 16:45 Abdomen/GI: Positive for abdominal pain, nausea, diarrhea. 16:45 All other systems are negative. Exam: 16:44 Constitutional: This is a well developed, well nourished patient who is awake, alert, kb and in no acute distress. Head/Face: Normocephalic, atraumatic. ENT: Moist Mucous membranes Cardiovascular: Regular rate and rhythm with a normal S1 and S2. No gallops, murmurs, or rubs. No pulse deficits. Respiratory: Respirations even and unlabored. No increased work of breathing. Talking in full sentences Skin: Warm, dry with normal turgor. Normal color. MS/ Extremity: Pulses equal, no cyanosis. Neurovascular intact. Full, normal range of motion. Neuro: Awake and alert, GCS 15, oriented to person, place, time, and situation. Moves all extremities. Normal gait. Psych: Awake, alert, with orientation to person, place and time. Behavior, mood, and affect are within normal limits. 16:44 Abdomen/GI: Inspection: abdomen appears normal, Bowel sounds: normal, Palpation: soft, in all quadrants, mild abdominal tenderness, in the right lower quadrant and left lower quadrant, moderate abdominal tenderness, in the right upper quadrant and left upper quadrant. Vital Signs: 14:02 BP 107 / 55; Pulse 102; Resp 18; Temp 99.1(TE); Pulse Ox 98% on R/A; Weight 66.68 kg; ab2 Height 5 ft. 4 in. (162.56 cm); Pain 10/10; 14:28 BP 130 / 64; Pulse 98; Resp 16; Pulse Ox 99% ; vg1 15:30 BP 107 / 50; Pulse 78; Resp 16; Pulse Ox 99% ; vg1 14:02 Body Mass Index 25.23 (66.68 kg, 162.56 cm) ab2 MDM: 14:10 Patient medically screened. kb 16:44 Data reviewed: vital signs, nurses notes. Data interpreted: Pulse oximetry: on room air kb is 99 %. Interpretation: normal. Counseling: I had a detailed discussion with the patient and/or guardian regarding: the historical points, exam findings, and any diagnostic results supporting the discharge/admit diagnosis, lab results, radiology results, the need for outpatient follow up, a family practitioner, a apparel merchandiser, to return to the emergency department if symptoms worsen or persist or if there are any questions or concerns that arise at home. 09/28 14:10 Order name: CBC with Diff; Complete Time: 15:49 kb 09/28 14:10 Order name: CMP; Complete Time: 15:00 kb 09/28 14:10 Order name: Lipase; Complete Time: 15:00 kb 09/28 14:19 Order name: CT Abd/Pelvis - IV Contrast Only; Complete Time: 17:13 kb 09/28 15:39 Order name: CBC Smear Scan; Complete Time: 15:49 EDMS 09/28 14:10 Order name: IV Saline Lock; Complete Time: 14:28 kb 09/28 14:10 Order name: Labs collected and sent; Complete Time: 14:28 kb Administered Medications: 14:35 Drug: NS 0.9% 1000 ml Route: IV; Rate: 1000 ml; Site: left antecubital; vg1 14:35 Drug: Zofran (Ondansetron) 4 mg Route: IVP; Site: left antecubital; vg1 15:30 Follow up: Response: No adverse reaction; Marked relief of symptoms vg1 14:37 Drug: Ketorolac 15 mg Route: IVP; Site: left antecubital; vg1 15:30 Follow up: Response: No adverse reaction; Marked relief of symptoms vg1 Disposition: 09/29 08:59 Co-signature as Attending Physician, Roberto Alejo MD. rn Disposition Summary: 09/28/21 16:46 Discharge Ordered Location: Home kb Condition: Stable kb Diagnosis - Abdominal pain, Generalized kb - Diarrhea, unspecified kb Followup: kb - With: Emergency Department - When: As needed - Reason: Worsening of condition Followup: kb - With: Private Physician - When: 2 - 3 days - Reason: Recheck today's complaints, Continuance of care, Re-evaluation by your physician Discharge Instructions: - Discharge Summary Sheet kb - Abdominal Pain, Adult, [id number] kb - Diarrhea, Adult, [id number] kb Forms: - Medication Reconciliation Form kb - Thank You Letter kb - Antibiotic Education kb - Prescription Opioid Use kb - Work release form vg1 Prescriptions: - Zofran 4 mg Oral Tablet - take 1 tablet by ORAL route every 6 hours As needed; 20 tablet; Refills: 0, kb Product Selection Permitted - dicyclomine 20 mg Oral Tablet - take 1 tablet by ORAL route 4 times per day As needed; 20 tablet; Refills: 0, kb Product Selection Permitted Signatures: Dispatcher [employer] Valentina Dickinson, KENC SHANA-Roberto Ramirez MD MD rn Garcia, Victoria RN RN 1 Jame Dangelo
--- NOTE | 2021-09-28 16:47 | ER ---
Nurse's Notes [facility] Name: Dena Nance Age: 51 yrs Sex: Female : 1970 Arrival Date: 09/28/2021 Time: 13:27 Bed 14 Private MD: Anette Benjamin Diagnosis: Abdominal pain, Generalized;Diarrhea, unspecified Presentation: 09/28 14:02 Chief complaint: Patient states: "i normally have pain in one area of my stomach but ab2 today its all over. My stomach is so swollen is started to swell in my back." Pt Denies N/v/d. Coronavirus screen: Vaccine status: Patient reports receiving the 2nd dose of the covid vaccine. Client denies travel out of the [place] in the last 14 days. At this time, the client does not indicate any symptoms associated with coronavirus-19. Ebola Screen: Patient negative for fever greater than or equal to 101.5 degrees Fahrenheit, and additional compatible Ebola Virus Disease symptoms Patient denies exposure to infectious person. Patient denies travel to an Ebola-affected area in the 21 days before illness onset. No symptoms or risks identified at this time. Initial Sepsis Screen: Does the patient meet any 2 criteria? No. Patient's initial sepsis screen is negative. Does the patient have a suspected source of infection? No. Patient's initial sepsis screen is negative. Risk Assessment: Do you want to hurt yourself or someone else? Patient reports no desire to harm self or others. Onset of symptoms is unknown. 14:02 Method Of Arrival: Ambulatory ab2 14:02 Acuity: MARIANA 3 ab2 Triage Assessment: 14:03 General: Appears in no apparent distress. uncomfortable, Behavior is calm, cooperative, ab2 appropriate for age. Pain: Complains of pain in abdomen. GI: Reports lower abdominal pain, upper abdominal pain, bloating. Historical: - Allergies: 14:03 NKA; ab2 - PMHx: 14:03 cirrhosis of liver; Colitis; Diabetes - NIDDM; Diverticulitis; fatty liver; gastritis; ab2 Pancreatitis; - PSHx: 14:03 Cholecystectomy; hysterectomy; ab2 - Immunization history:: Adult Immunizations up to date. - Social history:: Smoking status: Patient denies any tobacco usage or history of. Screenin:28 Abuse screen: Denies threats or abuse. Nutritional screening: No deficits noted. vg1 Tuberculosis screening: No symptoms or risk factors identified. Fall Risk No fall in past 12 months (0 pts). No secondary diagnosis (0 pts). IV access (20 points). Ambulatory Aid- None/Bed Rest/Nurse Assist (0 pts). Gait- Normal/Bed Rest/Wheelchair (0 pts) Mental Status- Oriented to own ability (0 pts). Total Scott Fall Scale indicates No Risk (0-24 pts). Assessment: 14:28 General: Appears in no apparent distress. uncomfortable, Behavior is cooperative, vg1 crying. Pain: Complains of pain in epigastric area, right upper quadrant and left upper quadrant Pain currently is 10 out of 10 on a pain scale. Pain began this morning around 1000 Noted to be crying, grimacing, guarding, moaning. Neuro: Level of Consciousness is awake, alert, obeys commands, Oriented to person, place, time, situation. Cardiovascular: Patient's skin is warm and dry. Respiratory: Airway is patent Respiratory effort is even, unlabored. GI: Abdomen is flat, Bowel sounds present X 4 quads. Abdomen is tender to palpation in epigastric area, right upper quadrant and left upper quadrant Reports diarrhea, nausea, Patient currently denies vomiting. : No signs and/or symptoms were reported regarding the genitourinary system. EENT: No signs and/or symptoms were reported regarding the EENT system. Derm: Skin is intact, is healthy with good turgor. Musculoskeletal: Circulation, motion, and sensation intact. 15:30 Reassessment: Patient appears in no apparent distress at this time. Patient and/or vg1 family updated on plan of care and expected duration. Pain level reassessed. Patient is alert, oriented x 3, equal unlabored respirations, skin warm/dry/pink. stated ABD pain 4/10. 16:09 Reassessment: Pt stated 'I can feel the pain coming back' Rated ABD pain 7/10. Provider vg1 notified. Vital Signs: 14:02 BP 107 / 55; Pulse 102; Resp 18; Temp 99.1(TE); Pulse Ox 98% on R/A; Weight 66.68 kg; ab2 Height 5 ft. 4 in. (162.56 cm); Pain 10/10; 14:28 BP 130 / 64; Pulse 98; Resp 16; Pulse Ox 99% ; vg1 15:30 BP 107 / 50; Pulse 78; Resp 16; Pulse Ox 99% ; vg1 14:02 Body Mass Index 25.23 (66.68 kg, 162.56 cm) ab2 ED Course: 13:27 Patient arrived in ED. as 13:28 Anette Benjamin MD is Private Physician. as 14:03 Triage completed. ab2 14:04 Arm band placed on right wrist. ab2 14:10 Valentina Myles FNP-C is [facility]. kb 14:10 Roberto Alejo MD is Attending Physician. kb 14:16 Zully Baker, SHADE is Primary Nurse. vg1 14:19 CBC with Diff Sent. romero 14:19 CMP Sent. romero 14:19 Lipase Sent. romero 14:19 Inserted saline lock: 20 gauge in left antecubital area, using aseptic technique. romero 14:28 Patient has correct armband on for positive identification. Placed in gown. Bed in low vg1 position. Call light in reach. Side rails up X 1. 14:28 No provider procedures requiring assistance completed. vg1 15:17 CT Abd/Pelvis - IV Contrast Only In Process Unspecified. EDMS Administered Medications: 14:35 Drug: NS 0.9% 1000 ml Route: IV; Rate: 1000 ml; Site: left antecubital; vg1 14:35 Drug: Zofran (Ondansetron) 4 mg Route: IVP; Site: left antecubital; vg1 15:30 Follow up: Response: No adverse reaction; Marked relief of symptoms vg1 14:37 Drug: Ketorolac 15 mg Route: IVP; Site: left antecubital; vg1 15:30 Follow up: Response: No adverse reaction; Marked relief of symptoms vg1 Outcome: 16:46 Discharge ordered by . kb 17:34 Patient left the ED. vg1 Signatures: Dispatcher [employer] EDMS Valentina Myles FNP-C FNP-Ckb Martinez, Amelia as Garcia, Victoria, RN RN vg1 Au-StagerTaryn RN RN ha Bleininger, Alexis ab2
--- NOTE | 2021-09-28 17:03 | RAD REPORT ---
EXAM DESCRIPTION: CT - Abdomen Pelvis W Contrast - 09/28/2021 3:16 pm CLINICAL HISTORY: ABD PAIN COMPARISON: Abdomen Pelvis W Contrast dated 09/03/2021; Abdomen Pelvis W Contrast dated 08/18/2021; Abdomen Pelvis W Contrast dated 03/31/2021; Abdomen Pelvis W Contrast dated 12/04/2020 TECHNIQUE: Biphasic, helical CT imaging of the abdomen and pelvis was performed following 100 ml non -ionic IV contrast. No oral contrast administered. All CT scans are performed using dose optimization technique as appropriate and may include automated exposure control or mA/KV adjustment according to patient size. FINDINGS: No suspicious findings in the lung bases. The liver, spleen, and pancreas show no suspicious findings. Gallbladder is absent. No abnormal bilia ry tree dilatation. Symmetric renal function is seen with no hydronephrosis or suspicious renal mass. No pyelonephritis o r acute parenchymal process. No bladder abnormalities. No adrenal abnormalities. Uterus absent. No kaufman spicious ovarian finding. No gastric dilatation or gastric wall thickening. No acute small bowel finding. No direct or indirect evidence for appendicitis. No dilation of the colon. Cabrera of the sigmoid colon are mildly prominent . Absence of intraluminal content limits evaluation. Mucosal level inflammatory bowel changes cannot be excluded on a CT study. There is no congestion or edema of the surrounding fat. Colon findings are not clearly different from the September 03 study. No free air, free fluid or inflammatory stranding. No hernia, mass or bulky lymphadenopathy. No suspicious bony findings. Low density soft tissues along the posterior margin of each proximal fem ur nonspecific and unchanged over multiple studies. No acute vascular finding. Final report was delayed due to technical issues with the IT systems. Images could only be initially reviewed off of the CT suite monitors. Preliminary report was provided at the time of the study. IMPRESSION: Contrast enhanced CT abdomen and pelvis showing no no acute or emergent finding. Above detailed findings are not clearly different from September 03 imaging.
[2021-09-28 18:25] VITALS: TEMP 99.1
[2021-09-28 18:27] VITALS: O2SAT 99
[2021-09-28 18:28] VITALS: BP 107/50
== END 2021-09-28 17:34 | disposition home or self-care (01) ==
LOC: ER 13:27
DX: R19.7 Diarrhea, unspecified (principal); E11.9 Type 2 diabetes mellitus without complications; K74.60 Unspecified cirrhosis of liver
CPT/HCPCS: 85025; 36415; 83690; 80053; 74177; 96375; 96374; 99284; Q9967; J7030; J2405

== ENCOUNTER 2021-09-29 11:39 | Emergency (ER) | payer OTHER ==
--- OUTSIDE RECORDS SUMMARY | 2021-09-29 11:42 | XMS REPORT | Continuity of Care Document ---
:1970 Author Organization [facility] t Address [address] [place] [address] Care Team Providers Name Role Phone Sharpless Primary Care Physician Theresa Benjamni Attending Clinician Unavailable ROS Attending Clinician Unavailable [...] ER UNSPECI ABDOMINAL PAIN, UNSPECI Active 05/09/2021 [facility] DX: Diagnosis Active 2019-062020-04-11 Mem oria R10.10, 0-07 09:14:00 l R14.0 DX: 00:00: Bernardino R10.10, 00 R14.0 Active 04/05/2020 [facility] Allergies, Adverse Reactions, Alerts Allergy Allergy Status Severity Reaction(s) Onset Inactive Treating Comm ents Source Name Type Date Date Clinician NO KNOWN Allergy Active [facility] Boothe HENRI [facility] Social History Social Habit Start Date Stop Date Quantity Comments Source Tobacco use and 2017-05-09 2017-05-[address] [facility] silverios - exposure 00:00:00 00:00:00 [facility] Sex Assigned At [birth year] [place] 00:00:00 00:00:00 [facility] Smoking Status Start Date Stop Date Source Never smoker [facility] Medications Ordered Filled Start Stop Current Ordering Indication Dosage Frequency Signature Comments Components Source Medication Medication Date Date Medication? Clinician (SIG) Name Name Sertraline Sertraline 2018-06 Yes Na Benjamin [address] [facility] HCl HCl 2-24 [facility] 2016-06 Yes 10mg QD Take [address] [facility] in 1-10 by mouth [facility] - (JARDIANCE) 10:01: daily. Medi michele 10 mg 13 Center tablet sertraline 2016-06 Yes 50mg QD Take [address] (ZOLOFT) 50 1-10 by mouth [facility] - MG tablet 10:01: daily. Medica [address] 2016-06 Yes 10mg QD Take [address] in 1-10 by mouth [facility] (JARDIANCE) 10:01: daily. Medi michele 10 mg 13 Center tablet sertraline 2016-06 Yes 50mg QD Take [address] (ZOLOFT) 50 1-10 by mouth [facility] - MG tablet 10:01: daily. Medica l [address] [place] [address] glimepiride 2016-06 Yes 4mg Take 4 mg [...] Immunizations Ordered Filled Immunization Date Status Comments [facility] e Immunization Name Name Evette Alas - 2019-03-[address] [facility] - multidose vial multidose vial 00:00:00 [facility] Outpatient [facility] Procedures This patient has no known procedures. Encounters Start End Encounter Admission Attending Care Care Encounter Source Date/Time Date/Time Type Type Clinicians Facility Department ID 2021-09-24 Outpatient Sourav Anette STLMLC STLMLC [id number] [facility] 11:59:00 [id number] [facility] 2021-09-06 Outpatient Anette Benjamin STLC STLMLC [id number] [facility] 08:34:01 [facility] 2021-08-21 Outpatient Sourav Anette STLC STLMLC [id number] [facility] 11:41:00 [facility] 2021-07-25 Outpatient Sourav Anette STLC STLMLC [id number] [facility] 14:33:29 [facility] 2021-07-25 Outpatient Anette Benjamin STLC STLMLC [id number] [facility] 14:24:24 [id number] [facility] 2021-07-25 Outpatient Benjamin Na STLC STLMLC [id number] [facility] 13:57:58 [facility] 2021-07-25 Outpatient Sourav Na STLC STLMLC [id number] [facility] 13:56:51 [id number] [facility] 2021-07-25 Outpatient Anette Benjamin STLC STLMLC [id number] [facility] 13:47:46 [id number] [facility] 2021-07-25 Outpatient Benjamin, Na STLMLC STLMLC [id number] [facility] 12:48:36 [id number] [facility] 2021-07-25 Outpatient Benjamin, Na STLMLC STLMLC [id number] [facility] 12:33:46 [id number] [facility] 2021-07-25 Outpatient Benjamin, Na STLMLC STLMLC [id number] [facility] [address] 12:31:18 [id number] [facility] 2021-07-25 Outpatient Benjamin, Na STLMLC STLMLC [id number] [facility] [address] 12:26:58 [id number] [facility] 2021-07-25 Outpatient Benjamin, Na STLMLC STLMLC [id number] [facility] 12:09:32 [id number] [facility] 2021-07-25 Outpatient Benjamin, Na STLMLC STLMLC [id number] [facility] 12:02:06 [id number] [facility] 2021-07-25 Outpatient Benjamin, Na STLMLC STLMLC [id number] [facility] [address] 12:01:44 [id number] [facility] 2021-07-25 Outpatient Benjamin, Na STLMLC STLMLC [id number] [facility] 11:58:40 [id number] [facility] 2021-07-25 Outpatient Benjamin, Na STLMLC STLMLC [id number] [facility] [address] 11:57:47 [id number] [facility] 2021-07-25 Outpatient Benjamin, Na STLMLC STLMLC [id number] [facility] [address] 11:57:12 [id number] [facility] 2021-07-25 Outpatient Benjamin, Na STLMLC STLMLC [id number] [facility] [address] 11:56:42 [id number] [facility] 2021-07-25 Outpatient Benjamin, Na STLMLC STLMLC [id number] [facility] 11:55:04 [id number] [facility] 2021-07-25 Outpatient Benjamin, Na STLMLC STLMLC [id number] [facility] [address] 11:32:26 [id number] [facility] 2021-07-25 Outpatient Benjamin, Na STLMLC STLMLC [id number] [facility] 11:32:11 [id number] [facility] 2021-07-25 Outpatient Benjamin, Na STLMLC STLMLC [id number] [facility] [address] 11:30:56 [id number] [facility] 2021-07-25 Outpatient Benjamin, Na STLMLC STLMLC [id number] [facility] [address] 11:24:01 [id number] [facility] 2021-07-25 Outpatient Benjamin, Na STLMLC STLMLC [id number] [facility] 11:16:56 [id number] [facility] 2021-07-25 Outpatient Benjamin, Na STLMLC STLMLC [id number] [facility] [address] 11:10:23 [id number] [facility] 2021-07-25 Outpatient Benjamin, Na STLMLC STLMLC [id number] [facility] [address] 11:09:28 [id number] [facility] 2021-07-25 Outpatient Benjamin, Na STLMLC STLMLC [id number] [facility] 10:58:23 [id number] [facility] 2021-07-25 Outpatient Benjamin, Na STLMLC STLMLC [id number] [facility] [address] 10:57:38 [id number] [facility] 2021-09-27 2021-09-27 Outpatient GOGIA, MHSE MHSE [id number] 07:32:00 23:59:00 RONALD Dem[facility] 2021-09-10 2021-09-10 ambulatory STLMLC [facility]MLC [id number] [facility] 2021-09-04 2021-09-04 ambulatory [facility]LMLC [facility]LMLC [id number] [facility] 2021-08-21 2021-08-21 ambulatory [facility]LMLC [facility] [id number] [facility] 2021-08-21 2021-08-21 ambulatory STLMLC ST[facility]C [id number] [facility] 2021-08-20 2021-08-20 ambulatory [facility]LMLC [facility] [id number] [facility] 2021-05-21 2021-05-21 ambulatory STLMLC STLC [id number] [facility] 2021-05-21 2021-05-21 ambulatory STLMLC STLC [id number] [facility] 2021-05-16 2021-05-17 Outpatient [facility] [id number] [facility] 18:45:00 05:59:[address] 2021-05-16 2021-05-16 Outpatient GOGIA, MHSE MHSE [id number] 12:45:00 23:59:00 [facility] 2021-04-05 2021-04-05 Outpatient STLMLC STLC [id number] [facility] 2021-03-08 2021-03-08 Outpatient STLMLC STL[facility] [id number] [facility] 2021-01-29 2021-01-29 Outpatient STLMLC [facility] [id number] [facility] 2021-01-17 2021-01-17 Outpatient [facility]C [facility] [id number] [facility] 2021-01-03 2021-01-03 Outpatient [facility]LMLC STL[facility] [id number] [facility] 2021-01-02 2021-01-02 Outpatient [facility]LMLC [facility] [id number] [facility] 2020-12-04 2020-12-04 Outpatient [facility]LMLC [facility] [id number] [facility] 2020-11-16 2020-11-16 Outpatient [facility]LMLC [facility] [id number] [facility] 2020-11-06 2020-11-06 Outpatient [facility]LMLC [facility] [id number] [facility] 2020-10-03 2020-10-03 Outpatient STLMLC STLMLC [id number] [facility] 2020-09-28 2020-09-28 Outpatient [facility]C [facility] [id number] [facility] 2020-08-24 2020-08-24 Outpatient STLMLC STLMLC [id number] [facility] 2020-08-17 2020-08-17 Outpatient STLMLC STL[facility] [id number] [facility] 2020-08-11 2020-08-11 Outpatient [facility]LMLC [facility] [id number] [facility] 2020-08-03 2020-08-03 Outpatient STLMLC STLML[facility] [id number] [facility] 2020-07-31 2020[facility]07-31 [facility] [id number] [facility] 2020-06-26 2020-06-26 [facility] [id number] [facility] 2020-06-20 2020-06-20 Outpatient FERGUSON_JO MEHOP MEHOP [id number] [place] 10[place]21:00 [place] [id number] [facility] 2020-06-15 2020[facility]06-15 [facility] [id number] [facility] 2020-06-14 2020-06-14 [facility] [id number] [facility] 2020-06-12 2020-06-12 [facility] [id number] [facility] 2020-06-07 2020-06-07 Outpatient FERGUSON_JO MEHOP MEHOP [id number] [place] 03:50:00 03:50:[place] [id number] [facility] 2020-06-07 2020-06-07 Outpatient FERGUSON_JO MEHOP MEHOP [id number] [place] 03:50:00 03:50:00 [place] [id number] [facility] 2020-06-01 2020-06-01 [facility] [id number] [facility] 2020-05-29 2020-05-29 [facility] [id number] [facility] 2020-05-08 2020-05-08 [facility] [id number] [facility] 2020-05-04 2020-05-04 [facility] [id number] [facility] 2020-04-24 2020-04-24 Outpatient [facility] [id number] [facility] 2020-04-20 2020-04-20 Outpatient [facility] [id number] [facility] 2020-04-19 2020-04-19 Outpatient [facility] [id number] [facility] 2020-04-18 2020-04-18 Outpatient [facility] [id number] [facility] 2020-04-17 2020-04-17 Outpatient [facility] [id number] [facility] 2020-04-11 2020-04-12 Outpatient [facility] [id number] [facility] 14:07:00 04:59:00 [facility] 00 l [facility] 2020-04-11 2020-04-11 Outpatient GOGIA, MHBL MHBL [id number] MHBL 09:07:00 23:59:00 [facility] 2020-01-26 2020-01-26 [facility] [id number] [facility] 14:36:00 14:36:00 t Saxon Dotstudioz s - Drive [facility] Medicine Outpati ent Clinics 2020-01-24 2020-01-24 [facility] [id number] 13:45:00 13:45:00 t Saxon [employer] s - Drive [facility] l Medicine Outpati ent Clinics 2020-01-19 2020-01-19 [facility] [id number] 08:40:00 08:40:00 t Saxon [employer] s - Drive [facility] Family [facility] l Medicine Outpati ent Clinics 2020-01-18 2020-01-18 [facility] [id number] 15:20:00 15:20:00 t Saxon [employer] - Drive [facility] Medicine Medicine Outpati ent Clinics 2020 2020 [facility] [id number] 14:44:00 14:44:00 t [employer] [facility] Medicine Outpati ent Clinics 2020 2020 [facility] [id number] [facility] 09:39:00 09:39:00 t [employer] [facility] Medicine Outpati ent Clinics 2019-12-24 2019-12-24 [facility] [id number] [facility] 17:41:00 17:41:00 t [employer] [facility] Medicine Outpati ent Clinics 2019-12-21 2019-12-21 [facility] [id number] 09:20:00 09:20:00 t [employer] [facility] Medicine Outpati ent Clinics 2019-10-27 2019-10-27 [facility] [id number] [facility] 14:08:00 14:08:00 t [employer] [facility] Medicine Outpati ent Clinics 2019-10-13 2019-10-13 [facility] [id number] [facility] 11:40:00 11:40:00 t [employer] [facility] Medicine Outpati ent Clinics 2019-10-04 2019-10-04 [facility] [id number] [facility] 08:00:00 08:00:00 t [employer] [facility] Medicine Outpati ent Clinics 2019-08-26 2019-08-26 [facility] [id number] 09:30:00 09:30:00 t [employer] [facility] Medicine Outpati ent Clinics 2019-08-25 2019-08-25 [facility] [id number] 11:51:00 11:51:00 t [employer] [facility] Medicine Outpati ent Clinics 2019-08-24 2019-08-24 [facility] [id number] 14:40:00 14:40:00 t Saxon [employer] s - Drive [facility] Medicine Medicine Outpati ent Clinics 2019-08-17 2019-08-17 [facility] [id number] [facility] 11:59:00 11:59:00 t Saxon [employer] s - Drive [facility] Medicine l Medicine Outpati ent Clinics 2019-07-05 2019-07-05 [facility] [id number] [facility] 16:00:00 16:00:00 t Saxon [employer] s - Drive [facility] Medicine l Medicine Outpati ent Clinics 2019-06-22 2019-06-22 [facility] [id number] 11:53:00 11:53:00 t Saxon [employer] s - [employer] [facility] l Medicine Outpati ent Clinics 2019-06-22 2019-06-22 [facility] [id number] 10:22:00 10:22:00 t Saxon [employer] - [employer] [facility] Medicine Outpati ent Clinics 2019-05-24 2019-05-24 [facility] [id number] 10:00:00 10:00:00 t Saxon [employer] s - [employer] [facility] l Medicine Outpati ent Clinics 2019-05-05 2019-05-05 [facility] [id number] 15:44:00 15:44:00 t Saxon [employer] - [employer] [facility] Medicine Outpati ent Clinics 2019-05-04 2019-05-04 [facility] [id number] 15:20:00 15:20:00 t Saxon [employer] s - Drive [facility] Medicine l Medicine Outpati ent Clinics 2019-04-27 2019-04-27 [facility] [id number] [facility] 17:18:00 17:18:00 t Saxon [employer] s - Drive [facility] l Medicine Outpati ent Clinics 2019-04-26 2019-04-26 [facility] [id number] 17:24:00 17:24:00 t Saxon [employer] s - Drive [facility] Medicine Outpati ent Clinics 2019-04-20 2019-04-20 [facility] [id number] 08:27:00 08:27:00 [facility] 2019-04-12 2019-04-12 Outpatient Jam Rivera [id number] [facility] 11:00:00 11:00:00 [facility] 2019-03-30 2019-03-30 Outpatient Jam Rivera [id number] [facility] 14:00:00 14:00:00 [facility] Results Test Description Test Time Test Comments Results Result Comments Source CHEM PANEL 2021-05-16 20:32:00 Test Item Value Reference Range Interpretation Comme nts POC Creatinine (test code = POC Creatinine) 0.6 0.5-1.[address] [facility] GoInstantannCHEM [id number] 20:32:00 Test Item Value Reference Range Interpretation Comments eGFR (test code = eGFR) 105 [facility], STEREOTACTIC BIOPSY, BREAST, [id number] 15:59:00Reason for Exam:->calcificationAddendum BeginsMRN#: [id number]: 05/14/2017 Lizzette Velásquez M.D. 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 Addendum EndsN#: [id number] - MM, STEREOTACTIC BIOPSY, BREAST, LEFTSTEREOTACTIC GUIDED [...] the calcifications. Lizzette Velásquez M.D. pth/penrad:05/09/2017 11:07:57 Manager Analytical: Felicia Rizzo RT(R)(M), [facility] [id number] TISSUE EXAM 2017-05-12 12:48:00Surgical Pathology Report Case: [id number] Authorizing Provider: Lizzette Velásquez MD Collected: 05/09/2017 1110 Ordering Location: [facility] Received: 05/09/2017 1312 Pathologist: Jackie Maradiaga MD Specimen: Breast, Left, LEFT MIDDLE 12 BREAST CALCIFICATION BREAST, LEFT, MIDDLE 12 O'CLOCK, CALCIFICATIONS, STEREOTACTIC CORE NEEDLE BIOPSY: - HYALINIZED FIBROADENOMA - COLUMNAR CELL HYPERPLASIA - COLUMNAR CELL CHANGES - MICROCALCIFICATIONS, COARSE, ASSOCIATED WITH FIBROADENOMA Signing Pathologist Direct Phone Line: [phone] signed by Jackie Maradiaga MD on 05/12/2017 at 12:48 PMIn the sections examined, no atypical hyperplasia or carcinoma is identified.[id number] lesion Left middle 12 o'clock breast calcifications The specimen is received in a formalin-filled container labeled with the patient's information and labeled "leftmiddle 12 o'clock breast calcifications" and consists of multiple yellow-white breast core biopsies ranging in length from 0.6 to 2.5 cm.Ink code: Black.The specimen is submitted entirely in A1 and A2.CG/ewPerformed.[facility], Department of Pathology, [address] [place] [address], [place] [address], DI, DIGITAL, UNILATERAL, CONFER MARTA, MAMMO, LEFT INCLUDING [id number] 11:07:00Left breast calcificationsMRN#: [id number] - MM, DIGITAL, UNILATERAL, CONFER MARTA, MAMMO, [...] pathology results. Lizzette Velásquez M.D. pth/:05/09/2017 11:07:15 Manager Analytical: Felicia IRVIN (R)), [facility] Mammogram BI-RADS: Post-procedure mammogram for marker placement [id number] MM, MAMMO, SPECIMEN, RADIOGRAPH, LEFT 2017-05-09 11:06:00Reason for exam:->Left breast calcificationsMRN#: [id number] - MM, MAMMO, SPECIMEN, RADIOGRAPH, LEFTSPECIMEN LEFT BREAST: 05/09/2017Five stereotactic guided biopsy specimens were imaged for the area of calcifications located in the left breast at 12 o'clock middle depth. IMPRESSION: SPECIMENThe imaged specimens includes the calcifications. Lizzette Velásquez M.D. pth/:05/09/2017 11:06:40 Manager Analytical: Felicia SCHNEIDER)(Phil), [facility] [id number]
[2021-09-29] MEDS ORDERED: NA CHLORIDE 0.9% 1,000 ML ONE (11:55)
[2021-09-29] MEDS ORDERED: PANTOPRAZOLE 40 MG INJ ONE (11:55)
[2021-09-29 12:11] LABS: Absolute Lymphocytes (CBC) 1.3 K/uL (0.7-4.9); Hematocrit 35.7 % (36.0-45.0); Lymphocytes % 23.8 % (15.3-44.8); MPV 8.7 fL (7.6-11.3); RBC Red Blood Cell Count 4.25 M/uL (3.86-4.86)
[2021-09-29] MEDS ORDERED: ONDANSETRON 4 MG/2 ML VIAL ONE (12:18)
[2021-09-29] MEDS ORDERED: FENTANYL CITR 100 MCG/2 ML ONE (12:18)
[2021-09-29 12:26] LABS: Albumin 3.1 g/dL (3.4-5.0); Bilirubin Total 0.3 mg/dL (0.2-1.0); Potassium 4.1 mmol/L (3.5-5.1); Protein, Total 6.5 g/dL (6.4-8.2)
--- NOTE | 2021-09-29 13:05 | EDPHYS ---
Physician Documentation [facility] Name: Dena Nance Age: 51 yrs Sex: Female : 1970 Arrival Date: 09/29/2021 Time: 11:40 Bed 5 Private MD: Anette Benjamin ED Physician Roberto Alejo HPI: 09/29 12:05 This 51 yrs old Female presents to ER via Ambulatory with complaints of kb Abdominal Pain, Bloody Stools. 12:05 The patient presents with abdominal pain in the upper abdomen. The patient has been kb recently seen at the [facility] Emergency Department, yesterday, for similar complaints labs were performed, CT scan was performed. 12:06 Onset: The symptoms/episode began/occurred 3 day(s) ago. The symptoms do not radiate. kb Associated signs and symptoms: Pertinent positives: blood in stools, diarrhea. The symptoms are described as constant. Modifying factors: The symptoms are alleviated by nothing, the symptoms are aggravated by nothing. Severity of pain: At its worst the pain was moderate in the emergency department the pain is unchanged. The patient has not experienced similar symptoms in the past. Pt reports upper abd pain and diarrhea that started 3 days ago. Was seen yesterday by me and diagnostics were wnl. Came back today for blood in stool. 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 - Social history:: Smoking status: Patient denies any tobacco usage or history of. ROS: 12:05 Constitutional: Negative for fever, chills, and weight loss. kb 12:05 Abdomen/GI: Positive for abdominal pain, diarrhea, rectal bleeding, Negative for nausea and vomiting. 12:05 All other systems are negative. Exam: 12:04 Constitutional: This is a well developed, well nourished patient who is awake, alert, kb and in no acute distress. Head/Face: Normocephalic, atraumatic. ENT: Moist Mucous membranes Cardiovascular: Regular rate and rhythm with a normal S1 and S2. No gallops, murmurs, or rubs. No pulse deficits. Respiratory: Respirations even and unlabored. No increased work of breathing. Talking in full sentences Skin: Warm, dry with normal turgor. Normal color. MS/ Extremity: Pulses equal, no cyanosis. Neurovascular intact. Full, normal range of motion. Neuro: Awake and alert, GCS 15, oriented to person, place, time, and situation. Moves all extremities. Normal gait. Psych: Awake, alert, with orientation to person, place and time. Behavior, mood, and affect are within normal limits. 12:04 Abdomen/GI: Inspection: abdomen appears normal, Bowel sounds: normal, in all quadrants, Palpation: soft, in all quadrants, mild abdominal tenderness, in the right lower quadrant and left lower quadrant, moderate abdominal tenderness, in the right upper quadrant and left upper quadrant, Rectal exam: rectal tone normal, Stool: normal, guaiac negative, hemorrhoid(s), external. Vital Signs: 12:20 BP 119 / 62; Pulse 67; Resp 20 S; Temp 98.0(O); Pulse Ox 99% on R/A; Weight 66.68 kg; jg9 Height 5 ft. 4 in. (162.56 cm) (R); Pain 7/10; 12:30 BP 127 / 62; Pulse 70; Resp 14 S; Pulse Ox 99% on R/A; Pain 5/10; jg9 13:00 BP 117 / 73; Pulse 65; Resp 14 S; Pulse Ox 100% ; Pain 4/10; jg9 12:20 Body Mass Index 25.23 (66.68 kg, 162.56 cm) 9 MDM: 11:41 Patient medically screened. 12:05 Data reviewed: vital signs, nurses notes. Data interpreted: Pulse oximetry: on room air kb is 100 %. Interpretation: normal. 13:04 Data reviewed: I have discussed the patient's presentation/case with the attending Emergency Department Physician;. Counseling: I had a detailed discussion with the patient and/or guardian regarding: the historical points, exam findings, and any diagnostic results supporting the discharge/admit diagnosis, lab results, the need for outpatient follow up, a building tech, to return to the emergency department if symptoms worsen or persist or if there are any questions or concerns that arise at home. ED course: Pt has appt with GI on 10/04/21. 09/29 11:48 Order name: CBC with Diff kb 09/29 11:48 Order name: CMP; Complete Time: 12:27 kb 09/29 11:48 Order name: Lipase; Complete Time: 12:27 kb 09/29 11:48 Order name: Occult Blood--Ancillary eb 09/29 11:48 Order name: IV Saline Lock; Complete Time: 12:02 kb 09/29 11:48 Order name: Labs collected and sent; Complete Time: 12:02 kb Administered Medications: 12:02 Drug: NS 0.9% 1000 ml Route: IV; Rate: 1000 ml; Site: right antecubital; jg9 13:09 Follow up: IV Status: Completed infusion; IV Intake: 1000ml jg9 12:08 Drug: ProTONIX (pantoprazole) 40 mg Route: IVP; Site: right antecubital; jg9 13:09 Follow up: Response: No adverse reaction j9 12:17 Drug: Zofran (Ondansetron) 4 mg Route: IVP; Site: right antecubital; jg9 13:08 Follow up: Response: No adverse reaction jg9 12:18 Drug: fentaNYL (PF) 50 mcg {Note: RASS-0.} Route: IVP; Site: right antecubital; jg9 13:08 Follow up: Response: No adverse reaction; Marked relief of symptoms; Pain is decreased; jg9 RASS: Alert and Calm (0) Disposition: 13:59 Co-signature as Attending Physician, Roberto Alejo MD. rn Disposition Summary: 09/29/21 13:05 Discharge Ordered Location: Home kb Condition: Stable kb Diagnosis - Upper abdominal pain, unspecified kb - Diarrhea, unspecified kb Followup: kb - With: Emergency Department - When: As needed - Reason: Worsening of condition Followup: kb - With: Private Physician - When: 2 - 3 days - Reason: Recheck today's complaints, Continuance of care, Re-evaluation by your physician Discharge Instructions: - Discharge Summary Sheet kb - Food Choices to Help Relieve Diarrhea, Adult kb - Abdominal Pain, Adult, [id number] kb - Diarrhea, Adult, [id number] kb Forms: - Medication Reconciliation Form kb - Thank You Letter kb - Antibiotic Education kb - Prescription Opioid Use kb Signatures: Dispatcher [employer] EDValentina Escalante, MILLING GENERAL SUPERINTENDENT-C MILLING GENERAL SUPERINTENDENT-Ckb Roberto Alejo MD MD rn Smirch, Shelby RN RN Flavia Kumar RN RN jg9 Corrections: (The following items were deleted from the chart) 12:05 12:05 Abdomen/GI: Positive for abdominal pain, diarrhea, Negative for nausea and kb vomiting, kb
--- NOTE | 2021-09-29 13:05 | ER ---
Nurse's Notes [facility] Name: Dena Nance Age: 51 yrs Sex: Female : 1970 Arrival Date: 09/29/2021 Time: 11:40 Bed 5 Private MD: Anette Benjamin Diagnosis: Upper abdominal pain, unspecified;Diarrhea, unspecified Presentation: 09/29 11:44 Chief complaint: Patient states: Seen yesterday for abd pain/ diarrhea. PT states that ss the diarrhea is improving, but she now has some blood in her stools. Coronavirus screen: Client denies travel out of the [place] in the last 14 days. Ebola Screen: Patient denies exposure to infectious person. Patient denies travel to an Ebola-affected area in the 21 days before illness onset. Initial Sepsis Screen: Does the patient meet any 2 criteria? No. Patient's initial sepsis screen is negative. Does the patient have a suspected source of infection? No. Patient's initial sepsis screen is negative. Risk Assessment: Do you want to hurt yourself or someone else? Patient reports no desire to harm self or others. Onset of symptoms was September 28, 2021. 11:44 Method Of Arrival: Ambulatory ss 11:44 Acuity: MARIANA 3 ss Triage Assessment: 12:09 General: Appears uncomfortable, Behavior is crying. jg9 AUTHORIZATION NURSE: 12:41 LMP N/A - Hysterectomy jg9 Historical: - Allergies: 11:46 NKA; ss - PMHx: 11:46 cirrhosis of liver; Diverticulitis; fatty liver; Diabetes - NIDDM; gastritis; Colitis; ss Pancreatitis; - PSHx: 11:46 Cholecystectomy; hysterectomy; ss - Immunization history:: Adult Immunizations up to date. - Social history:: Smoking status: Patient denies any tobacco usage or history of. Screenin:09 Abuse screen: Denies threats or abuse. Denies injuries from another. Nutritional jg9 screening: Has had N/V for 3 or more days. Tuberculosis screening: No symptoms or risk factors identified. Fall Risk None identified. Assessment: 12:08 Reassessment: No changes from previously documented assessment. Pain: Complains of pain jg9 in left lower quadrant and right lower quadrant and left upper quadrant and right upper quadrant Pain currently is 10 out of 10 on a pain scale. Also complains of labile emotions, inability to concentrate. GI: Bowel sounds present X 4 quads. Abd is soft Abdomen is tender to palpation X 4 quads. Vital Signs: 12:20 BP 119 / 62; Pulse 67; Resp 20 S; Temp 98.0(O); Pulse Ox 99% on R/A; Weight 66.68 kg; jg9 Height 5 ft. 4 in. (162.56 cm) (R); Pain 7/10; 12:30 BP 127 / 62; Pulse 70; Resp 14 S; Pulse Ox 99% on R/A; Pain 5/10; jg9 13:00 BP 117 / 73; Pulse 65; Resp 14 S; Pulse Ox 100% ; Pain 4/10; jg9 12:20 Body Mass Index 25.23 (66.68 kg, 162.56 cm) jg9 ED Course: 11:40 Patient arrived in ED. am2 11:41 Anette Benjamin MD is Private Physician. am2 11:41 Valentina Myles FNP-C [facility]. kb 11:41 Roberto Aeljo MD is Attending Physician. kb 11:46 Triage completed. ss 11:46 Arm band placed on right wrist. ss 12:02 Inserted saline lock: 20 gauge in right antecubital area, using aseptic technique. jg9 Blood collected. 12:24 Appears tearful. Pt visited by . jg9 12:38 Flavia Braun, RN is Primary Nurse. jg9 12:43 Patient has correct armband on for positive identification. Bed in low position. Call jg9 light in reach. Side rails up X 1. 13:16 No provider procedures requiring assistance completed. IV discontinued, intact, romero Pressure dressing applied. Administered Medications: 12:02 Drug: NS 0.9% 1000 ml Route: IV; Rate: 1000 ml; Site: right antecubital; jg9 13:09 Follow up: IV Status: Completed infusion; IV Intake: 1000ml jg9 12:08 Drug: ProTONIX (pantoprazole) 40 mg Route: IVP; Site: right antecubital; jg9 13:09 Follow up: Response: No adverse reaction jg9 12:17 Drug: Zofran (Ondansetron) 4 mg Route: IVP; Site: right antecubital; jg9 13:08 Follow up: Response: No adverse reaction j9 12:18 Drug: fentaNYL (PF) 50 mcg {Note: RASS-0.} Route: IVP; Site: right antecubital; jg9 13:08 Follow up: Response: No adverse reaction; Marked relief of symptoms; Pain is decreased; jg9 RASS: Alert and Calm (0) Intake: 13:09 IV: 1000ml; Total: 1000ml. jg9 Outcome: 13:05 Discharge ordered by MD. noel 13:16 Discharged to home 13:16 Condition: good 13:16 Discharge instructions given to patient. 13:16 Patient left the ED. romero Signatures: Valentina Myles, SHANA-C INSULATOR APPRENTICE-Yeni Weems RN RN Liza Vásquez Jennifer, RN RN jg9 Taryn Shabazz RN RN romero
[2021-09-29 13:41] VITALS: BP 117/73; O2SAT 100
[2021-09-29 13:43] VITALS: TEMP 98
[2021-09-29 13:44] LABS: Blood Morphology Comment NOT SEEN (NOT SEEN); Platelet Estimate DECR; White Blood Cell Scan OK (OK)
== END 2021-09-29 13:16 | disposition home or self-care (01) ==
LOC: ER 11:39
DX: R19.7 Diarrhea, unspecified (principal); E11.610 Type 2 diabetes mellitus with diabetic neuropathic arthropathy; K74.60 Unspecified cirrhosis of liver
CPT/HCPCS: 96361; 85025; 36415; 83690; 80053; 96375; 96374; 99283; C9113; J3010; J7030; J2405

== ENCOUNTER 2021-10-31 12:23 | Emergency (ER) | payer OTHER ==
--- OUTSIDE RECORDS SUMMARY | 2021-10-31 12:26 | XMS REPORT | Continuity of Care Document ---
:1970 Author Organization [facility] t Address [address] [place] [address] Care Team Providers Name Role Phone Sharpless Primary Care Physician Theresa Benjamin Attending Clinician Unavailable JAVY Attending Clinician Unavailable ROS Attending Clinician [...] ER UNSPECI ABDOMINAL PAIN, UNSPECI Active 05/09/2021 [facility] DX: Diagnosis Active 2019-062020-04-11 Mem oria R10.10, 0-07 09:14:00 l R14.0 DX: 00:00: [place] R10.10, 00 R14.0 Active 04/05/2020 [facility] Allergies, Adverse Reactions, Alerts Allergy Allergy Status Severity Reaction(s) Onset Inactive Treating Comm ents Source Name Type Date Date Clinician NO KNOWN Allergy Active [facility] Boothe HENRI [facility] Social History Social Habit Start Date Stop Date Quantity Comments Source Tobacco use and 2017-05-09 2017-05-[address] [facility] silverios - exposure 00:00:00 00:00:00 [facility] Sex Assigned At [birth year] [place] 00:00:00 00:00:00 [facility] Smoking Status Start Date Stop Date Source Never smoker [facility] Medications Ordered Filled Start Stop Current Ordering Indication Dosage Frequency Signature Comments Components Source Medication Medication Date Date Medication? Clinician (SIG) Name Name Sertraline Sertraline 2018-06 Yes Na Benjamin [address] [facility] HCl HCl 2-24 [facility] 2016-06 Yes 10mg QD Take [address] [facility] in 1-10 by mouth [facility] - (JARDIANCE) 10:01: daily. Medi michele 10 mg 13 Center tablet sertraline 2016-06 Yes 50mg QD Take [address] (ZOLOFT) 50 1-10 by mouth Luke [facility] - MG tablet 10:01: daily. [address]ica [address] 2016-06 Yes 10mg QD Take [address] [facility] [address] in 1-10 by mouth [facility] (JARDIANCE) 10:01: daily. Medi michele 10 mg 13 Center tablet sertraline 2016-06 Yes 50mg QD Take [address] (ZOLOFT) 50 1-10 by mouth Luke [facility] - MG tablet 10:01: daily. Medica l [address] [place] [address] glimepiride 2016-06 Yes 4mg Take 4 mg [...] Immunizations Ordered Filled Immunization Date Status Comments [facility] e Immunization Name Name Evette Alas - 2019-03-[address] [facility] - multidose vial multidose vial 00:00:00 [facility] Procedures This patient has no known procedures. Encounters Start End Encounter Admission Attending Care Care Encounter Source Date/Time Date/Time Type Type Clinicians Facility Department ID 2021-10-08 Outpatient Benjamin, Anette STLMLC STLMLC [id number] [facility] 11:37:01 [id number] [facility] 2021-09-24 Outpatient Anette Benjamin STLC STLMLC [id number] [facility] 11:59:00 [id number] [facility] 2021-09-06 Outpatient Sourav Anette STLC STLMLC [id number] [facility] [address] 08[facility]34:01 [facility] 2021-08-21 Outpatient Sourav Na STLC STLMLC [id number] [facility] 11:41:00 [facility] 2021-07-25 Outpatient Anette Benjamin STLC STLMLC [id number] [facility] [address] 14:33:29 [facility] 2021-07-25 Outpatient Benjamin, Na STLC STLMLC [id number] [facility] [address] 14:24:24 [id number] [facility] 2021-07-25 Outpatient Sourav Na STLMLC STLMLC [id number] [facility] [address] 13:57:58 [facility] 2021-07-25 Outpatient Anette Benjamin STLMLC STLMLC [id number] [facility] [address] 13:56:51 [id number] [facility] 2021-07-25 Outpatient Benjamin, Na STLMLC STLMLC [id number] [facility] [address] 13:47:46 [id number] [facility] 2021-07-25 Outpatient Benjamin, Na STLMLC STLMLC [id number] [facility] [address] 12:48:36 [id number] [facility] 2021-07-25 Outpatient Benjamin, Na STLMLC STLMLC [id number] [facility] 12:33:46 [id number] [facility] 2021-07-25 Outpatient Benjamin, Na STLMLC STLMLC [id number] [facility] [address] 12:31:18 [id number] [facility] 2021-07-25 Outpatient Benjamin, Na STLMLC STLMLC [id number] [facility] 12:26:58 [id number] [facility] 2021-07-25 Outpatient Benjamin, Na STLMLC STLMLC [id number] [facility] [address] 12:09:32 [id number] [facility] 2021-07-25 Outpatient Benjamin, Na STLMLC STLMLC [id number] [facility] [address] 12:02:06 [id number] [facility] 2021-07-25 Outpatient Benjamin, Na STLMLC STLMLC [id number] [facility] [address] 12:01:44 [id number] [facility] 2021-07-25 Outpatient Benjamin, Na STLMLC STLMLC [id number] [facility] [address] 11:58:40 [id number] [facility] 2021-07-25 Outpatient Benjamin, Na STLMLC STLMLC [id number] [facility] [address] 11:57:47 [id number] [facility] 2021-07-25 Outpatient Benjamin, Na STLMLC STLMLC [id number] [facility] 11:57:12 [id number] [facility] 2021-07-25 Outpatient Benjamin, Na STLMLC STLMLC [id number] [facility] [address] 11:56:42 [id number] [facility] 2021-07-25 Outpatient Benjamin, Na STLMLC STLMLC [id number] [facility] [address] 11:55:04 [id number] [facility] 2021-07-25 Outpatient Benjamin, Na STLMLC STLMLC [id number] [facility] [address] 11:32:26 [id number] [facility] 2021-07-25 Outpatient Benjamin, Na STLMLC STLMLC [id number] [facility] [address] 11:32:11 [id number] [facility] 2021-07-25 Outpatient Benjamin, Na STLMLC STLMLC [id number] [facility] [address] 11:30:56 [id number] [facility] 2021-07-25 Outpatient Benjamin, Na STLMLC STLMLC [id number] [facility] 11:24:01 [id number] [facility] 2021-07-25 Outpatient Benjamin, Na STLMLC STLMLC [id number] [facility] [address] 11:16:56 [id number] [facility] 2021-07-25 Outpatient Benjamin, Na STLMLC STLMLC [id number] [facility] [address] 11:10:23 [id number] [facility] 2021-07-25 Outpatient Benjamin, Na STLMLC STLMLC [id number] [facility] 11:09:28 [id number] [facility] 2021-07-25 Outpatient Benjamin, Na STLMLC STLMLC [id number] [facility] [address] 10:58:23 [id number] [facility] 2021-07-25 Outpatient Benjamin, Na STLMLC STLMLC [id number] [facility] 10:57:38 [id number] [facility] 2021-10-24 2021-10-24 Outpatient ANISHAPUNEET AGUILAR [address] [place] 04:35:00 04:35:00 [id number] [facility] 2021-10-17 2021-10-17 ambulatory STLMLC [facility]MLC [id number] [facility] 2021-10-09 2021-10-09 ambulatory [facility]LMLC [facility] [id number] [facility] 2021-10-01 2021-10-01 ambulatory STLMLC [facility] [id number] [facility] 2021-09-27 2021-09-27 Outpatient GOGIA, MHSE MHSE [id number] 07:32:00 23:59:00 [facility] 2021-09-10 2021-09-10 ambulatory STLMLC [facility] [id number] [facility] 2021-09-04 2021-09-04 ambulatory STLMLC [facility] [id number] [facility] 2021-08-21 2021-08-21 ambulatory [facility]LMLC [facility] [id number] [facility] 2021-08-21 2021-08-21 ambulatory [facility]LMLC [facility] [id number] [facility] 2021-08-20 2021-08-20 ambulatory STLMLC [facility]C [id number] [facility] 2021-05-21 2021-05-21 ambulatory [facility]LMLC [facility] [id number] [facility] 2021-05-21 2021-05-21 ambulatory [facility]LMLC [facility] [id number] [facility] 2021-05-16 2021-05-17 Outpatient [facility] [id number] Ravinder 18:45:00 05:59:00 [facility] 01 l [facility] 2021-05-16 2021-05-16 Outpatient GOGIA, MHSE MHSE [id number] MH 12:45:00 23:59:00 RONALD Demetrio garrido [facility] 2021-04-05 2021-04-05 Outpatient STLMLC [facility] [id number] [facility] 2021-03-08 2021-03-08 Outpatient [facility]LMLC [facility] [id number] [facility] 2021-01-29 2021-01-29 Outpatient [facility]LMLC [facility] [id number] [facility] 2021-01-17 2021-01-17 Outpatient [facility]LMLC [facility] [id number] [facility] 2021-01-03 2021-01-03 Outpatient [facility]MLC [facility] [id number] [facility] 2021-01-02 2021-01-02 Outpatient [facility] [id number] [facility] 2020-12-04 2020-12-04 Outpatient [facility]MLC [facility] [id number] [facility] 2020-11-16 2020-11-16 Outpatient [facility]MLC [facility] [id number] [facility] 2020-11-06 2020-11-06 Outpatient [facility]MLC [facility] [id number] [facility] 2020-10-03 2020-10-03 Outpatient [facility]MLC [facility] [id number] [facility] 2020-09-28 2020-09-28 Outpatient [facility] [id number] [facility] 2020-08-24 2020-08-24 Outpatient [facility]LMLC [facility] [id number] [facility] 2020-08-17 2020[facility]08-17 Outpatient [facility] [id number] [facility] 2020-08-11 2020-08-11 Outpatient [facility] [id number] [facility] 2020-08-03 2020-08-03 Outpatient [facility] [id number] [facility] 2020-07-31 2020-07-31 Outpatient [facility] [id number] [facility] 2020-06-26 2020-06-26 Outpatient [facility] [id number] [facility] 2020-06-20 2020-06-20 Outpatient FERGUSON_JO MEHOP MEHOP [id number] [place] 10:21:00 10:21:00 [id number] [facility] 2020-06-15 2020-06-15 Outpatient [facility] [id number] [facility] 2020-06-14 2020-06-14 Outpatient [facility] [id number] [facility] 2020-06-12 2020-06-12 Outpatient [facility] [id number] [facility] 2020-06-07 2020-06-07 Outpatient FERGUSON_JO MEHOP MEHOP [id number] [place] 03:50:00 03:50:00 [place] [id number] [facility] 2020-06-07 2020-06-07 Outpatient DARIA AGUILAR [facility] [id number] [place] 03:50:00 03:50:00 HN [id number] [facility] 2020-06-01 2020-06-01 Outpatient [facility] [id number] [facility] 2020-05-29 2020-05-29 Outpatient [facility] [id number] [facility] 2020-05-08 2020-05-08 Outpatient [facility] [id number] [facility] 2020-05-04 2020-05-04 Outpatient [facility] [id number] [facility] 2020-04-24 2020-04-24 Outpatient [facility] [id number] [facility] 2020-04-20 2020-04-20 Outpatient [facility] [id number] [facility] 2020-04-19 2020-04-19 Outpatient [facility] [id number] [facility] 2020-04-18 2020-04-18 Outpatient [facility] [id number] [facility] 2020-04-17 2020-04-17 Outpatient [facility] [id number] [facility] 2020-04-11 2020-04-12 Outpatient [facility] [id number] [facility] 14:07:00 04:59:00 [place] [address] l [facility] 2020-04-11 2020-04-11 Outpatient GOGIA, MHBL MHBL [id number] MHBL 09:07:00 23:59:00 [facility] 2020-01-26 2020-01-26 [facility] [id number] [facility] 14:36:00 14:36:00 t Terabitz s [place] [facility] Outpati ent Clinics 2020-01-24 2020-01-24 [facility] [id number] [facility] 13:45:00 13:45:00 t Terabitz s [place] [facility] Clinics 2020-01-19 2020-01-19 [facility] [id number] [facility] 08:40:00 08:40:00 t Terabitz s [place] [facility] Outpati [facility] Clinics 2020-01-18 2020-01-18 [facility] [id number] [facility] 15:20:00 15:20:00 t Terabitz s [place] [facility] Outpat[facility] Clinics 2020 2020 [facility] [id number] [facility] 14:44:00 14:44:00 t Terabitz s [place] [facility] Outpat[facility] Clinics 2020 2020 [facility] [id number] [facility] 09:39:00 09:39:00 t Terabitz s [place] [facility] Outpati ent Clinics 2019-12-24 2019-12-24 [facility] [id number] [facility] 17:41:00 17:41:00 t Terabitz s [place] [facility] Outpati [facility] Clinics 2019-12-21 2019-12-21 [facility] [id number] [facility] 09:20:00 09:20:00 t Terabitz s [place] [facility] Medicine Outpati ent Clinics 2019-10-27 2019-10-27 [facility] [id number] 14:08:00 14:08:00 t Terabitz s [place] [facility] Medicine Outpati ent Clinics 2019-10-13 2019-10-13 [facility] [id number] 11:40:00 11:40:00 t Nazareth [employer] [place] [facility] l Medicine Outpati ent Clinics 2019-10-04 2019-10-04 [facility] [id number] [facility] 08:00:00 08:00:00 t Nazareth [employer] [place] [facility] Medicine l Medicine Outpati ent Clinics 2019-08-26 2019-08-26 [facility] [id number] [facility] 09:30:00 09:30:00 t Nazareth [employer] [place] [facility] l Medicine Outpati ent Clinics 2019-08-25 2019-08-25 [facility] [id number] [facility] 11:51:00 11:51:00 t The Skimm [facility] Medicine l Medicine Outpati ent Clinics 2019-08-24 2019-08-24 [facility] [id number] [facility] 14:40:00 14:40:00 t Nazareth [employer] [place] [facility] Medicine l Medicine Outpati ent Clinics 2019-08-17 2019-08-17 [facility] [id number] [facility] 11:59:00 11:59:00 t Nazareth Anthillz [facility] Medicine l Medicine Outpati ent Clinics 2019-07-05 2019-07-05 [facility] [id number] 16:00:00 16:00:00 t Terabitz s [place] [facility] Medicine l Medicine Outpati ent Clinics 2019-06-22 2019-06-22 [facility] [id number] 11:53:00 11:53:00 t Nazareth [employer] [place] [facility] Medicine l Medicine Outpati ent Clinics 2019-06-22 2019-06-22 [facility] [id number] 10:22:00 10:22:00 t Nazareth Anthillz [facility] Medicine l Medicine Outpati ent Clinics 2019-05-24 2019-05-24 [facility] [id number] [facility] 10:00:00 10:00:00 t Nazareth Anthillz [facility] Medicine Outpati ent Clinics 2019-05-05 2019-05-05 [facility] [id number] [facility] 15:44:00 15:44:00 t Nazareth RealTravel s - Drive [facility] Medicine Outpati ent Clinics 2019-05-04 2019-05-04 [facility] [id number] 15:20:00 15:20:00 t Nazareth RealTravel s - Drive [facility] Medicine Outpati ent Clinics 2019-04-27 2019-04-27 [facility] [id number] [facility] 17:18:00 17:18:00 t Nazareth [employer] - [employer] [facility] Medicine Outpati ent Clinics 2019-04-26 2019-04-26 [facility] [id number] [facility] 17:24:00 17:24:00 t Nazareth RealTravel s - Drive [facility] Medicine Outpati ent Clinics 2019-04-20 2019-04-20 [facility] [id number] [facility] 08:27:00 08:27:00 t Nazareth [employer] - [employer] [facility] Medicine Outpati ent Clinics 2019-04-12 2019-04-12 [facility] [id number] [facility] 11:00:00 11:00:00 t Terabitz s - [employer] [facility] Medicine Outpati ent Clinics 2019-03-30 2019-03-30 [facility] [id number] 14:00:00 14:00:00 t Terabitz s [place] [facility] Medicine Outpati ent Clinics Results Test Description Test Time Test Comments Results Result Comments Source CHEM PANEL 2021-05-16 20:32:00 Test Item Value Reference Range Interpretation Comme nts POC Creatinine (test code = POC Creatinine) 0.6 0.5-1.4 [facility] [id number] 20:32:00 Test Item Value Reference Range Interpretation Comments eGFR (test code = eGFR) [address] [facility], STEREOTACTIC BIOPSY, BREAST, [id number] 15:59:00Reason for Exam:->calcificationAddendum [facility] [id number]: 05/14/2017 Lizzette Velásquez M.D. 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 Addendum [facility]#: [id number] - MM, STEREOTACTIC BIOPSY, BREAST, LEFTSTEREOTACTIC GUIDED [...] correct location, five specimens were obtained using FeedoIVA device. A clip was inserted into the [...] the calcifications. Lizzette Velásquez M.D. pth/penrad:05/09/2017 11:07:57 Back Strip Machine Operator: Felicia Rizzo RT(R)(M), [facility] [id number] TISSUE EXAM 2017-05-12 12:48:00Surgical Pathology Report Case: [id number] Authorizing Provider: Lizzette Velásquez MD Collected: 05/09/2017 1110 Ordering Location: [facility] Received: 05/09/2017 1312 Pathologist: Jackie Maradiaga MD Specimen: Breast, Left, LEFT MIDDLE 12 BREAST CALCIFICATION BREAST, LEFT, MIDDLE 12 O'CLOCK, CALCIFICATIONS, STEREOTACTIC CORE NEEDLE BIOPSY: - HYALINIZED FIBROADENOMA - COLUMNAR CELL HYPERPLASIA - COLUMNAR CELL CHANGES - MICROCALCIFICATIONS, COARSE, ASSOCIATED WITH FIBROADENOMA Signing Pathologist Direct Phone Line: [phone] signed by Jackie Maradiaga MD on 05/12/2017 at 12:48 PMIn the sections examined, no atypical hyperplasia or carcinoma is identified.[id number] lesion Left middle 12 o'clock breast calcifications The specimen is received in a formalin-filled container labeled with the patient's information and labeled "leftmiddle 12 o'clock breast calcifications" and consists of multiple yellow-white breast core biopsies ranging in length from 0.6 to 2.5 cm.Ink code: Black.The specimen is submitted entirely in A1 and A2.CG/ewPerformed.[facility], Department of Pathology, [address] [place] [address], [place] [address], JF, DIGITAL, UNILATERAL, CONFER MARTA, MAMMO, LEFT INCLUDING [id number] 11:07:00Left breast calcificationsMRN#: [id number] - MM, DIGITAL, UNILATERAL, CONFER MARTA, MAMMO, [...] pathology results. Lizzette Velásquez M.D. pth/:05/09/2017 11:07:15 Back Strip Machine Operator: Felicia Rizzo RT(R)(M), [facility] Mammogram BI-RADS: Post-procedure mammogram for marker placement [id number] MM, MAMMO, SPECIMEN, RADIOGRAPH, LEFT 2017-05-09 11:06:00Reason for exam:->Left breast calcificationsMRN#: [id number] - MM, MAMMO, SPECIMEN, RADIOGRAPH, LEFTSPECIMEN LEFT BREAST: 05/09/2017Five stereotactic guided biopsy specimens were imaged for the area of calcifications located in the left breast at 12 o'clock middle depth. IMPRESSION: SPECIMENThe imaged specimens includes the calcifications. Lizzette Velásquez M.D. pth/:05/09/2017 11:06:40 Back Strip Machine Operator: Felicia BELLA(R)(M), [facility] [id number]
--- NOTE | 2021-10-31 13:17 | ER ---
Nurse's Notes [facility] Name: Dena Nance Age: 51 yrs Sex: Female : 1970 Arrival Date: 10/31/2021 Time: 12:27 Bed 20 Private MD: Anette Benjamin Diagnosis: Unspecified cirrhosis of liver;Other ascites;Abdominal pain, unspecified Presentation: 10/31 12:40 Chief complaint: Patient states: Abdominal pain, distention and diarrhea since jl7 yesterday. Coronavirus screen: At this time, the client does not indicate any symptoms associated with coronavirus-19. Ebola Screen: No symptoms or risks identified at this time. Initial Sepsis Screen: Does the patient meet any 2 criteria? No. Patient's initial sepsis screen is negative. Does the patient have a suspected source of infection? No. Patient's initial sepsis screen is negative. Risk Assessment: Do you want to hurt yourself or someone else? Patient reports no desire to harm self or others. Onset of symptoms was October 30, 2021. 12:40 Method Of Arrival: Ambulatory jl7 12:40 Acuity: MARIANA 3 jl7 Triage Assessment: 12:44 General: Appears in no apparent distress. uncomfortable, Behavior is calm, cooperative, jl7 appropriate for age. Pain: Complains of pain in abdomen diffusely Pain currently is 10 out of 10 on a pain scale. Cardiovascular: Patient's skin is warm and dry. Respiratory: Airway is patent Respiratory effort is even, unlabored, Respiratory pattern is regular, symmetrical. GI: Abdomen is round distended, Reports diarrhea, Patient currently denies nausea, vomiting. Derm: Skin is pink, warm \T\ dry. 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 jl7 Historical: - Allergies: 12:44 NKA; jl7 - Home Meds: 12:44 dicyclomine 20 mg Oral tab 4 times per day [Active]; gabapentin 300 mg Oral cap 3 times jl7 per day [Active]; glimepiride 4 mg Oral tab twice a day [Active]; lovastatin 40 mg Oral tab 1 tab once daily [Active]; metformin 1,000 mg Oral tab 2 times per day [Active]; omeprazole 40 mg Oral cpDR once daily [Active]; sertraline 50 mg Oral tab 1 tab once daily [Active]; Toujeo SoloStar subcutaneous [Active]; trazodone 50 mg Oral tab 2 times per day [Active]; - PMHx: 12:44 cirrhosis of liver; Colitis; Diabetes - NIDDM; Diverticulitis; fatty liver; gastritis; jl7 Pancreatitis; - PSHx: 12:44 Cholecystectomy; hysterectomy; jl7 - Immunization history:: Adult Immunizations up to date. - Social history:: Smoking status: Patient denies any tobacco usage or history of. - Family history:: not pertinent. - Hospitalizations: : No recent hospitalization is reported. Screenin:00 Abuse screen: Denies threats or abuse. Nutritional screening: No deficits noted. aa5 Tuberculosis screening: No symptoms or risk factors identified. Fall Risk None identified. Assessment: 13:00 General: Appears uncomfortable, Behavior is calm, cooperative. Pain: Complains of pain aa5 in abdomen diffusely Pain currently is 10 out of 10 on a pain scale. Quality of pain is described as pressure, Is continuous. Neuro: Level of Consciousness is awake, alert, obeys commands, Oriented to person, place, time, situation. Cardiovascular: Patient's skin is warm and dry. Respiratory: Airway is patent Respiratory effort is even, unlabored, Respiratory pattern is regular, symmetrical. GI: Abdomen is noted to have ascites, Bowel sounds present X 4 quads. Abd is non tender X 4 quads Reports lower abdominal pain, upper abdominal pain, diarrhea, Patient currently denies nausea, vomiting. : No signs and/or symptoms were reported regarding the genitourinary system. EENT: No signs and/or symptoms were reported regarding the EENT system. Derm: Skin is dry, Skin is normal, Skin temperature is warm. Musculoskeletal: Range of motion: intact in all extremities. Vital Signs: 12:40 BP 117 / 63; Pulse 82; Resp 17; Temp 97.9; Pulse Ox 97% ; Weight 68.04 kg; Height 5 ft. jl7 4 in. (162.56 cm); Pain 10/10; 12:40 Body Mass Index 25.75 (68.04 kg, 162.56 cm) jl7 ED Course: 12:27 Patient arrived in ED. am2 12:27 Anette Benjamin MD is Private Physician. am2 12:35 Ignacio Garcia, SHADE is Primary Nurse. bp 12:36 Roberto Alejo MD is Attending Physician. rn 12:44 Triage completed. jl7 12:44 Arm band placed on right wrist. jl7 13:00 Patient has correct armband on for positive identification. Bed in low position. Call aa5 light in reach. Side rails up X 1. 13:45 No provider procedures requiring assistance completed. Patient did not have IV access aa5 during this emergency room visit. Administered Medications: No medications were administered Outcome: 13:16 Discharge ordered by MD. rn 13:42 Discharged to home ambulatory. aa5 13:42 Condition: stable 13:42 Discharge instructions given to patient, Instructed on discharge instructions, follow up and referral plans. Demonstrated understanding of instructions, follow-up care. 13:45 Patient left the ED. aa5 Signatures: Roberto Alejo MD MD rn Calderon, Audri RN RN aa5 Tyrone Elizalde RN RN jl7 Liza Vásquez am2 Ignacio Garcia RN RN bp Corrections: (The following items were deleted from the chart) 13:51 13:50 Patient left the ED. aa5 aa5 13:55 13:00 GI: Abdomen is noted to have ascites, Bowel sounds present X 4 quads. Abd is non aa5 tender X 4 quads Reports lower abdominal pain, upper abdominal pain, Patient currently denies nausea, vomiting, aa5 13:55 13:00 Derm: Skin is dry, Skin is jaundiced, Skin temperature is warm aa5 aa5
--- NOTE | 2021-10-31 13:17 | EDPHYS ---
Physician Documentation [facility] Name: Dena Nance Age: 51 yrs Sex: Female : 1970 Arrival Date: 10/31/2021 Time: 12:27 Bed 20 Private MD: Anette Benjamin ED Physician Roberto Alejo HPI: 10/31 13:11 This 51 yrs old Female presents to ER via Ambulatory with complaints of rn Diarrhea, abdominal Pain, Abdominal Distention. 13:11 The patient presents to the emergency department with diarrhea, abdominal pain, of the rn abdomen diffusely, described as achy, crampy. Possible causes: unknown. The symptoms are aggravated by nothing. The symptoms are alleviated by nothing. Associated signs and symptoms: Pertinent positives: abdominal pain, diarrhea, Pertinent negatives: fever, GI bleeding. Severity of symptoms: At their worst the symptoms were mild in the emergency department the symptoms are unchanged. The patient has experienced similar episodes in the past, chronically. The patient has been recently seen by a physician:. Reports history of cirrhosis for the last year, told by GI to stage IV cirrhosis. Patient states has been having abdominal pain for at least 9 months, told it was nothing anybody could do about it. No GI bleed or fever. No gross changes recently. Patient is just tired of hurting. Has not seen a wrapper rewinder. No hematemesis. Reports mild diarrhea but she has had that for some time now. She has had 2 visits in the last month for similar complaints without focal findings. Patient states her doctors have not explained anything to her about her medical problem or what to expect. 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 - Hysterectomy jl7 Historical: - Allergies: 12:44 NKA; jl7 - Home Meds: 12:44 dicyclomine 20 mg Oral tab 4 times per day [Active]; gabapentin 300 mg Oral cap 3 times jl7 per day [Active]; glimepiride 4 mg Oral tab twice a day [Active]; lovastatin 40 mg Oral tab 1 tab once daily [Active]; metformin 1,000 mg Oral tab 2 times per day [Active]; omeprazole 40 mg Oral cpDR once daily [Active]; sertraline 50 mg Oral tab 1 tab once daily [Active]; Toujeo SoloStar subcutaneous [Active]; trazodone 50 mg Oral tab 2 times per day [Active]; - PMHx: 12:44 cirrhosis of liver; Colitis; Diabetes - NIDDM; Diverticulitis; fatty liver; gastritis; jl7 Pancreatitis; - PSHx: 12:44 Cholecystectomy; hysterectomy; jl7 - Immunization history:: Adult Immunizations up to date. - Social history:: Smoking status: Patient denies any tobacco usage or history of. - Family history:: not pertinent. - Hospitalizations: : No recent hospitalization is reported. ROS: 13:11 Constitutional: Negative for fever, chills, and weight loss, Eyes: Negative for injury, rn pain, redness, and discharge, Neck: Negative for injury, pain, and swelling, Cardiovascular: Negative for chest pain, palpitations, and edema, Respiratory: Negative for shortness of breath, cough, wheezing, and pleuritic chest pain, Abdomen/GI: Positive for abd cramps and diarrhea Back: Negative for injury and pain, : Negative for injury, bleeding, discharge, and swelling, MS/Extremity: Negative for injury and deformity, Skin: Negative for injury, rash, and discoloration, Neuro: Negative for headache, weakness, numbness, tingling, and seizure. Exam: 13:11 Constitutional: This is a well developed, well nourished patient who is awake, alert, rn and in no acute distress. Head/Face: Normocephalic, atraumatic. Eyes: Pupils equal round and reactive to light, extra-ocular motions intact. Lids and lashes normal. Conjunctiva and sclera are non-icteric and not injected. Cornea within normal limits. Periorbital areas with no swelling, redness, or edema. Cardiovascular: Regular rate and rhythm. No pulse deficits. Respiratory: No increased work of breathing, no retractions or nasal flaring. Abdomen/GI: Soft, nontender, positive fluid wave, no peritoneal signs mild distention Skin: Warm, dry with normal turgor. Normal color with no rashes, no lesions, and no evidence of cellulitis. MS/ Extremity: Pulses equal, no cyanosis. Neurovascular intact. Full, normal range of motion. Equal circumference. Neuro: Awake and alert, GCS 15, oriented to person, place, time, and situation. Cranial nerves II-XII grossly intact. Motor strength 5/5 in all extremities. Sensory grossly intact. Cerebellar exam normal. Normal gait. Vital Signs: 12:40 BP 117 / 63; Pulse 82; Resp 17; Temp 97.9; Pulse Ox 97% ; Weight 68.04 kg; Height 5 ft. jl7 4 in. (162.56 cm); Pain 10/10; 12:40 Body Mass Index 25.75 (68.04 kg, 162.56 cm) jl7 MDM: 12:36 Patient medically screened. rn 13:11 Differential diagnosis: Nonspecific abd pain, Cirrhosis, ascites. Data reviewed: vital rn signs, nurses notes, old medical records, and as a result, I will discharge patient. Counseling: I had a detailed discussion with the patient and/or guardian regarding: the historical points, exam findings, and any diagnostic results supporting the discharge/admit diagnosis, the need for outpatient follow up, to return to the emergency department if symptoms worsen or persist or if there are any questions or concerns that arise at home. Special discussion: I discussed with the patient/guardian in detail that at this point there is no indication for admission to the hospital. It is understood, however, that if the symptoms persist or worsen the patient needs to return immediately for re-evaluation. Based on the history and exam findings, there is no indication for further emergent testing or inpatient evaluation. I discussed with the patient/guardian the need to see the sports journalist for further evaluation of the symptoms. ED course: Long discussion with patient regarding cirrhosis, ascites and expectations of her disease. She is very frustrated that her doctors have not talked to her explained anything to her. We had a long conversation about cirrhosis and what to expect upcoming months. I highly recommend a liver specialist and after conversation patient agrees that there are no acute changes and no need for emergent evaluation. She is very thankful for the information and referral. Will discharge home without further work-up.. Administered Medications: No medications were administered Disposition Summary: 10/31/21 13:16 Discharge Ordered Location: Home rn Problem: chronic rn Symptoms: have improved rn Condition: Stable rn Diagnosis - Unspecified cirrhosis of liver rn - Other ascites rn - Abdominal pain, unspecified rn Followup: rn - With: Private Physician - When: As needed - Reason: Recheck today's complaints, Re-evaluation by your physician Discharge Instructions: - Discharge Summary Sheet rn - Abdominal Pain, Adult rn - Ascites rn - Cirrhosis rn Forms: - Medication Reconciliation Form rn - Thank You Letter rn - Antibiotic airborne operations superintendent - Prescription Opioid Use rn Signatures: Roberto Alejo MD MD rn Leal, Jahala, RN RN jl7
[2021-10-31 13:57] VITALS: BP 117/63; TEMP 97.9; O2SAT 97
== END 2021-10-31 13:50 | disposition home or self-care (01) ==
LOC: ER 12:23
DX: R18.8 Other ascites (principal); K74.60 Unspecified cirrhosis of liver; E11.9 Type 2 diabetes mellitus without complications; Z79.4 Long term (current) use of insulin
CPT/HCPCS: 99281

== ENCOUNTER 2022-01-22 13:43 | Observation (INO) | payer OTHER ==
--- OUTSIDE RECORDS SUMMARY | 2022-01-22 13:46 | XMS REPORT | Continuity of Care Document ---
:1970 Author Organization [facility] t Address [address] [place] [address] Care Team Providers Name Role Phone EUGENIA HANEY Primary Care Physician Unavailable Theresa Haney Attending Clinician Unavailable Radha ARANA Attending Clinician Unavailable JAVY Attending Clinician Unavailable [...] R10.10=UPP 1-10 16:11:00 l ER DX: 00:00: [place] ABDOMINAL R10.10=UPP 00 PAIN, ER UNSPECI ABDOMINAL PAIN, UNSPECI Active 05/09/2021 [facility] DX: Diagnosis Active 2019-062020-04-11 Mem oria R10.10, 0-07 09:14:00 l R14.0 DX: 00:00: [place] R10.10, 00 R14.0 Active 04/05/2020 [facility] Allergies, Adverse Reactions, Alerts Allergy Allergy Status Severity Reaction(s) Onset Inactive Treating Comm ents Source Name Type Date Date Clinician NO KNOWN Allergy Active [facility] S Social History Social Habit Start Date Stop Date Quantity Comments Source Tobacco use and 2017-05-09 2017-05-[address] [facility] Sex Assigned At [address] [facility] Smoking Status Start Date Stop Date Source Never smoker [facility] Medications Ordered Filled Start Stop Current Ordering Indication Dosage Frequency Signature Comments Components Source Medication Medication Date Date Medication? Clinician (SIG) Name Name Sertraline Sertraline 2018-06 Yes Na Haney 2 tablets Common HCl HCl 2-24 [facility] Yes 10[facility] QD Take [address] [facility]10 [facility] ([facility] 10:01: daily. Medi michele 10 mg 13 Center tablet sertraline 2016-06 Yes 50mg QD Take [address] (ZOLOFT) 50 1-10 by mouth Luke [facility] MG tablet 10:01: daily. Medica l [address] [place] [address] empaglifloz 2016-06 Yes 10mg QD Take [address] [facility] 1-10 [facility] ([facility]) 10:01: daily. Medi michele 10 mg 13 Center tablet sertraline 2016-06 Yes 50mg QD Take [address] (ZOLOFT) 50 1-10 by mouth Luke s MG tablet 10:01: daily. Medica l [address] [place] [address] glimepiride 2016-06 Yes 4mg Take [address] (AMARYL) 4 1-10 by mouth 2 Carmelina es MG tablet 10:01: (two) Medical 12 times Center daily before meals. metFORMIN 2016-06 Yes 500mg Take [address] [facility] (GLUCOPHAGE 1-10 mg by [facility] ) 500 MG 10:01: mouth 2 Medica l tablet 12 (two) Center times daily with breakfast and dinner. glimepiride 2016-06 Yes 4mg Take [address] (AMARYL) 4 1-10 by mouth 2 Carmelina es MG tablet 10:01: (two) Medical 12 times Center daily before meals. metFORMIN 2016-06 Yes 500mg Take [address] (GLUCOPHAGE 1-10 mg by [facility] ) 500 MG 10:01: mouth 2 Medica l tablet 12 (two) Center times daily with breakfast and dinner. Metformin Metformin Yes Na Hnaey 2 tablet Common HCl HCl with a [facility] meal [facility] Immunizations Ordered Immunization Filled Immunization Date Status Commen ts Source Name Name Evette Alas - 2019-03-30 Completed Common Spiri t multidose vial multidose vial 00:00:00 - [facility] Procedures This patient has no known procedures. Encounters Start End Encounter Admission Attending Care Care Encounter Source Date/Time Date/Time Type Type Clinicians Facility Department ID 2022-01-15 Outpatient Haney, Na STLMLC STLMLC [id number] 2 Common 13:51:00 [facility] 2021-11-19 Outpatient Haney, Na STLMLC STLMLC [id number] 2 Common 11:21:07 [facility] 2021-11-02 Outpatient Haney, Na STLMLC STLMLC [id number] 2 Common 09:23:01 [facility] 2021-10-08 Outpatient Haney, Na STLMLC STLMLC [id number] 2 Common 11:37:01 [facility] 2021-09-24 Outpatient Haney, Na STLMLC STLMLC [id number] 2 Common 11:59:00 [facility] 2021-09-06 Outpatient Haney, Na STLMLC STLMLC [id number] 2 Common 08:34:01 [facility] 2021-08-21 Outpatient Haney, Na STLMLC STLMLC [id number] 2 Common 11:41:00 [facility] 2021-07-25 Outpatient Haney, Na STLMLC STLMLC [id number] 2 Common 14:33:29 [facility] 2021-07-25 Outpatient Haney, Na STLMLC STLMLC [id number] 2 Common 14:24:24 [facility] 2021-07-25 Outpatient Haney, Na STLMLC STLMLC [id number] 2 Common 13:57:58 [id number] [facility] 2021-07-25 Outpatient Haney, Na STLMLC STLMLC [id number] 2 Common 13:56:51 [id number] [facility] 2021-07-25 Outpatient Haney, Na STLMLC STLMLC [id number] 2 Common 13:47:46 [id number] [facility] 2021-07-25 Outpatient Haney, Na STLMLC STLMLC [id number] 2 Common 12:48:36 [id number] [facility] 2021-07-25 Outpatient Haney, Na STLMLC STLMLC [id number] 2 Common 12:33:46 [id number] [facility] 2021-07-25 Outpatient Haney, Na STLMLC STLMLC [id number] 2 Common 12:31:18 [id number] [facility] 2021-07-25 Outpatient Haney, Na STLMLC STLMLC [id number] 2 Common 12:26:58 [id number] [facility] 2021-07-25 Outpatient Haney, Na STLMLC STLMLC [id number] 2 Common 12:09:32 [id number] [facility] 2021-07-25 Outpatient Haney, Na STLMLC STLMLC [id number] 2 Common 12:02:06 [id number] [facility] 2021-07-25 Outpatient Haney, Na STLMLC STLMLC [id number] 2 Common 12:01:44 [id number] [facility] 2021-07-25 Outpatient Haney, Na STLMLC STLMLC [id number] 2 Common 11:58:40 [id number] [facility] 2021-07-25 Outpatient Haney, Na STLMLC STLMLC [id number] 2 Common 11:57:47 [id number] [facility] 2021-07-25 Outpatient Haney, Na STLMLC STLMLC [id number] 2 Common 11:57:12 [id number] [facility] 2021-07-25 Outpatient Haney, Na STLMLC STLMLC [id number] 2 Common 11:56:42 [id number] [facility] 2021-07-25 Outpatient Haney, Na STLMLC STLMLC [id number] 2 Common 11:55:04 [id number] [facility] 2021-07-25 Outpatient Haney, Na STLMLC STLMLC [id number] 2 Common 11:32:26 [id number] [facility] 2021-07-25 Outpatient Haney, Na STLMLC STLMLC [id number] 2 Common 11:32:11 [id number] [facility] 2021-07-25 Outpatient Haney, Na STLMLC STLMLC [id number] 2 Common 11:30:56 [id number] [facility] 2021-07-25 Outpatient Haney, Na STLMLC STLMLC [id number] 2 Common 11:24:01 [id number] [facility] 2021-07-25 Outpatient Haney, Na STLMLC STLMLC [id number] 2 Common 11:16:56 [id number] [facility] 2021-07-25 Outpatient Haney, Na STLMLC STLMLC [id number] 2 Common 11:10:23 [id number] [facility] 2021-07-25 Outpatient Haney, Na STLMLC STLMLC [id number] 2 Common 11:09:28 [id number] [facility] 2021-07-25 Outpatient Haney, Na STLMLC STLMLC [id number] 2 Common 10:58:23 [id number] [facility] 2021-07-25 Outpatient Haney, Na STLMLC STLMLC [id number] 2 Common 10:57:38 [id number] [facility] 2022-01-03 2022-01-03 ambulatory STLMLC STLMLC [id number] Common 00:00:00 00:00:00 [facility] 2021-12-10 2021-12-10 ambulatory STLMLC STLMLC [id number] Common 00:00:00 00:00:00 [facility] 2021-12-06 2021-12-06 ambulatory STLMLC STLMLC [id number] Common 00:00:00 00:00:00 [facility] 2021-11-21 2021-11-21 ambulatory STLMLC STLMLC [id number] Common 00:00:00 00:00:00 [facility] 2021-11-19 2021-11-19 ambulatory STLMLC STLMLC [id number] Common 00:00:00 00:00:00 [facility] 2021-11-19 2021-11-19 ambulatory STLMLC STLMLC [id number] Common 00:00:00 00:00:00 [facility] 2021-11-19 2021-11-19 ambulatory STLMLC STLMLC [id number] Common 00:00:00 00:00:00 [facility] 2021-10-24 2021-10-24 Outpatient ANISHA_MILDRED [facility]AR [facility] [id number] [place] 04:35:00 04:[place] [id number] [facility] 2021-10-17 2021-10-17 ambulatory STLMLC STLMLC [id number] Common 00:00:00 00:00:00 [facility] 2021-10-09 2021-10-09 ambulatory STLMLC STLMLC [id number] Common 00:00:00 00:00:00 [facility] 2021-10-01 2021-10-01 ambulatory STLMLC STLMLC [id number] Common 00:00:00 00:00:00 [facility] 2021-09-27 2021-09-27 Outpatient ROS, MHSE MHSE [id number] 07:32:00 23:59:[address] [facility] 2021-09-10 2021-09-10 ambulatory STLMLC STLMLC [id number] Common 00:00:00 00:00:00 [facility] 2021-09-04 2021-09-04 ambulatory STLMLC STLMLC [id number] Common 00:00:00 00:00:00 [facility] 2021-08-21 2021-08-21 ambulatory STLMLC STLMLC [id number] Common 00:00:00 00:00:00 [facility] 2021-08-21 2021-08-21 ambulatory STLMLC STLMLC [id number] Common 00:00:00 00:00:00 [facility] 2021-08-20 2021-08-20 ambulatory STLMLC STLMLC [id number] Common 00:00:00 00:00:00 [facility] 2021-05-21 2021-05-21 ambulatory STLMLC STLMLC [id number] Common 00:00:00 00:00:00 [facility] 2021-05-21 2021-05-21 ambulatory STLMLC STLMLC [id number] Common 00:00:00 00:00:00 [facility] 2021-05-16 2021-05-17 Outpatient [facility] [id number] Memoria 18:45:00 05:59:[address] 2021-05-16 2021-05-16 Outpatient GOGIA, MHSE MHSE [id number] 12:45:00 23:59:00 [facility] 2021-04-05 2021-04-05 Outpatient STLMLC STLMLC [id number] Common 00:00:00 00:00:00 [facility] 2021-03-08 2021-03-08 Outpatient STLMLC STLMLC [id number] Common 00:00:00 00:00:00 [facility] 2021-01-29 2021-01-29 Outpatient STLMLC STLMLC [id number] Common 00:00:00 00:00:00 [facility] 2021-01-17 2021-01-17 Outpatient STLMLC STLMLC [id number] Common 00:00:00 00:00:00 [facility] 2021-01-03 2021-01-03 Outpatient STLMLC STLMLC [id number] Common 00:00:00 00:00:00 [facility] 2021-01-02 2021-01-02 Outpatient STLMLC STLMLC [id number] Common 00:00:00 00:00:00 [facility] 2020-12-04 2020-12-04 Outpatient STLMLC STLMLC [id number] Common 00:00:00 00:00:00 [facility] 2020-11-16 2020-11-16 Outpatient STLMLC STLMLC [id number] Common 00:00:00 00:00:00 [facility] 2020-11-06 2020-11-06 Outpatient STLMLC STLMLC [id number] Common 00:00:00 00:00:00 [facility] 2020-10-03 2020-10-03 Outpatient STLMLC STLMLC [id number] Common 00:00:00 00:00:00 [facility] 2020-09-28 2020-09-28 Outpatient STLMLC STLMLC [id number] Common 00:00:00 00:00:00 [facility] 2020-08-24 2020-08-24 Outpatient STLMLC STLMLC [id number] Common 00:00:00 00:00:00 [facility] 2020-08-17 2020-08-17 Outpatient STLMLC STLMLC [id number] Common 00:00:00 00:00:00 [facility] 2020-08-11 2020-08-11 Outpatient STLMLC STLMLC [id number] Common 00:00:00 00:00:00 [facility] 2020-08-03 2020-08-03 Outpatient STLMLC STLMLC [id number] Common 00:00:00 00:00:00 [facility] 2020-07-31 2020-07-31 Outpatient STLMLC STLMLC [id number] Common 00:00:00 00:00:00 [facility] 2020-06-26 2020-06-26 Outpatient STLMLC STLMLC [id number] Common 00:00:00 00:00:00 [facility] 2020-06-20 2020-06-20 Outpatient FERGUSON_JO MEHOP MEHOP [id number] [place] 10:21:00 10:21:[place] [id number] [facility] 2020-06-15 2020-06-15 Outpatient STLMLC STLMLC [id number] Common 00:00:00 00:00:00 [facility] 2020-06-14 2020-06-14 Outpatient STLMLC STLMLC [id number] Common 00:00:00 00:00:00 [facility] 2020-06-12 2020-06-12 Outpatient STLMLC STLMLC [id number] Common 00:00:00 00:00:00 [facility] 2020-06-07 2020-06-07 Outpatient FERGUSON_JO MEHOP MEHOP [id number] [place] 03:50:00 03:50:00 [place] [id number] [facility] 2020-06-07 2020-06-07 Outpatient FERGUSON_JO MEHOP MEHOP [id number] [place] 03:50:00 03:50:00 [place] [id number] [facility] 2020-06-01 2020-06-01 Outpatient STLMLC STLMLC [id number] Common 00:00:00 00:00:00 [facility] 2020-05-29 2020-05-29 Outpatient STLMLC STLMLC [id number] Common 00:00:00 00:00:00 [facility] 2020-05-08 2020-05-08 Outpatient STLMLC STLMLC [id number] Common 00:00:00 00:00:00 [facility] 2020-05-04 2020-05-04 Outpatient STLMLC STLMLC [id number] Common 00:00:00 00:00:00 [facility] 2020-04-24 2020-04-24 Outpatient STLMLC STLMLC [id number] Common 00:00:00 00:00:00 [facility] 2020-04-20 2020-04-20 Outpatient STLMLC STLMLC [id number] Common 00:00:00 00:00:00 [facility] 2020-04-19 2020-04-19 Outpatient STLMLC STLMLC [id number] Common 00:00:00 00:00:00 [facility] 2020-04-18 2020-04-18 Outpatient STLMLC STLMLC [id number] Common 00:00:00 00:00:00 [facility] 2020-04-17 2020-04-17 Outpatient STLMLC STLMLC [id number] Common 00:00:00 00:00:00 [facility] 2020-04-11 2020-04-12 Outpatient [facility] [id number] Memoria 14:07:00 04:59:00 [place] [address] l [facility] 2020-04-11 2020-04-11 Outpatient GOGIA, MHBL MHBL [id number] MHBL 09:07:00 23:59:00 [facility] 2020-01-26 2020-01-26 [facility] [id number] Common 14:36:00 14:36:[address] [facility] 2020-01-24 2020-01-24 [facility] [id number] Common 13:45:00 13:45:[address] [facility] 2020-01-19 2020-01-19 [facility] [id number] Common 08:40:00 08:40:[address] [facility] 2020-01-18 2020-01-18 [facility] [id number] Common 15:20:00 15:20:[address] [facility] 2020 2020 [facility] [id number] Common 14:44:00 14:44:[address] [facility] 2020 2020 [facility] [id number] Common 09:39:00 09:39:[address] [facility] 2019-12-24 2019-12-24 [facility] [id number] Common 17:41:00 17:41:[address] [facility] 2019-12-21 2019-12-21 [facility] [id number] Common 09:20:00 09:20:[address] [facility] 2019-10-27 2019-10-27 [facility] [id number] Common 14:08:00 14:08:[address] [facility] 2019-10-13 2019-10-13 [facility] [id number] Common 11:40:00 11:40:[address] [facility] 2019-10-04 2019-10-04 [facility] [id number] Common 08:00:00 08:00:[address] [facility] 2019-08-26 2019-08-26 [facility] [id number] Common 09:30:00 09:30:[address] [facility] 2019-08-25 2019-08-25 [facility] [id number] Common 11:51:00 11:51:[address] [facility] 2019-08-24 2019-08-24 [facility] [id number] Common 14:40:00 14:40:[address] [facility] 2019-08-17 2019-08-17 [facility] [id number] Common 11:59:00 11:59:[address] [facility] 2019-07-05 2019-07-05 [facility] [id number] Common 16:00:00 16:00:[address] [facility] 2019-06-22 2019-06-22 [facility] [id number] Common 11:53:00 11:53:[address] [facility] 2019-06-22 2019-06-22 [facility] [id number] Common 10:22:00 10:22:[address] [facility] 2019-05-24 2019-05-24 [facility] [id number] Common 10:00:00 10:00:[address] [facility] 2019-05-05 2019-05-05 [facility] [id number] Common 15:44:00 15:44:[address] [facility] 2019-05-04 2019-05-04 [facility] [id number] Common 15:20:00 15:20:[address] [facility] 2019-04-27 2019-04-27 [facility] [id number] Common 17:18:00 17:18:[address] [facility] 2019-04-26 2019-04-26 [facility] [id number] Common 17:24:00 17:24:[address] [facility] 2019-04-20 2019-04-20 [facility] [id number] Common 08:27:00 08:27:[address] [facility] 2019-04-12 2019-04-12 [facility] [id number] Common 11:00:00 11:00:[address] [facility] 2019-03-30 2019-03-30 [facility] [id number] Common 14:00:00 14:00:[address] [facility] Results Test Description Test Time Test Comments Results Result Comments Source HEPATITIS A ANTIBODY, IGG 2022-01-10 15:13:22 Test Item Value Reference Range Interpretation Comme nts HEPATITIS A IGG ANTIBODY (RUDI) (test code = 2797) Reactive N onreactive Patient Support Partner ID - BSBASIC METABOLIC [id number] 14:51:44 Test Item Value Reference Range Interpretation Comments SODIUM (BEAKER) 137 meq/L 136-145 (test code = 381) POTASSIUM (BEAKER) 4.0 meq/L 3.5-5.1 (test code = 379) CHLORIDE (BEAKER) 97 meq/L 98-107 L (test code = 382) CO2 (BEAKER) (test 33 meq/L 22-29 H code = 355) BLOOD UREA NITROGEN 8 mg/dL 7-21 (BEAKER) (test code = 354) CREATININE (BEAKER) 0.75 mg/dL 0.57-1.25 (test code = 358) GLUCOSE RANDOM 164 mg/dL 70-105 H (BEAKER) (test code = 652) CALCIUM (BEAKER) 9.6 mg/dL 8.4-10.2 (test code = 697) EGFR (BEAKER) (test 81 mL/min/1.73 ESTIMA ROSARIO GFR IS code = 1092) sq m NOT ACCURATE CREATININE CLEARANCE IN PREDICTING GLOMERULAR FILTRATION RATE . ESTIMATED GFR I S NOT APPLICABLE FOR DIALYSIS PATIEN TS. Purchasing Manager ID - BSHEPATIC FUNCTION [id number] 14:51:44 Test Item Value Reference Range Interpretation Comments TOTAL PROTEIN (BEAKER) (test code = 7.6 gm/dL 6.0-8.3 770) ALBUMIN (BEAKER) (test code = 1145) 4.1 g/dL 3.5-5.0 BILIRUBIN TOTAL (BEAKER) (test code 0.3 mg/dL 0.2-1.2 = 377) BILIRUBIN DIRECT (BEAKER) (test 0.1 mg/dL 0.1-0.5 code = 706) ALKALINE PHOSPHATASE (BEAKER) (test 150 U/L 40-150 code = 346) AST (SGOT) (BEAKER) (test code = 30 U/L 5-34 353) ALT (SGPT) (BEAKER) (test code = 29 U/L 6-55 347) Purchasing Manager ID - BSLACTIC ACID, [id number] 14:42:21 Test Item Value Reference Range Interpretation Comments LACTATE BLOOD VENOUS 1.76 mmol/L 0.50-2.20 Specime n slightly (2) (BEAKER) (test hemolyzed code = 2872) Purchasing Manager ID - BSPROTHROMBIN TIME/[id number] 14:38:41 Test Item Value Reference Range Interpretation Comments PROTIME (BEAKER) 13.5 seconds 11.9-14.2 (test code = 759) INR (BEAKER) (test 1.05 See_Comment [Automat ed message] code = 370) The system Adiana generated this result transmitted ref erence range: <=5.90. The reference range was not used to int erpret this result as normal/abnormal . RECOMMENDED COUMADIN/WARFARIN INR THERAPY RANGESSTANDARD DOSE: 2.0 - 3.0 Includes: PROPHYLAXIS forvenous thrombosis, systemic embolization; TREATMENT for venous thrombosis and/or pulmonary embolus.HIGH RISK: Target INR is 2.5-3.5 for patients with mechanical heart valves.CBC W/PLT COUNT & AUTO DIFFERENTIAL 2022-01-10 14:32:38 Test Item Value Reference Range Interpretation Comments WHITE BLOOD CELL COUNT (BEAKER) 8.9 K/ L 3.5-10.5 (test code = 775) RED BLOOD CELL COUNT (BEAKER) 4.76 M/ L 3.93-5.22 (test code = 761) HEMOGLOBIN (BEAKER) (test code = 13.6 GM/DL 11.2-15.7 410) HEMATOCRIT (BEAKER) (test code = 42.0 % 34.1-44.9 411) MEAN CORPUSCULAR VOLUME (BEAKER) 88.2 fL 79.4-94.8 (test code = 753) MEAN CORPUSCULAR HEMOGLOBIN 28.6 pg 25.6-32.2 (BEAKER) (test code = 751) MEAN CORPUSCULAR HEMOGLOBIN CONC 32.4 GM/DL 32.2-35.5 (BEAKER) (test code = 752) RED CELL DISTRIBUTION WIDTH 14.6 % 11.7-14.4 H (BEAKER) (test code = 412) PLATELET COUNT (BEAKER) (test 133 K/CU MM 150-450 L code = 756) MEAN PLATELET VOLUME (BEAKER) 10.8 fL 9.4-12.3 (test code = 754) NUCLEATED RED BLOOD CELLS 0 /100 WBC 0-0 (BEAKER) (test code = 413) NEUTROPHILS RELATIVE PERCENT 72 % (BEAKER) (test code = 429) LYMPHOCYTES RELATIVE PERCENT 20 % (BEAKER) (test code = 430) MONOCYTES RELATIVE PERCENT 5 % (BEAKER) (test code = 431) EOSINOPHILS RELATIVE PERCENT 2 % (BEAKER) (test code = 432) BASOPHILS RELATIVE PERCENT 1 % (BEAKER) (test code = 437) NEUTROPHILS ABSOLUTE COUNT 6.47 K/ L 1.56-6.13 H (BEAKER) (test code = 670) LYMPHOCYTES ABSOLUTE COUNT 1.74 K/ L 1.18-3.74 (BEAKER) (test code = 414) MONOCYTES ABSOLUTE COUNT (BEAKER) 0.46 K/ L 0.24-0.36 H (test code = 415) EOSINOPHILS ABSOLUTE COUNT 0.13 K/ L 0.04-0.36 (BEAKER) (test code = 416) BASOPHILS ABSOLUTE COUNT (BEAKER) 0.05 K/ L 0.01-0.08 (test code = 417) IMMATURE GRANULOCYTES-RELATIVE 1 % 0-1 PERCENT (BEAKER) (test code = 2801) MR, ABDOMEN, [id number] 15:44:00DARINEL HANEY MD Please do per liver protocol Unlisted Reason for Exam - Click Yes and Enter Reason Below->Yes Unlisted Reason for Exam->cirrhosis [facility] : 1970 Sex: FFINAL REPORT MRI of the abdomen with and without contrast Clinical History: Unlisted Reason for Examcirrhosis Technique: Multiplanar and multisequence MR images of the abdomen are obtained before and after intravenous contrast administration. Contrast is administeredto evaluate neoplasm and vasculature. Comparison: None Discussion: Liver is moderate to severely fatty. It has a mildly lobular contour, compatible with cirrhosis. No biliary ductal dilatation. Gallbladder has been removed. There are a few arterially enhancing observations, measuring approximately 8mm in segment 8 (arterial phase image 84), 3 mm in segment 7 (image 78) and a 4 mm in segment 5 (image29), demonstrating no washout, or corresponding T2 signal alteration. No suspicious liver mass is identified. Hepatic vasculature is patent. Main portal vein measures 11 mm in diameter. Spleen is mildly enlarged and measures 13.3 cm sagittally. The pancreas, and adrenal glands are normal. Kidneys demonstrate no mass, or hydronephrosis. There is no ascites, or adenopathy. Visualized bowel is unremarkable. Normal marrow signal. Impression: Cirrhosis and mild splenomegaly. Moderate to severe hepatic steatosis. There are three subcentimeter arterially enhancing observations in the right lobe, favor perfusion anomalies (LI RADS 3), amenable to follow-up. No suspicious mass lesion is identified. Status post cholecystectomy. Signed: Modesta Chahal [facility] Verified Date/Time: 01/05/2022 15:44:30 ANTI-NUCLEAR ANTIBODY (SAMIA)2021-12-18 11:44:38 Test Item Value Reference Range Interpretation Comments ANTI-NUCLEAR ANTIBODY (SAMIA) (BEAKER) Negative Negative (test code = 418) Test performed by IFA method.Test performed by IFA method.[id number] 17:57:11 Test Item Value Reference Range Interpretation Comments FERRITIN (BEAKER) (test code = 45.90 ng/mL 5.00-275.00 361) Purchasing Manager ID - BSHEPATITIS B SURFACE [id number] 17:21:28 Test Item Value Reference Range Interpretation Comments HEPATITIS B SURFACE ANTIBODY < mIU/mL <8.0 (BEAKER) (test code = 647) Purchasing Manager ID - BSHEPATITIS B SURFACE [id number] 17:09:40 Test Item Value Reference Range Interpretation Comments HEPATITIS B SURFACE ANTIGEN (2) Nonreactive Nonreactive (BEAKER) (test code = 2585) Specimen is considered negative for HBsAg.ALPHA FETOPROTEIN (AFP), TUMOR MARKER 2021-12-17 17:09:40 Test Item Value Reference Range Interpretation Comments ALPHA-FETOPROTEIN (BEAKER) (test 2.3 ng/mL <10.0 code = 1094) Purchasing Manager ID - BSHEPATITIS B CORE ANTIBODY, [id number] 17:09:40 Test Item Value Reference Range Interpretation Comments HEPATITIS B CORE TOTAL ANTIBODY Nonreactive Nonreactive (BEAKER) (test code = 497) Purchasing Manager ID - BSHEPATITIS C [id number] 17:09:40 Test Item Value Reference Range Interpretation Comments HEPATITIS C ANTIBODY (BEAKER) Nonreactive Nonreactive (test code = 367) Purchasing Manager ID - BSBILIRUBIN, [id number] 16:49:19 Test Item Value Reference Range Interpretation Comments BILIRUBIN DIRECT (BEAKER) (test 0.2 mg/dL 0.1-0.5 code = 706) Purchasing Manager ID - BSCOMPREHENSIVE METABOLIC [id number] 16:49:14 Test Item Value Reference Range Interpretation Comments TOTAL PROTEIN 7.7 gm/dL 6.0-8.3 (BEAKER) (test code = 770) ALBUMIN (BEAKER) 4.1 g/dL 3.5-5.0 (test code = 1145) ALKALINE PHOSPHATASE 152 U/L 40-150 H (BEAKER) (test code = 346) BILIRUBIN TOTAL 0.6 mg/dL 0.2-1.2 (BEAKER) (test code = 377) SODIUM (BEAKER) (test 141 meq/L 136-145 code = 381) POTASSIUM (BEAKER) 3.7 meq/L 3.5-5.1 (test code = 379) CHLORIDE (BEAKER) 98 meq/L 98-107 (test code = 382) CO2 (BEAKER) (test 37 meq/L 22-29 H code = 355) BLOOD UREA NITROGEN 14 mg/dL 7-21 (BEAKER) (test code = 354) CREATININE (BEAKER) 0.71 mg/dL 0.57-1.25 (test code = 358) GLUCOSE RANDOM 129 mg/dL 70-105 H (BEAKER) (test code = 652) CALCIUM (BEAKER) 9.7 mg/dL 8.4-10.2 (test code = 697) AST (SGOT) (BEAKER) 37 U/L 5-34 H (test code = 353) ALT (SGPT) (BEAKER) 36 U/L 6-55 (test code = 347) EGFR (BEAKER) (test 86 mL/min/1.73 ESTIMA ROSARIO GFR IS code = 1092) sq m NOT ACCURATE CREATININE CLEARANCE IN PREDICTING GLOMERULAR FILTRATION RATE . ESTIMATED GFR I S NOT APPLICABLE FOR DIALYSIS PATIEN TS. Purchasing Manager ID - BSIRON, TIBC, % SAT. (WITHOUT FERRITIN)2021-12-17 16:47:34 Test Item Value Reference Range Interpretation Comments IRON (BEAKER) (test code = 547) 58.0 ug/dL 40.0-160.0 TOTAL IRON BINDING CAPACITY 311 ug/dL 250-450 (BEAKER) (test code = 769) IRON % SATURATION (2) (BEAKER) 19 % 20-55 L (test code = 2590) Purchasing Manager ID - [id number] 16:47:17 Test Item Value Reference Range Interpretation Comments ALPHA-1 ANTITRYPSIN (BEAKER) 184.50 mg/dL 90.00-200.00 (test code = 502) Purchasing Manager ID - BSLACTIC ACID, [id number] 16:39:11 Test Item Value Reference Range Interpretation Comments LACTATE BLOOD VENOUS 1.29 mmol/L 0.50-2.20 Specime n slightly (2) (BEAKER) (test hemolyzed code = 0526) Purchasing Manager ID - BSPROTHROMBIN [id number] 16:36:56 Test Item Value Reference Range Interpretation Comments PROTIME (BEAKER) 13.9 seconds 11.9-14.2 (test code = 759) INR (BEAKER) (test 1.09 See_Comment [Automat ed message] code = 370) The system Adiana generated this result transmitted ref erence range: <=5.90. The reference range was not used to int erpret this result as normal/abnormal . RECOMMENDED COUMADIN/WARFARIN INR THERAPY RANGESSTANDARD DOSE: 2.0 - 3.0 Includes: PROPHYLAXIS forvenous thrombosis, systemic embolization; TREATMENT for venous thrombosis and/or pulmonary embolus.HIGH RISK: Target INR is 2.5-3.5 for patients with mechanical heart valves.CBC W/PLT COUNT & AUTO DIFFERENTIAL 2021-12-17 16:33:51 Test Item Value Reference Range Interpretation Comments WHITE BLOOD CELL COUNT (BEAKER) 9.8 K/ L 3.5-10.5 (test code = 775) RED BLOOD CELL COUNT (BEAKER) 4.79 M/ L 3.93-5.22 (test code = 761) HEMOGLOBIN (BEAKER) (test code = 13.6 GM/DL 11.2-15.7 410) HEMATOCRIT (BEAKER) (test code = 42.4 % 34.1-44.9 411) MEAN CORPUSCULAR VOLUME (BEAKER) 88.5 fL 79.4-94.8 (test code = 753) MEAN CORPUSCULAR HEMOGLOBIN 28.4 pg 25.6-32.2 (BEAKER) (test code = 751) MEAN CORPUSCULAR HEMOGLOBIN CONC 32.1 GM/DL 32.2-35.5 L (BEAKER) (test code = 752) RED CELL DISTRIBUTION WIDTH 14.9 % 11.7-14.4 H (BEAKER) (test code = 412) PLATELET COUNT (BEAKER) (test code 51 K/CU MM 150-450 L = 756) MEAN PLATELET VOLUME (BEAKER) 11.7 fL 9.4-12.3 (test code = 754) NUCLEATED RED BLOOD CELLS (BEAKER) 0 /100 WBC 0-0 (test code = 413) NEUTROPHILS RELATIVE PERCENT 69 % (BEAKER) (test code = 429) LYMPHOCYTES RELATIVE PERCENT 21 % (BEAKER) (test code = 430) MONOCYTES RELATIVE PERCENT 6 % (BEAKER) (test code = 431) EOSINOPHILS RELATIVE PERCENT 3 % (BEAKER) (test code = 432) BASOPHILS RELATIVE PERCENT 1 % (BEAKER) (test code = 437) NEUTROPHILS ABSOLUTE COUNT 6.72 K/ L 1.56-6.13 H (BEAKER) (test code = 670) LYMPHOCYTES ABSOLUTE COUNT 2.05 K/ L 1.18-3.74 (BEAKER) (test code = 414) MONOCYTES ABSOLUTE COUNT (BEAKER) 0.59 K/ L 0.24-0.36 H (test code = 415) EOSINOPHILS ABSOLUTE COUNT 0.29 K/ L 0.04-0.36 (BEAKER) (test code = 416) BASOPHILS ABSOLUTE COUNT (BEAKER) 0.05 K/ L 0.01-0.08 (test code = 417) IMMATURE GRANULOCYTES-RELATIVE 1 % 0-1 PERCENT (BEAKER) (test code = 2801) CHEM [id number] 20:32:00 Test Item Value Reference Range Interpretation Comments POC Creatinine (test code = POC 0.6 0.5-1.4 Creatinine) Mic LebronCHEM [id number] 20:32:00 Test Item Value Reference Range Interpretation Comments eGFR (test code = eGFR) 105 Mic Marie, STEREOTACTIC BIOPSY, BREAST, [id number] 15:59:00Reason for Exam:->calcificationAddendum BeginsUNIVERSITY OF [facility]#: [id number]: 05/14/2017 Lizzette Velásquez M.D. 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 Addendum [facility]#: [id number] - MM, STEREOTACTIC BIOPSY, BREAST, LEFTSTEREOTACTIC GUIDED [...] correct location, five specimens were obtained using [employer] device. A clip was inserted into the [...] the calcifications. Lizzette Velásquez M.D. pth/penrad:05/09/2017 11:07:57 Developer Programmer Analyst: Felicia BELLA(R)(M), [facility] [id number] TISSUE EXAM 2017-05-12 12:48:00Surgical Pathology Report Case: [id number] Authorizing Provider: Lizzette Velásquez MD Collected: 05/09/2017 1110 Ordering Location: [facility] Received: 05/09/2017 1312 Pathologist: Jackie Maradiaga MD Specimen: Breast, Left, LEFT MIDDLE 12 BREAST CALCIFICATION BREAST, LEFT, MIDDLE 12 O'CLOCK, CALCIFICATIONS, STEREOTACTIC CORE NEEDLE BIOPSY: - HYALINIZED FIBROADENOMA - COLUMNAR CELL HYPERPLASIA - COLUMNAR CELL CHANGES - MICROCALCIFICATIONS, COARSE, ASSOCIATED WITH FIBROADENOMA Signing Pathologist Direct Phone Line: [phone] signed by Jackie Maradiaga MD on 05/12/2017 at 12:48 PMIn the sections examined, no atypical hyperplasia or carcinoma is identified.[id number] lesion Left middle 12 o'clock breast calcifications The specimen is received in a formalin-filled container labeled with the patient's information and labeled "leftmiddle 12 o'clock breast calcifications" and consists of multiple yellow-white breast core biopsies ranging in length from 0.6 to 2.5 cm.Ink code: Black.The specimen is submitted entirely in A1 and A2.CG/ewPerformed.[facility], Department of Pathology, [address] [place] [address], [place] [address], TD, DIGITAL, UNILATERAL, CONFER MARTA, MAMMO, LEFT INCLUDING [id number] 11:07:00Left breast calcificationsMRN#: [id number] - MM, DIGITAL, UNILATERAL, CONFER MARTA, MAMMO, [...] pathology results. Lizzette Velásquez M.D. pth/:05/09/2017 11:07:15 Developer Programmer Analyst: Felicia BELLA(R)(M), [facility] Mammogram BI-RADS: Post-procedure mammogram for marker placement [id number] MM, MAMMO, SPECIMEN, RADIOGRAPH, LEFT 2017-05-09 11:06:00Reason for exam:->Left breast calcificationsMRN#: [id number] - MM, MAMMO, SPECIMEN, RADIOGRAPH, LEFTSPECIMEN LEFT BREAST: 05/09/2017Five stereotactic guided biopsy specimens were imaged for the area of calcifications located in the left breast at 12 o'clock middle depth. IMPRESSION: SPECIMENThe imaged specimens includes the calcifications. Lizzette Velásquez M.D. pth/:05/09/2017 11:06:40 Developer Programmer Analyst: Felicia BELLA(R)(M), [facility] [id number]
[2022-01-22] MEDS ORDERED: NA CHLORIDE 0.9% 1,000 ML ONE ×2 (14:22→23:14)
[2022-01-22 14:31] LABS: Absolute Lymphocytes (CBC) 1.3 K/uL (0.7-4.9); Hematocrit 37.5 % (36.0-45.0); Lymphocytes % 11.7 % (15.3-44.8); MCV 85.4 fL (80-100); MPV 7.9 fL (7.6-11.3); RBC Red Blood Cell Count 4.39 M/uL (3.86-4.86)
[2022-01-22 14:34] LABS: Protime INR 1.13
[2022-01-22 14:35] LABS: Blood Morphology Comment NOT SEEN (NOT SEEN); Platelet Estimate DECR; White Blood Cell Scan OK (OK)
--- NOTE | 2022-01-22 14:49 | RAD REPORT ---
EXAM DESCRIPTION: RAD - Chest Single View - 01/22/2022 2:33 pm CLINICAL HISTORY: ABDOMINAL DISTENTION COMPARISON: Portable 04/17/2021 TECHNIQUE: AP portable chest image was obtained 01/22/2022 2:33 pm . FINDINGS: No focal lung parenchymal process seen. Interstitial markings are prominent but not clearl y different from March 2021. Hilar regions are stable. Heart and vasculature are normal. No measura ble pleural effusion and no pneumothorax. No acute bony abnormality seen. No acute aortic findings kaufman spected. IMPRESSION: No acute cardiopulmonary process. No significant change from comparison study.
[2022-01-22 14:56] LABS: Albumin 3.3 g/dL (3.4-5.0); Bilirubin Direct 0.1 mg/dL (0-0.2); Bilirubin Total 0.5 mg/dL (0.2-1.0); Magnesium 1.7 mg/dL (1.8-2.4); Potassium 3.5 mmol/L (3.5-5.1); Troponin High Sensitivity 4.8 pg/mL (<58.9)
[2022-01-22] MEDS ORDERED: MORPHINE 4 MG/ML SYR ONE (15:01)
[2022-01-22] MEDS ORDERED: ONDANSETRON 4 MG/2 ML VIAL ONE ×2 (15:02→16:12)
[2022-01-22] MEDS ORDERED: FAMOTIDINE 20 MG/2 ML VIAL IV ONE (15:02)
[2022-01-22 15:45] LABS: Urine Blood Trace-intact (Negative); Urine Glucose 2+ (Negative); Urine Protein Negative (Negative); Urine Specific Gravity 1.025 (1.005-1.030); Urine pH 6.5 (5.0-7.0)
[2022-01-22] MEDS ORDERED: CEFTRIAXONE 1000 MG/VIAL ONE (16:12)
[2022-01-22] MEDS ORDERED: MAGNESIUM SULFATE 1 gm IVPB 1 GM/100 ML BAG IV ONE (16:12)
[2022-01-22] MEDS ORDERED: HYDROMORPHONE HCL 1 MG/ML INJ ONE (16:12)
--- NOTE | 2022-01-22 16:43 | RAD REPORT ---
EXAM DESCRIPTION: CT - Abdomen Pelvis W Contrast - 01/22/2022 4:22 pm CLINICAL HISTORY: Abdominal pain, acute, nonlocalized COMPARISON: <Comparisons> TECHNIQUE: Biphasic, helical CT imaging of the abdomen and pelvis was performed following 100 ml non -ionic IV contrast. No oral contrast given. All CT scans are performed using dose optimization technique as appropriate and may include automated exposure control or mA/KV adjustment according to patient size. FINDINGS: No acute lung base finding. No cardiomegaly or pericardial effusion. Lower ribcage shows n o suspicious finding. No focal lesions of the liver parenchyma. Nodular capsule contour is present. Liver findings are cons istent with the provided history of cirrhosis. No significant change from the September study. No portal vein abnormality. Spleen and pancreas show no acute findings. No peripancreatic stranding or edema. G allbladder is absent. Mild dilatation of the biliary tree is within normal range. Symmetric renal function is seen with no hydronephrosis or suspicious renal mass. No pyelonephritis o r acute parenchymal process. Bladder is mostly contracted. No gross abnormality seen. No adrenal abno rmalities. Uterus is absent. No ovarian abnormality seen. No gastric wall thickening or edema. No dilated large or small bowel loops. Appendix is normal. Colon is mostly decompressed on the left side. There is prominent left-sided diverticulosis. No acute dive rticulitis findings. No acute GI process seen. No free air, free fluid or inflammatory stranding. No hernia, mass or bulky lymphadenopathy. No suspicious bony findings. No acute vascular finding. Numerous varices are seen in the upper abdome n. IMPRESSION: Contrast enhanced CT abdomen and pelvis showing no acute or emergent finding. No significant change from the September study.
[2022-01-22] MEDS ORDERED: NA CHLORIDE 0.9% 100 ML ONE (16:50)
--- NOTE | 2022-01-22 16:56 | RAD REPORT ---
EXAM DESCRIPTION: US - Abdomen Exam Limited - 01/22/2022 4:29 pm CLINICAL HISTORY: ABD PAIN COMPARISON: Abdomen Pelvis W Contrast dated 01/22/2022 FINDINGS: Gallbladder is absent. No mass or abnormal fluid collection in the gallbladder fossa. Comm on bile duct is normal with no common duct stone identified. Coarsened increased hepatic echogenicity is noted. Liver is prominent at 19 cm with capsule nodularit y. No focal liver lesions seen. No portal vein abnormality on Doppler assessment. Patient has known l iver cirrhosis. No ascites in the upper abdomen. IMPRESSION: Normal size biliary tree in a status post cholecystectomy patient. Cirrhotic liver changes as detailed. No suspicious liver finding.
[2022-01-22] MEDS ORDERED: PANTOPRAZOLE 40 MG INJ ONE (18:03)
--- NOTE | 2022-01-22 18:29 | EDPHYS ---
Physician Documentation [facility] Name: Dena Nance Age: 52 yrs Sex: Female : 1970 Arrival Date: 01/22/2022 Time: 13:47 Bed 17 Private MD: ED Physician Ricardo Araiza HPI: 01/22 17:19 This 52 yrs old Female presents to ER via Ambulatory with complaints of tavo Abdominal Pain. 17:19 The patient presents with abdominal pain in the epigastric area, in the upper abdomen. tavo Onset: The symptoms/episode began/occurred yesterday. The symptoms radiate to left upper quadrant. Associated signs and symptoms: Pertinent positives: nausea. The symptoms are described as constant, crampy, shooting. Modifying factors: The symptoms are alleviated by nothing, the symptoms are aggravated by nothing. Severity of pain: At its worst the pain was moderate in the emergency department the pain is unchanged. The patient has not experienced similar symptoms in the past. Historical: - Allergies: 14:39 NKA; tp1 - Home Meds: 14:39 dicyclomine 20 mg Oral tab 4 times per day [Active]; metformin 1,000 mg Oral tab 2 tp1 times per day [Active]; Toujeo SoloStar subcutaneous [Active]; glimepiride 4 mg Oral tab twice a day [Active]; Alprazolam Oral [Active]; - PMHx: 14:39 cirrhosis of liver; Colitis; Diabetes - NIDDM; Diverticulitis; fatty liver; gastritis; tp1 Pancreatitis; Crohn's disease; - PSHx: 14:39 Cholecystectomy; hysterectomy; tp1 - Immunization history:: Client reports receiving the 2nd dose of the Covid vaccine. - Social history:: Smoking status: Patient denies any tobacco usage or history of. - Family history:: not pertinent. ROS: 17:19 Constitutional: Negative for fever, chills, and weight loss, Eyes: Negative for injury, tavo pain, redness, and discharge, ENT: Negative for injury, pain, and discharge, Neck: Negative for injury, pain, and swelling, Cardiovascular: Negative for chest pain, palpitations, and edema, Respiratory: Negative for shortness of breath, cough, wheezing, and pleuritic chest pain, Back: Negative for injury and pain, : Negative for injury, bleeding, discharge, and swelling, MS/Extremity: Negative for injury and deformity, Skin: Negative for injury, rash, and discoloration, Neuro: Negative for headache, weakness, numbness, tingling, and seizure, Psych: Negative for depression, anxiety, suicide ideation, homicidal ideation, and hallucinations, Allergy/Immunology: Negative for hives, rash, and allergies, Endocrine: Negative for neck swelling, polydipsia, polyuria, polyphagia, and marked weight changes, Hematologic/Lymphatic: Negative for swollen nodes, abnormal bleeding, and unusual bruising. 17:19 MS/extremity: Negative for acute changes, injury or acute deformity, swelling, tenderness. Exam: 17:19 Constitutional: This is a well developed, well nourished patient who is awake, alert, tavo and in no acute distress. Head/Face: Normocephalic, atraumatic. Eyes: Pupils equal round and reactive to light, extra-ocular motions intact. Lids and lashes normal. Conjunctiva and sclera are non-icteric and not injected. Cornea within normal limits. Periorbital areas with no swelling, redness, or edema. ENT: Nares patent. No nasal discharge, no septal abnormalities noted. Tympanic membranes are normal and external auditory canals are clear. Oropharynx with no redness, swelling, or masses, exudates, or evidence of obstruction, uvula midline. Mucous membranes moist. Neck: Trachea midline, no thyromegaly or masses palpated, and no cervical lymphadenopathy. Supple, full range of motion without nuchal rigidity, or vertebral point tenderness. No Meningismus. Chest/axilla: Normal chest wall appearance and motion. Nontender with no deformity. No lesions are appreciated. Cardiovascular: Regular rate and rhythm with a normal S1 and S2. No gallops, murmurs, or rubs. Normal PMI, no JVD. No pulse deficits. Respiratory: Lungs have equal breath sounds bilaterally, clear to auscultation and percussion. No rales, rhonchi or wheezes noted. No increased work of breathing, no retractions or nasal flaring. Back: No spinal tenderness. No costovertebral tenderness. Full range of motion. Skin: Warm, dry with normal turgor. Normal color with no rashes, no lesions, and no evidence of cellulitis. MS/ Extremity: Pulses equal, no cyanosis. Neurovascular intact. Full, normal range of motion. Neuro: Awake and alert, GCS 15, oriented to person, place, time, and situation. Cranial nerves II-XII grossly intact. Motor strength 5/5 in all extremities. Sensory grossly intact. Cerebellar exam normal. Normal gait. Psych: Awake, alert, with orientation to person, place and time. Behavior, mood, and affect are within normal limits. 17:19 ECG was reviewed by the Attending Physician. 17:19 Abdomen/GI: Inspection: abdomen appears normal, Bowel sounds: normal, Palpation: moderate abdominal tenderness, in the epigastric area and left upper quadrant, Liver: no appreciated palpable abnormalities, Hernia: not appreciated. 17:26 Musculoskeletal/extremity: DVT Exam: No signs of deep vein thrombosis. no pain, no tavo swelling, no tenderness, negative Homans' sign noted on exam, no appreciated bluish discoloration, no erythema, no increased warmth. Vital Signs: 14:00 BP 126 / 55; Pulse 103; Resp 20; Temp 98.2; Pulse Ox 99% on R/A; Weight 68.04 kg; tp1 Height 5 ft. 4 in. (162.56 cm); Pain 10/10; 15:12 BP 123 / 62; Pulse 91; Resp 14; Pulse Ox 98% on R/A; tp1 15:49 BP 126 / 3; Pulse 86; Resp 20; Pulse Ox 96% ; tp1 16:30 BP 130 / 61; Pulse 90; Resp 15; Pulse Ox 97% on R/A; tp1 18:05 BP 127 / 60; Pulse 89; Resp 18; Pulse Ox 96% on R/A; tp1 19:00 BP 120 / 63; Pulse 83; Resp 18; Pulse Ox 96% on R/A; ll3 20:20 BP 108 / 64; Pulse 81; Resp 18; Pulse Ox 98% on R/A; ll3 22:13 BP 116 / 59; Pulse 77; Resp 18; Pulse Ox 95% on R/A; ll3 14:00 Body Mass Index 25.75 (68.04 kg, 162.56 cm) tp1 MDM: 13:54 Patient medically screened. tavo 17:26 Differential diagnosis: diverticulitis, gastritis, Hepatitis, Irritable bowel syndrome, tavo Menorrhagia, myocardia ischemia or infarction, non-specific abd pain, pancreatitis, Peptic Ulcer Disease, Peritonitis, urinary tract infection. Data reviewed: vital signs, nurses notes, lab test result(s), EKG, radiologic studies, CT scan, plain films. Data interpreted: phototypesetting equipment monitor: Pulse oximetry: on room air is 97 %. Test interpretation: by ED physician or midlevel provider: ECG, plain radiologic studies. Counseling: I had a detailed discussion with the patient and/or guardian regarding: the historical points, exam findings, and any diagnostic results supporting the discharge/admit diagnosis, lab results, radiology results. 01/22 13:56 Order name: Basic Metabolic Panel; Complete Time: 15:41 [facility] 01/22 13:56 Order name: CBC with Diff; Complete Time: 15:41 [facility] 01/22 13:56 Order name: LFT's; Complete Time: 15:41 [facility] 01/22 13:56 Order name: Magnesium; Complete Time: 15:41 [facility] 01/22 13:56 Order name: NT PRO-BNP; Complete Time: 15:41 [facility] 01/22 13:56 Order name: PT-INR; Complete Time: 15:41 [facility] 01/22 13:56 Order name: Troponin HS; Complete Time: 15:41 [facility] 01/22 13:56 Order name: Lipase; Complete Time: 15:41 [facility] 01/22 14:35 Order name: CBC Smear Scan; Complete Time: 15:41 [facility] 01/22 15:42 Order name: AMMONIA; Complete Time: 17:16 [facility] 01/22 15:46 Order name: Urine Dipstick-Ancillary; Complete Time: 15:57 [facility] 01/22 15:59 Order name: Urine Culture [facility] 01/22 17:16 Order name: Occult Blood--Ancillary 01/22 17:19 Order name: D-Dimer; Complete Time: 18:23 [facility] 01/22 13:56 Order name: XRAY Chest (1 view); Complete Time: 15:41 [facility] 01/22 13:56 Order name: CT Abd/Pelvis - IV Contrast Only; Complete Time: 16:48 [facility] 01/22 15:59 Order name: US Abdomen Limited; Complete Time: 17:04 [facility] 01/22 18:25 Order name: SARS RAPID; Complete Time: 21:59 01/22 18:47 Order name: US Extremity Venous W Compression Matthew; Complete Time: 21:59 [facility] 01/22 13:56 Order name: EKG; Complete Time: 13:57 01/22 13:56 Order name: Cardiac monitoring; Complete Time: 14:24 01/22 13:56 Order name: EKG - Nurse/Tech; Complete Time: 14:35 01/22 13:56 Order name: IV Saline Lock; Complete Time: 14:24 01/22 13:56 Order name: Labs collected and sent; Complete Time: 14:24 01/22 13:56 Order name: O2 Per Protocol; Complete Time: 14:24 01/22 13:56 Order name: O2 Sat Monitoring; Complete Time: 14:24 01/22 13:56 Order name: Urine Dipstick-Ancillary (obtain specimen); Complete Time: 15:45 [facility] 01/22 17:56 Order name: Labs - recollect needed: recollect ddimer, do not draw from iv.; Complete bd Time: 18:12 EC:19 Rate is 89 beats/min. Rhythm is regular. QRS [place] is Normal. ND interval is normal. QRS tavo interval is normal. QT interval is normal. No Q waves. T waves are Normal. No ST changes noted. Clinical impression: Normal ECG and No evidence of ischemia. Interpreted by me. Reviewed by me. Administered Medications: 14:22 Drug: NS 0.9% 500 ml Route: IV; Rate: bolus; Site: right forearm; tp1 14:48 Follow up: IV Status: Completed infusion; IV Intake: 500ml tp1 14:48 Drug: NS 0.9% 1000 ml Route: IV; Rate: 125 ml/hr; Site: right forearm; tp1 15:03 Drug: Zofran (Ondansetron) 4 mg Route: IVP; Site: right forearm; tp1 15:48 Follow up: Response: Nausea is decreased tp1 15:05 Drug: Pepcid (famotidine) 20 mg Route: IVP; Site: right forearm; tp1 18:18 Follow up: Response: No adverse reaction tp1 15:07 Drug: morphine 4 mg Route: IVP; Infused Over: 4 mins; Site: right forearm; tp1 15:48 Follow up: Response: Pain is decreased tp1 16:07 Drug: Zofran (Ondansetron) 4 mg Route: IVP; Site: right forearm; tp1 17:06 Follow up: Response: No adverse reaction tp1 16:10 Drug: Dilaudid (HYDROmorphone) 1 mg Route: IVP; Site: right forearm; tp1 17:06 Follow up: Response: Pain is decreased tp1 16:48 Drug: Rocephin (cefTRIAXone) 1 grams Route: IV; Rate: per protocol; Site: right forearm;tp1 17:15 Follow up: IV Status: Completed infusion; IV Intake: 100ml tp1 17:16 Drug: Magnesium Sulfate 1 grams Route: IVPB; Infused Over: 1 hrs; Site: right forearm; tp1 18:18 Follow up: Response: No adverse reaction; IV Status: Completed infusion; IV Intake: tp1 100ml 18:16 Drug: ProTONIX (pantoprazole) 40 mg Route: IVP; Site: right forearm; tp1 19:50 Drug: Aspirin Chewable Tablet 81 mg Route: PO; ll3 19:50 Not Given (Patient Refused): Lovenox (enoxaparin) 1 mg/kg Sub-Q once ll3 Disposition Summary: 01/22/22 18:28 Hospitalization Ordered Hospitalization Status: Observation tavo Provider: Negrito Can cha Condition: Fair tavo Problem: new tavo Symptoms: have improved tavo Bed/Room Type: Standard tavo Location: Telemetry/MedSurg (observation)(01/22/22 22:15) Room Assignment: [facility](01/22/22 22:15) Diagnosis - Epigastric abdominal tenderness tavo - Chest pain on breathing tavo - Dyspnea tavo - Hypomagnesemia tavo - Abnormal levels of other serum enzymes - D-Dimer elevated tavo Discharge Instructions: - Discharge Summary Sheet tavo - Abdominal Pain, Adult tavo - Cirrhosis tavo - Abdominal Pain, Adult, [id number] tavo Forms: - Medication Reconciliation Form tavo - SBAR form tavo Prescriptions: - Protonix 40 mg Oral Tablet - take 1 tablet by ORAL route once daily; 30 tablet; Refills: 0, Product tavo Selection Permitted - dicyclomine 20 mg Oral Tablet - take 1 tablet by ORAL route 4 times per day for 7 days; 28 tablet; Refills: 0, tavo Product Selection Permitted Signatures: Dispatcher [employer] Corry Jones Corey, MD MD cha Garcia, Cindy, RN RN Tyrone Elizalde RN RN jl7 Gulshan Whiteside RN RN ll3 Delicia Vásquez RN RN tp1 Angelina Vitale, PA PA sb3 Corrections: (The following items were deleted from the chart) : 18:28 Telemetry/MedSurg (observation) atvo jl7 : 18:28 tavo jl7 22:15 19:04 [facility] jl7 cg : 19:04 [facility] jl7 cg
--- NOTE | 2022-01-22 18:29 | ER ---
Nurse's Notes [facility] Name: Dena Nance Age: 52 yrs Sex: Female : 1970 Arrival Date: 01/22/2022 Time: 13:47 Bed 17 Private MD: Diagnosis: Epigastric abdominal tenderness;Chest pain on breathing;Dyspnea;Hypomagnesemia;Abnormal levels of other serum [id number] elevated Presentation: 01/22 14:00 Initial Sepsis Screen: Does the patient meet any 2 criteria? No. Patient's initial tp1 sepsis screen is negative. Does the patient have a suspected source of infection? No. Patient's initial sepsis screen is negative. Risk Assessment: Do you want to hurt yourself or someone else? Patient reports no desire to harm self or others. Onset of symptoms was January 21, 2022. 14:00 Acuity: MARIANA 3 tp1 14:06 Chief complaint: Patient states: sharp, continuous epigastric pain that started tp1 yesterday around 10 AM and radiates to the left side under ribs. Pain rated 10/10. CO chest pain and SOB this morning but has stopped. CO blurred vision, nausea, anorexia, and diarrhea. states has had unintentional weight loss over the past year. 14:35 Coronavirus screen: Vaccine status: Patient reports receiving the 2nd dose of the covid tp1 vaccine. Ebola Screen: Patient denies exposure to infectious person. Patient denies travel to an Ebola-affected area in the 21 days before illness onset. 14:35 Method Of Arrival: Ambulatory tp1 Triage Assessment: 14:00 General: Appears in no apparent distress. uncomfortable, Behavior is calm, cooperative. tp1 Pain: Complains of pain in epigastric area Pain radiates to left upper quadrant Pain currently is 10 out of 10 on a pain scale. Quality of pain is described as sharp, stabbing, Pain began 1 day ago. Is continuous. EENT: No signs and/or symptoms were reported regarding the EENT system. Neuro: Level of Consciousness is awake, alert, obeys commands, Oriented to person, place, time, situation. Cardiovascular: Patient's skin is warm and dry. Respiratory: Airway is patent Respiratory effort is even, unlabored. GI: Abdomen is round Bowel sounds hyperactive in right upper quadrant, left upper quadrant, right lower quadrant and left lower quadrant Abd is soft Abdomen is tender to palpation in right upper quadrant and left upper quadrant Reports anorexia, diarrhea, nausea, Patient currently denies vomiting. : No signs and/or symptoms were reported regarding the genitourinary system. Derm: Skin is pink, warm \T\ dry. Musculoskeletal: Circulation, motion, and sensation intact. Historical: - Allergies: 14:39 NKA; tp1 - Home Meds: 14:39 dicyclomine 20 mg Oral tab 4 times per day [Active]; metformin 1,000 mg Oral tab 2 tp1 times per day [Active]; Toujeo SoloStar subcutaneous [Active]; glimepiride 4 mg Oral tab twice a day [Active]; Alprazolam Oral [Active]; - PMHx: 14:39 cirrhosis of liver; Colitis; Diabetes - NIDDM; Diverticulitis; fatty liver; gastritis; tp1 Pancreatitis; Crohn's disease; - PSHx: 14:39 Cholecystectomy; hysterectomy; tp1 - Immunization history:: Client reports receiving the 2nd dose of the Covid vaccine. - Social history:: Smoking status: Patient denies any tobacco usage or history of. - Family history:: not pertinent. Screenin:10 Abuse screen: Denies threats or abuse. Nutritional screening: No deficits noted. tp1 Tuberculosis screening: No symptoms or risk factors identified. Fall Risk No fall in past 12 months (0 pts). IV access (20 points). Ambulatory Aid- None/Bed Rest/Nurse Assist (0 pts). Gait- Normal/Bed Rest/Wheelchair (0 pts) Mental Status- Oriented to own ability (0 pts). Total Scott Fall Scale indicates No Risk (0-24 pts). Assessment: 14:00 Reassessment: see triage. tp1 15:00 Reassessment: Patient appears in no apparent distress at this time. No changes from tp1 previously documented assessment. Patient and/or family updated on plan of care and expected duration. Pain level reassessed. Patient is alert, oriented x 3, equal unlabored respirations, skin warm/dry/pink. 15:48 Reassessment: Patient appears in no apparent distress at this time. No changes from tp1 previously documented assessment. Patient and/or family updated on plan of care and expected duration. Pain level reassessed. Patient is alert, oriented x 3, equal unlabored respirations, skin warm/dry/pink. stated morphine decreased pain but pain is coming back. rates pain 10/10 in epigastric area. 16:48 Reassessment: Patient appears in no apparent distress at this time. Patient and/or tp1 family updated on plan of care and expected duration. Pain level reassessed. Patient is alert, oriented x 3, equal unlabored respirations, skin warm/dry/pink. states pain has decreased and rated 8/10. 17:48 Reassessment: Patient appears in no apparent distress at this time. No changes from tp1 previously documented assessment. Patient and/or family updated on plan of care and expected duration. Pain level reassessed. Patient is alert, oriented x 3, equal unlabored respirations, skin warm/dry/pink. rated pain 3/10, denies need for further medication. lights dimmed. 18:58 Reassessment: Patient appears in no apparent distress at this time. No changes from tp1 previously documented assessment. Patient and/or family updated on plan of care and expected duration. Pain level reassessed. Patient is alert, oriented x 3, equal unlabored respirations, skin warm/dry/pink. continues to rate pain 3/10. denies need for further intervention. 20:19 Reassessment: Patient and/or family updated on plan of care and expected duration. Pain ll3 level reassessed. Patient is alert, oriented x 3, equal unlabored respirations, skin warm/dry/pink. Patient states symptoms have improved. 22:13 Reassessment: No changes from previously documented assessment. Patient and/or family ll3 updated on plan of care and expected duration. Pain level reassessed. Patient is alert, oriented x 3, equal unlabored respirations, skin warm/dry/pink. Vital Signs: 14:00 BP 126 / 55; Pulse 103; Resp 20; Temp 98.2; Pulse Ox 99% on R/A; Weight 68.04 kg; tp1 Height 5 ft. 4 in. (162.56 cm); Pain 10/10; 15:12 BP 123 / 62; Pulse 91; Resp 14; Pulse Ox 98% on R/A; tp1 15:49 BP 126 / 3; Pulse 86; Resp 20; Pulse Ox 96% ; tp1 16:30 BP 130 / 61; Pulse 90; Resp 15; Pulse Ox 97% on R/A; tp1 18:05 BP 127 / 60; Pulse 89; Resp 18; Pulse Ox 96% on R/A; tp1 19:00 BP 120 / 63; Pulse 83; Resp 18; Pulse Ox 96% on R/A; ll3 20:20 BP 108 / 64; Pulse 81; Resp 18; Pulse Ox 98% on R/A; ll3 22:13 BP 116 / 59; Pulse 77; Resp 18; Pulse Ox 95% on R/A; ll3 14:00 Body Mass Index 25.75 (68.04 kg, 162.56 cm) tp1 ED Course: 13:47 Patient arrived in ED. mr 13:54 Ricardo Araiza MD is Attending Physician. tavo 14:00 Arm band placed on. tp1 14:00 Patient has correct armband on for positive identification. Bed in low position. Call tp1 light in reach. Side rails up X 1. 14:05 Delicia Vásquez RN is Primary Nurse. tp1 14:18 Inserted saline lock: 20 gauge in right forearm, using aseptic technique. Blood tp1 collected. 14:18 Client placed on continuous cardiac and pulse oximetry monitoring. NIBP monitoring tp1 applied. 14:32 X-ray completed. Portable x-ray completed in exam room. Patient tolerated procedure mh1 well. 14:35 XRAY Chest (1 view) In Process Unspecified. EDMS 14:35 EKG done, by ED staff. tp1 14:39 Triage completed. tp1 15:45 Assisted to bathroom. Repositioned patient. mb7 16:24 CT Abd/Pelvis - IV Contrast Only In Process Unspecified. EDMS 16:31 US Abdomen Limited In Process Unspecified. EDMS 17:11 Served as a staker surveying during rectal exam. tolerated well. tp1 18:24 Negrito Can is Hospitalizing Provider. tavo 19:28 US Extremity Venous W Compression Matthew In Process Unspecified. EDMS 22:14 Patient admitted, IV remains in place. ll3 Administered Medications: 14:22 Drug: NS 0.9% 500 ml Route: IV; Rate: bolus; Site: right forearm; tp1 14:48 Follow up: IV Status: Completed infusion; IV Intake: 500ml tp1 14:48 Drug: NS 0.9% 1000 ml Route: IV; Rate: 125 ml/hr; Site: right forearm; tp1 15:03 Drug: Zofran (Ondansetron) 4 mg Route: IVP; Site: right forearm; tp1 15:48 Follow up: Response: Nausea is decreased tp1 15:05 Drug: Pepcid (famotidine) 20 mg Route: IVP; Site: right forearm; tp1 18:18 Follow up: Response: No adverse reaction tp1 15:07 Drug: morphine 4 mg Route: IVP; Infused Over: 4 mins; Site: right forearm; tp1 15:48 Follow up: Response: Pain is decreased tp1 16:07 Drug: Zofran (Ondansetron) 4 mg Route: IVP; Site: right forearm; tp1 17:06 Follow up: Response: No adverse reaction tp1 16:10 Drug: Dilaudid (HYDROmorphone) 1 mg Route: IVP; Site: right forearm; tp1 17:06 Follow up: Response: Pain is decreased tp1 16:48 Drug: Rocephin (cefTRIAXone) 1 grams Route: IV; Rate: per protocol; Site: right forearm;tp1 17:15 Follow up: IV Status: Completed infusion; IV Intake: 100ml tp1 17:16 Drug: Magnesium Sulfate 1 grams Route: IVPB; Infused Over: 1 hrs; Site: right forearm; tp1 18:18 Follow up: Response: No adverse reaction; IV Status: Completed infusion; IV Intake: tp1 100ml 18:16 Drug: ProTONIX (pantoprazole) 40 mg Route: IVP; Site: right forearm; tp1 19:50 Drug: Aspirin Chewable Tablet 81 mg Route: PO; ll3 19:50 Not Given (Patient Refused): Lovenox (enoxaparin) 1 mg/kg Sub-Q once ll3 Medication: 19:10 VIS not applicable for this client. tp1 Intake: 14:48 IV: 500ml; Total: 500ml. tp1 17:15 IV: 100ml; Total: 600ml. tp1 18:18 IV: 100ml; Total: 700ml. tp1 Outcome: 18:28 Decision to Hospitalize by Provider. tavo 22:14 Admitted to ER Hold. Please see [facility] for further documentation. ll3 22:14 Condition: stable 22:14 Discharge instructions given to patient, Instructed on the need for admit, Demonstrated understanding of instructions. 23:46 Patient left the ED. bb Signatures: Dispatcher [employer] EDMS Ricardo Araiza MD MD cha Rivera, Mary Juan Manuel Tidwellha 1 Fatimah Romero RN RN bb Gulshan Whiteside RN RN 3 Delicia Vásquez RN RN tp1 PhyliciaDeonna dickerson mb7 Corrections: (The following items were deleted from the chart) 14:39 14:06 Chief complaint: Patient states: sharp, continuous epigastric pain that started tp1 yesterday around 10 AM and radiates to the left side under ribs. Pain rated 10/10. CO chest pain and SOB this morning but has stopped. CO blurred vision, nausea, and diarrhea. tp1 18:19 17:48 Reassessment: Patient appears in no apparent distress at this time. No changes tp1 from previously documented assessment. Patient and/or family updated on plan of care and expected duration. Pain level reassessed. Patient is alert, oriented x 3, equal unlabored respirations, skin warm/dry/pink. tp1 18:30 18:16 ProTONIX (pantoprazole) 40 mg IVP in left forearm tp1 tp1 20:19 20:19 Reassessment: No changes from previously documented assessment. Patient and/or ll3 family updated on plan of care and expected duration. Pain level reassessed. Patient is alert, oriented x 3, equal unlabored respirations, skin warm/dry/pink. ll3
--- NOTE | 2022-01-22 19:30 | P.HP ---
Certification for Inpatient Patient admitted to: Observation With expected LOS: <2 Midnights Patient will require the following post-hospital care: None Practitioner: I am a practitioner with admitting privileges, knowledge of patient current condition, hospital course, and medical plan of care. Services: Services provided to patient in accordance with Admission requirements found in Title 42 Section 412.3 of the Code of Federal Regulations Patient History Date of Service: 01/22/22 Primary Care Provider: Sourav Reason for admission: PE Rule Out History of Present Illness: Patient is a 52-year-old female with NIDDM and cirrhosis who presented to the ED with complaints of epigastric pain, chest pain, and shortness of breath. Patient reports that she has been dealing with epigastric pain (that radiates to the left) for almost 10 years and her work-ups are always negative. Labs in the ED significant for WBC 11.2, platelet 33, D-dimer 606, glucose 237, magnesium 1.7, urine positive for UTI. VSS. CT abd/pelv negative for acute processes. She was given IV pain medications, Rocephin, supplemental magnesium, and aspirin in the ED. Patient later mentioned she was having chest pain upon breathing. Extremity venous US negative for DVT. Because patient already had CT abd/pelv, CT chest was put on hold. Lovenox was also put on hold given low suspicion for embolism and severe thrombocytopenia. Upon my assessment, patient reports she is feeling much better. Her physical exam is benign. ED provider wishes to admit patient for observation and for CT chest angio in the morning. Allergies No Known Drug Allergies Allergy (Verified 06/11/18 03:55) No Known Drug Allergies Home medications list reviewed: Yes Home Medications: Metformin ER [Glucophage ER*] 2 tab PO BID 09/30/17 Dicyclomine [Bentyl*] 20 mg PO QID 06/11/18 ALPRAZolam [Alprazolam] 1 tab PO DAILY PRN 08/07/20 Ertugliflozin Pidolate [Steglatro] 1 tab PO DAILY 08/07/20 Insulin Degludec [Tresiba Flextouch U-200] 60 unit SQ DAILY 08/07/20 Trazodone [Desyrel*] 1 tab PO BEDTIME 08/07/20 Ascorbic Acid [Vitamin C*] 2,000 mg PO BID #240 tablet 08/09/20 Benzonatate [Tessalon Perle*] 100 mg PO TID PRN #90 cap 08/09/20 Cholecalciferol (Vitamin D3) [Vitamin D 1000 Iu Tab*] 4,000 unit PO DAILY #120 tab 08/09/20 Melatonin 5 mg PO BEDTIME PRN PRN #30 tablet 08/09/20 Thiamine HCl [Vitamin B-1*] 200 mg PO DAILY #60 tablet 08/09/20 Zinc Sulfate [Zinc Sulfate*] 220 mg PO DAILY #30 cap 08/09/20 predniSONE [Deltasone] 20 mg PO BID #21 tab 08/09/20 - Past Medical/Surgical History Diabetic: Yes -: Diabetes mellitus type 2 -: pancreatitis -: Fatty liver disease -: Cholecystectomy -: Hysterectomy Psychosocial/ Personal History: 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 reports history of diverticulities, pancreatities, and stomach ulcer. Brother -: Diabetes Sister -: Diabetes - Social History Smoking Status: Never smoker Alcohol use: No CD- Drugs: No Caffeine use: Yes Place of Residence: Home Review of Systems Respiratory: Shortness of Breath Cardiovascular: Chest Pain Gastrointestinal: Abdominal Pain Physical Examination - Physical Exam General: Alert, In no apparent distress HEENT: Atraumatic, PERRLA, EOMI, Sclerae nonicteric Neck: Supple, 2+ carotid pulse no bruit, No LAD, Without JVD or thyroid abnormality Respiratory: Clear to auscultation bilaterally, Normal air movement Cardiovascular: Regular rate/rhythm, Normal S1 S2 Gastrointestinal: Normal bowel sounds, No tenderness Musculoskeletal: No tenderness Integumentary: No rashes Neurological: Normal speech, Normal strength at 5/5 x4 extr, Normal tone, Normal affect - Studies Laboratory Data (last 24 hrs) 01/22/22 14:18: PT 12.5, INR 1.13 01/22/22 14:18: WBC 11.2 H, Hgb 12.5, Hct 37.5, Plt Count 33 L* 01/22/22 14:18: Sodium 136, Potassium 3.5, BUN 18, Creatinine 0.94, Glucose 237 H, Magnesium 1.7 L, Total Bilirubin 0.5, AST 30, ALT 40, Alkaline Phosphatase 140 H, Lipase 48 L Assessment and Plan - Problems (Diagnosis) (1) Elevated d-dimer Current Visit: Yes Status: Acute (2) Abdominal pain Current Visit: Yes Status: Acute Qualifiers: Abdominal location: epigastric Qualified Code(s): R10.13 - Epigastric pain (3) Chest pain Current Visit: Yes Status: Acute Qualifiers: Chest pain type: chest pain on breathing Qualified Code(s): R07.1 - Chest pain on breathing; R07.81 - Pleurodynia (4) Diabetes Current Visit: Yes Status: Chronic Qualifiers: Diabetes mellitus type: type 2 Diabetes mellitus mcfp insulin use: without mcfp use Diabetes mellitus complication status: with hyperglycemia Qualified Code(s): E11.65 - Type 2 diabetes mellitus with hyperglycemia (5) Thrombocytopenia Current Visit: Yes Status: Chronic (6) UTI (urinary tract infection) Onset Date: 01/08/17 Current Visit: No Status: Acute Qualifiers: Urinary tract infection type: acute cystitis Hematuria presence: without hematuria Qualified Code(s): N30.00 - Acute cystitis without hematuria - Plan -CT chest PE protocol ordered for morning -Monitor on telemetry overnight -ACHS accu checks with mild SS. A1C ordered -Continue rocephin for UTI -Gentle IV hydration -Recheck lipase and amylase in morning given epigastric pain and history of pancreatitis -Morphine PRN pain -Breathing treatments as needed -Monitor and replete electrolytes per protocol -Reconcile and continue home medications -SCDs for VTE ppx -Full code Discharge Plan: Home Plan to discharge in: 24 Hours - Advance Directives Does patient have a Living Will: No Does patient have a Durable POA for Healthcare: No - Code Status/Comfort Care Code Status Assessed: Yes (Full) Critical Care: No Time Spent Managing Pts Care (In Minutes): 50
[2022-01-22 19:41] LABS: SARS-CoV-2 Antigen Rapid Res Negative (Negative)
[2022-01-22] MEDS ORDERED: ASPIRIN EC 81 MG TAB PO ONE (19:41)
[2022-01-22] MEDS ORDERED: ENOXAPARIN 80 MG/0.8 ML SQ ONE (19:41)
--- NOTE | 2022-01-22 19:49 | RAD REPORT ---
EXAM DESCRIPTION: US - Extrem Venous W Compress Matthew - 01/22/2022 7:26 pm CLINICAL HISTORY: Painboth legs COMPARISON: None. TECHNIQUE: Real-time sonographic evaluation of the bilateral lower extremity common femoral, superfi cial femoral, popliteal and posterior tibial veins was performed. FINDINGS: Normal compressibility, flow augmentation, phasic flow and spontaneous flow are identified in the left and right lower extremity common femoral, superficial femoral, popliteal and posterior t ibial veins. No intraluminal filling defects seen. IMPRESSION: No DVT in either lower extremity.
[2022-01-22] MEDS ORDERED: ONDANSETRON 4 MG/2 ML VIAL IV PRN (22:10)
[2022-01-22] MEDS ORDERED: MORPHINE 2 MG/ML SYR IV PRN (22:10)
[2022-01-22] MEDS ORDERED: ALBUTEROL 2.5 MG/3 ML NEB SOL NEB PRN (22:10)
[2022-01-22] MEDS ORDERED: ACETAMINOPHEN 500 MG TAB PO PRN (22:10)
[2022-01-22 23:26] VITALS: O2SAT 96
[2022-01-22 23:56] VITALS: BMI 26.6
[2022-01-23] MEDS: INSULIN -REGULAR HUMAN 50 UNIT/0.5 ML ML SQ SCH ×3 (00:28→11:30)
[2022-01-23] MEDS: NA CHLORIDE 0.9% 1,000 ML IV SCH ×2 (00:29→12:32)
[2022-01-23 06:14] LABS: Absolute Lymphocytes (CBC) 1.3 K/uL (0.7-4.9); Hematocrit 32.4 % (36.0-45.0); MCV 83.9 fL (80-100); MPV 9.2 fL (7.6-11.3); RBC Red Blood Cell Count 3.86 M/uL (3.86-4.86)
[2022-01-23 06:36] LABS: Phosphorus 2.8 mg/dL (2.5-4.9); Potassium 3.9 mmol/L (3.5-5.1); Thyroid Stimulating Hormone 1.13 uIU/mL (0.360-3.740)
--- NOTE | 2022-01-23 06:40 | EKG ---
Test Date: 2022-01-22 Test Time: 14:34:15 Manager Drug Safety: TP MEASUREMENT RESULTS: Intervals: Rate: 89 AK: 184 QRSD: 80 QT: 330 QTc: 401 Busby: P: 71 AK: 184 QRS: 69 T: 50 INTERPRETIVE STATEMENTS: Normal sinus rhythm Normal ECG Compared to ECG 04/17/2021 10:41:52 No significant changes Electronically Signed On 01-23-22 06:38:38 CDT by Jeff Rapp
[2022-01-23] MEDS ORDERED: CEFTRIAXONE 1,000 MG in NA CHLORIDE 0.9% 50 ML IVPB SCH (09:00)
[2022-01-23] MEDS ORDERED: POTASSIUM CL SA 10 MEQ TAB PO ONE (09:00)
[2022-01-23 13:23] VITALS: BP 114/56; TEMP 97.9
--- NOTE | 2022-01-23 14:37 | RAD REPORT ---
EXAM DESCRIPTION: CT - Chest For Pe Angio - 01/23/2022 2:20 pm CLINICAL HISTORY: Chest pain. elevated d dimer, chest pain on breathing COMPARISON: No comparisons TECHNIQUE: CT angiogram of the pulmonary arteries was performed with MIP. All CT scans are performed using dose optimization technique as appropriate and may include automated exposure control or mA/KV adjustment according to patient size. FINDINGS: No evidence of pulmonary thromboembolism. No acute aortic finding demonstrated. The lungs are clear. No significant pericardial or pleural fluid. No concerning bony finding. IMPRESSION: No evidence of pulmonary thromboembolism. No acute lung findings.
--- NOTE | 2022-01-23 15:58 | P.DS ---
Admission Date: 01/22/22 Discharge Date: 01/23/22 Primary Care Provider: Sourav Disposition: ROUTINE DISCHARGE Discharge Condition: FAIR Reason for Admission: PE Rule Out - Problems (1) Liver cirrhosis Status: Acute (2) Chest pain Status: Acute Qualifiers: Chest pain type: chest pain on breathing Qualified Code(s): R07.1 - Chest pain on breathing; R07.81 - Pleurodynia (3) Elevated d-dimer Status: Acute (4) Diabetes Status: Chronic Qualifiers: Diabetes mellitus type: type 2 Diabetes mellitus group home insulin use: without supervisor intermediates use Diabetes mellitus complication status: with hyperglycemia Qualified Code(s): E11.65 - Type 2 diabetes mellitus with hyperglycemia (5) Thrombocytopenia Status: Chronic Brief History of Present Illness: Patient is a 52-year-old female with NIDDM and cirrhosis who presented to the ED with complaints of epigastric pain, chest pain, and shortness of breath. Patient reports that she has been dealing with epigastric pain (that radiates to the left) for almost 10 years and her work-ups are always negative. Labs in the ED significant for WBC 11.2, platelet 33, D-dimer 606, glucose 237, magnesium 1.7, urine positive for UTI. VSS. CT abd/pelv negative for acute processes. She was given IV pain medications, Rocephin, supplemental magnesium, and aspirin in the ED. Patient later mentioned she was having chest pain upon breathing. Extremity venous US negative for DVT. Because patient already had CT abd/pelv, CTPE was put on hold. Lovenox was also put on hold given low suspicion for embolism and severe thrombocytopenia. Patient hospitalized for further management. Hospital Course: Patient placed under observation on the medical floor. Troponin was negative. She described epigastric pain radiating to the left flank. CTA thorax negative for pulmonary embolism. PE ruled out. UA with mild evidence of UTI. Patient was given a dose of IV morphine. She is clinically stable for discharge. She is prescribed Protonix for possible GERD. Vital Signs/Physical Exam: Temp Pulse Resp BP Pulse Ox 97.9 F 69 16 114/56 L 97 01/23/22 12:00 01/23/22 12:00 01/23/22 12:00 01/23/22 12:00 01/23/22 12:00 General: Alert, In no apparent distress, Oriented x3 HEENT: Mucous membr. moist/pink Neck: Supple, JVD not distended Cardiovascular: No edema, Regular rate/rhythm, Normal S1 S2 Capillary refill: <2 Seconds Gastrointestinal: Normal bowel sounds, Soft and benign, Non-distended Musculoskeletal: No swelling Integumentary: No rashes Neurological: Normal strength at 5/5 x4 extr Laboratory Data at Discharge: WBC 7.5 K/uL (4.3-10.9) D 01/23/22 05:43 Hgb 11.1 g/dL (12.0-15.0) L 01/23/22 05:43 Hct 32.4 % (36.0-45.0) L 01/23/22 05:43 Plt Count 36 K/uL (152-406) L* 01/23/22 05:43 PT 12.5 SECONDS (9.5-12.5) 01/22/22 14:18 INR 1.13 01/22/22 14:18 Sodium 137 mmol/L (136-145) 01/23/22 05:43 Potassium 3.9 mmol/L (3.5-5.1) 01/23/22 05:43 BUN 12 mg/dL (7-18) 01/23/22 05:43 Creatinine 0.72 mg/dL (0.55-1.3) 01/23/22 05:43 Glucose 215 mg/dL (74-106) H 01/23/22 05:43 Phosphorus 2.8 mg/dL (2.5-4.9) 01/23/22 05:43 Magnesium 2.0 mg/dL (1.8-2.4) 01/23/22 05:43 Total Bilirubin 0.5 mg/dL (0.2-1.0) 01/22/22 14:18 AST 30 U/L (15-37) 01/22/22 14:18 ALT 40 U/L (12-78) 01/22/22 14:18 Alkaline Phosphatase 140 U/L (45-117) H 01/22/22 14:18 Triglycerides 214 mg/dL (<150) H 01/23/22 05:43 Cholesterol 147 mg/dL (<200) 01/23/22 05:43 HDL Cholesterol 30 mg/dL (40-60) L 01/23/22 05:43 Cholesterol/HDL Ratio 4.90 01/23/22 05:43 Amylase 23 U/L (25-115) L 01/23/22 05:43 Lipase 39 U/L (73-393) L 01/23/22 05:43 Home Medications: Metformin ER [Glucophage ER*] 2 tab PO BID 09/30/17 Dicyclomine [Bentyl*] 20 mg PO QID 06/11/18 ALPRAZolam [Alprazolam] 1 tab PO DAILY PRN 08/07/20 Ertugliflozin Pidolate [Steglatro] 1 tab PO DAILY 08/07/20 Insulin Degludec [Tresiba Flextouch U-200] 60 unit SQ DAILY 08/07/20 Trazodone [Desyrel*] 1 tab PO BEDTIME 08/07/20 Melatonin 5 mg PO BEDTIME PRN PRN #30 tablet 08/09/20 Pantoprazole [Protonix Tab] 40 mg PO DAILY #30 tab 01/23/22 New Medications: Pantoprazole [Protonix Tab] 40 mg PO DAILY #30 tab Diet: ADA Activity: Ad kiara Followup: Anette Benjamin DO [Primary Care Provider] - 1-2 Weeks
== END 2022-01-23 16:30 | disposition home or self-care (01) ==
LOC: ER 13:43 → ERHOLD 19:24 → 2ND 22:28
PROVIDERS: ADMIT Internal Medicine; ATTEND Internal Medicine
DX: R07.81 Pleurodynia (principal); E11.65 Type 2 diabetes mellitus with hyperglycemia; N39.0 Urinary tract infection, site not specified; R10.13 Epigastric pain; D69.6 Thrombocytopenia, unspecified; E83.42 Hypomagnesemia; R06.02 Shortness of breath; K86.1 Other chronic pancreatitis; K74.60 Unspecified cirrhosis of liver; K76.0 Fatty (change of) liver, not elsewhere classified; K50.90 Crohn's disease, unspecified, without complications; Z20.822 Contact with and (suspected) exposure to COVID-19; Z79.84 Long term (current) use of oral hypoglycemic drugs; Z79.899 Other long term (current) drug therapy; Z90.49 Acquired absence of other specified parts of digestive tract; Z90.710 Acquired absence of both cervix and uterus; Z82.49 Family history of ischemic heart disease and other diseases of the circulatory system; Z83.3 Family history of diabetes mellitus; Z82.3 Family history of stroke
CPT/HCPCS: 96365; 96367; 93005; 85025 ×2; 80048 ×2; 36415; 82140; 82150; 83735 ×2; 84100; 85610; 80061; 82947 ×4; 85379; 80076; 84443; 81003; 83036; 84484; 83690 ×2; 83880; 71275; 74177; 71045; 93970; 76705; 96375; 99285; 87811; Q9967 ×2; J1815 ×2; C9113; J3475; J2270; J1170; J7030 ×4; J2405 ×3; J3490; G0378

== ENCOUNTER 2022-06-07 09:33 | Emergency (ER) | payer OTHER ==
--- OUTSIDE RECORDS SUMMARY | 2022-06-07 09:42 | XMS REPORT | Continuity of Care Document ---
:1970 Author Organization [facility] t Address Formerly [facility] [place] [address] Chang [address] [place] [id number] Care Team Providers Name Role Phone SHARPLESS Primary Care Physician Unavailable Sourav, Na Theresa Attending Clinician Unavailable Yani COVARRUBIAS, Rhonda Lopez Attending Clinician Kadeem Minor MD Attending Clinician Mary Gilliam MD Attending Clinician [phone] MARY GILLIAM Attending Clinician UnavailTrina Lozada MD Attending Clinician TRINA PEREZ Attending Clinician Unavailable TRINA PEREZ Attending Clinician Unavailable Yudith Alonzo MD Attending Clinician Unavailable Elida Arana MD Attending Clinician ELIDA ARANA Attending Clinician Unavailable Luís Grere Attending Clinician JAVY Attending Clinician Unavailable RONALD SOMMER Attending Clinician Unavailable LIZZETTE CORRALES Attending Clinician Unavailable TRINA PEREZ Admitting Clinician Unavailable JAVY Admitting Clinician Unavailable RONALD SOMMER Admitting Clinician Unavailable Payers Payer Name Policy Type Policy Number Effective Date Expiration Date Edi MEMBRENO [id number] 2016 HEALTH CHOICE 00:00:00 HMO [employer] Enrike PCP Ambetter from [id number] 2018 Common Spi rit [facility] 00:00:00 - [facility] Ambetter from [id number] 2018 Common Spi rit [facility] 00:00:00 - [facility] Ambetter from [id number] 2018 Common Spi rit [facility] 00:00:00 - [facility] Problems Condition Condition Condition Status Onset Resolution Last Treating Co mments Source Name Details Category Date Date Treatment Clinician Date Other Other Disease Active [facility] cirrhosis cirrhosis 6-20 [facility] of liver of liver 00:00: Medica l 00 Center Metabolic Metabolic Disease Active [facility] syndrome syndrome [facility] SALINAS SALINAS Disease Active [facility] (nonalcoho (nonalcoho 6-20 [facility] kes lic lic 00:00: Medical steatohepa steatohepa 00 Ce aurelia sharma) kaylynis) Encounter Encounter Disease Active [facility] for [facility]20 [facility] screening screening 00:00: Medi michele for viral for viral 00 Cent er disease disease Screening Screening Disease Active [facility] for 6[facility]20 [facility] malignant malignant 00:00: Medi michele neoplasm neoplasm 00 Center NAFLD NAFLD Disease Active [facility] (nonalcoho (nonalcoho 6-20 [facility] kes lic fatty lic fatty 00:00: Medi michele liver liver 00 Center disease) disease) DX: DX: Diagnosis Active 2020-062021-06-06 Mem oria R10.10=UPP R10.10=UPP 1-10 16:11:00 l ER ER 00:00: [place] ABDOMINAL ABDOMINAL 00 PAIN, PAIN, UNSPECI UNSPECI Active 05/09/2021 [facility] DX: DX: Diagnosis Active 2019-062020-04-11 Mem oria R10.10, R10.10, 0-07 09:14:00 l R14.0 R14.0 00:00: [place] Active 00 04/05/2020 [facility] [place] [id number] Diabetic Problem Comm on polyneurop Spirit athy - [facility] diabetes [facility]ica mellitus Center [id number] Depression Problem Co mmon with Spirit anxiety - [facility] [id number] 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 diabetes - [facility] with [facility] hyperglyce Medica l taj Center [id number] Seasonal Problem Comm on allergies Spirit - [facility] [id number] Fatty Problem Common liver Spirit - [facility] [id number] Irritable Problem Com mon bowel Spirit syndrome - [facility] with St constipati [facility] [id number] Symptomati Problem Co mmon c spider Spirit varicose - [facility] vein [facility] [id number] Panic Problem Common disorder Spirit [episodic - [facility] paroxysmal [facility] anxiety] [facility] [id number] Acute Problem Common stress Spirit reaction - [facility] [id number] Closed Problem Common nondisplac Spirit ed - [facility] fracture [facility] of phalanx [facility] of thumb, Medical unspecifie Center d laterality , unspecifie d phalanx, initial encounter [id number] Gastroesop Problem Co mmon hageal Spirit reflux - CHI disease, esophagiti [facility] s presence Medica l not Center specified [id number] Diverticul Problem Co mmon osis Spirit [facility] [id number] Other Problem Common chronic Spirit gastritis - [facility] without [facility] Psoriatic Psoriatic Problem Com mon arthritis arthritis Spir it - [facility] [id number] Diverticul Problem Co mmon osis of Spirit colon - [facility] [id number] Dysuria Problem Common Spirit - [facility] [id number] Diverticul Problem Co mmon itis Spirit - [facility] 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 - [facility] [id number] Decreased Problem Commo n mobility [facility] 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 - [facility] [id number] Gastro-eso Problem Co mmon phageal Spirit reflux - CHI disease [facility] esophagiti Medica l s Center [id number] Crohn's Problem Common disease of [facility] colon - [facility] [id number] Memory Problem Common deficit [facility] [id number] Thrombocyt Problem Co mmon openia [facility] [id number] Other Problem Common chronic [facility] pain [facility] [id number] Unsteady Problem Commo n gait [facility] [id number] Arthritis Problem Co mmon [id number] of left Spirit hip [facility] Allergies, Adverse Reactions, Alerts Allergy Allergy Status Severity Reaction(s) Onset Inactive Treating Comm ents Source Name Type Date Date Clinician NO KNOWN Allergy Active [facility] Family History Family Member Diagnosis Comments Start Date Stop Date Source Natural brother Diabetes [facility] Natural father Diabetes [facility] Natural mother Diabetes [facility] Natural sister Diabetes [facility] Social History Social Habit Start Date Stop Date Quantity Comments Source History of Common Spirit - Tobacco Use [facility] Sex Assigned At Common Sp cordelia - [facility] Exposure to 2022-05-18 2022-05-28 Not sure [facility] e SARS-CoV-2 00:00:00 08:30:00 of Medicine (event) Alcohol intake 2022-03-08 2022-03-08 Ex-drinker [facility] 00:00:00 00:00:00 (finding) Medical Center History [facility] 2022-02-25 2022-02-25 0 [place] [facility] Physical Activity 00:00:00 00:00:00 of Medi cine DPW History [facility] 2022-02-25 2022-02-25 0 [facility] [place] [facility] ge Physical Activity 00:00:00 00:00:00 of Medi cine MPS Tobacco use and 2017-05-09 2017-05-09 Never used [facility] exposure 00:00:00 00:00:00 Medical Center Smoking Status Start Date Stop Date Source Never smoked tobacco [facility] ege of Medicine Medications Ordered Filled Start Stop Current Ordering Indication Dosage Frequency Signature Comments Components Source Medication Medication Date Date Medication? Clinician (SIG) Name Name metformin 2021-06 Yes 500mg Take 500 [place] [facility] (GLUCOPHAGE 2-05 mg by [place] ) 500 MG 15:43: mouth four of tablet 47 times Medicin daily. e sertraline 2021-06 Yes 50mg Take 50 mg [facility] (ZOLOFT) 25 2-05 by mouth [facility] MG tablet 15:43: daily. of 47 Medicin e gabapentin 2021-06 Yes 300mg Take 300 [facility] (NEURONTIN) 2-05 mg by [place] 300 MG 15:43: mouth 3 of capsule 47 times Medicin daily. e famotidine 2021-06 Yes 40mg Take 40 mg [facility] (PEPCID) 40 2-05 by mouth [facility] MG tablet 15:43: daily. of 47 Medicin e dicyclomine 2021-06 Yes 20mg Take 20 mg [facility] (BENTYL) 20 2-05 by mouth [facility] MG tablet 15:43: every 6 of 47 hours. Medicin e magnesium 2021-06 Yes 400mg Take 1 [facility] oxide 2-05 Tablet by [place] (MAG-OX) 00:00: mouth two of 400 MG 00 times Medicin tablet daily. e linaCLOtide 2021-06 Yes Take 1 [facility] (LINZESS) 2-05 capsule by [facility] 72 MCG CAPS 00:00: mouth of 00 every Medicin evening. e metformin 2021-06- No 2 tablet [place] [facility] (GLUCOPHAGE 08-01 with a [facility] ) 500 MG 18:14: 00:00 meal of tablet 41 :00 Medicin e Cholecalcif 2021-06- No 50ug Take 50 [facility] cee 08-01 mcg by [place] (VITAMIN D) 18:14: 00:00 mouth of 50 MCG 26 :00 daily. Medicin (1999 UT) e CAPS metformin 2021-06 Yes 500mg Take 500 [place] [facility] (GLUCOPHAGE 2-02 mg by [place] ) 500 MG 14:53: mouth four of tablet 49 times Medicin daily. e sertraline 2021-06 Yes 50mg Take 50 mg [facility] (ZOLOFT) 25 2-02 by mouth [facility] MG tablet 14:53: daily. of 49 Medicin e gabapentin 2021-06 Yes 300mg Take 300 [facility] (NEURONTIN) 2-02 mg by [place] 300 MG 14:53: mouth 3 of capsule 49 times Medicin daily. e famotidine 2021-06 Yes 40mg Take 40 mg [facility] (PEPCID) 40 2-02 by mouth [facility] e[facility] MG tablet 14:53: daily. of 49 Medicin e dicyclomine 2021-06 Yes 20mg Take 20 mg [facility] (BENTYL) 20 2-02 by mouth [facility] MG tablet 14:53: every 6 of 49 hours. Medicin e atorvastati 2021-06 Yes [id number] 20mg Take 1 [facility] n (LIPITOR) 2-02 Tablet by Col [facility]ge 20 MG 00:00: mouth of tablet 00 daily. Medicin e atorvastati 2021-06 Yes [id number] 20mg Take 1 [facility] n (LIPITOR) 2-02 Tablet by Col lege 20 MG 00:00: mouth of tablet 00 daily. Medicin e famotidine 2021-06 Yes 40mg Take 40 mg [facility] (PEPCID) 40 1-29 by mouth [facility] MG tablet 08:51: daily. of 40 Medicin e dicyclomine 2021-06 Yes 20mg Take 20 mg [facility] (BENTYL) 20 -29 by mouth [facility] MG tablet 08:51: every 6 of 40 hours. Medicin e metformin 2021-06 Yes 500mg Take 500 [place] [facility] (GLUCOPHAGE 1-29 mg by [place] ) 500 MG 08:51: mouth four of tablet 40 times Medicin daily. e sertraline 2021-06 Yes 50mg Take 50 mg [facility] (ZOLOFT) 25 1-29 by mouth [facility] e[facility] MG tablet 08:51: daily. of 40 Medicin e gabapentin 2021-06 Yes 300mg Take 300 [facility] (NEURONTIN) 1-29 mg by [place] 300 MG 08:51: mouth 3 of capsule 40 times Medicin daily. e Cipro 500 Cipro 500 2021-06- No 1{table BID Cipro 500 MG MG 07-25 t} MG 00:00: 00:00 00 :00 Xanax 0.5MG Xanax 0.5MG 2021-06 No 1{table Xanax 1-10 t} 0.5MG 00:00: 00 Xanax 0.5MG Xanax 0.5MG 2021-06 No 1{table Xanax 1-10 t} 0.5MG 00:00: 00 Xanax 0.5MG Xanax 0.5MG 2021-06 No 1{table Xanax 1-10 t} 0.5MG 00:00: 00 Xanax 0.5MG Xanax 0.5MG 2021-06 No 1{table Xanax 1-10 t} 0.5MG 00:00: 00 Insulin 2021- No Inject [facility] Lispro 03-22 into the College (HUMALOG 14:17: 00:00 skin. of KWIKPEN) 31 :00 Medicin 200 UNIT/ML e SOPN glimepiride 2021- No 4mg Take 4 mg [facility] (AMARYL) 4 03-22 by mouth. Col lege MG tablet 14:12: 00:00 of 23 :00 Medicin e Cholecalcif 0 Yes 50ug Take 50 [place] [facility] cee 9-23 mcg by [place] (VITAMIN D) 13:29: mouth of 50 MCG 15 daily. Medicin (1999) e CAPS Cholecalcif 0 Yes 50ug Take 50 [place] [facility] cee 9-23 mcg by [place] (VITAMIN D) 13:29: mouth of 50 MCG 15 daily. Medicin (1999) e CAPS metformin 0 Yes 500mg Take 500 [place] [facility] (GLUCOPHAGE 9-23 mg by [place] ) 500 MG 13:17: mouth four of tablet 58 times Medicin daily. e sertraline 0 Yes 50mg Take 50 mg [facility] (ZOLOFT) 25 03-22 by mouth [facility] MG tablet 13:17: daily. of 58 Medicin e gabapentin 0 Yes 300mg Take 300 [facility] (NEURONTIN) 9-23 mg by [place] 300 MG 13:17: mouth 3 of capsule 58 times Medicin daily. e famotidine 0 Yes 40mg Take 40 mg [facility] (PEPCID) 40 03-22 by mouth [facility] MG tablet 13:17: daily. of 58 Medicin e dicyclomine 0 Yes 20mg Take 20 mg [facility] (BENTYL) 20 03-22 by mouth [facility] MG tablet 13:17: every 6 of 58 hours. Medicin e Continuous 0 Yes Use as [facility] Blood Gluc 9-23 directed Colle ge Sensor 00:00: to check of (FREESTYLE 00 blood Medicin TAY 2 sugars for e SENSOR) 14 days [facility] Insulin Yes Take up to [facility] Lispro 9-23 15 units College (HUMALOG 00:00: as of KWIKPEN) 00 directed Medicin 200 UNIT/ML prior to e SOPN meals Continuous Yes Use as [facility] Blood Gluc 9-23 directed Colle ge Sensor 00:00: to check of (FREESTYLE 00 blood Medicin TAY 2 sugars for e SENSOR) 14 days [facility] Insulin Yes Take up to [facility] Lispro 9-23 15 units College (HUMALOG 00:00: as of IK) 00 directed Medicin 200 UNIT/ML prior to e SOPN meals Continuous Yes Use as [facility] Blood Gluc 9-23 directed Colle ge Sensor 00:00: to check of (FREESTYLE 00 blood Medicin TAY 2 sugars for e SENSOR) 14 days [facility] Insulin Yes Take up to [facility] Lispro 9-23 15 units College (HUMALOG 00:00: as of KWIKPEN) 00 directed Medicin 200 UNIT/ML prior to e SOPN meals Continuous Yes Use as [facility] Blood Gluc 9-23 directed Colle ge Sensor 00:00: to check of (FREESTYLE 00 blood Medicin TAY 2 sugars for e SENSOR) 14 days [facility] Insulin Yes Take up to [facility] Lispro 9-23 15 units College (HUMALOG 00:00: as of IK) 00 directed Medicin 200 UNIT/ML prior to e SOPN meals metFORMIN 2021-0 Yes 500mg Take [address] (GLUCOPHAGE 9-12 mg by [facility] ) 500 MG 08:25: mouth 2 Medica l tablet 51 (two) Center times daily with breakfast and dinner. glimepiride Yes 4mg Take [address] (AMARYL) 4 -12 by mouth 2 [place] es MG tablet 08:25: (two) Medical 51 times Center daily before meals. empaglifloz Yes 10mg QD Take [address] [facility] 12 by mouth [facility] (JARDIANCE) 08:25: daily. Medi michele 10 mg 51 Center tablet sertraline Yes 50mg Take [address] (ZOLOFT) 50 9-12 by mouth [facility] MG tablet 08:25: Daily Medical 51 (1800) . Center gabapentin Yes 300mg QD Take [address] (NEURONTIN) 9-12 mg by [facility] 300 MG 08:25: mouth Medical capsule 51 every Center evening. insulin Yes 86U QD Inject 86 [facility] degludec 9-12 Units [facility] (TRESIBA 08:25: subcutaneo Med ical U-100 51 usly every Center INSULIN morning. SUBQ) metformin Yes 2 tablet [facility] (GLUCOPHAGE 8-30 with a Colleg e ) 500 MG 11:52: meal of tablet 46 Medicin e glimepiride Yes 4mg Take 4 mg [facility] (AMARYL) 4 8-30 by mouth. [facility] MG tablet 11:52: of 46 Medicin e metformin Yes 2 tablet [facility] (GLUCOPHAGE 8-30 with a Colleg e ) 500 MG 11:52: meal of tablet 46 Medicin e famotidine Yes 40mg Take 40 mg [facility] (PEPCID) 40 8-30 by mouth [facility] MG tablet 11:52: daily. of 46 Medicin e dicyclomine Yes 20mg Take 20 mg [facility] (BENTYL) 20 8-30 by mouth [facility] MG tablet 11:52: every 6 of 46 hours. Medicin e Insulin Yes Inject [facility] Lispro 8-30 into the College (HUMALOG 11:52: skin. of KWIKPEN) 46 Medicin 200 UNIT/ML e SOPN metformin Yes 2 tablet [facility] (GLUCOPHAGE 8-30 with a Colleg e ) 500 MG 11:52: meal of tablet 46 Medicin e metformin Yes 500mg Take 500 [place] [facility] (GLUCOPHAGE 8-30 mg by [place] ) 500 MG 11:34: mouth four of tablet 04 times Medicin daily. e sertraline Yes 50mg Take 50 mg [facility] (ZOLOFT) 25 8-30 by mouth [facility] MG tablet 11:34: daily. of 04 Medicin e gabapentin Yes 300mg Take 300 [facility] (NEURONTIN) 8-30 mg by [place] 300 MG 11:34: mouth 3 of capsule 04 times Medicin daily. e Cholecalcif Yes 50ug Take 50 [place] [facility] cee 8-30 mcg by [place] (VITAMIN D) 11:34: mouth of 50 MCG 04 daily. Medicin (2000 UT) e CAPS alprazolam Yes [facility] (XANAX) 0.5 8-29 College MG tablet 00:00: of Medicin e alprazolam Yes TAKE 1 [facility] (XANAX) 0.5 8-29 TABLET BY Col [facility]ge MG tablet 00:00: MOUTH ONCE of 00 DAILY Medicin NEEDED FOR e ANXIETY alprazolam Yes [facility] (XANAX) 0.5 8-29 College MG tablet 00:00: of Medicin e alprazolam Yes [facility] (XANAX) 0.5 8-29 College MG tablet 00:00: of Medicin e alprazolam Yes TAKE 1 [facility] (XANAX) 0.5 8-29 TABLET BY Col lege MG tablet 00:00: MOUTH ONCE of 00 DAILY Medicin NEEDED FOR e ANXIETY alprazolam Yes [facility] (XANAX) 0.5 8-29 College MG tablet 00:00: of 00 Medicin e alprazolam Yes [facility] (XANAX) 0.5 8-29 College MG tablet 00:00: of 00 Medicin e alprazolam Yes TAKE 1 [facility] (XANAX) 0.5 8-29 TABLET BY Col lege MG tablet 00:00: MOUTH ONCE of 00 DAILY Medicin NEEDED FOR e ANXIETY ALPRAZolam ALPRAZolam No ALPRAZolam 0.5 MG 0.5 MG 8-29 0.5 MG 00:00: 00 ALPRAZolam ALPRAZolam No ALPRAZolam 0.5 MG 0.5 MG 8-29 0.5 MG 00:00: 00 ALPRAZolam ALPRAZolam No ALPRAZolam 0.5 MG 0.5 MG 8-29 0.5 MG 00:00: 00 ALPRAZolam ALPRAZolam 2021-0 No ALPRAZolam 0.5 MG 0.5 MG 8-29 0.5 MG 00:00: 00 ALPRAZolam ALPRAZolam 2021-0 No ALPRAZolam 0.5 MG 0.5 MG 8-29 0.5 MG 00:00: 00 ALPRAZolam ALPRAZolam 2021-0 No ALPRAZolam 0.5 MG 0.5 MG 8-29 0.5 MG 00:00: 00 ALPRAZolam ALPRAZolam 2021-0 No ALPRAZolam 0.5 MG 0.5 MG 8-29 0.5 MG 00:00: 00 ALPRAZolam ALPRAZolam 2021-0 No ALPRAZolam 0.5 MG 0.5 MG 8-29 0.5 MG 00:00: 00 ALPRAZolam ALPRAZolam 2021-0 No ALPRAZolam 0.5 MG 0.5 MG 8-29 0.5 MG 00:00: 00 ALPRAZolam ALPRAZolam 2021-0 No ALPRAZolam 0.5 MG 0.5 MG 8-29 0.5 MG 00:00: 00 ALPRAZolam ALPRAZolam 2021-0 No ALPRAZolam 0.5 MG 0.5 MG 8-29 0.5 MG 00:00: 00 ALPRAZolam ALPRAZolam 2021-0 No ALPRAZolam 0.5 MG 0.5 MG 8-29 0.5 MG 00:00: 00 alprazolam 2021-0 2- No TAKE 1 [facility] (XANAX) 0.5 02-25 TABLET BY Co llege MG tablet 00:00: 00:00 MOUTH ONCE o f 00 :00 DAILY Medicin NEEDED FOR e ANXIETY Pantoprazol Pantoprazol 2021-0 No 1{table QD Pantoprazo e Sodium 40 e Sodium 40 808 t} le Sodium MG MG 00:00: 40 MG 00 Pantoprazol Pantoprazol 2021-0 No 1{table QD Pantoprazo e Sodium 40 e Sodium 40 808 t} le Sodium MG MG 00:00: 40 MG 00 Pantoprazol Pantoprazol 2021-0 No 1{table QD Pantoprazo e Sodium 40 e Sodium 40 8-08 t} le Sodium MG MG 00:00: 40 MG 00 Pantoprazol Pantoprazol 2021-0 No 1{table QD Pantoprazo e Sodium 40 e Sodium 40 8-08 t} le Sodium MG MG 00:00: 40 MG 00 Pantoprazol Pantoprazol 2021-0 No 1{table QD Pantoprazo e Sodium 40 e Sodium 40 8-08 t} le Sodium MG MG 00:00: 40 MG 00 Pantoprazol Pantoprazol 2021-0 No 1{table QD Pantoprazo e Sodium 40 e Sodium 40 8-08 t} le Sodium MG MG 00:00: 40 MG 00 Pantoprazol Pantoprazol 2021-0 No 1{table QD Pantoprazo e Sodium 40 e Sodium 40 8-08 t} le Sodium MG MG 00:00: 40 MG 00 Pantoprazol Pantoprazol 2021-0 No 1{table QD Pantoprazo e Sodium 40 e Sodium 40 8-08 t} le Sodium MG MG 00:00: 40 MG 00 Pantoprazol Pantoprazol 2021-0 No 1{table QD Pantoprazo e Sodium 40 e Sodium 40 8-08 t} le Sodium MG MG 00:00: 40 MG 00 Pantoprazol Pantoprazol 2021-0 No 1{table QD Pantoprazo e Sodium 40 e Sodium 40 8-08 t} le Sodium MG MG 00:00: 40 MG 00 Pantoprazol Pantoprazol 2021-0 No 1{table QD Pantoprazo e Sodium 40 e Sodium 40 8-08 t} le Sodium MG MG 00:00: 40 MG 00 Pantoprazol Pantoprazol 2021-0 No 1{table QD Pantoprazo e Sodium 40 e Sodium 40 8-08 t} le Sodium MG MG 00:00: 40 MG 00 Pantoprazol Pantoprazol 2021-0 No 1{table QD Pantoprazo e Sodium 40 e Sodium 40 8-08 t} le Sodium MG MG 00:00: 40 MG 00 trazodone 2021-0 Yes TAKE 1 [facility] (DESYREL) 8-03 TABLET BY Colle ge 50 MG 00:00: MOUTH ONCE of tablet 00 DAILY AT Medicin BEDTIME e NEEDED trazodone 2021-0 Yes TAKE 1 [facility] (DESYREL) 8-03 TABLET BY Colle ge 50 MG 00:00: MOUTH ONCE of tablet 00 DAILY AT Medicin BEDTIME e NEEDED trazodone 2021-0 Yes TAKE 1 [facility] (DESYREL) 8-03 TABLET BY Colle ge 50 MG 00:00: MOUTH ONCE of tablet 00 DAILY AT Medicin BEDTIME e NEEDED trazodone 2021-0 Yes TAKE 1 [facility] (DESYREL) 8-03 TABLET BY Colle ge 50 MG 00:00: MOUTH ONCE of tablet 00 DAILY AT Medicin BEDTIME e NEEDED trazodone 2021-0 Yes TAKE 1 [facility] (DESYREL) 8-03 TABLET BY Colle ge 50 MG 00:00: MOUTH ONCE of tablet 00 DAILY AT Medicin BEDTIME e NEEDED ALPRAZolam ALPRAZolam 2021-0 No ALPRAZolam 0.5 MG 0.5 MG 7-19 0.5 MG 00:00: 00 ALPRAZolam ALPRAZolam 2021-0 No ALPRAZolam 0.5 MG 0.5 MG 7-19 0.5 MG 00:00: 00 ALPRAZolam ALPRAZolam 2021-0 No ALPRAZolam 0.5 MG 0.5 MG 7-19 0.5 MG 00:00: 00 GOLYTELY 2021-0 Yes TAKE [facility] 236 g 7-08 4000ML BY College suspension 00:00: MOUTH of 00 DIRECTED Medicin ONE e DOSE GOLYTELY 2021-0 Yes TAKE [facility] 236 g 7-08 4000ML BY College suspension 00:00: MOUTH of 00 DIRECTED Medicin ONE e DOSE GOLYTELY 2021-0 Yes TAKE [facility] 236 g 7-08 4000ML BY College suspension 00:00: MOUTH of 00 DIRECTED Medicin ONE e DOSE GOLYTELY 2021-0 2- No TAKE [facility] 236 g 7-08 12-02 4000ML BY College suspension 00:00: 00:00 MOUTH of 00 :00 DIRECTED Medicin ONE e DOSE TRESIBA 2021-0 Yes INJECT 84 [facility] FLEXTOUCH 7-07 UNITS [place] 200 UNIT/ML 00:00: SUBCUTANEO of SOPN 00 USLY ONCE Medicin DAILY, e INCREASE BY 2 UNITS EVERY 3 DAYS UNTIL FASTING BLOOD GLUCOSE LESS THAN 100. MAX DOSE 90 UNITS ONCE A DAY TRESIBA 2021-0 Yes INJECT 84 [facility] FLEXTOUCH 7-07 UNITS College 200 UNIT/ML 00:00: SUBCUTANEO of SOPN 00 USLY ONCE Medicin DAILY, e INCREASE BY 2 UNITS EVERY 3 DAYS UNTIL FASTING BLOOD GLUCOSE LESS THAN 100. MAX DOSE 90 UNITS ONCE A DAY TRESIBA Yes INJECT 84 [facility] FLEXTOUCH 7-07 UNITS [facility] 200 UNIT/ML 00:00: SUBCUTANEO of SOPN 00 USLY ONCE Medicin DAILY, e INCREASE BY 2 UNITS EVERY 3 DAYS UNTIL FASTING BLOOD GLUCOSE LESS THAN 100. MAX DOSE 90 UNITS ONCE A DAY TRESIBA Yes INJECT 84 [facility] FLEXTOUCH 7-07 UNITS [facility] 200 UNIT/ML 00:00: SUBCUTANEO of SOPN 00 USLY ONCE Medicin DAILY, e INCREASE BY 2 UNITS EVERY 3 DAYS UNTIL FASTING BLOOD GLUCOSE LESS THAN 100. MAX DOSE 90 UNITS ONCE A DAY TRESIBA Yes INJECT 84 [facility] FLEXTOUCH 7-07 UNITS [facility] 200 UNIT/ML 00:00: SUBCUTANEO of SOPN 00 USLY ONCE Medicin DAILY, e INCREASE BY 2 UNITS EVERY 3 DAYS UNTIL FASTING BLOOD GLUCOSE LESS THAN 100. MAX DOSE 90 UNITS ONCE A DAY sertraline Yes TAKE 2 [facility] (ZOLOFT) 6-06 TABLETS BY Colle ge 100 MG 00:00: MOUTH ONCE of tablet 00 DAILY Medicin e sertraline Yes TAKE 2 [facility] (ZOLOFT) 6-06 TABLETS BY Colle ge 100 MG 00:00: MOUTH ONCE of tablet 00 DAILY Medicin e sertraline Yes TAKE 2 [facility] (ZOLOFT) 6-06 TABLETS BY Colle ge 100 MG 00:00: MOUTH ONCE of tablet 00 DAILY Medicin e sertraline Yes TAKE 2 [facility] (ZOLOFT) 6-06 TABLETS BY Colle ge 100 MG 00:00: MOUTH ONCE of tablet 00 DAILY Medicin e sertraline Yes TAKE 2 [facility] (ZOLOFT) 6-06 TABLETS BY Colle ge 100 MG 00:00: MOUTH ONCE of tablet 00 DAILY Medicin e ALPRAZolam ALPRAZolam No QD ALPRAZolam 0.5 MG 0.5 MG 6-01 0.5 MG 00:00: 00 ALPRAZolam ALPRAZolam 2022-0 No QD ALPRAZolam 0.5 MG 0.5 MG 6-01 0.5 MG 00:00: 00 ALPRAZolam ALPRAZolam 2021-0 No QD ALPRAZolam 0.5 MG 0.5 MG 6-01 0.5 MG 00:00: 00 ALPRAZolam ALPRAZolam 2021-0 No ALPRAZolam 0.5 MG 0.5 MG 4-26 0.5 MG 00:00: 00 ALPRAZolam ALPRAZolam 2021-0 No ALPRAZolam 0.5 MG 0.5 MG 4-26 0.5 MG 00:00: 00 ALPRAZolam ALPRAZolam 2021-0 No ALPRAZolam 0.5 MG 0.5 MG 4-26 0.5 MG 00:00: 00 ALPRAZolam ALPRAZolam 2021-0 No ALPRAZolam 0.5 MG 0.5 MG 4-26 0.5 MG 00:00: 00 Losartan Losartan 0 No 1{table QD Losartan Potassium-H Potassium-H 4-20 t} Potassium- CTZ 50-12.5 CTZ 50-12.5 00:00: HCTZ MG MG 00 50-12.5 MG Losartan Losartan 2021-0 No 1{table QD Losartan Potassium-H Potassium-H 4-20 t} Potassium- CTZ 50-12.5 CTZ 50-12.5 00:00: HCTZ MG MG 00 50-12.5 MG Losartan Losartan 2021-0 No 1{table QD Losartan Potassium-H Potassium-H 4-20 t} Potassium- CTZ 50-12.5 CTZ 50-12.5 00:00: HCTZ MG MG 00 50-12.5 MG Losartan Losartan 2021-0 No 1{table QD Losartan Potassium-H Potassium-H 4-20 t} Potassium- CTZ 50-12.5 CTZ 50-12.5 00:00: HCTZ MG MG 00 50-12.5 MG Losartan Losartan 2021-0 No 1{table QD Losartan Potassium-H Potassium-H 4-20 t} Potassium- CTZ 50-12.5 CTZ 50-12.5 00:00: HCTZ MG MG 00 50-12.5 MG Losartan Losartan 2021-0 No 1{table QD Losartan Potassium-H Potassium-H 4-20 t} Potassium- CTZ 50-12.5 CTZ 50-12.5 00:00: HCTZ MG MG 00 50-12.5 MG Losartan Losartan 2021-0 No 1{table QD Losartan Potassium-H Potassium-H 4-20 t} Potassium- CTZ 50-12.5 CTZ 50-12.5 00:00: HCTZ MG MG 00 50-12.5 MG Losartan Losartan 2021-0 No 1{table QD Losartan Potassium-H Potassium-H 4-20 t} Potassium- CTZ 50-12.5 CTZ 50-12.5 00:00: HCTZ MG MG 00 50-12.5 MG Losartan Losartan 2021-0 No 1{table QD Losartan Potassium-H Potassium-H 4-20 t} Potassium- CTZ 50-12.5 CTZ 50-12.5 00:00: HCTZ MG MG 00 50-12.5 MG Losartan Losartan 2021-0 No 1{table QD Losartan Potassium-H Potassium-H 4-20 t} Potassium- CTZ 50-12.5 CTZ 50-12.5 00:00: HCTZ MG MG 00 50-12.5 MG Losartan Losartan 2021-0 No 1{table QD Losartan Potassium-H Potassium-H 4-20 t} Potassium- CTZ 50-12.5 CTZ 50-12.5 00:00: HCTZ MG MG 00 50-12.5 MG Losartan Losartan 2021-0 No 1{table QD Losartan Potassium-H Potassium-H 4-20 t} Potassium- CTZ 50-12.5 CTZ 50-12.5 00:00: HCTZ MG MG 00 50-12.5 MG Losartan Losartan 2021-0 No 1{table QD Losartan Potassium-H Potassium-H 4-20 t} Potassium- CTZ 50-12.5 CTZ 50-12.5 00:00: HCTZ MG MG 00 50-12.5 MG Losartan Losartan 2021-0 No 1{table QD Losartan Potassium-H Potassium-H 4-20 t} Potassium- CTZ 50-12.5 CTZ 50-12.5 00:00: HCTZ MG MG 00 50-12.5 MG Losartan Losartan 2021-0 No 1{table QD Losartan Potassium-H Potassium-H 4-20 t} Potassium- CTZ 50-12.5 CTZ 50-12.5 00:00: HCTZ MG MG 00 50-12.5 MG Losartan Losartan 2021-0 No 1{table QD Losartan Potassium-H Potassium-H 4-20 t} Potassium- CTZ 50-12.5 CTZ 50-12.5 00:00: HCTZ MG MG 00 50-12.5 MG Losartan Losartan 2021-0 No 1{table QD Losartan Potassium-H Potassium-H 4-20 t} Potassium- CTZ 50-12.5 CTZ 50-12.5 00:00: HCTZ MG MG 00 50-12.5 MG Losartan Losartan 2021-0 No 1{table QD Losartan Potassium-H Potassium-H 4-20 t} Potassium- CTZ 50-12.5 CTZ 50-12.5 00:00: HCTZ MG MG 00 50-12.5 MG Losartan Losartan 2021-0 No 1{table QD Losartan Potassium-H Potassium-H 4-20 t} Potassium- CTZ 50-12.5 CTZ 50-12.5 00:00: HCTZ MG MG 00 50-12.5 MG Losartan Losartan 2021-0 No 1{table QD Losartan Potassium-H Potassium-H 4-20 t} Potassium- CTZ 50-12.5 CTZ 50-12.5 00:00: HCTZ MG MG 00 50-12.5 MG Losartan Losartan 2021-0 No 1{table QD Losartan Potassium-H Potassium-H 4-20 t} Potassium- CTZ 50-12.5 CTZ 50-12.5 00:00: HCTZ MG MG 00 50-12.5 MG Losartan Losartan 2021-0 No 1{table QD Losartan Potassium-H Potassium-H 4-20 t} Potassium- CTZ 50-12.5 CTZ 50-12.5 00:00: HCTZ MG MG 00 50-12.5 MG Losartan Losartan 2021-0 No 1{table QD Losartan Potassium-H Potassium-H 4-20 t} Potassium- CTZ 50-12.5 CTZ 50-12.5 00:00: HCTZ MG MG 00 50-12.5 MG HumaLOG HumaLOG 2021-0 No HumaLOG KwikPen 200 KwikPen 200 4-12 KwikPen UNIT/ML UNIT/ML 00:00: 200 00 UNIT/ML HumaLOG HumaLOG 2021-0 No HumaLOG KwikPen 200 KwikPen 200 4-12 KwikPen UNIT/ML UNIT/ML 00:00: 200 00 UNIT/ML ALPRAZolam ALPRAZolam 2021-0 No ALPRAZolam 0.5 MG 0.5 MG 3-23 0.5 MG 00:00: 00 ALPRAZolam ALPRAZolam 2021-0 No ALPRAZolam 0.5 MG 0.5 MG 3-23 0.5 MG 00:00: 00 ALPRAZolam ALPRAZolam 2021-0 No ALPRAZolam 0.5 MG 0.5 MG 3-23 0.5 MG 00:00: 00 Zofran 4 MG Zofran 4 MG 2021-0 No 1{table Zofran 4 2-22 t} MG 00:00: 00 Zofran 4 MG Zofran 4 MG 2021-0 No 1{table Zofran 4 2-22 t} MG 00:00: 00 Zofran 4 MG Zofran 4 MG 2021-0 No 1{table Zofran 4 2-22 t} MG 00:00: 00 Zofran 4 MG Zofran 4 MG 2-0 No 1{table Zofran 4 2-22 t} MG 00:00: 00 Zofran 4 MG Zofran 4 MG 2-0 No 1{table Zofran 4 2-22 t} MG 00:00: 00 Zofran 4 MG Zofran 4 MG 2-0 No 1{table Zofran 4 2-22 t} MG 00:00: 00 Zofran 4 MG Zofran 4 MG 2-0 No 1{table Zofran 4 2-22 t} MG 00:00: 00 Zofran 4 MG Zofran 4 MG 2022-0 No 1{table Zofran 4 2-22 t} MG 00:00: 00 Zofran 4 MG Zofran 4 MG 2022-0 No 1{table Zofran 4 2-22 t} MG 00:00: 00 Zofran 4 MG Zofran 4 MG 2022-0 No 1{table Zofran 4 2-22 t} MG 00:00: 00 Zofran 4 MG Zofran 4 MG 2022-0 No 1{table Zofran 4 2-22 t} MG 00:00: 00 Zofran 4 MG Zofran 4 MG 2021-0 No 1{table Zofran 4 2-22 t} MG 00:00: 00 ALPRAZolam ALPRAZolam 2021-0 No ALPRAZolam 0.5 MG 0.5 MG 2-16 0.5 MG 00:00: 00 ALPRAZolam ALPRAZolam 2021-0 No ALPRAZolam 0.5 MG 0.5 MG 2-16 0.5 MG 00:00: 00 ALPRAZolam ALPRAZolam 2021-0 No ALPRAZolam 0.5 MG 0.5 MG 2-16 0.5 MG 00:00: 00 ALPRAZolam ALPRAZolam 2021-0 No ALPRAZolam 0.5 MG 0.5 MG 2-16 0.5 MG 00:00: 00 ALPRAZolam ALPRAZolam 2021-0 No ALPRAZolam 0.5 MG 0.5 MG 2-16 0.5 MG 00:00: 00 predniSONE predniSONE 2020-06- No QD predniSONE 10 MG 10 MG 07-21- 10 MG 00:00: 00:00 00 :00 predniSONE predniSONE 2020-06- No QD predniSONE 10 MG 10 MG 07-2102 10 MG 00:00: 00:00 00 :00 Azithromyci Azithromyci 2020-06- No QD Azithromyc n 250 MG n 250 MG 07-21 11-27 in 250 MG 00:00: 00:00 00 :00 ALPRAZolam ALPRAZolam 2020-06 No ALPRAZolam 0.5 MG 0.5 MG 1-18 0.5 MG 00:00: 00 ALPRAZolam ALPRAZolam 2020-06 No ALPRAZolam 0.5 MG 0.5 MG 1-18 0.5 MG 00:00: 00 FreeStyle FreeStyle 2020-06 No FreeStyle Tay 14 Tay 14 0-07 Tay 14 Day Sensor Day Sensor 00:00: Day Sensor - - 00 - FreeStyle FreeStyle 2020-06 No FreeStyle Tay 2 Tay 2 0-07 Tay 2 Clinchco - Clinchco - 00:00: Clinchco - 00 Neomycin-Po Neomycin-Po 2020-06 No 4{drops BID Neomycin-P lymyxin-HC lymyxin-HC 0-07 _into_a olymyxin-H 3.5-55976-7 3.5-42065-2 00:00: ffected C 00 _ear} 3.5-68111- 1 FreeStyle FreeStyle 2020-06 No FreeStyle Tay 2 Tay 2 0-07 Tay 2 Clinchco - Clinchco - 00:00: Clinchco - 00 FreeStyle FreeStyle 2020-06 No FreeStyle Tay 14 Tay 14 0-07 Tay 14 Day Sensor Day Sensor 00:00: Day Sensor - - 00 - Neomycin-Po Neomycin-Po 2020-06 No 4{drops BID Neomycin-P lymyxin-HC lymyxin-HC 0-07 _into_a olymyxin-H 3.5-43657-8 3.563143-3 00:00: ffected C 00 _ear} 3.5- 1 Neomycin-Po Neomycin-Po 2020-06 No 4{drops BID Neomycin-P lymyxin-HC lymyxin-HC 0-07 _into_a olymyxin-H 3.529800-6 3.509884-8 00:00: ffected C 00 _ear} 3.583915- 1 FreeStyle FreeStyle 2020-06 No FreeStyle Tay 14 Tay 14 0-07 Tay 14 Day Sensor Day Sensor 00:00: Day Sensor - - 00 - FreeStyle FreeStyle 2020-06 No FreeStyle Tay 2 Tay 2 0-07 Tay 2 Clinchco - Clinchco - 00:00: Clinchco - 00 FreeStyle FreeStyle 2020-06 No FreeStyle Tay 14 Tay 14 0-07 Tay 14 Day Sensor Day Sensor 00:00: Day Sensor - - 00 - Neomycin-Po Neomycin-Po 2020-06 No 4{drops BID Neomycin-P lymyxin-HC lymyxin-HC 0-07 _into_a olymyxin-H 3.5-01921-7 3.564998-0 00:00: ffected C 00 _ear} 3.546547- 1 FreeStyle FreeStyle 2020-06 No FreeStyle Tay 2 Tay 2 0-07 Tay 2 Clinchco - Clinchco - 00:00: Clinchco - 00 FreeStyle FreeStyle 2020-06 No FreeStyle Tay 14 Tay 14 0-07 Tay 14 Day Sensor Day Sensor 00:00: Day Sensor - - 00 - Neomycin-Po Neomycin-Po 2020-06 No 4{drops BID Neomycin-P lymyxin-HC lymyxin-HC 0-07 _into_a olymyxin-H 3.5-16079-2 3.520836-4 00:00: ffected C 00 _ear} 3.5-12878- 1 FreeStyle FreeStyle 2020-06 No FreeStyle Tay 2 Tay 2 0-07 Tay 2 Clinchco - Clinchco - 00:00: Clinchco - 00 FreeStyle FreeStyle 2020-06 No FreeStyle Tay 14 Tay 14 0-07 Tay 14 Day Sensor Day Sensor 00:00: Day Sensor - - 00 - Neomycin-Po Neomycin-Po 2020-06 No 4{drops BID Neomycin-P lymyxin-HC lymyxin-HC 0-07 _into_a olymyxin-H 3.563144-6 3.523262-6 00:00: ffected C 00 _ear} 3.5-32704- 1 FreeStyle FreeStyle 2020-06 No FreeStyle Tay 2 Tay 2 0-07 Tay 2 Clinchco - Clinchco - 00:00: Clinchco - 00 FreeStyle FreeStyle 2020-06 No FreeStyle Tay 14 Tay 14 0-07 Tay 14 Day Sensor Day Sensor 00:00: Day Sensor - - 00 - FreeStyle FreeStyle 2020-06 No FreeStyle Tay 2 Tay 2 0-07 Tay 2 Clinchco - Clinchco - 00:00: Clinchco - 00 Neomycin-Po Neomycin-Po 2020-06 No 4{drops BID Neomycin-P lymyxin-HC lymyxin-HC 0-07 _into_a olymyxin-H 3.5-31202-0 3.5-82762-1 00:00: ffected C 00 _ear} 3.5-78538- 1 FreeStyle FreeStyle 2020-06 No FreeStyle Tay 2 Tay 2 0-07 Tay 2 Clinchco - Clinchco - 00:00: Clinchco - 00 FreeStyle FreeStyle 2020-06 No FreeStyle Tay 14 Tay 14 0-07 Tay 14 Day Sensor Day Sensor 00:00: Day Sensor - - 00 - Neomycin-Po Neomycin-Po 2020-06 No 4{drops BID Neomycin-P lymyxin-HC lymyxin-HC 0-07 _into_a olymyxin-H 3.5-34217-9 3.5-64281-4 00:00: ffected C 00 _ear} 3.5-17757- 1 FreeStyle FreeStyle 2020-06 No FreeStyle Tay 2 Tay 2 0-07 Tay 2 Clinchco - Clinchco - 00:00: Clinchco - 00 FreeStyle FreeStyle 2020-06 No FreeStyle Tay 14 Tay 14 0-07 Tay 14 Day Sensor Day Sensor 00:00: Day Sensor - - 00 - Neomycin-Po Neomycin-Po 2020-06 No 4{drops BID Neomycin-P lymyxin-HC lymyxin-HC 0-07 _into_a olymyxin-H 3.5-76438-7 3.5-13661-1 00:00: ffected C 00 _ear} 3.5-32347- 1 FreeStyle FreeStyle 2020-06 No FreeStyle Tay 14 Tay 14 0-07 Tay 14 Day Sensor Day Sensor 00:00: Day Sensor - - 00 - FreeStyle FreeStyle 2020-06 No FreeStyle Tay 2 Tay 2 0-07 Tay 2 Clinchco - Clinchco - 00:00: Clinchco - 00 Neomycin-Po Neomycin-Po 2020-06 No 4{drops BID Neomycin-P lymyxin-HC lymyxin-HC 0-07 _into_a olymyxin-H 3.5-55484-0 3.5-33211-9 00:00: ffected C 00 _ear} 3.5-35717- 1 FreeStyle FreeStyle 2020-06 No FreeStyle Tay 14 Tay 14 0-07 Tay 14 Day Sensor Day Sensor 00:00: Day Sensor - - 00 - FreeStyle FreeStyle 2020-06 No FreeStyle Tay 2 Tay 2 0-07 Tay 2 Clinchco - Clinchco - 00:00: Clinchco - 00 Neomycin-Po Neomycin-Po 2020-06 No 4{drops BID Neomycin-P lymyxin-HC lymyxin-HC 0-07 _into_a olymyxin-H 3.5-79378-8 3.533039-4 00:00: ffected C 00 _ear} 3.5- 1 Neomycin-Po Neomycin-Po 2020-06 No 4{drops BID Neomycin-P lymyxin-HC lymyxin-HC 0-07 _into_a olymyxin-H 3.534631-2 3.596557-4 00:00: ffected C 00 _ear} 3.5- FreeStyle FreeStyle 2020-06 No FreeStyle Tay 2 Tay 2 0-07 Tay 2 Clinchco - Clinchco - 00:00: Clinchco - 00 FreeStyle FreeStyle 2020-06 No FreeStyle Tay 14 Tay 14 0-07 Tay 14 Day Sensor Day Sensor 00:00: Day Sensor - - 00 - Neomycin-Po Neomycin-Po 2020-06 No 4{drops BID Neomycin-P lymyxin-HC lymyxin-HC 0-07 _into_a olymyxin-H 3.-1 3.-1 00:00: ffected C 00 _ear} 3.- FreeStyle FreeStyle 2020-06 No FreeStyle Tay 2 Tay 2 0-07 Tay 2 Clinchco - Clinchco - 00:00: Clinchco - 00 FreeStyle FreeStyle 2020-06 No FreeStyle Tay 14 Tay 14 0-07 Tay 14 Day Sensor Day Sensor 00:00: Day Sensor - - 00 - Neomycin-Po Neomycin-Po 2020-06 No 4{drops BID Neomycin-P lymyxin-HC lymyxin-HC 0-07 _into_a olymyxin-H 3.-1 3.-1 00:00: ffected C 00 _ear} 3.- 1 FreeStyle FreeStyle 2020-06 No FreeStyle Tay 2 Tay 2 0-07 Tay 2 Clinchco - Clinchco - 00:00: Clinchco - 00 FreeStyle FreeStyle 2020-06 No FreeStyle Tay 14 Tay 14 0-07 Tay 14 Day Sensor Day Sensor 00:00: Day Sensor - - 00 - Neomycin-Po Neomycin-Po 2020-06 No 4{drops BID Neomycin-P lymyxin-HC lymyxin-HC 0-07 _into_a olymyxin-H 3.5-85909-0 3.5-86327-3 00:00: ffected C 00 _ear} 3.5-- 1 FreeStyle FreeStyle 2020-06 No FreeStyle Tay 2 Tay 2 0-07 Tay 2 Clinchco - Clinchco - 00:00: Clinchco - 00 FreeStyle FreeStyle 2020-06 No FreeStyle Tay 14 Tay 14 0-07 Tay 14 Day Sensor Day Sensor 00:00: Day Sensor - - 00 - Sertraline Sertraline 2018-06 Yes Na [facility] 2 tablets Common HCl HCl 2-24 [facility]: - [facility] Fluticasone Fluticasone 2018-06 No 1{spray QD Fluticason Propionate Propionate 0-18 _in_eac e 50 MCG/ACT 50 MCG/ACT 00:00: h_nostr Propionate 00 il} 50 MCG/ACT Fluticasone Fluticasone 2018-06 No 1{spray QD Fluticason Propionate Propionate 0-18 _in_eac e 50 MCG/ACT 50 MCG/ACT 00:00: h_nostr Propionate 00 il} 50 MCG/ACT Fluticasone Fluticasone 2018-06 No 1{spray QD Fluticason Propionate Propionate 0-18 _in_eac e 50 MCG/ACT 50 MCG/ACT 00:00: h_nostr Propionate 00 il} 50 MCG/ACT Fluticasone Fluticasone 2018-06 No 1{spray QD Fluticason Propionate Propionate 0-18 _in_eac e 50 MCG/ACT 50 MCG/ACT 00:00: h_nostr Propionate 00 il} 50 MCG/ACT Fluticasone Fluticasone 2018-06 No 1{spray QD Fluticason Propionate Propionate 0-18 _in_eac e 50 MCG/ACT 50 MCG/ACT 00:00: h_nostr Propionate 00 il} 50 MCG/ACT Fluticasone Fluticasone 2018-06 No 1{spray QD Fluticason Propionate Propionate 0-18 _in_eac e 50 MCG/ACT 50 MCG/ACT 00:00: h_nostr Propionate 00 il} 50 MCG/ACT Fluticasone Fluticasone 2018-06 No 1{spray QD Fluticason Propionate Propionate 0-18 _in_eac e 50 MCG/ACT 50 MCG/ACT 00:00: h_nostr Propionate 00 il} 50 MCG/ACT Fluticasone Fluticasone 2018-06 No 1{spray QD Fluticason Propionate Propionate 0-18 _in_eac e 50 MCG/ACT 50 MCG/ACT 00:00: h_nostr Propionate 00 il} 50 MCG/ACT Fluticasone Fluticasone 2018-06 No 1{spray QD Fluticason Propionate Propionate 0-18 _in_eac e 50 MCG/ACT 50 MCG/ACT 00:00: h_nostr Propionate 00 il} 50 MCG/ACT Fluticasone Fluticasone 2018-06 No 1{spray QD Fluticason Propionate Propionate 0-18 _in_eac e 50 MCG/ACT 50 MCG/ACT 00:00: h_nostr Propionate 00 il} 50 MCG/ACT Fluticasone Fluticasone 2018-06 No 1{spray QD Fluticason Propionate Propionate 0-18 _in_eac e 50 MCG/ACT 50 MCG/ACT 00:00: h_nostr Propionate 00 il} 50 MCG/ACT Fluticasone Fluticasone 2018-06 No 1{spray QD Fluticason Propionate Propionate 0-18 _in_eac e 50 MCG/ACT 50 MCG/ACT 00:00: h_nostr Propionate 00 il} 50 MCG/ACT Fluticasone Fluticasone 2018-06 No 1{spray QD Fluticason Propionate Propionate 0-18 _in_eac e 50 MCG/ACT 50 MCG/ACT 00:00: h_nostr Propionate 00 il} 50 MCG/ACT Fluticasone Fluticasone 2018-06 No 1{spray QD Fluticason Propionate Propionate 0-18 _in_eac e 50 MCG/ACT 50 MCG/ACT 00:00: h_nostr Propionate 00 il} 50 MCG/ACT Fluticasone Fluticasone 2018-06 No 1{spray QD Fluticason Propionate Propionate 0-18 _in_eac e 50 MCG/ACT 50 MCG/ACT 00:00: h_nostr Propionate 00 il} 50 MCG/ACT empaglifloz 2016-06 Yes 10mg QD Take [address] [facility] -10 [facility] 10:01: daily. [facility] 10 [facility] tablet sertraline 2016-06 Yes 50mg QD Take [address] [facility] ([place] 50 1-10 [facility] tablet 10:01: daily[facility] empaglifloz 2016-06 Yes 10mg QD Take [address] [facility] 10:01: daily. Medi michele 10 mg 13 [facility] tablet sertraline 2016-06 Yes 50mg QD Take [address] ([place]) 50 1-10 by mouth [facility] tablet 10:01: daily. [facility] 13 Center glimepiride 2016-06 Yes 4mg Take 4 mg [...] Center times daily with breakfast and dinner. Gabapentin Gabapentin No 1{capsu TID Gabapentin 300 MG 300 MG le} 300 MG FreeStyle FreeStyle No FreeStyle Tay 14 Tay 14 Tay 14 Day Sensor Day Sensor Day Sensor - - - Xanax 0.5MG Xanax 0.5MG No 1{table Xanax t} 0.5MG traZODone traZODone No 1{table QD traZODone HCl 50 MG HCl 50 MG t_at_be HCl 50 MG dtime_a s_neede d} Dicyclomine Dicyclomine No Dicyclomin HCl 20 MG HCl 20 MG e HCl 20 MG metFORMIN metFORMIN No 2{table BID metFORMIN HCl 500 MG HCl 500 MG t_with_ HCl 500 MG a_meal} Tobramycin Tobramycin No 1{drop_ 6xD Tobramycin 0.3 % 0.3 % into_af 0.3 % fected_ eye} HumaLOG HumaLOG No HumaLOG KwikPen 200 KwikPen 200 KwikPen UNIT/ML UNIT/ML 200 UNIT/ML Steglatro Steglatro No 1{table QD Steglatro 15 MG 15 MG t} 15 MG NovoFine NovoFine No QD NovoFine Plus 32G X Plus 32G X Plus 32G X 4 MM 4 MM 4 MM Sertraline Sertraline No 2{table QD Sertraline HCl 100 MG HCl 100 MG ts} HCl 100 MG Xanax 0.5MG Xanax 0.5MG No 1{table Xanax t} 0.5MG Famotidine Famotidine No 1{table BID Famotidine 40 MG 40 MG t_at_be 40 MG dtime_a s_neede d} FreeStyle FreeStyle No QD FreeStyle Tay 14 Tay 14 Tay 14 Day Clinchco Day Clinchco Day Clinchco - - - Omeprazole Omeprazole No 1{capsu QD Omeprazole 40 MG 40 MG le} 40 MG traZODone traZODone No traZODone HCl 50 MG HCl 50 MG HCl 50 MG traZODone traZODone No 1{table QD traZODone HCl 50 MG HCl 50 MG t_at_be HCl 50 MG dtime_a s_neede d} FreeStyle FreeStyle No FreeStyle Tay 14 Tay 14 Tay 14 Day Sensor Day Sensor Day Sensor - - - Gabapentin Gabapentin No 1{capsu TID Gabapentin 300 MG 300 MG le} 300 MG Zofran 4 MG Zofran 4 MG No 1{table Zofran 4 t} MG Dicyclomine Dicyclomine No Dicyclomin HCl 20 MG HCl 20 MG e HCl 20 MG metFORMIN metFORMIN No 2{table BID metFORMIN HCl 500 MG HCl 500 MG t_with_ HCl 500 MG a_meal} Tobramycin Tobramycin No 1{drop_ 6xD Tobramycin 0.3 % 0.3 % into_af 0.3 % fected_ eye} HumaLOG HumaLOG No HumaLOG KwikPen 200 KwikPen 200 KwikPen UNIT/ML UNIT/ML 200 UNIT/ML Steglatro Steglatro No 1{table QD Steglatro 15 MG 15 MG t} 15 MG NovoFine NovoFine No QD NovoFine Plus 32G X Plus 32G X Plus 32G X 4 MM 4 MM 4 MM Sertraline Sertraline No 2{table QD Sertraline HCl 100 MG HCl 100 MG ts} HCl 100 MG Xanax 0.5MG Xanax 0.5MG No 1{table Xanax t} 0.5MG Famotidine Famotidine No 1{table BID Famotidine 40 MG 40 MG t_at_be 40 MG dtime_a s_neede d} FreeStyle FreeStyle No QD FreeStyle Tay 14 Tay 14 Tay 14 Day Clinchco Day Clinchco Day Clinchco - - - Omeprazole Omeprazole No 1{capsu QD Omeprazole 40 MG 40 MG le} 40 MG traZODone traZODone No traZODone HCl 50 MG HCl 50 MG HCl 50 MG traZODone traZODone No 1{table QD traZODone HCl 50 MG HCl 50 MG t_at_be HCl 50 MG dtime_a s_neede d} FreeStyle FreeStyle No FreeStyle Tay 14 Tay 14 Tay 14 Day Sensor Day Sensor Day Sensor - - - Gabapentin Gabapentin No 1{capsu TID Gabapentin 300 MG 300 MG le} 300 MG Zofran 4 MG Zofran 4 MG No 1{table Zofran 4 t} MG Dicyclomine Dicyclomine No Dicyclomin HCl 20 MG HCl 20 MG e HCl 20 MG metFORMIN metFORMIN No 2{table BID metFORMIN HCl 500 MG HCl 500 MG t_with_ HCl 500 MG a_meal} Famotidine Famotidine No 1{table BID Famotidine 40 MG 40 MG t_at_be 40 MG dtime_a s_neede d} traZODone traZODone No 1{table QD traZODone HCl 50 MG HCl 50 MG t_at_be HCl 50 MG dtime_a s_neede d} metFORMIN metFORMIN No 2{table BID metFORMIN HCl 500 MG HCl 500 MG t_with_ HCl 500 MG a_meal} Zofran 4 MG Zofran 4 MG No 1{table Zofran 4 t} MG Dicyclomine Dicyclomine No 1{table QID Dicyclomin HCl 20 MG HCl 20 MG t} e HCl 20 MG HumaLOG HumaLOG No HumaLOG KwikPen 200 KwikPen 200 KwikPen UNIT/ML UNIT/ML 200 UNIT/ML Gabapentin Gabapentin No 1{capsu TID Gabapentin 300 MG 300 MG le} 300 MG NovoFine NovoFine No QD NovoFine Plus 32G X Plus 32G X Plus 32G X 4 MM 4 MM 4 MM Sertraline Sertraline No 2{table QD Sertraline HCl 100 MG HCl 100 MG ts} HCl 100 MG Xanax 0.5MG Xanax 0.5MG No 1{table Xanax t} 0.5MG Dicyclomine Dicyclomine No QID Dicyclomin HCl 20 MG HCl 20 MG e HCl 20 MG Tresiba Tresiba No QD Tresiba FlexTouch FlexTouch FlexTouch 200 UNIT/ML 200 UNIT/ML 200 UNIT/ML Omeprazole Omeprazole No 1{capsu QD Omeprazole 40 MG 40 MG le} 40 MG Famotidine Famotidine No 1{table BID Famotidine 40 MG 40 MG t_at_be 40 MG dtime_a s_neede d} traZODone traZODone No 1{table QD traZODone HCl 50 MG HCl 50 MG t_at_be HCl 50 MG dtime_a s_neede d} metFORMIN metFORMIN No 2{table BID metFORMIN HCl 500 MG HCl 500 MG t_with_ HCl 500 MG a_meal} Zofran 4 MG Zofran 4 MG No 1{table Zofran 4 t} MG Dicyclomine Dicyclomine No 1{table QID Dicyclomin HCl 20 MG HCl 20 MG t} e HCl 20 MG HumaLOG HumaLOG No HumaLOG KwikPen 200 KwikPen 200 KwikPen UNIT/ML UNIT/ML 200 UNIT/ML Gabapentin Gabapentin No 1{capsu TID Gabapentin 300 MG 300 MG le} 300 MG NovoFine NovoFine No QD NovoFine Plus 32G X Plus 32G X Plus 32G X 4 MM 4 MM 4 MM Sertraline Sertraline No 2{table QD Sertraline HCl 100 MG HCl 100 MG ts} HCl 100 MG Xanax 0.5MG Xanax 0.5MG No 1{table Xanax t} 0.5MG Dicyclomine Dicyclomine No QID Dicyclomin HCl 20 MG HCl 20 MG e HCl 20 MG Tresiba Tresiba No QD Tresiba FlexTouch FlexTouch FlexTouch 200 UNIT/ML 200 UNIT/ML 200 UNIT/ML Omeprazole Omeprazole No 1{capsu QD Omeprazole 40 MG 40 MG le} 40 MG Famotidine Famotidine No 1{table BID Famotidine 40 MG 40 MG t_at_be 40 MG dtime_a s_neede d} traZODone traZODone No 1{table QD traZODone HCl 50 MG HCl 50 MG t_at_be HCl 50 MG dtime_a s_neede d} metFORMIN metFORMIN No 2{table BID metFORMIN HCl 500 MG HCl 500 MG t_with_ HCl 500 MG a_meal} Zofran 4 MG Zofran 4 MG No 1{table Zofran 4 t} MG Dicyclomine Dicyclomine No 1{table QID Dicyclomin HCl 20 MG HCl 20 MG t} e HCl 20 MG HumaLOG HumaLOG No HumaLOG KwikPen 200 KwikPen 200 KwikPen UNIT/ML UNIT/ML 200 UNIT/ML Gabapentin Gabapentin No 1{capsu TID Gabapentin 300 MG 300 MG le} 300 MG NovoFine NovoFine No QD NovoFine Plus 32G X Plus 32G X Plus 32G X 4 MM 4 MM 4 MM Sertraline Sertraline No 2{table QD Sertraline HCl 100 MG HCl 100 MG ts} HCl 100 MG Xanax 0.5MG Xanax 0.5MG No 1{table Xanax t} 0.5MG Dicyclomine Dicyclomine No QID Dicyclomin HCl 20 MG HCl 20 MG e HCl 20 MG Tresiba Tresiba No QD Tresiba FlexTouch FlexTouch FlexTouch 200 UNIT/ML 200 UNIT/ML 200 UNIT/ML Omeprazole Omeprazole No 1{capsu QD Omeprazole 40 MG 40 MG le} 40 MG Dicyclomine Dicyclomine No QID Dicyclomin HCl 20 MG HCl 20 MG e HCl 20 MG Xanax 0.5MG Xanax 0.5MG No 1{table Xanax t} 0.5MG Famotidine Famotidine No 1{table BID Famotidine 40 MG 40 MG t_at_be 40 MG dtime_a s_neede d} HumaLOG HumaLOG No HumaLOG KwikPen 200 KwikPen 200 KwikPen UNIT/ML UNIT/ML 200 UNIT/ML Zofran 4 MG Zofran 4 MG No 1{table Zofran 4 t} MG metFORMIN metFORMIN No 2{table BID metFORMIN HCl 500 MG HCl 500 MG t_with_ HCl 500 MG a_meal} Sertraline Sertraline No 2{table QD Sertraline HCl 100 MG HCl 100 MG ts} HCl 100 MG Dicyclomine Dicyclomine No 1{table QID Dicyclomin HCl 20 MG HCl 20 MG t} e HCl 20 MG traZODone traZODone No 1{table QD traZODone HCl 50 MG HCl 50 MG t_at_be HCl 50 MG dtime_a s_neede d} NovoFine NovoFine No QD NovoFine Plus 32G X Plus 32G X Plus 32G X 4 MM 4 MM 4 MM Omeprazole Omeprazole No 1{capsu QD Omeprazole 40 MG 40 MG le} 40 MG Gabapentin Gabapentin No 1{capsu TID Gabapentin 300 MG 300 MG le} 300 MG Tresiba Tresiba No QD Tresiba FlexTouch FlexTouch FlexTouch 200 UNIT/ML 200 UNIT/ML 200 UNIT/ML metFORMIN metFORMIN No 2{table BID metFORMIN HCl 500 MG HCl 500 MG t_with_ HCl 500 MG a_meal} Dicyclomine Dicyclomine No QID Dicyclomin HCl 20 MG HCl 20 MG e HCl 20 MG Omeprazole Omeprazole No 1{capsu QD Omeprazole 40 MG 40 MG le} 40 MG Gabapentin Gabapentin No 1{capsu TID Gabapentin 300 MG 300 MG le} 300 MG Dicyclomine Dicyclomine No 1{table QID Dicyclomin HCl 20 MG HCl 20 MG t} e HCl 20 MG Zofran 4 MG Zofran 4 MG No 1{table Zofran 4 t} MG Xanax 0.5MG Xanax 0.5MG No 1{table Xanax t} 0.5MG NovoFine NovoFine No QD NovoFine Plus 32G X Plus 32G X Plus 32G X 4 MM 4 MM 4 MM Famotidine Famotidine No 1{table BID Famotidine 40 MG 40 MG t_at_be 40 MG dtime_a s_neede d} Sertraline Sertraline No 2{table QD Sertraline HCl 100 MG HCl 100 MG ts} HCl 100 MG HumaLOG HumaLOG No HumaLOG KwikPen 200 KwikPen 200 KwikPen UNIT/ML UNIT/ML 200 UNIT/ML traZODone traZODone No 1{table QD traZODone HCl 50 MG HCl 50 MG t_at_be HCl 50 MG dtime_a s_neede d} Tresiba Tresiba No QD Tresiba FlexTouch FlexTouch FlexTouch 200 UNIT/ML 200 UNIT/ML 200 UNIT/ML traZODone traZODone No traZODone HCl 50 MG HCl 50 MG HCl 50 MG Gabapentin Gabapentin No 1{capsu TID Gabapentin 300 MG 300 MG le} 300 MG Dicyclomine Dicyclomine No 1{table QID Dicyclomin HCl 20 MG HCl 20 MG t} e HCl 20 MG Zofran 4 MG Zofran 4 MG No 1{table Zofran 4 t} MG Sertraline Sertraline No 2{table QD Sertraline HCl 100 MG HCl 100 MG ts} HCl 100 MG Xanax 0.5MG Xanax 0.5MG No 1{table Xanax t} 0.5MG Famotidine Famotidine No 1{table BID Famotidine 40 MG 40 MG t_at_be 40 MG dtime_a s_neede d} Tresiba Tresiba No QD Tresiba FlexTouch FlexTouch FlexTouch 200 UNIT/ML 200 UNIT/ML 200 UNIT/ML NovoFine NovoFine No QD NovoFine Plus 32G X Plus 32G X Plus 32G X 4 MM 4 MM 4 MM HumaLOG HumaLOG No HumaLOG KwikPen 200 KwikPen 200 KwikPen UNIT/ML UNIT/ML 200 UNIT/ML Dicyclomine Dicyclomine No QID Dicyclomin HCl 20 MG HCl 20 MG e HCl 20 MG metFORMIN metFORMIN No 2{table BID metFORMIN HCl 500 MG HCl 500 MG t_with_ HCl 500 MG a_meal} Zofran 4 MG Zofran 4 MG No 1{table Zofran 4 t} MG Xanax 0.5MG Xanax 0.5MG No 1{table Xanax t} 0.5MG Dicyclomine Dicyclomine No 1{table QID Dicyclomin HCl 20 MG HCl 20 MG t} e HCl 20 MG traZODone traZODone No traZODone HCl 50 MG HCl 50 MG HCl 50 MG Tresiba Tresiba No QD Tresiba FlexTouch FlexTouch FlexTouch 200 UNIT/ML 200 UNIT/ML 200 UNIT/ML Gabapentin Gabapentin No 1{capsu TID Gabapentin 300 MG 300 MG le} 300 MG metFORMIN metFORMIN No 2{table BID metFORMIN HCl 500 MG HCl 500 MG t_with_ HCl 500 MG a_meal} Sertraline Sertraline No Sertraline HCl 100 MG HCl 100 MG HCl 100 MG Dicyclomine Dicyclomine No QID Dicyclomin HCl 20 MG HCl 20 MG e HCl 20 MG NovoFine NovoFine No QD NovoFine Plus 32G X Plus 32G X Plus 32G X 4 MM 4 MM 4 MM Famotidine Famotidine No 1{table BID Famotidine 40 MG 40 MG t_at_be 40 MG dtime_a s_neede d} traZODone traZODone No 1{table QD traZODone HCl 50 MG HCl 50 MG t_at_be HCl 50 MG dtime_a s_neede d} Zofran 4 MG Zofran 4 MG No 1{table Zofran 4 t} MG Xanax 0.5MG Xanax 0.5MG No 1{table Xanax t} 0.5MG Dicyclomine Dicyclomine No 1{table QID Dicyclomin HCl 20 MG HCl 20 MG t} e HCl 20 MG traZODone traZODone No traZODone HCl 50 MG HCl 50 MG HCl 50 MG Tresiba Tresiba No QD Tresiba FlexTouch FlexTouch FlexTouch 200 UNIT/ML 200 UNIT/ML 200 UNIT/ML Gabapentin Gabapentin No 1{capsu TID Gabapentin 300 MG 300 MG le} 300 MG metFORMIN metFORMIN No 2{table BID metFORMIN HCl 500 MG HCl 500 MG t_with_ HCl 500 MG a_meal} Sertraline Sertraline No Sertraline HCl 100 MG HCl 100 MG HCl 100 MG Dicyclomine Dicyclomine No QID Dicyclomin HCl 20 MG HCl 20 MG e HCl 20 MG NovoFine NovoFine No QD NovoFine Plus 32G X Plus 32G X Plus 32G X 4 MM 4 MM 4 MM Famotidine Famotidine No 1{table BID Famotidine 40 MG 40 MG t_at_be 40 MG dtime_a s_neede d} traZODone traZODone No 1{table QD traZODone HCl 50 MG HCl 50 MG t_at_be HCl 50 MG dtime_a s_neede d} Zofran 4 MG Zofran 4 MG No 1{table Zofran 4 t} MG Xanax 0.5MG Xanax 0.5MG No 1{table Xanax t} 0.5MG Dicyclomine Dicyclomine No 1{table QID Dicyclomin HCl 20 MG HCl 20 MG t} e HCl 20 MG traZODone traZODone No traZODone HCl 50 MG HCl 50 MG HCl 50 MG Tresiba Tresiba No QD Tresiba FlexTouch FlexTouch FlexTouch 200 UNIT/ML 200 UNIT/ML 200 UNIT/ML Gabapentin Gabapentin No 1{capsu TID Gabapentin 300 MG 300 MG le} 300 MG metFORMIN metFORMIN No 2{table BID metFORMIN HCl 500 MG HCl 500 MG t_with_ HCl 500 MG a_meal} Sertraline Sertraline No Sertraline HCl 100 MG HCl 100 MG HCl 100 MG Dicyclomine Dicyclomine No QID Dicyclomin HCl 20 MG HCl 20 MG e HCl 20 MG NovoFine NovoFine No QD NovoFine Plus 32G X Plus 32G X Plus 32G X 4 MM 4 MM 4 MM Famotidine Famotidine No 1{table BID Famotidine 40 MG 40 MG t_at_be 40 MG dtime_a s_neede d} traZODone traZODone No 1{table QD traZODone HCl 50 MG HCl 50 MG t_at_be HCl 50 MG dtime_a s_neede d} Zofran 4 MG Zofran 4 MG No 1{table Zofran 4 t} MG Xanax 0.5MG Xanax 0.5MG No 1{table Xanax t} 0.5MG Dicyclomine Dicyclomine No 1{table QID Dicyclomin HCl 20 MG HCl 20 MG t} e HCl 20 MG traZODone traZODone No traZODone HCl 50 MG HCl 50 MG HCl 50 MG Tresiba Tresiba No QD Tresiba FlexTouch FlexTouch FlexTouch 200 UNIT/ML 200 UNIT/ML 200 UNIT/ML Gabapentin Gabapentin No 1{capsu TID Gabapentin 300 MG 300 MG le} 300 MG metFORMIN metFORMIN No 2{table BID metFORMIN HCl 500 MG HCl 500 MG t_with_ HCl 500 MG a_meal} Sertraline Sertraline No Sertraline HCl 100 MG HCl 100 MG HCl 100 MG Dicyclomine Dicyclomine No QID Dicyclomin HCl 20 MG HCl 20 MG e HCl 20 MG NovoFine NovoFine No QD NovoFine Plus 32G X Plus 32G X Plus 32G X 4 MM 4 MM 4 MM Famotidine Famotidine No 1{table BID Famotidine 40 MG 40 MG t_at_be 40 MG dtime_a s_neede d} traZODone traZODone No 1{table QD traZODone HCl 50 MG HCl 50 MG t_at_be HCl 50 MG dtime_a s_neede d} Zofran 4 MG Zofran 4 MG No 1{table Zofran 4 t} MG Xanax 0.5MG Xanax 0.5MG No 1{table Xanax t} 0.5MG Dicyclomine Dicyclomine No 1{table QID Dicyclomin HCl 20 MG HCl 20 MG t} e HCl 20 MG traZODone traZODone No traZODone HCl 50 MG HCl 50 MG HCl 50 MG Tresiba Tresiba No QD Tresiba FlexTouch FlexTouch FlexTouch 200 UNIT/ML 200 UNIT/ML 200 UNIT/ML Gabapentin Gabapentin No 1{capsu TID Gabapentin 300 MG 300 MG le} 300 MG metFORMIN metFORMIN No 2{table BID metFORMIN HCl 500 MG HCl 500 MG t_with_ HCl 500 MG a_meal} Sertraline Sertraline No Sertraline HCl 100 MG HCl 100 MG HCl 100 MG Dicyclomine Dicyclomine No QID Dicyclomin HCl 20 MG HCl 20 MG e HCl 20 MG NovoFine NovoFine No QD NovoFine Plus 32G X Plus 32G X Plus 32G X 4 MM 4 MM 4 MM Famotidine Famotidine No 1{table BID Famotidine 40 MG 40 MG t_at_be 40 MG dtime_a s_neede d} traZODone traZODone No 1{table QD traZODone HCl 50 MG HCl 50 MG t_at_be HCl 50 MG dtime_a s_neede d} HumaLOG HumaLOG No HumaLOG Sertraline Sertraline No Sertraline HCl 100 MG HCl 100 MG HCl 100 MG Dicyclomine Dicyclomine No QID Dicyclomin HCl 20 MG HCl 20 MG e HCl 20 MG metFORMIN metFORMIN No 2{table BID metFORMIN HCl 500 MG HCl 500 MG t_with_ HCl 500 MG a_meal} Zofran 4 MG Zofran 4 MG No 1{table Zofran 4 t} MG Sertraline Sertraline No 2{table QD Sertraline HCl 100 MG HCl 100 MG ts} HCl 100 MG traZODone traZODone No traZODone HCl 50 MG HCl 50 MG HCl 50 MG Tresiba Tresiba No QD Tresiba FlexTouch FlexTouch FlexTouch 200 UNIT/ML 200 UNIT/ML 200 UNIT/ML Famotidine Famotidine No 1{table BID Famotidine 40 MG 40 MG t_at_be 40 MG dtime_a s_neede d} Gabapentin Gabapentin No 1{capsu TID Gabapentin 300 MG 300 MG le} 300 MG Dicyclomine Dicyclomine No 1{table QID Dicyclomin HCl 20 MG HCl 20 MG t} e HCl 20 MG traZODone traZODone No 1{table QD traZODone HCl 50 MG HCl 50 MG t_at_be HCl 50 MG dtime_a s_neede d} NovoFine NovoFine No QD NovoFine Plus 32G X Plus 32G X Plus 32G X 4 MM 4 MM 4 MM Meloxicam Meloxicam No 1{table QD Meloxicam 7.5 MG 7.5 MG t} 7.5 MG traZODone traZODone No traZODone HCl 50 MG HCl 50 MG HCl 50 MG Zofran 4 MG Zofran 4 MG No 1{table Zofran 4 t} MG Dicyclomine Dicyclomine No QID Dicyclomin HCl 20 MG HCl 20 MG e HCl 20 MG Famotidine Famotidine No 1{table BID Famotidine 40 MG 40 MG t_at_be 40 MG dtime_a s_neede d} Sertraline Sertraline No Sertraline HCl 100 MG HCl 100 MG HCl 100 MG metFORMIN metFORMIN No 2{table BID metFORMIN HCl 500 MG HCl 500 MG t_with_ HCl 500 MG a_meal} Meloxicam Meloxicam No 1{table QD Meloxicam 7.5 MG 7.5 MG t} 7.5 MG Dicyclomine Dicyclomine No 1{table QID Dicyclomin HCl 20 MG HCl 20 MG t} e HCl 20 MG Gabapentin Gabapentin No 1{capsu TID Gabapentin 300 MG 300 MG le} 300 MG NovoFine NovoFine No QD NovoFine Plus 32G X Plus 32G X Plus 32G X 4 MM 4 MM 4 MM traZODone traZODone No 1{table QD traZODone HCl 50 MG HCl 50 MG t_at_be HCl 50 MG dtime_a s_neede d} Tresiba Tresiba No QD Tresiba FlexTouch FlexTouch FlexTouch 200 UNIT/ML 200 UNIT/ML 200 UNIT/ML HumaLOG HumaLOG No HumaLOG Sertraline Sertraline No 2{table QD Sertraline HCl 100 MG HCl 100 MG ts} HCl 100 MG Sertraline Sertraline No Sertraline HCl 100 MG HCl 100 MG HCl 100 MG traZODone traZODone No traZODone HCl 50 MG HCl 50 MG HCl 50 MG Meloxicam Meloxicam No 1{table QD Meloxicam 7.5 MG 7.5 MG t} 7.5 MG Dicyclomine Dicyclomine No QID Dicyclomin HCl 20 MG HCl 20 MG e HCl 20 MG metFORMIN metFORMIN No 2{table BID metFORMIN HCl 500 MG HCl 500 MG t_with_ HCl 500 MG a_meal} Dicyclomine Dicyclomine No 1{table QID Dicyclomin HCl 20 MG HCl 20 MG t} e HCl 20 MG Gabapentin Gabapentin No 1{capsu TID Gabapentin 300 MG 300 MG le} 300 MG NovoFine NovoFine No QD NovoFine Plus 32G X Plus 32G X Plus 32G X 4 MM 4 MM 4 MM HumaLOG HumaLOG No HumaLOG Sertraline Sertraline No 2{table QD Sertraline HCl 100 MG HCl 100 MG ts} HCl 100 MG Famotidine Famotidine No 1{table BID Famotidine 40 MG 40 MG t_at_be 40 MG dtime_a s_neede d} traZODone traZODone No 1{table QD traZODone HCl 50 MG HCl 50 MG t_at_be HCl 50 MG dtime_a s_neede d} Tresiba Tresiba No QD Tresiba FlexTouch FlexTouch FlexTouch 200 UNIT/ML 200 UNIT/ML 200 UNIT/ML Zofran 4 MG Zofran 4 MG No 1{table Zofran 4 t} MG Sertraline Sertraline No Sertraline HCl 100 MG HCl 100 MG HCl 100 MG traZODone traZODone No traZODone HCl 50 MG HCl 50 MG HCl 50 MG Meloxicam Meloxicam No 1{table QD Meloxicam 7.5 MG 7.5 MG t} 7.5 MG Dicyclomine Dicyclomine No QID Dicyclomin HCl 20 MG HCl 20 MG e HCl 20 MG metFORMIN metFORMIN No 2{table BID metFORMIN HCl 500 MG HCl 500 MG t_with_ HCl 500 MG a_meal} Dicyclomine Dicyclomine No 1{table QID Dicyclomin HCl 20 MG HCl 20 MG t} e HCl 20 MG Gabapentin Gabapentin No 1{capsu TID Gabapentin 300 MG 300 MG le} 300 MG NovoFine NovoFine No QD NovoFine Plus 32G X Plus 32G X Plus 32G X 4 MM 4 MM 4 MM HumaLOG HumaLOG No HumaLOG Sertraline Sertraline No 2{table QD Sertraline HCl 100 MG HCl 100 MG ts} HCl 100 MG Famotidine Famotidine No 1{table BID Famotidine 40 MG 40 MG t_at_be 40 MG dtime_a s_neede d} traZODone traZODone No 1{table QD traZODone HCl 50 MG HCl 50 MG t_at_be HCl 50 MG dtime_a s_neede d} Tresiba Tresiba No QD Tresiba FlexTouch FlexTouch FlexTouch 200 UNIT/ML 200 UNIT/ML 200 UNIT/ML Zofran 4 MG Zofran 4 MG No 1{table Zofran 4 t} MG Metformin Metformin Yes Na Haney 2 tablet Common HCl HCl with a Spirit meal [facility] Zofran 4 MG Zofran 4 MG No 1{table Zofran 4 t} MG Xanax 0.5MG Xanax 0.5MG No 1{table Xanax t} 0.5MG Dicyclomine Dicyclomine No 1{table QID Dicyclomin HCl 20 MG HCl 20 MG t} e HCl 20 MG traZODone traZODone No traZODone HCl 50 MG HCl 50 MG HCl 50 MG Tresiba Tresiba No QD Tresiba FlexTouch FlexTouch FlexTouch 200 UNIT/ML 200 UNIT/ML 200 UNIT/ML Gabapentin Gabapentin No 1{capsu TID Gabapentin 300 MG 300 MG le} 300 MG metFORMIN metFORMIN No 2{table BID metFORMIN HCl 500 MG HCl 500 MG t_with_ HCl 500 MG a_meal} Sertraline Sertraline No Sertraline HCl 100 MG HCl 100 MG HCl 100 MG Dicyclomine Dicyclomine No QID Dicyclomin HCl 20 MG HCl 20 MG e HCl 20 MG NovoFine NovoFine No QD NovoFine Plus 32G X Plus 32G X Plus 32G X 4 MM 4 MM 4 MM Famotidine Famotidine No 1{table BID Famotidine 40 MG 40 MG t_at_be 40 MG dtime_a s_neede d} traZODone traZODone No 1{table QD traZODone HCl 50 MG HCl 50 MG t_at_be HCl 50 MG dtime_a s_neede d} Zofran 4 MG Zofran 4 MG No 1{table Zofran 4 t} MG Xanax 0.5MG Xanax 0.5MG No 1{table Xanax t} 0.5MG Dicyclomine Dicyclomine No 1{table QID Dicyclomin HCl 20 MG HCl 20 MG t} e HCl 20 MG traZODone traZODone No traZODone HCl 50 MG HCl 50 MG HCl 50 MG Tresiba Tresiba No QD Tresiba FlexTouch FlexTouch FlexTouch 200 UNIT/ML 200 UNIT/ML 200 UNIT/ML Gabapentin Gabapentin No 1{capsu TID Gabapentin 300 MG 300 MG le} 300 MG metFORMIN metFORMIN No 2{table BID metFORMIN HCl 500 MG HCl 500 MG t_with_ HCl 500 MG a_meal} Sertraline Sertraline No Sertraline HCl 100 MG HCl 100 MG HCl 100 MG Dicyclomine Dicyclomine No QID Dicyclomin HCl 20 MG HCl 20 MG e HCl 20 MG NovoFine NovoFine No QD NovoFine Plus 32G X Plus 32G X Plus 32G X 4 MM 4 MM 4 MM Famotidine Famotidine No 1{table BID Famotidine 40 MG 40 MG t_at_be 40 MG dtime_a s_neede d} traZODone traZODone No 1{table QD traZODone HCl 50 MG HCl 50 MG t_at_be HCl 50 MG dtime_a s_neede d} Zofran 4 MG Zofran 4 MG No 1{table Zofran 4 t} MG Xanax 0.5MG Xanax 0.5MG No 1{table Xanax t} 0.5MG Dicyclomine Dicyclomine No 1{table QID Dicyclomin HCl 20 MG HCl 20 MG t} e HCl 20 MG traZODone traZODone No traZODone HCl 50 MG HCl 50 MG HCl 50 MG Tresiba Tresiba No QD Tresiba FlexTouch FlexTouch FlexTouch 200 UNIT/ML 200 UNIT/ML 200 UNIT/ML Gabapentin Gabapentin No 1{capsu TID Gabapentin 300 MG 300 MG le} 300 MG metFORMIN metFORMIN No 2{table BID metFORMIN HCl 500 MG HCl 500 MG t_with_ HCl 500 MG a_meal} Sertraline Sertraline No Sertraline HCl 100 MG HCl 100 MG HCl 100 MG Dicyclomine Dicyclomine No QID Dicyclomin HCl 20 MG HCl 20 MG e HCl 20 MG NovoFine NovoFine No QD NovoFine Plus 32G X Plus 32G X Plus 32G X 4 MM 4 MM 4 MM Famotidine Famotidine No 1{table BID Famotidine 40 MG 40 MG t_at_be 40 MG dtime_a s_neede d} traZODone traZODone No 1{table QD traZODone HCl 50 MG HCl 50 MG t_at_be HCl 50 MG dtime_a s_neede d} Gabapentin Gabapentin No 1{capsu TID Gabapentin 300 MG 300 MG le} 300 MG Omeprazole Omeprazole No 1{capsu QD Omeprazole 40 MG 40 MG le} 40 MG Sertraline Sertraline No 2{table QD Sertraline HCl 100 MG HCl 100 MG ts} HCl 100 MG Xanax 0.5MG Xanax 0.5MG No 1{table Xanax t} 0.5MG NovoFine NovoFine No QD NovoFine Plus 32G X Plus 32G X Plus 32G X 4 MM 4 MM 4 MM Steglatro Steglatro No 1{table QD Steglatro 15 MG 15 MG t} 15 MG Pantoprazol Pantoprazol No 1{table QD Pantoprazo e Sodium 40 e Sodium 40 t} le Sodium MG MG 40 MG Famotidine Famotidine No 1{table QD Famotidine 40 MG 40 MG t_at_be 40 MG dtime_a s_neede d} Glimepiride Glimepiride No 1{table Glimepirid 4 MG 4 MG t} e 4 MG traZODone traZODone No 1{table QD traZODone HCl 50 MG HCl 50 MG t_at_be HCl 50 MG dtime_a s_neede d} metFORMIN metFORMIN No 2{table BID metFORMIN HCl 500 MG HCl 500 MG t_with_ HCl 500 MG a_meal} Tresiba Tresiba No QD Tresiba FlexTouch FlexTouch FlexTouch 200 UNIT/ML 200 UNIT/ML 200 UNIT/ML FreeStyle FreeStyle No FreeStyle Tay 14 Tay 14 Tay 14 Day Sensor Day Sensor Day Sensor - - - Dicyclomine Dicyclomine No Dicyclomin HCl 20 MG HCl 20 MG e HCl 20 MG Zofran 4 MG Zofran 4 MG No 1{table Zofran 4 t} MG FreeStyle FreeStyle No QD FreeStyle Tay 14 Tay 14 Tay 14 Day Clinchco Day Clinchco Day Clinchco - - - metFORMIN metFORMIN No 2{table BID metFORMIN HCl 500 MG HCl 500 MG t_with_ HCl 500 MG a_meal} traZODone traZODone No 1{table QD traZODone HCl 50 MG HCl 50 MG t_at_be HCl 50 MG dtime_a s_neede d} Glimepiride Glimepiride No 1{table Glimepirid 4 MG 4 MG t} e 4 MG Pantoprazol Pantoprazol No 1{table QD Pantoprazo e Sodium 40 e Sodium 40 t} le Sodium MG MG 40 MG Zofran 4 MG Zofran 4 MG No 1{table Zofran 4 t} MG NovoFine NovoFine No QD NovoFine Plus 32G X Plus 32G X Plus 32G X 4 MM 4 MM 4 MM FreeStyle FreeStyle No FreeStyle Tay 14 Tay 14 Tay 14 Day Sensor Day Sensor Day Sensor - - - Sertraline Sertraline No 2{table QD Sertraline HCl 100 MG HCl 100 MG ts} HCl 100 MG Gabapentin Gabapentin No 1{capsu TID Gabapentin 300 MG 300 MG le} 300 MG Steglatro Steglatro No 1{table QD Steglatro 15 MG 15 MG t} 15 MG FreeStyle FreeStyle No QD FreeStyle Tay 14 Tay 14 Tay 14 Day Clinchco Day Clinchco Day Clinchco - - - Famotidine Famotidine No 1{table QD Famotidine 40 MG 40 MG t_at_be 40 MG dtime_a s_neede d} Dicyclomine Dicyclomine No Dicyclomin HCl 20 MG HCl 20 MG e HCl 20 MG Tresiba Tresiba No QD Tresiba FlexTouch FlexTouch FlexTouch 200 UNIT/ML 200 UNIT/ML 200 UNIT/ML Omeprazole Omeprazole No 1{capsu QD Omeprazole 40 MG 40 MG le} 40 MG metFORMIN metFORMIN No 2{table BID metFORMIN HCl 500 MG HCl 500 MG t_with_ HCl 500 MG a_meal} FreeStyle FreeStyle No FreeStyle Tay 14 Tay 14 Tay 14 Day Sensor Day Sensor Day Sensor - - - Glimepiride Glimepiride No 1{table Glimepirid 4 MG 4 MG t} e 4 MG Sertraline Sertraline No 2{table QD Sertraline HCl 100 MG HCl 100 MG ts} HCl 100 MG NovoFine NovoFine No QD NovoFine Plus 32G X Plus 32G X Plus 32G X 4 MM 4 MM 4 MM Pantoprazol Pantoprazol No 1{table QD Pantoprazo e Sodium 40 e Sodium 40 t} le Sodium MG MG 40 MG Zofran 4 MG Zofran 4 MG No 1{table Zofran 4 t} MG Famotidine Famotidine No 1{table QD Famotidine 40 MG 40 MG t_at_be 40 MG dtime_a s_neede d} Tresiba Tresiba No QD Tresiba FlexTouch FlexTouch FlexTouch 200 UNIT/ML 200 UNIT/ML 200 UNIT/ML Omeprazole Omeprazole No 1{capsu QD Omeprazole 40 MG 40 MG le} 40 MG Dicyclomine Dicyclomine No Dicyclomin HCl 20 MG HCl 20 MG e HCl 20 MG Gabapentin Gabapentin No 1{capsu TID Gabapentin 300 MG 300 MG le} 300 MG Steglatro Steglatro No 1{table QD Steglatro 15 MG 15 MG t} 15 MG FreeStyle FreeStyle No QD FreeStyle Tay 14 Tay 14 Tay 14 Day Clinchco Day Clinchco Day Clinchco - - - traZODone traZODone No 1{table QD traZODone HCl 50 MG HCl 50 MG t_at_be HCl 50 MG dtime_a s_neede d} traZODone traZODone No 1{table QD traZODone HCl 50 MG HCl 50 MG t_at_be HCl 50 MG dtime_a s_neede d} Zofran 4 MG Zofran 4 MG No 1{table Zofran 4 t} MG Omeprazole Omeprazole No 1{capsu QD Omeprazole 40 MG 40 MG le} 40 MG Gabapentin Gabapentin No 1{capsu TID Gabapentin 300 MG 300 MG le} 300 MG Steglatro Steglatro No 1{table QD Steglatro 15 MG 15 MG t} 15 MG Glimepiride Glimepiride No 1{table Glimepirid 4 MG 4 MG t} e 4 MG Tresiba Tresiba No QD Tresiba FlexTouch FlexTouch FlexTouch 200 UNIT/ML 200 UNIT/ML 200 UNIT/ML FreeStyle FreeStyle No FreeStyle Tay 14 Tay 14 Tay 14 Day Sensor Day Sensor Day Sensor - - - Famotidine Famotidine No 1{table BID Famotidine 40 MG 40 MG t_at_be 40 MG dtime_a s_neede d} Sertraline Sertraline No 2{table QD Sertraline HCl 100 MG HCl 100 MG ts} HCl 100 MG NovoFine NovoFine No QD NovoFine Plus 32G X Plus 32G X Plus 32G X 4 MM 4 MM 4 MM FreeStyle FreeStyle No QD FreeStyle Tay 14 Tay 14 Tay 14 Day Clinchco Day Clinchco Day Clinchco - - - Dicyclomine Dicyclomine No QID Dicyclomin HCl 20 MG HCl 20 MG e HCl 20 MG metFORMIN metFORMIN No 2{table BID metFORMIN HCl 500 MG HCl 500 MG t_with_ HCl 500 MG a_meal} traZODone traZODone No 1{table QD traZODone HCl 50 MG HCl 50 MG t_at_be HCl 50 MG dtime_a s_neede d} Zofran 4 MG Zofran 4 MG No 1{table Zofran 4 t} MG Omeprazole Omeprazole No 1{capsu QD Omeprazole 40 MG 40 MG le} 40 MG Gabapentin Gabapentin No 1{capsu TID Gabapentin 300 MG 300 MG le} 300 MG Steglatro Steglatro No 1{table QD Steglatro 15 MG 15 MG t} 15 MG Glimepiride Glimepiride No 1{table Glimepirid 4 MG 4 MG t} e 4 MG Tresiba Tresiba No QD Tresiba FlexTouch FlexTouch FlexTouch 200 UNIT/ML 200 UNIT/ML 200 UNIT/ML FreeStyle FreeStyle No FreeStyle Tay 14 Tay 14 Tay 14 Day Sensor Day Sensor Day Sensor - - - Famotidine Famotidine No 1{table BID Famotidine 40 MG 40 MG t_at_be 40 MG dtime_a s_neede d} Sertraline Sertraline No 2{table QD Sertraline HCl 100 MG HCl 100 MG ts} HCl 100 MG NovoFine NovoFine No QD NovoFine Plus 32G X Plus 32G X Plus 32G X 4 MM 4 MM 4 MM FreeStyle FreeStyle No QD FreeStyle Tay 14 Tay 14 Tay 14 Day Clinchco Day Clinchco Day Clinchco - - - Dicyclomine Dicyclomine No QID Dicyclomin HCl 20 MG HCl 20 MG e HCl 20 MG metFORMIN metFORMIN No 2{table BID metFORMIN HCl 500 MG HCl 500 MG t_with_ HCl 500 MG a_meal} traZODone traZODone No 1{table QD traZODone HCl 50 MG HCl 50 MG t_at_be HCl 50 MG dtime_a s_neede d} Zofran 4 MG Zofran 4 MG No 1{table Zofran 4 t} MG Omeprazole Omeprazole No 1{capsu QD Omeprazole 40 MG 40 MG le} 40 MG Gabapentin Gabapentin No 1{capsu TID Gabapentin 300 MG 300 MG le} 300 MG Steglatro Steglatro No 1{table QD Steglatro 15 MG 15 MG t} 15 MG Glimepiride Glimepiride No 1{table Glimepirid 4 MG 4 MG t} e 4 MG Tresiba Tresiba No QD Tresiba FlexTouch FlexTouch FlexTouch 200 UNIT/ML 200 UNIT/ML 200 UNIT/ML FreeStyle FreeStyle No FreeStyle Tay 14 Tay 14 Tay 14 Day Sensor Day Sensor Day Sensor - - - Famotidine Famotidine No 1{table BID Famotidine 40 MG 40 MG t_at_be 40 MG dtime_a s_neede d} Sertraline Sertraline No 2{table QD Sertraline HCl 100 MG HCl 100 MG ts} HCl 100 MG NovoFine NovoFine No QD NovoFine Plus 32G X Plus 32G X Plus 32G X 4 MM 4 MM 4 MM FreeStyle FreeStyle No QD FreeStyle Tay 14 Tay 14 Tay 14 Day Clinchco Day Clinchco Day Clinchco - - - Dicyclomine Dicyclomine No QID Dicyclomin HCl 20 MG HCl 20 MG e HCl 20 MG metFORMIN metFORMIN No 2{table BID metFORMIN HCl 500 MG HCl 500 MG t_with_ HCl 500 MG a_meal} Zofran 4 MG Zofran 4 MG No 1{table Zofran 4 t} MG metFORMIN metFORMIN No 2{table BID metFORMIN HCl 500 MG HCl 500 MG t_with_ HCl 500 MG a_meal} Omeprazole Omeprazole No 1{capsu QD Omeprazole 40 MG 40 MG le} 40 MG NovoFine NovoFine No QD NovoFine Plus 32G X Plus 32G X Plus 32G X 4 MM 4 MM 4 MM Gabapentin Gabapentin No 1{capsu TID Gabapentin 300 MG 300 MG le} 300 MG Steglatro Steglatro No 1{table QD Steglatro 15 MG 15 MG t} 15 MG Glimepiride Glimepiride No 1{table Glimepirid 4 MG 4 MG t} e 4 MG Tresiba Tresiba No QD Tresiba FlexTouch FlexTouch FlexTouch 200 UNIT/ML 200 UNIT/ML 200 UNIT/ML Famotidine Famotidine No 1{table BID Famotidine 40 MG 40 MG t_at_be 40 MG dtime_a s_neede d} Sertraline Sertraline No 2{table QD Sertraline HCl 100 MG HCl 100 MG ts} HCl 100 MG FreeStyle FreeStyle No QD FreeStyle Tay 14 Tay 14 Tay 14 Day Clinchco Day Clinchco Day Clinchco - - - traZODone traZODone No traZODone HCl 50 MG HCl 50 MG HCl 50 MG FreeStyle FreeStyle No FreeStyle Tay 14 Tay 14 Tay 14 Day Sensor Day Sensor Day Sensor - - - Dicyclomine Dicyclomine No QID Dicyclomin HCl 20 MG HCl 20 MG e HCl 20 MG Zofran 4 MG Zofran 4 MG No 1{table Zofran 4 t} MG Omeprazole Omeprazole No 1{capsu QD Omeprazole 40 MG 40 MG le} 40 MG NovoFine NovoFine No QD NovoFine Plus 32G X Plus 32G X Plus 32G X 4 MM 4 MM 4 MM Steglatro Steglatro No 1{table QD Steglatro 15 MG 15 MG t} 15 MG metFORMIN metFORMIN No 2{table BID metFORMIN HCl 500 MG HCl 500 MG t_with_ HCl 500 MG a_meal} FreeStyle FreeStyle No FreeStyle Tay 14 Tay 14 Tay 14 Day Sensor Day Sensor Day Sensor - - - Dicyclomine Dicyclomine No QID Dicyclomin HCl 20 MG HCl 20 MG e HCl 20 MG Glimepiride Glimepiride No 1{table Glimepirid 4 MG 4 MG t} e 4 MG traZODone traZODone No traZODone HCl 50 MG HCl 50 MG HCl 50 MG Tresiba Tresiba No QD Tresiba FlexTouch FlexTouch FlexTouch 200 UNIT/ML 200 UNIT/ML 200 UNIT/ML Sertraline Sertraline No 2{table QD Sertraline HCl 100 MG HCl 100 MG ts} HCl 100 MG FreeStyle FreeStyle No QD FreeStyle Tay 14 Tay 14 Tay 14 Day Clinchco Day Clinchco Day Clinchco - - - Famotidine Famotidine No 1{table BID Famotidine 40 MG 40 MG t_at_be 40 MG dtime_a s_neede d} Gabapentin Gabapentin No 1{capsu TID Gabapentin 300 MG 300 MG le} 300 MG Zofran 4 MG Zofran 4 MG No 1{table Zofran 4 t} MG Omeprazole Omeprazole No 1{capsu QD Omeprazole 40 MG 40 MG le} 40 MG Glimepiride Glimepiride No 1{table Glimepirid 4 MG 4 MG t} e 4 MG metFORMIN metFORMIN No 2{table BID metFORMIN HCl 500 MG HCl 500 MG t_with_ HCl 500 MG a_meal} Steglatro Steglatro No 1{table QD Steglatro 15 MG 15 MG t} 15 MG Dicyclomine Dicyclomine No QID Dicyclomin HCl 20 MG HCl 20 MG e HCl 20 MG Famotidine Famotidine No 1{table BID Famotidine 40 MG 40 MG t_at_be 40 MG dtime_a s_neede d} traZODone traZODone No traZODone HCl 50 MG HCl 50 MG HCl 50 MG NovoFine NovoFine No QD NovoFine Plus 32G X Plus 32G X Plus 32G X 4 MM 4 MM 4 MM Sertraline Sertraline No 2{table QD Sertraline HCl 100 MG HCl 100 MG ts} HCl 100 MG FreeStyle FreeStyle No QD FreeStyle Tay 14 Tay 14 Tay 14 Day Clinchco Day Clinchco Day Clinchco - - - FreeStyle FreeStyle No FreeStyle Tay 14 Tay 14 Tay 14 Day Sensor Day Sensor Day Sensor - - - Tresiba Tresiba No QD Tresiba FlexTouch FlexTouch FlexTouch 200 UNIT/ML 200 UNIT/ML 200 UNIT/ML Gabapentin Gabapentin No 1{capsu TID Gabapentin 300 MG 300 MG le} 300 MG Sertraline Sertraline No 2{table QD Sertraline HCl 100 MG HCl 100 MG ts} HCl 100 MG Dicyclomine Dicyclomine No QID Dicyclomin HCl 20 MG HCl 20 MG e HCl 20 MG metFORMIN metFORMIN No 2{table BID metFORMIN HCl 500 MG HCl 500 MG t_with_ HCl 500 MG a_meal} Tresiba Tresiba No QD Tresiba FlexTouch FlexTouch FlexTouch 200 UNIT/ML 200 UNIT/ML 200 UNIT/ML traZODone traZODone No traZODone HCl 50 MG HCl 50 MG HCl 50 MG FreeStyle FreeStyle No QD FreeStyle Tay 14 Tay 14 Tay 14 Day Clinchco Day Clinchco Day Cl[place]co - - - Famotidine Famotidine No 1{table BID Famotidine 40 MG 40 MG t_at_be 40 MG dtime_a s_neede d} Zofran 4 MG Zofran 4 MG No 1{table Zofran 4 t} MG traZODone traZODone No 1{table QD traZODone HCl 50 MG HCl 50 MG t_at_be HCl 50 MG dtime_a s_neede d} Gabapentin Gabapentin No 1{capsu TID Gabapentin 300 MG 300 MG le} 300 MG Xanax 0.5MG Xanax 0.5MG No 1{table Xanax t} 0.5MG Steglatro Steglatro No 1{table QD Steglatro 15 MG 15 MG t} 15 MG FreeStyle FreeStyle No FreeStyle Tay 14 Tay 14 Tay 14 Day Sensor Day Sensor Day Sensor - - - Omeprazole Omeprazole No 1{capsu QD Omeprazole 40 MG 40 MG le} 40 MG NovoFine NovoFine No QD NovoFine Plus 32G X Plus 32G X Plus 32G X 4 MM 4 MM 4 MM metFORMIN metFORMIN No 2{table BID metFORMIN HCl 500 MG HCl 500 MG t_with_ HCl 500 MG a_meal} Tresiba Tresiba No QD Tresiba FlexTouch FlexTouch FlexTouch 200 UNIT/ML 200 UNIT/ML 200 UNIT/ML Sertraline Sertraline No 2{table QD Sertraline HCl 100 MG HCl 100 MG ts} HCl 100 MG Dicyclomine Dicyclomine No QID Dicyclomin HCl 20 MG HCl 20 MG e HCl 20 MG Gabapentin Gabapentin No 1{capsu TID Gabapentin 300 MG 300 MG le} 300 MG NovoFine NovoFine No QD NovoFine Plus 32G X Plus 32G X Plus 32G X 4 MM 4 MM 4 MM Steglatro Steglatro No 1{table QD Steglatro 15 MG 15 MG t} 15 MG traZODone traZODone No traZODone HCl 50 MG HCl 50 MG HCl 50 MG FreeStyle FreeStyle No FreeStyle Tay 14 Tay 14 Tay 14 Day Sensor Day Sensor Day Sensor - - - Omeprazole Omeprazole No 1{capsu QD Omeprazole 40 MG 40 MG le} 40 MG traZODone traZODone No 1{table QD traZODone HCl 50 MG HCl 50 MG t_at_be HCl 50 MG dtime_a s_neede d} Zofran 4 MG Zofran 4 MG No 1{table Zofran 4 t} MG Famotidine Famotidine No 1{table BID Famotidine 40 MG 40 MG t_at_be 40 MG dtime_a s_neede d} Xanax 0.5MG Xanax 0.5MG No 1{table Xanax t} 0.5MG FreeStyle FreeStyle No QD FreeStyle Tay 14 Tay 14 Tay 14 Day Clinchco Day Clinchco Day Clinchco - - - Tobramycin Tobramycin No 1{drop_ 6xD Tobramycin 0.3 % 0.3 % into_af 0.3 % fected_ eye} Zofran 4 MG Zofran 4 MG No 1{table Zofran 4 t} MG Tresiba Tresiba No QD Tresiba FlexTouch FlexTouch FlexTouch 200 UNIT/ML 200 UNIT/ML 200 UNIT/ML Steglatro Steglatro No 1{table QD Steglatro 15 MG 15 MG t} 15 MG NovoFine NovoFine No QD NovoFine Plus 32G X Plus 32G X Plus 32G X 4 MM 4 MM 4 MM Sertraline Sertraline No 2{table QD Sertraline HCl 100 MG HCl 100 MG ts} HCl 100 MG HumaLOG HumaLOG No HumaLOG KwikPen 200 KwikPen 200 KwikPen UNIT/ML UNIT/ML 200 UNIT/ML Famotidine Famotidine No 1{table BID Famotidine 40 MG 40 MG t_at_be 40 MG dtime_a s_neede d} FreeStyle FreeStyle No QD FreeStyle Tay 14 Tay 14 Tay 14 Day Clinchco Day Clinchco Day Clinchco - - - Omeprazole Omeprazole No 1{capsu QD Omeprazole 40 MG 40 MG le} 40 MG traZODone traZODone No traZODone HCl 50 MG HCl 50 MG HCl 50 MG Gabapentin Gabapentin No 1{capsu TID Gabapentin 300 MG 300 MG le} 300 MG FreeStyle FreeStyle No FreeStyle Tay 14 Tay 14 Tay 14 Day Sensor Day Sensor Day Sensor - - - Xanax 0.5MG Xanax 0.5MG No 1{table Xanax t} 0.5MG traZODone traZODone No 1{table QD traZODone HCl 50 MG HCl 50 MG t_at_be HCl 50 MG dtime_a s_neede d} Dicyclomine Dicyclomine No Dicyclomin HCl 20 MG HCl 20 MG e HCl 20 MG metFORMIN metFORMIN No 2{table BID metFORMIN HCl 500 MG HCl 500 MG t_with_ HCl 500 MG a_meal} Tobramycin Tobramycin No 1{drop_ 6xD Tobramycin 0.3 % 0.3 % into_af 0.3 % fected_ eye} Zofran 4 MG Zofran 4 MG No 1{table Zofran 4 t} MG Tresiba Tresiba No QD Tresiba FlexTouch FlexTouch FlexTouch 200 UNIT/ML 200 UNIT/ML 200 UNIT/ML Steglatro Steglatro No 1{table QD Steglatro 15 MG 15 MG t} 15 MG NovoFine NovoFine No QD NovoFine Plus 32G X Plus 32G X Plus 32G X 4 MM 4 MM 4 MM Sertraline Sertraline No 2{table QD Sertraline HCl 100 MG HCl 100 MG ts} HCl 100 MG HumaLOG HumaLOG No HumaLOG KwikPen 200 KwikPen 200 KwikPen UNIT/ML UNIT/ML 200 UNIT/ML Famotidine Famotidine No 1{table BID Famotidine 40 MG 40 MG t_at_be 40 MG dtime_a s_neede d} FreeStyle FreeStyle No QD FreeStyle Tay 14 Tay 14 Tay 14 Day Clinchco Day Clinchco Day Clinchco - - - Omeprazole Omeprazole No 1{capsu QD Omeprazole 40 MG 40 MG le} 40 MG traZODone traZODone No traZODone HCl 50 MG HCl 50 MG HCl 50 MG Immunizations Ordered Immunization Filled Immunization Date Status Commen ts Source Name Name Afluria single dose Afluria single dose 2020-06-01 [facility]00 [facility] Afluria single dose Afluria single dose 2020-06-01 Completed [facility] 09:27:00 [facility] Afluria single dose Afluria single dose 2020-06-01 Completed [facility] 09:27:00 [facility] Afluria single dose Afluria single dose 2020-06-01 Completed [facility] 09:27:00 [facility] Afluria single dose Afluria single dose 2020-06-01 Completed [facility] 09:27:00 [facility] Afluria single dose Afluria single dose 2020-06-01 Completed [facility] 09:27:00 [facility] Afluria single dose Afluria single dose 2020-06-01 Completed [facility] 09:[facility]:00 - [facility] Afluria single dose Afluria single dose 2020-06-01 Completed [facility] 09:27:00 [facility] Afluria single dose Afluria single dose 2020-06-01 Completed [facility] 09:27:00 [facility] Afluria single dose Afluria single dose 2020-06-01 Completed [facility] 09:27:00 [facility] Afluria single dose Afluria single dose 2020-06-01 Completed [facility] 09:27:00 [facility] Afluria single dose Afluria single dose 2020-06-01 Completed [facility] 09:27:00 [facility] Afluria single dose Afluria single dose 2020-06-01 Completed [facility] 09:27:00 [facility] Afluria single dose Afluria single dose 2020-06-01 Completed [facility] 09:27:00 [facility] Afluria single dose Afluria single dose 2020-06-01 Completed [facility] 09:27:00 [facility] Afluria single dose Afluria single dose 2020-06-01 Completed [facility] 09:27:00 [facility] Afluria single dose Afluria single dose 2020-06-01 Completed [facility] 09:27:00 [facility] Afluria single dose Afluria single dose 2020-06-01 Completed [facility] 09:27:00 [facility] Afluria single dose Afluria single dose 2020-06-01 Completed [facility] 09:27:00 [facility] Afluria single dose Afluria single dose 2020-06-01 Completed [facility] 09:27:00 [facility] Afluria single dose Afluria single dose 2020-06-01 Completed [facility] 09:27:00 - [facility] Afluria single dose Afluria single dose 2020-06-01 Completed [facility] 09:27:00 [facility] Afluria single dose Afluria single dose 2020-06-01 Completed [facility] 09:27:00 [facility] Afluria single dose Afluria single dose 2020-06-01 Completed [facility] 09:27:00 [facility] Afluria single dose Afluria single dose 2020-06-01 Completed [facility] 09:27:00 - [facility] Afluria single dose Afluria single dose 2020-06-01 Completed [facility] 09:27:00 - [facility] Afluria single dose Afluria single dose 2020-06-01 Completed [facility] 09[facility]27:00 [facility] Afluria single dose Afluria single dose 2020-06-01 Completed [facility] 09:27:00 [facility] Afluria single dose Afluria single dose 2020-06-01 Completed [facility] 09:27:00 [facility] Afluria single dose Afluria single dose 2020-06-01 Completed [facility] 09:27:00 [facility] Afluria single dose Afluria single dose 2020-06-01 Completed [facility] 09:27:00 [facility] Afluria single dose Afluria single dose 2020-06-01 Completed [facility] 09:27:00 [facility] Afluria single dose Afluria single dose 2020-06-01 Completed [facility] 09:27:00 [facility] Flucelvax - Flucelvax - 2019-03-30 [facility]ose [facility]ial 15:35:00 - [facility] Flucelvax - Flucelvax - 2019-03-30 [facility] multidose vial 15:35:00 - [facility] Flucelvax - Flucelvax - 2019-03-30 [facility] multidose vial 15:35:00 - [facility] Flucelvax - Flucelvax - 2019-03-30 [facility] multidose vial 15:35:00 - [facility] Flucelvax - Flucelvax - 2019-03-30 [facility] multidose vial 15:35:00 - [facility] Flucelvax - Flucelvax - 2019-03-30 [facility] multidose vial 15:35:00 - [facility] Flucelvax - Flucelvax - 2019-03-30 [facility] multidose vial 15:35:00 - [facility] Flucelvax - Flucelvax - 2019-03-30 [facility] multidose vial 15:35:00 - [facility] Flucelvax - Flucelvax - 2019-03-30 [facility] multidose vial 15:35:00 - [facility] Flucelvax - Flucelvax - 2019-03-30 [facility] multidose vial 15:35:00 - [facility] Flucelvax - Flucelvax - 2019-03-30 [facility] multidose vial 15:35:00 - [facility] Flucelvax - Flucelvax - 2019-03-30 [facility] multidose vial 15:35:00 - [facility] Flucelvax - Flucelvax - 2019-03-30 [facility] multidose vial 15:35:00 - [facility] Flucelvax - Flucelvax - 2019-03-30 [facility] multidose vial 15:35:00 - [facility] Flucelvax - Flucelvax - 2019-03-30 [facility]ial multidose vial 15:35:00 - [facility] Flucelvax - Flucelvax - 2019-03-30 [facility] multidose vial 15:35:00 - [facility] Flucelvax - Flucelvax - 2019-03-30 [facility] multidose vial 15:35:00 - [facility] Flucelvax - Flucelvax - 2019-03-30 [facility] multidose vial 15:35:00 - [facility] Flucelvax - Flucelvax - 2019-03-30 [facility]ial multidose vial 15:35:00 - [facility] Flucelvax - Flucelvax - 2019-03-30 [facility]pleted [facility]ial multidose vial 15:35:00 - [facility] Flucelvax - Flucelvax - 2019-03-30 [facility]ial multidose vial 15:35:00 - [facility] Flucelvax - Flucelvax - 2019-03-30 [facility]ial multidose vial 15:35:00 - [facility] Flucelvax - Flucelvax - 2019-03-30 Completed [facility]ial multidose vial 15:35:00 - [facility] Flucelvax - Flucelvax - 2019-03-30 [facility]pleted [facility]ial multidose vial 15:35:00 - [facility] Flucelvax - Flucelvax - 2019-03-30 [facility]pleted [facility]ial multidose vial 15:35:00 - [facility] Flucelvax - Flucelvax - 2019-03-30 [facility]pleted [facility]ial multidose vial 15:35:00 - [facility] Flucelvax - Flucelvax - 2019-03-30 [facility]pleted [facility]ose [facility]ial multidose vial 15:35:00 - [facility] Flucelvax - Flucelvax - 2019-03-30 [facility]ose [facility]ial multidose vial 15:35:00 - [facility] Flucelvax - Flucelvax - 2019-03-30 [facility]pleted [facility]ose [facility]ial multidose vial 15:35:00 - [facility] Flucelvax - Flucelvax - 2019-03-30 Completed [facility]ose [facility]ial multidose vial 15:35:00 - [facility] Flucelvax - Flucelvax - 2019-03-30 Completed [facility]ose [facility]ial multidose vial 15:35:00 - [facility] Flucelvax - Flucelvax - 2019-03-30 [facility]pleted [facility]ial multidose vial 15:35:00 - [facility] Flucelvax - Flucelvax - 2019-03-30 [facility]pleted [facility]ose [facility]ial multidose vial 15:35:00 - [facility] Flucelvax - Flucelvax - 2019-03-30 [facility] multidose vial 00:00:00 - [facility] Vital Signs Vital Name Observation Time Observation Value Comments Source Systolic blood 2022-06-03 21:41:00 106 mm[Hg] [facility] pressure Medicine Diastolic blood 2022-06-03 21:41:00 58 mm[Hg] [facility] Medicine Body height 2022-06-03 21:41:00 162.6 cm [facility] Body weight 2022-06-03 21:41:00 72.576 kg [facility] BMI 2022-06-03 21:41:00 27.46 kg/m2 [facility] Systolic blood 2022-05-31 21:08:00 114 mm[Hg] [facility] pressure Medicine Diastolic blood 2022-05-31 21:08:00 65 mm[Hg] [facility] Medicine Heart rate 2022-05-31 21:08:00 89 /min [facility] Body height 2022-05-31 21:08:00 162.6 cm [facility] Body weight 2022-05-31 21:08:00 71.668 kg [facility] BMI 2022-05-31 21:08:00 27.12 kg/m2 [facility] Systolic blood 2022-05-28 14:59:00 111 mm[Hg] [facility] Medicine Diastolic blood 2022-05-28 14:59:00 68 mm[Hg] [facility] Medicine Heart rate 2022-05-28 14:59:00 73 /min [facility] Body temperature 2022-05-28 14:59:00 36.61 [facility] Respiratory rate 2022-05-28 14:59:00 18 /min [facility] Body height 2022-05-28 14:59:00 162.6 cm [facility] Body weight 2022-05-28 14:59:00 71.668 kg [facility] BMI 2022-05-28 14:59:00 27.12 kg/m2 [facility] height 2022-05-09 15:00:00 64 [in_i] [facility] weight 2022-05-09 15:00:00 155.8 [lb_av] Common [facility] temperature 2022-05-09 15:00:00 97.8 [degF] [facility] bmi 2022-05-09 15:00:00 26.74 kg/m2 [facility] oximetry 2022-05-09 15:00:00 97 % [facility] respiratory rate 2022-05-09 15:00:00 15 /min [facility] blood pressure 2022-05-09 15:00:00 109 mm[Hg] [facility] - systolic [facility] blood pressure 2022-05-09 15:00:00 58 mm[Hg] [facility] - diastolic [facility] height 2022-05-06 14:00:00 64 [in_i] [facility] weight 2022-05-06 14:00:00 157 [lb_av] [facility] temperature 2022-05-06 14:00:00 97.2 [degF] [facility] bmi 2022-05-06 14:00:00 26[facility]95 [facility] blood pressure 2022-05-06 14:00:00 112 mm[Hg] [facility] - systolic [facility] blood pressure 2022-05-06 14:00:00 68 mm[Hg] [facility] - diastolic [facility] Systolic blood 2022-03-22 18:27:00 112 mm[Hg] [facility] Medicine Diastolic blood 2022-03-22 18:27:00 65 mm[Hg] [facility] Medicine Heart rate 2022-03-22 18:27:00 71 /min [facility] Body height 2022-03-22 18:27:00 162.6 cm [facility] Body weight 2022-03-22 18:27:00 68.947 kg [facility] BMI 2022-03-22 18:27:00 26.09 kg/m2 [facility] Systolic blood 2022-02-26 16:41:00 125 mm[Hg] [facility] pressure Medicine Diastolic blood 2022-02-26 16:41:00 72 mm[Hg] [facility] Medicine Heart rate 2022-02-26 16:41:00 83 /min [facility] Body temperature 2022-02-26 16:41:00 36.78 [facility] Respiratory rate 2022-02-26 16:41:00 18 /min [facility] Body height 2022-02-26 16:41:00 162.6 cm [facility] Body weight 2022-02-26 16:41:00 70.67 kg [facility] BMI 2022-02-26 16:41:00 26.74 kg/m2 [facility] height 2022-02-26 16:40:00 64 [in_i] [facility] weight 2022-02-26 16:40:00 155 [lb_av] [facility] bmi 2022-02-26 16:40:00 26.6 kg/m2 [facility] height 2021-12-06 11:40:00 64 [in_i] [facility] weight 2021-12-06 11:40:00 154 [lb_av] [facility] temperature 2021-12-06 11:40:00 97.8 [degF] [facility] bmi 2021-12-06 11:40:00 26.43 kg/m2 [facility] oximetry 2021-12-06 11:40:00 98 % [facility] respiratory rate 2021-12-06 11:40:00 20 /min [facility] blood pressure 2021-12-06 11:40:00 122 mm[Hg] [facility] - systolic [facility] blood pressure 2021-12-06 11:40:00 59 mm[Hg] [facility] - diastolic [facility] height 2021-11-19 10:00:00 64 [in_i] [facility] weight 2021-11-19 10:00:00 152.4 [lb_av] [facility] temperature 2021-11-19 10:00:00 97.7 [degF] [facility] bmi 2021-11-19 10:00:00 26.16 kg/m2 [facility] oximetry 2021-11-19 10:00:00 97 % [facility] respiratory rate 2021-11-19 10:00:00 16 /min [facility] blood pressure 2021-11-19 10:00:00 118 mm[Hg] [facility] - systolic [facility] blood pressure 2021-11-19 10:00:00 57 mm[Hg] [facility] - diastolic [facility] height 2021-10-09 16:00:00 64 [in_i] [facility] weight 2021-10-09 16:00:00 152 [lb_av] [facility] temperature 2021-10-09 16:00:00 97.7 [degF] [facility] bmi 2021-10-09 16:00:00 26.09 kg/m2 [facility] oximetry 2021-10-09 16:00:00 98 % [facility] respiratory rate 2021-10-09 16:00:00 18 /min [facility] blood pressure 2021-10-09 16:00:00 129 mm[Hg] [facility] - systolic [facility] blood pressure 2021-10-09 16:00:00 60 mm[Hg] [facility] - diastolic [facility] height 2021-09-10 08:40:00 64 [in_i] [facility] weight 2021-09-10 08:40:00 148.8 [lb_av] [facility] temperature 2021-09-10 08:40:00 97.7 [degF] [facility] bmi 2021-09-10 08:40:00 25.54 kg/m2 [facility] oximetry 2021-09-10 08:40:00 100 % [facility] respiratory rate 2021-09-10 08:40:00 16 /min [facility] blood pressure 2021-09-10 08:40:00 123 mm[Hg] [facility] - systolic [facility] blood pressure 2021-09-10 08:40:00 58 mm[Hg] [facility] - diastolic [facility] height 2021-08-21 11:40:00 64 [in_i] [facility] weight 2021-08-21 11:40:00 149.4 [lb_av] Common [facility] temperature 2021-08-21 11:40:00 97.6 [degF] [facility] bmi 2021-08-21 11:40:00 25.64 kg/m2 [facility] oximetry 2021-08-21 11:40:00 99 % [facility] respiratory rate 2021-08-21 11:40:00 15 /min [facility] blood pressure 2021-08-21 11:40:00 121 mm[Hg] [facility] - systolic [facility] blood pressure 2021-08-21 11:40:00 57 mm[Hg] [facility] - diastolic [facility] height 2021-04-05 16:20:00 64 [in_i] [facility] weight 2021-04-05 16:20:00 157 [lb_av] [facility] temperature 2021-04-05 16:20:00 97.6 [degF] [facility] bmi 2021-04-05 16:20:00 26.95 kg/m2 [facility] oximetry 2021-04-05 16:20:00 98 % [facility] respiratory rate 2021-04-05 16:20:00 21 /min [facility] blood pressure 2021-04-05 16:20:00 120 mm[Hg] [facility] - systolic [facility] blood pressure 2021-04-05 16:20:00 58 mm[Hg] Common [facility] - diastolic [facility] Systolic blood 2022-03-08 10:20:00 110 mm[Hg] [facility] Diastolic blood 2022-03-08 10:20:00 61 mm[Hg] [facility] Heart rate 2022-03-08 10:20:00 70 /min [facility] Respiratory rate 2022-03-08 10:20:00 12 /min [facility] Oxygen saturation in 2022-03-08 10:20:00 95 /min [facility] Arterial blood by Medical Ce nter Pulse oximetry Body temperature 2022-03-08 09:51:00 36.5 Jeannine [facility] Body height 2022-03-08 09:19:00 162.6 cm [facility] Body weight 2022-03-08 09:19:00 75.751 kg [facility] BMI 2022-03-08 09:19:00 28.67 kg/m2 [facility] Procedures Procedure Date / Time Performing Source Performed Clinician POCT HEMOGLOBIN A1C 2022-03-22 Mily, Kadeem Mcneil ge 18:42:00 of Medicine REPORT OF PROCEDURE - ENDOSCOPY 2022-03-08 Trina Perez [facility] URL 09:57:00 [facility] REPORT OF PROCEDURE - ENDOSCOPY 2022-03-08 Trina Perez [facility] URL 09:54:01 [facility] TISSUE EXAM 2022-03-[address] [facility] 09:24:00 [facility] POCT-GLUCOSE METER 2022-03-[address] [facility] 09:14:00 [facility] ESOPHAGOGASTRODUODENOSCOPY 2022-03-08 [facility] 09:[facility]00 [facility] COLONOSCOPY, WITH POLYPECTOMY 2022-03-[address] [facility] 09:13:00 [facility] NM GASTRIC EMPTYING STUDY 4 HOUR 2022-02-14 Elida Arana [facility] PROTOCOL 15:42:00 [facility] HEPATITIS A ANTIBODY, IGG 2022-01-10 Ivet Barboza [facility] 13[facility]59:00 [facility] Center BASIC METABOLIC PANEL 2022-01-[address] [facility] 13:59:00 [facility] HEPATIC FUNCTION PANEL 2022-01-[address] [facility] 13:59:00 [facility] CBC W/PLT COUNT & AUTO 2022-01-[address] [facility] DIFFERENTIAL 13:59:00 [facility] PROTHROMBIN TIME/INR 2022-01-[address] [facility] [facility] 13:59:00 [facility] LACTIC ACID, VENOUS 2022-01-10 Aracely Rise J[address] [facility] 13:59:00 [facility] CBC W/PLT COUNT & AUTO 2022-01-[address] [facility] DIFFERENTIAL 13:59:00 [facility] MR ABDOMEN WITH & WITHOUT IV 2022-01-03 Percy, Tesfai [facility] CONTRAST 08:59:00 [facility] COMPREHENSIVE METABOLIC PANEL 2021-12-17 Percy, [facility]ai [facility] 15:44:00 [facility] BILIRUBIN, DIRECT 2021-12-17 Percy, Tesfai [facility] 15:44:00 [facility] CBC W/PLT COUNT & AUTO 2021-12-17 Percy, [facility] DIFFERENTIAL 15:44:00 [facility] PROTHROMBIN TIME/INR 2021-12-17 [facility] 15:44:00 [facility] HEPATITIS B SURFACE ANTIGEN 2021-12-17 Percy, Tesfai [facility] 15:44:00 [facility] HEPATITIS B SURFACE ANTIBODY 2021-12-17 Percy, Tesfai [facility] 15:44:00 [facility] HEPATITIS B CORE ANTIBODY, TOTAL 2021-12-17 Percy, Tesfai [facility] 15:44:00 [facility] HEPATITIS C ANTIBODY 2021-12-17 Percy[facility] 15:44:00 [facility] IRON, TIBC, % SAT. (WITHOUT 2021-12-17 Percy, Tesfai [facility] FERRITIN) 15:44:00 [facility] FERRITIN 2021-12-17 Percy, Tesfai [facility] 15:44:00 [facility] [id number], SERUM 2021-12-17 Percy, Tesfai [facility] 15:44:00 [facility] CERULOPLASMIN 2021-12-17 Percy, Tesfai [facility] 15:44:00 [facility] ANTI-NUCLEAR ANTIBODY (SAMIA) 2021-12-17 [address]ís [address] [facility] 15:44:00 [facility] ACTIN (SMOOTH MUSCLE) ANTIBODY, 2021-12-[address] [facility] IGG 15:44:00 [facility] MITOCHONDRIA M2 ANTIBODY (IGG) 2021-12-[address] [facility] 15:44:00 [facility] ALPHA FETOPROTEIN (AFP), TUMOR 2021-12-17 [address] [facility] MARKER 15:44:00 [facility] LACTIC ACID, VENOUS 2021-12-[address] [facility] 15:44:00 [facility] CBC W/PLT COUNT & AUTO 2021-12-[address] [facility] DIFFERENTIAL 15:44:00 [facility] Plan of Care Planned Activity Planned Date Details Comments Source Future Scheduled 2032-03-08 Screening for malignant [facility] Test 00:00:00 neoplasm of colon Medical Ce nter (procedure) [code = 720645452] Future Scheduled 2032-03-08 Screening for malignant [facility] Test 00:00:00 neoplasm of colon Medical Ce nter (procedure) [code = 846074404] Future Scheduled 2024-03-05 Screening for malignant [facility] Test 00:00:00 neoplasm of breast Medical C enter (procedure) [code = 047569303] Future Scheduled 2023-03-[address] [facility] Test 00:00:00 [facility] Screening (12+) [code = Tobacco Cessation Counseling and Screening (12+)] Future Scheduled 2022-06-03 Pneumococcal Combined [facility] Test 15:43:24 (1 - PCV) [code = of Medicin e Pneumococcal Combined (1 - PCV)] Future Scheduled 2022-06-03 ANNUAL DIABETIC [facility] Test 15:43:24 RETINOPATHY SCREENING of Med icine [code = ANNUAL DIABETIC RETINOPATHY SCREENING] Future Scheduled 2022-06-03 BMI FOLLOW UP PLAN [facility] [place] Test 15:43:24 [code = BMI FOLLOW UP of Med icine PLAN] Future Scheduled 2022-06-03 Human immunodeficiency B [facility] Test 15:43:24 virus screening of Medicine (procedure) [code = 194035421] Future Scheduled 2022-06-03 ZOSTER VACCINE (1 of 2) [facility] Test 15:43:24 [code = ZOSTER VACCINE of Me dicine (1 of 2)] Future Scheduled 2022-06-03 Screening for malignant [facility] Test 15:43:24 neoplasm of cervix of Medici ne (procedure) [code = 518140296] Future Scheduled 2022-06-03 TETANUS SHOT (ADULT) [facility] Test 15:43:24 [code = TETANUS SHOT of Medi cine (ADULT)] Future Scheduled 2022-06-03 COVID-19 Vaccine (4 - [facility] Test 15:43:24 Booster for Pfizer of Medici ne series) [code = COVID-19 Vaccine (4 - Booster for Pfizer series)] Future Scheduled 2022-06-03 FLU VACCINE > 6 MONTHS B [facility] Test 15:43:24 [code = FLU VACCINE > 6 of M edicine MONTHS] Future Scheduled 2022-06-03 Hemoglobin A1c [facility] Test 15:43:24 measurement (procedure) of M edicine [code = [id number]] Future Scheduled 2022-06-03 Screening for malignant [facility] Test 15:43:24 neoplasm of breast of Medici ne (procedure) [code = 540684213] Future Scheduled 2022-06-03 Diabetic foot [facility] Col [facility]ge Test 15:43:24 examination of Medicine (regime/therapy) [code = 350148764] Future Scheduled 2022-06-03 Screening for malignant [facility] Test 15:43:24 neoplasm of colon of Medicin e (procedure) [code = 014176814] Future Scheduled 2022-05-31 Pneumococcal Combined [facility] Test 16:18:29 (1 - PCV) [code = of Medicin e Pneumococcal Combined (1 - PCV)] Future Scheduled 2022-05-31 Diabetic foot [facility] Col lege Test 16:18:29 examination of Medicine (regime/therapy) [code = 374579238] Future Scheduled 2022-05-31 ANNUAL DIABETIC [facility] C ollege Test 16:18:29 RETINOPATHY SCREENING of Med icine [code = ANNUAL DIABETIC RETINOPATHY SCREENING] Future Scheduled 2022-05-31 BMI FOLLOW UP PLAN [facility] [place] Test 16:18:29 [code = BMI FOLLOW UP of Med icine PLAN] Future Scheduled 2022-05-31 Human immunodeficiency [facility] Test 16:18:29 virus screening of Medicine (procedure) [code = 209394335] Future Scheduled 2022-05-31 ZOSTER VACCINE (1 of 2) [facility] Test 16:18:29 [code = ZOSTER VACCINE of Me dicine (1 of 2)] Future Scheduled 2022-05-31 Screening for malignant [facility] Test 16:18:29 neoplasm of cervix of Medici ne (procedure) [code = 374939292] Future Scheduled 2022-05-31 TETANUS SHOT (ADULT) [facility] Test 16:18:29 [code = TETANUS SHOT of Medi cine (ADULT)] Future Scheduled 2022-05-31 COVID-19 Vaccine (4 - [facility] Test 16:18:29 Booster for Pfizer of Medici ne series) [code = COVID-19 Vaccine (4 - Booster for Pfizer series)] Future Scheduled 2022-05-31 FLU VACCINE > 6 MONTHS [facility] Test 16:18:29 [code = FLU VACCINE > 6 of M edicine MONTHS] Future Scheduled 2022-05-31 Hemoglobin A1c [facility] Co lleg Test 16:18:29 measurement (procedure) of M edicine [code = 34223998] Future Scheduled 2022-05-31 Screening for malignant [facility] Test 16:18:29 neoplasm of breast of Medici ne (procedure) [code = 382153047] Future Scheduled 2022-05-31 Screening for malignant [facility] Test 16:18:29 neoplasm of colon of Medicin e (procedure) [code = 547655284] Future Scheduled 2022-05-28 Pneumococcal Combined [facility] Test 08:59:19 (1 - PCV) [code = of Medicin e Pneumococcal Combined (1 - PCV)] Future Scheduled 2022-05-28 Diabetic foot [facility] Col lege Test 08:59:19 examination of Medicine (regime/therapy) [code = 666493152] Future Scheduled 2022-05-28 ANNUAL DIABETIC [facility] C ollege Test 08:59:19 RETINOPATHY SCREENING of Med icine [code = ANNUAL DIABETIC RETINOPATHY SCREENING] Future Scheduled 2022-05-28 BMI FOLLOW UP PLAN [facility] Test 08:59:19 [code = BMI FOLLOW UP of Med icine PLAN] Future Scheduled 2022-05-28 Human immunodeficiency [facility] Test 08:59:19 virus screening of Medicine (procedure) [code = 992769845] Future Scheduled 2022-05-28 ZOSTER VACCINE (1 of 2) [facility] Test 08:59:19 [code = ZOSTER VACCINE of Me dicine (1 of 2)] Future Scheduled 2022-05-28 Screening for malignant [facility] Test 08:59:19 neoplasm of cervix of Medici ne (procedure) [code = 284518382] Future Scheduled 2022-05-28 TETANUS SHOT (ADULT) [facility] Test 08:59:19 [code = TETANUS SHOT of Medi cine (ADULT)] Future Scheduled 2022-05-28 COVID-19 Vaccine (3 - [facility] Test 08:59:19 Booster for Pfizer of Medici ne series) [code = COVID-19 Vaccine (3 - Booster for Pfizer series)] Future Scheduled 2022-05-28 FLU VACCINE > 6 MONTHS [facility] Test 08:59:19 [code = FLU VACCINE > 6 of M edicine MONTHS] Future Scheduled 2022-05-28 Hemoglobin A1c [facility] Test 08:59:19 measurement (procedure) of M edicine [code = 17436566] Future Scheduled 2022-05-28 Screening for malignant [facility] Test 08:59:19 neoplasm of breast of Medici ne (procedure) [code = 995482538] Future Scheduled 2022-05-28 Screening for malignant [facility] Test 08:59:19 neoplasm of colon of Medicin e (procedure) [code = 591745297] Future Scheduled 2022-03-29 MICROALBUMIN/CREAT Expected: [employer] Test 00:00:00 URINE RATIO [code = 03/29/2022 of Medic ine 9318-7] (Approximate), Expires: 09/19/2022 Future Scheduled 2022-03-29 LIPID PANEL [code = Expected: [place] Test 00:00:00 12384-4] 03/29/2022 of Medicine (Approximate), Expires: 09/19/2022 Future Scheduled 2022-03-24 Pneumococcal Combined [facility] Test 13:41:11 (1 - PCV) [code = of Medicin e Pneumococcal Combined (1 - PCV)] Future Scheduled 2022-03-24 Diabetic foot [facility] Col lege Test 13:41:11 examination of Medicine (regime/therapy) [code = 903202764] Future Scheduled 2022-03-24 ANNUAL DIABETIC [facility] C [facility]lege Test 13:41:11 RETINOPATHY SCREENING of Med icine [code = ANNUAL DIABETIC RETINOPATHY SCREENING] Future Scheduled 2022-03-24 BMI FOLLOW UP PLAN [facility] Test 13:41:11 [code = BMI FOLLOW UP of Med icine PLAN] Future Scheduled 2022-03-24 Human immunodeficiency [facility] Test 13:41:11 virus screening of Medicine (procedure) [code = 488714785] Future Scheduled 2022-03-24 Screening for malignant [facility] Test 13:41:11 neoplasm of cervix of Medici ne (procedure) [code = 539085921] Future Scheduled 2022-03-24 TETANUS SHOT (ADULT) [facility] Test 13:41:11 [code = TETANUS SHOT of Medi cine (ADULT)] Future Scheduled 2022-03-24 ZOSTER VACCINE (1 of 2) [facility] Test 13:41:11 [code = ZOSTER VACCINE of Pr dicine (1 of 2)] Future Scheduled 2022-03-24 COVID-19 Vaccine (3 - [facility] Test 13:41:11 Booster for Pfizer of Medici ne series) [code = COVID-19 Vaccine (3 - Booster for Pfizer series)] Future Scheduled 2022-03-24 FLU VACCINE > 6 MONTHS [facility] Test 13:41:11 [code = FLU VACCINE > 6 of M edicine MONTHS] Future Scheduled 2022-03-24 Hemoglobin A1c [facility] Test 13:41:11 measurement (procedure) of M edicine [code = 69951851] Future Scheduled 2022-03-24 Screening for malignant [facility] Test 13:41:11 neoplasm of breast of Medici ne (procedure) [code = 382300671] Future Scheduled 2022-03-24 Screening for malignant [facility] Test 13:41:11 neoplasm of colon of Medicin e (procedure) [code = 301484492] Future Scheduled 2022-02-28 INFLUENZA VACCINE (#1) [facility] Test 00:00:00 [code = INFLUENZA Medical Ce nter VACCINE (#1)] Future Scheduled 2022-02-27 Screening for malignant [facility] Test 11:42:27 neoplasm of colon of Medicin e (procedure) [code = 257181712] Future Scheduled 2022-02-27 Pneumococcal Combined [facility] Test 11:42:27 (1 - PCV) [code = of Medicin e Pneumococcal Combined (1 - PCV)] Future Scheduled 2022-02-27 BMI FOLLOW UP PLAN [facility] Test 11:42:27 [code = BMI FOLLOW UP of Med icine PLAN] Future Scheduled 2022-02-27 Human immunodeficiency [facility] Test 11:42:27 virus screening of Medicine (procedure) [code = 528169416] Future Scheduled 2022-02-27 Screening for malignant [facility] Test 11:42:27 neoplasm of cervix of Medici ne (procedure) [code = 521221810] Future Scheduled 2022-02-27 TETANUS SHOT (ADULT) [facility] Test 11:42:27 [code = TETANUS SHOT of Medi cine (ADULT)] Future Scheduled 2022-02-27 Screening for malignant [facility] Test 11:42:27 neoplasm of breast of Medici ne (procedure) [code = 418272240] Future Scheduled 2022-02-27 ZOSTER VACCINE (1 of 2) [facility] Test 11:42:27 [code = ZOSTER VACCINE of Pr dicine (1 of 2)] Future Scheduled 2022-02-27 COVID-19 Vaccine (3 - [facility] Test 11:42:27 Booster for Pfizer of Medici ne series) [code = COVID-19 Vaccine (3 - Booster for Pfizer series)] Future Scheduled 2022-02-27 FLU VACCINE > 6 MONTHS [facility] Test 11:42:27 [code = FLU VACCINE > 6 of M edicine MONTHS] Future Scheduled 2022-01-[address] [facility] Test 00:[facility]:00 measurement (procedure) [facility] [code = 70258387] Future Scheduled 2021-06-[address] [facility] Test 00:00:00 (12+) [code = Medical Center DEPRESSION SCREENING (12+)] Future Scheduled 2021-02-16 COVID-19 VACCINE (3 - [facility] Test 00:00:00 Booster for Pfizer Medical C enter series) [code = COVID-19 VACCINE (3 - Booster for Pfizer series)] Future Scheduled 2019 SHINGLES VACCINES ([address] [facility] Test 00:00:00 2) [code = SHINGLES Medical Center VACCINES (1 of 2)] Future Scheduled 2014 Lipid panel (procedure) [facility] Test 00:00:00 [code = 29953667] Medical Ce nter Future Scheduled 1990 Screening for malignant [facility] Test 00:00:00 neoplasm of cervix Medical C enter (procedure) [code = 869409649] Future Scheduled 1988-01-07 DTAP/TDAP/TD VACCINES [facility] Test 00:00:00 (1 - Tdap) [code = Medical C enter DTAP/TDAP/TD VACCINES (1 - Tdap)] Future Scheduled 1979 DIABETIC EYE EXAM [code [facility] Test 00:00:00 = DIABETIC EYE EXAM] Medical Center Future Scheduled [address] [facility] Test 00:[facility]:00 examination [facility] Center (regime/therapy) [code = 236447060] Future Scheduled 1979 Urine screening for [facility] Test 00:00:00 protein (procedure) [facility] Center [code = 000263431] Future Scheduled [address] [facility] Test 00:00:00 0-64 YRS (1 - PCV) Medical C enter [code = PNEUMOCOCCAL VACCINE 0-64 YRS (1 - PCV)] Future Scheduled 1969 CT Colonography (combo) [facility] Test 00:00:00 [code = CT Colonography [facility] (combo)] Future Scheduled 1969 Screening for malignant [facility] Test 00:00:00 neoplasm of colon Medical Ce nter (procedure) [code = 362588374] Future Scheduled 1969 Screening for malignant [facility] Test 00:00:00 neoplasm of colon Medical Ce nter (procedure) [code = 414196419] Future Scheduled 1969 Sigmoidoscopy [code = [facility] Test 00:[facility] Sigmoidoscopy] Medical Cente r Encounters Start End Encounter Admission Attending Care Care Encounter Source Date/Time Date/Time Type Type Clinicians Facility Department ID 2022-05-06 Outpatient Darinel Haney [facility] [id number] 2 Common 14:47:00 [id number] [facility] 2022-05-01 Outpatient Darinel Haney STLMLC STLMLC [id number] 2 Common 10:38:00 [facility] 2022-04-24 Outpatient Haney, Na STLMLC STLMLC [id number] 2 Common 13:41:01 [facility] 2022-04-18 Outpatient Haney, Na STLMLC STLMLC [id number] 2 Common 14:22:00 [facility] 2022-04-03 Outpatient Haney, Na STLMLC STLMLC [id number] 2 Common 16:47:01 [facility] 2022-03-20 Outpatient Haney, Na STLMLC STLMLC [id number] 2 Common 11:50:01 [facility] 2022-02-22 Outpatient Haney, Na STLMLC STLMLC [id number] 2 Common 09:27:00 [facility] 2022-01-31 Outpatient Haney, Na STLMLC STLMLC [id number] 2 Common 13:37:01 [facility] 2022-01-15 Outpatient Haney, Na STLMLC STLMLC [id number] 2 Common 13:51:00 [facility] 2021-11-19 Outpatient Haney, Na STLMLC STLMLC [id number] 2 Common 11:21:07 [facility] 2021-11-02 Outpatient Haney, Na STLMLC STLMLC [id number] 2 Common 09:23:01 [facility] 2021-10-08 Outpatient Haney, Na STLMLC STLMLC [id number] 2 Common 11:37:01 [facility] 2021-09-24 Outpatient Haney, Na STLMLC STLMLC [id number] 2 Common 11:59:00 [facility] 2021-09-06 Outpatient Haney, Na STLMLC STLMLC [id number] 2 Common 08:34:01 [facility] 2021-08-21 Outpatient Haney, Na STLMLC STLMLC [id number] 2 Common 11:41:00 [facility] 2021-07-25 Outpatient Haney, Na STLMLC STLMLC [id number] 2 Common 14:33:29 [facility] 2021-07-25 Outpatient Haney, Na STLMLC STLMLC [id number] 2 Common 14:24:24 [id number] [facility] 2021-07-25 Outpatient Haney, Na STLMLC STLMLC [id number] 2 Common 13:57:58 [facility] 2021-07-25 Outpatient Haney, Na STLMLC STLMLC [id number] 2 Common 13:56:51 [facility] 2021-07-25 Outpatient Haney, Na STLMLC STLMLC [id number] 2 Common 13:47:46 [id number] [facility] 2021-07-25 Outpatient Haney, Na STLMLC STLMLC [id number] 2 Common 12:48:36 [id number] [facility] 2021-07-25 Outpatient Haney, Na STLMLC STLMLC [id number] 2 Common 12:33:46 [id number] [facility] 2021-07-25 Outpatient Haney, Na STLMLC STLMLC [id number] 2 Common 12:31:18 [id number] [facility] 2021-07-25 Outpatient Haney, Na STLMLC STLMLC [id number] 2 Common 12:26:58 [id number] [facility] 2021-07-25 Outpatient Haney, Na STLMLC STLMLC [id number] 2 Common 12:09:32 [id number] [facility] 2021-07-25 Outpatient Haney, Na STLMLC STLMLC [id number] 2 Common 12:02:06 [id number] [facility] 2021-07-25 Outpatient Haney, Na STLMLC STLMLC [id number] 2 Common 12:01:44 [id number] [facility] 2021-07-25 Outpatient Haney, Na STLMLC STLMLC [id number] 2 Common 11:58:40 [id number] [facility] 2021-07-25 Outpatient Haney, Na STLMLC STLMLC [id number] 2 Common 11:57:47 [id number] [facility] 2021-07-25 Outpatient Haney, Na STLMLC STLMLC [id number] 2 Common 11:57:12 [id number] [facility] 2021-07-25 Outpatient Haney, Na STLMLC STLMLC [id number] 2 Common 11:56:42 [id number] [facility] 2021-07-25 Outpatient Haney, Na STLMLC STLMLC [id number] 2 Common 11:55:04 [id number] [facility] 2021-07-25 Outpatient Haney, Na STLMLC STLMLC [id number] 2 Common 11:32:26 [id number] [facility] 2021-07-25 Outpatient Haney, Na STLMLC STLMLC [id number] 2 Common 11:32:11 [id number] [facility] 2021-07-25 Outpatient Haney, Na STLMLC STLMLC [id number] 2 Common 11:30:56 [id number] [facility] 2021-07-25 Outpatient Haney, Na STLMLC STLMLC [id number] 2 Common 11:24:01 [id number] [facility] 2021-07-25 Outpatient Haney, Na STLMLC STLMLC [id number] 2 Common 11:16:56 [id number] [facility] 2021-07-25 Outpatient Haney, Na STLMLC STLMLC [id number] 2 Common 11:10:23 [id number] [facility] 2021-07-25 Outpatient Haney, Na STLMLC STLMLC [id number] 2 Common 11:09:28 [id number] [facility] 2021-07-25 Outpatient Haney, Na STLMLC STLMLC [id number] 2 Common 10:58:23 [id number] [facility] 2021-07-25 Outpatient Darinel Haney STLMLC STLMLC [id number] 2 Common 10:57:38 [id number] [facility] 2022-06-03 2022-06-03 Office MAREK Lomeli [id number] [facility] 15:40:00 16:00:00 Visit Suneal K AMBULATOR 350.1.13.21 College Y 0.2.7.2.686 of [id number] Medi la nena 325 e 2022-05-31 2022-05-31 Office Kadeem Minor [facility] 1.2.840.114 [id number] [facility] 14:30:00 16:18:42 Visit AMBULATOR 350.1.13.21 College Y 0.2.7.2.686 of [id number] Medi la nena 310 e 2022-05-28 2022-05-[address] [facility] 1.2.840.114 [id number] [facility] 08:40:00 09:47:51 Visit , Mary Valdes 350.1.13.21 College Sravanti 0.2.7.2.686 of [id number] Medi la nena 506 e 2022-05-28 2022-05-28 Outpatient TEEGAVARAPU [facility] [id number] [facility] 00:00:00 00:00:00 , MARY Lazaro ege of Medicin e 2022-05-25 2022-05-25 (TEL) STLMLC STLMLC [id number] Co mmon 00:00:00 00:00:00 [facility] 2022-05-09 2022-05-09 OFFICE STLMLC STLMLC [id number] Co mmon 00:00:00 00:00:00 VISIT EST Spir it PT LEVEL 3 - [facility] 2022-05-07 2022-05-07 (TEL) STLMLC STLMLC [id number] Co mmon 00:00:00 00:00:00 [facility] 2022-05-06 2022-05-06 OFFICE STLMLC STLMLC [id number] Co mmon 00:00:00 00:00:[address] [facility] LEVEL 4 [facility] 2022-03-22 2022-03-22 Office Deal, Kadeem [facility] 1.2.840.114 [id number] [facility] 13:15:00 14:25:46 Visit AMBULATOR 350.1.13.21 College Y 0.2.7.2.686 of [id number] Medi la nena 310 e 2022-03-20 2022-03-20 (TEL) STLMLC STLC [id number] Co mmon 00:00:00 00:00:00 [facility] 2022-03-20 2022-03-20 (TEL) STLC STLC [id number] Co mmon 00:00:00 00:00:00 [facility] 2022-03-19 2022-03-19 [facility]EL[facility] [id number] Co mmon 00:00:00 00:00:00 [facility] 2022-03-08 2022-03-08 Outpatient [facility] [id number] [facility] 08:37:00 23:59:00 Colleg e of Medicin e 2022-03-08 2022-03-08 [facility] Chris [facility] [id number] [facility] 08:37:00 10:47:00 [facility] 2022-03-08 2022-03-08 Outpatient CHRIS [facility] [id number] [facility] 10:36:11 10:36:11 [facility] 2022-03-08 2022-03-08 Outpatient CHRIS [facility] [id number] [facility] 10:30:14 10:30:14 [employer] [employer] [employer] 2022-03-08 2022-03-08 Surgery Chris [facility] [id number] [facility] [address] 09:30:00 10:30:00 [facility] 2022-03-08 2022-03-08 Anesthesia Clinton [facility] [id number] [facility] St 09:18:00 09:51:[address] [facility] 2022-03-06 2022-03-06 (TEL) STLMLC STLMLC [id number] Co mmon 00:00:00 00:00:00 [facility] 2022-03-05 2022-03-05 Outpatient BCM BCM [id number] [facility] 08:53:14 11:01:45 Marco chow of Medicin e 2022-02-26 2022-02-[address] [facility] 1.2.840.114 [id number] [facility] 11:17:43 12:44:36 Visit , MARY Valdes 350.1.13.21 College 0.2.7.2.686 [id number] Medi la nena 506 e 2022-02-26 2022-02-26 OFFICE STLMLC STLMLC [id number] Co mmon 00:00:00 00:00:00 VISIT [facility] PT - [facility]I LEVEL 4 [facility] 2022-02-14 2022-02-14 [facility] [id number] 08:58:32 23:59:00 Encounter [facility] 2022-02-11 2022-02-11 [facility] [id number] 11:48:54 23:59:00 Encounter [facility] 2022-02-11 2022-02-11 Travel [facility] [id number] [facility] 00:[facility]00 00:00:00 [facility] 2022-01-29 2022-01-29 (TEL) STLMLC STLMLC [id number] Co mmon 00:00:00 00:00:00 [facility] 2022-01-28 2022-01-28 OL DIG E/M STLMLC STLC [id number] Common 00:00:00 00:00:00 SVC 21+ [facility] MIN - [facility] 2022-01-25 2022-01-25 (TEL) STLMLC STLMLC [id number] Co mmon 00:00:00 00:00:00 [facility] 2022-01-10 2022-01-10 Office Aracely, [facility] [id number] 12:30:00 13:00:00 Visit [facility] 2022-01-03 2022-01-03 Hospital Percy, [facility] [id number] 07:54:07 23:59:00 Encounter [facility] 2022-01-03 2022-01-03 (TEL) STLMLC STLMLC [id number] Co mmon 00:00:00 00:00:00 [facility] 2021-12-17 2021-12-17 Office Aracely, [facility] [id number] 14:00:00 15:00:00 Visit [facility] 2021-12-10 2021-12-10 (TEL) STLMLC STLMLC [id number] Co mmon 00:00:00 00:00:00 [facility] 2021-12-06 2021-12-06 OFFICE STLMLC STLMLC [id number] Co mmon 00:00:00 00:00:00 VISIT Spirit ESTAB PT - [facility] LEVEL 4 [facility] 2021-11-21 2021-11-21 (TEL) STLMLC STLMLC [id number] Co mmon 00:00:00 00:00:00 [facility] 2021-11-19 2021-11-19 (TEL) STLMLC STLMLC [id number] Co mmon 00:00:00 00:00:00 [facility] 2021-11-19 2021-11-19 (TEL) STLMLC STLMLC [id number] Co mmon 00:00:00 00:00:00 [facility] 2021-11-19 2021-11-19 OFFICE STLMLC STLMLC [id number] Co mmon 00:00:00 00:00:00 VISIT EST Spir it PT LEVEL 3 - [facility] 2021-10-24 2021-10-24 Outpatient DARIA AGUILAR [id number] [place] 04:35:00 04:35:[id number] [facility] 2021-10-17 2021-10-17 (TEL) STLMLC STLMLC [id number] Co mmon 00:00:00 00:00:00 [facility] 2021-10-09 2021-10-09 OFFICE STLMLC STLMLC [id number] Co mmon 00:00:00 00:00:00 VISIT Spirit ESTAB PT - [facility] LEVEL 4 [facility] 2021-10-01 2021-10-01 (TEL) STLMLC STLMLC [id number] Co mmon 00:00:00 00:00:00 [facility] 2021-09-27 2021-09-27 Outpatient ROSIO SOMMERSE MHSE [id number] 07:32:00 23:59:00 RONALD Demetrio katya [facility] 2021-09-10 2021-09-10 OFFICE STLMLC STLMLC [id number] Co mmon 00:00:00 00:00:00 VISIT EST Spir it PT LEVEL 3 [facility] 2021-09-04 2021-09-04 (TEL) STLMLC STLMLC [id number] Co mmon 00:00:00 00:00:00 [facility] 2021-08-21 2021-08-21 (TEL) STLMLC STLMLC [id number] Co mmon 00:00:00 00:00:00 [facility] 2021-08-21 2021-08-21 OFFICE STLMLC STLMLC [id number] Co mmon 00:00:00 00:00:00 VISIT EST Spir it PT LEVEL 3 [facility] 2021-08-20 2021-08-20 (TEL) STLMLC STLMLC [id number] Co mmon 00:00:00 00:00:00 [facility] 2021-05-21 2021-05-21 (TEL) STLMLC STLMLC [id number] Co mmon 00:00:00 00:00:00 [facility] 2021-05-21 2021-05-21 OL DIG E/M STLMLC STLMLC [id number] Common 00:00:00 00:00:00 C 11-20 Spir it [facility] 2021-05-16 2021-05-17 Outpatient [facility] [id number] Memoria 18:45:00 05:59:00 r [place] 01 l [facility] 2021-05-16 2021-05-16 Outpatient GOGIA, MHSE MHSE [id number] MH 12:45:00 23:59:[address] [facility] 2021-04-05 2021-04-05 OFFICE STLMLC STLMLC [id number] Co mmon 00:00:00 00:00:00 VISIT [facility] 4 [facility] 2021-03-08 2021-03-08 Outpatient STLMLC STLMLC [id number] Common 00:00:00 00:00:00 [facility] 2021-01-29 2021-01-29 Outpatient STLMLC STLMLC [id number] Common 00:00:00 00:00:00 [facility] 2021-01-17 2021-01-17 Outpatient STLMLC STLMLC [id number] Common 00:00:00 00:00:00 [facility] 2021-01-03 2021-01-03 Outpatient STLMLC STLMLC [id number] Common 00:00:00 00:00:00 [facility] 2021-01-02 2021-01-02 Outpatient STLMLC STLMLC [id number] Common 00:00:00 00:00:00 [facility] 2020-12-04 2020-12-04 Outpatient STLMLC STLMLC [id number] Common 00:00:00 00:00:00 [facility] 2020-11-16 2020-11-16 Outpatient STLMLC STLMLC [id number] Common 00:00:00 00:00:00 [facility] 2020-11-06 2020-11-06 Outpatient STLMLC STLMLC [id number] Common 00:00:00 00:00:00 [facility] 2020-10-03 2020-10-03 Outpatient STLMLC STLMLC [id number] Common 00:00:00 00:00:00 [facility] 2020-09-28 2020-09-28 Outpatient STLMLC STLMLC [id number] Common 00:00:00 00:00:00 [facility] [facility] 2020-08-24 2020-08-24 Outpatient STLMLC STLMLC [id number] Common 00:00:00 00:00:00 [facility] 2020-08-17 2020-08-17 Outpatient STLMLC STLMLC [id number] Common 00:00:00 00:00:00 [facility] 2020-08-11 2020-08-11 Outpatient STLMLC STLMLC [id number] Common 00:00:00 00:00:00 [facility] 2020-08-03 2020-08-03 Outpatient STLMLC STLMLC [id number] Common 00:00:00 00:00:00 [facility] 2020-07-31 2020-07-31 Outpatient STLMLC STLMLC [id number] Common 00:00:00 00:00:00 [facility] 2020-06-26 2020-06-26 Outpatient STLMLC STLMLC [id number] Common 00:00:00 00:00:00 [facility] 2020-06-20 2020-06-20 Outpatient [facility] [id number] [place] 10:21:00 10:21:00 [place] [id number] [facility] 2020-06-15 2020-06-15 Outpatient STLMLC STLMLC [id number] Common 00:00:00 00:00:00 [facility] 2020-06-14 2020-06-14 Outpatient STLMLC STLMLC [id number] Common 00:00:00 00:00:00 [facility] 2020-06-12 2020-06-12 Outpatient STLMLC STLMLC [id number] Common 00:00:00 00:00:00 [facility] 2020-06-07 2020-06-07 Outpatient DARIA AGUILAR [id number] [place] 03:50:00 03:50:00 [place] [id number] [facility] 2020-06-01 2020-06-01 Outpatient STLMLC STLMLC [id number] Common 00:00:00 00:00:00 [facility] 2020-05-29 2020-05-29 Outpatient STLMLC STLMLC [id number] Common 00:00:00 00:00:00 [facility] 2020-05-08 2020-05-08 Outpatient STLMLC STLMLC [id number] Common 00:00:00 00:00:00 [facility] 2020-05-04 2020-05-04 Outpatient STLMLC STLMLC [id number] Common 00:00:00 00:00:00 [facility] 2020-04-24 2020-04-24 Outpatient STLMLC STLMLC [id number] Common 00:00:00 00:00:00 [facility] 2020-04-20 2020-04-20 Outpatient STLMLC STLMLC [id number] Common 00:00:00 00:00:00 [facility] 2020-04-19 2020-04-19 Outpatient STLMLC STLMLC [id number] Common 00:00:00 00:00:00 [facility] 2020-04-18 2020-04-18 Outpatient STLMLC STLMLC [id number] Common 00:00:00 00:00:00 [facility] 2020-04-17 2020-04-17 Outpatient STLMLC STLMLC [id number] Common 00:00:00 00:00:00 [facility] 2020-04-11 2020-04-12 Outpatient [facility] [id number] Mem[place] 14:07:00 04:59:00 [place] [address] l [facility] 2020-04-11 2020-04-11 Outpatient GOGIA, MHBL MHBL 7500 MHBL 09:07:00 23:59:00 RONALD 2020-01-26 2020-01-26 [facility] [id number] Common 14:36:00 14:36:[address] [facility] 2020-01-24 2020-01-24 [facility] [id number] Common 13:45:00 13:45:[address] [facility] 2020-01-19 2020-01-19 [facility] [id number] Common 08:40:00 08:40:[address] [facility] 2020-01-18 2020-01-18 [facility] [id number] Common 15:20:00 15:20:[address] [facility] 2020 2020 [facility] [id number] Common 14:44:00 14:44:[address] [facility] 2020 2020 [facility] [id number] Common 09:39:00 09:39:[address] [facility] 2019-12-24 2019-12-24 [facility] [id number] Common 17:41:00 17:41:[address] [facility] 2019-12-21 2019-12-21 [facility] [id number] Common 09:20:00 09:20:[address] [facility] 2019-10-27 2019-10-27 [facility] [id number] Common 14:08:00 14:08:[address] [facility] 2019-10-13 2019-10-13 [facility] [id number] Common 11:40:00 11:40:[address] [facility] 2019-10-04 2019-10-04 [facility] [id number] Common 08:00:00 08:00:[address] [facility] 2019-08-26 2019-08-26 [facility] [id number] Common 09:30:00 09:30:[address] [facility] 2019-08-25 2019-08-25 [facility] [id number] Common 11:51:00 11:51:[address] [facility] 2019-08-24 2019-08-24 [facility] [id number] Common 14:40:00 14:40:[address] [facility] 2019-08-17 2019-08-17 [facility] [id number] Common 11:59:00 11:59:[address] [facility] 2019-07-05 2019-07-05 [facility] [id number] Common 16:00:00 16:00:[address] [facility] 2019-06-22 2019-06-22 [facility] [id number] Common 11:53:00 11:53:[address] [facility] 2019-06-22 2019-06-22 [facility] [id number] Common 10:22:00 10:22:[address] [facility] 2019-05-24 2019-05-24 [facility] [id number] Common 10:00:00 10:00:[address] [facility] 2019-05-05 2019-05-05 [facility] [id number] Common 15:44:00 15:44:[address] [facility] 2019-05-04 2019-05-04 [facility] [id number] Common 15:20:00 15:20:[address] [facility] 2019-04-27 2019-04-27 [facility] [id number] Common 17:18:00 17:18:[address] [facility] 2019-04-26 2019-04-26 [facility] [id number] Common 17:24:00 17:24:[address] [facility] 2019-04-20 2019-04-20 [facility] [id number] Common 08:27:00 08:27:[address] [facility] 2019-04-12 2019-04-12 [facility] [id number] Common 11:00:00 11:00:[address] [facility] 2019-03-30 2019-03-30 [facility] [id number] Common 14:00:00 14:00:[address] [facility] Results Test Description Test Time Test Comments Results Result Comments Source Urine Culture, Routine 2022-05-09 00:00:00 Test Item Value Reference Range Interpretation Comme nts Urine Culture, Routine (test code = 630-4) Final report A POCT HEMOGLOBIN [id number] 18:42:00 Test Item Value Reference Range Interpretation Comments HEMOGLOBIN A1C (test code = 4548-4) 7.7 % 4.0-5.6 A Lab Interpretation (test code = Abnormal 08832-6) [id number] 18:40:02 Test Item Value Reference Range Interpretation Comments Case Report (test code Surgical Pathology = 104) Report Case: [id number] Authorizing Provider: Trina Perez MD Collected: 03/08/2022 09:24 AM Ordering Location: [facility] Received: 03/08/2022 02:08 PM SERVICES Pathologist: Pinky Kumar MD Specimens: A) - Biopsy, Gastric, Bx B) - Polyp, Colon - Transverse, cold snare DIAGNOSIS (test code = w3aoeEDmBCOua0yxYCQwbX 3220) FuZzEwMzNcZnRuYmpcdWMx IHtccnRmMVxlcGljOTYwMl qdcsDtFJDbyKMfC2Onhfsh KJqgDK2gWM9qeMnmbJFhrR YnKOZyUuZak9jee579rNNe h2xeZVTVspvpnOn1rEjzW9 0ls2E3YslaF89zpMFsXRT1 WWBaOWSfqBYgPGMtYGW2YS HdrGJjN5neCOGrED4niolq HBicBHqoKBQpaPW9RNTreA UnJ1FjYNYxZAqzAVXzjjx5 PaMzQb0qfAIdsHbjUVmgFN KxOKOtHWagDKFuQsHpMA3l T2INNVLMZQZLGD2GW8vsyN MdLU1mOMKRTPEVDdaTMUeL PBRCOMSFYYeTV1PCRSCFVk weWOsVKZibICOaKFTiEN0U IElOVEVTVElOQUwgTUVUQV KDVVUCFHlkOEtDCJbRQ1dK VT2ZIGVDMuKQFo6MVPWHST VOVElGSUVEXHBhciAtICAg Su0aMFESGYUCEcRASEAAUX VXWD4PDBRBIDxSTM7QE4DN SVNNUyBJREVOVElGSUVEIE 0WBORMNFDDGgBeT9LGQT9q wLJtOBRmtnUJQvOGF5wAUr maNDLKMuKTQVAEYAPKD3wW PiOKA1fDYJusGL0MULLAH4 CBTRefmCJhPP2wMCYXV1qQ WA2UVANVNDUKJ9VKOUPXNT hCZE4KOQiOLDlqZj6gIJzF I44JX8OPEpEFROKFA25HPA 9VUyBPUiBIWVBFUlBMQVNU FIDmR2wZUcsXR1xvZSFbBI MeOX61qBKsxIbcBDeakdPv riP5SQYvYRU5FK5idaRyYN TrkYNzhDtyfwEqKHenh2Lg GUcmZUXoAX6jqQcuOWXyHP 7yBAVkZ0jafT0upvq0EmOe VAQhUtA6QSHrcaG1Ddf2TT GvKVkuz7qnh4TdNTGsQNy6 sGszYqPmHLPbv3dxbyLaUj WzDTOzDJDuPMWtmUEhX991 p7sot5mrxiDvrSG1RYZyNJ N2LFzkknXfrpJ2TIwdnJPu DgJ2UKdvawSvPFcxicVwka YrLoa0LEQqI914ORF5eOmn x4bnUJG8RANkTBWnSfNaAy 8rwZTmW107UHFfZSCAVDHk jAg2KCWseuBxlkGuoCBKl8 56U184b0dyPPSosnHlaRuA utlhg9zeM117TVZjjXSzka UfVxObYKPwyVYvdMT7VYTj WA7kuzuiUOsrWCjfOWKhtw S6MKIudYEdX1OrJXMsPU0a zfeaSOQ0UHdkRGGeUCT5Pp LaVSSqu4Uriwp4IgQdxf9p ka82BJX3m4XajInyRFN2AY T2VeSkPy9gzKWpJIWfLK3l DyPymOLdNRAjsk45dMqjSO gnLSS9OYYkrdXtj1Vox2zm AgSnxdToR8noG1MsBQNxUS DjUSWwHtBsqqPcq8Sou2Hj nUNleTr6g4zeZSPaGEEbsN acb8wtNBG4UCQjnUGeU2yk sG6tCRInYU5lyawui0hxAU plWXzbIKMqqUY7gxC0BDTo mNTvU5MyyU7yJJFkSBobZY Qsbvv1QcZzJa0nbXKzoStp MFxzYmtwYWdlXHBnbmNvbn RccGduZGVjXHBsYWluXHBs YWluXGYwXGZzMjRccWxcbG FuZzEwMzNcaGljaFxmMVxk UzZkEFHpNYmdE1xfFhKzNk VxNel8KKIbrCFsXSEvZsc9 YVGftKSzLZUOvOzwyG6hVW KcdEhcuI0lcPU0JWQghoDg qKFFmB0wZOHNjJ9zOjN5Fd XzZxT7RXm6VrFjjVXcuR3= CPT Code(s) (test code q1vcxWJeSRNtsJE7NkCjXN = 3357) Kxl6ezz2IhgPPtmPFdAQgy wDFdmgVyxt26xHS9qO32DZ 5yTRFfBgR9DEKcmmU9Qup9 AMYrJYBijIStB241r9lyv5 udeaBymFT2tAdiNMFazbaq MdU0CWrnKOAebtteJDl1TK qxYZBmqFD6HNHsnPPhJ9Rv AQYiQY1lmvt1TJI3YXcdBW QhFtB5UPSzzHGcZEUfvTmo EExyp550BSB2PhXwKWZnuh WkkWbqoT2tTrSpKXP8LKJb NSBYIDJccGFyfQ== CLINICAL HISTORY (test u3tnsEEtJIZpeNK2PdIzRZ code = 3356) Phx3jsw0EelXAfrVUqBKiy fDElyeWjss46pOC2wP64KD 4sSHLyKkN0VWAdfhH1Cul7 IGOmTCGobKCqN909o3fqo7 rgguJpfMZ6DIJnFOZlD9Mt IA1cBXXxhNCgO90vsJQjIA P8POOcZFBilNMkHDWhYFP9 PRBblRUiH7ufQQGlYX3hdz cvPWjcHIjdSCUqzIC9MNRy vJDoU7HnHELrFRyuRABbix q0XlPqOd2mrELksGokSGey YXJkXHJpMVxwbGFpblxmcz UpMDKwEVYPy84tnBWrNYQi OWPkrurdWUDzv0n3dZ94kP QgaMFiMWzwGvqjuX7kwFRe iAFaZMIoUKJgdGadY6VcvY Y4HLQwH4StFWN1eDTpXVDv bdXGnBJgdZ1hlESbo1NazK h5AYMek9l2jS26nYFyc8Ir aZHmXKQ8seCsFVZaTgbpXD SlGDDjtNeuAXMneuZeo8Ic xvD4vBGgCQemYJHhW3VpVZ AiVUHxjuFon5eydoCoVT0f ZXJccGFyfQ== SPECIMEN SOURCE (test l9kpeHYqZGAyqIH1MpFyHP code = 3377) Zmo6gmd7MeiDLpsOZzZRxa qLJktcMgtu33sJF9eW13RD 7xLBIkRmY5JGPdjfH0Nis6 OQYkWQCeeJGlD420g0cgh4 xywwHewAK5mWhxRCYpqbhx QpN1OUmmLHLlinokJRh6KZ alCXQsxUK0IZZenIEyS3Bk XLJsOB1mvrj5KYX8WYyeTG PlHzW2TXZbhBHhNVQpqYhy MJfus784RKK6GuGoTJYdwq FjoObwlT4cFrIrSGCSJdNw SjagbGM7XVVxWQW6nqwvMG zeppAiYb1tPDShcUvlQTOk x3awpikhlQSzptF9HBKiKR xwYXJ9 GROSS DESCRIPTION (test e7vjkBIpHBSygICYVISgZ1 code = [id number]) lyhgYsJEJnxKCvL6Eyfaqg FJefJI7tAG5yeSfazMDvpX UwLW4RVHLdZdKeAJVwrYKl lkRgMsDeSTIdlYFjwSQ9TL WyKJ5avhzxOXxuEKtkBJIe nzZ2QTBiiKZbT9OqJHJbZR 9rdfwbEFU1KYoauQ0hivFU CpgkUb4leRFcxTydEtHyRq NoYXJzZXQwXGZuaWwgQXJp OQb5dD6MUwbbSSL7IXXPJc qvALGlZS3Zb1aoFOHydFUe UKT8MHdlsPGfGLTmGLEgKT s2QPWgWAztnWQuKT0euSvu TxwwzUhax4ObfTNdEClmNN YxHQKxZTwaPFZaSO8DBbAx UII8EkR0QXMoIIt5DCd2IO 9WUyAiICAzMDAzOTQxMSIg SQz9BUesFI1HROTnWVAqBO F4NmD9BSO4BXHgCKUmOtGz XGYgQXJpYWwgXFxmbCBcXG 8eeDtibCJvnvFGGlPTqF2d v4uzAXjjc4BuaHWyOSKilj ANClxlcGljTmVzdERvYzEg DQpcbHRycGFyXGxpbjBccm luMCANClxsdHJjaFxmczIw HSZqBNZltISmmU0uhgPvcj VmJZPnnJUnCTCjlyFwk7Pd QMzgqzVvFNXoxUerFRR3tZ VoBEKfLPLzKXXdQZ57HYrS NHMgbmFtZSwgbWVkaWNhbC ByZWNvcmQgbnVtYmVyIGFu WADnD3UjxZOdYhVdxA4vt4 kqYGLoIJVwl68qgXZ5wyCk MgA1EVDavq9bbU7rMB11U8 9nVF6vq0IlcoKuYYZvq2X0 ZSBmcmFnbWVudHMgKGZyb2 1sLK5cLOQsTTSuTFDmOtNp bSBpbiBncmVhdGVzdCBkaW 9ciaFjv92cHiHQkWZfp6Tg I7hdDE2vlQUfn9TtlTk9iY EhYJtvYLCokY3pRr9olP41 nD2xNYBukTYdQZPcl43hvW 9mN5Crx1X8lTWyTSGmAEAj ciANClxwYXIgDQpLTCAocm VzaWRlbnQpXHBhciANClxw bGFpblxlcGljTmVzdERvYz SmaIvphE17IEQiaMGdNYV8 RM5vWXObtrlgTXHvAOPuQD R4SYcrkH72fCZqWZWrEYHc eILbfU6Oe3sgUQFaoEKrRM N3OLzxlXOrUONaQGApADrl QzWiQ9YRNTBfIzm7JQx0Sy UlIGh1NBgsO7ILORLrWIBi QVS9ZLIaMuU6HCt5OSORKz 3rCvDnVhQ1VQE9RAM4OUxj IFxcdCAyIFxcZiBBcmlhbC IhXZOyITfqtxE2YPUhFBJd qOjqgO7iYy7zDL2ysUOoNF CrgL9wAR9uMJUvdpI1WFPn WH1tpKUjSI3DZDJbgJNSTM G5AX0kXCDFJpkiqPNfNTYo uCfaGIubbC0uBZ9JRCc6kp NoXGZzMjAgVGhlIHNwZWNp lZMsFPhtXJGyR4KdwdGnTA ugNTDtji9pwRrzHYmvAaVr bGVkIHdpdGggdGhlIHBhdG xjaeMvE1H5dqDtGX0dFNSd KBCiM8QgKFXzC06qKPDazI 6xPTGnEQ1pFBT6wbVcd8Us cnNlIHBvbHlwIiBhbmQgY2 4rb9nnjRSmg8BwXTX7QL8k dVpfcxFkoJKnw0YtR682DP AtPTD9eSZhqFWxSxVzN02r zsEsJHuzAvThF36nbY5yL4 TuKEAcd3VdSDxcTT0xxF5q VI6qHKntPBXkLELzmGJlYG ouLZC4Ez4ntPJnPLAjkeY4 n2TtOHAvxHuix7pkOxLbaA f9oxF6zS4dDAusGQRzq6Dv dHRlIEIxLlxwYXIgDQpccG WvGW2ES3urMYHdy9mxGN94 MGezDHJmIMvwbFggaP4fAQ PdV97fp5RJi5JsESKeEFbw w6elpDdtw2DwdTAoVUdiCU HauTIhMEfgdD5yCkQko2yb sCb2PXpkfrQ8JQWabr1NXz crvF2pVfXlc1vqxGn6WLIT FnnkiaC2f4dtoGpus2LwzF BoXI5ZXs5= MICROSCOPIC DESCRIPTION k8ejnJPdAIWjuDF2AzRrJH (test code = 3371) Ute5pce4GptRDkmUEbAFqc nYKvijDmag38nHK1vH08NC 3rHKYpYgU7MGJtsyR9Hcr7 MBWxGECywGTzM584v9gie3 hafpBlhBK1bOsiDSRankak PmB4UPzfHLHgngnoGWm6ZT axELHopFD6ORYbiFDpA8Rm TJMuZM8gcgw6JFV8GNeaEO CkZwF9KBToySYbHZJuqGdr XGjou256MHQ6XsZvZGBlgk BhxArgnO4uKlQjKGZZCCSs h8VaESEcOPKtso2= Gross assessment was [facility] performed at ([facility], = 2777) Department of Pathology, [address] [place] [address] 18525, Technical component was [facility] performed at ([facility], = 2778) Department of Pathology, [address] [place] [address] 41371, Professional component [facility] was performed at ([facility], code = 2779) Department of Pathology, [address] [place] [address] 19489, [facility] VistaTISSUE [id number] 18:40:02Surgical Pathology Report Case: [id number] Authorizing Provider: Trina Perez MD Collected: 03/08/2022 09:24 AM Ordering Location: [facility] Received: 03/08/2022 02:08 PM SERVICES Pathologist: Pinky Kumar MD Specimens: A) - Biopsy, Gastric, Bx B) - Polyp, Colon - Transverse, coldsnare A. STOMACH BIOPSY- CHRONIC INACTIVE GASTRITIS, MILD- NO INTESTINAL METAPLASIA, DYSPLASIA OR CAR CINOMA IDENTIFIED- NO HELICOBACTER PYLORI LIKE ORGANISMS IDENTIFIED ON ROUTINE STAINB. COLON, TRANSVERSE COLON POLYP, POLYPECTOMY- POLYPOID MUCOSAL FRAGMENT WITH NO DIAGNOSTIC ADENOMATOUS OR HYPERPLASTIC CHANGES Multiple levels were examined Signing Pathologist Direct Phone Line: [phone] signed by Pinky Kumar MD on 03/13/2022 at 6:39 [id number] X 2Esophageal varices without bleeding, unspecified esophageal varices type Cirrhosis of liver without ascites, unspecified hepatic cirrhosis type Screen for colon cancerA. Biopsy, gastricB. Polyp, colon, transverseA. Biopsy, Gastric.The specimen is received in formalin labelled with the patient's name, medical record number and "gastric b iopsy" and consists of 4 wan-pink mucosa-covered tissue fragments (from 0.2 cm to 0.3 cm in greatestdimension). The specimen is submitted in toto following filtration in cassette A1.SCOTT (resident)B. Polyp, Colon - Transverse.The specimen is received in formalin labelled with the patient's name, medical record number and "transverse polyp" and consists of 1 wan-pink mucosa-covered tissue fragments (0.3 cm in greatest dimension). The specimen is submitted in toto following filtration in cassette B1.SCOTT(resident)Performed.[facility], Department of Pathology, [address] [place] [address], [facility], [address] [place] [address], [facility], [facility], [address] [place] [address], EVC-Glucose [id number] 09:27:26 Test Item Value Reference Range Interpretation Comments POC-Glucose Meter (test 87 mg/dL 70-110 : TE STED AT [facility] code = 1538) [address] [facility], [place] [address]: Paper Coating Supervisor/Techni cheyenne ID = [id number] for ANGELIC BARRETT Lab Interpretation (test Normal code = 29556-2) [facility] Vista[facility]CT-GLUCOSE [id number] 09:27:26 Test Item Value Reference Range Interpretation Comments POC-GLUCOSE METER 87 mg/dL 70-110 : TESTED A T [facility] 7200 (BEAKER) (test code = [facility], 1538) [place] [address]: Paper Coating Supervisor/Techni cheyenne ID = [id number] for VERONA OCONNELL GASTRIC EMPTYING STUDY, SOLID 4 [id number] 15:17:00VANG, NA LY MDReason for Exam:->abdominal distension, diabetes, assess [facility] gastropareisis [facility] : 1970 Sex: FFINAL REPORT PROCEDURE: GASTRIC EMPTYING STUDY with Solids/Consensus Standard Protocol CPT CODE: 75513 INDICATION: Abdominal distention with diabetes. PROTOCOL: 0.51 mCi of Tc-99m sulfur colloid was administered in a consensus standard meal. The patient consumed 100% of the meal within 10 minutes. Serial images of the upper abdomen were obtained in the anterior and posterior projections immediately after tracer ingestion and subsequently at 1, 2, 3, and 4 hours after tracer administration. Gastric retention of tracer was calculated by the geometric mean method. FINDINGS: There is progressive emptying of gastric contents into the small bowel. Gastric retention of tracer was 93%, 71%, 40%, and 15% at 1, 2, 3, and 4 hours respectively. (Reference values are <90%, <60%, <30%, and <10% at 1, 2, 3, and 4 hours.) IMPRESSION: Mild delayed gastric emptying of a solid meal using the consensus standard protocol. Signed: Elliot Soto MDReport Verified Date/Time: 02/14/2022 15:17:33 HEPATITIS A ANTIBODY, [id number] 15:13:22 Test Item Value Reference Range Interpretation Comments HEPATITIS A IGG ANTIBODY (BEAKER) Reactive Nonreactive A (test code = 2797) Paper Coating Supervisor ID - BSBASIC METABOLIC [id number] 14:51:44 Test Item Value Reference Range Interpretation [...] S NOT APPLICABLE FOR DIALYSIS PATIEN TS. Paper Coating Supervisor ID - BSHEPATIC FUNCTION [id number] 14:51:44 Test Item Value Reference Range Interpretation [...] (test code = 29 U/L 6-55 347) Paper Coating Supervisor ID - BSLACTIC ACID, [id number] 14:42:21 Test Item Value Reference Range Interpretation Comments LACTATE BLOOD VENOUS 1.76 mmol/L 0.50-2.20 Specime n slightly (2) (BEAKER) (test hemolyzed code = 4092) Paper Coating Supervisor ID - BSPROTHROMBIN TIME/[id number] 14:38:41 Test Item Value Reference Range Interpretation Comments PROTIME (BEAKER) 13.5 seconds 11.9-14.2 (test code = 759) INR (BEAKER) (test 1.05 See_Comment [Automat ed message] code = 370) The system iubenda generated this result transmitted ref erence range: <=5.90. The reference range was not used to int erpret this result as normal/abnormal . RECOMMENDED COUMADIN/WARFARIN INR THERAPY RANGESSTANDARD DOSE: 2.0 - 3.0 Includes: PROPHYLAXIS for venous thrombosis, systemic embolization; TREATMENT for venous thrombosis and/or pulmonary embolus.HIGH RISK: Target INR is 2.5-3.5 for patients with mechanical heart valves.CBC W/PLT COUNT & AUTO [id number] 14:32:38 Test Item Value Reference Range Interpretation [...] (BEAKER) (test code = 2801) MR, ABDOMEN, [id number] 15:44:00DARINEL HANEY MD Please do per liver protocol Unlisted Reason for Exam - Click Yes and Enter Reason Below->Yes Unlisted Reason for Exam->cirrhosis [facility] : 1970 Sex: FFINAL REPORT MRI of the abdomen with and without contrast Clinical History: Unlisted Reason for Examcirrhosis Technique: Multiplanar and multisequence MR images of the abdomen are obtained before and after intravenous contrast administration. Contrast is administered to evaluate neoplasm and vasculature. Comparison: None Discussion: Liver is moderate to severely fatty. It has a mildly lobular contour, compatible with cirrhosis. No biliary ductal dilatation. Gallbladder has been removed. There are a few arterially enhancing observations, measuring approximately 8mm in segment 8 (arterial phase image 84), 3 mm in segment 7 (image 78) and a 4 mm in segment 5 (image 29), demonstrating no washout, or corresponding T2 signal alteration. No suspicious liver mass is identified. Hepatic vasculature is patent. Main portal vein measures 11 mm in diameter. Spleen is mildly enlarged and measures 13.3 cm sagittally. The pancreas, and adrenal glands are normal. Kidneys demonstrate no mass, or hydronephrosis. There is no ascites, or adenopathy. Visualized bowel is unremarkable. Normal marrowsignal. Impression: Cirrhosis and mild splenomegaly. Moderate to severe hepatic steatosis. There arethree subcentimeter arterially enhancing observations in the right lobe, favor perfusion anomalies (LI RADS 3), amenable to follow-up. No suspicious mass lesion is identified. Status post cholecystectomy. Signed: Modesta Chahal Verified Date/Time: 01/05/2022 15:44:30 ANTI- NUCLEAR ANTIBODY (SAMIA)2021-12-18 11:44:38 Test Item Value Reference Range Interpretation Comments ANTI-NUCLEAR ANTIBODY (SAMIA) (BEAKER) Negative Negative (test code = 418) Test performed by IFA method.Test performed by IFA method.[id number] 17:57:11 Test Item Value Reference Range Interpretation Comments FERRITIN (BEAKER) (test code = 45.90 ng/mL 5.00-275.00 361) Paper Coating Supervisor ID - BSHEPATITIS B SURFACE [id number] 17:21:28 Test Item Value Reference Range Interpretation Comments HEPATITIS B SURFACE ANTIBODY < mIU/mL <8.0 (BEAKER) (test code = 647) Paper Coating Supervisor ID - BSHEPATITIS B SURFACE [id number] 17:09:40 Test Item Value Reference Range Interpretation Comments HEPATITIS B SURFACE ANTIGEN (2) Nonreactive Nonreactive (BEAKER) (test code = 2585) Specimen is considered negative for HBsAg.ALPHA FETOPROTEIN (AFP), TUMOR MARKER 2021-12-17 17:09:40 Test Item Value Reference Range Interpretation Comments ALPHA-FETOPROTEIN (BEAKER) (test 2.3 ng/mL <10.0 code = 1094) Paper Coating Supervisor ID - BSHEPATITIS B CORE ANTIBODY, [id number] 17:09:40 Test Item Value Reference Range Interpretation Comments HEPATITIS B CORE TOTAL ANTIBODY Nonreactive Nonreactive (BEAKER) (test code = 497) Paper Coating Supervisor ID - BSHEPATITIS C [id number] 17:09:40 Test Item Value Reference Range Interpretation Comments HEPATITIS C ANTIBODY (BEAKER) Nonreactive Nonreactive (test code = 367) Paper Coating Supervisor ID - BSBILIRUBIN, [id number] 16:49:19 Test Item Value Reference Range Interpretation Comments BILIRUBIN DIRECT (BEAKER) (test 0.2 mg/dL 0.1-0.5 code = 706) Paper Coating Supervisor ID - BSCOMPREHENSIVE METABOLIC [id number] 16:49:14 Test Item Value Reference Range Interpretation [...] S NOT APPLICABLE FOR DIALYSIS PATIEN TS. Paper Coating Supervisor ID - BSIRON, TIBC, % SAT. (WITHOUT FERRITIN)2021-12-17 16:47:34 Test Item Value Reference Range Interpretation Comments IRON (BEAKER) (test code = 547) 58.0 ug/dL 40.0-160.0 TOTAL IRON BINDING CAPACITY 311 ug/dL 250-450 (BEAKER) (test code = 769) IRON % SATURATION (2) (BEAKER) 19 % 20-55 L (test code = 2590) Paper Coating Supervisor ID - [id number] 16:47:17 Test Item Value Reference Range Interpretation Comments ALPHA-1 ANTITRYPSIN (BEAKER) 184.50 mg/dL 90.00-200.00 (test code = 502) Paper Coating Supervisor ID - BSLACTIC ACID, [id number] 16:39:11 Test Item Value Reference Range Interpretation Comments LACTATE BLOOD VENOUS 1.29 mmol/L 0.50-2.20 Specime n slightly (2) (BEAKER) (test hemolyzed code = 4547) Paper Coating Supervisor ID - BSPROTHROMBIN TIME/[id number] 16:36:56 Test Item Value Reference Range Interpretation Comments PROTIME (BEAKER) 13.9 seconds 11.9-14.2 (test code = 759) INR (BEAKER) (test 1.09 See_Comment [Automat ed message] code = 370) The system iubenda generated this result transmitted ref erence range: <=5.90. The reference range was not used to int erpret this result as normal/abnormal . RECOMMENDED COUMADIN/WARFARIN INR THERAPY RANGESSTANDARD DOSE: 2.0 - 3.0 Includes: PROPHYLAXIS for venous thrombosis, systemic embolization; TREATMENT for venous thrombosis and/or pulmonary embolus.HIGH RISK: Target INR is 2.5-3.5 for patients with mechanical heart valves.CBC W/PLT COUNT & AUTO [id number] 16:33:51 Test Item Value Reference Range Interpretation [...] 0-1 PERCENT (BEAKER) (test code = 2801) STREP A [id number] 00:00:00 Test Item Value Reference Range Interpretation Comments Result (test code = 29617-8) Negative CHEM [id number] 20:32:00 Test Item Value Reference Range Interpretation Comments POC Creatinine (test code = POC 0.6 0.5-1.4 Creatinine) [facility] [id number] 20:32:00 Test Item Value Reference Range Interpretation Comments eGFR (test code = eGFR) [facility], STEREOTACTIC BIOPSY, BREAST, [id number] 15:59:00Reason for Exam:->calcificationAddendum BeginsMAGNOLIA REGIONAL HE[facility] CENTER#: [id number]: 05/14/2017 Lizzette Corrales M.D. 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 Addendum EndsN#: [id number] - , STEREOTACTIC BIOPSY, BREAST, LEFTSTEREOTACTIC GUIDED BIOPSY LEFT BREAST WITH MARKING DEVICE INSERTED AND POST DIGITAL MAMMOGRAPHIC IMAGING AND RADIOGRAPHIC SPECIMEN IMAGIN05/09/2017PATIENT CONSENT: The procedure, risks, benefits and alternatives were discussed withthe patient. Informed consent was obtained. A stereotactic [...] Once the needle was documented to be inthe correct location, five specimens were obtained using Aff[employer]ova EVIVA device. A clip was inserted into the biopsy cavity. Post procedure digital mammographic imaging demonstrates the clip at the targeted area. The specimens were sent to the laboratory for pathological analysis. IMPRESSION: STEREOTACTICGUIDED BIOPSYStereotactic guided biopsy of the area of calcifications in the left breast at 12 o'clock middle depth was successful with no apparent post procedure complications. The imaged specimens includes the calcifications. Lizzette Corrales M.D. pth/penrad:05/09/2017 11:07:57 Public Services Librarian: Felicia SCHNEIDER)(M), [facility] [address] TISSUE [id number] 12:48:00Surgical Pathology Report Case: [id number] Authorizing Provider: Lizzette Corrales MD Collected: 05/09/2017 1110 Ordering Location: [facility] [employer] Received: 05/09/2017 1312 Pathologist: Jackie Maradiaga MD Specimen: Breast, Left, LEFT MIDDLE 12 BREAST CALCIFICATION BREAST, LEFT, MIDDLE 12 O'CLOCK, CALCIFICATIONS, STEREOTACTIC CORE NEEDLE BIOPSY: - HYALINIZED FIBROADENOMA - COLUMNAR CELL HYPERPLASIA - COLUMNAR CELL CHANGES - MICROCALCIFICATIONS, COARSE, ASSOCIATED WITH FIBROADENOMA Signing Pathologist Direct Phone Line: [phone] signed by Jackie Maradiaga MD on 05/12/2017 at 12:48 PMIn the sections examined, no atypical hyperplasia or carcinoma is identified.[id number] lesion Left middle 12 o'clock breast calcifications The specimen is received in a formalin-filled container labeled with the patient's information and labeled "left middle 12 o'clock breast calcifications" and consists of multiple yellow-white breast core biopsies ranging in length from 0.6 to 2.5 cm.Ink code: Black.The specimen is submitted entirely in A1 and A2. CG/ewPerformed.[facility], Department of Pathology, [address] [place] [address], [place] [address], Tel MM, DIGITAL, UNILATERAL, CONFER MARTA, MAMMO, LEFT INCLUDING [id number] 11:07:00Left breast calcificationsMRN#: [id number] - MM, DIGITAL, UNILATERAL, CONFER MARTA, MAMMO, [...] MAMMOGRAM FOR MARKER PLACEMENTAwait pathology results. Lizzette Ferraro pth/:05/09/2017 11:07:15 Public Services Librarian: Felicia BELLA(R)(M), [facility] Mammogram BI-RADS: Post- procedure mammogram for marker placement [id number] MM, MAMMO, SPECIMEN, RADIOGRAPH, LEFT 2017-05-09 11:06:00Reason for exam:->Left breast calcificationsMRN#: [id number] - MM, MAMMO, SPECIMEN, RADIOGRAPH, LEFTSPECIMEN LEFT BREAST: 05/09/2017Five stereotactic guided biopsy specimens were imaged for the area of calcifications located in the left breast at 12 o'clock middle depth. IMPRESSION: SPECIMENThe imaged specimens includes the calcifications. Lizzette Corrales M.D. pth/:05/09/2017 11:06:40 Public Services Librarian: Felicia BELLA(R)(M), [facility] [id number] Lumbar Spine 3 ViewsLumbar Spine 3 ViewsSARS-COV 2 AntigenSARS-COV 2 Antigen
--- NOTE | 2022-06-07 12:26 | EDPHYS ---
Physician Documentation [facility] Name: Dena Nance Age: 52 yrs Sex: Female : 1970 Arrival Date: 06/07/2022 Time: 09:36 Bed IW10 Private MD: Anette Benjamin ED Physician Haseeb Chance HPI: 06/07 10:43 This 52 yrs old Female presents to ER via Ambulatory with complaints of rt Abdominal Pain, Abdominal Distention. 10:43 The patient presents with abdominal pain in the lower abdomen. Onset: The rt symptoms/episode began/occurred 8 day(s) ago. The symptoms do not radiate. Associated signs and symptoms: Pertinent negatives: diarrhea. The symptoms are described as achy. Modifying factors: The symptoms are alleviated by nothing, the symptoms are aggravated by. Patient presents to the ED with 8 days of lower abdominal pain. The patient denies aggravating alleviating factors. Pain is aching in nature, nonradiating. Patient does report a history of cirrhosis, Crohn's disease. Denies other acute complaints at this time, symptoms are moderate in severity, no other aggravating or alleviating factors.. Historical: - Allergies: 10:06 NKA; ss - PMHx: 10:06 cirrhosis of liver; Diabetes - NIDDM; fatty liver; gastritis; Diverticulitis; Crohn's ss Disease; Pancreatitis; Colitis; - PSHx: 10:06 Cholecystectomy; hysterectomy; ss - Immunization history:: Client reports receiving the 2nd dose of the Covid vaccine. - Social history:: Smoking status: Patient denies any tobacco usage or history of. - Family history:: not pertinent. ROS: 10:43 Constitutional: Negative for fever, chills, and weight loss, Eyes: Negative for injury, rt pain, redness, and discharge, ENT: Negative for injury, pain, and discharge, Neck: Negative for injury, pain, and swelling, Cardiovascular: Negative for chest pain, palpitations, and edema, Respiratory: Negative for shortness of breath, cough, wheezing, and pleuritic chest pain, MS/Extremity: Negative for injury and deformity, Skin: Negative for injury, rash, and discoloration, Neuro: Negative for headache, weakness, numbness, tingling, and seizure, Psych: Negative for depression, anxiety, suicide ideation, homicidal ideation, and hallucinations. 10:43 Abdomen/GI: Positive for abdominal pain, nausea. Exam: 10:43 Constitutional: This is a well developed, well nourished patient who is awake, alert, rt and in no acute distress. Head/Face: Normocephalic, atraumatic. Eyes: Pupils equal round and reactive to light, extra-ocular motions intact. Lids and lashes normal. Conjunctiva and sclera are non-icteric and not injected. Cornea within normal limits. Periorbital areas with no swelling, redness, or edema. ENT: Nares patent. No nasal discharge, no septal abnormalities noted. Tympanic membranes are normal and external auditory canals are clear. Oropharynx with no redness, swelling, or masses, exudates, or evidence of obstruction, uvula midline. Mucous membranes moist. Chest/axilla: Normal chest wall appearance and motion. Nontender with no deformity. No lesions are appreciated. Cardiovascular: Regular rate and rhythm with a normal S1 and S2. No gallops, murmurs, or rubs. Normal PMI, no JVD. No pulse deficits. Respiratory: Lungs have equal breath sounds bilaterally, clear to auscultation and percussion. No rales, rhonchi or wheezes noted. No increased work of breathing, no retractions or nasal flaring. Skin: Warm, dry with normal turgor. Normal color with no rashes, no lesions, and no evidence of cellulitis. MS/ Extremity: Pulses equal, no cyanosis. Neurovascular intact. Full, normal range of motion. Neuro: Awake and alert, GCS 15, oriented to person, place, time, and situation. Cranial nerves II-XII grossly intact. Motor strength 5/5 in all extremities. Sensory grossly intact. Cerebellar exam normal. Normal gait. Psych: Awake, alert, with orientation to person, place and time. Behavior, mood, and affect are within normal limits. 10:43 Abdomen/GI: Tenderness diffusely, no rebound guarding, distention.. Vital Signs: 10:05 Pulse 81; Resp 16; Pulse Ox 99% ; ss 10:06 BP 107 / 49; Temp 97.6(TE); Weight 70.31 kg; Height 5 ft. 4 in. (162.56 cm); Pain 10/10;ss 10:06 Body Mass Index 26.61 (70.31 kg, 162.56 cm) MDM: 10:19 Patient medically screened. rt 12:25 Differential diagnosis: bowel obstruction, cholecystitis, Cholelithiasis, rt diverticulitis, gastritis, pancreatitis, Pyelonephritis, Ureterolithiasis, urinary tract infection. Data reviewed: vital signs, nurses notes, old medical records. ED course: Presents to the ED with abdominal pain. I saw the patient at triage, placed orders. Patient eloped without informing staff before her work-up could be completed.. 06/07 10:10 Order name: IV Saline Lock rt 06/07 10:10 Order name: Labs collected and sent rt 06/07 10:10 Order name: EKG; Complete Time: 10:10 rt 06/07 10:10 Order name: Urine Dipstick-Ancillary (obtain specimen) rt 06/07 10:10 Order name: Urine Test (obtain specimen) rt 06/07 10:10 Order name: EKG - Nurse/Tech rt Administered Medications: No medications were administered Disposition Summary: 06/07/22 12:25 Discharge Ordered Location: Home rt Problem: new rt Symptoms: are unchanged rt Condition: Undetermined rt Diagnosis - Abdominal pain, unspecified rt Followup: rt - With: Private Physician - When: 2 - 3 days - Reason: Forms: - Medication Reconciliation Form rt - Thank You Letter rt - Antibiotic Education rt - Prescription Opioid Use rt Signatures: Dispatcher [employer] Yeni Rob, SHADE RN Haseeb Chance MD MD rt
--- NOTE | 2022-06-07 12:26 | ER ---
[facility] Name: Dena Nance Age: 52 yrs Sex: Female : 1970 Arrival Date: 06/07/2022 Time: 09:36 Bed IW10 Private MD: Anette Benjamin Diagnosis: Abdominal pain, unspecified Presentation: 06/07 10:05 Chief complaint: Patient states: abd pain that began 8 days ago. Coronavirus screen: ss Client denies travel out of the [place] in the last 14 days. Ebola Screen: Patient denies exposure to infectious person. Patient denies travel to an Ebola-affected area in the 21 days before illness onset. Initial Sepsis Screen: Does the patient meet any 2 criteria? No. Patient's initial sepsis screen is negative. Does the patient have a suspected source of infection? No. Patient's initial sepsis screen is negative. Risk Assessment: Do you want to hurt yourself or someone else? Patient reports no desire to harm self or others. Onset of symptoms was May 30, 2020. 10:05 Method Of Arrival: Ambulatory ss 10:05 Acuity: MARIANA 3 ss Historical: - Allergies: 10:06 NKA; ss - PMHx: 10:06 cirrhosis of liver; Diabetes - NIDDM; fatty liver; gastritis; Diverticulitis; Crohn's ss Disease; Pancreatitis; Colitis; - PSHx: 10:06 Cholecystectomy; hysterectomy; ss - Immunization history:: Client reports receiving the 2nd dose of the Covid vaccine. - Social history:: Smoking status: Patient denies any tobacco usage or history of. - Family history:: not pertinent. Vital Signs: 10:05 Pulse 81; Resp 16; Pulse Ox 99% ; ss 10:06 BP 107 / 49; Temp 97.6(TE); Weight 70.31 kg; Height 5 ft. 4 in. (162.56 cm); Pain 10/10;ss 10:06 Body Mass Index 26.61 (70.31 kg, 162.56 cm) ED Course: 09:36 Patient arrived in ED. am2 09:37 Anette Benjamin MD is Private Physician. am2 09:55 Haseeb Chance MD is Attending Physician. rt 10:06 Triage completed. ss 10:06 Arm band placed on right wrist. ss 12:35 No provider procedures requiring assistance completed. Patient did not have IV access ss during this emergency room visit. Administered Medications: No medications were administered Outcome: 12:25 Discharge ordered by . rt 12:36 Discharged to home ss 12:36 Discharge instructions given to Pt left prior to receiving discharge instructions 12:39 Patient left the ED. ss Signatures: Yeni Granados RN RN Liza Vásquez [facility] Haseeb Chance MD MD rt
[2022-06-07 13:45] VITALS: O2SAT 99
[2022-06-07 13:52] VITALS: BP 107/49; TEMP 97.6
== END 2022-06-07 12:39 | disposition home or self-care (01) ==
LOC: ER 09:33
DX: R10.30 Lower abdominal pain, unspecified (principal); R11.0 Nausea
CPT/HCPCS: 99281

== ENCOUNTER 2022-06-22 20:25 | Emergency (ER) | payer OTHER ==
--- OUTSIDE RECORDS SUMMARY | 2022-06-22 20:36 | XMS REPORT | Continuity of Care Document ---
:1970 Author Organization [facility] t Address [facility] [place] [address] Chang [address] [place] [id number] Care Team Providers Name Role Phone SHARPLESS Primary Care Physician Unavailable Anette Haney Attending Clinician Unavailable Yani COVARRUBIAS, Rhonda Lopez Attending Clinician Kadeem Minor MD Attending Clinician Mary Gilliam MD Attending Clinician [phone] MARY GILLIAM Attending Clinician UnavailTrina Lozada MD Attending Clinician TRINA PEREZ Attending Clinician Unavailable Yudith Alonzo MD Attending Clinician Unavailable Aracely COVARRUBIAS, William Garcia Attending Clinician Luís Greer Attending Clinician JAVY Attending Clinician Unavailable RONALD SOMMER Attending Clinician Unavailable ADITYA CORRALES Attending Clinician Unavailable TRINA PEREZ Admitting Clinician Unavailable JAVY Admitting Clinician Unavailable RONALD SOMMER Admitting Clinician Unavailable Payers Payer Name Policy Type Policy Number Effective Date Expiration Date Edi MEMBRENO [id number] 2016 HEALTH CHOICE 00:00:00 O [facility] PCP Ambetter from [id number] 2018 Common Spi rit [facility] 00:00:00 - [facility] Ambetter from [id number] 2018 Common Spi rit [facility] 00:00:[address] - [facility] Ambetter from [id number] 2018 Common Spi rit [facility] 00:00:00 - [facility] Problems Condition Condition Condition Status [...] lic 00:00: Medical steatohepa steatohepa 00 Ce nter titis) titis) Encounter Encounter Disease Active [facility] [...] R10.10=UPP 1-10 16:11:00 l ER ER 00:00: [place] ABDOMINAL ABDOMINAL 00 PAIN, PAIN, UNSPECI UNSPECI Active 05/09/2021 [facility] DX: DX: Diagnosis Active 2019-062020-04-11 Mem oria R10.10, R10.10, 0-07 09:14:00 l R14.0 R14.0 00:00: [place] Active 00 04/05/2020 [facility] [place] [id number] Diabetic Problem Comm on polyneurop Spirit athy - [facility] associated [facility] with type [facility] 2 diabetes Medica l mellitus Center [id number] Depression Problem Co mmon with Spirit anxiety - [facility] [id number] 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 diabetes - [facility]aj Center [id number] Seasonal Problem Comm on allergies Spirit - [facility] [id number] Fatty Problem Common liver Spirit - [facility] [id number] Irritable Problem Com mon bowel Spirit syndrome - [facility] with [facility] constipati [facility] [id number] Symptomati Problem Co mmon c spider Spirit varicose - [facility] vein [facility] [id number] Panic Problem Common disorder Spirit [episodic - [facility] paroxysmal [facility] anxiety] [facility] [id number] Acute Problem Common stress Spirit reaction - [facility] [id number] Closed Problem Common nondisplac Spirit ed - [facility] fracture [facility] of phalanx [facility] of thumb, Medical unspecifie Center d laterality , unspecifie d phalanx, initial encounter [id number] Gastroesop Problem Co mmon hageal Spirit reflux - [facility] disease, esophagiti [facility] s presence Medica l not Center specified [id number] Diverticul Problem Co mmon osis Spirit - [facility] [id number] Other Problem Common chronic Spirit gastritis - [facility] without 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 - [facility] [id number] Gastro-eso Problem Co mmon phageal Spirit reflux - [facility] disease [facility] without [facility] esophagiti Medica l s Center [id number] Crohn's Problem Common disease of Spirit [facility] [id number] Memory Problem Common deficit Spirit - [facility] [id number] Thrombocyt Problem Co mmon openia [facility] - [facility] [id number] Other Problem Common chronic Spirit pain - [facility] [id number] Unsteady Problem Commo n gait [facility] [id number] Arthritis Problem Co mmon [id number] of left Spirit hip - [facility] Allergies, Adverse Reactions, Alerts Allergy Allergy Status Severity Reaction(s) Onset Inactive Treating Comm ents Source Name Type Date Date Clinician NO KNOWN Allergy Active [facility] Family History Family Member Diagnosis Comments Start Date Stop Date Source Natural brother Diabetes [facility] Natural father Diabetes [facility] Natural mother Diabetes [facility] Natural sister Diabetes [facility] Social History Social Habit Start Date Stop Date Quantity Comments Source History of Common Spirit - Tobacco Use [facility] Sex Assigned At Common Sp cordelia - [facility] Exposure to 2022-05-18 2022-05-28 Not sure [facility] e SARS-CoV-2 00:00:00 08:30:00 of Medicine (event) Alcohol intake 2022-03-08 2022-03-08 Ex-drinker [facility] 00:00:00 00:00:00 (finding) Medical Center History [facility] 2022-02-25 2022-02-25 0 [facility] Physical Activity 00:00:00 00:00:00 of Medi cine DPW History [facility] 2022-02-25 2022-02-25 0 [facility] Physical Activity 00:00:00 00:00:00 of Medi cine MPS Tobacco use and 2017-05-09 2017-05-09 Never used [facility] exposure 00:00:00 00:00:00 Medical Center Smoking Status Start Date Stop Date Source Never smoked tobacco [facility] ege of Medicine Medications Ordered Filled Start Stop Current Ordering Indication Dosage Frequency Signature Comments Components Source Medication Medication Date Date Medication? Clinician (SIG) Name Name metformin 2021-06 Yes 500mg Take 500 [place] [facility] (GLUCOPHAGE 2-05 mg by College ) 500 MG 15:43: mouth four of tablet 47 times Medicin daily. e sertraline 2021-06 Yes 50mg Take 50 mg [facility] (ZOLOFT) 25 2-05 by mouth [place] [facility] MG tablet 15:43: daily. of 47 Medicin e gabapentin 2021-06 Yes 300mg Take 300 [facility] (NEURONTIN) 2-05 mg by [place] 300 MG 15:43: mouth 3 of capsule [...] 1 [facility] oxide 2-05 Tablet by [place] (MAG-OX) 00:00: mouth two of 400 MG 00 times Medicin tablet daily. e linaCLOtide 2021-06 Yes Take 1 [facility] (LINZESS) 2-05 capsule by [place] [facility] 72 MCG CAPS 00:00: mouth of 00 every Medicin evening. e metformin 2021-06- No 2 tablet [place] (GLUCOPHAGE 08-01 with a [facility] ) 500 MG 18:14: 00:00 meal of tablet 41 :00 Medicin e Cholecalcif 2021-06- No 50ug Take 50 [facility] cee 08-01 mcg by [place] (VITAMIN D) 18:14: 00:00 mouth of 50 MCG 26 :00 daily. Medicin (1999 UT) e CAPS metformin 2021-06 Yes 500mg Take 500 [place] (GLUCOPHAGE 2-02 mg by [place] ) 500 MG 14:53: mouth four of tablet 49 times Medicin daily. e sertraline 2021-06 Yes 50mg Take 50 mg [facility] (ZOLOFT) 25 2-02 by mouth [place] [facility] MG tablet 14:53: daily. of 49 Medicin e gabapentin 2021-06 Yes 300mg Take 300 [facility] (NEURONTIN) 2-02 mg by [place] 300 MG 14:53: mouth 3 of capsule 49 times Medicin daily. e famotidine 2021-06 Yes 40mg Take 40 mg [facility] (PEPCID) 40 2-02 by mouth [place] [facility] MG tablet 14:53: daily. of 49 Medicin e dicyclomine 2021-06 Yes 20mg Take 20 mg [facility] (BENTYL) 20 2-02 by mouth [place] [facility] MG tablet 14:53: every 6 of 49 hours. Medicin e atorvastati 2021-06 Yes [id number] 20mg Take 1 [facility] n (LIPITOR) 2-02 Tablet by Col lege 20 MG 00:00: mouth of tablet 00 daily. Medicin e atorvastati 2021-06 Yes [id number] 20mg Take 1 [facility] n (LIPITOR) 2-02 Tablet by Col lege 20 MG 00:00: mouth of tablet 00 daily. Medicin e famotidine 2021-06 Yes 40mg Take 40 mg [facility] (PEPCID) 40 07-28 by mouth [place] [facility] MG tablet 08:51: daily. of 40 Medicin e dicyclomine 2021-06 Yes 20mg Take 20 mg [facility] (BENTYL) 20 - by mouth [place] [facility] MG tablet 08:51: every 6 of 40 hours. Medicin e metformin 2021-06 Yes 500mg Take 500 [place] (GLUCOPHAGE 1-29 mg by [place] ) 500 MG 08:51: mouth four of tablet 40 times Medicin daily. e sertraline 2021-06 Yes 50mg Take 50 mg [facility] (ZOLOFT) 25 07-28 by mouth [place] [facility] MG tablet 08:51: daily. of 40 Medicin e gabapentin 2021-06 Yes 300mg Take 300 [facility] (NEURONTIN) 1-29 mg by [place] 300 MG 08:51: mouth 3 of capsule [...] 0.5MG 00:00: 00 Insulin 2021- No Inject [facility] Lispro 03-22 into the College (HUMALOG 14:17: 00:00 skin. of KWIKPEN) 31 :00 Medicin 200 UNIT/ML e SOPN glimepiride 2021- No 4mg Take 4 mg [facility] (AMARYL) 4 03-22 by mouth. Col lege MG tablet 14:12: 00:00 of 23 :00 Medicin e Cholecalcif 0 Yes 50ug Take 50 [place] cee 9-23 mcg by [place] (VITAMIN D) 13:29: mouth of 50 MCG 15 daily. Medicin (1999) e CAPS Cholecalcif 0 Yes 50ug Take 50 [place] cee 9-23 mcg by [place] (VITAMIN D) 13:29: mouth of 50 MCG 15 daily. Medicin (1999) e CAPS metformin 0 Yes 500mg Take 500 [place] (GLUCOPHAGE 9-23 mg by [place] ) 500 MG 13:17: mouth four of tablet 58 times Medicin daily. e sertraline 0 Yes 50mg Take 50 mg [facility] (ZOLOFT) 25 23 by mouth [place] [facility] MG tablet 13:17: daily. of 58 Medicin e gabapentin 0 Yes 300mg Take 300 [facility] (NEURONTIN) 9-23 mg by [place] 300 MG 13:17: mouth 3 of capsule 58 times Medicin daily. e famotidine 0 Yes 40mg Take 40 mg [facility] (PEPCID) 40 -23 by mouth [place] [facility] MG tablet 13:17: daily. of 58 Medicin e dicyclomine 0 Yes 20mg Take 20 mg [facility] (BENTYL) 20 - by mouth [place] [facility] MG tablet 13:17: every 6 of 58 hours. Medicin e Continuous 0 Yes Use as [facility] Blood Gluc 03-22 directed Colle ge Sensor 00:00: to check of (FREESTYLE 00 blood Medicin YAZMIN 2 sugars for e SENSOR) 14 days [facility] Insulin Yes Take up to [facility] Lispro 9-23 15 units College (HUMALOG 00:00: as of KWIKPEN) 00 directed Medicin 200 UNIT/ML prior to e SOPN meals Continuous Yes Use as [facility] Blood Gluc 9-23 directed Colle ge Sensor 00:00: to check of (FREESTYLE 00 blood Medicin YAZMIN 2 sugars for e SENSOR) 14 days [facility] Insulin Yes Take up to [facility] Lispro 9-23 15 units College (HUMALOG 00:00: as of KWIKPEN) 00 directed Medicin 200 UNIT/ML prior to e SOPN meals Continuous Yes Use as [facility] Blood Gluc 9-23 directed Colle ge Sensor 00:00: to check of (FREESTYLE 00 blood Medicin YAZMIN 2 sugars for e SENSOR) 14 days [facility] Insulin Yes Take up to [facility] Lispro 9-23 15 units College (HUMALOG 00:00: as of IK) 00 directed Medicin 200 UNIT/ML prior to e SOPN meals Continuous Yes Use as [facility] Blood Gluc 9-23 directed Colle ge Sensor 00:00: to check of (FREESTYLE 00 blood Medicin YAZMIN 2 sugars for e SENSOR) 14 days [facility] Insulin Yes Take up to [facility] Lispro 9-23 15 units College (HUMALOG 00:00: as of KWIKPEN) 00 directed Medicin 200 UNIT/ML prior to e SOPN meals metFORMIN Yes 500mg Take [address] (GLUCOPHAGE 9-12 [facility] by [facility] ) 500 MG 08:25: mouth 2 Medica l tablet 51 (two) Center times daily with breakfast and dinner. glimepiride Yes 4mg Take [address] (AMARYL) 4 9-12 by mouth 2 [place] es MG tablet 08:25: (two) Medical 51 times Center daily before meals. empaglifloz Yes 10mg QD Take [address] in 9-12 by mouth [facility] (JARDIANCE) 08:25: daily. Medi michele 10 mg 51 Center tablet sertraline Yes 50mg Take [address] (ZOLOFT) 50 9-12 by mouth [facility] s MG tablet 08:25: Daily Medical 51 (1800) . Center gabapentin 2021-0 Yes 300mg QD Take [address] (NEURONTIN) 9-12 [facility] 300 MG 08:25: mouth Medical capsule 51 every Center evening. insulin 2021-0 Yes 86U QD Inject 86 [facility] t degludec 9-12 Units [facility] (TRESIBA 08:25: subcutaneo Med ical U-100 51 usly every Center INSULIN morning. SUBQ) metFORMIN 2021-0 Yes 500mg Take [address] (GLUCOPHAGE 9-12 mg by [facility] ) 500 MG 08:25: mouth 2 Medica l tablet 51 (two) Center times daily with breakfast and dinner. glimepiride 2021-0 Yes 4mg Take [address] (AMARYL) 4 9-12 by mouth 2 [place] es MG tablet 08:25: (two) Medical 51 times Center daily before meals. empaglifloz 2021-0 Yes 10mg QD Take [address] in 9-12 by mouth [facility] (JARDIANCE) 08:25: daily. Medi michele 10 mg 51 Center tablet sertraline 0 Yes 50mg Take [address] (ZOLOFT) 50 9-12 by mouth Luke s MG tablet 08:25: Daily Medical 51 (1800) . Center gabapentin 2021-0 Yes 300mg QD Take [address] (NEURONTIN) 9-12 [facility] 300 MG 08:25: mouth Medical capsule 51 every Center evening. insulin 2021-0 Yes 86U QD Inject 86 [facility] degludec 9-12 [facility] (TRESIBA 08:25: subcutaneo Med ical U-100 51 usly every Center INSULIN morning. SUBQ) metformin 2021-0 Yes 2 tablet [facility] (GLUCOPHAGE 8-30 with a Colleg e ) 500 MG 11:52: meal of tablet 46 Medicin e glimepiride 2021-0 Yes 4mg Take 4 mg [facility] (AMARYL) 4 8-30 by mouth. [place] [facility] MG tablet 11:52: of 46 Medicin e metformin 2021-0 Yes 2 tablet [facility] (GLUCOPHAGE 8-30 [...] 46 hours. Medicin e Insulin Yes Inject [facility] Lispro 8-30 into the College (HUMALOG 11:52: skin. of KWIKPEN) 46 Medicin 200 UNIT/ML e SOPN metformin Yes 2 tablet [facility] (GLUCOPHAGE 8-30 with a Colleg e ) 500 MG 11:52: meal of tablet 46 Medicin e metformin Yes 500mg Take 500 [place] (GLUCOPHAGE 8-30 mg by [place] ) 500 MG 11:34: mouth four of tablet 04 times Medicin daily. e sertraline Yes 50mg Take 50 mg [facility] (ZOLOFT) 25 8-30 by mouth [place] [facility] MG tablet 11:34: daily. of 04 Medicin e gabapentin Yes 300mg Take 300 [facility] (NEURONTIN) 8-30 mg by [place] 300 MG 11:34: mouth 3 of capsule 04 times Medicin daily. e Cholecalcif Yes 50ug Take 50 [place] cee 8-30 mcg by [place] (VITAMIN D) 11:34: mouth of 50 MCG 04 daily. Medicin (1999) e CAPS alprazolam Yes [facility] (XANAX) 0.5 8-29 College MG tablet 00:00: of 00 Medicin e alprazolam Yes TAKE 1 [facility] (XANAX) 0.5 8-29 TABLET BY Col lege MG tablet 00:00: MOUTH ONCE of 00 DAILY Medicin NEEDED FOR e ANXIETY alprazolam Yes [facility] (XANAX) 0.5 8-29 College MG tablet 00:00: of 00 Medicin e alprazolam Yes [facility] (XANAX) 0.5 8-29 College MG tablet 00:00: of 00 Medicin e alprazolam Yes TAKE 1 [facility] (XANAX) 0.5 8-29 TABLET BY Col lege MG tablet 00:00: MOUTH ONCE of 00 DAILY Medicin NEEDED FOR e ANXIETY alprazolam Yes [facility] (XANAX) 0.5 8-29 College MG tablet 00:00: of 00 Medicin e alprazolam 0 Yes [facility] (XANAX) 0.5 8-29 College MG tablet 00:00: of 00 Medicin e alprazolam Yes TAKE 1 [facility] (XANAX) 0.5 8-29 TABLET BY Col lege MG tablet 00:00: MOUTH ONCE of 00 DAILY Medicin NEEDED FOR e ANXIETY ALPRAZolam ALPRAZolam No ALPRAZolam 0.5 MG 0.5 MG 8-29 0.5 MG 00:00: 00 ALPRAZolam ALPRAZolam 0 No ALPRAZolam 0.5 MG 0.5 MG 8-29 0.5 MG 00:00: 00 ALPRAZolam ALPRAZolam 0 No ALPRAZolam 0.5 MG 0.5 MG 8-29 0.5 MG 00:00: 00 ALPRAZolam ALPRAZolam 0 No ALPRAZolam 0.5 MG 0.5 MG 8-29 0.5 MG 00:00: 00 ALPRAZolam ALPRAZolam 0 No ALPRAZolam 0.5 MG 0.5 MG 8-29 0.5 MG 00:00: 00 ALPRAZolam ALPRAZolam 0 No ALPRAZolam 0.5 MG 0.5 MG 8-29 0.5 MG 00:00: 00 ALPRAZolam ALPRAZolam 2021-0 No ALPRAZolam 0.5 MG 0.5 MG 8-29 0.5 MG 00:00: 00 ALPRAZolam ALPRAZolam 0 No ALPRAZolam 0.5 MG 0.5 MG 8-29 0.5 MG 00:00: 00 ALPRAZolam ALPRAZolam 0 No ALPRAZolam 0.5 MG 0.5 MG 8-29 0.5 MG 00:00: 00 ALPRAZolam ALPRAZolam 0 No ALPRAZolam 0.5 MG 0.5 MG 8-29 0.5 MG 00:00: 00 ALPRAZolam ALPRAZolam 2021-0 No ALPRAZolam 0.5 MG 0.5 MG 8-29 0.5 MG 00:00: 00 ALPRAZolam ALPRAZolam 2021-0 No ALPRAZolam 0.5 MG 0.5 MG 8-29 0.5 MG 00:00: 00 alprazolam 2021-0 2021- No TAKE 1 [facility] (XANAX) 0.5 8-29 05-31 TABLET BY Co llege MG tablet 00:00: [...] MG MG 00:00: 40 MG 00 trazodone 0 Yes TAKE 1 [facility] (DESYREL) 8-03 TABLET BY Colle ge 50 MG 00:00: MOUTH ONCE of tablet 00 DAILY AT Medicin BEDTIME e NEEDED trazodone 0 Yes TAKE 1 [facility] (DESYREL) 8-03 TABLET BY Colle ge 50 MG 00:00: MOUTH ONCE of tablet 00 DAILY AT Medicin BEDTIME e NEEDED trazodone 2021-0 Yes TAKE 1 [facility] (DESYREL) 8-03 TABLET BY Colle ge 50 [...] AT Medicin BEDTIME e NEEDED ALPRAZolam ALPRAZolam No ALPRAZolam 0.5 MG 0.5 MG 7-19 0.5 MG 00:00: 00 ALPRAZolam ALPRAZolam 0 No ALPRAZolam 0.5 MG 0.5 MG 7-19 0.5 MG 00:00: 00 ALPRAZolam ALPRAZolam No ALPRAZolam 0.5 MG 0.5 MG 7-19 0.5 MG 00:00: 00 GOLYTELY Yes TAKE [facility] 236 g 7-08 4000ML BY College suspension 00:00: MOUTH of 00 DIRECTED Medicin ONE e DOSE GOLYTELY 0 Yes TAKE [facility] 236 g 7-08 4000ML BY College suspension 00:00: MOUTH of 00 DIRECTED Medicin ONE e DOSE GOLYTELY 0 Yes TAKE [facility] 236 g 7-08 4000ML BY College suspension 00:00: MOUTH of 00 DIRECTED Medicin ONE e DOSE GOLYTELY 2021- No TAKE [facility] 236 g 7-08 12- 4000ML BY College suspension 00:00: 00:00 MOUTH of 00 :00 DIRECTED Medicin ONE e DOSE TRESIBA Yes INJECT 84 [facility] FLEXTOUCH [...] 6-01 0.5 MG 00:00: 00 ALPRAZolam ALPRAZolam No QD ALPRAZolam 0.5 MG 0.5 MG 6-01 0.5 MG 00:00: 00 ALPRAZolam ALPRAZolam No QD ALPRAZolam 0.5 MG 0.5 MG 6-01 0.5 MG 00:00: 00 ALPRAZolam ALPRAZolam 0 No ALPRAZolam 0.5 MG 0.5 MG 4-26 0.5 MG 00:00: 00 ALPRAZolam ALPRAZolam No ALPRAZolam 0.5 MG 0.5 MG 4-26 0.5 MG 00:00: 00 ALPRAZolam ALPRAZolam No ALPRAZolam 0.5 MG 0.5 MG 4-26 0.5 MG 00:00: 00 ALPRAZolam ALPRAZolam No ALPRAZolam 0.5 MG 0.5 MG 4-26 0.5 MG 00:00: 00 Losartan Losartan No 1{table QD Losartan Potassium-H Potassium-H 4-20 [...] MG MG 00 50-12.5 MG Losartan Losartan 2-0 No 1{table QD Losartan Potassium-H Potassium-H 4-20 t} Potassium- CTZ 50-12.5 CTZ 50-12.5 00:00: HCTZ MG MG 00 50-12.5 MG Losartan Losartan 2-0 No 1{table QD Losartan Potassium-H Potassium-H 4-20 t} Potassium- CTZ 50-12.5 CTZ 50-12.5 00:00: HCTZ MG MG 00 50-12.5 MG Losartan Losartan 2-0 No 1{table QD Losartan Potassium-H Potassium-H 4-20 t} Potassium- CTZ 50-12.5 CTZ 50-12.5 00:00: HCTZ MG MG 00 50-12.5 MG HumaLOG HumaLOG 2-0 No HumaLOG KwikPen 200 KwikPen 200 4-12 KwikPen UNIT/ML UNIT/ML 00:00: 200 00 UNIT/ML HumaLOG HumaLOG 2-0 No HumaLOG KwikPen 200 KwikPen 200 4-12 KwikPen UNIT/ML UNIT/ML 00:00: 200 00 UNIT/ML ALPRAZolam ALPRAZolam 2-0 No ALPRAZolam 0.5 MG 0.5 MG 3-23 0.5 MG 00:00: 00 ALPRAZolam ALPRAZolam 2-0 No ALPRAZolam 0.5 MG 0.5 MG 3-23 0.5 MG 00:00: 00 ALPRAZolam ALPRAZolam 2-0 No ALPRAZolam 0.5 MG 0.5 MG 3-23 [...] 2-16 0.5 MG 00:00: 00 ALPRAZolam ALPRAZolam 2-0 No ALPRAZolam 0.5 MG 0.5 MG 2-16 0.5 MG 00:00: 00 ALPRAZolam ALPRAZolam 2-0 No ALPRAZolam 0.5 MG 0.5 MG 2-16 0.5 MG 00:00: 00 ALPRAZolam ALPRAZolam 2021-0 No ALPRAZolam 0.5 MG 0.5 MG 2-16 0.5 MG 00:00: 00 predniSONE predniSONE 2020-1 1- No QD predniSONE 10 MG 10 MG 07-21 10 MG 00:00: 00:00 00 :00 predniSONE predniSONE 2020-06- No QD predniSONE 10 MG 10 MG 07-21 10 MG 00:00: 00:00 00 :00 Azithromyci Azithromyci 2020-06- No QD Azithromyc n 250 MG n 250 MG 07-21 in 250 MG 00:00: 00:00 00 :00 ALPRAZolam ALPRAZolam 2020-06 No ALPRAZolam 0.5 MG 0.5 MG 1-18 0.5 MG 00:00: 00 ALPRAZolam ALPRAZolam 2020-06 No ALPRAZolam 0.5 MG 0.5 MG 1-18 0.5 MG 00:00: 00 FreeStyle FreeStyle 2020-06 No FreeStyle Yazmin 14 Yazmin 14 0-07 Yazmin 14 Day Sensor Day Sensor 00:00: Day Sensor - - 00 - FreeStyle FreeStyle 2020-06 No FreeStyle Yazmin 2 Yazmin 2 0-07 Yazmin 2 Ronks - Ronks - 00:00: [place] - 00 Neomycin-Po Neomycin-Po 2020-06 No 4{drops BID Neomycin-P lymyxin-HC lymyxin-HC 0-07 _into_a olymyxin-H 3.543824-4 3.569280-1 00:00: ffected C 00 _ear} 3.5- 1 FreeStyle FreeStyle 2020-06 No FreeStyle Yazmin 2 Yazmin 2 0-07 Yazmin 2 Ronks - Ronks - 00:00: [place] - 00 FreeStyle FreeStyle 2020-06 No FreeStyle Yazmin 14 Yazmin 14 0-07 Yazmin 14 Day Sensor Day Sensor 00:00: Day Sensor - - 00 - Neomycin-Po Neomycin-Po 2020-06 No 4{drops BID Neomycin-P lymyxin-HC lymyxin-HC 0-07 _into_a olymyxin-H 3.5-37641-8 3.5-89849-6 00:00: ffected C 00 _ear} 3.5-64869- 1 Neomycin-Po Neomycin-Po 2020-06 No 4{drops BID Neomycin-P lymyxin-HC lymyxin-HC 0-07 _into_a olymyxin-H 3.5-18430-8 3.5-80830-3 00:00: ffected C 00 _ear} 3.5-36637- 1 FreeStyle FreeStyle 2020-06 No FreeStyle Yazmin 14 Yazmin 14 0-07 Yazmin 14 Day Sensor Day Sensor 00:00: Day Sensor - - 00 - FreeStyle FreeStyle 2020-06 No FreeStyle Yazmin 2 Yazmin 2 0-07 Yazmin 2 Ronks - Ronks - 00:00: [place] - 00 FreeStyle FreeStyle 2020-06 No FreeStyle Yazmin 14 Yazmin 14 0-07 Yazmin 14 Day Sensor Day Sensor 00:00: Day Sensor - - 00 - Neomycin-Po Neomycin-Po 2020-06 No 4{drops BID Neomycin-P lymyxin-HC lymyxin-HC 0-07 _into_a olymyxin-H 3.5-84922-8 3.5-01270-2 00:00: ffected C 00 _ear} 3.5-49881- 1 FreeStyle FreeStyle 2020-06 No FreeStyle Yazmin 2 Yazmin 2 0-07 Yazmin 2 Ronks - Ronks - 00:00: [place]ks - 00 FreeStyle FreeStyle 2020-06 No FreeStyle Yazmin 14 Yazmin 14 0-07 Yazmin 14 Day Sensor Day Sensor 00:00: Day Sensor - - 00 - Neomycin-Po Neomycin-Po 2020-06 No 4{drops BID Neomycin-P lymyxin-HC lymyxin-HC 0-07 _into_a olymyxin-H 3.5-33542-2 3.5-84082-0 00:00: ffected C 00 _ear} 3.5-20167- 1 FreeStyle FreeStyle 2020-06 No FreeStyle Yazmin 2 Yazmin 2 0-07 Yazmin 2 Ronks - Ronks - 00:00: [place] - 00 FreeStyle FreeStyle 2020-06 No FreeStyle Yazmin 14 Yazmin 14 0-07 Yazmin 14 Day Sensor Day Sensor 00:00: Day Sensor - - 00 - Neomycin-Po Neomycin-Po 2020-06 No 4{drops BID Neomycin-P lymyxin-HC lymyxin-HC 0-07 _into_a olymyxin-H 3.5-71934-9 3.5-44903-8 00:00: ffected C 00 _ear} 3.5-79354- 1 FreeStyle FreeStyle 2020-06 No FreeStyle Yazmin 2 Yazmin 2 0-07 Yazmin 2 Ronks - Ronks - 00:00: [place] - 00 FreeStyle FreeStyle 2020-06 No FreeStyle Yazmin 14 Yazmin 14 0-07 Yazmin 14 Day Sensor Day Sensor 00:00: Day Sensor - - 00 - FreeStyle FreeStyle 2020-06 No FreeStyle Yazmin 2 Yazmin 2 0-07 Yazmin 2 [place] - Ronks - 00:00: [place] - 00 Neomycin-Po Neomycin-Po 2020-06 No 4{drops BID Neomycin-P lymyxin-HC lymyxin-HC 0-07 _into_a olymyxin-H 3.5-88269-9 3.5-86405-1 00:00: ffected C 00 _ear} 3.5-20464- 1 FreeStyle FreeStyle 2020-06 No FreeStyle Yazmin 2 Yazmin 2 0-07 Yazmin 2 Ronks - Ronks - 00:00: [place] - 00 FreeStyle FreeStyle 2020-06 No FreeStyle Yazmin 14 Yazmin 14 0-07 Yazmin 14 Day Sensor Day Sensor 00:00: Day Sensor - - 00 - Neomycin-Po Neomycin-Po 2020-06 No 4{drops BID Neomycin-P lymyxin-HC lymyxin-HC 0-07 _into_a olymyxin-H 3.5-47273-7 3.5-76707-6 00:00: ffected C 00 _ear} 3.5-80857- 1 FreeStyle FreeStyle 2020-06 No FreeStyle Yazmin 2 Yazmin 2 0-07 Yazmin 2 Ronks - Ronks - 00:00: [place] - 00 FreeStyle FreeStyle 2020-06 No FreeStyle Yazmin 14 Yazmin 14 0-07 Yazmin 14 Day Sensor Day Sensor 00:00: Day Sensor - - 00 - Neomycin-Po Neomycin-Po 2020-06 No 4{drops BID Neomycin-P lymyxin-HC lymyxin-HC 0-07 _into_a olymyxin-H 3.5-06881-4 3.5-80342-7 00:00: ffected C 00 _ear} 3.5-22243- 1 FreeStyle FreeStyle 2020-06 No FreeStyle Yazmin 14 Yazmin 14 0-07 Yazmin 14 Day Sensor Day Sensor 00:00: Day Sensor - - 00 - FreeStyle FreeStyle 2020-06 No FreeStyle Yazmin 2 Yazmin 2 0-07 Yazmin 2 Ronks - Ronks - 00:00: Ronks - 00 Neomycin-Po Neomycin-Po 2020-06 No 4{drops BID Neomycin-P lymyxin-HC lymyxin-HC 0-07 _into_a olymyxin-H 3.5-17977-9 3.5-47667-1 00:00: ffected C 00 _ear} 3.5-06157- 1 FreeStyle FreeStyle 2020-06 No FreeStyle Yazmin 14 Yazmin 14 0-07 Yazmin 14 Day Sensor Day Sensor 00:00: Day Sensor - - 00 - FreeStyle FreeStyle 2020-06 No FreeStyle Yazmin 2 Yazmin 2 0-07 Yazmin 2 Ronks - Ronks - 00:00: Ronks - 00 Neomycin-Po Neomycin-Po 2020-06 No 4{drops BID Neomycin-P lymyxin-HC lymyxin-HC 0-07 _into_a olymyxin-H 3.5-93804-0 3.5-32246-1 00:00: ffected C 00 _ear} 3.5-39861- 1 Neomycin-Po Neomycin-Po 2020-06 No 4{drops BID Neomycin-P lymyxin-HC lymyxin-HC 0-07 _into_a olymyxin-H 3.5-47383-5 3.5-12825-7 00:00: ffected C 00 _ear} 3.5-88846- 1 FreeStyle FreeStyle 2020-06 No FreeStyle Yazmin 2 Yazmin 2 0-07 Yazmin 2 Ronks - Ronks - 00:00: Ronks - 00 FreeStyle FreeStyle 2020-06 No FreeStyle Yazmin 14 Yazmin 14 0-07 Yazmin 14 Day Sensor Day Sensor 00:00: Day Sensor - - 00 - Neomycin-Po Neomycin-Po 2020-06 No 4{drops BID Neomycin-P lymyxin-HC lymyxin-HC 0-07 _into_a olymyxin-H 3.5-69044-8 3.5-08698-8 00:00: ffected C 00 _ear} 3.5-58007- 1 FreeStyle FreeStyle 2020-06 No FreeStyle Yazmin 2 Yazmin 2 0-07 Yazmin 2 Ronks - Ronks - 00:00: Ronks - 00 FreeStyle FreeStyle 2020-06 No FreeStyle Yazmin 14 Yazmin 14 0-07 Yazmin 14 Day Sensor Day Sensor 00:00: Day Sensor - - 00 - Neomycin-Po Neomycin-Po 2020-06 No 4{drops BID Neomycin-P lymyxin-HC lymyxin-HC 0-07 _into_a olymyxin-H 3.5-36722-7 3.5-44085-2 00:00: ffected C 00 _ear} 3.5-26662- 1 FreeStyle FreeStyle 2020-06 No FreeStyle Yazmin 2 Yazmin 2 0-07 Yazmin 2 Ronks - Ronks - 00:00: Ronks - 00 FreeStyle FreeStyle 2020-06 No FreeStyle Yazmin 14 Yazmin 14 0-07 Yazmin 14 Day Sensor Day Sensor 00:00: Day Sensor - - 00 - Neomycin-Po Neomycin-Po 2020-06 No 4{drops BID Neomycin-P lymyxin-HC lymyxin-HC 0-07 _into_a olymyxin-H 3.5-92574-8 3.5-49394-1 00:00: ffected C 00 _ear} 3.5- 1 FreeStyle FreeStyle 2020-06 No FreeStyle Yazmin 2 Yazmin 2 0-07 Yazmin 2 Ronks - Ronks - 00:00: Ronks - 00 FreeStyle FreeStyle 2020-06 No FreeStyle Yazmin 14 Yazmin 14 0-07 Yazmin 14 Day Sensor Day Sensor 00:00: Day Sensor - - 00 - Sertraline Sertraline 2018-06 Yes Na Haney 2 tablets [facility] HCl HCl 2-24 [facility] 00:[facility]: - [facility] Fluticasone Fluticasone 2018-06 No 1{spray QD [...] MG tablet 10:01: daily. [facility]ica [facility] [place] empaglifloz 2016-06 Yes 10mg QD Take [address] [facility]10 [facility] ([facility] 10:01: daily. Medi michele 10 mg 13 Center tablet sertraline 2016-06 Yes 50mg QD Take [address] (ZOLOFT) 50 1-10 by mouth [facility] MG tablet 10:01: daily. [facility] [place] glimepiride 2016-06 Yes 4mg Take 4 mg [...] 12 times Center daily before meals. metFORMIN 2017- Yes 500mg Take [address] [facility] (GLUCOPHAGE 1-10 mg by [facility] ) 500 MG 10:01: mouth 2 Medica l tablet 12 (two) Center times daily with breakfast and dinner. FreeStyle FreeStyle No FreeStyle Yazmin 14 Yazmin 14 Yazmin 14 Day Sensor Day Sensor Day Sensor [...] 4 MM FreeStyle FreeStyle No QD FreeStyle Yazmin 14 Yazmin 14 Yazmin 14 Day Ronks Day Ronks Day Ronks - - - Dicyclomine Dicyclomine No QID [...] 100 MG FreeStyle FreeStyle No QD FreeStyle Yazmin 14 Yazmin 14 Yazmin 14 Day Ronks Day Ronks Day Ronks - - - traZODone traZODone No traZODone HCl 50 MG HCl 50 MG HCl 50 MG FreeStyle FreeStyle No FreeStyle Yazmin 14 Yazmin 14 Yazmin 14 Day Sensor Day Sensor Day Sensor [...] 500 MG a_meal} FreeStyle FreeStyle No FreeStyle Yazmin 14 Yazmin 14 Yazmin 14 Day Sensor Day Sensor Day Sensor [...] 100 MG FreeStyle FreeStyle No QD FreeStyle Yazmin 14 Yazmin 14 Yazmin 14 Day Ronks Day Ronks Day Ronks - - - Famotidine Famotidine No 1{table [...] 100 MG FreeStyle FreeStyle No QD FreeStyle Yazmin 14 Yazmin 14 Yazmin 14 Day Ronks Day Ronks Day Ronks - - - FreeStyle FreeStyle No FreeStyle Yazmin 14 Yazmin 14 Yazmin 14 Day Sensor Day Sensor Day Sensor [...] 50 MG FreeStyle FreeStyle No QD FreeStyle Yazmin 14 Yazmin 14 Yazmin 14 Day Ronks Day Ronks Day Ronks - - - Famotidine Famotidine No 1{table [...] t} 15 MG FreeStyle FreeStyle No FreeStyle Yazmin 14 Yazmin 14 Yazmin 14 Day Sensor Day Sensor Day Sensor [...] HCl 50 MG FreeStyle FreeStyle No FreeStyle Yazmin 14 Yazmin 14 Yazmin 14 Day Sensor Day Sensor Day Sensor [...] t} 0.5MG FreeStyle FreeStyle No QD FreeStyle Yazmin 14 Yazmin 14 Yazmin 14 Day Ronks Day Ronks Day Ronks - - - Tobramycin Tobramycin No 1{drop_ [...] s_neede d} FreeStyle FreeStyle No QD FreeStyle Yazmin 14 Yazmin 14 Yazmin 14 Day Ronks Day Ronks Day Ronks - - - Omeprazole Omeprazole No 1{capsu QD Omeprazole 40 MG 40 MG le} 40 MG traZODone traZODone No traZODone HCl 50 MG HCl 50 MG HCl 50 MG Gabapentin Gabapentin No 1{capsu TID Gabapentin 300 MG 300 MG le} 300 MG FreeStyle FreeStyle No FreeStyle Yazmin 14 Yazmin 14 Yazmin 14 Day Sensor Day Sensor Day Sensor [...] s_neede d} FreeStyle FreeStyle No QD FreeStyle Yazmin 14 Yazmin 14 Yazmin 14 Day Ronks Day Ronks Day Ronks - - - Omeprazole Omeprazole No 1{capsu QD Omeprazole 40 MG 40 MG le} 40 MG traZODone traZODone No traZODone HCl 50 MG HCl 50 MG HCl 50 MG Gabapentin Gabapentin No 1{capsu TID Gabapentin 300 MG 300 MG le} 300 MG FreeStyle FreeStyle No FreeStyle Yazmin 14 Yazmin 14 Yazmin 14 Day Sensor Day Sensor Day Sensor [...] s_neede d} FreeStyle FreeStyle No QD FreeStyle Yazmin 14 Yazmin 14 Yazmin 14 Day Ronks Day Ronks Day Ronks - - - Omeprazole Omeprazole No 1{capsu QD Omeprazole 40 MG 40 MG le} 40 MG traZODone traZODone No traZODone HCl 50 MG HCl 50 MG HCl 50 MG traZODone traZODone No 1{table QD traZODone HCl 50 MG HCl 50 MG t_at_be HCl 50 MG dtime_a s_neede d} FreeStyle FreeStyle No FreeStyle Yazmin 14 Yazmin 14 Yazmin 14 Day Sensor Day Sensor Day Sensor [...] s_neede d} FreeStyle FreeStyle No QD FreeStyle Yazmin 14 Yazmin 14 Yazmin 14 Day Ronks Day Ronks Day Ronks - - - Omeprazole Omeprazole No 1{capsu QD Omeprazole 40 MG 40 MG le} 40 MG traZODone traZODone No traZODone HCl 50 MG HCl 50 MG HCl 50 MG traZODone traZODone No 1{table QD traZODone HCl 50 MG HCl 50 MG t_at_be HCl 50 MG dtime_a s_neede d} FreeStyle FreeStyle No FreeStyle Yazmin 14 Yazmin 14 Yazmin 14 Day Sensor Day Sensor Day Sensor [...] Common HCl HCl with a [facility] meal - [facility] Zofran 4 MG Zofran 4 MG No [...] UNIT/ML 200 UNIT/ML FreeStyle FreeStyle No FreeStyle Yazmin 14 Yazmin 14 Yazmin 14 Day Sensor Day Sensor Day Sensor - - - Dicyclomine Dicyclomine No Dicyclomin HCl 20 MG HCl 20 MG e HCl 20 MG Zofran 4 MG Zofran 4 MG No 1{table Zofran 4 t} MG FreeStyle FreeStyle No QD FreeStyle Yazmin 14 Yazmin 14 Yazmin 14 Day Ronks Day Ronks Day Ronks - - - metFORMIN metFORMIN No 2{table [...] MM 4 MM FreeStyle FreeStyle No FreeStyle Ayzmin 14 Yazmin 14 Yazmin 14 Day Sensor Day Sensor Day Sensor - - - Sertraline Sertraline No 2{table QD Sertraline HCl 100 MG HCl 100 MG ts} HCl 100 MG Gabapentin Gabapentin No 1{capsu TID Gabapentin 300 MG 300 MG le} 300 MG Steglatro Steglatro No 1{table QD Steglatro 15 MG 15 MG t} 15 MG FreeStyle FreeStyle No QD FreeStyle Yazmin 14 Yazmin 14 Yazmin 14 Day Ronks Day Ronks Day Ronks - - - Famotidine Famotidine No 1{table [...] 500 MG a_meal} FreeStyle FreeStyle No FreeStyle Yazmin 14 Yazmin 14 Yazmin 14 Day Sensor Day Sensor Day Sensor [...] 15 MG FreeStyle FreeStyle No QD FreeStyle Yazmin 14 Yazmin 14 Yazmin 14 Day Ronks Day Ronks Day Ronks - - - traZODone traZODone No 1{table [...] UNIT/ML 200 UNIT/ML FreeStyle FreeStyle No FreeStyle Yazmin 14 Yazmin 14 Yazmin 14 Day Sensor Day Sensor Day Sensor [...] 4 MM FreeStyle FreeStyle No QD FreeStyle Yazmin 14 Yazmin 14 Yazmin 14 Day Ronks Day Ronks Day Ronks - - - Dicyclomine Dicyclomine No QID [...] UNIT/ML 200 UNIT/ML FreeStyle FreeStyle No FreeStyle Yazmin 14 Yazmin 14 Yazmin 14 Day Sensor Day Sensor Day Sensor [...] 4 MM FreeStyle FreeStyle No QD FreeStyle Yazmin 14 Yazmin 14 Yazmin 14 Day Ronks Day Ronks Day Ronks - - - Dicyclomine Dicyclomine No QID [...] FlexTouch 200 UNIT/ML 200 UNIT/ML 200 UNIT/ML Immunizations Ordered Immunization Filled Immunization Date Status Commen ts Source Name Name Afluria single dose Afluria single dose 2020-06-01 [facility]pleted [facility] 09[facility] - [facility] Afluria single dose Afluria single dose 2020-06-01 Completed [facility] 09:27:[facility] - [facility] Afluria single dose Afluria single dose 2020-06-01 Completed [facility] 09:27:00 [facility] Afluria single dose Afluria single dose 2020-06-01 Completed [facility] 09:27:00 [facility] Afluria single dose Afluria single dose 2020-06-01 Completed [facility] 09:27:00 [facility] Afluria single dose Afluria single dose 2020-06-01 Completed [facility] 09:27:00 [facility] Afluria single dose Afluria single dose 2020-06-01 Completed [facility]:27:[facility] - [facility] Afluria single dose Afluria single dose 2020-06-01 Completed [facility]:27:00 - [facility] Afluria single dose Afluria single dose 2020-06-01 [facility]pleted [facility]:27:00 - [facility] Afluria single dose Afluria single dose 2020-06-01 Completed [facility] 09:27:00 [facility] Afluria single dose Afluria single dose 2020-06-01 Completed [facility] 09:27:00 - [facility] Afluria single dose Afluria single dose 2020-06-01 Completed [facility]:27:00 - [facility] Afluria single dose Afluria single dose 2020-06-01 Completed [facility] 09:27:00 - [facility] Afluria single dose Afluria single dose 2020-06-01 Completed [facility] 09:27:00 - [facility] Afluria single dose Afluria single dose 2020-06-01 Completed [facility] 09:27:00 - [facility] Afluria single dose Afluria single dose 2020-06-01 Completed [facility] 09:27:00 - [facility] Afluria single dose Afluria single dose 2020-06-01 Completed [facility] 09:27:00 - [facility] Afluria single dose Afluria single dose 2020-06-01 Completed [facility]:27:00 - [facility] Afluria single dose Afluria single dose 2020-06-01 [facility]pleted [facility]:27:00 - [facility] Afluria single dose Afluria single dose 2020-06-01 [facility]pleted [facility]:27:00 - [facility] Afluria single dose Afluria single dose 2020-06-01 Completed [facility] 09:27:00 [facility] Afluria single dose Afluria single dose 2020-06-01 Completed [facility] 09:27:00 [facility] Afluria single dose Afluria single dose 2020-06-01 Completed [facility] 09:27:00 [facility] Afluria single dose Afluria single dose 2020-06-01 Completed [facility] 09:27:00 - [facility] Afluria single dose Afluria single dose 2020-06-01 [facility]pleted [facility] 09:27:00 - [facility] Afluria single dose Afluria single dose 2020-06-01 Completed [facility] 09:27:00 - [facility] Afluria single dose Afluria single dose 2020-06-01 Completed [facility] 09:27:00 - [facility] Afluria single dose Afluria single dose 2020-06-01 Completed [facility] 09:27:00 - [facility] Afluria single dose Afluria single dose 2020-06-01 Completed [facility] 09:27:00 - [facility] Afluria single dose Afluria single dose 2020-06-01 Completed [facility] 09:27:00 - [facility] Afluria single dose Afluria single dose 2020-06-01 Completed [facility] 09:27:00 - [facility] Afluria single dose Afluria single dose 2020-06-01 Completed [facility] 09:27:00 - [facility] Afluria single dose Afluria single dose 2020-06-01 Completed [facility] 09:27:00 - [facility] Flucelvax - Flucelvax - 2019-03-30 Completed [facility] multidose vial multidose vial 15:35:00 - [facility] Flucelvax - Flucelvax - 2019-03-30 Completed [facility] multidose vial multidose vial 15:35:00 - [facility] Flucelvax - Flucelvax - 2019-03-30 Completed [facility] multidose vial multidose vial 15:35:00 - [facility] Flucelvax - Flucelvax - 2019-03-30 Completed [facility] multidose vial multidose vial 15:35:00 - [facility] Flucelvax - Flucelvax - 2019-03-30 Completed [facility] multidose vial multidose vial 15:35:00 - [facility] Flucelvax - Flucelvax - 2019-03-30 Completed [facility] multidose vial multidose vial 15:35:00 - [facility] Flucelvax - Flucelvax - 2019-03-30 Completed [facility] multidose vial multidose vial 15:35:00 - [facility] Flucelvax - Flucelvax - 2019-03-30 Completed [facility] multidose vial multidose vial 15:35:00 - [facility] Flucelvax - Flucelvax - 2019-03-30 Completed [facility] multidose vial multidose vial 15:35:00 - [facility] Flucelvax - Flucelvax - 2019-03-30 Completed [facility] multidose vial multidose vial 15:35:00 - [facility] Flucelvax - Flucelvax - 2019-03-30 Completed [facility] multidose vial multidose vial 15:35:00 - [facility] Flucelvax - Flucelvax - 2019-03-30 Completed [facility] multidose vial multidose vial 15:35:00 - [facility] Flucelvax - Flucelvax - 2019-03-30 Completed [facility] multidose vial multidose vial 15:35:00 - [facility] Flucelvax - Flucelvax - 2019-03-30 Completed [facility] multidose vial multidose vial 15:35:00 - [facility] Flucelvax - Flucelvax - 2019-03-30 Completed [facility] multidose vial multidose vial 15:35:00 - [facility] Flucelvax - Flucelvax - 2019-03-30 Completed [facility] multidose vial multidose vial 15:35:00 - [facility] Flucelvax - Flucelvax - 2019-03-30 Completed [facility] multidose vial multidose vial 15:35:00 - [facility] Flucelvax - Flucelvax - 2019-03-30 Completed [facility] multidose vial multidose vial 15:35:00 - [facility] Flucelvax - Flucelvax - 2019-03-30 Completed [facility] multidose vial multidose vial 15:35:00 - [facility] Flucelvax - Flucelvax - 2019-03-30 Completed [facility] multidose vial multidose vial 15:35:00 - [facility] Flucelvax - Flucelvax - 2019-03-30 Completed [facility] multidose vial multidose vial 15:35:00 - [facility] Flucelvax - Flucelvax - 2019-03-30 Completed [facility] multidose vial multidose vial 15:35:00 - [facility] Flucelvax - Flucelvax - 2019-03-30 Completed [facility] multidose vial multidose vial 15:35:00 - [facility] Flucelvax - Flucelvax - 2019-03-30 Completed [facility] multidose vial multidose vial 15:35:00 - [facility] Flucelvax - Flucelvax - 2019-03-30 Completed [facility] multidose vial multidose vial 15:35:00 - [facility] Flucelvax - Flucelvax - 2019-03-30 Completed [facility] multidose vial multidose vial 15:35:00 - [facility] Flucelvax - Flucelvax - 2019-03-30 Completed [facility] multidose vial multidose vial 15:35:00 - [facility] Flucelvax - Flucelvax - 2019-03-30 Completed [facility] multidose vial multidose vial 15:35:00 - [facility] Flucelvax - Flucelvax - 2019-03-30 Completed [facility] multidose vial multidose vial 15:35:00 - [facility] Flucelvax - Flucelvax - 2019-03-30 Completed [facility] multidose vial multidose vial 15:35:00 - [facility] Flucelvax - Flucelvax - 2019-03-30 Completed [facility] multidose vial multidose vial 15:35:00 - [facility] Flucelvax - Flucelvax - 2019-03-30 Completed [facility] multidose vial multidose vial 15:35:00 - [facility] Flucelvax - Flucelvax - 2019-03-30 Completed [facility] multidose vial multidose vial 15:35:00 - [facility] Flucelvax - Flucelvax - 2019-03-30 Completed [facility] multidose vial multidose vial 00:00:00 - [facility] Vital Signs Vital Name Observation Time Observation Value Comments Source Systolic blood 2022-06-03 21:41:00 106 mm[Hg] [facility] pressure Medicine Diastolic blood 2022-06-03 21:41:00 58 mm[Hg] [facility] pressure Medicine Body height 2022-06-03 21:41:00 162.6 cm [facility] Body weight 2022-06-03 21:41:00 72.576 kg [facility] BMI 2022-06-03 21:41:00 27.46 kg/m2 [facility] Systolic blood 2022-05-31 21:08:00 114 mm[Hg] [facility] pressure Medicine Diastolic blood 2022-05-31 21:08:00 65 mm[Hg] [facility] pressure Medicine Heart rate 2022-05-31 21:08:00 89 /min [facility] Body height 2022-05-31 21:08:00 162.6 cm [facility] Body weight 2022-05-31 21:08:00 71.668 kg [facility] BMI 2022-05-31 21:08:00 27.12 kg/m2 [facility] Systolic blood 2022-05-28 14:59:00 111 mm[Hg] [facility] Medicine Diastolic blood 2022-05-28 14:59:00 68 mm[Hg] [facility] Medicine Heart rate 2022-05-28 14:59:00 73 /min [facility] Body temperature 2022-05-28 14:59:00 36.61 [facility] Respiratory rate 2022-05-28 14:59:00 18 /min [facility] Body height 2022-05-28 14:59:00 162.6 cm [facility] Body weight 2022-05-28 14:59:00 71.668 kg [facility] BMI 2022-05-28 14:59:00 27.12 kg/m2 [facility] height 2022-05-09 15:00:00 64 [in_i] [facility] weight 2022-05-09 15:00:00 155.8 [lb_av] [facility] temperature 2022-05-09 15:00:00 97.8 [degF] [facility] bmi 2022-05-09 15:00:00 26.74 kg/m2 [facility] oximetry 2022-05-09 15:00:00 97 % [facility] respiratory rate 2022-05-09 15:00:00 15 /min [facility] blood pressure 2022-05-09 15:00:00 109 mm[Hg] [facility] - systolic [facility] blood pressure 2022-05-09 15:00:00 58 mm[Hg] [facility] - diastolic [facility] height 2022-05-06 14:00:00 64 [in_i] [facility] weight 2022-05-06 14:00:00 157 [lb_av] [facility] temperature 2022-05-06 14:00:00 97.2 [degF] [facility] bmi 2022-05-06 14:00:00 26.95 kg/m2 [facility] blood pressure 2022-05-06 14:00:00 112 mm[Hg] [facility] - systolic [facility] blood pressure 2022-05-06 14:00:00 68 mm[Hg] [facility] - diastolic [facility] Systolic blood 2022-03-22 18:27:00 112 mm[Hg] [facility] pressure Medicine Diastolic blood 2022-03-22 18:27:00 65 mm[Hg] [facility] pressure Medicine Heart rate 2022-03-22 18:27:00 71 /min [facility] Body height 2022-03-22 18:27:00 162.6 cm [facility] Body weight 2022-03-22 18:27:00 68.947 kg [facility] BMI 2022-03-22 18:27:00 26.09 kg/m2 [facility] Systolic blood 2022-02-26 16:41:00 125 mm[Hg] [facility] Medicine Diastolic blood 2022-02-26 16:41:00 72 mm[Hg] [facility] Medicine Heart rate 2022-02-26 16:41:00 83 /min [facility] Body temperature 2022-02-26 16:41:00 36.78 [facility] Respiratory rate 2022-02-26 16:41:00 18 /min [facility] Body height 2022-02-26 16:41:00 162.6 cm [facility] Body weight 2022-02-26 16:41:00 70.67 kg [facility] BMI 2022-02-26 16:41:00 26.74 kg/m2 [facility] height 2022-02-26 16:40:00 64 [in_i] [facility] weight 2022-02-26 16:40:00 155 [lb_av] [facility] bmi 2022-02-26 16:40:00 26.6 kg/m2 [facility] height 2021-12-06 11:40:00 64 [in_i] [facility] weight 2021-12-06 11:40:00 154 [lb_av] [facility] temperature 2021-12-06 11:40:00 97.8 [degF] [facility] bmi 2021-12-06 11:40:00 26.43 kg/m2 [facility] oximetry 2021-12-06 11:40:00 98 % [facility] respiratory rate 2021-12-06 11:40:00 20 /min [facility] blood pressure 2021-12-06 11:40:00 122 mm[Hg] [facility] blood pressure 2021-12-06 11:40:00 59 mm[Hg] [facility] - diastolic [facility] height 2021-11-19 10:00:00 64 [in_i] [facility] weight 2021-11-19 10:00:00 152.4 [lb_av] [facility] temperature 2021-11-19 10:00:00 97.7 [degF] [facility] bmi 2021-11-19 10:00:00 26.16 kg/m2 [facility] oximetry 2021-11-19 10:00:00 97 % [facility] respiratory rate 2021-11-19 10:00:00 16 /min [facility] blood pressure 2021-11-19 10:00:00 118 mm[Hg] [facility] - systolic [facility] blood pressure 2021-11-19 10:00:00 57 mm[Hg] [facility] - diastolic [facility] height 2021-10-09 16:00:00 64 [in_i] [facility] weight 2021-10-09 16:00:00 152 [lb_av] [facility] temperature 2021-10-09 16:00:00 97.7 [degF] [facility] bmi 2021-10-09 16:00:00 26.09 kg/m2 [facility] oximetry 2021-10-09 16:00:00 98 % [facility] respiratory rate 2021-10-09 16:00:00 18 /min [facility] blood pressure 2021-10-09 16:00:00 129 mm[Hg] [facility] - systolic [facility] blood pressure 2021-10-09 16:00:00 60 mm[Hg] [facility] - diastolic [facility] height 2021-09-10 08:40:00 64 [in_i] [facility] weight 2021-09-10 08:40:00 148.8 [lb_av] [facility] temperature 2021-09-10 08:40:00 97.7 [degF] Common [facility] bmi 2021-09-10 08:40:00 25.54 kg/m2 Common [facility] oximetry 2021-09-10 08:40:00 100 % [facility] respiratory rate 2021-09-10 08:40:00 16 /min [facility] blood pressure 2021-09-10 08:40:00 123 mm[Hg] Common [facility] - systolic [facility] blood pressure 2021-09-10 08:40:00 58 mm[Hg] Common [facility] - diastolic [facility] height 2021-08-21 11:40:00 64 [in_i] Common [facility] weight 2021-08-21 11:40:00 149.4 [lb_av] [facility] temperature 2021-08-21 11:40:00 97.6 [degF] Common [facility] bmi 2021-08-21 11:40:00 25.64 kg/m2 [facility] oximetry 2021-08-21 11:40:00 99 % Common [facility] respiratory rate 2021-08-21 11:40:00 15 /min [facility] blood pressure 2021-08-21 11:40:00 121 mm[Hg] [facility] - [facility] blood pressure 2021-08-21 11:40:00 57 mm[Hg] [facility] - diastolic [facility] height 2021-04-05 16:20:00 64 [in_i] Common [facility] weight 2021-04-05 16:20:00 157 [lb_av] Common [facility] temperature 2021-04-05 16:20:00 97.6 [degF] Common [facility] bmi 2021-04-05 16:20:00 26.95 kg/m2 [facility] oximetry 2021-04-05 16:20:00 98 % [facility] respiratory rate 2021-04-05 16:20:00 21 /min [facility] - [facility] blood pressure 2021-04-05 16:20:00 120 mm[Hg] Common [facility] - systolic [facility] blood pressure 2021-04-05 16:20:00 58 mm[Hg] Common [facility] - diastolic [facility] Systolic blood 2022-03-08 10:20:00 110 mm[Hg] [facility] Diastolic blood 2022-03-08 10:20:00 61 mm[Hg] [facility] Heart rate 2022-03-08 10:20:00 70 /min [facility] Respiratory rate 2022-03-08 10:20:00 12 /min [facility] Oxygen saturation in 2022-03-08 10:20:00 95 /min [facility] Arterial blood by Medical Ce nter Pulse oximetry Body temperature 2022-03-08 09:51:00 36.5 Jeannine [facility] Body height 2022-03-08 09:19:00 162.6 cm [facility] Body weight 2022-03-08 09:19:00 75.751 kg [facility] BMI 2022-03-08 09:19:00 28.67 kg/m2 [facility] Procedures Procedure Date / Time Performing Source Performed Clinician POCT HEMOGLOBIN A1C 2022-03-22 Kadeem Minor [facility] 18:42:00 of Medicine REPORT OF PROCEDURE - ENDOSCOPY 2022-03-08 Trina Perez [facility] URL 09:57:00 [facility] REPORT OF PROCEDURE - ENDOSCOPY 2022-03-08 Trina Perez [facility] URL 09:54:01 [facility] TISSUE EXAM 2022-03-[address] [facility] 09:24:00 [facility] POCT-GLUCOSE METER 2022-03-08 Anne-Mariebrigittesherry Trina [facility] 09:14:00 [facility] ESOPHAGOGASTRODUODENOSCOPY 2022-03-08 Mariano Trina [facility] 09:13:00 [facility] COLONOSCOPY, WITH POLYPECTOMY 2022-03-[address] [facility] 09:13:00 [facility] NM GASTRIC EMPTYING STUDY 4 HOUR 2022-02-14 William Jessica J. [facility] PROTOCOL 15:42:00 [facility] HEPATITIS A ANTIBODY, IGG 2022-01-[address] [facility] 13:59:00 [facility] BASIC METABOLIC PANEL 2022-01-10 William Jessica J. [facility] 13:59:00 [facility] HEPATIC FUNCTION PANEL 2022-01-10 William Jessica J. [facility] 13:59:00 [facility] CBC W/PLT COUNT & AUTO 2022-01-10 William Jessica J. [facility] DIFFERENTIAL 13:59:00 [facility] PROTHROMBIN TIME/INR 2022-01-10 Aracely Rise J[facility] 13:59:00 [facility] LACTIC ACID, VENOUS 2022-01-10 [facility]acely Rise [facility] 13:59:00 [facility] CBC W/PLT COUNT & AUTO 2022-01-10 Aracely Rise J. [facility] DIFFERENTIAL 13:59:00 [facility] MR ABDOMEN WITH & WITHOUT IV 2022-01-[address] [facility] CONTRAST 08:59:00 [facility] ALPHA FETOPROTEIN (AFP), TUMOR 2021-12-17 Percy, Tesfai [facility] MARKER 15:44:00 [facility] LACTIC ACID, VENOUS 2021-12-17 Percy, Tesfai [facility] 15:44:00 [facility] CBC W/PLT COUNT & AUTO 2021-12-17 Percy, Tesfai [facility] DIFFERENTIAL 15:44:00 [facility] COMPREHENSIVE METABOLIC PANEL 2021-12-17 Percy, [facility]fai [facility] 15[facility]44:00 [facility] BILIRUBIN, DIRECT 2021-12-[address] [facility] 15:44:00 [facility] CBC W/PLT COUNT & AUTO 2021-12-[address] [facility] DIFFERENTIAL 15:44:00 [facility] PROTHROMBIN TIME/INR 2021-12-17 [facility]cy[facility] 15:44:00 [facility] HEPATITIS B SURFACE ANTIGEN 2021-12-17 Percy, Tesfai [facility] 15:44:00 [facility] HEPATITIS B SURFACE ANTIBODY 2021-12-17 Percy, Tesfai [facility] 15:44:00 [facility] HEPATITIS B CORE ANTIBODY, TOTAL 2021-12-17 Percy, Tesfai [facility] 15:44:00 [facility] HEPATITIS C ANTIBODY 2021-12-17 Percy[facility] 15:44:00 [facility] IRON, TIBC, % SAT. (WITHOUT 2021-12-17 Percy, Tesfai [facility] FERRITIN) 15:44:00 [facility] FERRITIN 2021-12-17 Percy, Tesfai [facility] 15:44:00 [facility] [id number]\\, SERUM 2021-12-17 Percy, Tesfai [facility] 15:44:00 [facility] CERULOPLASMIN 2021-12-17 Percy, Tesfai [facility] 15:44:00 [facility] ANTI-NUCLEAR ANTIBODY (SAMIA) 2021-12-17 Percy, Tesfai [facility] 15:44:00 [facility] ACTIN (SMOOTH MUSCLE) ANTIBODY, 2021-12-17 Percy, Tesfai [facility] IGG 15:44:00 [facility] MITOCHONDRIA M2 ANTIBODY (IGG) 2021-12-17 Percy, Husami [facility] 15:44:00 [facility] Plan of Care Planned Activity Planned Date Details Comments Source Future Scheduled 2032-03-08 Screening for malignant [facility] Test 00:00:00 neoplasm of colon Medical Ce nter (procedure) [code = 915505334] Future Scheduled 2032-03-08 Screening for malignant [facility] Test 00:00:00 neoplasm of colon Medical Ce nter (procedure) [code = 210862864] Future Scheduled 2032-03-08 Screening for malignant [facility] Test 00:00:00 neoplasm of colon Medical Ce nter (procedure) [code = 596843121] Future Scheduled 2032-03-08 Screening for malignant [facility] Test 00:00:00 neoplasm of colon Medical Ce nter (procedure) [code = 906004016] Future Scheduled 2024-03-05 Screening for malignant [facility] Test 00:00:00 neoplasm of breast Medical C enter (procedure) [code = 768822121] Future Scheduled 2024-03-05 Screening for malignant [facility] Test 00:00:00 neoplasm of breast Medical C enter (procedure) [code = 683511978] Future Scheduled 2023-03-[address] [facility] Test 00:00:00 [facility] Medical Cente r Screening (12+) [code = Tobacco Cessation Counseling and Screening (12+)] Future Scheduled 2023-03-[address] [facility] Test 00:00:00 [facility]ing and Medical Cente r Screening (12+) [code = Tobacco Cessation Counseling and Screening (12+)] Future Scheduled 2022-06-03 Pneumococcal Combined [facility] Test 15:43:24 (1 - PCV) [code = of Medicin e Pneumococcal Combined (1 - PCV)] Future Scheduled 2022-06-03 [facility] 15:43:24 RETINOPATHY SCREENING of Med icine [code = ANNUAL DIABETIC RETINOPATHY SCREENING] Future Scheduled 2022-06-03 BMI FOLLOW UP PLAN [facility] Test 15:43:24 [code = BMI FOLLOW UP of Med icine PLAN] Future Scheduled 2022-06-03 Human immunodeficiency B [facility] Test 15:43:24 virus screening of Medicine (procedure) [code = 047177486] Future Scheduled 2022-06-03 ZOSTER VACCINE (1 of 2) [facility] Test 15:43:24 [code = ZOSTER VACCINE of Me dicine (1 of 2)] Future Scheduled 2022-06-03 Screening for malignant [facility] Test 15:43:24 neoplasm of cervix of Medici ne (procedure) [code = 066373993] Future Scheduled 2022-06-03 TETANUS SHOT (ADULT) [facility] Test 15:43:24 [code = TETANUS SHOT of Medi cine (ADULT)] Future Scheduled 2022-06-03 COVID-19 Vaccine (4 - [facility] Test 15:43:24 Booster for Pfizer of Medici ne series) [code = COVID-19 Vaccine (4 - Booster for Pfizer series)] Future Scheduled 2022-06-03 FLU VACCINE > 6 MONTHS B [facility] Test 15:43:24 [code = FLU VACCINE > 6 of M edicine MONTHS] Future Scheduled 2022-06-03 [facility] measurement (procedure) of M edicine [code = 38704254] Future Scheduled 2022-06-03 Screening for malignant [facility] Test 15:43:24 neoplasm of breast of Medici ne (procedure) [code = 228637942] Future Scheduled 2022-06-03 Diabetic foot [facility] Test 15:43:24 examination of Medicine (regime/therapy) [code = 494045577] Future Scheduled 2022-06-03 Screening for malignant [facility] Test 15:43:24 neoplasm of colon of Medicin e (procedure) [code = 958926246] Future Scheduled 2022-05-31 Pneumococcal Combined [facility] Test 16:18:29 (1 - PCV) [code = of Medicin e Pneumococcal Combined (1 - PCV)] Future Scheduled 2022-05-31 Diabetic foot [facility] Test 16:18:29 examination of Medicine (regime/therapy) [code = 333315194] Future Scheduled 2022-05-31 ANNUAL DIABETIC [facility] Test 16:18:29 RETINOPATHY SCREENING of Med icine [code = ANNUAL DIABETIC RETINOPATHY SCREENING] Future Scheduled 2022-05-[address]AN [facility] Test 16:18:29 [code = BMI FOLLOW UP of Med icine PLAN] Future Scheduled 2022-05-31 Human immunodeficiency B [facility] Test 16:18:29 virus screening of Medicine (procedure) [code = 391811475] Future Scheduled 2022-05-31 ZOSTER VACCINE (1 of 2) [facility] Test 16:18:29 [code = ZOSTER VACCINE of Co dicine (1 of 2)] Future Scheduled 2022-05-31 Screening for malignant [facility] Test 16:18:29 neoplasm of cervix of Medici ne (procedure) [code = 753445914] Future Scheduled 2022-05-31 TETANUS SHOT (ADULT) [facility] Test 16:18:29 [code = TETANUS SHOT of Medi cine (ADULT)] Future Scheduled 2022-05-31 COVID-19 Vaccine (4 - [facility] Test 16:18:29 Booster for Pfizer of Medici ne series) [code = COVID-19 Vaccine (4 - Booster for Pfizer series)] Future Scheduled 2022-05-31 FLU VACCINE > 6 MONTHS B [facility] Test 16:18:29 [code = FLU VACCINE > 6 of M edicine MONTHS] Future Scheduled 2022-05-31 Hemoglobin A1c [facility] Test 16:18:29 measurement (procedure) of M edicine [code = 62784655] Future Scheduled 2022-05-31 Screening for malignant [facility] Test 16:18:29 neoplasm of breast of Medici ne (procedure) [code = 683818328] Future Scheduled 2022-05-31 Screening for malignant [facility] Test 16:18:29 neoplasm of colon of Medicin e (procedure) [code = 889265012] Future Scheduled 2022-05-28 Pneumococcal Combined [facility] Test 08:59:19 (1 - PCV) [code = of Medicin e Pneumococcal Combined (1 - PCV)] Future Scheduled 2022-05-28 Diabetic foot [facility] Test 08:59:19 examination of Medicine (regime/therapy) [code = 472350820] Future Scheduled 2022-05-28 ANNUAL DIABETIC [facility] Test 08:59:19 RETINOPATHY SCREENING of Med icine [code = ANNUAL DIABETIC RETINOPATHY SCREENING] Future Scheduled 2022-05-[address]AN [facility] Test 08:59:19 [code = BMI FOLLOW UP of Med icine PLAN] Future Scheduled 2022-05-28 Human immunodeficiency B [facility] Test 08:59:19 virus screening of Medicine (procedure) [code = 492817239] Future Scheduled 2022-05-28 ZOSTER VACCINE (1 of 2) [facility] Test 08:59:19 [code = ZOSTER VACCINE of Co dicine (1 of 2)] Future Scheduled 2022-05-28 Screening for malignant [facility] Test 08:59:19 neoplasm of cervix of Medici ne (procedure) [code = 306566321] Future Scheduled 2022-05-28 TETANUS SHOT (ADULT) [facility] Test 08:59:19 [code = TETANUS SHOT of Medi cine (ADULT)] Future Scheduled 2022-05-28 COVID-19 Vaccine (3 - [facility] Test 08:59:19 Booster for Pfizer of Medici ne series) [code = COVID-19 Vaccine (3 - Booster for Pfizer series)] Future Scheduled 2022-05-28 FLU VACCINE > 6 MONTHS [facility] Test 08:59:19 [code = FLU VACCINE > 6 of M edicine MONTHS] Future Scheduled 2022-05-28 Hemoglobin A1c [facility] Test 08:59:19 measurement (procedure) of M edicine [code = 98794472] Future Scheduled 2022-05-28 Screening for malignant [facility] Test 08:59:19 neoplasm of breast of Medici ne (procedure) [code = 699895108] Future Scheduled 2022-05-28 Screening for malignant [facility] Test 08:59:19 neoplasm of colon of Medicin e (procedure) [code = 158486403] Future Scheduled 2022-03-29 MICROALBUMIN/CREAT Expected: [facility] Test 00:00:00 URINE RATIO [code = 03/29/2022 of Medic ine 9318-7] (Approximate), Expires: 09/19/2022 Future Scheduled 2022-03-29 LIPID PANEL [code = Expected: [facility] [place] Test 00:00:00 97379-8] 03/29/2022 of Medicine (Approximate), Expires: 09/19/2022 Future Scheduled 2022-03-24 Pneumococcal Combined [facility] [place] Test 13:41:11 (1 - PCV) [code = of Medicin e Pneumococcal Combined (1 - PCV)] Future Scheduled 2022-03-24 Diabetic foot [facility] Test 13:41:11 examination of Medicine (regime/therapy) [code = 864852465] Future Scheduled 2022-03-24 ANNUAL DIABETIC [facility] Test 13:41:11 RETINOPATHY SCREENING of Med icine [code = ANNUAL DIABETIC RETINOPATHY SCREENING] Future Scheduled 2022-03-24 BMI FOLLOW UP PLAN [facility] Test 13:41:11 [code = BMI FOLLOW UP of Med icine PLAN] Future Scheduled 2022-03-24 Human immunodeficiency B [facility] Test 13:41:11 virus screening of Medicine (procedure) [code = 988895030] Future Scheduled 2022-03-24 Screening for malignant [facility] Test 13:41:11 neoplasm of cervix of Medici ne (procedure) [code = 733594341] Future Scheduled 2022-03-24 TETANUS SHOT (ADULT) [facility] Test 13:41:11 [code = TETANUS SHOT of Medi cine (ADULT)] Future Scheduled 2022-03-24 ZOSTER VACCINE (1 of 2) [facility] Test 13:41:11 [code = ZOSTER VACCINE of Me dicine (1 of 2)] Future Scheduled 2022-03-24 COVID-19 Vaccine (3 - [facility] Test 13:41:11 Booster for Pfizer of Medici ne series) [code = COVID-19 Vaccine (3 - Booster for Pfizer series)] Future Scheduled 2022-03-24 FLU VACCINE > 6 MONTHS B [facility] Test 13:41:11 [code = FLU VACCINE > 6 of M edicine MONTHS] Future Scheduled 2022-03-24 Hemoglobin A1c [facility] Test 13:41:11 measurement (procedure) of M edicine [code = 59152318] Future Scheduled 2022-03-24 Screening for malignant [facility] Test 13:41:11 neoplasm of breast of Medici ne (procedure) [code = 688360342] Future Scheduled 2022-03-24 Screening for malignant [facility] Test 13:41:11 neoplasm of colon of Medicin e (procedure) [code = 045936022] Future Scheduled 2022-02-28 INFLUENZA VACCINE (#1) [facility] Test 00:00:00 [code = INFLUENZA Medical Ce nter VACCINE (#1)] Future Scheduled 2022-02-28 INFLUENZA VACCINE (#1) [facility] Test 00:00:00 [code = INFLUENZA Medical Ce nter VACCINE (#1)] Future Scheduled 2022-02-27 Screening for malignant [facility] Test 11:42:27 neoplasm of colon of Medicin e (procedure) [code = 425969652] Future Scheduled 2022-02-27 Pneumococcal Combined [facility] Test 11:42:27 (1 - PCV) [code = of Medicin e Pneumococcal Combined (1 - PCV)] Future Scheduled 2022-02-27 BMI FOLLOW UP PLAN [facility] Test 11:42:27 [code = BMI FOLLOW UP of Med icine PLAN] Future Scheduled 2022-02-27 Human immunodeficiency B [facility] Test 11:42:27 virus screening of Medicine (procedure) [code = 730747592] Future Scheduled 2022-02-27 Screening for malignant [facility] Test 11:42:27 neoplasm of cervix of Medici ne (procedure) [code = 906032657] Future Scheduled 2022-02-27 TETANUS SHOT (ADULT) [facility] Test 11:42:27 [code = TETANUS SHOT of Medi cine (ADULT)] Future Scheduled 2022-02-27 Screening for malignant [facility] Test 11:42:27 neoplasm of breast of Medici ne (procedure) [code = 241437318] Future Scheduled 2022-02-27 ZOSTER VACCINE (1 of 2) [facility] Test 11:42:27 [code = ZOSTER VACCINE of Me dicine (1 of 2)] Future Scheduled 2022-02-27 COVID-19 Vaccine (3 - [facility] [employer] Test 11:42:27 Booster for Pfizer of Medici ne series) [code = COVID-19 Vaccine (3 - Booster for Pfizer series)] Future Scheduled 2022-02-27 FLU VACCINE > 6 MONTHS B [facility] Test 11:42:27 [code = FLU VACCINE > 6 of M edicine MONTHS] Future Scheduled 2022-01-[address] [facility] Test 00:00:00 measurement (procedure) [facility] [code = 05069435] Future Scheduled 2022-01-[address] [facility] Test 00:00:00 measurement (procedure) [facility] [code = 58172404] Future Scheduled 2021-06-[address] [facility] Test 00:00:00 (12+) [code = Medical Center DEPRESSION SCREENING (12+)] Future Scheduled 2021-06-[address] [facility] Test 00:00:00 (12+) [code = Medical Center DEPRESSION SCREENING (12+)] Future Scheduled 2021-02-16 COVID-19 VACCINE (3 - [facility] 00:[facility]:00 Booster for Pfizer Medical C enter series) [code = COVID-19 VACCINE (3 - Booster for Pfizer series)] Future Scheduled 2021-02-16 COVID-19 VACCINE (3 - [facility] 00:00:00 Booster for Pfizer Medical C enter series) [code = COVID-19 VACCINE (3 - Booster for Pfizer series)] Future Scheduled 2019 SHINGLES VACCINES ([address] [facility] Test 00:00:00 2) [code [facility] (1 of 2)] Future Scheduled 2019 SHINGLES VACCINES ([address] [facility] Test 00:00:00 2) [facility] (1 of 2)] Future Scheduled 2014 Lipid panel (procedure) [facility] Test 00:00:00 [code = 50629741] Medical Ce nter Future Scheduled 2014 Lipid panel (procedure) [facility] Test 00:00:00 [code = 11872967] Medical Ce nter Future Scheduled 1990 Screening for malignant [facility] Test 00:00:00 neoplasm of cervix Medical C enter (procedure) [code = 546994700] Future Scheduled 1990 Screening for malignant [facility] Test 00:00:00 neoplasm of cervix Medical C enter (procedure) [code = 520493132] Future Scheduled 1988-01-07 DTAP/TDAP/TD VACCINES [facility] Test 00:00:00 (1 - Tdap) [code = Medical C enter DTAP/TDAP/TD VACCINES (1 - Tdap)] Future Scheduled 1988-01-07 DTAP/TDAP/TD VACCINES [facility] Test 00:00:00 (1 - Tdap) [code = Medical C enter DTAP/TDAP/TD VACCINES (1 - Tdap)] Future Scheduled 1979 DIABETIC EYE EXAM [code [facility] Test 00[facility]00:00 = DIABETIC EYE EXAM] Medical Center Future Scheduled [address] [facility] examination Medical Center (regime/therapy) [code = 185435126] Future Scheduled 1979 Urine screening for [facility] Test 00:00:00 protein (procedure) Medical Center [code = 556798784] Future Scheduled 1979 DIABETIC EYE EXAM [code [facility] Test 00:00:00 = DIABETIC EYE EXAM] Medical Center Future Scheduled [address] [facility] Test 00:00:00 examination Medical Center (regime/therapy) [code = 181116608] Future Scheduled 1979 Urine screening for [facility] Test 00:00:00 protein (procedure) Medical Center [code = 725446531] Future Scheduled [address] [facility] Test 00:00:00 0-64 YRS (1 - PCV) Medical C enter [code = PNEUMOCOCCAL VACCINE 0-64 YRS (1 - PCV)] Future Scheduled [address] [facility] Test 00:00:00 0-64 YRS (1 - PCV) Medical C enter [code = PNEUMOCOCCAL VACCINE 0-64 YRS (1 - PCV)] Future Scheduled 1969 CT Colonography (combo) [facility] Test 00:00:00 [code = CT Colonography [facility] (combo)] Future Scheduled 1969 Screening for malignant [facility] Test 00:00:00 neoplasm of colon Medical Ce nter (procedure) [code = 836465345] Future Scheduled 1969 Screening for malignant [facility] Test 00:00:00 neoplasm of colon Medical Ce nter (procedure) [code = 628210754] Future Scheduled 1969 Sigmoidoscopy [code = [facility] Sigmoidoscopy] Medical Cente r Future Scheduled 1969 CT Colonography (combo) [facility] Test 00:00:00 [code = CT Colonography [facility] (combo)] Future Scheduled 1969 Screening for malignant [facility] Test 00:00:00 neoplasm of colon Medical Ce nter (procedure) [code = 710590311] Future Scheduled 1969 Screening for malignant [facility] Test 00:00:00 neoplasm of colon Medical Ce nter (procedure) [code = 427925659] Future Scheduled 1969 Sigmoidoscopy [code [facility] S[facility]oscopy] Medical Cente r Encounters Start End Encounter Admission Attending Care Care Encounter Source Date/Time Date/Time Type Type Clinicians Facility Department ID 2022-06-11 [facility] [id number] 2 Common 09:04:01 [id number] [facility] 2022-05-06 Outpatient Haney, Na [facility] [id number] 2 Common 14:47:00 [facility] 2022-05-01 Outpatient Haney, Na [facility] [id number] 2 Common 10:38:00 [facility] 2022-04-24 Outpatient Haney, Na [facility] [id number] 2 Common 13:41:01 [facility] 2022-04-18 Outpatient Haney, Na [facility] [id number] 2 Common 14:22:00 [facility] 2022-04-03 Outpatient Haney, Na [facility] [id number] 2 Common 16:47:01 [facility] 2022-03-20 Outpatient Haney, Na [facility] [id number] 2 Common 11:50:01 [facility] 2022-02-22 Outpatient Haney, Na [facility] [id number] 2 Common 09:27:00 [facility] 2022-01-31 Outpatient Haney, Na [facility] [id number] 2 Common 13:37:01 [facility] 2022-01-15 Outpatient Haney, Na [facility] [id number] 2 Common 13:51:00 [facility] 2021-11-19 Outpatient Haney, Na [facility] [id number] 2 Common 11:21:07 [facility] 2021-11-02 Outpatient Haney, Na [facility] [id number] 2 Common 09:23:01 [facility] 2021-10-08 Outpatient Haney, Na [facility] [id number] 2 Common 11:37:01 [facility] 2021-09-24 Outpatient Haney, Na [facility] [id number] 2 Common 11:59:00 [facility] 2021-09-06 Outpatient Haney, Na [facility] [id number] 2 Common 08:34:01 [facility] 2021-08-21 Outpatient Haney, Na [facility] [id number] 2 Common 11:41:00 [facility] 2021-07-25 Outpatient Haney, Na [facility] ST[facility] [id number] 2 Common 14:33:29 [facility] 2021-07-25 Outpatient Haney, Na [facility] ST[facility] [id number] 2 Common 14:24:24 [facility] 2021-07-25 Outpatient Haney, Na [facility] ST[facility] [id number] 2 Common 13:57:58 [id number] [facility] 2021-07-25 Outpatient Haney, Na STLMLC STLMLC [id number] 2 Common 13:56:51 [id number] [facility] 2021-07-25 Outpatient Haney, Na STLMLC STLMLC [id number] 2 Common 13:47:46 [id number] [facility] 2021-07-25 Outpatient Haney, Na STLMLC STLMLC [id number] 2 Common 12:48:36 [id number] [facility] 2021-07-25 Outpatient Haney, Na STLMLC STLMLC [id number] 2 Common 12:33:46 [id number] [facility] 2021-07-25 Outpatient Haney, Na STLMLC STLMLC [id number] 2 Common 12:31:18 [id number] [facility] 2021-07-25 Outpatient Haney, Na STLMLC STLMLC [id number] 2 Common 12:26:58 [id number] [facility] 2021-07-25 Outpatient Haney, Na STLMLC STLMLC [id number] 2 Common 12:09:32 [id number] [facility] 2021-07-25 Outpatient Haney, Na STLMLC STLMLC [id number] 2 Common 12:02:06 [id number] [facility] 2021-07-25 Outpatient Haney, Na STLMLC STLMLC [id number] 2 Common 12:01:44 [id number] [facility] 2021-07-25 Outpatient Haney, Na STLMLC STLMLC [id number] 2 Common 11:58:40 [id number] [facility] 2021-07-25 Outpatient Haney, Na STLMLC STLMLC [id number] 2 Common 11:57:47 [id number] [facility] 2021-07-25 Outpatient Haney, Na STLMLC STLMLC [id number] 2 Common 11:57:12 [id number] [facility] 2021-07-25 Outpatient Haney, Na STLMLC STLMLC [id number] 2 Common 11:56:42 [id number] [facility] 2021-07-25 Outpatient Haney, Na STLMLC STLMLC [id number] 2 Common 11:55:04 [id number] [facility] 2021-07-25 Outpatient Haney, Na STLMLC STLMLC [id number] 2 Common 11:32:26 [id number] [facility] 2021-07-25 Outpatient Haney, Na STLMLC STLMLC [id number] 2 Common 11:32:11 [id number] [facility] 2021-07-25 Outpatient Haney, Na STLMLC STLMLC [id number] 2 Common 11:30:56 [id number] [facility] 2021-07-25 Outpatient Haney, Na STLMLC STLMLC [id number] 2 Common 11:24:01 [id number] [facility] 2021-07-25 Outpatient Haney, Na STLMLC STLMLC [id number] 2 Common 11:16:56 [id number] [facility] 2021-07-25 Outpatient Haney, Na STLMLC STLMLC [id number] 2 Common 11:10:23 [id number] [facility] 2021-07-25 Outpatient Haney, Na STLMLC STLMLC [id number] 2 Common 11:09:28 [id number] [facility] 2021-07-25 Outpatient Haney, Na STLMLC STLMLC [id number] 2 Common 10:58:23 [id number] [facility] 2021-07-25 Outpatient Haney, Na STLMLC STLMLC [id number] 2 Common 10:57:38 [id number] [facility] 2022-06-03 2022-06-03 Office Lomeli, [facility] [id number] [facility] 15:40:00 16:00:00 Visit Suneal K AMBULATOR 350.1.13.21 College Y 0.2.7.2.686 of [id number] [facility] la nena 325 e 2022-05-31 2022-05-31 Office Kadeem Minor [facility] [id number] [facility] 14:30:00 16:18:42 Visit AMBULATOR 350.1.13.21 College Y 0.2.7.2.686 of [id number] Medi la nena 310 e 2022-05-28 2022-05-28 Office Teegavarapu [facility] [id number] [facility] 08:40:00 09:47:51 Visit , Mary Valdes 350.1.13.21 College [employer] 0.2.7.2.686 of [id number] Medi la nena 506 e 2022-05-28 2022-05-28 Outpatient TEEGAVARAPU [facility] [id number] [facility] 00:00:00 00:00:00 , MARY Lazaro ege of Medicin e 2022-05-25 2022-05-25 (TEL) STLMLC STLMLC [id number] Co mmon 00:00:00 00:00:00 [facility] 2022-05-09 2022-05-09 OFFICE STLMLC STLMLC [id number] Co mmon 00:00:00 00:00:00 VISIT EST Spir it PT LEVEL 3 [facility] 2022-05-07 2022-05-07 (TEL) STLMLC STLMLC [id number] Co mmon 00:00:00 00:00:00 [facility] 2022-05-06 2022-05-06 OFFICE STLMLC STLC [id number] Co mmon 00:00:00 00:00:00 VISIT [facility] LEVEL 4 [facility] 2022-03-22 2022-03-22 Office Kadeem Minor [id number] [facility] 13:15:00 14:25:46 Visit AMBULATOR 350.1.13.21 College Y 0.2.7.2.686 [id number] Medi la nena 310 e 2022-03-20 2022-03-20 (TEL) STLMLC STLMLC [id number] Co mmon 00:00:00 00:00:00 [facility] 2022-03-20 2022-03-20 (TEL) STLC STLC [id number] Co mmon 00:00:00 00:00:00 [facility] 2022-03-19 2022-03-19 (TEL) STLMLC STLC [id number] Co mmon 00:00:00 00:00:00 [facility] 2022-03-08 2022-03-08 Outpatient [facility] [id number] [facility] 08:37:00 23:59:00 [facility] 2022-03-08 2022-03-08 [facility] [id number] 08:37:00 10:47:00 Encounter [facility] 2022-03-08 2022-03-08 [facility] [id number] 08:37:00 10:47:00 Encounter [facility] 2022-03-08 2022-03-08 Outpatient MAREK PEREZ [id number] [facility] 10:36:11 10:36:11 [facility] e [facility] Medicin e 2022-03-08 2022-03-08 Outpatient MAREK PEREZ BCM [id number] [facility] 10:30:14 10:30:14 TRINA [facility] 2022-03-08 2022-03-08 Surgery Mariano [facility] [id number] 09:30:00 10:30:00 [facility] 2022-03-08 2022-03-08 Surgery Mariano [facility] [id number] 09:30:00 10:30:00 [facility] 2022-03-08 2022-03-08 [facility] [id number] 09:18:00 09:51:00 Event [facility] 2022-03-08 2022-03-08 Anesthesia [facility] [id number] 09:18:00 09:51:00 Event [facility] 2022-03-06 2022-03-06 (TEL) [facility] [id number] Co mmon 00:00:00 00:00:00 Spirit - [facility] 2022-03-05 2022-03-05 Outpatient [facility] [id number] [facility] 08:53:14 11:01:45 [facility] 2022-02-26 2022-02-26 Office JUAN [facility] 1.2.840.114 [id number] [facility] 11:17:43 12:44:36 Visit , MARY Valdes 350.1.13.21 [place] 0.2.7.2.686 [id number] Medi la nena 506 e 2022-02-26 2022-02-26 [facility] [id number] Co mmon 00:00:00 00:00:00 VISIT Alexandre BOLDEN PT - CHI LEVEL 4 [facility] 2022-02-14 2022-02-14 [facility] [id number] 08:58:32 23:59:00 [facility] 2022-02-14 2022-02-14 [facility] [id number] 08:58:32 23:59:00 [facility] 2022-02-11 2022-02-11 [facility] [id number] 11:48:54 23:59:00 Encounter [facility] 2022-02-11 2022-02-11 [facility] [id number] 11:48:54 23:59:00 Encounter [facility] 2022-02-11 2022-02-11 Travel [facility] [id number] [facility] 00:00:00 00:00:00 [facility] 2022-02-11 2022-02-11 Travel [facility] [id number] [facility] 00:[facility]00 00:00:00 [facility] 2022-01-29 2022-01-29 (TEL) [facility] [id number] Co mmon 00:00:00 00:00:00 [facility] 2022-01-28 2022-01-28 OL DIG E/M [facility] [id number] Common 00:00:00 00:00:00 SVC 21+ [facility] 2022-01-25 2022-01-25 (TEL) STLMLC STLC [id number] Co mmon 00:00:00 00:00:00 [facility] 2022-01-10 2022-01-10 Office EL [facility] [id number] 12:30:00 13:00:00 Visit [facility] 2022-01-10 2022-01-10 [facility] [id number] 12:30:00 13:00:00 Visit [facility] 2022-01-03 2022-01-03 [facility] [id number] 07:54:07 23:59:00 Encounter [facility] 2022-01-03 2022-01-03 Hospital Percy, [facility] [id number] 07:54:07 23:59:00 [facility] 2022-01-03 2022-01-03 (TEL) STLMLC STLMLC [id number] Co mmon 00:00:00 00:00:00 [facility] 2021-12-17 2021-12-17 Office EL Aracely, [facility] [id number] 14:00:00 15:00:00 Visit [facility] 2021-12-17 2021-12-17 Office Aracely, [facility] [id number] 14:00:00 15:00:00 Visit [facility] 2021-12-10 2021-12-10 (TEL) STLMLC STLMLC [id number] Co mmon 00:00:00 00:00:00 [facility] 2021-12-06 2021-12-06 OFFICE STLMLC STLMLC [id number] Co mmon 00:00:00 00:00:00 VISIT Spirit ESTAB PT - [facility] LEVEL 4 [facility] 2021-11-21 2021-11-21 (TEL) STLMLC STLMLC [id number] Co mmon 00:00:00 00:00:00 [facility] 2021-11-19 2021-11-19 (TEL) STLMLC STLMLC [id number] Co mmon 00:00:00 00:00:00 [facility] 2021-11-19 2021-11-19 (TEL) STLMLC STLMLC [id number] Co mmon 00:00:00 00:00:00 [facility] 2021-11-19 2021-11-19 OFFICE STLMLC STLMLC [id number] Co mmon 00:00:00 00:00:00 VISIT EST Spir it PT LEVEL 3 - [facility] 2021-10-24 2021-10-24 Outpatient DARIA AGUILAR [id number] [facility] 04:35:00 04:35[place] [id number] da [facility] Outre h Program 2021-10-17 2021-10-17 (TEL) STLMLC STLMLC [id number] Co mmon 00:00:00 00:00:00 [facility] 2021-10-09 2021-10-09 OFFICE STLMLC STLMLC [id number] Co mmon 00:00:00 00:00:00 VISIT Spirit [facility] PT - [facility] LEVEL 4 [facility] 2021-10-01 2021-10-01 (TEL) STLMLC STLMLC [id number] Co mmon 00:00:00 00:00:00 [facility] 2021-09-27 2021-09-27 Outpatient ROSIO SOMMERSE MHSE [id number] 07:32:00 23:59:00 [facility] 2021-09-10 2021-09-10 OFFICE STLMLC STLMLC [id number] Co mmon 00:00:00 00:00:00 VISIT EST Spir it PT LEVEL 3 [facility] 2021-09-04 2021-09-04 (TEL) STLMLC STLMLC [id number] Co mmon 00:00:00 00:00:00 [facility] 2021-08-21 2021-08-21 (TEL) STLMLC STLMLC [id number] Co mmon 00:00:00 00:00:00 [facility] 2021-08-21 2021-08-21 OFFICE STLMLC STLMLC [id number] Co mmon 00:00:00 00:00:00 VISIT EST Spir it PT LEVEL 3 - [facility] 2021-08-20 2021-08-20 (TEL) STLMLC STLMLC [id number] Co mmon 00:00:00 00:00:00 [facility] 2021-05-21 2021-05-21 (TEL) STLMLC STLMLC [id number] Co mmon 00:00:00 00:00:00 [facility] 2021-05-21 2021-05-21 OL DIG E/M STLMLC STLMLC [id number] Common 00:00:00 00:00:00 [facility] 11-20 Spir it [facility] 2021-05-16 2021-05-17 Outpatient [facility] [id number] Memoria 18:45:00 05:59:00 r [place] 01 l [facility] 2021-05-16 2021-05-16 Outpatient GOGIA, MHSE MHSE [id number] MH 12:45:00 23:59:00 [facility] 2021-04-05 2021-04-05 OFFICE STLMLC STLMLC [id number] Co mmon 00:00:00 00:00:00 VISIT [facility] 4 [facility] 2021-03-08 2021-03-08 Outpatient STLMLC STLMLC [id number] Common 00:00:00 00:00:00 [facility] 2021-01-29 2021-01-29 Outpatient STLMLC STLMLC [id number] Common 00:00:00 00:00:00 [facility] 2021-01-17 2021-01-17 Outpatient STLMLC STLMLC [id number] Common 00:00:00 00:00:00 [facility] 2021-01-03 2021-01-03 Outpatient STLMLC STLMLC [id number] Common 00:00:00 00:00:00 [facility] 2021-01-02 2021-01-02 Outpatient STLMLC STLMLC [id number] Common 00:00:00 00:00:00 [facility] 2020-12-04 2020-12-04 Outpatient STLMLC STLMLC [id number] Common 00:00:00 00:00:00 [facility] 2020-11-16 2020-11-16 Outpatient STLMLC STLMLC [id number] Common 00:00:00 00:00:00 [facility] 2020-11-06 2020-11-06 Outpatient STLMLC STLMLC [id number] Common 00:00:00 00:00:00 [facility] 2020-10-03 2020-10-03 Outpatient STLMLC STLMLC [id number] Common 00:00:00 00:00:00 [facility] 2020-09-28 2020-09-28 Outpatient STLMLC STLMLC [id number] Common 00:00:00 00:00:00 [facility] 2020-08-24 2020-08-24 Outpatient STLMLC STLMLC [id number] Common 00:00:00 00:00:00 [facility] 2020-08-17 2020-08-17 Outpatient STLMLC STLMLC [id number] Common 00:00:00 00:00:00 [facility] 2020-08-11 2020-08-11 Outpatient STLMLC STLMLC [id number] Common 00:00:00 00:00:00 [facility] 2020-08-03 2020-08-03 Outpatient STLMLC STLMLC [id number] Common 00:00:00 00:00:00 [facility] 2020-07-31 2020-07-31 Outpatient STLMLC STLMLC [id number] Common 00:00:00 00:00:00 [facility] 2020-06-26 2020-06-26 Outpatient STLMLC STLMLC [id number] Common 00:00:00 00:00:00 [facility] 2020-06-20 2020-06-20 Outpatient FERGUSON_MILDRED AGUILAR [facility] [id number] [place] 10:21:00 10:[place]00 [place] [id number] [facility] 2020-06-15 2020-06-15 Outpatient STLMLC STLMLC [id number] Common 00:00:00 00:00:00 [facility] 2020-06-14 2020-06-14 Outpatient STLMLC STLMLC [id number] Common 00:00:00 00:00:00 [facility] 2020-06-12 2020-06-12 Outpatient STLMLC STLMLC [id number] Common 00:00:00 00:00:00 [facility] 2020-06-07 2020-06-07 [id number] [place] 03:50:00 03:50:[id number] [facility] 2020-06-01 2020-06-01 Outpatient STLMLC STLMLC [id number] Common 00:00:00 00:00:00 [facility] 2020-05-29 2020-05-29 Outpatient STLMLC STLMLC [id number] Common 00:00:00 00:00:00 [facility] 2020-05-08 2020-05-08 Outpatient STLMLC STLMLC [id number] Common 00:00:00 00:00:00 [facility] 2020-05-04 2020-05-04 Outpatient STLMLC STLMLC [id number] Common 00:00:00 00:00:00 [facility] 2020-04-24 2020-04-24 Outpatient STLMLC STLMLC [id number] Common 00:00:00 00:00:00 [facility] 2020-04-20 2020-04-20 Outpatient STLMLC STLMLC [id number] Common 00:00:00 00:00:00 [facility] 2020-04-19 2020-04-19 Outpatient STLMLC STLMLC [id number] Common 00:00:00 00:00:00 [facility] 2020-04-18 2020-04-18 Outpatient STLMLC STLMLC [id number] Common 00:00:00 00:00:00 [facility] 2020-04-17 2020-04-17 Outpatient STLMLC STLMLC [id number] Common 00:00:00 00:00:00 [facility] 2020-04-11 2020-04-12 Outpatient [facility] [id number] Memoria 14:07:00 04:59:00 [place] [address] l [facility] 2020-04-11 2020-04-11 Outpatient GOGIA, MHBL MHBL [id number] MHBL 09:07:00 23:59:00 [facility] 2020-01-26 2020-01-26 [facility] [id number] Common 14:36:00 14:36:00 [place] [address] Drive [facility] 2020-01-24 2020-01-24 [facility] [id number] Common 13:45:00 13:45:00 [place] [address] [facility] 2020-01-19 2020-01-19 [facility] [id number] Common 08:40:00 08:40:00 [place] [address] [facility] 2020-01-18 2020-01-18 [facility] [id number] Common 15:20:00 15:20:00 [place] [address] [facility] 2020 2020 [facility] [id number] Common 14:44:00 14:44:00 [place] [address] [facility] 2020 2020 [facility] [id number] Common 09:39:00 09:39:00 [place] [address] [facility] 2019-12-24 2019-12-24 [facility] [id number] Common 17:41:00 17:41:00 [place] [address] [facility] 2019-12-21 2019-12-21 [facility] [id number] Common 09:20:00 09:20:00 [place] [address] [facility] 2019-10-27 2019-10-27 [facility] [id number] Common 14:08:00 14:08:00 [place] [address] [facility] 2019-10-13 2019-10-13 [facility] [id number] Common 11:40:00 11:40:00 [place] [address] [facility] 2019-10-04 2019-10-04 [facility] [id number] Common 08:00:00 08:00:00 [place] [address] [facility] 2019-08-26 2019-08-26 [facility] [id number] Common 09:30:00 09:30:00 [place] [address] [facility] 2019-08-25 2019-08-25 [facility] [id number] Common 11:51:00 11:51:00 [place] [address] [facility] 2019-08-24 2019-08-24 [facility] [id number] Common 14:40:00 14:40:00 [place] [address] [facility] 2019-08-17 2019-08-17 [facility] [id number] Common 11:59:00 11:59:00 [place] [address] [facility] 2019-07-05 2019-07-05 [facility] [id number] Common 16:00:00 16:00:00 [place] [address] [facility] 2019-06-22 2019-06-22 [facility] [id number] Common 11:53:00 11:53:00 [place] [address] [facility] 2019-06-22 2019-06-22 [facility] [id number] Common 10:22:00 10:22:00 [place] [address] [facility] 2019-05-24 2019-05-24 [facility] [id number] Common 10:00:00 10:00:00 [place] [address] [facility] 2019-05-05 2019-05-05 [facility] [id number] Common 15:44:00 15:44:00 [place] [address] [facility] 2019-05-04 2019-05-04 [facility] [id number] Common 15:20:00 15:20:00 [place] [address] [facility] 2019-04-27 2019-04-27 [facility] [id number] Common 17:18:00 17:18:00 [place] [address] [facility] 2019-04-26 2019-04-26 [facility] [id number] Common 17:24:00 17:24:00 [place] [address] [facility] 2019-04-20 2019-04-20 [facility] [id number] Common 08:27:00 08:27:00 [place] [address] [facility] 2019-04-12 2019-04-12 [facility] [id number] Common 11:00:00 11:00:00 [place] [address] [facility] 2019-03-30 2019-03-30 [facility] [id number] Common 14:00:00 14:00:00 [place] [address] [facility] Results Test Description Test Time Test Comments Results Result Comments Source Urine Culture, Routine 2022-05-09 00:00:00 Test Item Value Reference Range Interpretation Comme nts Urine Culture, Routine (test code = 630-4) Final report A POCT HEMOGLOBIN [id number] 18:42:00 Test Item Value Reference Range Interpretation Comments HEMOGLOBIN A1C (test code = 4548-4) 7.7 % 4.0-5.6 A Lab Interpretation (test code = Abnormal 40018-6) [facility] [id number] 18:40:02 Test Item Value Reference Range Interpretation Comments Case Report (test code Surgical Pathology = 104) Report Case: [id number] Authorizing Provider: Trina Perez MD Collected: 03/08/2022 09:24 AM Ordering Location: [facility] Received: 03/08/2022 02:08 PM SERVICES Pathologist: Pinky Kumar MD Specimens: A) - Biopsy, Gastric, Bx B) - Polyp, Colon - Transverse, cold snare DIAGNOSIS (test code = [id number] 3220) FuZzEwMzNcZnRuYmpcdWMx IHtccnRmMVxlcGljOTYwMl yuhdMnTKKzsAOrO3Zxemjg KCwnVG4zHS2lgParyFNctN DhQHVlDsXrx1tpc002gMRe t2buSCEWliusrZk1xMzpY9 2jl2W3RtftU00myUNcZAB6 PSEtBGWthIAsYQIyTWV9ZM GvrWIqA0qtLPTlTO8hflzu RVuzQRxzNLIshIQ6GUSwxQ BuA0ElHSZwCIzlWMTbdww3 ZyJhCc1mhQDwoDebADvgXT WyDHPjXKzdICQyDaPhJS2y G5QVJTQSHREWDP3DK4ixgT IgPE4fXGUDAFZDPrjKAEyH MYQFOGAIDPeSJ8PYSFGKCf vfVQlUUNdxLACgQYRpIG4S IElOVEVTVElOQUwgTUVUQV XQWZDXWUkmGQdXOIhLA5wZ YX6QUATMXgEHAw0WWEWTQE VOVElGSUVEXHBhciAtICAg Wf7dSJPKUFLEUxDWUQXBTY PIZD8VZZXSKLuDDW9PH2AT SVNNUyBJREVOVElGSUVEIE 1RIVRGWDXCTyOkZ4VJBG5r yHAzWRLwaiKLUdFCX8kWPg qyQPKGJeFUQHCTBEYBD8iN LiWVF0wVOCscOL5BQQERA4 WIRPxslUUgOH0hDEVNS2yG NO6IYOGYLUIVN1XNHEGDLP kWSV7UTLvPOQopYf2pIKvD V70YF8AOYeRPDCMND97JJM 9VUyBPUiBIWVBFUlBMQVNU YUOrO3aUHqyBU3fgGKIzTJ TgTO17gYNfuLdxEPjynaMr jbH0HNVpLZO6AS8mtyNoLJ OjjVBztAxhqaRrNLdgw2Pu BXkqHVSeAS6kzPmxIFWgVD 1cERCmT5ilzF0pbff3MsDo UPJtAaS6LLZganG1Pht8KG GqGPfot4vyc0JmXXTiKSg2 dGtlZqYnFLTjg0ioeiVdRx EoELJzHDEzYADaaXLeP239 j3iwo6wndtPeiHI3VQNrWO V2JUtdspDjcjC2XMamnWMm IbF0OKsrfdYwFXxungOnkt WnMvd7SXVyP019BSP8nSaz l3qlDTL2RGVyBHMgCnHlBp 5taGMrA113NZFfESBTUHOo dAw3NAHcylTsujRjxKBId5 61Y657g9fuJWXnwvNvkIrR eyjhd8abB659BDQbwJSvwd HgZvWpMJKltOLyhHT0IKJh JU7rdohpBDcrBQlpQOHxdt A6JEOcxMUrG8SqSAObJC0o hqzjYWL3LNdmDMHsGZG6Kd ZzCXBka4Nuznd5SlPhqf4y ol55NCR7l4ZduAnqFHE7MQ H4AuPxPx3joRCkJMDlPB7c YeHtzBVfYFYzsl92uEucPC fjWUQ9WZCvicByx6Lni2kj WuYxarGzR4pxP3HfVFLzXQ CiYRQpOeAynlTfu9Nun2Ze aBAmeUk1m3ppQXAsTCMwzB kfd4cjHOF7MNFrdYAnC4ge mD6zQDZzQU1phxnoz7ipUP ziIIcbZNGkwOW3xdT0FTDg mDVmL7OzwA9lFPQcJVdwLC Wxchu2OjLxVx0gqEMplSgu MFxzYmtwYWdlXHBnbmNvbn RccGduZGVjXHBsYWluXHBs YWluXGYwXGZzMjRccWxcbG FuZzEwMzNcaGljaFxmMVxk MqMdRVMeRGwhD5ahDhNsVp XhRdj2NMPpyVJyNENxAol8 TOWspQEbCPKZsRrajO7eDS OnxAbugA5vdCM9LYMwcnVy sCTFoG0dJYPErD0vOyF9Gs WuRjD2BBy6YkCijBFceL0= CPT Code(s) (test code w6tksCFfCVXupHX6SnQmYG = 3357) Fjr7ntf1RhcPCveKTyVUbt wBWszzGiou43uAT8lE90DR 3oIPSoTjD7VJSuqkL9Lqv6 ENTdNKDsbBQgV196h5iic9 umyoSwdIV4lXegLAEvavpv PiR4WEpoAXAdtdlwJMf2SS nyTDPikQD2WQFcuSXhS6Nt JHVuUG9fmeu3COK3YQneMH XaBiS1SROjrAHqOQAcmKmt PNdnh908VGV8HoArAZXvrl JkiKzyjT7rZsPrUFP7OTHo NSBYIDJccGFyfQ== CLINICAL HISTORY (test h4hbsVThJZUumUT8SxSvYU code = 3356) Jqe3vcx2YvrVZhcQCtVGol iMUzzeAfel54oZW2zX87VY 3xGBLpZeA8VCCdxfN1Brc5 TDBrLTChgFJzA982j0kns5 gjsvXsjAE2JOBpTRGeQ4Qi OV0gBQBwlWQuP56qaPCbAR Q2AEVcZQBxfNXsDROrSZD0 JTQuqGYzQ7ogHMWnTA0wyj itEIhzLGxhOXSepCI3ROBs tMXrT1NoTJDrHBmbSLGcjr f2EcAcGa5erETcwQvdDKbq YXJkXHJpMVxwbGFpblxmcz FxPTLeYYIUf24laYAtOKPr XUCjyqgjSGZba2s9kP20sC WkjEXrSZqeOkpgzL7tnIRj vIEvJLWfZYGniYfyD1GuvS F0NHTyF9KpSBI1aTOtCXYw xyFPqIBvbF8gvQPxl8OteE k3OQAxz8j9fQ19jFYoy2Gw rCCiZDO0kkAwORPbPgiyTE IqPZLzcFpiJBQtrfIdj7Nt mjV6dLCzXUilKIFoY5KtBT DwUDXsfjHfh6fzgeFlHW5l ZXJccGFyfQ== SPECIMEN SOURCE (test y7upmCKrTSEvlVP9HeQuUN code = 3377) Rcr2edu4LgaDYrkGMzWInq yMAulrMmdt44iIK2tH75CF 0qSYOjXsA2SSHcstO8Wlp0 KVWjIMQdeHIdK751r3cvi1 duemJinNO1pZtwAEVaxfoz DxB5BGjuHUYtyiegHDe9DO vhJKTwtXH4EDUnvCVnH7Ep YAIsYK0cadz6JTM4MXzlFC QqGgV3OQBujVMwVIOykCsq JCqdc023XKE7RxEdOOZveq UjrKeqxU1jGuLkAJHUZtEe XtkjeUP6FZGrNYF9rjjrPB klpzByZf7oFCHxqPwrSYDd f1vwrdtaxZGkfwV1QMBlBW xwYXJ9 GROSS DESCRIPTION (test n0htlEHoXUTxoUDMMATnD5 code = [id number]) koxzRrTFDwjUIgA2Nnzfzm MUeuIL3kVX9ppAnupEWigY NeHZ1IVJJuDvNpJXOxdUVa asAvIqVyMYHllJYiiDD5TC NbHK2akxekHWnnJIpvXKYv fcY2OILpoXXdE5KeLIAwBH 2dzdpzEEW3TKyxmQ1bwrOP JvyfXq0mdRQdyEydXkHtRx NoYXJzZXQwXGZuaWwgQXJp WWw0bU8UEmhmNVJ7EHDPIr spKXLdHD3Vl3iaQXBavLNu YFE6EWrdiQPxKGKoSIVxIX o9WUMdDMaykMDgMT5apZig XxhnqEjaa6XqtYXtHCplKQ EdGMPeVLutZXWnGE1EDbTn OZG7SbU4XXDdQOs7QWn5QX 9WUyAiICAzMDAzOTQxMSIg AZz9WMyqOX0FOMXuGSWsTF P9KnU9KIW3POPoSWZfOkBq XGYgQXJpYWwgXFxmbCBcXG 5ctGvueCHhecQVKoZUkM3t e0egJKadb8UboMZwZREasv ANClxlcGljTmVzdERvYzEg DQpcbHRycGFyXGxpbjBccm luMCANClxsdHJjaFxmczIw ZYYgZDOdkMGkwM3wlqQrui AmNRBqeGDwCCXrglXpk3Hg XOeqbrUvOTPuuAxeVTT2fA IiSUDhFRNeVEOrRC94ZGiP NHMgbmFtZSwgbWVkaWNhbC ByZWNvcmQgbnVtYmVyIGFu ACMfR1PakTNnVvKabP5en1 jxZFBfSFZcg18evXI9xbGb WoN9ABPzoe1clT1cYH33C4 2iQI7qo0JhfyRsLRVad9S3 ZSBmcmFnbWVudHMgKGZyb2 6zNL6oTSYdXPBrHNYkJwPa bSBpbiBncmVhdGVzdCBkaW 6wlkYll90zZhOFpIEtx5Nv T3alBN0vzHHwk3DgvPg6qA UkCGcbCDFaqY1zJo4bkV62 sB2tSEYxnHSuHQGwq67flZ 6rU2Scf3G9gZZaLGEaBOEw ciANClxwYXIgDQpLTCAocm VzaWRlbnQpXHBhciANClxw bGFpblxlcGljTmVzdERvYz OafNaxfM11YXUkwSBqPUV2 WF4oRVYchibxKAQeUAZePP P3TJeboQ36rVXwQUHyJIJv nOUchO9Co2ebRNHmeDJxSK F7KMrmiMAtUSQaATYwTByv WkQaK6ZIVVFwSkc2VCw8Tj SbQSm3TXicO6OLTRNkHPIw ORB9TZSsBsA7IMb4BPIVAc 4qWtXvVwM1OCB7SVV0BRsp IFxcdCAyIFxcZiBBcmlhbC ZvAVXaIUmaykC1JKCtGZUo eGabdT8sWf4gYM8ucXFaGP MjhQ8iDA4kSWUklaO8ETGe QV0quGVeHF2TSKEqlIPOVA D7GO7xMWUOVxsfxQHlRQCo fNpuLPpxcR2kGW1ZWLy8ld NoXGZzMjAgVGhlIHNwZWNp kBMwKLyxFZSjQ4QlhaWyZF wgPKKawu8sxEwuBUiePjZq bGVkIHdpdGggdGhlIHBhdG kzhjZhN2Y2jfWuEF3pRQPk SHXdY6ZxFITyB36zRABdwW 9ySOJiWY8vMHR3giIpx6Ns cnNlIHBvbHlwIiBhbmQgY2 6mk2knrRLje0XaMQT0XL2f aIuhnpWghFWdm2LhC566PI PzRQV8gOLvoSAmAgGpY31m shGpSJnrGlYcY20lrV0wB6 SzYAGpc3FhEFhoLZ3asT3k WF5cGYloWFTgYFIgnIWsGB fcVWB7Va8rxWQvMRChmmQ4 v5DcAQSnxOdac0acExMcwX z5aqB6xB5sTCdxACFrc3Cv dHRlIEIxLlxwYXIgDQpccG RqZO9VX1kyYKRhq8maNI73 RQcqMTSsDRwaxRnhaX9oAX KdO34ie0QZw2MeZQOaHUxp h3tjcUnjo5IpjVDmHPsyFQ OztDUgVEthiY9xRcOqj4hj vBp4YMdyxiB9BWGqob7NGt sjtW0aXuXyi8saxJm4OSVD ZvhfinG8t1biaJsue3VzqH TuFF1HVn1= MICROSCOPIC DESCRIPTION v3nroKCyQOHonCM8FkJuJS (test code = 3371) Nco0aoz5FwlIBpsOCjLGic pZFimoUnkt69aKK4yT05CT 4fZIWoQpS9OBPppbW4Hhn3 HAUqVSBlhYJoI509t1oed8 pqntMewMX2dLlrBBCjjmdw CgU8DCbrFFBxmhwjXVp3MY nlZDOqzCO0WGKnqCNhA6Rk DJJtEJ6dinz3JAT2IIvyCI WsHrG5HZDaoPLtISVafGlf UPlms449PIG6KvCaPCZkgw XqfIxidO9rZbBdGJKPXAMl z2AuGNIxMQQlny9= Gross assessment was [facility] performed at ([facility], = 2777) Department of Pathology, [address] [place] [address] 96759, Technical component was [facility] performed at ([facility], = 2778) Department of Pathology, [address] [place] [address] 96942, Professional component [facility] was performed at ([facility], code = 2779) Department of Pathology, [address] [place] [address], [facility] CaliforniaTissue [id number] 18:40:02 Test Item Value Reference Range Interpretation Comments Case Report (test code Surgical Pathology = 104) Report Case: [id number] Authorizing Provider: Trina Perez MD Collected: 03/08/2022 09:24 AM Ordering Location: [facility] Received: 03/08/2022 02:08 PM SERVICES Pathologist: Pinky Kumar MD Specimens: A) - Biopsy, Gastric, Bx B) - Polyp, Colon - Transverse, cold snare DIAGNOSIS (test code = t9kkeNCrBQObh4dnIBKebF 3220) FuZzEwMzNcZnRuYmpcdWMx IHtccnRmMVxlcGljOTYwMl fasoBuRYUltVGbJ3Tgmafg ZFtdGU4sRR2ynGuunUIjeV MtHKHiAuIfg1qmp885fUUf t4ggHUROhyjlcZh7iEibY1 7hg3O4IfwwZ33lqSOvGOA3 NAJpVTRoiDPjASUlLUK9CJ SnfSQkB1scPYPyQI0oifhq SBgiFPkhMHSqtOE3SFCiwL YcY9BtMFPkAYkzYVBqrww4 FaOlVs1srRFzhVjtYFdfZV ViFIXwFDeqPFEmNmJtFW3y K0MWBBOTBYBKLU1PC7iblG MpRX2mIRDIFICOXddCKUsF UUFWXQLAOUmLX1AWTILUPy grLSjCEQxfFCWxESPeLG4O IElOVEVTVElOQUwgTUVUQV LFEPOLNSigAZzCSWoBQ8sS FF9KIDWOSrCUDw2JMABAZA VOVElGSUVEXHBhciAtICAg Hg7uQRLRHLEJBnZOMGMFRV HUTE5KYWBKOKhQLY4PM1GF SVNNUyBJREVOVElGSUVEIE 1FFXOIIMBSIwBpG3HCTZ4u nEKpWTDlbiIQSxGTB3iCPp paQSBOQfOMGMPMLCVAY3iJ UgESW1gPTKphUJ1QUXAKR6 LYSTkveSLnLJ4hHCHNA4xL JN5QOICGELPLO2ZMYZIFPQ aPNN9RGZlOIWhqAm7rAGqG G34HB5IWDhDFGBBHB84NWC 9VUyBPUiBIWVBFUlBMQVNU GQLkZ6sUTwcFD0egYTGbHD DtLP00pHTdbJiqIZxjvzJg cvI0EYYuHTT3KJ1bknIjAF GqsLOlgSxejaWfOAilc7Ra QMirWZEyZM3ieGjwKFYoHU 5iDWUdX3kiqQ7ctfo5YiWw JKOoJxA4NMUzagE6Kbw9IJ VlMRxtk4qhv3KlQJRlCLv4 qYsoKqXaTLKch4nwraSbDz WoFMYhENTgPDFehQYgZ075 h4tlk4fkkjLsyEF3DSMxAY O5OMirxoDfxtR5SAtwmUBe ZcG2VYtrzdKlYHbiphLwnv GaJfp9FMVbS788XSZ7zXgz k6rlUXD7EOAyGNKnMsFsXf 2ftNDgV552TQGeCRWMGGOh gMq5AGXebfWoqzQeeWGVb4 67O034v0drATYncmUreZjB bbdxq6guN380FMGowSIcox LsNtNcODHrzMQcbYL2HFKp OF1vzpnzVWdqPOnkNFHtwh S5QYCdqWYeE1BcZGQfOS8h icgcJZU5CMfgRQZaYFY3Mp WzSIEgt6Wvzae2XjWlbl5z ct05XSX5q8PwhWqdWHT6AS Z0LuRiEa2jfEEyPTWcGK5v YeEboUGsEMQbrm72oPxxXN fgEYE2NBZwjqGzn3Car9kh QnOfnzFgA7boZ5RvVZKoWM LeZNZoJhEfcwNph5Yvp3Yj lBOuzOd8o1dyZEEbFMXefG eci4uwUIL7VDGudFWoU5yh uE2xRKPkZN8xepore3xdDL qjCBeeSSWyoLY5jfQ2CIGb jYFaE7OxoM5uEKAdMWegTK Jdpmi7QfIiNm9nrKHusSsb MFxzYmtwYWdlXHBnbmNvbn RccGduZGVjXHBsYWluXHBs YWluXGYwXGZzMjRccWxcbG FuZzEwMzNcaGljaFxmMVxk WdRdUQKmFRtcJ6xtPbCfBb LdNem0FYBskSGmPDVzNsx7 FBKfaXTwAMVGkQaqlN5aSI RzxNlirH0dbQK2JBJrrmTd jWBUwV9gNUZLdN2vZzK9Ik TlFtD4DDi9IpQdeURfmL5= CPT Code(s) (test code e7vkoYKzFHMuuAC2OjMmQS = 3357) Con1tdu2KfyLQhdXTaGNdg rHZkvfIcob32pNP7kL47AH 3rPWZbGxI5DJUcxkB7Pym6 WZIlWYZozZBcU072t0qjn5 jnduCkvMA7dDvrYUYxsndk SoA4SVhwPETxtkmtGDn0NJ omXWHfmIH9ATMgvIIoV3Lv IOKfTW2rcqa6RMR0RZgzBG CpElU6GVXvoUEqTGWpyKfk CYbfl670QFD1PsDlWYKynp CxoWvaaU1sNxRpEMD0PMVs NSBYIDJccGFyfQ== CLINICAL HISTORY (test h5zwvQYcWBNpmFB5KjAfCO code = 3356) Lff5fyo9FhxQPgqREzIXqm zRDhudLtee73yRB6oW99MM 6eAGWeRlT5UIFhzdM3Hys3 PXXwIGYyiEKmF059j3lvx7 qdwcYfmAG3KRAeGRXaZ1Xj UI3aUOAktCKvG55czMDfRO Y3WVInWNCheZDjALTdOPD7 RWAgcZCrB7xdFMBsHP0heu sqGNduSTcnLJLzrAC7AGQl vZHgM2LzHWNyZPgzIUSgmb v4OjAoIt7dpLHqlCsvRTvz YXJkXHJpMVxwbGFpblxmcz ZkAMQyDBLEy95sfKHtCINl XOGfplmoCAFuh0s7mH12hK ZjhZTvUCjaYdrsvG3mpTLf cPQtBNGcOZXgjJiaP3VklJ P6WUIlE2EfPLM5wHQhMMEp rbTQqTMfmB1yvIXuy9CypM o3GDPsi2f0zZ25qHNcp4Mt aVWpMXP6plZhLUSfEchuJP WrMWZfrTdoRJTgnyXgc2Bt vgI1kAUbQLhwFZYrC8IjAI GbLDXrfiEdm8luzgXrKO2x ZXJccGFyfQ== SPECIMEN SOURCE (test d5tweGAsKCYewND2MgXxEO code = 3377) Aqm9scl7FceWSwgFEaKMpk tZHsfaNjvf10hLG6oX64FZ 0qEIZaQjD4OBAtfoH6Rpc8 JMCqFZTkmPXrL114d2gne8 byyiGhvTC3vLxnSADwvrue DcB8QWbsKSDdeiijLDw2TY fqPXOdzHO2FRSkyIYjF4Rg IXPjLF7rwbl4NXP9VFpgFP GbEjK1WKJrwKDsSGGhaZig ZIvtl975HKR0DlSfWRUxcx PhaAepgD9sGzFyLFIWBfLj AuwgqZK8PWUkYWY2pqteUK fhzpLoUw8eAXYuhKpkNZZz k3zqebdvlUWulhD6VQIcAE xwYXJ9 GROSS DESCRIPTION (test c2ilrUPvVBFloDJNHUHfW9 code = [id number]) tvtdKzMFIvaQFgB2Xmtdqr FHvcBN7jEN6dbNeqjWFkmD SsNX9RNSJxRlOyXSDvcBHa zyRnWzArULKziWXbqLL3SZ FdIS1bjbweQOsxCNsqVGFo tkB3BEQgiGUrI7FrPYZnCF 4ncsfaJEN5XTlvdO5hsiXW RgooEs4qrGAfzBuzElLhXf NoYXJzZXQwXGZuaWwgQXJp XKl9lH3UOtzaIKN0VIYXTm diTEElDQ5Om8fzUIVopVMf KTG1YLxncEBiISNoIOGtNF y5OHAuDCxszSJqIF3bbOsh LffdoYdrf4IvgCGfGPshRW CmOPJqQKjxBHUdTA9ATmSu IJN2JqY1KSHpFLp7DUv6WU 9WUyAiICAzMDAzOTQxMSIg NEb6XHryLY4AHFSeHVBkGV C2BaI8DYZ8TDCuIYIrTsNr XGYgQXJpYWwgXFxmbCBcXG 7vrUlvbLXxtmFCDoZDaP4b q1hoLJmjm5EmbNLoUEJkkq ANClxlcGljTmVzdERvYzEg DQpcbHRycGFyXGxpbjBccm luMCANClxsdHJjaFxmczIw FSVjPUHjuKRnmN7hknRfar OwDEXswNQsNUXjfmMyx5Eo UPwvdnOqBDWqwPpsBEF8kK OmWAPaDEZgLKMkYU54AStR NHMgbmFtZSwgbWVkaWNhbC ByZWNvcmQgbnVtYmVyIGFu WWDsC7JhzQVqApZmwT4ea8 hzLQArXIDra71mjNX7vsVm WpB3TTXuvn8ezT9gJV74L4 7cXC2jl1YoupYqRRVok8L5 ZSBmcmFnbWVudHMgKGZyb2 4wAS4sEGFnCBVbLRDxQgMo bSBpbiBncmVhdGVzdCBkaW 2nehFpo17nYpGMhJXyi6Jk N3ktNR2lhVOdq5EutFn6zM KxSBuwYYVxyJ6hIn1auW44 bD2mOMSykRTdIQPsi76csG 6mT2Bwk1J2rIBpDUAlZRDx ciANClxwYXIgDQpLTCAocm VzaWRlbnQpXHBhciANClxw bGFpblxlcGljTmVzdERvYz IjjDhaxI25GCQupHBuJVK2 GR5bVUOsztuhVTUmSCOkEJ G2KNxwcG84dLFgFRFyDVNl aAApyE9De7yhGEPjwMIiQC H0RWgbbDKlWLFnRRQdFHij OoXsM3ZEYLSxSph5MFi5Pr TtRIp8QJcgC3QBRGGmIIAj NHX6HHJbVrS7XEy0VLUTJv 3yYsVkOcD4NIY7HOP6BQmi IFxcdCAyIFxcZiBBcmlhbC RhCVHpKWcugcL6VDDaHDEw wKdkzV5tEt4fKV3puPTbUR XzbN4xKD9xMDAxmqV1LADp CC1qeBEtXC5QGJMiwSZRXS U6DM4pVAKFDmuwaVCgPNZw bGvtAVybjX0uPP1OYFd3qf NoXGZzMjAgVGhlIHNwZWNp jRXcFAzoYQJjP1WfflFiQL ybNVFebr8eaJvkIDswYtTe bGVkIHdpdGggdGhlIHBhdG yjugGaH2X3ewPaVZ8cFIUg JRUwG6SoFKBvE62mAMUsxC 6rGATtMJ0eTBL3lvBnl0Ue cnNlIHBvbHlwIiBhbmQgY2 9ss7ctsICpj8PhVDY2MQ3o yLosefFbpQXtd6MvA306AI IuRUW9sMSghBUyVgVaL69u heCoWAhrBmIgW33meV7eG1 UiQWOom6JoYNwoEN7ahZ7s SX3hXWsuDGFjJPBtiFHrMB fcUHW4Yk5wqNToYQIsfjY0 y0QgIAIarPard1bmPpToaG p6eqG2gN8oYDajDGFee6Qv dHRlIEIxLlxwYXIgDQpccG KoWI7ET2nwMWNyn9dmUR09 VTgtVPYyZXyhpMpshO2jAU ZbI93nf1DTw5RrMABmRSch l7jmtDdak7KduHLaEMljDL NlnRKmCUbqqS9rKxHlw2zc tTa6VNimxoO3RPYnxu6OYw lxoU1aFpRrn2uxoXk2SAFB IdigvrE8l8ftnGqbq2NxfZ KqRH4ICy8= MICROSCOPIC DESCRIPTION q9yrwFLgSKVtnQJ8VtJeHD (test code = 3371) Lij4iqj0NsoLAvfGItTUvs dWFytqMidt96pWO5jF56CM 3aOLLiIcK9YLVjtlU4Nax7 GPYoQMPceBWeP149a2vps5 cfxkBpmKH1oWliFRSuubmh WjA7RKqsJZPjxteuKKy9OC imOYOkwML2AMOkiTRpN7Cc WXKaHO5muko0PRA0NXxkAM OcWnK0QYPgvTJvRNGhmZrg EPhdy302FAC5StNdMBCbob XxcLrvyV3oJzRoYEPMRWRv l6YpUSGvNQBjto5= Gross assessment was [facility] performed at ([facility], = 2777) Department of Pathology, [address] [place] [address] 01751, Technical component was [facility] performed at ([facility], = 3696) Department of Pathology, [address] [place] [address] 24294, Professional component [facility] was performed at ([facility], code = 2770) Department of Pathology, [address] [place] [address]28[address], [facility] CaliforniaTISSUE [id number] 18:40:02Surgical Pathology Report Case: [id number] Authorizing Provider: Trina Perez MD Collected: 03/08/2022 09:24 AM Ordering Location: [facility] Received: 03/08/2022 02:08 PM SERVICES Pathologist: Pinky Kumar MD Specimens: A) - Biopsy, Gastric, Bx B) - Polyp, Colon - Transverse, cold snare A. STOMACH BIOPSY- CHRONIC INACTIVE GASTRITIS, MILD- NO INTESTINAL METAPLASIA, DYSPLASIA OR CARCINOMA IDENTIFIED- NO HELICOBACTER PYLORI LIKE ORGANISMS IDENTIFIED ON ROUTINE STAINB. COLON, TRANSVERSE COLON POLYP, POLYPECTOMY- POLYPOID MUCOSAL FRAGMENT WITH NO DIAGNOSTIC ADENOMATOUS OR HYPERPLASTIC CHANGES Multiple levels were examined Signing Pathologist Direct Phone Line: [phone] signed by Pinky Kumar MD on 03/13/2022 at 6:39 [id number] X 2Esophageal varices without bleeding, unspecified esophageal varices type Cirrhosis of liver without ascites, unspecified hepatic cirrhosis type Screen for colon cancerA. Biopsy, gastricB. Polyp, colon, transverseA. Biopsy, Gastric.The specimen is received in formalin labelled with the patient's name, medical record number and "gastric bi opsy" and consists of 4 wan-pink mucosa-covered tissue fragments (from 0.2 cm to 0.3 cm in greatest dimension). The specimen is submitted in toto following filtration in cassette A1.SCOTT (resident)B. Polyp, Colon - Transverse.The specimen is received in formalin labelled with the patient's name, medicalrecord number and "transverse polyp" and consists of 1 wan-pink mucosa-covered tissue fragments (0.3cm in greatest dimension). The specimen is submitted in toto following filtration in cassette B1.SCOTT (resident)Performed.[facility], Department of Pathology, [address] [place] [address], [facility], Department of Pathology, [address] [place] [address], [facility], [facility] of Pathology, [address] [place] [address]66, TIS-Glucose [id number] 09:27:26 Test Item Value Reference Range Interpretation Comments POC-Glucose Meter (test 87 mg/dL 70-110 : TE STED AT [facility] code = 1538) [address] [facility] 7 7030: Spot Welder Line/Techni cheyenne ID = [id number] for ANGELIC BARRETT Lab Interpretation (test Normal code = 68791-2) [facility] CaliforniaPOC-Glucose [id number] 09:27:26 Test Item Value Reference Range Interpretation Comments POC-Glucose Meter (test 87 mg/dL 70-110 : TE STED AT [facility] code = 1538) [address] [facility] 7 30: Spot Welder Line/Techni cheyenne ID = [id number] for ANGELIC BARRETT Lab Interpretation (test Normal code = 90006-1) [facility] CaliforniaPOCT-GLUCOSE [id number] 09:27:26 Test Item Value Reference Range Interpretation Comments POC-GLUCOSE METER 87 mg/dL 70-110 : TESTED A T [facility] 7200 (BEAKER) (test code = [facility], 1538) [facility] 7703 0: Spot Welder Line/Techni cheyenne ID = [id number] for VERONA OCONNELL GASTRIC EMPTYING STUDY, SOLID 4 [id number] 15:17:00VANG, NA LY MDReason for Exam:->abdominal distension, diabetes, assess for gastropareisis [facility] 1970 Sex: FFINAL REPORT PROCEDURE: GASTRIC EMPTYING STUDY with Solids/Consensus Standard Protocol CPT CODE: 72749 INDICATION: Abdominal distention with diabetes. PROTOCOL: 0.51 [...] meal using the consensus standard protocol. Signed: Anibal Soto [facility]sil[facility] Verified Date/Time: 02/14/2022 15:17:33 HEPATITIS A ANTIBODY, [id number] 15:13:22 Test Item Value Reference Range Interpretation Comments HEPATITIS A IGG ANTIBODY (BEAKER) Reactive Nonreactive A (test code = 2797) Spot Welder Line ID - BSBASIC METABOLIC [id number] 14:51:44 Test Item Value Reference Range Interpretation [...] S NOT APPLICABLE FOR DIALYSIS PATIEN TS. Spot Welder Line ID - BSHEPATIC FUNCTION [id number] 14:51:44 Test Item Value Reference Range Interpretation [...] (test code = 29 U/L 6-55 347) Spot Welder Line ID - BSLACTIC ACID, [id number] 14:42:21 Test Item Value Reference Range Interpretation Comments LACTATE BLOOD VENOUS 1.76 mmol/L 0.50-2.20 Specime n slightly (2) (BEAKER) (test hemolyzed code = 1814) Spot Welder Line ID - BSPROTHROMBIN TIME/[id number] 14:38:41 Test Item Value Reference Range Interpretation Comments PROTIME (BEAKER) 13.5 seconds 11.9-14.2 (test code = 759) INR (BEAKER) (test 1.05 See_Comment [Automat ed message] code = 370) The system HitchedPic generated this result transmitted ref erence range: <=5.90. The reference range was not used to int erpret this result as normal/abnormal . RECOMMENDED COUMADIN/WARFARIN INR THERAPY RANGESSTANDARD DOSE: 2.0 - 3.0 Includes: PROPHYLAXIS for venous thrombosis, systemic embolization; TREATMENT for venous thrombosis and/or pulmonary embolus.HIGH RISK: Target INR is 2.5-3.5 for patients with mechanical heart valves.CBC W/PLT COUNT & AUTO [id number] 14:32:38 Test Item Value Reference Range Interpretation [...] (BEAKER) (test code = 2801) MR, ABDOMEN, [id number] 15:44:00ANETTE HANEY MD Please do per liver protocol Unlisted Reason for Exam - Click Yes and Enter Reason Below->Yes Unlisted Reason for Exam->cirrhosis [facility] ИВАНYVONNEJEREMYCIA : 1970 Sex: FFINAL REPORT MRI of [...] is identified. Status post cholecystectomy. Signed: Modesta Chahalort Verified Date/Time: 01/05/2022 15:44:30 ANTI- NUCLEAR ANTIBODY (SAMIA)2021-12-18 11:44:38 Test Item Value Reference Range Interpretation Comments ANTI-NUCLEAR ANTIBODY (SAMIA) (BEAKER) Negative Negative (test code = 418) Test performed by IFA method.Test performed by IFA method.[id number] 17:57:11 Test Item Value Reference Range Interpretation Comments FERRITIN (BEAKER) (test code = 45.90 ng/mL 5.00-275.00 361) Spot Welder Line ID - BSHEPATITIS B SURFACE [id number] 17:21:28 Test Item Value Reference Range Interpretation Comments HEPATITIS B SURFACE ANTIBODY < mIU/mL <8.0 (BEAKER) (test code = 647) Spot Welder Line ID - BSHEPATITIS B SURFACE [id number] 17:09:40 Test Item Value Reference Range Interpretation Comments HEPATITIS B SURFACE ANTIGEN (2) Nonreactive Nonreactive (BEAKER) (test code = 2585) Specimen is considered negative for HBsAg.ALPHA FETOPROTEIN (AFP), TUMOR MARKER 2021-12-17 17:09:40 Test Item Value Reference Range Interpretation Comments ALPHA-FETOPROTEIN (BEAKER) (test 2.3 ng/mL <10.0 code = 1094) Spot Welder Line ID - BSHEPATITIS B CORE ANTIBODY, [id number] 17:09:40 Test Item Value Reference Range Interpretation Comments HEPATITIS B CORE TOTAL ANTIBODY Nonreactive Nonreactive (BEAKER) (test code = 497) Spot Welder Line ID - BSHEPATITIS C [id number] 17:09:40 Test Item Value Reference Range Interpretation Comments HEPATITIS C ANTIBODY (BEAKER) Nonreactive Nonreactive (test code = 367) Spot Welder Line ID - BSBILIRUBIN, [id number] 16:49:19 Test Item Value Reference Range Interpretation Comments BILIRUBIN DIRECT (BEAKER) (test 0.2 mg/dL 0.1-0.5 code = 706) Spot Welder Line ID - BSCOMPREHENSIVE METABOLIC [id number] 16:49:14 Test Item Value Reference Range Interpretation [...] S NOT APPLICABLE FOR DIALYSIS PATIEN TS. Spot Welder Line ID - BSIRON, TIBC, % SAT. (WITHOUT FERRITIN)2021-12-17 16:47:34 Test Item Value Reference Range Interpretation Comments IRON (BEAKER) (test code = 547) 58.0 ug/dL 40.0-160.0 TOTAL IRON BINDING CAPACITY 311 ug/dL 250-450 (BEAKER) (test code = 769) IRON % SATURATION (2) (BEAKER) 19 % 20-55 L (test code = 2590) Spot Welder Line ID - [id number] 16:47:17 Test Item Value Reference Range Interpretation Comments ALPHA-1 ANTITRYPSIN (BEAKER) 184.50 mg/dL 90.00-200.00 (test code = 502) Spot Welder Line ID - BSLACTIC ACID, [id number] 16:39:11 Test Item Value Reference Range Interpretation Comments LACTATE BLOOD VENOUS 1.29 mmol/L 0.50-2.20 Specime n slightly (2) (BEAKER) (test hemolyzed code = 2872) Spot Welder Line ID - BSPROTHROMBIN [id number] 16:36:56 Test Item Value Reference Range Interpretation Comments PROTIME (BEAKER) 13.9 seconds 11.9-14.2 (test code = 759) INR (BEAKER) (test 1.09 See_Comment [Automat ed message] code = 370) The system [employer]ched[employer] generated this result transmitted ref erence range: <=5.90. The reference range was not used to int erpret this result as normal/abnormal . RECOMMENDED COUMADIN/WARFARIN INR THERAPY RANGESSTANDARD DOSE: 2.0 - 3.0 Includes: PROPHYLAXIS for venous thrombosis, systemic embolization; TREATMENT for venous thrombosis and/or pulmonary embolus.HIGH RISK: Target INR is 2.5-3.5 for patients with mechanical heart valves.CBC W/PLT COUNT & AUTO [id number] 16:33:51 Test Item Value Reference Range Interpretation [...] (BEAKER) (test code = 2801) STREP A [id number] 00:00:00 Test Item Value Reference Range Interpretation Comments Result (test code = 75959-8) Negative CHEM [id number] 20:32:00 Test Item Value Reference Range Interpretation Comments POC Creatinine (test code = POC 0.6 0.5-1.4 Creatinine) [facility] [id number] 20:32:00 Test Item Value Reference Range Interpretation Comments eGFR (test code = eGFR) [facility], STEREOTACTIC BIOPSY, BREAST, [id number] 15:59:00Reason for Exam:->calcificationAddendum [facility]#: [id number]: 05/14/2017 Aditya Corrales M.D. 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 Addendum [facility]#: [id number] - MM, STEREOTACTIC BIOPSY, BREAST, LEFTSTEREOTACTIC GUIDED [...] correct location, five specimens were obtained using MisocaIVA device. A clip was inserted into the [...] complications. The imaged specimens includes the calcifications. Aditya Corrales M.D. pth/penrad:05/09/2017 11:07:57 Shovel Oiler: Felicia SCHNEIDER)(M), [facility] [address] TISSUE [id number] 12:48:00Surgical Pathology Report Case: [id number] Authorizing Provider: Aditya Corrales MD Collected: 05/09/2017 1110 Ordering Location: [facility] Received: 05/09/2017 1312 Pathologist: Jackie Maradiaga MD Specimen: Breast, Left, LEFT MIDDLE 12 BREAST CALCIFICATION BREAST, LEFT, MIDDLE 12 O'CLOCK, CALCIFICATIONS, STEREOTACTIC CORE NEEDLE BIOPSY: - HYALINIZED FIBROADENOMA - COLUMNAR CELL HYPERPLASIA - COLUMNAR CELL CHANGES - MICROCALCIFICATIONS, COARSE, ASSOCIATED WITH FIBROADENOMA Signing Pathologist Direct Phone Line: [phone] signed by Jackie Maradiaga MD on05/12/2017 at 12:48 PMIn the sections examined, no atypical hyperplasia or carcinoma is identified.[id number] lesion Left middle 12 o'clock breast calcifications The specimen is received in a formalin-filled container labeled with the patient's information and labeled "left middle 12 o'clock breast calcifications" and consists of multiple yellow-white breast core biopsies ranging in length from 0.6 to 2.5 cm.Ink code: Black.The specimen is submitted entirely in A1 and A2. CG/ewPerformed.[facility], Department of Pathology, [address] [place] [address], [place] [address], Tel MM, DIGITAL, UNILATERAL, CONFER MARTA, MAMMO, LEFT INCLUDING [id number] 11:07:00Left breast calcificationsMRN#: [id number] - MM, DIGITAL, UNILATERAL, CONFER MARTA, MAMMO, [...] PROCEDURE MAMMOGRAM FOR MARKER PLACEMENTAwait pathology results. Aditya Ferraro pth/:05/09/2017 11:07:15 Shovel Oiler: Felicia Rizzo RT(R)(M), [facility] Mammogram BI-RADS: Post- procedure mammogram for marker placement [id number] MM, MAMMO, SPECIMEN, RADIOGRAPH, LEFT 2017-05-09 11:06:00Reason for exam:->Left breast calcificationsMRN#: [id number] - MM, MAMMO, SPECIMEN, RADIOGRAPH, LEFTSPECIMEN LEFT BREAST: 05/09/2017Five stereotactic guided biopsy specimens were imaged for the area of calcifications located in the left breast at 12 o'clock middle depth. IMPRESSION: SPECIMENThe imaged specimens includes the calcifications. Aditya Corrales M.D. pth/:05/09/2017 11:06:40 Shovel Oiler: Felicia BELLA(R)(M), [facility] [id number] Lumbar Spine 3 ViewsLumbar Spine 3 ViewsSARS-COV 2 AntigenSARS-COV 2 Antigen
[2022-06-22 23:17] LABS: SARS-COV-2 RT PCR NEGATIVE (NEGATIVE)
--- NOTE | 2022-06-23 00:05 | EDPHYS ---
Physician Documentation [facility] Name: Dena Nanec Age: 52 yrs Sex: Female : 1970 Arrival Date: 06/22/2022 Time: 20:28 Bed 11 Private MD: ED Physician Haseeb Chance HPI: 06/22 21:55 This 52 yrs old Female presents to ER via Ambulatory with complaints of cp Breathing Difficulty, Fever, Sore Throat. 21:55 The patient has shortness of breath at rest. Onset: The symptoms/episode began/occurred cp today, about 1500. 21:55 Associated signs and symptoms: Pertinent positives: fever, sore throat, shortness of cp breath, Pertinent negatives: chest pain, non-productive cough, productive cough, dizziness, vomiting. Severity of symptoms: in the emergency department the symptoms are unchanged despite home interventions. 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 N/A - Hysterectomy vc1 Historical: - Allergies: 21:03 NKA; vc1 - Home Meds: 21:03 Alprazolam Oral [Active]; dicyclomine 20 mg Oral tab 4 times per day [Active]; vc1 gabapentin 300 mg Oral cap 3 times per day [Active]; glimepiride 4 mg Oral tab twice a day [Active]; lovastatin 40 mg Oral tab 1 tab once daily [Active]; metformin 1,000 mg Oral tab 2 times per day [Active]; omeprazole 40 mg Oral cpDR once daily [Active]; sertraline 50 mg Oral tab 1 tab once daily [Active]; Toujeo SoloStar subcutaneous [Active]; trazodone 50 mg Oral tab 2 times per day [Active]; - PMHx: 21:03 cirrhosis of liver; Colitis; Crohn's Disease; Diabetes - NIDDM; Diverticulitis; vc1 gastritis; fatty liver; Pancreatitis; - PSHx: 21:03 hysterectomy; Cholecystectomy; vc1 - Immunization history:: Adult Immunizations up to date, Client reports receiving the 2nd dose of the Covid vaccine. - Social history:: Smoking status: Patient denies any tobacco usage or history of. ROS: 22:00 Constitutional: Positive for fever. cp 22:00 Cardiovascular: Negative for chest pain, palpitations. cp 22:00 Eyes: Negative for injury, pain, redness, and discharge. cp 22:00 ENT: Positive for ear pain, sore throat, Negative for drainage from ear(s), difficulty swallowing, difficulty handling secretions. 22:00 Respiratory: Negative for cough, shortness of breath, wheezing. 22:00 Abdomen/GI: Negative for abdominal pain, vomiting, diarrhea, constipation. 22:00 Skin: Negative for cellulitis, rash. 22:00 Neuro: Negative for altered mental status, syncope, weakness. 22:00 All other systems are negative. Exam: 22:05 Constitutional: The patient appears in no acute distress, alert, awake, cp non-diaphoretic, non-toxic, well developed, well nourished. 22:05 Head/Face: Normocephalic, atraumatic. cp 22:05 Eyes: Periorbital structures: appear normal, Conjunctiva: normal, no exudate, no injection, Sclera: no appreciated abnormality, Lids and lashes: appear normal, bilaterally. 22:05 ENT: External ear(s): are unremarkable, Ear canal(s): are normal, clear, TM's: dullness, bilaterally, Nose: is normal, Mouth: Lips: moist, Oral mucosa: moist, Posterior pharynx: Airway: no evidence of obstruction, patent, Tonsils: with erythema, no exudate, swelling, is not appreciated, erythema, that is moderate, exudate, is not appreciated, Voice: is normal. 22:05 Neck: ROM/movement: is normal, is supple, without pain, no range of motions limitations, no meningismus, Lymph nodes: lymphadenopathy is appreciated, anterior cervical nodes. 22:05 Chest/axilla: Inspection: normal. 22:05 Cardiovascular: Rate: normal, Rhythm: regular, Edema: is not appreciated, JVD: is not appreciated. 22:05 Respiratory: the patient does not display signs of respiratory distress, Respirations: normal, no use of accessory muscles, no retractions, labored breathing, is not present, Breath sounds: are clear throughout, no decreased breath sounds, no stridor, no wheezing. 22:05 Abdomen/GI: Inspection: distension, Bowel sounds: active, all quadrants, Palpation: abdomen is soft and non-tender, in all quadrants. 22:05 Skin: cellulitis, is not appreciated, no rash present. 22:17 ECG was reviewed by the Attending Physician. cp Vital Signs: 21:00 BP 130 / 57; Pulse 96; Resp 19; Temp 100(O); Pulse Ox 96% ; Weight 69.4 kg; Height 5 vc1 ft. 4 in. (162.56 cm); Pain 10/10; 22:00 BP 115 / 69; Pulse 94; Resp 18; Temp 99.5; Pulse Ox 97% ; Pain 10/10; pf1 23:00 BP 113 / 62; Pulse 95; Resp 18; Temp 99.5; Pulse Ox 99% on R/A; Pain 6/10; pf1 06/23 00:00 BP 110 / 64; Pulse 92; Resp 18; Temp 99.3; Pulse Ox 100% on R/A; Pain 2/10; pf1 06/22 21:00 Body Mass Index 26.26 (69.40 kg, 162.56 cm) vc1 MDM: 06/22 21:10 Patient medically screened. cp 23:00 Differential diagnosis: pneumonia, Sepsis influenza, strep throat, COVID-19. 06/23 00:01 Data reviewed: vital signs, nurses notes, lab test result(s), radiologic studies, plain cp films. Test interpretation: by ED physician or midlevel provider: plain radiologic studies. ED course: VSS. Patient reports she was exposed to flu by friend last week. Symptoms started yesterday afternoon, so will treat with Tamiflu and Amoxicillin due to concern for bacterial cause of sore throat. 06/22 21:46 Order name: COVID-19/FLU A+B/RSV; Complete Time: 23:18 06/22 23:19 Interpretation: Reviewed. 06/22 21:46 Order name: Strep; Complete Time: 23:18 06/22 21:46 Order name: XRAY Chest (1 view) 06/22 21:46 Order name: EKG; Complete Time: 21:47 06/22 21:46 Order name: EKG - Nurse/Tech; Complete Time: 22:14 06/22 22:53 Order name: Throat Culture EDMS EC/24 22:17 Rate is 93 beats/min. Rhythm is regular. AK interval is normal. QRS interval is normal. cp QT interval is normal. T waves are Inverted in lead aVR. Interpreted by me. Reviewed by me. Administered Medications: No medications were administered Disposition: 06/23 00:27 Co-signature as Attending Physician, Haseeb Chance MD I agree with the assessment and rt plan of care. Disposition Summary: 06/23/22 00:05 Discharge Ordered Location: Home cp Problem: new cp Symptoms: are unchanged cp Condition: Stable cp Diagnosis - Otalgia, bilateral cp - Acute pharyngitis, unspecified cp - Shortness of breath cp Followup: cp - With: Private Physician - When: 2 - 3 days - Reason: Recheck today's complaints Discharge Instructions: - Discharge Summary Sheet cp - Pharyngitis cp - Shortness of Breath, Adult cp - Sore Throat cp Forms: - Medication Reconciliation Form cp - Thank You Letter cp - Antibiotic Education cp - Prescription Opioid Use cp Prescriptions: - Amoxicillin 875 mg Oral Tablet - take 1 tablet by ORAL route every 12 hours for 10 days; 20 tablet; Refills: 0, cp Product Selection Permitted - Tamiflu 75 mg Oral Capsule - take 1 tablet by ORAL route every 12 hours for 5 days; 10 tablet; Refills: 0, cp Product Selection Permitted Signatures: Dispatcher [employer] EDPA Ricardo Ramirez PA PA cp Calcote, Vanessa, RN RN vc1 Haseeb Chance MD MD rt
--- NOTE | 2022-06-23 00:05 | ER ---
Nurse's Notes [facility] Name: Dena Nance Age: 52 yrs Sex: Female : 1970 Arrival Date: 06/22/2022 Time: 20:28 Bed 11 Private MD: Diagnosis: Otalgia, bilateral;Acute pharyngitis, unspecified;Shortness of breath Presentation: 06/22 21:00 Chief complaint: Patient states: "I started feeling sick about 3 o clock and the last vc1 few hours I feel really short of breath.". Coronavirus screen: Vaccine status: Patient reports receiving the 2nd dose of the covid vaccine. 3 doses; Pfizer chills, difficulty breathing, fatigue, fever, headache, muscle pain, shortness of breath, sore throat, Client presents with at least one sign or symptom that may indicate coronavirus-19. Standard/surgical mask placed on the client. Provider contacted for isolation considerations. Ebola Screen: No symptoms or risks identified at this time. Initial Sepsis Screen: Does the patient meet any 2 criteria? HR > 90 bpm. No. Patient's initial sepsis screen is negative. Does the patient have a suspected source of infection? No. Patient's initial sepsis screen is negative. Risk Assessment: Do you want to hurt yourself or someone else? Patient reports no desire to harm self or others. Onset of symptoms was June 22, 2022 at 15:00. 21:00 Method Of Arrival: Ambulatory vc1 21:00 Acuity: MARIANA 3 vc1 Triage Assessment: 21:10 Respiratory: Airway is patent Respiratory effort is even, unlabored, Respiratory pf1 pattern is regular, symmetrical, the patient has mild shortness of breath. 06/23 00:11 Respiratory: Onset: The symptoms/episode began/occurred yesterday. 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/22 21:05 LMP N/A - Hysterectomy vc1 Historical: - Allergies: 21:03 NKA; vc1 - Home Meds: 21:03 Alprazolam Oral [Active]; dicyclomine 20 mg Oral tab 4 times per day [Active]; vc1 gabapentin 300 mg Oral cap 3 times per day [Active]; glimepiride 4 mg Oral tab twice a day [Active]; lovastatin 40 mg Oral tab 1 tab once daily [Active]; metformin 1,000 mg Oral tab 2 times per day [Active]; omeprazole 40 mg Oral cpDR once daily [Active]; sertraline 50 mg Oral tab 1 tab once daily [Active]; Toujeo SoloStar subcutaneous [Active]; trazodone 50 mg Oral tab 2 times per day [Active]; - PMHx: 21:03 cirrhosis of liver; Colitis; Crohn's Disease; Diabetes - NIDDM; Diverticulitis; vc1 gastritis; fatty liver; Pancreatitis; - PSHx: 21:03 hysterectomy; Cholecystectomy; vc1 - Immunization history:: Adult Immunizations up to date, Client reports receiving the 2nd dose of the Covid vaccine. - Social history:: Smoking status: Patient denies any tobacco usage or history of. Screenin:10 [facility] ED Fall Risk Assessment (Adult) History of falling in the last 3 months, pf1 including since admission No falls in past 3 months (0 pts). Abuse screen: Denies threats or abuse. Nutritional screening: No deficits noted. Tuberculosis screening: No symptoms or risk factors identified. Assessment: 21:10 General: Appears in no apparent distress. comfortable, well groomed, well developed, pf1 Behavior is calm, cooperative, appropriate for age, quiet. 21:10 Pain: Complains of pain in Patient C/O headache, sore throat, and bilateral ear pain pf1 10,onset today at 1500 Pain currently is 10 out of 10 on a pain scale. Neuro: Level of Consciousness is awake, alert, obeys commands, Oriented to person, place, time, situation, Reports headache. Cardiovascular: No deficits noted. Cardiovascular: Rhythm is sinus rhythm. Respiratory: Reports shortness of breath on exertion Airway is patent Respiratory effort is even, unlabored, Respiratory pattern is regular, symmetrical, Breath sounds are clear bilaterally. 21:10 GI: No deficits noted. Abdomen is round non-distended, Bowel sounds present X 4 quads. pf1 Abd is soft and non tender X 4 quads. 21:10 : No deficits noted. No signs and/or symptoms were reported regarding the pf1 genitourinary system. EENT: Reports pain in left ear and right ear. Derm: No deficits noted. No signs and/or symptoms reported regarding the dermatologic system. 21:30 General: Patient ambulated with steady gait to restroom. pf1 23:36 Reassessment: Patient appears in no apparent distress at this time. Patient and/or pf1 family updated on plan of care and expected duration. Pain level reassessed. Patient is alert, oriented x 3, equal unlabored respirations, skin warm/dry/pink. Patient states feeling better. Patient states symptoms have improved. Patient C/O pain of 6 to sore throat ears and headache at this time. Updated patient on plan of care. Patient verbalized plan of care understanding. Continue monitoring patient.. Vital Signs: 21:00 BP 130 / 57; Pulse 96; Resp 19; Temp 100(O); Pulse Ox 96% ; Weight 69.4 kg; Height 5 vc1 ft. 4 in. (162.56 cm); Pain 10/10; 22:00 BP 115 / 69; Pulse 94; Resp 18; Temp 99.5; Pulse Ox 97% ; Pain 10/10; pf1 23:00 BP 113 / 62; Pulse 95; Resp 18; Temp 99.5; Pulse Ox 99% on R/A; Pain 6/10; pf1 06/23 00:00 BP 110 / 64; Pulse 92; Resp 18; Temp 99.3; Pulse Ox 100% on R/A; Pain 2/10; pf1 06/22 21:00 Body Mass Index 26.26 (69.40 kg, 162.56 cm) vc1 ED Course: 06/22 20:28 Patient arrived in ED. ja2 20:33 Ricardo Ramirez PA is PHCP. cp 20:33 Haseeb Chance MD is Attending Physician. cp 21:03 Triage completed. vc1 21:05 Arm band placed on right wrist. vc1 21:10 Patient has correct armband on for positive identification. Placed in gown. Bed in low pf1 position. Side rails up X 1. 21:25 Madeleine hoyt, SHADE is Primary Nurse. pf1 22:14 Strep Sent. pf1 22:14 COVID-19/FLU A+B/RSV Sent. pf1 22:44 XRAY Chest (1 view) In Process Unspecified. EDMS 06/23 00:10 No provider procedures requiring assistance completed. Patient did not have IV access pf1 during this emergency room visit. Administered Medications: No medications were administered Medication: 06/22 22:45 VIS not applicable for this client. pf1 Outcome: 06/23 00:05 Discharge ordered by . cp 00:10 Discharged to home ambulatory, with family. pf1 00:10 Condition: improved 00:10 Discharge instructions given to patient, Instructed on discharge instructions, follow up and referral plans. medication usage, Demonstrated understanding of instructions, follow-up care, medications, Prescriptions given X 2. 00:11 Patient left the ED. pf1 Signatures: Dispatcher [employer] EDMS Ricardo Ramirez PA PA cp Alexander, Jessica ja2 Calcote, Vanessa, RN RN vc1 Madeleine hoyt RN RN pf1 Corrections: (The following items were deleted from the chart) 06/22 22:45 21:10 Respiratory: Reports shortness of breath on exertion Airway is patent Respiratory pf1 effort is even, unlabored, Respiratory pattern is regular, symmetrical, pf1
[2022-06-23 00:36] VITALS: BP 110/64; TEMP 99.3; O2SAT 100
--- NOTE | 2022-06-23 15:42 | RAD REPORT ---
EXAM DESCRIPTION: Chest Single View CLINICAL HISTORY: 52 years Female, SOB COMPARISON: Chest radiograph dated 01/22/2022 FINDINGS: No focal lung consolidation. No pleural effusion. No pneumothorax. Cardiomediastinal silhouette is within normal limits. No acute osseous abnormality. IMPRESSION: No acute cardiopulmonary disease. Electronically signed by: Tpi Jack DO 06/22/2022 11:24 PM [employer] Due to temporary technical issues with the PACS/Fluency reporting system, reports are being signed by the in house radiologists without review as a courtesy to insure prompt reporting. The interpreting radiologist is fully responsible for the content of the report.
--- NOTE | 2022-06-23 17:01 | EKG ---
Test Date: 2022-06-22 Test Time: 22:12:14 Fabric Pattern Grader: FLORINA MEASUREMENT RESULTS: Intervals: Rate: 93 WY: 166 QRSD: 80 QT: 318 QTc: 395 [place]: P: 64 WY: 166 QRS: 63 T: 52 INTERPRETIVE STATEMENTS: Normal sinus rhythm Normal ECG Compared to ECG 01/22/2022 14:34:15 No significant changes Electronically Signed On 06-23-22 17:01:02 PUMP HOUSE OPERATOR by Roman Santana
== END 2022-06-23 00:11 | disposition home or self-care (01) ==
LOC: ER 20:25
DX: R06.02 Shortness of breath (principal); H92.03 Otalgia, bilateral; J02.9 Acute pharyngitis, unspecified; Z20.822 Contact with and (suspected) exposure to COVID-19; E11.9 Type 2 diabetes mellitus without complications
CPT/HCPCS: 93005; 87070; 87081; 0241U; 71045; 99284

== ENCOUNTER 2022-07-31 14:15 | Emergency (ER) | payer OTHER ==
--- OUTSIDE RECORDS SUMMARY | 2022-07-31 14:24 | XMS REPORT | Continuity of Care Document ---
:1970 Author Organization [facility] t Address [address] [place] [address] Dr. Chang [address] [place] [id number] Care Team Providers Name Role Phone ANETTE HANEY Primary Care Physician Unavailable Anette Haney Attending Clinician Unavailable VERNELL COMBS Attending Clinician Unavailable Yani COVARRUBIAS, Rhonda Lopez Attending Clinician Kadeem Minor MD Attending Clinician Mary Gilliam MD Attending Clinician [phone] MARY GILLIAM Attending Clinician UnavailTrina Lozada MD [...] Policy Number Effective Date Expiration Date Edi RODRIGUEZ [id number] 2022 [facility] 00:00:00 [facility] [id number] 2016 [facility] CHOICE 00:00:00 O [facility]EL PCP Ambetter from [id number] 2018 Common Spi rit [facility] 00:00:00 - [facility] Ambetter from [id number] 2018 Common Spi rit [facility] 00:00:00 - [facility] Ambetter from [id number] 2018 Common Spi rit [facility] 00:00:00 - [facility] Problems Condition Condition Condition Status Onset Resolution [...] Diagnosis Active 2020-062021-06-06 Mem oria R10.10=UPP R10.10=UPP -10 16:11:00 l ER ER 00:00: [place] ABDOMINAL ABDOMINAL 00 PAIN, PAIN, UNSPECI UNSPECI Active 05/09/2021 [facility] DX: DX: Diagnosis Active 2019-062020-04-11 Mem oria R10.10, R10.10, 0-07 09:14:00 l R14.0 R14.0 00:00: [place] Active 00 04/05/2020 Mic Bernardino [id number] Diabetic Problem Comm on polyneurop Spirit athy - [facility] [id number] Depression Problem Co mmon with Spirit anxiety - [facility] [id number] 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 diabetes - [facility] mellitus [facility] with [facility] hyperglyce [facility] [id number] Seasonal Problem Comm on allergies [facility] - [facility] [id number] Fatty Problem Common liver [facility] - [facility] [id number] Irritable Problem Com mon bowel Spirit syndrome - [facility] with [facility] constipati [facility] [id number] Symptomati Problem Co mmon c spider [facility] varicose - [facility] vein [facility] [id number] Panic Problem Common disorder Spirit [episodic - [facility] paroxysmal [facility] anxiety] [facility] [id number] Acute Problem Common stress Spirit reaction - [facility] [id number] Closed Problem Common nondisplac Spirit ed - [facility] fracture [facility] of phalanx [facility] of thumb, Medical unspecifie Center d laterality , unspecifie d phalanx, initial encounter [id number] Gastroesop Problem Co mmon hageal Spirit reflux - [facility] disease, St esophagiti 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 [id number] Memory Problem Common deficit [facility] [id number] Thrombocyt Problem Co mmon openia [facility] [id number] Other Problem Common chronic [facility] pain 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 of left Spirit hip - [facility] Allergies, Adverse Reactions, Alerts Allergy Allergy Status Severity Reaction(s) Onset Inactive Treating Comm ents Source Name Type Date Date Clinician NO KNOWN Allergy Active [facility] Family History Family Member Diagnosis Comments Start Date Stop Date Source Natural brother Diabetes [facility] Natural father Diabetes [facility] Natural mother Diabetes [facility] Natural sister Diabetes [facility] Social History Social Habit Start Date Stop Date Quantity Comments Source History of Common Spirit - Tobacco Use [facility] Sex Assigned At Common Sp cordelia - [facility] Exposure to 2022-05-18 2022-05-28 Not sure [facility] e SARS-CoV-2 00:00:00 08:30:00 of Medicine (event) Alcohol intake 2022-03-08 2022-03-08 Ex-drinker [facility] 00:00:00 00:00:00 (finding) Medical Center History [facility] 2022-02-25 2022-02-25 0 [facility] ge Physical Activity 00:00:00 00:00:00 of Medi cine DPW History [facility] 2022-02-25 2022-02-25 0 [facility] ge Physical Activity 00:00:00 00:00:00 of Medi cine MPS Tobacco use and 2017-05-09 2017-05-09 Never used [facility] exposure 00:00:00 00:00:00 Medical Center Smoking Status Start Date Stop Date Source Never smoked tobacco [facility] ege of Medicine Medications Ordered Filled Start Stop Current Ordering Indication Dosage Frequency Signature Comments Components Source Medication Medication Date Date Medication? Clinician (SIG) Name Name ALPRAZolam ALPRAZolam No QD ALPRAZolam 0.5 MG 0.5 MG 1-20 0.5 MG 00:00: 00 metformin 2021-06 Yes 500mg Take 500 [place] [facility] (GLUCOPHAGE 2-05 mg by [place] ) 500 MG 15:43: mouth four of tablet 47 times Medicin daily. e sertraline 2021-06 Yes 50mg Take 50 mg [facility] (ZOLOFT) 25 2-05 by mouth [place] e[facility] MG tablet 15:43: daily. of 47 Medicin e gabapentin 2021-06 Yes 300mg Take 300 [facility] (NEURONTIN) 2-05 mg by [place] 300 MG 15:43: mouth 3 of capsule [...] 1 [facility] oxide 2-05 Tablet by [place] (MAG-OX) 00:00: mouth two of 400 MG 00 times Medicin tablet daily. e linaCLOtide 2021-06 Yes Take 1 [facility] (LINZESS) 2-05 capsule by [facility] 72 MCG CAPS 00:00: mouth of 00 every Medicin evening. e metformin 2021-06- No 2 tablet [place] [facility] (GLUCOPHAGE -05-31 with a Colle ge ) 500 MG 18:14: 00:00 meal of tablet 41 :00 Medicin e Cholecalcif 2021-06- No 50ug Take 50 [facility] cee -05-31 mcg by [place] (VITAMIN D) 18:14: 00:00 mouth of 50 MCG 26 :00 daily. Medicin (1999 UT) e CAPS metformin 2021-06 Yes 500mg Take 500 [place] [facility] (GLUCOPHAGE 2-02 mg by [facility] [place] ) 500 MG 14:53: mouth four of tablet 49 times Medicin daily. e sertraline 2021-06 Yes 50mg Take 50 mg [facility] (ZOLOFT) 25 2-02 by mouth [facility] e[facility] MG tablet 14:53: daily. of 49 Medicin e gabapentin 2021-06 Yes 300mg Take 300 [facility] (NEURONTIN) 2-02 mg by [place] 300 MG 14:53: mouth 3 of capsule [...] 49 hours. Medicin e atorvastati 2021-06 Yes [id number] 20mg Take 1 [facility] n (LIPITOR) 2-02 Tablet by Col lege 20 MG 00:00: mouth of tablet 00 daily. Medicin e atorvastati 2021-06 Yes [id number] 20mg Take 1 [facility] n (LIPITOR) 2-02 Tablet by Col lege 20 MG 00:00: mouth of tablet 00 daily. Medicin e famotidine 2021-06 Yes 40mg Take 40 mg [facility] (PEPCID) 40 - by mouth [place] [facility] MG tablet 08:51: daily. of 40 Medicin e dicyclomine 2021-06 Yes 20mg Take 20 mg [facility] (BENTYL) 20 -29 by mouth [place] [facility] MG tablet 08:51: every 6 of 40 hours. Medicin e metformin 2021-06 Yes 500mg Take 500 [place] [facility] (GLUCOPHAGE 1-29 mg by [place] ) 500 MG 08:51: mouth four of tablet 40 times Medicin daily. e sertraline 2021-06 Yes 50mg Take 50 mg [facility] (ZOLOFT) 25 - by mouth [place] ege MG tablet 08:51: daily. of 40 Medicin e gabapentin 2021-06 Yes 300mg Take 300 [facility] (NEURONTIN) 1-29 mg by [place] 300 MG 08:51: mouth 3 of capsule [...] Xanax 1-10 t} 0.5MG 00:00: 00 Insulin 2021-0 2021- No Inject [facility] Lispro 03-22 into the College (HUMALOG 14:17: 00:00 skin. of DESEANIKPEN) 31 :00 Medicin 200 UNIT/ML e SOPN glimepiride 2021- No 4mg Take 4 mg [facility] (AMARYL) 4 03-22 by mouth. Col lege MG tablet 14:12: 00:00 of 23 :00 Medicin e Cholecalcif 0 Yes 50ug Take 50 [place] [facility] cee 9-23 mcg by [place] (VITAMIN D) 13:29: mouth of 50 MCG 15 daily. Medicin (1999) e CAPS Cholecalcif 0 Yes 50ug Take 50 [place] [facility] cee 9-23 mcg by [place] (VITAMIN D) 13:29: mouth of 50 MCG 15 daily. Medicin (1999) e CAPS metformin Yes 500mg Take 500 [place] [facility] (GLUCOPHAGE 9-23 mg by [place] ) 500 MG 13:17: mouth four of tablet 58 times Medicin daily. e sertraline 0 Yes 50mg Take 50 mg [facility] (ZOLOFT) 25 9-23 by mouth [facility] e[facility] MG tablet 13:17: daily. of 58 Medicin e gabapentin Yes 300mg Take 300 [facility] (NEURONTIN) 9-23 mg by College 300 MG 13:17: mouth 3 of capsule 58 times Medicin daily. e famotidine Yes 40mg Take 40 mg [facility] (PEPCID) 40 9-23 by mouth [facility] e[facility] MG tablet 13:17: daily. of 58 Medicin e dicyclomine Yes 20mg Take 20 mg [facility] (BENTYL) 20 9- by mouth [place] e[facility] MG tablet 13:17: every 6 of 58 hours. Medicin e Continuous Yes Use as [facility] Blood Gluc 9-23 directed Colle ge Sensor 00:00: to check of (FREESTYLE 00 blood Medicin YAZMIN 2 sugars for e SENSOR) 14 days [facility] Insulin Yes Take up to [facility] or Lispro 9-23 15 units College (HUMALOG 00:00: as of IK) 00 directed Medicin 200 UNIT/ML prior to e SOPN meals Continuous Yes Use as [facility] Blood Gluc 9-23 directed Colle ge Sensor 00:00: to check of (FREESTYLE 00 blood Medicin YAZMIN 2 sugars for e SENSOR) 14 days [facility] Insulin Yes Take up to [facility] or Lispro 9-23 15 units College (HUMALOG 00:00: as of IKPEN) 00 directed Medicin 200 UNIT/ML prior to e SOPN meals Continuous Yes Use as [facility] Blood Gluc 9-23 directed Colle ge Sensor 00:00: to check of (FREESTYLE 00 blood Medicin YAZMIN 2 sugars for e SENSOR) 14 days [facility] Insulin Yes Take up to [facility] or Lispro 9-23 15 units College (HUMALOG 00:00: as of IKPEN) 00 directed Medicin 200 UNIT/ML prior to e SOPN meals Continuous Yes Use as [facility] Blood Gluc 9-23 directed Colle ge Sensor 00:00: to check of (FREESTYLE 00 blood Medicin YAZMIN 2 sugars for e SENSOR) 14 days [facility] Insulin Yes Take up to [facility] or Lispro 9-23 15 units College (HUMALOG 00:00: as of KWIKPEN) 00 directed Medicin 200 UNIT/ML prior to e SOPN meals metFORMIN 2022-0 Yes 500mg Take [address] (GLUCOPHAGE 9-12 mg by [facility] ) 500 MG 08:25: mouth 2 Medica l tablet 51 (two) Center times daily with breakfast and dinner. glimepiride 2022-0 Yes 4mg Take [address] (AMARYL) 4 9-12 by mouth 2 [facility] es MG tablet 08:25: (two) Medical 51 times Center daily before meals. empaglifloz 2022-0 Yes 10mg QD Take [address] in 9-12 by mouth [facility] (JARDIANCE) 08:25: daily. Medi michele 10 mg 51 Center tablet sertraline 2022-0 Yes 50mg Take [address] (ZOLOFT) 50 9-12 by mouth Luke s MG tablet 08:25: Daily Medical 51 (1800) . Center gabapentin 2-0 Yes 300mg QD Take [address] (NEURONTIN) 9-12 [facility] by [facility] 300 MG 08:25: mouth Medical capsule 51 every Center evening. insulin 2021-0 Yes 86U QD Inject 86 [facility]I S t degludec 9-12 Units [facility] (TRESIBA 08:25: subcutaneo Med ical U-100 51 usly every Center INSULIN morning. SUBQ) metFORMIN 2-0 Yes 500mg Take [address] (GLUCOPHAGE 9-12 mg by [facility] ) 500 MG 08:25: mouth 2 Medica l tablet 51 (two) Center times daily with breakfast and dinner. glimepiride 2022-0 Yes 4mg Take [address] (AMARYL) 4 9-12 by mouth 2 [facility] MG tablet 08:25: (two) Medical 51 times Center daily before meals. empaglifloz 2022-0 Yes 10mg QD Take [address] in 9-12 by mouth [facility] (JARDIANCE) 08:25: daily. Medi michele 10 mg 51 Center tablet sertraline 2022-0 Yes 50mg Take [address] (ZOLOFT) 50 9-12 by mouth Luke s MG tablet 08:25: Daily Medical 51 (1800) . Center gabapentin 2022-0 Yes 300mg QD Take [address] (NEURONTIN) 9-12 mg by [facility] 300 MG 08:25: mouth Medical capsule 51 every Center evening. insulin 2022-0 Yes 86U QD Inject 86 [facility] S t degludec 9-12 Units [facility] (TRESIBA 08:25: subcutaneo Med ical U-100 51 usly every Center INSULIN morning. SUBQ) metFORMIN 2022-0 Yes 500mg Take [address] (GLUCOPHAGE 9-12 mg by [facility] ) 500 MG 08:25: mouth 2 Medica l tablet 51 (two) Center times daily with breakfast and dinner. glimepiride 2022-0 Yes 4mg Take [address] (AMARYL) 4 9-12 by mouth 2 [facility] es MG tablet 08:25: (two) Medical 51 times Center daily before meals. empaglifloz 2022-0 Yes 10mg QD Take [address] in 9-12 by mouth [facility] (JARDIANCE) 08:25: daily. Medi michele 10 mg 51 Center tablet sertraline 2021-0 Yes 50mg Take [address] (ZOLOFT) 50 9-12 by mouth Luke s MG tablet 08:25: Daily Medical 51 (1800) . Center gabapentin 2021-0 Yes 300mg QD Take [address] (NEURONTIN) 9-12 mg by [facility] 300 MG 08:25: mouth Medical capsule 51 every Center evening. insulin 2022-0 Yes 86U QD Inject 86 [facility] t degludec 9-12 Units [facility] (TRESIBA 08:25: subcutaneo Med ical U-100 51 usly every Center INSULIN morning. SUBQ) metFORMIN 2022-0 Yes 500mg Take [address] (GLUCOPHAGE 9-12 mg by [facility] ) 500 MG 08:25: mouth 2 Medica l tablet 51 (two) Center times daily with breakfast and dinner. glimepiride 2022-0 Yes 4mg Take [address] (AMARYL) 4 9-12 by mouth 2 [facility] MG tablet 08:25: (two) Medical 51 times Center daily before meals. empaglifloz 2022-0 Yes 10mg QD Take [address] in 9-12 by mouth [facility] (JARDIANCE) 08:25: daily. Medi michele 10 mg 51 Center tablet sertraline 2-0 Yes 50mg Take 50 mg C HI [...] 51 times Center daily before meals. empaglifloz 0 Yes 10mg QD Take 10 mg [facility] [...] meal of tablet 46 Medicin e glimepiride 0 Yes 4mg Take 4 mg [facility] (AMARYL) 4 8-30 by mouth. [place] [facility] MG tablet 11:52: of 46 Medicin e metformin 0 Yes 2 tablet [facility] (GLUCOPHAGE 8-30 [...] 46 hours. Medicin e Insulin Yes Inject [facility] Lispro 8-30 into the College (HUMALOG 11:52: skin. of KWIKPEN) 46 Medicin 200 UNIT/ML e SOPN metformin Yes 2 tablet [facility] (GLUCOPHAGE 8-30 with a Colleg e ) 500 MG 11:52: meal of tablet 46 Medicin e metformin Yes 500mg Take 500 [place] [facility] (GLUCOPHAGE 8-30 mg by [facility] [place] ) 500 MG 11:34: mouth four of tablet 04 times Medicin daily. e sertraline Yes 50mg Take 50 mg [facility] (ZOLOFT) 25 8-30 by mouth [facility] MG tablet 11:34: daily. of 04 Medicin e gabapentin Yes 300mg Take 300 [facility] (NEURONTIN) 8-30 mg by [place] 300 MG 11:34: mouth 3 of capsule 04 times Medicin daily. e Cholecalcif Yes 50ug Take 50 [place] [facility] cee 8-30 mcg by [facility] [place] (VITAMIN D) 11:34: mouth of 50 MCG 04 daily. Medicin (2000 UT) e CAPS alprazolam Yes [facility] (XANAX) 0.5 8-29 College MG tablet 00:00: of 00 Medicin e alprazolam Yes TAKE 1 [facility] (XANAX) 0.5 8-29 TABLET BY [facility] lege MG tablet 00:00: MOUTH ONCE of 00 DAILY Medicin NEEDED FOR e ANXIETY alprazolam Yes [facility] (XANAX) 0.5 8-29 College MG tablet 00:00: of Medicin e alprazolam Yes [facility] (XANAX) 0.5 8-29 College MG tablet 00:00: of Medicin e alprazolam Yes TAKE 1 [facility] (XANAX) 0.5 8-29 TABLET BY Col lege MG tablet 00:00: MOUTH ONCE of 00 DAILY Medicin NEEDED FOR e ANXIETY alprazolam Yes [facility] (XANAX) 0.5 8-29 College MG tablet 00:00: of 00 Medicin e alprazolam 0 Yes [facility] (XANAX) 0.5 8-29 College MG tablet [...] MG 0.5 MG 8-29 0.5 MG 00:00: ALPRAZolam ALPRAZolam 0 No ALPRAZolam 0.5 MG [...] e NEEDED trazodone 2021-0 Yes TAKE 1 [facility] (DESYREL) 8-03 TABLET BY Colle ge 50 MG 00:00: MOUTH ONCE of tablet 00 DAILY AT Medicin BEDTIME e NEEDED trazodone 2021-0 Yes TAKE 1 [facility] (DESYREL) 8-03 TABLET BY Colle ge 50 MG 00:00: MOUTH ONCE of tablet 00 DAILY AT Medicin BEDTIME e NEEDED trazodone 2021-0 Yes TAKE 1 [facility] (DESYREL) 8-03 TABLET BY Colle ge [...] MG 00:00: 00 GOLYTELY 2021-0 Yes TAKE [facility] 236 g 7-08 4000ML BY College suspension 00:00: MOUTH of 00 DIRECTED Medicin ONE e DOSE GOLYTELY 2021-0 Yes TAKE [facility] 236 g 7-08 4000ML BY College suspension 00:00: MOUTH of 00 DIRECTED Medicin ONE e DOSE GOLYTELY 2021-0 Yes TAKE [facility]velio 236 g 7-08 4000ML BY College suspension 00:00: MOUTH of 00 DIRECTED Medicin ONE e DOSE GOLYTELY 2021-0 2- No TAKE Evelio 236 g 7-08 12-02 4000ML BY College suspension 00:00: 00:00 MOUTH of 00 :00 DIRECTED Medicin ONE e DOSE TRESIBA 2021-0 Yes INJECT 84 [facility] FLEXTOUCH 7-07 UNITS [place] 200 UNIT/ML 00:00: SUBCUTANEO of SOPN 00 USLY ONCE Medicin DAILY, e INCREASE BY 2 UNITS EVERY 3 DAYS UNTIL FASTING BLOOD GLUCOSE LESS THAN 100. MAX DOSE 90 UNITS ONCE A DAY TRESIBA 2021-0 Yes INJECT 84 [facility] FLEXTOUCH 7-07 UNITS [facility] 200 UNIT/ML 00:00: SUBCUTANEO of SOPN 00 [...] 4-26 0.5 MG 00:00: 00 Losartan Losartan 2021-0 No 1{table QD Losartan [...] MG MG 00 50-12.5 MG Losartan Losartan 2022-0 No 1{table QD Losartan Potassium-H Potassium-H 4-20 [...] 2-16 0.5 MG 00:00: 00 predniSONE predniSONE 2020-2020- No QD predniSONE 10 MG 10 MG 07-21 10 MG 00:00: 00:00 00 :00 predniSONE predniSONE 2020-2020- No QD predniSONE 10 MG 10 MG 07-21 10 MG 00:00: 00:00 00 :00 Azithromyci Azithromyci 2020-06- No QD Azithromyc n 250 MG n 250 MG 07-21 in 250 MG 00:00: 00:00 00 :00 ALPRAZolam ALPRAZolam 2020- No ALPRAZolam 0.5 MG 0.5 MG 1-18 0.5 MG 00:00: 00 ALPRAZolam ALPRAZolam 2020-06 No ALPRAZolam 0.5 MG 0.5 MG 1-18 0.5 MG 00:00: 00 FreeStyle FreeStyle 2020-06 No FreeStyle Yazmin 14 Yazmin 14 0-07 Yazmin 14 Day Sensor Day Sensor 00:00: Day Sensor - - 00 - FreeStyle FreeStyle 2020-06 No FreeStyle Y[facility]min 2 Yazmin 2 0-07 [facility] 2 [place] - 00:00: [place] - 00 Neomycin-Po Neomycin-Po 2020-06 No 4{drops BID Neomycin-P lymyxin-HC lymyxin-HC 0-07 _into_a olymyxin-H 3.5-49320-4 3.5-14400-2 00:00: ffected C 00 _ear} 3.5-95755- 1 FreeStyle FreeStyle 2020-06 No FreeStyle Yazmin 2 Yazmin 2 0-07 Yazmin 2 [place] - 00:00: [place] - 00 FreeStyle FreeStyle 2020-06 No FreeStyle Yazmin 14 Yazmin 14 0-07 Yazmin 14 Day Sensor Day Sensor 00:00: Day Sensor - - 00 - Neomycin-Po Neomycin-Po 2020-06 No 4{drops BID Neomycin-P lymyxin-HC lymyxin-HC 0-07 _into_a olymyxin-H 3.5-71836-6 3.5-79135-1 00:00: ffected C 00 _ear} 3.5-67430- 1 Neomycin-Po Neomycin-Po 2020-06 No 4{drops BID Neomycin-P lymyxin-HC lymyxin-HC 0-07 _into_a olymyxin-H 3.5-64919-3 3.5-25085-0 00:00: ffected C 00 _ear} 3.5-19388- 1 FreeStyle FreeStyle 2020-06 No FreeStyle Yazmin 14 Yazmin 14 0-07 Yazmin 14 Day Sensor Day Sensor 00:00: Day Sensor - - 00 - FreeStyle FreeStyle 2020-06 No FreeStyle Yazmin 2 Yazmin 2 0-07 Yazmin 2 [place] - 00:00: [place] - 00 FreeStyle FreeStyle 2020-06 No FreeStyle Y[facility]min 14 Yzamin 14 0-07 Yazmin 14 Day Sensor Day Sensor 00:00: Day Sensor - - 00 - Neomycin-Po Neomycin-Po 2020-06 No 4{drops BID Neomycin-P lymyxin-HC lymyxin-HC 0-07 _into_a olymyxin-H 3.5-93186-6 3.5-83603-0 00:00: ffected C 00 _ear} 3.5-78181- 1 FreeStyle FreeStyle 2020-06 No FreeStyle Yazmin 2 Yazmin 2 0-07 Yazmin 2 [place] - 00[place]00: [place] - 00 FreeStyle FreeStyle 2020-06 No FreeStyle Yazmin 14 Yazmin 14 0-07 Yazmin 14 Day Sensor Day Sensor 00:00: Day Sensor - - 00 - Neomycin-Po Neomycin-Po 2020-06 No 4{drops BID Neomycin-P lymyxin-HC lymyxin-HC 0-07 _into_a olymyxin-H 3.5-88395-7 3.5-75583-5 00:00: ffected C 00 _ear} 3.5-14148- 1 FreeStyle FreeStyle 2020-06 No FreeStyle Yazmin 2 Yazmin 2 0-07 Yazmin 2 [place] - 00:00: [place] - 00 FreeStyle FreeStyle 2020-06 No FreeStyle Yazmin 14 Yazmin 14 0-07 Yazmin 14 Day Sensor Day Sensor 00:00: Day Sensor - - 00 - Neomycin-Po Neomycin-Po 2020-06 No 4{drops BID Neomycin-P lymyxin-HC lymyxin-HC 0-07 _into_a olymyxin-H 3.5-81890-8 3.5-59812-0 00:00: ffected C 00 _ear} 3.5-69516- 1 FreeStyle FreeStyle 2020-06 No FreeStyle Yazmin 2 Yazmin 2 0-07 Yazmin 2 [place] - 00:00: [place] - 00 FreeStyle FreeStyle 2020-06 No FreeStyle Yazmin 14 Yazmin 14 0-07 Yazmin 14 Day Sensor Day Sensor 00:00: Day Sensor - - 00 - FreeStyle FreeStyle 2020-06 No FreeStyle Yazmin 2 Yazmin 2 0-07 Yazmin 2 [place] - 00:00: [place] - 00 Neomycin-Po Neomycin-Po 2020-06 No 4{drops BID Neomycin-P lymyxin-HC lymyxin-HC 0-07 _into_a olymyxin-H 3.5-12546-7 3.584670-1 00:00: ffected C 00 _ear} 3.5-68585- 1 FreeStyle FreeStyle 2020-06 No FreeStyle Yazmin 2 Yazmin 2 0-07 Yazmin 2 [place] - 00:00: [place] - 00 FreeStyle FreeStyle 2020-06 No FreeStyle Yazmin 14 Yazmin 14 0-07 Yazmin 14 Day Sensor Day Sensor 00:00: Day Sensor - - 00 - Neomycin-Po Neomycin-Po 2020-06 No 4{drops BID Neomycin-P lymyxin-HC lymyxin-HC 0-07 _into_a olymyxin-H 3.547075-9 3.-1 00:00: ffected C 00 _ear} 3.- 1 FreeStyle FreeStyle 2020-06 No FreeStyle Yazmin 2 Yazmin 2 0-07 Yazmin 2 [place] - 00:00: [place] - 00 FreeStyle FreeStyle 2020-06 No FreeStyle Yazmin 14 Yazmin 14 0-07 Yazmin 14 Day Sensor Day Sensor 00:00: Day Sensor - - 00 - Neomycin-Po Neomycin-Po 2020-06 No 4{drops BID Neomycin-P lymyxin-HC lymyxin-HC 0-07 _into_a olymyxin-H 3.520700-9 3.543043-9 00:00: ffected C 00 _ear} 3.5- 1 FreeStyle FreeStyle 2020-06 No FreeStyle Yazmin 14 Yazmin 14 0-07 Yazmin 14 Day Sensor Day Sensor 00:00: Day Sensor - - 00 - FreeStyle FreeStyle 2020-06 No FreeStyle Yazmin 2 Yazmin 2 0-07 Yazmin 2 [place] - 00:00: [place] - 00 Neomycin-Po Neomycin-Po 2020-06 No 4{drops BID Neomycin-P lymyxin-HC lymyxin-HC 0-07 _into_a olymyxin-H 3.5-06335-2 3.5-44965-2 00:00: ffected C 00 _ear} 3.5-21606- 1 FreeStyle FreeStyle 2020-06 No FreeStyle Yazmin 14 Yazmin 14 0-07 Yazmin 14 Day Sensor Day Sensor 00:00: Day Sensor - - 00 - FreeStyle FreeStyle 2020-06 No FreeStyle Yazmin 2 Yazmin 2 0-07 Yazmin 2 [place] - 00:00: [place] - 00 Neomycin-Po Neomycin-Po 2020-06 No 4{drops BID Neomycin-P lymyxin-HC lymyxin-HC 0-07 _into_a olymyxin-H 3.5-69029-3 3.5-22871-5 00:00: ffected C 00 _ear} 3.5-75248- 1 Neomycin-Po Neomycin-Po 2020-06 No 4{drops BID Neomycin-P lymyxin-HC lymyxin-HC 0-07 _into_a olymyxin-H 3.5-84116-8 3.5-92663-2 00:00: ffected C 00 _ear} 3.5-93906- 1 FreeStyle FreeStyle 2020-06 No FreeStyle Yazmin 2 Yazmin 2 0-07 Yazmin 2 [place] - 00:00: [place] - 00 FreeStyle FreeStyle 2020-06 No FreeStyle Yazmin 14 Yazmin 14 0-07 Yazmin 14 Day Sensor Day Sensor 00:00: Day Sensor - - 00 - Neomycin-Po Neomycin-Po 2020-06 No 4{drops BID Neomycin-P lymyxin-HC lymyxin-HC 0-07 _into_a olymyxin-H 3.509863-8 3.547984-2 00:00: ffected C 00 _ear} 3.5- 1 FreeStyle FreeStyle 2020-06 No FreeStyle Yazmin 2 Yazmin 2 0-07 Yazmin 2 [place] - 00:00: [place] - 00 FreeStyle FreeStyle 2020-06 No FreeStyle Yazmin 14 Yazmin 14 0-07 Yazmin 14 Day Sensor Day Sensor 00:00: Day Sensor - - 00 - Neomycin-Po Neomycin-Po 2020-06 No 4{drops BID Neomycin-P lymyxin-HC lymyxin-HC 0-07 _into_a olymyxin-H 3.541121-6 3.588179-0 00:00: ffected C 00 _ear} 3.5- 1 FreeStyle FreeStyle 2020-06 No FreeStyle Yazmin 2 Yazmin 2 0-07 Yazmin 2 [place] - 00:00: [place] - 00 FreeStyle FreeStyle 2020-06 No FreeStyle Yazmin 14 Yazmin 14 0-07 Yazmin 14 Day Sensor Day Sensor 00:00: Day Sensor - - 00 - Neomycin-Po Neomycin-Po 2020-06 No 4{drops BID Neomycin-P lymyxin-HC lymyxin-HC 0-07 _into_a olymyxin-H 3.561868-2 3.5 00:00: ffected C 00 _ear} 3.5 FreeStyle FreeStyle 2020-06 No FreeStyle Yazmin 2 Yazmin 2 0-07 Yazmin 2 [place] - 00:00: [place] - 00 FreeStyle FreeStyle 2020-06 No FreeStyle Yazmin 14 Yazmin 14 0-07 Yazmin 14 Day Sensor Day Sensor 00:00: Day Sensor - - 00 - Sertraline Sertraline 2018-06 Yes [facility] 2 tablets Common HCl HCl 2-24 [facility] 00:00: - [facility] 00 [facility] Fluticasone Fluticasone 2018-06 No 1{spray QD Fluticason [...] Propionate 00 il} 50 MCG/ACT Fluticasone Fluticasone 2019-1 No 1{spray QD Fluticason Propionate Propionate 0-18 [...] mouth Luke s MG tablet 10:01: daily. [facility] [address] empaglifloz 2016-06 Yes 10mg QD Take [address] [facility] in 1-10 by mouth [facility] (JARDIANCE) 10:01: daily. Medi michele 10 mg 13 Center tablet sertraline 2016-06 Yes 50mg QD Take [address] (ZOLOFT) 50 1-10 by mouth Luke s MG tablet 10:01: daily. [facility] [address] glimepiride 2016-06 Yes 4mg Take [address] (AMARYL) 4 1-10 by mouth 2 Carmelina es MG tablet 10:01: (two) Medical 12 times Center daily before meals. metFORMIN 2016-06 Yes 500mg Take [address] [facility] [address] (GLUCOPHAGE 1-10 mg by [facility] ) 500 MG 10:01: mouth 2 Medica l tablet 12 (two) Center times daily with breakfast and dinner. glimepiride 2016-06 Yes 4mg Take [address] (AMARYL) 4 1-10 by mouth 2 Carmelina es MG tablet 10:01: ([facility]) [facility] 12 times Center daily before meals. metFORMIN 2016-06 Yes 500mg Take [address] (GLUCOPHAGE 1-10 mg by [facility] ) 500 MG 10:01: mouth 2 Medica l tablet 12 (two) Center times daily with breakfast and dinner. Metformin Metformin Yes Na Haney 2 tablet Common HCl HCl with a Spirit meal - [facility] Dicyclomine Dicyclomine No Dicyclomin HCl 20 MG HCl 20 MG e HCl 20 MG metFORMIN metFORMIN No 2{table BID metFORMIN HCl 500 MG HCl 500 MG t_with_ HCl 500 MG a_meal} Glimepiride Glimepiride No Glimepirid 4 MG 4 MG e 4 MG Tresiba Tresiba No QD Tresiba FlexTouch FlexTouch FlexTouch 200 UNIT/ML 200 UNIT/ML 200 UNIT/ML Gabapentin Gabapentin No 1{capsu TID Gabapentin 300 MG 300 MG le} 300 MG HumaLOG HumaLOG No HumaLOG NovoFine NovoFine No QD NovoFine Plus 32G X Plus 32G X Plus 32G X 4 MM 4 MM 4 MM traZODone traZODone No 1{table QD traZODone HCl 50 MG HCl 50 MG t_at_be HCl 50 MG dtime_a s_neede d} Famotidine Famotidine No 1{table BID Famotidine 40 [...] 7.5 MG 7.5 MG t} 7.5 MG Sertraline Sertraline No Sertraline HCl 100 MG HCl 100 MG HCl 100 MG Dicyclomine Dicyclomine No Dicyclomin HCl 20 MG HCl 20 MG e HCl 20 MG metFORMIN metFORMIN No 2{table BID metFORMIN HCl 500 MG HCl 500 MG t_with_ HCl 500 MG a_meal} Glimepiride Glimepiride No Glimepirid 4 MG 4 MG e 4 MG Tresiba Tresiba No QD Tresiba FlexTouch FlexTouch FlexTouch 200 UNIT/ML 200 UNIT/ML 200 UNIT/ML Gabapentin Gabapentin No 1{capsu TID Gabapentin 300 MG 300 MG le} 300 MG HumaLOG HumaLOG No HumaLOG NovoFine NovoFine No QD NovoFine Plus 32G X Plus 32G X Plus 32G X 4 MM 4 MM 4 MM traZODone traZODone No 1{table QD traZODone HCl 50 MG HCl 50 MG t_at_be HCl 50 MG dtime_a s_neede d} Famotidine Famotidine No 1{table BID Famotidine 40 [...] 7.5 MG 7.5 MG t} 7.5 MG Sertraline Sertraline No Sertraline HCl 100 MG HCl 100 MG HCl 100 MG Dicyclomine Dicyclomine No Dicyclomin HCl 20 MG HCl 20 MG e HCl 20 MG Glimepiride Glimepiride No Glimepirid 4 MG 4 MG e 4 MG HumaLOG HumaLOG No HumaLOG Gabapentin Gabapentin No 1{capsu TID Gabapentin 300 [...] Yazmin 14 Yazmin 14 Yazmin 14 Day [place] - - - metFORMIN metFORMIN No 2{table [...] MM 4 MM FreeStyle FreeStyle No FreeStyle Yazmin 14 Yazmin [...] Yazmin 14 Yazmin 14 Yazmin 14 Day [place] [facility] [place] - - - Famotidine Famotidine No 1{table [...] Yazmin 14 Yazmin 14 Yazmin 14 Day [place] - - - traZODone traZODone No 1{table [...] Yazmin 14 Yazmin 14 Yazmin 14 Day [place] Day [place] - - - Dicyclomine Dicyclomine No QID [...] Yazmin 14 Yazmin 14 Yazmin 14 Day [place] [facility] [place] - - - Dicyclomine Dicyclomine No QID [...] Yazmin 14 Yazmin 14 Yazmin 14 Day [place] [facility] [place] - - - Dicyclomine Dicyclomine No QID [...] Yazmin 14 Yazmin 14 Yazmin 14 Day [place] [facility] [place] - - - traZODone traZODone No traZODone [...] Yazmin 14 Yazmin 14 Yazmin 14 Day [place] [facility] [place] - - - Famotidine Famotidine No 1{table [...] Yazmin 14 Yazmin 14 Yazmin 14 Day [place] [facility] [place] - - - FreeStyle FreeStyle No FreeStyle [...] Yazmin 14 Yazmin 14 Yazmin 14 Day [place] Day [place] - - - Famotidine Famotidine No 1{table [...] Yazmin 14 Yazmin 14 Yazmin 14 Day [place] Day [place] - - - Tobramycin Tobramycin No 1{drop_ [...] Yazmin 14 Yazmin 14 Yazmin 14 Day [place] - - - Omeprazole Omeprazole No 1{capsu [...] Yazmin 14 Yazmin 14 Yazmin 14 Day [place] - - - Omeprazole Omeprazole No 1{capsu [...] Yazmin 14 Yazmin 14 Yazmin 14 Day [place] - - - Omeprazole Omeprazole No 1{capsu [...] Yazmin 14 Yazmin 14 Yazmin 14 Day [place] - - - Omeprazole Omeprazole No 1{capsu [...] MG No 1{table Zofran 4 t} MG Meloxicam Meloxicam No 1{table QD Meloxicam 7.5 MG 7.5 MG t} 7.5 MG Sertraline Sertraline No Sertraline HCl 100 MG HCl 100 MG HCl 100 MG Immunizations Ordered Immunization Filled Immunization Date Status Commen ts Source Name Name Afluria single dose Afluria single dose 2020-06-01 [facility] Afluria single dose Afluria single dose 2020-06-01 [facility] Afluria single dose Afluria single dose 2020-06-01 [facility] Afluria single dose Afluria single dose 2020-06-01 [facility] Afluria single dose Afluria single dose 2020-06-01 [facility] Afluria single dose Afluria single dose 2020-06-01 [facility] Afluria single dose Afluria single dose 2020-06-01 [facility] Afluria single dose Afluria single dose 2020-06-01 [facility] Afluria single dose Afluria single dose 2020-06-01 [facility] Afluria single dose Afluria single dose 2020-06-01 [facility] Afluria single dose Afluria single dose 2020-06-01 [facility] Afluria single dose Afluria single dose 2020-06-01 [facility]pleted [facility] 09:27:00 - [facility] Afluria single dose Afluria single dose 2020-06-01 [facility] Afluria single dose Afluria single dose 2020-06-01 [facility] Afluria single dose Afluria single dose 2020-06-01 [facility]pleted [facility] 09:27:00 - [facility] Afluria single dose Afluria single dose 2020-06-01 [facility] 09:27:00 - [facility] Afluria single dose Afluria single dose 2020-06-01 [facility]pleted [facility] 09:27:00 - [facility] Afluria single dose Afluria single dose 2020-06-01 [facility]pleted [facility] 09:27:00 - [facility] Afluria single dose Afluria single dose 2020-06-01 [facility]pleted [facility] 09:27:00 - [facility] Afluria single dose Afluria single dose 2020-06-01 [facility]pleted [facility] 09:27:00 - [facility] Afluria single dose Afluria single dose 2020-06-01 [facility]pleted [facility] 09:27:00 - [facility] Afluria single dose Afluria single dose 2020-06-01 [facility] Afluria single dose Afluria single dose 2020-06-01 [facility] Afluria single dose Afluria single dose 2020-06-01 [facility]pleted [facility] 09:27:00 - [facility] Afluria single dose Afluria single dose 2020-06-01 [facility] Afluria single dose Afluria single dose 2020-06-01 [facility] Afluria single dose Afluria single dose 2020-06-01 [facility] Afluria single dose Afluria single dose 2020-06-01 [facility] Afluria single dose Afluria single dose 2020-06-01 [facility] Afluria single dose Afluria single dose 2020-06-01 [facility] Afluria single dose Afluria single dose 2020-06-01 [facility]pleted [facility] 09:27:00 - [facility] Afluria single dose Afluria single dose 2020-06-01 [facility]pleted [facility] 09:27:00 - [facility] Afluria single dose Afluria single dose 2020-06-01 [facility]pleted [facility] 09:27:00 - [facility] Afluria single dose Afluria single dose 2020-06-01 [facility]pleted [facility] 09:27:00 - [facility] Afluria single dose Afluria single dose 2020-06-01 [facility]pleted [facility] 09:27:00 - [facility] Afluria single dose Afluria single dose 2020-06-01 [facility] Flucelvax - Flucelvax - 2019-03-30 Completed [facility] multidose vial multidose vial 15:35:00 - [facility] Flucelvax - Flucelvax - 2019-03-30 Completed [facility] multidose [facility]ial multidose vial 15:35:00 - [facility] Flucelvax - Flucelvax - 2019-03-30 Completed [facility]ose [facility]ial multidose vial 15:35:00 - [facility] Flucelvax - Flucelvax - 2019-03-30 Completed [facility]ose [facility]ial multidose vial 15:35:00 - [facility] Flucelvax - Flucelvax - 2019-03-30 Completed [facility]ose [facility]ial multidose vial 15:35:00 - [facility] Flucelvax - Flucelvax - 2019-03-30 Completed [facility]ose [facility]ial multidose vial 15:35:00 - [facility] Flucelvax - Flucelvax - 2019-03-30 Completed [facility]ose [facility]ial multidose vial 15:35:00 - [facility] Flucelvax - Flucelvax - 2019-03-30 Completed [facility]ose [facility]ial multidose vial 15:35:00 - [facility] Flucelvax - Flucelvax - 2019-03-30 Completed [facility] multidose vial multidose vial 15:35:00 - [facility] Flucelvax - Flucelvax - 2019-03-30 Completed [facility] multidose vial multidose vial 15:35:00 - [facility] Flucelvax - Flucelvax - 2019-03-30 Completed [facility] multidose [facility]ial multidose vial 15:35:00 - [facility] Flucelvax - Flucelvax - 2019-03-30 Completed [facility] multidose vial multidose vial 15:35:00 - [facility] Flucelvax - Flucelvax - 2019-03-30 Completed [facility] multidose vial multidose vial 15:35:00 - [facility] Flucelvax - Flucelvax - 2019-03-30 Completed [facility] multidose vial multidose vial 15:35:00 - [facility] Flucelvax - Flucelvax - 2019-03-30 Completed [facility] multidose vial multidose vial 15:35:00 - [facility] Flucelvax - Flucelvax - 2019-03-30 Completed [facility] multidose vial multidose vial 15:35:00 - [facility] Flucelvax - Flucelvax - 2019-03-30 Completed [facility] multidose vial multidose vial 15:35:00 - [facility] Flucelvax - Flucelvax - 2019-03-30 Completed [facility] multidose vial multidose vial 15:35:00 - [facility] Flucelvax - Flucelvax - 2019-03-30 Completed [facility] multidose vial multidose vial 15:35:00 - [facility] Flucelvax - Flucelvax - 2019-03-30 Completed [facility] multidose vial multidose vial 15:35:00 - [facility] Flucelvax - Flucelvax - 2019-03-30 Completed [facility] multidose vial multidose vial 15:35:00 - [facility] Flucelvax - Flucelvax - 2019-03-30 Completed [facility] multidose vial multidose vial 15:35:00 - [facility] Flucelvax - Flucelvax - 2019-03-30 Completed [facility] multidose vial multidose vial 15:35:00 - [facility] Flucelvax - Flucelvax - 2019-03-30 Completed [facility] multidose vial multidose vial 15:35:00 - [facility] Flucelvax - Flucelvax - 2019-03-30 Completed [facility] multidose vial multidose vial 15:35:00 - [facility] Flucelvax - Flucelvax - 2019-03-30 Completed [facility] multidose vial multidose vial 15:35:00 - [facility] Flucelvax - Flucelvax - 2019-03-30 Completed [facility] multidose vial multidose vial 15:35:00 - [facility] Flucelvax - Flucelvax - 2019-03-30 Completed [facility] multidose vial multidose vial 15:35:00 - [facility] Flucelvax - Flucelvax - 2019-03-30 Completed [facility] multidose vial multidose vial 15:35:00 - [facility] Flucelvax - Flucelvax - 2019-03-30 Completed [facility] multidose vial multidose vial 15:35:00 - [facility] Flucelvax - Flucelvax - 2019-03-30 Completed [facility] multidose vial multidose vial 15:35:00 - [facility] Flucelvax - Flucelvax - 2019-03-30 Completed [facility] multidose vial multidose vial 15:35:00 - [facility] Flucelvax - Flucelvax - 2019-03-30 Completed [facility] multidose vial multidose vial 15:35:00 - [facility] Flucelvax - Flucelvax - 2019-03-30 Completed [facility] multidose vial multidose vial 15:35:00 - [facility] Flucelvax - Flucelvax - 2019-03-30 Completed [facility] multidose vial multidose vial 15:35:00 - [facility] Flucelvax - Flucelvax - 2019-03-30 Completed [facility] multidose vial multidose vial 15:35:00 - [facility] Flucelvax - Flucelvax - 2019-03-30 Completed [facility] multidose vial multidose vial 00:00:00 - [facility] Vital Signs Vital Name Observation Time Observation Value Comments Source Systolic blood 2022-06-03 21:41:00 106 mm[Hg] [facility] pressure Medicine Diastolic blood 2022-06-03 21:41:00 58 mm[Hg] [facility] Medicine Body height 2022-06-03 21:41:00 162.6 cm [facility] Body weight 2022-06-03 21:41:00 [facility] BMI 2022-06-03 21:41:00 27.46 kg/m2 [facility] Systolic blood 2022-05-31 21:08:00 114 mm[Hg] [facility] pressure Medicine Diastolic blood 2022-05-31 21:08:00 65 mm[Hg] [facility] pressure Medicine Heart rate 2022-05-31 21:08:00 89 /min [facility] Body height 2022-05-31 21:08:00 [facility].6 [facility] Body weight 2022-05-31 21:08:00 71.668 kg [facility] BMI 2022-05-31 21:08:00 27.12 kg/m2 [facility] Systolic blood 2022-05-28 14:59:00 111 mm[Hg] [facility] pressure Medicine Diastolic blood 2022-05-28 14:59:00 68 mm[Hg] [facility] Medicine Heart rate 2022-05-28 14:59:00 73 /min [facility] Body temperature 2022-05-28 14:59:00 36.61 [facility] Respiratory rate 2022-05-28 14:59:00 18 /min [facility] Body height 2022-05-28 14:59:00 162.6 cm [facility] Body weight 2022-05-28 14:59:00 71.668 kg [facility] BMI 2022-05-28 14:59:00 27.12 kg/m2 [facility] height 2022-05-09 15:00:00 64 [in_i] [facility] weight 2022-05-09 15:00:00 155.8 [lb_av] [facility] temperature 2022-05-09 15:00:00 97.8 [degF] [facility] bmi 2022-05-09 15:00:00 26.74 kg/m2 [facility] oximetry 2022-05-09 15:00:00 97 % [facility] respiratory rate 2022-05-09 15:00:00 15 /min [facility] blood pressure 2022-05-09 15:00:00 109 mm[Hg] [facility] - systolic [facility] blood pressure 2022-05-09 15:00:00 58 mm[Hg] [facility] - diastolic [facility] height 2022-05-06 14:00:00 64 [in_i] [facility] weight 2022-05-06 14:00:00 157 [lb_av] [facility] temperature 2022-05-06 14:00:00 97.2 [degF] [facility] bmi 2022-05-06 14:00:00 26.95 kg/m2 [facility] blood pressure 2022-05-06 14:00:00 112 mm[Hg] [facility] - systolic [facility] blood pressure 2022-05-06 14:00:00 68 mm[Hg] [facility] - diastolic [facility] Systolic blood 2022-03-22 18:27:00 112 mm[Hg] [facility] Medicine Diastolic blood 2022-03-22 18:27:00 65 mm[Hg] [facility] Medicine Heart rate 2022-03-22 18:27:00 71 /min [facility] Body height 2022-03-22 18:27:00 162.6 cm [facility] Body weight 2022-03-22 18:27:00 68.947 kg [facility] BMI 2022-03-22 18:27:00 26.09 kg/m2 [facility] Systolic blood 2022-02-26 16:41:00 125 mm[Hg] [facility] Medicine Diastolic blood 2022-02-26 16:41:00 72 mm[Hg] [facility] Medicine Heart rate 2022-02-26 16:41:00 83 /min [facility] Body temperature 2022-02-26 16:41:00 36.78 [facility] Respiratory rate 2022-02-26 16:41:00 18 /min [facility] Body height 2022-02-26 16:41:00 162.6 cm [facility] Body weight 2022-02-26 16:41:00 70.67 kg [facility] BMI 2022-02-26 16:41:00 26.74 kg/m2 [facility] height 2022-02-26 16:40:00 64 [in_i] [facility] weight 2022-02-26 16:40:00 155 [lb_av] [facility] bmi 2022-02-26 16:40:00 26.6 kg/m2 [facility] height 2021-12-06 11:40:00 64 [in_i] [facility] weight 2021-12-06 11:40:00 154 [lb_av] [facility] temperature 2021-12-06 11:40:00 97.8 [degF] [facility] bmi 2021-12-06 11:40:00 26.43 kg/m2 [facility] oximetry 2021-12-06 11:40:00 98 % [facility] respiratory rate 2021-12-06 11:40:00 20 /min [facility] blood pressure 2021-12-06 11:40:00 122 mm[Hg] [facility] - systolic [facility] blood pressure 2021-12-06 11:40:00 59 mm[Hg] [facility] - diastolic [facility] height 2021-11-19 10:00:00 64 [in_i] [facility] weight 2021-11-19 10:00:00 152.4 [lb_av] [facility] temperature 2021-11-19 10:00:00 97.7 [degF[facility] 2021-11-19 10:00:00 26.16 kg/m2 [facility] oximetry 2021-11-19 10:00:00 97 % [facility] respiratory rate 2021-11-19 10:00:00 16 /min [facility] blood pressure 2021-11-19 10:00:00 118 mm[Hg] [facility] - systolic [facility] blood pressure 2021-11-19 10:00:00 57 mm[Hg] [facility] - diastolic [facility] height 2021-10-09 16:00:00 64 [in_i] [facility] weight 2021-10-09 16:00:00 152 [lb_av] [facility] temperature 2021-10-09 16:00:00 97.7 [degF] [facility] bmi 2021-10-09 16:00:00 26.09 kg/m2 [facility] oximetry 2021-10-09 16:00:00 98 % [facility] - [facility] respiratory rate 2021-10-09 16:00:00 18 /min [facility] blood pressure 2021-10-09 16:00:00 129 mm[Hg] [facility] - systolic [facility] blood pressure 2021-10-09 16:00:00 60 mm[Hg] [facility] - diastolic [facility] height 2021-09-10 08:40:00 64 [in_i] [facility] weight 2021-09-10 08:40:00 148.8 [lb_av] [facility] temperature 2021-09-10 08:40:00 97.7 [degF] [facility] bmi 2021-09-10 08:40:00 25.54 kg/m2 [facility] oximetry 2021-09-10 08:40:00 100 % [facility] respiratory rate 2021-09-10 08:40:00 16 /min [facility] on [facility] blood pressure 2021-09-10 08:40:00 123 mm[Hg] [facility] - systolic [facility] blood pressure 2021-09-10 08:40:00 58 mm[Hg] [facility] - diastolic [facility] height 2021-08-21 11:40:00 64 [in_i] [facility] weight 2021-08-21 11:40:00 149.4 [lb_av] [facility] temperature 2021-08-21 11:40:00 97.6 [degF] [facility] bmi 2021-08-21 11:40:00 25.64 kg/m2 [facility] oximetry 2021-08-21 11:40:00 99 % [facility] respiratory rate 2021-08-21 11:40:00 15 /min [facility] blood pressure 2021-08-21 11:40:00 121 mm[Hg] [facility] - systolic [facility] blood pressure 2021-08-21 11:40:00 57 mm[Hg] [facility] - diastolic [facility] height 2021-04-05 16:20:00 64 [in_i] [facility] weight 2021-04-05 16:20:00 157 [lb_av] [facility] temperature 2021-04-05 16:20:00 97.6 [degF] [facility] bmi 2021-04-05 16:20:00 26.95 kg/m2 [facility] oximetry 2021-04-05 16:20:00 98 % [facility] respiratory rate 2021-04-05 16:20:00 21 /min [facility] blood pressure 2021-04-05 16:20:00 120 mm[Hg] [facility] - systolic [facility] blood pressure 2021-04-05 16:20:00 58 mm[Hg] [facility] - diastolic [facility] Systolic blood 2022-03-08 10:20:00 110 mm[Hg] [facility] Diastolic blood 2022-03-08 10:20:00 61 mm[Hg] [facility] Heart rate 2022-03-08 10:20:00 70 /min [facility] Respiratory rate 2022-03-08 10:20:00 12 /min [facility] Oxygen saturation in 2022-03-08 10:20:00 95 /min [facility] Arterial blood by Medical Ce nter Pulse oximetry Body temperature 2022-03-08 09:51:00 36.5 Jeannine [facility] Body height 2022-03-08 09:19:00 162.6 cm [facility] Body weight 2022-03-08 09:19:00 75.751 kg [facility] BMI 2022-03-08 09:19:00 28.67 kg/m2 [facility] Procedures Procedure Date / Time Performing Clinician Source Performed POCT HEMOGLOBIN A1C 2022-03-22 18:42:00 Kadeem Minor [facility] REPORT OF PROCEDURE - 2022-03-08 09:57:00 Trina Perez [facility] REPORT OF PROCEDURE - 2022-03-08 09:54:01 Trina Perez [facility] TISSUE EXAM 2022-03-08 09:24:00 Trina Perez [facility] POCT-GLUCOSE METER 2022-03-08 09:14:00 Trina Perez [facility] EGD 2022-03-08 09:13:00 Pamella Perezsz [facility] (ESOPHAGOGASTRODUODENOSCO [facility]) COLONOSCOPY, WITH 2022-03-08 09:13:00 Trina Perez [facility] es POLYPECTOMY [facility] [place] GASTRIC EMPTYING STUDY 2022-02-14 15:42:00 William Jessica [facility] HEPATITIS A ANTIBODY, IGG 2022-01-10 13:59:00 Ivet Barboza [facility] BASIC METABOLIC PANEL 2022-01-10 13:59:00 AracelyWilliam pickard [facility] HEPATIC FUNCTION PANEL 2022-01-10 13:59:00 AracelyWilliam suresh [facility] CBC W/PLT COUNT & AUTO 2022-01-10 13:59:00 AracelyWilliam suresh [facility] PROTHROMBIN TIME/INR 2022-01-10 13:59:00 AracelyWilliam suresh [facility] LACTIC ACID, VENOUS 2022-01-10 13:59:00 AracelyWilliam [facility] CBC W/PLT COUNT & AUTO 2022-01-10 13:59:[address] [facility] MR ABDOMEN WITH & WITHOUT 2022-01-03 08:59:00 Luís Greer [facility] IV CONTRAST [facility] ALPHA FETOPROTEIN (AFP), 2021-12-17 15:44:00 Luís Greer [facility] TUMOR MARKER [facility] LACTIC ACID, VENOUS 2021-12-17 15:44[facility]00 [facility] W/[facility]T COUNT & AUTO 2021-12-17 15:44:00 Luís Greer [facility] COMPREHENSIVE METABOLIC 2021-12-17 15:44:00 Luís Greer [facility] PANEL [facility] BILIRUBIN, DIRECT 2021-12-17 15:44:00 Luís Greer [facility] CBC W/PLT COUNT & AUTO 2021-12-17 15:44:00 Luís Greer [facility] PROTHROMBIN TIME/INR 2021-12-17 15:44:00 Husam Greer [facility] HEPATITIS B SURFACE 2021-12-17 15:44:00 Luís Greer [facility] ANTIGEN [facility] HEPATITIS B SURFACE 2021-12-17 15:44[facility]00 [facility] HEPATITIS B CORE 2021-12-17 15:44:00 Luís Greer [facility] ANTIBODY, TOTAL [facility] HEPATITIS C ANTIBODY 2021-12-17 15:44:00 Husam [facility] IRON, TIBC, % SAT. 2021-12-17 15:44:00 Luís Greer [facility] (WITHOUT FERRITIN) Medical Cent[facility] r FERRITIN 2021-12-17 15:44[facility]00 [facility] [id number]\\, 2021-12-17 15:44:00 Luís Greer [facility] CERULOPLASMIN 2021-12-17 15:44:00 Percy [facility] ANTI-NUCLEAR ANTIBODY 2021-12-17 15:44:00 Líus Greer [facility] (SAMIA) [facility] ACTIN (SMOOTH MUSCLE) 2021-12-17 15:44:[address] [facility] MITOCH[facility]RIA M2 ANTIBODY 2021-12-17 15:44:[address]ís [address] [facility] ([facility]G) [facility] Plan of Care Planned Activity Planned Date Details Comments Source Future Scheduled 2032-03-08 Screening for malignant [facility] Test 00:00:00 neoplasm of colon Medical Ce nter (procedure) [code = 477469816] Future Scheduled 2032-03-08 Screening for malignant [facility] Test 00:00:00 neoplasm of colon Medical Ce nter (procedure) [code = 724620939] Future Scheduled 2032-03-08 Screening for malignant [facility] Test 00:00:00 neoplasm of colon Medical Ce nter (procedure) [code = 210847027] Future Scheduled 2032-03-08 Screening for malignant [facility] Test 00:00:00 neoplasm of colon Medical Ce nter (procedure) [code = 675261639] Future Scheduled 2032-03-08 Screening for malignant [facility] Test 00:00:00 neoplasm of colon Medical Ce nter (procedure) [code = 408490684] Future Scheduled 2032-03-08 Screening for malignant [facility] Test 00:00:00 neoplasm of colon Medical Ce nter (procedure) [code = 338152998] Future Scheduled 2032-03-08 Screening for malignant [facility] Test 00:00:00 neoplasm of colon Medical Ce nter (procedure) [code = 700511426] Future Scheduled 2032-03-08 Screening for malignant [facility] Test 00:00:00 neoplasm of colon Medical Ce nter (procedure) [code = 466130363] Future Scheduled 2032-03-08 Screening for malignant [facility] Test 00:00:00 neoplasm of colon Medical Ce nter (procedure) [code = 793089065] Future Scheduled 2032-03-08 Screening for malignant [facility] Test 00:00:00 neoplasm of colon Medical Ce nter (procedure) [code = 928132285] Future Scheduled 2024-03-05 Screening for malignant [facility] Test 00:00:00 neoplasm of breast Medical C enter (procedure) [code = 151945522] Future Scheduled 2024-03-05 Screening for malignant [facility] Test 00:00:00 neoplasm of breast Medical C enter (procedure) [code = 586862202] Future Scheduled 2024-03-05 Screening for malignant [facility] Test 00:00:00 neoplasm of breast Medical C enter (procedure) [code = 912342599] Future Scheduled 2024-03-05 Screening for malignant [facility] Test 00:00:00 neoplasm of breast Medical C enter (procedure) [code = 389900798] Future Scheduled 2024-03-05 Screening for malignant [facility] Test 00:00:00 neoplasm of breast Medical C enter (procedure) [code = 585617433] Future Scheduled 2023-03-[address] [...] Cessation Counseling and Screening (12+)] Future Scheduled 2022-06-[address] [facility] Test 00:00:00 (12+) [code = Medical Center DEPRESSION SCREENING (12+)] Future Scheduled 2022-06-[address] [facility] Test 00:00:00 (12+) [code = Medical Center DEPRESSION SCREENING (12+)] Future Scheduled 2022-06-[address] [facility] Test 00:00:00 (12+) [code = Medical Center DEPRESSION SCREENING (12+)] Future Scheduled 2022-06-03 Pneumococcal [facility] Test 15:43:24 (1 - PCV) [code = of Medicin e Pneumococcal Combined (1 - PCV)] Future Scheduled 2022-06-03 ANNUAL DIABETIC [facility] Test 15:43:24 RETINOPATHY SCREENING of Med icine [code = ANNUAL DIABETIC RETINOPATHY SCREENING] Future Scheduled 2022-06-03 BMI FOLLOW UP PLAN [facility] Test 15:43:24 [code = BMI FOLLOW UP of Med icine PLAN] Future Scheduled 2022-06-03 Human immunodeficiency B [facility] Test 15:43:24 virus screening of Medicine (procedure) [code = 450410787] Future Scheduled 2022-06-03 ZOSTER VACCINE (1 of 2) [facility] Test 15:43:24 [code = ZOSTER VACCINE of Me dicine (1 of 2)] Future Scheduled 2022-06-03 Screening for malignant [facility] Test 15:43:24 neoplasm of cervix of Medici ne (procedure) [code = 960764605] Future Scheduled 2022-06-03 TETANUS SHOT (ADULT) [facility] Test 15:43:24 [code = TETANUS SHOT of Medi cine (ADULT)] Future Scheduled 2022-06-03 COVID-19 Vaccine (4 - [facility] Test 15:43:24 Booster for Pfizer of Medici ne series) [code = COVID-19 Vaccine (4 - Booster for Pfizer series)] Future Scheduled 2022-06-03 FLU VACCINE > 6 MONTHS B [facility] Test 15:43:24 [code = FLU VACCINE > 6 of M edicine MONTHS] Future Scheduled 2022-06-03 Hemoglobin A1c [facility] Test 15:43:24 measurement (procedure) of M edicine [code = 39234500] Future Scheduled 2022-06-03 Screening for malignant [facility] Test 15:43:24 neoplasm of breast of Medici ne (procedure) [code = 500955268] Future Scheduled 2022-06-03 Diabetic foot [facility] Test 15:43:24 examination of Medicine (regime/therapy) [code = 611021576] Future Scheduled 2022-06-03 Screening for malignant [facility] Test 15:43:24 neoplasm of colon of Medicin e (procedure) [code = 630587926] Future Scheduled 2022-05-31 Pneumococcal Combined [facility] Test 16:18:29 (1 - PCV) [code = of Medicin e Pneumococcal Combined (1 - PCV)] Future Scheduled 2022-05-31 Diabetic foot [facility] Test 16:18:29 examination of Medicine (regime/therapy) [code = 103742434] Future Scheduled 2022-05-31 ANNUAL DIABETIC [facility] Test 16:18:29 RETINOPATHY SCREENING of Med icine [code = ANNUAL DIABETIC RETINOPATHY SCREENING] Future Scheduled 2022-05-31 BMI FOLLOW UP PLAN [facility] Test 16:18:29 [code = BMI FOLLOW UP of Med icine PLAN] Future Scheduled 2022-05-31 Human immunodeficiency B [facility] Test 16:18:29 virus screening of Medicine (procedure) [code = 896064373] Future Scheduled 2022-05-31 ZOSTER VACCINE (1 of 2) [facility] Test 16:18:29 [code = ZOSTER VACCINE of Wa dicine (1 of 2)] Future Scheduled 2022-05-31 Screening for malignant [facility] Test 16:18:29 neoplasm of cervix of Medici ne (procedure) [code = 224837258] Future Scheduled 2022-05-31 TETANUS SHOT (ADULT) [facility] Test 16:18:29 [code = TETANUS SHOT of Medi cine (ADULT)] Future Scheduled 2022-05-31 COVID-19 Vaccine (4 - [facility] Test 16:18:29 Booster for Pfizer of Medici ne series) [code = COVID-19 Vaccine (4 - Booster for Pfizer series)] Future Scheduled 2022-05-31 FLU VACCINE > 6 MONTHS B [facility] Test 16:18:29 [code = FLU VACCINE > 6 of M edicine MONTHS] Future Scheduled 2022-05-31 Hemoglobin A1c [facility] Test 16:18:29 measurement (procedure) of M edicine [code = 72689227] Future Scheduled 2022-05-31 Screening for malignant [facility] Test 16:18:29 neoplasm of breast of Medici ne (procedure) [code = 685880750] Future Scheduled 2022-05-31 Screening for malignant [facility] Test 16:18:29 neoplasm of colon of Medicin e (procedure) [code = 079477395] Future Scheduled 2022-05-28 Pneumococcal Combined [facility] Test 08:59:19 (1 - PCV) [code = of Medicin e Pneumococcal Combined (1 - PCV)] Future Scheduled 2022-05-28 Diabetic foot [facility] Test 08:59:19 examination of Medicine (regime/therapy) [code = 744886127] Future Scheduled 2022-05-28 ANNUAL DIABETIC [facility] Test 08:59:19 RETINOPATHY SCREENING of Med icine [code = ANNUAL DIABETIC RETINOPATHY SCREENING] Future Scheduled 2022-05-28 BMI FOLLOW UP PLAN [facility] Test 08:59:19 [code = BMI FOLLOW UP of Med icine PLAN] Future Scheduled 2022-05-28 Human immunodeficiency B [facility] Test 08:59:19 virus screening of Medicine (procedure) [code = 323313393] Future Scheduled 2022-05-28 ZOSTER VACCINE (1 of 2) [facility] Test 08:59:19 [code = ZOSTER VACCINE of Me dicine (1 of 2)] Future Scheduled 2022-05-28 Screening for malignant [facility] Test 08:59:19 neoplasm of cervix of Medici ne (procedure) [code = 822928729] Future Scheduled 2022-05-28 TETANUS SHOT (ADULT) [facility] Test 08:59:19 [code = TETANUS SHOT of Medi cine (ADULT)] Future Scheduled 2022-05-28 COVID-19 Vaccine (3 - [facility] Test 08:59:19 Booster for Pfizer of Medici ne series) [code = COVID-19 Vaccine (3 - Booster for Pfizer series)] Future Scheduled 2022-05-28 FLU VACCINE > 6 MONTHS B [facility] Test 08:59:19 [code = FLU VACCINE > 6 of M edicine MONTHS] Future Scheduled 2022-05-28 Hemoglobin A1c [facility] Test 08:59:19 measurement (procedure) of M edicine [code = 67250504] Future Scheduled 2022-05-28 Screening for malignant [facility] Test 08:59:19 neoplasm of breast of Medici ne (procedure) [code = 470936447] Future Scheduled 2022-05-28 Screening for malignant [facility] Test 08:59:19 neoplasm of colon of Medicin e (procedure) [code = 017124091] Future Scheduled 2022-03-29 MICROALBUMIN/CREAT Expected: [facility] Test 00:00:00 URINE RATIO [code = 03/29/2022 of Medic ine 9318-7] (Approximate), Expires: 09/19/2022 Future Scheduled 2022-03-29 LIPID PANEL [code = Expected: [facility] Test 00:00:00 18149-4] 03/29/2022 of Medicine (Approximate), Expires: 09/19/2022 Future Scheduled 2022-03-24 Pneumococcal Combined [facility] Test 13:41:11 (1 - PCV) [code = of Medicin e Pneumococcal Combined (1 - PCV)] Future Scheduled 2022-03-24 Diabetic foot [facility] Test 13:41:11 examination of Medicine (regime/therapy) [code = 346564322] Future Scheduled 2022-03-24 ANNUAL DIABETIC [facility] Test 13:41:11 RETINOPATHY SCREENING of Med icine [code = ANNUAL DIABETIC RETINOPATHY SCREENING] Future Scheduled 2022-03-24 BMI FOLLOW UP PLAN [facility] [place] Test 13:41:11 [code = BMI FOLLOW UP of Med icine PLAN] Future Scheduled 2022-03-24 Human immunodeficiency B [facility] Test 13:41:11 virus screening of Medicine (procedure) [code = 486601351] Future Scheduled 2022-03-24 Screening for malignant [facility] Test 13:41:11 neoplasm of cervix of Medici ne (procedure) [code = 966828694] Future Scheduled 2022-03-24 TETANUS SHOT (ADULT) [facility] Test 13:41:11 [code = TETANUS SHOT of Medi cine (ADULT)] Future Scheduled 2022-03-24 ZOSTER VACCINE (1 of 2) [facility] Test 13:41:11 [code = ZOSTER VACCINE of Wa dicine (1 of 2)] Future Scheduled 2022-03-24 COVID-19 Vaccine (3 - [facility] Test 13:41:11 Booster for Pfizer of Medici ne series) [code = COVID-19 Vaccine (3 - Booster for Pfizer series)] Future Scheduled 2022-03-24 FLU VACCINE > 6 MONTHS B [facility] Test 13:41:11 [code = FLU VACCINE > 6 of M edicine MONTHS] Future Scheduled 2022-03-24 [facility]oglobin [facility]1c [facility] 13:41:11 measurement (procedure) of M edicine [code = 80397273] Future Scheduled 2022-03-24 Screening for malignant [facility] Test 13:41:11 neoplasm of breast of Medici ne (procedure) [code = 678487184] Future Scheduled 2022-03-24 Screening for malignant [facility] Test 13:41:11 neoplasm of colon of Medicin e (procedure) [code = 616903904] Future Scheduled 2022-02-28 INFLUENZA VACCINE (#1) C [...] colon of Medicin e (procedure) [code = 520539068] Future Scheduled 2022-02-27 Pneumococcal Combined [facility] Test 11:42:27 (1 - PCV) [code = of Medicin e Pneumococcal Combined (1 - PCV)] Future Scheduled 2022-02-27 BMI FOLLOW UP PLAN [facility] Test 11:42:27 [code = BMI FOLLOW UP of Med icine PLAN] Future Scheduled 2022-02-27 Human immunodeficiency [facility] Test 11:42:27 virus screening of Medicine (procedure) [code = 698001225] Future Scheduled 2022-02-27 Screening for malignant [facility] Test 11:42:27 neoplasm of cervix of Medici ne (procedure) [code = 604304433] Future Scheduled 2022-02-27 TETANUS SHOT (ADULT) [place] [facility] Test 11:42:27 [code = TETANUS SHOT of Medi cine (ADULT)] Future Scheduled 2022-02-27 Screening for malignant [facility] Test 11:42:27 neoplasm of breast of Medici ne (procedure) [code = 196902791] Future Scheduled 2022-02-27 ZOSTER VACCINE (1 of 2) [facility] Test 11:42:27 [code = ZOSTER VACCINE of Me dicine (1 of 2)] Future Scheduled 2022-02-27 COVID-19 Vaccine (3 - [facility] Test 11:42:27 Booster for Pfizer of Medici ne series) [code = COVID-19 Vaccine (3 - Booster for Pfizer series)] Future Scheduled 2022-02-27 FLU VACCINE > 6 MONTHS B [facility] Test 11:42:27 [code = FLU VACCINE > 6 of M edicine MONTHS] Future Scheduled 2022-01-[address] [facility] [address] [facility] 00:[facility]:00 measurement (procedure) [facility] [code = 85249683] Future Scheduled 2022-01-[address] [facility] Test 00:00:00 measurement (procedure) [facility] [code = 33012104] Future Scheduled 2022-01-[address] [facility] 00:00:00 measurement (procedure) [facility] [code = 48693257] Future Scheduled 2022-01-[address] [facility] 00:00:00 measurement (procedure) [facility] [code = 60234564] Future Scheduled 2022-01-[address] [facility] 00:00:00 measurement (procedure) [facility] [code = 53481703] Future Scheduled 2021-06-[address] [...] Center VACCINES (1 of 2)] Future Scheduled 2019 SHINGLES VACCINES ([address] [facility] Test 00:00:00 2) [code = SHINGLES Medical Center VACCINES (1 of 2)] Future Scheduled 2019 SHINGLES VACCINES ([address] [facility] Test 00:00:00 2) [code = SHINGLES Medical Center VACCINES (1 of 2)] Future Scheduled 2019 SHINGLES VACCINES ([address] [facility] Test 00:00:00 2) [code = SHINGLES Medical Center VACCINES (1 of 2)] Future Scheduled 2019 SHINGLES VACCINES ([address] [facility] Test 00:00:00 2) [code = SHINGLES Medical Center VACCINES (1 of 2)] Future Scheduled 2014 Lipid panel (procedure) [facility] Test 00:00:00 [code = 02191235] Medical Ce nter Future Scheduled 2014 Lipid panel (procedure) [facility] Test 00:00:00 [code = 93622956] Medical Ce nter Future Scheduled 2014 Lipid panel (procedure) [facility] Test 00:00:00 [code = 18271779] Medical Ce nter Future Scheduled 2014 Lipid panel (procedure) [facility] Test 00:00:00 [code = 67739464] Medical Ce nter Future Scheduled 2014 Lipid panel (procedure) [facility] Test 00:00:00 [code = 60775378] Medical Ce nter Future Scheduled 1990 Screening for malignant [facility] Test 00:00:00 neoplasm of cervix Medical C enter (procedure) [code = 267510765] Future Scheduled 1990 Screening for malignant [facility] Test 00:00:00 neoplasm of cervix Medical C enter (procedure) [code = 959149778] Future Scheduled 1990 Screening for malignant [facility] Test 00:00:00 neoplasm of cervix Medical C enter (procedure) [code = 946219542] Future Scheduled 1990 Screening for malignant [facility] Test 00:00:00 neoplasm of cervix Medical C enter (procedure) [code = 172499907] Future Scheduled 1990 Screening for malignant [facility] Test 00:00:00 neoplasm of cervix Medical C enter (procedure) [code = 629980228] Future Scheduled 1988-01-07 DTAP/TDAP/TD VACCINES CH I [...] 00:00:00 examination Medical Center (regime/therapy) [code = 798144161] Future Scheduled 1979 Urine screening for [facility] Test 00:00:00 protein (procedure) Medical Center [code = 845315852] Future Scheduled 1979 DIABETIC EYE EXAM [code [facility] Test 00:00:00 = DIABETIC EYE EXAM] Medical Center Future Scheduled [address] [facility] examination Medical Center (regime/therapy) [code = 262803165] Future Scheduled 1979 Urine screening for [facility] Test 00:00:00 protein (procedure) Medical Center [code = 506592997] Future Scheduled 1979 DIABETIC EYE EXAM [code [facility] Test 00:00:00 = DIABETIC EYE EXAM] Medical Center Future Scheduled [address] [facility] 00:00:00 examination Medical Center (regime/therapy) [code = 360543423] Future Scheduled 1979 Urine screening for [facility] Test 00:00:00 protein (procedure) Medical Center [code = 585941428] Future Scheduled 1979 DIABETIC EYE EXAM [code [facility] Test 00:00:00 = DIABETIC EYE EXAM] Medical Center Future Scheduled [address] [facility] 00:00:00 examination Medical Center (regime/therapy) [code = 820059722] Future Scheduled 1979 Urine screening for [facility] Test 00:00:00 protein (procedure) Medical Center [code = 100477638] Future Scheduled 1979 DIABETIC EYE EXAM [code [facility] Test 00:00:00 = DIABETIC EYE EXAM] Medical Center Future Scheduled [address] [facility] 00:00:00 examination Medical Center (regime/therapy) [code = 020730489] Future Scheduled 1979 Urine screening for [facility] Test 00:00:00 protein (procedure) Medical Center [code = 046179925] Future Scheduled [address] Test 00:00:00 [code = CT Colonography [facility] Center (combo)] Future Scheduled 1969 Screening for malignant [facility] Test 00:00:00 neoplasm of colon Medical Ce nter (procedure) [code = 792391975] Future Scheduled 1969 Screening for malignant [facility] Test 00:00:00 neoplasm of colon Medical Ce nter (procedure) [code = 058004981] Future Scheduled 1969 Sigmoidoscopy [facility]code [facility]] Medical Cente r Future Scheduled 1969 CT Colonography (combo) [facility] Test 00:00:00 [code = CT Colonography Medi michele Center (combo)] Future Scheduled 1969 Screening for malignant [facility] Test 00:00:00 neoplasm of colon Medical Ce nter (procedure) [code = 458513992] Future Scheduled 1969 Screening for malignant [facility] Test 00:00:00 neoplasm of colon Medical Ce nter (procedure) [code = 881891677] Future Scheduled 1969 Sigmoidoscopy [facility]code [facility]] Medical Cente r Future Scheduled 1969 CT Colonography (combo) [facility] Test 00:00:00 [code = CT Colonography Medi michele Center (combo)] Future Scheduled 1969 Screening for malignant [facility] Test 00:00:00 neoplasm of colon Medical Ce nter (procedure) [code = 440071802] Future Scheduled 1969 Screening for malignant [facility] Test 00:00:00 neoplasm of colon Medical Ce nter (procedure) [code = 169303462] Future Scheduled 1969 Sigmoidoscopy [facility]code [facility]] Medical Cente r Future Scheduled 1969 CT Colonography (combo) [facility] Test 00:00:00 [code = CT Colonography Medi michele Center (combo)] Future Scheduled 1969 Screening for malignant [facility] Test 00:00:00 neoplasm of colon Medical Ce nter (procedure) [code = 648236959] Future Scheduled 1969 Screening for malignant [facility] Test 00:00:00 neoplasm of colon Medical Ce nter (procedure) [code = 138381573] Future Scheduled 1969 Sigmoidoscopy [facility]code [facility]oscopy] Medical Cente r Future Scheduled 1969 CT Colonography (combo) [facility] Test 00:00:00 [code = CT Colonography Medi michele Center (combo)] Future Scheduled 1969 Screening for malignant [facility] Test 00:00:00 neoplasm of colon Medical Ce nter (procedure) [code = 078979253] Future Scheduled 1969 Screening for malignant [facility] Test 00:00:00 neoplasm of colon Medical Ce nter (procedure) [code = 483572306] Future Scheduled 1969 Sigmoidoscopy [facility] S[facility]oscopy] Medical Cente r Encounters Start End Encounter Admission Attending Care Care Encounter Source Date/Time Date/Time Type Type Clinicians Facility Department ID 2022-07-12 Outpatient [facility] [id number] [place] 11:[place]19 [id number] [facility] 2022-07-11 Outpatient [facility] [id number] [place] 10:08:58 [id number] [facility] 2022-07-09 Outpatient [facility] [id number] [place] 16:26:28 [id number] [facility] 2022-06-11 Outpatient Haney, Na STLMLC STLMLC [id number] 2 Common 09:04:01 [facility] 2022-05-06 Outpatient Haney, Na STLMLC STLMLC [id number] 2 Common 14:47:00 [facility] 2022-05-01 Outpatient Haney, Na STLMLC STLMLC [id number] 2 Common 10:38:00 [facility] 2022-04-24 Outpatient Haney, Na STLMLC STLMLC [id number] 2 Common 13:41:01 [facility] 2022-04-18 Outpatient Haney, Na STLMLC STLMLC [id number] 2 Common 14:22:00 [facility] 2022-04-03 Outpatient Haney, Na STLMLC STLMLC [id number] 2 Common 16:47:01 [facility] 2022-03-20 Outpatient Haney, Na STLMLC STLMLC [id number] 2 Common 11:50:01 [facility] 2022-02-22 Outpatient Haney, Na STLMLC STLMLC [id number] 2 Common 09:27:00 [facility] 2022-01-31 Outpatient Haney, Na STLMLC STLMLC [id number] 2 Common 13:37:01 [facility] 2022-01-15 Outpatient Haney, Na STLMLC STLMLC [id number] 2 Common 13:51:00 [facility] 2021-11-19 Outpatient Haney, Na STLMLC STLMLC [id number] 2 Common 11:21:07 [facility] 2021-11-02 Outpatient Haney, Na STLMLC STLMLC [id number] 2 Common 09:23:01 [facility] 2021-10-08 Outpatient Haney, Na STLMLC STLMLC [id number] 2 Common 11:37:01 [facility] 2021-09-24 Outpatient Haney, Na STLMLC STLMLC [id number] 2 Common 11:59:00 [facility] 2021-09-06 Outpatient Haney, Na STLMLC STLMLC [id number] 2 Common 08:34:01 [facility] 2021-08-21 Outpatient Haney, Na STLMLC STLMLC [id number] 2 Common 11:41:00 [facility] 2021-07-25 Outpatient Haney, Na STLMLC STLMLC [id number] 2 Common 14:33:29 [facility] 2021-07-25 Outpatient Haney, Na STLMLC STLMLC [id number] 2 Common 14:24:24 [facility] 2021-07-25 Outpatient Haney, Na STLMLC STLMLC [id number] 2 Common 13:57:58 [id number] [facility] 2021-07-25 Outpatient Haney, Na STLMLC STLMLC [id number] 2 Common 13:56:51 [id number] [facility] 2021-07-25 Outpatient Haney, Na STLMLC STLMLC [id number] 2 Common 13:47:46 [id number] [facility] 2021-07-25 Outpatient Haney, Na STLMLC STLMLC [id number] 2 Common 12:48:36 [id number] [facility] 2021-07-25 Outpatient Haney, Na STLMLC STLMLC [id number] 2 Common 12:33:46 82352 [facility] 2021-07-25 Outpatient Haney, Na STLMLC STLMLC [id number] 2 Common 12:31:18 [id number] [facility] 2021-07-25 Outpatient Haney, Na STLMLC STLMLC [id number] 2 Common 12:26:58 [id number] [facility] 2021-07-25 Outpatient Haney, Na STLMLC STLMLC [id number] 2 Common 12:09:32 62083 [facility] 2021-07-25 Outpatient Hanye, Na STLMLC STLMLC [id number] 2 Common 12:02:06 51213 [facility] 2021-07-25 Outpatient Haney, Na STLMLC STLMLC [id number] 2 Common 12:01:44 [id number] [facility] 2021-07-25 Outpatient Haney, Na STLMLC STLMLC [id number] 2 Common 11:58:40 [id number] [facility] 2021-07-25 Outpatient Haney, Na STLMLC STLMLC [id number] 2 Common 11:57:47 [id number] [facility] 2021-07-25 Outpatient Haney, Na STLMLC STLMLC [id number] 2 Common 11:57:12 [id number] [facility] 2021-07-25 Outpatient Haney, Na STLMLC STLMLC [id number] 2 Common 11:56:42 [id number] [facility] 2021-07-25 Outpatient Haney, Na STLMLC STLMLC [id number] 2 Common 11:55:04 [id number] [facility] 2021-07-25 Outpatient Haney, Na STLMLC STLMLC [id number] 2 Common 11:32:26 80815 [facility] 2021-07-25 Outpatient Haney, Na STLMLC STLMLC [id number] 2 Common 11:32:11 75400 [facility] 2021-07-25 Outpatient Haney, Na STLMLC STLMLC [id number] 2 Common 11:30:56 [id number] [facility] 2021-07-25 Outpatient Haney, Na STLMLC STLMLC [id number] 2 Common 11:24:01 [id number] [facility] 2021-07-25 Outpatient Haney, Na STLMLC STLMLC [id number] 2 Common 11:16:56 [id number] [facility] 2021-07-25 Outpatient Haney, Na STLMLC STLMLC [id number] 2 Common 11:10:23 [id number] [facility] 2021-07-25 Outpatient Haney, Na STLMLC STLMLC [id number] 2 Common 11:09:28 [id number] [facility] 2021-07-25 Outpatient Haney, Na STLMLC STLMLC [id number] 2 Common 10:58:23 [id number] [facility] 2021-07-25 Outpatient Haney, Na STLMLC STLMLC [id number] 2 Common 10:57:38 [id number] [facility] 2022-08-20 2022-08-20 Outpatient [facility] [id number] [place] 13:00:00 13:00:00 [facility] 2022-07-19 2022-07-19 (TEL) STLMLC STLMLC [id number] Co mmon 00:00:00 00:00:00 [facility] 2022-07-18 2022-07-18 (TEL) STLMLC STLMLC [id number] Co mmon 00:00:00 00:00:00 [facility] 2022-06-26 2022-06-26 (TEL) STLMLC STLMLC [id number] Co mmon 00:00:00 00:00:00 [facility] 2022-06-03 2022-06-03 Office Yani, BCM [id number] [id number] [facility] 15:40:00 16:00:00 Visit Suneal K AMBULATOR 350.1.13.21 College Y 0.2.7.2.686 of [id number] [facility] la nena 325 e 2022-05-31 2022-05-31 Office Deal, Kadeem BCM 1.2.840.114 [id number] [facility] 14:30:00 16:18:42 Visit AMBULATOR 350.1.13.21 College Y 0.2.7.2.686 of [id number] Medi la nena 310 e 2022-05-28 2022-05-28 Office [facility] 1.2.840.114 [id number] [facility] 08:40:00 09:47:51 Visit , Mary BartholomewNair 350.1.13.21 College [place] 0.2.7.2.686 of [id number] Medi la nena 506 e 2022-05-28 2022-05-28 Outpatient JUAN [facility] [id number] [facility] 00:00:00 00:00:00 , MARY Lazaro ege of Medicin e 2022-05-25 2022-05-25 (TEL) STLMLC STLMLC [id number] Co mmon 00:00:00 00:00:00 [facility] 2022-05-09 2022-05-09 OFFICE STLMLC STLMLC [id number] Co mmon 00:00:00 00:00:00 VISIT EST Spir it PT LEVEL 3 - [facility] 2022-05-07 2022-05-07 (TEL) STLMLC STLMLC [id number] Co mmon 00:00:00 00:00:00 [facility] 2022-05-06 2022-05-06 OFFICE STLMLC STLMLC [id number] Co mmon 00:00:00 00:00:00 VISIT Spirit ESTAB PT - CHI LEVEL 4 [facility] 2022-03-22 2022-03-22 Office Deal, Kadeem [facility] 1.2.840.114 [id number] [facility] 13:15:00 14:25:46 Visit AMBULATOR 350.1.13.21 College Y 0.2.7.2.686 of [id number] Medi la nena 310 e 2022-03-20 2022-03-20 (TEL) STLMLC STLMLC [id number] Co mmon 00:00:00 00:00:00 [facility] 2022-03-20 2022-03-20 (TEL) STLMLC STLMLC [id number] Co mmon 00:00:00 00:00:00 [facility] 2022-03-19 2022-03-19 (TEL) STLMLC STLMLC [id number] Co mmon 00:00:00 00:00:00 [facility] 2022-03-08 2022-03-08 Outpatient [facility] [id number] [facility] 08:37:00 23:59:00 Colleg e [facility] Medicin e 2022-03-08 2022-03-08 [facility] Chris, [facility] [id number] [facility] [address] 08:37:00 10:47:00 Encounter [facility] 2022-03-08 2022-03-08 Hospital Chris, [facility] [id number] [facility] 08:37:00 10:47:00 Encounter [facility] 2022-03-08 2022-03-08 Outpatient CHRIS, [facility] [place] [id number] [facility] 10:36:11 10:36:11 TRINA [facility] 2022-03-08 2022-03-08 Outpatient CHRIS, [facility] [id number] [facility] 10:30:14 10:30:14 [facility] 2022-03-08 2022-03-08 Surgery Chris, [facility] [id number] 09:30:00 10:30:00 [facility] 2022-03-08 2022-03-08 Surgery Chris, [facility] [id number] 09:30:00 10:30:00 [facility] 2022-03-08 2022-03-08 Anesthesia Kianrosychantelle [facility] [id number] 09:18:00 09:51:00 Event [facility] 2022-03-08 2022-03-08 [facility] [id number] 09:18:00 09:51:00 Event [facility] 2022-03-06 2022-03-06 (TEL) [facility] [id number] Co mmon 00:00:00 00:00:00 Spirit - [facility] 2022-03-05 2022-03-05 Outpatient M [facility] [id number] [facility] 08:53:14 11:01:45 Nadine Medicin e 2022-02-26 2022-02-[address] [facility] 1.2.840.114 [id number] [facility] 11:17:43 12:44:36 Visit , MARY Valdes 350.1.13.21 College 0.2.7.2.686 [id number] Medi la nena 506 e 2022-02-26 2022-02-26 OFFICE STLMLC STLC [id number] Co mmon 00:00:00 00:00:00 VISIT Alexandre KIMI PT - CHI LEVEL 4 [facility] 2022-02-14 2022-02-14 [facility] [id number] 08:58:32 23:59:00 Encounter [facility] 2022-02-14 2022-02-14 [facility] [id number] 08:58:32 23:59:00 Encounter [facility] 2022-02-11 2022-02-11 [facility] [id number] 11:48:54 23:59:00 Encounter [facility] 2022-02-11 2022-02-11 [facility] [id number] 11:48:54 23:59:00 Encounter [facility] 2022-02-11 2022-02-11 Travel [facility] [id number] [facility] 00:[facility]00 00:00:00 [facility] 2022-02-11 2022-02-11 Travel [facility] [id number] [facility] 00:00[facility]00 00:00:00 [facility] 2022-01-29 2022-01-29 (TEL) STLMLC STLC [id number] Co mmon 00:00:00 00:00:00 Spirit - [facility] 2022-01-28 2022-01-28 OL DIG E/M STLMLC STLC [id number] Common 00:00:00 00:00:00 SVC 21+ Spirit MIN - [facility] 2022-01-25 2022-01-25 (TEL) STLMLC STLMLC [id number] Co mmon 00:00:00 00:00:00 [facility] 2022-01-10 2022-01-10 Office EL Aracely, [facility] [id number] 12:30:00 13:00:00 Visit [facility] 2022-01-10 2022-01-10 Office Aracely, [facility] [id number] [facility] 12:30:00 13:00:00 Visit [facility] 2022-01-03 2022-01-03 [facility] [id number] 07:54:07 23:59:00 Encounter [facility] 2022-01-03 2022-01-03 [facility] [id number] 07:54:07 23:59:00 Encounter [facility] 2022-01-03 2022-01-03 (TEL) STLMLC STLMLC [id number] Co mmon 00:00:00 00:00:00 [facility] 2021-12-17 2021-12-17 Office EL Aracely, [facility] [id number] 14:00:00 15:00:00 Visit [facility] 2021-12-17 2021-12-17 Office Aracely, [facility] [id number] 14:00:00 15:00:00 Visit [facility] 2021-12-10 2021-12-10 (TEL) STLMLC STLMLC [id number] Co mmon 00:00:00 00:00:00 [facility] 2021-12-06 2021-12-06 OFFICE STLMLC STLMLC [id number] Co mmon 00:00:00 00:00:[address] 2021-11-21 2021-11-21 (TEL) STLMLC STLMLC [id number] Co mmon 00:00:00 00:00:00 [facility] 2021-11-19 2021-11-19 (TEL) STLMLC STLMLC [id number] Co mmon 00:00:00 00:00:00 [facility] 2021-11-19 2021-11-19 (TEL) STLMLC STLMLC [id number] Co mmon 00:00:00 00:00:00 [facility] 2021-11-19 2021-11-19 OFFICE STLMLC STLMLC [id number] Co mmon 00:00:00 00:00:00 VISIT EST Spir it PT LEVEL 3 [facility] 2021-10-24 2021-10-24 Outpatient D[facility]IA [facility] [id number] [place] 04:35:00 04:35[place]00 [place] [id number] [facility] 2021-10-17 2021-10-17 (TEL) STLMLC STLMLC [id number] Co mmon 00:00:00 00:00:00 [facility] 2021-10-09 2021-10-09 OFFICE STLMLC STLMLC [id number] Co mmon 00:00:00 00:00:00 VISIT [facility] LEVEL 4 [facility] 2021-10-01 2021-10-01 (TEL) STLMLC STLMLC [id number] Co mmon 00:00:00 00:00:00 [facility] 2021-09-27 2021-09-27 Outpatient GOGIA, MHSE MHSE [id number] MH 07:32:00 23:59:[address] [facility] 2021-09-10 2021-09-10 OFFICE STLMLC STLMLC [id number] Co mmon 00:00:00 00:00:00 VISIT EST Spir it PT LEVEL 3 [facility] 2021-09-04 2021-09-04 (TEL) STLMLC STLMLC [id number] Co mmon 00:00:00 00:00:00 [facility] 2021-08-21 2021-08-21 (TEL) STLMLC STLMLC [id number] Co mmon 00:00:00 00:00:00 [facility] 2021-08-21 2021-08-21 OFFICE STLMLC STLMLC [id number] Co mmon 00:00:00 00:00:00 VISIT EST Spir it PT LEVEL 3 - [facility] 2021-08-20 2021-08-20 (TEL) STLMLC STLMLC [id number] Co mmon 00:00:00 00:00:00 [facility] 2021-05-21 2021-05-21 (TEL) STLMLC STLMLC [id number] Co mmon 00:00:00 00:00:00 [facility] 2021-05-21 2021-05-21 OL DIG E/M STLMLC STLMLC [id number] Common 00:00:00 00:00:00 SVC 11-[address] [facility] 2021-05-16 2021-05-17 Outpatient [facility] [id number] Memoria 18:45:00 05:59:00 [place] [address] l [facility] 2021-05-16 2021-05-16 Outpatient GOILSA, MHSE MHSE [id number] MH 12:45:00 23:59:[address] [facility] 2021-04-05 2021-04-05 OFFICE STLMLC STLMLC [id number] Co mmon 00:00:00 00:00:00 VISIT Spirit ESTAB PT - [facility] LEVEL 4 [facility] 2021-03-08 2021-03-08 Outpatient STLMLC STLMLC [id number] Common 00:00:00 00:00:00 [facility] 2021-01-29 2021-01-29 Outpatient STLMLC STLMLC [id number] Common 00:00:00 00:00:00 [facility] 2021-01-17 2021-01-17 Outpatient STLMLC STLMLC [id number] Common 00:00:00 00:00:00 [facility] 2021-01-03 2021-01-03 Outpatient STLMLC STLMLC [id number] Common 00:00:00 00:00:00 [facility] 2021-01-02 2021-01-02 Outpatient STLMLC STLMLC [id number] Common 00:00:00 00:00:00 [facility] 2020-12-04 2020-12-04 Outpatient STLMLC STLMLC [id number] Common 00:00:00 00:00:00 [facility] 2020-11-16 2020-11-16 Outpatient STLMLC STLMLC [id number] Common 00:00:00 00:00:00 [facility] 2020-11-06 2020-11-06 Outpatient STLMLC STLMLC [id number] Common 00:00:00 00:00:00 [facility] 2020-10-03 2020-10-03 Outpatient STLMLC STLMLC [id number] Common 00:00:00 00:00:00 [facility] 2020-09-28 2020-09-28 Outpatient STLMLC STLMLC [id number] Common 00:00:00 00:00:00 [facility] 2020-08-24 2020-08-24 Outpatient STLMLC STLMLC [id number] Common 00:00:00 00:00:00 [facility] 2020-08-17 2020-08-17 Outpatient STLMLC STLMLC [id number] Common 00:00:00 00:00:00 [facility] 2020-08-11 2020-08-11 Outpatient STLMLC STLMLC [id number] Common 00:00:00 00:00:00 [facility] 2020-08-03 2020-08-03 Outpatient STLMLC STLMLC [id number] Common 00:00:00 00:00:00 [facility] 2020-07-31 2020-07-31 Outpatient STLMLC STLMLC [id number] Common 00:00:00 00:00:00 [facility] 2020-06-26 2020-06-26 Outpatient STLMLC STLMLC [id number] Common 00:00:00 00:00:00 [facility] 2020-06-20 2020-06-20 Outpatient [facility]ER[facility]OP [id number] [place] 10:21:00 10:[place] [id number] [facility] 2020-06-15 2020-06-15 Outpatient STLMLC STLMLC [id number] Common 00:00:00 00:00:00 [facility] 2020-06-14 2020-06-14 Outpatient STLMLC STLMLC [id number] Common 00:00:00 00:00:00 [facility] 2020-06-12 2020-06-12 Outpatient STLMLC STLMLC [id number] Common 00:00:00 00:00:00 [facility] 2020-06-07 2020-06-07 Outpatient FERGUSON[facility]MILDRED MEHOP MEHOP [id number] [place] 03:50:00 03:50[place] [id number] da [facility] 2020-06-01 2020-06-01 Outpatient STLMLC STLMLC [id number] Common 00:00:00 00:00:00 [facility] 2020-05-29 2020-05-29 Outpatient STLMLC STLMLC [id number] Common 00:00:00 00:00:00 [facility] 2020-05-08 2020-05-08 Outpatient STLMLC STLMLC [id number] Common 00:00:00 00:00:00 [facility] 2020-05-04 2020-05-04 Outpatient STLMLC STLMLC [id number] Common 00:00:00 00:00:00 [facility] 2020-04-24 2020-04-24 Outpatient STLMLC STLMLC [id number] Common 00:00:00 00:00:00 [facility] 2020-04-20 2020-04-20 Outpatient STLMLC STLMLC [id number] Common 00:00:00 00:00:00 [facility] 2020-04-19 2020-04-19 Outpatient STLMLC STLMLC [id number] Common 00:00:00 00:00:00 [facility] 2020-04-18 2020-04-18 Outpatient STLMLC STLMLC [id number] Common 00:00:00 00:00:00 [facility] 2020-04-17 2020-04-17 Outpatient STLMLC STLMLC [id number] Common 00:00:00 00:00:00 [facility] 2020-04-11 2020-04-12 Outpatient [place] [id number] [facility] 04[facility]59[facility]00 r [place] 00 l [facility] 2020-04-11 2020-04-11 Outpatient GOGIA, MHBL MHBL [id number] MHBL 09:07:00 23:59:00 [facility] 2020-01-26 2020-01-26 [facility] [id number] Common 14:36:00 14:36:[address] [facility] 2020-01-24 2020-01-24 [facility] [id number] Common 13:45:00 13:45:[address] [facility] 2020-01-19 2020-01-19 Outpatient [facility] [id number] Common 08:40:00 08:40:[address] [facility] 2020-01-18 2020-01-18 Out[facility] [id number] Common 15:20:00 15:20:[address] [facility] 2020 2020 Out[facility] [id number] Common 14:44:00 14:44:[address] [facility] 2020 2020 Outpatient [facility] [id number] Common 09:39:00 09:39:[address] [facility] 2019-12-24 2019-12-24 Outpatient [facility] [id number] Common 17:41:00 17:41:[address] [facility] 2019-12-21 2019-12-21 Outpatient [facility] [id number] Common 09:20:00 09:20:[address] [facility] 2019-10-27 2019-10-27 Outpatient [facility] [id number] Common 14:08:00 14:08:[address] [facility] 2019-10-13 2019-10-13 Outpatient [facility] [id number] Common 11:40:00 11:40:[address] [facility] 2019-10-04 2019-10-04 Out[facility] [id number] Common 08:00:00 08:00:[address] [facility] 2019-08-26 2019-08-26 Out[facility] [id number] Common 09:30:00 09:30:[address] [facility] 2019-08-25 2019-08-25 Outpatient [facility] [id number] Common 11:51:00 11:51:[address] [facility] 2019-08-24 2019-08-24 Out[facility] [id number] Common 14:40:00 14:40:[address] [facility] 2019-08-17 2019-08-17 Outpatient [facility] [id number] Common 11:59:00 11:59:[address] [facility] 2019-07-05 2019-07-05 Out[facility] [id number] Common 16:00:00 16:00:[address] [facility] 2019-06-22 2019-06-22 Outpatient [facility] [id number] Common 11:53:00 11:53:[address] [facility] 2019-06-22 2019-06-22 Out[facility] [id number] Common 10:22:00 10:22:[address] [facility] 2019-05-24 2019-05-24 Out[facility] [id number] Common 10:00:00 10:00:[address] [facility] 2019-05-05 2019-05-05 Out[facility] [id number] Common 15:44:00 15:44:[address] [facility] 2019-05-04 2019-05-04 Out[facility] [id number] Common 15:20:00 15:20:[address] [facility] 2019-04-27 2019-04-27 Out[facility] [id number] Common 17:18:00 17:18:[address] [facility] 2019-04-26 2019-04-26 Out[facility] [id number] Common 17:24:00 17:24:[address] [facility] 2019-04-20 2019-04-20 Outpatient [facility] [id number] Common 08:27:00 08:27:[address] [facility] 2019-04-12 2019-04-12 Out[facility] [id number] Common 11:00:00 11:00:[address] [facility] 2019-03-30 2019-03-30 Out[facility] [id number] Common 14:00:00 14:00:[address] [facility] Results Test Description Test Time Test Comments Results Result Comments Source Urine Culture, Routine 2022-05-09 00:00:00 Test Item Value Reference Range Interpretation Comme nts Urine Culture, Routine (test code = 630-4) Final report A POCT HEMOGLOBIN [id number] 18:42:00 Test Item Value Reference Range Interpretation Comments HEMOGLOBIN A1C (test code = 4548-4) 7.7 % 4.0-5.6 A Lab Interpretation (test code = Abnormal 51666-2) [id number] 18:40:02 Test Item Value Reference Range Interpretation Comments Case Report (test code Surgical Pathology = 104) Report Case: [id number] Authorizing Provider: Trina Perez MD Collected: 03/08/2022 09:24 AM Ordering Location: [facility] Received: 03/08/2022 02:08 PM SERVICES Pathologist: Pinky Kumar MD Specimens: A) - Biopsy, Gastric, Bx B) - Polyp, Colon - Transverse, cold snare DIAGNOSIS (test code = k2osgMWxCCYak5qjJXWpfJ 3220) FuZzEwMzNcZnRuYmpcdWMx IHtccnRmMVxlcGljOTYwMl pfqtLsVORidXTsJ8Mwogue ABowQO0hTJ8nfMemaTVrwG ThQMVnEmQlr5cqx527mLUd r3jxQJZGzlhvlMc6lJclU5 5ym3B6UzqxQ38nhKOyNCE5 JCRaFAYunXBgGPOpMZA6YI HfgYNkB5loTYNyFI8djxms PIwkTRrnEOWyoCT5KOGxaR DwY3PlPVSeWAtyFMPpdez2 UoOhCx3qxJVneUrbMIxsGS ZbLVOeLUemQJLrKrEdOK6z R3NFHOIAZJZLAJ2FO5bbyK WqZO6bWBQPOIFLJuhCNNiP ZSEYWMZXXFeKK5KNHRDZYt phJHxEARcpVHGdITWqRU6N IElOVEVTVElOQUwgTUVUQV OFZXJNDCuaCRzUOSbES5mU KH5ZBZEGBdORVq0SKLGQLD VOVElGSUVEXHBhciAtICAg Po0xMHAMFPWIPfJIZEERAX OIYP8FRACEWMxFOJ8IB4MB SVNNUyBJREVOVElGSUVEIE 0BFDSOROCTRwKyV2QQGR8u hXXiVFNnofTESxXKK7vIIz lqYHTYTuHKEBKBQUVWD3yT YqVOX5jPVWyhZX7XFPOLV4 THUQiedLAnIE6eUMVWA5kQ NY4MQRSLJUCZX3ITPZDZKX dLZL8KZStRPSjoOg0hJXeI C43LU8VCBaPFKDRUJ96UGW 9VUyBPUiBIWVBFUlBMQVNU LQJmY4yOCvoBZ4slLRRyAX MiPM01nGEkuWnmYZrpdbVe tdC4UTKwVUZ9OF9sjeScTH HniDIrgMrjtsIlGHfov6Zn DXqxONXlVR2njSgpNPBiGF 8bONVaH7farN8twbm4LaTm XYBfCwJ3XXCaqyM3Ksj5FR BjFZwer3ikm1HpWIQaODe3 mTusTmFzSCEmd4xszfWcOe RgCLSfIGNmSPCnvKFhD288 e6pif5qrzeQvyED8BLAuFW W5SIxnnbAvtrB5NJfpnMNn VwM0BRkzvoEsLThneyMfdr UoKgv8DLMhB127TAF0zStc w1mnEEM4TQBqZXJsUhGmSs 1ikEUiW184NFBuXTVNMTTz rCy8NIBjcjYjbkCtoNXXm3 50Q655d5vdUMNtyzGgoIvO acesz9lfY119UFBiqIAebu TlKmZxPGRfmCAbgED6DGYk HJ0tqzwpVCltRDbxOSFdtl R3QBFvgNHjI6JhFVXvZZ1n oaveIIA7IOskOTInYLQ7Pq ZnGEAwr9Dizom2WmYjec8y aw65QSQ7f8GtlUheCSL2MH Q0NaRsBl6plANnLABbYM4w KiIgmZFjFHKfoz35fTbvVM xgWBH0EBFuulDbi0Szn3qm AcHrksOoE5bsH3WaOCMbGA JdKXIdGfKekvOlf5Cdd7It pAVkzCi2b9lpHVLtPCIkkD wgm0htNOA4LUIesVCxS3ax lV4hCBRfVP6baulvx0arQA uvLGbvETNvaYZ1lvU2NRSq fMQvE6IypX8qABXgBDobCU Wgamt1OqYdFp9jtPUcgRza MFxzYmtwYWdlXHBnbmNvbn RccGduZGVjXHBsYWluXHBs YWluXGYwXGZzMjRccWxcbG FuZzEwMzNcaGljaFxmMVxk OwKjFSDmLWzgG2iuZuExHu MhDbj3KKLfbRWhGFSlOet8 QUGltWBhSQOJuBjtrR8mAS YfcYfyzN9vjEN0XDKkgwTu pCFIhJ7pIMFNrL1bEwN9Xe TbWeD0GBn7LnLtjTMrnE2= CPT Code(s) (test code e1llqQBsUFGtrDP9QyXhPR = 3357) Ywm0aqw3ElsWOpsOPsMOhj tJXmocSvgq11sVC0jZ74FD 6bTUYxFkP9TRVxkcO8Mmx1 LTEtSPVsdCNgC559n8usb3 ebeuHpeDW8aUhfLFLczcpt WmX2SFdyZCVecokkHHa2UJ zuHTJmbYF3LFEsdCVjB3Ko DKFkTH0lstw0QTD2HUxoIU FiZaU8PMRwdJYeRQVisHxn JClrq630UUN1UtZrMYCtre VxyKxjzI5mUkHuIFY1KHKk NSBYIDJccGFyfQ== CLINICAL HISTORY (test v2elrXIlDQFbrKK9SoAnEF code = 3356) Xwc8kea1WksMIhfTEdPExo wFIyjkZfzt82wWV9bW94FX 1iNVKfKfD2KIFpanP0Hyr3 ALKaTYCzpIUxW815t1zxd5 agpbIivNS6QVZuUGCkB3Nc VB7tTQXyeFUeI59fgHTfIN Q2GWTaBTGdaHXxDLZwRDS5 HYNamHVuP6iwDXLcPD6qko znPIyaQIbsXDUzwRH1PTSe rJLdU5UfAMRxZYumBATdud w9LdTjYv3fmWSvsJjzABiq YXJkXHJpMVxwbGFpblxmcz FsEURqRQOQy56hqZCjDLYl YTFngypiHHDjs7u5eD78fH TxhXZtYRtiOgedbR2raEHu qLBgEOZiMEIetTofY9WeiK D1TSReQ4TvMFW3kVCzHHCh fhZObIQffG0afOTlb4EqwD c2SATnx7b5xK50aSWjv0Ap yWKaBPT9mcLcLOGkZaoqYF ZoKCXzhXcyGOMuphUed4Dg mrA0iNJiXCcfFNLsB2NuFL YyQFBvrpMsk0tpkwWtHS7n ZXJccGFyfQ== SPECIMEN SOURCE (test i7havXAwUPHvtQW0VpRyHN code = 3377) Ohe7ytb2KavTIdyMYzVAcj gEHjtuQegg87cGR1oE31RZ 1dSLZvIyW8CUSjuvC1Wyn7 BCKmXHAvwDNxL732x6qsj2 kfsaFjyVA7bHbiXITtkiwk KiE6TPawBHWsmzlpHZc3VI xrASMdmCZ3SOVjzQRfF3Zz XCTlAY9pzvq1GAH8ATtdTW VeYrH2KUMpoRJzGBEjuJqc LZmvb815XRY9KgKiAHSadv ChuCyakA6pGcPkMWTSAkKk UjukzDF1MVZeIZE0mcljML aicgHhKt2wWZCclKilAHKm z1gjbkcdeMIjnvU7DQJoUZ xwYXJ9 GROSS DESCRIPTION (test c5tpbDWfMJYlbFJYEVUqM6 code = [id number]) yjprNpFWLroPBeC4Rpafbs KUvfBT2bJH0jjDljrZZqtZ YdZE5TXYYuGgKuMMQbiAVp mgCmDhRkBIPbeGMleTT1DR SoBZ3vuysjMXhkUAbqMXMf tdM7YLNjgCDhU4FsHPWcKN 6eljtaYZO9ICrttG8kfjUJ PugtPn0tsEHwhPelOsJeQs NoYXJzZXQwXGZuaWwgQXJp EQp9jL1YGafbLEL1CFNHLp zgUBJoBH7Jh6vkEVDcxHJx GJB3GStgpQLzRLDcKWFiPN t9MGHvRKeflVRyKR1azKwk PgxtaOtrm5NhwRXqRPnbON DsAEFbDMfmAUEnAW7LQbOo JOF6BkD5YSNuHMg2KVt5CU 9WUyAiICAzMDAzOTQxMSIg MRc5ZHjnMZ2NRPMkDQLnJA F3KjE5BEQ5HXJiQIEnNwNa XGYgQXJpYWwgXFxmbCBcXG 5bnHdklAFpqlGMUsIQpR1y c1mtPXcpy4JdjIQqBVOkmt ANClxlcGljTmVzdERvYzEg DQpcbHRycGFyXGxpbjBccm luMCANClxsdHJjaFxmczIw HEClLYDytCCkmR1atqNxhq KpVNEwtXOlNLYtdmIdx4Aw QFnkozLrMHGcxEtkSQO9gU QwEIRuNTUaDLXdAY75WQkX NHMgbmFtZSwgbWVkaWNhbC ByZWNvcmQgbnVtYmVyIGFu DCEvX6PsnNKzDmDuwT9ao2 jgOPSuMUEya05waER5hyKh LdB7LBAndh1miG0kBO82F0 6aOV1fy0NgrfKuBEMvb5C3 ZSBmcmFnbWVudHMgKGZyb2 6zOY9wKTBmULYqMJEuNhQm bSBpbiBncmVhdGVzdCBkaW 7zvtSfe73fYzZTsEWxp7Wy A8naLB5hvZStc0ZjqDd1nN AkPWqxGZUjoF5jMz4itK19 bS5eCVHidPXlCSVlx51bbH 4aQ9Suc0J6pEIfULPdZLCm ciANClxwYXIgDQpLTCAocm VzaWRlbnQpXHBhciANClxw bGFpblxlcGljTmVzdERvYz EcsBdqoX23ZYKynXDeJPY4 VV6wBRFomlllSJQxACXfRM U1DLtnyG34zHCdRCXxAVLt xCVouS2Ep6lvQJFweJBcBS H8TQtxaPQfJBLdLSZeEMjj HvBfF7XYPRIxNrr5ADl5Ik TpBLv7PJwlJ3ZOJVXhCJNr KOC8NAGfOpR2QKs9QQCREw 3wQyWoBpX7MPZ7NUA3JBam IFxcdCAyIFxcZiBBcmlhbC VgNZHjQReomfH1QFLgDSFz fIwmyS4yWb4sUK8ghGScHT IfnG0uEX3lSHXfafT2RZCv JP2ujCCwJX9IJFAglKGYAM L7MT5pFJSBAmovgPHtMMNx sKzjPOzhsG4tMF7XACn8ru NoXGZzMjAgVGhlIHNwZWNp cQAnZZdlGOFkK6ZwifUaSU vuMYGule7jlFlvEKpwZyIv bGVkIHdpdGggdGhlIHBhdG mrljRsM4Z7tcKgVT0pODCy LENqQ2TuPHCaU59kUECztA 5yKSMnSO1fWNP9zyIhm9Ns cnNlIHBvbHlwIiBhbmQgY2 5ru9eauVAnj3FcPRQ9HM5v eBvwgfVafGHla4ZqB403SU PuSGV7zBNzwGPtMbCqX80f txQeVThdOxTvQ84goX9tD3 ZfSAYcc0MaZLgsFW9noQ1f QU0sBWsoGBMgASXyjOMoZL dbFWE7Pq9uxPPgWACnzsN9 s4ArRIYcwDtsc0ysVtSrqM f2rfG1rV7gAUiwEVGdu5Qt dHRlIEIxLlxwYXIgDQpccG WnVW3FJ2mhRABej3luYK16 WUthLYAsGQgsjUpfmZ3yLJ DnA23fq2PMx3ElFDBeGBcl j6jhdFbls0GlrMSkBFoeHP JxtZBeXYtnfS7qDvMbj2dj vYy5YZvzbeH2YZOjij2OYz xubI5yZxUwc9sgkXq4JJHK IkzldhP5u5pmbOnrn4HcvZ CzNR4TRv3= MICROSCOPIC DESCRIPTION m0cwbEIaNTLrzWW6QnRuOI (test code = 3371) Dcp9jfz9VajXNflRWpEVcn eTSnycEijc71oWB7pM13TK 9uZWAiFfB4JGCdbkJ8Yxt6 HDCmKRAfgTPnT601g0lgg7 hsneUkfTF2jTawDXBhjdag GoR5CLvqLIRdecwhFCi8MX lqTEVqsSZ6WMNjyJEbZ2Pd ISOcYN8kqtz9ZQS6RNotQO ZtZfH4QESjpAUvPIVdgByh ETjss242NRM6PyRoUVYjlw TzpRvcnU2rDdYcPJYSFQLq t8CsUTImGTZbtb8= Gross assessment was [facility] performed at (test [facility], = 2777) Department of Pathology, [address] [place] [address], Technical component was [facility] performed at ([facility], = 2778) Department of Pathology, [address] [place] [address], Professional component [facility] was performed at ([facility], code = 2778) Department of Pathology, [address] [place], [place] [id number], [facility] [id number] 18:40:02 Test Item Value Reference Range Interpretation Comments Case Report (test code Surgical Pathology = 104) Report Case: [id number] Authorizing Provider: Trina Perez MD Collected: 03/08/2022 09:24 AM Ordering Location: [facility] Received: 03/08/2022 02:08 PM SERVICES Pathologist: Pinky Kumar MD Specimens: A) - Biopsy, Gastric, Bx B) - Polyp, Colon - Transverse, cold snare DIAGNOSIS (test code = [id number] 3220) FuZzEwMzNcZnRuYmpcdWMx IHtccnRmMVxlcGljOTYwMl ususIxQAKbqWMmI2Zhtofc AKizFG1zVB6ajKyziPZbaV VjLQFiLyTbu4wje991sVGk w0mxQKHVxbaquRy3lWdoK3 1hr3N0CwjiG93olWCxEMG7 HULjWOXvlBHqJDFwAOX9JE OkqEQoX4wpGRYmDO6unqeq NKcxLXwsPDEhiIA1EKUveI UlI2MeURSjXPldZFDmruc3 ScOoXt3mbVDoiSpiNBezYB VsYUSvQYoyOFBzArIcBT0v O6SNUEOIWWQMHF8NC6xekC XfRC6xZKFMKOYSXpeOGSeR HVLGBZYOPBqBT0RHULKUUj bxQRpJBEapIIFyUQWkHM3N IElOVEVTVElOQUwgTUVUQV WQJLCXQFxqLAyEAKbLF8wE OH8FWGHUYyAVVv7AYJCRBW VOVElGSUVEXHBhciAtICAg Nq8eUBNXWBXIJuTCNVFEEJ TABH7GDPKIORqNEF4WQ0LO SVNNUyBJREVOVElGSUVEIE 8OAVDSBZPIAeEuF4EOZD3n zKWyMJCwrlRNMrJUX2zFMz ovTLMDUeLGXIDBPKMFH0mQ UmNSQ0wIYNedGM8TOCYHE3 LVOAifdRXvLW5zZOEGV4cV HX1KOSNHTUVZQ4CSDRTIXV eJRW9ZCXfKSYzgPl8gWJdM N99ZM1YYYgYXRBPTJ10XBM 9VUyBPUiBIWVBFUlBMQVNU ROIfQ5hJXbqGE7fgRJYrHP QhZD02vPZqrBgtETjredDq qfH3LYTpJRV7JE4scnQsSZ OflKRypAkfvlVnMTnlk8Jk DQzdWLYtGU7deMtfUWIaUV 3tBBYjQ0juvH8strq3AuSx JBQsPiQ2OMOeftL7Aqy0NL EhDCoww2kyn8QtHTNuZEu6 sSieHzYfFBKtt1uphpDqIe RgSHRxJYKaEXRtsEIlH589 k8rjn2futxVpqAF5KJLbST A0VYaqtdUnbfT0IByufEGb SoA5XGmtuuQmWKvkapFgia UqQfs8FLUrL628XAN2cCeq v0aaDHR8BFZmMXEiSiVeCq 6xiWCyJ379OLZzTDARRVRb bMv2HJKjrsCjqfFqiRPNa5 72F347t1ltFFFsusEbgThH ptrno0mjR917PQOntJBtpq WbQuMyGXDabLGeaCF6QQUn QM7gtdsfMVtcXRfuCWIgmm C0RJRqoIGwK9WnXJDgVQ8b yyhiWCN6JEbbTYPrWED8Dc SeAKWgv3Mcmsw3TePwnx1a jh89XZH0q6WreKdyJHG1GK P3BuEnVq4trVPpMANpSV6y RoZuaNNjAJKuzl22nQhhHG vfZAN4VDJadlLnj9Bdr3rl PbBzswMeY7ypC8JeSKHaKD JcOSAkUhLsttPva7Xof8Yt oTNxdLe8y8aqLYVhSTGowU bdq6dwSEJ0RGTzcGDhX0mk fJ2aNMAwGX7vbeulv4cfST tkAFggRNSkhTV2gkD7QMUt oLNwY0MdrN8lZCIvRYshBQ Qmxhn6VcOpLm9soEOyzRkk MFxzYmtwYWdlXHBnbmNvbn RccGduZGVjXHBsYWluXHBs YWluXGYwXGZzMjRccWxcbG FuZzEwMzNcaGljaFxmMVxk IrNuIAMqCEckU8uxPxAbYq XiXvu4KDTfsEUdOHOuQpy0 DDCmwSDvGSZVhQlkeT1qNR MhnEfrhR6cfBQ1XOQtvuHu rBRXtL6sPBDFiQ1qDpO2Ga QmXtZ7TNw0JyWonTYajD7= CPT Code(s) (test code a1ybsCOlCZSisXP0OqKvSL = 3357) Sra8zgc9UnrOMorCSmZMzd fWJlrsMplc95tTO8vD84AU 8dUKGuJdY8GVFkrgQ5Eas4 XVCcMQEtoMXhN701t2hac0 fwolFpyKB9xOrsZPMkrgil FzH3YOmkYAFlypmdCWw2QK xmHFKhdDI9BRRoiSOnO1Zk SWKfDI6zvxc7KRP8NZxvYU OmXvG5SUZlsIBeZTSjvFoa NAfwi836OFF8ClFwAHLpmp JuhCkoiU2oJtNfNNU1FNPf NSBYIDJccGFyfQ== CLINICAL HISTORY (test s1aytLLlQXEgsYW8FwPvPO code = 8803) Sgt5tka4XwaZPyoOOaAIxd pWJeaqQkqi14gVE0tJ42TL 4lAQRmSnX7AIToenO0Wix1 CJMlISVsoMMkR770w6umg5 maswJoeZT6BVJuMPYjC6Tr WK2hIYGwgNPlK04njMDdNE H8DUBmMNVgzQHdPLIyEEU8 PMVfvHZyU7noJUXlLF5aph teRSthTUzaKEHzfMH5XORo gVPyI9DkALHoSLiuBYTins f5XeVaNc1loPFkgGxkSPkh YXJkXHJpMVxwbGFpblxmcz CgLOGjELSMu83wdFFdBJQi AYBbjbcqADQst1z6fL09qC NbrVSoYSknFzwvmU8zmKOn bOLwLLElGAOigHdqD0CcvW L2HGMdZ5VgVQP7zLJkTFZo gbRPdVGdjD8vwCDto3HhlY q1JSDyz5v6iW32fXBnu2Mu nCDcULI3wpKqZFGkSkzkXY UoNBKjwVqnAESpnmHhm1Wh jmL0tRFuXIvcYHLmC8DuXH JlKCJjlcTwm3gqdiQcTW6x ZXJccGFyfQ== SPECIMEN SOURCE (test e6ricZYzEBVtmWG2QbVxGY code = 3377) Yfs4npt9QojWNlpSSiWMyj hBPbywCaet44pXT9dY67NO 4eZXOlTdB0SUJrukW7Frr4 VEBjXBMtrPQpA722v5txp1 abaiGlbAO6hBtgYVEqaihm ZvW4WCtzIZXzlphnNKx0BB lwMIIwhHM6KOGtxJIpU7Zp RMXkYF1iycy6IVX5GFdqPQ QjLrJ2VVSqiPFyTMJxiYuy ACmus034RNS2GrEjCLKedf IdwOolnC0eFmIqHEBKMxQc QysmgSF8YQPjHHS1tkplUL moriMeSk5kOHOyhLjzTJQi k5fellaiuLXxhpU4UFQfUG xwYXJ9 GROSS DESCRIPTION (test p5yipRBaBEBqlXVBGZWbR8 code = [id number]) ymdiFmVOWuvJZwD3Rnyhys LLbsJC8eHQ5kwFxrrUUzyS RsRZ4AMTCnRkHbRLRtpLJn tqLkMvXsCDXqkTLcoSW7VF OoQN9fwyayNBqkSYjiCOEc wzU0HKZhcUDaU9PvUPNaCI 8ffereIWN4AHorpU7tngEI NkpyHw4rvISdpBqoSkWoTr NoYXJzZXQwXGZuaWwgQXJp XNm3dX9LVfznKDM3GGOBUh yvDHBbTH9Zu6xkCJThaDGw JNV7KKswxYElOCRjRWSrXQ q5BAJoYNmokMQvRK3dgUib NpqbzQsbv4YwsDKrMWldTC FgGLEiNZyaUDKdHF6UHmNe YEO1QsG1EJXfUCz8GUa5UA 9WUyAiICAzMDAzOTQxMSIg IFr7NGujSV5BGFNnQLOtPY O6FxF1XEA3OERpPZPsThRu XGYgQXJpYWwgXFxmbCBcXG 6toRtbiTJaejBJQxQXfD6c i5lyNBnek0XotVWfFFNmqf ANClxlcGljTmVzdERvYzEg DQpcbHRycGFyXGxpbjBccm luMCANClxsdHJjaFxmczIw VWUlKMOaaYKqzH7ompEdwk MkBYOfmNEoHJYqdgCni4St AKckhrNqZOEvfTqkCDR0yN UsIOOdJBEeWASbKH91ZYfN NHMgbmFtZSwgbWVkaWNhbC ByZWNvcmQgbnVtYmVyIGFu DFCqI6ArqYOcEmPubZ0dy5 piTAAdZAAct17fjRQ5seGr HqC8AJRrin7wkE5zNM63K1 7vFD9ie1OiudYmYXSwc7L5 ZSBmcmFnbWVudHMgKGZyb2 5wJV6eFZUyBDEgBRWuUxJz bSBpbiBncmVhdGVzdCBkaW 3tzcOel20aGhKAyJQnv9Pm L6lkCM9yoYHog3ZwmNo5iV DyDVzyMTIcqQ7qYu7pgT35 xT1hNYJalXJwHDSzd15lxG 3wV0Lgn9B9hGUvIWGsDNAw ciANClxwYXIgDQpLTCAocm VzaWRlbnQpXHBhciANClxw bGFpblxlcGljTmVzdERvYz XjfQysfR37QBFpaRZuZIM7 SB0pHDBrbptsUFTlHBXmWK S7IRkpgO40kQBgRFWdDPWs iXKvnJ2Dy2dsAXQvaEElJA Z8MZnsuNBjJPNfHGWdOGux WbUtZ5DBIEQoUef2JAm2Gu QyIMe2VGajK8VHEPVrVZVa YYD2SEUdXyU3ITz0DBJUOi 6fExGkQuF7QMI5RUX9SQzi IFxcdCAyIFxcZiBBcmlhbC YmENLpKUhxbzN2CTVvMQIj uOkyqJ2xJn5rWT8gwCYpJF ZgcN5rXR0nZLMnjhU5FUGv HQ3ofEEpQB5JDNJhwAPRFI R5NB4dCOBWAehapCXbHFBn pBwbHNedaA7hWJ5WZTt8zo NoXGZzMjAgVGhlIHNwZWNp wYZlXItpQLNwL2UjibIxYM rcBTEctf2mzZliFDucMpRv bGVkIHdpdGggdGhlIHBhdG sgjyXuN2T3tqFcCY5yOTSx PQMdU0ByXCRcK10kXSJzmL 7kUBUdNQ5fZFB3ltBlq1Za cnNlIHBvbHlwIiBhbmQgY2 1lz9dhlNFvv2OmLAU6FP2c zUqppgVznGVyg6TkF343KM UvELB5gPWtrAZcGkMiL91z jsKyNFhcHbGaC22pfU6lP4 MpJYEls9QwBRbxRB1drQ6k KW8uLBpoNKNtLGQjxKEyVE qlTJP2Hc5nqFPfPQXsreF4 b4HtNMCalSutk1cwQoVkbI j4pwQ7hO8yGFifODBpr0Wq dHRlIEIxLlxwYXIgDQpccG LhGA3AH2uyQVXnw5rjPS72 OOxsPBBxUOshsNxopQ6jHL NyC12go5EOd6DoSYPxYEev s9vuxMaco9DhwCCbYCrmZR GeoNSpTBjbnI9hSnZel4jt tMg2VIevknW8XLSatb4DLr djzX6eAbOcw4whbMn7GOTS BhfmpdC4v2bptUuqn3QarC MiEX4JMj3= MICROSCOPIC DESCRIPTION n5fcrSUkIYReuCL6AiPsTH (test code = 3371) Rjz2tuu2XbpHCwrBYlFBuj dQBhspIqum98pZT6hN87RD 9sTUOcFvD6DTPtbdE8Uhh1 JVLyAZFuiFHeZ578z9ovm4 xzdiJxbXT9kShcYISzqijt JeE3SUsqDRBjuxhwPQt9HH slNMXqxXW5WKHhpZSjN8Yy ACDhJB1hcbv1EUA5MBwsFK NsAjT1SAMsvEOpKIWyuYcy GSjmx942UIV5AoAwQYUhox MzsRjezL7gKeObSXKANVQf d5XmZFJyOLTbos6= Gross assessment was [facility] performed at ([facility], = 2777) Department of Pathology, [address] [place] [address], Technical component was [facility] performed at ([facility], = 7850) Department of Pathology, [address] [place], [place] [id number], Professional component [facility] was performed at ([facility], code = 2779) Department of Pathology, [address] [place] [address], [facility] [id number] 18:40:02 Test Item Value Reference Range Interpretation Comments Case Report (test code Surgical Pathology = 104) Report Case: [id number] Authorizing Provider: Trina Perez MD Collected: 03/08/2022 09:24 AM Ordering Location: [facility] Received: 03/08/2022 02:08 PM SERVICES Pathologist: Pinky Kumar MD Specimens: A) - Biopsy, Gastric, Bx B) - Polyp, Colon - Transverse, cold snare DIAGNOSIS (test code = [id number] 3220) FuZzEwMzNcZnRuYmpcdWMx IHtccnRmMVxlcGljOTYwMl thlbNdYDTzqIDjC6Tdvmml GGetWB5cLH0ogDxcuOWkpW HfNROkXyFbh6sft562aWLx r6iwQBGDyvccgRa8qXryL6 0tg4C8SdivO61qcYMzYJA9 NMEeNEGgxPPfQLHlGSE2WY YkmYRsX5krRYBgAZ0hzptw PPtcZXjjUSCcnKQ9BGWknJ PjV8EkOUSiFTmlMVJtgxi6 OuMrLb6dfLUhdXzqJNdyCY AyOQKdLRcaUKSpAiGeYN4s O9IVGNMAZYPLDF1RS2ulgC BkCK9eKQIQEMQGMbqEKCsE MLBGUFRNFRiMK0GHHBVQPi rrVZfFQVqrNPLeBTEmEM3H IElOVEVTVElOQUwgTUVUQV UDLSVYPXquYHfFWAeNU9nV II5BWCRFRvHSDl4ILZUAZD VOVElGSUVEXHBhciAtICAg Ze9fASPWYSQJWqKVEKKAHS WUXB4KDRXNHNwTJT1NH0OC SVNNUyBJREVOVElGSUVEIE 8ICKPRPKBCBfScJ8ZTSP2w rBFvTNAdhiSCSxQWU2yMOr pyUBEUJbLVVMBQRPNHN6tU BzBBP5gHOJjwVN2VWXTSI6 BQKDzjuFMlVG7aLZOFK2cG YU0DXSLQJKJLP1UDNRGBNX pLJY5FLUpURGcqZd7iQUeY F34NO7QVVjMEPTCRA69VQL 9VUyBPUiBIWVBFUlBMQVNU FWQpV7cUHylJL9wnJOWvLS KcVU24sNYpnPorKPhuqpLi yoO3ZLHvPXZ0UO8usiTfVE KddAJmkXiwplBnEKrxg5If LHbeAZCgLI0lvGixLOAbGN 3xBFEzX3cldM9xuxp6LnHv IPDbElE9GREyjgB5Saq8IZ IxJRlnm2kvz5KaSETdIDi4 sNmeKwJsGCQmv5ifrnUcIa WaFSOjXTDwTNPmmCMyV290 x1cui8mkpeLqlFA4ESZaJA U4VUzawsDhmmB9EMucaFLs QyL1DKzworQuVSauynTjor HdPam1GLLlK659BIV3bLfp z7ngEOL8DHTaUJNrSpBbTs 1hiWNmE988PXUhIDWMBXXo uGf6RMFqfbFlswJfpYNHj5 71M754t2zbOTHbclSnuTtV egtcp6nrL650HTLmvRJvyr RaRnEaZSZgxLIayCM2PIAc EH4ekrkyHEzbRBnhRSFwlz T1PUKuwMIoC6WrPUWnJA3a igjqGQQ1XQxbRRXnQFE0Pm KsOFFfr1Zjsvn6VdNdak8c fb58IEE0z1DwaOknPAH8XU K6JrSeGb9zpPUnCEOmVF4r YtCaeVYlLCIrux22aXamRC jaQAS5MDOhruGas3Rag3hr QxIqtoNaX0jlT8JoRLEnVW DcFNSbNzZjpvLsx8Dgn3Hd cXMxlDy7q8ikFJFtVMYkhE mja4cwGRP2UFLuaEKeC4lx kH3wFUMlDH2oufnam1seMK ueWYcwTEMkpZF8hjP7HXRc uBLrM2HnfD4gKFWyAVkkCH Evdmc3SzJvKp1jkWPayNcc MFxzYmtwYWdlXHBnbmNvbn RccGduZGVjXHBsYWluXHBs YWluXGYwXGZzMjRccWxcbG FuZzEwMzNcaGljaFxmMVxk YoZgYPAdBVxkQ6ibRgKfAz NaWym7LSZyhOHuUILdLvg3 BYVerONfBNADuObrgT6dOE NvmCzwhQ6juUE9AZWkazVd rIVBbO2bDMPUfO0dJgW7Oq TlUzK5CKg5LeAwrNRypU4= CPT Code(s) (test code r2hieJIiDSHgkST3EqGjIJ = 3357) Zsf9ywz2LocICsgBQoGKjv aSScdwTpke98kPB9nR67AD 3eYLOxIfV4AZRdsvE8Ukz4 BGYkKPIloADoL312q5drr3 yaqsQldOH5zYsbSKCfvqea PfF8WAdfOGEhssfhWRu2HA yqCTWimEV2HPAhwSFwL1Oo FVPwIU4hjsr3FSI2NBxiFG ZgAeZ2LDMkaLPqBITclDuo WUmgo305TFW8DjToPKXoeo YpsRefnL1nYrAlKMJ9UJTt NSBYIDJccGFyfQ== CLINICAL HISTORY (test s3gvgBRhDUUwpPK1HsSePG code = 3356) Szk0aui0GfvTMseJAgRNle xRZgsuLdrc54gBU8vK67KP 7rJLIhFgD3DJBwbeV2Nnv9 GUHdNDEadTQaK999p8hzu4 lrdrZokVH1XGGkHAItT9Yf ZJ4nYJJmhVRyD90uxQGpXF E1IVZfMWFdkFKwDFGgTFV4 IELfoGTsT3lkBHBcQK5jww qxSPalCOueORLcvTQ4AGGy mTRrX8HtPAQpAMxlWFGzhz f0PcZrTp8wzNWenWnjBIlf YXJkXHJpMVxwbGFpblxmcz CyJYKtLSJBc37qsXLiZCVg MYVshemlLEYum5p3cS71rN NcvJNqUIcyKmqmsO8mdHRx jQBcSHZpJHBpwGxfS9KpdB C3WHUdL6IcAJS0gPGxDXHk zpRHhMArnB8jrAJfi9OzcN e1IGZop8a5gL32sJGhj1Tk zSEuOWK8ptQqLVPyOzooPG MfQDQtpWtcACXlmwCrl1Da syC4iWLwLNcnFQZqD9BgTB KhUQKrgwEzu3dadiZtGZ0u ZXJccGFyfQ== SPECIMEN SOURCE (test g0jniAPsVWHslPB4EtFiGT code = 3377) Stg1ulh6QscELmbACaEDjn wTVcpjDxpv65vSJ5bM13NK 8yDXViQeI9JONtiwG9Eff2 WKRrHPNneKFcQ340n3eub7 tndjDsxEE6cKqzBWXotacg FfW7DSaeXHNabtttAEy8NC sjBHEugXC3CLSbrXRuI8Mu CHTwAE2ujif7QYF1BNqlNS SaBlA6ONVyhMEuCVSxoOqd HQpre523XGL0XmKzDPZakq XscTeieA8vHqEkESYTPiFx OgpoxOI8PLWcYJZ3ipwsNQ islqStEu4mDBChdCzeOYOo a8mcqymlmDYlegF0WTSuGW xwYXJ9 GROSS DESCRIPTION (test r0zpkNPzCLMduDWZSHGpA5 code = [id number]) jxpmXoXXFbsPLyV2Ejdkub HEvjBF2lIR3plCoevXGxkC QkVE4KFJCsOePwSJGrmOXm bnXdBnDtNHBsrSVurAZ7XM CaXI4ybasxWAliQSvzLJNj nnE2RDAeiYJoK0SpKXUqEY 6vigfwMXF6JVratE0ytrDZ FpsvEk6rbHOqtQszKvNpIs NoYXJzZXQwXGZuaWwgQXJp LBs2vD4DDasjRTR2VWZTOv clGNBwVN3Fw2fiEQWljTTq UOE9JEtnvAPcIIKyLGIoFU m5DJKkRZmueXUfZR9goLid IlxolQsfy5GolFNzYRxlRZ BfKRKnKIyoJZOyZH5QHnBj BOT0VcD6HWGeGZj2VKu6AW 9WUyAiICAzMDAzOTQxMSIg SRh0QRdaFT2HBHCzUQBrLZ I1LnC2NKO4ZKQxIQYxIyEs XGYgQXJpYWwgXFxmbCBcXG 7gdEhsqFWeayPJRpLSrX9k o2fnDFomr0QnoOAgDKExcs ANClxlcGljTmVzdERvYzEg DQpcbHRycGFyXGxpbjBccm luMCANClxsdHJjaFxmczIw PISaZQSrjQFrgR6pjbUzgo DtNUKtoGYzMZIsjnJsn1Mz WRsdxrFlELUnjYtyABT4wY LdHNKwGPXsKKBkSZ94NQxA NHMgbmFtZSwgbWVkaWNhbC ByZWNvcmQgbnVtYmVyIGFu MVHyC0PleRCkHvFvjV3rx1 myWFKaDTYhh65liER9amUu YyE2KPUuye9ssH2jHM06L8 5gFT3iu7EhbpSxZWPmy9B3 ZSBmcmFnbWVudHMgKGZyb2 7fJZ3pPRYgCQXwXHNgAiDz bSBpbiBncmVhdGVzdCBkaW 3ktgPex64cXkJPfQPvu2Ns P9vbAZ6ilUQhs0VjqBk0yG HrSYmkVTEodR3sYe9ouO78 fY0qRWBqdTKfLCRnw08unT 1cY7Fmv7X9uEEtNTCfMJMx ciANClxwYXIgDQpLTCAocm VzaWRlbnQpXHBhciANClxw bGFpblxlcGljTmVzdERvYz JkkZxxuQ25JIEakKIlHON9 PI4aQIKlmjmhBHPyPIYvES B7QTpjqH54jTQfDIJyWXOp dDXdkQ5Ue9liARFkiPVjPJ K3DHgofGKwXUBpBPZyJRhm PzVaY4ZFUUQhLmr5JEo2Nc LrKHx8PWiiY7ENRRQuONDj KJZ6FNGtNgD3POa0BOJQIy 8jDoFrNpZ7RRI1VYW5LCbu IFxcdCAyIFxcZiBBcmlhbC PbCLLvOZnouiE9STVaNUTk dLqhgB3bJt0rVI5phPOpIH QeiZ1kSI6vTCKuskO3QMFm XY1qoILlQW1GQYXtkFOWVZ X2HC0vKCXWLemzfMReOLSw lIlkIGctjA5jTU4VEXt0vh NoXGZzMjAgVGhlIHNwZWNp gWBaLFlnZKMzY3RagbMoMS nxLRSzbe6trIvsTWjrCuDi bGVkIHdpdGggdGhlIHBhdG znizDeA7K5yjYhZY9yPWDc PIWxC4YbJIXqK47jKARpdS 9iBLQhDD2eGEF5jbMda9Zq cnNlIHBvbHlwIiBhbmQgY2 6eq6csbELtd9MhKQN4DZ7f yWmbigJfuNCjy6TwV711OS GgESX5wZRmgNPcQkTcL54c xiXpPPrdHeIpS39ruO4yH7 EpOPQpg7JoYIheKU3seB8g NM1mJHxaLIHsPSUmnPAsDC ioFLK6Eo4sxHYmCNDafpU5 x3GhUEJjzYmwe9hePcSvdN j7szU4aQ2vKDjnWKWib5Fi dHRlIEIxLlxwYXIgDQpccG LwLI4CD8waDRLxa4vcBP44 CQsmNHDkLEvzuUdggB2qIS QdO82ui6UTy2ObKZVsIYkm e1llzVzlw0VpwTYjGRvzSJ BlnFVjJPtzkW4sXuJcn6xo jYt3BKabpyE5QUBjvp4BBt yalZ8bVqGev7ckzHw9COMM IorzuqH4o2qvpLlef1DaaG NcWU5KHv0= MICROSCOPIC DESCRIPTION t7qiiKZqSUNelON8JlZnQE (test code = 3371) Hky4gko2RfrCBydJGtMFrw kBWkiqJteb70iYE6wF38GO 1wSZEbDsW0FFTakkV9Vad3 GRTrAPZzxHZdL923i4hsx4 oehoBhsQJ6vXfaTNInqbek GuE9YTeaSUHakdnbTAh4BH jeUNVueJL8QFKfqYCxL1Im MWPfTP9vapb6VYP8NTsbIJ ScIlT8HCJmbTXjYQJwnNkw ZHmrk934NQR9ZcKxJCNlig IwjAzoyB7pCrTfGQHOLFUq b5LtIMCjTMSmph3= Gross assessment was [facility] performed at ([facility], = 2777) Department of Pathology, [address] [place] [phone], Technical component was [facility] performed at ([facility], = 2778) Department of Pathology, [address] [place] [phone], Professional component [facility] was performed at ([facility], code = 2779) Department of Pathology, [address] [place] [address], [facility] [id number] 18:40:02 Test Item Value Reference Range Interpretation Comments Case Report (test code Surgical Pathology = 104) Report Case: [id number] Authorizing Provider: Trina Perez MD Collected: 03/08/2022 09:24 AM Ordering Location: [facility] Received: 03/08/2022 02:08 PM SERVICES Pathologist: Pinky Kumar MD Specimens: A) - Biopsy, Gastric, Bx B) - Polyp, Colon - Transverse, cold snare DIAGNOSIS (test code = [id number] 3220) FuZzEwMzNcZnRuYmpcdWMx IHtccnRmMVxlcGljOTYwMl tavzAaOKNpwJYdX9Ibyvit NErqLX1fLY4dmUmahUCckM JjHIHbDgCuv4ynn134bWIi e5trUXOOgsretKv9lDadR8 3dl6P5SacxK80noJCqSKM3 JKKjFVGbtOTzJKGsMNL2MS AdlZEpG6nyCRKiYK0srarj XAljUDmxYANraEL2ESZcpN EaX2NtRUOyVPjzPYYphov2 HrAmLx7kpEOgrQxaZKrlOV MsULGrQWbdDLVdYnBmZM5f C8EPOHCMGMSPYV8YP2uclP JfZF0nFKIQAWVURrpJTFqD PTIKDFVCJEkOW8CVNFVNVk naHDrTNVrxYORwHUPyAX4A IElOVEVTVElOQUwgTUVUQV CPAPSUFXwsOIfOROcIV9kW GF5YGHPKEhHVNy5HCIQUUA VOVElGSUVEXHBhciAtICAg Yv0bELFGVOJNFmBWTJSPLM OISD2YIIJQWCfVOE7NX0FR SVNNUyBJREVOVElGSUVEIE 8BIVXFURMUVsYwN2ATLZ8y xGLpZGRgjoNYHtWPR4jUZe isAICORpLCZGTRYYBXA3aJ MhXHG0sUGRmdYR3HDJMLB0 VANTvjcXQsEP2rLWZDP5uB AA6GRFEKKORTH4AATGDHMY mYTF3HLTeOSBhbZq3fVLbD B16YX8IWMhMBKTOYK24PXK 9VUyBPUiBIWVBFUlBMQVNU XOFiR6iKTsqNE7awVJCuDK WmEG91vNHpnPgvXUgivjGl vjK4OBCmMHF8WH8avtMhWB KnfURepXnfinNnBVczr8Sx NFmaFANhMI9vxDpdEUEjBO 1lOYBrN6cqyA0ctbo3YvQw VYXyAsH5VJDawiW5Zfk5BP QqPEika2cqs5TeXJOtJBn2 hNhlMoEtYUPji7gdloMiYh MdOKNdFXEaAMVieDSjP246 s6lze0ftduDmaJC7HYSoWZ W9EMrcdoJwabZ6DYrzuAPl AlM9WJafzyGvVKceotPahn QoXzq9GIEtY783MQA4qKvf s2kaTRS6QEWaZHOuYjWxMc 5kyIBmU573KKPhIMWPFGZk wVk5XMBqtlGltbFvjIKYs9 90L488f1xeYBWyypEasDnO cskdf5vhL119EGWfeOAcvg XfKuPgLZQqqJIytJI6VHAf AU9ihyjgNWuzZRjvAQJyju Y0ARZxjDFgG4WwSWFbAZ5r ofnzGEM0DRlaDXKaWPD8Wz ObBEQlg3Qvvyh0JdJjao7x ox56KRD9i4IvpFoqCOP6QJ R8LiZnWp1qhOMdSQJbMC2n NiZpdICsLYSsvv00nVkrOM ywFHR9ZALpytJwl3Utn9ox UtMkalYjK5sjQ3SwYGLcFK XwHKKcXxDbagEtf2Slt6Gf iQFhiJp7c3luILHzZIOwqB izr3ieEVQ9WQVbjJLfZ3jw nY3yWBLcDO8nnoxyx3rpPZ aePEfrTLVbkFS8ccE8HROn nPJzF6BbpR1vHZWiAUldHZ Dphsy7UrQrIe5zaIFdwNqv MFxzYmtwYWdlXHBnbmNvbn RccGduZGVjXHBsYWluXHBs YWluXGYwXGZzMjRccWxcbG FuZzEwMzNcaGljaFxmMVxk HnFpQOZwCVkvH9zzFfLeWe XcXwp9ZXXmcPWeSOWfFij2 OFEprAJwYLFMdZfzmV4vEU FswLumlO6czEZ1IYOhwpIs lTKStX9hLXFRsJ7tQwO3Vg WgJuA0OZn4OyImdTLuuD5= CPT Code(s) (test code z5ygyVVeTKOrjXE9WlUlKY = 3357) Dfd3ocb4GvtDFgtNMnFKut nEGtvdHhhu65rNB6yT68CG 5xLHEsSgJ3JVYwlaW7Omp7 OKUeLFVjaJFrY035o4aby1 psdrEisHI4iJxlVSCegioj AmY4VDljBFGuxhktUWg2IU dlUMUxnPM6MJDcbBMqU8Yn RETfIS3wdud6KPU6MJvxGD IwVqC4XUShjBGbRUWjqLkk RPgmy854FUH0OdBuKNVqcp RkzLigtD3zSjSzLTD8TQNf NSBYIDJccGFyfQ== CLINICAL HISTORY (test c2zepEPdOOUfoBL9SpYwHL code = 3356) Xsl5ceh2KwoACggJVsSFnq kCXoyzQeof34dDN5bK46OW 1bHJCbTnX3ONQcorV5Tbb7 YURxWBVijZJtW877r7ofc9 ajfqRbvFI4ISDyMFXjJ9Tu TG0aMSNfmSMdG17gfXMvFB O0ZSEoNCVtjEBnPRXsBGV3 ZFXnaTKwJ9nsKATuSA8lrx vaBKvgTKddLQOpzKH4JHOe gQOtX5ZvWNXmDPweCJSbeg r7ZpFaQe1zbGElyYjqFWre YXJkXHJpMVxwbGFpblxmcz EzDBEuUTZDc06skTYhGDHz FZUirvukWAZna5r0bR83sD RnrLBlIMueEbklvA7jbVPm pVLtMPGdIQZmeZheE1WglD L3MQHyF7DnMBW1xZAaZTEv giHVfFEedF8icQYek7FokV g1REXsn1c8aS41yBWny7Zi kDHmIJU0ouXtGXTeHqeiKG XyWBCwtBflZARcvqMfz0Hc wkT9rKKkTYzyTNFqI3XkCZ EeUKMwmlDaf9pwglXeFT4d ZXJccGFyfQ== SPECIMEN SOURCE (test w1hdiNGrKDNphPX9JtOpJX code = 3377) Low6lwj0FsfZWuuFGdXBrh oGFkpaWhgw92rAK4sO44VL 5rYEYmXkY2IJEgrzP1Gnv4 GCPmJCRfpUVpU717c5ayq9 swpvXsnCT5cTzpODTokkth DhE7RCsxSHPcurpbPWs7CR uyBHNbhTS4XRNdxLDjL4Do BPClAP4jwoh1JUK3HNytRW JjXqA3EHTsoDBdHWYmnRhi XMltc491PFU2BaGeQCOuib KukYeuyQ6cUnAdQAYJQmNt VhchjYG7OEZxFXU3lkelHJ aaipDcQk4cRQYepGzpUZBl p7okxzjtvPFnxvY2JLKeLH xwYXJ9 GROSS DESCRIPTION (test t5mhlSJkZVTslKLMCGWdF1 code = [id number]) sevcJwZGHubBZrQ3Bcaxlu CVrkPT3nNW3caHvjcCRqwH ChQN0OPBGtHtUzCDCaaKTr xfZfBhDkDLSdsJXdxMW9OH BqLF6imenaLMpgBCweHKDi gtE2WGBbvHUrZ6ZkGGEsMJ 6emmocNKK8UDunzK0khxIK XeysSe5egVBpxYeuTuFuWn NoYXJzZXQwXGZuaWwgQXJp ETo1gA9OPxffIIN0KWGYXs wzLFFuSC8Xi4mhEBSpeROu MEN4VOdoaHHfURLmICNdSB t7TCOwUIborCQyRO2enGme KfmquXpyq4TscENyEVqxAZ WoIEGbKKyyLEWuID7NGnLj AVF2EoC4CQRcKLg8WPk3UG 9WUyAiICAzMDAzOTQxMSIg FNt7OZxsJX2OBTHpZJGgPZ Z4VhJ4HGR8CXNdNQJqKpYl XGYgQXJpYWwgXFxmbCBcXG 9otFacmAEiqwKRNnRAkP2n l8keLDvms0ElcFQxTCDiqt ANClxlcGljTmVzdERvYzEg DQpcbHRycGFyXGxpbjBccm luMCANClxsdHJjaFxmczIw BDEfANCzvGHloE3bkxOdhu LnQQGrgAQvBSCmziVec7Pf IHgnkvAdQHCrpWrvLMC3rN SmENGrWHClEADtUH81MYqE NHMgbmFtZSwgbWVkaWNhbC ByZWNvcmQgbnVtYmVyIGFu HPIyP9HosHQeGcMkfO0zb1 kvYALnYIHuj87keCE2jrSb NdI4SHHsci0ewB6jQM09Z1 6mYL9rc7XkneFrWHGhm8Z7 ZSBmcmFnbWVudHMgKGZyb2 3rEJ7kZMLkYGMoYAKtXfCw bSBpbiBncmVhdGVzdCBkaW 4cleUip45iRdAXvKFkd2Nb Q5stGY2zdFEkx6RzjOm7eL YtYGswRPDseY8aYm1tkB34 qF5xNCRjgRDxAVWpr45moC 7aO2Snk6T7bIHgEDYlFLVb ciANClxwYXIgDQpLTCAocm VzaWRlbnQpXHBhciANClxw bGFpblxlcGljTmVzdERvYz VxpQymzL52SOIosONiGVZ6 OG1eHEXdxnclZYQyXLXwLE Y5PSakdA60hACqMJEmHXVv pNYbaO2Wc8usPCBmuWJfQA L3HLremZWaKOVwBJMaCVhg WgKiS1TUKGUbAyk2GKu6Yo KuFJl1QDncR5MCAIBdBXOt QXC8YTWlQaC8HIv4JQVQPq 7iEuEiDiX3UDW8AAX9QZzq IFxcdCAyIFxcZiBBcmlhbC VwDIGhGSegpdH1JJKrRZFe jHiuiJ5cHg8pQE8zwHZjPV FeoL9jWW2zILRcorN0XXTp TY9onNTaIS7KQCJaqQZJWF H4OD1sPAQLBsnprFOdSGLs wMfmIErirO3rIY2EVDe6an NoXGZzMjAgVGhlIHNwZWNp mTTlIFvgHDAlH8CkngAbUU qbXYSicg1ccEoiFBydJtTm bGVkIHdpdGggdGhlIHBhdG scnlQyY0I7rwGmIX6rOQRq BPRhE8BsIOTdS84bWHYqfT 8zXKZmTW9dRTK4uxOmb4Qg cnNlIHBvbHlwIiBhbmQgY2 8yv9mxyRMeu4GbUFY1ZS3o pCwuztNsyERom2QbG817TG OuELR0xNKtsUKuHhSxX25f uoNtQUamYjZhD20rtP6wX1 TbBPAoq4VnKUygQK5hiB7h JV8kSFukBNYtBUFbuTTdDV seFUF7Ln6pqBCtYSKlaiP7 p0XeRGDerGfzn3iuIxBsfJ d7suL7sO9hHNixFEVsk4Zg dHRlIEIxLlxwYXIgDQpccG TdIV0CA5soESBtb5ivXM44 FYqyIKNaXTxliYenfO3nXJ AsH05fn3EAa8BpXWJuJPom f8fhiBhvk8XzwEAbJUggFK HkhALeOLxjjQ1fYoGwe3pn gBq2ACvykeD7FKXocy6EYq ewjF0aGpRhz4lfxMm6RGTL YwivhtT5c8nweNwry0HylK QuCK6RQh9= MICROSCOPIC DESCRIPTION l0ypgAWlGDUflHD0OmHbJH (test code = 3371) Wtp4zgi3DvvYYbvPCqPGgh fKTbajQgdd11oKD5eZ93AZ 0yJKAhHtL4LTZpvyE0Abj3 KABkTWWeuNRwA762w3cmc3 dkjmEwmTT9sQrqBEBrfvph VrY9INlxLFCxyytkOSo3XQ vtGWLcxER3JKFajCQnE2At JQJcWE1lxbi1XNF6BQhrQP MyMrA4MMMqtGUvSOBmuEvi DPhqq389JRF7LnLpIHUwhf XzeVjwfV2oSzYaDQQQJBMk q5HuSJSeTNEqlo0= Gross assessment was [facility] performed at (test code [facility], = 2777) Department of Pathology, [address] [place] [phone], Technical component was [facility] performed at ([facility], = 2778) Department of Pathology, [address] [place] [address], Professional component [facility] was performed at ([facility], code = 2779) Department of Pathology, [address] [place] [address], [facility] [id number] 18:40:02 Test Item Value Reference Range Interpretation Comments Case Report (test code Surgical Pathology = 104) Report Case: [id number] Authorizing Provider: Trina Perez MD Collected: 03/08/2022 09:24 AM Ordering Location: [facility] Received: 03/08/2022 02:08 PM SERVICES Pathologist: Pinky Kumar MD Specimens: A) - Biopsy, Gastric, Bx B) - Polyp, Colon - Transverse, cold snare DIAGNOSIS (test code = [id number] 3220) FuZzEwMzNcZnRuYmpcdWMx IHtccnRmMVxlcGljOTYwMl lzcyGbCTUhoVCsT5Ayyfly UFtdLF1vEO0owCmklKMqoO FxUYFcMcLvd9aaw998hYAf d5lgZOTWteivjUa8zOonQ2 4ho2R0GyvoQ66aqWSbFWO7 HLThZRKmyUDnQEQlHFE4DE CxsJMkQ2pmDZHfWC0repfk PRkcSFwyNWLueKY9TXPovB ZnS1ZtSHTuTLlfSEKyaij5 SyFiKc2ukXHhqCeaNEedOK JpIMVsGJpjWDVaWqXlLT5v C6SMXASZCSBHSN7CH5sheG LrWL2nGNPRFUFAXdkGDBeQ UTCGFNWMVHkVW0ZUCDLIZg bxIWwMVKkaPIIrOLPqUO2T IElOVEVTVElOQUwgTUVUQV KDPEJBQIszTZtSJZjTI2qK RQ1LZZKCVvAPWl9MTFBFXB VOVElGSUVEXHBhciAtICAg Zk7oMQAMCUUTKhWFKRHPSD JNAN4MVVOFWWgHSK3EQ8VV SVNNUyBJREVOVElGSUVEIE 6BJJRESATFNyUhU9ANPL5c vZPlUYSdowKJCpMIS9aYMs gnHSLLUrSKCDJEBNHWF9yD TaFHE5nOISkjMA3LILMCT9 AYXVmwcEWsJZ5hWHDGD6uH EE2LRATXNRZJK8XXIWHBDR lEUI9SMPyFHFcvXp7dDWtL T21IK0HCQiHCUHEQA89CEF 9VUyBPUiBIWVBFUlBMQVNU OPKvS9dQIjcCI2nxPDUfHA UbFX81wAPttXfhTDzrllVb skH4XIPtSAK2WK6felQzTI EeuNIejMjkbwRzFJztk9Nh NTdkXJRzOP4qwBczIMLrUD 5kWRTlR3vkbL7mujo8DoJk JIVrGiV4LLJwdcW0Scw9ZQ QgRLitd0hnm3TwERSmFZs1 xCahQgGwEJMrx2jseuNlHm DmSGHtIVKiYKVjfHWvT606 f0uwy4tozqHraZS0VWZuMA J8JSivmeKttoR7WZdxiIDn CgU3UYakqhAyFIcefpGvcw BlNku2IHQgH569CPS5rOws n1oyRFL0JIIcHXFeSoKlJy 7xsIIcG106ZMElIHBCKLCa oQe7OOIafrUgwuXdhBILn2 25L114j9iaTMFvioZfwTaT tfyfc7urE602OQBxsKVsvm XbXjTeAVSxeWKkkHV3GXSe ZN7bvejiQAlxURxjQKYseb R0SDCwzZRyH1XfQBGwTN3u krisPGM0GEvcACLiLRO7Ez VyZWCpg7Kjehb3XnNlog2a wg36IQA2j2UguCjqFKT4JW F0XoTdWl4ozPEyWVGhHT0s GvQtyOQtUQKsnk55aSwcKG kpVNH0YHXsleEev2Coa4ah XyKonqCaE3eiT1PcCQGhGJ KjMAAcWwZfbrGmj8Pfe4Wa tKFlgHx1n1obSXMrYSCipP qmd0agIOR3ELNqbAOpS9gq uV1qXRYzOJ5yvpkie0tdUP vrMJztMLDkvXW3gqQ2IIZw vSLzV5ZdwQ8tNHMnLGwjDA Sgrig6OqTkGz6dhRQftKog MFxzYmtwYWdlXHBnbmNvbn RccGduZGVjXHBsYWluXHBs YWluXGYwXGZzMjRccWxcbG FuZzEwMzNcaGljaFxmMVxk MxCdCHBjRFedB7usFrJbTz WeUqe8HCZybXZpMJVnAwc1 JBPbbOPuCATLnIlvqG5qWE ZcyLufeT3yxWZ1BCGalbHz hGHJcO9fUMWXzU1fRpC2Vj JjMsY4XYu1CyRxuZHfpH0= CPT Code(s) (test code o6rpaEKsSGVvuFZ2RpMkAO = 3357) Rjg9dit7CwfBIazMBeYTgu bXPbxzLxny31pCU3pU91LT 1iUNZjPrK4TIJejgF4Qfw6 MKOdDQQmvCJtT417o8soh7 amizRjkVY9gEvtKGBcltto RnO3ROsbSIOyzvcfOEp0YR pqJPLydEI8AEIpnMSsT2Te TZIbWQ7zbqm4DRJ4KVjtKR QrMgR6JZRoxGPwYMLvzHml LPbsn279POH1QaHwIIClnf XdtEhepI3pTwBiJLQ3UTQj NSBYIDJccGFyfQ== CLINICAL HISTORY (test f7ymdBNoUZDspPQ5YkIqQS code = 3163) Gby5diu9VipICdmMCiYXug eRVdnnObzp13gEO4sP73LW 3nBWZeCcF9VNQtwaV0Ogo5 HGKkFSKefHAoT630t1mwt8 xrooAcuWO9OHBgABPgJ9Xu SI5gJIBpwRTqH41keLThAI L2YWWqQGVotRTpXHDuZYL0 OTHckWCxF7biGMVpGC3wnj kuYOicSIvuDITacPX5GDNv tJIiE2LjOZHdOBbmGOYypl f7LxGqTy9cqPAmiVxlVTbd YXJkXHJpMVxwbGFpblxmcz DtVQKvZBEXq94fbEOfEIKy BAWphsniECPza1x7jI59tB UntTUsUCzhIkhltK5laVWt rJHuPEAiDKMzyKswN0FgeT D9XVYmO5WfLHS7cXBxCCLa zwKXxEHjsR0erRFsp7LpxP h3FMNia0a0eZ92vHOir3St xSEuRWQ5oqQlNJZlBklqTU BsFXNzuDstMIGflpDma3Ei azB0pBSvVNdfEDMeC9KkMB SqPSDefaKet6puzeZxRP5i ZXJccGFyfQ== SPECIMEN SOURCE (test f8vjuIBbPDFfeWW5XxAyYI code = 3377) Uof3jed9HsxMRwuUKsOElr pWQpgdEozd16fPP8bT80JK 6qHYUjEvP2EVZvmlA7Qzi2 ZYHmQGSaiZXrA297r9ewr5 bfanKesUH1yHivUMHsmgkm XnM1VInxSLIwyohvLGm3NQ ofZJQvqIV6MHPilFZqV6Aa HWStGU3hoqj9WGF4JLwyOR ZuAfU0TQXmeXEaYATunFhv PPnrj306YGJ7AdHmINCefe RrhXpytE0hZwIbQQYZWaPc HeeoeRG1NQDjHPA3zbanUH mewwPjNi1nGQSflVkoRKCq s7gjujylbOYisvZ0ZUOpYG xwYXJ9 GROSS DESCRIPTION (test n5yotQSxYBSowAONDPYhC5 code = [id number]) gaywHoIMRaxEQdV2Oeriuh ZOtfGI8uTK2qnLkmzURnaT KbJN0VTXSsGqXvLPIhmCRq ukPjDxMbZPWlaVQvqJQ0FK DmEM0briohZBbmVSotAMHz plO1YXJreDLbH3YuDKClHW 9ezsgwCEM1EWeqvX7ibzIT SyjbZr2xgUSbwItgZbAyYo NoYXJzZXQwXGZuaWwgQXJp QKo7jB6SVlraWZJ4JKFLEa hpUTHhJB1Cq9bbEAUgtXFn BDR3RFamsROpCGIeGTWrIQ i0VIJfHXdgfZDtUA0agIcl KnmjcNbpt9RkbFFgMBooCV FwCXFbEIxtULCaHD4XRwIc ZHZ7TgU2XSOxDTh3YGk4IB 9WUyAiICAzMDAzOTQxMSIg QFn7TNzjCC1VJKEmGJEbDF F7FaQ3UII3NRLtPVNsGpTn XGYgQXJpYWwgXFxmbCBcXG 8yyCfcmCAqeeCOOtWCmL9b f3cmZOpxr1NzjQKnXZKtwc ANClxlcGljTmVzdERvYzEg DQpcbHRycGFyXGxpbjBccm luMCANClxsdHJjaFxmczIw OQNmLBXdmLRdyA0etlDjks ZlMMMveTCgPQDlapCph9Wr CHehnfPkKUYveYyeFPR8wW DeIVNkNNFgBLGvFI98HUmQ NHMgbmFtZSwgbWVkaWNhbC ByZWNvcmQgbnVtYmVyIGFu ZZDqA8ZjfHHiBgYgvI6nw7 ymIDQpQEGgt64opTH0wdHp WfB9ECCluv0ctP3cAM25Q7 9pYV2si9GeugQnPKQmw0C2 ZSBmcmFnbWVudHMgKGZyb2 3rGW3fAVIsVGQwAPWsNdYe bSBpbiBncmVhdGVzdCBkaW 9virHgq77uOsINrWCdm9Hy U6vlBL6oqMYih4WcnVc2uO ArEIjjYRSapK1uOq5ikG79 vR3dYTXzxQQpGIYvn74cwI 2qL4Zcg0E4bIZkHIZaPJJm ciANClxwYXIgDQpLTCAocm VzaWRlbnQpXHBhciANClxw bGFpblxlcGljTmVzdERvYz TuoZyswY98RRUppFMxGWQ7 DF5vWFZdhztnFIUcCYPuMR C9JAntjN87hHBbXDFsYOAo sIKcxY3Bk3ziKAPbxTJeSC F6NVsocFYrIIDhZVFfRGxh ZfXgQ4JXWKNoZnv0GWb7Ae GuFWw1LUczH1LKVFGuKFMd EGO1MGWgZhG8CAm1PRXRGe 5eCwAxIuS4HZH2EJW2AWsu IFxcdCAyIFxcZiBBcmlhbC VjYJMxKMzdffR2EDGjLIMd tOyewE7lGq2hTI6xkSTdWI HxdG9hEJ0iBAEgbuL2ASSt ZZ6orLLyTZ3TTYNclRRPYW D6KT0hOIBKWureaHSpJVOo sFlgOHvuiY1lJH5IGDm9jf NoXGZzMjAgVGhlIHNwZWNp nLXvPIxiDNGtL5KmoaFfHI tsOLMunh0lhYorHIliTnHg bGVkIHdpdGggdGhlIHBhdG dgxgUkV3U3bhOgRE2vAFCb JSJiX5JsZRMgU92uAOMkfZ 9qPMFcMO5tWTZ8thZlm8Ua cnNlIHBvbHlwIiBhbmQgY2 3an3zggHKng4PoCKD6IY8n uRilfdAfpIUwm5CoV230OA LvTME8wNQdeMEwXxSlE37z wcBvDKtzHpWgB58llB2xY3 CcIHXrx3DdQIkcDW0hsR5h FE0uLPpzVUZeNWDblHHzIT fkOYH1Jz2flOJdIUXatdR6 x4TaGOLweXris7djMiEkhC n1xyA4pL1aRQrbDFBfe8Lv dHRlIEIxLlxwYXIgDQpccG VxCD8KD2ajAEYxd0ovBN45 YOttFPUiEQuccCbtcZ4iXP JoS45is6PPd6CvPUAtLUaf l6dfcJusr3MuaVFvHLkyYC AttYXpKFzcdZ4bKjIek3pv eGy3ZQcfedZ3EQMpqb5BPw rzaD1yLeGfl8miqEk2QLGQ JzrqicF4j3bflQrzr0EizC SaDW1MXd0= MICROSCOPIC DESCRIPTION y5iwvIZyFAGfkVJ8CbZwFU (test code = 3371) Kdo1hbu9SvuHJugWSiPXbj iQZlzsGmgs68qDA1nJ28ZP 6vYEOrDuQ7OBDapnU6Qvy0 HUEgSACirVWgW027z0rzk8 pmovPftOC0hImwOYFyctje SzY7ZGngHECetckpRBl0TT lvFGFrsHC9NIKtwRRbX6Gq NXPdKU4oulr7DGZ5XGmmFZ BdNjG7IFYyuAGeYJUopOar OAqxi066QRC8DvGtQMSpzf NuhSkrpE3sPwKqPUCSIMUi g1XsMYOrRWLxxl3= Gross assessment was [facility] performed at ([facility], = 2777) Department of Pathology, [address] [place] [address], Technical component was [facility] performed at ([facility], = 2778) Department of Pathology, [address] [place] [address], Professional component [facility] was performed at ([facility], code = 2779) Department of Pathology, [address] [place] [address], [facility] [id number] 18:40:02Surgical Pathology Report Case: [id number] Authorizing Provider: Trina Perez MD Collected: 03/08/2022 09:24 AM Ordering Location: [facility] Received: 03/08/2022 02:08 PM SERVICES Pathologist: [...] were examined Signing Pathologist Direct Phone Line: [phone] signed by Pinky Kumar MD on 03/13/2022 at 6:39 [id number] X 2Esophageal varices without bleeding, unspecified esophageal varices type Cirrhosis of liver without ascites, unspecified hepatic cirrhosis type Screen for colon cancerA. Biopsy, gastricB. Polyp, colon, transverseA. Biopsy, Gastric.The specimen is received in formalin labelled with the patient's name, medical record number and "gastric biopsy" and consists of 4 wan-pink mucosa-covered tissue [...] in toto following filtration in cassette B1.SCOTT (resident)Performed.[facility], Department of Pathology, [address] [place] [address], [facility], Department of Pathology, [address] [place] [address], [facility], [facility], [address] [place] [address], IGL-Glucose [id number] 09:27:26 Test Item Value Reference Range Interpretation Comments POC-Glucose Meter (test 87 mg/dL 70-110 : TE STED AT [facility] code = 1538) [facility]0 [place] [address] 7330: [employer] Machine Operator/Techni cheyenne ID = [id number] for ANGELIC BARRETT Lab Interpretation (test Normal code = 17135-0) [facility]-Glucose [id number] 09:27:26 Test Item Value Reference Range Interpretation Comments POC-Glucose Meter (test 87 mg/dL 70-110 : TE STED AT [facility] code = 1538) [facility] [place] [address] 6130: [employer] Machine Operator/Techni cheyenne ID = [id number] for ANGELIC BARRETT L Lab Interpretation (test Normal code = 35131-5) [facility]-Glucose [id number] 09:27:26 Test Item Value Reference Range Interpretation Comments POC-Glucose Meter (test 87 mg/dL 70-110 : TE STED AT [facility] code = 1538) [address] [facility] 7 7030: [employer] Machine Operator/Techni cheyenne ID = [id number] for ANGELIC BARRETT L Lab Interpretation (test Normal code = 20330-8) [facility] [id number] 09:27:26 Test Item Value Reference Range Interpretation Comments POC-Glucose Meter (test 87 mg/dL 70-110 : TE STED AT [facility] code = 1538) [address] [facility] 7 7030: [employer] Machine Operator/Techni cheyenne ID = [id number] for ANGELIC BARRETT L Lab Interpretation (test Normal code = 82149-1) [facility]-Glucose [id number] 09:27:26 Test Item Value Reference Range Interpretation Comments POC-Glucose Meter (test 87 mg/dL 70-110 : TE STED AT [facility] code = 1538) [address] [facility] 7 7030: [employer] Machine Operator/Techni cheyenne ID = [id number] for ANGELIC BARRETT L Lab Interpretation (test Normal code = 20664-0) [facility]-GLUCOSE [id number] 09:27:26 Test Item Value Reference Range Interpretation Comments POC-GLUCOSE METER 87 mg/dL 70-110 : TESTED A T [facility] 7200 (BEAKER) (test code = [place] [facility] [facility], 1538) [facility] 7703 0: [employer] Machine Operator/Techni cheyenne ID = [id number] for VERONA OCONNELL GASTRIC EMPTYING STUDY, SOLID 4 [id number] 15:17:00VANGANETTE MDReason for Exam:->abdominal distension, diabetes, assess [facility]areisis [facility] 1970 Sex: FFINAL REPORT PROCEDURE: GASTRIC EMPTYING STUDY with Solids/Consensus Standard Protocol CPT CODE: 99627 INDICATION: Abdominal distention with diabetes. PROTOCOL: 0.51 [...] by the geometric mean method. FINDINGS: There isprogressive emptying of gastric contents into the small bowel. Gastric retention of tracer was 93%, 7 1%, 40%, and 15% at 1, 2, 3, and 4 hours respectively. (Reference values are <90%, <60%, <30%, and <10% at 1, 2, 3, and 4 hours.) IMPRESSION: Mild delayed gastric emptying of a solid meal using the consensus standard protocol. Signed: Anibal Soto MDRepheartland behavioral health services Verified Date/Time: 02/14/2022 15:17:33 HEPATITIS A ANTIBODY, [id number] 15:13:22 Test Item Value Reference Range Interpretation Comments HEPATITIS A IGG ANTIBODY (BEAKER) Reactive Nonreactive A (test code = 2797) [employer] Machine Operator ID - BSBASI METABOLIC [id number] 14:51:44 Test Item Value Reference Range Interpretation [...] S NOT APPLICABLE FOR DIALYSIS PATIEN TS. [employer] Machine Operator ID - BSHEPATIC FUNCTION [id number] 14:51:44 Test Item Value Reference Range Interpretation [...] (test code = 29 U/L 6-55 347) [employer] Machine Operator ID - BSLACTIC ACID, [id number] 14:42:21 Test Item Value Reference Range Interpretation Comments LACTATE BLOOD VENOUS 1.76 mmol/L 0.50-2.20 Specime n slightly (2) (BEAKER) (test hemolyzed code = 0419) [employer] Machine Operator ID - BSPROTHROMBIN TIME/[id number] 14:38:41 Test Item Value Reference Range Interpretation Comments PROTIME (BEAKER) 13.5 seconds 11.9-14.2 (test code = 759) INR (BEAKER) (test 1.05 See_Comment [Automat ed message] code = 370) The system [employer] generated this result transmitted ref erence range: <=5.90. The reference range was not used to int erpret this result as normal/abnormal . RECOMMENDED COUMADIN/WARFARIN INR THERAPY RANGESSTANDARD DOSE: 2.0 - 3.0 Includes: PROPHYLAXIS for venous thrombosis, systemic embolization; TREATMENT for venous thrombosis and/or pulmonary embolus.HIGH RISK: Target INR is 2.5-3.5 for patients with mechanical heart valves.CBC W/PLT COUNT & AUTO [id number] 14:32:38 Test Item Value Reference Range Interpretation [...] (BEAKER) (test code = 2801) MR, ABDOMEN, [id number] 15:44:00ANETTE HANEY MD Please do per liver protocol Unlisted Reason for Exam - Click Yes and Enter Reason Below->Yes Unlisted Reason for Exam->[facility]rhosis [facility] 1970 Sex: FFINAL REPORT [...] performed by IFA method.Test performed by IFA method.[id number] 17:57:11 Test Item Value Reference Range Interpretation Comments FERRITIN (BEAKER) (test code = 45.90 ng/mL 5.00-275.00 361) [employer] Machine Operator ID - BSHEPATITIS B SURFACE [id number] 17:21:28 Test Item Value Reference Range Interpretation Comments HEPATITIS B SURFACE ANTIBODY < mIU/mL <8.0 (BEAKER) (test code = 647) [employer] Machine Operator ID - BSHEPATITIS B SURFACE [id number] 17:09:40 Test Item Value Reference Range Interpretation Comments HEPATITIS B SURFACE ANTIGEN (2) Nonreactive Nonreactive (BEAKER) (test code = 2585) Specimen is considered negative for HBsAg.ALPHA FETOPROTEIN (AFP), TUMOR MARKER 2021-12-17 17:09:40 Test Item Value Reference Range Interpretation Comments ALPHA-FETOPROTEIN (BEAKER) (test 2.3 ng/mL <10.0 code = 1094) [employer] Machine Operator ID - BSHEPATITIS B CORE ANTIBODY, [id number] 17:09:40 Test Item Value Reference Range Interpretation Comments HEPATITIS B CORE TOTAL ANTIBODY Nonreactive Nonreactive (BEAKER) (test code = 497) [employer] Machine Operator ID - BSHEPATITIS C [id number] 17:09:40 Test Item Value Reference Range Interpretation Comments HEPATITIS C ANTIBODY (BEAKER) Nonreactive Nonreactive (test code = 367) [employer] Machine Operator ID - BSBILIRUBIN, [id number] 16:49:19 Test Item Value Reference Range Interpretation Comments BILIRUBIN DIRECT (BEAKER) (test 0.2 mg/dL 0.1-0.5 code = 706) [employer] Machine Operator ID - BSCOMPREHENSIVE METABOLIC [id number] 16:49:14 Test Item Value Reference Range Interpretation [...] S NOT APPLICABLE FOR DIALYSIS PATIEN TS. [employer] Machine Operator ID - BSIRON, TIBC, % SAT. (WITHOUT FERRITIN)2021-12-17 16:47:34 Test Item Value Reference Range Interpretation Comments IRON (BEAKER) (test code = 547) 58.0 ug/dL 40.0-160.0 TOTAL IRON BINDING CAPACITY 311 ug/dL 250-450 (BEAKER) (test code = 769) IRON % SATURATION (2) (BEAKER) 19 % 20-55 L (test code = 2590) [employer] Machine Operator ID - IAGDDZE-0-XRBQZFERMCL0146-06-20 16:47:17 Test Item Value Reference Range Interpretation Comments ALPHA-1 ANTITRYPSIN (BEAKER) 184.50 mg/dL 90.00-200.00 (test code = 502) [employer] Machine Operator ID - BSLACTIC ACID, [id number] 16:39:11 Test Item Value Reference Range Interpretation Comments LACTATE BLOOD VENOUS 1.29 mmol/L 0.50-2.20 Specime n slightly (2) (BEAKER) (test hemolyzed code = 2872) [employer] Machine Operator ID - BSPROTHROMBIN TIME/[id number] 16:36:56 Test Item Value Reference Range Interpretation Comments PROTIME (BEAKER) 13.9 seconds 11.9-14.2 (test code = 759) INR (BEAKER) (test 1.09 See_Comment [Automat ed message] code = 370) The system [employer] generated this result transmitted ref erence range: <=5.90. The reference range was not used to int erpret this result as normal/abnormal . RECOMMENDED COUMADIN/WARFARIN INR THERAPY RANGESSTANDARD DOSE: 2.0 - 3.0 Includes: PROPHYLAXIS for venous thrombosis, systemic embolization; TREATMENT for venous thrombosis and/or pulmonary embolus.HIGH RISK: Target INR is 2.5-3.5 for patients with mechanical heart valves.CBC W/PLT COUNT & AUTO [id number] 16:33:51 Test Item Value Reference Range Interpretation [...] (BEAKER) (test code = 2801) STREP A [id number] 00:00:00 Test Item Value Reference Range Interpretation Comments Result (test code = 62076-7) Negative CHEM [id number] 20:32:00 Test Item Value Reference Range Interpretation Comments POC Creatinine (test code = POC 0.6 0.5-1.4 Creatinine) [facility] AmericaCHEM [id number] 20:32:00 Test Item Value Reference Range Interpretation Comments eGFR (test code = eGFR) [address] [facility], STEREOTACTIC BIOPSY, BREAST, [id number] 15:59:00Reason for Exam:->calcificationAddendum BeginsPARKWOOD BE[facility]#: [id number]: 05/14/2017 Aditya Corrales M.D. 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 Addendum [facility]#: [id number] - MM, STEREOTACTIC BIOPSY, BREAST, LEFTSTEREOTACTIC GUIDED [...] correct location, five specimens were obtained using [employer] EVIVA device. A clip was inserted into [...] the calcifications. Aditya Corrales M.D. pth/penrad:05/09/2017 11:07:57 Cone Trucker: Felicia Rizzo RT(R)(M), [facility] [address] TISSUE [id number] 12:48:00Surgical Pathology Report Case: [id number] Authorizing Provider: Aditya Corrales MD Collected: 05/09/2017 1110 [facility]: [facility] Received: 05/09/2017 1312 Pathologist: Jackie Maradiaga MD Specimen: Breast, Left, LEFT MIDDLE 12 BREAST CALCIFICATION BREAST, LEFT, BVSDGY32 O'CLOCK, CALCIFICATIONS, STEREOTACTIC CORE NEEDLE BIOPSY: - HYALINIZED FIBROADENOMA - COLUMNAR CELL HYPERPLASIA - COLUMNAR CELL CHANGES - MICROCALCIFICATIONS, COARSE, ASSOCIATED WITH FIBROADENOMA Signing Pathologist Direct Phone Line: [phone] signed by Jackie Maradiaga MD on 05/12/2017 at 12:48 PMIn the sections examined, no atypical hyperplasia or carcinoma is identified.12225Jzhjofghhn lesion Left middle 12 o'clock breast calcifications The specimen is received in a formalin-filled container labeled with the patient's information and labeled "left middle 12 o'clock breast calcifications" and consists of multiple yellow-white breast core biopsies ranging in length from 0.6 to 2.5 cm.Ink code: Black.The specimen is submitted entirely in A1 and A2. CG/ewPerformed.[facility], Department of Pathology, [address] [place] [address], Tel MM, DIGITAL, UNILATERAL, CONFER MARTA, MAMMO, LEFT INCLUDING [id number] 11:07:00Left breast calcificationsMRN#: [id number] - MM, DIGITAL, UNILATERAL, CONFER MARTA, MAMMO, [...] PLACEMENTAwait pathology results. Aditya Ferraro pth/:05/09/2017 11:07:15 Cone Trucker: Felicia BELLA(Linda)(M), [facility] Mammogram BI-RADS: Post- procedure mammogram for marker placement [id number] MM, MAMMO, SPECIMEN, RADIOGRAPH, LEFT 2017-05-09 11:06:00Reason for exam:->Left breast calcificationsMRN#: [id number] - MM, MAMMO, SPECIMEN, RADIOGRAPH, LEFTSPECIMEN LEFT BREAST: 05/09/2017Five stereotactic guided biopsy specimens were imaged for the area of calcifications located in the left breast at 12 o'clock middle depth. IMPRESSION: SPECIMENThe imaged specimens includes the calcifications. Aditya Corrales M.D. pth/:05/09/2017 11:06:40 Cone Trucker: Felicia BELLA(R)(M), [facility] [id number] Electronically signed by: ADITYA CORRALES M.D. on05/09/2017 11:06 AMLumbar Spine 3 ViewsLumbar Spine 3 ViewsSARS-COV 2 AntigenSARS-COV 2 Antigen
[2022-07-31] MEDS ORDERED: ASPIRIN 81 MG CHEWABLE TABLET ONE (15:04)
--- NOTE | 2022-07-31 15:11 | RAD REPORT ---
EXAM DESCRIPTION: [place] Single View07/31/2022 2:38 pm CLINICAL HISTORY: Chest pain COMPARISON: May 2022 FINDINGS: The lungs appear clear of acute infiltrate. The heart is normal size IMPRESSION: No acute abnormalities displayed
[2022-07-31 15:14] LABS: Absolute Lymphocytes (CBC) 2.5 K/uL (0.7-4.9); Hematocrit 41.6 % (36.0-45.0); Lymphocytes % 24.6 % (15.3-44.8); MCV 88.2 fL (80-100); MPV 8.6 fL (7.6-11.3); RBC Red Blood Cell Count 4.71 M/uL (3.86-4.86)
[2022-07-31 15:31] LABS: Potassium 4.2 mmol/L (3.5-5.1); Troponin High Sensitivity 3.7 pg/mL (<58.9)
--- NOTE | 2022-07-31 18:24 | EDPHYS ---
Physician Documentation [facility] Name: Dena Nance Age: 52 yrs Sex: Female : 1970 Arrival Date: 07/31/2022 Time: 14:17 Bed 19 Private MD: ED Physician Francisco Hoskins HPI: 07/31 15:44 This 52 yrs old Female presents to ER via Ambulatory with complaints of Chest kb Pain, Arm Pain. 15:44 Severity of pain: At its worst the pain was moderate in the emergency department the kb pain is unchanged. The patient has not experienced similar symptoms in the past. The patient has not recently seen a physician. Patient is a 52-year-old female with a history of diabetes and renal failure who presents with left-sided chest pain that radiates to left shoulder. Reports pain started 30 minutes prior to arrival. Denies shortness of breath, nausea, vomiting. States pain feels like squeezing to left upper chest and shoulder. Nothing makes pain better or worse.. Historical: - Allergies: 14:27 NKA; ll1 - PMHx: 14:27 Diabetes - NIDDM; gastritis; fatty liver; Diverticulitis; Crohn's Disease; cirrhosis of ll1 liver; Colitis; Pancreatitis; kidney failure; - PSHx: 14:27 Cholecystectomy; hysterectomy; ll1 - Immunization history:: Client reports receiving the 2nd dose of the Covid vaccine. - Social history:: Smoking status: Patient denies any tobacco usage or history of. ROS: 15:16 Constitutional: Negative for fever, chills, and weight loss. kb 15:16 Cardiovascular: Positive for chest pain, Negative for edema, orthopnea, palpitations, paroxysmal nocturnal dyspnea. 15:16 MS/extremity: Positive for pain, of the left arm. 15:16 All other systems are negative. Exam: 15:02 Constitutional: This is a well developed, well nourished patient who is awake, alert, kb and in no acute distress. Head/Face: Normocephalic, atraumatic. ENT: Moist Mucous membranes Cardiovascular: Regular rate and rhythm with a normal S1 and S2. No gallops, murmurs, or rubs. No pulse deficits. Respiratory: Respirations even and unlabored. No increased work of breathing. Talking in full sentences Abdomen/GI: Soft, non-tender. No distention Skin: Warm, dry with normal turgor. Normal color. MS/ Extremity: Pulses equal, no cyanosis. Neurovascular intact. Full, normal range of motion. Neuro: Awake and alert, GCS 15, oriented to person, place, time, and situation. Moves all extremities. Normal gait. Psych: Awake, alert, with orientation to person, place and time. Behavior, mood, and affect are within normal limits. 15:02 ECG was reviewed by the Attending Physician. Vital Signs: 14:27 BP 129 / 70; Pulse 76; Resp 17; Pulse Ox 99% ; Weight 69.4 kg; Height 5 ft. 4 in. ll1 (162.56 cm); Pain 10/10; 15:20 BP 123 / 63; Pulse 72; Resp 18; Pulse Ox 96% on R/A; vg1 15:30 BP 118 / 63; Pulse 69; Resp 18; Pulse Ox 96% on R/A; vg1 16:00 BP 115 / 62; Pulse 72; Resp 18; Pulse Ox 98% on R/A; vg1 16:30 BP 123 / 65; Pulse 71; Resp 18; Pulse Ox 98% on R/A; vg1 17:30 BP 121 / 70; Pulse 80; Resp 16; Pulse Ox 97% on R/A; vg1 18:30 BP 111 / 65; Pulse 73; Resp 16; Pulse Ox 98% on R/A; vg1 14:27 Body Mass Index 26.26 (69.40 kg, 162.56 cm) ll1 MDM: 14:20 Patient medically screened. kb 14:25 ED course: Patient presents for left upper chest pain with radiation to left shoulder kb that started 30 minutes prior to arrival. Patient has no cardiac history. No abnormal objective findings on physical exam. Will obtain cardiac work-up including serum labs, EKG and chest x-ray.. 15:15 Data reviewed: vital signs, nurses notes. kb 15:45 Differential diagnosis: abnormal EKG, acute myocardial infarction, coronary artery kb disease chest wall pain. The patient was given aspirin in the Emergency Department. Consideration of Admission/Observation Escalation of care including admission/observation considered. Scoring Tools Scoring Tools HEART Score: Total Score = 2. 15:47 ED course: EKG, chest x-ray and troponin within normal limits. All other labs within kb normal limits with the exception of glucose which is 210. Heart score of 2 due to history and age. Patient educated on all diagnostic findings and plan for repeat troponin 3 hours from first draw. If normal plan is to go home and patient will follow-up with cardiology. Patient in agreement with plan of care.. 16:01 Counseling: I had a detailed discussion with the patient and/or guardian regarding: the kb historical points, exam findings, and any diagnostic results supporting the discharge/admit diagnosis, lab results, radiology results, the need for outpatient follow up, a asset analyst, to return to the emergency department if symptoms worsen or persist or if there are any questions or concerns that arise at home. Transition of care: After a detail discussion of the patient's case, care is transferred to Robin Moise NP. 18:22 Counseling: I had a detailed discussion with the patient and/or guardian regarding: the pm1 historical points, exam findings, and any diagnostic results supporting the discharge/admit diagnosis, lab results, radiology results, the need for outpatient follow up, a asset analyst, to return to the emergency department if symptoms worsen or persist or if there are any questions or concerns that arise at home. 07/31 14:26 Order name: Basic Metabolic Panel; Complete Time: 15:36 kb 07/31 14:26 Order name: CBC with Diff; Complete Time: 15:20 kb 07/31 14:26 Order name: Magnesium; Complete Time: 15:36 kb 07/31 14:26 Order name: NT PRO-BNP; Complete Time: 15:36 kb 07/31 14:26 Order name: Troponin HS; Complete Time: 15:36 kb 07/31 17:03 Order name: Troponin High Sensitivity; Complete Time: 18:10 vg1 07/31 14:26 Order name: XRAY Chest (1 view); Complete Time: 15:11 kb 07/31 14:26 Order name: EKG; Complete Time: 14:26 kb 07/31 14:26 Order name: Cardiac monitoring; Complete Time: 14:58 kb 07/31 14:26 Order name: EKG - Nurse/Tech; Complete Time: 14:58 kb 07/31 14:26 Order name: IV Saline Lock; Complete Time: 14:58 kb 07/31 14:26 Order name: Labs collected and sent; Complete Time: 14:58 kb 07/31 14:26 Order name: O2 Per Protocol; Complete Time: 14:30 kb 02 14:26 Order name: O2 Sat Monitoring; Complete Time: 14:30 kb EC:02 Rate is 77 beats/min. Rhythm is regular. QRS [place] is Normal. VT interval is normal at kb 170 msec. QRS interval is normal at 86 msec. QT interval is normal at 407 msec. Administered Medications: 15:01 Drug: Aspirin Chewable Tablet 324 mg Route: PO; vg1 16:55 Follow up: Response: No adverse reaction; Pain is decreased vg1 Disposition: 18:59 Co-signature as Attending Physician, Francisco Hoskins MD I agree with the assessment and kdr plan of care. Disposition Summary: 07/31/22 18:23 Discharge Ordered Location: Home pm1 Condition: Stable pm1 Diagnosis - Chest pain, unspecified pm1 Followup: kb - With: Emergency Department - When: As needed - Reason: Worsening of condition Followup: kb - With: Private Physician - When: 2 - 3 days - Reason: Recheck today's complaints, Continuance of care, Re-evaluation by your physician Discharge Instructions: - Discharge Summary Sheet kb - Nonspecific Chest Pain, Adult, [id number] kb Forms: - Medication Reconciliation Form pm1 - Thank You Letter pm1 - Antibiotic Education pm1 - Prescription Opioid Use pm1 Signatures: Dispatcher [employer] EDMS Valentina Myles, SHANA-Ari RIGGSP-Francisco Qiu MD MD kdr Robin Moise NP [employer]ER pm1 Zully Baker RN RN vg1 Delfin Young RN RN ll1 Corrections: (The following items were deleted from the chart) 15:51 15:47 ED course: EKG, chest x-ray and troponin within normal limits. . kb kb
--- NOTE | 2022-07-31 18:24 | ER ---
Nurse's Notes [facility] Name: Dena Nance Age: 52 yrs Sex: Female : 1970 Arrival Date: 07/31/2022 Time: 14:17 Bed 19 Private MD: Diagnosis: Chest pain, unspecified Presentation: 07/31 14:27 Chief complaint: Patient states: L CP that radiates into L arm for 30 min [employer]. ll1 Coronavirus screen: Vaccine status: Patient reports receiving the 2nd dose of the covid vaccine. Client denies travel out of the [place] in the last 14 days. At this time, the client does not indicate any symptoms associated with coronavirus-19. Ebola Screen: Patient denies travel to an Ebola-affected area in the 21 days before illness onset. Initial Sepsis Screen: Does the patient meet any 2 criteria? No. Patient's initial sepsis screen is negative. Does the patient have a suspected source of infection? No. Patient's initial sepsis screen is negative. Risk Assessment: Do you want to hurt yourself or someone else? Patient reports no desire to harm self or others. Onset of symptoms was July 31, 2022. 14:27 Method Of Arrival: Ambulatory ll1 14:27 Acuity: MARIANA 3 ll1 Triage Assessment: 14:28 General: Appears uncomfortable, Behavior is calm, cooperative, appropriate for age. ll1 Pain: Complains of pain in chest Pain currently is 10 out of 10 on a pain scale. Quality of pain is described as squeezing, Pain began 30 min ago. Neuro: No deficits noted. Cardiovascular: Reports chest pain. Musculoskeletal: Reports pain in left arm. Historical: - Allergies: 14:27 NKA; ll1 - PMHx: 14:27 Diabetes - NIDDM; gastritis; fatty liver; Diverticulitis; Crohn's Disease; cirrhosis of ll1 liver; Colitis; Pancreatitis; kidney failure; - PSHx: 14:27 Cholecystectomy; hysterectomy; ll1 - Immunization history:: Client reports receiving the 2nd dose of the Covid vaccine. - Social history:: Smoking status: Patient denies any tobacco usage or history of. Screenin:04 [facility] ED Fall Risk Assessment (Adult) History of falling in the last 3 months, vg1 including since admission No falls in past 3 months (0 pts) Confusion or Disorientation No (0 pts) Intoxicated or Sedated No (0 pts) Impaired Gait No (0 pts) Mobility Assist Device Used No (0 pt) Altered Elimination No (0 pt) Score/Fall Risk Level 0 - 2 = Low Risk Oriented to surroundings, Maintained a safe environment, Educated pt \T\ family on fall prevention, incl call for assistance when getting out of bed, Assessed \T\ reinforced patient's understanding of fall precautions. Abuse screen: Denies threats or abuse. Denies injuries from another. Nutritional screening: No deficits noted. Tuberculosis screening: No symptoms or risk factors identified. Assessment: 14:30 General: Appears in no apparent distress. uncomfortable, Behavior is calm, cooperative. vg1 Pain: Complains of pain in anterior aspect of left upper chest Pain radiates to left arm Pain currently is 10 out of 10 on a pain scale. Pain began 3 hours ago. Neuro: Level of Consciousness is awake, alert, obeys commands, Oriented to person, place, time, situation, Denies headache. Cardiovascular: Patient's skin is warm and dry. Respiratory: Airway is patent Respiratory effort is even, unlabored, Denies shortness of breath. GI: Abdomen is flat, Patient currently denies nausea, vomiting. : No signs and/or symptoms were reported regarding the genitourinary system. EENT: No signs and/or symptoms were reported regarding the EENT system. Derm: Skin is pink, warm \T\ dry. Musculoskeletal: Circulation, motion, and sensation intact. 16:14 Reassessment: Patient appears in no apparent distress at this time. Patient and/or vg1 family updated on plan of care and expected duration. Pain level reassessed. Patient is alert, oriented x 3, equal unlabored respirations, skin warm/dry/pink. Pt rated CP 6/10. 17:20 Reassessment: Patient appears in no apparent distress at this time. Patient and/or vg1 family updated on plan of care and expected duration. Pain level reassessed. Patient is alert, oriented x 3, equal unlabored respirations, skin warm/dry/pink. Patient states feeling better. 18:30 Reassessment: Patient appears in no apparent distress at this time. No changes from vg1 previously documented assessment. Patient and/or family updated on plan of care and expected duration. Pain level reassessed. Patient is alert, oriented x 3, equal unlabored respirations, skin warm/dry/pink. Vital Signs: 14:27 BP 129 / 70; Pulse 76; Resp 17; Pulse Ox 99% ; Weight 69.4 kg; Height 5 ft. 4 in. ll1 (162.56 cm); Pain 10/10; 15:20 BP 123 / 63; Pulse 72; Resp 18; Pulse Ox 96% on R/A; vg1 15:30 BP 118 / 63; Pulse 69; Resp 18; Pulse Ox 96% on R/A; vg1 16:00 BP 115 / 62; Pulse 72; Resp 18; Pulse Ox 98% on R/A; vg1 16:30 BP 123 / 65; Pulse 71; Resp 18; Pulse Ox 98% on R/A; vg1 17:30 BP 121 / 70; Pulse 80; Resp 16; Pulse Ox 97% on R/A; vg1 18:30 BP 111 / 65; Pulse 73; Resp 16; Pulse Ox 98% on R/A; vg1 14:27 Body Mass Index 26.26 (69.40 kg, 162.56 cm) ll1 ED Course: 14:17 Patient arrived in ED. as 14:20 Valentina Myles FNP-C is PHCP. kb 14:20 Francisco Hoskins MD is Attending Physician. kb 14:26 Zully Baker RN is Primary Nurse. vg1 14:26 Arm band placed on Patient placed in an exam room, on a stretcher. ll1 14:28 Triage completed. ll1 14:30 Patient has correct armband on for positive identification. Placed in gown. Bed in low vg1 position. Call light in reach. Side rails up X 1. Client placed on continuous cardiac and pulse oximetry monitoring. NIBP monitoring applied. 14:40 XRAY Chest (1 view) In Process Unspecified. EDMS 14:50 Inserted saline lock: 20 gauge in right antecubital area, using aseptic technique. vg1 Patient maintains SpO2 saturation greater than 95% on room air. 16:14 PHCP role handed off by Valentina Myles FNP-C pm1 16:14 Robin Moise NP is PHCP. pm1 17:40 Troponin High Sensitivity Sent. vg1 18:54 No provider procedures requiring assistance completed. IV discontinued, intact, vg1 bleeding controlled, No redness/swelling at site. Pressure dressing applied. Administered Medications: 15:01 Drug: Aspirin Chewable Tablet 324 mg Route: PO; vg1 16:55 Follow up: Response: No adverse reaction; Pain is decreased vg1 Medication: 14:30 VIS not applicable for this client. vg1 Outcome: 18:23 Discharge ordered by . pm1 18:54 Discharged to home ambulatory. vg1 18:54 Condition: good 18:54 Discharge instructions given to patient, Instructed on discharge instructions, follow up and referral plans. Demonstrated understanding of instructions, follow-up care. 18:55 Patient left the ED. vg1 Signatures: Dispatcher [employer] EDMS Valentina Myles, BRAND MARKETING SPECIALIST-C BRAND MARKETING SPECIALIST-Myranda Diana Patrick, DARRELL PLATE MOLDER pm1 Zully Baker RN RN vg1 Delfin Young RN RN ll1 Corrections: (The following items were deleted from the chart) 17:40 17:40 Reassessment: Patient appears in no apparent distress at this time. Patient vg1 and/or family updated on plan of care and expected duration. Pain level reassessed. Patient is alert, oriented x 3, equal unlabored respirations, skin warm/dry/pink. Patient states feeling better. vg1
[2022-07-31 19:44] VITALS: BP 111/65; O2SAT 98
== END 2022-07-31 18:55 | disposition home or self-care (01) ==
LOC: ER 14:15
DX: R07.89 Other chest pain (principal); E11.22 Type 2 diabetes mellitus with diabetic chronic kidney disease; N18.9 Chronic kidney disease, unspecified
CPT/HCPCS: 36415; 71045; 80048; 83735; 83880; 84484; 85025; 93005

== ENCOUNTER 2022-09-19 13:22 | Emergency (ER) | payer OTHER ==
--- OUTSIDE RECORDS SUMMARY | 2022-09-19 13:39 | XMS REPORT | Continuity of Care Document ---
:1970 Author Organization [facility] t Address [address] [place] [address] [place] [id number] Care Team Providers Name Role Phone Unknown, Physician Primary Care Physician Unavailable Urvashi Boyd Attending Clinician Unavailable Anette Haney Attending Clinician Unavailable Essie Antonio Attending Clinician Unavailable Kadeem Minor MD Attending Clinician Harish SHEETER OPERATOR, Karsten Alvarado Attending Clinician 1.5, [facility] Lucio Mr Attending Clinician Unavailable Valentina Vitale MD Attending Clinician KARSTEN MOREIRA Attending Clinician Unavailable Rhonda Lomeli MD Attending Clinician Mary Gilliam MD Attending Clinician [phone] MARY GILLIAM Attending Clinician UnavailTrina Lozada MD Attending Clinician TRINA PEREZ Attending Clinician Unavailable Yudith Alonzo MD Attending Clinician Unavailable William Jessica MD Attending Clinician Luís Greer Attending Clinician JAVY Attending Clinician Unavailable RONALD SOMMER Attending Clinician Unavailable ADITYA CORRALES Attending Clinician Unavailable Essie Antonio Admitting Clinician Unavailable TRINA PEREZ Admitting Clinician Unavailable JAVY Admitting Clinician Unavailable RONALD SOMMER Admitting Clinician Unavailable Payers Payer Name Policy Type Policy Number Effective Date Expiration Date Edi richard AMBETTER [id number] 2020 [facility] 00:00:00 [facility] [id number] 2016 HEALTH CHOICE 00:00:00 O [facility] PCP Ambetter from [id number] 2018 Common Spi rit [facility] 00:00:00 - [facility] Ambetter from [id number] 2018 Common Spi rit [facility] 00:00:00 - [facility] Ambetter from [id number] 2018 Common Spi rit [facility] 00:00:00 - [facility] Problems Condition Condition Condition Status Onset Resolution Last Treating Co mments Source Name Details Category Date Date Treatment Clinician Date Other Other Disease Recurre [facility] cirrhosis cirrhosis nce 6-20 [facility] of liver of liver [...] R10.10=UPP 1-10 16:11:00 l ER ER 00:00: [place] ABDOMINAL ABDOMINAL 00 PAIN, PAIN, UNSPECI UNSPECI Active 05/09/2021 [facility] DX: DX: Diagnosis Active 2019-062020-04-11 Mem oria R10.10, R10.10, 0-07 09:14:00 l R14.0 R14.0 00:00: [place] Active 00 04/05/2020 [facility] [place] [id number] Diabetic Problem Comm on polyneurop Spirit athy - [facility] associated [facility] with type [facility] 2 diabetes [facility] [id number] Depression Problem Co mmon with Spirit anxiety - [facility] [id number] 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 diabetes - [facility] mellitus [facility] with [facility] hyperglyce [facility] [id number] Seasonal Problem Comm on allergies Spirit - [facility] [id number] Fatty Problem Common liver [facility] - [facility] [id number] Irritable Problem Com mon bowel [facility] [id number] Symptomati Problem Co mmon c spider Spirit varicose - [facility] vein [facility] [id number] Panic Problem Common disorder [facility] [episodic - [facility] paroxysmal [facility] anxiety] [facility] [id number] Acute Problem Common stress [facility] reaction [facility] [id number] Closed Problem Common nondisplac Spirit ed - [facility] fracture [facility] of phalanx [facility] of thumb, Medical unspecifie Center d laterality , unspecifie d phalanx, initial encounter [id number] Gastroesop Problem Co mmon hageal Spirit reflux - [facility] disease, esophagiti [facility] s presence Medica l not Center specified [id number] Diverticul Problem Co mmon osis Spirit - [facility] [id number] Other Problem Common chronic Spirit gastritis - [facility] without [facility] Psoriatic Psoriatic Problem Com mon arthritis arthritis Spir it [facility] [id number] Diverticul Problem Co mmon osis of Spirit colon - [facility] [id number] Dysuria Problem Common 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 [facility] [id number] Gastro-eso Problem Co mmon phageal Spirit reflux - CHI disease [facility] esophagiti Medica [facility] [id number] Crohn's Problem Common disease of Spirit colon - [facility] [id number] Memory Problem Common deficit [facility] [id number] Thrombocyt Problem Co mmon openia [facility] [id number] Other Problem Common chronic [facility] pain [facility] [id number] Unsteady Problem Commo n gait [facility] [id number] Arthritis Problem Co mmon [id number] of left [facility] hip [facility] Allergies, Adverse Reactions, Alerts Allergy Allergy Status Severity Reaction(s) Onset Inactive Treating Comm ents Source Name Type Date Date Clinician NO KNOWN Allergy Active [facility] Family History Family Member Diagnosis Comments Start Date Stop Date Source Natural brother Diabetes [facility] Natural father Diabetes [facility] Natural mother Diabetes [facility] Natural sister Diabetes [facility] Social History Social Habit Start Date Stop Date Quantity Comments Source History of Common Spirit - Tobacco Use [facility] Exposure to 2022-08-10 2022-08-20 Not sure [facility] SARS-CoV-2 00:00:00 15:56:00 (event) Alcohol intake 2022-08-01 2022-08-01 Ex-drinker [facility] 00:00:00 00:00:00 (finding) [facility] Tobacco use and 2022-02-26 2022-02-26 Smokeless tobacco Ba or College exposure 00:00:00 00:00:00 non-user of Medicine History SDOH 2022-02-25 2022-02-25 0 [facility] Physical Activity 00:00:00 00:00:00 of Medi cine DPW History SDOH 2022-02-25 2022-02-25 0 [facility] Physical Activity 00:00:00 00:00:00 of Medi cine MPS Sex Ass[birth year] At [birth year] [facility] 00:00:00 00:00:00 Smoking Status Start Date Stop Date Source Never smoked tobacco [facility] Medications Ordered Filled Start Stop Current Ordering Indication Dosage Frequency Signature Comments Components Source Medication Medication Date Date Medication? Clinician (SIG) Name Name metformin 2022-0 Yes 500mg Take 1 [facility] (GLUCOPHAGE 3-03 Tablet by Col lege ) 500 MG 15:21: mouth four of tablet 23 times Medicin daily. e sertraline 2022-0 Yes 50mg Take 2 [facility] (ZOLOFT) 25 3-03 Tablets by Co llege MG tablet 15:21: mouth of 23 daily. Medicin e gabapentin 2022-0 Yes 300mg Take 1 [facility] (NEURONTIN) 3-03 capsule by Co llege 300 MG 15:21: mouth 3 of capsule 23 times Medicin daily. e famotidine 2022-0 Yes 40mg Take 1 [facility] (PEPCID) 40 3-03 Tablet by Col lege MG tablet 15:21: mouth of 23 daily. Medicin e dicyclomine 2022-0 Yes 20mg Take 1 [facility] (BENTYL) 20 3-03 Tablet by Col lege MG tablet 15:21: mouth of 23 every 6 Medicin hours. e dicyclomine 2022-0 Yes TAKE 1 UT (Bentyl) 20 2-21 TABLET BY Hea lth MG tablet 13:19: MOUTH 4 31 TIMES DAILY NEEDED FOR ABDOMINAL CRAMP/PAIN for 30 empaglifloz 2022-0 Yes 10mg QD Take 10 mg UT in 2-21 by mouth 1 Health (Jardiance) 13:19: (one) time 10 MG 31 each day. ertuglifloz 2022-0 Yes 1 (one) UT in 2-21 time each Health (Ste[place]atro) 13:19: day at the 31 same time. gabapentin 2022-0 Yes 300mg QD Take 300 UT (Neurontin) 2-21 mg by Health 300 MG 13:19: mouth 1 capsule 31 (one) time each day. glimepiride 2022-0 Yes Take 1 UT (Amaryl) 4 2-21 tablet by Heal th MG tablet 13:19: mouth 31 twice daily with food for 90 methylPREDN methylPREDN 2022- No methylPRED ISolone 4 ISolone 4 08-08 NISolone 4 MG MG 00:00: 00:00 MG 00 :00 Azithromyci Azithromyci 2022- No QD Azithromyc n 250 MG n 250 MG 08-08 in 250 MG 00:00: 00:00 00 :00 Benzonatate Benzonatate 2022- No 1{capsu Benzonatat 200 MG 200 MG 08-06 le_as_n e 200 MG 00:00: 00:00 eeded} 00 :00 Benzonatate Benzonatate 2022- No 1{capsu Benzonatat 200 MG 200 MG 08-06 le_as_n e 200 MG 00:00: 00:00 eeded} 00 :00 Benzonatate Benzonatate 2022- No 1{capsu Benzonatat 200 MG 200 MG 08-06 le_as_n e 200 MG 00:00: 00:00 eeded} 00 :00 metFORMIN Yes 500mg Take [address] (GLUCOPHAGE 2-02 mg by [facility] ) 500 MG 11:27: mouth 2 Medica l tablet 22 (two) Center times daily with breakfast and dinner. glimepiride 0 Yes 4mg Take [address] (AMARYL) 4 -02 by mouth 2 [facility] MG tablet 11:27: (two) Medical 22 times Center daily before meals. sertraline 0 Yes 50mg Take [address] (ZOLOFT) 50 2-02 by mouth Luke s MG tablet 11:27: Daily Medical 22 (1800) . Center gabapentin 0 Yes 300mg QD Take [address] (NEURONTIN) 2-02 mg by [facility] 300 MG 11:27: mouth Medical capsule 22 every Center evening. insulin 0 Yes 86U QD Inject 86 [facility] t degludec 2-02 Units [facility] (TRESIBA 11:27: subcutaneo Med ical U-100 22 usly every Center INSULIN morning. SUBQ) dicyclomine 0 Yes 20mg Take [address] (BENTYL) 20 2-02 by mouth. [facility] mg tablet 11:27: Medical 22 [place] insulin Yes Inject [facility] lispro 08-01 subcutaneo [facility] (HumaLOG 11:27: usly. Medical KwikPen 22 [place] Insulin) 200 unit/mL (3 mL) InPn empaglifloz Yes 10mg QD Take [address] in 08-01 by mouth [facility] (JARDIANCE) 11:25: daily. Medi michele 10 mg 29 Center tablet ALPRAZolam ALPRAZolam No QD ALPRAZolam 0.5 MG 0.5 MG 1-20 0.5 MG 00:00: 00 ALPRAZolam ALPRAZolam No QD ALPRAZolam 0.5 MG 0.5 MG 1-20 0.5 MG 00:00: 00 ALPRAZolam ALPRAZolam No QD ALPRAZolam 0.5 MG 0.5 MG 1-20 0.5 MG 00:00: 00 ALPRAZolam ALPRAZolam No QD ALPRAZolam 0.5 MG 0.5 MG 1-20 0.5 MG 00:00: 00 metFORMIN 2021-06 Yes 1000mg Take 1,000 UT (Glucophage 2-29 mg by [facility] ) 500 MG 00:00: mouth in tablet 00 the morning and 1,000 mg in the evening. Take with meals. metformin 2021-06 Yes 500mg Take 500 [place] [facility] (GLUCOPHAGE 2-05 mg by [place] ) 500 MG 15:43: mouth four of tablet 47 times Medicin daily. e sertraline 2021-06 Yes 50mg Take 50 mg [facility] (ZOLOFT) 25 2-05 by mouth [facility] MG tablet 15:43: daily. of 47 Medicin e gabapentin 2021-06 Yes 300mg Take 300 [facility] (NEURONTIN) 2-05 mg by [place] 300 MG 15:43: mouth 3 of capsule 47 times Medicin daily. e famotidine 2021-06 Yes 40mg Take 40 mg [facility] (PEPCID) 40 2-05 by mouth [facility] e[facility] MG tablet 15:43: daily. of 47 Medicin e dicyclomine 2021-06 Yes 20mg Take 20 mg [facility] (BENTYL) 20 2-05 by mouth Te[facility] ege MG tablet 15:43: every 6 of 47 hours. Medicin e magnesium 2021-06 Yes 400mg Take 1 [facility] oxide 2-05 Tablet by [place] (MAG-OX) 00:00: mouth two of 400 MG 00 times Medicin tablet daily. e linaCLOtide 2021-06 Yes Take 1 [facility] (LINZESS) 2-05 capsule by [facility] ege 72 MCG CAPS 00:00: mouth of 00 every Medicin evening. e magnesium 2021-06 Yes 400mg Take 1 [facility] oxide 2-05 Tablet by [place] (MAG-OX) 00:00: mouth two of 400 MG 00 times Medicin tablet daily. e linaCLOtide 2021-06 Yes Take 1 [facility] (LINZESS) 2-05 capsule by [facility] ege 72 MCG CAPS 00:00: mouth of 00 every Medicin evening. e linaCLOtide 2021-06 Yes 1{capsu Take 1 U T (Linzess) 2-05 le} capsule by [facility] th 72 MCG 00:00: mouth 1 capsule 00 (one) time each day in the evening. atorvastati 2021-06 Yes 20mg QD Take 20 mg UT n (Lipitor) 03 by mouth 1 He alth 20 MG 00:00: (one) time tablet 00 each day. metformin 2021-06- No 2 tablet [place] [facility] (GLUCOPHAGE 08-01 with a [facility] ) 500 MG 18:14: 00:00 meal of tablet 41 :00 Medicin e Cholecalcif 2021-06- No 50ug Take 50 [facility] cee 08-01 mcg by [place] (VITAMIN D) 18:14: 00:00 mouth of 50 MCG 26 :00 daily. Medicin (1999 UT) e CAPS metformin 2021-06 Yes 500mg Take 500 [place] [facility] (GLUCOPHAGE 2-02 mg by [place] ) 500 MG 14:53: mouth four of tablet 49 times Medicin daily. e sertraline 2021-06 Yes 50mg Take 50 mg [facility] (ZOLOFT) 25 -02 by mouth [facility] e[facility] MG tablet 14:53: daily. of 49 Medicin e gabapentin 2021-06 Yes 300mg Take 300 [facility] (NEURONTIN) 2-02 mg by [place] 300 MG 14:53: mouth 3 of capsule 49 times Medicin daily. e famotidine 2021-06 Yes 40mg Take 40 mg [facility] (PEPCID) 40 2-02 by mouth [facility] e[facility] MG tablet 14:53: daily. of 49 Medicin e dicyclomine 2021-06 Yes 20mg Take 20 mg [facility] (BENTYL) 20 2-02 by mouth [facility] ege MG tablet 14:53: every 6 of 49 hours. Medicin e atorvastati 2021-06 Yes [id number] 20mg Take 1 [facility] n (LIPITOR) 2-02 Tablet by Col lege 20 MG 00:00: mouth of tablet 00 daily. Medicin e atorvastati 2021-06 Yes [id number] 20mg Take 1 [facility] n (LIPITOR) 2-02 Tablet by Col lege 20 MG 00:00: mouth of tablet 00 daily. Medicin e atorvastati 2021-06 Yes [id number] 20mg Take 1 [facility] n (LIPITOR) 2-02 Tablet by Col lege 20 MG 00:00: mouth of tablet 00 daily. Medicin e famotidine 2021-06 Yes 40mg Take 40 mg [facility] (PEPCID) 40 1-29 by mouth [facility] e[facility] MG tablet 08:51: daily. of 40 Medicin e dicyclomine 2021-06 Yes 20mg Take 20 mg [facility] (BENTYL) 20 1-29 by mouth [facility] MG tablet 08:51: every 6 of 40 hours. Medicin e metformin 2021-06 Yes 500mg Take 500 [place] [facility] (GLUCOPHAGE 1-29 mg by [place] ) 500 MG 08:51: mouth four of tablet 40 times Medicin daily. e sertraline 2021-06 Yes 50mg Take 50 mg [facility] (ZOLOFT) 25 1-29 by mouth [facility] e[facility] MG tablet 08:51: daily. of 40 Medicin e gabapentin 2021-06 Yes 300mg Take 300 [facility] (NEURONTIN) 1-29 mg by [place] 300 MG 08:51: mouth 3 of capsule [...] 1{table Xanax 1-10 t} 0.5MG 00:00: 00 meloxicam 2021-06 Yes 7.5mg QD Take 7.[address] (MOBIC) 7.5 1-08 mg by [facility] MG tablet 00:00: mouth Medical 00 daily. Center meloxicam 2021-06 Yes TAKE 1 UT (Mobic) 7.5 1-08 TABLET BY Hea lth MG tablet 00:00: MOUTH 1 00 ONCE DAILY FOR 30 DAYS Continuous Yes USE UT Blood Gluc 9-26 DIRECTED Healt h Sensor 00:00: TO CHECK (FreeStyle 00 BLOOD Yazmin 2 SUGARS FOR Sensor) 14 DAYS misc DIRECTED Insulin 0 2021- No Inject [facility] Lispro 03-22 into the College (HUMALOG 14:17: 00:00 skin. of ) 31 :00 Medicin 200 UNIT/ML e SOPN glimepiride 2021- No 4mg Take 4 mg [facility] (AMARYL) 4 03-22 by mouth. Col lege MG tablet 14:12: 00:00 of 23 :00 Medicin e Cholecalcif 0 Yes 50ug Take 50 [place] [facility] cee 9-23 mcg by [facility] (VITAMIN D) 13:29: mouth of 50 MCG 15 daily. Medicin (1999) e CAPS Cholecalcif 0 Yes 50ug Take 50 [place] [facility] cee 9-23 mcg by [facility] (VITAMIN D) 13:29: mouth of 50 MCG 15 daily. Medicin (1999) e CAPS metformin 0 Yes 500mg Take 500 [place] [facility] (GLUCOPHAGE 9-23 mg by [facility] ) 500 MG 13:17: mouth four of tablet 58 times Medicin daily. e sertraline 0 Yes 50mg Take 50 mg [facility] (ZOLOFT) 25 03-22 by mouth [facility] e[facility] MG tablet 13:17: daily. of 58 Medicin e gabapentin 0 Yes 300mg Take 300 [facility] (NEURONTIN) 03-22 mg by [place] 300 MG 13:17: mouth 3 of capsule [...] 2 sugars for e SENSOR) 14 days [facility] Insulin 0 Yes Take up to [facility] Lispro 03-22 15 units [place] (HUMALOG 00:00: as of LISSETTE) 00 directed Medicin 200 UNIT/ML prior to e SOPN meals Continuous Yes Use as [facility] Blood Gluc 9-23 directed Colle ge Sensor 00:00: to check of (FREESTYLE 00 blood Medicin YAZMIN 2 sugars for e SENSOR) 14 days [facility] Insulin Yes Take up to [facility] Lispro 9-23 15 units College (HUMALOG 00:00: as of KWIKPEN) 00 directed Medicin 200 UNIT/ML prior to e SOPN meals Continuous Yes Use as [facility] Blood Gluc 9-23 directed Colle ge Sensor 00:00: to check of (FREESTYLE 00 blood Medicin YAZMIN 2 sugars for e SENSOR) 14 days [facility] Insulin Yes Take up to [facility] Lispro 9-23 15 units College (HUMALOG 00:00: as of KWIKPEN) 00 directed Medicin 200 UNIT/ML prior to e SOPN meals Continuous Yes Use as [facility] Blood Gluc 9-23 directed Colle ge Sensor 00:00: to check of (FREESTYLE 00 blood Medicin YAZMIN 2 sugars for e SENSOR) 14 days [facility] Insulin Yes Take up to [facility] Lispro 9-23 15 units College (HUMALOG 00:00: as of KWIKPEN) 00 directed Medicin 200 UNIT/ML prior to e SOPN meals Continuous Yes Use as [facility] Blood Gluc 9-23 directed Colle ge Sensor 00:00: to check of (FREESTYLE 00 blood Medicin YAZMIN 2 sugars for e SENSOR) 14 days [facility] Insulin Yes Take up to [facility] [...] times daily with breakfast and dinner. glimepiride 2-0 Yes 4mg Take 4 mg C HI [...] Medical capsule 51 every Center evening. insulin 2-0 Yes 86U QD Inject 86 [facility] [...] 51 times Center daily before meals. empaglifloz 2-0 Yes 10mg QD Take 10 mg [facility] [...] times daily with breakfast and dinner. glimepiride 0 Yes 4mg Take [address] (AMARYL) 4 9-12 by mouth 2 [facility] MG tablet 08:25: (two) Medical 51 times Center daily before meals. empaglifloz 0 Yes 10mg QD Take [address] in 912 by mouth [facility] (JARDIANCE) 08:25: daily. Medi [...] e dicyclomine Yes 20mg Take 20 mg [facility] (BENTYL) 20 8-30 by mouth [facility] MG tablet 11:52: every 6 of 46 hours. Medicin e Insulin Yes Inject [facility] Lispro 8-30 into the College (HUMALOG 11:52: skin. of KWIKPEN) 46 Medicin 200 UNIT/ML e SOPN metformin Yes 2 tablet [facility] (GLUCOPHAGE 8-30 with a Colleg e ) 500 MG 11:52: meal of tablet 46 Medicin e metformin 0 Yes 500mg Take 500 [place] [facility] (GLUCOPHAGE 8-30 mg by [place] ) 500 MG 11:34: mouth four of tablet 04 times Medicin daily. e sertraline 0 Yes 50mg Take 50 mg [facility] (ZOLOFT) 25 8-30 by mouth [facility] MG tablet 11:34: daily. of 04 Medicin e gabapentin Yes 300mg Take 300 [facility] (NEURONTIN) 8-30 mg by [place] 300 MG 11:34: mouth 3 of capsule 04 times Medicin daily. e Cholecalcif Yes 50ug Take 50 [place] [facility] cee 8-30 mcg by [place] (VITAMIN D) 11:34: mouth of 50 MCG 04 daily. Medicin (1999) e CAPS ALPRAZolam ALPRAZolam No ALPRAZolam 0.5 MG 0.5 [...] MG 8-29 0.5 MG 00:00: 00 ALPRAZolam Yes 1{tbl} Take [address] (XANAX) 0.5 8-29 tablet by [facility] MG tablet 00:00: mouth Medical 00 daily as Center needed. alprazolam Yes [facility] (XANAX) 0.5 8-29 College MG tablet 00:00: of 00 Medicin e alprazolam Yes TAKE 1 [facility] (XANAX) 0.5 8-29 TABLET BY Col lege MG tablet 00:00: MOUTH ONCE of 00 DAILY Medicin NEEDED FOR e ANXIETY alprazolam Yes [facility] (XANAX) 0.5 8-29 College MG tablet 00:00: of 00 Medicin e alprazolam Yes [facility] (XANAX) 0.5 8-29 College MG tablet 00:00: of 00 Medicin e alprazolam Yes TAKE 1 [facility] (XANAX) 0.5 8-29 TABLET BY Col lege MG tablet 00:00: MOUTH ONCE of 00 DAILY Medicin NEEDED FOR e ANXIETY alprazolam Yes [facility] (XANAX) 0.5 8-29 College MG tablet 00:00: of 00 Medicin e alprazolam Yes [facility] (XANAX) 0.5 8-29 College MG tablet 00:00: of 00 Medicin e alprazolam Yes [facility] (XANAX) 0.5 8-29 College MG tablet 00:00: of 00 Medicin e alprazolam Yes TAKE 1 [facility] (XANAX) 0.5 8-29 TABLET BY Col lege MG tablet 00:00: MOUTH ONCE of 00 DAILY Medicin NEEDED FOR e ANXIETY alprazolam 2021- No TAKE 1 [facility] (XANAX) 0.5 8-29 12-02 TABLET BY Co llege MG tablet 00:00: 00:00 MOUTH ONCE o f 00 :00 DAILY Medicin NEEDED FOR e ANXIETY Pantoprazol Pantoprazol No 1{table QD Pantoprazo e Sodium 40 e Sodium 40 8-08 t} le Sodium MG MG 00:00: 40 MG 00 Pantoprazol Pantoprazol 0 No 1{table QD Pantoprazo e Sodium 40 e Sodium 40 8-08 t} le Sodium MG MG 00:00: 40 MG 00 Pantoprazol Pantoprazol 0 No 1{table QD Pantoprazo e Sodium 40 [...] DAILY AT Medicin BEDTIME e NEEDED trazodone Yes TAKE 1 [facility] (DESYREL) 8-03 TABLET BY Colle ge 50 MG 00:00: MOUTH ONCE of tablet 00 DAILY AT Medicin BEDTIME e NEEDED trazodone 2-0 Yes TAKE 1 [facility] (DESYREL) 8-03 TABLET BY Colle ge 50 MG 00:00: MOUTH ONCE of tablet 00 DAILY AT Medicin BEDTIME e NEEDED trazodone 2-0 Yes TAKE 1 [facility] (DESYREL) 8-03 TABLET BY Colle ge 50 MG 00:00: MOUTH ONCE of tablet 00 DAILY AT Medicin BEDTIME e NEEDED trazodone 2-0 Yes TAKE 1 [facility] (DESYREL) 8-03 TABLET BY Colle ge 50 MG 00:00: MOUTH ONCE of tablet 00 DAILY AT Medicin BEDTIME e NEEDED trazodone 2021-0 Yes TAKE 1 [facility] (DESYREL) 8-03 TABLET BY Colle ge 50 MG 00:00: MOUTH ONCE of tablet 00 DAILY AT Medicin BEDTIME e NEEDED traZODone 2-0 Yes 1 (one) UT (Desyrel) 8-03 time each Healt h 50 MG 00:00: day at the tablet 00 same time. ALPRAZolam ALPRAZolam 2021-0 No ALPRAZolam 0.5 MG 0.5 MG 7-19 0.5 MG 00:00: 00 ALPRAZolam ALPRAZolam 2021-0 No ALPRAZolam 0.5 MG 0.5 MG 7-19 0.5 MG 00:00: 00 ALPRAZolam ALPRAZolam 2-0 No ALPRAZolam 0.5 MG 0.5 MG 7-19 0.5 MG 00:00: 00 GOLYTELY 2-0 Yes TAKE [facility] 236 g 7-08 4000ML BY College suspension 00:00: MOUTH of 00 DIRECTED Medicin ONE e DOSE GOLYTELY 2021-0 Yes TAKE [facility] 236 g 7-08 4000ML BY College suspension 00:00: MOUTH of 00 DIRECTED Medicin ONE e DOSE GOLYTELY 2021-0 Yes TAKE [facility] 236 g 7-08 4000ML BY College suspension 00:00: MOUTH of 00 DIRECTED Medicin ONE e DOSE GOLYTELY 2-0 2- No TAKE [facility] 236 g 7-08 12-02 4000ML BY College suspension 00:00: 00:00 MOUTH of 00 :00 DIRECTED Medicin ONE e DOSE TRESIBA Yes INJECT 84 [facility] FLEXTOUCH 7-07 UNITS [place] 200 UNIT/ML 00:00: SUBCUTANEO of SOPN 00 USLY ONCE Medicin DAILY, e INCREASE BY 2 UNITS EVERY 3 DAYS UNTIL FASTING BLOOD GLUCOSE LESS THAN 100. MAX DOSE 90 UNITS ONCE A DAY TRESIBA Yes INJECT 84 [facility] FLEXTOUCH 7 UNITS [place] 200 UNIT/ML 00:00: SUBCUTANEO of SOPN 00 USLY ONCE Medicin DAILY, e INCREASE BY 2 UNITS EVERY 3 DAYS UNTIL FASTING BLOOD GLUCOSE LESS THAN 100. MAX DOSE 90 UNITS ONCE A DAY TRESIBA Yes INJECT 84 [facility] FLEXTOUCH 7 UNITS [place] 200 UNIT/ML 00:00: SUBCUTANEO of SOPN 00 USLY ONCE Medicin DAILY, e INCREASE BY 2 UNITS EVERY 3 DAYS UNTIL FASTING BLOOD GLUCOSE LESS THAN 100. MAX DOSE 90 UNITS ONCE A DAY TRESIBA Yes INJECT 84 [facility] FLEXTOUCH 7 UNITS [place] 200 UNIT/ML 00:00: SUBCUTANEO of SOPN 00 USLY ONCE Medicin DAILY, e INCREASE BY 2 UNITS EVERY 3 DAYS UNTIL FASTING BLOOD GLUCOSE LESS THAN 100. MAX DOSE 90 UNITS ONCE A DAY SIBA Yes INJECT 84 [facility] FLEXTOUCH 7 UNITS [place] 200 UNIT/ML 00:00: SUBCUTANEO of SOPN 00 USLY ONCE Medicin DAILY, e INCREASE BY 2 UNITS EVERY 3 DAYS UNTIL FASTING BLOOD GLUCOSE LESS THAN 100. MAX DOSE 90 UNITS ONCE A DAY SIBA Yes INJECT 84 [facility] FLEXTOUCH 01-03 UNITS [place] 200 UNIT/ML 00:00: SUBCUTANEO of SOPN 00 USLY ONCE Medicin DAILY, e INCREASE BY 2 UNITS EVERY 3 DAYS UNTIL FASTING BLOOD GLUCOSE LESS THAN 100. MAX DOSE 90 UNITS ONCE A DAY insulin Yes 1 (one) UT degludec - time each Health ([place] 00:00: day at the [facility]) 00 same time. 200 UNIT/ML injection sertraline Yes TAKE 2 [facility] (ZOLOFT) [...] MG 00:00: 00 ALPRAZolam ALPRAZolam 0 No QD ALPRAZolam 0.5 MG 0.5 MG 6-01 0.5 MG 00:00: 00 ALPRAZolam ALPRAZolam 0 No ALPRAZolam 0.5 MG 0.5 MG 4-26 0.5 MG 00:00: 00 ALPRAZolam ALPRAZolam 0 No ALPRAZolam 0.5 MG 0.5 MG 4-26 0.5 MG 00:00: 00 ALPRAZolam ALPRAZolam 0 No ALPRAZolam 0.5 MG 0.5 MG 4-26 0.5 MG 00:00: 00 ALPRAZolam ALPRAZolam 0 [...] UNIT/ML 00:00: 200 00 UNIT/ML ALPRAZolam ALPRAZolam 0 No ALPRAZolam 0.5 MG 0.5 MG 3-23 0.5 MG 00:00: 00 ALPRAZolam ALPRAZolam 2021-0 No ALPRAZolam 0.5 MG 0.5 MG 3-23 0.5 MG 00:00: 00 ALPRAZolam ALPRAZolam 2021-0 No ALPRAZolam 0.5 MG 0.5 MG 3-23 0.5 MG 00:00: 00 omeprazole 2021-0 Yes 20mg QD Take 20 mg U T (PriLOSEC) 3-01 by mouth 1 Hea lth [address] 00:00: (one) time capsule 00 each day. Zofran 4 MG Zofran 4 MG 2021-0 [...] MG 2-16 0.5 MG 00:00: 00 ALPRAZolam 2021-0 Yes 1 (one) UT (Xanax) 0.5 2-16 time each [facility] MG tablet 00:00: day at the 00 same time. predniSONE predniSONE 2020-06- No QD predniSONE 10 [...] Yazmin 2 Yazmin 2 0-07 Yazmin 2 [place]: [place] - 00 Neomycin-Po Neomycin-Po 2020-06 No 4{drops BID Neomycin-P lymyxin-HC lymyxin-HC 0-07 _into_a olymyxin-H 3.5-01198-3 3.5-54012-8 00:00: ffected C 00 _ear} 3.5-51160- 1 FreeStyle FreeStyle 2020-06 No FreeStyle Yazmin 2 Yazmin 2 0-07 Yazmin 2 [place] - 00:00: [place] - 00 FreeStyle FreeStyle 2020-06 No FreeStyle Yazmin 14 Yazmin 14 0-07 Yazmin 14 Day Sensor Day Sensor 00:00: Day Sensor - - 00 - Neomycin-Po Neomycin-Po 2020-06 No 4{drops BID Neomycin-P lymyxin-HC lymyxin-HC 0-07 _into_a olymyxin-H 3.5-23189-3 3.5-06701-3 00:00: ffected C 00 _ear} 3.5-01443- 1 Neomycin-Po Neomycin-Po 2020-06 No 4{drops BID Neomycin-P lymyxin-HC lymyxin-HC 0-07 _into_a olymyxin-H 3.5-46065-2 3.5-02514-6 00:00: ffected C 00 _ear} 3.5-62251- 1 FreeStyle FreeStyle 2020-06 No FreeStyle Yazmin 14 Yazmin 14 0-07 Yazmin 14 Day Sensor Day Sensor 00:00: Day Sensor - - 00 - FreeStyle FreeStyle 2021-1 No FreeStyle Yazmin 2 Yazmin 2 0-07 Yaz[facility] 2 [place] - 00:00: [place] - 00 FreeStyle FreeStyle 2020-06 No FreeStyle Yazmin 14 Yazmin 14 0-07 Yazmin 14 Day Sensor Day Sensor 00:00: Day Sensor - - 00 - Neomycin-Po Neomycin-Po 2020-06 No 4{drops BID Neomycin-P lymyxin-HC lymyxin-HC 0-07 _into_a olymyxin-H 3.5-64751-4 3.5-97004-7 00:00: ffected C 00 _ear} 3.5-32011- 1 FreeStyle FreeStyle 2020-06 No FreeStyle Yazmin 2 Yazmin 2 0-07 Yazmin 2 [place] 00:[place]: [place] - 00 FreeStyle FreeStyle 2020-06 No FreeStyle Yazmin 14 Yazmin 14 0-07 Yazmin 14 Day Sensor Day Sensor 00:00: Day Sensor - - 00 - Neomycin-Po Neomycin-Po 2020-06 No 4{drops BID Neomycin-P lymyxin-HC lymyxin-HC 0-07 _into_a olymyxin-H 3.5-43215-0 3.5-97118-2 00:00: ffected C 00 _ear} 3.5-38081- 1 FreeStyle FreeStyle 2020-06 No FreeStyle Yazmin 2 Yazmin 2 0-07 Yazmin 2 [place] 00:[place]: [place] - 00 FreeStyle FreeStyle 2020-06 No FreeStyle Yazmin 14 Yazmin 14 0-07 Yazmin 14 Day Sensor Day Sensor 00:00: Day Sensor - - 00 - Neomycin-Po Neomycin-Po 2020-06 No 4{drops BID Neomycin-P lymyxin-HC lymyxin-HC 0-07 _into_a olymyxin-H 3.5-28983-7 3.5-56134-5 00:00: ffected C 00 _ear} 3.5-52427- 1 FreeStyle FreeStyle 2020-06 No FreeStyle Yazmin 2 Yazmin 2 0-07 Yazmin 2 [place] - 00:[place]: [place] - 00 FreeStyle FreeStyle 2020-06 No FreeStyle Yazmin 14 Yazmin 14 0-07 Yazmin 14 Day Sensor Day Sensor 00:00: Day Sensor - - 00 - FreeStyle FreeStyle 2020-06 No FreeStyle Yazmin 2 Yazmin 2 0-07 Yazmin 2 [place] 00:00: [place] - 00 Neomycin-Po Neomycin-Po 2020-06 No 4{drops BID Neomycin-P lymyxin-HC lymyxin-HC 0-07 _into_a olymyxin-H 3.5-70824-0 3.5-80513-1 00:00: ffected C 00 _ear} 3.5-83741- 1 FreeStyle FreeStyle 2020-06 No FreeStyle Yazmin 2 Yazmin 2 0-07 Yazmin 2 [place] - 00:00: [place] - 00 FreeStyle FreeStyle 2020-06 No FreeStyle Yazmin 14 Yazmin 14 0-07 Yazmin 14 Day Sensor Day Sensor 00:00: Day Sensor - - 00 - Neomycin-Po Neomycin-Po 2020-06 No 4{drops BID Neomycin-P lymyxin-HC lymyxin-HC 0-07 _into_a olymyxin-H 3.5-43762-6 3.5-63485-3 00:00: ffected C 00 _ear} 3.5-18061- 1 FreeStyle FreeStyle 2020-06 No FreeStyle Yazmin 2 Yazmin 2 0-07 Yazmin 2 [place] - 00:00: [place] - 00 FreeStyle FreeStyle 2020-06 No FreeStyle Yazmin 14 Yazmin 14 0-07 Yazmin 14 Day Sensor Day Sensor 00:00: Day Sensor - - 00 - Neomycin-Po Neomycin-Po 2020-06 No 4{drops BID Neomycin-P lymyxin-HC lymyxin-HC 0-07 _into_a olymyxin-H 3.5-67748-0 3.5-07481-7 00:00: ffected C 00 _ear} 3.5-57297- 1 FreeStyle FreeStyle 2020-06 No FreeStyle Yazmin 14 Yazmin 14 0-07 Yazmin 14 Day Sensor Day Sensor 00:00: Day Sensor - - 00 - FreeStyle FreeStyle 2020-06 No FreeStyle Yazmin 2 Yazmin 2 0-07 Yazmin 2 [place] - 00:00: [place] - 00 Neomycin-Po Neomycin-Po 2020-06 No 4{drops BID Neomycin-P lymyxin-HC lymyxin-HC 0-07 _into_a olymyxin-H 3.5-26859-5 3.5-55033-2 00:00: ffected C 00 _ear} 3.5-93869- 1 FreeStyle FreeStyle 2020-06 No FreeStyle Yazmin 14 Yazmin 14 0-07 Yazmin 14 Day Sensor Day Sensor 00:00: Day Sensor - - 00 - FreeStyle FreeStyle 2020-06 No FreeStyle Yazmin 2 Yazmin 2 0-07 Yazmin 2 [place] - 00:00: [place] - 00 Neomycin-Po Neomycin-Po 2020-06 No 4{drops BID Neomycin-P lymyxin-HC lymyxin-HC 0-07 _into_a olymyxin-H 3.5-16722-7 3.5-67118-5 00:00: ffected C 00 _ear} 3.5-67467- 1 Neomycin-Po Neomycin-Po 2020-06 No 4{drops BID Neomycin-P lymyxin-HC lymyxin-HC 0-07 _into_a olymyxin-H 3.5-66820-4 3.5-82790-1 00:00: ffected C 00 _ear} 3.5-70193- 1 FreeStyle FreeStyle 2020-06 No FreeStyle Yazmin 2 Yazmin 2 0-07 Yazmin 2 [place] - 00:00: [place] - 00 FreeStyle FreeStyle 2020-06 No FreeStyle Yazmin 14 Yazmin 14 0-07 Yazmin 14 Day Sensor Day Sensor 00:00: Day Sensor - - 00 - Neomycin-Po Neomycin-Po 2020-06 No 4{drops BID Neomycin-P lymyxin-HC lymyxin-HC 0-07 _into_a olymyxin-H 3.5-82986-1 3.5-68002-5 00:00: ffected C 00 _ear} 3.5-40896- 1 FreeStyle FreeStyle 2020-06 No FreeStyle Yazmin 2 Yazmin 2 0-07 Yazmin 2 [place] - 00:00: [place] - 00 FreeStyle FreeStyle 2020-06 No FreeStyle Yazmin 14 Yazmin 14 0-07 Yazmin 14 Day Sensor Day Sensor 00:00: Day Sensor - - 00 - Neomycin-Po Neomycin-Po 2020-06 No 4{drops BID Neomycin-P lymyxin-HC lymyxin-HC 0-07 _into_a olymyxin-H 3.550018-8 3.-1 00:00: ffected C 00 _ear} 3.5- 1 FreeStyle FreeStyle 2020-06 No FreeStyle Yazmin 2 Yazmin 2 0-07 Yazmin 2 [place] - 00:00: [place] - 00 FreeStyle FreeStyle 2020-06 No FreeStyle Yazmin 14 Yazmin 14 0-07 Yazmin 14 Day Sensor Day Sensor 00:00: Day Sensor - - 00 - Neomycin-Po Neomycin-Po 2020-06 No 4{drops BID Neomycin-P lymyxin-HC lymyxin-HC 0-07 _into_a olymyxin-H 3.519149-4 3.-1 00:00: ffected C 00 _ear} 3. FreeStyle FreeStyle 2020-06 No FreeStyle Yazmin 2 Yazmin 2 0-07 Yazmin 2 [place] - 00:[place]: [place] - 00 FreeStyle FreeStyle 2020-06 No FreeStyle Yazmin 14 Yazmin 14 0-07 Yazmin 14 Day Sensor Day Sensor 00:00: Day Sensor - - 00 - neomycin-po 2020-06 Yes Q12H every 12 UT lymyxin-hyd 0-07 (twelve) [facility] rocortisone 00:00: hours. (Cortispori 00 n) 3.509529-7 otic suspension Sertraline Sertraline 2018-06 Yes Na [facility] 2 tablets [facility] HCl HCl 2-24 [facility] 00:00: - [facility] Fluticasone Fluticasone 2018-06 No 1{spray QD [...] 10:01: daily. Medi michele 10 mg 13 [place] tablet sertraline 2016-06 Yes 50mg QD Take [address] ([place]) 50 1-10 by mouth [facility] 10:01[facility] [address] empaglifloz 2016-06 Yes 10mg QD Take [address] [facility] [address] [facility]-10 [facility] ([facility] 10:01: daily. [facility]i mic[facility] 10 mg 13 Center tablet sertraline 2016-06 Yes 50mg QD Take [address] ([place]) 50 1-10 by mouth [facility] MG tablet 10:01: [facility]. [facility] [address] glimepiride 2016-06 Yes 4mg Take 4 [...] HCl HCl with a [facility] meal - [facility] Dicyclomine Dicyclomine No Dicyclomin HCl 20 [...] MG HCl 50 MG traZODone traZODone No traZODone HCl 50 MG HCl 50 MG HCl 50 MG Tresiba Tresiba No QD Tresiba FlexTouch FlexTouch FlexTouch 200 UNIT/ML 200 UNIT/ML 200 UNIT/ML Gabapentin Gabapentin No 1{capsu TID Gabapentin 300 MG 300 MG le} 300 MG NovoFine NovoFine No QD NovoFine Plus 32G X Plus 32G X Plus 32G X 4 MM 4 MM 4 MM Glimepiride Glimepiride No Glimepirid 4 MG 4 MG e 4 MG Zofran 4 MG Zofran 4 MG No 1{table Zofran 4 t} MG metFORMIN metFORMIN No 2{table BID metFORMIN HCl 500 MG HCl 500 MG t_with_ HCl 500 MG a_meal} Sertraline Sertraline No 2{table QD Sertraline HCl 100 MG HCl 100 MG ts} HCl 100 MG HumaLOG HumaLOG No HumaLOG Meloxicam Meloxicam No 1{table QD Meloxicam 7.5 MG 7.5 MG t} 7.5 MG Famotidine Famotidine No 1{table BID Famotidine 40 MG 40 MG t_at_be 40 MG dtime_a s_neede d} Sertraline Sertraline No Sertraline HCl 100 MG HCl 100 MG HCl 100 MG Dicyclomine Dicyclomine No Dicyclomin HCl 20 MG HCl 20 MG e HCl 20 MG traZODone traZODone No [...] X 4 MM 4 MM 4 MM Glimepiride Glimepiride No Glimepirid 4 MG 4 MG e 4 MG Zofran 4 MG Zofran 4 MG No 1{table Zofran 4 t} MG metFORMIN metFORMIN No 2{table BID metFORMIN HCl 500 MG HCl 500 MG t_with_ HCl 500 MG a_meal} Sertraline Sertraline No 2{table QD Sertraline HCl 100 MG HCl 100 MG ts} HCl 100 MG HumaLOG HumaLOG No HumaLOG Meloxicam Meloxicam No 1{table QD Meloxicam 7.5 MG 7.5 MG t} 7.5 MG Famotidine Famotidine No 1{table BID Famotidine 40 MG 40 MG t_at_be 40 MG dtime_a s_neede d} Sertraline Sertraline No Sertraline HCl 100 MG HCl 100 MG HCl 100 MG Dicyclomine Dicyclomine No Dicyclomin HCl 20 MG HCl 20 MG e HCl 20 MG traZODone traZODone No [...] 300 MG 300 MG le} 300 MG Glimepiride Glimepiride No Glimepirid 4 MG 4 MG e 4 MG Zofran 4 MG Zofran 4 MG No 1{table Zofran 4 t} MG metFORMIN metFORMIN No 2{table BID metFORMIN HCl 500 MG HCl 500 MG t_with_ HCl 500 MG a_meal} HumaLOG HumaLOG No HumaLOG Meloxicam Meloxicam No 1{table QD Meloxicam 7.5 MG 7.5 MG t} 7.5 MG NovoFine NovoFine No QD NovoFine Plus [...] Yazmin 14 Yazmin 14 Yazmin 14 Day [place] Day [place] - - - metFORMIN metFORMIN No 2{table [...] Yazmin 14 Yazmin 14 Yazmin 14 Day [place] Day [place] Day [place] - - - Famotidine Famotidine No 1{table [...] Yazmin 14 Yazmin 14 Yazmin 14 Day [place] Day [place] Day [place] - - - traZODone traZODone No 1{table [...] Yazmin 14 Yazmin 14 Yazmin 14 Day [place] Day [place] Day [place] - - - Dicyclomine Dicyclomine No QID [...] Yazmin 14 Yazmin 14 Yazmin 14 Day [place] Day [place] Day [place] - - - Dicyclomine Dicyclomine No QID [...] Yazmin 14 Yazmin 14 Yazmin 14 Day [place] Day [place] Day [place] - - - Dicyclomine Dicyclomine No QID [...] Yazmin 14 Yazmin 14 Yazmin 14 Day [place] Day [place] Day [place] - - - traZODone traZODone No traZODone [...] Yazmin 14 Yazmin 14 Yazmin 14 Day [place] Day [place] Day [place] - - - Famotidine Famotidine No 1{table [...] Yazmin 14 Yazmin 14 Yazmin 14 Day [place] Day [place] Day [place] - - - FreeStyle FreeStyle No FreeStyle [...] Yazmin 14 Yazmin 14 Yazmin 14 Day [place] Day [place] Day [place] - - - Famotidine Famotidine No 1{table [...] Yazmin 14 Yazmin 14 Yazmin 14 Day [place] Day [place] Day [place] - - - Tobramycin Tobramycin No 1{drop_ [...] Yazmin 14 Yazmin 14 Yazmin 14 Day [place] Day [place] Day [place] - - - Omeprazole Omeprazole No 1{capsu [...] Yazmin 14 Yazmin 14 Yazmin 14 Day [place] Day [place] Day [place] - - - Omeprazole Omeprazole No 1{capsu [...] Yazmin 14 Yazmin 14 Yazmin 14 Day [place] Day [place] Day [place] - - - Omeprazole Omeprazole No 1{capsu [...] Yazmin 14 Yazmin 14 Yazmin 14 Day [place] Day [place] Day [place] - - - Omeprazole Omeprazole No 1{capsu QD Omeprazole 40 MG 40 MG le} 40 MG traZODone traZODone No traZODone HCl 50 MG HCl 50 MG HCl 50 MG traZODone traZODone No 1{table QD traZODone HCl 50 MG HCl 50 MG t_at_be HCl 50 MG dtime_a s_neede d} FreeStyle FreeStyle No FreeStyle Yazmin 14 Yzamin 14 Yazmin 14 Day Sensor Day Sensor [...] single dose 2020-06-01 [facility]00 [facility] Afluria single dose Afluria single dose 2020-06-01 [facility]pleted [facility] 09:27:00 [facility] Afluria single dose Afluria single dose 2020-06-01 [facility]pleted [facility] 09:27:00 [facility] Afluria single dose Afluria single dose 2020-06-01 [facility]pleted [facility] 09:27:00 [facility] Afluria single dose Afluria single dose 2020-06-01 [facility]pleted [facility] 09:27:00 [facility] Afluria single dose Afluria single dose 2020-06-01 [facility]pleted [facility] 09:27:00 [facility] Afluria single dose Afluria single dose 2020-06-01 [facility]pleted [facility] 09:27:00 - [facility] Afluria single dose Afluria single dose 2020-06-01 Completed [facility] 09:27:00 [facility] Afluria single dose Afluria single dose 2020-06-01 [facility]pleted [facility] 09:27:00 [facility] Afluria single dose Afluria single dose 2020-06-01 [facility]pleted [facility] 09:27:00 - [facility] Afluria single dose Afluria single dose 2020-06-01 [facility]pleted [facility] 09:27:00 - [facility] Afluria single dose Afluria single dose 2020-06-01 [facility]pleted [facility] 09:27:00 [facility] Afluria single dose Afluria single dose 2020-06-01 [facility]pleted [facility] 09:27:00 - [facility] Afluria single dose Afluria single dose 2020-06-01 [facility]pleted [facility] 09:27:00 - [facility] Afluria single dose Afluria single dose 2020-06-01 [facility]pleted [facility] 09:27:00 - [facility] Afluria single dose Afluria single dose 2020-06-01 [facility]pleted [facility] 09:27:00 - [facility] Afluria single dose Afluria single dose 2020-06-01 [facility]pleted [facility] 09:27:00 [facility] Afluria single dose Afluria single dose 2020-06-01 [facility]pleted [facility] 09:27:00 [facility] Afluria single dose Afluria single dose 2020-06-01 [facility]pleted [facility] 09:27:00 - [facility] Afluria single dose Afluria single dose 2020-06-01 [facility]pleted [facility] 09:27:00 [facility] Afluria single dose Afluria single dose 2020-06-01 [facility]pleted [facility] 09:27:00 [facility] Afluria single dose Afluria single dose 2020-06-01 [facility]pleted [facility] 09:27:00 [facility] Afluria single dose Afluria single dose 2020-06-01 [facility]pleted [facility] 09:27:00 - [facility] Afluria single dose Afluria single dose 2020-06-01 [facility]pleted [facility] 09:27:00 [facility] Afluria single dose Afluria single dose 2020-06-01 [facility]pleted [facility] 09:27:00 [facility] Afluria single dose Afluria single dose 2020-06-01 [facility]pleted [facility] 09:27:00 [facility] Afluria single dose Afluria single dose 2020-06-01 [facility]pleted [facility] 09:27:00 [facility] Afluria single dose Afluria single dose 2020-06-01 [facility]pleted [facility] 09:27:00 [facility] Afluria single dose Afluria single dose 2020-06-01 [facility]pleted [facility] 09:27:00 [facility] Afluria single dose Afluria single dose 2020-06-01 [facility]pleted [facility] 09:27:00 [facility] Afluria single dose Afluria single dose 2020-06-01 [facility]pleted [facility] 09:27:00 [facility] Afluria single dose Afluria single dose 2020-06-01 [facility]pleted [facility] 09:27:00 [facility] Afluria single dose Afluria single dose 2020-06-01 [facility]pleted [facility] 09:27:00 [facility] Afluria single dose Afluria single dose 2020-06-01 [facility]pleted [facility] 09:27:00 [facility] Afluria single dose Afluria single dose 2020-06-01 [facility]pleted [facility] 09:27:00 [facility] Afluria single dose Afluria single dose 2020-06-01 [facility]pleted [facility] 09:27:00 [facility] Afluria single dose Afluria single dose 2020-06-01 [facility]pleted [facility] 09:27:00 [facility] Afluria single dose Afluria single dose 2020-06-01 [facility]pleted [facility] 09:27:00 [facility] Afluria single dose Afluria single dose 2020-06-01 Completed [facility] 09:27:00 [facility] Flucelvax - Flucelvax - 2019-03-30 Completed [facility] multidose vial multidose vial 15:35:00 [facility] Flucelvax - Flucelvax - 2019-03-30 Completed [facility] multidose vial multidose vial 15:35:00 [facility] Flucelvax - Flucelvax - 2019-03-30 Completed [facility] multidose vial multidose vial 15:35:00 - [facility] Flucelvax - Flucelvax - 2019-03-30 Completed [facility] multidose vial multidose vial 15:35:00 - [facility] Flucelvax - Flucelvax - 2019-03-30 Completed [facility] multidose vial multidose vial 15:35:00 - [facility] Flucelvax - Flucelvax - 2019-03-30 Completed [facility] multidose vial multidose vial 15:35:00 - [facility] Flucelvax - Flucelvax - 2019-03-30 Completed [facility] multidose vial multidose vial 15:35:00 - [facility] Flucelvax - Flucelvax - 2019-03-30 Completed [facility] multidose vial multidose vial 15:35:00 - [facility] Flucelvax - Flucelvax - 2019-03-30 Completed [facility] multidose vial multidose vial 15:35:00 - [facility] Flucelvax - Flucelvax - 2019-03-30 Completed [facility] multidose vial multidose vial 15:35:00 - [facility] Flucelvax - Flucelvax - 2019-03-30 Completed [facility] multidose vial multidose vial 15:35:00 - [facility] Flucelvax - Flucelvax - 2019-03-30 Completed [facility] multidose vial multidose vial 15:35:00 - [facility] Flucelvax - Flucelvax - 2019-03-30 Completed [facility] multidose vial multidose vial 15:35:00 - [facility] Flucelvax - Flucelvax - 2019-03-30 Completed [facility] multidose vial multidose vial 15:35:00 - [facility] Flucelvax - Flucelvax - 2019-03-30 Completed [facility] multidose vial multidose vial 15:35:00 - [facility] Flucelvax - Flucelvax - 2019-03-30 Completed [facility] multidose vial multidose vial 15:35:00 - [facility] Flucelvax - Flucelvax - 2019-03-30 Completed [facility] multidose vial multidose vial 15:35:00 - [facility] Flucelvax - Flucelvax - 2019-03-30 Completed [facility] multidose vial multidose vial 15:35:00 - [facility] Flucelvax - Flucelvax - 2019-03-30 Completed [facility] multidose vial multidose vial 15:35:00 - [facility] Flucelvax - Flucelvax - 2019-03-30 Completed [facility] multidose vial multidose vial 15:35:00 - [facility] Flucelvax - Flucelvax - 2019-03-30 Completed [facility] multidose vial multidose vial 15:35:00 - [facility] Flucelvax - Flucelvax - 2019-03-30 Completed [facility] multidose vial multidose vial 15:35:00 - [facility] Flucelvax - Flucelvax - 2019-03-30 Completed [facility] multidose vial multidose vial 15:35:00 - [facility] Flucelvax - Flucelvax - 2019-03-30 Completed [facility] multidose vial multidose vial 15:35:00 - [facility] Flucelvax - Flucelvax - 2019-03-30 Completed [facility] multidose vial multidose vial 15:35:00 - [facility] Flucelvax - Flucelvax - 2019-03-30 Completed [facility] multidose vial multidose vial 15:35:00 - [facility] Flucelvax - Flucelvax - 2019-03-30 Completed [facility] multidose vial multidose vial 15:35:00 - [facility] Flucelvax - Flucelvax - 2019-03-30 Completed [facility] multidose vial multidose vial 15:35:00 - [facility] Flucelvax - Flucelvax - 2019-03-30 Completed [facility] multidose vial multidose vial 15:35:00 - [facility] Flucelvax - Flucelvax - 2019-03-30 Completed [facility] multidose vial multidose vial 15:35:00 - [facility] Flucelvax - Flucelvax - 2019-03-30 Completed [facility] multidose vial multidose vial 15:35:00 - [facility] Flucelvax - Flucelvax - 2019-03-30 Completed [facility] multidose vial multidose vial 15:35:00 - [facility] Flucelvax - Flucelvax - 2019-03-30 Completed [facility] multidose vial multidose vial 15:35:00 - [facility] Flucelvax - Flucelvax - 2019-03-30 Completed [facility] multidose vial multidose vial 15:35:00 - [facility] Flucelvax - Flucelvax - 2019-03-30 Completed [facility] multidose vial multidose vial 15:35:00 - [facility] Flucelvax - Flucelvax - 2019-03-30 Completed [facility] multidose vial multidose vial 15:35:00 - [facility] Flucelvax - Flucelvax - 2019-03-30 Completed [facility] multidose vial multidose vial 15:35:00 - [facility] Flucelvax - Flucelvax - 2019-03-30 Completed [facility] multidose vial multidose vial 15:35:00 - [facility] Flucelvax - Flucelvax - 2019-03-30 Completed [facility] multidose vial multidose vial 15:35:00 - [facility] Flucelvax - Flucelvax - 2019-03-30 Completed [facility] multidose vial multidose vial 00:00:00 - [facility] Vital Signs Vital Name Observation Time Observation Value Comments Source Systolic blood 2022-08-30 21:21:00 126 mm[Hg] [facility] Diastolic blood 2022-08-30 21:21:00 54 mm[Hg] [employer] [facility] Heart rate 2022-08-30 21:21:00 88 /min [facility] Body height 2022-08-30 21:21:00 162.6 cm [facility] Body weight 2022-08-30 21:21:00 73.483 kg [facility] BMI 2022-08-30 21:21:00 27.81 kg/m2 [facility] height 2022-08-06 15:20:00 64 [in_i] [facility] weight 2022-08-06 15:20:00 162 [lb_av] [facility] temperature 2022-08-06 15:20:00 97.8 [degF] [facility] bmi 2022-08-06 15:20:00 27.8 kg/m2 [facility] Systolic blood 2022-06-03 21:41:00 106 mm[Hg] [facility] pressure Medicine Diastolic blood 2022-06-03 21:41:00 58 mm[Hg] [facility] Medicine Body height 2022-06-03 21:41:00 162.6 cm [facility] Body weight 2022-06-03 21:41:00 72.576 kg [facility] BMI 2022-06-03 21:41:00 27.46 kg/m2 [facility] Systolic blood 2022-05-31 21:08:00 114 mm[Hg] [facility] pressure Medicine Diastolic blood 2022-05-31 21:08:00 65 mm[Hg] [facility] pressure Medicine Heart rate 2022-05-31 21:08:00 89 /min [facility] Body height 2022-05-31 21:08:00 162.6 cm [facility] Body weight 2022-05-31 21:08:00 71.668 kg [facility] BMI 2022-05-31 21:08:00 27.12 kg/m2 [facility] Systolic blood 2022-05-28 14:59:00 111 mm[Hg] [facility] Medicine Diastolic blood 2022-05-28 14:59:00 68 mm[Hg] [facility] Medicine Heart rate 2022-05-28 14:59:00 73 /min [facility] Body temperature 2022-05-28 14:59:00 36.61 Jeannine [facility] Respiratory rate 2022-05-28 14:59:00 18 /min [facility] Body height 2022-05-28 14:59:00 162.6 cm [facility] Body weight 2022-05-28 14:59:00 71.668 kg [facility] BMI 2022-05-28 14:59:00 27.12 kg/m2 [facility] height 2022-05-09 15:00:00 64 [in_i] [facility] weight 2022-05-09 15:00:00 155.8 [lb_av] [facility] temperature 2022-05-09 15:00:00 97.8 [degF] [facility] bmi 2022-05-09 15:00:00 26.74 kg/m2 [facility] oximetry 2022-05-09 15:00:00 97 % [facility] respiratory rate 2022-05-09 15:00:00 15 /min [facility] blood pressure 2022-05-09 15:00:00 109 mm[Hg] [facility] - systolic [facility] blood pressure 2022-05-09 15:00:00 58 mm[Hg] [facility] - diastolic [facility] height 2022-05-06 14:00:00 64 [in_i] [facility] weight 2022-05-06 14:00:00 157 [lb_av] [facility] temperature 2022-05-06 14:00:00 97.2 [degF] [facility] bmi 2022-05-06 14:00:00 26.95 kg/m2 [facility] blood pressure 2022-05-06 14:00:00 112 mm[Hg] [facility] blood pressure 2022-05-06 14:00:00 68 mm[Hg] [facility] Systolic blood 2022-03-22 18:27:00 112 mm[Hg] [facility] Medicine Diastolic blood 2022-03-22 18:27:00 65 mm[Hg] [facility] Medicine Heart rate 2022-03-22 18:27:00 71 /min [facility] Body height 2022-03-22 18:27:00 162.6 cm [facility] Body weight 2022-03-22 18:27:00 68.947 kg [facility] BMI 2022-03-22 18:27:00 26.09 kg/m2 [facility] Systolic blood 2022-02-26 16:41:00 125 mm[Hg] [facility] Medicine Diastolic blood 2022-02-26 16:41:00 72 mm[Hg] [facility] Medicine Heart rate 2022-02-26 16:41:00 83 /min [facility] Body temperature 2022-02-26 16:41:00 36.78 Jeannine [facility] Respiratory rate 2022-02-26 16:41:00 18 /min [facility] Body height 2022-02-26 16:41:00 162.6 cm [facility] Body weight 2022-02-26 16:41:00 70.67 kg [facility] BMI 2022-02-26 16:41:00 26.74 kg/m2 [facility] height 2022-02-26 16:40:00 64 [in_i] [facility] weight 2022-02-26 16:40:00 155 [lb_av] [facility] bmi 2022-02-26 16:40:00 26.6 kg/m2 [facility] height 2021-12-06 11:40:00 64 [in_i] [facility] weight 2021-12-06 11:40:00 154 [lb_av] [facility] temperature 2021-12-06 11:40:00 97.8 [degF] [facility] bmi 2021-12-06 11:40:00 26.43 kg/m2 [facility] oximetry 2021-12-06 11:40:00 98 % [facility] respiratory rate 2021-12-06 11:40:00 20 /min Comm on [facility] blood pressure 2021-12-06 11:40:00 122 mm[Hg] [facility] blood pressure 2021-12-06 11:40:00 59 mm[Hg] [facility] height 2021-11-19 10:00:00 64 [in_i] Common [facility] weight 2021-11-19 10:00:00 152.4 [lb_av] [facility] temperature 2021-11-19 10:00:00 97.7 [degF] Common [facility] bmi 2021-11-19 10:00:00 26.16 kg/m2 [facility] oximetry 2021-11-19 10:00:00 97 % [facility] 2021-11-19 10:00:00 16 /min Comm on [facility] blood pressure 2021-11-19 10:00:00 118 mm[Hg] Common [facility] - systolic [facility] blood pressure 2021-11-19 10:00:00 57 mm[Hg] [facility] height 2021-10-09 16:00:00 64 [in_i] [facility] weight 2021-10-09 16:00:00 152 [lb_av] Common [facility] temperature 2021-10-09 16:00:00 97.7 [degF] Common [facility] bmi 2021-10-09 16:00:00 26.09 kg/m2 Common [facility] oximetry 2021-10-09 16:00:00 98 % Common [facility] respiratory rate 2021-10-09 16:00:00 18 /min Comm on [facility] blood pressure 2021-10-09 16:00:00 129 mm[Hg] Common [facility] - systolic [facility] blood pressure 2021-10-09 16:00:00 60 mm[Hg] Common [facility] - diastolic [facility] height 2021-09-10 08:40:00 64 [in_i] Common [facility] weight 2021-09-10 08:40:00 148.8 [lb_av] [facility] temperature 2021-09-10 08:40:00 97.7 [degF] Common [facility] bmi 2021-09-10 08:40:00 25.54 kg/m2 [facility] oximetry 2021-09-10 08:40:00 100 % [facility] respiratory rate 2021-09-10 08:40:00 16 /min Comm on [facility] blood pressure 2021-09-10 08:40:00 123 mm[Hg] Common [facility] - systolic [facility] blood pressure 2021-09-10 08:40:00 58 mm[Hg] Common [facility] - diastolic [facility] height 2021-08-21 11:40:00 64 [in_i] Common [facility] weight 2021-08-21 11:40:00 149.4 [lb_av] [facility] temperature 2021-08-21 11:40:00 97.6 [degF] Common [facility] bmi 2021-08-21 11:40:00 25.64 kg/m2 [facility] oximetry 2021-08-21 11:40:00 99 % [facility] respiratory rate 2021-08-21 11:40:00 15 /min Comm on [facility] blood pressure 2021-08-21 11:40:00 121 mm[Hg] Common [facility] - systolic [facility] blood pressure 2021-08-21 11:40:00 57 mm[Hg] Common [facility] - diastolic [facility] height 2021-04-05 16:20:00 64 [in_i] [facility] weight 2021-04-05 16:20:00 157 [lb_av] [facility] temperature 2021-04-05 16:20:00 97.6 [degF] [facility] bmi 2021-04-05 16:20:00 26.95 kg/m2 [facility] oximetry 2021-04-05 16:20:00 98 % [facility] respiratory rate 2021-04-05 16:20:00 21 /min Comm on [facility] blood pressure 2021-04-05 16:20:00 120 mm[Hg] Common [facility] - systolic [facility] blood pressure 2021-04-05 16:20:00 58 mm[Hg] Common [facility] - diastolic [facility] Systolic blood 2022-08-01 10:52:00 110 mm[Hg] [facility] Diastolic blood 2022-08-01 10:52:00 67 mm[Hg] [facility] Heart rate 2022-08-01 10:52:00 84 /min [facility] Body temperature 2022-08-01 10:52:00 36.28 Jeannine [facility] Body height 2022-08-01 10:52:00 162.6 cm [facility] Body weight 2022-08-01 10:52:00 73.71 kg [facility] BMI 2022-08-01 10:52:00 27.89 kg/m2 [facility] Oxygen saturation in 2022-08-01 10:52:00 98 /min [facility] Arterial blood by Medical Ce nter Pulse oximetry Respiratory rate 2022-03-08 10:20:00 12 /min [facility] Systolic blood 2022-03-08 10:20:00 110 mm[Hg] [facility] Diastolic blood 2022-03-08 10:20:00 61 mm[Hg] [facility] Heart rate 2022-03-08 10:20:00 70 /min [facility] Oxygen saturation in 2022-03-08 10:20:00 95 /min [facility] Arterial blood by Medical Ce nter Pulse oximetry Body temperature 2022-03-08 09:51:00 36.5 Jeannine [facility] Body height 2022-03-08 09:19:00 162.6 cm [facility] Body weight 2022-03-08 09:19:00 75.751 kg [facility] BMI 2022-03-08 09:19:00 28.67 kg/m2 [facility] Procedures Procedure Date / Time Performing Clinician Source Performed POCT HEMOGLOBIN A1C 2022-08-30 21:29:00 [facility] 2022-08-01 11:46:00 Karsten Moreira [facility] HEPATIC FUNCTION PANEL 2022-08-01 11:46:00 Karsten Moreira [facility] CBC W/PLT COUNT & AUTO 2022-08-01 11:46:00 Karsten Moreira [facility] PROTHROMBIN TIME/INR 2022-08-01 11:46:00 Karsten Moreira [facility] ALPHA FETOPROTEIN (AFP), 2022-08-01 11:46:00 Karsten Moreira [facility] TUMOR MARKER [facility] CBC W/PLT COUNT & AUTO 2022-08-01 11:46:00 Moreira, Karsten [facility] POCT HEMOGLOBIN A1C 2022-03-22 18:42:00 Kadeem Minor [facility] REPORT OF PROCEDURE - 2022-03-08 09:57:00 Trina Perez [facility] ENDOSCOPY [facility] REPORT OF PROCEDURE - 2022-03-08 09:54:01 Trina Perez [facility] ENDOSCOPY [facility] TISSUE EXAM 2022-03-08 09:24:00 Trina Perez [facility] POCT-GLUCOSE METER 2022-03-08 09:14:00 Trina Perez [facility] EGD 2022-03-08 09:13:00 Trina Perez [facility] (ESOPHAGOGASTRODUODENOSCO [facility]) COLONOSCOPY, WITH 2022-03-08 09:13:[address] [facility] es POLYPECTOMY [facility] NM GASTRIC EMPTYING STUDY 2022-02-14 15:42:00 William Jessica [facility] 4 HOUR [facility] HEPATITIS A ANTIBODY, IGG 2022-01-10 13:59:00 Ivet Barboza [facility] BASIC METABOLIC PANEL 2022-01-10 13:59:00 AracelyWilliam pickard [facility] HEPATIC FUNCTION PANEL 2022-01-10 13:59:00 AracelyWilliam suresh [facility] CBC W/PLT COUNT & AUTO 2022-01-10 13:59:00 AracelyWilliam suresh [facility] PROTHROMBIN TIME/INR 2022-01-10 13:59:00 AracelyWilliam suresh [facility] LACTIC ACID, VENOUS 2022-01-10 13:59:00 AracelyWilliam pickard [facility] CBC W/PLT COUNT & AUTO 2022-01-10 13:59:00 AracelyWilliam pickard [facility] MR ABDOMEN WITH & WITHOUT 2022-01-03 08:59:00 Luís Greer [facility] IV CONTRAST [facility] ALPHA FETOPROTEIN (AFP), 2021-12-17 15:44:00 Luís Greer [facility] TUMOR MARKER [facility] LACTIC ACID, VENOUS 2021-12-17 15:44:00 Luís Greer [facility] CBC W/PLT COUNT & AUTO 2021-12-17 15:44:00 Luís Greer [facility] COMPREHENSIVE METABOLIC 2021-12-17 15:44:00 Luís Greer [facility] PANEL [facility] BILIRUBIN, DIRECT 2021-12-17 15:44:00 Luís Greer [facility] CBC W/PLT COUNT & AUTO 2021-12-17 15:44:00 Luís Greer [facility] PROTHROMBIN TIME/INR 2021-12-17 15:44:00 Luís Greer [facility] HEPATITIS B SURFACE 2021-12-17 15:44:00 Luís Greer [facility] ANTIGEN [facility] HEPATITIS B SURFACE 2021-12-17 15:44:00 [facility] HEPATITIS B CORE 2021-12-17 15:44:00 Luís Greer [facility] ANTIBODY, TOTAL [facility] HEPATITIS C ANTIBODY 2021-12-17 15:44:00 Luís Greer [facility] IRON, TIBC, % SAT. 2021-12-17 15:44:00 Luís Greer [facility] (WITHOUT FERRITIN) Medical Cente r FERRITIN 2021-12-17 15:44:00 Luís Greer [facility] [id number]\\, 2021-12-17 15:44:00 Luís Greer [facility] CERULOPLASMIN 2021-12-17 15:44:00 Luís Greer [facility] ANTI-NUCLEAR ANTIBODY 2021-12-17 15:44:00 Luís Greer [facility] ACTIN (SMOOTH MUSCLE) 2021-12-17 15:44:[address] [facility] ANTIBODY, IGG [facility] MITOCHONDRIA M2 ANTIBODY 2021-12-17 15:44:[address]ís [address] [facility] (IGG) [facility] Plan of Care Planned Activity Planned Date Details Comments Source Future Scheduled 2032-03-08 Screening for malignant [facility] Test 00:00:00 neoplasm of colon Medical Ce nter (procedure) [code = 231075590] Future Scheduled 2032-03-08 Screening for malignant [facility] Test 00:00:00 neoplasm of colon Medical Ce nter (procedure) [code = 034678361] Future Scheduled 2032-03-08 Screening for malignant [facility] Test 00:00:00 neoplasm of colon Medical Ce nter (procedure) [code = 756243695] Future Scheduled 2032-03-08 Screening for malignant [facility] Test 00:00:00 neoplasm of colon Medical Ce nter (procedure) [code = 871815205] Future Scheduled 2032-03-08 Screening for malignant [facility] Test 00:00:00 neoplasm of colon Medical Ce nter (procedure) [code = 657448534] Future Scheduled 2032-03-08 Screening for malignant [facility] Test 00:00:00 neoplasm of colon Medical Ce nter (procedure) [code = 235399785] Future Scheduled 2032-03-08 Screening for malignant [facility] Test 00:00:00 neoplasm of colon Medical Ce nter (procedure) [code = 802025378] Future Scheduled 2032-03-08 Screening for malignant [facility] Test 00:00:00 neoplasm of colon Medical Ce nter (procedure) [code = 209723565] Future Scheduled 2032-03-08 Screening for malignant [facility] Test 00:00:00 neoplasm of colon Medical Ce nter (procedure) [code = 884068110] Future Scheduled 2032-03-08 Screening for malignant [facility] Test 00:00:00 neoplasm of colon Medical Ce nter (procedure) [code = 063910561] Future Scheduled 2032-03-08 Screening for malignant [facility] Test 00:00:00 neoplasm of colon Medical Ce nter (procedure) [code = 801951854] Future Scheduled 2032-03-08 Screening for malignant [facility] Test 00:00:00 neoplasm of colon Medical Ce nter (procedure) [code = 306110316] Future Scheduled 2025-05-28 Lipid panel (procedure) [facility] Test 00:00:00 [code = 43258888] Medical Ce nter Future Scheduled 2024-03-05 Screening for malignant [facility] Test 00:00:00 neoplasm of breast Medical C enter (procedure) [code = 563910207] Future Scheduled 2024-03-05 Screening for malignant [facility] Test 00:00:00 neoplasm of breast Medical C enter (procedure) [code = 045409410] Future Scheduled 2024-03-05 Screening for malignant [facility] Test 00:00:00 neoplasm of breast Medical C enter (procedure) [code = 802988748] Future Scheduled 2024-03-05 Screening for malignant [facility] Test 00:00:00 neoplasm of breast Medical C enter (procedure) [code = 351601407] Future Scheduled 2024-03-05 Screening for malignant [facility] Test 00:00:00 neoplasm of breast Medical C enter (procedure) [code = 451228185] Future Scheduled 2024-03-05 Screening for malignant [facility] Test 00:00:00 neoplasm of breast Medical C enter (procedure) [code = 453387104] Future Scheduled 2023-08-[address] [facility] Test 00:00:00 Counseling and Medical Cente r Screening (12+) [code = Tobacco Cessation Counseling and Screening (12+)] Future Scheduled 2023-05-28 Urine screening for [facility] Test 00:00:00 protein (procedure) Medical Center [code = 409793425] Future Scheduled 2023-03-[address] [...] Cessation Counseling and Screening (12+)] Future Scheduled 2022-08-30 Pneumococcal Combined Ba [facility] Test 16:12:17 (1 - PCV) [code = of Medicin e Pneumococcal Combined (1 - PCV)] Future Scheduled 2022-08-30 Annual Diabetic [facility] Test 16:12:17 Retinopathy Screening of Med icine [code = Annual Diabetic Retinopathy Screening] Future Scheduled 2022-08-30 BMI Follow Up Plan [facility] Test 16:12:17 [code = BMI Follow Up of Med icine Plan] Future Scheduled 2022-08-30 Human immunodeficiency [facility] Test 16:12:17 virus screening of Medicine (procedure) [code = 558223230] Future Scheduled 2022-08-30 ZOSTER VACCINE (1 of 2) [facility] Test 16:12:17 [code = ZOSTER VACCINE of Me dicine (1 of 2)] Future Scheduled 2022-08-30 Screening for malignant [facility] Test 16:12:17 neoplasm of cervix of Medici ne (procedure) [code = 477727047] Future Scheduled 2022-08-30 TETANUS SHOT (ADULT) [facility] Test 16:12:17 [code = TETANUS SHOT of Medi cine (ADULT)] Future Scheduled 2022-08-30 COVID-19 Vaccine (4 - Ba [facility] Test 16:12:17 Booster for Pfizer of Medici ne series) [code = COVID-19 Vaccine (4 - Booster for Pfizer series)] Future Scheduled 2022-08-30 FLU VACCINE > 6 MONTHS B [facility] Test 16:12:17 [code = FLU VACCINE > 6 of M edicine MONTHS] Future Scheduled 2022-08-30 [facility]c [facility] Test 16:12:17 measurement (procedure) of M edicine [code = 08307723] Future Scheduled 2022-08-30 Screening for malignant [facility] Test 16:12:17 neoplasm of breast of Medici ne (procedure) [code = 983899739] Future Scheduled 2022-08-30 Diabetic foot [facility] Test 16:12:17 examination of Medicine (regime/therapy) [code = 346418895] Future Scheduled 2022-08-30 Screening for malignant [facility] Test 16:12:17 neoplasm of colon of Medicin e (procedure) [code = 871142513] Future Scheduled 2022-06-[address] [...] DEPRESSION SCREENING (12+)] Future Scheduled 2022-06-03 Pneumococcal Combined [facility] Test 15:43:24 (1 - PCV) [code = of Medicin e Pneumococcal Combined (1 - PCV)] Future Scheduled 2022-06-03 ANNUAL DIABETIC [facility] Test 15:43:24 RETINOPATHY SCREENING of Med icine [code = ANNUAL DIABETIC RETINOPATHY SCREENING] Future Scheduled 2022-06-03 BMI FOLLOW UP PLAN [facility] Test 15:43:24 [code = BMI FOLLOW UP of Med icine PLAN] Future Scheduled 2022-06-03 Human immunodeficiency B [facility] Test 15:43:24 virus screening of Medicine (procedure) [code = 985565780] Future Scheduled 2022-06-03 ZOSTER VACCINE (1 of 2) [facility] Test 15:43:24 [code = ZOSTER VACCINE of Me dicine (1 of 2)] Future Scheduled 2022-06-03 Screening for malignant [facility] Test 15:43:24 neoplasm of cervix of Medici ne (procedure) [code = 392511579] Future Scheduled 2022-06-03 TETANUS SHOT (ADULT) [facility] Test 15:43:24 [code = TETANUS SHOT of Medi cine (ADULT)] Future Scheduled 2022-06-03 COVID-19 Vaccine (4 - Ba [facility] Test 15:43:24 Booster for Pfizer of Medici ne series) [code = COVID-19 Vaccine (4 - Booster for Pfizer series)] Future Scheduled 2022-06-03 [facility] > [facility] MON[facility]:43:24 [code = FLU VACCINE > 6 of M edicine MONTHS] Future Scheduled 2022-06-03 Hemoglobin A1c [facility] Test 15:43:24 measurement (procedure) of M edicine [code = 06590619] Future Scheduled 2022-06-03 Screening for malignant [facility] Test 15:43:24 neoplasm of breast of Medici ne (procedure) [code = 297108901] Future Scheduled 2022-06-03 Diabetic foot [facility] Test 15:43:24 examination of Medicine (regime/therapy) [code = 620642468] Future Scheduled 2022-06-03 Screening for malignant [facility] Test 15:43:24 neoplasm of colon of Medicin e (procedure) [code = 881365024] Future Scheduled 2022-05-31 Pneumococcal Combined Ba [facility] Test 16:18:29 (1 - PCV) [code = of Medicin e Pneumococcal Combined (1 - PCV)] Future Scheduled 2022-05-31 Diabetic foot [facility] Test 16:18:29 examination of Medicine (regime/therapy) [code = 443490764] Future Scheduled 2022-05-31 ANNUAL DIABETIC [facility] Test 16:18:29 RETINOPATHY SCREENING of Med icine [code = ANNUAL DIABETIC RETINOPATHY SCREENING] Future Scheduled 2022-05-31 BMI FOLLOW UP PLAN [facility] Test 16:18:29 [code = BMI FOLLOW UP of Med icine PLAN] Future Scheduled 2022-05-31 Human immunodeficiency B [facility] Test 16:18:29 virus screening of Medicine (procedure) [code = 879460097] Future Scheduled 2022-05-31 ZOSTER VACCINE (1 of 2) [facility] Test 16:18:29 [code = ZOSTER VACCINE of Me dicine (1 of 2)] Future Scheduled 2022-05-31 Screening for malignant [facility] Test 16:18:29 neoplasm of cervix of Medici ne (procedure) [code = 105185388] Future Scheduled 2022-05-31 TETANUS SHOT (ADULT) [facility] Test 16:18:29 [code = TETANUS SHOT of Medi cine (ADULT)] Future Scheduled 2022-05-31 COVID-19 Vaccine (4 - Ba [facility] Test 16:18:29 Booster for Pfizer of Medici ne series) [code = COVID-19 Vaccine (4 - Booster for Pfizer series)] Future Scheduled 2022-05-31 FLU VACCINE > 6 MONTHS B [facility] Test 16:18:29 [code = FLU VACCINE > 6 of M edicine MONTHS] Future Scheduled 2022-05-31 Hemoglobin A1c [facility] Test 16:18:29 measurement (procedure) of M edicine [code = 94379938] Future Scheduled 2022-05-31 Screening for malignant [facility] Test 16:18:29 neoplasm of breast of Medici ne (procedure) [code = 743155307] Future Scheduled 2022-05-31 Screening for malignant [facility] Test 16:18:29 neoplasm of colon of Medicin e (procedure) [code = 642233992] Future Scheduled 2022-05-28 Pneumococcal Combined Ba [facility] Test 08:59:19 (1 - PCV) [code = of Medicin e Pneumococcal Combined (1 - PCV)] Future Scheduled 2022-05-28 Diabetic foot [facility] Test 08:59:19 examination of Medicine (regime/therapy) [code = 178269982] Future Scheduled 2022-05-28 ANNUAL DIABETIC [facility] Test 08:59:19 RETINOPATHY SCREENING of Med icine [code = ANNUAL DIABETIC RETINOPATHY SCREENING] Future Scheduled 2022-05-28 BMI FOLLOW UP PLAN [facility] Test 08:59:19 [code = BMI FOLLOW UP of Med icine PLAN] Future Scheduled 2022-05-28 Human immunodeficiency B [facility] Test 08:59:19 virus screening of Medicine (procedure) [code = 836795678] Future Scheduled 2022-05-28 ZOSTER VACCINE (1 of 2) [facility] Test 08:59:19 [code = ZOSTER VACCINE of Nd dicine (1 of 2)] Future Scheduled 2022-05-28 Screening for malignant [facility] Test 08:59:19 neoplasm of cervix of Medici ne (procedure) [code = 406106161] Future Scheduled 2022-05-28 TETANUS SHOT (ADULT) [facility] Test 08:59:19 [code = TETANUS SHOT of Medi cine (ADULT)] Future Scheduled 2022-05-28 COVID-19 Vaccine (3 - Ba [facility] Test 08:59:19 Booster for Pfizer of Medici ne series) [code = COVID-19 Vaccine (3 - Booster for Pfizer series)] Future Scheduled 2022-05-28 FLU VACCINE > 6 MONTHS B [facility] Test 08:59:19 [code = FLU VACCINE > 6 of M edicine MONTHS] Future Scheduled 2022-05-28 Hemoglobin A1c [facility] Test 08:59:19 measurement (procedure) of M edicine [code = 04455588] Future Scheduled 2022-05-28 Screening for malignant [facility] Test 08:59:19 neoplasm of breast of Medici ne (procedure) [code = 082796924] Future Scheduled 2022-05-28 Screening for malignant [facility] Test 08:59:19 neoplasm of colon of Medicin e (procedure) [code = 789061778] Future Scheduled 2022-03-29 MICROALBUMIN/CREAT Expected: [facility] Test 00:00:00 URINE RATIO [code = 03/29/2022 of Medic ine 9318-7] (Approximate), Expires: 09/19/2022 Future Scheduled 2022-03-29 LIPID PANEL [code = Expected: [facility] Test 00:00:00 22058-3] 03/29/2022 of Medicine (Approximate), Expires: 09/19/2022 Future Scheduled 2022-03-24 Pneumococcal Combined [facility] Test 13:41:11 (1 - PCV) [code = of Medicin e Pneumococcal Combined (1 - PCV)] Future Scheduled 2022-03-24 Diabetic foot [facility] Test 13:41:11 examination of Medicine (regime/therapy) [code = 151350521] Future Scheduled 2022-03-24 ANNUAL DIABETIC [facility] Test 13:41:11 RETINOPATHY SCREENING of Med icine [code = ANNUAL DIABETIC RETINOPATHY SCREENING] Future Scheduled 2022-03-24 BMI FOLLOW UP PLAN [facility] [place] Test 13:41:11 [code = BMI FOLLOW UP of Med icine PLAN] Future Scheduled 2022-03-24 Human immunodeficiency B [facility] Test 13:41:11 virus screening of Medicine (procedure) [code = 026044872] Future Scheduled 2022-03-24 Screening for malignant [facility] Test 13:41:11 neoplasm of cervix of Medici ne (procedure) [code = 958206625] Future Scheduled 2022-03-24 TETANUS SHOT (ADULT) [facility] Test 13:41:11 [code = TETANUS SHOT of Medi cine (ADULT)] Future Scheduled 2022-03-24 ZOSTER VACCINE (1 of 2) [facility] Test 13:41:11 [code = ZOSTER VACCINE of Me dicine (1 of 2)] Future Scheduled 2022-03-24 COVID-19 Vaccine (3 - Ba [facility] Test 13:41:11 Booster for Pfizer of Medici ne series) [code = COVID-19 Vaccine (3 - Booster for Pfizer series)] Future Scheduled 2022-03-24 FLU VACCINE > 6 MONTHS B [facility] Test 13:41:11 [code = FLU VACCINE > 6 of M edicine MONTHS] Future Scheduled 2022-03-24 Hemoglobin A1c [facility] Test 13:41:11 measurement (procedure) of M edicine [code = 21843701] Future Scheduled 2022-03-24 Screening for malignant [facility] Test 13:41:11 neoplasm of breast of Medici ne (procedure) [code = 990726665] Future Scheduled 2022-03-24 Screening for malignant [facility] Test 13:41:11 neoplasm of colon of Medicin e (procedure) [code = 752891163] Future Scheduled 2022-02-28 INFLUENZA VACCINE (#1) C [...] (#1)] Future Scheduled 2022-02-27 Screening for malignant [facility] Test 11:42:27 neoplasm of colon of Medicin e (procedure) [code = 007201333] Future Scheduled 2022-02-27 Pneumococcal Combined Ba or [facility] Test 11:42:27 (1 - PCV) [code = of Medicin e Pneumococcal Combined (1 - PCV)] Future Scheduled 2022-02-27 BMI FOLLOW UP PLAN [facility] Test 11:42:27 [code = BMI FOLLOW UP of Med icine PLAN] Future Scheduled 2022-02-27 Human immunodeficiency B [facility] Test 11:42:27 virus screening of Medicine (procedure) [code = 894112699] Future Scheduled 2022-02-27 Screening for malignant [facility] Test 11:42:27 neoplasm of cervix of Medici ne (procedure) [code = 147225282] Future Scheduled 2022-02-27 TETANUS SHOT (ADULT) [facility] Test 11:42:27 [code = TETANUS SHOT of Medi cine (ADULT)] Future Scheduled 2022-02-27 Screening for malignant [facility] Test 11:42:27 neoplasm of breast of Medici ne (procedure) [code = 324892753] Future Scheduled 2022-02-27 ZOSTER VACCINE (1 of 2) [facility] Test 11:42:27 [code = ZOSTER VACCINE of Me dicine (1 of 2)] Future Scheduled 2022-02-27 COVID-19 Vaccine (3 - Ba [facility] Test 11:42:27 Booster for Pfizer of Medici ne series) [code = COVID-19 Vaccine (3 - Booster for Pfizer series)] Future Scheduled 2022-02-27 FLU VACCINE > 6 MONTHS [facility] Test 11:42:27 [code = FLU VACCINE > 6 of M edicine MONTHS] Future Scheduled 2022-01-[address] [facility] Test 00:[facility]:00 measurement (procedure) [facility] [code = 90201216] Future Scheduled 2022-01-[address] [facility] 00:00:00 [facility] (procedure[facility] [code = 53586757] Future Scheduled 2022-01-[address] [facility] Test 00:00:00 measurement (procedure) [facility] [code = 80909927] Future Scheduled 2022-01-[address] [facility] Test 00:00:00 measurement (procedure) [facility] [code = 71768056] Future Scheduled 2022-01-[address] [facility] Test 00:00:00 measurement (procedure) [facility] [code = 49186491] Future Scheduled 2022-01-[address] [facility] Test 00:00:00 measurement (procedure) [facility] [code = 98515989] Future Scheduled 2021-06-[address] [...] - Booster for Pfizer series)] Future Scheduled 2020-11-11 COVID-19 VACCINE (3 - CH [facility] [...] [facility] Test 00:00:00 [code = 24272114] Medical Ce nter Future Scheduled 2014 Lipid panel (procedure) [facility] Test 00:00:00 [code = 59175342] Medical Ce nter Future Scheduled 2014 Lipid panel (procedure) [facility] Test 00:00:00 [code = 85567646] Medical Ce nter Future Scheduled 2014 Lipid panel (procedure) [facility] Test 00:00:00 [code = 49660772] Medical Ce nter Future Scheduled 2014 Lipid panel (procedure) [facility] Test 00:00:00 [code = 83301594] Medical Ce nter Future Scheduled 1990 Screening for malignant [facility] Test 00:00:00 neoplasm of cervix Medical C enter (procedure) [code = 549016309] Future Scheduled 1990 Screening for malignant [facility] Test 00:00:00 neoplasm of cervix Medical C enter (procedure) [code = 352776867] Future Scheduled 1990 Screening for malignant [facility] Test 00:00:00 neoplasm of cervix Medical C enter (procedure) [code = 988355327] Future Scheduled 1990 Screening for malignant [facility] Test 00:00:00 neoplasm of cervix Medical C enter (procedure) [code = 036172091] Future Scheduled 1990 Screening for malignant [facility] Test 00:00:00 neoplasm of cervix Medical C enter (procedure) [code = 576532171] Future Scheduled 1990 Screening for malignant [facility] Test 00:00:00 neoplasm of cervix Medical C enter (procedure) [code = 823590347] Future Scheduled 1988-01-07 DTAP/TDAP/TD VACCINES CH I [...] 00:00:00 examination Medical Center (regime/therapy) [code = 963240726] Future Scheduled 1979 DIABETIC EYE EXAM [code [facility] Test 00:00:00 = DIABETIC EYE EXAM] Medical Center Future Scheduled [address] [facility] 00[facility] examination Medical Center (regime/therapy) [code = 769885699] Future Scheduled 1979 Urine screening for [facility] Test 00:00:00 protein (procedure) Medical Center [code = 400634568] Future Scheduled 1979 DIABETIC EYE EXAM [code [facility] Test 00:00:00 = DIABETIC EYE EXAM] Medical Center Future Scheduled [address] [facility] Test 00:00:00 examination Medical Center (regime/therapy) [code = 002826337] Future Scheduled 1979 Urine screening for [facility] Test 00:00:00 protein (procedure) Medical Center [code = 255907261] Future Scheduled 1979 DIABETIC EYE EXAM [code [facility] Test 00:00:00 = DIABETIC EYE EXAM] Medical Center Future Scheduled [address] [facility] Test 00:00:00 examination Medical Center (regime/therapy) [code = 798289967] Future Scheduled 1979 Urine screening for [facility] Test 00:00:00 protein (procedure) Medical Center [code = 240917732] Future Scheduled 1979 DIABETIC EYE EXAM [code [facility] Test 00:00:00 = DIABETIC EYE EXAM] Medical Center Future Scheduled [address] [facility] Test 00:00:00 examination Medical Center (regime/therapy) [code = 693503940] Future Scheduled 1979 Urine screening for [facility] Test 00:00:00 protein (procedure) Medical Center [code = 558893257] Future Scheduled 1979 DIABETIC EYE EXAM [code [facility] Test 00:00:00 = DIABETIC EYE EXAM] Medical Center Future Scheduled [address] [facility] Test 00:00:00 examination Medical Center (regime/therapy) [code = 773402934] Future Scheduled 1979 Urine screening for [facility] Test 00:00:00 protein (procedure) [facility] [code = 109466187] Future Scheduled [address] [facility] Test 00:00:00 [code = CT Colonography [facility] (combo)] Future Scheduled 1969 Screening for malignant [facility] Test 00:00:00 neoplasm of colon Medical Ce nter (procedure) [code = 382540578] Future Scheduled 1969 Screening for malignant [facility] Test 00:00:00 neoplasm of colon Medical Ce nter (procedure) [code = 891352440] Future Scheduled 1969 Sigmoidoscopy [facility] ([facility] Test 00:00:00 [code = CT Colonography [facility] (combo)] Future Scheduled 1969 Screening for malignant [facility] Test 00:00:00 neoplasm of colon Medical Ce nter (procedure) [code = 983432408] Future Scheduled 1969 Screening for malignant [facility] Test 00:00:00 neoplasm of colon Medical Ce nter (procedure) [code = 438936749] Future Scheduled 1969 Sigmoidoscopy [facility]code = [facility]oscopy] Medical Cent[facility] r Future Scheduled 1969 CT Colonography (combo) [facility] Test 00:00:00 [code = CT Colonography [facility] (combo)] Future Scheduled 1969 Screening for malignant [facility] Test 00:00:00 neoplasm of colon Medical Ce nter (procedure) [code = 185935781] Future Scheduled 1969 Screening for malignant [facility] Test 00:00:00 neoplasm of colon Medical Ce nter (procedure) [code = 888650624] Future Scheduled 1969 Sigmoidoscopy [facility]code [facility] ([facility]bo) [facility] Test 00:00:00 [code = CT Colonography [facility] (combo)] Future Scheduled 1969 Screening for malignant [facility] Test 00:00:00 neoplasm of colon Medical Ce nter (procedure) [code = 260893811] Future Scheduled 1969 Screening for malignant [facility] Test 00:00:00 neoplasm of colon Medical Ce nter (procedure) [code = 896004280] Future Scheduled 1969 Sigmoidoscopy [facility]code [facility] 00:[facility]oscopy] Medical Cente r Future Scheduled 1969 CT Colonography (combo) [facility] Test 00:00:00 [code = CT Colonography [facility] (combo)] Future Scheduled 1969 Screening for malignant [facility] Test 00:00:00 neoplasm of colon Medical Ce nter (procedure) [code = 775415496] Future Scheduled 1969 Screening for malignant [facility] Test 00:00:00 neoplasm of colon Medical Ce nter (procedure) [code = 757402334] Future Scheduled 1969 Sigmoidoscopy [code = [facility] 00:00:[facility] S[facility]oidoscopy] Medical Cente r Future Scheduled 1969 CT Colonography (combo) [facility] Test 00:00:00 [code = CT Colonography [facility] (combo)] Future Scheduled 1969 Screening for malignant [facility] Test 00:00:00 neoplasm of colon Medical Ce nter (procedure) [code = 842608421] Future Scheduled 1969 Screening for malignant [facility] Test 00:00:00 neoplasm of colon Medical Ce nter (procedure) [code = 701154841] Future Scheduled 1969 Sigmoidoscopy [code [facility] 00:[facility] S[facility]oscopy] Medical Cente r Encounters Start End Encounter Admission Attending Care Care Encounter Source Date/Time Date/Time Type Type Clinicians Facility Department ID 2022-09-13 Outpatient MIRELLA Boyd [facility] [id number] Common 09:56:[id number] [facility] 2022-09-12 Outpatient [facility] [id number] [place] 13:14:48 [id number] [facility] 2022-08-22 Outpatient [facility] [id number] [place] 08:15:21 [id number] [facility] 2022-08-20 Outpatient [facility] [id number] [place] 13:06:39 [id number] [facility] 2022-08-16 Outpatient [facility] [id number] [place] 15:23:17 [id number] [facility] 2022-08-05 Outpatient MIRELLA Boyd [facility] [id number] Common 11:50:[id number] [facility] 2022-07-12 Outpatient [facility] [id number] [place] 11:38:19 [id number] [facility] 2022-07-11 Outpatient [facility] [id number] [place] 10:08:58 [id number] [facility] 2022-07-09 Outpatient [facility] [id number] [place] 16:26:28 [id number] [facility] 2022-06-11 [facility] [id number] 2 Common 09:04:01 [facility] 2022-05-06 Outpatient Haney, Na STLMLC STLMLC [id number] 2 Common 14:47:00 [facility] 2022-05-01 Outpatient Haney, Na STLMLC STLMLC [id number] 2 Common 10:38:00 [facility] 2022-04-24 Outpatient Haney, Na STLMLC STLMLC [id number] 2 Common 13:41:01 [facility] 2022-04-18 Outpatient Haney, Na STLMLC STLMLC [id number] 2 Common 14:22:00 [facility] 2022-04-03 Outpatient Haney, Na STLMLC STLMLC [id number] 2 Common 16:47:01 [facility] 2022-03-20 Outpatient Haney, Na STLMLC STLMLC [id number] 2 Common 11:50:01 [facility] 2022-02-22 Outpatient Haney, Na STLMLC STLMLC [id number] 2 Common 09:27:00 [facility] 2022-01-31 Outpatient Haney, Na STLMLC STLMLC [id number] 2 Common 13:37:01 [facility] 2022-01-15 Outpatient Haney, Na STLMLC STLMLC [id number] 2 Common 13:51:00 [facility] 2021-11-19 Outpatient Haney, Na STLMLC STLMLC [id number] 2 Common 11:21:07 [facility] 2021-11-02 Outpatient Haney, Na STLMLC STLMLC [id number] 2 Common 09:23:01 [facility] 2021-10-08 Outpatient Haney, Na STLMLC STLMLC [id number] 2 Common 11:37:01 [facility] 2021-09-24 Outpatient Haney, Na STLMLC STLMLC [id number] 2 Common 11:59:00 [facility] 2021-09-06 Outpatient Haney, Na STLMLC STLMLC [id number] 2 Common 08:34:01 [facility] 2021-08-21 Outpatient Haney, Na STLMLC STLMLC [id number] 2 Common 11:41:00 [facility] 2021-07-25 Outpatient Haney, Na STLMLC STLMLC [id number] 2 Common 14:33:29 [facility] 2021-07-25 Outpatient Haney, Na STLMLC STLMLC [id number] 2 Common 14:24:24 [facility] 2021-07-25 Outpatient Haney, Na STLMLC STLMLC [id number] 2 Common 13:57:58 [facility] 2021-07-25 Outpatient Haney, Na STLMLC STLMLC [id number] 2 Common 13:56:[id number] [facility] 2021-07-25 Outpatient Haney, Na STLMLC STLMLC [id number] 2 Common 13:47:[id number] [facility] 2021-07-25 Outpatient Haney, Na STLMLC STLMLC [id number] 2 Common 12:48:[id number] [facility] 2021-07-25 Outpatient Haney, Na STLMLC STLMLC [id number] 2 Common 12:33:[id number] [facility] 2021-07-25 Outpatient Haney, Na STLMLC STLMLC [id number] 2 Common 12:31:[id number] [facility] 2021-07-25 Outpatient Haney, Na STLMLC STLMLC [id number] 2 Common 12:26:[id number] [facility] 2021-07-25 Outpatient Haney, Na STLMLC STLMLC [id number] 2 Common 12:09:[id number] [facility] 2021-07-25 Outpatient Haney, Na STLMLC STLMLC [id number] 2 Common 12:02:[id number] [facility] 2021-07-25 Outpatient Haney, Na STLMLC STLMLC [id number] 2 Common 12:01:[id number] [facility] 2021-07-25 Outpatient Haney, Na STLMLC STLMLC [id number] 2 Common 11:58:[id number] [facility] 2021-07-25 Outpatient Haney, Na STLMLC STLMLC [id number] 2 Common 11:57:[id number] [facility] 2021-07-25 Outpatient Haney, Na STLMLC STLMLC [id number] 2 Common 11:57:[id number] [facility] 2021-07-25 Outpatient Haney, Na STLMLC STLMLC [id number] 2 Common 11:56:[id number] [facility] 2021-07-25 Outpatient Haney, Na STLMLC STLMLC [id number] 2 Common 11:55:[id number] [facility] 2021-07-25 Outpatient Haney, Na STLMLC STLMLC [id number] 2 Common 11:32:[address] [facility] 2021-07-25 Outpatient Haney, Na STLMLC STLMLC [id number] 2 Common 11:32:[id number] [facility] 2021-07-25 Outpatient Haney, Na STLMLC STLMLC [id number] 2 Common 11:30:[id number] [facility] 2021-07-25 Outpatient Haney, Na STLMLC STLMLC [id number] 2 Common 11:24:[id number] [facility] 2021-07-25 Outpatient Haney, Na STLMLC STLMLC [id number] 2 Common 11:16:[id number] [facility] 2021-07-25 Outpatient Haney, Na STLMLC STLMLC [id number] 2 Common 11:10:[id number] [facility] 2021-07-25 Outpatient Haney, Na STLMLC STLMLC [id number] 2 Common 11:09:[id number] [facility] 2021-07-25 Outpatient Anette Haney STLMLC STLC [id number] 2 Common 10:58:[id number] [facility] 2021-07-25 Outpatient Anette Haney STLMLC STLMLC [id number] 2 Common 10:57:[id number] [facility] 2022-09-04 2022-09-04 Outpatient LAURA Antonio, [facility] [id number] [facility] 12:00:00 12:00:00 Essie 61 [facility] 2022-08-30 2022-08-30 Office Kadeem Minor 1.2.840.114 [id number] [facility] 15:00:00 16:12:34 Visit AMBULATOR 350.1.13.21 College Y 0.2.7.2.686 [id number] [facility] la nena 310 e 2022-08-30 2022-08-30 Hospital Karsten Moreira [facility] [id number] [facility]3] 07:00:00 07:00:00 [facility] 1.5, [facility] 2022-08-20 2022-08-20 Office EDIE Vitale 1.2.840.114 [id number] [facility] 13:00:00 15:56:24 Visit Valentina FRANC 350.1.13.58 [facility] 9.2.7.2.686 MULTI [id number] SPECIALTY 5 2022-08-08 2022-08-08 (TEL) STLC STLC [id number] Co mmon 00:00:00 00:00:00 Spirit [facility] 2022-08-06 2022-08-06 [facility] [id number] Co mmon 00:00:00 00:00:00 VISIT [facility] LEVEL 3 [facility] 2022-08-05 2022-08-05 (TEL) STLC STLC [id number] Co mmon 00:00:00 00:00:00 Spirit [facility] 2022-08-01 2022-08-01 Office Moreira, [facility] [id number] [address] [place] [address] St 10:45:00 11:15:00 Visit [facility] 2022-07-19 2022-07-19 (TEL) STLMLC STLMLC [id number] Co mmon 00:00:00 00:00:00 [facility] 2022-07-18 2022-07-18 (TEL) STLMLC STLMLC [id number] Co mmon 00:00:00 00:00:00 [facility] 2022-06-26 2022-06-26 (TEL) STLMLC STLMLC [id number] Co mmon 00:00:00 00:00:00 [facility] 2022-06-03 2022-06-03 Office Lomeli, [facility] 1.2.840.114 [id number] [facility] 15:40:00 16:00:00 Visit Suneal K AMBULATOR 350.1.13.21 College Y 0.2.7.2.686 of [id number] Medi la nena 325 e 2022-05-31 2022-05-31 Office Deal, Kadeem [facility] 1.2.840.114 [id number] [facility] 14:30:00 16:18:42 Visit AMBULATOR 350.1.13.21 College Y 0.2.7.2.686 of [id number] Medi la nena 310 e 2022-05-28 2022-05-28 Office Teegavarapu [facility] 1.2.840.114 [id number] [facility] 08:40:00 09:47:51 Visit , Mary Valdes 350.1.13.21 College Sravanti 0.2.7.2.686 of [id number] Medi la nena 506 e 2022-05-28 2022-05-[address] [facility] [id number] [facility] 00:00:00 00:00:00 , MARY videse of Medicin e 2022-05-25 2022-05-25 (TEL) STLC STLC [id number] Co mmon 00:00:00 00:00:00 [facility] 2022-05-09 2022-05-09 OFFICE STLMLC STLMLC [id number] Co mmon 00:00:00 00:00:00 VISIT EST Spir it PT LEVEL 3 - [facility] 2022-05-07 2022-05-07 (TEL) STLMLC STLMLC [id number] Co mmon 00:00:00 00:00:00 [facility] 2022-05-06 2022-05-06 OFFICE STLMLC STLMLC [id number] Co mmon 00:00:00 00:00:00 VISIT Spirit ESTAB PT - [facility] LEVEL 4 [facility] 2022-03-22 2022-03-22 Office Kadeem Minor [facility] 1.2.840.114 [id number] [facility] 13:15:00 14:25:46 Visit AMBULATOR 350.1.13.21 College Y 0.2.7.2.686 of [id number] Medi la nena 310 e 2022-03-20 2022-03-20 (TEL) STLMLC STLMLC [id number] Co mmon 00:00:00 00:00:00 [facility] 2022-03-20 2022-03-20 (TEL) STLMLC STLMLC [id number] Co mmon 00:00:00 00:00:00 [facility] 2022-03-19 2022-03-19 (TEL) STLMLC STLMLC [id number] Co mmon 00:00:00 00:00:00 [facility] 2022-03-08 2022-03-[address] [facility] [id number] [facility] 08:37:00 23:59:00 Colleg e of Medicin e 2022-03-08 2022-03-08 [facility] [id number] 08:37:00 10:47:00 En[address] [facility] 2022-03-08 2022-03-08 [facility] [id number] 08:37:00 10:47:00 Encounter [facility] 2022-03-08 2022-03-08 Outpatient CHRIS, [facility] [id number] [facility] 10:36:11 10:36:11 TRINA [facility]in [facility] 2022-03-08 2022-03-08 Outpatient CHRIS, [facility] [id number] [facility] 10:30:14 10:30:14 TRINA [facility] 2022-03-08 2022-03-08 Surgery Chris, [facility] [id number] 09:30:00 10:30:00 [facility] 2022-03-08 2022-03-08 Surgery Chris, [facility] [id number] 09:30:00 10:30:00 [facility] 2022-03-08 2022-03-08 [facility] [id number] 09:18:00 09:51:00 Event [facility] 2022-03-08 2022-03-08 Anesthesia [facility] [id number] 09:18:00 09:51:00 Event [facility] 2022-03-06 2022-03-06 (TEL) [facility] [id number] Co mmon 00:00:00 00:00:00 Spirit - [facility] 2022-03-05 2022-03-[address] [facility] [id number] [facility] 08:53:14 11:01:45 Colleg e [facility] Medicin e 2022-02-26 2022-02-26 Office TEEGAVARAPU [facility] 1.2.840.114 [id number] [facility] 11:17:43 12:44:36 Visit , MARY Valdes 350.1.13.21 [place] 0.2.7.2.686 of [id number] Medi la nena 506 e 2022-02-26 2022-02-26 OFFICE [facility] [id number] Co mmon 00:00:00 00:00:00 VISIT Spirit ESTAB PT - [facility] LEVEL 4 [facility] 2022-02-14 2022-02-14 [facility] [id number] 08:58:32 23:59:00 Encounter [facility] 2022-02-14 2022-02-14 [facility] [id number] 08:58:32 23:59:00 Encounter [facility] 2022-02-11 2022-02-11 [facility] [id number] 11:48:54 23:59:00 Encounter [facility] 2022-02-11 2022-02-11 [facility] [id number] 11:48:54 23:59:00 Encounter [facility] 2022-02-11 2022-02-11 Travel [facility] [id number] [facility] 00:[facility]:00 00:00:00 [facility] 2022-02-11 2022-02-11 Travel [facility] [id number] [facility] 00:[facility]:00 00:00:00 [facility] 2022-01-29 2022-01-29 (TEL) STLC STLC [id number] Co mmon 00:00:00 00:00:00 Spirit - [facility] 2022-01-28 2022-01-28 OL DIG E/M STLMLC STLC [id number] Common 00:00:00 00:00:00 SVC 21+ Spirit MIN - [facility] 2022-01-25 2022-01-25 (TEL) STLMLC STLC [id number] Co mmon 00:00:00 00:00:00 Spirit - [facility] 2022-01-10 2022-01-10 Office Aracely [facility] [id number] 12:30:00 13:00:00 Visit [facility] 2022-01-10 2022-01-10 Office EL Aracely [facility] [id number] 12:30:00 13:00:00 Visit [facility] 2022-01-03 2022-01-03 [facility] Percy, [facility] [id number] 07:54:07 23:59:00 Encounter [facility] 2022-01-03 2022-01-03 [facility] Percy, [facility] [id number] 07:54:07 23:59:00 Encounter [facility] 2022-01-03 2022-01-03 (TEL) STLMLC STLMLC [id number] Co mmon 00:00:00 00:00:00 [facility] 2021-12-17 2021-12-17 Office Aracely, [facility] [id number] 14:00:00 15:00:00 Visit [facility] 2021-12-17 2021-12-17 Office EL Aracely [facility] [id number] 14:00:00 15:00:00 Visit [facility] 2021-12-10 2021-12-10 (TEL) STLMLC STLMLC [id number] Co mmon 00:00:00 00:00:00 [facility] 2021-12-06 2021-12-06 OFFICE STLMLC STLMLC [id number] Co mmon 00:00:00 00:00:00 VISIT [facility] 4 [facility] 2021-11-21 2021-11-21 (TEL) STLMLC STLMLC [id number] Co mmon 00:00:00 00:00:00 [facility] 2021-11-19 2021-11-19 (TEL) STLMLC STLMLC [id number] Co mmon 00:00:00 00:00:00 [facility] 2021-11-19 2021-11-19 (TEL) STLMLC STLMLC [id number] Co mmon 00:00:00 00:00:00 [facility] 2021-11-19 2021-11-19 OFFICE STLMLC STLMLC [id number] Co mmon 00:00:00 00:00:00 VISIT EST Spir it PT LEVEL 3 [facility] 2021-10-24 2021-10-24 Outpatient DARIA AGUILAR LAUREN [id number] [place] 04:35:00 04:35:[id number] [facility] 2021-10-17 2021-10-17 (TEL) STLMLC STLMLC [id number] Co mmon 00:00:00 00:00:00 [facility] 2021-10-09 2021-10-09 OFFICE STLMLC STLMLC [id number] Co mmon 00:00:00 00:00:00 VISIT [facility] PT - [facility] LEVEL 4 [facility] 2021-10-01 2021-10-01 (TEL) STLMLC STLMLC [id number] Co mmon 00:00:00 00:00:00 [facility] 2021-09-27 2021-09-27 Outpatient GOGIA, MHSE MHSE [id number] 07:32:00 23:59:00 [facility] 2021-09-10 2021-09-10 OFFICE STLMLC STLMLC [id number] Co mmon 00:00:00 00:00:00 VISIT EST Spir it PT LEVEL 3 [facility] 2021-09-04 2021-09-04 (TEL) STLMLC STLMLC [id number] Co mmon 00:00:00 00:00:00 [facility] 2021-08-21 2021-08-21 (TEL) STLMLC STLMLC [id number] Co mmon 00:00:00 00:00:00 [facility] 2021-08-21 2021-08-21 OFFICE STLMLC STLMLC [id number] Co mmon 00:00:00 00:00:00 VISIT EST Spir it PT LEVEL 3 [facility] 2021-08-20 2021-08-20 (TEL) STLMLC STLMLC [id number] Co mmon 00:00:00 00:00:00 [facility] 2021-05-21 2021-05-21 (TEL) STLMLC STLMLC [id number] Co mmon 00:00:00 00:00:00 [facility] 2021-05-21 2021-05-21 OL DIG E/M STLMLC STLMLC [id number] Common 00:00:00 00:00:00 [facility] 11-20 Spir it [facility] 2021-05-16 2021-05-17 Outpatient [facility] [id number] Memoria 18:45:00 05:59:00 [place] [address] [facility] 2021-05-16 2021-05-16 Outpatient GOGIA, MHSE MHSE [id number] 12:45:00 23:59:00 RONALD [facility] 2021-04-05 2021-04-05 OFFICE STLMLC STLMLC [id number] Co mmon 00:00:00 00:00:00 VISIT [facility] LEVEL 4 [facility] 2021-03-08 2021-03-08 Outpatient STLMLC STLMLC [id number] Common 00:00:00 00:00:00 [facility] 2021-01-29 2021-01-29 Outpatient STLMLC STLMLC [id number] Common 00:00:00 00:00:00 [facility] 2021-01-17 2021-01-17 Outpatient STLMLC STLMLC [id number] Common 00:00:00 00:00:00 [facility] 2021-01-03 2021-01-03 Outpatient STLMLC STLMLC [id number] Common 00:00:00 00:00:00 [facility] 2021-01-02 2021-01-02 Outpatient STLMLC STLMLC [id number] Common 00:00:00 00:00:00 [facility] 2020-12-04 2020-12-04 Outpatient STLMLC STLMLC [id number] Common 00:00:00 00:00:00 [facility] 2020-11-16 2020-11-16 Outpatient STLMLC STLMLC [id number] Common 00:00:00 00:00:00 [facility] 2020-11-06 2020-11-06 Outpatient STLMLC STLMLC [id number] Common 00:00:00 00:00:00 [facility] 2020-10-03 2020-10-03 Outpatient STLMLC STLMLC [id number] Common 00:00:00 00:00:00 [facility] 2020-09-28 2020-09-28 Outpatient STLMLC STLMLC [id number] Common 00:00:00 00:00:00 [facility] 2020-08-24 2020-08-24 Outpatient STLMLC STLMLC [id number] Common 00:00:00 00:00:00 [facility] 2020-08-17 2020-08-17 Outpatient STLMLC STLMLC [id number] Common 00:00:00 00:00:00 [facility] 2020-08-11 2020-08-11 Outpatient STLMLC STLMLC [id number] Common 00:00:00 00:00:00 [facility] 2020-08-03 2020-08-03 Outpatient STLMLC STLMLC [id number] Common 00:00:00 00:00:00 [facility] 2020-07-31 2020-07-31 Outpatient STLMLC STLMLC [id number] Common 00:00:00 00:00:00 [facility] 2020-06-26 2020-06-26 Outpatient STLMLC STLMLC [id number] Common 00:00:00 00:00:00 [facility] 2020-06-20 2020-06-20 Outpatient FERGUSON_MILDRED AGUILAR MEHOP [id number] [place] 10:21:00 10:21[place] [id number] [facility] 2020-06-15 2020-06-15 Outpatient STLMLC STLMLC [id number] Common 00:00:00 00:00:00 [facility] 2020-06-14 2020-06-14 Outpatient STLMLC STLMLC [id number] Common 00:00:00 00:00:00 [facility] 2020-06-12 2020-06-12 Outpatient STLMLC STLMLC [id number] Common 00:00:00 00:00:00 [facility] 2020-06-07 2020-06-07 Outpatient DARIA AGUILAR [id number] [place] 03:50:00 03:50[place] [id number] [facility] 2020-06-01 2020-06-01 Outpatient STLMLC STLMLC [id number] Common 00:00:00 00:00:00 [facility] 2020-05-29 2020-05-29 Outpatient STLMLC STLMLC [id number] Common 00:00:00 00:00:00 [facility] 2020-05-08 2020-05-08 Outpatient STLMLC STLMLC [id number] Common 00:00:00 00:00:00 [facility] 2020-05-04 2020-05-04 Outpatient STLMLC STLMLC [id number] Common 00:00:00 00:00:00 [facility] 2020-04-24 2020-04-24 Outpatient STLMLC STLMLC [id number] Common 00:00:00 00:00:00 [facility] 2020-04-20 2020-04-20 Outpatient STLMLC STLMLC [id number] Common 00:00:00 00:00:00 [facility] 2020-04-19 2020-04-19 Outpatient STLMLC STLMLC [id number] Common 00:00:00 00:00:00 [facility] 2020-04-18 2020-04-18 Outpatient STLMLC STLMLC [id number] Common 00:00:00 00:00:00 [facility] 2020-04-17 2020-04-17 Outpatient STLMLC STLMLC [id number] Common 00:00:00 00:00:00 [facility] 2020-04-11 2020-04-12 Outpatient [facility] [id number] Mem[place] 14:07:00 04:59:[address] 2020-04-11 2020-04-11 Outpatient GOGIA, MHBL MHBL [id number] MHBL 09:07:00 23:59:00 [facility] 2020-01-26 2020-01-26 [id number] Common 14:36:00 14:36:[address] [facility] 2020-01-24 2020-01-24 [facility] [id number] Common 13:45:00 13:45:[address] [facility] 2020-01-19 2020-01-19 [facility] [id number] Common 08:40:00 08:40:[address] [facility] 2020-01-18 2020-01-18 [facility] [id number] Common 15:20:00 15:20:[address] [facility] 2020 2020 [facility] [id number] Common 14:44:00 14:44:[address] [facility] 2020 2020 [facility] [id number] Common 09:39:00 09:39:[address] [facility] 2019-12-24 2019-12-24 [facility] [id number] Common 17:41:00 17:41:[address] [facility] 2019-12-21 2019-12-21 [facility] [id number] Common 09:20:00 09:20:[address] [facility] 2019-10-27 2019-10-27 [facility] [id number] Common 14:08:00 14:08:[address] [facility] 2019-10-13 2019-10-13 [facility] [id number] Common 11:40:00 11:40:[address] [facility] 2019-10-04 2019-10-04 [facility] [id number] Common 08:00:00 08:00:[address] [facility] 2019-08-26 2019-08-26 [facility] [id number] Common 09:30:00 09:30:[address] [facility] 2019-08-25 2019-08-25 [facility] [id number] Common 11:51:00 11:51:[address] [facility] 2019-08-24 2019-08-24 [facility] [id number] Common 14:40:00 14:40:[address] [facility] 2019-08-17 2019-08-17 [facility] [id number] Common 11:59:00 11:59:[address] [facility] 2019-07-05 2019-07-05 [facility] [id number] Common 16:00:00 16:00:[address] [facility] 2019-06-22 2019-06-22 [facility] [id number] Common 11:53:00 11:53:[address] [facility] 2019-06-22 2019-06-22 [facility] [id number] Common 10:22:00 10:22:[address] [facility] 2019-05-24 2019-05-24 [facility] [id number] Common 10:00:00 10:00:[address] [facility] 2019-05-05 2019-05-05 [facility] [id number] Common 15:44:00 15:44:[address] [facility] 2019-05-04 2019-05-04 [facility] [id number] Common 15:20:00 15:20:[address] [facility] 2019-04-27 2019-04-27 [facility] [id number] Common 17:18:00 17:18:[address] [facility] 2019-04-26 2019-04-26 [facility] [id number] Common 17:24:00 17:24:[address] [facility] 2019-04-20 2019-04-20 [facility] [id number] Common 08:27:00 08:27:[address] [facility] 2019-04-12 2019-04-12 [facility] [id number] Common 11:00:00 11:00:[address] [facility] 2019-03-30 2019-03-30 [facility] [id number] Common 14:00:00 14:00:[address] [facility] Results Test Description Test Time Test Comments Results Result Comments Source POCT HEMOGLOBIN A1C 2022-08-30 21:36:00 Test Item Value Reference Range Interpretation Comme nts HEMOGLOBIN A1C (test code = 4548-4) 7.9 % 4.0-5.6 A Lab Interpretation (test code = 17680-6) [facility] TUMOR [id number] 14:04:30 Test Item Value Reference Range Interpretation Comments ALPHA-FETOPROTEIN (BEAKER) (test code < ng/mL <10.0 = 1094) [employer]eder ID - TRUNG BCBC W/PLT COUNT & AUTO [id number] 13:43:39 Test Item Value Reference Range Interpretation Comments WHITE BLOOD CELL COUNT (BEAKER) 11.2 K/ L 3.5-10.5 H (test code = 775) RED BLOOD CELL COUNT (BEAKER) 4.96 M/ L 3.93-5.22 (test code = 761) HEMOGLOBIN (BEAKER) (test code = 14.3 GM/DL 11.2-15.7 410) HEMATOCRIT (BEAKER) (test code = 45.0 % 34.1-44.9 H 411) MEAN CORPUSCULAR VOLUME (BEAKER) 91 fL 79-95 (test code = 753) MEAN CORPUSCULAR HEMOGLOBIN 28.8 pg 25.6-32.2 (BEAKER) (test code = 751) MEAN CORPUSCULAR HEMOGLOBIN CONC 31.8 GM/DL 32.2-35.5 L (BEAKER) (test code = 752) RED CELL DISTRIBUTION WIDTH 13.6 % 11.7-14.4 (BEAKER) (test code = 412) PLATELET COUNT (BEAKER) (test 237 K/CU MM 150-450 code = 756) MEAN PLATELET VOLUME (BEAKER) 10.7 fL 9.4-12.3 (test code = 754) NUCLEATED RED BLOOD CELLS 0 /100 WBC 0-0 (BEAKER) (test code = 413) NEUTROPHILS RELATIVE PERCENT 73 % (BEAKER) (test code = 429) LYMPHOCYTES RELATIVE PERCENT 19 % (BEAKER) (test code = 430) MONOCYTES RELATIVE PERCENT 4 % (BEAKER) (test code = 431) EOSINOPHILS RELATIVE PERCENT 3 % (BEAKER) (test code = 432) BASOPHILS RELATIVE PERCENT 1 % (BEAKER) (test code = 437) NEUTROPHILS ABSOLUTE COUNT 8.14 K/ L 1.56-6.13 H (BEAKER) (test code = 670) LYMPHOCYTES ABSOLUTE COUNT 2.10 K/ L 1.18-3.74 (BEAKER) (test code = 414) MONOCYTES ABSOLUTE COUNT (BEAKER) 0.47 K/ L 0.24-0.36 H (test code = 415) EOSINOPHILS ABSOLUTE COUNT 0.36 K/ L 0.04-0.36 (BEAKER) (test code = 416) BASOPHILS ABSOLUTE COUNT (BEAKER) 0.07 K/ L 0.01-0.08 (test code = 417) IMMATURE GRANULOCYTES-RELATIVE 0.50 % 0.00-1.00 PERCENT (BEAKER) (test code = 2801) BASIC METABOLIC [id number] 13:42:01 Test Item Value Reference Range Interpretation Comments SODIUM (BEAKER) 139 meq/L 136-145 (test code = 381) POTASSIUM 4.1 meq/L 3.5-5.1 (BEAKER) (test code = 379) CHLORIDE (BEAKER) 98 meq/L 98-107 (test code = 382) CO2 (BEAKER) 30 meq/L 22-29 H (test code = 355) BLOOD UREA 16 mg/dL 7-21 NITROGEN (BEAKER) (test code = 354) CREATININE 0.76 mg/dL 0.57-1.25 (BEAKER) (test code = 358) GLUCOSE RANDOM 130 mg/dL 70-105 H (BEAKER) (test code = 652) CALCIUM (BEAKER) 9.6 mg/dL 8.4-10.2 (test code = 697) EGFR (BEAKER) 94 Interpretatio n of eGFR (test code = mL/min/1.73 values Stage De scription 1092) sq m Result G1 Leola l or high >=90 G2 Mildly decreased 60-89 G3a Mildl y to moderately 45-5 9 G3b Moderately to s everely 30-44 G4 Sever ly decreased 15-29 G5 Kidney failure <15Repo rted eGFR is based on the CKD-EPI 2020 equation t hat does not use a race coefficientEsti mated GFR is not as accur ate as Creatinine Taylor daily in predicting glom erular filtration rate . Estimated GFR is not appl icable for dialysis patien ts [employer] ID - TRUNG BHEPATIC FUNCTION [id number] 13:42:01 Test Item Value Reference Range Interpretation Comments TOTAL PROTEIN (BEAKER) (test code = 7.8 gm/dL 6.0-8.3 770) ALBUMIN (BEAKER) (test code = 1145) 4.2 g/dL 3.5-5.0 BILIRUBIN TOTAL (BEAKER) (test code 0.5 mg/dL 0.2-1.2 = 377) BILIRUBIN DIRECT (BEAKER) (test 0.2 mg/dL 0.1-0.5 code = 706) ALKALINE PHOSPHATASE (BEAKER) (test 102 U/L 40-150 code = 346) AST (SGOT) (BEAKER) (test code = 41 U/L 5-34 H 353) ALT (SGPT) (BEAKER) (test code = 31 U/L 6-55 347) Dry[facility] Feeder ID - TRUNG BPROTHROMBIN [id number] 13:24:39 Test Item Value Reference Range Interpretation Comments PROTIME (BEAKER) (test code = 13.6 seconds 11.9-14.2 759) INR (BEAKER) (test code = 370) 1.11 <=5.90 RECOMMENDED COUMADIN/WARFARIN INR THERAPY RANGESSTANDARD DOSE: 2.0 - 3.0 Includes: PROPHYLAXIS for venous thrombosis, systemic embolization; TREATMENT for venous thrombosis and/or pulmonary embolus.HIGH RISK: Target INR is 2.5-3.5 for patients with mechanical heart valves.Urine Culture, [id number] 00:00:00 Test Item Value Reference Range Interpretation Comments Urine Culture, Routine (test Final report A code = 630-4) POCT HEMOGLOBIN [id number] 18:42:00 Test Item Value Reference Range Interpretation Comments HEMOGLOBIN A1C (test code = 4548-4) 7.7 % 4.0-5.6 A Lab Interpretation (test code = Abnormal 48676-6) [facility] [id number] 18:40:02 Test Item Value Reference Range Interpretation Comments Case Report (test code Surgical Pathology = 104) Report Case: [id number] Authorizing Provider: Trina Perez MD Collected: 03/08/2022 09:24 AM Ordering Location: [facility] Received: 03/08/2022 02:08 PM SERVICES Pathologist: Pinky Kumar MD Specimens: A) - Biopsy, Gastric, Bx B) - Polyp, Colon - Transverse, cold snare DIAGNOSIS (test code = f0uetAEvKFVfe8ljJNMmnB 3220) FuZzEwMzNcZnRuYmpcdWMx IHtccnRmMVxlcGljOTYwMl ichdTbJLThsPEgH1Ndgqwa ZKrwQQ4nTK2ytKxpxXVtgA OgKPCnClEoo6aye387wNNl d4oxEVVJfxvjhAj6cTbcH4 4zq6X3CzceJ48faWOnZFV8 ZAOlITLuoHFtJUWyTRE1WX LzzVVhI2czNYChYL1zwkfi LJitNHyqTZBueYH6DXEjqM BxF7RtOHFiHYkqPYMfxyd6 PfPaXd2jfHOhcYodKSbvVA WsVQOyDUftTOMxUsFsFQ1c N5KXKAHTEDXAMX8ER5cpiA CpXN7eDSTKIBKTIltSFPeQ BWVICYSCAZrAE0WPNCEHEh goPHyTNHviDZFzNMYiUG9G IElOVEVTVElOQUwgTUVUQV GXSUCLEBdoADsLUGdCC7vN OH8IZNVKTkIXRi3GFEYVVD VOVElGSUVEXHBhciAtICAg Pz6gUCAAPYVARwDEBYGDBT WZRP8CWLRQNHwCPY2FH2MX SVNNUyBJREVOVElGSUVEIE 3FPZWFLSTOQmTnY3RPRF0c pCGvXSNkteNWNsWYP3mOZq jrYDOLOlADDFFODWESP1aR BgHHW1tXARobRG6QEHYCA5 SUCFnzgNMpNB2zRAKNM0qB ST8GYEMXEVJQE1XIGCBAVD cJJI3WLKdUFYbvYl1qOPuH C57YW3GVUnTLSPTAR59WAB 9VUyBPUiBIWVBFUlBMQVNU KRDoL9vCBorSY4xfHHYkIA HsAQ04aERfeMkbGLechjVl ecN3HBXxQIN7PX5aqhNaUI BixJHklFtslqRgJBcuz6St MCgsHNMeQQ2jrEvnAXFzAA 4sHVQpC0mqwT7nyaj5ZyTq JFZaJcA7RMDuwyP6Jop3AP ZzHPsxh4ehh2UbLEWwENu0 vVhvYtRwYVFgq2dqzrNtGo OrKDTfFLZsXYNniCJrH630 l3nrp0idmxXnjNU2AZAjNC P5NSinvqNxmoE5ETmlpXTr GaU0DWnmtsOrLSvwjkHmis OtEes5YUWpA152GKT1jLzp x6buRMW9COFbNACwHcOdKo 5gkNFxV971AWFdSKRRXXMw oAs2MZIlbpDylsYbeMEXg6 15P263m1aqFLVgxoOwmKkC fhjti1lxM259VXJfuNPtzl NgTdLpNMYhpYOlsCC9CNMd BW4iyvaxVGsgIDwaKDDivl D5TKFobSIrJ5KiZYDuUG4e mfmiAWY8SRgqPAXvWHM4Av QnSKFxq0Rluzd3CkOzfk8q rj75UOA5q5UatEwlYRX6ZT B8DvRhRy8daDLhYFWwCZ7g OlYfwIBcMYLatg68wKadGJ vsDGS3GVZuwkJec3Trs6vo IoJrbbEmJ6emK4FoDDMtMZ QoSIXbEwOaoxPdy5Bax0Tx nFJcxPa9g1prSIJeUEDrjP jhx6yjESN0TAAarKVfH2yy fS3wREZuUO9zdgrpc1zwBL ltYHwlQNQacOX1lyY1EUCf lRZlY5YxcN4mXOHaKVkaCM Jcmcb0AzLcSd1zyTGhbWki MFxzYmtwYWdlXHBnbmNvbn RccGduZGVjXHBsYWluXHBs YWluXGYwXGZzMjRccWxcbG FuZzEwMzNcaGljaFxmMVxk DvXfSYTmJYaiD4mrUaGdSn LjEtw2PLIhwOSnZPBySxr6 BRPrnYMsQHWGdRybpP1vJP UlwGjxsX8skSV1MXRqonCc hJENeX7nBQNVtM4wKxB3Pi EwBnG8CYy8ObKeyKZuqI9= CPT Code(s) (test code e9vibQGkVEGdrDG0UtBcDM = 3357) Ffq2twg1GkcLWltFJhIJzc oRCwinMzto67tSV7vZ53LA 9mWEOcAaH5GABfpuG2Mbs6 DXFpGSQuoQIaC839g2sql6 gcdkEyrME7hZkkFGSxcrls BnJ5CGmwYDWclbkvOZw2QQ ptMZTfnJK7PIIkdZJbA0Ef RTDqFR3lmyg0VHY4ZQyaYR HvHyV3DLHemBCwQDVisVfe MKveg229WTC8TtWuPAUgxo IbwTsshP9kIzInHWV3HBTx NSBYIDJccGFyfQ== CLINICAL HISTORY (test c4ctwIGqFKHucUF3UbZaOJ code = 3357) Rcy0muf5DuyZCqoMIjFLqe yLTspwThat24hIL4cE77QC 8lHIGwMwK7NQFnumH5Wex3 AICuPFVurTUhG899x2oht8 eylaAhsGE4TCDnUAUdQ9Yf AB3sXGVouRDeE13mnGOzRB I0NEUgBYYppGGdWAWaADB8 KQCgpORcL8stEGBdKV6sdy xaQWywMNugLJRfvTF9QVIc zNNbG2JrXZHqPTkqOIAsxy k4GuHbBx2pqMTdkOppWHci YXJkXHJpMVxwbGFpblxmcz EbIGKvTZIWz87grZAzMSUx BKHpkmhxOBObs8z6oT22vX BdrWQyQTkgFwmdmP1upHTu lPHxUNNaFOFigClrR7MpyI D1WMFkN8QrMOZ8gWBeVUSr fmZEjMRpyO1htLQfd1FbrM u7YNVee3o5tA15yHRcm4Ar tAEvMMC0wbSaNEHzPpseHD MuTMDwhVfgXNQyhfDtx5Na xrE6jAAaOYqcMWPzT2FoYA ZeKWBxkmIrk7lnrsYpLB2x ZXJccGFyfQ== SPECIMEN SOURCE (test c9wdlDGlENTgsKM3YeDuGK code = 3377) Yln8iuo5XxtGHliMDeTBre zOQcisPbej39nUA5iT08HL 1qNLCwXxC2MSXwwhV3Buh1 ZJRtZAHyaIAyQ614d0bip3 gvqbNxpVR9uMzzEZOqzhle HlS4NKswTBLcejbkMXc1CV hvJEYtsJY4VIYvdYPeZ7Yz GNFkHH4eycn7ATL0EDlwHO HkJoE0QYBbdQFtXBQfzQyb HSqjb476EPX0HtKcEZNnzy QxnGbnyP8eQlLkIESXPaRh JowbsIJ2YHGqSLR9bnmmLT ewgqNhAp1oQAWpkNuiWHLq o5wiiexseNPkwiH7RDYsNM xwYXJ9 GROSS DESCRIPTION (test u9zdaGSkOXOzyFKPNWVsV2 code = [id number]) qptsFxTEHtwWQsJ3Lpldfi IGdeOX8uFE7djPufgZSrkG PqXU4SLKDzViXaLEKwdNRh hhClAgMdECRruJAzgAC6QI NvHJ9htjxzJAosKMyxWYZg ceY0PINdvBZlP2TlVCXlNX 5ddyxgLYU9MNujnN4pmyNS EdmiZk8tkVDpvJepZzWgJl NoYXJzZXQwXGZuaWwgQXJp STc7sQ0WVzahAJC1NIDFVw bwZDKhTY7Ex2yeIAUbuGDy DSY6MQdeiPSrETKjJLEqPJ w8XLUhTCpmuJAkZK8fdAce UnetkAfde9ZscEIuAXtqYB IyWAEzGLuuJIPoJS2GVuRk XFM5EfY0QRLbCBm8QHa0EJ 9WUyAiICAzMDAzOTQxMSIg HQq3AVjeNF9MXPNbTWGcWE G9MrR3CBA6ZLOhKGIiMxCc XGYgQXJpYWwgXFxmbCBcXG 7pzOzazYIwidYZKcEWjR0i h5alXGgox5BziPKwFHWeaa ANClxlcGljTmVzdERvYzEg DQpcbHRycGFyXGxpbjBccm luMCANClxsdHJjaFxmczIw FILoNTBvdUGuaM7ngfAbtn ClSXVibJHaENXwsoZlw3Iz YZwggmQlFTCgzFdgPPJ9eC KfAGKiALBdWJNxHH54YGpI NHMgbmFtZSwgbWVkaWNhbC ByZWNvcmQgbnVtYmVyIGFu SGOvV1OjsEMiDfTtrK2rj5 uwTFDnAQYqv79iwPQ2iuQi ImS5MJOjms7pqS1nVO08G2 2eZB4up4JoliPnSNFjd9K4 ZSBmcmFnbWVudHMgKGZyb2 6hQQ2vFFJyLPSePGZbYqWi bSBpbiBncmVhdGVzdCBkaW 6iasGov62cYiXQzIDdz2If L7ayAT6qiMGnm6UrfUz0jD XtNZmhRVJvtP7yCr7avZ74 aG2zLMFnsQUkECLga91xiK 7nQ0Ueb5M6jCSxACXuPDOq ciANClxwYXIgDQpLTCAocm VzaWRlbnQpXHBhciANClxw bGFpblxlcGljTmVzdERvYz VwuVwvvQ50WLPxaKGtBVI4 UR2aAADypcetDVRcRAGkQF Q9XPpqrZ54wXFdGRBtXYQa rZVkdK0Pv7jlMVLkoXVwKP V7HHwmlKZlAZJlBDBcJOwk PpKaF8SLCRNiXvj8OYc5Dl EbXFq9RSlhW8CPRDHnAVKs QVM3KAGjDkJ5OCn2NDBJXo 3hKhWdMcF1LLQ9ICR0TOwa IFxcdCAyIFxcZiBBcmlhbC HuMNGsBQinkfI5IKDhEEFa lDcrvB9kPg0lED8vtLDsZD AeaP1bOB1xSHHbesD5ARCd GE4ipWBxZC5GTIKgrKLBMU T9OD6bMODLIrovnAWvNHSw fLhzGHoknS0hJA8HMAc4le NoXGZzMjAgVGhlIHNwZWNp jNNoLLldKAZlM6LwdyDuVI dzTDVelz3isFefCJksKrVo bGVkIHdpdGggdGhlIHBhdG gablKrV0N4lvOiWP7tMVMy OVJxO2LkAIEeP95oPOQgwI 5hYIUuIB8yQOS1trSud2Xp cnNlIHBvbHlwIiBhbmQgY2 6dw3kqmTQoo0WkBSE6LZ4p lLxwoeUwdKHnl1XbL755HF AkIJR4rKLdaGNwTmHkA95i dpFvPFycKlVpD33hcG8uY3 KaOWKen1DeENhyPZ7lwU7v OD8kVNgwQPLeXHIckIMeIF wsCRC3Xn0abBGlNEIlrxY9 t5JjNHSnsQdxy2iiMpYwgF q2dcO2nB5jLYcxYMYji8Tt dHRlIEIxLlxwYXIgDQpccG FjLC3RR9yoIJPki7fdBU95 RFoeGIJuDMrvaPqprC7iDZ TkV97zb5RSm2JdMGUsQZuz a8cwpFgbt8TqzOAgMAdqDD VpwMCnANetsM7jWuSew9ok mPo3AFlxsnC5GHLcft8CDy nddN7eLkKix5verWc2XITV XglcmeK3g1zziHjgc2DkfQ ZsAO9LAk9= MICROSCOPIC DESCRIPTION c1fwbDJqAWNiqWV6DqWbFO (test code = 3371) Qgn3eze2LxiCYlsXCoMIuz eOOdotFhms68gSC2bE99HE 3hIHZvRnU6UIJtjmX1Zji1 YQWzVJJzsOGyR557u6yer8 pdjrXwmYU2oIlsVPXgoewz DlZ8TTyoDTFjnnelXWf3HQ nbETMjoQV5XQXspMUmU2Qm QLTtCD0ysuc1TYD1WNqzCJ RkRxV1ZGXoxSWkSBOltDzu XAkfr064KTA0VeAhWZPstb VgkJkzeE9lBmSbLJAGVCTf z3TqMDTnJAOhot5= Gross assessment was [facility] performed at ([facility], = 2777) Department of Pathology, [address] [place] [address], Technical component was [facility] performed at ([facility], = 277) Department of Pathology, [address] [place] [address], Professional component [facility] was performed at ([facility], code = 2773) Department of Pathology, [address] [place] [address], [id number] 18:40:02 Test Item Value Reference Range Interpretation Comments Case Report (test code Surgical Pathology = 104) Report Case: [id number] Authorizing Provider: Trina Perez MD Collected: 03/08/2022 09:24 AM Ordering Location: [facility] Received: 03/08/2022 02:08 PM SERVICES Pathologist: Pinky Kumar MD Specimens: A) - Biopsy, Gastric, Bx B) - Polyp, Colon - Transverse, cold snare DIAGNOSIS (test code = [id number]) FuZzEwMzNcZnRuYmpcdWMx IHtccnRmMVxlcGljOTYwMl qbvaFtEKMlwTWzY1Beshzt XEusRG2rQR7kfAcptINilL PlQJEtMxLxg9fpw510gHDs u4ewPXDVydonqNg9lLshE4 7wg7J0QuyqU87uoBZnTMR3 ARAlETZchGWaKCWvHCY5UW FthUFyB7ztQLZwIJ9smlhw PYgmLPsrFUAutSF6HUKofM WmG5QuNDPsEThoOOXowaa5 LmEnWd6tfZGzmFpzTLqvGT UeAYCaZHlaFYKqChStPH6m C7AXGAPAJHUNBU7MC4glqR LxPK1cIMWADBKNJweLZHuG USMHYTESVMvZT8XMKGBKKb lgKBwEWQybKLIiSJBpZZ2G IElOVEVTVElOQUwgTUVUQV EWOHEOIGceHCeSUKhKJ5rM LS4PJDSKDbMCRv9SONSNQN VOVElGSUVEXHBhciAtICAg Gr5wTRWGWXIVJcGFNLIJBK KKRH6WGEWXFCnRRO0QZ1EB SVNNUyBJREVOVElGSUVEIE 0YCZNRKIHKKxXpA3DBNQ6g pENeVHAmdrUCEvNTO6jZMi inMGTTZyOCABLVEKGJY3wW BpBGH1fELVkxAF0LWPOWM0 UCXMqqcUVoMZ9iNDBHC1tW ML3ZAZGTRUQZN3EUWUDHLL uGTF0VYJjQZFnkHb3kCNeN D04UL9YBEqJUJNKDU68MGT 9VUyBPUiBIWVBFUlBMQVNU XSPwJ1hTCgtEW6upCIFdOY UgDU59fAMzzEldBHeahqAy wuO5RBJcPQX8TQ4rhdBoHA VzwBYnjUpfapQnLIswo7Md DLztUFKgHP6mkYabJXKdFL 2hFRXnL3qviB4sypl7HxOq EABzWsJ7NTJaeeC3Uyc9JR NqTBusj8gkq3VbWBDfKZu3 eKgvAtNkJQWop8emlnCjQe XcQOYiQRCrCULenALvQ078 p5lhi3ymhsXtoGC5GAAjUR I6DIilusRjydG4QCjhoGAk RaW7SNhiilWxTSfsbvFpwg HsTbs4FADqF255IGM7bTvv z4coDZR7WDOtELKtZoCwSp 3bmBEhE897NAZgWDMZIHAn xCw0FTNnvzPlwtXunMJJl5 21B120i9wxAEKwdyZpxDdU usemj5iyF402FNEdwZFayg MlCuJpGGRipFYlwLC4YNCz KS1vhjnnIKwrFTgnSPNrkx Q4OVIpqZFaR1AbOOZoXX1b natoNWV6OBamNZJyTSF4Cz CpYGYbl4Tkxhn6XmIuuv9w pf83YNH6c1NnzNpeAQY3GS Z2JdAgNp5cxZKfJPLbJG9m AaEbeZCoBRZpgu41tJtoNO gmBRU1BJVdqvLne1Jab2uq OxIotlGzR4vwN4KdTUFbIH ExAKQePtCwiwSrc1Dmn5Gr rINcdGk1d1siPNZqHAEtiB kcs7tdGIW1IQNvtMXdR5vz pD8dXZNqQK9llzqoj4rbOI qtJBxnELBsyUZ9kvD4YIAv mGNmW5SxzR6aPTTsBZbaRU Kfyoh1MiLkYb8wjHWwaEsk MFxzYmtwYWdlXHBnbmNvbn RccGduZGVjXHBsYWluXHBs YWluXGYwXGZzMjRccWxcbG FuZzEwMzNcaGljaFxmMVxk BiHwTHWsRXqnQ2qnUlUjZx CyQtx2GAMbzVMlMLXoOnn0 LMGlkTRfUKCUxCgvaQ9cDW QxiOpapU2krDB4YVYfbyDb hOTSfL5tUHXBcD2kJbJ0Wd QsTqW7YEr3VnPtuPSvoC5= CPT Code(s) (test code [id number] = 3357) Idd1esr0DrzBWujSHoJKjh jWDmrxVnez60uJD1eC11HJ 2zXYAfVfI7DCDzzbE7Ova0 FLCgLYPlfUVxB204q1hpn7 njqxIbtJF6pLscAOWdkmev HaY0ZUlgXWKgugcpZFk3UY pmYWIsbIN4BIMsrTRvR5Mi BGXvJR2cuna7OBJ3HSewLE OqOdY6CKWzsALnJLRyxQox FNgup944AIO3KkAnSNAuho FdlEhtpB9aQzDqDBN3WUPi NSBYIDJccGFyfQ== CLINICAL HISTORY (test g5nbvMXtQDHbsTZ6BuZqDO code = 3356) Cvy4uev7UsqYGbpFAdXUsp iXOytnSvgy43xOS8gY61SE 7wDFIqYnK7AZRdxtD7Tzh7 VJFlBVIblQFwV851r6hfy5 gvooJqlOD2BBIsHOXoO3Wq JP5kBPEacCTaK93xsJCxHO S2CEZlLPGuyLMoFYKcQJJ1 DPEwbYJzT8gkMXHpDS9cov gsQBxeVFhaYEXnlAA9ZBBo mFUvE6MkBUVmPOglHZGidr s2WdMoRn6dlZRfbHnrWExf YXJkXHJpMVxwbGFpblxmcz LqSWDuSPTGu16nmCUtJZOc OARtnccaZYYsl6r5vA24gT AclEUbVVwiFhbunW0siPSl wKBqFFPwUMMwrLqaR0UprS Q1BKTnG7FmLUM2xSGbRKXs mfGPzASmlE4loRJbr0EgpI v0EFJjh0a4iS94dZSsi3Qc iBAlKPH7asQaSFKsQxacNF UyDRYbhMbqZYXrmmNrs3Wp jxY3cJRiTQgcORWiJ8UsJR BiGMTygtZeb5hymcYcNX7q ZXJccGFyfQ== SPECIMEN SOURCE (test l0pvgYTfJEYshLD1WuOkRY code = 3377) Ixn4tzf1MbvFWghZWzBPyt jYVhcxMnva45jQK5rT84PR 0iIUDcGfC7PMMfjqP3Qnl2 AUYyUCCicBIdW185m1lgg0 spqlZckDZ7yGjrVMEdxcga TrD4TEjtOMEyaihjLGm5FB shJAKhfFX6RFIstKLgP1Mu FAKvWP4miuf0KTA8MKyyAT ShBaT0ACNesDBhVISjvLhy AVksg231IXS9PpSkTWLtry MrjVslqL7jXcBoCPYTTgVc ObsoaCE6OYEvBZU9phwdVB cddfElVh0mDEIqqRusWONn n5xcienboBIhbcH5MYQyWF xwYXJ9 GROSS DESCRIPTION (test h9olgPJiPJIbrZXQKZSnZ8 code = [id number]) yznuEqRGDitBNuK8Bqzbab FTmuRF1aPR2qvHeomDZcyQ KnCC9NAVUlJgEmICXjbTWt lxAgKxQkGHYrzZLooXN4PD LcGH8zwmqbNOqaUAinHTVs ccR7MCDffFXnY7DhJLBpMA 6yfsvqEEL9OVedmQ5pafIC MoayFs0mgZFyvPiaAnAmNs NoYXJzZXQwXGZuaWwgQXJp CQm2pZ2XCnoiBCR0ZIRQBx raRYGiWF4Vz9ffUAVljINp LON2UJjkoSZkDYXbVMCmTM s5SZNsERrmoXChQI0hrSeb FaygeDfbx3VanHGjDJycQT ItBAAwWVbiGPEnCZ8LBjXe QTQ8WoC8QNBzALr2ELr1AG 9WUyAiICAzMDAzOTQxMSIg CNr7QPflAO4MKVPbGAVdEH I0EcX9YQR3AOIeCVGcCvJy XGYgQXJpYWwgXFxmbCBcXG 0cuJskwUUfjtGOQzIMlU6v o3imXYsai0KboALlAVWvml ANClxlcGljTmVzdERvYzEg DQpcbHRycGFyXGxpbjBccm luMCANClxsdHJjaFxmczIw VGAwBPKvqWFzwF7iaoYxib QaSNYvaUIsDSUionHms1Dc AOomcnIkSTZodFzaELA1zF MoPARpFMEpKYRhKA72GLmO NHMgbmFtZSwgbWVkaWNhbC ByZWNvcmQgbnVtYmVyIGFu PDRvB5OaaPRhZnNguN2za4 yrSOAyCQGfx96zfWW5hrSu KdZ8TYXchn0jfH9mOV50M2 3iWE9wd7DqllCgLAHir3P6 ZSBmcmFnbWVudHMgKGZyb2 7jJV4bVXBxCRZkSPGmWqCp bSBpbiBncmVhdGVzdCBkaW 0vczGxg48sHeMOsBYtk7Cv V6cxET4doAZqt4VbiCa5uS ZmHSckLPOqgV4nBg0ygP96 bE8sVCJjkPBkWREsn05fkP 5zU4Rrd9M6aRBmNIIyJOOj ciANClxwYXIgDQpLTCAocm VzaWRlbnQpXHBhciANClxw bGFpblxlcGljTmVzdERvYz CdbInmwN15LCGfgCIaHYZ9 RL3lRCXqjwvxGEDgGKGyYR J3VJzjrS54wHPoOFLzWABc oQEyoN5Sr6dfQFYvlGYvJS R7JYuaySVhIOBfNUYlNOhb EnOeW1JGGEAmUvu5XZg0Mp FcFEb7BBunX7QXREXyMXEw VUQ1KEGiFeQ6GAq6ZEMJYd 4kTyMfJtV3ZUQ0PVY4HTlb IFxcdCAyIFxcZiBBcmlhbC VmXSCfOKdrmfP9HTFkVWAi gNszdH1rTf9fMI8nvXPyFU UzzW4yLQ6pYGPnwqT8ZLXe UX7qkRLhNJ8QLJCfdBOCAW C9WR1bTOBADoiatODyKRBp yLxtEJpqgX6bUA6VABd5fq NoXGZzMjAgVGhlIHNwZWNp uPAiEReiCXAjR0RglvTlPL suWYDgrw7bpKcvYBarGwYm bGVkIHdpdGggdGhlIHBhdG qwacYpZ4Q9qgIuHZ8pPDLj HUTuZ0CvXBAyJ15nQMBptP 3dKBZxTD4eLHP2plSgi1Qk cnNlIHBvbHlwIiBhbmQgY2 4ld7tnaZMfx5WlGWK4GT7f wHepuaFbfLPld2UlH044VW GjGXM5oUDnpVFnMxAqD13f fcDtNRtmLjQfP69agG1aS1 JhLJBom5IkPQygCT5yhM2h XX1gFFopZYFuXJMirHBpIN yjBVN2Wj6phCJtEZTixoO1 p5IsBSYhaCmlu0yjRbLilM v5kvZ3aB6fVElrRHCee3Qt dHRlIEIxLlxwYXIgDQpccG MpFH1OY3edZAYak7luGA22 XTuaXRUkJNabvXwznG5xGC HwP96cw0FEn4IzMBTqFIob a3olwNxya7EapQNpKIuwPG AryFOvDSdxgF1tAdIea3gb dAj1KLippoN9HETqrj8FFd vnyY6mThTsv5sybBv4DBKC OouwuzU1x5qfoMsav9WcsD FpOD5TJz6= MICROSCOPIC DESCRIPTION t3yixVUqZOBobKM1MlSnLJ (test code = 3371) Cru3pxr2BseVZmjOXiTGdw oDXrtzHnkg01rJW2zX30AN 4zBCJuDnO6TCTsczT3Obr8 FNAzAEEihEFfW648s3szi1 qgjkNfhKH7hLkfDRNpevrh GxB4DXrzBXYxbukfUDq1YP teKUDxlTJ8RJEblWKaH3Qk ALOyHG0jhmz8ZRP9GKxvJQ AxWhE9BULtgGYsYBEjdKin LJdtx028ILM6QrFgEHTocr YqiRsvrM8gCmWjQKQLWCYs m1SkNRKaRAGmfz8= Gross assessment was [facility] performed at ([facility], = 8127) Department of Pathology, [address] [place] [address], Technical component was [facility] performed at ([facility], = 2958) Department of Pathology, [address] [place] [address], Professional component [facility] was performed at ([facility], code = 2779) Department of Pathology, [address] [place] [address], [place] [address], [facility] [id number] 18:40:02 Test Item Value Reference Range Interpretation Comments Case Report (test code Surgical Pathology = 104) Report Case: [id number] Authorizing Provider: Trina Perez MD Collected: 03/08/2022 09:24 AM Ordering Location: [facility] Received: 03/08/2022 02:08 PM SERVICES Pathologist: Pinky Kumar MD Specimens: A) - Biopsy, Gastric, Bx B) - Polyp, Colon - Transverse, cold snare DIAGNOSIS (test code = [id number] 3220) FuZzEwMzNcZnRuYmpcdWMx IHtccnRmMVxlcGljOTYwMl wbgyYlXHPhgZOuE4Oytcyf NLvfJT2sWN7xqValgDAjyM VlQAFfVgWcd2drt520yPGd d8xtUAWZhcwrhCi3aWygR3 7pt8S5MghhC59xfBIkIUP5 HOQcTSNjsRCqTIAqLKX8ME GyqIKsY1ebGIXzVX8ybdak KWegHGswJGLinWD7JDCnnZ RsU5BjWUDyGIqvXAGdrhy7 WsCwJe7ywQSuaEtvPGayMA SlHTZcTVqpFUYmFvYpET9q Z0OGWUBYKGWLSM9UM0vvjM BtBU2qLUOHOIJIVqqKWZwO BBPWHKAPIQnCS3RKSAEWBj ufMAoDDNitONAuMCZoUR2S IElOVEVTVElOQUwgTUVUQV KLUOPBGSnlKAqWASjQP9mI SU6BPCVEIoKFIl5OWWHEQX VOVElGSUVEXHBhciAtICAg On5dJVEANHILItUGFBXSQV VBLW6BRZWFOGtAMF1HD0JC SVNNUyBJREVOVElGSUVEIE 6POKIQFVLRFaOkZ0QECE3u vWWbGKNossZPGuWCT2jNGs liVURNKhAMXBKMFZPPD5mK EeTCQ1oRJNpkCR9CIKXJJ8 OXLKiuvFDuCX4zFPTIQ8jW GN4KSHFFIUIKV2IWFIKRNU yNGX4BKEdKCPjqZx9uSDcV M90WV3TKItRPNYTDG51IYP 9VUyBPUiBIWVBFUlBMQVNU BAXaC2hPBaeTO6alOASdZZ XiQA92kJNmlVsbSEglpoLx esR2VUHpELJ2ZF5mlbRgVK RlsWWelDsekjNaQNfnw7Wv WLukTOZzZT9ieKgqESWrUG 0hUVLwN2jnrH2uyyx9TtZj ZEUsFgI7HIUkexP4Rif5EY NuMBdjr1zqs1AvPEXzUTw7 lMzpDbBlZPIbj9jrztAwNo QvSXFoZPGiLAMonNSzR833 u9nwe9npcnUczSJ2ZENbQA J9PXkffzHujvQ3OSvtxEMi QaC4DLsmbtCpKNjvqxPxuv DdDuw9WULwK614RRD9tNtb p7hnKRV3BOUkXFQlNvDzNj 4kePUaW821OHIfTHEVYEKq uQg7KEZicmNnkyIsmYCWb1 25D998u6yrFVMaivDnhJkR jqhkr6ujI952RQKjdELwag ZqFwZfLEJhnGLurFZ2JOIt PD4queqwAUizJOnmTHNvkp T2BTJplXGyQ9VtEVMnKM4o fyvtDOS9NLvxVEPnPNK4Su UjAVAsf0Wlekt9FkBjbo2w pr03CVF4w8LffKmoRZM9FN E2BoCvXv2zwHYiZNFeKN8x SsVyqSXnCOVjpq59rQbcZV teLSO4LELwjlWhj9Dzh3we LrIsevYuQ9spC0TeUNVmWG PuJTYiAmQfevXmt3Fyz8Ao tMHcfDm6o5aeNDVdHBKpdI lzr8bkJEH9OFFqnVFmY0my hV7mFWWbAE2zsibtd8kkAU ilOOqjKEHuyOM9wpN4EQCg rEIoB0EddC0mPOAqZXreLZ Dozst5RbTlEc1xxQFdhWiu MFxzYmtwYWdlXHBnbmNvbn RccGduZGVjXHBsYWluXHBs YWluXGYwXGZzMjRccWxcbG FuZzEwMzNcaGljaFxmMVxk HiQtMPDsJEloH5vdJjEjUh XyQwr0VFKmhORoDXTpDdd4 NJZhnGFxDPFDpVemrO4mNC HezNdxhY9wpVX9CZTttoTm uAHAiC7gBQWWmX7jXvJ9Pd EjLhW3WYe3XcZcxMGrlE8= CPT Code(s) (test code v3dquYWfWWFhjUZ3PyWkZF = 3357) Rhj6igf2JgwREeyJRwYYko dVEwrwIfmb37cEY8gU12YF 4ySVThWrC5WDUdhzS3Joh1 UYAuEGFouZYkW473f3sca6 fozpZawQJ2oQsvBDRadzyf QjS3AUbsCSCwxtvlOFz8MC cmMUPfiWI4DAWggDEtN0Uz VDDlWR2zxqb6JPR1WCqiKF RbTjX8IVNhjWCmBYFpvHwi QIwfr071YBG7LoEpVKRtmm HdqMhuaK9aFvZfGWT0BJJi NSBYIDJccGFyfQ== CLINICAL HISTORY (test r0mydNXzCKRelBC0DjAmPH code = 3356) Rwl9hro2HgpYKtsGZkUOpj hBJkrfNgce58pWJ3dX83AW 4kVSFpXaN1GNArfmM8Cbt6 TMGqWGDjbKGyJ365e6cnj8 dwumOflQR0BNXhRSKfN0Vf DX4wYVVrdBFzF23qvUDaYB M7ZOYnZOGtlAFlHSOxGHW1 UYIhoWViV7itMWGtLI9aas mwJLtgJTjlTNRbzYY8KTPb fYOhY6QmHNUnVMltJLLsdy k3IfImJq6dwFLdmFzgXKib YXJkXHJpMVxwbGFpblxmcz EgXIPpYHOGx08yhBKyGGKz VUKibwayGAWpn9m9kK87dW EoaTFuARqmRcxgcM8zlMDk cZYxPYBuDAWzaTieX6BasW I9QFIiI8AiKVT3pTBpJYSp rxGTdPQriV5phFLaa6ScvX v4WPGyc8r3aM33lUHiq0Nz uFJzDQL1grVxTBDzEypoGR VgPZJknCxdXMVrarMzw6Lj trV3hXRxDYpfESGdC4YgRA HaGOHjrpCia2cjlwAoQG4p ZXJccGFyfQ== SPECIMEN SOURCE (test j3jauIEpXONdvKS6TmVfAS code = 3377) Lzm2zsi8CfyUQmqHQuMVjf tOKwnrLkes93rUO5eW60NZ 4uUNEsGaP9DVMqxrY5Grf2 JUKxKUJarNYlF187g0bwl9 xqkyBgpEV1pSgfUTWucvxo EbF6PAbyQQKipyohSJr4EZ wcENQzwUB5HJYrmGFbR2Cw IJOsFH5qxax0NPR7JLofZE HkTjF6GDSumGQlGMQmaFpz QMnor518VKA4UbFvLYJoxw JixRpybE3kFkYbEEJSVrTs FqnlwDI7RCYvOSV4gxwbCK mzzbImPg0eSEZdtFclRLGq w6ntkrlsqATafbQ7OCXfZB xwYXJ9 GROSS DESCRIPTION (test w6wznLJhYQJyqJNZDJUrX0 code = [id number]) pgarPgQFCzrPIpF9Cdmcny STcoGZ1sYZ0wmYltnMUyaB LwRE3RCCYlEqIvJIJiiRWt ucLuQhBbDWNyeHMryHY4EJ BrRP8aekelXCcyGJqzRONz pjK7QBSyvGGlT3NxAPNaCO 4ezschRXW9GKghdP6gvlCT NucrDb1ztELddLvtVoOyNp NoYXJzZXQwXGZuaWwgQXJp CAf5xH9MMfcoXBI9XQZYGo stFKAiUX6Rp8ytVINhuYQg DXZ9ZWwxhBPaXENrBRMjCG p9NQZgSGzqiCUlAN9pePmu PrvfoXbhc5NpqRNxISxgJM CmDQCuZGjmUKBhWZ6NSiOq DEU8YzU3RIPvXNu4SBf3GQ 9WUyAiICAzMDAzOTQxMSIg MKd9XFwaQT7ONQHkEWXzZF A9MiC1LFN3TQCuEYPcYmHp XGYgQXJpYWwgXFxmbCBcXG 6smKritQAqncAYQqSLyP4t y4ieESfcj0MejJRvRVTlxu ANClxlcGljTmVzdERvYzEg DQpcbHRycGFyXGxpbjBccm luMCANClxsdHJjaFxmczIw CKArMYRhvPFqpN9herYpxp RjMVZprGYoFCPdveRsi1Xu VSoyshYhPMOpcAfoJEV6nL NaWPNcLZOmCZKjNP65AXvW NHMgbmFtZSwgbWVkaWNhbC ByZWNvcmQgbnVtYmVyIGFu QSQqH3VvwNDtUhXssH7sl7 biLCUsXXZzd28qvPI4bpWb TbQ3ZYNyph7amD2nNL01U0 9yWR0km8JrwfRaPJVcf9M4 ZSBmcmFnbWVudHMgKGZyb2 7aOO2mHHVbWQLaCMAoAwSo bSBpbiBncmVhdGVzdCBkaW 3vprGas02sGrGLuMUrj0Ac K8igJN6rhAOkc4CmbAp2eH CiEKoqVDDmbU8uSm9xtL74 pW7vIVZmgWIyGFGbq97roC 6aK3Wcc4Q2qYVeZYJsDHOt ciANClxwYXIgDQpLTCAocm VzaWRlbnQpXHBhciANClxw bGFpblxlcGljTmVzdERvYz BwcAbqaQ18JVUytPAyXWS2 HE7yOPXjhbzfYLCqSAXsAR H6RNsuuL31lCSwRNBiEZHd vNLseY8Pp3cxNIGfpUErJJ V6CWzgcUAdVBKhTKHoVBpe TiJsA0PKEVWsUag9CBy5Ys PbRSm1QQthH2CQAWKxGUNb EOG6ITJtDsV3OUc3FTXTCt 2pKiOnLsC0UNV1OHJ2IIpg IFxcdCAyIFxcZiBBcmlhbC VsVWGaOIqlbnF8AXUrBSMx lEhktJ5nPh9qTZ0arPHcBN WyuH2xSD3nWOZetgO2IGQi FH7ibXWsXB5JUNBnsNUPAD P9GO7ePNENEmrdgCEvTBUg rPzaQUbpaF8sTZ3RRRj2kk NoXGZzMjAgVGhlIHNwZWNp mIFjTEfuJDGeH0LcjhTnLN beMKLotb7szGhmUDhtYkQv bGVkIHdpdGggdGhlIHBhdG ihctEyO6U7veFeBD1eNNWu ELOwS5RuWHZtV70lBHJfbW 2sSSXkEG2rJGX1ciYgu1Oa cnNlIHBvbHlwIiBhbmQgY2 8tx4nbsNOin7HqBKZ9US0p qHuqbzSczHMnl0HaP953JT YjHMX6xNJewCGjCkCnD29s zrZmWQzbVdWhI99whE8dT6 ZgXRNsj2UpTRnlSF0neL5e YZ7qYPznZZClSKVpbWDjSZ biUAU5Vg1moJVvIAPnwkK9 z9GkDDHadIyzz9evKrSghC u3vtQ1rE5dZOydBJFyq6Hz dHRlIEIxLlxwYXIgDQpccG CdDU5NY3cmZWMrh1sbUP44 TUlbNNYsOFsdpCuvaB5aRV OcP16pv3ZLm1QiBISgZVca v6gujDxsv0QilZFhUAilNN AcgYDxNBuukB7mHlAox9py hRf5GJieerP3CVHvsg4CSo nenK5jZkCik4befRr4XBDB IoburiB8x0hxlPskc9RtoL JmMR9APb3= MICROSCOPIC DESCRIPTION g9clsCJqQFEshTI9EcNfSK (test code = 3371) Lfk0sip8XfgYGzvIMyAUlc fKLcmoCbnl45iRE9oQ07II 0dXSUmEdK0XDShelI6Yoq1 QVAiFMPdsDXdF647f5onc8 gnbvFooXI2vPapTJRziqws KqG8DWcnGCVbtadkJFg1LO jkPYNhxLD1LSYyeVKdZ3Qi FXUoCB7qoig9UXG5MUecJY DvUwQ8GIOwuHQvSAVcjYtf OVovp280FYU1LiZnFYYjdx OthJgslU7cTiAhDHZMSDKv u6LvZEPcQCEkxz6= Gross assessment was [facility] performed at ([facility], = 2777) Department of Pathology, [address] [place] [address], Technical component was [facility] performed at ([facility], = 2778) Department of Pathology, [address] [place] [address], Professional component [facility] was performed at ([facility], code = 2779) Department of Pathology, [address] [place] [address], [facility] [id number] 18:40:02 Test Item Value Reference Range Interpretation Comments Case Report (test code Surgical Pathology = 104) Report Case: [id number] Authorizing Provider: Trina Perez MD Collected: 03/08/2022 09:24 AM Ordering Location: [facility] Received: 03/08/2022 02:08 PM SERVICES Pathologist: Pinky Kumar MD Specimens: A) - Biopsy, Gastric, Bx B) - Polyp, Colon - Transverse, cold snare DIAGNOSIS (test code = [id number] 3220) FuZzEwMzNcZnRuYmpcdWMx IHtccnRmMVxlcGljOTYwMl zsqcFtXEQrfAGaW3Njpkjz DTvmDH3sLD4xvTttxALdtP OoXGIfJnYay0bld235qDPi t0wxPRDSudluvVh2yTsmA2 7gq9I1LceqC93ciNEdUWA5 QGOaUITjhISeKDRzBWN6EZ VkiIHwL4paTUSxRI4tmbnu RQtdHPvhFGRhiVK8SXFpwO OxE1SyNBJiJXorXQEvdgq7 VbHlHa0bfVXceJyrTWcwEB DiNQHaWWzoPJJdEoLoSA2z B4JSEVDPIEADNE2NS6vuiM XpMH0eBTQWVPNYAmfUVGqT UYCIFYTRDAiST1ZFUQIJJr vxQBuJUSdvPSVpBWRfEX4I IElOVEVTVElOQUwgTUVUQV AYZSGXSObhPVcPIGaJA3zI CB3OWEANYdOSLr7RELFGHY VOVElGSUVEXHBhciAtICAg Dq4tDYJVPHFXVlWKTEZHIT TTQV2JJQGTCArIHE7JC3FP SVNNUyBJREVOVElGSUVEIE 0YJUDDXREEBcTuV1LGGQ9l nHIuAWGgfnVBSrMIG3uFPw lgVXOSCtEBAFIEJPHDB9cX PxZVL6nAGAelWD1PNTGPB4 WNBQeynIYdYG7yRGXKV9rK KS0AEDAZNNNZZ1TINVWRWL iPNY6YFJuFIJjyFh4tIWnF A53FC9EGZiZMQXJHU28MCL 9VUyBPUiBIWVBFUlBMQVNU MFQrR0sOBuoFX1vqJMBxBS LfGH88gEEglLdtYOxpbnUz gzS2QGLhAMV1AE5xrmZcZB NnnZKzmYzfaqSsLLmpr9Jz LOueFORcME7oaTiiLESwPQ 0kUQUeW4hboN7fsoa1HfZx WMUrMyW5TSGhxrO8Kpt9CU OpWQdro8bfq5DrFLIqVRu7 vVzfXeIkCMGul5ijaaPzPo GsSUZoNQSvSDNyfJDvQ992 t6ubj9bqetObsVB0WIUnKJ M6ZLgrldCwfxW7ZSlqxWYo HkM3LIugooYbKVsembBkxj EcLlc4QDMxD209GIR7eNgq a4cgQXN5QGRuCFPlQcZuJa 4gjMEuX016IREoPACFCIUe pXc5YYMefzGxwdRuyOZLi3 59T928n2rpCNQrgsUdnPkL mwgzg6mxH278OTFfqUZfrt JcDiVdYZNjzVNvbBM0DFVi JB8xvrsuMOdcSMpzZUObae G9DUNsgNSpK1RfHGKmMN7d grdbDRA6TCgqTVCpQVL0Hp SvYTZxa6Nfwdq9OjEdsj4s me92QKL0w6ZzbWofAFS7ZB L5KrHpVs4mlZTnWXCfID0f DpLqkYShKHLwhe14rPcuFN pkETG9QNPvcdTws0Vxu2tv JmSuxlXaT2cjL4PkDAYaST WcEILoEeVyeqToh5Jac4Eh yWKmmYp7q7ubZIHmKHJgnP ike3weYGH1ILJhzPDaW4qb hH0hJHKtNL6cafctg8noNZ bsAKcaLTMcvUW0raR4VRKn wOBmU5WclV2tRUDxNQadLN Qgqeh9UeRyIg2kpOJtdJde MFxzYmtwYWdlXHBnbmNvbn RccGduZGVjXHBsYWluXHBs YWluXGYwXGZzMjRccWxcbG FuZzEwMzNcaGljaFxmMVxk VtExYXUpEAjtM8krXdRoMg ZuZmy2VQJyxDFjYDElOdn0 KDApfVTkYMOEfDjtfR4pWF CewNlkuI6ijLR5YNIvdaRv eRWNtC6qDYQWfE7mTzS6Iz DuMxD6DLl4HyIdeXJzdX7= CPT Code(s) (test code z9oqgVQsNKKzcMM0GuRrSC = 3357) Ivf2gpe7NveUYpjDBgKOil nESeevSwmp03zFN6eI21IA 9gMZTpAyW7WFVjicM0Jop0 PWWmNVLacRUwY280d9fgx7 nxnjIohJE0sRaxLMNhjgjq RjW7PPniHXHyguhzJSk8SW ulCGSxqHW8IUYqhODzJ2Ba XGBdIC8kqzj8SWB0LIklKS XrHkJ6EARtiTKsVKNjaFij JPmtb546HMO6AcUqIFBzcw DhlUihhY8yWeTcYWL1EZXy NSBYIDJccGFyfQ== CLINICAL HISTORY (test v8jjuBZvCXCspYM5TdKcYT code = 335) Kwn1dwz2JuyYVwiIOrIPrj mAAmqeQsrw43uXU9dO95CG 9jRMKaRiS9COCsemW2Due3 DGQhTSTlbNUlZ508v0mxd9 cnzfHuvWD4YYAnSXAoD2Vj EU2xZQQmrCGrT87rhZYlCY P1BXXuMSAubWDiUWToORN0 WAYniOIeP8bqZDUfQU4qtu ybCEedTJhiOOJtgDO2ZJYc fFVwK8SiOYIzNWnnNWIugx w1LqElXo5cvKFrpBgfACqa YXJkXHJpMVxwbGFpblxmcz YgWWKdKQCFn19cfXDsMKDe QSUaoxblZEUoi2c8nD68eX CkkRAqRXulSzrppV6zfEOl cTDqMGXqUPEvdPmhP1AbyM H7POQwC3XaAEK6xTFyXANd ccOZmGNbzH6cnDAjh6HgdZ k1RRCot0g0bM43uQQzp1Im gQEbSQM2dnVpTWOiPnfeLO LgVCMrbEzdJEFfvaGnb6Ll zkH5cJPuVSclULRrK4YdGF UoWDKyalQuw3fhfxFgIA2c ZXJccGFyfQ== SPECIMEN SOURCE (test v9koyZGcGYInoUJ0TcYjUT code = 3377) Ffy5pkc6OgaHOcrDYvMBaf bBAzggBjdr72lLY2rN31BA 7cNCKrDbG5YASpjoV0Tnj2 PHObYVToaBHiW454b2ual2 nuiwGnpHE0nIjgZPBiciiq YkP7ZIhxHFPoesyaERp3KA rrBBXqkMG6YHIwiRJtA4Qo WMOtOH1hynj1ALT5OQfzQA LvWrA6JEMofLUkBOPqzDrg NWwbp333FPM0CsDmNEEwqe CneAewjQ6bUbOxWFGYAdKw WnlfhIR4WYJcGKJ3hotqKT qjvvTaRu0mWTPjtAfpRUBi c5gxakmquVAifvI8BGYpDQ xwYXJ9 GROSS DESCRIPTION (test h3hysLNdLEOjoCJEZMDrS7 code = 3403818093) duzvPdXHKquDYpF2Zhwpnc PMhcNK5tYU8ayWracDDhaC HaRK5XUGQaKwRaEYFakIQa erVhObRpSXTdqJOqgWT4LV XqPD3mihseMKgwAHoxNZFt uoH4HWUxpYDqE7FvBAQiLR 2qrgzrZPT9YKpmfC9ncwSP ZnhzCz6gyQBduIffYxXjYk NoYXJzZXQwXGZuaWwgQXJp MLg6iX0LPgnyNIQ1EHSNAc ivSUWkGF2Qe0wtMHEufKEt NSI6GDhykACfOAHfJEHtUA h6FGRkJEyewTTiSA0lkAkl JvjiyFkrq5EziOIwQJhrCS YfCGPyCVbnUPCrNP2LJgGe HOS9DeK9MLIdMOh7MUq2AJ 9WUyAiICAzMDAzOTQxMSIg ESv5GWlgAP9ODBRlVFXzYC U6FxW5HCG4ERNzPPDpUiVv XGYgQXJpYWwgXFxmbCBcXG 7tzYqnkFCpchONBoLXhD5y e8zmBDhbg1HkhHEbBCTyyw ANClxlcGljTmVzdERvYzEg DQpcbHRycGFyXGxpbjBccm luMCANClxsdHJjaFxmczIw DEOgREOgzCNieQ5visWfit WcVHYwgUEmLAHknjZim4Qy DBzqjgDuYGJpvZkuGWI8sR FmYCUwWQMaBWKjDD10XCgP NHMgbmFtZSwgbWVkaWNhbC ByZWNvcmQgbnVtYmVyIGFu CBIaV5ZonGYmIsZztJ3ch9 poWGAoPBFks17jwZL9hpAx BoT3JGUvuj7mkR9eGL06X2 8tLZ5aj4YzenNoPNMhc8K2 ZSBmcmFnbWVudHMgKGZyb2 3qTO1jFPEuHKWnGPVhZuAn bSBpbiBncmVhdGVzdCBkaW 9fxpGkk50qHpEZyBOfq2Zj E5aaLK3mcHKsj1PvuAn6pL YrTRjmVMKrwF3zAa5kdE07 lW4cKOPwoBFySPShh88ooZ 3jY4Kqm7E8bLTmUSCeSTRz ciANClxwYXIgDQpLTCAocm VzaWRlbnQpXHBhciANClxw bGFpblxlcGljTmVzdERvYz BkmFztdD29RFVesHZhPPL6 EI6fATYoubkiYWRlDCZeMP I0VHuovT19wSBdVGYjDNFv oVEluJ6Xx2caPFSazGSgQS Q9BGitzMFzGPAmCBCtOYwz VtWuN5QYEKIfSkz1AFo0Hr FuHLb0MHduN5WYIVMtEOSa ALB5JBOfUnV7OQm4MCCKCy 4tMtYgRyO3DDX9IPM2HEpm IFxcdCAyIFxcZiBBcmlhbC BtKMIgTAgdneH1FXUsLRTx iTiodH3uUb7eCV0psUKoLK TlcK8lUE3bKVMbbqX2YBRt CF1buONwVN4PBDEjcUYJJZ F9LO7iWJGIJyqjbUJhIMMp eWyrAYnuoS8eIC7PFAu6cy NoXGZzMjAgVGhlIHNwZWNp jDEkQLidOFWvA7XlozIdBU hjIZAkmh9flEsdBSnwIyDu bGVkIHdpdGggdGhlIHBhdG ypefFjS0L6riBsHM8qQNTk NCQxB2UcXXYmW30hJXCztN 8nIWHgSE9zBVS8omMbw2Tm cnNlIHBvbHlwIiBhbmQgY2 1hd3kihNHxw2ZtNBQ5JJ0h qBszysQjzZLzo8TwW235SU XcSBO5jIZdxXTzNiAtY73b siKmWZwuStTaL37exP4yM5 JqMZEpx2KwZSuuFW9hbR3z BP3tPGweDKHzANBzvUUkAL bwAHM3Ma5evJBvESAzlrX2 g3BuCRFpvEand5baJpTlaV g4heX6vN3wIHvoMKZrv8Af dHRlIEIxLlxwYXIgDQpccG HfLD4BM0hyQWGmx3usFF62 PPvqSWVoHMeiqFtvuQ7zAU FzO80cu9TZi4HvOMBvDWvu l6khiIddl5PtmFIcMFmsNO DuyAWqTPvxkI6uGdXnf5bq gHp3GIghmkT6LRMnxx8GIp mojO5pUhImp8mkpFc6KWCS FuvslpB6z6wriLard9MykO WaAB3RBh7= MICROSCOPIC DESCRIPTION v9uvqDFcUFEioHZ5XiHiOD (test code = 3371) Nkm0sja9NtfXVdiOXzMZdt rZSmjoByun36jBR1qL09QL 0fRYMfUoV1MDLtfqY6Dgp6 DHVdSNCxmANgP065m3mtt1 bvpqJjuWU1eSaeGILvackx PnL9MWwpSPJniqaoRXo1OP rkVWCalEM2YZQgcTWpH8Vv URVoHT3odqw0NLT6RXtoZM HyQvW7DTTjzWDeNYUdzQqe TLpxq676ACU5RxCyUSLavc VskMetcS9rPuYqBMIKFXWr a9IcBVQoHZExlt2= Gross assessment was [facility] performed at ([facility], = 2777) Department of Pathology, [address] [place] [address], Technical component was [facility] performed at ([facility], = 9432) Department of Pathology, [address] [place] [id number], Professional component [facility] was performed at ([facility], code = 2779) Department of Pathology, [address] [place] [address], [id number] 18:40:02 Test Item Value Reference Range Interpretation Comments Case Report (test code Surgical Pathology = 104) Report Case: [id number] Authorizing Provider: Trina Perez MD Collected: 03/08/2022 09:24 AM Ordering Location: [facility] Received: 03/08/2022 02:08 PM SERVICES Pathologist: Pinky Kumar MD Specimens: A) - Biopsy, Gastric, Bx B) - Polyp, Colon - Transverse, cold snare DIAGNOSIS (test code = [id number] 3220) FuZzEwMzNcZnRuYmpcdWMx IHtccnRmMVxlcGljOTYwMl kkilOpSJDtuPJfO9Dotsur LTzuLE6mAS0akXqcsYHuhI ThOPXhAnJkw1vvz555jMUz v3obDSWFlycdaMb9iRlnS3 9lm0G2AqsyE60aoDRbLDJ2 BYFwTCCttLElVPVdVKR1XM RtiLHfI8gzBWZvUF3sskwj BHtiUNmyRRScxVD4MMNyxD KxR9WxPKTnFQerXMHmtgl5 RoXmIx8sbQBaqAfwHZneGI PnJJCnXEurCWRvOoHdCK4g Q5GGQHNYWLCHLS2JW1niwW OrCI7zMURVIODTTmlHERqD SSBPYMVTQQzRR5UJEJYSWt ceCIzKULjcNBMoVUJvSN5R IElOVEVTVElOQUwgTUVUQV SVHGJWMIkfZPcVDDrOP7wK JR4JEDOEGoTTYr5ECNVUIO VOVElGSUVEXHBhciAtICAg Vf3sKOKKXZSRFgPXOBHLAP HDGH2MMUOKWQzBRT0EX5SX SVNNUyBJREVOVElGSUVEIE 4MDJEKGNJUYxLdT3LCHP0n gZJsDFDwcdGOJgDXQ6pIIv ldWEGDNrJVCUDCCCAZI2dF MqUMV1rBNFfuSI7VSJSKY2 KLRBrivRHdCN0gMICZS0nF JN8GIGYTUXLBP8TVGCWZXR tBAZ3OKUsHGHieFt1fHJlV E64MS8POLwUEORYFZ79HSS 9VUyBPUiBIWVBFUlBMQVNU DNBzQ2kFAcbQV8flQRVgWN EhNR34hFTchErvQPgdnfFt yuA7HFCeHLV2UA1rwjEuUG OxaFVlkVvltxYcWUepc9Gx TVtuSKEpNB0qcLdjZSMyJX 4kQIIoI9kasY3wdcd6MyOc JJGbPqU5SYFakcY3Hci8ND BqEEsaj8tch0CnSHUfBRd2 kWcePhIqVYEqn5lqozTvWb VdEEZkCLLtDSVjxUDiO730 h7tfo9uhkyUmuPO1RPQkBR T1JRyhhnWvqjC6OWtnyZBz JnL9GCopekMkYPxjtfThxn PpYgi7JOOsD258HAV2qOhu x3beZOS9LLUjJKIyPtVyDo 8tjFMrU124LRVyLDYATMWl eBt4TDOsdkAjwyBfhZBIk6 92P788r6hbIRUpfeYrfBrE cloyo8ycD855LRHzhNBxkf FlTdUsZBTbyJHakGL5JJBw KQ8lusilVWxdNPrfJFJxkc G0QTLprVOxC3UzMALeMI6y ikxgKWR2TYcqRAHtJNK5Jw ArOWOcp6Vfuqq9HsLkec1q li42MIY6d0WwsIqzXVQ0GC A5RwRqIv6mbWNoRNWaVX9v UiGasVLjFFDdae58uPjxEO ioVLD8HOEzulEsz2Dii7iz OzEbirQmL8efY8TwZVXiDT ItYIZpGsFbdnDos9Zni3Jr uKKmyNo7s7lrPCJsMVGdnF bjz8yhXAI2XLWaqWTrS7fh kF7jSUXkXV0ccaijn4ynJO fmXTgqDTLffKG6ytN0KTMr qDPyO5VpkP0nFBGlQWdgVD Orvvb3XzZxIb2eeTGxsDxy MFxzYmtwYWdlXHBnbmNvbn RccGduZGVjXHBsYWluXHBs YWluXGYwXGZzMjRccWxcbG FuZzEwMzNcaGljaFxmMVxk JjChUACbTRifW1bmToUlJd WmHgb1ITXxyWNoGJDnLqn2 UTPerXWqZEWWvWaocH0xLU XdhWxleM9hnWX3KKEyljYf qFXMvG3dEKSGbX1gLvK4Dr QrYkM9FLi1NkGvmCWyfD3= CPT Code(s) (test code n7zwyKKcTCVpxJN7WoAwYY = 3357) Bsj2gpr3HceAWmzIExTXfu jZEhqyRprm34gNM5pV35VA 9hXBVuUvA4GFIjrpR6Hbw1 UIPoHCKfrCQaA202x9avo7 dzxpZjwVI7yXplHEDyduhw HpV7MByxPDFdhvczZKw4FR gwRPHnwKV1QJMpsLYoH1Xf LVArPR1ssnj8CRL1OEddIW YlTnY0UTJtnPYmSISyqHjc NYkab286BXG3LsGgPCAcnc TkcHybsZ8aNeSdOOC0VYDh NSBYIDJccGFyfQ== CLINICAL HISTORY (test x1orgUEsCYIukBS2PpAwQA code = 3356) Eym7cek0NcsMEgzLIgPTiw cBKokgSizo01aUA2jY14RJ 3mDNQxGtA9WSXkhrV2Ogx1 CLHbXRBmpIWeF395d0sqh3 eylvZwaJU0CPBlWHIiT2Ii TY4pLXAmkMWaZ00vaGQnMK Q9CMZpESBxbZXpOKTbNSA1 QTInsEQzH9khYKKtEP6tkd zfSJddQNkwXOOgtMM7PSGm hYPuC7QvDRBuSSfpSEGbep f4HbGkLg2qfYPhkIgnZGnt YXJkXHJpMVxwbGFpblxmcz TwNUItTHZUl40wwPKoUJGj CZXwmexfUMCrx2u9zX37nM EjmANkWMhhRjbmlJ2glRAu tHMpVUDlFILyjBczY1FkmZ K4OPKeD4JtXVC8tDLvEFHr bdXGsSBuiO2eyMQve1RlrC x2TAKdg4i6zV38zIIue4Up bAUiLHM6hbZjHVSaHalnRC PhHZMzoJchBLKsskMhu0Uv cqL7yTXgTWepJUDhF2EtND RiFSTyhcLlp8gslwUdWI9m ZXJccGFyfQ== SPECIMEN SOURCE (test r0udyAWjGUArhTS6IiIdIA code = 3377) Fdq0kbn9DveSZmbIBnPNnw xEKgafAjsc69bCS8cE83WR 1oSVBoOrN7NYMuxeX9Bss6 PUVqFHRrdVIwH937e2pyx2 yatqKbuFO5aNcpKUPdptpr XeR3THyuOQRtiogxIDz4NU kgNFJiiMX5JCWyfVXcG4Se BHSeFG3sywh1XEV2XNdiMF VrApT5SOQfvBEmUQChdXzv UJdvm179HOJ8GeQdUPNvaf UenWkihJ1mHyKxCRRQJoCb ZdskhRG9MHNcYGE4hbyoJY mvpzVyLg7dOSWrqKmzTTWo a9pdwddbhLTmofS5AXSkAT xwYXJ9 GROSS DESCRIPTION (test q8oqhYNhTIGynZEXHCJfV4 code = [id number]) cuhjYuZHQinHQwX8Rrhzum HKcoEJ0lNK0ltZiirRDjqO RzLR5PTTFpQoEqCKBewVZl qnRbYvLeKIHqeVQfuPE4ZZ FoTZ7fpikyNOevWDbvQXDt lhG8MYLkgPZpX7RgGRUsVD 8kzrouYMP4RCcvbM1qtjNO ZvspOv2uwAXclKutSkPsUk NoYXJzZXQwXGZuaWwgQXJp AXw1gK0QIgsvPWT0JNPPKm guDCOjDW7Ju7quTVUpiFQm AHQ4PCuvfFJlHFFcXDUpYZ y7FTIcBKkjsIKiIW5smWnb FaenoZzia4JfqLPlFUofWO OaKEFfYFnuIXUbBK0FKnIv XEJ4LuJ6ZHIpMRu2LCq8XW 9WUyAiICAzMDAzOTQxMSIg FUv3OWgpDF2XFKCgHBFtRA S9LeZ5WVT5NLYcXZYuTjVu XGYgQXJpYWwgXFxmbCBcXG 5bvVsfpTGkgyUBFoFGuG0i a1khGSelv7UbjECmAEWsla ANClxlcGljTmVzdERvYzEg DQpcbHRycGFyXGxpbjBccm luMCANClxsdHJjaFxmczIw GJLpYNQbhLHbtG5dusIask EeONFlqBGvDSVsqsTua3Sr IXonvaEwXSQjoKuvQZB9hX ZgGQYuLFFwUGBvYO86ETuE NHMgbmFtZSwgbWVkaWNhbC ByZWNvcmQgbnVtYmVyIGFu PEAzC3VxjYWzNiUzhV0yw7 qeEDNeMHXos64ycCC2uoAi UnG4OELhei1qjH2qEL18M7 7zHV9ze2FqyrPhUPKho4X7 ZSBmcmFnbWVudHMgKGZyb2 0lYJ6lWGSbJVCxYVBvKxUf bSBpbiBncmVhdGVzdCBkaW 4ipbBgn72cAoBAgCLow6Zo W3doSD8csYFbs7XqyRg3iT GbYOvuYTVevN9oCo4gaP50 uA2oZOIvqWMcVNHvp84ypP 5vL8Baa8X6zAFePRUjYQKw ciANClxwYXIgDQpLTCAocm VzaWRlbnQpXHBhciANClxw bGFpblxlcGljTmVzdERvYz VkxRnwoC17HMTudVYnPXO9 HW8wUUUablxtKBGyAAHbQC C6HJkbuS59oPIiXYTyPQJd wATstH1Gf0ydVGOfoOVlFB Q5QSajsWJuUGWsNJZfDFfp SnCdD7OSZTFnApv6LCc4De WgEFd7QNyyT6INJSKnJAHq VPA2MQJvUmH6DOt2ADTPCl 1yEuLqBlZ9OLX1PWY8JJft IFxcdCAyIFxcZiBBcmlhbC CbWRFaFZaqlqX1PQTeOFRb xFotqK3eGb8lEV4keXRoYH GglR4aMC6oGOVfyhG9ZAGw UN5hkWPrZO1WZBGvxMWRBO O0AV3mLTCRQpbimVKoEZTx hBxaJNsktA5lMH6EKJx5jt NoXGZzMjAgVGhlIHNwZWNp uSKfIMduIGBpQ9YketOrDD oeDWLsrg7jeZnwQVauDvNs bGVkIHdpdGggdGhlIHBhdG jjagUxD2X8qnUoQP4zITOc CKPtW9ViGJBoG40yGJFjmI 9fRBCpPA4gBXH0riMys4Wn cnNlIHBvbHlwIiBhbmQgY2 6xm1rqxUXjd5ApMUL9SW3r zHymurJeuIUis0VcI987DL NtDJX1qLIlpSLeAuBkI23g ecPdQGilTpBjX62vcK1aF6 CrQBIjw2MyWXfeBB2ysQ9u CL4lTRviOXIyFJZwmEGmNE tmKWE5Zx4yhPLcNEKndyA7 q9ElWGKeyThcu4hmDeXzkB f6dgT3mN0oCNzwLNLvw4Yt dHRlIEIxLlxwYXIgDQpccG QcAH4FY0rpMKAay0iiQE08 JRnsEPJwLUxmcYnguA6dIE NeX37vp9MFc3WhIUEpAAwe q3ulaVkwd3IhbEMlNWwfKZ WxwUPmKUedhE1aXgRxw3gj dOs7QGkfipN6PDUssl3NWm sawU5sYxAyx8ukaYg6SBTN UxjqpuZ5c1xrjYsqn9NvdN FsCO6HKb2= MICROSCOPIC DESCRIPTION v6gzuCOqWUCtnVT2OmXtSQ (test code = 3371) Aui9smd6IgoZNwdVDmFPrr oPEkvgLaxr44rTR7gT55ET 8zIZFtOeY8QXShfeJ1Jii3 ROYdDQPtcEJuB575x7scg4 wwdwAyqTL2zSxlAOHdfiaw IhR6PNbtRZZeprdpASs1US lpAWEodPW4JYLfyWQsB3Ia MJMaZG5wsbr7ODO0CEgeHN WmFcB6NPJsiTKnRSKqzEhn BPvge400HFU5DlUhHUBdtk YxkBkzaC4lVlDzAQUNRXKp c1WrDXQnWFFmju6= Gross assessment was [facility] performed at ([facility], = 2777) Department of Pathology, [address] [place] [address], Technical component was [facility] performed at ([facility], = 2778) Department of Pathology, [address] [place] [address], Professional component [facility] [facility] was performed at ([facility], code = 2779) Department of Pathology, [address] [place] [address], [facility] Hospital[facility] [id number] 18:40:02 Test Item Value Reference Range Interpretation Comments Case Report (test code Surgical Pathology = 104) Report Case: [id number] Authorizing Provider: Trina Perez MD Collected: 03/08/2022 09:24 AM Ordering Location: [facility] Received: 03/08/2022 02:08 PM SERVICES Pathologist: Pinky Kumar MD Specimens: A) - Biopsy, Gastric, Bx B) - Polyp, Colon - Transverse, cold snare DIAGNOSIS (test code = i6rxyCAaMOTsf6hcIUVbbT 3220) FuZzEwMzNcZnRuYmpcdWMx IHtccnRmMVxlcGljOTYwMl sgdjGxZVCxlDJiZ4Qnuiwa NVyuYR5jIL1nvHeezWKeeT EmLOScTmHhq9usg331eASb o4acDUJLnhqopRi1rCstU5 8je6V6AuerG56ynDCbNGA3 NGYzTDNglZApFHSiVUC0BB OxvDYjH1csAKHmRK3cdobx MBumPTwuEPNfvMJ2RWBxoH LyT7RfEQCeTNpwATVdbyu2 SxMkJs2kbWIxnQnxGFjyKR VsSTZcWKpoOTKpTqQfQO6a T9SGPYSYIMVJJJ2LG5puiA FuFJ2wZJGQMVDBNlzMCHnR CRKDZBDYKQtOA4TEAYAHHv ouPMaWNRlbCJNzAUKuQI3Q IElOVEVTVElOQUwgTUVUQV LUURDUAAdyWEeEUPyKC8cB KG1OJGYULeQYCy5IIXCPLM VOVElGSUVEXHBhciAtICAg Fr1oPPZBYYFRQeJBFXTYKW OKRX7BQDXJZMwBHF0RY7JL SVNNUyBJREVOVElGSUVEIE 6YDEBUKXYZGhSwM8QBQK6z tNTbIQFwknFHGqLVX7eHLl kgTOMOXdMGUDCEYYEJH9cS GxLUD5eSZIkvXA5NBVUMQ5 AHAFqsqYBkNT6vITLLC8eD BA8GLGVFFNJMS6BSWQZGHN wUQZ4XBDvNMJsxMv2pPHnV O65MU3GPGuSOAQUTQ33FDT 9VUyBPUiBIWVBFUlBMQVNU MUFdI5bSYejWV3usAZUqIH PkTG77pRLxxJksUKosrhUr cyE3QGHuEKS6ZM1yqfRrHP MbxTDsaCirszFrCAdtn9Qi MTsyPWYsON7fsItaKNItOC 9fTUYfZ9gucV3lrie3LjZb BMPwFpZ5ANFgrfO0Hxk0FO YxKPqlx0dlt3FpNXBgUWc3 rUrdZoBpPRRwv7afwqIuTb PaOIWbJABpTPWyyPSaD424 e7cce3sulgAmcCL7GPGsFF O9BKochkBaqiB7OBlhrMAd ZwP9QXivdiYiSXzkxmEhol ScInm0PJAoB825HOO9mPhz c5whTFC4NHGrIKLlGmJqTs 8atBDyZ740ANTcZERLYMAc yFc6LVFenyYawiHvtWWNs5 15O698b4gaOEMngjHnuOaT zexmb9meP550BKDicGVhxs MwPmAcOWKfkHZqfIW8YNRq UC9wsihjUKpsTPnkZRSmvi E1DIBfmIRwZ8AtTLHwPC2n sxptOGI0JWvgNGWsJPH1Aj PtXVBhk7Bsmgi8QbRqze8b td42WOF9m3ZvoTzsNEW5EA D7OmSrJl1srVAdHYVbNG0i MvGwxIBlFIJdmt45rAgaFX kiAWV2LOIkviGdu3Fmd1xa GcMrfuRxQ1vyZ6NjDQLdIF TfSOPgYhGwsuNpb6Vzp5Ro qIYisOw9k6afCHBbAWKeoV ygk9xcRQK5DMJodXYaU3tc yB1nCBItOM5hpzxzw3xyNG ayFVzmVTWluJA9zcO0LJYh hNVrB8EpnE4dRGHuTWzlBF Xtqpl8PeUjOq3yhSRswZyt MFxzYmtwYWdlXHBnbmNvbn RccGduZGVjXHBsYWluXHBs YWluXGYwXGZzMjRccWxcbG FuZzEwMzNcaGljaFxmMVxk QpHqYMSkSMsfS7doCfFlBx NfVav2ULYedAJwRSArLhf1 VWGxlXVmYQDTtEtlwI4iZC XkiIskcH3fxOK2RQSegbSr iQQZeU6rTAUYpT4wQfE8Hh PqMfP2GEp2HdNfkIBhfZ1= CPT Code(s) (test code b9exzMQbYPPcoHA7ZbFsXN = 3357) Mjz2isf3XqwANkfLAnXDxp wXNpmrMxhq63mBH2zM50ZI 9xZYFuAyR7JAPfntG5Lfy8 DCEtEZPdbPSqD099f5fcg8 nfqzFaiFS4eFqaTZMbjdec UkI0APnkIFZngkowMYv0CC dxJNGbdQO0PGDuoNLkU9Qg COHcMA2qbnw0JRO6AQksFL VxXwT5OJFawXUwBJItvFkz IStrv602RDZ2MgSmLWJwbh SuoTjuuP9oOmHhZQS5SGTt NSBYIDJccGFyfQ== CLINICAL HISTORY (test u2foxQQoPSUfnUK8OxLtLG code = 3356) Kti1apg2TckAWozIQqTJej iWUbncPwzo17cPE7tT36ZV 8jAQTzQpK4RBUjpaX4Mkf1 TASmUMEslZZxT640j6lun2 vdguJwjXR9YMJtVMJbJ4Sn QZ9dGFWhyRTjG72qgCEbLY J5UBZpUMXndUFqRFTnDUA4 GIAaoKYxH4fxTROxEL8dag qrAHvkORozKNPdaIY3RZIv vVTsM3NsAMUwPOolFBSqaq t4OnWpYy7meLQnlVqiNJvs YXJkXHJpMVxwbGFpblxmcz McHICjSLCWz78vgSHoWRVt LMXptmzeKHWda3o2yE36hS AxaLPwVVsrWpsxtV2hwOQr wXGvIPMmDROgrXxfD5HbiN B5AWWfP5WfNIS8fSSyWUXs tvYPvAXpuL5wiIIxy5WsfW l6VIOod1x5jY93vRZgr0Ht sLWkXBE4huVvAYWoQgwoNH UsQIOegKepDNRvsbCzu8Zi ypL0yGFfKZxlBSRkT8CpMF TeRKCekwXqi1ehioKyNO8z ZXJccGFyfQ== SPECIMEN SOURCE (test g4drfARtOIPgxON8ZiJqDI code = 3377) Xcb2dbh2IpmYHnjXDlARey sPPgkuOciw19tTN1lE95XG 7fVEXdWbL2VYUrvsG0Kfo5 JQHnNYKmtWSzU916j3mpl9 kcdpTgfUE9zIxcUZYytchj EnA2WQhtUWCdozkzBQo3GS cuAVWubTO5ZWLrfZXyD5Ix URSmUE3jemx8ICK3WBkaUR ZeKnV5LLMmkZFbLPOxdTht QZpgp280CCV4VwAhSHQqsq IpgTutcG7ePxPmWYLGLfIm EvpmkLP1WBXyJXU3ymboKE xcdkNqXx6wUBQsfTtxWPPf t0eheaoxzWLhsyE8PZPpJS xwYXJ9 GROSS DESCRIPTION (test g4akjONoLZGybYKWVWCfK4 code = [id number]) zymfGzGYSxnSIsA9Mgjhqa TVjtKU5jTI4laKyqfQSedR JvXQ0EVKPqTwJjOEKlcSDi ewAyHrBoRVDraDHbcFE9RK WuXR6widtlSWnqPRggNVYc llM4YBMxsFLrM6MiRYOlAP 0wvabuXXV0FOcuaD0ygdBB SunaSl8svLVqoJqjDjXmXm NoYXJzZXQwXGZuaWwgQXJp ZUi4mF8RMxywCVB9FCFXPz owUQEkPI9Ro6gwPQCvkQWn IBN7HZdnyCLbVEOyGSWdHB q3SSUhONdztLXfVN5sqUhn QncgjHiwg1VrsBWfPMbhIX MqFFFgHCwrXTHpSU0NLoVr HEV6CjG1JYKoQRv5SJa2EL 9WUyAiICAzMDAzOTQxMSIg QYi4HZjgPZ8JCBHsTOXoBQ S9WiE8IKI7BYSlBPBcBqOz XGYgQXJpYWwgXFxmbCBcXG 5ylHounDOditYSZiXTrL8p b0yqURqjq6QqeSCoUMPfie ANClxlcGljTmVzdERvYzEg DQpcbHRycGFyXGxpbjBccm luMCANClxsdHJjaFxmczIw EUNuAATegSFgcC6yqaXjqs SkJUIloLKdHWOgrsBme4Nc CCcrbiWyXZMomUypMXC0jY UnYSLzZKWzMEJuNU97IVxJ NHMgbmFtZSwgbWVkaWNhbC ByZWNvcmQgbnVtYmVyIGFu QSYnV7EeqDRtUzXkvC6dh2 dyNANwWDYaq32xjUD9usXr DiP7CAWnzr3xrK8mWO42M4 6gPU1ju9LjnwWjIWOni2G7 ZSBmcmFnbWVudHMgKGZyb2 1hHF6yQWKdVIOwAXGzRjWf bSBpbiBncmVhdGVzdCBkaW 5yqbRbo85xGzWRfHJpv5Dj B5olFB9yzJHxi1ZlwWy1dU KfOXahWPTucO8lYs7dzD77 dR1aSBMenMElJWZvh91cyG 0dX9Gtg8G1rOVkUVFoOIRe ciANClxwYXIgDQpLTCAocm VzaWRlbnQpXHBhciANClxw bGFpblxlcGljTmVzdERvYz NbjWzkkU38JLRqlASyUDS3 HQ3qISJpagpmCVWiRAZeWU A9SYvpbA54hSNiYLCvYWEx tVFihU7Db1rpIMNncTDeQO M2GGowiLKvIMJoFPUfBVgv TdZgK5OZSMPhDiq9XGw2Rp HuBNi6JWozQ5QYGGVkBPZu OUG1NTHsAeQ1DNf3RCYOJd 8wYeCrKtY5XBC1EAY3GCak IFxcdCAyIFxcZiBBcmlhbC BlZLBjMUtoelU8LBMgREQk oBmwcO6uKj7qRW4gtUCgCY YqfI2aVQ7sGCTmvlU5AZBl OW7peUWpWQ0PMLUjxYWDAM K9IK6yBJQTYstqrXUeBTTr aFsxNMnfkW7vAP0MSAl4qm NoXGZzMjAgVGhlIHNwZWNp yXZhMButTIJyO7TqczFyJA bsELOycp4vrQkqJLsvChEy bGVkIHdpdGggdGhlIHBhdG wewxOyO1G5ptJiFW2qHFBr JGSmP0AfZTCmG44eDXXswO 0cBMDqEQ2lNIB8xrZjg8Tr cnNlIHBvbHlwIiBhbmQgY2 5kc6xulHTzu8TyEID0MB9l fTwspqDjfLKko3GuG312GE YzUKR6mYPxyGDaSbAvW93n njOgAXrmAfBlO34sgO8pP9 KkPSMow7UyAQxwEL0edW7o CJ9lIOvsHFUvMBKfgFZaKL zcOFD9Dv1ktTFoDKSzlpY8 f6MkEPOxlWdhl4rwWzWfgK x4wfO3yP4wGPtgNCXju7Bd dHRlIEIxLlxwYXIgDQpccG PhZD9DI6xrREEfh9dhQA63 VFsfXEHqEDvouVzniZ0aPD GkG24lj6BQj3SoWRUdKUzx n3folCxdx0SdeRPeZRobLX KywFEcAUdyjZ4wGtJjj4nn oPj8VTiglvU3ITSize4FZj latY8fUvZcw5gxdDk2XWEB KswpevB6e5hgjBgrh7ZgfR UcIX5GDq6= MICROSCOPIC DESCRIPTION y6derNRlNNNgkLX6NhVvYU (test code = 3371) Ath2uea7GuyQMuvGXjWHlp sXWuevAkbk50vES8zV96DO 5dVKJeKlU3PEYnsrD1Fps5 HQKxFHHqjBKoF100k8cnt0 bgqpOqiEK3xWxeUUZtmfcn VcC3CVptUBCuvkkdWFw6ET fqPQQilZO0JCLwfJLnT0Gn WFGdXH6upcc6WGI6CDjaNF KjYzX0JPNmsQNaYODpjJrv MUyza843NQX0SnLzTVIrak PpiRjwoP6uFdAlRNTITEPg e1TpAVQeLAQbxz7= Gross assessment was [facility] performed at ([facility], = 2777) Department of Pathology, [address] [place] [address], Technical component was [facility] performed at ([facility], = 6027) Department of Pathology, [address] [place] [address], Professional component [facility] was performed at ([facility], code = 2770) Department of Pathology, [address] [place] [address], [facility] Hospital[facility]UE [id number] 18:40:02Surgical Pathology Report Case: [id number] Authorizing Provider: Trina Perez MD Collected: 03/08/2022 09:24 AM Ordering Location: [facility] Received: 03/08/2022 02:08 PM SERVICES Pathologist: [...] were examined Signing Pathologist Direct Phone Line: [phone] signed by Pinky Kumar MD on 03/13/2022 at 6:39 [id number] 2Esophageal varices without bleeding, unspecified esophageal [...] submitted in toto following filtration in cassette A1.KL (resident)B. Polyp, Colon - Transverse.The specimen is received in formalin labelled with the patient's name, medical record number and "transverse polyp" and consists of 1 wan-pink mucosa-covered tissue fragments (0.3 cm in greatest dimension). The specimen is submitted in toto following filtration in cassette B1.SCOTT(resident)Performed.[facility], Department of Pathology, [address] [place] [address], [facility], Department of Pathology, [address] [place] [address], [facility], Department of Pathology, [address] [place] [address], [facility]-Glucose [id number] 09:27:26 Test Item Value Reference Range Interpretation Comments POC-Glucose Meter (test 87 mg/dL 70-110 : TE STED AT [facility] code = 1538) [facility] [place] 7 7030: Dryer Feeder/Techni cheyenne ID = [id number] for BARRETT, ANGELIC L Lab Interpretation (test Normal code = 36598-3) [facility] [id number] 09:27:26 Test Item Value Reference Range Interpretation Comments POC-Glucose Meter (test 87 mg/dL 70-110 : TE STED AT [facility] code = 1538) [address] [place] [address] 7 7030: Dryer Feeder/Techni cheyenne ID = [id number] for BARRETT, ANGELIC L Lab Interpretation (test Normal code = 44280-6) [facility] [id number] 09:27:26 Test Item Value Reference Range Interpretation Comments POC-Glucose Meter (test 87 mg/dL 70-110 : TE STED AT [facility] code = 1538) [facility] [place] 7 7030: Dryer Feeder/Techni cheyenne ID = [id number] for BARRETT, ANGELIC L Lab Interpretation (test Normal code = 31233-1) [facility] [id number] 09:27:26 Test Item Value Reference Range Interpretation Comments POC-Glucose Meter (test 87 mg/dL 70-110 : TE STED AT [facility] code = 1538) [address] [facility] [place] 7 30: Dryer Feeder/Techni cheyenne ID = [id number] for ANGELIC BARRETT L Lab Interpretation (test Normal code = 10426-4) [facility]ucose [id number] 09:27:26 Test Item Value Reference Range Interpretation Comments POC-Glucose Meter (test 87 mg/dL 70-110 : TE STED AT [facility] code = 1538) [address] [facility] [place] 7 7030: Dryer Feeder/Techni cheyenne ID = [id number] for WILMA BARRETTIL L Lab Interpretation (test Normal code = 97979-7) [facility] [id number] 09:27:26 Test Item Value Reference Range Interpretation Comments POC-Glucose Meter (test 87 mg/dL 70-110 : TE STED AT [facility] code = 1538) [address] [facility] [place] 7 30: Dryer Feeder/Techni cheyenne ID = [id number] for ANGELIC BARRETT L Lab Interpretation (test Normal code = 32205-6) [facility]-GLUCOSE [id number] 09:27:26 Test Item Value Reference Range Interpretation Comments POC-GLUCOSE METER 87 mg/dL 70-110 : TESTED A T [facility] 7200 (BEAKER) (test code = [place] [facility] A, 1538) [facility] 7703 0: Dryer Feeder/Techni cheyenne ID = [id number] for VERONA OCONNELL GASTRIC EMPTYING STUDY, SOLID 4 [id number] 15:17:00VANG, ANETTE LY MDReason for Exam:->abdominal distension, diabetes, assess for gastropareisis [facility] 1970 Sex: FFINAL REPORT PROCEDURE: GASTRIC EMPTYING STUDY with Solids/Consensus Standard Protocol CPT CODE: 68336 INDICATION: Abdominal distention with diabetes. PROTOCOL: 0.51 [...] using the consensus standard protocol. Signed: Anibal [facility] Verified Date/Time: 02/14/2022 15:17:33 HEPATITIS A ANTIBODY, [id number] 15:13:22 Test Item Value Reference Range Interpretation Comments HEPATITIS A IGG ANTIBODY (BEAKER) Reactive Nonreactive A (test code = 2797) Dryer Feeder ID - BSBASI METABOLIC [id number] 14:51:44 Test Item Value Reference Range Interpretation [...] S NOT APPLICABLE FOR DIALYSIS PATIEN TS. Dryer Feeder ID - BSHEPATIC FUNCTION [id number] 14:51:44 Test Item Value Reference Range Interpretation [...] (test code = 29 U/L 6-55 347) Dryer Feeder ID - BSLACTIC ACID, [id number] 14:42:21 Test Item Value Reference Range Interpretation Comments LACTATE BLOOD VENOUS 1.76 mmol/L 0.50-2.20 Specime n slightly (2) (BEAKER) (test hemolyzed code = 7813) Dryer Feeder ID - BSPROTHROMBIN TIME/[id number] 14:38:41 Test Item Value Reference Range Interpretation Comments PROTIME (BEAKER) 13.5 seconds 11.9-14.2 (test code = 759) INR (BEAKER) (test 1.05 See_Comment [Automat ed message] code = 370) The system Nitero generated this result transmitted ref erence range: <=5.90. The reference range was not used to int erpret this result as normal/abnormal . RECOMMENDED COUMADIN/WARFARIN INR THERAPY RANGESSTANDARD DOSE: 2.0 - 3.0 Includes: PROPHYLAXIS for venous thrombosis, systemic embolization; TREATMENT for venous thrombosis and/or pulmonary embolus.HIGH RISK: Target INR is 2.5-3.5 for patients with mechanical heart valves.CBC W/PLT COUNT & AUTO [id number] 14:32:38 Test Item Value Reference Range Interpretation [...] (BEAKER) (test code = 2801) MR, ABDOMEN, [id number] 15:44:00ANETTE HANEY MD Please do per liver protocol Unlisted Reason for Exam - Click Yes and Enter Reason Below->Yes Unlisted Reason for Exam->cirrhosis [facility] : 1970 Sex: FFINAL REPORT [...] performed by IFA method.Test performed by IFA method.[id number] 17:57:11 Test Item Value Reference Range Interpretation Comments FERRITIN (BEAKER) (test code = 45.90 ng/mL 5.00-275.00 361) Dryer Feeder ID - BSHEPATITIS B SURFACE [id number] 17:21:28 Test Item Value Reference Range Interpretation Comments HEPATITIS B SURFACE ANTIBODY < mIU/mL <8.0 (BEAKER) (test code = 647) Dryer Feeder ID - BSHEPATITIS B SURFACE [id number] 17:09:40 Test Item Value Reference Range Interpretation Comments HEPATITIS B SURFACE ANTIGEN (2) Nonreactive Nonreactive (BEAKER) (test code = 2585) Specimen is considered negative for HBsAg.ALPHA FETOPROTEIN (AFP), TUMOR MARKER 2021-12-17 17:09:40 Test Item Value Reference Range Interpretation Comments ALPHA-FETOPROTEIN (BEAKER) (test 2.3 ng/mL <10.0 code = 1094) Dryer Feeder ID - BSHEPATITIS B CORE ANTIBODY, [id number] 17:09:40 Test Item Value Reference Range Interpretation Comments HEPATITIS B CORE TOTAL ANTIBODY Nonreactive Nonreactive (BEAKER) (test code = 497) Dryer Feeder ID - BSHEPATITIS C [id number] 17:09:40 Test Item Value Reference Range Interpretation Comments HEPATITIS C ANTIBODY (BEAKER) Nonreactive Nonreactive (test code = 367) Dryer Feeder ID - BSBILIRUBIN, [id number] 16:49:19 Test Item Value Reference Range Interpretation Comments BILIRUBIN DIRECT (BEAKER) (test 0.2 mg/dL 0.1-0.5 code = 706) Dryer Feeder ID - BSCOMPREHENSIVE METABOLIC [id number] 16:49:14 Test Item Value Reference Range Interpretation [...] S NOT APPLICABLE FOR DIALYSIS PATIEN TS. Dryer Feeder ID - BSIRON, TIBC, % SAT. (WITHOUT FERRITIN)2021-12-17 16:47:34 Test Item Value Reference Range Interpretation Comments IRON (BEAKER) (test code = 547) 58.0 ug/dL 40.0-160.0 TOTAL IRON BINDING CAPACITY 311 ug/dL 250-450 (BEAKER) (test code = 769) IRON % SATURATION (2) (BEAKER) 19 % 20-55 L (test code = 0070) Dryer Feeder ID - [id number]-2-[id number] 16:47:17 Test Item Value Reference Range Interpretation Comments ALPHA-1 ANTITRYPSIN (BEAKER) 184.50 mg/dL 90.00-200.00 (test code = 502) Dryer Feeder ID - BSLACTIC ACID, [id number] 16:39:11 Test Item Value Reference Range Interpretation Comments LACTATE BLOOD VENOUS 1.29 mmol/L 0.50-2.20 Specime n slightly (2) (BEAKER) (test hemolyzed code = 2872) Dryer Feeder ID - BSPROTHROMBIN TIME/[id number] 16:36:56 Test Item Value Reference Range Interpretation Comments PROTIME (BEAKER) 13.9 seconds 11.9-14.2 (test code = 759) INR (BEAKER) (test 1.09 See_Comment [Automat ed message] code = 370) The system Nitero generated this result transmitted ref erence range: <=5.90. The reference range was not used to int erpret this result as normal/abnormal . RECOMMENDED COUMADIN/WARFARIN INR THERAPY RANGESSTANDARD DOSE: 2.0 - 3.0 Includes: PROPHYLAXIS for venous thrombosis, systemic embolization; TREATMENT for venous thrombosis and/or pulmonary embolus.HIGH RISK: Target INR is 2.5-3.5 for patients with mechanical heart valves.CBC W/PLT COUNT & AUTO [id number] 16:33:51 Test Item Value Reference Range Interpretation [...] (BEAKER) (test code = 2801) STREP A [id number] 00:00:00 Test Item Value Reference Range Interpretation Comments Result (test code = 92984-1) Negative CHEM [id number] 20:32:00 Test Item Value Reference Range Interpretation Comments POC Creatinine (test code = POC 0.6 0.5-1.4 Creatinine) [facility] [id number] 20:32:00 Test Item Value Reference Range Interpretation Comments eGFR (test code = eGFR) [facility], STEREOTACTIC BIOPSY, BREAST, [id number] 15:59:00Reason for Exam:->calcificationAddendum BeginsN#: [id number]: 05/14/2017 Aditya Corrales M.D. 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 Addendum [facility]#: [id number] - MM, STEREOTACTIC BIOPSY, BREAST, LEFTSTEREOTACTIC GUIDED [...] correct location, five specimens were obtained using Chill.comIVA device. A clip was inserted into the [...] the calcifications. Aditya Corrales M.D. pth/penrad:05/09/2017 11:07:57 [employer] Vice President: Felicia Rizzo RT(R)(M), [facility] [address] [facility] [id number] 12:48:00Surgical Pathology Report Case: [id number] Authorizing Provider: Aditya Corrales MD Collected: 05/09/2017 1110 Ordering Location: [facility] Received: 05/09/2017 1312 Pathologist: Jackie Maradiaga MD Specimen: Breast, Left, LEFT MIDDLE 12 BREAST CALCIFICATION BREAST, LEFT, WMBEMO29 O'CLOCK, CALCIFICATIONS, STEREOTACTIC CORE NEEDLE BIOPSY: - HYALINIZED FIBROADENOMA - COLUMNAR CELL HYPERPLASIA - COLUMNAR CELL CHANGES - MICROCALCIFICATIONS, COARSE, ASSOCIATED WITH FIBROADENOMA Signing Pathologist Direct Phone Line: [phone] signed by Jackie Maradiaga MD on 05/12/2017 at 12:48 PMIn the sections examined, no atypical hyperplasia or carcinoma is identified.83092Ckzpglcbah lesion Left middle 12 o'clock breast calcifications The specimen is received in a formalin-filled container labeled with the patient's information and labeled "left middle 12 o'clock breast calcifications" and consists of multiple yellow-white breast core biopsies ranging in length from 0.6 to 2.5 cm.Ink code: Black.The specimen is submitted entirely in A1 and A2. CG/ewPerformed.[facility], Department of Pathology, [address] [place] [address], Tel MM, DIGITAL, UNILATERAL, CONFER MARTA, MAMMO, LEFT INCLUDING [id number] 11:07:00Left breast calcificationsMRN#: [id number] - MM, DIGITAL, UNILATERAL, CONFER MARTA, MAMMO, [...] PLACEMENTAwait pathology results. Aditya Ferraro pth/:05/09/2017 11:07:15 [employer] Vice President: Felicia Rizzo RT(R)(M), [facility] Mammogram BI-RADS: Post- procedure mammogram for marker placement 41300 MM, MAMMO, SPECIMEN, RADIOGRAPH, LEFT 2017-05-09 11:06:00Reason for exam:->Left breast calcificationsMRN#: [id number] - MM, MAMMO, SPECIMEN, RADIOGRAPH, LEFTSPECIMEN LEFT BREAST: 05/09/2017Five stereotactic guided biopsy specimens were imaged for the area of calcifications located in the left breast at 12 o'clock middle depth. IMPRESSION: SPECIMENThe imaged specimens includes the calcifications. Aditya Corrales M.D. pth/:05/09/2017 11:06:40 [employer] Vice President: Felicia SCHNEIDER)(M), [facility] [id number] Lumbar Spine 3 ViewsLumbar Spine 3 ViewsSARS-COV 2 AntigenSARS-COV 2 Antigen
[2022-09-19] MEDS ORDERED: KETOROLAC 30 MG/ML INJ ONE (14:29)
[2022-09-19] MEDS ORDERED: ONDANSETRON 4 MG/2 ML VIAL ONE (14:29)
[2022-09-19] MEDS ORDERED: NA CHLORIDE 0.9% 1,000 ML ONE (14:30)
[2022-09-19 14:57] LABS: Absolute Lymphocytes (CBC) 1.7 K/uL (0.7-4.9); Hematocrit 39.5 % (36.0-45.0); Lymphocytes % 22.4 % (15.3-44.8); MCV 86.6 fL (80-100); MPV 8.9 fL (7.6-11.3); RBC Red Blood Cell Count 4.56 M/uL (3.86-4.86)
[2022-09-19 15:18] LABS: Albumin 3.7 g/dL (3.4-5.0); Bilirubin Total 0.4 mg/dL (0.2-1.0); Potassium 3.8 mEq/L (3.5-5.1); Protein, Total 7.2 g/dL (6.4-8.2)
[2022-09-19 15:19] LABS: Specific Gravity > 1.030 (1.005-1.030); Urine Bacteria None Seen /HPF (<20); Urine Bilirubin NEGATIVE (Negative); Urine Blood Negative (Negative); Urine Clarity Clear (Clear); Urine Color Light-Yellow (Yellow); Urine Glucose 4+ (Over) (Negative); Urine Mucus Slight /HPF (None Seen); Urine Protein NEGATIVE (Negative); Urine RBC <5 /HPF (None Seen); Urine Urobilinogen Normal (Normal)
--- NOTE | 2022-09-19 17:01 | RAD REPORT ---
EXAM DESCRIPTION: CTAbdomen Pelvis W Contrast - 09/19/2022 4:50 pm CLINICAL HISTORY: Abd pain;Abdominal distention COMPARISON: Abdomen Pelvis W Contrast dated 01/22/2022; Abdomen Pelvis W Contrast dated 09/28/2021; Abdomen Pelvis W Contrast dated 09/03/2021; Abdomen Pelvis W Contrast dated 08/18/2021; Abdomen Exa m Limited dated 01/22/2022 TECHNIQUE: CT of the abdomen and pelvis was performed with IV contrast. All CT scans are performed using dose optimization technique as appropriate and may include automated exposure control or mA/KV adjustment according to patient size. FINDINGS: Lower chest: No acute abnormality. Liver: Hepatic steatosis. Cirrhotic liver morphology. Faint hypoattenuating lesion in the left hepati c lobe measuring 8 millimeters is noted. This was likely present on the prior CT from 01/22/2022 as w ell and similar in size. Biliary: Cholecystectomy Stomach: No significant focal abnormality. Duodenum: No significant focal abnormality. Pancreas: No significant abnormality. Spleen: Splenomegaly. Adrenal: No suspicious lesions. Kidney/ureter: No hydronephrosis. No renal calculi. Retroperitoneum: No retroperitoneal adenopathy. Vascular: No aneurysm. Bowel: No significant focal abnormality. Normal appendix. Peritoneum: No ascites or free air. Bladder: Grossly unremarkable. Reproductive: No adnexal masses. Hysterectomy Bones: No acute fracture. Other: n/a IMPRESSION: No acute intra-abdominal or pelvic finding. Cirrhosis with evidence of portal hypertension. Faint hypoattenuating lesion in the left hepatic lobe likely present in retrospect on the CT from 01/22/2022 and unchanged in size. Nevertheless, given th e patient's history of cirrhosis, consider a nonemergent hepatic protocol MRI for further evaluation.
--- NOTE | 2022-09-19 17:07 | ER ---
Nurse's Notes [facility] Name: Dena Nance Age: 52 yrs Sex: Female : 1970 Arrival Date: 09/19/2022 Time: 13:27 Bed 15 Private MD: Diagnosis: Upper abdominal pain, unspecified;Other cirrhosis of liver Presentation: 09/19 14:05 Chief complaint: Patient states: abd pain radiating to back that began 4 days ago. ss Denies nausea/vomiting/diarrhea. Coronavirus screen: At this time, the client does not indicate any symptoms associated with coronavirus-19. Ebola Screen: Patient denies travel to an Ebola-affected area in the 21 days before illness onset. Initial Sepsis Screen: Does the patient meet any 2 criteria? No. Patient's initial sepsis screen is negative. Does the patient have a suspected source of infection? No. Patient's initial sepsis screen is negative. Risk Assessment: Do you want to hurt yourself or someone else? Patient reports no desire to harm self or others. Onset of symptoms was August 2022. 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 - Social history:: Smoking status: Patient denies any tobacco usage or history of. Screenin:40 [facility] ED Fall Risk Assessment (Adult) Score/Fall Risk Level 0 - 2 = Low Risk ss Oriented to surroundings, Maintained a safe environment, Educated pt \T\ family on fall prevention, incl call for assistance when getting out of bed, Hourly rounding (assess needs \T\ fall precautionary measures) done. Abuse screen: Denies threats or abuse. Nutritional screening: No deficits noted. Tuberculosis screening: No symptoms or risk factors identified. Assessment: 14:25 General: Appears uncomfortable, Behavior is calm, cooperative, appropriate for age. ll1 Pain: Complains of pain in abdomen Quality of pain is described as aching, crampy. GI: Abdomen is round Bowel sounds present X 4 quads. Abd is soft and non tender X 4 quads. Abd is soft Reports lower abdominal pain, upper abdominal pain. 14:55 Reassessment: No changes from previously documented assessment. Patient and/or family ss updated on plan of care and expected duration. Pain level reassessed. 16:19 Reassessment: No changes from previously documented assessment. Patient and/or family ll1 updated on plan of care and expected duration. Pain level reassessed. Patient is alert, oriented x 3, equal unlabored respirations, skin warm/dry/pink. 16:56 Reassessment: No changes from previously documented assessment. Patient and/or family ll1 updated on plan of care and expected duration. Pain level reassessed. Patient is alert, oriented x 3, equal unlabored respirations, skin warm/dry/pink. back from CT. 17:01 Reassessment: No changes from previously documented assessment. Patient and/or family ll1 updated on plan of care and expected duration. Pain level reassessed. Patient is alert, oriented x 3, equal unlabored respirations, skin warm/dry/pink. Vital Signs: 14:05 BP 126 / 57; Pulse 88; Resp 18 S; Temp 97.8(TE); Pulse Ox 99% on R/A; Weight 72.57 kg ss (R); Height 5 ft. 4 in. (R); 17:01 BP 119 / 63; Pulse 70; Resp 16; Pain 8/10; ll1 14:05 Body Mass Index 27.46 (72.57 kg, 162.56 cm) ss 17:01 Pain Scale: Adult ll1 ED Course: 13:27 Patient arrived in ED. mr 13:38 [facility] Scott[facility] jh7 13:38 Eric Cruz MD is Attending Physician. jh7 14:05 Triage completed. ss 14:05 Arm band placed on. ss 14:18 Delfin Young, SHADE is Primary Nurse. ll1 14:19 Patient placed in an exam room, on a stretcher. ll1 14:40 Inserted saline lock: 20 gauge in left antecubital area, using aseptic technique. Blood ll1 collected. 14:49 Radiology exam delayed due to lab results not completed at this time. (BUN/Creatinine). [id number] 16:52 CT Abd/Pelvis - IV Contrast Only In Process Unspecified. EDMS 17:12 Patient has correct armband on for positive identification. Bed in low position. 1 17:12 No provider procedures requiring assistance completed. IV discontinued, intact, ll1 bleeding controlled, No redness/swelling at site. Pressure dressing applied. Administered Medications: 14:53 Drug: NS 0.9% IV 1000 ml Route: IV; Rate: 1 bolus; Site: left antecubital; 1 17:01 Follow up: IV Status: Completed infusion; IV Intake: 1000ml [facility] 14:53 Drug: TORadol - Ketorolac IVP 15 mg Route: IVP; Site: left antecubital; 1 16:19 Follow up: Response: No adverse reaction; Pain is decreased; RASS: Alert and Calm (0) [facility] 14:53 Drug: Ondansetron IVP 4 mg Route: IVP; Site: left antecubital; 1 16:19 Follow up: Response: No adverse reaction [facility] Medication: 15:40 VIS not applicable for this client. ss Intake: 17:01 IV: 1000ml; Total: 1000ml. 1 Outcome: 17:06 Discharge ordered by . virgil 17:12 Discharged to home ambulatory. ll1 17:12 Condition: stable 17:12 Discharge instructions given to patient, Instructed on discharge instructions, follow up and referral plans. Demonstrated understanding of instructions, follow-up care. 17:12 Patient left the ED. 1 Signatures: Dispatcher [employer] EDTN Deonna Virgen Yeni Durand RN RN ss Lewis, Lynsay, RN RN 1 Flavia Scott FNP RN CARDIAC Clarissa Castanon [email or web address]
--- NOTE | 2022-09-19 17:07 | EDPHYS ---
Physician Documentation [facility] Name: Dena Nance Age: 52 yrs Sex: Female : 1970 Arrival Date: 09/19/2022 Time: 13:27 Bed 15 Private MD: ED Physician Eric Cruz HPI: 09/19 14:05 This 52 yrs old Female presents to ER via Ambulatory with complaints of jh7 Abdominal Pain, Back Pain. 14:05 The patient presents with abdominal pain in the upper abdomen. Onset: The jh7 symptoms/episode began/occurred 4 day(s) ago. The symptoms radiate to back. Associated signs and symptoms: Pertinent positives: constipation, Pertinent negatives: nausea, vomiting, and diarrhea, chest pain, dysuria, fever, shortness of breath. The symptoms are described as sharp. 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 - Social history:: Smoking status: Patient denies any tobacco usage or history of. ROS: 14:05 Constitutional: Negative for fever, chills, and weight loss, Eyes: Negative for injury, jh7 pain, redness, and discharge, ENT: Negative for injury, pain, and discharge, Cardiovascular: Negative for chest pain, palpitations, and edema, Respiratory: Negative for shortness of breath, cough, wheezing, and pleuritic chest pain, Back: Negative for injury and pain, MS/Extremity: Negative for injury and deformity, Skin: Negative for injury, rash, and discoloration, Neuro: Negative for headache, weakness, numbness, tingling, and seizure. 14:05 Abdomen/GI: Positive for abdominal pain, constipation, black/tarry stool, rectal pain, Negative for nausea, vomiting, and diarrhea. 14:05 All other systems are negative. Exam: 14:05 Constitutional: This is a well developed, well nourished patient who is awake, alert, jh7 and in no acute distress. Head/Face: Normocephalic, atraumatic. Eyes: Pupils equal round and reactive to light, extra-ocular motions intact. Lids and lashes normal. Conjunctiva and sclera are non-icteric and not injected. Cornea within normal limits. Periorbital areas with no swelling, redness, or edema. Cardiovascular: Regular rate and rhythm with a normal S1 and S2. No gallops, murmurs, or rubs. Normal PMI, no JVD. No pulse deficits. Respiratory: Lungs have equal breath sounds bilaterally, clear to auscultation and percussion. No rales, rhonchi or wheezes noted. No increased work of breathing, no retractions or nasal flaring. Back: No spinal tenderness. No costovertebral tenderness. Full range of motion. Skin: Warm, dry with normal turgor. Normal color with no rashes, no lesions, and no evidence of cellulitis. MS/ Extremity: Pulses equal, no cyanosis. Neurovascular intact. Full, normal range of motion. Neuro: Awake and alert, GCS 15, oriented to person, place, time, and situation. Motor strength 5/5 in all extremities. Sensory grossly intact. Normal gait. 14:05 Abdomen/GI: Inspection: distension, that is mild, Bowel sounds: normal, Palpation: soft, mild abdominal tenderness, in the epigastric area, right upper quadrant and left upper quadrant. Vital Signs: 14:05 BP 126 / 57; Pulse 88; Resp 18 S; Temp 97.8(TE); Pulse Ox 99% on R/A; Weight 72.57 kg ss (R); Height 5 ft. 4 in. (R); 17:01 BP 119 / 63; Pulse 70; Resp 16; Pain 8/10; ll1 14:05 Body Mass Index 27.46 (72.57 kg, 162.56 cm) 17:01 Pain Scale: Adult ll1 MDM: 13:38 Patient medically screened. [facility] 17:05 Differential diagnosis: bowel obstruction, gastritis, non-specific abd pain, [facility] pancreatitis, Pyelonephritis, urinary tract infection. Data reviewed: vital signs, nurses notes, lab test result(s), radiologic studies, CT scan. I considered the following discharge prescriptions or medication management in the emergency department Medications were administered in the Emergency Department. See MAR. Care significantly affected by the following chronic conditions: Diabetes, Liver Disease, Crohn's, diverticulitis, colitis. Counseling: I had a detailed discussion with the patient and/or guardian regarding: the historical points, exam findings, and any diagnostic results supporting the discharge/admit diagnosis, the need for outpatient follow up, a education administrative assistant, to return to the emergency department if symptoms worsen or persist or if there are any questions or concerns that arise at home. Response to treatment: the patient's symptoms have markedly improved after treatment. Special discussion: The patient remained hemodynamically stable throughout the ER visit. Her pain significantly improved after pain medication administration. Informed her of chronic findings noted on the CT when compared with the CT completed in December of last year. Advised her to follow-up with her GI doctor and to return to the ER with any new concerning symptoms.. 09/19 13:58 Order name: CBC with Diff; Complete Time: 15:19 [facility] 09/19 13:58 Order name: CMP; Complete Time: 15:33 [facility] 09/19 13:58 Order name: Lipase; Complete Time: 15: [facility] 09/19 13:59 Order name: Urinalysis W/Microscopic; Complete Time: 15:33 [facility] 09/19 13:58 Order name: CT Abd/Pelvis - IV Contrast Only; Complete Time: 17:03 [facility] 09/19 13:58 Order name: IV Saline Lock; Complete Time: 14:23 [facility] 09/19 13:58 Order name: Labs collected and sent; Complete Time: 14:23 [facility] Administered Medications: 14:53 Drug: NS 0.9% IV 1000 ml Route: IV; Rate: 1 bolus; Site: left antecubital; 1 17:01 Follow up: IV Status: Completed infusion; IV Intake: 1000ml [facility] 14:53 Drug: TORadol - Ketorolac IVP 15 mg Route: IVP; Site: left antecubital; ll1 16:19 Follow up: Response: No adverse reaction; Pain is decreased; RASS: Alert and Calm (0) ll1 14:53 Drug: Ondansetron IVP 4 mg Route: IVP; Site: left antecubital; ll1 16:19 Follow up: Response: No adverse reaction 1 Disposition: 17:37 I reviewed the patient's care provided by the Advanced Practice Provider and agree with jrJosse the diagnosis and treatment plan. Disposition Summary: 09/19/22 17:06 Discharge Ordered Location: Home [facility] Problem: chronic [facility] Symptoms: are unchanged [facility] Condition: Stable [facility] Diagnosis - Upper abdominal pain, unspecified 7 - Other cirrhosis of liver [facility] Followup: [facility] - With: Private Physician - When: 2 - 3 days - Reason: Recheck today's complaints Discharge Instructions: - Discharge Summary Sheet 7 - Abdominal Pain, Adult 7 - Cirrhosis [facility] Forms: - Work release form bd - Medication Reconciliation Form [facility] - Thank You Letter [facility] Signatures: Dispatcher [employer] Yeni Rob RN RN ss Delfin Young RN RN ll1 Eric Cruz MD MD [email or web address] Flavia Scott FNP FNP [facility]
[2022-09-19 18:27] VITALS: TEMP 97.8; O2SAT 99
[2022-09-19 18:28] VITALS: BP 119/63
== END 2022-09-19 17:12 | disposition home or self-care (01) ==
LOC: ER 13:22
DX: R10.10 Upper abdominal pain, unspecified (principal); K74.69 Other cirrhosis of liver; K50.90 Crohn's disease, unspecified, without complications; E11.9 Type 2 diabetes mellitus without complications; K76.0 Fatty (change of) liver, not elsewhere classified; K85.90 Acute pancreatitis without necrosis or infection, unspecified
CPT/HCPCS: 85025; 81001; 36415; 83690; 80053; 74177; Q9967; J2405; J7030

== ENCOUNTER 2023-04-07 08:35 | Emergency (ER) | payer OTHER ==
--- OUTSIDE RECORDS SUMMARY | 2023-04-07 08:45 | XMS REPORT | Continuity of Care Document ---
:1970 Author Organization [facility] t Address [address] [facility] [address] [place] [address] Care Team Providers Name Role Phone ANETTE HANEY Primary Care Physician Unavailable Delma Wills Attending Clinician Unavailable Shawna Ornelas Attending Clinician Unavailable Urvashi Boyd Attending Clinician Unavailable Anette Haney Attending Clinician Unavailable VERNELL VITALE Attending Clinician Unavailable DANIAL CHAPA Attending Clinician Unavailable ADE KUMARI Attending Clinician Unavailable Harish RAMÍREZ, Angelina Alvarado Attending Clinician Essie Antonio Attending Clinician Unavailable Mane COVARRUBIAS, Mary Leo Attending Clinician [phone] Trina Perez MD Attending Clinician Clinton COVARRUBIAS, Yudith Mckinney Attending Clinician Unavailable Aracely COVARRUBIAS, William Garcia Attending Clinician Luís Greer Attending Clinician JAVY Attending Clinician Unavailable RONALD SOMMER Attending Clinician Unavailable ADITYA CORRALES Attending Clinician Unavailable Essie Antonio Admitting Clinician Unavailable TRINA PEREZ Admitting Clinician Unavailable JAVY Admitting Clinician Unavailable RONALD SOMMER Admitting Clinician Unavailable Payers Payer Name Policy Type Policy Number Effective Date Expiration Date S jose manuel AMBETTER [id number] 2020 [facility] 00:00:00 [facility] JOSSY NAIK [id number] 2023 - [employer] 00:00:00 Ambetter from [id number] 2018 [facility] Spi rit [facility] 00:00:00 - [facility] Ambetter from [id number] 2018 Common Spi rit [facility] 00:00:00 - [facility] Ambetter from [id number] 2018 Common Spi rit [facility] 00:00:00 - [facility] Problems Condition Condition Condition Status Onset Resolution Last Treating Co mments Source Name Details Category Date Date Treatment Clinician Date Trochanter Trochanter Disease Active U T ic ic 6-07 Health bursitis bursitis 00:00: of left of left 00 hip hip Pain of Pain of Disease Active [facility] left hip left hip 5-30 Health 00:00: 00 Chronic Chronic Disease Active [facility] left-sided left-sided 5-30 He alth low back low back 00:00: pain with pain with 00 left-sided left-sided sciatica sciatica NAFLD NAFLD Disease Active [facility]nonalcoho 6-20 [facility] k[facility] lic fatty lic fatty 00:00: [facility] michele liver liver 00 Center disease) disease) Metabolic Metabolic Disease Active [facility] syndrome [facility] SALINAS SALINAS Disease Active [facility] (nonalcoho (nonalcoho 6-20 [facility] kes lic lic 00:00: Medical [place] 00 Ce nter edith) edith) Encounter Encounter Disease Active [facility]20 [facility] screening screening 00:00: [facility] for viral for viral 00 Cent er disease disease Screening Screening Disease Active [facility] malignant malignant 00:00: [facility] neoplasm neoplasm 00 Center NAFLD NAFLD Disease Active [facility] (nonalcoho (nonalcoho 6-20 [facility] k[facility] lic fatty lic fatty 00:00: Medi [facility] liver liver 00 Center disease) disease) DX: DX: Diagnosis Active 2020-062021-06-06 Mem oria R10.10=UPP R10.10=UPP 1- 16:11:00 l ER ER 00:00: [place] ABDOMINAL ABDOMINAL 00 PAIN, PAIN, UNSPECI UNSPECI Active 05/09/2021 [facility] DX: DX: Diagnosis Active 2019-062020-04-11 Mem oria R10.10, R10.10, 0-07 09:14:00 l R14.0 R14.0 00:00: [place] Active 00 04/05/2020 [facility] Long-term Current Problem Commo n current use of Spirit use of insulin - [facility]I insulin [facility] [id number] Leukocytos Problem Co mmon is, Spirit unspecifie - CHI d type [facility] [id number] Diabetic Problem Comm on polyneurop Spirit athy - [facility] associated [facility] with type [facility] 2 diabetes [facility] [id number] Depression Problem Co mmon with Spirit anxiety - CHI [facility] [id number] 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 diabetes - CHI mellitus St with 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 of thumb, Medical unspecifie Center d laterality , unspecifie d phalanx, initial encounter [id number] Gastroesop Problem Co mmon hageal Spirit reflux - CHI disease, esophagiti [facility] s presence Medica l not Center specified [id number] Diverticul Problem Co mmon osis Spirit [facility] [id number] Other Problem Common chronic Spirit gastritis - [facility] without [facility] Psoriatic Psoriatic Problem Com mon arthritis arthritis Spir it [facility] [id number] Diverticul Problem Co mmon osis of [facility] colon [facility] [id number] Hepatic Problem Common cirrhosis, [facility] unspecifie - [facility] d hepatic St cirrhosis [facility] type, Medical unspecifie Center d whether ascites present [id number] Dysuria Problem Common [facility] [id number] Diverticul Problem Co mmon itis [facility] 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 [facility] [id number] Decreased Problem Commo n mobility [facility] Mixed Mixed Problem Common hyperlipid hyperlipid [facility] emsd emia [facility] [id number] Gastro-eso Problem Co mmon phageal Spirit reflux - [facility] disease [facility] esophagiti Medica l s Center [id number] Crohn's Problem Common disease of Spirit colon - [facility] without [facility] [id number] Memory Problem Common deficit [facility] [id number] Thrombocyt Problem Co mmon openia [facility] [id number] Other Problem Common chronic Spirit pain - [facility] [id number] Unsteady Problem Commo n gait [facility] [id number] Arthritis Problem Co mmon [id number] of left [facility] hip [facility] Allergies, Adverse Reactions, Alerts Allergy Allergy Status Severity Reaction(s) Onset Inactive Treating Comm ents Source Name Type Date Date Clinician NO KNOWN Allergy Active [facility] Family History Family Member Diagnosis Comments Start Date Stop Date Source Natural brother Diabetes [facility] Natural father Diabetes [facility] Natural mother Diabetes [facility] Natural sister Diabetes [facility] Social History Social Habit Start Date Stop Date Quantity Comments Source History of Common Spirit - Tobacco Use [facility] Alcohol intake 2022-12-04 2022-12-04 Lifetime [facility] 00:00:00 00:00:00 non-drinker (finding) Exposure to 2022-11-23 2022-12-03 Not sure [facility] SARS-CoV-2 00:00:00 12:51:00 (event) Tobacco use and 2022-08-20 2022-08-20 Smokeless tobacco [facility] exposure 00:00:00 00:00:00 non-user Sex Assigned At [birth year] [facility] 00:00:00 00:00:00 Smoking Status Start Date Stop Date Source Never smoked tobacco [facility] Medications Ordered Filled Start Stop Current Ordering Indication Dosage Frequency Signature Comments Components Source Medication Medication Date Date Medication? Clinician (SIG) Name Name Xanax 0.5MG Xanax 0.5MG No 1{table Xanax 01-23 t} 0.5MG 00:00: 00 lidocaine 2022- No [id number] 10mL [facility] PF 12-12 Health (Xylocaine) 14:48: 14:48 1 % 48 :00 injection 10 mL bupivacaine 2022- No [id number] 8mL [facility] PF 12-12 Health (Marcaine) 14:48: 14:48 0.25 % 48 :00 injection 8 mL iohexol 2022- No [id number] 1mL UT (OMNIPaque) 12-12 Health 300 MG/ML 14:48: 14:48 injection 1 48 :00 mL triamcinolo 2022- No [id number] 80mg UT ne 12-12 Health acetonide 14:48: 14:48 (Kenalog-40 48 :00 ) injection 80 mg triamcinolo 2022- No [id number] 80mg 80 mg, UT ne 12-12 Once PRN Health acetonide 14:48: 14:48 Procedure, (Kenalog-40 48 :00 Starting ) injection on Adelina 80 mg 12/12/22 at 0948, For 1 dose iohexol 2022- No [id number] 1mL 1 mL, Once UT (OMNIPaque) 12-12 PRN Health 300 MG/ML 14:48: 14:48 Procedure, injection 1 48 :00 Starting mL on Adelina 12/12/22 at 0948, For 1 dose bupivacaine 2022-0 2022- No [id number] 8mL 8 mL, Once UT PF 12-12 PRN Health (Marcaine) 14:48: 14:48 Procedure, 0.25 % 48 :00 Starting injection 8 on Adelina mL 12/12/22 at 0948, For 1 dose lidocaine 2022-0 2022- No [id number] 10mL 10 mL, UT PF 12-12 Once PRN Health (Xylocaine) 14:48: 14:48 Procedure, 1 % 48 :00 Starting injection on Adelina 10 mL 12/12/22 at 0948, For 1 dose BD Pen BD Pen No BD Pen Needle Kylie Needle Kylie 12-12 Needle 2nd Gen 32G 2nd Gen 32G 00:00: Kylie 2nd X 4 MM X 4 MM 00 Gen 32G X 4 MM celecoxib 2022- Yes [id number] TAKE 1 UT (CeleBREX) 12-1208 CAPSULE BY [place] [facility] 200 MG 00:00: MOUTH ONCE capsule 00 DAILY triamcinolo 2022-0 2022- No [id number] 10mg UT ne 12-04 9103 Health acetonide 15:00: 15:00 (Kenalog) 00 :00 10 MG/ML injection 10 mg bupivacaine 2022-0 2022- No [id number] 1mL UT (Marcaine) 12-04 9103 Health 0.25 % 15:00: 15:00 injection 1 00 :00 mL lidocaine 2022-0 2022- No [id number] 1mL UT (Xylocaine) 12-04 9103 Health 1 % 15:00: 15:00 injection 1 00 :00 mL lidocaine 2022-0 2022- No [id number] 1mL 1 mL, UT (Xylocaine) 12-04 9103 Injection, H ealth 1 % 15:00: 15:00 Once PRN injection 1 00 :00 Procedure, mL Starting on Fri12/04/22 at 1000, For 1 dose bupivacaine 2022-0 2022- No [id number] 1mL 1 mL, UT (Marcaine) 12-04 9103 Injection, He alth 0.25 % 15:00: 15:00 Once PRN injection 1 00 :00 Procedure, mL Starting on Fri12/04/22 at 1000, For 1 dose triamcinolo 2022- No [id number] 10mg 10 mg, UT ne 12-04 9103 [facility] acetonide 15:00: 15:00 cular, (Kenalog) 00 :00 Once PRN 10 MG/ML Procedure, injection Starting 10 mg on Fri12/04/22 at 1000, For 1 dose celecoxib 2022- No [id number] 200mg QD Take 1 UT (CeleBREX) 12-04 9108 capsule Healt h 200 MG 00:00: 04:59 (200 mg capsule 00 :00 total) by mouth 1 (one) time each day. Diclofenac 2022- No [id number] Apply UT Sodium 12-04 9108 [id number] topically H ealth (Voltaren) 00:00: 04:59 3D 3 (three) 1 % 00 :00 times a external day if gel needed (pain). APPLY 4 GRAMS TO AFFECTED AREA, DO NOT EXCEED GREATER THAN 16 GRAMS A DAY Diclofenac 2022- No [id number] Apply UT Sodium 12-04 9108 [id number] topically H ealth (Voltaren) 00:00: 04:59 3D 3 (three) 1 % 00 :00 times a external day if gel needed (pain). APPLY 4 GRAMS TO AFFECTED AREA, DO NOT EXCEED GREATER THAN 16 GRAMS A DAY gabapentin Yes [id number] Take 100mg UT (Neurontin) 12-03 in the Health 100 MG 00:00: morning capsule 00 and 100mg during lunch. To be taken along with 300mg in the evening. gabapentin Yes [id number] Take 100mg UT (Neurontin) 12-03 in the Health 100 MG 00:00: morning capsule 00 and 100mg during lunch. To be taken along with 300mg in the evening. gabapentin Yes [id number] Take 100mg UT (Neurontin) 6-06 in the Health 100 MG 00:00: morning capsule 00 and 100mg during lunch. To be taken along with 300mg in the evening. gabapentin 2023-0 Yes [id number] Take 100mg UT (Neurontin) 6-06 in the Health 100 MG 00:00: morning capsule 00 and 100mg during lunch. To be taken along with 300mg in the evening. dicyclomine 2023-0 Yes TAKE 1 UT (Bentyl) 20 5-30 TABLET BY Hea lth MG tablet 14:43: MOUTH 4 40 TIMES DAILY NEEDED FOR ABDOMINAL CRAMP/PAIN for 30 empaglifloz 2023-0 Yes 10mg QD Take 10 mg UT in 5-30 by mouth 1 Health (Jardiance) 14:43: (one) time 10 MG 40 each day. ertuglifloz 2023-0 Yes 1 (one) UT in 5-30 time each Health (Steglatro) 14:43: day at the 40 same time. gabapentin 2023-0 Yes 300mg QD Take 300 UT (Neurontin) 5-30 mg by Health 300 MG 14:43: mouth 1 capsule 40 (one) time each day. glimepiride 2023-0 Yes Take 1 UT (Amaryl) 4 5-30 tablet by Heal th MG tablet 14:43: mouth 40 twice daily with food for 90 dicyclomine 2023-0 Yes TAKE 1 UT (Bentyl) 20 5-30 TABLET BY Hea lth MG tablet 14:43: MOUTH 4 40 TIMES DAILY NEEDED FOR ABDOMINAL CRAMP/PAIN for 30 empaglifloz 2023-0 Yes 10mg QD Take 10 mg UT in 5-30 by mouth 1 Health (Jardiance) 14:43: (one) time 10 MG 40 each day. ertuglifloz 2023-0 Yes 1 (one) UT in 5-30 time each Health (Steglatro) 14:43: day at the 40 same time. gabapentin 2023-0 Yes 300mg QD Take 300 UT (Neurontin) 5-30 mg by Health 300 MG 14:43: mouth 1 capsule 40 (one) time each day. glimepiride 2023-0 Yes Take 1 UT (Amaryl) 4 5-30 tablet by Heal th MG tablet 14:43: mouth 40 twice daily with food for 90 dicyclomine 2023-0 Yes TAKE 1 UT (Bentyl) 20 5-30 TABLET BY Hea lth MG tablet 14:43: MOUTH 4 40 TIMES DAILY NEEDED FOR ABDOMINAL CRAMP/PAIN for 30 empaglifloz 2023-0 Yes 10mg QD Take 10 mg UT in 5-30 by mouth 1 Health (Jardiance) 14:43: (one) time 10 MG 40 each day. ertuglifloz 2023-0 Yes 1 (one) UT in 5-30 time each Health (Steglatro) 14:43: day at the 40 same time. gabapentin 2023-0 Yes 300mg QD Take 300 UT (Neurontin) 5-30 mg by Health 300 MG 14:43: mouth 1 capsule 40 (one) time each day. glimepiride 2023-0 Yes Take 1 UT (Amaryl) 4 5-30 tablet by Heal th MG tablet 14:43: mouth 40 twice daily with food for 90 dicyclomine 2023-0 Yes TAKE 1 UT (Bentyl) 20 5-30 TABLET BY Hea lth MG tablet 14:43: MOUTH 4 40 TIMES DAILY NEEDED FOR ABDOMINAL CRAMP/PAIN for 30 empaglifloz 2023-0 Yes 10mg QD Take 10 mg UT in 5-30 by mouth 1 Health (Jardiance) 14:43: (one) time 10 MG 40 each day. ertuglifloz 2023-0 Yes 1 (one) UT in 5-30 time each Health (Steglatro) 14:43: day at the 40 same time. gabapentin 2023-0 Yes 300mg QD Take 300 UT (Neurontin) 5-30 mg by Health 300 MG 14:43: mouth 1 capsule 40 (one) time each day. glimepiride 2023-0 Yes Take 1 UT (Amaryl) 4 5-30 tablet by Heal th MG tablet 14:43: mouth 40 twice daily with food for 90 dicyclomine 2023-0 Yes TAKE 1 UT (Bentyl) 20 5-30 TABLET BY Hea lth MG tablet 14:43: MOUTH 4 40 TIMES DAILY NEEDED FOR ABDOMINAL CRAMP/PAIN for 30 empaglifloz 2023-0 Yes 10mg QD Take 10 mg UT in 5-30 by mouth 1 Health (Jardiance) 14:43: (one) time 10 MG 40 each day. ertuglifloz 202-0 Yes 1 (one) UT in 5-30 time each Health (Steglatro) 14:43: day at the 40 same time. gabapentin 2022-0 Yes 300mg QD Take 300 UT (Neurontin) 5-30 mg by Health 300 MG 14:43: mouth 1 capsule 40 (one) time each day. glimepiride 2022-0 Yes Take 1 UT (Amaryl) 4 5-30 tablet by Heal th MG tablet 14:43: mouth 40 twice daily with food for 90 HumaLOG 2022-0 Yes USE PER UT KWIKPEN 200 3-30 SLIDING Healt h UNIT/ML 00:00: SCALE solution 00 BEFORE pen-injecto MEALS AT r injection BEDTIME MAX OF 30 UNITS UNDER THE SKIN (SUBQCUTAN EOUS) DAILY HumaLOG 2022-0 Yes USE PER UT KWIKPEN 200 3-30 SLIDING Healt h UNIT/ML 00:00: SCALE solution 00 BEFORE pen-injecto MEALS AT r injection BEDTIME MAX OF 30 UNITS UNDER THE SKIN (SUBQCUTAN EOUS) DAILY HumaLOG 0 Yes USE PER UT KWIKPEN 200 3-30 SLIDING Healt h UNIT/ML 00:00: SCALE solution 00 BEFORE pen-injecto MEALS AT r injection BEDTIME MAX OF 30 UNITS UNDER THE SKIN (SUBQCUTAN EOUS) DAILY HumaLOG 0 Yes USE PER UT KWIKPEN 200 3-30 SLIDING Healt h UNIT/ML 00:00: SCALE solution 00 BEFORE pen-injecto MEALS AT r injection BEDTIME MAX OF 30 UNITS UNDER THE SKIN (SUBQCUTAN EOUS) DAILY HumaLOG 0 Yes USE PER UT KWIKPEN 200 3-30 SLIDING Healt h UNIT/ML 00:00: SCALE solution 00 BEFORE pen-injecto MEALS AT r injection BEDTIME MAX OF 30 UNITS UNDER THE SKIN (SUBQCUTAN EOUS) DAILY sertraline 2022-0 Yes 200mg QD Take 200 UT (Zoloft) 2-26 mg by Health 100 MG 00:00: mouth 1 tablet 00 (one) time each day. sertraline 202-0 Yes 200mg QD Take 200 UT (Zoloft) 2-26 mg by Health 100 MG 00:00: mouth 1 tablet 00 (one) time each day. sertraline 2023-0 Yes 200mg QD Take 200 UT (Zoloft) 2-26 mg by Health 100 MG 00:00: mouth 1 tablet 00 (one) time each day. sertraline 2023-0 Yes 200mg QD Take 200 UT (Zoloft) 2-26 mg by Health 100 MG 00:00: mouth 1 tablet 00 (one) time each day. sertraline 2023-0 Yes 200mg QD Take 200 UT (Zoloft) 2-26 mg by Health 100 MG 00:00: mouth 1 tablet 00 (one) time each day. dicyclomine 2022-0 Yes TAKE 1 UT (Bentyl) 20 2-21 TABLET BY Hea lth MG tablet 13:19: MOUTH 4 31 TIMES DAILY NEEDED FOR ABDOMINAL CRAMP/PAIN for 30 empaglifloz 2022-0 Yes 10mg QD Take 10 mg UT in 2-21 by mouth 1 Health (Jardiance) 13:19: (one) time 10 MG 31 each day. ertuglifloz 3-0 Yes 1 (one) UT in 2-21 time [...] daily with food for 90 methylPREDN methylPREDN 2022-2022- No methylPRED ISolone 4 ISolone 4 08-08 NISolone 4 MG MG 00:00: 00:00 MG 00 :00 Azithromyci Azithromyci 2022-0 2022- No QD Azithromyc n 250 MG n 250 MG 08-08 in 250 MG 00:00: 00:00 00 :00 Benzonatate Benzonatate 2022-2022- No 1{capsu Benzonatat 200 MG 200 MG 08-06 le_as_n e 200 MG 00:00: 00:00 eeded} 00 :00 Benzonatate Benzonatate 2022-0 2022- No 1{capsu Benzonatat 200 MG 200 MG 08-06 le_as_n e 200 MG 00:00: 00:00 eeded} 00 :00 Benzonatate Benzonatate 2022-0 2023- No 1{capsu Benzonatat 200 MG 200 MG 08-06 le_as_n e 200 MG 00:00: 00:00 eeded} 00 :00 metFORMIN 2022-0 Yes 500mg Take [address] [facility] (GLUCOPHAGE 2-02 mg by [facility] ) 500 MG 11:27: mouth 2 Medica l tablet 22 (two) Center times daily with breakfast and dinner. glimepiride 2022-0 Yes 4mg Take [address] (AMARYL) 4 2-02 by mouth 2 [facility] es MG tablet 11:27: (two) Medical 22 times Center daily before meals. sertraline 2022-0 Yes 50mg Take 50 mg [...] [facility] es mg tablet 11:27: Medical 22 Center insulin 2022-[address] [facility] lispro 2-02 subcutaneo [facility] (HumaLOG 11:27: usly. Medical KwikPen 22 Center Insulin) 200 unit/mL (3 mL) InPn metFORMIN 0 Yes 500mg Take [address] (GLUCOPHAGE 2-02 mg by [facility] ) 500 MG 11:27: mouth 2 Medica l tablet 22 (two) Center times daily with breakfast and dinner. glimepiride 2022-0 Yes 4mg Take [address] (AMARYL) 4 2-02 by mouth 2 [facility] MG tablet 11:27: (two) Medical 22 times Center daily before meals. sertraline 2022-0 Yes 50mg Take [address] (ZOLOFT) 50 -02 by mouth Luke s MG tablet 11:27: Daily Medical 22 (1800) . Center gabapentin Yes 300mg QD Take [address] (NEURONTIN) 2-02 mg by [facility] 300 MG 11:27: mouth Medical capsule 22 every Center evening. insulin Yes 86U QD Inject 86 [facility] degludec 2-02 Units [facility] (TRESIBA 11:27: subcutaneo Med ical U-100 22 usly every Center INSULIN morning. SUBQ) dicyclomine Yes 20mg Take [address] (BENTYL) 20 02 by mouth. [facility] es mg tablet 11:27: Medical 22 [place] insulin Yes Inject [facility] lispro 02 subcutaneo [facility] (HumaLOG 11:27: usly. Medical KwikPen 22 [place] Insulin) 200 unit/mL (3 mL) InPn empaglifloz Yes 10mg QD Take [address] in 02 by mouth [facility] (JARDIANCE) 11:25: daily. Medi michele 10 mg 29 Center tablet empaglifloz Yes 10mg QD Take [address] in -02 by mouth [facility] (JARDIANCE) 11:25: daily. Medi [...] Take 1,000 UT (Glucophage 2-29 mg by Health ) 500 MG 00:00: mouth in tablet 00 the morning and 1,000 mg in the evening. Take with meals. metFORMIN 2021-1 Yes 1000mg Take 1,000 UT (Glucophage 2-29 mg by Health ) 500 MG 00:00: mouth in tablet 00 the morning and 1,000 mg in the evening. Take with meals. metFORMIN 2021-1 Yes 1000mg Take 1,000 UT (Glucophage 2-29 mg by Health ) 500 MG 00:00: mouth in tablet 00 the morning and 1,000 mg in the evening. Take with meals. metFORMIN 2021-1 Yes 1000mg Take 1,000 UT (Glucophage 2-29 mg by Health ) 500 MG 00:00: mouth in tablet 00 the morning and 1,000 mg in the evening. Take with meals. metFORMIN 2021-1 Yes 1000mg Take 1,000 UT (Glucophage 2-29 mg by Health ) 500 MG 00:00: mouth in tablet 00 the morning and 1,000 mg in the evening. Take with meals. metFORMIN 2021-1 Yes 1000mg Take 1,000 UT (Glucophage 2-29 mg by Health ) 500 MG 00:00: mouth in tablet 00 the morning and 1,000 mg in the evening. Take with meals. linaCLOtide 2021-06 Yes 1{capsu Take 1 U T (Linzess) 2-05 le} capsule by [facility] 72 MCG 00:00: mouth 1 capsule 00 (one) time each day in the evening. linaCLOtide 2021-06 Yes 1{capsu Take 1 U T (Linzess) 2-05 le} capsule by [facility] 72 MCG 00:00: mouth 1 capsule 00 (one) time each day in the evening. linaCLOtide 2021- Yes 1{capsu Take 1 U T (Linzess) 2-05 le} capsule by [facility] 72 MCG 00:00: mouth 1 capsule 00 (one) time each day in the evening. linaCLOtide 2021- Yes 1{capsu Take 1 U T (Linzess) 2-05 le} capsule by [facility] 72 MCG 00:00: mouth 1 capsule 00 (one) time each day in the evening. linaCLOtide 2021- Yes 1{capsu Take 1 U T (Linzess) 2-05 le} capsule by [facility] 72 MCG 00:00: mouth 1 capsule 00 (one) time each day in the evening. linaCLOtide 2021-06 Yes 1{capsu Take 1 U T (Linzess) 2-05 le} capsule by [facility] th 72 MCG 00:00: mouth 1 capsule 00 (one) time each day in the evening. atorvastati 2021-06 Yes 20mg QD Take 20 mg UT n (Lipitor) 2-03 by mouth 1 He alth 20 MG 00:00: (one) time tablet 00 each day. atorvastati 2021-06 Yes 20mg QD Take 20 mg UT n (Lipitor) 2-03 by mouth 1 He alth 20 MG 00:00: (one) time tablet 00 each day. atorvastati 2021-06 Yes 20mg QD Take 20 mg UT n (Lipitor) 2-03 by mouth 1 He alth 20 MG 00:00: (one) time tablet 00 each day. atorvastati 2021-06 Yes 20mg QD Take 20 mg UT n (Lipitor) 2-03 by mouth 1 He alth 20 MG 00:00: (one) time tablet 00 each day. atorvastati 2021-06 Yes 20mg QD Take 20 mg UT n (Lipitor) 2-03 by mouth 1 He alth 20 MG 00:00: (one) time tablet 00 each day. atorvastati 2021-06 Yes 20mg QD Take 20 mg UT n (Lipitor) 2-03 by mouth 1 He alth 20 MG 00:00: (one) time tablet 00 each day. Cipro 500 Cipro 500 2021-06- No 1{table [...] t} 0.5MG 00:00: 00 meloxicam 2021-06 Yes TAKE 1 UT (Mobic) 7.5 1-08 TABLET BY Hea lth MG tablet 00:00: MOUTH 1 00 ONCE DAILY FOR 30 DAYS meloxicam 2021-06 Yes TAKE 1 UT (Mobic) 7.5 1-08 TABLET BY Hea lth MG tablet 00:00: MOUTH 1 00 ONCE DAILY FOR 30 DAYS meloxicam 2021-06 Yes TAKE 1 UT (Mobic) 7.5 1-08 TABLET BY Hea lth MG tablet 00:00: MOUTH 1 00 ONCE DAILY FOR 30 DAYS meloxicam 2021-06 Yes TAKE 1 UT (Mobic) 7.5 1-08 TABLET BY Hea lth MG tablet 00:00: MOUTH 1 00 ONCE DAILY FOR 30 DAYS meloxicam 2021-06 Yes TAKE 1 UT (Mobic) 7.5 1-08 TABLET BY Hea lth MG tablet 00:00: MOUTH 1 00 ONCE DAILY FOR 30 DAYS meloxicam 2021-06 Yes TAKE 1 UT (Mobic) 7.5 1-08 TABLET BY Hea lth MG tablet 00:00: MOUTH 1 00 ONCE DAILY FOR 30 DAYS meloxicam 2021-06 Yes 7.5mg QD Take 7.[address] (MOBIC) 7.5 1-08 mg by [facility] MG tablet 00:00: mouth Medical 00 daily. [place] meloxicam 2021-06 Yes 7.5mg QD Take 7.[address] (MOBIC) 7.5 1-08 mg by [facility] MG tablet 00:00: mouth Medical 00 daily. [place] Continuous Yes USE UT Blood Gluc 9-26 DIRECTED Healt h Sensor 00:00: TO CHECK (FreeStyle 00 BLOOD Tay 2 SUGARS FOR Sensor) 14 DAYS misc DIRECTED Continuous Yes USE UT Blood Gluc 9-26 DIRECTED Healt h Sensor 00:00: TO CHECK (FreeStyle 00 BLOOD Tay 2 SUGARS FOR Sensor) 14 DAYS misc DIRECTED Continuous Yes USE UT Blood Gluc 9-26 DIRECTED Healt h Sensor 00:00: TO CHECK (FreeStyle 00 BLOOD Tay 2 SUGARS FOR Sensor) 14 DAYS misc DIRECTED Continuous Yes USE UT Blood Gluc 9-26 DIRECTED Healt h Sensor 00:00: TO CHECK (FreeStyle 00 BLOOD Tay 2 SUGARS FOR Sensor) 14 DAYS misc DIRECTED Continuous Yes USE UT Blood Gluc 9-26 DIRECTED Healt h Sensor 00:00: TO CHECK (FreeStyle 00 BLOOD Tay 2 SUGARS FOR Sensor) 14 DAYS misc DIRECTED Continuous Yes USE UT Blood Gluc 9-26 DIRECTED Healt h Sensor 00:00: TO CHECK (FreeStyle 00 BLOOD Tay 2 SUGARS FOR Sensor) 14 DAYS misc DIRECTED metFORMIN Yes 500mg Take [address] [facility] [...] QD Take [address] [facility] ([facility] 08:25: daily. Medi [...] Daily Medical 51 (1800) . Center gabapentin 0 Yes 300mg QD Take [address] (NEURONTIN) 9-12 [facility] by [facility] 300 [facility] 08:25: mouth Medical capsule 51 every Center evening. insulin 0 Yes 86U QD Inject 86 [facility] de[facility]udec 9-12 Units [facility] ([place] 08:25: subcutaneo Med ical U-100 51 usly every Center INSULIN morning. SUBQ) ALPRAZolam ALPRAZolam No ALPRAZolam 0.5 MG 0.5 [...] MG 8-29 0.5 MG 00:00: 00 ALPRAZolam 2021-0 Yes 1{tbl} Take [address] [facility] (XANAX) 0.5 8-29 tablet by [place] es MG tablet 00:00: mouth Medical 00 daily as Center needed. ALPRAZolam 0 Yes 1{tbl} Take [address] [facility] (XANAX) 0.5 8-29 tablet by [place] MG tablet 00:00: mouth Medical 00 daily as Center needed. Pantoprazol Pantoprazol No 1{table QD Pantoprazo e [...] MG 00:00: 40 MG 00 Pantoprazol Pantoprazol 2022-0 No 1{table QD Pantoprazo e Sodium 40 e Sodium 40 8-08 t} le Sodium MG MG 00:00: 40 MG 00 Pantoprazol Pantoprazol 2021-0 No 1{table QD Pantoprazo e Sodium 40 e Sodium 40 8-08 t} le Sodium MG MG 00:00: 40 MG 00 Pantoprazol Pantoprazol 2-0 No 1{table QD Pantoprazo e Sodium 40 [...] MG 00:00: 40 MG 00 Pantoprazol Pantoprazol 2-0 No 1{table QD Pantoprazo e Sodium 40 [...] MG 00:00: 40 MG 00 Pantoprazol Pantoprazol 2-0 No 1{table QD Pantoprazo e Sodium 40 e Sodium 40 8-08 t} le Sodium MG MG 00:00: 40 MG 00 Pantoprazol Pantoprazol 2022-0 No 1{table QD Pantoprazo e Sodium 40 e Sodium 40 8-08 t} le Sodium MG MG 00:00: 40 MG 00 Pantoprazol Pantoprazol 2022-0 No 1{table QD Pantoprazo e Sodium 40 e Sodium 40 8-08 t} le Sodium MG MG 00:00: 40 MG 00 Pantoprazol Pantoprazol 2022-0 No 1{table QD Pantoprazo e Sodium 40 e Sodium 40 8-08 t} le Sodium MG MG 00:00: 40 MG 00 pantoprazol 2022-0 Yes 1 (one) UT e 8-08 time each Health (ProtoNix) 00:00: day at the 40 MG EC 00 same time. tablet pantoprazol 2022-0 Yes 1 (one) UT e 8-08 time each Health (ProtoNix) 00:00: day at the 40 MG EC 00 same time. tablet pantoprazol 2022-0 Yes 1 (one) UT e 8-08 time each Health (ProtoNix) 00:00: day at the 40 MG EC 00 same time. tablet pantoprazol 2022-0 Yes 1 (one) UT e 8-08 time each Health (ProtoNix) 00:00: day at the 40 MG EC 00 same time. tablet pantoprazol 2022-0 Yes 1 (one) UT e 8-08 time each Health (ProtoNix) 00:00: day at the 40 MG EC 00 same time. tablet traZODone 2022-0 Yes 1 (one) UT (Desyrel) 8-03 time each Healt h 50 MG 00:00: day at the tablet 00 same time. traZODone 2022-0 Yes 1 (one) UT (Desyrel) 8-03 time each Healt h 50 MG 00:00: day at the tablet 00 same time. traZODone 2022-0 Yes 1 (one) UT (Desyrel) 8-03 time each Healt h 50 MG 00:00: day at the tablet 00 same time. traZODone 2022-0 Yes 1 (one) UT (Desyrel) 8-03 time each Healt h 50 MG 00:00: day at the tablet 00 same time. traZODone 2022-0 Yes 1 (one) UT (Desyrel) 8-03 time each Healt h 50 MG 00:00: day at the tablet 00 same time. traZODone 2-0 Yes 1 (one) UT (Desyrel) [...] 0.5 MG 7-19 0.5 MG 00:00: 00 insulin 2021-0 Yes 1 (one) UT degludec 01-03 time each Health (Tresiba 00:00: day at the FlexTouch) 00 same time. 200 UNIT/ML injection insulin 2021-0 Yes 1 (one) UT degludec 7-07 time each Health ([place] 00:00: day at the FlexTouch) 00 same time. 200 UNIT/ML injection insulin 2-0 Yes 1 (one) UT degludec -07 time each Health ([place] 00:00: day at the FlexTouch) 00 same time. 200 UNIT/ML injection insulin 2-0 Yes 1 (one) UT degludec - time each Health ([place] 00:00: day at the FlexTouch) 00 same time. 200 UNIT/ML injection insulin 2-0 Yes 1 (one) UT degludec 7- time each Health ([place] 00:00: day at the FlexTouch) 00 same time. 200 UNIT/ML injection insulin 2-0 Yes 1 (one) UT degludec 7-07 time each Health ([place] 00:00: day at the FlexTouch) 00 same time. 200 UNIT/ML injection ALPRAZolam ALPRAZolam 2021-0 No QD ALPRAZolam 0.5 [...] 3-23 0.5 MG 00:00: 00 ALPRAZolam ALPRAZolam 2022-0 No ALPRAZolam 0.5 MG 0.5 MG 3-23 0.5 MG 00:00: 00 omeprazole 2-0 Yes 20mg QD Take 20 mg U [facility] (PriLOSEC) 3-01 by mouth [facility] [address] 00:00: (one) time capsule 00 each day. omeprazole 2022-0 Yes 20mg QD Take 20 mg [facility] (PriLOSEC) 3-01 by mouth 1 [facility] [address] 00:00: (one) time capsule 00 each day. omeprazole 2022-0 Yes 20mg QD Take 20 mg U [facility] (PriLOSEC) 3-01 by mouth 1 [facility] [address] 00:00: (one) time capsule 00 each day. omeprazole 2022-0 Yes 20mg QD Take 20 mg U T (PriLOSEC) 3-01 by mouth [facility] [address] 00:00: (one) time capsule 00 each day. omeprazole 2022-0 Yes 20mg QD Take 20 mg U T (PriLOSEC) 3-01 by mouth 1 [facility] [address] 00:00: (one) time capsule 00 each day. omeprazole 2022-0 Yes 20mg QD Take 20 mg U [...] 2-22 t} MG 00:00: 00 ALPRAZolam ALPRAZolam 2-0 No [...] MG 2-16 0.5 MG 00:00: 00 ALPRAZolam 2-0 Yes 1 (one) UT (Xanax) 0.5 2-16 time each [facility]a [facility]th MG tablet 00:00: day at the 00 same time. ALPRAZolam 2021-0 Yes 1 (one) UT (Xanax) 0.5 2-16 time each Hea lth MG tablet 00:00: day at the 00 same time. ALPRAZolam 2021-0 Yes 1 (one) UT (Xanax) 0.5 2-16 time each [facility]a lth MG tablet 00:00: day at the 00 same time. ALPRAZolam Yes 1 (one) UT (Xanax) 0.5 2-16 time each [facility]a [facility]th MG tablet 00:00: day at the 00 same time. ALPRAZolam Yes 1 (one) UT (Xanax) 0.5 2-16 time each Hea [facility]th MG tablet 00:00: day at the 00 same time. ALPRAZolam 0 Yes 1 (one) UT (Xanax) 0.5 2-16 [...] Azithromyc n 250 MG n 250 MG 07-2127 in 250 MG 00:00: 00:00 00 :00 [...] Tay 2 Tay 2 0-07 Tay 2 [place] - 00:00: [place] - 00 Neomycin-Po Neomycin-Po 2020-06 No 4{drops BID Neomycin-P lymyxin-HC lymyxin-HC 0-07 _into_a olymyxin-H 3.5-33419-5 3.5-01310-6 00:00: ffected C 00 _ear} 3.5-63167- 1 FreeStyle FreeStyle 2021-1 No FreeStyle Tay 2 Tay 2 0-07 Tay 2 [place] - 00:00: [place] - 00 FreeStyle FreeStyle 2020-06 No FreeStyle Tay 14 Tay 14 0-07 Tay 14 Day Sensor Day Sensor 00:00: Day Sensor - - 00 - Neomycin-Po Neomycin-Po 2020-06 No 4{drops BID Neomycin-P lymyxin-HC lymyxin-HC 0-07 _into_a olymyxin-H 3.5-42658-4 3.5-34655-3 00:00: ffected C 00 _ear} 3.5-04264- 1 Neomycin-Po Neomycin-Po 2020-06 No 4{drops BID Neomycin-P lymyxin-HC lymyxin-HC 0-07 _into_a olymyxin-H 3.5-70455-0 3.540500-5 00:00: ffected C 00 _ear} 3.5-30820- 1 FreeStyle FreeStyle 2020-06 No FreeStyle Tay 14 Tay 14 0-07 Tay 14 Day Sensor Day Sensor 00:00: Day Sensor - - 00 - FreeStyle FreeStyle 2020-06 No FreeStyle Tay 2 Tay 2 0-07 Tay 2 [place] - 00:00: [place] - 00 FreeStyle FreeStyle 2020-06 No FreeStyle Tay 14 Tay 14 0-07 Tay 14 Day Sensor Day Sensor 00:00: Day Sensor - - 00 - Neomycin-Po Neomycin-Po 2020-06 No 4{drops BID Neomycin-P lymyxin-HC lymyxin-HC 0-07 _into_a olymyxin-H 3.571769-8 3.556993-4 00:00: ffected C 00 _ear} 3.583511- 1 FreeStyle FreeStyle 2020-06 No FreeStyle Tay 2 Tay 2 0-07 Tay 2 [place] - 00:00: [place] - 00 FreeStyle FreeStyle 2020-06 No FreeStyle Tay 14 Tay 14 0-07 Tay 14 Day Sensor Day Sensor 00:00: Day Sensor - - 00 - Neomycin-Po Neomycin-Po 2020-06 No 4{drops BID Neomycin-P lymyxin-HC lymyxin-HC 0-07 _into_a olymyxin-H 3.545357-0 3.547178-2 00:00: ffected C 00 _ear} 3.536306- 1 FreeStyle FreeStyle 2020-06 No FreeStyle Tay 2 Tay 2 0-07 Tay 2 [place] - 00:00: [place] - 00 FreeStyle FreeStyle 2020-06 No FreeStyle Tay 14 Tay 14 0-07 Tay 14 Day Sensor Day Sensor 00:00: Day Sensor - - 00 - Neomycin-Po Neomycin-Po 2020-06 No 4{drops BID Neomycin-P lymyxin-HC lymyxin-HC 0-07 _into_a olymyxin-H 3.534915-4 3.-1 00:00: ffected C 00 _ear} 3.5- 1 FreeStyle FreeStyle 2020-06 No FreeStyle Tay 2 Tay 2 0-07 Tay 2 [place] - 00:00: [place] - 00 FreeStyle FreeStyle 2020-06 No FreeStyle Tay 14 Tay 14 0-07 Tay 14 Day Sensor Day Sensor 00:00: Day Sensor - - 00 - FreeStyle FreeStyle 2020-06 No FreeStyle Tay 2 Tay 2 0-07 Tay 2 [place] - 00:00: [place] - 00 Neomycin-Po Neomycin-Po 2020-06 No 4{drops BID Neomycin-P lymyxin-HC lymyxin-HC 0-07 _into_a olymyxin-H 3.555251-4 3.-1 00:00: ffected C 00 _ear} 3.5- 1 FreeStyle FreeStyle 2020-06 No FreeStyle Tay 2 Tay 2 0-07 Tay 2 [place] - 00:00: [place] - 00 FreeStyle FreeStyle 2020-06 No FreeStyle Tay 14 Tay 14 0-07 Tay 14 Day Sensor Day Sensor 00:00: Day Sensor - - 00 - Neomycin-Po Neomycin-Po 2020-06 No 4{drops BID Neomycin-P lymyxin-HC lymyxin-HC 0-07 _into_a olymyxin-H 3.517009-2 3.5-76619-7 00:00: ffected C 00 _ear} 3.5-18890- 1 FreeStyle FreeStyle 2020-06 No FreeStyle Tay 2 Tay 2 0-07 Tay 2 [place] - 00:00: [place] - 00 FreeStyle FreeStyle 2020-06 No FreeStyle Tay 14 Tay 14 0-07 Tay 14 Day Sensor Day Sensor 00:00: Day Sensor - - 00 - Neomycin-Po Neomycin-Po 2020-06 No 4{drops BID Neomycin-P lymyxin-HC lymyxin-HC 0-07 _into_a olymyxin-H 3.5-76514-8 3.5-96321-3 00:00: ffected C 00 _ear} 3.505530- 1 FreeStyle FreeStyle 2020-06 No FreeStyle Tay 14 Tay 14 0-07 Tay 14 Day Sensor Day Sensor 00:00: Day Sensor - - 00 - FreeStyle FreeStyle 2020-06 No FreeStyle Tay 2 Tay 2 0-07 Tay 2 [place] - 00:00: [place] - 00 Neomycin-Po Neomycin-Po 2020-06 No 4{drops BID Neomycin-P lymyxin-HC lymyxin-HC 0-07 _into_a olymyxin-H 3.590778-2 3.504262-4 00:00: ffected C 00 _ear} 3.543563- 1 FreeStyle FreeStyle 2020-06 No FreeStyle Tay 14 Tay 14 0-07 Tay 14 Day Sensor Day Sensor 00:00: Day Sensor - - 00 - FreeStyle FreeStyle 2020-06 No FreeStyle Tay 2 Tay 2 0-07 Tay 2 [place] - 00:00: [place] - 00 Neomycin-Po Neomycin-Po 2020-06 No 4{drops BID Neomycin-P lymyxin-HC lymyxin-HC 0-07 _into_a olymyxin-H 3.5-11772-5 3.5-40534-7 00:00: ffected C 00 _ear} 3.5-28094- 1 Neomycin-Po Neomycin-Po 2020-06 No 4{drops BID Neomycin-P lymyxin-HC lymyxin-HC 0-07 _into_a olymyxin-H 3.5-29483-7 3.539320-5 00:00: ffected C 00 _ear} 3.5- 1 FreeStyle FreeStyle 2020-06 No FreeStyle Tay 2 Tay 2 0-07 Tay 2 [place] - 00:00: [place] - 00 FreeStyle FreeStyle 2020-06 No FreeStyle Tay 14 Tay 14 0-07 Tay 14 Day Sensor Day Sensor 00:00: Day Sensor - - 00 - Neomycin-Po Neomycin-Po 2020-06 No 4{drops BID Neomycin-P lymyxin-HC lymyxin-HC 0-07 _into_a olymyxin-H 3.597938-0 3.508188-1 00:00: ffected C 00 _ear} 3.5- 1 FreeStyle FreeStyle 2020-06 No FreeStyle Tay 2 Tay 2 0-07 Tay 2 [place] - 00:00: [place] - 00 FreeStyle FreeStyle 2020-06 No FreeStyle Tay 14 Tay 14 0-07 Tay 14 Day Sensor Day Sensor 00:00: Day Sensor - - 00 - Neomycin-Po Neomycin-Po 2020-06 No 4{drops BID Neomycin-P lymyxin-HC lymyxin-HC 0-07 _into_a olymyxin-H 3.597447-7 3.596991-1 00:00: ffected C 00 _ear} 3.5- 1 FreeStyle FreeStyle 2020-06 No FreeStyle Tay 2 Tay 2 0-07 Tay 2 [place] - 00:00: [place] - 00 FreeStyle FreeStyle 2020-06 No FreeStyle Tay 14 Tay 14 0-07 Tay 14 Day Sensor Day Sensor 00:00: Day Sensor - - 00 - Neomycin-Po Neomycin-Po 2020-06 No 4{drops BID Neomycin-P lymyxin-HC lymyxin-HC 0-07 _into_a olymyxin-H 3.522931-3 3.582063-8 00:00: ffected C 00 _ear} 3.5- 1 FreeStyle FreeStyle 2020-06 No FreeStyle Tay 2 Tay 2 0-07 Tay 2 [place] - 00:00: [place] - 00 FreeStyle FreeStyle 2020-06 No FreeStyle Tay 14 Tay 14 0-07 Tay 14 Day Sensor Day Sensor 00:00: Day Sensor - - 00 - neomycin-po 2020-1 Yes Q12H every 12 UT lymyxin-hyd 0-07 (twelve) Heal th rocortisone 00:00: hours. (Cortispori 00 n) 3.5-69804-6 otic suspension neomycin-po 2020-1 Yes Q12H every 12 UT lymyxin-hyd 0-07 (twelve) Heal th rocortisone 00:00: hours. (Cortispori 00 n) 3.5-36550-8 otic suspension neomycin-po 2020-1 Yes Q12H every 12 UT lymyxin-hyd 0-07 (twelve) Heal th rocortisone 00:00: hours. (Cortispori 00 n) 3.5-14343-0 otic suspension neomycin-po 202-1 Yes Q12H every 12 UT lymyxin-hyd 0-07 (twelve) Heal th rocortisone 00:00: hours. (Cortispori 00 n) 3.5-10660-1 otic suspension neomycin-po 202-1 Yes Q12H every 12 UT lymyxin-hyd 0-07 (twelve) Heal th rocortisone 00:00: hours. (Cortispori 00 n) 3.5-96179-2 otic suspension neomycin-po 2020-1 Yes Q12H every 12 UT lymyxin-hyd 0-07 (twelve) Heal th rocortisone 00:00: hours. (Cortispori 00 n) 3.5-95793-8 otic suspension Sertraline Sertraline 2018-06 Yes Na [place] 2 tablets Common HCl HCl 2-24 [facility] 00:00: - [facility] 00 [facility] Fluticasone Fluticasone 2018-06 No 1{spray QD [...] MG tablet 10:01: daily. Medica l [facility] [place] empaglifloz 2016-06 Yes 10mg QD Take [address] [facility] 1-10 [facility] 10:01: daily. Medi michele 10 mg 13 Center tablet sertraline 2016-06 Yes 50mg QD Take [address] (ZOLO[place]) 50 1-10 by mouth [facility] MG tablet 10:01: daily. Medica l [facility] [place] glimepiride 2016-06 Yes 4mg Take 4 mg [...] [address] [facility] (GLUCOPHAGE 1-10 mg by [facility] ) 500 MG 10:01: mouth 2 Medica l tablet 12 (two) Center times daily with breakfast and dinner. Metformin Metformin Yes Na H[place] 2 tablet Common HCl HCl with a Spirit meal - [facility] Dicyclomine Dicyclomine No Dicyclomin HCl 20 [...] HCl 20 MG e HCl 20 MG HumaLOG HumaLOG No HumaLOG KwikPen 100 KwikPen 100 KwikPen UNIT/ML UNIT/ML 100 UNIT/ML Sertraline Sertraline No 2{table QD Sertraline HCl 100 MG HCl 100 MG ts} HCl 100 MG Gabapentin Gabapentin No 1{capsu TID Gabapentin 300 MG 300 MG le} 300 MG Meloxicam Meloxicam No 1{table QD Meloxicam 7.5 MG 7.5 MG t} 7.5 MG Omeprazole Omeprazole No QD Omeprazole 40 MG 40 MG 40 MG Dicyclomine Dicyclomine No Dicyclomin HCl [...] 500 MG t_with_ HCl 500 MG a_meal} metFORMIN metFORMIN No metFORMIN HCl 500 MG HCl 500 MG HCl 500 MG NovoFine NovoFine No QD NovoFine Plus 32G X Plus 32G X Plus 32G X 4 MM 4 MM 4 MM Dicyclomine Dicyclomine No QID Dicyclomin HCl 20 MG HCl 20 MG e HCl 20 MG Zofran 4 MG Zofran 4 MG No 1{table Zofran 4 t} MG Glimepiride Glimepiride No 1{table BID Glimepirid 4 MG 4 MG t_with_ e 4 MG a_meal} Famotidine Famotidine No 1{table BID [...] Tay 14 Tay 14 Tay 14 Day [place] Day [place] Day [place] - - - metFORMIN metFORMIN No 2{table [...] Tay 14 Tay 14 Tay 14 Day [place] Day [place] Day [place] - - - Famotidine Famotidine No 1{table [...] Tay 14 Tay 14 Tay 14 Day [place] Day [place] Day [place] - - - traZODone traZODone No 1{table [...] UNIT/ML FreeStyle FreeStyle No FreeStyle Tay 14 Aty 14 Tay 14 Day Sensor Day Sensor [...] Tay 14 Tay 14 Tay 14 Day [place] Day [place] Day [place] - - - Dicyclomine Dicyclomine No QID [...] Tay 14 Tay 14 Tay 14 Day [place] Day [place] Day [place] - - - Dicyclomine Dicyclomine No QID [...] Tay 14 Tay 14 Tay 14 Day [place] Day [place] Day [place] - - - Dicyclomine Dicyclomine No QID [...] Tay 14 Tay 14 Tay 14 Day [place] Day [place] Day [place] - - - traZODone traZODone No traZODone [...] Tay 14 Tay 14 Tay 14 Day [place] Day [place] Day [place] - - - Famotidine Famotidine No 1{table [...] Tay 14 Tay 14 Tay 14 Day [place] Day [place] Day [place] - - - FreeStyle FreeStyle No FreeStyle [...] Tay 14 Tay 14 Tay 14 Day [place] Day [place] Day [place] - - - Famotidine Famotidine No 1{table [...] Tay 14 Tay 14 Tay 14 Day [place] Day [place] Day [place] - - - Tobramycin Tobramycin No 1{drop_ [...] Tay 14 Tay 14 Tay 14 Day [place] Day [place] Day [place] - - - Omeprazole Omeprazole No 1{capsu [...] Tay 14 Tay 14 Tay 14 Day [place] Day [place] Day [place] - - - Omeprazole Omeprazole No 1{capsu [...] Tay 14 Tay 14 Tay 14 Day [place] Day [place] Day [place] - - - Omeprazole Omeprazole No 1{capsu [...] Tay 14 Tay 14 Tay 14 Day [place] Day [place] Day [place] - - - Omeprazole Omeprazole No 1{capsu [...] MG HCl 100 MG HCl 100 MG Vital Signs Vital Name Observation Time Observation Value Comments Source Systolic blood 2023-01-14 16:31:00 152 mm[Hg] [facility] pressure Diastolic blood 2023-01-14 16:31:00 75 mm[Hg] [facility] pressure Heart rate 2023-01-14 16:31:00 80 /min [facility] height 2022-12-04 15:11:00 162.6 cm [facility] weight 2022-12-04 15:11:00 75.297 kg [facility] BMI 2022-12-04 15:11:00 28.49 kg/m2 [facility] Systolic blood 2022-11-26 19:43:00 122 mm[Hg] [facility] pressure Diastolic blood 2022-11-26 19:43:00 70 mm[Hg] [facility] pressure Heart rate 2022-11-26 19:43:00 93 /min [facility] Body weight 2022-11-26 19:43:00 75.297 kg [facility] height 2022-08-06 15:20:00 64 [in_i] Common S pirit [facility] weight 2022-08-06 15:20:00 162 [lb_av] Common S pirit [facility] temperature 2022-08-06 15:20:00 97.8 [degF] Common S pirit [facility] bmi 2022-08-06 15:20:00 27.8 kg/m2 Common S pirit [facility] height 2022-05-09 15:00:00 64 [in_i] Common S pirit [facility] weight 2022-05-09 15:00:00 155.8 [lb_av] Common [facility] temperature 2022-05-09 15:00:00 97.8 [degF] Common S pirit [facility] bmi 2022-05-09 15:00:00 26.74 kg/m2 [facility] oximetry 2022-05-09 15:00:00 97 % [facility] S pirit [facility] respiratory rate 2022-05-09 15:00:00 15 /min Comm [facility] blood pressure 2022-05-09 15:00:00 109 mm[Hg] [facility] - systolic [facility] blood pressure 2022-05-09 15:00:00 58 mm[Hg] [facility] - diastolic [facility] height 2022-05-06 14:00:00 64 [in_i] Common S pirit [facility] weight 2022-05-06 14:00:00 157 [lb_av] Common S pirit [facility] temperature 2022-05-06 14:00:00 97.2 [degF] Common S pirit [facility] bmi 2022-05-06 14:00:00 26.95 kg/m2 Common S pirit [facility] blood pressure 2022-05-06 14:00:00 112 mm[Hg] [facility] - systolic [facility] blood pressure 2022-05-06 14:00:00 68 mm[Hg] [facility] - diastolic [facility] height 2022-02-26 16:40:00 64 [in_i] Common [facility] weight 2022-02-26 16:40:00 155 [lb_av] [facility] bmi 2022-02-26 16:40:00 26.6 kg/m2 [facility] height 2021-12-06 11:40:00 64 [in_i] [facility] weight 2021-12-06 11:40:00 154 [lb_av] Common [facility] temperature 2021-12-06 11:40:00 97.8 [degF] [facility] bmi 2021-12-06 11:40:00 26.43 kg/m2 [facility] oximetry 2021-12-06 11:40:00 98 % [facility] respiratory rate 2021-12-06 11:40:00 20 /min Comm on [facility] blood pressure 2021-12-06 11:40:00 122 mm[Hg] Common [facility] - systolic [facility] blood pressure 2021-12-06 11:40:00 59 mm[Hg] Common [facility] - diastolic [facility] height 2021-11-19 10:00:00 64 [in_i] Common [facility] weight 2021-11-19 10:00:00 152.4 [lb_av] [facility] temperature 2021-11-19 10:00:00 97.7 [degF] [facility] bmi 2021-11-19 10:00:00 26.16 kg/m2 [facility] oximetry 2021-11-19 10:00:00 97 % [facility] respiratory rate 2021-11-19 10:00:00 16 /min Comm on [facility] blood pressure 2021-11-19 10:00:00 118 mm[Hg] Common [facility] - systolic [facility] blood pressure 2021-11-19 10:00:00 57 mm[Hg] [facility] - diastolic [facility] height 2021-10-09 16:00:00 64 [in_i] Common S pirit [facility] weight 2021-10-09 16:00:00 152 [lb_av] Common S pirit [facility] temperature 2021-10-09 16:00:00 97.7 [degF] Common S pirit [facility] bmi 2021-10-09 16:00:00 26.09 kg/m2 [facility] oximetry 2021-10-09 16:00:00 98 % [facility] respiratory rate 2021-10-09 16:00:00 18 /min Comm on [facility] blood pressure 2021-10-09 16:00:00 129 mm[Hg] Common [facility] - systolic [facility] blood pressure 2021-10-09 16:00:00 60 mm[Hg] [facility] - diastolic [facility] height 2021-09-10 08:40:00 64 [in_i] Common [facility] weight 2021-09-10 08:40:00 148.8 [lb_av] [facility] temperature 2021-09-10 08:40:00 97.7 [degF] Common S pirit [facility] bmi 2021-09-10 08:40:00 25.54 kg/m2 Common S pirit [facility] oximetry 2021-09-10 08:40:00 100 % [facility] 2021-09-10 08:40:00 16 /min Comm on [facility] blood pressure 2021-09-10 08:40:00 123 mm[Hg] Common [facility] - systolic [facility] blood pressure 2021-09-10 08:40:00 58 mm[Hg] [facility] - diastolic [facility] height 2021-08-21 11:40:00 64 [in_i] Common [facility] weight 2021-08-21 11:40:00 149.4 [lb_av] Common [facility] temperature 2021-08-21 11:40:00 97.6 [degF] [facility] bmi 2021-08-21 11:40:00 25.64 kg/m2 Common [facility] oximetry 2021-08-21 11:40:00 99 % Common [facility] respiratory rate 2021-08-21 11:40:00 15 /min Comm on [facility] blood pressure 2021-08-21 11:40:00 121 mm[Hg] Common [facility] - systolic [facility] blood pressure 2021-08-21 11:40:00 57 mm[Hg] Common [facility] - diastolic [facility] height 2021-04-05 16:20:00 64 [in_i] Common [facility] weight 2021-04-05 16:20:00 157 [lb_av] [facility] temperature 2021-04-05 16:20:00 97.6 [degF] [facility] bmi 2021-04-05 16:20:00 26.95 kg/m2 [facility] oximetry 2021-04-05 16:20:00 98 % [facility] respiratory rate 2021-04-05 16:20:00 21 /min Comm on [facility] blood pressure 2021-04-05 16:20:00 120 mm[Hg] Common [facility] - systolic [facility] blood pressure 2021-04-05 16:20:00 58 mm[Hg] [facility] - diastolic [facility] Systolic blood 2022-08-01 10:52:00 110 mm[Hg] [facility] Diastolic blood 2022-08-01 10:52:00 67 mm[Hg] [facility] Heart rate 2022-08-01 10:52:00 84 /min [facility] Body temperature 2022-08-01 10:52:00 36.28 Jeannine [facility] Body height 2022-08-01 10:52:00 162.6 cm [facility] Body weight 2022-08-01 10:52:00 73.71 kg [facility] BMI 2022-08-01 10:52:00 27.89 kg/m2 [facility] Oxygen saturation in 2022-08-01 10:52:00 98 /min [facility] Arterial blood by Medical Ce nter Pulse oximetry Systolic blood 2022-03-08 10:20:00 110 mm[Hg] [facility] Diastolic blood 2022-03-08 10:20:00 61 mm[Hg] [facility] Heart rate 2022-03-08 10:20:00 70 /min [facility] Respiratory rate 2022-03-08 10:20:00 12 /min [facility] Oxygen saturation in 2022-03-08 10:20:00 95 /min [facility] Arterial blood by Medical Ce nter Pulse oximetry Body temperature 2022-03-08 09:51:00 36.5 Jeannine [facility] Body height 2022-03-08 09:19:00 162.6 cm [facility] Body weight 2022-03-08 09:19:00 75.751 kg [facility] BMI 2022-03-08 09:19:00 28.67 kg/m2 [facility] Procedures Procedure Date / Time Performing Clinician Source Performed [place] ARTHROCENTESIS ASP/INJ 2022-12-12 14:48:28 Ade Kumari [facility] MAJOR JOINT/BURSA W/OUT US CHG FLUOROSCOPIC GUIDANCE 2022-12-12 14:48:28 Ade Kumari [facility] NEEDLE PLACEMENT [place] ARTHROCENTESIS ASP/INJ 2022-12-04 15:00:00 Danial Chapa [facility] MAJOR JOINT/BURSA W/OUT US BASIC METABOLIC PANEL 2022-08-01 11:46:00 Angelina Moreira [facility] HEPATIC FUNCTION PANEL 2022-08-01 11:46:00 Angelina Moreira [facility] CBC W/PLT COUNT & AUTO 2022-08-01 11:46:00 Angelina Moreira [facility] PROTHROMBIN TIME/INR 2022-08-01 11:46:00 Angelina Moreira [facility] ALPHA FETOPROTEIN (AFP), 2022-08-01 11:46:00 Angelina Moreira [facility] TUMOR MARKER [facility] CBC W/PLT COUNT & AUTO 2022-08-01 11:46:00 Angelina Moreira [facility] REPORT OF PROCEDURE - 2022-03-08 09:57:00 Trina Perez [facility] ENDOSCOPY [facility] REPORT OF PROCEDURE - 2022-03-08 09:54:01 Trina Perez [facility] ENDOSCOPY [facility] TISSUE EXAM 2022-03-08 09:24:00 Trina Perez [facility] POCT-GLUCOSE METER 2022-03-08 09:14:00 Trina Perez [facility] EGD 2022-03-08 09:13:00 Trina Perez [facility] (ESOPHAGOGASTRODUODENOSCOP Medic al Center Y) COLONOSCOPY, WITH 2022-03-08 09:13:00 Trina Perez [facility] es POLYPECTOMY [facility] NM GASTRIC EMPTYING STUDY 2022-02-14 15:42:00 William Jessica [facility] 4 [facility] HEPATITIS A ANTIBODY, IGG 2022-01-10 13:59:00 Ivet Barboza CH I [facility] BASIC METABOLIC PANEL 2022-01-10 13:59:00 William Jessica [facility] HEPATIC FUNCTION PANEL 2022-01-10 13:59:00 AracelyWilliam suresh CH I [facility] CBC W/PLT COUNT & AUTO 2022-01-10 13:59:00 William Jessica CH I [facility] PROTHROMBIN TIME/INR 2022-01-10 13:59:00 Aracely, William Singh. [facility] LACTIC ACID, VENOUS 2022-01-10 13:59:00 Aracely, Rise J[facility] CBC W/PLT COUNT & AUTO 2022-01-10 13:59:00 AracelyWilliam suresh [facility] MR ABDOMEN WITH & WITHOUT 2022-01-03 08:59:00 Luís Greer [facility] IV CONTRAST [facility] ALPHA FETOPROTEIN (AFP), 2021-12-17 15:44:00 Luís Greer [facility] TUMOR MARKER [facility] LACTIC ACID, VENOUS 2021-12-17 15:44:00 Luís Greer [facility] CBC W/PLT COUNT & AUTO 2021-12-17 15:44:00 Luís Greer [facility] COMPREHENSIVE METABOLIC 2021-12-17 15:44:[address] [facility] BILIRUBIN, DIRECT 2021-12-17 15:44:00 Luís Greer [facility] CBC W/PLT COUNT & AUTO 2021-12-17 15:44:00 Luís Greer [facility] PROTHROMBIN TIME/INR 2021-12-17 15:44:00 Luís rGeer [facility] HEPATITIS B SURFACE 2021-12-17 15:44:00 Luís Greer [facility] ANTIGEN [facility] HEPATITIS B SURFACE 2021-12-17 15:44:00 Luís Greer [facility] ANTIBODY [facility] HEPATITIS B CORE ANTIBODY, 2021-12-17 15:44:00 Luís Greer [facility] TOTAL [facility] HEPATITIS C ANTIBODY 2021-12-17 15:44:00 Luís Greer [facility] IRON, TIBC, % SAT. 2021-12-17 15:44:00 Luís Greer [facility] (WITHOUT FERRITIN) Medical Cente r FERRITIN 2021-12-17 15:44:00 Luís Greer [facility] LSDEX-5-ECWPMIOCRAB\\, 2021-12-17 15:44:00 Luís Greer [facility] SERUM [facility] CERULOPLASMIN 2021-12-17 15:44:00 Luís Greer [facility] ANTI-NUCLEAR ANTIBODY 2021-12-17 15:44:00 Luís Greer [facility] (SAMIA) [facility] ACTIN (SMOOTH MUSCLE) 2021-12-17 15:44:00 Luís Greer [facility] ANTIBODY, IGG [facility] MITOCHONDRIA M2 ANTIBODY 2021-12-17 15:44:00 Luís Greer [facility] (IGG) [facility] Plan of Care Planned Activity Planned Date Details Comments Source Future Scheduled 2032-03-08 Screening for malignant [facility] 00:00:00 neoplasm of colon Medical Ce nter (procedure) [code = 438879056] Future Scheduled 2032-03-08 Screening for malignant [facility] 00:00:00 neoplasm of colon Medical Ce nter (procedure) [code = 335197158] Future Scheduled 2032-03-08 Screening for malignant [facility] 00:00:00 neoplasm of colon Medical Ce nter (procedure) [code = 859030524] Future Scheduled 2032-03-08 Screening for malignant [facility] 00:00:00 neoplasm of colon Medical Ce nter (procedure) [code = 919778053] Future Scheduled 2032-03-08 Screening for malignant [facility] 00:00:00 neoplasm of colon Medical Ce nter (procedure) [code = 751580559] Future Scheduled 2032-03-08 Screening for malignant [facility] 00:00:00 neoplasm of colon Medical Ce nter (procedure) [code = 299945547] Future Scheduled 2032-03-08 Screening for malignant [facility] 00:00:00 neoplasm of colon Medical Ce nter (procedure) [code = 808541510] Future Scheduled 2032-03-08 Screening for malignant [facility] 00:00:00 neoplasm of colon Medical Ce nter (procedure) [code = 036253414] Future Scheduled 2032-03-08 Screening for malignant [facility] 00:00:00 neoplasm of colon Medical Ce nter (procedure) [code = 851355206] Future Scheduled 2032-03-08 Screening for malignant [facility] 00:00:00 neoplasm of colon Medical Ce nter (procedure) [code = 842854079] Future Scheduled 2032-03-08 Screening for malignant [facility] 00:00:00 neoplasm of colon Medical Ce nter (procedure) [code = 092813116] Future Scheduled 2032-03-08 Screening for malignant [facility] 00:00:00 neoplasm of colon Medical Ce nter (procedure) [code = 485689987] Future Scheduled 2032-03-08 Screening for malignant [facility] 00:00:00 neoplasm of colon Medical Ce nter (procedure) [code = 203841653] Future Scheduled 2032-03-08 Screening for malignant [facility] 00:00:00 neoplasm of colon Medical Ce nter (procedure) [code = 421373105] Future Scheduled 2025-05-28 Lipid panel (procedure) [facility] 00:00:00 [code = 59391411] Medical Ce nter Future Scheduled 2025-05-28 Lipid panel (procedure) [facility] 00:00:00 [code = 82454237] Medical Ce nter Future Scheduled 2024-03-05 Screening for malignant [facility] 00:00:00 neoplasm of breast Medical C enter (procedure) [code = 932694596] Future Scheduled 2024-03-05 Screening for malignant [facility] 00:00:00 neoplasm of breast Medical C enter (procedure) [code = 102447652] Future Scheduled 2024-03-05 Screening for malignant [facility] 00:00:00 neoplasm of breast Medical C enter (procedure) [code = 568986379] Future Scheduled 2024-03-05 Screening for malignant [facility] 00:00:00 neoplasm of breast Medical C enter (procedure) [code = 828021758] Future Scheduled 2024-03-05 Screening for malignant [facility] 00:00:00 neoplasm of breast Medical C enter (procedure) [code = 636313276] Future Scheduled 2024-03-05 Screening for malignant [facility] 00:00:00 neoplasm of breast Medical C enter (procedure) [code = 822082953] Future Scheduled 2023-08-[address] [facility] 00:00:00 Counseling and Screening Med ical Center (12+) [code = Tobacco Cessation Counseling and Screening (12+)] Future Scheduled 2023-08-[address] [facility] 00:00:00 Counseling and Screening Med ical Center (12+) [code = Tobacco Cessation Counseling and Screening (12+)] Future Scheduled 2023-05-28 Urine screening for [facility] 00:00:00 protein (procedure) [code Id dical Center = 652388476] Future Scheduled 2023-05-28 Urine screening for [facility] 00:00:00 protein (procedure) [code Id dical Center = 128674554] Future Scheduled 2023-03-[address] [facility] 00:00:00 Counseling and Screening Med ical Center (12+) [code = Tobacco Cessation Counseling and Screening (12+)] Future Scheduled 2023-03-[address] [facility] 00:00:00 Counseling and Screening Med ical Center (12+) [code = Tobacco Cessation Counseling and Screening (12+)] Future Scheduled 2023-03-[address] [facility] 00:00:00 Counseling and Screening Med ical Center (12+) [code = Tobacco Cessation Counseling and Screening (12+)] Future Scheduled 2023-03-[address] [facility] 00:00:00 Counseling and Screening Med ical Center (12+) [code = Tobacco Cessation Counseling and Screening (12+)] Future Scheduled 2023-03-[address] [facility] 00:00:00 Counseling and Screening Med ical Center (12+) [code = Tobacco Cessation Counseling and Screening (12+)] Future Scheduled 2023-02-28 Influenza Vaccine (#1) [facility] 00:[facility]:00 [code = Influenza Vaccine Me dical Center (#1)] Future Scheduled 2022-06-[address] [facility] 00:00:00 (12+) [code = DEPRESSION Med ical Center SCREENING (12+)] Future Scheduled 2022-06-[address] [facility] 00:00:00 (12+) [code = DEPRESSION Med ical Center SCREENING (12+)] Future Scheduled 2022-06-[address] [facility] 00:00:00 (12+) [code = DEPRESSION Med ical Center SCREENING (12+)] Future Scheduled 2022-06-[address] [facility] 00:00:00 (12+) [code = DEPRESSION Med ical Center SCREENING (12+)] Future Scheduled 2022-06-[address] [facility] 00:00:00 (12+) [code = DEPRESSION Med ical Center SCREENING (12+)] Future Scheduled 2022-02-28 INFLUENZA VACCINE (#1) [facility] 00:00:00 [code = INFLUENZA VACCINE Me dical Center (#1)] Future Scheduled 2022-02-28 INFLUENZA VACCINE (#1) [facility] 00:00:00 [code = INFLUENZA VACCINE Me dical Center (#1)] Future Scheduled 2022-02-28 INFLUENZA VACCINE (#1) [facility] 00:00:00 [code = INFLUENZA VACCINE Me dical Center (#1)] Future Scheduled 2022-02-28 INFLUENZA VACCINE (#1) [facility] 00:00:00 [code = INFLUENZA VACCINE Me dical Center (#1)] Future Scheduled 2022-02-28 INFLUENZA VACCINE (#1) [facility] 00:00:00 [code = INFLUENZA VACCINE Me dical Center (#1)] Future Scheduled 2022-02-28 INFLUENZA VACCINE (#1) [facility] 00:00:00 [code = INFLUENZA VACCINE Me dical Center (#1)] Future Scheduled 2022-01-[address] [facility] (procedure) [facility] [code = 16763018] Future Scheduled 2022-01-[address] [facility] 00:00:00 measurement (procedure) [facility] [code = 58722813] Future Scheduled 2022-01-[address] [facility] 00:00:00 measurement (procedure) [facility] [code = 85558020] Future Scheduled 2022-01-[address] [facility] 00:00:00 measurement (procedure) [facility] [code = 73073581] Future Scheduled 2022-01-[address] [facility] 00:00:00 measurement (procedure) [facility] [code = 08043538] Future Scheduled 2022-01-[address] [facility] 00:00:00 measurement (procedure) [facility] [code = 47624008] Future Scheduled 2022-01-[address] [facility] 00:00:00 measurement (procedure) [facility] [code = 00939803] Future Scheduled 2021-06-[address] [facility] 00:00:00 (12+) [code = DEPRESSION Med ical Center SCREENING (12+)] Future Scheduled 2021-06-[address] [facility] 00:00:00 (12+) [code = DEPRESSION Med ical Center SCREENING (12+)] Future Scheduled 2021-02-16 COVID-19 VACCINE [...] [facility] 00:00:00 [code = 24569811] Medical Ce nter Future Scheduled 2014 Lipid panel (procedure) [facility] 00:00:00 [code = 37005314] Medical Ce nter Future Scheduled 2014 Lipid panel (procedure) [facility] 00:00:00 [code = 56568645] Medical Ce nter Future Scheduled 2014 Lipid panel (procedure) [facility] 00:00:00 [code = 59358104] Medical Ce nter Future Scheduled 2014 Lipid panel (procedure) [facility] 00:00:00 [code = 11925793] Medical Ce nter Future Scheduled 1990 Screening for malignant [facility] 00:00:00 neoplasm of cervix Medical C enter (procedure) [code = 705463394] Future Scheduled 1990 Screening for malignant [facility] 00:00:00 neoplasm of cervix Medical C enter (procedure) [code = 639087234] Future Scheduled 1990 Screening for malignant [facility] 00:00:00 neoplasm of cervix Medical C enter (procedure) [code = 258287987] Future Scheduled 1990 Screening for malignant [facility] 00:00:00 neoplasm of cervix Medical C enter (procedure) [code = 648425403] Future Scheduled 1990 Screening for malignant [facility] 00:00:00 neoplasm of cervix Medical C enter (procedure) [code = 543928640] Future Scheduled 1990 Screening for malignant [facility] 00:00:00 neoplasm of cervix Medical C enter (procedure) [code = 511999841] Future Scheduled 1990 Screening for malignant [facility] 00:00:00 neoplasm of cervix Medical C enter (procedure) [code = 093409225] Future Scheduled 1988-01-07 DTAP/TDAP/TD VACCINES ([address] [facility] 00:00:00 - Tdap) [code = Medical Cent er DTAP/TDAP/TD VACCINES (1 - Tdap)] Future Scheduled 1988-01-07 DTAP/TDAP/TD VACCINES ([address] [facility] 00:00:00 - Tdap) [code = Medical Cent er DTAP/TDAP/TD VACCINES (1 - Tdap)] Future Scheduled 1988-01-07 DTAP/TDAP/TD VACCINES ([address] [facility] 00:00:00 - Tdap) [code = Medical Cent er DTAP/TDAP/TD VACCINES (1 - Tdap)] Future Scheduled 1988-01-07 DTAP/TDAP/TD VACCINES ([address] [facility] 00:00:00 - Tdap) [code = Medical Cent er DTAP/TDAP/TD VACCINES (1 - Tdap)] Future Scheduled 1988-01-07 DTAP/TDAP/TD VACCINES ([address] [facility] 00:00:00 - Tdap) [code = Medical Cent er DTAP/TDAP/TD VACCINES (1 - Tdap)] Future Scheduled 1988-01-07 DTAP/TDAP/TD VACCINES ([address] [facility] 00:00:00 - Tdap) [code = Medical Cent er DTAP/TDAP/TD VACCINES (1 - Tdap)] Future Scheduled 1988-01-07 DTAP/TDAP/TD VACCINES ([address] [facility] 00:00:00 - Tdap) [code = Medical Cent er DTAP/TDAP/TD VACCINES (1 - Tdap)] Future Scheduled 1984-01-[address] Human immunodeficiency [facility] 00:00:00 virus screening Medical Cent er (procedure) [code = 149361143] Future Scheduled 1979 DIABETIC EYE EXAM [code = [facility] 00:00:00 DIABETIC EYE EXAM] Medical C enter Future Scheduled 1979 Diabetic foot examination [facility] 00:00:00 (regime/therapy) [code = [facility] 138170061] Future Scheduled 1979 Urine screening for [facility] 00:00:00 protein (procedure) [code [facility] = 277711821] Future Scheduled 1979 DIABETIC EYE EXAM [code = [facility] 00:00:00 DIABETIC EYE EXAM] Medical C enter Future Scheduled 1979 Diabetic foot examination [facility] 00:00:00 (regime/therapy) [code = [facility] 553285565] Future Scheduled 1979 Urine screening for [facility] 00:00:00 protein (procedure) [code [facility] = 667504810] Future Scheduled 1979 DIABETIC EYE EXAM [code = [facility] 00:00:00 DIABETIC EYE EXAM] Medical C enter Future Scheduled 1979 Diabetic foot examination [facility] 00:00:00 (regime/therapy) [code = [facility] 131344251] Future Scheduled 1979 Urine screening for [facility] 00:00:00 protein (procedure) [code [facility] = 440849294] Future Scheduled 1979 DIABETIC EYE EXAM [code = [facility] 00:00:00 DIABETIC EYE EXAM] Medical C enter Future Scheduled 1979 Diabetic foot examination [facility] 00:00:00 (regime/therapy) [code = [facility] 628450374] Future Scheduled 1979 Urine screening for [facility] 00:00:00 protein (procedure) [code [facility] = 739086605] Future Scheduled 1979 DIABETIC EYE EXAM [code = [facility] 00:00:00 DIABETIC EYE EXAM] Medical C enter Future Scheduled 1979 Diabetic foot examination [facility] 00:00:00 (regime/therapy) [code = [facility] 251917858] Future Scheduled 1979 Urine screening for [facility] 00:00:00 protein (procedure) [code [facility] = 474486168] Future Scheduled 1979 DIABETIC EYE EXAM [code = [facility] 00:00:00 DIABETIC EYE EXAM] Medical C enter Future Scheduled 1979 Diabetic foot examination [facility] 00:00:00 (regime/therapy) [code = [facility] 094478336] Future Scheduled 1979 DIABETIC EYE EXAM [code = [facility] 00:00:00 DIABETIC EYE EXAM] Medical C enter Future Scheduled 1975 PNEUMOCOCCAL VACCINE 0-[address] [facility] 00:00:00 YRS (1 - PCV) [code = Medica l Center PNEUMOCOCCAL VACCINE 0-64 YRS (1 - PCV)] Future Scheduled 1975 PNEUMOCOCCAL VACCINE 0-[address] [facility] 00:00:00 YRS (1 - PCV) [code = Medica l Center PNEUMOCOCCAL VACCINE 0-64 YRS (1 - PCV)] Future Scheduled 1975 PNEUMOCOCCAL VACCINE 0-[address] [facility] 00:00:00 YRS (1 - PCV) [code = Medica l Center PNEUMOCOCCAL VACCINE 0-64 YRS (1 - PCV)] Future Scheduled 1975 PNEUMOCOCCAL VACCINE 0-[address] [facility] 00:00:00 YRS (1 - PCV) [code = Medica l Center PNEUMOCOCCAL VACCINE 0-64 YRS (1 - PCV)] Future Scheduled 1975 PNEUMOCOCCAL VACCINE 0-[address] [facility] 00:00:00 YRS (1 - PCV) [code = Medica l Center PNEUMOCOCCAL VACCINE 0-64 YRS (1 - PCV)] Future Scheduled 1975 PNEUMOCOCCAL VACCINE 0-[address] [facility] 00:00:00 YRS (1 - PCV) [code = Medica l Center PNEUMOCOCCAL VACCINE 0-64 YRS (1 - PCV)] Future Scheduled 1975 Pneumococcal Vaccine: [facility] 00:[facility]:00 0-64 Years (1 - PCV) Medical Center [code = Pneumococcal Vaccine: 0-64 Years (1 - PCV)] Future Scheduled 1969 CT Colonography (combo) [facility] 00:00:00 [code = CT Colonography [facility] (combo)] Future Scheduled 1969 Screening for malignant [facility] 00:00:00 neoplasm of colon Medical Ce nter (procedure) [code = 701557551] Future Scheduled 1969 Screening for malignant [facility] 00:00:00 neoplasm of colon Medical Ce nter (procedure) [code = 602717977] Future Scheduled 1969 Sigmoidoscopy [code = [facility] Sigmoidoscopy] Medical Cente r Future Scheduled 1969 CT Colonography (combo) [facility] 00:00:00 [code = CT Colonography [facility] (combo)] Future Scheduled 1969 Screening for malignant [facility] 00:00:00 neoplasm of colon Medical Ce nter (procedure) [code = 910111269] Future Scheduled 1969 Screening for malignant [facility] 00:00:00 neoplasm of colon Medical Ce nter (procedure) [code = 202122272] Future Scheduled 1969 Sigmoidoscopy [code = [facility] Sigmoidoscopy] Medical Cente r Future Scheduled 1969 CT Colonography (combo) [facility] 00:00:00 [code = CT Colonography [facility] (combo)] Future Scheduled 1969 Screening for malignant [facility] 00:00:00 neoplasm of colon Medical Ce nter (procedure) [code = 211517488] Future Scheduled 1969 Screening for malignant [facility] 00:00:00 neoplasm of colon Medical Ce nter (procedure) [code = 687097704] Future Scheduled 1969 Sigmoidoscopy [code = [facility] Sigmoidoscopy] Medical Dwaynee r Future Scheduled 1969 CT Colonography (combo) [facility] 00:00:00 [code = CT Colonography [facility] (combo)] Future Scheduled 1969 Screening for malignant [facility] 00:00:00 neoplasm of colon Medical Ce nter (procedure) [code = 566554819] Future Scheduled 1969 Screening for malignant [facility] 00:00:00 neoplasm of colon Medical Ce nter (procedure) [code = 116000312] Future Scheduled 1969 Sigmoidoscopy [code = [facility] Sigmoidoscopy] Medical Dwaynee r Future Scheduled 1969 CT Colonography (combo) [facility] 00:00:00 [code = CT Colonography [facility] (combo)] Future Scheduled 1969 Screening for malignant [facility] 00:00:00 neoplasm of colon Medical Ce nter (procedure) [code = 645462226] Future Scheduled 1969 Screening for malignant [facility] 00:00:00 neoplasm of colon Medical Ce nter (procedure) [code = 538756211] Future Scheduled 1969 Sigmoidoscopy [code = [facility] 00:[facility]:00 Sigmoidoscopy] Medical Dwaynee r Future Scheduled 1969 CT Colonography (combo) [facility] 00:00:00 [code = CT Colonography [facility] (combo)] Future Scheduled 1969 Screening for malignant [facility] 00:00:00 neoplasm of colon Medical Ce nter (procedure) [code = 346971917] Future Scheduled 1969 Screening for malignant [facility] 00:00:00 neoplasm of colon Medical Ce nter (procedure) [code = 741038580] Future Scheduled 1969 Sigmoidoscopy [code = [facility] 00:[facility]:00 Sigmoidoscopy] Medical Dwaynee r Future Scheduled 1969 Screening for malignant [facility] 00:00:00 neoplasm of breast Medical C enter (procedure) [code = 417385468] Future Scheduled 1969 CT Colonography (combo) [facility] 00:00:00 [code = CT Colonography [facility] (combo)] Future Scheduled 1969 Screening for malignant [facility] 00:00:00 neoplasm of colon Medical Ce nter (procedure) [code = 892907581] Future Scheduled 1969 Screening for malignant [facility] 00:00:00 neoplasm of colon Medical Ce nter (procedure) [code = 222539175] Future Scheduled 1969 Sigmoidoscopy [code = [facility] Sigmoidoscopy] Medical Cente r Encounters Start End Encounter Admission Attending Care Care Encounter Source Date/Time Date/Time Type Type Clinicians Facility Department ID 2023-04-02 [facility] [id number] Common 10:19:00 Delma [id number] [facility] 2023-04-01 [facility] [id number] Common 16:44:00 Delma [id number] [facility] 2023-01-31 Outpatient [facility] [id number] [place] 02:28:12 [id number] [facility] 2023-01-30 Outpatient [facility] [id number] [place] 17:36:13 [id number] [facility] 2023-01-28 Outpatient [facility] [id number] [place] 10:31:43 [id number] [facility] 2023-01-23 Outpatient [facility] [id number] [place] 14:35:24 [id number] [facility] 2023-01-13 Outpatient [facility] [id number] [place] 15:33:19 [id number] [facility] 2023-01-09 Outpatient [facility] [id number] [place] 10:24:42 [id number] [facility] 2022-12-12 Outpatient [facility] [id number] [place] 07:22:15 [id number] [facility] 2022-12-05 Outpatient [facility] [id number] [place] 08:01:10 [id number] [facility] 2022-12-03 Outpatient [facility] [id number] [place] 15:04:24 [id number] [facility] 2022-11-13 Outpatient [facility] [id number] [place] 14:39:59 [id number] [facility] 2022-10-15 Outpatient [facility] [id number] [place] 12:31:34 [id number] [facility] 2022-10-06 Outpatient [facility] [id number] [place] 14:43:35 [id number] [facility] 2022-10-04 Outpatient [facility] [id number] [place] 14:33:51 [id number] [facility] 2022-09-29 Outpatient [facility] [id number] [place] 11:15:50 [id number] [facility] 2022-09-25 Outpatient Ornelas, STLMLC STLMLC [id number] Common 13:57:01 Avnee [id number] [facility] 2022-09-23 Outpatient Deb, STLMLC STLMLC [id number] Common 07:39:00 Urvashi [id number] [facility] 2022-09-13 Outpatient Deb, STLMLC STLMLC [id number] Common 09:56:01 Urvashi [id number] [facility] 2022-09-12 Outpatient [facility] [id number] [place] 13:14:48 [id number] [facility] 2022-08-22 Outpatient [facility] [id number] [place] 08:15:21 [id number] [facility] 2022-08-20 Outpatient [facility] [id number] [place] 13:06:39 [id number] [facility] 2022-08-16 Outpatient [facility] [id number] [place] 15:23:17 [id number] [facility] 2022-08-05 Outpatient Deb, STLMLC STLMLC [id number] Common 11:50:00 Urvashi [id number] [facility] 2022-07-12 Outpatient [facility] [id number] [place] 11:38:19 [id number] [facility] 2022-07-11 Outpatient [facility] [id number] [place] 10:08:58 [id number] [facility] 2022-07-09 Outpatient [facility] [id number] [place] 16:26:28 [id number] [facility] 2022-06-11 Outpatient Haney, Na STLMLC STLMLC [id number] Common 09:04:01 [facility] 2022-05-06 Outpatient Haney, Na STLMLC STLMLC [id number] Common 14:47:00 [facility] 2022-05-01 Outpatient Haney, Na STLMLC STLMLC [id number] 2 Common 10:38:00 [facility] 2022-04-24 Outpatient Haney, Na STLMLC STLMLC [id number] 2 Common 13:41:01 [facility] 2022-04-18 Outpatient Haney, Na STLMLC STLMLC [id number] 2 Common 14:22:00 [facility] 2022-04-03 Outpatient Haney, Na STLMLC STLMLC [id number] 2 Common 16:47:01 [facility] 2022-03-20 Outpatient Haney, Na STLMLC STLMLC [id number] 2 Common 11:50:01 [facility] 2022-02-22 Outpatient Haney, Na STLMLC STLMLC [id number] 2 Common 09:27:00 [facility] 2022-01-31 Outpatient Haney, Na STLMLC STLMLC [id number] 2 Common 13:37:01 [facility] 2022-01-15 Outpatient Haney, Na STLMLC STLMLC [id number] 2 Common 13:51:00 [facility] 2021-11-19 Outpatient Haney, Na STLMLC STLMLC [id number] 2 Common 11:21:07 [facility] 2021-11-02 Outpatient Haney, Na STLMLC STLMLC [id number] 2 Common 09:23:01 [facility] 2021-10-08 Outpatient Haney, Na STLMLC STLMLC [id number] 2 Common 11:37:01 [facility] 2021-09-24 Outpatient Haney, Na STLMLC STLMLC [id number] 2 Common 11:59:00 [facility] 2021-09-06 Outpatient Haney, Na STLMLC STLMLC [id number] 2 Common 08:34:01 [facility] 2021-08-21 Outpatient Haney, Na STLMLC STLMLC [id number] 2 Common 11:41:00 [facility] 2021-07-25 Outpatient Haney, Na STLMLC STLMLC [id number] 2 Common 14:33:29 [facility] 2021-07-25 Outpatient Haney, Na STLMLC STLMLC [id number] 2 Common 14:24:24 [facility] 2021-07-25 Outpatient Haney, Na STLMLC STLMLC [id number] 2 Common 13:57:58 [id number] [facility] 2021-07-25 Outpatient Haney, Na STLMLC STLMLC [id number] 2 Common 13:56:51 [id number] [facility] 2021-07-25 Outpatient Haney, Na STLMLC STLMLC [id number] 2 Common 13:47:46 [id number] [facility] 2021-07-25 Outpatient Haney, Na STLMLC STLMLC [id number] 2 Common 12:48:36 [id number] [facility] 2021-07-25 Outpatient Haney, Na STLMLC STLMLC [id number] 2 Common 12:33:46 [id number] [facility] 2021-07-25 Outpatient Haney, Na STLMLC STLMLC [id number] 2 Common 12:31:18 [id number] [facility] 2021-07-25 Outpatient Haney, Na STLMLC STLMLC [id number] 2 Common 12:26:58 [id number] [facility] 2021-07-25 Outpatient Haney, Na STLMLC STLMLC [id number] 2 Common 12:09:32 [id number] [facility] 2021-07-25 Outpatient Haney, Na STLMLC STLMLC [id number] 2 Common 12:02:06 [id number] [facility] 2021-07-25 Outpatient Haney, Na STLMLC STLMLC [id number] 2 Common 12:01:44 [id number] [facility] 2021-07-25 Outpatient Haney, Na STLMLC STLMLC [id number] 2 Common 11:58:40 [id number] [facility] 2021-07-25 Outpatient Haney, Na STLMLC STLMLC [id number] 2 Common 11:57:47 [id number] [facility] 2021-07-25 Outpatient Haney, Na STLMLC STLMLC [id number] 2 Common 11:57:12 [id number] [facility] 2021-07-25 Outpatient Haney, Na STLMLC STLMLC [id number] 2 Common 11:56:42 [id number] [facility] 2021-07-25 Outpatient Haney, Na STLMLC STLMLC [id number] 2 Common 11:55:04 [id number] [facility] 2021-07-25 Outpatient Haney, Na STLMLC STLMLC [id number] 2 Common 11:32:26 [id number] [facility] 2021-07-25 Outpatient Haney, Na STLMLC STLMLC [id number] 2 Common 11:32:11 [id number] [facility] 2021-07-25 Outpatient Haney, Na STLMLC STLMLC [id number] 2 Common 11:30:56 [id number] [facility] 2021-07-25 Outpatient Haney, Na STLMLC STLMLC [id number] 2 Common 11:24:01 [id number] [facility] 2021-07-25 Outpatient Haney, Na STLMLC STLMLC [id number] 2 Common 11:16:56 [id number] [facility] 2021-07-25 Outpatient Haney, Na STLMLC STLMLC [id number] 2 Common 11:10:23 [id number] [facility] 2021-07-25 Outpatient Haney, Na STLMLC [facility] [id number] 2 Common 11:09:28 [id number] [facility] 2021-07-25 Outpatient Haney, Na STLMLC [facility] [id number] 2 Common 10:58:23 [id number] [facility] 2021-07-25 Outpatient Haney, Na STLMLC [facility] [id number] 2 Common 10:57:38 [id number] [facility] 2023-04-08 2023-04-08 Outpatient GARRET, [facility] [id number] [place] 14:30:00 14:30:00 [facility] 2023-03-06 2023-03-06 Outpatient EDUARD, [facility] [id number] [place] 10:30:00 10:30:00 [facility] 2023-01-30 2023-01-30 Outpatient KUMARI, [facility] [id number] [place] 10:40:00 10:40:00 [facility] 2023-01-30 2023-01-30 Outpatient [facility] [id number] [place] 10:00:00 10:00:00 [facility] 2023-01-14 2023-01-14 Office KUMARI, [facility] [id number] [place] 11:40:00 12:40:48 Visit [facility] [id number] Joey alth [address] [id number] [id number] 2022-12-12 2022-12-12 Outpatient [facility] [id number] [place] 07:40:00 10:00:18 [facility] 2022-12-12 2022-12-12 Procedure Kumari, [facility] [id number] [place] 08:40:00 10:00:05 Visit Ade R SE MED [id number] [address] [id number] [id number] 6 2022-12-04 2022-12-04 Outpatient [facility] [id number] [place] 10:00:00 13:27:14 Health 2022-12-04 2022-12-04 Office EDIE Chapa [facility] [id number] [place] 10:00:00 11:07:38 Visit Danial DAWSON [id number] H [facility] 9.2.7.2.686 [address] [id number] 5 2022-12-03 2022-12-03 Office KMUARI [facility] [id number] [place] 13:00:00 14:23:01 Visit [facility] [id number] [address] [id number] [id number] 6 2022-11-29 2022-11-29 Outpatient CHAPA [facility] [id number] [place] 14:30:00 14:30:00 [facility] 2022-11-29 2022-11-29 Outpatient [facility] [id number] [place] 14:30:00 14:30:00 [facility] 2022-11-26 2022-11-26 Office EDIE VITALE [id number] [place] 15:00:00 15:00:00 Visit VERNELL BRUNER [id number] [place] 9.2.7.2.686 MULTI [id number] SPECIALTY 5 2022-11-19 2022-11-19 [facility] [id number] 08:00:00 08:00:[address] [facility] 2022-10-29 2022-10-29 [facility] [id number] [place] 10:40:00 10:40:00 [facility] 2022-09-04 2022-09-04 Outpatient LAURA Antonio, [facility] [id number] [facility] 12:00:00 12:00:[address] [facility] 2022-08-30 2022-08-30 [facility] [id number] 07:00:00 07:00:[address] [facility] 2022-08-20 2022-08-20 Office EDIE Vitale 1.2.840.114 [id number] [place] 13:00:00 15:56:24 Visit Vernell BRUNER [id number] [facility] 9.2.7.2.686 MULTI [id number] SPECIALTY 5 2022-08-08 2022-08-08 (TEL) STLMLC STLMLC [id number] Co mmon 00:00:00 00:00:00 [facility] 2022-08-06 2022-08-06 OFFICE STLMLC STLMLC [id number] Co mmon 00:00:00 00:00:00 VISIT [facility] PT - CHI LEVEL 3 [facility] 2022-08-05 2022-08-05 (TEL) STLMLC STLMLC [id number] Co mmon 00:00:00 00:00:00 [facility] 2022-08-01 2022-08-01 Office Moreira, [facility] [id number] 10:45:00 11:15:[address] [facility] 2022-07-19 2022-07-19 (TEL) STLMLC STLMLC [id number] Co mmon 00:00:00 00:00:00 [facility] 2022-07-18 2022-07-18 (TEL) STLMLC STLMLC [id number] Co mmon 00:00:00 00:00:00 [facility] 2022-06-26 2022-06-26 (TEL) STLMLC STLMLC [id number] Co mmon 00:00:00 00:00:00 [facility] 2022-05-28 2022-05-28 [id number] [facility] 00:[facility] 00:00:00 Encounter , Mary Rojas [facility] 2022-05-25 2022-05-25 (TEL) STLMLC STLMLC [id number] Co mmon 00:00:00 00:00:00 [facility] 2022-05-09 2022-05-09 OFFICE STLMLC STLMLC [id number] Co mmon 00:00:00 00:00:00 VISIT EST Spir it PT LEVEL 3 - CHI [facility] 2022-05-07 2022-05-07 (TEL) STLMLC STLMLC [id number] Co mmon 00:00:00 00:00:00 [facility] 2022-05-06 2022-05-06 OFFICE STLMLC STLMLC [id number] Co mmon 00:00:00 00:00:00 VISIT [facility] PT - CHI LEVEL 4 [facility] 2022-03-20 2022-03-20 (TEL) STLMLC STLMLC [id number] Co mmon 00:00:00 00:00:00 [facility] 2022-03-20 2022-03-20 (TEL) STLMLC STLMLC [id number] Co mmon 00:00:00 00:00:00 [facility] 2022-03-19 2022-03-19 (TEL) STLMLC STLMLC [id number] Co mmon 00:00:00 00:00:00 [facility] 2022-03-08 2022-03-08 Hospital [facility], [facility] [id number] 08:37:00 10:47:00 Encounter [facility] 2022-03-08 2022-03-08 [facility] [id number] 09:30:00 10:30:00 [facility] 2022-03-08 2022-03-08 Anesthesia Clinton [facility] [id number] 09:18:00 09:51:00 Event [facility] 2022-03-06 2022-03-06 (TEL) STLMLC STLMLC [id number] Co mmon 00:00:00 00:00:00 [facility] 2022-02-26 2022-02-26 OFFICE STLMLC STLMLC [id number] Co mmon 00:00:00 00:00:00 VISIT [facility] PT - CHI LEVEL 4 [facility] 2022-02-14 2022-02-14 [facility] [id number] 08:58:32 23:59:00 Encounter [facility] 2022-02-11 2022-02-11 [facility] [id number] 11:48:54 23:59:00 Encounter [facility] 2022-02-11 2022-02-11 Travel [facility] [id number] [facility] 00:00:00 00:00:00 [facility] 2022-01-29 2022-01-29 (TEL) STLC STLC [id number] Co mmon 00:00:00 00:00:00 [facility] 2022-01-28 2022-01-28 OL DIG E/M STLC [facility] [id number] Common 00:00:00 00:00:00 SVC 21+ [facility] 2022-01-25 2022-01-25 (TEL) STLC STLC [id number] Co mmon 00:00:00 00:00:00 [facility] 2022-01-10 2022-01-10 Office EL [facility], [facility] [id number] 12:30:00 13:00:00 Visit [facility] 2022-01-03 2022-01-03 [facility], [facility] [id number] 07:54:07 23:59:[address] [facility] 2022-01-03 2022-01-03 (TEL) STLC STLC [id number] Co mmon 00:00:00 00:00:00 [facility] 2021-12-19 2021-12-19 (TEL) STLC STLC [id number] Co mmon 00:00:00 00:00:00 [facility] 2021-12-17 2021-12-17 Office EL Aracely, [facility] [id number] 14:00:00 15:00:00 Visit [facility] 2021-12-10 2021-12-10 (TEL) STLMLC STLMLC [id number] Co mmon 00:00:00 00:00:00 [facility] 2021-12-06 2021-12-06 OFFICE STLMLC STLMLC [id number] Co mmon 00:00:00 00:00:00 VISIT [facility] PT - CHI LEVEL 4 [facility] 2021-11-21 2021-11-21 (TEL) STLMLC STLMLC [id number] Co mmon 00:00:00 00:00:00 [facility] 2021-11-19 2021-11-19 (TEL) STLMLC STLMLC [id number] Co mmon 00:00:00 00:00:00 [facility] 2021-11-19 2021-11-19 (TEL) STLMLC STLMLC [id number] Co mmon 00:00:00 00:00:00 [facility] 2021-11-19 2021-11-19 OFFICE STLMLC STLMLC [id number] Co mmon 00:00:00 00:00:00 VISIT EST Spir it PT LEVEL 3 [facility] 2021-10-24 2021-10-24 Outpatient DARIA AGUILAR [id number] [place] 04:35:00 04[place] [id number] da [facility] 2021-10-17 2021-10-17 (TEL) STLMLC STLMLC [id number] Co mmon 00:00:00 00:00:00 [facility] 2021-10-09 2021-10-09 OFFICE STLMLC STLMLC [id number] Co mmon 00:00:00 00:00:00 VISIT [facility] ESTAB PT - CHI LEVEL 4 [facility] 2021-10-01 2021-10-01 (TEL) STLMLC STLMLC [id number] Co mmon 00:00:00 00:00:00 [facility] 2021-09-27 2021-09-27 Outpatient ROS, MHSE MHSE [id number] 07:32:00 23:59:[address] [facility] 2021-09-10 2021-09-10 OFFICE STLMLC STLMLC [id number] Co mmon 00:00:00 00:00:00 VISIT EST Spir it PT LEVEL 3 - [facility] 2021-09-04 2021-09-04 (TEL) STLMLC STLMLC [id number] Co mmon 00:00:00 00:00:00 [facility] 2021-08-21 2021-08-21 (TEL) STLMLC STLMLC [id number] Co mmon 00:00:00 00:00:00 [facility] 2021-08-21 2021-08-21 OFFICE STLMLC STLMLC [id number] Co mmon 00:00:00 00:00:00 VISIT EST Spir it PT LEVEL 3 - CHI [facility] 2021-08-20 2021-08-20 (TEL) STLMLC STLMLC [id number] Co mmon 00:00:00 00:00:00 [facility] 2021-05-21 2021-05-21 (TEL) STLMLC STLMLC [id number] Co mmon 00:00:00 00:00:00 [facility] 2021-05-21 2021-05-21 OL DIG E/M STLMLC STLMLC [id number] Common 00:00:00 00:00:00 [facility] 11-20 Spir it MIN [facility] 2021-05-16 2021-05-17 Outpatient [facility] [id number] Memoria 18:45:00 05:59:00 r [place] 01 l [facility] 2021-05-16 2021-05-16 Outpatient GOGIA, MHSE MHSE [id number] MH 12:45:00 23:59:[address] [facility] 2021-04-05 2021-04-05 OFFICE STLMLC STLMLC [id number] Co mmon 00:00:00 00:00:00 VISIT [facility] PT - CHI LEVEL 4 [facility] 2021-03-08 2021-03-08 Outpatient STLMLC STLMLC [id number] Common 00:00:00 00:00:00 [facility] 2021-01-29 2021-01-29 Outpatient STLMLC STLMLC [id number] Common 00:00:00 00:00:00 [facility] 2021-01-17 2021-01-17 Outpatient STLMLC STLMLC [id number] Common 00:00:00 00:00:00 [facility] 2021-01-03 2021-01-03 Outpatient STLMLC STLMLC [id number] Common 00:00:00 00:00:00 [facility] 2021-01-02 2021-01-02 Outpatient STLMLC STLMLC [id number] Common 00:00:00 00:00:00 [facility] 2020-12-04 2020-12-04 Outpatient STLMLC STLMLC [id number] Common 00:00:00 00:00:00 [facility] 2020-11-16 2020-11-16 Outpatient STLMLC STLMLC [id number] Common 00:00:00 00:00:00 [facility] 2020-11-06 2020-11-06 Outpatient STLMLC STLMLC [id number] Common 00:00:00 00:00:00 [facility] 2020-10-03 2020-10-03 Outpatient STLMLC STLMLC [id number] Common 00:00:00 00:00:00 [facility] 2020-09-28 2020-09-28 Outpatient STLMLC STLMLC [id number] Common 00:00:00 00:00:00 [facility] 2020-08-24 2020-08-24 Outpatient STLMLC STLMLC [id number] Common 00:00:00 00:00:00 [facility] 2020-08-17 2020-08-17 Outpatient STLMLC STLMLC [id number] Common 00:00:00 00:00:00 [facility] 2020-08-11 2020-08-11 Outpatient STLMLC STLMLC [id number] Common 00:00:00 00:00:00 [facility] 2020-08-03 2020-08-03 Outpatient STLMLC STLMLC [id number] Common 00:00:00 00:00:00 [facility] 2020-07-31 2020-07-31 Outpatient STLMLC STLMLC [id number] Common 00:00:00 00:00:00 [facility] 2020-06-26 2020-06-26 Outpatient STLMLC STLMLC [id number] Common 00:00:00 00:00:00 [facility] 2020-06-20 2020-06-20 Outpatient FERGUSON_JO MEHOP MEHOP [id number] [place] 10:21:00 [place] [id number] [facility] 2020-06-15 2020-06-15 Outpatient STLMLC STLMLC [id number] Common 00:00:00 00:00:00 [facility] 2020-06-14 2020-06-14 Outpatient STLMLC STLMLC [id number] Common 00:00:00 00:00:00 [facility] 2020-06-12 2020-06-12 Outpatient STLMLC STLMLC [id number] Common 00:00:00 00:00:00 [facility] 2020-06-07 2020-06-07 Outpatient FERGUSON_JO MEHOP MEHOP [id number] [place] 03:50:00 03:50[place]00 [place] [id number] [facility] 2020-06-01 2020-06-01 Outpatient STLMLC STLMLC [id number] Common 00:00:00 00:00:00 [facility] 2020-05-29 2020-05-29 Outpatient STLMLC STLMLC [id number] Common 00:00:00 00:00:00 [facility] 2020-05-08 2020-05-08 Outpatient STLMLC STLMLC [id number] Common 00:00:00 00:00:00 [facility] 2020-05-04 2020-05-04 Outpatient STLMLC STLMLC [id number] Common 00:00:00 00:00:00 [facility] 2020-04-24 2020-04-24 Outpatient STLMLC STLMLC [id number] Common 00:00:00 00:00:00 [facility] 2020-04-20 2020-04-20 Outpatient STLMLC STLMLC [id number] Common 00:00:00 00:00:00 [facility] 2020-04-19 2020-04-19 Outpatient STLMLC STLMLC [id number] Common 00:00:00 00:00:00 [facility] 2020-04-18 2020-04-18 Outpatient STLMLC STLMLC [id number] Common 00:00:00 00:00:00 [facility] 2020-04-17 2020-04-17 Outpatient STLMLC STLMLC [id number] Common 00:00:00 00:00:00 [facility] 2020-04-11 2020-04-12 Outpatient [facility] [id number] Memoria 14:07:00 04:59:00 [facility] 00 l [facility] 2020-04-11 2020-04-11 Outpatient GOGIA, MHBL MHBL [id number] MHBL 09:07:00 23:59:00 [facility] 2020-01-26 2020-01-26 [facility] [id number] Common 14:36:00 14:36:[address] [place] [address] [facility] 2020-01-24 2020-01-24 [facility] [id number] Common 13:45:00 13:45:00 [place] [address] [place] [address] [facility] 2020-01-19 2020-01-19 [facility] [id number] Common 08:40:00 08:40:00 [place] [address] [place] [address] [facility] 2020-01-18 2020-01-18 [facility] [id number] Common 15:20:00 15:20:00 [facility] [address] [place] [address] [facility] 2020 2020 [facility] [id number] Common 14:44:00 14:44:00 [facility] [address] [facility] 2020 2020 [facility] [id number] Common 09:39:00 09:39:[facility] [address] [address] [facility] 2019-12-24 2019-12-24 [facility] [id number] Common 17:41:00 17:41:00 [place] [address] [place] [address] [facility] 2019-12-21 2019-12-21 [facility] [id number] Common 09:20:00 09:20:00 [place] [address] [facility] 2019-10-27 2019-10-27 [facility] [id number] Common 14:08:00 14:08:00 [facility] [place] [address] [place] [address] [facility] 2019-10-13 2019-10-13 [facility] [id number] Common 11:40:00 11:40:00 [facility] [place] [address] [address] [facility] 2019-10-04 2019-10-04 [facility] [id number] Common 08:00:00 08:00:00 [place] [address] [place] [address] [facility] 2019-08-26 2019-08-26 [facility] [id number] Common 09:30:00 09:30:00 [facility] [place] [address] [facility] 2019-08-25 2019-08-25 [facility] [id number] Common 11:51:00 11:51:00 [facility] [place] [address] [facility] 2019-08-24 2019-08-24 [facility] [id number] Common 14:40:00 14:40:00 [facility] [place] [address] [place] [address] [facility] 2019-08-17 2019-08-17 [facility] [id number] Common 11:59:00 11:59:00 [place] [address] [place] [address] [facility] 2019-07-05 2019-07-05 [facility] [id number] Common 16:00:00 16:00:00 [place] [facility] [place] [address] [place] [address] [facility] 2019-06-22 2019-06-22 [facility] [id number] Common 11:53:00 11:53:00 [facility] [place] [address] [place] [address] [facility] 2019-06-22 2019-06-22 [facility] [id number] Common 10:22:00 10:22:00 [facility] [place] [address] [place] [address] [facility] 2019-05-24 2019-05-24 [facility] [id number] Common 10:00:00 10:00:00 [facility] [place] [address] [place] [address] [facility] 2019-05-05 2019-05-05 [facility] [id number] Common 15:44:00 15:44:00 [place] [facility] [place] [address] [place] [address] [facility] 2019-05-04 2019-05-04 [facility] [id number] Common 15:20:00 15:20:00 [facility] [place] [address] [place] [address] [facility] 2019-04-27 2019-04-27 [facility] [id number] Common 17:18:00 17:18:00 [facility] [place] [address] [place] [address] [facility] 2019-04-26 2019-04-26 [facility] [id number] Common 17:24:00 17:24:00 [facility] [place] [address] [place] [address] [facility] 2019-04-20 2019-04-20 Out[facility] [id number] Common 08:27:00 08:27:00 [facility] [place] [address] [place] [address] [facility] 2019-04-12 2019-04-12 Out[facility] [id number] Common 11:00:00 11:00:00 [facility] [place] [address] [address] [facility] 2019-03-30 2019-03-30 Out[facility] [id number] Common 14:00:00 14:00:[address] [facility] Results Test Description Test Time Test Comments Results Result Comments Source ALPHA FETOPROTEIN (AFP), TUMOR MARKER 2022-08-01 14:04:30 Test Item Value Reference Range Interpretation Comme nts ALPHA-FETOPROTEIN (BEAKER) (test code = 1094) < ng/mL <10.0 Leacher ID - TRUNG BCBC W/PLT COUNT & AUTO [id number] 13:43:39 Test Item Value Reference Range Interpretation [...] (BEAKER) (test code = 2801) BASIC METABOLIC [id number] 13:42:01 Test Item Value Reference Range Interpretation [...] G3b Moderately to s everely 30-44 G4 Severl y decreased 15-29 G5 Kidney failure <15Reported eGF R is based on the CKD-EPI 2021 equation that d oes not use a race coefficientEsti mated GFR is not as accur ate as Creatinine Taylor daily in predicting glom erular filtration rate . Estimated GFR is not appl icable for dialysis patien ts Leacher ID - TRUNG BHEPATIC FUNCTION [id number] 13:42:01 Test Item Value Reference Range Interpretation [...] (test code = 31 U/L 6-55 347) Leacher ID - TRUNG BPROTHROMBIN TIME/[id number] 13:24:39 Test Item Value Reference Range Interpretation Comments PROTIME (BEAKER) (test code = 13.6 seconds 11.9-14.2 759) INR (BEAKER) (test code = 370) 1.11 <=5.90 RECOMMENDED COUMADIN/WARFARIN INR THERAPY RANGESSTANDARD DOSE: 2.0 - 3.0 Includes: PROPHYLAXIS for venous thrombosis, systemic embolization; TREATMENT for venous thrombosis and/or pulmonary embolus.HIGH RISK: Target INR is 2.5-3.5 for patients with mechanical heart valves.Urine Culture, [id number] 00:00:00 Test Item Value Reference Range Interpretation Comments Urine Culture, Routine (test Final report A code = 630-4) Tissue [id number] 18:40:02 Test Item Value Reference Range Interpretation Comments Case Report (test code Surgical Pathology = 104) Report Case: [id number] Authorizing Provider: Trina Perez MD Collected: 03/08/2022 09:24 AM Ordering Location: [facility] Received: 03/08/2022 02:08 PM SERVICES Pathologist: Pinky Kumar MD Specimens: A) - Biopsy, Gastric, Bx B) - Polyp, Colon - Transverse, cold snare DIAGNOSIS (test code = [id number]) FuZzEwMzNcZnRuYmpcdWMx IHtccnRmMVxlcGljOTYwMl zxmgLoINZfeBOjQ9Lderka UIdhAS8rQM1kxCwjgGYizV LcTFEaKdMap4bfy403xXWt d6eyXCNDifzxkNk9rYgnX8 2cb2W7EpqtX78xoWGfFSQ4 JCGgBPFhoTTjBUDyMGF3DZ IcbCEqK2oyHFBjZN0rxwzq EYvjQFkcJCUupNI1FXZbeG NqE0XtTFEpTQyjEWKrqzt8 EqInLf2lnAGxiUhmBRpzAW OwDGTwINgnAXSqBoQvBP9f P5XMTEKYPSOVON1CE3utoD HrFL7oCCSFUBITPsyGURpZ MHTPKNITBUjOC7LNHKMMPp ylATnWHLvqIRFuPINkKT9V IElOVEVTVElOQUwgTUVUQV GYISIYORhkJZfNYTiVU2rH LW7XGCRGKlXGVj2KHCZJFI VOVElGSUVEXHBhciAtICAg Ru0jSZRVZZRQWxBDCAPNUD VILV3MYAZZZTeKXB4TB4PK SVNNUyBJREVOVElGSUVEIE 6PWEMLSQAEErYnO6AEPK2j vOPzAOMlapBOLvTXH4dLGg tyNHXKHgLUYSWYSEBOB5yE KsBDW6gGEXtfOV2RXZGNT0 EYGJduiPPiMR2tVCOWO2mV YB0KYYVTAVSBD9KZVBIMNP yOYN1SUBfHMIxoRo6uGYjD M32KP0LQRmOXVQIKV26RMK 9VUyBPUiBIWVBFUlBMQVNU IZBsW2qFDsyWY8lxWKYuJW PzJL10kTVghOwwHXjwvwBo gaX4CZRhGIN0XA7gmcTcIV JgtHXbcLpkmsWjQQlkk0Uu AGcfSDVmNB7thLtoWDIoIX 4qHZFpM3ttlF3kork1XiEk TILyVoE0JFQeebV2Pbi4VK YpWCmsk8sju2ElIWSnWJy6 wChgKqKdALWgn6qvlcLpOf WwZBDgTUOiRZUsgSPlP841 l9xab5scqjAgiEU9GOUcFY H1NUnzbmKnlbS5HPracIAn HhV8MBuzaxEvHZaztxWref BeGwp9FENqU627XZA8aVoe i1hpYTO3YLBvXPJuUcYjJi 0joBYaW230CXKfJUSBIOQl bNr5OWYwgzUvpjMszVHDv0 25J454x0uzINLvilNyoKgV foxfs7vdW058YAVbtFEnsb DbEiCjDGJpmFSljBI9MWOm LV9kongtWOpcIJslKEWdbc L6CUYuoDXsN8YpGJHvWP8r imtpWOL5DYbcNJOtJIF6Ma AhPRUpu1Gffwh1CiWrme4h ak46FNW0i6SytBhkXAR2WF M0GkWfBe4taKGwERTbHW5w DuOrcLBsSIRcpt81sWewOA zkFBQ9TYIylqMfs5Hky0rv PdYgpzYaQ0bhL7AfYXOpMB IvRNLwYsIblfMlr6Hiw7Xe bLTpdLa9f2bzSDKoMATagG hrr7hkCPB1UMMihANlS6xe iI1gRISoMT0qvqsaq3mwSJ jwZKxqPJTrwSN7anU9PDSx bHAlX1VcmJ3lUOCzKPjpIQ Qjmfe2FyCpJy8jpNTpnPqs MFxzYmtwYWdlXHBnbmNvbn RccGduZGVjXHBsYWluXHBs YWluXGYwXGZzMjRccWxcbG FuZzEwMzNcaGljaFxmMVxk WmZxESRoRWhmM9lbFdDmIt DsGab0TYVnaDWtCMNmUrl1 GGFgdTUdLQAYrBzwrP6vKR AksUoraM5mgVE6HKDbivCr qRVJgM7eHXFBfY9sDkZ2Cr TwAjW1LPh6KzYmkNFraQ3= CPT Code(s) (test code m9ylzAKhJCZwzVK8VmHsSP = 3357) Rxs7bkt9ExpJDxbLUdVGsj rYPxnyNkxv86zJN6dK65XL 2sPXAxXzL8FCUonrK7Wji1 EFTuPWLwqOVlX022c9txn0 vbarLhxGV2pBwtPYJnoybe ReO6AIpeUDTwmmgaTDx4GT zaRHFqzKD0RINeuASvA8Pr KZWxPP0ouqi3DMD8DHedDM KeElT2JJSojVTuLWAaiWjw SBwyn636GUY0NhKpAYOlom IvdHobuB8cJlNdSOE6VDAz NSBYIDJccGFyfQ== CLINICAL HISTORY (test a7qnoUTsVKIudJS0FaLgEC code = 3356) Xif5hds4ChpJKonDQgIEux zZQwojHyam78pKV4nM84YI 9jRFZqWgV2RNEmvzN9Cjy0 WFAmIABhaDZoH890n6hig0 rxpkSwoQF9OQPjKLHwH6Qh MI1wGZLgnTGtR42yuGFbTO K9NZEjXQHpmVNlDQOvJNQ0 WDVzoCVdT0rkOGSvFW5ruv xoCTqoRPgaGMUgbST9JHRs yUQoS1ZsYPYhUFtkCMVlgr x6GqGvMc2uzEHlrCjuYCcf YXJkXHJpMVxwbGFpblxmcz KsNRDmWHLYp25hhZReKEQv RWYhalphFRUjd3i6zU31tS GfhRTkVNmlMrlzlI4geSXb hHUbBMLxJKSciTsqX2TyhD C9PGLyU9CyOGQ3aVPxZRAj tqGIiTMqkH0rdNSem6OaaA m1RFSed7m7qW00aRBkw0Aq hLMfAAZ9yzWxAYYkTtffMM GhIETfrVumNSBthaIzx0Dc kzA8xOPiUWrcWTVgF7BoXG IcHCMqtcKsb2btswDlJH8s ZXJccGFyfQ== SPECIMEN SOURCE (test h7txaRVfCZVoeDR7HfQqKF code = 3377) Tsp0obd3XymDHdhCPsEVke tAGacdWluy49oUR5tR09WC 7bJBFtShS0NGUxaxP1Fvf3 SQKhYUAcbGQnI784w6bym5 vmvvXmdVQ6aNfkXOVzjedn MbB9PCpqUBHljmhkAKt0RL ycOJJccUS5UCHbiOTiL0Ru JXMgXV6sgxf2VNN6IAeoGK LmRzT1GQYlgNPdBSRujMlg SMnxo693ROR4GjWbSKDebc EjwMwvwP4hJeNmOVVTAhNx NgzkjBD2CSYzUPA9ptgdTE uiwqEcMh5kTLHbgYxgTNYy i0vypufduAOkiqC9WFPiXP xwYXJ9 GROSS DESCRIPTION (test t6pfaFTyLODjtDFKZENxF4 code = 5287789748) qhxsZkIELwzKIpB9Jxzggs NGvqMU7sCT8gxXnpvSLqaU NaPT5NCYMqMiAuNZPxvLUh yaHiUgDaLEYxtSXbaVQ5MC NgQN1vzxbgAAhqHLbwKHCp pcT0UWAuwNPyQ5NaWZYqPH 0vigxzAZW5XZzldM7icnOS PaqwFv4ceLRcwLfmGlLsBg NoYXJzZXQwXGZuaWwgQXJp VTv0vN1HFxqvRVG4FXAATk izJPYmVS7Eb9jfITJpmPPm ZDZ9EQwrzLOeHWUdFRKuZI h4YCJhHHemdARoQB5qrCsl RcmruXaag8WfcDImFBvqLD BlMIWoENbcBNZaNU7UPcTp ITM0MoK7CRXiPUf6CNn7OK 9WUyAiICAzMDAzOTQxMSIg ECm8INxcNN6XIBDzUJZtYW F0BoU1ZTG9PFRnMZWxWvLq XGYgQXJpYWwgXFxmbCBcXG 0qgRmhtFDyjaLHCgLLbN1e m1grEUjcm6NbeCFqCTYifb ANClxlcGljTmVzdERvYzEg DQpcbHRycGFyXGxpbjBccm luMCANClxsdHJjaFxmczIw BHHqPDRwuTMvjL4bjhAnby VeZIJfcLGmPNVwvjKks1Ja HXpinjUmZEBlpVqnKAY6kO HtQJGxSLTwVOIjJK19MJpX NHMgbmFtZSwgbWVkaWNhbC ByZWNvcmQgbnVtYmVyIGFu HHBlX0GwjRGkJqPcgP3rr4 alSCZoQRZnn42jdFC3geLg FpX3DOHpkx9kaC7iQI69H5 3wCU5tf3QbdrIbWVNlh7G7 ZSBmcmFnbWVudHMgKGZyb2 4mJA0zELFhQBNiPQMjMaAo bSBpbiBncmVhdGVzdCBkaW 6dwtCbn26dCxNVkGKde0Fg K6vcTN1gcOBed3PirMs3oX YjAXzvVZRrmG7tBm8phS82 kN5gXVYcxYCwGNOud18enV 6mF9Yir5D5tTWaRNAgZFMe ciANClxwYXIgDQpLTCAocm VzaWRlbnQpXHBhciANClxw bGFpblxlcGljTmVzdERvYz XgeTdolQ56ACOwdOAmWIM3 JG3qEXUvmrsxRIBsKQRdJZ O3GAimqI16zZYnIFRcWLTj uJZxbM0Ve7xxHGUtxIMmXV F3KAloxNUbSUUuTSEvMBbt HoRpZ2AIMMEbAlb8VOw3Aa CoPVx2GQlsX3VQXNTtMENh HWY8VXZiDaP9BQc9ZVZTDz 2eQuWrLuH1GIH1EWC5SVxp IFxcdCAyIFxcZiBBcmlhbC DoHZVlBMcjliR2HZUgEJHa wVmjkN4xWc6iOC4mpKZoDA AczL1yUU2jJVKqoxC6YBNf TV7mzSOeOH0QVJEkyMOVOU C7MC6mROKHBrdarTLhLXFj rIylUVgccT0eCI6TTNp0zp NoXGZzMjAgVGhlIHNwZWNp rCRtPKhiFDAlS1BfdxBqNH dkHNRwhf0vdLazRGmhFpUx bGVkIHdpdGggdGhlIHBhdG hyflBxG2X6epMuXG3uZTMx AVSsO8BfIXFtD87oZWJyuR 4cQSNmFS7tYBS7xqVex1Ju cnNlIHBvbHlwIiBhbmQgY2 7uz8ypwZQkm0QtBKA6XF4t iWigxlNdnDOnj3PwG131LY KtVXH3mVBktGTrKdSvB73n xvHmBPxaFtHtW81eaF1jS9 GbSTMsn8ZmIDmzYT3jlO4r ST7lXFdpYRJuPBCcaSLeCW beVVL9Dr2riIYnFXGbzrJ3 p3NjTRPvaHwoz0cfHnPcpK u0hkW3wU7dVVaqRLHdd3Pq dHRlIEIxLlxwYXIgDQpccG UiHN0FD1rzQJZuc1iyRJ91 FFowCTBbMRovjFrktB7eAP ImX93zs7BQe8BsTVXxPBwc e5xqzXtlu1QllSAnBUftSP OgbKPhBOskjD5dQtRee2ao qVn8YYacwbY4OJTqte3EZe iccP2hUfMcz0iewEr8UPUA ImatjfB4i1bxdZhmf6HmiF DtMZ5CFb3= MICROSCOPIC DESCRIPTION e0agoMXxTBIdeIL9XsGaRY (test code = 3371) Ssh0gpt7HggYOiyZLhABlx aPQjvdBfky41gDB2yR15EP 1hVIAxKiF4NJJfqwZ4Pcc4 GLBxZMRzkCDyO449m3mnv9 wdoeGvhKF7zOfkHXQptfyn EiY7DLgcFLPuhqfzHGf7BQ koSIFqaRK3VBPmqXFiG8Ma LQDvCH4cdnm9ZLH0LVblDE YgFvH6JNHqhTKbWYMoeTcb TVusc927DMO5NqVnKPOijb KgeRspiW7mXfCgURWAVIDz r9TwJUTfDHYbda2= Gross assessment was [facility] performed at ([facility], = 2777) Department of Pathology, [address] [place], [place] [address], Technical component was [facility] performed at ([facility], = 4516) Department of Pathology, [address] [place] [address], Professional component [facility] was performed at ([facility], code = 2779) Department of Pathology, [address] [place] [address], [facility] [id number] 18:40:02 Test Item Value Reference Range Interpretation Comments Case Report (test code Surgical Pathology = 104) Report Case: [id number] Authorizing Provider: Trina Perez MD Collected: 03/08/2022 09:24 AM Ordering Location: [facility] Received: 03/08/2022 02:08 PM SERVICES Pathologist: Pinky Kumar MD Specimens: A) - Biopsy, Gastric, Bx B) - Polyp, Colon - Transverse, cold snare DIAGNOSIS (test code = [id number] 3220) FuZzEwMzNcZnRuYmpcdWMx IHtccnRmMVxlcGljOTYwMl hbfnQaLRLdrVSxV7Vtyfvr UQmwXH8wKF2yxTmbyYIzrA IrRYFjVqEdp5jln352hKSm y4yiMMXRoqazkOf6aXyyI9 9xi8B0ThonQ80auLLxEXN9 NQYoYXGkoQSzPGHyXKS4OO ZzbGWwF9lmKIDwET5epejp VEvaVDmvFJUyaPR8HVIagU SlP1VtKBEnUAviZXBdync1 RuSiDg3pcKJaeJmiASheTQ BvAMZbCQcfBIPcXgYcFS2z I2BROQPSUGTIEK1YI8clbJ QvTN1nUBBCBCPSOxcFCCpF BYVYXABFYPvFE6IMBVXHWj hxZSvZFDydVLIvODWgQD3Y IElOVEVTVElOQUwgTUVUQV XILBEMOUqqFTgEPDoCW2fH UJ1LJNHRAoXHSo9SXHYNWV VOVElGSUVEXHBhciAtICAg Of3vNZQENBUKAeOYYMKJID FFRH9MZVFWVUgGSJ5WM4RL SVNNUyBJREVOVElGSUVEIE 8YPRLNKOFJYvFnA0ETLR2s zYKnSDWvomUIAwCGV0xTUb tuFHPPJaPCDZJMAWAUZ6pE QyUDY0bPJMoiZN4FPUABN9 MZJGcwtCMnCH7oOBNMJ5oR CN8AZWQGUGGMW9YHCIJFOL mXLD8LSLdJNXjxWm0wCQjH R99XX9JSLjEINXRWF57UUW 9VUyBPUiBIWVBFUlBMQVNU KVZhI4cVSioHU1jhJJCxXH AbCK79zVEvgSojNXgpetVx vtR8DRFwNLT3PQ4fzuKeZI AihZLwiHyuiaSyNBxhn2Xn MHahQKBhSH8apZapLPSlSN 9bGHXrQ5butI3feer7IeLn SIAzThV7MLXctdF3Klw4CN CdGQvhe6nog4AhWJBnBHz1 cBwhXtOoCVKgx7yrwrViDs VfOZFxQNKyCJOdqBFfZ959 l5prw5mcgnYzbXL5OMWaSI K4ZLijlqYuseN0NJzriANx KiU1BItoxiSfAFhvmgLbxl EcUpz0DGRbU989EGR8eRmq u8akAPI9RHDrDEAbXbNkUq 4njTRdZ394FBBqLZVKCGWt uWx6PNVhbjYelrCzvPYMo2 13O321k1yfFFAiozPckHhP ekphd2mnM683BQOhbQKwdg NgDnCvLROzoBLfyCJ9RPJo QF5noupzYWotNZfvYXRxzs M2KUYgwHCuL4NbMZVjSO2e cgawMPT8LIaoVMCdURF0Bc GaXKYrm6Ivuln1JtPtnf6q eb29FMP8w2LudVxiJXT0UB A2QuYgXj4ckQRjVPMxMF7w TbFfyQTyBHXuoe84jQxuUZ niIWC5ZYWomxJye1Tyb4br KeFgcrJyJ5bpG8QaLUSeYH ArMPRsErKacgKqg2Btq5Oe rQLaqRr6d5fhSFHaHVElwY uds7pvOMT3KBFfpOKwB1zn eX0dWZMsEP9hqntgq1qcCO hqZDyrTTXxcKB5dsZ6CJRq iZUkN7PddI3cISJiQBkgTE Nkcei0AgGhFa4rdFHtmTqx MFxzYmtwYWdlXHBnbmNvbn RccGduZGVjXHBsYWluXHBs YWluXGYwXGZzMjRccWxcbG FuZzEwMzNcaGljaFxmMVxk HwUdABNuRZzxO0wdPqFaVq AzJve6EACxnYLvFPZkIgo1 APXhgHQeXRVSfKtwbS2cDG XcoPhcdM3vdSD7YVHbjbLq jRYXuE6vGHNQlA9fWjE7Fi GhVbU0JFk4AfYmaOBdlX9= CPT Code(s) (test code a4mcoQJeWJVcfEC7NmKyCX = 3357) Hqn7hto9NqpDNwwBJyBCdr jYUameGnnw38jWZ6hS84AP 7xCTCiVqW9KCOshzG6Lbh3 UFZdHUEmaSFdO261y6ysc1 oosrLysUA8wIzpAAQaiqky TtC0WTpbVNGgcihsVMs8VB stYXSvwKE5JPVhhSPoR0Ur TKWzNN6jszf6MEJ4SPegCJ UkIgB3LODnjXItMSQblUvw NZshw271RQA0IyIzLGXvbc QdoQnzrX3ySgDdUGF7DRHu NSBYIDJccGFyfQ== CLINICAL HISTORY (test l8aceAJqHWKpmHT2AyFxGA code = 3356) Lpy2nnm6UijQZhvUFnDTyv hAWrefMjpr44oBU8vD49RY 4vVVOyNjJ4GQBxupE1Ija1 CSUzAMVcpCEfW564t5jbk9 yiodPxkRA2TMXfVSUfY0Bz KS7lSJGgmPDlP00vwLZmPT D4SWJhQRXyfJNqJLEfQGZ9 WNBohUNtI5kqLAGlUJ3lir amNGhjWLbuMNYbxOT7RHFm iWSoS3GkEJPdXOgxJHMapq k8QjZbSb4hxOOpyNqvIYll YXJkXHJpMVxwbGFpblxmcz OaOZJoNVTXq89rxKJtTXLb UFUvnodgEMZgl9y3uL56xE FdbDZqAWkiHfomvI0sjNHv zMBuXKImFGAstKkpM8LlfN X5PBBrI3UqSMW6iZUvVVWm ovBYcUPjwC8vkFWsb6EayG w7DJPup7g9qW21uHDgs3Qy tNZvTWD3cxIdREZcJqnbSP WeHSZbeXvkTUSjqfQjq8Ba gxJ3rNZwWKvuDDVhX2SyVI ZtTZHsuaGxl3dcoaZeQG5z ZXJccGFyfQ== SPECIMEN SOURCE (test a7zplDZjLXXjxSX4KmOmMW code = 3377) Rqg4lcf0RizBPidFCgNSjk iKBkxhVqcz65iVV8fI45TS 2pNZDmWcI1FYSrnlG4Vor4 NONlEPZadOQlX164d6hso5 ffibTnaRR1dLrvNXTpsapr JhC2ROqkISThfgorEOb3RF onLGWilJT5DSOkvNWbC7Zw NLTnMM0lhyy3RXD7QZjkWV KnJwK2JNRwkFJcFUFrsXqc VGyly953MLF6EmDhPMUmpf VlyZanhC7iVlWuNUNTUrEp CpydwMA5ZGEdKSP0tmfuQO mcmcEkRq9xEGBszJtiUEPs i1qyevndzYLhmrQ2NMXhLU xwYXJ9 GROSS DESCRIPTION (test r8ptjPRiILZjdFKPRNNoQ0 code = 7222756956) audnUfZXLcmSSrF6Oivinf TZviGV1dKV1tzVmyfBWenZ MyDY2BVGTpUtPyXTZeeJZv aoTwDtLjJQSyiXVnwFF1EP ImVC4vhpzzAYcfZCrgHMUg hzI4FEYliMIxC8VxXRHxUM 6qccvwXKF9PFdnwX4umfBC AqprVh6geHGsmPliCpBkNd NoYXJzZXQwXGZuaWwgQXJp TNa8mF0DUzlkTBK6WVWAXg nnFQQvRP1Mr8dpGPJeoTIq VFL4CVnztBLuGEXyFLNkPU u6PEAiKJvjfBJqZA6llJbd IhzlcEgct0RttJEmYIrnTW CkSKLdKIpqVPCmBQ1JVpNy VFN6RrK7JZYnDDk9TXv6XJ 9WUyAiICAzMDAzOTQxMSIg FDy7AMhiZF7JODBeLUVsAF Z2VnR2ZJQ2FSYwUKWxEfCr XGYgQXJpYWwgXFxmbCBcXG 6awLidtLQntjRBZqOUnA3m e6wiPDpld1TogHIdCCSgsg ANClxlcGljTmVzdERvYzEg DQpcbHRycGFyXGxpbjBccm luMCANClxsdHJjaFxmczIw MVYuGKEyuQJcxY1yvrIedo DwLMFslJYoUIHlkeCew6Nf MUkzsfEuYNXfnWtkQYZ5mJ QiGYYpWAHnCYJrOG47ZLiP NHMgbmFtZSwgbWVkaWNhbC ByZWNvcmQgbnVtYmVyIGFu GIVjU4VqjFXmOdHmaC7hl4 bbDNVkHOKtm13ycFO4eyYo YiF6KSSbao5miP9nCR20P4 0mPG0bm6DekqAoGQIxt2G6 ZSBmcmFnbWVudHMgKGZyb2 1vTO4lFNXiROEdRKJiWcHs bSBpbiBncmVhdGVzdCBkaW 5kijAnp48nUrKAlIIpk9Af G7ubTT9gqZPxx0OjlSw6cV PaLKbrBHBrkX7uZd4vnB75 jP4rZXZsdKOrXUPjn33uuE 4sP2Tnc9I8hRGnCXRiNNDb ciANClxwYXIgDQpLTCAocm VzaWRlbnQpXHBhciANClxw bGFpblxlcGljTmVzdERvYz YnaYedsV68BJCngZVuITS0 EH0yPZAwyjqsRBDsLINgDM W3HZexfC12sGMpDXPmUHQi mWHinB5Uy8obTFEapFAvIV U7GZzktCZsJEEwYBMtDHpz FjYrO9NHICUkTay8CTe0Dm DyIZe7NAcbN7UCTZIvNMWf KEO5PGUvNkR5XIz8QKGKId 7lEyOcTnA6IYD0IBV0KHpn IFxcdCAyIFxcZiBBcmlhbC VbWGEqLDfeqrD6KZWxOBJz iCvqzC0iGi8jIS5qhURgCY AsbM6uMD9iKIEmtfL8VYXt WP0grCEiSL8VZWFzuAABZO T1AQ9nKSEKRntetVDxZJFt vMmnYRnbtZ4iWA1ZRNp9ha NoXGZzMjAgVGhlIHNwZWNp uFHzOQdbJSGuS5FiddYbBJ pjWTEgeu5fzFumFEjrRgJv bGVkIHdpdGggdGhlIHBhdG dnvwEtZ9B7roWoIQ2rNPXw TYNmR2SeKJTdO73jRXCjsK 4nGGDsXN3oMJW3qgStn2Yx cnNlIHBvbHlwIiBhbmQgY2 7nj3yvwOIaw1RdSTT5WV3g cMiipmQzdPLkx2BmY892ZS BjJXQ0sEUhpFIxLtEsK49s gcRiKMzfKaTxU34vsZ8pC4 ZlWYUlm9GzCNcwPH0vyF1s HH0tPJlcLTNyGZLgsHInVH ejJBA8Xt0baLLiPOVhjlS5 b2IbWFKpvKyil3plMxXvkF t1tgN9mA6rVDjeLTWer9Jh dHRlIEIxLlxwYXIgDQpccG SfKS3OG8yfCODez5mwCD58 DLdgQSGkNWnoyRxwfU1qWM SwD25lq3WRn7AbWIYyURnq e9zfgZcsy8GuwSYxBNwdGX QdsPVxCTgekK4dFgFxv2ze aEl2IRbekdY3MALtrq2VCg kgoK5sZrXrr4fqwSt9OLDT NzlraqX4i7ssoCenl8PmrY EhXB4DCa1= MICROSCOPIC DESCRIPTION h1golFEcMNXfwJN7YaWmUI (test code = 3371) Oop3qfi1AvvGOufYFhCHiz lGGbotXmbh57dTI6aJ37OS 3cQXEwWoN8NTImttM4Xnx8 MTHcGHYjeKLqK433a8stn8 ndijReyLC3hGpwXTNidafx PmC2KGarRNZotozmVRc1OB mnIXJllQV3QXBhvUUoX6Cm CANoCM2pzvl5YWW7YJgmDU DcHrT1IEMgiMIiHZRefVjq RUilp687WLV3ObFxNBZinu WpsEzyuV2zTcIwDOMLFIVe y8HhOWLpHLPlfx7= Gross assessment was [facility] performed at (test code [facility], = 2777) Department of Pathology, [address] [place] [address], Technical component was [facility] performed at (test code [facility], = 2778) Department of Pathology, [address] [place] [address], Professional component [facility] was performed at ([facility], code = 2779) Department of Pathology, [address] [place] [address], [facility] [id number] 18:40:02 Test Item Value Reference Range Interpretation Comments Case Report (test code Surgical Pathology = 104) Report Case: [id number] Authorizing Provider: Trina Perez MD Collected: 03/08/2022 09:24 AM Ordering Location: [facility] ENDOSCOPY Received: 03/08/2022 02:08 PM SERVICES Pathologist: Pinky Kumar MD Specimens: A) - Biopsy, Gastric, Bx B) - Polyp, Colon - Transverse, cold snare DIAGNOSIS (test code = [id number] 3220) FuZzEwMzNcZnRuYmpcdWMx IHtccnRmMVxlcGljOTYwMl nkxbNfBZIweRXnN6Alpftt JMocVV0qFU8skYfzqDOphA VyJRZxVpOen7mjb083lQKr p3zeHIFEzokxfAr3mScaC6 5in8D0EhjiO33jeYKxASK5 GBYcONPonBPsNPEuJRO5OP NhrIUuK9vaODDpOZ0wlcir MTjuCMnoXCMygVY6GCPkhI SqK1IcXWMvEGznLTDmvmk4 LnBnXv4dcVQjxPzhSZocVG HhPHIuOEtkGWSrMyGxBO1w D9AJBCCLCWJRTF0EE2ayjV WwXY6vXEFXADKLIpsHYCpT AWJPXTGGFMeFW8PGXUKTPm ezSPhGKRxkVAHsJDMqTV1O IElOVEVTVElOQUwgTUVUQV YXKLUWGAmkIUuEUObZF4aA HK0ZRZFALtFICa2WJSSVKL VOVElGSUVEXHBhciAtICAg Po3cNRLOLBWFUfXYADWDCH BTAF8ESHBJPSoZQG4YZ8GZ SVNNUyBJREVOVElGSUVEIE 0VJJGJJPSFPjJbD4DPDX0h sLBoRKMnekJKFzJQD7pNFa gtYCFOIqLLAMYIWZIBQ5nJ LcFZK0wNQBnhWT2GRSVDZ9 FIIRheaRLzXV4oEBXHB9mH NU2ZFVUOEJXSX4MPIVFYOY gNAQ0XEQfQUOvlCg3zOTtG W11PQ9BIMnFDRUWMQ42HKS 9VUyBPUiBIWVBFUlBMQVNU MKQfE6rWYsbVO4deWSXhBI ByRY11bOZdwItiHBgcfpYy smC8JBLrSMJ6QS3nqoGpQW GwmIMjmEcqqdDtTTndt4Wt IVjsAQLoAX7tkYroOBNgUE 9dAANuQ6zdvO6ajsm3FrDy LUMxXsK6WVKtmsU1Heg0BK SkRLpky4drb9DsNRVqOCa5 eQohOhCeCGZgj4pfwePaBa IaMSKkJIBtATFhiUOyF181 r1his9gpnsVjnDP2JFImPF Z9FFvmrvTffjU2BRvusYGc LjA9RNzvjfOcPDahfmCinv IqWya6NSOwV940DGG6xNrn v1elWRD8XZPnISMwEqYdZt 8ihSRmT733AWKqBRAHDTFa nEu6LQFgbvEzggSzlCQKt3 79Z039c7zzTVMkphZvwSlY efcqi7gbH283UEGceFRqmh MzPgEaRDNfhQRwgCT3NCCo JM5biqkyEDmsYBgdTUAwwe J0FRMyeMPbR7ZdNWLuHN6d vgbnMBU3DTqsCBCcPTS0Kw ShEQTdj0Utaup0GnVhuz6f pe41LMS5m5GwiVqjXMQ7US L3IsBkIy3wvAWiFUXaKB7c EaFamMZvEGXaje50yXnhYL qnMVO7OUEyolHzf9Sxl2ys RuIcmqSdJ9ffO8KoIAXqQW JmCTArGhLaycBfh0Map0Vm zDXwyUz1j2qtYZXvEIVokD byg0mcCRG8MSIoxMLfC7na uG2tZQRxCH3udxadk2ukBN ojPQziNXZshUY3azD1BEWp aVLlT0UqvG9vWTFtHRvnUQ Cdlsm8KwQoKc9hyNNoqVoh MFxzYmtwYWdlXHBnbmNvbn RccGduZGVjXHBsYWluXHBs YWluXGYwXGZzMjRccWxcbG FuZzEwMzNcaGljaFxmMVxk FzLnURWoZVmcA0ufGoKcJv SdIfy2EHLjqMOnEMHsBzu6 BYZeeQXgSBCByCgsiN5uPY PxvNaapT3ukCL4VSVwtxCr cBOLfX8lPPHLeZ7kCyU5Zq LzRzN0VDc6SeRolEOgiP3= CPT Code(s) (test code p8ynbPIzMKRozSK2FhPlRF = 3357) Vcn9hkj8DamBTfuPHdBNuy wUIebdEfdf80cVE7pL51ZP 5wCXYoAbG5XYDjszC5Ayg8 YDEiTOBhmEVeN320s2kvf6 bewfUikRB4xXlbXABulofz LyA7WVhkSNTqughuKTn9BT sjSINmnWU2LVKsoGXsW1Wg GQFbWB3dhar8BOF5PGdgDA JhVrR9QCUuhKJfJLGpbUad VLsyq379USB6IlCrTUKxwk EinCeyaJ4vZpPuSUS9XGEk NSBYIDJccGFyfQ== CLINICAL HISTORY (test a9kkvNZgQHPywNW7LgDoMI code = 3356) Xwh0skh2MtrDIwaFNvXUhp bFDizrLubf87qOP5aK52AU 4uDGMtTkM5SCYmikZ6Rep6 YAXfDYJeqKXoZ893a7tvp8 gjhmVkmNZ6LFJcNKDaR6Cg HW1gEPAcuHXzG90aoZKqLX I9YLMaMRPuuGBdJFAeUOW7 LCGkmZRhF8xuQZUjET3odd nrGFmsWMsbCZPzuJE1KBZm bHGqR2BeJDEfKPinBMKyfi j5HdAhDx7emPCcfWhaDOjm YXJkXHJpMVxwbGFpblxmcz MjGBErVSAZs53ocSClXZEd GIXmukmzFDAka3o2mJ45pR VwiMVmLXtlGkttvF1wrBDx jCNkPKSlEQXjvGbcU7ZzfQ Y5KRXjR6HvUJT9aVXbXNIg avNZxHSrhM2rhCFyq4HqyO f5UZVtl1h3zR86sSArz1Rx mSQsEHX9yxYoSLSwKpffFT SzCGAlsLlzTTZmjlZfs2Zb ldP9gCFxBYuqDVHnD6PpJS HqHNJagpMzs3mcyzYkEK0a ZXJccGFyfQ== SPECIMEN SOURCE (test u6htiZBhSAKnfKQ9InOzZP code = 3377) Szi0ydu2BxoKUnvLGvKJgv mLVlmeQfda59vSW1iS30NK 5oQPQoHdN3ERWdlpG4Blz9 XNVvCSAybUDtB618w6jia0 ndlkXiuUD5hAveEZNvjyrx PxM8OUkmDYFuyvuyNFh7WW zbKQZhjUI4LRJinMGvD6Nf VNNqNH9hbpj4IMC7HFzfBN BaWiT7EMVeiSMoCLKodAsr QAavf801PHK3OjMfKDOlbj OetDkrnC1mMoCaXMGANtTd LhxpvJX3ZDAcRPU0ycfnTD pwthAlLc5gKUEvvPoxZFRr t2cylnokzMIpunB5ICYtTN xwYXJ9 GROSS DESCRIPTION (test o0rhkQXtHXSejVWXDKBbF0 code = [id number]) ijlxMnWMGdkSHmZ7Lxtvst TTqxQQ2hPH9ejHtlsNPtgF YoPX7YJEZeZyCuLVVdlXHi liKxKtEaRUGnbEGtiHZ2VU MpDF8glhhvXSyrHEaiUULh fwI4VAEdoMXvH2UsSQRvAM 1sekeqJFL8EPcurA6jwmCP EvuhNz6xvGFlnYadCfFnZy NoYXJzZXQwXGZuaWwgQXJp XIq4aQ5TIfrwQPN3SWVBDr pnGMPyZQ4Ob2lxSJFmfIEc JQO1DOgveCYuMXYkAGWqKB d0KPBlGMjooVCzMU2pgBli ChalrGtxr9JedMBaRJhrGU AlLGRoUYncEMIjJC8FZhBx YWK5SrW1ALNqGKf5HUh1NS 9WUyAiICAzMDAzOTQxMSIg WFi4PKxzDC6TYVCwOPJxGD V5DtG0ZDH6OMBrYBXpMsQy XGYgQXJpYWwgXFxmbCBcXG 8xxDbvnGFiunDKNbQIpF4c a0pvZPsgn0JrrFNiJHRkxq ANClxlcGljTmVzdERvYzEg DQpcbHRycGFyXGxpbjBccm luMCANClxsdHJjaFxmczIw YBQxLFRecZGddB0ftySmzh AvGFSbwVUlKRXcmkPie5Bb GCtlfdByDELacPciLOY3qY SdKTAmVVUiQTKyOC62WYlU NHMgbmFtZSwgbWVkaWNhbC ByZWNvcmQgbnVtYmVyIGFu URBoX1ChgYHoNaQkvP8lo8 vxIQSiYNXas75ksPC9ytVk JwE5JSWrrm2nwY0eCB96E6 8tIA2db8MwmnLsZTRdj0M2 ZSBmcmFnbWVudHMgKGZyb2 2uNI4uSVUcDUEoAEMbRcWa bSBpbiBncmVhdGVzdCBkaW 9nyuCpk39dQyJJuJNhv2Lx T0hpDB0kiVIjc2CsvQt7eC QmXXmbASFrpH9dFt5dsE19 dM6sJIAarRXdHZJri64tuI 0tH0Tid0N1iZLpKHNqREUx ciANClxwYXIgDQpLTCAocm VzaWRlbnQpXHBhciANClxw bGFpblxlcGljTmVzdERvYz LpiVswsM01YGZzdAQaWZD2 HJ5xORQhedlsKVClSHHzIY F2KHmqqU14lSTiFFEgKYOk hJVfuK1On3vcFGBgoXAbBC J7MNfgiWQsMXHvNKYjCFzd PlXbS8MTJRCcXkm0NLj3Gw KmFLf0OOykN0TGFXBgJFDv FWY5LMMaNuT4KVh2PRCAMh 2eNiYdFoM3DGB1DGN6LVvy IFxcdCAyIFxcZiBBcmlhbC EgRYMnCEazmfR7GWFwGFNq yMlsqX2fDn6mQR6kcZLkFZ SvvG4pBP6xDYJghaI7HQXr SY8shSSqTH0YOIDbkJPUAX F8MH8oXHDWMbtbbMSkVBFq gSdbIMkprE0yME3PAWd7jq NoXGZzMjAgVGhlIHNwZWNp zRLbZXpfMLIfH1HgzjByOW awPNQjql8ocTwlZXmwEcVj bGVkIHdpdGggdGhlIHBhdG icydBqT2D0cfGyUW7wZKEv CGUwJ9JgKDQuP50mKMTwhF 7yCMOaCK4iGUP6ifTsy5Ii cnNlIHBvbHlwIiBhbmQgY2 7ud3pewIGnk5EoJNM0ZL2j xCxvhmTtrEFdk9ZlO214JG LaYTO5uCDfcVTdBuZoR18e poSrTOtbYpTqQ69mbR9lU5 NoVRWrn4XzOVktPJ0dtD3q UE5sQIrnEPHuRBQjlWVqRE zdOXW4La6rtCRpGULvvaK4 w7NsKAHwlGvvi7bpQoRpxC m8qtI7eG9uWTlxDEVvq8Qi dHRlIEIxLlxwYXIgDQpccG GuPU2NI8dcRGShw5ceLM59 FBbgVJYoQHenoBhksH2iQC SqP95gm4OXq4HeEVGkYNvn s0jbkQorj2OdaXFjEPleAF UuiDSgBAuxtS3mQfWtd4ag gCp8EGrqnaZ1XXWviz8ZRs ahyM7sMbLaa6einPl1MBGW NrgrxaC1b9tdpUfzc5QbcC ScES4YMg1= MICROSCOPIC DESCRIPTION y7onpABfYYCkyIX5OtHiFS (test code = 3371) Sgm7iik9GvaXFriEElELin fNGjxzEvla74uXT8vN37IH 1dBDSqEmJ3VVTxpuZ8Mqv9 MQBrOLWiiSQpZ145q5jgr8 nosxQixZE0aVykDWUeuyey IsS4PBwcFMSfdllaZCm0TL leQAFjvIG6OXJxtJIfN4Yb OWIdQD0xqpo0GQT4JZgdFS DoOaF8AVMgjCLtAVGdaLyk TWcht062FYW8SlUzIIPgwy LsiEuhhY9vLnBoCXKGABFn y8NqAXTcWUJvgo3= Gross assessment was [facility] performed at ([facility], = 2777) Department of Pathology, [address] [place] [address], Technical component was [facility] performed at ([facility], = 2778) Department of Pathology, [address] [place], [place] [id number], Professional component [facility] was performed at ([facility], code = 2779) Department of Pathology, [address] [place] [place] [address], [facility] [id number] 18:40:02 Test Item Value Reference Range Interpretation Comments Case Report (test code Surgical Pathology = 104) Report Case: [id number] Authorizing Provider: Trina Perez MD Collected: 03/08/2022 09:24 AM Ordering Location: [facility] ENDOSCOPY Received: 03/08/2022 02:08 PM SERVICES Pathologist: Pinky Kumar MD Specimens: A) - Biopsy, Gastric, Bx B) - Polyp, Colon - Transverse, cold snare DIAGNOSIS (test code = [id number] 3220) FuZzEwMzNcZnRuYmpcdWMx IHtccnRmMVxlcGljOTYwMl kxnsAwAWAsnFVpS1Mpltix NXtgOL3mEQ1wcDmooVMsgP ExRIKlZnYps9bsp809yKAi i2xfEKJPwrbnwIy6uXcrM1 2eg4F4ZnziE49aaXTxJNS1 GSEiFOIlwGJtQFSaWJY8PH HnaCLoG4tgTEGvJC9tfrwy FXekZYsuHEQebED8BQBnbY OqK3LqZHFcLWkyPIRzdke6 QdMlJk1cxXOcjBxeKJskTO YlNQAwBTaiJDMlWmOeMV1t P8IBOBLBUUPMKV3KK6rckS KaQS3fEDFOMCYRWlpXDToF JFQCKTWFWAzBG4MZWBHSBg bvIVdIUCpjQYUkLXDlZT0T IElOVEVTVElOQUwgTUVUQV BAEAXMMFkpGOhGCJvKJ3tB GY5CWKNMErIJCq2RSRRVGV VOVElGSUVEXHBhciAtICAg Fb7vFXOGRQJCRvJZKZTTFA OSJH6XTMSTZWiJWQ4LA4OI SVNNUyBJREVOVElGSUVEIE 4ZOYWMXCXJNoKjC5PIVO3u pMPgNMGvasIEBmGKG2uBUj juFVIKOnYJFBOBMCBXQ7qM RmION8fXXLouWA1PQJYVX2 FSYZueeJWqMB2cBAWUO6lM SB5LTYVAGFHBV5DKGMXOGJ wLBW0WUVzKSZuqHm1mBOkF D32ZA5ENLiGCTYPOI64FVI 9VUyBPUiBIWVBFUlBMQVNU GUAiR0wJJapAU0cnICXrHT TxEA35sSJsjExvJYezzeMw jsX3ZWKvOIW8EY3ojcGuXY KzuOJcjOrymdNgJWcyh5Zs LBmpKXGcDH3flMlrDQEzXL 5cDNQuB5bpjA6ubwc4BfFe ASIlCgJ7RXVbniY9Pwg4SS SxYQybl6ecw9QkVWWiRWo0 vTxfVsIdWDXac8njtdWrWy CoKMHfJTIcDQOnuZPkA414 n4unp7teerKmhDQ3VFFpYL Q3AFxddjVrqkB5YJgosAPp EhT4QDjjmhScHBxpwoEhsb FzEng5KUGtO271OFG3cJni n3pkOHM1WBOeTYOrLoTpBe 3nePNlG157HWTrVYLPOTCh bAh5PGKzkdFvhxJrdCJLd2 95Y491i7yhZVBvgjErlEjB lcozp8cmI350LTIpxPMrqz PwLpXgMFPddMKtnCC8SYUc WJ7lclogWQfyFNymDUGyts X0TNNxwBEnG1CzTZJaBK9j rjdyVBE4BUlsCRCuLSQ8Wi LyHZBma1Rtrzg7PrMhav0q st39OVT4n7FzaUttGMH1HG Y2GaMhRn7viWMsIVIzMO6l YoLevFKpPRVkps51wJgpEZ rtBPO4DFMvheIix9Jty8qt FvKduhVpC0xiP2NiLKCoIJ VoMNUeEgQeueTxw0Doh2Mt bQVvjYj5h5txODFnONYfdT tra6yuNDE6UDEypMRwB7pf pY5wKYQgZI7yoehjw1vfGJ rdOIymBNBrrPV6peO2WXKh qEBnW7PfgI5eZISnQTyaNQ Ncyub9OcFpUx5voLPzkWjp MFxzYmtwYWdlXHBnbmNvbn RccGduZGVjXHBsYWluXHBs YWluXGYwXGZzMjRccWxcbG FuZzEwMzNcaGljaFxmMVxk BxFrHLNwHIvtI5etGqPrZj QgXin2JYRpeAFeFSPlBwh9 SRBdiFCvASORmQkqqP9uFF LbiWahqB2ynSC8YMVldvHi cPQKzC7vZGUDtO4aBjY7Bc OkOkU2HBm7JuGhhWMflY7= CPT Code(s) (test code e1dfgXXrMLZefLC6WcUwSN = 3357) Diu7wyw1HcnCOvvTRrOXzx nKCudsDxai27gZB4kC85NS 7fEEIcQcG4YYMpbeM6Pky4 PPZrXAPngQDqC503j5bno4 qlzgNwdEP0gLhkGGUdgxfx MtF7KXzoWXGkxvvxIFd5RZ wuLJYocRF3UAYxuHHgO0Ma YEBsWI7iocl9MIS6LKunIQ OoQrB7UAKnwRXuMAJohVpm BKpef170TXX4JaXoVAOkki TyyWakiN3gFiIlVNC9JBDt NSBYIDJccGFyfQ== CLINICAL HISTORY (test y0atrUBxQTLfcTX4KwYpXT code = 3356) Apu3vea8JetWMkwLMvITlo uWNctzYnyy27rTY5lZ58AI 1jUHKeAmX3IJGwpdZ8Mlb6 DYJbHOBazBYmW317h9cju3 ykuaXdeEJ2LXEnNXPgS0Hs FB5hLVJgrEMsR73mqENpXE G4FYGfPJTbtEZrYVWnFVO2 VBUzjATgJ3ckKHYgXI4zgx hfUWqxZUzdWGQjwNB5AIJt qMLqH8TnALRpMBlrPRCyrt g1ZrWhGx6sgKGopHtrMShk YXJkXHJpMVxwbGFpblxmcz KfVPMeCLWQo98dcMGpUREt FXFldikqKEYmj3j6iA83kL UzoAHmXUjdGqykrG1hhMMr jJCzAACzSFImnGdiV0WfzG T9AYLzB8AnEUA1jAUiKTMd kkUChYUtxB6twVUel4EoyK s3NAPkx1y2dE08wGSfi1Vc zDQmVPF8qaYwRJWqKqpgTO SxHDTlkXkrZBSiylQxx9Ij mwE1wSPgWJdpDGOzD4NsZJ WbFHTirqNec0jktnTyGG9d ZXJccGFyfQ== SPECIMEN SOURCE (test w4fhxWVkEXZbqQU5QoDiGL code = 3377) Lgc3ocb3WzbVQdzHSkWYkc oNKyggEugj71rCU4wM76IY 2vSJKfArT1FXEimtB1Txh6 IWSoZGInoURhW909n3esw6 xkdiLziGA8aUeaCEVpjpxg LuT2AZykTRKfntjxXDw7XR riEWZzhKC7DHSbdEJsM9Ww NDKmPI4wewi1GBW2SPotJW KtItU9TJToeKOkGQAvtEuu WFxbo687KST2KsEeNEEsjg HfxDkqeL6mLcJeMISUJqOm GqlqtKT0MMGlRFN5nivtVN hdkcGwIs9qMOLbeQhkTGUl s2osabgkkXCnjhR0QFOhGK xwYXJ9 GROSS DESCRIPTION (test s0ojrKAyKSMycPVMTXFyP6 code = 6024872197) sguqKyYHSsgUBtO0Meklpx QLkeDZ7dBQ9pbWdrsMLxvC IjYD7PTNYcDyTbFULswLJb pwXhQpGhQSAddVSkcHP8UD XwOJ2nhbkdODpkNTkyJJZp goF7WCUfxRYmO3XgUMDiTA 6zprkyPPX9SHgmsO6svbJO GtetBg8jeGPllInuMdPmBw NoYXJzZXQwXGZuaWwgQXJp LKl5sH3EPrhlIFZ5ENLHIa mfIBSgFJ2Ro4rnYVMrgVWs EHI3XJvsfMIcZCWpOYUsHX f9XHOxBLlxjHBgPA9jbSom WjeqyLgnn7DcwMLjJMyoXT SdRVLzYTnbCOJxJO6NPjNu ZPN2GvU8GBWgZCd1FEz8OS 9WUyAiICAzMDAzOTQxMSIg KHm3SVltCG9VVOApGINkXA T6TkR7ZFW6URYvQCXbPzFp XGYgQXJpYWwgXFxmbCBcXG 0cnHdvxHVzolWHKzEDiG2z b9bgAGeps9VnkHGcWATrjc ANClxlcGljTmVzdERvYzEg DQpcbHRycGFyXGxpbjBccm luMCANClxsdHJjaFxmczIw ZEFrLSJicAEznA7rceTpwh FxXBMulMPjBMXvsyAcz6Fi CJisdlBgKTUydCabXVX4lJ ElVFOyFWXiLJSuOT17KApE NHMgbmFtZSwgbWVkaWNhbC ByZWNvcmQgbnVtYmVyIGFu PZOhG4PvhXUjRmXkrA0aj6 lkUHCxIMEzf75edYK7zvCz EyM9OIZjjf5yvE7iNY05G1 6cOW5wx4DddtDeQJHgg5C4 ZSBmcmFnbWVudHMgKGZyb2 9sNZ9wKBXxYFDcXQGaVsBe bSBpbiBncmVhdGVzdCBkaW 2djtBiw44iAdZByLSrg9Ov Q6cvRA7byLUsm3ZdeBh2jA BuVKxaYMOnzF8hKf5bwH24 bN0mDLNytRXoSSSbp91ivJ 8xC5Zdu6E3aUQgZWWwKTHy ciANClxwYXIgDQpLTCAocm VzaWRlbnQpXHBhciANClxw bGFpblxlcGljTmVzdERvYz TziGjwrD83LFCzlKOeBDH5 PP1vBQBwcovzSFHoZZLqFI V2OJizcC24vWWuNKEgERDc oVSalU9Ix7qdDQWqmGOqDB U6NGbonMTcQISrBCKuYCfi ZrBwR4COFGMoOmm1DEe3Au AcJVp8NIyiN8KQTOLjPBKm WTU5RTUeZuT3VWo7SJNUAs 5hWrIwJkX7YQO2NWP3OCdg IFxcdCAyIFxcZiBBcmlhbC ZeWILaSGelrkU8RBApRNTg tRgteO6uMj6uCD1myTMpDS AwqC7dOP6jTMQjrtY1GNMw KG6mhFIrAJ2GKLAulLWOSM C8SQ8uEUQGWprqvADcSVFu lHixGVbsyO5yEJ8YRMk5bm NoXGZzMjAgVGhlIHNwZWNp gBKaEBkiGCJaX0HcjgTtMC scTBQfut5kcCzwCEocTuIs bGVkIHdpdGggdGhlIHBhdG sjxfYlD3A8vwLfEM2vMBZq LSUhO1WmUXBjY80tWNOtpC 3sTRXlAZ6rRHP6yuAph1Cc cnNlIHBvbHlwIiBhbmQgY2 5vt2mumQEtt9YnYEW8TP6l hNqvjcWveMPrg8WkD307ZG ScQGL3uWZcfLHeNmUdI92y wzKmYRctXpVlS57pgE6pQ8 CuMWKsv5ShNPsvEU8qjT2d WU2tBMvuESRaLCXwcZJlSY urMXC7Ly4hzVLuVVNuycL4 i0QkPXNivLzof3qeQzLxkD e2psC3zK6xGRgxOYXbu8Gh dHRlIEIxLlxwYXIgDQpccG WfSY5OH3esVRKjc2ikRX68 QOolFSOcTScaeZcshZ9oPF ZuT56le3EPm6QcPYIxHQln h0ojnHqwz9BrgSLfGSihDO AusMXgMRzquN3bIiJxb1cs wJt6WThuigP8RCWwlt8KEf youS2jWbCcg5mbfHy1MHSG TtvbbvS8v7qnsTrtk2LkqF MrZV5GKp4= MICROSCOPIC DESCRIPTION l1ajwTVqVXTwxPF1BcGvEO (test code = 3371) Ivn0axf0HxzPZpzVRsEXdx kKEqswQqhp08jXB9bH66YR 0kXMWoZwO3NLJwtyR2Xou5 PLRdYGJfoVWoP557f1qvo5 skceVkiKP1bCphMDZgomtl UdQ5HZsnAXElmsqoXKs8ZU kmQCPkcEV9PJRfdFTjI6Er OEGsRY1feth7IAB6BZxiTE RlYuV9SOEskQZiITDrbAmu RKvwy447WEK5XcSgPTCcyr WehDjfxU7iDxGcBAEYMTUu e3JoEBMnOBVtss3= Gross assessment was [facility] performed at ([facility], = 2777) Department of Pathology, [address] [place] [address], Technical component was [facility] performed at ([facility], = 2778) Department of Pathology, [address] [place] [address], Professional component [facility] was performed at ([facility], code = 2779) Department of Pathology, [address] [place] [address], [facility] [id number] 18:40:02 Test Item Value Reference Range Interpretation Comments Case Report (test code Surgical Pathology = 104) Report Case: [id number] Authorizing Provider: Trina Perez MD Collected: 03/08/2022 09:24 AM Ordering Location: [facility] Received: 03/08/2022 02:08 PM SERVICES Pathologist: Pinky Kumar MD Specimens: A) - Biopsy, Gastric, Bx B) - Polyp, Colon - Transverse, cold snare DIAGNOSIS (test code = [id number] 3220) FuZzEwMzNcZnRuYmpcdWMx IHtccnRmMVxlcGljOTYwMl qvloXgOOQdvNYfJ9Xfrlmp CTzxAV2gLX1arOrjxGWwgW SfVQCmBbMmk9wnp906pGUt c0lqSDXIuagqxIh8lMnjK2 6cf0Q6IoziJ28nqPMnFZW5 NTFjQSJuhPGoBHKsTMS0DD XhuCChS7jjUZEjMH1ugbqy VUipWZriXQPcgGE1NMDbzL ZjI1HoKBVsLPwjSOUbmck2 KoUvSi4djZSbwBkuPDiuWS MhOCYuOEarUUChXmFbIV1a K6DJEAJZTDOMZS0SR9exiO PpZW3bANQVSABWTczWTKaU ONCHTIXBIWiGQ1KZVHXZEy hqPKsNXMmkNNExXDWfDE6J IElOVEVTVElOQUwgTUVUQV FPJNKXAXxeYLcQTAeUZ3nR HT1GDEFCXkQSPm2HPKLDIL VOVElGSUVEXHBhciAtICAg Hc1yWOGUJFHTCySXPRZPEI KUSK2DLRDHSNeAZL3RT2OK SVNNUyBJREVOVElGSUVEIE 6IVVBQPBNCSuHnQ5UWWD3w kCQmSGJzwuHVToXUU6fSQr lmBQCUUoWFYTUJZLRUV4jV KoRFD6qQMOujWK4OBOPDV0 HZYFatsTSyRE7kLNBAD8dL ZI5UIWXOWNJDE0BJUFWYQK sUTF2HNBcZCAmhBq8hCMjM J62XV7HEJmVQHFAZJ46MQJ 9VUyBPUiBIWVBFUlBMQVNU HTXvX3gYYjgFB4rpGVYuXF PuGM71nRIpyOcnRVjyxtZo gsP4PDGeDID7UO2ayaYpAP JqgIItjRsoyuVcQIbkm0Su WAvnGYVgAH4sxAjlQOSlUG 3tYYSiU4uwpY0qrxz3OyLr ISFeYmR4JDXmmqO9Zwu0HN GdWXnsk8dwg0IqDUAsKSw1 mTusUnIbRLGpq0cflkGdDh XkJIWyZKYcUCMfuAVhB548 c2uyd7jprkNeaRV7SWJjMY F5ZPwuhsStvoM1ETskyBEk OrK2XRqyecByMEeenoHpic OzTjr5ZGQlH870PTR1fRqf c5pfATA3QKRqNZKjNmGmUw 8paSYkF867UPUgTKDAIGTs kNq5UWEhiiXqwpQkkSBZo2 36B947g8jrZYDeifNdsQrC sfzyo4rlF148IOTkaPQjms QwJiEuWPAxbJXpwGP2DNVn PB7kivfnSHfrPGjxLAEwjp E8HCLvyEMdZ7LaLUQkWK6x fphuMQZ0SDwmKPBbNXC5Mc GuCKCuy2Vrlnk0GhQfwy0t zm78VMF1j0OjkIvuEWD5TG T1YiEqBw0gyMNxQYGpOL7u ZsGgpGMoAJJltr33zKgsWV auRFN8OYKxjsWbe6Zfr7yt EpTdefNvN4beK5FaRTEpDK QtTCAkVxEniaWwr6Sbl9Uo xVFvxSj4z8yvGALwLKKfiO pan8zxSNU0MXNcyOQeG2ql hI1pXDFmHC6wijzmw4ogNV lbJUhzUWIcxZK2ihR6DRHj gDElW5FuiY5xIFScEFugRA Jjkfm4RaUxPy3emFZawWcc MFxzYmtwYWdlXHBnbmNvbn RccGduZGVjXHBsYWluXHBs YWluXGYwXGZzMjRccWxcbG FuZzEwMzNcaGljaFxmMVxk RhCvGEZzKQoaK1nnMhGtAr LtWhf2HBTpyIXrUGJyAnn6 EARudBTjAITPjRkuoT4hMS FsgJkbsH8hiXE6MMLadwAj qAFLvL6iMUKIbP8pHpG3Ek MlQiP1FNp6VsAhuGSnjL9= CPT Code(s) (test code g4uioNMoWINimQD9YsWcOO = 3357) Duj1lry1LcgSKxoTPbWWcw vFRlaiBbyy42aBB7jA81MT 5eGDIiGsD8FMMfztR6Uab9 VZJwDTXfoAHfD432s0pot2 gbndJkhLY9oDqsRVWatblg IfI1GMplYJHdwrtbYPi7ZM wnSUEvgXH5GMHzaCXjP7Fk RNExKR0hmfu3NHI2UTvrMD HgPbJ6CZNfiACqCUFasXto FZjxt913RKY1WzJvXDVgnn DpiSaycH8uAsPzQEH8JHAl NSBYIDJccGFyfQ== CLINICAL HISTORY (test w4ivkZSvSYRluJQ6JzNgSG code = 3356) Ekr9wqk7ApzYZriTGuGXqt eWDdxvJpho05qQX5aD71SF 6aOWHvNvK4DYZogpW0Mqc9 JNXdZPCmrPEzC075s0tkm2 akoqAobHT8XKEbQWAqZ0Xt FT8eAURplLMmT17dkHWiTQ A0VBNkYAWhjGZbFEIjEEI9 TDZuxORnF8gqWQZySU0xwk slJDyfVGsuHETkuWE3XOMw lZGvG1UdKNFpJCphFLFtmc c2TgPjFv6oqQRocFgiQYzt YXJkXHJpMVxwbGFpblxmcz GfZAQvROPAs44jeZZcJTMu DDAuimizYBDkx9o3wY01cN ErlXRiRVpmCyhjvN4qvPMj vQVjFSUuYQVdrQtcF5OmpA I4PLOvW7SiFGW3yJByMDXt pjXZdHKilV0mqGSvk7FbpZ e9JQFva4o1aN12zJJjg4Nu rZJrIKT1ufBpOWOvAmrwHD VgINDwuJluNUVphpLvl0Ds aeD8kSMrREqeVNLhX5WhCQ GxKJTtmvWmp7vrajCzUG3r ZXJccGFyfQ== SPECIMEN SOURCE (test x9lktYGcDTJfbPJ0JfLuWH code = 3377) Wdx2wiw8KjrESeaIDiQUob aYXoooWqon36yQI9qR95QN 3xYDDrGbU9ZELjldQ3Rpq3 AEZsVPHwkOEpY262t9ycs1 hftlOvxUR2oDqwGSQfomen DgM6UAicHCTjrhidSEx8HQ evLNWmiEP8ZECesMYvZ5Pz ZANbOL8nnfu2LVS0KFlkPP FaWkO0NMLjmPGsPRGrjDrx YRjcy994SGY7TcYdERLgkg TcxQsscF0hWfQnQHNWHgHb DyfniFY4BGZbZKO7cphrQQ ijsuTxOa0oKRCfuLbdRLGo g4ysrcqxvBDjwxV3FHVvJF xwYXJ9 GROSS DESCRIPTION (test e8fspXNuSDIntJOMFTGoZ9 code = [id number]) wbgkKmAYRwgBLyH7Xyaalo CBehNI8pIN4akDpgbJBhkT MlJF6KRZFoVpRdDAXebXSk tfFfRcOcVADysGXrlCP5AY QkRV6wvjkpSOfmUWwnHNHg wzU3WVAzdHMeM5YaAEFgKI 0dkeyvBWS5ZLqrnF0juhLK WwmgHc2ofPNxjTsePfQdSz NoYXJzZXQwXGZuaWwgQXJp DQt9iP9CAagjFHC7SLVUOd nkZHQkCY0Th5ipSWJmaRQg EWH4BTljwBMwLVSjKVMySZ y6AXXwNFlmjLDmDI8qxKrp LzescCdux8NkoKPvODivYW DvBCCeSGkzSJOdMI6CDqBq XFP7PoB7KDIlKCr0TUl9XU 9WUyAiICAzMDAzOTQxMSIg UWw9JYusCI2IMJMyHEOqTM Z4NhU3OYA4QRXvUMCjXxCj XGYgQXJpYWwgXFxmbCBcXG 9ecWroaRMmhtIJDrVVxE3f n5bwWIijw0MmdVBwWJXqqb ANClxlcGljTmVzdERvYzEg DQpcbHRycGFyXGxpbjBccm luMCANClxsdHJjaFxmczIw GORhEQHejNMwjI1nldGwsf QhWQEpoBQkMWMivzCtx7Vj TTxpdqKiCZUyvKicHUI2dI UtOLUyHIHmNMTgOJ22QOdG NHMgbmFtZSwgbWVkaWNhbC ByZWNvcmQgbnVtYmVyIGFu MQKrK6UcxAUsPfEbmR8bh9 mhUVDgMQVkp73lyTJ5ozYp BjW7KKGqkh1zbF5lWG11B3 6gUC3ea0ZagqYrUFFtr8P5 ZSBmcmFnbWVudHMgKGZyb2 4kDS8hOPQgHWHqZGRdQsDu bSBpbiBncmVhdGVzdCBkaW 4gzjYsd09mWvFWxJRqz0Tv K0qdIN3mfQHyb4IoqBy4nR LhMLxiIEWbjZ2vSx7yhJ58 gG9dHKFoaKSaIXWtt00paB 4pB9Bgj7U9uIQuYHRhVGGs ciANClxwYXIgDQpLTCAocm VzaWRlbnQpXHBhciANClxw bGFpblxlcGljTmVzdERvYz AtyFabhP29ZWRqbDEdKHX0 ZA5xJCUksppyFOOzUZWsXH Q5VDasaM34hFFcOJRxUCKf hCAqsY0Wi3ydFBLocOKxQG G7XEnzwDSnHTVmUEQzMTpa WgPiV4GTQFRiGju5ERd2Lm QxWTy8YBzpZ9IEQNCzKREb XDD6TCYfSzY7CKd2JYJFEn 5gZoMiFhF1KQS5NCE9TWsv IFxcdCAyIFxcZiBBcmlhbC BgHYQfMAtddqJ4WIRuFADp sSrsdX1uQi7rWU2rrGUkHC NvsN1bPB2kILSoicW0AQZv IN8zsXAzMK9RWGXevJZFXZ Q7VT8lUMYBYmhwaAJrZOSi tKfnYIdapV9vNM7VYFg1km NoXGZzMjAgVGhlIHNwZWNp pNQyAEceWTRaP9OyzsMpJI ntZMEnyt0wvMrfTIftLrEe bGVkIHdpdGggdGhlIHBhdG xhmoBnV1P9xhBgUS7sSRPt CZViQ7KyNZIyG75jWTKqbB 0nZBJkIW3hFJQ6ldRup0Yn cnNlIHBvbHlwIiBhbmQgY2 6yk5ohiPUqp1BxLFB1FO6o vRxgesUfcODwc3GqR204IM HjUUO9qULrhGUkQqXtF31u apXyWXydLjOnW36unQ7mZ0 VcDNBba7QwCIcoYB3kcT7q ED5uJUzeZADfCIVwxLOiUD ztJHH2Nc6aaQAqPVZnwbB1 l9TjBMLzcExtm4xcZhGsuU f0ioR4zW6dCZczNPJdx5Fw dHRlIEIxLlxwYXIgDQpccG DuYG9MF3jlZCCfr5qwXS56 COvoLXMwWYmnnCfogD9pHM KgE80oz0RGc4QwVXSbTDit l5rekZeqx2JuqAFwTVejGY BsxCPgRDmpkJ1zQjXyj7sx mAe5DWkmusW0QGGiqp3PXx dlaY7pOaEmu1yruFt6YPSP ZcvfqpG7o0idzIdak3SrkO OdMA4ZGo5= MICROSCOPIC DESCRIPTION i0sbzJEdRNWiyZV0XzZjJI (test code = 3371) Pht8chh2HleYApbCOaPTxl eGLkxvSyay31kIH5bJ26SN 4qVZAcLkB3UFOouvZ8Tfa1 ALTvUDHkgOHiI745a8kvh6 mjoyRbiGJ4mMylWHPhnmpx UwP3UHlxXGXxxipfYXi5AT tlGREpmVT7XJRiqIDbS1Om HLGdTD3sevh5NVQ6NOluZV VnTdF9KYXqmJLmUAMciEyk KHsib997KJM5UhFhOZOspw HcjDyknC2cTbDgLFXAHRIv e6MrJNUkTCJkya9= Gross assessment was [facility] performed at (test code [facility], = 2777) Department of Pathology, [address] [place] [address], Technical component was [facility] performed at (test code [facility], = 2778) Department of Pathology, [address] [place] [address], Professional component [facility] was performed at ([facility], code = 2779) Department of Pathology, [address] [place] [address], [facility] [id number] 18:40:02 Test Item Value Reference Range Interpretation Comments Case Report (test code Surgical Pathology = 104) Report Case: [id number] Authorizing Provider: Trina Perez MD Collected: 03/08/2022 09:24 AM Ordering Location: [facility] Received: 03/08/2022 02:08 PM SERVICES Pathologist: Pinky Kumar MD Specimens: A) - Biopsy, Gastric, Bx B) - Polyp, Colon - Transverse, cold snare DIAGNOSIS (test code = [id number] 3220) FuZzEwMzNcZnRuYmpcdWMx IHtccnRmMVxlcGljOTYwMl meyzQuRJIxkYIsL2Lcuijn PRxpPZ4jYK1qmRzzcDQyzE WlRVGtKjFtz4vnw900yCVu a3ptQNEXoxjtsMp2aRadM9 3ls6D9GbiyE54lhAFiHFQ9 DCAeYNJhaYNzXZViYLH6ZO AknPPtX3hgQYMiRW0xvgen ASohFDxfDCRkqAZ7YDGgiF JfO3GyZUIwSOchNBRjuub3 LtQoKl4xyZJfdNndMYkjKH TwZGYrZIbnQOHfNdBhCV2b V4UEWRLOAKVBLC3QN5wgxQ WpZR9vEEKDRWMZVtaAARzD LAYRFMQYXHtDQ1MDRCTWSh lzWFeKAXbdSVReELVdPK6O IElOVEVTVElOQUwgTUVUQV OUGDXFSZkgXJeLHPoRF0iO AH0PLSECRhKHCi6PGVUBUA VOVElGSUVEXHBhciAtICAg Ir4xPSFDCZVEOyHTHKJSBO XQNK9ERDROWXfCDN9OF4JW SVNNUyBJREVOVElGSUVEIE 4BRDOTNOYQImJrK7PUWN4y kKNtPHDpixKLYoLJK2hBNm zyQGHOFhCHNTPWTXHEB1qX TlPIM9jZPAifQX7CIKTWB2 ZDEQbipEYhNV9fQWNKY0iD WQ5TINDQGRLEQ8ZCQJYAYI qQQI7AGMnITOyqDl8fAEmV L77DH2OBQoXXOKAXS98CPB 9VUyBPUiBIWVBFUlBMQVNU UMGyN8bAJhcJY9jbPWJsZQ MyLF42eLPdwDmiPMpborJd xtW3SYIcGOR8IF7yjmBoFP HxgTXtsUogfrJmJWvmp1Tx GNulWBGbVY2qrZcdMTPjTD 9eQKIfV7gxfS0lzxq5GqDa CIKmSjN8FDJldzQ7Glu6DY DqDEmed0nsi7TtISWjJZi7 oQjsHgWyJQIbo3yfwfZxIc InTPBgIHJxAZMwtOXgZ554 w4mto7yyuhJcsGP8IUCmQS W9OAijniYcddK8SWisyLHe HkU7UOjxfpDmUXyizrCqze JaSby7MXSpM399TYB0yRcl z3qmQJY1WDMpVIXwKiMdRb 8neFKwR393XDRaLECOVMWy yJx6CANsruKbthMdaYQOh5 03W622k5ryHVAukcZlpHeQ ksbfc3paU087CXLqnUOdzn HwTfYxGLVfkSCxfVL2ZVNy WY1xqucoHLiwGOfrGOVsew S5OLKraMXlZ4PhXYAiDK2e jrqiNNH4UFuwJZJbMZD3Ug NwGDJmt6Dozkh0YvUbpk3i yq75IHX9n7SnqRgjKAT0AJ O2NmFeGw1ymLBeHHJtNY8t LdWgvAWpJLKjfp57rOzmAR miUTH3PREdtsHjp1Cgr5lf TeCfysFlE3daS1UhWYHnRZ DdCNUdYcXkyyNeo7Via4Bj zXTahGd5v0hvPHUuLZGktA rps3glFTS3XBItlOSvQ4tt dZ1vELEwSD9uczcif7ziLX bfVZvtLLQdrEB1kxZ6DNUt mCGwR6NevG8nUQWtSJedUL Hogbh5TnIkOu4nuGTazOqf MFxzYmtwYWdlXHBnbmNvbn RccGduZGVjXHBsYWluXHBs YWluXGYwXGZzMjRccWxcbG FuZzEwMzNcaGljaFxmMVxk EaBuKHPpZWufM2kpVmPoZi KpHxa1AQTkzVTeURRhEnm7 XJHqgCZlINKIkHbflG7cJM ImxYmprU0sxGX5ZUIfbxTx iDLJzH7eTSLLzA3bVeP1Sn VqTwO6MPz4MdKqaOTlkR4= CPT Code(s) (test code b1vbyUVpSJTrxCO9IkZhHQ = 3357) Spi4pqt7QvkYGasIMfSNlq aAXjvhIjtb44oMJ1oC67RN 5aISLqSyV2MIGtnnA3Umq8 QWJfDLNzaPPrO314b7lhe5 fxzhQkyXC7gPkvBIEkicpw UqW5RJitKSWorjehKKp5OA hfOQZmuII8LJOaiVCuA6Qg WIRcHC3rjfl1FTJ0NQnsKB PgHaQ5WALwvRYrUTWeeHqi DWzof102OUV3YfBqIIFaec VeiHghvK6yBcElZVX5CXOv NSBYIDJccGFyfQ== CLINICAL HISTORY (test e9kjaYJgADSyrMD0CvYcJV code = 3356) Iii3kjf3RpgDGcfQXaFDga dXZziaUvzb35sLJ4tQ93NV 9oRLNqHzU9SRWvotO4Bxl7 BQKkOGWwlFRwV922m1eau3 nljvLeeZC1LBJnCVOjB2Gs GR9mSGWayFQkR03hhAYuNO Z6FHRrHVCvwSZzVLKsHGX2 XWHukORuX5biOFGsCC7pvi nsPKjaIIzmXHHbdZB6NLFg jINdF4VfSJUlONwyPSBbpl m6KwQvWd2uvODiaPdhCTjv YXJkXHJpMVxwbGFpblxmcz ErHOYoBCIOw72tdXIvNXVf DCHgbfwiXKVeo0y9yJ92nE DzlIIwVJplEyeqvO2vzSTq tNTmXHGuVXTfmKjhP2UozW Q4CUKkN6XfZYP9rOZtEAUw hjRKxDLrxV6qmQBms5WlfW i2GYFdy8b3uF30nIIwx4Yh pTXtPYN4shEkSIAvNdbwNE GtGPYvuTuvZWWeggJcm5Bf djZ1pEVdLMszEAIiU6CcFZ TfDIXfmaTiz7kiygRbZM1u ZXJccGFyfQ== SPECIMEN SOURCE (test b7zphLWlIBZpcND3UbQsQM code = 3377) Ysm9klh5CehGGkqODzJCtg dPJfgxVssf87tOA0wC26IX 2uMHCmInU3UDPtdoZ0Rzl1 HKQyYROeeOVzH269b5kxz4 lhibZjkHT4tLryXMQhikoy EkX5USxyTGUgwathFIc0BM hxHLPuzFF7XWIwnXIkS8Zd HEFfQZ6hbfs2ZOF3AXyjIA SwIdK2BAZicGGwLENodMdm BSmoh526KTB5TnJgOTFxuy RoaJgikA8tJkOyPCBHIfJj LjaeyMO9RBTnVJC2vjvnON hxnjVcBr5pUBCdgMvpAGKn p3czhtjzkPCygfH8EEMnCG xwYXJ9 GROSS DESCRIPTION (test e4aapMBeKKPvlWWGHUTbR2 code = [id number]) khavPgMELrgWCaX9Pregle FZnqQB2rXJ6tjGegcHRxkM EcAS3OZMXxOyKwYJAdwQJl xtRtPjPiSHPxrOSybCK5OP VzJB6mgrbsFBbdBYmuEPSj tiS4GPZinRIeB7XgHXWpZL 8cenizGVN0GRfneU1ivuWO IgwaNl3zzHBwpNqrFyAmUp NoYXJzZXQwXGZuaWwgQXJp TTu9cG3BRcylZKH7XGTXQy ewNMJuLE9Kk5weJGXbkSOi YIC2JJwkvRBcMQXtFQQqRP a4TQKbCWsesKLqOI7drDxw ClmbkOxgh1VdsKJeYGrgND DhGNCkBQdfLWKpHW6KHiFj FRJ3KtM4PWUbSOw3BXx0XT 9WUyAiICAzMDAzOTQxMSIg YVt1CFezWQ2FQPUkDYBcSO L8BjA9JHU7RRSjAYBsDdBy XGYgQXJpYWwgXFxmbCBcXG 4izYlavOZnyhDXAvPBzK7t w5lwWQhhz0BckSHwOHFrdt ANClxlcGljTmVzdERvYzEg DQpcbHRycGFyXGxpbjBccm luMCANClxsdHJjaFxmczIw MPJtYVOyxILaiT4ibhLojg WfEHWhqGOhZIDmjuQbt6Fp KVamadPkSWMiaRjtHAJ7rR HuYQSmEPQkCZVnHA93JJiT NHMgbmFtZSwgbWVkaWNhbC ByZWNvcmQgbnVtYmVyIGFu VNDeP0PhcCAzTaMnaF7gb5 hdRKHuMDIav26dgOW6anRt OeQ0JXGevm9zdK9gOB38M0 8fDO2kv5FkpaGyVXRdi4U4 ZSBmcmFnbWVudHMgKGZyb2 6oIN9eZBKjFZOeSFSiLbTc bSBpbiBncmVhdGVzdCBkaW 5viwTov76yCkBEgPYgo9Zo W9lmOW2vhUYim0GjqHa9uM HeOAffNUVvmS1uCv1alY67 aB8iLQIdqIOgOPLxh71klA 6fM5Bcp2Y1eGErYHSuWFLk ciANClxwYXIgDQpLTCAocm VzaWRlbnQpXHBhciANClxw bGFpblxlcGljTmVzdERvYz LqxFtafR23EBWmwAQnDGY5 AL2oWBYanxhaLSYrNQUfSJ R1TMucxW72wVScJBRlRNIu tCQyuB6Ni1esETMrkUTvJJ E8LDjpnEIyTONsNGGbJZkl AhSmM0DQHGHvCxn7QJz6Uh MrQZz9OZvpO1JKGHBnEFZf KMB8BCGaKlA6NUt1QBWUFf 0jSnBoXdI8CXS9OUN6QUbd IFxcdCAyIFxcZiBBcmlhbC IiFDUyGHfdesN7PJZjFZQp xJrspC0wRg1fKB8awDOmXL PyyL9mGL5gTIVtgxE3TKXv KE8gjPVdCZ2WVVWqcGATEI F1VW3eCBOTIodtzEJxKFOn uIvsLKjapO6jIB5DMJr4jy NoXGZzMjAgVGhlIHNwZWNp hAHjMRgwFMAmG2PrgeCkMS adCYBjbe9hiXwuELfaKiMx bGVkIHdpdGggdGhlIHBhdG rkipDyS6T7utPeWK0wHQQb NNQqH2WxVMUpN82sBTPorB 0iQNRxOK7dRST2cjLxx3Ok cnNlIHBvbHlwIiBhbmQgY2 2xj2oynLBbh5NyGIG0AJ9l hPlgcpVqjJBua6VdN326BS LfJIE0aKWqlXNlErKeH96g mqOzAThyKwLgW37nyD7hO7 ZbWYYzm5WzANnqBV8nhZ3r WO3gDBhfGKWnWWZdaNFcZV twAVA4Xj5epFTjGAKyraO7 y3SlTVRthBszu2qjDaRlxV c0qbQ4qU7uDAxbXJSjr5Lf dHRlIEIxLlxwYXIgDQpccG GzPX5ZK9dzEGGsc9izXT67 YLlyZLFgIVekyZwcgO1jUR FcQ27at9TRq0HnOIFnQVqd l2rqaNdfm5WzoMOcYPgzLN SkkZEwZVuzcZ8qZaYkw7kj pKj2RLusmuH6TRDuzf9NWn jrvU6qPoYvl9lztKz6DOUU AeiwenZ5e7evyEwur4EckC DgYT3JNo6= MICROSCOPIC DESCRIPTION y2wmgQRtAKEqrKK9RlOqWN (test code = 3371) Tnn2ijj2TekOWkvBEwLPwc tMJhocTwvr42fYY9zU91IL 4cTHEnHeY0DHWnzuS9Hxl6 HGLyMJWrkQZiJ737x4pde8 qdvlAroFI7wPfhGCZjwwyk JmO2VGrlCZTfpqsiHYi5OP lkUTOvdAA6ANGmfWAxR0Fi VLZkGF1jgex5SFK3SVwkYA KcVaL6AJMfaMVtYXQczIys PLmzv719YUK8QpAzRACjho IorJwojH5wJsBpPTIACVJx j8YtKREqODQuxk0= Gross assessment was [facility] performed at ([facility], = 2777) Department of Pathology, [address] [place] [address], Technical component was [facility] performed at ([facility], = 277) Department of Pathology, [address] [place] [address], Professional component [facility] was performed at ([facility], code = 2779) Department of Pathology, [address] [place] [address], [facility] [id number] 18:40:02 Test Item Value Reference Range Interpretation Comments Case Report (test code Surgical Pathology = 104) Report Case: [id number] Authorizing Provider: Trina Perez MD Collected: 03/08/2022 09:24 AM Ordering Location: [facility] END[facility] Received: 03/08/2022 02:08 PM SERVICES Pathologist: Pinky Kumar MD Specimens: A) - Biopsy, Gastric, Bx B) - Polyp, Colon - Transverse, cold snare DIAGNOSIS (test code = [id number] 3220) FuZzEwMzNcZnRuYmpcdWMx IHtccnRmMVxlcGljOTYwMl syklObKXSngTRbP9Cnywlx JCvtWD4iRF6cxAuncYMncB IoTLRiNwXch4ggr881bULn c7uxPFPGdtlelVk3zNpxD5 9dm4Y2ItdaI70uzLIdQYD2 VMElRYDquEEbMBMlIXF7SK JweGSeE0pcOIJeNV9vmibi QKwjWCzvFBDzqNG0MLMjcC NjK4EiXTHnKCueXCXztxa3 FlFtHn1euCLeoDyzPAoiKK BiGYQaXBzuAEUqYeWaFQ2n M7YRNBLZHUPGKZ5VU1tthA FnXJ3zFHZJINPTZzyZVHuW NIRKDNUDRFrNR1PENDUYZj ykHFbNPOqwOFSkQAWkIM2O IElOVEVTVElOQUwgTUVUQV EFHQIDKAjxRFkUUScFT1xC HP4WZMLJJdNVLy7AIMLEFQ VOVElGSUVEXHBhciAtICAg Wh8bVZFRBWYORnGDALVPYG HWCR4GRSUUDYgKGV4UP3KH SVNNUyBJREVOVElGSUVEIE 7ABUXWYTQRWgFnN3EAZZ9o bZAjLVArbtWPGbKBX3sESa stTSIZObCYAZJDARGIL7pD FiGCL9iAHUfpWC5CFFOFV3 DLTJlwiWDdUY5kJJFWE1fX KA1YMECWAFCNB7SLCWQMUC aYTP9RIIyOQWtdVs4sZAyF B36MP7KIYyXLQZSMX07RAR 9VUyBPUiBIWVBFUlBMQVNU NFVhD6dYMnjPW7lrJZTuOW PoOJ15eBAljOliHBjxpiXz iwJ7METsYES0OL5pjwGxSM BmdWKktWjzofNeCVmml9Gi XOjlXGJqUE0qcHayBJDfWA 5cVEMqB5dfjF7ljzl8UvIb YDWdXcI1FHUfgyE7Vta2QT YwEQxrh3dnm4PtLCJsJQx2 vBslDzOhMSHsu5ciakBiGi DmRIAmGHRkBRUfhOMfM950 g2cla0dvjmYaiBG6HKVsRZ J2JGyadgGceeJ4YTiyfGZu TqL8YImenpDbRCfvfyPfvn DjDtc2TLViG759JPZ3gJkj h0udJOB2MXVkYJQwAgDxHe 8iaFXrO003ZLAsCXYFQXTl bEd9CTZaghYcqiYnyIOWz4 36J535g6rrBBHrwjYbqCrD rrjxo8xwH835UBNyiGNico XgWhThAPOzrIMjoFC8OKKk MD9pganjOAarHNziJDOilw W1ESKexGTuC1AvAMRuDQ1y opeoCYK4BRieZEYyYZF4Hi XsBMFuv5Adkqm7ZnHknd7k tg90ZAZ6g8DbpZipAKT2RG U3GnFhCk7voAIzQBOlRS7l YvBubOFfNTQryb06yOwnWF liOUG9QPCjdxXaj2Byr4ta YtPonhCkU5ijP3HnBCRbIM EaWCOlPlHrosHgm5Ruh6Ws kOXguWx8u0vqGKSoQFLmuQ yzp3qoCHK1DZTduNKwX1qj tK9hMTVmPF3iqvpbo0vcBK ykKXlgCMLgbAK9jeW9HJFs bYWfR9WjvF8eVXSfMJrrNW Erags5SnKyZa7csLGvkKlf MFxzYmtwYWdlXHBnbmNvbn RccGduZGVjXHBsYWluXHBs YWluXGYwXGZzMjRccWxcbG FuZzEwMzNcaGljaFxmMVxk SiJbSGEvJKcwA7zvTxWsJa SzBwj6JUUbkTDmMBOiMut3 DRJpxVImADUBfWsibP1rUM YbtZupkY3rxCC5WIWhlqQe lVNMdM9uXSFKyT1cVnY7Rj CjOrQ2KHs1SvNzbXOieV6= CPT Code(s) (test code r2qsrSPoGEQjqDF1RhPdTW = 3357) Wlv9pfp9ItsBHwxXSzMEav aEEwzvGbrb20wXT2qN29SS 3tPVBpKkI6GKDwqvJ0Znl9 DTBoOLWxnNAfA524d8qjb1 pcdvNkbIH7aAftHHJfwwqp DsY7TDaeSBKlppvwZGt6CN nxPKGfyHI5LKZvtFAhH7Ho IIMhBR3qcja8YHN0KRucHP BpTrO8KLQrnVZwCQYvvWmy CPeeu427KZI6HoUlOJGpia ZksHdfsD3wWoKpHPN9NDYw NSBYIDJccGFyfQ== CLINICAL HISTORY (test c7lfrOVaGTIjyXN9UjAmSE code = 3356) Psw2qma2SxnUXmyXQsEYxn mMNfvsGvou81kDQ1tS61RL 5rEXFiPdQ5PKVlshB8Ilj7 DTPkPGPyjIYbE299h9cvd3 ouvgKffJG2ROOhBOOoZ7Pl FX4mDIBpbEXgU61lbEJzUC Z2NLOyLPWftEIoNQZcLNF0 SBZawSDiI5nyEPHmZE6clx bcPGssIQjcFFTmsTK2GPVd aZXkG1HqWLFyJDohWYJuei e0DxHdJj9efSXlrPxwZKxo YXJkXHJpMVxwbGFpblxmcz SyTFPcQMWPr88cdQPaGCHi KPUvxoicUYXxe4n9xE90cD LhbTMcKZeiDogbmJ8dxXSe kUNhAGWjQVEdiKhwJ2NowJ G3FCYeW7KhIPA1oJNeTYJe gcHBoQTaeN8vyAJec7ThvK m2ZZDql9u1sD32tJMkx0Ji gYDbLCE7wkLkBCLjIrdiUH GoGPUgbDomWMExyyJay7Pd xdI4qJBeWIxyOTYtQ7EmSA TeNBIytzIeb8fmvmOiEZ6n ZXJccGFyfQ== SPECIMEN SOURCE (test r9hdkFSfLIYoaKC9SxGiFF code = 3377) Wvl9ykg6XxvQYpdFEkMSjp zQHmteVydx00kAB5cD34VC 0sVRGkSbW8NLYsfxE3Tkb1 WCDnKWErsAMwX488u2zbl5 jktaLagOC4sUdvHDWytxfb SqT1AUxxXZQuvpztJVc0TS ejGOEttFF9PLSgpBTbK7Qp ATApFY6oyig6YFQ5RVjuRT AhFaT4NKKlhCPdBJMnnSql AOqae961CGM4IoPfMLHjjm TnoHotfO3lPiLdDFXXHsWp RshndSI7JGIyZMA6iktbRX cydjZiZr4bSGOkzDenFLZh z7moekgcjGAndyZ2EWGoQF xwYXJ9 GROSS DESCRIPTION (test p0xupCEkMPWbvUVAHTAbM4 code = [id number]) htmrMeSKIszZKwH6Oshlsj GYupBB2wPE1tsFbalJSyvS JuGX9SOMTrRnZgVEJyoQEy mnNaOkVvFQMbbGJnbJC2TG GlHY2pqzczMIalEVqwAAYb jwN9GSZkjLJkA1LrQTMjHC 1ossecPUK2SOinxT3wkoLX NpgzWu7nyGDncGnbOjBrOc NoYXJzZXQwXGZuaWwgQXJp MGb6sB9HXjykWWJ1MKOCMk ctTJNeUS2Ie7mmNHTjbQMe OZR3DJeyeYJdEEWyTMHyVG k2HTDtRVvdlWFrKM0udDdo NpqnyFynj3UtrIQuETtgFN SuVGQmHHcmIWGhOS1FXkJz CDQ9ImB3QSZpSKt2UTb8JB 9WUyAiICAzMDAzOTQxMSIg NLd1TTnsIB1YQPOrGQLuCA O5IgJ6EOC0JJSmMZPcGlIr XGYgQXJpYWwgXFxmbCBcXG 2ucWssbECjzvFAPuHKoF8v m7rjCJarc0XfxRJhOCYgfc ANClxlcGljTmVzdERvYzEg DQpcbHRycGFyXGxpbjBccm luMCANClxsdHJjaFxmczIw YNCuSTHzvAGerH1azeAubq RnNTMbwDXuMWLtrcBel6Ag DIosgdOmHQArqMnuZAI3pC WoJQVwOZWjDPFgOW21SSfR NHMgbmFtZSwgbWVkaWNhbC ByZWNvcmQgbnVtYmVyIGFu YHIsT7HrwBIwUpZubF8lx0 diONPmIPSot39woYG9tnAj SuA4LINgqa9zjO5yCP24Q3 0mIN6sf2LttrNiQNDjp9D2 ZSBmcmFnbWVudHMgKGZyb2 4rXN3nPHEwELUuSYRcBsWw bSBpbiBncmVhdGVzdCBkaW 5urjCmq27dEaFGcLZaw9Ys M6efZP1wfKTkb2EgdPs7cQ PkRIveHUZxnT4aZl3lyN24 dY3zHUZptBSmQBNvr20rgZ 9nI3Lbt6V3qJXrKYVkZBSe ciANClxwYXIgDQpLTCAocm VzaWRlbnQpXHBhciANClxw bGFpblxlcGljTmVzdERvYz BlyCnfkQ65BNVepRDmFEM0 LP3iIZKwxcvaYRDsJPZwSU G7ZEaruH68cKPzWCCmRJOo bXGgwI8Wz2lvWDAdbHPzRU A0FWqbmZWaSHVmUCGsAPpr ZkRfB4RXEHCjFiz4EPp3Nw RuYEs2KIsyX9LJMHFsSXWq FZV3OKJxIhF8QKe5JVXKVc 7tGxHyZrL8SZK0JLL8UKcm IFxcdCAyIFxcZiBBcmlhbC RiTUZbTPufxlB1JPQpGGDs wZcecU2sEs8bZK7rbWQgHU XoaO4eXK7sTORagmV7SWMr IO3ejZEfIP9OSIPxxMGOER A6JQ5kUFRMSfxnkOYoNBVm tUnfMBylvV1wYJ0KHDg5ef NoXGZzMjAgVGhlIHNwZWNp jJBxEOfxYTPdT7ObetRwQY mhFDWtrr6rtXhgPRysNyCs bGVkIHdpdGggdGhlIHBhdG uksdLvZ6K9wpSjSR7mJEYe CYVuC6RxDXXcV95oHHSedB 4jQUBwGX4vPPX3iiUwa4Fq cnNlIHBvbHlwIiBhbmQgY2 6wh1zdcEKdq7DfBBO1CV2j tAphbpQfuCLfa6BkK537DK BaBBT9zKWtcFNiMqKoX66x odWmZXfvXtWiA71yfP3tY7 QnPVAnq8VyNIkxHA3llW7r JS2nNQrrOAYsLSGnkEWbSS bqSPZ9Le7msXBxDVFuqbE4 n3PzLOQpmVdau2kqSsGikE g9oeW6cF3vBKyuDSMlx3Xk dHRlIEIxLlxwYXIgDQpccG XzBQ8PK8tlGRHza6waVN73 XWceBBPgNEruuCzeaY3jBQ UuV73rp4MJw7FpFKGxYMvj y8vesQggz9EcpTObUYmyKC SpwBXnGLkgnT9iXaMrx2jf rSw6VQvbgjG3DCYova4NXx eupN4aMcVtw3hccUd2AGOI EzyyjgR9h8wamXwaf5ZfdN XkVK1OLr3= MICROSCOPIC DESCRIPTION s7nchMKyHAEjsAM3PiYvNJ (test code = 3371) Dpp5ktl6HjpUHtqCQdCKjl uCOvolXmlp33zMK2uJ25GV 3uAJIaHfH2RTIpltC6Dos4 MEIrLQUvuJJwS325x6ghh0 iehnRlgMB2cQmhDUDbsvev HmB7KXhuSGAyrfveSJs5XP pzHMFfvFX6YGTlqWKaM0Sn OJKqSO6jtjc0XXW7ASboUW JrPxC6EJRfxFIzNYDajZpn QIcey243VCM1DvIePWAhtn JzrZnwwJ8iHgCvBIWPVNBc p0SfHAInAKWgyj6= Gross assessment was [facility] performed at ([facility], = 2777) Department of Pathology, [address] [place] [address], Technical component was [facility] performed at ([facility], = 2778) Department of Pathology, [address] [place] [address], Professional component [facility] was performed at ([facility], code = 2779) Department of Pathology, [address] [place], [place] [address], [facility] HospitalTISSUE [id number] 18:40:02Surgical Pathology Report Case: [id number] Authorizing Provider: Trina Perez MD Collected: 03/08/2022 09:24 AM Ordering Location: [facility] Received: 03/08/2022 02:08 PM SERVICES [...] were examined Signing Pathologist Direct Phone Line: [phone] signed by Pinky Kumar MD on 03/13/2022 at 6:39 [id number] X 2Esophageal varices without bleeding, unspecified esophageal [...] in toto following filtration in cassette B1.SCOTT (resident)Performed.[facility], Department of Pathology, [address] [place] [address], [facility], [facility] of [facility]ology, [address] [place] [address], [facility], Department of Pathology, [address] [place] [address], HMX-Glucose [id number] 09:27:26 Test Item Value Reference Range Interpretation Comments POC-Glucose Meter (test 87 mg/dL 70-110 : TE STED AT [facility] code = 1538) [address] [facility] 7 7030: Leacher/Techni cheyenne ID = [id number] for BARRETT, ANGELIC L Lab Interpretation (test Normal code = 33290-7) [facility]-Glucose [id number] 09:27:26 Test Item Value Reference Range Interpretation Comments POC-Glucose Meter (test 87 mg/dL 70-110 : TE STED AT [facility] code = 1538) [facility]0 [facility] 7 7030: Leacher/Techni cheyenne ID = [id number] for BARRETT, ANGELIC L Lab Interpretation (test Normal code = 54502-0) [facility]-Glucose [id number] 09:27:26 Test Item Value Reference Range Interpretation Comments POC-Glucose Meter (test 87 mg/dL 70-110 : TE STED AT [facility] code = 1538) [address] [place] [address] 30: Leacher/Techni cheyenne ID = [id number] for BARRETT, ANGELIC L Lab Interpretation (test Normal code = 96802-6) [facility]-Glucose [id number] 09:27:26 Test Item Value Reference Range Interpretation Comments POC-Glucose Meter (test 87 mg/dL 70-110 : TE STED AT [facility] code = 1538) [address] [place] [address] 7 30: Leacher/Techni cheyenne ID = [id number] for BARRETT, ANGELIC L Lab Interpretation (test Normal code = 75584-0) [facility]-Glucose [id number] 09:27:26 Test Item Value Reference Range Interpretation Comments POC-Glucose Meter (test 87 mg/dL 70-110 : TE STED AT [facility] code = 1538) [address] [place] [address] 7 7030: Leacher/Techni cheyenne ID = [id number] for BARRETT, ANGELIC L Lab Interpretation (test Normal code = 55014-0) [facility]-Glucose [id number] 09:27:26 Test Item Value Reference Range Interpretation Comments POC-Glucose Meter (test 87 mg/dL 70-110 : TE STED AT [facility] code = 1538) [address] [place] [address] 7 7030: Leacher/Techni cheyenne ID = [id number] for ANGELIC BARRETT Lab Interpretation (test Normal code = 99726-6) [facility] [id number] 09:27:26 Test Item Value Reference Range Interpretation Comments POC-Glucose Meter (test 87 mg/dL 70-110 : TE STED AT [facility] code = 1538) [address] [facility], [place] [address]30: Leacher/Techni cheyenne ID = [id number] for ANGELIC BARRETT L Lab Interpretation (test Normal code = 68852-7) [facility] [id number] 09:27:26 Test Item Value Reference Range Interpretation Comments POC-GLUCOSE METER 87 mg/dL 70-110 : TESTED A T [facility] 7200 (BEAKER) (test code = JOHN PAULRI DGE [facility] A, 1538) [place] [address] 0: Leacher/Techni cheyenne ID = [id number] for VERONA OCONNELL GASTRIC EMPTYING STUDY, SOLID 4 [id number] 15:17:00VANG, NA LY MDReason for Exam:->abdominal distension, diabetes, assess for gastropareisis [facility] 1970 Sex: FFINAL REPORT PROCEDURE: GASTRIC EMPTYING STUDY with Solids/Consensus Standard Protocol CPT CODE: 09417 INDICATION: Abdominal distention with diabetes. PROTOCOL: 0.51 [...] the consensus standard protocol. Signed: Anibal Soto MDReport Verified Date/Time: 02/14/2022 15:17:33 HEPATITIS A ANTIBODY, [id number] 15:13:22 Test Item Value Reference Range Interpretation Comments HEPATITIS A IGG ANTIBODY (BEAKER) Reactive Nonreactive A (test code = 2797) Leacher ID - BSBASIC METABOLIC [id number] 14:51:44 Test Item Value Reference Range Interpretation [...] 697) EGFR (BEAKER) (test 81 mL/min/1.73 ESTIMA ROSAIRO GFR IS code = 1092) sq m NOT ACCURATE CREATININE CLEARANCE IN PREDICTING GLOMERULAR FILTRATION RATE . ESTIMATED GFR I S NOT APPLICABLE FOR DIALYSIS PATIEN TS. Leacher ID - BSHEPATIC FUNCTION [id number] 14:51:44 Test Item Value Reference Range Interpretation [...] (test code = 29 U/L 6-55 347) Leacher ID - BSLACTIC ACID, [id number] 14:42:21 Test Item Value Reference Range Interpretation Comments LACTATE BLOOD VENOUS 1.76 mmol/L 0.50-2.20 Specime n slightly (2) (BEAKER) (test hemolyzed code = 2872) Leacher ID - BSPROTHROMBIN TIME/[id number] 14:38:41 Test Item Value Reference Range Interpretation Comments PROTIME (BEAKER) 13.5 seconds 11.9-14.2 (test code = 759) INR (BEAKER) (test 1.05 See_Comment [Automat ed message] code = 370) The system Gyros generated this result transmitted ref erence range: <=5.90. The reference range was not used to int erpret this result as normal/abnormal . RECOMMENDED COUMADIN/WARFARIN INR THERAPY RANGESSTANDARD DOSE: 2.0 - 3.0 Includes: PROPHYLAXIS for venous thrombosis, systemic embolization; TREATMENT for venous thrombosis and/or pulmonary embolus.HIGH RISK: Target INR is 2.5-3.5 for patients with mechanical heart valves.CBC W/PLT COUNT & AUTO [id number] 14:32:38 Test Item Value Reference Range Interpretation [...] (BEAKER) (test code = 2801) MR, ABDOMEN, [id number] 15:44:00MARKGANETTE MD Please do per liver protocol Unlisted Reason for Exam - Click Yes and Enter Reason Below->Yes Unlisted Reason for Exam->cirrhosis [facility] 1970 Sex: FFINAL [...] performed by IFA method.Test performed by IFA method.[id number] 17:57:11 Test Item Value Reference Range Interpretation Comments FERRITIN (BEAKER) (test code = 45.90 ng/mL 5.00-275.00 361) Leacher ID - BSHEPATITIS B SURFACE [id number] 17:21:28 Test Item Value Reference Range Interpretation Comments HEPATITIS B SURFACE ANTIBODY < mIU/mL <8.0 (BEAKER) (test code = 647) Leacher ID - BSHEPATITIS B SURFACE [id number] 17:09:40 Test Item Value Reference Range Interpretation Comments HEPATITIS B SURFACE ANTIGEN (2) Nonreactive Nonreactive (BEAKER) (test code = 2585) Specimen is considered negative for HBsAg.ALPHA FETOPROTEIN (AFP), TUMOR MARKER 2021-12-17 17:09:40 Test Item Value Reference Range Interpretation Comments ALPHA-FETOPROTEIN (BEAKER) (test 2.3 ng/mL <10.0 code = 1094) Leacher ID - BSHEPATITIS B CORE ANTIBODY, [id number] 17:09:40 Test Item Value Reference Range Interpretation Comments HEPATITIS B CORE TOTAL ANTIBODY Nonreactive Nonreactive (BEAKER) (test code = 497) Leacher ID - BSHEPATITIS C [id number] 17:09:40 Test Item Value Reference Range Interpretation Comments HEPATITIS C ANTIBODY (BEAKER) Nonreactive Nonreactive (test code = 367) Leacher ID - BSBILIRUBIN, [id number] 16:49:19 Test Item Value Reference Range Interpretation Comments BILIRUBIN DIRECT (BEAKER) (test 0.2 mg/dL 0.1-0.5 code = 706) Leacher ID - BSCOMPREHENSIVE METABOLIC [id number] 16:49:14 Test Item Value Reference Range Interpretation [...] S NOT APPLICABLE FOR DIALYSIS PATIEN TS. Leacher ID - BSIRON, TIBC, % SAT. (WITHOUT FERRITIN)2021-12-17 16:47:34 Test Item Value Reference Range Interpretation Comments IRON (BEAKER) (test code = 547) 58.0 ug/dL 40.0-160.0 TOTAL IRON BINDING CAPACITY 311 ug/dL 250-450 (BEAKER) (test code = 769) IRON % SATURATION (2) (BEAKER) 19 % 20-55 L (test code = 2590) Leacher ID - BTEIHTC-0-[id number] 16:47:17 Test Item Value Reference Range Interpretation Comments ALPHA-1 ANTITRYPSIN (BEAKER) 184.50 mg/dL 90.00-200.00 (test code = 502) Leacher ID - BSLACTIC ACID, [id number] 16:39:11 Test Item Value Reference Range Interpretation Comments LACTATE BLOOD VENOUS 1.29 mmol/L 0.50-2.20 Specime n slightly (2) (BEAKER) (test hemolyzed code = 8956) Leacher ID - BSPROTHROMBIN [id number] 16:36:56 Test Item Value Reference Range Interpretation Comments PROTIME (BEAKER) 13.9 seconds 11.9-14.2 (test code = 759) INR (BEAKER) (test 1.09 See_Comment [Automat ed message] code = 370) The system Gyros generated this result transmitted ref erence range: <=5.90. The reference range was not used to int erpret this result as normal/abnormal . RECOMMENDED COUMADIN/WARFARIN INR THERAPY RANGESSTANDARD DOSE: 2.0 - 3.0 Includes: PROPHYLAXIS for venous thrombosis, systemic embolization; TREATMENT for venous thrombosis and/or pulmonary embolus.HIGH RISK: Target INR is 2.5-3.5 for patients with mechanical heart valves.CBC W/PLT COUNT & AUTO [id number] 16:33:51 Test Item Value Reference Range Interpretation [...] (BEAKER) (test code = 2801) STREP A [id number] 00:00:00 Test Item Value Reference Range Interpretation Comments Result (test code = 92726-8) Negative CHEM [id number] 20:32:00 Test Item Value Reference Range Interpretation Comments POC Creatinine (test code = POC 0.6 0.5-1.4 Creatinine) [facility] [id number] 20:32:00 Test Item Value Reference Range Interpretation Comments eGFR (test code = eGFR) 105 [facility], STEREOTACTIC BIOPSY, BREAST, [id number] 15:59:00Reason for Exam:->calcificationAddendum BeginsN#: [id number]: 05/14/2017 Aditya Corrales M.D. 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 Addendum EndsN#: [id number] - MM, STEREOTACTIC BIOPSY, BREAST, LEFTSTEREOTACTIC GUIDED [...] correct location, five specimens were obtained using [employer] EVIVA device. A clip was inserted into [...] the calcifications. Aditya Corrales M.D. pth/penrad:05/09/2017 11:07:57 Site Engineer: Felicia Rizzo RT(R)(M), [facility] [address] TISSUE [id number] 12:48:00Surgical Pathology Report Case: [id number] Authorizing Provider: Aditya Corrales MD Collected: 05/09/2017 1110 Ordering Location: [facility] Received: 05/09/2017 1312 Pathologist: Jackie Maradiaga MD Specimen: Breast, Left, LEFT MIDDLE 12 BREAST CALCIFICATION BREAST, LEFT, MIDDLE 12 O'CLOCK, CALCIFICATIONS, STEREOTACTIC CORE NEEDLE BIOPSY: - HYALINIZED FIBROADENOMA - COLUMNAR CELL HYPERPLASIA - COLUMNAR CELL CHANGES - MICROCALCIFICATIONS, COARSE, ASSOCIATED WITH FIBROADENOMA Signing Pathologist Direct Phone Line: [phone] signed by Jackie Maradiaga MD on 05/12/2017 at 12:48 PMIn the sections examined, no atypical hyperplasia or carcinoma is identified.54070Hvemhmfibq lesion Left middle 12 o'clock breast calcifications The specimen is received in a formalin-filled container labeled with the patient's information and labeled "left middle 12 o'clock breast calcifications" and consists of multiple yellow-white breast core biopsies ranging in length from 0.6 to 2.5 cm.Ink code: Black.The specimen is submitted entirely in A1 and A2. CG/ewPerformed.[facility], Department of Pathology, [address] [place] [address], [place] [address], Tel MM, DIGITAL, UNILATERAL, CONFER MARTA, MAMMO, LEFT INCLUDING [id number] 11:07:00Left breast calcificationsMRN#: [id number] - MM, DIGITAL, UNILATERAL, CONFER MARTA, MAMMO, [...] PLACEMENTAwait pathology results. Aditya Ferraro pth/:05/09/2017 11:07:15 Site Engineer: Felicia IRVIN (R)), [facility] Mammogram BI-RADS: Post- procedure mammogram for marker placement [id number] MM, MAMMO, SPECIMEN, RADIOGRAPH, LEFT 2017-05-09 11:06:00Reason for exam:->Left breast calcificationsMRN#: [id number] - MM, MAMMO, SPECIMEN, RADIOGRAPH, LEFTSPECIMEN LEFT BREAST: 05/09/2017Five stereotactic guided biopsy specimens were imaged for the area of calcifications located in the left breast at 12 o'clock middle depth. IMPRESSION: SPECIMENThe imaged specimens includes the calcifications. Aditya Corrales M.D. pth/:05/09/2017 11:06:40 Site Engineer: Felicia IRVIN (R)), [facility] [id number] Lumbar Spine 3 ViewsLumbar Spine 3 ViewsSARS-COV 2 AntigenSARS-COV 2 Antigen
--- NOTE | 2023-04-07 09:02 | RAD REPORT ---
EXAM DESCRIPTION: CT - Head Brain Wo Cont - 04/07/2023 8:56 am CLINICAL HISTORY: HEADACHE Headache, drowsiness COMPARISON: Head Brain Wo Cont dated 01/19/2019; HEAD BRAIN W O CONTRAST dated 04/28/2013 TECHNIQUE: All CT scans are performed using dose optimization technique as appropriate and may inclu de automated exposure control or mA/KV adjustment according to patient size. FINDINGS: No intracranial hemorrhage, hydrocephalus or extra-axial fluid collection.No areas of brai n edema or evidence of midline shift. The paranasal sinuses and mastoids are clear. The calvarium is intact. IMPRESSION: No acute intracranial abnormality.
[2023-04-07] MEDS ORDERED: METHYLPREDNISOLONE 125 MG INJ ONE (09:04)
[2023-04-07] MEDS ORDERED: KETOROLAC 30 MG/ML INJ ONE (09:04)
[2023-04-07] MEDS ORDERED: NA CHLORIDE 0.9% 1,000 ML ONE (09:04)
[2023-04-07] MEDS ORDERED: DIPHENHYDRAMINE 50 MG/ML VIAL ONE (09:04)
[2023-04-07 09:19] LABS: Absolute Lymphocytes (CBC) 1.8 K/uL (0.7-4.9); Hematocrit 42.3 % (36.0-45.0); Lymphocytes % 22.9 % (15.3-44.8); MPV 8.2 fL (7.6-11.3); Platelets 179 thou/uL (152-406); RBC Red Blood Cell Count 4.86 M/uL (3.86-4.86)
[2023-04-07] MEDS ORDERED: METOCLOPRAMIDE 10 MG/2mL INJ ONE (10:02)
[2023-04-07 10:10] LABS: Potassium 3.6 mEq/L (3.5-5.1)
--- NOTE | 2023-04-07 10:26 | EDPHYS ---
Physician Documentation [facility] Name: Dena Nance Age: 53 yrs Sex: Female : 1970 Arrival Date: 04/07/2023 Time: 08:35 Bed 7 Private MD: ED Physician Roberto Alejo HPI: 04/07 08:45 This 53 yrs old Female presents to ER via Ambulatory with complaints of jh7 Headache, Worst Ever, Facial pain-left side. 08:45 The patient complains of pain to the left ear and left eye. The patient describes the jh7 headache as constant, throbbing. Onset: The symptoms/episode began/occurred 2 week(s) ago. Associated signs and symptoms: Pertinent positives: Photophobia blurred vision, Pertinent negatives: altered mental status, dizziness, fever, neck stiffness, vision loss. Historical: - Allergies: 08:46 NKA; iw - PMHx: 08:46 cirrhosis of liver; Crohn's Disease; Colitis; Diabetes - NIDDM; Diverticulitis; fatty iw liver; gastritis; kidney failure; Pancreatitis; - PSHx: 08:46 Cholecystectomy; hysterectomy; iw - Immunization history:: Adult Immunizations unknown. - Social history:: Smoking status: unknown. ROS: 08:45 Constitutional: Negative for fever, chills, and weight loss, Neck: Negative for injury, jh7 pain, and swelling, Cardiovascular: Negative for chest pain, palpitations, and edema, Respiratory: Negative for shortness of breath, cough, wheezing, and pleuritic chest pain, Abdomen/GI: Negative for abdominal pain, nausea, vomiting, diarrhea, and constipation, Back: Negative for injury and pain, MS/Extremity: Negative for injury and deformity, Skin: Negative for injury, rash, and discoloration, 08:45 Eyes: Positive for blurry vision, photophobia, 08:45 ENT: Positive for ear pain, 08:45 Neuro: Positive for headache, Negative for altered mental status, dizziness, gait disturbance, numbness, speech changes, syncope, tingling, weakness, 08:45 All other systems are negative, Exam: 08:45 Constitutional: This is a well developed, well nourished patient who is awake, alert, jh7 and in no acute distress. Head/Face: Normocephalic, atraumatic. Eyes: Pupils equal round and reactive to light, extra-ocular motions intact. Lids and lashes normal. Conjunctiva and sclera are non-icteric and not injected. Cornea within normal limits. Periorbital areas with no swelling, redness, or edema. ENT: Nares patent. No nasal discharge, no septal abnormalities noted. Tympanic membranes are normal and external auditory canals are clear. Oropharynx with no redness, swelling, or masses, exudates, or evidence of obstruction, uvula midline. Mucous membranes moist. Neck: Trachea midline, no thyromegaly or masses palpated, and no cervical lymphadenopathy. Supple, full range of motion without nuchal rigidity, or vertebral point tenderness. No Meningismus. Cardiovascular: Regular rate and rhythm with a normal S1 and S2. No gallops, murmurs, or rubs. Normal PMI, no JVD. No pulse deficits. Respiratory: Lungs have equal breath sounds bilaterally, clear to auscultation and percussion. No rales, rhonchi or wheezes noted. No increased work of breathing, no retractions or nasal flaring. Abdomen/GI: Soft, non-tender, with normal bowel sounds. No distension or tympany. No guarding or rebound. No evidence of tenderness throughout. Back: No spinal tenderness. No costovertebral tenderness. Full range of motion. Skin: Warm, dry with normal turgor. Normal color with no rashes, no lesions, and no evidence of cellulitis. MS/ Extremity: Pulses equal, no cyanosis. Neurovascular intact. Full, normal range of motion. 08:45 Neuro: Orientation: to person, place, time \T\ situation. Mentation: is normal, Memory: is normal, Cranial nerves: grossly normal, Cerebellar function: is grossly normal, Motor: is normal, Sensation: is normal, Gait: is steady, Vital Signs: 08:47 BP 131 / 71; Pulse 84; Resp 16; Pulse Ox 95% on R/A; Weight 68.95 kg; Height 5 ft. 4 iw in. ; Pain 10/10; 09:56 BP 133 / 65; Pulse 72; Resp 16 S; Pulse Ox 99% on R/A; kc6 10:32 BP 129 / 67; Pulse 68; Resp 16; Pulse Ox 99% ; ko1 08:47 Body Mass Index 26.09 (68.95 kg, 162.56 cm) iw 08:47 Pain Scale: Adult NIH Stroke Scale Scores: 08:45 NIHSS Score: 0 7 [place] Coma Score: 08:45 Eye Response: spontaneous(4). Motor Response: obeys commands(6). Verbal Response: jh7 oriented(5). Total: 15. 10:20 Eye Response: spontaneous(4). Motor Response: obeys commands(6). Verbal Response: jh7 oriented(5). Total: 15. MDM: 08:40 Patient medically screened. [facility] 10:20 Differential diagnosis: cluster headache, cerebral vascular accident, migraine, jh7 sinusitis, tension headache. Data reviewed: vital signs, nurses notes, lab test result(s), radiologic studies, CT scan. I considered the following discharge prescriptions or medication management in the emergency department Medications were administered in the Emergency Department. See MAR. Historians other than the Patient: Daughter/Son: daughter in law. Care significantly affected by the following chronic conditions: Diabetes, Hypertension, Liver Disease. Counseling: I had a detailed discussion with the patient and/or guardian regarding the historical points, exam findings, and any diagnostic results supporting the discharge/admit diagnosis, to return to the emergency department if symptoms worsen or persist or if there are any questions or concerns that arise at home. Response to treatment: the patient's symptoms have markedly improved after treatment. 04/07 08:47 Order name: CBC with Diff; Complete Time: 09:39 [facility] 04/07 08:47 Order name: BMP; Complete Time: 10:16 [facility] 04/07 08:47 Order name: CT Head Brain wo Cont; Complete Time: 09:04 [facility] 04/07 09:29 Order name: Labs - recollect needed: green top, hemolyzed; Complete Time: 09:44 iw Administered Medications: 09:12 Drug: NS 0.9% IV 1000 ml IV at 1 bolus Per protocol; 1000 mL bolus Route: IV; Rate: 1 kc6 bolus; Site: right antecubital; 09:12 Drug: Ketorolac IVP 30 mg IVP once Route: IVP; Site: right antecubital; kc6 09:57 Follow up: Response: No adverse reaction; Pain is unchanged, physician notified 6 09:12 Drug: diphenhydrAMINE IVP 25 mg IVP once Route: IVP; Site: right antecubital; kc6 09:57 Follow up: Response: No adverse reaction kc6 09:12 Drug: MethylPrednisoLONE IVP 125 mg IVP once Route: IVP; Site: right antecubital; kc6 09:57 Follow up: Response: No adverse reaction kc6 09:54 Drug: metoCLOPramide IVP 10 mg IVP once; over 1 to 2 minutes Route: IVP; Site: right kc6 antecubital; Disposition: 10:50 Co-signature as Attending Physician, Roberto Alejo MD I reviewed the patient's care rn provided by the Advanced Practice Provider and agree with the diagnosis and treatment plan. Disposition Summary: 04/07/23 10:25 Discharge Ordered Notes: Location: Home [facility] Problem: new [facility] Symptoms: are resolved [facility] Condition: Stable [facility] Diagnosis - Migraine without aura, not intractable [facility] Followup: [facility] - With: Private Physician - When: 2 - 3 days - Reason: Recheck today's complaints Discharge Instructions: - Discharge Summary Sheet [facility] - Migraine Headache [facility] Forms: - Medication Reconciliation Form [facility] - Thank You Letter [facility] - Patient Portal Instructions [facility] - Leadership Thank You Letter [facility] NIH Stroke Scale - NIH Stroke Score Date: 04/07/2023 Time: 08:45 Total Score = 0 10. Dysarthria (speech clarity - read or repeat words) - 0(Normal) 11. Extinction and Inattention (visual/tactile/auditory/spatial/personal) - 0(No abnormality) 1a. Level of Consciousness (LOC) - 0(Alert) 1b. Level of Consciousness (LOC) (Month \T\ Age) - 0(Both) 1c. LOC Commands (Open \T\ Closes Eyes/Monitoring Tech) - 0(Both) 2. Best Gaze (Lateral Gaze Paresis) - 0(Normal) 3. Visual Field Loss - 0(No visual loss) 4. Facial Palsy - 0(Normal) 5a. Left Arm: Motor (10-second hold) - 0(No drift) 5b. Right Arm: Motor (10-second hold) - 0(No drift) 6a. Left Leg: Motor (5-second hold - always test supine) - 0(No drift) 6b. Right Leg: Motor (5-second hold - always test supine) - 0(No drift) 7. Limb Ataxia (finger/nose \T\ heel/menezes - test with eyes open) - 0(Absent) 8. Sensory Loss (pinprick arms/legs/face) - 0(Normal) 9. Best Language: Aphasia (description/naming/reading) - 0(No aphasia) Initials: jh7 Signatures: Dispatcher [employer] Agustina Wellington, RN RN Roberto Cleary MD MD rn Hadash, Jennifer, COMPLIANCE PROGRAM MANAGER COMPLIANCE PROGRAM MANAGER 7 Lynda Mcdowell RN RN kc6 Colleen Tony RN RN ko1
--- NOTE | 2023-04-07 10:26 | ER ---
Nurse's Notes [facility] Name: Dena Nance Age: 53 yrs Sex: Female : 1970 Arrival Date: 04/07/2023 Time: 08:35 Bed 7 Private MD: Diagnosis: Migraine without aura, not intractable Presentation: 04/07 08:45 Chief complaint: Patient states: headache X 2 week, left eye and ear started hurting iw today also has some blurred vision. Coronavirus screen: At this time, the client does not indicate any symptoms associated with coronavirus-19. Ebola Screen: Patient negative for fever greater than or equal to 101.5 degrees Fahrenheit, and additional compatible Ebola Virus Disease symptoms Patient denies exposure to infectious person. Patient denies travel to an Ebola-affected area in the 21 days before illness onset. No symptoms or risks identified at this time. Initial Sepsis Screen: Does the patient meet any 2 criteria? No. Patient's initial sepsis screen is negative. Does the patient have a suspected source of infection? No. Patient's initial sepsis screen is negative. Risk Assessment: Do you want to hurt yourself or someone else? Patient reports no desire to harm self or others. Onset of symptoms was March 24, 2023. 08:45 Method Of Arrival: Ambulatory iw 08:45 Acuity: MARIANA 3 iw Historical: - Allergies: 08:46 NKA; iw - PMHx: 08:46 cirrhosis of liver; Crohn's Disease; Colitis; Diabetes - NIDDM; Diverticulitis; fatty iw liver; gastritis; kidney failure; Pancreatitis; - PSHx: 08:46 Cholecystectomy; hysterectomy; iw - Immunization history:: Adult Immunizations unknown. - Social history:: Smoking status: unknown. Screenin:45 [facility] ED Fall Risk Assessment (Adult) History of falling in the last 3 months, kc6 including since admission No falls in past 3 months (0 pts) Confusion or Disorientation No (0 pts) Intoxicated or Sedated No (0 pts) Impaired Gait No (0 pts) Mobility Assist Device Used No (0 pt) Altered Elimination No (0 pt) Score/Fall Risk Level 0 - 2 = Low Risk. Abuse screen: Denies threats or abuse. Denies injuries from another. Nutritional screening: No deficits noted. Tuberculosis screening: No symptoms or risk factors identified. Assessment: 08:45 General: Appears in no apparent distress. comfortable, Behavior is calm, cooperative, kc6 appropriate for age. Pain: Complains of pain in left eye and left ear, head Quality of pain is described as dull, throbbing. Neuro: Level of Consciousness is awake, alert, obeys commands, Oriented to person, place, time, situation, Appropriate for age. Cardiovascular: Capillary refill < 3 seconds. Respiratory: Airway is patent Trachea midline Respiratory effort is even, unlabored, Respiratory pattern is regular, symmetrical. GI: No signs and/or symptoms were reported involving the gastrointestinal system. : No signs and/or symptoms were reported regarding the genitourinary system. EENT: No signs and/or symptoms were reported regarding the EENT system. Derm: No signs and/or symptoms reported regarding the dermatologic system. Skin is intact, is healthy with good turgor, Skin is pink, warm \T\ dry. Musculoskeletal: No signs and/or symptoms reported regarding the musculoskeletal system. Circulation, motion, and sensation intact. Capillary refill < 3 seconds, Range of motion: intact in all extremities. 09:45 Reassessment: Patient appears in no apparent distress at this time. No changes from kc6 previously documented assessment. Patient and/or family updated on plan of care and expected duration. Pain level reassessed. Patient is alert, oriented x 3, equal unlabored respirations, skin warm/dry/pink. Vital Signs: 08:47 BP 131 / 71; Pulse 84; Resp 16; Pulse Ox 95% on R/A; Weight 68.95 kg; Height 5 ft. 4 iw in. ; Pain 10/10; 09:56 BP 133 / 65; Pulse 72; Resp 16 S; Pulse Ox 99% on R/A; kc6 10:32 BP 129 / 67; Pulse 68; Resp 16; Pulse Ox 99% ; ko1 08:47 Body Mass Index 26.09 (68.95 kg, 162.56 cm) iw 08:47 Pain Scale: Adult iw Eladio Coma Score: 08:45 Eye Response: spontaneous(4). Motor Response: obeys commands(6). Verbal Response: jh7 oriented(5). Total: 15. 10:20 Eye Response: spontaneous(4). Motor Response: obeys commands(6). Verbal Response: jh7 oriented(5). Total: 15. NIH Stroke Scale Scores: 08:45 NIHSS Score: 0 7 ED Course: 08:39 Patient arrived in ED. im 08:40 Flavia Scott F[facility]. jh7 08:40 Roberto Alejo MD is Attending Physician. jh7 08:45 Patient has correct armband on for positive identification. Bed in low position. Call kc6 light in reach. Side rails up X 1. Adult w/ patient. Client placed on continuous cardiac and pulse oximetry monitoring. NIBP monitoring applied. 08:45 Arm band placed on. kc6 08:46 Triage completed. iw 08:49 Lynda Mcdowell, RN is Primary Nurse. kc6 08:58 CT Head Brain wo Cont In Process Unspecified. EDMS 09:12 Inserted saline lock: 22 gauge in right antecubital area, using aseptic technique. kc6 Blood collected. 10:32 No provider procedures requiring assistance completed. IV discontinued, intact, ko1 bleeding controlled, No redness/swelling at site. Pressure dressing applied. 10:32 Provided Education on: na. ko1 Administered Medications: 09:12 Drug: NS 0.9% IV 1000 ml IV at 1 bolus Per protocol; 1000 mL bolus Route: IV; Rate: 1 kc6 bolus; Site: right antecubital; 09:12 Drug: Ketorolac IVP 30 mg IVP once Route: IVP; Site: right antecubital; kc6 09:57 Follow up: Response: No adverse reaction; Pain is unchanged, physician notified kc6 09:12 Drug: diphenhydrAMINE IVP 25 mg IVP once Route: IVP; Site: right antecubital; kc6 09:57 Follow up: Response: No adverse reaction kc6 09:12 Drug: MethylPrednisoLONE IVP 125 mg IVP once Route: IVP; Site: right antecubital; kc6 09:57 Follow up: Response: No adverse reaction 6 09:54 Drug: metoCLOPramide IVP 10 mg IVP once; over 1 to 2 minutes Route: IVP; Site: right kc6 antecubital; Medication: 10:32 VIS not applicable for this client. ko1 Outcome: 10:25 Discharge ordered by . 7 10:32 Discharged to home ambulatory, with family, ko1 10:32 Condition: stable 10:32 Discharge instructions given to patient, Instructed on discharge instructions, follow up and referral plans. Demonstrated understanding of instructions, follow-up care, 10:34 Patient left the ED. ko1 NIH Stroke Scale - NIH Stroke Score Date: 04/07/2023 Time: 08:45 Total Score = 0 10. Dysarthria (speech clarity - read or repeat words) - 0(Normal) 11. Extinction and Inattention (visual/tactile/auditory/spatial/personal) - 0(No abnormality) 1a. Level of Consciousness (LOC) - 0(Alert) 1b. Level of Consciousness (LOC) (Month \T\ Age) - 0(Both) 1c. LOC Commands (Open \T\ Closes Eyes/Material Crew Supervisor) - 0(Both) 2. Best Gaze (Lateral Gaze Paresis) - 0(Normal) 3. Visual Field Loss - 0(No visual loss) 4. Facial Palsy - 0(Normal) 5a. Left Arm: Motor (10-second hold) - 0(No drift) 5b. Right Arm: Motor (10-second hold) - 0(No drift) 6a. Left Leg: Motor (5-second hold - always test supine) - 0(No drift) 6b. Right Leg: Motor (5-second hold - always test supine) - 0(No drift) 7. Limb Ataxia (finger/nose \T\ heel/menezes - test with eyes open) - 0(Absent) 8. Sensory Loss (pinprick arms/legs/face) - 0(Normal) 9. Best Language: Aphasia (description/naming/reading) - 0(No aphasia) Initials: [facility] Signatures: Dispatcher [employer] EDWY Agustina Soares RN RN Flavia Scott FNP [employer] [facility] Lynda Mcdowell RN RN kc6 Colleen Tony, SHADE RN ko1 Kayla Villanueva
[2023-04-07 10:40] VITALS: O2SAT 99
[2023-04-07 10:41] VITALS: BP 129/67
== END 2023-04-07 10:34 | disposition home or self-care (01) ==
LOC: ER 08:35
DX: G43.009 Migraine without aura, not intractable, without status migrainosus (principal)
CPT/HCPCS: 85025; 80048; 36415; 70450; 96375; 96374; 99284; J2765; J1200; J2930; J7030

== ENCOUNTER 2023-04-25 19:08 | Emergency (ER) | payer OTHER ==
--- OUTSIDE RECORDS SUMMARY | 2023-04-25 19:20 | XMS REPORT | Continuity of Care Document ---
:1970 Author Organization [facility] t Address [address] [place] [address] Care Team Providers Name Role Phone ANETTE HANEY Primary Care Physician Unavailable Delma Wills Attending Clinician Unavailable Shawna Ornelas Attending Clinician Unavailable Urvashi Boyd Attending Clinician Unavailable Anette Haney Attending Clinician Unavailable Vernell Vitale MD Attending Clinician DANIAL CHAPA Attending Clinician Unavailable ADE KUMARI Attending Clinician Unavailable Vernell Vitale Attending Clinician Harish RAMÍREZ, Angelina Alvarado Attending Clinician Essie Antonio Attending Clinician Unavailable Mnae COVARRUBIAS, Mary Leo Attending Clinician [phone] Mariano COVARRUBIAS, Trina Attending Clinician Clinton COVARRUBIAS, Yudith Mckinney Attending Clinician Unavailable Aracely COVARRUBIAS, William Garcia Attending Clinician Luís Greer Attending Clinician JAVY Attending Clinician Unavailable Ja Sommer Attending Clinician JA SOMMER Attending Clinician Unavailable ADITYA CORRALES Attending Clinician Unavailable Essie Antonio Admitting Clinician Unavailable TRINA PEREZ Admitting Clinician Unavailable JAVY Admitting Clinician Unavailable Ja Sommer Admitting Clinician JA SOMMER Admitting Clinician Unavailable Payers Payer Name Policy Type Policy Number Effective Date Expiration Date S jose manuel AMBETTER [id number] 2020 [facility] 00:00:00 PLAN Ambetter from [id number] 2018 [facility] 00:00:00 - [facility] Ambetter from [id number] 2018 Common Spi rit [facility] 00:00:00 - [facility] Ambetter from [id number] 2018 Common Spi rit [facility] 00:00:00 - [facility] Problems Condition Condition Condition Status Onset [...] pain with 00 left-sided left-sided sciatica sciatica M79.605 LT M79.605 Diagnosis Active 2022-10-23 Memoria LEG PAIN LT LEG 09-27 10:29:00 l PAIN 08:00: Anderson Active 00 09/27/2022 MH SMR [place] Other Other Disease Recurre [facility] cirrhosis cirrhosis nce 6-20 [facility] of liver of liver 00:00: Medica l 00 Center Metabolic Metabolic Disease Active [facility] syndrome syndrome 6[facility]20 [facility] Medical [facility] Center SALINAS SALINAS Disease Active [facility] (nonalcoho (nonalcoho 6-20 [facility] kes lic lic 00:00: Medical [place] 00 Ce nter kaylynis) titis) Encounter Encounter Disease Active [facility] for for 6[facility]20 [facility] screening screening 00:00: Medi michele for viral for viral 00 Cent er disease disease Screening Screening Disease Active [facility] for for 6-20 [facility] malignant malignant 00:00: Medi [facility] neoplasm neoplasm 00 Center NAFLD NAFLD Disease Active [facility] (nonalcoho (nonalcoho 6-20 [facility] kes lic fatty lic fatty 00:00: Medi [facility] liver liver 00 Center disease) disease) NAFLD NAFLD Disease Active [facility] (nonalcoho (nonalcoho 6-20 [facility] kes lic fatty lic fatty 00:00: Medi michele liver liver 00 Center disease) disease) DX: DX: Diagnosis Active 2020-062021-09-27 Mem oria R10.10=UPP R10.10=UPP 1-10 07:40:00 l ER ER 00:00: Anderson ABDOMINAL ABDOMINAL 00 PAIN, PAIN, UNSPECI UNSPECI Active 05/09/2021 [facility] DX: DX: Diagnosis Active 2019-062020-04-11 Mem oria R10.10, R10.10, 0-07 09:14:00 l R14.0 R14.0 00:00: Anderson Active 00 04/05/2020 [facility] Long-term Current Problem Commo n current use of Spirit use of insulin - CHI insulin [facility] [id number] Leukocytos Problem Co mmon is, Spirit unspecifie - CHI d type [facility] [id number] Diabetic Problem Comm on polyneurop Spirit athy - CHI associated [facility] with type [facility] 2 diabetes Medica mellitus [place] [id number] Depression Problem Co mmon with Spirit anxiety - CHI [facility] [id number] Obesity Problem Common hypoventil Spirit ation - CHI syndrome [facility] [id number] Intractabl Problem Co mmon e migraine Spirit with aura - [facility] without [facility] migrainosu Medica [facility] [id number] 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 diabetes - CHI mellitus [facility] hyperglyce Medica l [facility] Center [id number] Seasonal Problem Comm on allergies [facility] [id number] Fatty Problem Common liver [facility] - [facility] [id number] Irritable Problem Com mon bowel Spirit syndrome - [facility]I with St constipati [facility] [id number] Symptomati Problem Co mmon c spider Spirit varicose - CHI vein [facility] [id number] Panic Problem Common disorder Spirit [episodic - CHI paroxysmal St anxiety] [facility] [id number] Acute Problem Common stress Spirit reaction - [facility] [id number] Closed Problem Common nondisplac Spirit ed - CHI fracture St of phalanx [facility] of thumb, Medical unspecifie Center d laterality , unspecifie d phalanx, initial encounter [id number] Gastroesop Problem Co mmon hageal Spirit reflux - [facility] Medica [facility] specified [id number] Diverticul Problem Co mmon osis Spirit - [facility] [id number] Other Problem Common chronic Spirit gastritis - CHI without [facility] Psoriatic Psoriatic Problem Com mon arthritis arthritis Spir it [facility] [id number] Diverticul Problem Co mmon osis of Spirit colon - CHI [facility] [id number] Dysuria Problem Common [facility] [id number] Diverticul Problem Co mmon itis Spirit - CHI [facility] 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 - CHI [facility] [id number] Decreased Problem Commo n mobility [facility] - [facility]I [facility] 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 [facility] [id number] Gastro-eso Problem Co mmon phageal Spirit reflux - CHI disease [facility] esophagiti Medica l [facility] [id number] Crohn's Problem Common disease of Spirit colon - CHI without complicati [facility] [id number] Memory Problem Common deficit [facility] [id number] Thrombocyt Problem Co mmon openia Spirit [facility] [id number] Other Problem Common chronic Spirit pain - [facility] [id number] Unsteady Problem Commo n gait Spirit [facility] [id number] Arthritis Problem Co mmon [id number] of left Spirit hip - [facility] M54.42 - M54.42 - Diagnosis Active 2022-09-13 Memoria LUMBAGO LUMBAGO 16:00:00 l WITH WITH Bernardino SCIATICA, SCIATICA, LEFT SI LEFT SI Active [facility] R51.9 - R51.9 - Diagnosis Active 2023-04-10 Memoria HEADACHE, HEADACHE, 09:08:00 l UNSPECIFIE UNSPECIFIE He rmann D G43.901 D G43.901 - - Active OPID [place] Allergies, Adverse Reactions, Alerts Allergy Allergy Status Severity Reaction(s) Onset Inactive Treating Comm ents Source Name Type Date Date Clinician NO KNOWN Allergy Active [facility] Family History Family Member Diagnosis Comments Start Date Stop Date Source Natural brother Diabetes [facility] Natural father Diabetes [facility] Natural mother Diabetes [facility] Natural sister Diabetes [facility] Social History Social Habit Start Date Stop Date Quantity Comments Source History of Tobacco Common Spirit - Use [facility] [place] [facility] History of Social 2022-12-04 2022-12-04 [facility]00 00:00:00 Exposure to 2022-11-23 2022-12-03 Not sure [facility] SARS-CoV-2 (event) 00:00:00 12:51:00 Tobacco use and 2022-08-20 2022-08-20 Smokeless tobacco [facility] exposure 00:00:00 00:00:00 non-user Alcohol intake 2022-08-01 2022-08-01 Ex-drinker [facility] 00:00:00 00:00:00 (finding) [facility] Center Sex Assigned At [birth year] [place] [facility] 00:00:[facility] 00:00:00 Smoking Status Start Date Stop Date Source Never smoked tobacco [facility] Medications Ordered Filled Start Stop Current Ordering Indication Dosage Frequency Signature Comments Components Source Medication Medication Date Date Medication? Clinician (SIG) Name Name Rizatriptan Rizatriptan 2022-06 No 1{table QD Rizatripta Benzoate 5 Benzoate 5 0-13 t} n Benzoate MG MG 00:00: 5 MG 00 dicyclomine 2022-06 Yes TAKE 1 UT (Bentyl) 20 0-10 TABLET BY Hea lth MG tablet 14:20: MOUTH 4 51 TIMES DAILY NEEDED FOR ABDOMINAL CRAMP/PAIN for 30 empaglifloz 2022-06 Yes 10mg QD Take 10 mg UT in 0-10 by mouth 1 Health (Jardiance) 14:20: (one) time 10 MG 51 each day. ertuglifloz 2022-06 Yes 1 (one) UT in 0-10 time each Health (Steglatro) 14:20: day at the 51 same time. gabapentin 2022-06 Yes 300mg QD Take 300 UT (Neurontin) 0-10 mg by Health 300 MG 14:20: mouth 1 capsule 51 (one) time each day. glimepiride 2022-06 Yes Take 1 UT (Amaryl) 4 0-10 tablet by Heal th MG tablet 14:20: mouth 51 twice daily with food for 90 ondansetron 2022-06- Yes [id number] 4mg Take 1 UT (Zofran) 4 0-10 11-10 tablet (4 Hea lth MG tablet 00:00: 05:59 mg total) 00 :00 by mouth every 8 (eight) hours if needed for nausea or vomiting. butalbital- 2022-06- Yes [id number] 1{tbl} Take 1 UT acetaminoph 0-10 10-21 tablet by He alth en-caffeine 00:00: 04:59 mouth 50-325-40 00 :00 every 4 MG tablet (four) hours if needed for headaches for up to 10 days. methylPREDN 2022-06- Yes [id number] Follow UT ISolone 0-10 10-18 schedule Health (Medrol 00:00: 04:59 on package Dospak) 4 00 :00 instructio MG tablets ns valproic 2022-06- Yes [id number] 250mg Q.5D Take 1 UT acid 0-10 10-18 capsule Health (Depakene) 00:00: 04:59 (250 mg 250 MG 00 :00 total) by capsule mouth in the morning and 1 capsule (250 mg total) in the evening. Do all this for 7 days. busPIRone 2022-06 Yes 5mg Q.5D Take 5 mg UT (Buspar) 5 0-04 by mouth Healt h MG tablet 00:00: in the 00 morning and 5 mg before bedtime. gabapentin Yes [id number] TAKE 1 UT (Neurontin) 02-28 CAPSULE BY He alth 100 MG 00:00: MOUTH IN capsule 00 THE MORNING , THEN TAKE 1 CAPSULE DURNING LUNCH - TO BE TAKEN ALONG WITH 300 MG IN THE EVENING BD Pen Yes See UT Needle Kylie 02-04 administra He alth 2nd Gen 32G 00:00: tion X 4 MM misc 00 instructio ns. Accu-Chek Yes USE TO UT Softclix 02-04 CHECK Health Lancets 00:00: GLUCOSE lancets 00 TWICE DAILY Xanax 0.5MG Xanax 0.5MG No 1{table Xanax 727 t} 0.5MG 00:00: 00 lidocaine 2022- No [id number] 10mL UT PF 12-12 Health (Xylocaine) 14:48: 14:48 1 % 48 :00 injection 10 mL bupivacaine 2022- No [id number] 8mL UT PF 12-12 Health (Marcaine) 14:48: 14:48 0.25 % 48 :00 injection 8 mL iohexol 2022- No [id number] 1mL UT (OMNIPaque) 12-12 Health 300 MG/ML 14:48: 14:48 injection 1 48 :00 mL triamcinolo 2022- No [id number] 80mg UT ne 12-12 Health acetonide 14:48: 14:48 (Kenalog-40 48 :00 ) injection 80 mg triamcinolo 2022- No [id number] 80mg 80 mg, UT ne 12-12 Once PRN Health acetonide 14:48: 14:48 Procedure, (Kenalog-40 48 :00 Starting ) injection on Adelina 80 mg 12/12/22 at 0948, For 1 dose iohexol 2022- No [id number] 1mL 1 mL, Once UT (OMNIPaque) 12-12 PRN Health 300 MG/ML 14:48: 14:48 Procedure, injection 1 48 :00 Starting mL on Adelina 12/12/22 at 0948, For 1 dose bupivacaine 2022-0 2022- No [id number] 8mL 8 mL, Once UT PF 12-12 PRN Health (Marcaine) 14:48: 14:48 Procedure, 0.25 % 48 :00 Starting injection 8 on Adelina mL 12/12/22 at 0948, For 1 dose lidocaine 0 2022- No [id number] 10mL 10 mL, UT PF 12-12 Once PRN Health (Xylocaine) 14:48: 14:48 Procedure, 1 % 48 :00 Starting injection on Adelina 10 mL 12/12/22 at 0948, For 1 dose BD Pen BD Pen No BD Pen Needle Kylie Needle Kylie 6-15 Needle 2nd Gen 32G 2nd Gen 32G 00:00: Kylie 2nd X 4 MM X 4 MM 00 Gen 32G X 4 MM BD Pen BD Pen 0 No BD Pen Needle Kylie Needle Kylie 6-15 Needle 2nd Gen 32G 2nd Gen 32G 00:00: Kylie 2nd X 4 MM X 4 MM 00 Gen 32G X 4 MM celecoxib 2022-0 Yes [id number] TAKE 1 UT (CeleBREX) 12-1208 CAPSULE BY Hea lth 200 MG 00:00: MOUTH ONCE capsule 00 DAILY celecoxib 2022-0 Yes [id number] TAKE 1 UT (CeleBREX) 12-1208 CAPSULE BY Hea lth 200 MG 00:00: MOUTH ONCE capsule 00 DAILY triamcinolo 2022-0 2022- No [id number] 10mg UT ne 12-04 9103 Health acetonide 15:00: 15:00 (Kenalog) 00 :00 10 MG/ML injection 10 mg bupivacaine 2022-0 2022- No [id number] 1mL UT (Marcaine) 12-04 9103 Health 0.25 % 15:00: 15:00 injection 1 00 :00 mL lidocaine 2022-0 2022- No [id number] 1mL UT (Xylocaine) 12-04 9103 Health 1 % 15:00: 15:00 injection 1 00 :00 mL lidocaine 2022- No [id number] 1mL 1 mL, UT (Xylocaine) 12-04 Injection, H ealth 1 % 15:00: 15:00 Once PRN injection 1 00 :00 Procedure, mL Starting on Fri12/04/22 at 1000, For 1 dose bupivacaine 2022- No [id number] 1mL 1 mL, UT (Marcaine) 12-04 Injection, He alth 0.25 % 15:00: 15:00 Once PRN injection 1 00 :00 Procedure, mL Starting on Fri12/04/22 at 1000, For 1 dose triamcinolo No [id number] 10mg 10 mg, UT ne 12-04 Intra-samantha Health acetonide 15:00: 15:00 cular, (Kenalog) 00 :00 Once PRN 10 MG/ML Procedure, injection Starting 10 mg on Fri12/04/22 at 1000, For 1 dose celecoxib No [id number] 200mg QD Take 1 UT (CeleBREX) 12-04 capsule Healt h 200 MG 00:00: 04:59 (200 mg capsule 00 :00 total) by mouth 1 (one) time each day. Diclofenac 2022- No [id number] Q.[id number] Apply UT Sodium 12-04 9108 [id number] topically H ealth (Voltaren) 00:00: 04:59 3D 3 (three) 1 % 00 :00 times a external day if gel needed (pain). APPLY 4 GRAMS TO AFFECTED AREA, DO NOT EXCEED GREATER THAN 16 GRAMS A DAY Diclofenac 2022- No [id number] Q.[id number] Apply UT Sodium 12-04 9108 [id number] topically H ealth (Voltaren) 00:00: 04:59 3D 3 (three) 1 % 00 :00 times a external day if gel needed (pain). APPLY 4 GRAMS TO AFFECTED AREA, DO NOT EXCEED GREATER THAN 16 GRAMS A DAY gabapentin Yes [id number] Take 100mg UT (Neurontin) 6-06 in the Health 100 MG 00:00: morning capsule 00 and 100mg during lunch. To be taken along with 300mg in the evening. gabapentin 2023-0 Yes [id number] Take 100mg UT (Neurontin) 6-06 in the Health 100 MG 00:00: morning capsule 00 and 100mg during lunch. To be taken along with 300mg in the evening. gabapentin 2023-0 Yes [id number] Take 100mg UT (Neurontin) 6-06 in the Health 100 MG 00:00: morning capsule 00 and 100mg during lunch. To be taken along with 300mg in the evening. gabapentin 2023-0 Yes [id number] Take 100mg UT (Neurontin) 6-06 in the [...] twice daily with food for 90 dicyclomine 3-0 Yes TAKE 1 UT (Bentyl) 20 5-30 [...] twice daily with food for 90 dicyclomine Yes TAKE 1 UT (Bentyl) 20 5-30 TABLET BY Hea lth MG tablet 14:43: MOUTH 4 40 TIMES DAILY NEEDED FOR ABDOMINAL CRAMP/PAIN for 30 empaglifloz 0 Yes 10mg QD Take 10 mg UT in 5-30 by mouth 1 Health (Jardiance) 14:43: (one) time 10 MG 40 each day. ertuglifloz 0 Yes 1 (one) UT in 5-30 time each Health (Steglatro) 14:43: day at the 40 same time. gabapentin Yes 300mg QD Take 300 UT (Neurontin) 5-30 mg by Health 300 MG 14:43: mouth 1 capsule 40 (one) time each day. glimepiride Yes Take 1 UT (Amaryl) 4 5-30 tablet by Heal th MG tablet 14:43: mouth 40 twice daily with food for 90 HumaLOG Yes USE PER UT KWIKPEN 200 3-30 SLIDING Healt h UNIT/ML 00:00: SCALE solution 00 BEFORE pen-injecto MEALS AT r injection BEDTIME MAX OF 30 UNITS UNDER THE SKIN (SUBQCUTAN EOUS) DAILY HumaLOG Yes USE PER UT KWIKPEN 200 3-30 SLIDING Healt h UNIT/ML 00:00: SCALE solution 00 BEFORE pen-injecto MEALS AT r injection BEDTIME MAX OF 30 UNITS UNDER THE SKIN (SUBQCUTAN EOUS) DAILY HumaLOG Yes USE PER UT KWIKPEN 200 3-30 SLIDING Healt h UNIT/ML 00:00: SCALE solution 00 BEFORE pen-injecto MEALS AT r injection BEDTIME MAX OF 30 UNITS UNDER THE SKIN (SUBQCUTAN EOUS) DAILY HumaLOG Yes USE PER UT KWIKPEN 200 3-30 SLIDING Healt h UNIT/ML 00:00: SCALE solution 00 BEFORE pen-injecto MEALS AT r injection BEDTIME MAX OF 30 UNITS UNDER THE SKIN (SUBQCUTAN EOUS) DAILY HumaLOG Yes USE PER UT KWIKPEN 200 3-30 SLIDING Healt h UNIT/ML 00:00: SCALE solution 00 BEFORE pen-injecto MEALS AT r injection BEDTIME MAX OF 30 UNITS UNDER THE SKIN (SUBQCUTAN EOUS) DAILY HumaLOG 2023-0 Yes USE PER UT KWIKPEN 200 3-30 SLIDING Healt h UNIT/ML 00:00: SCALE solution 00 BEFORE pen-injecto MEALS AT r injection BEDTIME MAX OF 30 UNITS UNDER THE SKIN (SUBQCUTAN EOUS) DAILY sertraline 2023-0 Yes 200mg QD Take 200 [...] tablet 00 (one) time each day. dicyclomine 2023-0 Yes TAKE 1 UT (Bentyl) 20 2-21 TABLET BY Hea lth MG tablet 13:19: MOUTH 4 31 TIMES DAILY NEEDED FOR ABDOMINAL CRAMP/PAIN for 30 empaglifloz 2023-0 Yes 10mg QD Take 10 mg UT in 2-21 by mouth 1 Health (Jardiance) 13:19: (one) time 10 MG 31 each day. ertuglifloz 2023-0 Yes 1 (one) UT in 2-21 time each Health (Steglatro) 13:19: day at the 31 same time. gabapentin 2023-0 Yes 300mg QD Take 300 UT (Neurontin) 2-21 mg by Health 300 MG 13:19: mouth 1 capsule 31 (one) time each day. glimepiride 2023-0 Yes Take 1 UT (Amaryl) 4 2-21 [...] MG 00:00: 00:00 eeded} 00 :00 metFORMIN 0 Yes 500mg Take 500 CHI [...] Medical capsule 22 every Center evening. insulin 2022-0 Yes 86U QD Inject 86 [facility] degludec 2-02 Units [facility] (TRESIBA 11:27: subcutaneo Med ical U-100 22 usly every Center INSULIN morning. SUBQ) dicyclomine 2022-0 Yes 20mg Take [address] (BENTYL) 20 2-02 by mouth. [facility] es mg tablet 11:27: Medical 22 [place] insulin 2022-[address] [facility] lispro 2-02 subcutaneo [facility] (HumaLOG 11:27: usly. [address] Insulin) 200 unit/mL (3 mL) InPn metFORMIN 2022-0 Yes 500mg Take 500 CHI [...] tablet 11:27: Daily Medical 22 (1800) . [place] gabapentin 0 Yes 300mg QD Take [address] (NEURONTIN) 2-02 mg by [facility] 300 MG 11:27: mouth Medical capsule 22 every Center evening. insulin 2022-0 Yes 86U QD Inject 86 [facility] t degludec 2-02 Units [facility] (TRESIBA 11:27: subcutaneo Med ical U-100 22 usly every Center INSULIN morning. SUBQ) dicyclomine 2022-0 Yes 20mg Take [address] (BENTYL) 20 2-02 by mouth. [facility] es mg tablet 11:27: [facility] 22 [place] insulin 2022-[address] [facility] lispro 2-02 subcutaneo [facility] (HumaLOG 11:27: usly. [address] Insulin) 200 unit/mL (3 mL) In metFORMIN 2022-0 Yes 500mg Take [address] (GLUCOPHAGE 2-02 mg by [facility] ) 500 MG 11:27: mouth 2 Medica l tablet 22 (two) Center times daily with breakfast and dinner. glimepiride 2022-0 Yes 4mg Take [address] (AMARYL) 4 2-02 by mouth 2 [facility] es MG tablet 11:27: (two) Medical 22 times Center daily before meals. sertraline Yes 50mg Take 50 mg C [...] Carmelina es mg tablet 11:27: Medical 22 [place] insulin Yes Inject [facility] lispro 2-02 subcutaneo [facility] (HumaLOG 11:27: usly. Medical KwikPen 22 [place] Insulin) 200 unit/mL (3 mL) InPn empaglifloz Yes 10mg QD Take [address] in 2-02 by mouth [facility] (JARDIANCE) 11:25: daily. Medi michele 10 mg 29 Center tablet empaglifloz 0 Yes 10mg QD Take [address] in 2-02 by mouth [facility] (JARDIANCE) 11:25: daily. Medi michele 10 mg 29 Center tablet empaglifloz 0 Yes 10mg QD Take [address] in 2-02 by mouth [facility] (JARDIANCE) 11:25: daily. Medi michele 10 mg 29 Center tablet ALPRAZolam ALPRAZolam No QD ALPRAZolam 0.5 MG 0.5 MG 1-20 0.5 MG 00:00: 00 ALPRAZolam ALPRAZolam 0 No QD ALPRAZolam 0.5 MG 0.5 MG 1-20 0.5 MG 00:00: 00 ALPRAZolam ALPRAZolam No QD ALPRAZolam 0.5 MG 0.5 MG 1-20 0.5 MG 00:00: 00 ALPRAZolam ALPRAZolam No QD ALPRAZolam 0.5 MG 0.5 MG 1-20 0.5 MG 00:00: 00 ALPRAZolam ALPRAZolam 0 No QD ALPRAZolam 0.5 MG 0.5 MG 1-20 0.5 MG 00:00: 00 ALPRAZolam ALPRAZolam 0 No QD ALPRAZolam 0.5 MG 0.5 MG 1-20 0.5 MG 00:00: 00 metFORMIN 2021- Yes 1000mg Take 1,000 UT (Glucophage 2-29 mg by Health ) 500 MG 00:00: mouth in tablet 00 the morning and 1,000 mg in the evening. Take with meals. metFORMIN 2021-06 Yes 1000mg Take 1,000 UT (Glucophage 2-29 mg by Health ) 500 MG 00:00: mouth in tablet 00 the morning and 1,000 mg in the evening. Take with meals. metFORMIN 2021-06 Yes 1000mg Take 1,000 UT (Glucophage 2-29 mg by Health ) 500 MG 00:00: mouth in tablet 00 the morning and 1,000 mg in the evening. Take with meals. metFORMIN 2021-06 Yes 1000mg Take 1,000 UT (Glucophage 2-29 mg by Health ) 500 MG 00:00: mouth in tablet 00 the morning and 1,000 mg in the evening. Take with meals. metFORMIN 2021- Yes 1000mg Take 1,000 UT (Glucophage 2-29 mg by Health ) 500 MG 00:00: mouth in tablet 00 the morning and 1,000 mg in the evening. Take with meals. metFORMIN 2021-06 Yes 1000mg Take 1,000 UT (Glucophage 2-29 mg by Health ) 500 MG 00:00: mouth in tablet 00 the morning and 1,000 mg in the evening. Take with meals. metFORMIN 2021-06 Yes 1000mg Take 1,000 UT (Glucophage 2-29 mg by Health ) 500 MG 00:00: mouth in tablet 00 the morning and 1,000 mg in the evening. Take with meals. linaCLOtide 2021-06 Yes 1{capsu Take 1 U T (Linzess) 2-05 le} capsule by [facility] 72 MCG 00:00: mouth 1 capsule 00 (one) time each day in the evening. linaCLOtide 2021-06 Yes 1{capsu Take 1 U T (Linzess) 2-05 le} capsule by Heal th 72 MCG 00:00: mouth 1 capsule 00 (one) time each day in the evening. linaCLOtide 2021-06 Yes 1{capsu Take 1 U T (Linzess) 2-05 le} capsule by Heal th 72 MCG 00:00: mouth 1 capsule 00 (one) time each day in the evening. linaCLOtide 2021-06 Yes 1{capsu Take 1 U T (Linzess) 2-05 le} capsule by Heal th 72 MCG 00:00: mouth 1 capsule 00 (one) time each day in the evening. linaCLOtide 2021-06 Yes 1{capsu Take 1 U T (Linzess) 2-05 le} capsule by Heal th 72 MCG 00:00: mouth 1 capsule 00 (one) time each day in the evening. linaCLOtide 2021-06 Yes 1{capsu Take 1 U T (Linzess) 2-05 le} capsule by Heal th 72 MCG 00:00: mouth 1 capsule 00 (one) time each day in the evening. linaCLOtide 2021-06 Yes 1{capsu Take 1 U T (Linzess) 2-05 le} capsule by [facility] 72 MCG 00:00: mouth 1 capsule [...] MG tablet 00:00: mouth Medical 00 daily. [place] meloxicam 2021-06 Yes TAKE 1 UT (Mobic) [...] MG tablet 00:00: mouth Medical 00 daily. [place] meloxicam 2021-06 Yes 7.5mg QD Take 7.[address] (MOBIC) 7.5 1-08 mg by [facility] MG tablet 00:00: mouth Medical 00 daily. [place] Continuous Yes USE UT Blood Gluc 9-26 DIRECTED Healt h Sensor 00:00: TO CHECK (FreeStyle 00 BLOOD Tay 2 SUGARS FOR Sensor) 14 DAYS misc DIRECTED Continuous Yes USE UT Blood Gluc 9-26 DIRECTED Healt h Sensor 00:00: TO CHECK (FreeStyle 00 BLOOD Tay 2 SUGARS FOR Sensor) 14 DAYS misc DIRECTED Continuous 0 Yes USE UT Blood Gluc 9-26 DIRECTED Healt h Sensor 00:00: TO CHECK (FreeStyle 00 BLOOD Tay 2 SUGARS FOR Sensor) 14 DAYS misc DIRECTED Continuous 0 Yes USE UT Blood Gluc 9-26 DIRECTED Healt h Sensor 00:00: TO CHECK (FreeStyle 00 BLOOD Tay 2 SUGARS FOR Sensor) 14 DAYS misc DIRECTED Continuous 0 Yes USE UT Blood Gluc 9-26 DIRECTED Healt h Sensor 00:00: TO CHECK (FreeStyle 00 BLOOD Tay 2 SUGARS FOR Sensor) 14 DAYS misc DIRECTED Continuous 0 Yes USE UT Blood Gluc 9-26 DIRECTED Healt h Sensor 00:00: TO CHECK (FreeStyle 00 BLOOD Tay 2 SUGARS FOR Sensor) 14 DAYS misc DIRECTED Continuous 0 Yes USE UT Blood Gluc 9-26 DIRECTED [...] Medical 00 daily as Center needed. ALPRAZolam Yes 1{tbl} Take [address] (XANAX) 0.5 8-29 tablet by [facility] MG tablet 00:00: mouth Medical 00 daily as Center needed. ALPRAZolam Yes 1{tbl} Take [address] [...] MG 7-19 0.5 MG 00:00: 00 insulin 2-0 Yes 1 (one) UT degludec 01-03 time each Health (Tresiba 00:00: day at the FlexTouch) 00 same time. 200 UNIT/ML injection insulin 2-0 Yes 1 (one) UT degludec - time each Health (Tresiba 00:00: day at the FlexTouch) 00 same time. 200 UNIT/ML injection insulin 2022-0 Yes 1 (one) UT degludec - time each Health (Tresiba 00:00: day at the FlexTouch) 00 same time. 200 UNIT/ML injection insulin 2022-0 Yes 1 (one) UT degludec - time each Health (Tresiba 00:00: day at the FlexTouch) 00 same time. 200 UNIT/ML injection insulin 2022-0 Yes 1 (one) UT degludec - time each Health (Tresiba 00:00: day at the FlexTouch) 00 same time. 200 UNIT/ML injection insulin 2022-0 Yes 1 (one) UT degludec -07 time each Health (Tresiba 00:00: day at the FlexTouch) 00 same time. 200 UNIT/ML injection insulin 2022-0 Yes 1 (one) UT degludec 7-07 time each Health (Tresiba 00:00: day at the FlexTouch) 00 same time. 200 UNIT/ML injection ALPRAZolam ALPRAZolam 0 No QD ALPRAZolam 0.5 [...] MG MG 00 50-12.5 MG HumaLOG HumaLOG 0 No HumaLOG KwikPen 200 KwikPen 200 4-12 KwikPen UNIT/ML UNIT/ML 00:00: 200 00 UNIT/ML HumaLOG HumaLOG 0 No HumaLOG KwikPen 200 KwikPen 200 4-12 KwikPen UNIT/ML UNIT/ML 00:00: 200 00 UNIT/ML ALPRAZolam ALPRAZolam 2021-0 No ALPRAZolam 0.5 MG 0.5 MG 3-23 0.5 MG 00:00: 00 ALPRAZolam ALPRAZolam 2021-0 No ALPRAZolam 0.5 MG 0.5 MG 3-23 0.5 MG 00:00: 00 ALPRAZolam ALPRAZolam 2-0 No ALPRAZolam 0.5 MG 0.5 MG 3-23 0.5 MG 00:00: 00 omeprazole 2022-0 Yes 20mg QD Take 20 [...] 2-16 0.5 MG 00:00: 00 ALPRAZolam ALPRAZolam 2022-0 No ALPRAZolam 0.5 MG 0.5 MG 2-16 0.5 MG 00:00: 00 ALPRAZolam ALPRAZolam 2022-0 No ALPRAZolam 0.5 MG 0.5 MG 2-16 0.5 MG 00:00: 00 ALPRAZolam ALPRAZolam 2022-0 No ALPRAZolam 0.5 MG 0.5 MG 2-16 0.5 MG 00:00: 00 ALPRAZolam ALPRAZolam 2022-0 No ALPRAZolam 0.5 MG 0.5 MG 2-16 0.5 MG 00:00: 00 ALPRAZolam 0 Yes 1 (one) UT (Xanax) [...] n 250 MG n 250 MG 07-21 1127 in 250 MG 00:00: 00:00 00 :00 ALPRAZolam ALPRAZolam 2020-06 No ALPRAZolam 0.5 MG 0.5 MG -18 0.5 MG 00:00: 00 ALPRAZolam ALPRAZolam 2020-06 No ALPRAZolam 0.5 MG 0.5 MG 1-18 0.5 MG 00:00: 00 FreeStyle FreeStyle 2020-06 No FreeStyle Tay 14 Tay 14 0-07 Tay 14 Day Sensor Day Sensor 00:00: Day Sensor - - 00 - FreeStyle FreeStyle 2020-06 No FreeStyle Tay 2 Tay 2 0-07 Tay 2 Ottosen - Ottosen - 00:00: Ottosen - 00 Neomycin-Po Neomycin-Po 2020-06 No 4{drops BID Neomycin-P lymyxin-HC lymyxin-HC 0-07 _into_a olymyxin-H 3.5-25690-8 3.5-89449-8 00:00: ffected C 00 _ear} 3.5-11225- 1 FreeStyle FreeStyle 2020-06 No FreeStyle Tay 2 Tay 2 0-07 Tay 2 Ottosen - Ottosen - 00:00: Ottosen - 00 FreeStyle FreeStyle 2020-06 No FreeStyle Tay 14 Tay 14 0-07 Tay 14 Day Sensor Day Sensor 00:00: Day Sensor - - 00 - Neomycin-Po Neomycin-Po 2020-06 No 4{drops BID Neomycin-P lymyxin-HC lymyxin-HC 0-07 _into_a olymyxin-H 3.5-82646-8 3.5-98700-3 00:00: ffected C 00 _ear} 3.5-47895- 1 Neomycin-Po Neomycin-Po 2020-06 No 4{drops BID Neomycin-P lymyxin-HC lymyxin-HC 0-07 _into_a olymyxin-H 3.5-13938-7 3.5-52250-7 00:00: ffected C 00 _ear} 3.5-96318- 1 FreeStyle FreeStyle 2020-06 No FreeStyle Tay 14 Tay 14 0-07 Tay 14 Day Sensor Day Sensor 00:00: Day Sensor - - 00 - FreeStyle FreeStyle 2020-06 No FreeStyle Tay 2 Tay 2 0-07 Tay 2 Ottosen - Ottosen - 00:00: Ottosen - 00 FreeStyle FreeStyle 2020-06 No FreeStyle Tay 14 Tay 14 0-07 Tay 14 Day Sensor Day Sensor 00:00: Day Sensor - - 00 - Neomycin-Po Neomycin-Po 2020-06 No 4{drops BID Neomycin-P lymyxin-HC lymyxin-HC 0-07 _into_a olymyxin-H 3.5-84077-8 3.5-66619-6 00:00: ffected C 00 _ear} 3.5-06015- 1 FreeStyle FreeStyle 2020-06 No FreeStyle Tay 2 Tay 2 0-07 Tay 2 Ottosen - Ottosen - 00:00: Ottosen - 00 FreeStyle FreeStyle 2020-06 No FreeStyle Tay 14 Tay 14 0-07 Tay 14 Day Sensor Day Sensor 00:00: Day Sensor - - 00 - Neomycin-Po Neomycin-Po 2020-06 No 4{drops BID Neomycin-P lymyxin-HC lymyxin-HC 0-07 _into_a olymyxin-H 3.5-45784-2 3.5-83201-1 00:00: ffected C 00 _ear} 3.5-23848- 1 FreeStyle FreeStyle 2020-06 No FreeStyle Tay 2 Tay 2 0-07 Tay 2 Ottosen - Ottosen - 00:00: Ottosen - 00 FreeStyle FreeStyle 2020-06 No FreeStyle Tay 14 Tay 14 0-07 Tay 14 Day Sensor Day Sensor 00:00: Day Sensor - - 00 - Neomycin-Po Neomycin-Po 2020-06 No 4{drops BID Neomycin-P lymyxin-HC lymyxin-HC 0-07 _into_a olymyxin-H 3.5-90425-2 3.5-48717-5 00:00: ffected C 00 _ear} 3.5-30559- 1 FreeStyle FreeStyle 2020-06 No FreeStyle Tay 2 Tay 2 0-07 Tay 2 Ottosen - Ottosen - 00:00: Ottosen - 00 FreeStyle FreeStyle 2020-06 No FreeStyle Tay 14 Tay 14 0-07 Tay 14 Day Sensor Day Sensor 00:00: Day Sensor - - 00 - FreeStyle FreeStyle 2020-06 No FreeStyle Tay 2 Tay 2 0-07 Tya 2 Ottosen - Ottosen - 00:00: Ottosen - 00 Neomycin-Po Neomycin-Po 2021-1 No 4{drops BID Neomycin-P lymyxin-HC lymyxin-HC 0-07 _into_a olymyxin-H 3.5-81951-5 3.5-50728-5 00:00: ffected C 00 _ear} 3.5-75287- 1 FreeStyle FreeStyle 2020-06 No FreeStyle Tay 2 Tay 2 0-07 Tay 2 Ottosen - Ottosen - 00:00: Ottosen - 00 FreeStyle FreeStyle 2020-06 No FreeStyle Tay 14 Tay 14 0-07 Tay 14 Day Sensor Day Sensor 00:00: Day Sensor - - 00 - Neomycin-Po Neomycin-Po 2020-06 No 4{drops BID Neomycin-P lymyxin-HC lymyxin-HC 0-07 _into_a olymyxin-H 3.5-17137-6 3.598757-7 00:00: ffected C 00 _ear} 3.5-- 1 FreeStyle FreeStyle 2020-06 No FreeStyle Tay 2 Tay 2 0-07 Tay 2 Ottosen - Ottosen - 00:00: Ottosen - 00 FreeStyle FreeStyle 2020-06 No FreeStyle Tay 14 Tay 14 0-07 Tay 14 Day Sensor Day Sensor 00:00: Day Sensor - - 00 - Neomycin-Po Neomycin-Po 2020-06 No 4{drops BID Neomycin-P lymyxin-HC lymyxin-HC 0-07 _into_a olymyxin-H 3.534536-3 3.542998-5 00:00: ffected C 00 _ear} 3.5- 1 FreeStyle FreeStyle 2020-06 No FreeStyle Tay 14 Tay 14 0-07 Tay 14 Day Sensor Day Sensor 00:00: Day Sensor - - 00 - FreeStyle FreeStyle 2020-06 No FreeStyle Tay 2 Tay 2 0-07 Tay 2 Ottosen - Ottosen - 00:00: Ottosen - 00 Neomycin-Po Neomycin-Po 2020-06 No 4{drops BID Neomycin-P lymyxin-HC lymyxin-HC 0-07 _into_a olymyxin-H 3.5-36920-6 3.5-87251-4 00:00: ffected C 00 _ear} 3.5-32971- 1 FreeStyle FreeStyle 2020-06 No FreeStyle Tay 14 Tay 14 0-07 Tay 14 Day Sensor Day Sensor 00:00: Day Sensor - - 00 - FreeStyle FreeStyle 2020-06 No FreeStyle Tay 2 Tay 2 0-07 Tay 2 Ottosen - Ottosen - 00:00: Ottosen - 00 Neomycin-Po Neomycin-Po 2020-06 No 4{drops BID Neomycin-P lymyxin-HC lymyxin-HC 0-07 _into_a olymyxin-H 3.5-05109-5 3.5-93599-7 00:00: ffected C 00 _ear} 3.5-13850- 1 Neomycin-Po Neomycin-Po 2020-06 No 4{drops BID Neomycin-P lymyxin-HC lymyxin-HC 0-07 _into_a olymyxin-H 3.5-67840-5 3.529807-4 00:00: ffected C 00 _ear} 3.5-42081- 1 FreeStyle FreeStyle 2020-06 No FreeStyle Tay 2 Tay 2 0-07 Tay 2 Ottosen - Ottosen - 00:00: Ottosen - 00 FreeStyle FreeStyle 2020-06 No FreeStyle Tay 14 Tay 14 0-07 Tay 14 Day Sensor Day Sensor 00:00: Day Sensor - - 00 - Neomycin-Po Neomycin-Po 2020-06 No 4{drops BID Neomycin-P lymyxin-HC lymyxin-HC 0-07 _into_a olymyxin-H 3.574618-1 3.513172-5 00:00: ffected C 00 _ear} 3.5- 1 FreeStyle FreeStyle 2020-06 No FreeStyle Tay 2 Tay 2 0-07 Tay 2 Ottosen - Ottosen - 00:00: Ottosen - 00 FreeStyle FreeStyle 2020-06 No FreeStyle Tay 14 Tay 14 0-07 Tay 14 Day Sensor Day Sensor 00:00: Day Sensor - - 00 - Neomycin-Po Neomycin-Po 2020-06 No 4{drops BID Neomycin-P lymyxin-HC lymyxin-HC 0-07 _into_a olymyxin-H 3.556960-5 3.546655-8 00:00: ffected C 00 _ear} 3.5-24838- 1 FreeStyle FreeStyle 2020-06 No FreeStyle Tay 2 Tay 2 0-07 Tay 2 Ottosen - Ottosen - 00:00: Ottosen - 00 FreeStyle FreeStyle 2020-06 No FreeStyle Tay 14 Tay 14 0-07 Tay 14 Day Sensor Day Sensor 00:00: Day Sensor - - 00 - Neomycin-Po Neomycin-Po 2020-06 No 4{drops BID Neomycin-P lymyxin-HC lymyxin-HC 0-07 _into_a olymyxin-H 3.5-10841-7 3.5-29277-0 00:00: ffected C 00 _ear} 3.5-21277- 1 FreeStyle FreeStyle 2020-06 No FreeStyle Tay 2 Tay 2 0-07 Tay 2 Ottosen - Ottosen - 00:00: Ottosen - 00 FreeStyle FreeStyle 2020-06 No FreeStyle Tay 14 Tay 14 0-07 Tay 14 Day Sensor Day Sensor 00:00: Day Sensor - - 00 - neomycin-po 2020-06 Yes Q12H every 12 UT lymyxin-hyd 0-07 (twelve) Heal th rocortisone 00:00: hours. (Cortispori 00 n) 3.5-35309-3 otic suspension neomycin-po 2020-1 Yes Q12H every 12 UT lymyxin-hyd 0-07 (twelve) Heal th rocortisone 00:00: hours. (Cortispori 00 n) 3.5-10414-4 otic suspension neomycin-po 2020-1 Yes Q12H every 12 UT lymyxin-hyd 0-07 (twelve) Heal th rocortisone 00:00: hours. (Cortispori 00 n) 3.5-36819-3 otic suspension neomycin-po 2020-1 Yes Q12H every 12 UT lymyxin-hyd 0-07 (twelve) Heal th rocortisone 00:00: hours. (Cortispori 00 n) 3.5-60214-6 otic suspension neomycin-po 2020-1 Yes Q12H every 12 UT lymyxin-hyd 0-07 (twelve) Heal th rocortisone 00:00: hours. (Cortispori 00 n) 3.5-06304-6 otic suspension neomycin-po 2021-1 Yes Q12H every 12 UT lymyxin-hyd 0-07 (twelve) Heal th rocortisone 00:00: hours. (Cortispori 00 n) 3.5-32517-1 otic suspension neomycin-po 2020-06 Yes Q12H every 12 UT lymyxin-hyd 0-07 (twelve) Heal th rocortisone 00:00: hours. (Cortispori 00 n) 3.5-56773-8 otic suspension Sertraline Sertraline 2018-06 Yes Na Haney 2 tablets [facility] HCl HCl 2-24 [facility] 00:00: - [facility] Fluticasone Fluticasone 2018-06 No 1{spray QD [...] mouth Luke s MG [facility] [address] [place] empaglifloz 2016-06 Yes 10mg QD Take [address] [facility] 1-10 by mouth [facility] (JARDIANCE) 10:01: daily. Medi michele 10 mg [address] [place] tablet sertraline 2016-06 Yes 50mg QD Take [address] (ZOLOFT) 50 1-10 by mouth Luke s MG tablet 10:01: [facility] [address] glimepiride 2016-06 Yes 4mg Take [address] (AMARYL) 4 1-10 by mouth 2 Carmelina es MG tablet 10:01: (two) Medical 12 times Center daily before meals. metFORMIN 2016-06 Yes 500mg Take [address] (GLUCOPHAGE 1-10 mg by [facility] ) 500 MG 10:01: mouth 2 Medica l tablet 12 (two) Center times daily with breakfast and dinner. glimepiride 2016-06 Yes 4mg Take [address] (AMARYL) 4 1-10 by mouth 2 Carmelina es MG tablet 10:01: (two) [facility] 12 times Center daily before meals. metFORMIN 2016-06 Yes 500mg Take [address] (GLUCOPHAGE 1-10 mg by [employer] ) 500 MG 10:01: mouth 2 Medica l tablet 12 (two) Center times daily with breakfast and dinner. Metformin Metformin Yes Na Haney 2 tablet [facility] HCl HCl with a Spirit meal - [facility] Dicyclomine Dicyclomine No Dicyclomin HCl 20 [...] 200 UNIT/ML 200 UNIT/ML Omeprazole Omeprazole No QD Omeprazole 40 MG 40 MG 40 MG metFORMIN metFORMIN No 2{table BID metFORMIN HCl 500 MG HCl 500 MG t_with_ HCl 500 MG a_meal} Glimepiride Glimepiride No 1{table BID Glimepirid 4 MG 4 MG t_with_ e 4 MG a_meal} Meloxicam Meloxicam No 1{table QD Meloxicam 7.5 MG 7.5 MG t} 7.5 MG Sertraline Sertraline No 2{table QD Sertraline HCl 100 MG HCl 100 MG ts} HCl 100 MG Xanax 0.5MG Xanax 0.5MG No 1{table Xanax t} 0.5MG metFORMIN metFORMIN No 2{table BID metFORMIN HCl 500 MG HCl 500 MG t_with_ HCl 500 MG a_meal} traZODone traZODone No 1{table QD traZODone HCl 50 MG HCl 50 MG t_at_be HCl 50 MG dtime_a s_neede d} Tresiba Tresiba No QD Tresiba FlexTouch FlexTouch FlexTouch 200 UNIT/ML 200 UNIT/ML 200 UNIT/ML Dicyclomine Dicyclomine No QID Dicyclomin HCl 20 MG HCl 20 MG e HCl 20 MG traZODone traZODone No 1{table QD traZODone HCl 50 MG HCl 50 MG t_at_be HCl 50 MG dtime_a s_neede d} Zofran 4 MG Zofran 4 MG No 1{table Zofran 4 t} MG busPIRone busPIRone No 1{table BID busPIRone HCl 5 MG HCl 5 MG t} HCl 5 MG Zofran 4 MG Zofran 4 MG [...] Tay 14 Tay 14 Tay 14 Day [place] Day [place] Day [place] - - - metFORMIN metFORMIN No 2{table [...] Tay 14 Tay 14 Tay 14 Day [place] Day Ott[place] Day Ottosen - - - Famotidine Famotidine No 1{table [...] Tay 14 Tay 14 Tay 14 Day [place] Day Ott[place] Day Ottosen - - - traZODone traZODone No 1{table [...] Tay 14 Tay 14 Tay 14 Day [place] Day Ott[place] Day Ottosen - - - Dicyclomine Dicyclomine No QID [...] Tay 14 Tay 14 Tay 14 Day [place] Day Ott[place] Day Ottosen - - - Dicyclomine Dicyclomine No QID [...] Tay 14 Tay 14 Tay 14 Day [place] Day Ott[place] Day Ottosen - - - Dicyclomine Dicyclomine No QID [...] Tay 14 Tay 14 Tay 14 Day [place] Day [place] Day Ott[place] - - - traZODone traZODone No traZODone [...] Tay 14 Tay 14 Tay 14 Day [place] Day Ott[place] Day Ott[place] - - - Famotidine Famotidine No 1{table [...] Tay 14 Tay 14 Tay 14 Day [place] Day [place] Day [place] - - - FreeStyle FreeStyle No FreeStyle [...] Tay 14 Tay 14 Tay 14 Day [place] Day [place] Day Ott[place] - - - Famotidine Famotidine No 1{table [...] Tay 14 Tay 14 Tay 14 Day [place] Day [place] Day [place] - - - Tobramycin Tobramycin No 1{drop_ [...] Tay 14 Tay 14 Tay 14 Day [place] Day [place] Day Ott[place] - - - Omeprazole Omeprazole No 1{capsu [...] Tay 14 Tay 14 Tay 14 Day [place] Day [place] Day Ott[place] - - - Omeprazole Omeprazole No 1{capsu [...] Tay 14 Tay 14 Tay 14 Day [place] Day [place] Day Ott[place] - - - Omeprazole Omeprazole No 1{capsu [...] Tay 14 Tay 14 Tay 14 Day [place] Day Ott[place] Day Ott[place] - - - Omeprazole Omeprazole No 1{capsu [...] 100 MG HCl 100 MG Immunizations Ordered Filled Immunization Date Status Comments [facility] e Immunization Name Name Afluria single dose Afluria single dose 2020-06-01 Completed [facility] 09:27:00 [facility] Afluria single dose Afluria single dose 2020-06-01 Completed [facility] 09:27:00 [facility] Afluria single dose Afluria single dose 2020-06-01 Completed [facility] 09:27:00 [facility] Afluria single dose Afluria single dose 2020-06-01 Completed [facility] 09:27:00 [facility] Afluria single dose Afluria single dose 2020-06-01 Completed [facility] 09:27:00 - [facility] Afluria single dose Afluria single dose 2020-06-01 Completed [facility] 09:27:00 [facility] Afluria single dose Afluria single dose 2020-06-01 Completed [facility] 09:27:00 [facility] Afluria single dose Afluria single dose 2020-06-01 Completed [facility] 09:27:00 - [facility] Afluria single dose Afluria single dose 2020-06-01 Completed [facility] 09:27:00 - [facility] Afluria single dose Afluria single dose 2020-06-01 Completed [facility] 09:27:00 [facility] Afluria single dose Afluria single dose 2020-06-01 Completed [facility] 09:27:00 - [facility] Afluria single dose Afluria single dose 2020-06-01 Completed [facility] 09:27:00 - [facility] Afluria single dose Afluria single dose 2020-06-01 Completed [facility] 09:27:00 - [facility] Afluria single dose Afluria single dose 2020-06-01 Completed [facility] 09:27:00 - [facility] Afluria single dose Afluria single dose 2020-06-01 Completed [facility] 09:27:00 [facility] Afluria single dose Afluria single dose 2020-06-01 Completed [facility] 09:27:00 [facility] Afluria single dose Afluria single dose 2020-06-01 Completed [facility] 09:27:00 - [facility] Afluria single dose Afluria single dose 2020-06-01 Completed [facility] 09:27:00 [facility] Afluria single dose Afluria single dose 2020-06-01 Completed [facility] 09:27:00 [facility] Afluria single dose Afluria single dose 2020-06-01 Completed [facility] 09:27:00 [facility] Afluria single dose Afluria single dose 2020-06-01 Completed [facility] 09:27:00 - [facility] Afluria single dose Afluria single dose 2020-06-01 Completed [facility] 09:27:00 [facility] Afluria single dose Afluria single dose 2020-06-01 Completed [facility] 09:27:00 [facility] Afluria single dose Afluria single dose 2020-06-01 Completed [facility] 09:27:00 [facility] Afluria single dose Afluria single dose 2020-06-01 Completed [facility] 09:27:00 [facility] Afluria single dose Afluria single dose 2020-06-01 Completed [facility] 09:27:00 - [facility] Afluria single dose Afluria single dose 2020-06-01 Completed [facility] 09:27:00 [facility] Afluria single dose Afluria single dose 2020-06-01 Completed [facility] 09:27:00 [facility] Afluria single dose Afluria single dose 2020-06-01 Completed [facility] 09:27:00 - [facility] Afluria single dose Afluria single dose 2020-06-01 Completed [facility] 09:27:00 - [facility] Afluria single dose Afluria single dose 2020-06-01 Completed [facility] 09:27:00 [facility] Afluria single dose Afluria single dose 2020-06-01 Completed [facility] 09:27:00 [facility] Afluria single dose Afluria single dose 2020-06-01 Completed [facility] 09:27:00 [facility] Afluria single dose Afluria single dose 2020-06-01 Completed [facility] 09:27:00 - [facility] Afluria single dose Afluria single dose 2020-06-01 Completed [facility] 09:27:00 [facility] Afluria single dose Afluria single dose 2020-06-01 Completed [facility] 09:27:00 [facility] Afluria single dose Afluria single dose 2020-06-01 Completed [facility] 09:27:00 [facility] Afluria single dose Afluria single dose 2020-06-01 Completed [facility] 09:27:00 [facility] Afluria single dose Afluria single dose 2020-06-01 Completed [facility] 09:27:00 [facility] Afluria single dose Afluria single dose 2020-06-01 Completed [facility] 09:27:00 - [facility] Flucelvax - Flucelvax - 2019-03-30 Completed [facility] multidose vial multidose vial 15:35:00 - [facility] Flucelvax - Flucelvax - 2019-03-30 Completed [facility] multidose vial multidose vial 15:35:00 - [facility] Flucelvax - Flucelvax - 2019-03-30 Completed [facility] multidose vial multidose vial 15:35:00 - [facility] Flucelvax - Flucelvax - 2019-03-30 Completed [facility] multidose vial multidose vial 15:35:00 - [facility] Flucelvax - Flucelvax - 2019-03-30 Completed [facility] multidose vial multidose vial 15:35:00 - [facility] Flucelvax - Flucelvax - 2019-03-30 Completed [facility] multidose vial multidose vial 15:35:00 - [facility] Flucelvax - Flucelvax - 2019-03-30 Completed [facility] multidose vial multidose vial 15:35:00 - [facility] Flucelvax - Flucelvax - 2019-03-30 Completed [facility] multidose vial multidose vial 15:35:00 - [facility] Flucelvax - Flucelvax - 2019-03-30 Completed [facility] multidose vial multidose vial 15:35:00 - [facility] Flucelvax - Flucelvax - 2019-03-30 Completed [facility] multidose vial multidose vial 15:35:00 - [facility] Flucelvax - Flucelvax - 2019-03-30 Completed [facility] multidose vial multidose vial 15:35:00 - [facility] Flucelvax - Flucelvax - 2019-03-30 Completed [facility] multidose vial multidose vial 15:35:00 - [facility] Flucelvax - Flucelvax - 2019-03-30 Completed [facility] multidose vial multidose vial 15:35:00 - [facility] Flucelvax - Flucelvax - 2019-03-30 Completed [facility] multidose vial multidose vial 15:35:00 - [facility] Flucelvax - Flucelvax - 2019-03-30 Completed [facility] multidose vial multidose vial 15:35:00 - [facility] Flucelvax - Flucelvax - 2019-03-30 Completed [facility] multidose vial multidose vial 15:35:00 - [facility] Flucelvax - Flucelvax - 2019-03-30 Completed [facility] multidose vial multidose vial 15:35:00 - [facility] Flucelvax - Flucelvax - 2019-03-30 Completed [facility] multidose vial multidose vial 15:35:00 - [facility] Flucelvax - Flucelvax - 2019-03-30 Completed [facility] multidose vial multidose vial 15:35:00 - [facility] Flucelvax - Flucelvax - 2019-03-30 Completed [facility] multidose vial multidose vial 15:35:00 - [facility] Flucelvax - Flucelvax - 2019-03-30 Completed [facility] multidose vial multidose vial 15:35:00 - [facility] Flucelvax - Flucelvax - 2019-03-30 Completed [facility] multidose vial multidose vial 15:35:00 - [facility] Flucelvax - Flucelvax - 2019-03-30 Completed [facility] multidose vial multidose vial 15:35:00 - [facility] Flucelvax - Flucelvax - 2019-03-30 Completed [facility] multidose vial multidose vial 15:35:00 - [facility] Flucelvax - Flucelvax - 2019-03-30 Completed [facility] multidose vial multidose vial 15:35:00 - [facility] Flucelvax - Flucelvax - 2019-03-30 Completed [facility] multidose vial multidose vial 15:35:00 - [facility] Flucelvax - Flucelvax - 2019-03-30 Completed [facility] multidose vial multidose vial 15:35:00 - [facility] Flucelvax - Flucelvax - 2019-03-30 Completed [facility] multidose vial multidose vial 15:35:00 - [facility] Flucelvax - Flucelvax - 2019-03-30 Completed [facility] multidose vial multidose vial 15:35:00 - [facility] Flucelvax - Flucelvax - 2019-03-30 Completed [facility] multidose vial multidose vial 15:35:00 - [facility] Flucelvax - Flucelvax - 2019-03-30 Completed [facility] multidose vial multidose vial 15:35:00 - [facility] Flucelvax - Flucelvax - 2019-03-30 Completed [facility] multidose vial multidose vial 15:35:00 - [facility] Flucelvax - Flucelvax - 2019-03-30 Completed [facility] multidose vial multidose vial 15:35:00 - [facility] Flucelvax - Flucelvax - 2019-03-30 Completed [facility] multidose vial multidose vial 15:35:00 - [facility] Flucelvax - Flucelvax - 2019-03-30 Completed [facility] multidose vial multidose vial 15:35:00 - [facility] Flucelvax - Flucelvax - 2019-03-30 Completed [facility] multidose vial multidose vial 15:35:00 - [facility] Flucelvax - Flucelvax - 2019-03-30 Completed [facility] multidose vial multidose vial 15:35:00 - [facility] Flucelvax - Flucelvax - 2019-03-30 Completed [facility] multidose vial multidose vial 15:35:00 - [facility] Flucelvax - Flucelvax - 2019-03-30 Completed [facility] multidose vial multidose vial 15:35:00 - [facility] Flucelvax - Flucelvax - 2019-03-30 Completed [facility] multidose vial multidose vial 15:35:00 - [facility] Flucelvax - Flucelvax - 2019-03-30 Completed [facility] multidose vial multidose vial 00:00:00 [facility] Afluria single dose Afluria single dose Unknown Completed [facility] Fluarix Fluarix Unknown Completed [facility] Flucelvax - Flucelvax - Unknown Completed [facility] multidose vial multidose vial - [facility] Vital Signs Vital Name Observation Time Observation Value Comments Source Systolic blood 2023-04-08 19:20:00 126 mm[Hg[facility] Diastolic blood 2023-04-08 19:20:00 68 mm[Hg] [facility] Heart rate 2023-04-08 19:20:00 83 /min [facility] weight 2023-04-08 19:20:00 [facility]39 [facility] 2023-04-08 19:20:00 28.15 kg[facility]m2 [facility] Systolic blood 2023-01-14 16:31:00 152 mm[Hg] [facility] Diastolic blood 2023-01-14 16:31:00 75 mm[Hg] [facility] Heart rate 2023-01-14 16:31:00 80 /[facility] height 2022-12-04 15:11:00 [facility]6 cm [facility] 2022-12-04 15:11:00 [facility]297 [facility] 2022-12-04 15:11:00 28.49 kg[facility]m2 [facility] Systolic blood 2022-11-26 19:43:00 122 mm[Hg] [facility] Diastolic blood 2022-11-26 19:43:00 70 mm[Hg] [facility] Heart rate 2022-11-26 19:43:00 93 /min [facility] weight 2022-11-26 19:43:00 75[facility]297 [facility] height 2022-08-06 15:20:00 64 [in_i] [facility] weight 2022-08-06 15:20:00 162 [lb_av] [facility] temperature 2022-08-06 15:20:00 97.8 [degF] [facility] bmi 2022-08-06 15:20:00 27.8 kg/m2 [facility] height 2022-05-09 15:00:00 64 [in_i] Common [facility] weight 2022-05-09 15:00:00 155.8 [lb_av] [facility] temperature 2022-05-09 15:00:00 97.8 [degF] [facility] bmi 2022-05-09 15:00:00 26.74 kg/m2 [facility] oximetry 2022-05-09 15:00:00 97 % [facility] respiratory rate 2022-05-09 15:00:00 15 /min Comm on [facility] blood pressure 2022-05-09 15:00:00 109 mm[Hg] [facility] - systolic [facility] blood pressure 2022-05-09 15:00:00 58 mm[Hg] [facility] - diastolic [facility] height 2022-05-06 14:00:00 64 [in_i] [facility] weight 2022-05-06 14:00:00 157 [lb_av] [facility] temperature 2022-05-06 14:00:00 97.2 [degF] [facility] bmi 2022-05-06 14:00:00 26.95 kg/m2 [facility] blood pressure 2022-05-06 14:00:00 112 mm[Hg] [facility] - systolic [facility] blood pressure 2022-05-06 14:00:00 68 mm[Hg] [facility] - diastolic [facility] height 2022-02-26 16:40:00 64 [in_i] Common [facility] - [facility] weight 2022-02-26 16:40:00 155 [lb_av] [facility] bmi 2022-02-26 16:40:00 26.6 kg/m2 Common [facility] height 2021-12-06 11:40:00 64 [in_i] [facility] weight 2021-12-06 11:40:00 154 [lb_av] [facility] temperature 2021-12-06 11:40:00 97.8 [degF] Common [facility] bmi 2021-12-06 11:40:00 26.43 kg/m2 [facility] oximetry 2021-12-06 11:40:00 98 % [facility] respiratory rate 2021-12-06 11:40:00 20 /min Comm on [facility] blood pressure 2021-12-06 11:40:00 122 mm[Hg] Common [facility] - systolic [facility] blood pressure 2021-12-06 11:40:00 59 mm[Hg] Common [facility] - diastolic [facility] height 2021-11-19 10:00:00 64 [in_i] Common [facility] weight 2021-11-19 10:00:00 152.4 [lb_av] [facility] temperature 2021-11-19 10:00:00 97.7 [degF] Common [facility] bmi 2021-11-19 10:00:00 26.16 kg/m2 [facility] oximetry 2021-11-19 10:00:00 97 % Common [facility] respiratory rate 2021-11-19 10:00:00 16 /min Comm on [facility] blood pressure 2021-11-19 10:00:00 118 mm[Hg] Common [facility] - systolic [facility] blood pressure 2021-11-19 10:00:00 57 mm[Hg] [facility] - diastolic [facility] height 2021-10-09 16:00:00 64 [in_i] [facility] - [facility] weight 2021-10-09 16:00:00 152 [lb_av] [facility] temperature 2021-10-09 16:00:00 97.7 [degF] [facility] - [facility] bmi 2021-10-09 16:00:00 26.09 kg/m2 [facility] oximetry 2021-10-09 16:00:00 98 % [facility] respiratory rate 2021-10-09 16:00:00 18 /min Comm on [facility] blood pressure 2021-10-09 16:00:00 129 mm[Hg] Common [facility] - systolic [facility] blood pressure 2021-10-09 16:00:00 60 mm[Hg] [facility] - diastolic [facility] height 2021-09-10 08:40:00 64 [in_i] [facility] weight 2021-09-10 08:40:00 148.8 [lb_av] Common [facility] temperature 2021-09-10 08:40:00 97.7 [degF] [facility] bmi 2021-09-10 08:40:00 25.54 kg/m2 Common [facility] - [facility] oximetry 2021-09-10 08:40:00 100 % [facility] respiratory rate 2021-09-10 08:40:00 16 /min Comm on [facility] blood pressure 2021-09-10 08:40:00 123 mm[Hg] [facility] - systolic [facility] blood pressure 2021-09-10 08:40:00 58 mm[Hg] [facility] - diastolic [facility] height 2021-08-21 11:40:00 64 [in_i] [facility] weight 2021-08-21 11:40:00 149.4 [lb_av] Common [facility] temperature 2021-08-21 11:40:00 97.6 [degF] Common [facility] bmi 2021-08-21 11:40:00 25.64 kg/m2 [facility] oximetry 2021-08-21 11:40:00 99 % Common [facility] respiratory rate 2021-08-21 11:40:00 15 /min Comm on [facility] blood pressure 2021-08-21 11:40:00 121 mm[Hg] Common [facility] - systolic [facility] blood pressure 2021-08-21 11:40:00 57 mm[Hg] Common [facility] - diastolic [facility] height 2021-04-05 16:20:00 64 [in_i] [facility] weight 2021-04-05 16:20:00 157 [lb_av] [facility] temperature 2021-04-05 16:20:00 97.6 [degF] [facility] bmi 2021-04-05 16:20:00 26.95 kg/m2 [facility] oximetry 2021-04-05 16:20:00 98 % [facility] respiratory rate 2021-04-05 16:20:00 21 /min Comm on [facility] blood pressure 2021-04-05 16:20:00 120 mm[Hg] Common [facility] - systolic [facility] blood pressure 2021-04-05 16:20:00 58 mm[Hg] Common [facility] - diastolic [facility] Systolic blood 2022-08-01 10:52:00 110 mm[Hg] [facility] Diastolic blood 2022-08-01 10:52:00 67 mm[Hg] [facility] Heart rate 2022-08-01 10:52:00 84 /min [facility] Body temperature 2022-08-01 10:52:00 36.28 Jeannine [facility] Body height 2022-08-01 10:52:00 162.6 cm [facility] Body weight 2022-08-01 10:52:00 73.71 kg [facility] BMI 2022-08-01 10:52:00 27.89 kg/m2 [facility] Oxygen saturation in 2022-08-01 10:52:00 98 /min [facility] Arterial blood by Medical Ce nter Pulse oximetry Systolic blood 2022-03-08 10:20:00 110 mm[Hg] [facility] Diastolic blood 2022-03-08 10:20:00 61 mm[Hg] [facility] Heart rate 2022-03-08 10:20:00 70 /min [facility] Respiratory rate 2022-03-08 10:20:00 12 /min [facility] Oxygen saturation in 2022-03-08 10:20:00 95 /min [facility] Arterial blood by Medical Ce nter Pulse oximetry Body temperature 2022-03-08 09:51:00 36.5 Jeannine [facility] Body height 2022-03-08 09:19:00 162.6 cm [facility] Body weight 2022-03-08 09:19:00 75.751 kg [facility] BMI 2022-03-08 09:19:00 28.67 kg/m2 [facility] Procedures Procedure Date / Time Performing Clinician Source Performed DE ARTHROCENTESIS ASP/INJ 2022-12-12 14:48:28 Ade Kumari [facility] MAJOR JOINT/BURSA W/OUT US CHG FLUOROSCOPIC GUIDANCE 2022-12-12 14:48:28 Ade Kumari [facility] NEEDLE PLACEMENT DE ARTHROCENTESIS ASP/INJ 2022-12-04 15:00:00 Danial Chapa [facility] MAJOR JOINT/BURSA W/OUT US BASIC METABOLIC PANEL 2022-08-01 11:46:00 Angelina Moreira [facility] HEPATIC FUNCTION PANEL 2022-08-01 11:46:00 Angelina Moreira [facility] CBC W/PLT COUNT & AUTO 2022-08-01 11:46:00 Angelina Moreira [facility] PROTHROMBIN TIME/INR 2022-08-01 11:46:00 Angelina Moreira [facility] ALPHA FETOPROTEIN (AFP), 2022-08-01 11:46:00 Angelina Moreira [facility] TUMOR MARKER [facility] CBC W/PLT COUNT & AUTO 2022-08-01 11:46:00 Angelina Moreira [facility] REPORT OF PROCEDURE - 2022-03-08 09:57:00 Trina Perez [facility] ENDOSCOPY [facility] REPORT OF PROCEDURE - 2022-03-08 09:54:[address] [facility] TISSUE EXAM 2022-03-08 09:24:00 Trina Perez [facility] POCT-GLUCOSE METER 2022-03-08 09:14:00 Trina Perez [facility] EGD 2022-03-08 09:13:00 Trina Perez [facility] (ESOPHAGOGASTRODUODENOSCOP Medic al Center Y) COLONOSCOPY, WITH 2022-03-08 09:13:00 Trina Perez [facility] POLYPECTOMY [facility] NM GASTRIC EMPTYING STUDY 2022-02-14 15:42:00 William Jessica [facility] 4 [facility] HEPATITIS A ANTIBODY, IGG 2022-01-10 13:59:00 Ivet Barboza [facility] BASIC METABOLIC PANEL 2022-01-10 13:59:00 William Jessica [facility] HEPATIC FUNCTION PANEL 2022-01-10 13:59:00 William Jessica [facility] CBC W/PLT COUNT & AUTO 2022-01-10 13:59:00 William Jessica [facility] PROTHROMBIN TIME/INR 2022-01-10 13:59:00 William Jessica [facility] LACTIC ACID, VENOUS 2022-01-10 13:59:00 William Jessica [facility] CBC W/PLT COUNT & AUTO 2022-01-10 13:59:00 William Jessica [facility] MR ABDOMEN WITH & WITHOUT 2022-01-03 08:59:00 Luís Greer [facility] IV CONTRAST [facility] ALPHA FETOPROTEIN (AFP), 2021-12-17 15:44:00 Luís Greer [facility] TUMOR MARKER [facility] LACTIC ACID, VENOUS 2021-12-17 15:44:00 Luís Greer [facility] CBC W/PLT COUNT & AUTO 2021-12-17 15:44:00 Luís Greer [facility] COMPREHENSIVE METABOLIC 2021-12-17 15:44:00 Luís Greer [facility] PANEL [facility] BILIRUBIN, DIRECT 2021-12-17 15:44:00 Luís Greer [facility] CBC W/PLT COUNT & AUTO 2021-12-17 15:44:00 Luís Greer [facility] PROTHROMBIN TIME/INR 2021-12-17 15:44:00 Luís Greer [facility] HEPATITIS B SURFACE 2021-12-17 15:44:00 Luís Greer [facility] ANTIGEN [facility] HEPATITIS B SURFACE 2021-12-17 15:44:00 Luís Greer [facility] ANTIBODY [facility] HEPATITIS B CORE ANTIBODY, 2021-12-17 15:44:00 Luís Greer [facility] TOTAL [facility] HEPATITIS C ANTIBODY 2021-12-17 15:44:00 Luís Greer [facility] IRON, TIBC, % SAT. 2021-12-17 15:44:00 Luís Greer [facility] (WITHOUT FERRITIN) Medical Cente r FERRITIN 2021-12-17 15:44:00 Luís Greer [facility] [id number]\\, 2021-12-17 15:44:[address] [facility] SERUM [facility] CERULOPLASMIN 2021-12-17 15:44:00 Luís Greer [facility] ANTI-NUCLEAR ANTIBODY 2021-12-17 15:44:[address] [facility] (SAMIA) [facility] Center ACTIN (SMOOTH MUSCLE) 2021-12-17 15:44:[address] [facility] ANTIBODY, IGG [facility] Center MITOCHONDRIA M2 ANTIBODY 2021-12-17 15:44:00 Luís Greer [facility] (IGG) [facility] Plan of Care Planned Activity Planned Date Details Comments Source Future Scheduled 2032-03-08 Screening for malignant [facility] 00:00:00 neoplasm of colon Medical Ce [facility]ter (procedure) [code = 520695036] Future Scheduled 2032-03-08 Screening for malignant [facility] 00:00:00 neoplasm of colon Medical Ce [facility]ter (procedure) [code = 743078906] Future Scheduled 2032-03-08 Screening for malignant [facility] 00:00:00 neoplasm of colon Medical Ce [facility]ter (procedure) [code = 706260895] Future Scheduled 2032-03-08 Screening for malignant [facility] 00:00:00 neoplasm of colon Medical Ce [facility]ter (procedure) [code = 470602727] Future Scheduled 2032-03-08 Screening for malignant [facility] 00:00:00 neoplasm of colon Medical Ce [facility]ter (procedure) [code = 305151269] Future Scheduled 2032-03-08 Screening for malignant [facility] 00:00:00 neoplasm of colon Medical Ce [facility]ter (procedure) [code = 369561762] Future Scheduled 2032-03-08 Screening for malignant [facility] 00:00:00 neoplasm of colon Medical Ce [facility]ter (procedure) [code = 068678798] Future Scheduled 2032-03-08 Screening for malignant [facility] 00:00:00 neoplasm of colon Medical Ce [facility]ter (procedure) [code = 608287314] Future Scheduled 2032-03-08 Screening for malignant [facility] 00:00:00 neoplasm of colon Medical Ce [facility]ter (procedure) [code = 173569139] Future Scheduled 2032-03-08 Screening for malignant [facility] 00:00:00 neoplasm of colon Medical Ce [facility]ter (procedure) [code = 099222292] Future Scheduled 2032-03-08 Screening for malignant [facility] 00:00:00 neoplasm of colon Medical Ce [facility]ter (procedure) [code = 598494250] Future Scheduled 2032-03-08 Screening for malignant [facility] 00:00:00 neoplasm of colon Medical Ce [facility]ter (procedure) [code = 340916657] Future Scheduled 2032-03-08 Screening for malignant [facility] 00:00:00 neoplasm of colon Medical Ce [facility]ter (procedure) [code = 924807687] Future Scheduled 2032-03-08 Screening for malignant [facility] 00:00:00 neoplasm of colon Medical Ce [facility]ter (procedure) [code = 408464320] Future Scheduled 2032-03-08 Screening for malignant [facility] 00:00:00 neoplasm of colon Medical Ce [facility]ter (procedure) [code = 027759698] Future Scheduled 2032-03-08 Screening for malignant [facility] 00:00:00 neoplasm of colon Medical Ce [facility]ter (procedure) [code = 968968670] Future Scheduled 2025-05-28 Lipid panel (procedure) [facility] 00:00:00 [code = 12758918] Medical Ce nter Future Scheduled 2025-05-28 Lipid panel (procedure) [facility] 00:00:00 [code = 71232819] Medical Ce nter Future Scheduled 2025-05-28 Lipid panel (procedure) [facility] 00:00:00 [code = 57007061] Medical Ce nter Future Scheduled 2024-03-05 Screening for malignant [facility] 00:00:00 neoplasm of breast Medical C enter (procedure) [code = 673649993] Future Scheduled 2024-03-05 Screening for malignant [facility] 00:00:00 neoplasm of breast Medical C enter (procedure) [code = 884933128] Future Scheduled 2024-03-05 Screening for malignant [facility] 00:00:00 neoplasm of breast Medical C enter (procedure) [code = 254382887] Future Scheduled 2024-03-05 Screening for malignant [facility] 00:00:00 neoplasm of breast Medical C enter (procedure) [code = 922749250] Future Scheduled 2024-03-05 Screening for malignant [facility] 00:00:00 neoplasm of breast Medical C enter (procedure) [code = 842793586] Future Scheduled 2024-03-05 Screening for malignant [facility] 00:00:00 neoplasm of breast Medical C enter (procedure) [code = 945609075] Future Scheduled 2023-08-[address] [facility] Future Scheduled 2023-05-28 Urine screening for [facility] 00:00:00 protein (procedure) [code [facility] = 055328467] Future Scheduled 2023-05-28 Urine screening for [facility] 00:00:00 protein (procedure) [code [facility] = 306522786] Future Scheduled 2023-03-[address] [...] Vaccine [facility] (#1)] Future Scheduled 2023-02-28 Influenza Vaccine (#1) C [...] measurement (procedure) [facility] [code = 04371690] Future Scheduled 2022-01-[address] [facility] (procedure) [facility] [code = 44694620] Future Scheduled 2022-01-[address] [facility]00 measurement (procedure) [facility] [code = 04281891] Future Scheduled 2022-01-[address] [facility] 00[facility]00 measurement (procedure) [facility] [code = 06208987] Future Scheduled 2022-01-[address] [facility] 00[facility]:00 measurement (procedure) [facility] [code = 83472231] Future Scheduled 2022-01-[address] [facility] 00[facility]00 measurement (procedure) [facility] [code = 83824425] Future Scheduled 2022-01-[address] [facility] 00[facility]00:00 measurement (procedure) [facility] [code = 21386681] Future Scheduled 2022-01-[address] [facility] 00[facility]00 measurement (procedure) [facility] [code = 72396658] Future Scheduled 2021-06-[address] [facility] 00:00:00 [code = 13434885] Medical Ce nter Future Scheduled 2014 Lipid panel (procedure) [facility] 00:00:00 [code = 76035240] Medical Ce nter Future Scheduled 2014 Lipid panel (procedure) [facility] 00:00:00 [code = 72552713] Medical Ce nter Future Scheduled 2014 Lipid panel (procedure) [facility] 00:00:00 [code = 59147881] Medical Ce nter Future Scheduled 2014 Lipid panel (procedure) [facility] 00:00:00 [code = 92954726] Medical Ce nter Future Scheduled 1990 Screening for malignant [facility] 00:00:00 neoplasm of cervix Medical C enter (procedure) [code = 456681357] Future Scheduled 1990 Screening for malignant [facility] 00:00:00 neoplasm of cervix Medical C enter (procedure) [code = 143775773] Future Scheduled 1990 Screening for malignant [facility] 00:00:00 neoplasm of cervix Medical C enter (procedure) [code = 215810332] Future Scheduled 1990 Screening for malignant [facility] 00:00:00 neoplasm of cervix Medical C enter (procedure) [code = 172501959] Future Scheduled 1990 Screening for malignant [facility] 00:00:00 neoplasm of cervix Medical C enter (procedure) [code = 648948829] Future Scheduled 1990 Screening for malignant [facility] 00:00:00 neoplasm of cervix Medical C enter (procedure) [code = 274638642] Future Scheduled 1990 Screening for malignant [facility] 00:00:00 neoplasm of cervix Medical C enter (procedure) [code = 595618154] Future Scheduled 1990 Screening for malignant [facility] 00:00:00 neoplasm of cervix Medical C enter (procedure) [code = 016506070] Future Scheduled 1988-01-07 DTAP/TDAP/TD VACCINES (1 [facility] [...] screening Medical Cent er (procedure) [code = 940237894] Future Scheduled 1984-01-[address] Human immunodeficiency [facility]00 virus screening [facility] Cent er (procedure) [code = 190502503] Future Scheduled 1979 DIABETIC EYE EXAM [code = [facility] 00:00:00 DIABETIC EYE EXAM] Medical C enter Future Scheduled 1979 DIABETIC EYE EXAM [code = [facility] 00:00:00 DIABETIC EYE EXAM] Medical C enter Future Scheduled 1979 Diabetic foot examination [facility] 00:00:00 (regime/therapy) [code = [facility] 415076234] Future Scheduled 1979 Urine screening for [facility] 00:00:00 protein (procedure) [code [facility] = 376608634] Future Scheduled 1979 DIABETIC EYE EXAM [code = [facility] 00:00:00 DIABETIC EYE EXAM] Medical C enter Future Scheduled 1979 Diabetic foot examination [facility] 00:00:00 (regime/therapy) [code = [facility] [id number]] Future Scheduled 1979 Urine screening for [facility] 00:00:00 protein (procedure) [code [facility] = 989283245] Future Scheduled 1979 DIABETIC EYE EXAM [code = [facility] 00:00:00 DIABETIC EYE EXAM] Medical C enter Future Scheduled 1979 Diabetic foot examination [facility] 00:00:00 (regime/therapy) [code = [facility] 211662411] Future Scheduled 1979 Urine screening for [facility] 00:00:00 protein (procedure) [code [facility] = 053169664] Future Scheduled 1979 DIABETIC EYE EXAM [code = [facility] 00:00:00 DIABETIC EYE EXAM] Medical C enter Future Scheduled 1979 Diabetic foot examination [facility] 00:00:00 (regime/therapy) [code = [facility] 211196178] Future Scheduled 1979 Urine screening for [facility] 00:00:00 protein (procedure) [code [facility] = 804470673] Future Scheduled 1979 DIABETIC EYE EXAM [code = [facility] 00:00:00 DIABETIC EYE EXAM] Medical C enter Future Scheduled 1979 Diabetic foot examination [facility] 00:00:00 (regime/therapy) [code = [facility] 424217376] Future Scheduled 1979 Urine screening for [facility] 00:00:00 protein (procedure) [code [facility] = 258042041] Future Scheduled 1979 DIABETIC EYE EXAM [code = [facility] 00:00:00 DIABETIC EYE EXAM] Medical C enter Future Scheduled 1979 Diabetic foot examination [facility] 00:00:00 (regime/therapy) [code = [facility] 044082404] Future Scheduled 1979 DIABETIC EYE EXAM [code = [facility] 00:00:00 DIABETIC EYE EXAM] Medical C enter Future Scheduled 1975 Pneumococcal Vaccine: [facility]:00 0-64 Years (1 - PCV) Medical Center [code = Pneumococcal Vaccine: 0-64 Years (1 - PCV)] Future Scheduled 1975 PNEUMOCOCCAL [...] Years (1 - PCV)] Future Scheduled 1969 Screening for malignant [facility] 00:00:00 neoplasm of breast Medical C enter (procedure) [code = 097115228] Future Scheduled 1969 CT Colonography (combo) [facility] 00:00:00 [code = CT Colonography [facility] (combo)] Future Scheduled 1969 Screening for malignant [facility] 00:00:00 neoplasm of colon Medical Ce nter (procedure) [code = 738038698] Future Scheduled 1969 Screening for malignant [facility] 00:00:00 neoplasm of colon Medical Ce nter (procedure) [code = 687819729] Future Scheduled 1969 Sigmoidoscopy [code = [facility] Sigmoidoscopy] Medical Cente r Future Scheduled 1969 CT Colonography (combo) [facility] 00:00:00 [code = CT Colonography [facility] (combo)] Future Scheduled 1969 Screening for malignant [facility] 00:00:00 neoplasm of colon Medical Ce nter (procedure) [code = 675865797] Future Scheduled 1969 Screening for malignant [facility] 00:00:00 neoplasm of colon Medical Ce nter (procedure) [code = 316590127] Future Scheduled 1969 Sigmoidoscopy [code [facility] Sigmoidoscopy] Medical Cente r Future Scheduled 1969 CT Colonography (combo) [facility] 00:00:00 [code = CT Colonography [facility] (combo)] Future Scheduled 1969 Screening for malignant [facility] 00:00:00 neoplasm of colon Medical Ce nter (procedure) [code = 368497726] Future Scheduled 1969 Screening for malignant [facility] 00:00:00 neoplasm of colon Medical Ce nter (procedure) [code = 557930773] Future Scheduled 1969 Sigmoidoscopy [code [facility] Sigmoidoscopy] Medical Loc r Future Scheduled 1969 CT Colonography (combo) [facility] 00:00:00 [code = CT Colonography [facility] (combo)] Future Scheduled 1969 Screening for malignant [facility] 00:00:00 neoplasm of colon Medical Ce nter (procedure) [code = 867269995] Future Scheduled 1969 Screening for malignant [facility] 00:00:00 neoplasm of colon Medical Ce nter (procedure) [code = 795599738] Future Scheduled 1969 Sigmoidoscopy [code = [facility] Sigmoidoscopy] Medical Loc r Future Scheduled 1969 CT Colonography (combo) [facility] 00:00:00 [code = CT Colonography [facility] (combo)] Future Scheduled 1969 Screening for malignant [facility] 00:00:00 neoplasm of colon Medical Ce nter (procedure) [code = 426780495] Future Scheduled 1969 Screening for malignant [facility] 00:00:00 neoplasm of colon Medical Ce nter (procedure) [code = 238709770] Future Scheduled 1969 Sigmoidoscopy [code = [facility] 00:[facility] Sigmoidoscopy] Medical Loc r Future Scheduled 1969 CT Colonography (combo) [facility] 00:00:00 [code = CT Colonography [facility] (combo)] Future Scheduled 1969 Screening for malignant [facility] 00:00:00 neoplasm of colon Medical Ce nter (procedure) [code = 299609639] Future Scheduled 1970 Screening for malignant [facility] 00:00:00 neoplasm of colon Medical Ce nter (procedure) [code = 919969626] Future Scheduled 1970 Sigmoidoscopy [facility]code [facility]] Medical Cente r Future Scheduled 1969 CT Colonography (combo) [facility] 00:00:00 [code = CT Colonography [facility] (combo)] Future Scheduled 1969 Screening for malignant [facility] 00:00:00 neoplasm of colon Medical Ce nter (procedure) [code = 963128197] Future Scheduled 1969 Screening for malignant [facility] 00:00:00 neoplasm of colon Medical Ce nter (procedure) [code = 097609826] Future Scheduled 1969 Sigmoidoscopy [facility]code [facility]oscopy] Medical Cente r Future Scheduled 1969 Screening for malignant [facility] 00:00:00 neoplasm of breast Medical C enter (procedure) [code = 785305157] Future Scheduled 1969 CT Colonography (combo) [facility] 00:00:00 [code = CT Colonography [facility] (combo)] Future Scheduled 1969 Screening for malignant [facility] 00:00:00 neoplasm of colon Medical Ce nter (procedure) [code = 321760218] Future Scheduled 1969 Screening for malignant [facility] 00:00:00 neoplasm of colon Medical Ce nter (procedure) [code = 679842655] Future Scheduled 1969 Sigmoidoscopy [facility] Start End Encounter Admission Attending Care Care Encounter Source Date/Time Date/Time Type Type Clinicians Facility Department ID 2023-04-02 [facility] [id number] Common 10:19:00 Delma [id number] Spirit [facility] 2023-04-01 Outpatient [facility] [id number] Common 16:44:00 Delma [id number] [facility] 2023-01-31 Outpatient [facility] [id number] UT 02:28:12 [id number] [facility] 2023-01-30 [place]patient [place] [id number] UT 17:36:13 [id number] [facility] 2023-01-28 Outpatient [facility] UT [id number] UT 10:31:43 [id number] [facility] 2023-01-23 Outpatient [facility] UT [id number] UT 14:35:24 [id number] [facility] 2023-01-13 Outpatient [facility] UT [id number] UT 15:33:19 [id number] [facility] 2023-01-09 Outpatient [facility] UT [id number] UT 10:24:42 [id number] [facility] 2022-12-12 Outpatient [facility] [id number] UT 07:22:15 [id number] [facility] 2022-12-05 Outpatient [facility] [id number] UT 08:01:10 [id number] [facility] 2022-12-03 Outpatient [facility] [id number] UT 15:04:24 [id number] [facility] 2022-11-13 Outpatient [facility] [id number] UT 14:39:59 [id number] [facility] 2022-10-15 Outpatient [facility] [id number] UT 12:31:34 [id number] [facility] 2022-10-06 Outpatient [facility] [id number] UT 14:43:35 [id number] [facility] 2022-10-04 Outpatient [facility] UT [id number] UT 14:33:51 [id number] [facility] 2022-09-29 Outpatient [facility] UT [id number] UT 11:15:50 [id number] [facility] 2022-09-25 Outpatient Ornelas, STLMLC STLMLC [id number] Common 13:57:01 Shawna [id number] [facility] 2022-09-23 Outpatient Deb, STLMLC STLMLC [id number] Common 07:39:00 Urvashi [id number] [facility] 2022-09-13 Outpatient Deb, STLMLC STLMLC [id number] Common 09:56:01 Urvashi [id number] [facility] 2022-09-12 Outpatient [facility] [id number] UT 13:14:48 [id number] [facility] 2022-08-22 Outpatient [facility] [id number] UT 08:15:21 [id number] [facility] 2022-08-20 Outpatient [facility] [id number] UT 13:06:39 [id number] [facility] 2022-08-16 Outpatient [facility] [id number] UT 15:23:17 [id number] [facility] 2022-08-05 Outpatient Deb, STLMLC STLMLC [id number] Common 11:50:00 Urvashi [id number] [facility] 2022-07-12 Outpatient [facility] [id number] UT 11:38:19 [id number] [facility] 2022-07-11 Outpatient [facility] [id number] UT 10:08:58 [id number] [facility] 2022-07-09 Outpatient [facility] [id number] UT 16:26:28 [id number] [facility] 2022-06-11 Outpatient Haney, Na STLMLC STLMLC [id number] 2 Common 09:04:01 [facility] 2022-05-06 Outpatient Haney, Na STLMLC STLMLC [id number] 2 Common 14:47:00 [facility] 2022-05-01 Outpatient Haney, Na STLMLC STLMLC [id number] 2 Common 10:38:00 [facility] 2022-04-24 Outpatient Haney, Na STLMLC STLMLC [id number] 2 Common 13:41:01 [facility] 2022-04-18 Outpatient Haney, Na STLMLC STLMLC [id number] 2 Common 14:22:00 [facility] 2022-04-03 Outpatient Haney, Na STLMLC STLMLC [id number] 2 Common 16:47:01 [facility] 2022-03-20 Outpatient Haney, Na STLMLC STLMLC [id number] 2 Common 11:50:01 [facility] 2022-02-22 Outpatient Haney, Na STLMLC STLMLC [id number] 2 Common 09:27:00 [facility] 2022-01-31 Outpatient Haney, Na STLMLC STLMLC [id number] 2 Common 13:37:01 [facility] 2022-01-15 Outpatient Haney, Na STLMLC STLMLC [id number] 2 Common 13:51:00 [facility] 2021-11-19 Outpatient Haney, Na STLMLC STLMLC [id number] 2 Common 11:21:07 [facility] 2021-11-02 Outpatient Hnaey, Na STLMLC STLMLC [id number] 2 Common 09:23:01 [facility] 2021-10-08 Outpatient Haney, Na STLMLC STLMLC [id number] 2 Common 11:37:01 [facility] 2021-09-24 Outpatient Haney, Na STLMLC STLMLC [id number] 2 Common 11:59:00 [facility] 2021-09-06 Outpatient Haney, Na STLMLC STLMLC [id number] 2 Common 08:34:01 [facility] 2021-08-21 Outpatient Haney, Na STLMLC STLMLC [id number] 2 Common 11:41:00 [facility] 2021-07-25 Outpatient Haney, Na STLMLC STLMLC [id number] 2 Common 14:33:29 [facility] 2021-07-25 Outpatient Haney, Na STLMLC STLMLC [id number] 2 Common 14:24:24 [facility] 2021-07-25 Outpatient Haney, Na STLMLC STLMLC [id number] 2 Common 13:57:58 [facility] 2021-07-25 Outpatient Haney, Na STLMLC STLMLC [id number] 2 Common 13:56:51 [id number] [facility] 2021-07-25 Outpatient Haney, Na STLMLC STLMLC [id number] 2 Common 13:47:46 [id number] [facility] 2021-07-25 Outpatient Haney, Na STLMLC STLMLC [id number] 2 Common 12:48:36 [id number] [facility] 2021-07-25 Outpatient Haney, Na STLMLC STLMLC [id number] 2 Common 12:33:46 [id number] [facility] 2021-07-25 Outpatient Haney, Na STLMLC STLMLC [id number] 2 Common 12:31:18 [id number] [facility] 2021-07-25 Outpatient Haney, Na STLMLC STLMLC [id number] 2 Common 12:26:58 [id number] [facility] 2021-07-25 Outpatient Haney, Na STLMLC STLMLC [id number] 2 Common 12:09:32 [id number] [facility] 2021-07-25 Outpatient Haney, Na STLMLC STLMLC [id number] 2 Common 12:02:06 [id number] [facility] 2021-07-25 Outpatient Haney, Na STLMLC STLMLC [id number] 2 Common 12:01:44 [id number] [facility] 2021-07-25 Outpatient Haney, Na STLMLC STLMLC [id number] 2 Common 11:58:40 [id number] [facility] 2021-07-25 Outpatient Haney, Na STLMLC STLMLC [id number] 2 Common 11:57:47 [id number] [facility] 2021-07-25 Outpatient Haney, Na STLMLC STLMLC [id number] 2 Common 11:57:12 [id number] [facility] 2021-07-25 Outpatient Haney, Na STLMLC STLMLC [id number] 2 Common 11:56:42 [id number] [facility] 2021-07-25 Outpatient Haney, Na STLMLC STLMLC [id number] 2 Common 11:55:04 [id number] [facility] 2021-07-25 Outpatient Haney, Na STLMLC STLMLC [id number] 2 Common 11:32:26 [id number] [facility] 2021-07-25 Outpatient Haney, Na STLMLC STLMLC [id number] 2 Common 11:32:11 [id number] [facility] 2021-07-25 Outpatient Haney, Na STLMLC STLMLC [id number] 2 Common 11:30:56 [id number] [facility] 2021-07-25 Outpatient Haney, Na STLMLC STLMLC [id number] 2 Common 11:24:01 [id number] [facility] 2021-07-25 Outpatient Haney, Na STLMLC STLMLC [id number] 2 Common 11:16:56 [id number] [facility] 2021-07-25 Outpatient Haney, Na STLMLC STLMLC [id number] 2 Common 11:10:23 [id number] [facility] 2021-07-25 Outpatient Haney, Na STLMLC STLMLC [id number] 2 Common 11:09:28 [id number] [facility] 2021-07-25 Outpatient Haney, Na STLMLC STLMLC [id number] 2 Common 10:58:23 [id number] [facility] 2021-07-25 Outpatient Haney, Na STLMLC STLMLC [id number] 2 Common 10:57:38 [id number] [facility] 2023-04-08 2023-04-08 Office Garret, [facility] [id number] [place] 14:30:00 15:31:40 Visit Vernell BRUNER 350.1.13.58 [facility] 9.2.7.2.686 MULTI [id number] SPECIALTY 5 2023-03-06 2023-03-06 Outpatient EDUARD [facility] [id number] UT 10:30:00 10:30:00 [facility] 2023-01-30 2023-01-30 Outpatient KUMARI, [facility] [id number] UT 10:40:00 10:40:[address] [facility] Health 2023-01-30 2023-01-30 Outpatient [facility] [id number] UT 10:00:00 10:00:00 Health 2023-01-14 2023-01-14 Office KUMARI, [facility] [id number] [id number] UT 11:40:00 12:40:48 Visit ADE SE MED 350.1.13.58 [address] [place] 2 9.2.7.2.686 [id number] 6 2022-12-12 2022-12-12 Outpatient [facility] [id number] UT 07:40:00 10:00:18 Health 2022-12-12 2022-12-12 Procedure Kumari, [facility] [id number] UT 08:40:00 10:00:05 Visit Ade R SE MED 350.1.13.58 He [place] 2 9.2.7.2.686 [id number] 6 2022-12-04 2022-12-04 Outpatient [facility] [id number] UT 10:00:00 13:27:14 Health 2022-12-04 2022-12-04 Office Eduard, [facility] [id number] [id number] UT 10:00:00 11:07:38 Visit Danial [place] 350.1.13.58 [facility] 9.2.7.2.686 [place] 3 [id number] 5 2022-12-03 2022-12-03 Office KUMARI, [facility] 1.2.840.114 [id number] UT 13:00:00 14:23:01 Visit ADE SE MED 350.1.13.58 He alth [place] 2 9.2.7.2.686 [id number] 6 2022-11-29 2022-11-29 Outpatient [facility] [id number] UT 14:30:00 14:30:[facility] 2022-11-29 2022-11-29 Outpatient [facility] [id number] UT 14:30:00 14:30:00 Health 2022-11-26 2022-11-26 Office GARRET [facility] [id number] [id number] UT 15:00:00 15:00:00 Visit VERNELL BRUNER 350.1.13.58 [facility] 9.2.7.2.686 MULTI [id number] SPECIALTY 5 2022-10-23 2022-11-22 OP Therapy [facility] [id number] Memoria 15:00:00 04:59:00 Patients [place] 00 l Gilson Lebron 2022-10-23 2022-11-21 Outpatient Garret, 2.16.840. 2.16.840.1. 5 [id number] 10:00:00 23:59:00 Vernell 1.542469. 513995.3.61 00 Suellen 3.615.51 5.51 2022-11-19 2022-11-19 [facility] [id number] 08:00:00 08:00:00 Encounter [facility] 2022-11-19 2022-11-19 [facility] [id number] 08:00:00 08:00:00 Encounter [facility] 2022-10-29 2022-10-29 Outpatient KACIE [facility] [id number] UT 10:40:00 10:40:00 [facility] 2022-09-13 2022-09-14 Outpt Diag [facility] [id number] Memoria 20:51:00 04:59:00 Services Outpatient 00 l Aj Lebron 2022-09-13 2022-09-13 Outpatient Garret [facility] [id number] 15:51:00 23:59:00 Vernell Ken 2022-09-04 2022-09-04 Outpatient LAURA Antonio [facility] [id number] [facility] 12:00:00 12:00:00 Essie 61 [facility] 2022-08-30 2022-08-30 [facility] [id number] 07:00:00 07:00:00 Encounter [facility] 2022-08-22 2022-08-22 (TEL) STLMLC STLMLC [id number] Co mmon 00:00:00 00:00:00 [facility] 2022-08-20 2022-08-20 Office EDIE Vitale 1.2.840.114 [id number] UT 13:00:00 15:56:24 Visit Vernell BRUNER 350.1.13.58 [facility] 9.2.7.2.686 MULTI [id number] SPECIALTY 5 2022-08-08 2022-08-08 (TEL) STLMLC STLMLC [id number] Co mmon 00:00:00 00:00:00 [facility] 2022-08-06 2022-08-06 OFFICE STLMLC STLMLC [id number] Co mmon 00:00:00 00:00:00 VISIT [facility] 3 [facility] 2022-08-05 2022-08-05 (TEL) STLMLC STLMLC [id number] Co mmon 00:00:00 00:00:00 [facility] 2022-08-01 2022-08-01 Office [place], [facility] [id number] 10:45:00 11:15:[address] [facility] 2022-08-01 2022-08-01 Office [facility], [facility] [id number] 10:45:00 11:15:[address] [facility] 2022-07-19 2022-07-19 (TEL) STLMLC STLMLC [id number] Co mmon 00:00:00 00:00:00 [facility] 2022-07-18 2022-07-18 (TEL) STLMLC STLMLC [id number] Co mmon 00:00:00 00:00:00 [facility] 2022-06-26 2022-06-26 (TEL) STLMLC STLMLC [id number] Co mmon 00:00:00 00:00:00 [facility] 2022-05-28 2022-05-28 Historical Mane [facility] [id number] [facility] 00:[facility]00 00:00:00 Encounter , [facility] 2022-05-28 2022-05-28 Historical Mane [facility] [id number] [facility] 00:[facility] 00:00:00 Encounter , [facility] 2022-05-25 2022-05-25 (TEL) STLMLC STLMLC [id number] Co mmon 00:00:00 00:00:00 [facility] 2022-05-09 2022-05-09 OFFICE STLMLC STLMLC [id number] Co mmon 00:00:00 00:00:00 VISIT EST Spir PT LEVEL 3 - [facility] 2022-05-07 2022-05-07 (TEL) STLMLC STLMLC [id number] Co mmon 00:00:00 00:00:00 [facility] 2022-05-06 2022-05-06 OFFICE STLMLC STLMLC [id number] Co mmon 00:00:00 00:00:00 VISIT Spirit [facility] PT - CHI LEVEL 4 [facility] 2022-03-20 2022-03-20 (TEL) STLMLC STLMLC [id number] Co mmon 00:00:00 00:00:00 [facility] 2022-03-20 2022-03-20 (TEL) STLMLC STLMLC [id number] Co mmon 00:00:00 00:00:00 [facility] 2022-03-19 2022-03-19 (TEL) STLMLC STLMLC [id number] Co mmon 00:00:00 00:00:00 [facility] 2022-03-08 2022-03-08 [facility] [id number] 08:37:00 10:47:00 Encounter [facility] 2022-03-08 2022-03-08 [facility] Mariano [facility] [id number] 09:30:00 10:30:00 [facility] 2022-03-08 2022-03-08 [facility] [id number] 09:18:00 09:51:00 Event Yudith [facility] 2022-03-06 2022-03-06 (TEL) STLMLC STLMLC [id number] Co mmon 00:00:00 00:00:00 Spirit [facility] 2022-02-26 2022-02-26 OFFICE STLC STLC [id number] Co mmon 00:00:00 00:00:00 VISIT [facility] PT [facility] 4 [facility] 2022-02-14 2022-02-14 [facility] [id number] 08:58:32 23:59:00 Encounter [facility] 2022-02-11 2022-02-11 [facility] [id number] 11:48:54 23:59:00 Encounter [facility] 2022-02-11 2022-02-11 [id number] 00:[facility]00 00:00:00 [facility] 2022-01-29 2022-01-29 (TEL) STLMLC STLMLC [id number] Co mmon 00:00:00 00:00:00 [facility] 2022-01-28 2022-01-28 OL DIG E/M STLMLC STLC [id number] Common 00:00:00 00:00:00 SVC 21+ Spirit MIN [facility] 2022-01-25 2022-01-25 (TEL) STLMLC STLMLC [id number] Co mmon 00:00:00 00:00:00 [facility] 2022-01-10 2022-01-10 [facility] [id number] 12:30:00 13:00:[address] [facility] 2022-01-03 2022-01-03 [facility] [id number] 07:54:07 23:59:00 Encounter [facility] 2022-01-03 2022-01-03 (TEL) STLMLC STLMLC [id number] Co mmon 00:00:00 00:00:00 [facility] 2021-12-19 2021-12-19 (TEL) STLMLC STLMLC [id number] Co mmon 00:00:00 00:00:00 [facility] 2021-12-17 2021-12-17 Office Aracely, [facility] [id number] 14:00:00 15:00:[address] [facility] 2021-12-10 2021-12-10 (TEL) STLMLC STLMLC [id number] Co mmon 00:00:00 00:00:00 [facility] 2021-12-06 2021-12-06 OFFICE STLMLC STLMLC [id number] Co mmon 00:00:00 00:00:00 VISIT Spirit ESTAB PT - [facility] LEVEL 4 [facility] 2021-11-21 2021-11-21 (TEL) STLMLC STLMLC [id number] Co mmon 00:00:00 00:00:00 [facility] 2021-11-19 2021-11-19 (TEL) STLMLC STLMLC [id number] Co mmon 00:00:00 00:00:00 [facility] 2021-11-19 2021-11-19 (TEL) STLMLC STLMLC [id number] Co mmon 00:00:00 00:00:00 [facility] 2021-11-19 2021-11-19 OFFICE STLMLC STLMLC [id number] Co mmon 00:00:00 00:00:00 VISIT EST Spir it PT LEVEL 3 - [facility] 2021-10-24 2021-10-24 Outpatient FERGEOVANNA_MILDRED AGUILAR NCRILEY [id number] [place] 04:35:00 04:35:00 HN da [facility] 2021-10-17 2021-10-17 (TEL) STLMLC STLMLC [id number] Co mmon 00:00:00 00:00:00 [facility] 2021-10-09 2021-10-09 OFFICE STLMLC STLMLC [id number] Co mmon 00:00:00 00:00:00 VISIT Spirit ESTAB PT - CHI LEVEL 4 [facility] 2021-10-01 2021-10-01 (TEL) STLMLC STLMLC [id number] Co mmon 00:00:00 00:00:00 [facility] 2021-09-27 2021-09-28 Outpatient [facility] [id number] [facility] 12:32:00 04:59:[address] [place] [address] 2021-09-27 2021-09-27 Outpatient Gogia, MHSE MHSE [id number] 07:32:00 23:59:00 [facility] 03 2021-09-27 2021-09-27 Outpatient GOGIA, MHSE MHSE [id number] MH 07:32:00 23:59:00 [facility] 2021-09-10 2021-09-10 OFFICE STLMLC STLMLC [id number] Co mmon 00:00:00 00:00:00 VISIT EST Spir it PT LEVEL 3 - [facility] 2021-09-04 2021-09-04 (TEL) STLMLC STLMLC [id number] Co mmon 00:00:00 00:00:00 [facility] 2021-08-21 2021-08-21 (TEL) STLMLC STLMLC [id number] Co mmon 00:00:00 00:00:00 [facility] 2021-08-21 2021-08-21 OFFICE STLMLC STLMLC [id number] Co mmon 00:00:00 00:00:00 VISIT EST Spir it PT LEVEL 3 [facility] 2021-08-20 2021-08-20 (TEL) STLMLC STLMLC [id number] Co mmon 00:00:00 00:00:00 [facility] 2021-05-21 2021-05-21 (TEL) STLMLC STLMLC [id number] Co mmon 00:00:00 00:00:00 [facility] 2021-05-21 2021-05-21 OL DIG E/M STLMLC STLMLC [id number] Common 00:00:00 00:00:00 [facility] 11-20 Spir it [facility] 2021-05-16 2021-05-17 Outpatient [facility] [id number] [facility] 18:45:00 05:59:00 r Bernardino 01 [facility] 2021-05-16 2021-05-17 Out[place] [id number] [facility] 18:45:00 05:59:00 r Bernardino [address] [place] [address] 2021-05-16 2021-05-16 Outpatient Gogia, MHSE MHSE [id number] 12:45:00 23:59:00 [place] [address] 2021-05-16 2021-05-16 Outpatient GOGIA, MHSE MHSE [id number] MH 12:45:00 23:59:00 [facility] 2021-04-05 2021-04-05 OFFICE STLMLC STLMLC [id number] Co mmon 00:00:00 00:00:00 VISIT [facility] LEVEL 4 [facility] 2021-03-08 2021-03-08 Outpatient STLMLC STLMLC [id number] Common 00:00:00 00:00:00 [facility] 2021-01-29 2021-01-29 Outpatient STLMLC STLMLC [id number] Common 00:00:00 00:00:00 [facility] 2021-01-17 2021-01-17 Outpatient STLMLC STLMLC [id number] Common 00:00:00 00:00:00 [facility] 2021-01-03 2021-01-03 Outpatient STLMLC STLMLC [id number] Common 00:00:00 00:00:00 [facility] 2021-01-02 2021-01-02 Outpatient STLMLC STLMLC [id number] Common 00:00:00 00:00:00 [facility] 2020-12-04 2020-12-04 Outpatient STLMLC STLMLC [id number] Common 00:00:00 00:00:00 [facility] 2020-11-16 2020-11-16 Outpatient STLMLC STLMLC [id number] Common 00:00:00 00:00:00 [facility] 2020-11-06 2020-11-06 Outpatient STLMLC STLMLC [id number] Common 00:00:00 00:00:00 [facility] 2020-10-03 2020-10-03 Outpatient STLMLC STLMLC [id number] Common 00:00:00 00:00:00 [facility] 2020-09-28 2020-09-28 Outpatient STLMLC STLMLC [id number] Common 00:00:00 00:00:00 [facility] 2020-08-24 2020-08-24 Outpatient STLMLC STLMLC [id number] Common 00:00:00 00:00:00 [facility] 2020-08-17 2020-08-17 Outpatient STLMLC STLMLC [id number] Common 00:00:00 00:00:00 [facility] 2020-08-11 2020-08-11 Outpatient STLMLC STLMLC [id number] Common 00:00:00 00:00:00 [facility] 2020-08-03 2020-08-03 Outpatient STLMLC STLMLC [id number] Common 00:00:00 00:00:00 [facility] 2020-07-31 2020-07-31 Outpatient STLMLC STLMLC [id number] Common 00:00:00 00:00:00 [facility] 2020-06-26 2020-06-26 Outpatient STLMLC STLMLC [id number] Common 00:00:00 00:00:00 [facility] 2020-06-20 2020-06-20 Outpatient ANISHA_MILDRED AGUILAR NCRILEY [id number] [place] 10:21:00 10:21[place] [id number] da [facility] 2020-06-15 2020-06-15 Outpatient STLMLC STLMLC [id number] Common 00:00:00 00:00:00 [facility] 2020-06-14 2020-06-14 Outpatient STLMLC STLMLC [id number] Common 00:00:00 00:00:00 [facility] 2020-06-12 2020-06-12 Outpatient STLMLC STLMLC [id number] Common 00:00:00 00:00:00 [facility] 2020-06-07 2020-06-07 Outpatient FERGUSON_MILDRED AGUILAR [facility] 112 [place] 03:50:00 03:50:00 [place] [id number] da [facility] 2020-06-01 2020-06-01 Outpatient STLMLC STLMLC [id number] Common 00:00:00 00:00:00 [facility] 2020-05-29 2020-05-29 Outpatient STLMLC STLMLC [id number] Common 00:00:00 00:00:00 [facility] 2020-05-08 2020-05-08 Outpatient STLMLC STLMLC [id number] Common 00:00:00 00:00:00 [facility] 2020-05-04 2020-05-04 Outpatient STLMLC STLMLC [id number] Common 00:00:00 00:00:00 [facility] 2020-04-24 2020-04-24 Outpatient STLMLC STLMLC [id number] Common 00:00:00 00:00:00 [facility] 2020-04-20 2020-04-20 Outpatient STLMLC STLMLC [id number] Common 00:00:00 00:00:00 [facility] 2020-04-19 2020-04-19 Outpatient STLMLC STLMLC [id number] Common 00:00:00 00:00:00 [facility] 2020-04-18 2020-04-18 Outpatient STLMLC STLMLC [id number] Common 00:00:00 00:00:00 [facility] 2020-04-17 2020-04-17 Outpatient STLMLC STLMLC [id number] Common 00:00:00 00:00:00 [facility] 2020-04-11 2020-04-12 [id number] [facility] 14:07:00 04:59:00 r Anderson 00 l [facility] 2020-04-11 2020-04-12 [id number] Memoria 14:07:00 04:59:00 r Bernardino 00 l [facility] 2020-04-11 2020-04-11 Outpatient Gogia, MHPL MHPL [id number] 09:07:00 23:59:00 Ja 00 2020-04-11 2020-04-11 Outpatient GOGIA, MHBL MHBL [id number] MHBL 09:07:00 23:59:00 JA 2020-01-26 2020-01-26 [facility] [id number] Common 14:36:00 14:36:[address] [facility] 2020-01-24 2020-01-24 [facility] [id number] Common 13:45:00 13:45:[address] [facility] 2020-01-19 2020-01-19 [facility] [id number] Common 08:40:00 08:40:[address] [facility] 2020-01-18 2020-01-18 [id number] Common 15:20:00 15:20:[address] [facility] 2020 2020 [id number] Common 14:44:00 14:44:[address] [facility] 2020 2020 [facility] [id number] Common 09:39:00 09:39:[address] [facility] 2019-12-24 2019-12-24 [facility] [id number] Common 17:41:00 17:41:[address] [facility] 2019-12-21 2019-12-21 [facility] [id number] Common 09:20:00 09:20:[address] [facility] 2019-10-27 2019-10-27 [facility] [id number] Common 14:08:00 14:08:[address] [facility] 2019-10-13 2019-10-13 [facility] [id number] Common 11:40:00 11:40:[address] [facility] 2019-10-04 2019-10-04 [facility] [id number] Common 08:00:00 08:00:[address] [facility] 2019-08-26 2019-08-26 [facility] 29 [id number] Common 09:30:00 09:30:[address] [facility] 2019-08-25 2019-08-25 [facility] 29 [id number] Common 11:51:00 11:51:[address] [facility] 2019-08-24 2019-08-24 [facility] 29 [id number] Common 14:40:00 14:40:[address] [facility] 2019-08-17 2019-08-17 [facility] 29 [id number] Common 11:59:00 11:59:[address] [facility] 2019-07-05 2019-07-05 [facility] 28 [id number] Common 16:00:00 16:00:[address] [facility] 2019-06-22 2019-06-22 [facility] 28 [id number] Common 11:53:00 11:53:[address] [facility] 2019-06-22 2019-06-22 [facility] [id number] Common 10:22:00 10:22:[address] [facility] 2019-05-24 2019-05-24 [facility] 28 [id number] Common 10:00:00 10:00:[address] [facility] 2019-05-05 2019-05-05 [facility] [id number] Common 15:44:00 15:44:[address] [facility] 2019-05-04 2019-05-04 [facility] 28 [id number] Common 15:20:00 15:20:[address] [facility] 2019-04-27 2019-04-27 [facility] 28 [id number] Common 17:18:00 17:18:[address] [facility] 2019-04-26 2019-04-26 [facility] [id number] Common 17:24:00 17:24:[address] [facility] 2019-04-20 2019-04-20 [facility] 27 [id number] Common 08:27:00 08:27:[address] [facility] 2019-04-12 2019-04-12 [facility] [id number] Common 11:00:00 11:00:[address] [facility] 2019-03-30 2019-03-30 [facility] [id number] Common 14:00:00 14:00:[address] [facility] Results Test Description Test Time Test Comments Results Result Comments Source RADRPT 2022-09-14 01:24:04 Test Item Value Reference Range Interpretation Comme nts RADRPT (test code = RADRPT) EXAM: MR LEFT HIP WITHOUT CONTRASTDATE: 09/13/2022 17:05INDICATION: - M25.559 Pain in unspecified hipCOMPARISON: None.TECHNIQUE: Multiplanar, multisequence MR noncontrast imaging of the hip.FINDINGS: LABRUM: 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 Visualized bone marrow signal is normal. Bilateral mild degenerative changes of the sacroiliac joints.SOFT TISSUE: Moderate left and mild right greater trochanter soft tissue edema. No abnormality of the visualized neurovascular structures.IMPRESSION: 1. Moderate left and mild right greater trochanter soft tissue edema.2. Bilateral severe atrophy with mild edema of the quadratus femoris muscle.3. Moderate right and mild left common hamstring tendinosis. [facility] FETOPROTEIN (AFP), TUMOR [id number] 14:04:30 Test Item Value Reference Range Interpretation Comments ALPHA-FETOPROTEIN (BEAKER) (test code < ng/mL <10.0 = 1094) [employer] Tender ID - TRUNG BCBC W/PLT COUNT & AUTO [id number] 13:43:39 Test Item Value Reference Range Interpretation [...] (BEAKER) (test code = 2801) BASIC METABOLIC [id number] 13:42:01 Test Item Value Reference Range Interpretation [...] eGF R is based on the CKD-EPI 2020 equation that d oes not use a race coefficientEsti mated GFR is not as accur ate as Creatinine Taylor daily in predicting glom erular filtration rate . Estimated GFR is not appl icable for dialysis patien ts [employer] Tender ID - TRUNG BHEPATIC FUNCTION [id number] 13:42:01 Test Item Value Reference Range Interpretation [...] (test code = 31 U/L 6-55 347) [employer] Tender ID - TRUNG BPROTHROMBIN TIME/[id number] 13:24:39 Test Item Value Reference Range Interpretation Comments PROTIME (BEAKER) (test code = 13.6 seconds 11.9-14.2 759) INR (BEAKER) (test code = 370) 1.11 <=5.90 RECOMMENDED COUMADIN/WARFARIN INR THERAPY RANGESSTANDARD DOSE: 2.0 - 3.0 Includes: PROPHYLAXIS for venous thrombosis, systemic embolization; TREATMENT for venous thrombosis and/or pulmonary embolus.HIGH RISK: Target INR is 2.5-3.5 for patients with mechanical heart valves.Urine Culture, [id number] 00:00:00 Test Item Value Reference Range Interpretation Comments Urine Culture, Routine (test Final report A code = 630-4) Tissue [id number] 18:40:02 Test Item Value Reference Range Interpretation Comments Case Report (test code Surgical Pathology = 104) Report Case: [id number] Authorizing Provider: Trina Perez MD Collected: 03/08/2022 09:24 AM Ordering Location: [facility] Received: 03/08/2022 02:08 PM SERVICES Pathologist: Pinky Kumar MD Specimens: A) - Biopsy, Gastric, Bx B) - Polyp, Colon - Transverse, cold snare DIAGNOSIS (test code = k8yniPYyYKAdd3lgWKBlaB 3220) FuZzEwMzNcZnRuYmpcdWMx IHtccnRmMVxlcGljOTYwMl mrpeBpKIIbxCJaJ2Ldyarm USsxUY8hQK6oaOqouHAyoS IkGMVuYaFgw1gkv895zKTv z1wxBOBAwwzvxDa4xYonX0 9il1Z4EpugX29ugGAhFAW1 NUJjDIRdpJKgDMAgTCE1KI QbwSAfS4tqRQCvDZ8fwscn JLsnKBicRQDcgYF1MUQtvL BfZ4VjNDRwUFjvHSKmdbb4 SlUdTb6ctKVdbBgtXUhjLT JhQGKrHDnqXIOqHsHdIP9e J5VHZQTXXABWJB2DY1ahaJ PxBG9kWXUPIZLIEiiFKWoI USUQGEISGCeZB9QFQBMUVl nmNCkSUImhQKKtNYQoSE1A IElOVEVTVElOQUwgTUVUQV PPDIVPHVrxDSxTGNtOR1eM TQ8VYACTQhJZUs7ICIMQFU VOVElGSUVEXHBhciAtICAg Uh1gTWLUMBVJXtJAZAXECE MXPN9TTKJDZJgYJX9OE8DN SVNNUyBJREVOVElGSUVEIE 9EJKVBDJTGVaIdD9CNGG5l zTViKJTbibXCMtUUE9eLQr wiNIBOFlUZFVPDMBCJV4aX FgAHN8dYGGdhHM4WUYCUF1 AYCUqpeQSkWT2mGCHVO1qH OR8BBIDETFJFI1PZFVSDQX aVWX8GUWmBNCfjCd4oCTmL C23JB3RLZbLEVVAKO91XCB 9VUyBPUiBIWVBFUlBMQVNU MFUhU9sZBseWC6rvVLXeMG PmAN91eEYavFvxZKmpemLj bmL4RWKuMYM8MG1hkiGwPY QhoBCrcNfbqfQnFJndk0Dt APzuAUHnMU4bjPqqNVImFU 8xBGQqR3iuaG2yasn3IrPm FMUsPhF1TANmxjT1Zcw8GA DpJRgev8ylt3XbTRMmROj3 aPyuSpLkJEBrl7xdeuGtUl WoMAPqNRWtFEWaqUNzP184 d9chy9fmedNtgIF9FJDkQC C3ZRsvpnGguuD5ZAtrbRMi PnN4XOeqoqPlVLcsxwUcqt HmJil0LBGpI945AGZ9aLgd t1rmITF9PJVzXVGnTbCnGc 1hsGQgI842NXFqESXLCSUg yEs9UHAastSrmjPztDLNz9 70B066y6lkKUWzbfCveNoP huqim1tbB605UFGngZEbxa WpQgFuSTBagDYgbJQ2EGPq EK9oeispFXfiWZzvEFAqpa O4XFYtiHKpO7QuUNEjYU1e jjplDHN7VBrxXXNzBRP0Va RwKGPzg0Ekheq4ApLsrf9f yv60VBC4r3PmiKfhXDL8JG Y3XkMiDm5npXIbMDNjDV1l OiGtwOPaAGQrga28mVqzQC wjHIX3FQCohgIgn9Bxs1ju NyHhrvPaZ5yyI0NgLSFbVY ZsFHAjDdJnqeQkw9Hzk4Sf gYVleCz6n9reGAYbWJHttP txf5uzXUQ7ZIKttSWnX7yj fC1zOTWvZY0dxxeht8xnXX fnKRnqGQUfeWV4ptN7XUKw cYXaN6SjiV7xDPKgTIkjLO Mugqz3SsYyTl0xsIMggYpb MFxzYmtwYWdlXHBnbmNvbn RccGduZGVjXHBsYWluXHBs YWluXGYwXGZzMjRccWxcbG FuZzEwMzNcaGljaFxmMVxk TyEeTCNqAZmgJ7enSnQcZg MjDir3FQJisELwVUNjZef5 JSTrlMLyRPKZzYbswK3xPQ IqoAnwkO2sfRK6WNTbluOm bCTDbB2lXEKDmB7vAoU9Go JvIjP7QZn1NpNzlINamR0= CPT Code(s) (test code z0augZBuVJJufAZ9LzQvYD = 3357) Ges1bkl4FpcOFytZXrBHth cONjxtGlvw64kPY4sT11VW 8zQQBrObR3TDSxvlR0Btd1 ZUHaVEBkmGLvD981q8bvx2 filcMohZO7tLjkFXIlklxw XnB7AKuxWGFjrjxhTQd2FC ekWARphYM4WCQgzURdV8Dr MAVtPJ5zqrs7CIT6MBncUJ LmIeP0OFBziBJfRUGnjRjv KKiex971YKY4KcPtNMHrtk InvVitbO0pBvUzUDY8CZQv NSBYIDJccGFyfQ== CLINICAL HISTORY (test q4cuuQBnWVAdqHZ9ZjDeJS code = 3356) Ukv3nys8ZfyKBkcATeERyz iGQzhuLwcd38oOL9mG13GE 3qIGRiReI4TEDpldC9Ynz8 XEVsXQBswTEqQ989p3pel3 fjpxEnsPJ3OVMtUAGbU5Aq KS9nOWEecTAnP15ujHPmTI T6WJXfNGEvsMIgROZgKSP0 DGFcyCToC6tvOKIbRC5vxr lwMJwxUXuhZIMzuXP4AUCx jUWcY5KuBIXiCZqzXJQlgb w1GcPbXx8boINouDosEXtz YXJkXHJpMVxwbGFpblxmcz CxAQQhFWOIq03geKFvZOIr ZNRgeftuZPZyz6y6qK94aS OrxWNqQViyWeipfS8afZVo qUWfEXNbTHJpwXxhP5KrzJ O7FMVvZ4ShLRO6lVGnHAOq mrZYpCYfhJ4bmJTuj0KpzY j4WOPvq2t9qX95bUNam9Tu sMNyKUP5tpSbMAFpVgngYP UaPTWtvCkbPVZthvHif4Nc mbM3cEAzYRiwAGFrW2EsKI FeIVTapcJuq5dlmcHsQI7o ZXJccGFyfQ== SPECIMEN SOURCE (test m8xtnHIiIOVyiET6WzMnKQ code = 3377) Vmz5iws5EwtVNjxUSgPZix gCAulrTxzv60nJV7fT55PE 6hBLMsAbN1QECovoM7Njv6 LETuNXGmaNMoM397u8hcc1 xfoxKxrGC9aKdvPLOylpyj LjQ3QXpeZJMwyreqUQq6DA avAKBjoJS5IXFufSGhE3Pa OTTpIG0wpsg8IPC9ZPipJT OjCnX1UBBxqASyCSXxhUzo ZKuvw501LZL8OqAjGJUwxx LywUsptU3vBbYbLFVERyEb LvoilTB1RHQfNJL9kiqfKW vchdLwIr2eEGYhiPyqAXWm g4zlpmttcFYifrQ1FFSyKP xwYXJ9 GROSS DESCRIPTION (test b3haiORhHVAcpVIOTTKhN6 code = [id number]) prolYzMLAetOIwC8Hiejxz ZBwrNE8iCU3rgCnvrWFhkX DdCA9LSFXkUjMzHDSewMCq euWwGePrTFWprFXnhBF5PS SkUI2kuboqNDmwJKbvVUPk qiW4EMZdyJGqA4QzDDAlDB 8lkptbQPZ5EJoxfZ2qhvXW JdlhHg9fiOTowWsfJxMvRc NoYXJzZXQwXGZuaWwgQXJp HCo1sJ2FTizpIVD2KSWMPh xsATSlDF8Pq2icQMQtoUUm BGG3OEsdpBPoFRTjDDPbRL x8KJTyDRdyuUKyNK4obTmf JnrkyQwzi3VotXLmZBaxAF GfEYWdQNgqWZQdAN8APwLb CAU7HyK5UNJkPHv0JNk0VO 9WUyAiICAzMDAzOTQxMSIg PQt9FQzfUV9JZKHfLIXxHW B3IqN0SJU4TSFuUICcFtDq XGYgQXJpYWwgXFxmbCBcXG 4wrBdvgYQwzhJCXoJNeG6z q0eoDHoon4BpmGXoDJNnkd ANClxlcGljTmVzdERvYzEg DQpcbHRycGFyXGxpbjBccm luMCANClxsdHJjaFxmczIw DFLtRBAjmZTerU3ahqSqni ItUDEewTWdWYVrihBhj6Zw VRteayFrMMPckUllUDI8sD LxMVUjLXBgTUPsQS91QPoY NHMgbmFtZSwgbWVkaWNhbC ByZWNvcmQgbnVtYmVyIGFu AJIzM7YweUEgBsHraF9zc0 hhYDItXWJhw00cgPY3xvFx WpJ0JDZmay6mpX5aIC18N4 9uLJ1rw4FqmaCgAVDjv8P0 ZSBmcmFnbWVudHMgKGZyb2 6aGF4sISBvPDUsDPKoWkRq bSBpbiBncmVhdGVzdCBkaW 0modXaw19nXgYXgCEnk9Bp E8tnMW5ngWKqg3SpgMq4jT GbTXziIZKuiM7wOl3ulB60 wN2mGMChmMYqAKPgi15faG 7fL4Eqv4N3vYUbHREnFCIx ciANClxwYXIgDQpLTCAocm VzaWRlbnQpXHBhciANClxw bGFpblxlcGljTmVzdERvYz AhpJpcsE98DIZkgTPpTTP4 DO7yBDRrziujUUDuQWZcZY H5TWgokA83fIVvWIClRZEa tTXtiU8Hn4qkSQJzaJYjPJ H1UIzgaDPzSGHrCUMiUOfe UoXiR3AWHDPxOeb9JNh7Fj LaREf0DIwmQ9WNQHUzXPUx NBT4PEGqVhQ6QLb6VCBWKz 7rCnOkLzO4QTO7EWO8FAbu IFxcdCAyIFxcZiBBcmlhbC EqMDQmEZkstuS0KOIpMEEj rQwsyT3kMs2yLT4exJKaPO AwqY5uNT2uRQKxopF3MQKg BY5eeILdDL0WOEEajHTZTH X4HV1tWJCELvlzfNFaTWPn nBbgODpvbH9uDR7ZTSm2al NoXGZzMjAgVGhlIHNwZWNp wOKiPRbxQKRwT2DukhSaVN xoJPNdmh5arIdgRIhcToKs bGVkIHdpdGggdGhlIHBhdG mkbvIaE7H8jeRkVP5rLZRo TXIwO1UaWDZfM91hRHNeoM 0bMCSlZW0lMNU9tkVpr0Xm cnNlIHBvbHlwIiBhbmQgY2 1ez8rkiJLbs4KiOML0OO6c gJnqgwRpaAKzn3IiI595WU JaALF0eWXotGBtRyUiH79e szZfBZfoQbVsN81uhP5qK2 CnXFVcf8EqNXtiUI0vxW1q ZT9jHKxgXTBzJNZzqJHfKP zjDTM7Mk2zmKEqTPXazrE4 v5NkPEOnyGrmy3gnGeVqtV j1efO5mW5zXBjdMJZfu9Ka dHRlIEIxLlxwYXIgDQpccG ZhZW0QO9lcJIZwe9ztZF10 AMrzBDVcNTdbkNyepA6lUL WlH32yp9CJa6GiCGIsEUzw e2dhdRefo6JqoRMiBIwbGQ SchUAhMFimyD5nCfWni5uv cUs3DAhilfS2VRSjfu3THl kxiA0kPaFal0ntaOy6SGUL TfdodrQ2r7cvwGplq8HjlU WmCE7TVz8= MICROSCOPIC DESCRIPTION v1krrEDlOAAnxUW0OtFdPJ (test code = 3371) Dcc8zgy2TguPBjhZAbXIgs yZQmvrBehg60yLA2hR63EB 8eOHYjNkS9FBDlszW0Aun6 EJLtIGVqlSHaK496l7kre0 adlrZvmRP5jNbwLNGqmtdh IyM7BDaiZCJvylvuBOv1BE mmVNChtVE6SQMuoCEkA8Is UHGjAW6asyq5ZJN4FAphGS FaWzU2LSUywLYcSPKyaRbz EFxdm854CDR9XpRrFDYklc LadKxzkA2wUrOcOKWHCRRq h6GxIZVdDAMzhv6= Gross assessment was [facility] performed at (test [facility], = 2777) Department of Pathology, [address] [place] [id number], Technical component was [facility] performed at ([facility], = 2778) Department of Pathology, [address] [place] [id number], Professional component [facility] was performed at (Psychiatric, code = 2779) Department of Pathology, [address] [place] [address], [id number] 18:40:02 Test Item Value Reference Range Interpretation Comments Case Report (test code Surgical Pathology = 104) Report Case: [id number] Authorizing Provider: Trina Perez MD Collected: 03/08/2022 09:24 AM Ordering Location: [facility] Received: 03/08/2022 02:08 PM SERVICES Pathologist: Pinky Kumar MD Specimens: A) - Biopsy, Gastric, Bx B) - Polyp, Colon - Transverse, cold snare DIAGNOSIS (test code = i4goqXSgWIYli6ctIBJtwC 3220) FuZzEwMzNcZnRuYmpcdWMx IHtccnRmMVxlcGljOTYwMl mqhyUwQBRldJNxG6Swuccg NXymHZ5rGT9neUbqwSOiiS YhUYTwDfUmc2udh913iGTj t0brONMEcwhacRn7wNrwZ8 2iy6Q3FmhoH31lhIXrOHT2 HKNkIFKefEFbBZWeHAS9LG LexLDbZ7upICBjZV6whgbf QHvqSQfdXBRkhPI2ZRPubK JvE6LvGBWkRThgLOChsil5 DyXeCw8pdFRgqTkaMHuyZX AuMMTqWFqaTULhMvCcTF6i M0VPPIYKHQDROX3RU6pdyU LgIW2bKBECJFFTSmtDDNhU OITUBQLIACgZE4LSNDTKAv jxRHhAKWsvUJXxZCIeYS6G IElOVEVTVElOQUwgTUVUQV DVTRJQOLdpWYkICRaJD3kE BQ0PMQCTYmBMIh5PQMVIWZ VOVElGSUVEXHBhciAtICAg Bl3hJGTVOTVRBmFRXJBCEN CIBT9AKUGFUOzHQF5RX3MN SVNNUyBJREVOVElGSUVEIE 1GMPOGTLTSBbKaA3ZPQR9m fDUlAYPqklTEPiHQL6tEOp caOJCULxXZLKBNVPRWC1iY ScYNN5xZQAyyQK5UQNGSV7 OMMOgkgVNoEN5dXYVNY0gV CA0QYKHZYKVJO8MKEBPATL yVTB4TDVvJWRtjHr3uWUnM D51HU6LHSsGFZNMVF95RYW 9VUyBPUiBIWVBFUlBMQVNU TBZbD7fKHglRB5aaYPAtKE UoJM50sXUeqTmcBAhqzfJa yfF2QMDtEKL3KI4bvfGmDC IbrZTqhCngtgKrDWztb6Le CExaTBEqMY4loBauSEPjKU 8eFDWsY7bcqN2fvmk9HhUp CEXxSrY0XIEcdnQ7Rci5LS OtWSpxn9jdv5GsQRBmZMm3 eObsSvTiDDXkv7argqHsLn UkIYEtUPBkSUFmsBKeY954 a6ukz4pgmjUzhQR6QQPeGZ R7YEcnfaWocrH7WYkjdFEx JlP5YPaixaMlDFmnexOnmy QiVpb0JKAqE217UXV7iLli z0vdZMN9CPAaLLAjLqZnGt 2iqFArC117DEVkYVBZYURm qCa0ZPOcwqEjrwJdaXDLc3 12Y010v3vcDZKdskGvfQlI ksqye6emK881FLRpyAKjhr NvOiHtBYOcwOVatGW2NGKs LY9vrklmJYpbKIreYLGssh Z0HDWuhSSyL1TcNMFvBJ8c lkzrHWH5SSarNGCfJLX8Kc IjUCYfv9Ikaif7NyKnjn3g yo73HBN4k9BhxGpuGTF9XT F9HvSwUz2vrOOtABVpTO2q WvAoqIXwWJXoun08wLcvAP ikJVZ1FQRjzqSti8Vna9cf JpAwrdVqG9ssQ7NhNENdRP DxMACdVdAefnHsz1Vmi0Zk rSPkrCz2g7blQUCeTJFgyQ gqo8wiJSQ6WVXgsSCvI7up jJ3jPSLyMC8owfbbp3kbSG xvLMjqTBHqlDD6cnN7DTAh lPYiI7DymH1gEAPtPJynKG Fwzyj7GnRlHo6ovQDgmFhh MFxzYmtwYWdlXHBnbmNvbn RccGduZGVjXHBsYWluXHBs YWluXGYwXGZzMjRccWxcbG FuZzEwMzNcaGljaFxmMVxk YtGeDQAaPMrcB6hkXvLkBa YoYnv7JVIecGWfJTPyBeb2 SXFomVNdKKOEcIhmyP8eLX CfsTjowN1xoAR7RSXxnhXa tXKZvB8sJSMFuL8kHeT1Xt CzBpM8CQs2PxTrrMQhqL9= CPT Code(s) (test code m2oaxBEgUEXioVE6UuXtCD = 3357) Tlo9lgg0YrzVLobNZiXWfn hYMkfdEkhm55bGA8kA59AM 8yLFEgVwU4LTGzecG9Ayx4 IMRmXNRztIOlT067l0zgz8 qidfNxiFX0cMwbCBJcwtlq BwY6ENclMEYnhmdfJXi2LM lfWBYwaVV3BVGdySWsQ0Cc GDElUN8hmcz7PQH9GJyuSR IwKlJ8JADpdEJaIVFvlCic KKhkt836AZM8KmEwYRMhcy IflUlniP5eTpKiMDA8YFXv NSBYIDJccGFyfQ== CLINICAL HISTORY (test n0dugBKaPDSpnEG5BzAnPL code = 1210) Jie6nzr2MiuKWxeGVeGHux wYKvpbUpqa72wCR8nX33DQ 3pJCMrArR4UBCjesW6Wrv3 RGDhTBIbsDRqT283m9gpq4 gefoSshND5RQJjHUJbJ6Ug BX7aLNTqrJIuK90kbZHtZT Z3HIQnCAPucEXhWHPlKXH2 SZMcfQYiM0vqRGIqSS3wrr smULyiNPprCKQlfSA8IPIf eGIwQ9MjIXWlZHaxSJNhsg t8YvZyXg3teNBnbWsfYUih YXJkXHJpMVxwbGFpblxmcz HrIZKrKFMHk61swJWyXLGi YUKlpnpaZEWgr1c7hT71mG IdkTFiMTfhLudmfK1uhBYj xJQaSKYvXJSnpFiwT0CyuJ Y8LCBgM9YaHSE1eKZuYERn lpMCmAIryA4kzJVzd0QomX l9BVSbq2s3oD81fIBnl3Wr dLDkNJD9jlIxWDEaNdbiWL CkOVVehNhbPCGlxaFsz7Tx niW9vRIhJLycKAHcD5ArLX FfPEMddtQnq2yzdqBdPG4x ZXJccGFyfQ== SPECIMEN SOURCE (test j3udeVVrJMAarWJ7EqOvER code = 3377) Iig8dey5HjzPEwyAPvDOjz oETruxLtnf29jYK8qN10EN 9qLXOrScR7HTMyprX1Wgz0 IFToTBJyuFCsB357u2fle9 pnfpPmoAA3wBxySAFuxtgi DxS3DPlxIKIinbjiLSi2RD tsODWhlSR4CEUiqWTqN2So QXHrDE0hxcq5KVR5EIpgHC YqXrU0EMXgvQWhVRSpqHgi XOwnv829DVH2QkTvYBLdca DuiHenvR8bXhAtLWHCZmYg MpyfuZS4YAMjFSO7snhaYW yeuwXgNf2bQNHcmMfaQXDi o9ginrotvEGicrQ7UZDsCP xwYXJ9 GROSS DESCRIPTION (test x1tsvXDwZZEvdQGJEJZmP5 code = [id number]) njlaZqIXWiyJLzV7Hudycs JAumBS0tCI0qwPfajSBggR YjIM7DCKZpUmAqFUMhtSXw suHpSaQiOMDimKAcvZX4JW CpUA8zdhxgKAakEJwfVGCc cyX8MUVpfQSuX1AsNPWpRV 8hrwbuNFY2BEkweV7szyDL FxhbYf0hhDEgtLifQtKnPi NoYXJzZXQwXGZuaWwgQXJp DEt5sP0UMtueKWK8BFOJWl xkNZWnMN6Hg1eaCLVdhZIj EWX9MDvunZEiTUKdROTsUZ a1KRSoQCzajBOnNC6vvQza JzgebTxyf7AkjZVzRHnyCI NgSUQiDGkbHJEnTQ7ZPcJc WCM3UpJ5NEXfLSj2WLe5SQ 9WUyAiICAzMDAzOTQxMSIg MDx6JGboDO5QKTHiIYCbBN F9OqP7DRX4QJDoXXLhQlVr XGYgQXJpYWwgXFxmbCBcXG 2qqKxpvJMhlvORJwMCgN0y m7kiQAszz0EepLIhYMYppl ANClxlcGljTmVzdERvYzEg DQpcbHRycGFyXGxpbjBccm luMCANClxsdHJjaFxmczIw GYDjJYQafFGryF8vncTcgd DkVQDwqXShBHQapwWfy9Rc ZSutmzSsOISueVbkSRA2fK AyGKLsKNBjNLXgYI71JFdZ NHMgbmFtZSwgbWVkaWNhbC ByZWNvcmQgbnVtYmVyIGFu XAVsE9YijRNaJrYlyR3ao9 uqUBOgKQCjl57gjPA9bxLx ChI9FIBrwv3iwB2oIE35M5 9jIF2dv4WkzgNgGSAff6S6 ZSBmcmFnbWVudHMgKGZyb2 5qCD2wSICjLZQaNKTnPwNj bSBpbiBncmVhdGVzdCBkaW 1pjqPnd72dUxHDwJSqt2Tz T6onLP4lyTFle6OtbYy4oR FoDNqpAHAauT7xKw6nzX43 sB5uNQNosGIqFKYgn50reG 0jB3Rff5L0gFKiFKNkUKZt ciANClxwYXIgDQpLTCAocm VzaWRlbnQpXHBhciANClxw bGFpblxlcGljTmVzdERvYz UunYglhJ40QEFnxRUcLEE6 AQ5gFQDqlzwtPJMuMQFcDK V2NJjgbY41sEUbJSDrVIZr cMAtzS8El6vuCRXorHEoUM K1MPwflHBoOMHuDNNmDSzv MeWeI4QTKQOoIpk8WGl1Hq BfOJs2VCwiD9GORTWnFOMb QRD7KURwLoP0MNz7MGRJPl 5kCoZkBxY5JTC4WWU5BSjb IFxcdCAyIFxcZiBBcmlhbC JpTNPoKUjtxeE2TINqZNKx kVcihE9wXx7sXB3caWYlTQ CkbD5mWU9nIBPpusV1FYRo HS7mtWImUO3QYOSsyKUZWD K6OC3wPAOEJrhcqBYjSOUa aHrsVEjloQ6zLK0PFYd9nw NoXGZzMjAgVGhlIHNwZWNp zQVuDHodUFCiW4PrcpHyYB cvSIKytq0tuSepGOdpLlBv bGVkIHdpdGggdGhlIHBhdG azoyAmJ3D2wbTlNO4uWITv ZXKwN0JiNXKgD48xVQVqpV 2oISUoWB5uCZQ1hzBho9Vs cnNlIHBvbHlwIiBhbmQgY2 3hm5jqoBDfp1XcHTJ5BR2i gBzkncAqwPCwe1JpD589DD GtNSP7gPChlGAxQhOzE75z jqMnWBrqKbVkV16mhO2fC8 LeENFhp1TrCRilGW8hdW3q OP9aCQxhQNYqWIPiiAPpHR ehISE3Ev8icWWwLRYwauO7 l7TxHUSbhVhzu9jgCiYbpY r2hiJ1zI8kKMdnOUSpf9Tv dHRlIEIxLlxwYXIgDQpccG TlIN1VQ3ybGDOyj9axVR53 WLynLFAqISptvZzieO5cHI XzB25xm2CXz6EmBMXeHFix k5hqeCwak6HtsCFfVIsaUO KlpHOiVSxdeH3cIvXlj0vc sWo0NLcvstU1LKQonm9HOi umsZ2sByAdb9ovlHd3EOKV QlsozlP9j1jpsDhmf5RxtC EkLI6XYp6= MICROSCOPIC DESCRIPTION q6dctCTcLJScyHJ5OkIiZP (test code = 3371) Anj9fba1GkgWXzhOHmXQeb mRDvjtUjcv63lGL1cD08GZ 0yNKRhEyR3CRVhqaC7Eji5 XISxKOYbsROnI860e9acm4 yceaYfoKD1rMihZAHkiusb NrC4PZfyRTJjbzcxIZb9AP skYVTstHH4EFEalOFqB2Ln LNJtEZ6ymxc4EGJ5HZveJT WfMwV7BUEidDKbQXVncIsl DYukk261HZM4AtWvTXLypf CaxMoodP9vElKjWYUPNQTb x2SyNXUpIZWnwm2= Gross assessment was [facility] performed at ([facility], = 2777) Department of Pathology, [address] [place] [address], Technical component was [facility] performed at ([facility], = 2778) Department of Pathology, [address] [place] [id number], Professional component [facility] was performed at (Psychiatric, code = 2779) Department of Pathology, [address] [place] [id number], [facility] [id number] 18:40:02 Test Item Value Reference Range Interpretation Comments Case Report (test code Surgical Pathology = 104) Report Case: [id number] Authorizing Provider: Trina Perez MD Collected: 03/08/2022 09:24 AM Ordering Location: [facility] Received: 03/08/2022 02:08 PM SERVICES Pathologist: Pinky Kumar MD Specimens: A) - Biopsy, Gastric, Bx B) - Polyp, Colon - Transverse, cold snare DIAGNOSIS (test code = [id number] 3220) FuZzEwMzNcZnRuYmpcdWMx IHtccnRmMVxlcGljOTYwMl fyjgNpUMWvyDNdV6Qaxnoj FUbhYA8mIF0brRdggUHyaZ WpQPZxWjYjb1gug672gSCc r2nuORKRkbqvjVa7oTfxU7 6id4P7IpohG15bnCYbMWD7 HMYoTFWxjIPcMBRfJMR8AG MvpAUiX4moLYThTN5smnqw CIdhJDnoQUYuzZA2ZYKshE RaA8HwWVLvYWxfGLOgvvm6 IrMaPb7ktTCamWpgNEhcMB DyLWBmOAyvXRGiPlTpGQ3f T7QJEEJCOLNKON1ZF1jtlD LzSE8iDXJIVCJFOnzLIUqO RMNOIXSWYOfRX7QYHNQBKp uvHAzWSKtdAQSyRGXaOC7J IElOVEVTVElOQUwgTUVUQV ZEAJMWLMwyKTyTKHnLH2eL FF8CQFOJShCHXl8BGJBATB VOVElGSUVEXHBhciAtICAg Pb4aXCEMLLYWVxEGSGZBLB WRGG8PMLLOUAxGZU6RJ2QL SVNNUyBJREVOVElGSUVEIE 6AVCPDKGKZUbLlX6JZEV5b vKCrXEPmmdIIHyTDA1iBKv zoINICRvJDHBDSOYBMG6mS SpDAH7jHWHqnZQ8DLSQJB6 MLDHxuoJMjUY5qOULYE0eU YS7BJGLVOKWHB3XBAJVXLS jXHY1QNPyKRLrtEt3eLDvQ Z92IU9DRUhCEGTQMS02PGR 9VUyBPUiBIWVBFUlBMQVNU MBOpG5wHWpmYN7kjTEMfNU HkOL59iEPpjOfiPXpijgKu asY6YLXpKSY0BL2bqhEnOS KjpLXsmYimwpCoQPfuz0Up NSkmEKEfEW8znHekMVFhHS 9dPDJkR5suqD1nawp9JkBu EFLiCbJ3LLGhdfY0Znx9PI WkJCtzw5pna4DbZUQbCSi3 vQlpTrJeBERhf2mjmbVtTf MhEEZaZTHwOIOyaGCkB113 h4dtd4ahwbXjsVZ3FHQhWO B4HNuztiLgxzI5XRodeGWi GqL6KHngkpAzDUzlxnLvij TpLhq3EYOtD576RWC0cMgu m8icIFD5IMMzZAEiUzLoFj 1pnQKeE211BWOrRHVVEJSh lQb9OKWnnoRdjjWdhUWIr3 06A726n7oiQBDsldGfwOeG qxonr0qsK188XOXbnJKnhj KsPnPaLHVjlSBpfMC5KUEa KI6ubmelULfoOIlaQXXfxs V2DEJyrFLcB8XsIXVzNW8v uacjMPQ5DLpxPVDdCQO4Vn YmIYOdf5Qwilo1QaSjcs6q vj68WVI3l2ZcdToiNFH1HQ A4JxCnUj9ydPXfDWHtXJ3y RtNcaIAxCFLfyk68lDauFS ghLMH7RQYnfzEzc4Twl1tm HoQzmkOiH0hyN3VcSKEwJD ByTAJpCrPygaWky3Awz3Av yYFqzOc5r5hfQWIaBJZqoK yeo5btHCA3ZBOhzGIgT0df rU9rEUXcNH8yaqorv4udVB ngTWdwHVNikBN7wmX8QYXa hTMrB6TelE0sMRBeRIxcQL Zfbfx1RpIuLw1bhZIthAfs MFxzYmtwYWdlXHBnbmNvbn RccGduZGVjXHBsYWluXHBs YWluXGYwXGZzMjRccWxcbG FuZzEwMzNcaGljaFxmMVxk ObNzEXRkFIjgU8obNyCcVv ErGbl6ODYifWYpGYLkTiu4 RDCbzFAcHEKKeVlmbF3eJP VeoUywyU8fkJP2ZBTevrIx kLWTnJ0lDVRBmW7sHuR7Nv DgHvP9XBu7JaMzyMNnjZ6= CPT Code(s) (test code r3pceEOsBDBqoOW9WwJyMT = 3357) Rbf8vpg5NhyGKahSThTRsi xBRefbBvis29hSA9jW60UT 1xAPDzUvL5JVIuhcH4Obg3 NXVaHOMxuWYpO592c2rdn0 msbqQqeWS1pUusGFRpekmk PgV3NZegUXQkvvnyFNt3BD cfTGQytTP9HUOitEOqK1Ns CQKcDT8rqme6ZJP0AIjsXI OlAqN9BPQgoGWdVVNwoFgz ERyts548PBX2NvJzJNIrof DjdKqtdW6sWcAvZBT9UWHj NSBYIDJccGFyfQ== CLINICAL HISTORY (test w6evdHOrUJDljNX5RuUjJT code = 3356) Vbw9unu2FkkJYqqFWlDAlr uSYlftLcsu04sNY8xI24BK 9vTOGyAuN5CQTzsnR4Spp0 BNLlFTVkbWJtW237y1bbo6 weiaMumMA8AEHtSSSrU7Sb SX8uXVXowVRwT29akPIbQX J4VUFhMIYgtCQyMCLsQDS1 NFMhkITlT6xfLLOvRP8ovo epEDuzSDdqPTRavDT6HXDy lXPzP7ZsQKKkLKhmEYKowf d2CyIfEr7wbSHzsEwhXWrq YXJkXHJpMVxwbGFpblxmcz SeHRVkSMIFa13ayXQlJSWm BGIspjyzPXJvr2s9oY06aJ YauFCaYRzeJbiemN4anVLp kJOdHHVgQZLjySftZ8AsjS J1DYOwF2ByOFT5eOPtUEAl lnPVrSPqcM6gsJZre2NofZ w6IXVjb9t1fR42pKQjf1Uf oHNnDXA1liJeIBLsTgbhRQ PcGOElrIknBOIiqjCxr7Ig qxF8zNLcPFagOTHbZ5EkAR AoWWSigqRrr1yzpmZxFI3v ZXJccGFyfQ== SPECIMEN SOURCE (test s3qcdVCcVQJmiGH1QhCrOG code = 3377) Ipk3ehc6JmzKMsrSJfNAjl jTWvikGwyq97sHM6cT88OK 3eMXSmQdI9FDYvhwM1Bev6 LLToPBVxnBQoY530l7bxj6 fjtnYolCF2aQzeEHBhxegg JsV2LOjzXRCdvchoWRq1TT cuXDYokGH4QUDwpOWrT9Gf JBRqWR6ltmj4HEG2YFcuZK QtEgT8KMHtiIWuPZEqcZgb JGxns814KEA4QjLgTLYhkj PovHnkfH7uToHhUCVIUuGf KbsxeXN2KZPoKJX4iibiPQ qpieJhAi2dWQXlhAazMQMe a4fyysuilUWhliY5VESoGM xwYXJ9 GROSS DESCRIPTION (test u8xezPCgMXTmdQMFASKxN2 code = [id number]) hytkAqHFIdzPHjY2Wasuoq DWcjFT6vND2yoMzxqRUbpZ OuIS4OPDShIzFqXDQjfMTg zoSfSpSyDQIxuCPrmQL7QT TvOG7oprumDQuiYStoTZFk yoD3WMNejLYdX1EbLLTiOY 6aijqsYWN7SQkleO8zssVH TvenUa3hiMMblBnqKdUbRb NoYXJzZXQwXGZuaWwgQXJp ATu9fM8CTcudGOF6LEALJt akDDOeCU8Au8ykDAIasRUs GPK0KLekmACeHGMcNZYmCO z9WGHgQClneVQqCG6ajJsl FlzikVelt7YeoVSjYSubCA DaZQTlHVqtBXAiAR2EEuDt IVO3FlL6FOPxJYj8KPu5ZD 9WUyAiICAzMDAzOTQxMSIg THs0MIthZV2AZPXjEPFfUQ M6UiN9TIQ0FFHhUXFxFgFb XGYgQXJpYWwgXFxmbCBcXG 6ynEeomAGnujTBKlTVbZ7z b0ydYOmbm2WorWKhKNEklb ANClxlcGljTmVzdERvYzEg DQpcbHRycGFyXGxpbjBccm luMCANClxsdHJjaFxmczIw FEByFLFjaFJykQ1fgbKghq LgOYZlzHXzCXMpnrYhv6Ia BWveboXhIMFvqXczVWV9dJ OeFRLjZMAsGDIfSS79ZKsM NHMgbmFtZSwgbWVkaWNhbC ByZWNvcmQgbnVtYmVyIGFu JPCbT1KthIUmXoKshF8lx0 xrMKFhCXHmv20kuCF9yhFu FoV4QFNtfl8ffZ4zNZ56M7 7wYG7sk0JmxjYzWBUbw5R0 ZSBmcmFnbWVudHMgKGZyb2 4yYX4hBBXaMDCtFXUhOxMb bSBpbiBncmVhdGVzdCBkaW 9jbwSje55hTkFDmTTmy3Hy L0cbJD2tcZLgx3LarUn9jH OyJCmcXGCgjZ8lKj6pjH73 cC9sGIWjwIOtEIImn91veX 6tA1Cml2T3gPXyHNVwVXRu ciANClxwYXIgDQpLTCAocm VzaWRlbnQpXHBhciANClxw bGFpblxlcGljTmVzdERvYz GhgNpfaB42KIXwsVQbLMM1 PD5oACPjpuucLQIoBVOzBP O3QUyzwV31mGSrAJJjYQIv iYYecZ2Qx5waNDSvxGRhIJ N3SFnrhUElTEGbQXOiMZeh TkYjF4WTCYMiHem4LGh8Eq XeSJo3MIqlB5FZSGHnMFJa CKY7AQBqJlM6OAj3SDWOTc 8wApEeXmJ5NQS2NTT0ZHqi IFxcdCAyIFxcZiBBcmlhbC ZjXHTtNAhxcgW7QUJnCUBz nMgikT2wUw8fPS9yfGUsPW JaxT3qMC2sPKYsinC9GHQe BK7jlMTfKJ4MJUWlbQJFPJ W8ZX6fKUIPQmrrvRYlPIJu zLqtJPuxmB2mWD0PLOc4li NoXGZzMjAgVGhlIHNwZWNp dBZgUGqiVUSeO1MwxaEzSU jbBHQysx2zfUqxRRuhHcCt bGVkIHdpdGggdGhlIHBhdG cmwsQuX8D3nnWhEL6gTWVj KIWuN7VfMLEnP38eVWQvkC 3oCIQrGA0qEKP0kzHun6Zg cnNlIHBvbHlwIiBhbmQgY2 5fm7eiyRWrq8UdNLD1LF9w bAwbnbIlbFLgx3AqR942FW XaQVD0fZEyaYUbQbOfD83f mdMaXKubRqSeE49zqV0jT7 SuKTJhq3MwZChmRI9btO7v JA4dRBdeVTKpNMXtfXAcEJ vlEHG2Hx1txKFgYJKznnR4 n8AaZNMzuQwol0dhRdSvvR j8vdG0sF2aNMzjEAEaf2Eq dHRlIEIxLlxwYXIgDQpccG LnWS8CV7gySEOyg9enKE75 LQwyPISeVMtuvIvvnG2zMJ FjI21oo7SWl8JxTUAxYCib g1juePzry9EipNRhQGtwYG AuoNKnOEqwdB7gXrDcj8tq aKm6CHjzzaP8MFFusg1AJf piwJ9lLaHla4kitQa4YVTM EtrzjdL8i3apjBjdh4XmaY OwFM3QEi7= MICROSCOPIC DESCRIPTION o7qujZXrGGJviNN5NkMzSB (test code = 3371) Izd2zrr7EsqNGzdHIwGLde xNJtieRwhg65uCZ6uA28EN 6eSVSgQpC7PHIllyP1Les0 PNNtCNBesMRsI187x6uue3 nqecWomIW1hFylHPWfvjfs QuI7LPvvSXEsmvmmOHz9BX qdXTNfoBE3WGKyhFGeI3Gb ORScHC2vvjw4DGE2WIgoFC PjCyK0DWKxuDEsZPUfgUnm XRzhd305ARC5UiKtXARplo JmkNwkfY7uQgYdAWFQOJUu i5CeCYJlDHMgyk8= Gross assessment was [facility] performed at (test [facility], = 2777) Department of Pathology, [address] [place], [place] [id number], Technical component was [facility] performed at ([facility], = 2776) Department of Pathology, [address] [place] [address], Professional component [facility] was performed at (Psychiatric, code = 2779) Department of Pathology, [address] [place] [address], [facility] [id number] 18:40:02 Test Item Value Reference Range Interpretation Comments Case Report (test code Surgical Pathology = 104) Report Case: [id number] Authorizing Provider: Trina Perez MD Collected: 03/08/2022 09:24 AM Ordering Location: [facility] Received: 03/08/2022 02:08 PM SERVICES Pathologist: Pinky Kumar MD Specimens: A) - Biopsy, Gastric, Bx B) - Polyp, Colon - Transverse, cold snare DIAGNOSIS (test code = [id number] 3220) FuZzEwMzNcZnRuYmpcdWMx IHtccnRmMVxlcGljOTYwMl wnpaBhWHNtqHLaP5Knfnvj IOtcEC9hLV6tlBspjQCdjY KqEMNsDpIbv0afa839sKYm n2cyBVQKkwytrBu4cLjcQ3 7ls2K3KqysJ46koZFpOPT7 KKIuRIDsfVYnGESgLUR2GC QuvSJdK8njYJRpCX4oavjn FNcoMQfoCWCkvAN0UDByiW UiD0YpXHDtSEzjIQCzqnh0 IzNtRe8wrHSqtPtoLQwaXO LwHXBqRCodXMFeRlFgWG9k N8BXKOYQAKARQC7OK6mkiF CcWR9vXKVFTFUFErjOKReM YSHCNXZWBOzZW1AMTHSREm wnMCaGEZtrFBZvEPAmDK6N IElOVEVTVElOQUwgTUVUQV USUIMKNMnkTXtXNRfJL0wY ZH1PAOBHUmMQWj1WLPYPSJ VOVElGSUVEXHBhciAtICAg Me0mUDIXSNMXLlNJOOOEEC VWXB4EIJKOTKdXYL7OI4FQ SVNNUyBJREVOVElGSUVEIE 0VCSODHXCUTfZrM9PMRL3w gOLuWGIfvpFMGeTDQ8sHYi sdUTXVScGVEYKCQYYOI5uD LbCSB5yRHXqkUX8HMXMNT5 WHCWdaeKIlLD0qXLUKA5yS IO4IFXGYWLVZS3HQLBATDO sMQY6FVOwOCDifWc6uRZnJ G33KI1FRHtCTELPZC75IGF 9VUyBPUiBIWVBFUlBMQVNU YOUkN7xNRydUL9maVVZfWI YvWU28lPLopEiePRjmmpJg ilS0YFQjWPY4BY1ccvUbHC CrrSJcrJrbruDvHFhvu7Rt WVsvTBHcXQ6lvMyuYXPhMM 7nPHQuB0krgV4yzsr3SjAp WXJbQcJ0BNKhjuC4Obm8YY GdWIjdj2jzo2EyVSTyNEi1 zAiiSnEwTYRvf2uxpsTrYd KbQZMtFRZjBHBmhMQnV657 u5yis7mwyvDbuEO9TIHnWK Q6JXpgorEqivX5DQzvtKMh AhU2OTopoeZrFNpxwdEdtf CpSnt4HEKkA035ELX9nSvk s7nyQBS0LUUjZMDhSxXgOy 6uyYWnL491AKPaKFGUAWJk qHj8IQLpiuDezhKuiUQXd3 18D977q7ljQKNhmqPfdJeQ zuzjh6isB619ITQywPVcvj IjUuBnBYByzDMztJF0EUZf AO4pobjlJAgrRUqjMIEsfe J2GKCviNArU4VdYCLfXB5t axapPBK3TJfpBTSiBAO5Rs LePTKcz0Uromo3TvJoot6v mc89VIA1h3SgxDfxHYZ2AV N0EhDdQs3acAVmSWPkVE3t CoDbsSLqDCEgzc72uJvfVM qrNWW5TRJygmOvm7Hni1tg LtLptfIjG7haH9TbVTEnLK BuDAQnLqQgdyPxo9Bla7Wk zHDqiDx0h4qlJCLhDKStlO ksg8skUYJ3TFXqoNFsA7wo sX1lBXZkZM7qttpvm9ziAW kbSXslTBAtkVE0rnF3LLGp mWUzD6EneH9nPEKoKLhjES Efkhr0WsVeNi1lhMVnfMiw MFxzYmtwYWdlXHBnbmNvbn RccGduZGVjXHBsYWluXHBs YWluXGYwXGZzMjRccWxcbG FuZzEwMzNcaGljaFxmMVxk RaKlHKDmKNpbF0itRyPtHs GpAeo1IZQrtAFqSSSaQov5 HFMxpOAxLPFZtYzxbF0mND LeyItqwC5ygRZ5BIFsagGu rLPRnT9qPBWFjX8nPgS0Jb ZjOcC1IIf3QhAlwBZtfB3= CPT Code(s) (test code u3sdrEEvAUNzzRV7BpQsOB = 3357) Uue7mjj3IoxLUjuLFtTAnm fSQirwPppu82uTW8dU08BW 2oAMPyTaL3JWLrwhX7Vbu7 ISNhEUBqgYBwV463l2mua8 asxhEiwIH4yIvgJWRrpbwb KeZ0RXyzAYUxjzbySKo1OC noQCPpaBI1NZUkbJXiC3Xg LIOkHT5ejvm6OGK9NInbTJ WcDpC3FWHlwUTkFKVqaHwk YVxvh568JLF6BxReCXBsnv LbfBhjcS2dUtGkDWS4YPUb NSBYIDJccGFyfQ== CLINICAL HISTORY (test u9tkxSCtILWmqXX8RrCwSR code = 3356) Nhy5hpt6SzsOEeiKNrUCib tTUihlSygo95qUF8uZ99LL 8yBZAyOjK9WBBbfmS2Czz7 KTPvVCWsvBDjA875f9wic7 kjrkUdyDA8XFBcJYIcB0Vv VY6dJQBmnXYgS26akKLiQJ X5GZWcACKtnJFgHEFhDOD7 IXXqlOGnS7keOAYcIB3mgb gmMKxdRNkhDRWdcTF2WXAs jUSzM1VdOJNaRRaiHNHrif b0SdMoZs5zhLAjkSgwCUjl YXJkXHJpMVxwbGFpblxmcz LwCNUhTWBEa85ziAGqNJOl FSVheovuWWGzr6x8oU78wO HojDUcZSrdSafvkZ5paDJm dKQjXKKqPTTtlTrpH2AolW A3PGDhL9WpDEP6gYGqDDLl moMHwJElpI5itKJvy3IifU e1BAVwe8c9dX27lXNgn9Zc iEKvAFV6ejEmCFSlYnmsHJ XnSHVlwWzySRIptdKem6Jj tdR5aVXyHCjoLBElO9OwJX McQZXzzdCoy2hyuqVcAU8u ZXJccGFyfQ== SPECIMEN SOURCE (test d7imzMApNOGkaMV0SfXfSO code = 3377) Xug0nah2UbiSGgeZRtOFls vWNiyeCjou76vRU7dN67BH 3fAAWyEpR7RPLdhcJ7Pae5 DIAgRZVmsQTqN932f2rtg5 wicfFtjCI4cAfwUWOptfgz ZlF4MZxlNSGgapkrNEt0XX evADXjrNI7MBZzkKAyK7Cl MZFqDO6bjdo6TWC5BGajOZ KoQbW9KHLnjEPcYGTotTgq CDuwt382TJQ1QdTxQLMopa BsfPamqQ9dTdLpQYCBNvZw YqfumPK5UVBxXTS2gbeaOJ lwdbQbGs4kWLEtbQkjUHEu u6ujgirspJNkfiQ7EMFdRF xwYXJ9 GROSS DESCRIPTION (test p3cykAJmWKHgdWCSNOIdC2 code = [id number]) iotcKtKVEqwFRwK4Sqxdra DQdyYW4lYN9wqTyekGOdkO JxJQ2BWPKlBmSbJFBzlDWn qnOsNnIpWKSrbSNezLJ9HX CoVV8jmtqiUVptCAfvGAEc xiB3CKSciFFrV7BqXEGxWI 9gjbhqDQM8APqjaQ9wrkUK AkmaUt5tpICkhElyWcRzFy NoYXJzZXQwXGZuaWwgQXJp PTs3hZ9VQnghNRM2KRUOIg hiZPTrJD2Tn4gsHLDdeZDm KVZ3ZIrgfEAvDPZuDOUoMQ q9MQOvQUfuuWBnER5mdVdd UbhnwQkaq7AepNYtSVuhHI ZrNWKiKIjqMNYwRG6EXxWj RHT7LzC7LOGcBOm8EZy8XF 9WUyAiICAzMDAzOTQxMSIg QMf0ERhkQO5UGNHoUJSaYP M0KtB5QMN9TDXhTTHxSwNl XGYgQXJpYWwgXFxmbCBcXG 3laZjuzDQggcTEArEOyS2k e2caNEtzu3XzlKLvQPHjns ANClxlcGljTmVzdERvYzEg DQpcbHRycGFyXGxpbjBccm luMCANClxsdHJjaFxmczIw NGDqZZAdtNJjkL2ntjGblr RyPNUzhSZuBDFppjOmn5Yf UWffscAnBSOdiAvvQSN0rR XzNGUpXRUyAXQrJN40SXzI NHMgbmFtZSwgbWVkaWNhbC ByZWNvcmQgbnVtYmVyIGFu ASFlD0FosMWfUuBemT4kq9 ueICEzHKTry31gzOS2xiHb JjO4EXWekf7mcX3hET24K4 3cBO4eb8AxeiCkDZEes2S0 ZSBmcmFnbWVudHMgKGZyb2 2dPK2qKHVdSWUtLOAgQiJo bSBpbiBncmVhdGVzdCBkaW 1kyaZwh09cLjNWtMUtz2Lm Z1qdXV4ejSAcg6QfzWx4rJ SaMZzvWQXaiS8tTu4trD09 mW9uOTGdpTCnZZLpi69duO 7aQ4Bhm7D6nPYlGVAwHKYy ciANClxwYXIgDQpLTCAocm VzaWRlbnQpXHBhciANClxw bGFpblxlcGljTmVzdERvYz XkuGfgxY91TSAdnWChKNR7 XJ2qUSDlrrxqXCAtORHrBC E6UPiwkH57wGZyOJFmWFWd fGWreW5Mh7ztCZAsfNRsOG O9RGtltYWcUQRzHDBlDVkl BlGoE5KESDOjZbk1TGg3Nv YyWIw6VKdsC9FLLANnGREy PAH9EMRiQuX6TQf0HWGQVp 7zQxGbYtR6IBO2JJG2UPlf IFxcdCAyIFxcZiBBcmlhbC LmRUDkJRdzfkG9NOQiBNJj zJogaW7aUl0cBG3szDVyBA GuzQ2yUY4qFKIodoQ1NALw AE9kuRSqPJ5JQGCehCWRID F6PP8sSJIMEqqclMTkDNMb lXztYLfdxP7fHZ1SZPn8ks NoXGZzMjAgVGhlIHNwZWNp cELhQPfqCOPsX5CjeyGfWS nlBLPbqc0fzNepRTtiZcMc bGVkIHdpdGggdGhlIHBhdG jncuIyK7Y8nzFdBY1pVPKo QUYjQ1NsFXTrK97vVHHlxY 2vRYSyYT2kBQN7nlVmo6Aa cnNlIHBvbHlwIiBhbmQgY2 3mo6mjhWEbv9KqZLA5GX3a qXyeenSjcHXvt4PpD475EH SvDXU3yTSzdLGxXcIiT70f nvDqROxvFoZnZ98vjQ0dU4 GxLQPqb1FoDDsqCD7diH4u AM6mTMzcNAMaWZWpuBZqYS tjIME7Si6shBOpICNlksR0 m0EtXYJrmXwjx5ebVtIgrY q5rgM9rI9vLMunSGZpb4Gv dHRlIEIxLlxwYXIgDQpccG OeNJ7EE7ehBHVue3acDL84 BAriARCsFRyvmYpmlH6tZF JrM21mb2JFe0UmSOXcYXya u6tlrNeea4QvkEYmCXbjZM BxmCKdQRtscX3zNnGow0nt oVx5CScyeeB6XRImen4PEy dhcX6rVmRhi7zpdFj9JIMT AuukpoG7c1slaXccl1HgbB RbZK7AOr6= MICROSCOPIC DESCRIPTION p0uwhDVbHFJlaET4VlYgIE (test code = 3371) Onr1xep0RjnGUwfEExBCap hKCofdPcme01fBO9lH34BT 8lNMNsYmR4UNKnwmK2Gmu1 GYUsGHIqlNTcN822d4nwu7 hzbbPtdIV6mMdeKYPtbzkk KuY2OOgxVTNabqmwXAt3RE gfBGAewNE5QPAqhCBwF8Fo CCLsDC9wejo5ORY3VPocTT GiKlS8HGYcsFFzHTLwtIkw SGnut440NIG3VwOoUFZsuh HyxLyedH9tVxPiCZRLYPOn x7EcGUKsMGWzzx8= Gross assessment was [facility] performed at (test code [facility], = 2777) Department of Pathology, [address] [place] [address], Technical component was [facility] performed at ([facility], = 2778) Department of Pathology, [address] [place] [address], Professional component [facility] was performed at (Psychiatric, code = 2779) Department of Pathology, [address] [place] [address], [facility] [id number] 18:40:02 Test Item Value Reference Range Interpretation Comments Case Report (test code Surgical Pathology = 104) Report Case: [id number] Authorizing Provider: Trina Perez MD Collected: 03/08/2022 09:24 AM Ordering Location: [facility] Received: 03/08/2022 02:08 PM SERVICES Pathologist: Pinky Kumar MD Specimens: A) - Biopsy, Gastric, Bx B) - Polyp, Colon - Transverse, cold snare DIAGNOSIS (test code = [id number] 3220) FuZzEwMzNcZnRuYmpcdWMx IHtccnRmMVxlcGljOTYwMl nrdfHwCDBihLJgD7Sliben YUwyVS8kVK4qwKrhhJJqtR IpEKWwJkRjl6ens621sMLp s7zmWBEDgrrtwZk0lSnhU6 2pt9B2PbhmQ52nuIGmXQH0 YHJhAGNosMZlXNMtGFJ1RL IxqKMzZ2bfFADhLM7arvhd ECsyVRzbAQGmwEH2JEBofG ImX8ZgMPFvXXraZOZtwwy9 BaGeFz5ucCXhgEelFAukIH HhWCSfXBjoKLZyVrAeQB0a F0TMBCWMZRPPOL5YJ2bfgR NdET7pIQWCVXACSpkEXFeC NLKLGBABRJtRX2LHDKOYXv baCMoAEInyIIFfTTSfIC5D IElOVEVTVElOQUwgTUVUQV APVXRQGSvjTZdXBGkTO6hC DM5HOASEHwCNSo3FQIWMQU VOVElGSUVEXHBhciAtICAg Io8pTMOTZLKCHfBYHGWMSV DAFP5XPGFHPNeBXO2XQ9KK SVNNUyBJREVOVElGSUVEIE 8MEPRLINKNJhNdE2DJCL5x eXKmXQCwsbPBNtJSU7yTWo vlIRQKRcPSSPYZNAQBF4kC LdLPX2eNRCahQM6SVPRGN7 RJUBfruCJpIX2rLQKIJ5dI VX7WDXAWUNZEA6HVNJWZKY jNMJ6ZZBiZNFguNf4bLUnO S83AC3HVBtSOJRSHP69TJQ 9VUyBPUiBIWVBFUlBMQVNU HOIsS8yBTlgKL9oqSTOqMC ClNL71qBZnyPvaBWddnvWz ylS3AUVbBKI7KZ8lvtEfWK OeiYAcuMizoeNeQXyri3Ix RVtsUANgCC4dcWxxNETvJC 2eSZVjH6mzbP7hdbb8MzJn PAWfYxL6ARAuutI1Iff5DZ ViYOhwo2qzz4YuBVYaZFp0 dWvkEfYkKBWom6haxsTqWi QyJDJvTTDkTKZlqQVtM210 b3tdl8luqcThaXO7JQYqOV S8ISefnzBxwhO5PGylmWVt XrT2KSognlDwIGnxkyHasc IjPok2VLUwJ372PAB7iLej o3ghEER6SZAwCNVzOkTkLs 3vkGZjJ023JGZmFYVSCGZw dIo8KWWsyjNzmcHvuETOg6 26P779o9nwGREcbxXxbVjU zpfav3stQ332YJFysEOkcd ZvJzFfXIYmcTVnxYH9DMKf ZF4xvlgbYNefGRmqUBVgyj G5GLXdbBVmU2VaLVVhWK3z xbtpICX2DNdnZJCqJXQ5Em KiXJSrn9Drilw7IlZxsw0c rw78CRZ1t0OeaKieLHN5OD L3KhLzPe4bkMTkFEWeHM0l CrHnsPGtSLBrbe02tZxiNM obQHR7EEVrugPst1Bcv7zn OfTcgxCmY7piS2EmVEJuOA BfRDJmDiJolgPrf2Xcy2Rj cQQgjUx4h2yzGPFjIEEvpU qyf6fsJIC5RWEtrUXeK2wy qA1hJCElXK6kpkccr3ptJR syVRvkUDAplME8bpS2KTHr pYRaW6BdiR1cZWIbCCuzKG Aijgb9UyDxDr9cpPAggGjj MFxzYmtwYWdlXHBnbmNvbn RccGduZGVjXHBsYWluXHBs YWluXGYwXGZzMjRccWxcbG FuZzEwMzNcaGljaFxmMVxk XxYrXUQqGYjaM8hgHmDlDn UgBuw2VPFmkWWhIRPcCye2 LSPnvJIoIJQBvDbszD9xPV QlfNrsoY9xkON2CAXdfbVh jOWNgJ9yEZLFjC1rPoQ8Rr YgEuQ6ALm7QzPiaYOejL7= CPT Code(s) (test code h4izcVFcAYNvdWF0CwZcNI = 3357) Rna4xva3JdvMRcsOYrFWgx dKAvziJosq52aBO7dO02HT 2iMMRvQlT9TNMpywQ2Hfr8 DQUfPYSvaLRsU387n8gtc1 oiwdCfmUG6oMjbLEThwrnb XfR9FPxdMFRuuhxmSFo8GO ptENOgmBQ4XKFynWLwW1Ag BWJxSD9nrbf6BYY9NVtlHW DeXkQ3JAZggODtTRYhoTtw BDyzg291XZK3SeUvZVDeqa KgtCaebU8qUfUaWER3XVWy NSBYIDJccGFyfQ== CLINICAL HISTORY (test r8zkdHHzJLJivYC1RhUpAS code = 3356) Qkc9hba1WdmQYwaXVuZTpp eAMrhfNcxe81yLM3lP76FR 0lVWSbJvH4NQFhvnD7Zzc2 HAXnYNWabQUbT460s3dcr3 syqwUwpMV2KLJwREHcQ1Li BP0lTGYdiURpH37dpNOkAS B7FTPpQGGhlEXcMQPzHAG4 UXVfpSLjH1rhVYUaWT0lpi uaIMzsSAesDLNytXI8LIFs jKRaY7SpFIOoQTsiEXFaxl s4MrPqKn9saKHsbDxhQUtr YXJkXHJpMVxwbGFpblxmcz BlPKLcYQDJz32pmGLyFTAq LHMgcxecGQAvq2b1cL57sI GxtTYiTNsbGfwbnC5ntMDt iSVlCSKdCMIkqQkjQ4FuxN K2XUEvZ2RrNDR6hMVnJLWl zhUCyIXywY0pvKNbz6UxxU o7WMJcn5z9pP88qCYpn7Nt sOUsGZV7ysFyNAYtZhloSD OfPFFhtAxkDPBanxAsn1Qt jqK6bKPkPVfmLJGzF0InWJ NgJQNiojFae6bjscTnMZ7u ZXJccGFyfQ== SPECIMEN SOURCE (test p8yciXXxBOQqvNZ5QmXkCP code = 3377) Akz8ebe8MblTGlfXIiMOko pPGwroJzze62kEE4eG40GE 5lHKMlOoB5TMZitsQ7Vsc3 BXKzQFRpqGNqZ578g4zzs1 iyopJyzDB9zWqeMAYsbpxe OsG9BHztGTJffqulGVh2GR ymDTOqeIH2JQHqdUJaO7Js ZWOqIE0engm9NIU0GMwvUP ZkKeX5NAEujCAgHFOlyAul MEkdo141JBC5JrNvKDSoao UskRblyL3lOdUbYZXVRjYn PclinRW7FVEeOBT5xglpCY frnkUnRj0wVEXqlIbrCQBp i0kdmwyxdDRmxuY3BRElFZ xwYXJ9 GROSS DESCRIPTION (test o6oxfLUxJIWwwMZNPTUwZ2 code = [id number]) zazgKcBWXjwCNjI5Vdbvlq LYeiEG2bGY2jwEytaXDwxK EjBH3TOQWzWaIkEVQtzSSp tuJkTwHlNZAlqZTzhUK0HV WqBB5ildvqDEnnAAkgVATc upM8RAKxzWIfX4UqOEDmXA 9ztxjwWXL9QMnrzF3nurOH ZlqoRe0waPOfiWsjKuQhRh NoYXJzZXQwXGZuaWwgQXJp NBg7jE9FZllhJPV4RPEZNu tyGMCjNI0Xp5siEJEwkPJe XJJ1QAbdtIVhYXAxMQMiJC h4QDBjWJqmmLUyCX4qcReh SicabUexp8TedLHgELrkJJ OlNLQiANwgHGBeFX7GFtOt ABT7YmJ5VMEdUHl7OKy3XY 9WUyAiICAzMDAzOTQxMSIg SFm7TLruAB4DYNDoWDYqZS S4ZmC4LSO0YDYfSZIsWfLc XGYgQXJpYWwgXFxmbCBcXG 2drFuonQLxbsQIRoZMcA9g t6poLMfmv7VodAWiTEYlbn ANClxlcGljTmVzdERvYzEg DQpcbHRycGFyXGxpbjBccm luMCANClxsdHJjaFxmczIw RXAtXTEtgZBrdY5kfgOhfw WrHTXmrYJcTJXdnvGfm5Fv OOvtupIqCTVnoVvbHJV5aX YrGYFyPMCrKCSeET23UVlY NHMgbmFtZSwgbWVkaWNhbC ByZWNvcmQgbnVtYmVyIGFu VCAcG6FbjXOoXqPasI3os0 zjBUKmRXJyd63etSF6fyFn ScT2TPLsxl0mfY4gFZ01H1 9gCR0fe3YgclAjFXOqe3U3 ZSBmcmFnbWVudHMgKGZyb2 3oYI9pBQSdRGSpLZDcJqZh bSBpbiBncmVhdGVzdCBkaW 4owdJsr66eYuEWmHMwd7Jh I3nuJZ5sqWBsh6JuoHv5zS KyENyyNCBlpD1mXz4cpK54 fY3ePWHrxIHyICHlq87skO 5bD0Hoi3M9bZOjCTZjBGNj ciANClxwYXIgDQpLTCAocm VzaWRlbnQpXHBhciANClxw bGFpblxlcGljTmVzdERvYz AshBzkxZ30ZGJjaVZvRQA1 DJ0kOXIrwogfOPQeUPJwQP L9OJbqjL69zIRgAOMeQYTo mVTccJ0Ft2dcZJNbdCOuTM F8YGsmmGGqCWNmNAYiXJsh LrIiB5IWHLWvJxi1ILt8Bn OlLTk9BEisV4DJWIQsQYGq NUW5BRUrTdZ7IXv9JZNSXm 3rTxOwGrL8HJA8QHP3CSpt IFxcdCAyIFxcZiBBcmlhbC UhVBBkHStkorW0FYOgYOYk dGfviF5uDi9oMA7msBLaZI EyiK6rBC9vVKGwysT1OWIc UH9lhQQfEH3XTVMbqXKOOA T5JQ9sDASUSgjjaKHvOCZu uGmhBWdozX2bSX4NUCw2ka NoXGZzMjAgVGhlIHNwZWNp tHZoQZcgGIOvM9BvofJoIV wsKPZuby2lzIcgIIyzUgUy bGVkIHdpdGggdGhlIHBhdG gauwRrK6W5ffYpGG9cJKVj SFIwR1JhGVOcX50xKSDniB 2rSHYtED5tHHN2tmRqp9Xp cnNlIHBvbHlwIiBhbmQgY2 6bj0nmcWZei3AoKAH4FR9q dUyjyrIrqREtf4FiD414IW VfGEB4aSXufYRqFhZxY08l hcVnPCpnDwIkF92alJ8vJ8 BaOZMhc1TqWPyqAV5hiM6t RK8vRHyrIHQuHHWtyXOlRL dwIZQ7Ps5jxPBmABLxqyT9 s0ZkHRVveOjnn0yxEmGjqF e9bdC6uH0xDQcuGIAjl4Qt dHRlIEIxLlxwYXIgDQpccG CbJV4XL4dfZWDdo8zqPO64 VJaiXMWzVNlsdCvzkI3eYH YiD89rl0CGc2EsKIPtINxo j2cupMfgf3HbbMNwLNitBO BoxULwGPyvyZ3mOfQvu8hu zBh7YBgdplZ7NZXuom1XWn ftaZ3mBcWzh9wftRs0AOAO LovoefX2j9rryYahw5ElrS GtEF5QHr0= MICROSCOPIC DESCRIPTION f3uezBAlHIIymOD1PfYfSK (test code = 3371) Xms5dsp5OaxXKqyUUbBQwg jXGbzaZycn53gNV6yN88OD 3mIJWqSoD0HYFoexS7Cvv0 UJPyFWZbmHCnB027m7oul1 ldopNluYU2nNwhNEZwqgaf UqD2EZrxNTKhekldQTx6CM pkBIMdoMB5ANUlmWSvD1Xk WVZwSX7hjva2UZY7HJlkDN ReMyM0YTYugUOkHCCrwSjb IEsmz177MAS9CsPyESUmla VtlChetI9sCyDuJNGCEEZw m9BxHBBlWIZsvu0= Gross assessment was [facility] performed at ([facility], = 2777) Department of Pathology, [address] [place] [address], Technical component was [facility] performed at ([facility], = 2778) Department of Pathology, [address] [place] [address], Professional component [facility] was performed at (Psychiatric, code = 2779) Department of Pathology, [address] [place] [address], [facility] [id number] 18:40:02 Test Item Value Reference Range Interpretation Comments Case Report (test code Surgical Pathology = 104) Report Case: [id number] Authorizing Provider: Trina Perez MD Collected: 03/08/2022 09:24 AM Ordering Location: [facility] Received: 03/08/2022 02:08 PM SERVICES Pathologist: Pinky Kumar MD Specimens: A) - Biopsy, Gastric, Bx B) - Polyp, Colon - Transverse, cold snare DIAGNOSIS (test code = [id number] 3220) FuZzEwMzNcZnRuYmpcdWMx IHtccnRmMVxlcGljOTYwMl mfitZeTTRnyWZsW6Yqvbod WZzkQK9kZF2fcQbjlGTfwG WkMEMjGeYct8uhk003qUYy z0puIKBZiyhbsHc9xLdaX5 3oc6V9GpouB70ktPPtWZV0 GPSfXXWxgWNkZNIlGDJ2PM BlmKBcP9udTKZvCJ8xxfxh ERxgBNuaGLFfqTS9QKJecY GeD8OwDOGfGGkfZYPswfn3 ExKuHv5fjVYtbVgdVIuqKL FtEXNcHHuzTDZmDoDmDL9x O4FBEVCAKCOZQB5WW6cwdR BtYZ6cDRAXRAUVEafDYUnZ SLMZWMISTQmSJ0HBLOVXRx wyECbCHGtzDRTnFOQeTB3S IElOVEVTVElOQUwgTUVUQV DNOPURYOhhHHdPCHrJG3wR UM9WXIDNHwZODr4SUPWLPG VOVElGSUVEXHBhciAtICAg Kc0oZEHSTMMLCnWPIMAAMD CTOR2SMVUTDSwTXZ5CY3ET SVNNUyBJREVOVElGSUVEIE 2QTWIGBLNOCxBnQ4HBKQ4f aQGxBGJcnjXCFfBIF9tYNh tfURHRNpTZDRMOSKTFP9wP IxFYP1tIYRhlTF9BJLWFP8 CHGEghlISsLY2tJHNHX7jX UL6YBCLUUZBXI0GDGBSJTW pBCN5UAPtZACuhQf1xCEiA F69BB1WEStOXVKSRM11YSK 9VUyBPUiBIWVBFUlBMQVNU IRLzV5kRFckUE5tfVKVlGI NeZT51qXXnkVzjPFrwqtVg olL7XOHmCVX8MI7igdRdCC XcnHGudBgurmMuQJlwn5Fu HHcxWLLbFU7ceTujWCKkEF 1vRSIuR6iflS3ajbi0YsFx CCCcUiJ8XBSaoaE9Upg9HG EdXNwws4qct9EgYQJzNCk7 zRtlBtYlPTDha2llmvSyMl ThBQAhHYAoAXDxyUIkE497 q7lzi1psncZorBY0GTYyCL F4JPatrpMgyzL3VDrfxFNq GfP8YCzwrgZfYVrrlhHcxw JhPwv0CQUmC383IZI7mNuh m1xfYBK1XLAmUUHcHgDsBy 4mcURjG345OBFsOFLMSISu tNu0FHHcbgYzcbTovHPWe5 72R980d7ojQYQdzqUozAtY wlurz3qhT835AVQwuYRwur NjToLkTCPbcMIwnXR5GPVk WR4wrytsOTouBJhaSMAokf Y0YHNipCJqI8YxXXFaHY3e ncjkPRN9AWrrCLCgEGD7Ef MiXXEav5Gqukg5PnMtgl1f jz61QMQ5l9SndKlpATC7CU J6NyQdGr0icJHqPQBrID9a CmLgyOPhGWLbsm06kKfcNC zpYRI5JVMxriZsm5Uoc6bq MuHuusTuE2wjW7OwBFCpKL RlKQReDvPxqkMcm4Evl3Fa nHVhvQn2d7wvWDPnKVXuzY obr0foINM6IGNkoRDvO0tb pQ0uPRYoDT3jvbqvm9woWC brYVcuYJCliTF9scU0XLDg kQHuE8IuyC5iXCOcOMwoDN Splxk9HrEoBj3nfTQzgLqf MFxzYmtwYWdlXHBnbmNvbn RccGduZGVjXHBsYWluXHBs YWluXGYwXGZzMjRccWxcbG FuZzEwMzNcaGljaFxmMVxk GeXmQTEfSEvgN8jeWcTiWe HuCch0RIHsdZMmKSPrOuw0 CGTfeUVfRFZFrLimaV9mQN XvtLzqbP0frQU5SPLeeaKg xNDIhC6xZXODoE5tEfN7Qh EdJmD7MDq1UaQjlEPkzC0= CPT Code(s) (test code p7sbtNPtJVDsjPZ0BlOcFZ = 3357) Wac6gjo5SgvVLgzYDlTPcr hNSjcrRmtu27uKG3gN11CJ 6nBENbWbH6HVEeooT7Iqw1 NXMaXGYbaNYgH163a1ynj9 ltzgBzbOS0dOagIMGglsup SwC5WVmoVCPdsxjxFSz1DH enXMLnkWT4RSNzhSAtA3Vm GJCcDB2gogm4LJG9HIgxGB SkBaC2JGHwuYTgVZBcdKjq TZcjl532PQQ7OeLhOIIlbm UvqSctiK6fUcBgWMR7HBXq NSBYIDJccGFyfQ== CLINICAL HISTORY (test x7jomGAdEPUcpYL0DiIhBP code = 3356) Ghp2sxb3RefBSiyTFnQVhr zNRsxaYtbt75wPG2rH86WI 3wCXRlXrF2AHWnxgA0Nqc1 CCErIMVkuVEpR732a7tsj1 akpzPxaQH8CKGhBRMgD5Lk OP9mJLMcyQUtI06duDXdLO C3TPFwCKUbuWWbHMZxRPN2 WDVytIJvM6asSPIhGS6yvp voIJcxDDviLVCosFY1DPSa pLHrC3McRCGpHYcaVWNayw t2YtRhLr8ggVBxiUbvKRmx YXJkXHJpMVxwbGFpblxmcz ScPMSiULGUp43dgIUvRQMz SDCyvtiuHQOox9k0mD48hY AdbBEoWOswIexnqC7fpDLf zMGqMKKmLSXfzIgqW7FmsY N2SYCsH1XxXSW5jDUkALVn thUZaQRnvR0bgCTza2DwjL b9CVEpr9r5sR53tTDee3Gq wUQwOBG6ysKzTVTuDsevBW QeHKPtrVqkDBUgnpYoq2Dh zhY0tTUoOHkwZYYfE9GzRH WvREIuxqQrg4pgqrFrPP9h ZXJccGFyfQ== SPECIMEN SOURCE (test m9ajbUVfCUHrsIX9AsGeDT code = 3377) Zoe7bwg6IjuKYpnVJySMqy pWWrvkNjtl71eRB4aR30RG 3eUBYsAcC6HOViwrU5Viy7 RLOrPGEltVTzN955w6xbs5 fecpDevFA4lIchVBRaztzb HqI4SXrfVKHqznawWBb9DE tySHLgtTB7WGIsdSQuT4Vu HGDoHU5slpv7OFL5KKzeUS OlNuU3BOTcqUBaBVRifXbv JTvdl213KPN3YwZqPAKxqk AboThatO3dRiSlVGAIDnDm DpmxlEM9WLMqOQH4vanbCM ewcmFyLj9jJPYyqYuzKLZp o4rgdezraDTigaG9QMTeIB xwYXJ9 GROSS DESCRIPTION (test y8qyzDTmVQUlnIKTYJQhC8 code = [id number]) ccdfSwZIOmkDOgF5Gciwwf ELjfOQ3iPY6gqSwdqTYltH QsZD5WOYFgVrHeNYAhmPEj cfJyHrIfGKPxfKEmeXN6MD CzHL6dzcloNOczRChzUDUa hjB8HDOxdATiV6IeABStPZ 2oisngOEP8MTbzpJ3okuDI MnmsIp4zhGCdiIptQoRrLc NoYXJzZXQwXGZuaWwgQXJp GAr5yH0QKqmrAEV5SQCLDl hjJVFpQH2Ls9yhQFYnsLKn XQA1GTrxcBVwMOBkDQKdEX q4CHZeRYgeuXEbBS8rsPnh LoxluLizv5HmqFGdLExtQG CvPMMoLXwwKWTvLM6ZAePp MQH9VxL5CTPsDCw1EYx7IM 9WUyAiICAzMDAzOTQxMSIg ZRz3YGkvIQ1IWDAbKNOzDQ H5WnK0DPI1YQSbXJTlHfYk XGYgQXJpYWwgXFxmbCBcXG 5twNzawTUytrPYHlGSuW1n o8rrASkzv8BntZZgSODjsq ANClxlcGljTmVzdERvYzEg DQpcbHRycGFyXGxpbjBccm luMCANClxsdHJjaFxmczIw VXYkWTUfwYSmeB2ctdLrab EmBCGylEOlQPItqcDue2Dd MMgywzSxJWTotJbqNJJ6cL AbMCTpMLSgHSWxJD50EUiW NHMgbmFtZSwgbWVkaWNhbC ByZWNvcmQgbnVtYmVyIGFu GQZsQ4WfmOFzCjMccE4dt8 kkWCXhPGOow25emAP3fwRs EeL7KWKnch9ioZ1eJL75C6 7oUQ7vx6JdtvDqCYSvv2D8 ZSBmcmFnbWVudHMgKGZyb2 6bGP7mPFBqBEJiNRAyTnHf bSBpbiBncmVhdGVzdCBkaW 6pmyJgy17mClWEaDPgd7Cb T3fjTJ9fuBDfn4SrpAe2hU ObWJkbAGWxcJ2vZc7peE48 oN8oZTFpmIDkUSGgs05eoF 9nK4Ybt3O1dFBwSKFfHSGx ciANClxwYXIgDQpLTCAocm VzaWRlbnQpXHBhciANClxw bGFpblxlcGljTmVzdERvYz MsiDrnlY43TYVmoVWsCIA9 VN7oMFJpmdfeFWXpYCWjQB G5ABrofH31bIWiGURzEHFi kVSdrY0Cb5bqNLAzhLTqUA X0WGzxoFYvVCPjNXLuJPoz FeQmX9ZGLDJfJpl8BQk8Eh MtAHv1IOmwA8AVHRRhJIXk TAA7YJVsIpP4WIi3KHFVKk 1zRsQeCxQ9PKQ4MJJ9LWsb IFxcdCAyIFxcZiBBcmlhbC CbSURwCPgourY4DCDgEMDd bKjmgT1aAn8tGG2xrPUpYA EfbV3mEK5wPYIiuhP7LKWt QN1mjEEyFU9GOEEajBWWNM T3CL2zLBETTqrcpBCuKWOv gGpnRSoijV2rFL2BVTh3ab NoXGZzMjAgVGhlIHNwZWNp gKVbVBbzWICbD1PrpjVjJU xrNUUbar0djZfhILjyPhTo bGVkIHdpdGggdGhlIHBhdG toqwVuF2F2eqXrDF5yZHMa HCNhJ0WaHLEfP46lVQByzM 1qYTNzFC5rTQJ3twJvm4Wo cnNlIHBvbHlwIiBhbmQgY2 7tr2tbiOZxt4MoFIT1WQ9s ePpguzUtzCNdv2ByA076HK TlVHC5sLNzuNDfLfGnT44d kxYmXKksUmUnN61weB1mB7 UkTLBvc5XhGTgzJK4qhQ0d BX4aTZplBOLyPIEouPIxTI mmFFU5Ju0bsPRiLFJgklE0 i7ZeJQPwyYvgg1gzXgEszM r2keN9xL3bMWenZDYou3Dx dHRlIEIxLlxwYXIgDQpccG FwKR9ZK1chGNNnn3vhDS40 WKbtIWBuQTpkrDdoyZ2qSL ZfI95wf4VZc9CjODUbKVns u2lqtTzla1MytWImRTevIR GxpCBdJNufvV0jGeMkb4ta cIo5BQjxlsY0QGTqsh0XQw xjzL2xVmPjf2osxEa9PYZD TfqqsyA7d7cleHvpp4OkmW OhIV1CBt8= MICROSCOPIC DESCRIPTION h2ebrUMkVYMrpZR8NlQcWM (test code = 3371) Nyp1wgb0VtaJEqeYPhSRpu qRKlmiTziw53fNI9oR62VV 0qVGFfDpQ9RPGawoZ6Aul8 QXCcCHNknMRhL342z7mvl8 broiDduAA7uFmkQWQeiqqs UdA0MYieJGHhatlkSYr2RE xvTCJeiOP0PWChhAZeE5Qm SYAbCA0faxk0ZSF6QPelRJ EeTjB2SMGzrYAaUKHmxOcv PLkfz239IJG3VpPrUFWhxj BctXbqpD9gNbTiVWZCBRZe h7OnXGOlUUPhtd3= Gross assessment was [facility] performed at ([facility], = 2777) Department of Pathology, [address] [place] [address], Technical component was [facility] performed at ([facility], = 2778) Department of Pathology, [address] [place] [address], Professional component [facility] was performed at (Psychiatric, code = 2779) Department of Pathology, [address] [place] [address], [facility] [id number] 18:40:02 Test Item Value Reference Range Interpretation Comments Case Report (test code Surgical Pathology = 104) Report Case: [id number] Authorizing Provider: Trina Perez MD Collected: 03/08/2022 09:24 AM Ordering Location: [facility] Received: 03/08/2022 02:08 PM SERVICES Pathologist: Pinky Kumar MD Specimens: A) - Biopsy, Gastric, Bx B) - Polyp, Colon - Transverse, cold snare DIAGNOSIS (test code = [id number] 3220) FuZzEwMzNcZnRuYmpcdWMx IHtccnRmMVxlcGljOTYwMl lbiuDeKTJfpSGtL0Rtawlw RHmkZQ3wOD6fxWledKTqhY XrJZLyPyYhh3psu249mKSd w6waFMNClxrokIg2yGutY0 2jk8O9CjhrN89cgEHqQCT4 ZCFdCFZuaWTmCARhFEP0ZS OzzRHwN9puHQTyZU5rcqrw KEoySIivFLQizUB1TAAhiI DdV5QxLCKrKCbkAOPndmu5 KwLeIn2auIPahEurMWwjGP XjYIBvWSabMPGxPvDwKE5n O7RJEGUMSVDTZR9TJ7gtpG YlIA6fEAWPCTOCJnbDXCfO BNIRQTBOJJpIN1VLWSNHEr fvCGeBVErzEBDdATXeVW1U IElOVEVTVElOQUwgTUVUQV DSOKPHOEopKJjMLAiIK4hC NL8VATPPXzWUQc5XZNDHGZ VOVElGSUVEXHBhciAtICAg Dv9yLIZFCKJUOzTENETNCY NDCW9MBDCHDKlDDK7RM2MG SVNNUyBJREVOVElGSUVEIE 8LWZKKEXHFPvGvW1IGUS1g kJBxLGDahuFROxRFK7lGIp ypCATZRsYGEOBECNNCE4hK SjBYM8xEWSguEW0XTHZNZ6 LXMColwRAaYL0iZPXOS6wN PS8RFIGENFFIA3RFUBIFQX eFVF9FDZeTNDitQz8wHBjI P25GI4UPAsYLQDEXD36TUZ 9VUyBPUiBIWVBFUlBMQVNU VHQuB8yVTreVL0joOFMaJV ShFQ57nROeqPynBFjfkuEv ohW4SNIhTRG5RS7qdnErAV DlgKQjyOpxopImJYbag8Zx GPhfMGVgRY0jxKboRLTfFX 5hMBMxV7usnL8nqud6EuVn NCGaPqH0PZVhgiR1Xhx4BS UdKLpou4zdo1WpJBTtIRj2 tCpzShGnODMms8bethWuJp WqAZUdIRJqHQKisZDuZ982 h3rbo3houeHlqHC5MYWzNQ H9BJqdwvMpmiM4BIznoVVk OyZ3VBczibYqMXsedkFjap ZxOcn9XPTnH835BZE2jNdn e4kxJDD5EPOhGLNsEdWjHh 1ctQEeH369GFIzSNAAVDZe lQw3MQKsjvEkltJraJZYt7 42T776w3mjPQPfqjUdgQzN szqcv6hfX530BATmdNLphi EeEoXqYJNbiBBlzPC4TGWf GK3nraqnTPzpUGixBCNbwa A9PSPthCAdH9ZsHIIcXN3m ulwqEVD8PPgoMRWzKLZ5Uy BbHLAjd3Ssyxv8GxLyri6i tt17SKO7r3MmcRuvHBK8AQ K0PjPvFc8svDHuGGOoSV8z SnQelULkXKRnen20eQefEG ygLXY5RRKhdaVol8Lgi4hv PkNjcnMvC2iaI2VcQVTsWY CgBRLiZfRtdpDww6Vfy7Kw rRCqnBs8k8ecATPuMUTjvF kad3chDAY1RHIelKFpC5eu jM3kCZSnJH2wcmsfq0dzEY ipVUwpFMLxbFQ7ikD5RAOu yHQmW3KthT5jCZXqBGgxRM Dxkqh2ZaVhXe5niTHnqHoy MFxzYmtwYWdlXHBnbmNvbn RccGduZGVjXHBsYWluXHBs YWluXGYwXGZzMjRccWxcbG FuZzEwMzNcaGljaFxmMVxk MlWhVJYsWAmwI1hgAcFeNk WcMrw6WEMhxUPbNQAkBam7 WDMptXAcJSWBnMqesE1hJH MhvPykaE6rvBK7LLAoojLo cQRJrE6pHXZQdS4qQjK3Iw XnVmK9WGd4EwWwaBYboT6= CPT Code(s) (test code y4faaLPuOTRuvBZ0VuJbFG = 3357) Goi7imc0OmhOXzaWUaEOxt sFOvmkOisp97mAG5pJ48JT 1xLAYbAjD5TTFcajC7Zij5 LYUcWOYdiMNoW233x2yqe1 odcnGwgXO9nBafCXNfrtmt RdT3ZYqwUSJmxgadKAq7LM ezTOCtmLI8AHQsxGMdR6Bx UKXiXZ1jwpf6MVP1VFmlWT IgMlV4WTQtdXJmWTSnsJha UChno494ZGZ0TsCzGFZkii MeqSworR9xMcSyNYY5GFCe NSBYIDJccGFyfQ== CLINICAL HISTORY (test s1rzcANhGFYvgRO0IgZmCR code = 3356) Nlf1ims8LosLPgfVKyUSvx tIGhafJyef78gYH3sK42PO 1tRAFoDqY1VUEmnpZ5Kxw9 OWYzXIKgwEUaQ352w3glv0 qvmvZjdXG3LRCbUVHtG2Dl GN4jCIJopSRaL44yoFUfND O2HQRgWSBekKMxWCAtOAQ5 CRRyxYFsH6tiOQDxIF0lhj ypYRkyGGseMDOkdLJ3HHRg wJMpH1LyIRWgSOlsSKVqgo f9DxLzGj2pqSPhsUxoIPzq YXJkXHJpMVxwbGFpblxmcz RzNOGqSWCCx08jfWHdWOVy DRNfjjruJMHze7n0lS69jU NmgPLtOKkwNffgsO6avYUd jAHpYUAoOZKagCddV2YgzG C4FEMjR6QsNOY0oYOcLKEl ywPMoMUzeB4zuQKbd2FzeB q3QDKfy0h1qI69cTFqb5Em zUAjPMM1bbWiWPFwRwbzGR QlJMGzjNklQIDsqgErv4Bz ftB0eFDxRTyfVSBxB4GcJV DdRKQiopKmj5mrlzVtYD2c ZXJccGFyfQ== SPECIMEN SOURCE (test r3pdxTWpMYTatTD2YkElWU code = 3377) Fzt2lts0HzjLOfhAGbSEqd vPZfqfMhpx99jGL1kA78PJ 0aODYdUsH5RPEymcT7Knl8 JIIyUEOybBSdL595m6jnw7 kpdrAxmMC5sSamWURfoqcb OdK1FNjsWZSpzmolDKi9IW htXXNpbPI8QMIuzBOpD2Hf NAMjSV6nugi5SHL8XEnaJX KrMaZ2FQVbtHHvOQGxgDrd AWyea519UFE6VoBiSFPaan XemWemyF4dFcYmRCWXUsNz WlvdaHP1LISdDWW9yvpmJQ qoqzRiEl8mTEQuuFceBWAc l9hgpoygeOCpqnM7OEWmRK xwYXJ9 GROSS DESCRIPTION (test p8klgFIiWVTwiREDOUWiP4 code = [id number]) eoqeQjVLTbgHVhG3Pbnnfj WRkqFJ1qNI1xeWhkuKSpzX SsJV3SZODiLfRnSGZmdLFg lpQpNlUiRTBfkYWshUM4NP XkNC4qahadXBovKIypCWEr vvG5WXMjaXDnW6SnIJUwTO 8mqkzeBPI9SJfjfW6bljSM DarhVf4hpWPecEghRfXbPi NoYXJzZXQwXGZuaWwgQXJp HIh5dL7GYlmrCRE5RFHFYv vrERTnRS4Ln6joRYYxyXDr WQJ1TSjusNHmEHAjUOIoLQ i3BCDwLKxiuVZrJM9niHpp BzoonRkku9CayRKbCCwzDN EhTEDrRYvcLHMeYE7KLnUi HOD8QyE5DHXaXOb0QQw2CQ 9WUyAiICAzMDAzOTQxMSIg CTl5QNbsGL7KFIAiCKSdQB H0ZkK3TUK6PZWiYCMpSxAe XGYgQXJpYWwgXFxmbCBcXG 3wjPlodWBjcjSVMpPMjE3y n6nzSThem2DjzACbLBPtvp ANClxlcGljTmVzdERvYzEg DQpcbHRycGFyXGxpbjBccm luMCANClxsdHJjaFxmczIw HMHtOBMoiXRseW3srbTdyj IoEUXazPJpWNKqnnJuj0Vm BJkjljSlSXDqlMdpGUW5nM IqMPZkKLWlWLVmWT31PMzO NHMgbmFtZSwgbWVkaWNhbC ByZWNvcmQgbnVtYmVyIGFu AZKeY4GunYMdWwZvgK1db4 owFDHnSKTtc60kvEA9vhAs XqQ9UBZbpi2clE7vRE16S0 6aYC8iy4WfwdHiUOOsi3D0 ZSBmcmFnbWVudHMgKGZyb2 9iKO5sSJMvCJSaSTWwWeDv bSBpbiBncmVhdGVzdCBkaW 0vvbNjs14jUfJCbYYmh8Nl N5isEL9ksICxz6JnwOa6rY WnHStjRDVgzH9jQo4swY53 rW1yIDGdkQKnDDBbq67ycQ 9uT7Gex7V7pQOzWBKwHNKw ciANClxwYXIgDQpLTCAocm VzaWRlbnQpXHBhciANClxw bGFpblxlcGljTmVzdERvYz DugTuhiT05YDJubUBmKNK0 MF7wRGKyzwgiLPHuYYPyKB J6STjxqF55gGGfGRDgOCMu aFJjeY5Ew0ywGLEqoQIuOJ F3TUspfPOtMXRvAPExAVvl LvAyL8WUUHCfOpm3JHz6Tj LvFEe7VPicG9YUYNBlBDMe WJU3PKLzSjS6AEb9CDMZMj 3tGkIvApX0FWF4KLN4EYca IFxcdCAyIFxcZiBBcmlhbC RlQUUrCKqnrjP4BLAzPQIu rItukT9xCd7oUN7qeYXqBN FthI6eUR4qKVHwtjB4IGZp OJ9cyRHhSS0EFWUdzDFEYH G1ZM8xEULTRsnclEIfXSZk nIrtPRglcG3vTU8XOCu9yz NoXGZzMjAgVGhlIHNwZWNp oKDzPPwdBZUwL5EvaoCcKH raGNOems3aqRpvODqvLoEs bGVkIHdpdGggdGhlIHBhdG bfxrEhD8K4hzPzJR0kLHNw ILBjY7DyCJFzR33cIMHenF 1zQSAsRO0mJQI4agAhp1Qi cnNlIHBvbHlwIiBhbmQgY2 4fx0wflHKph9RbNTY5HL7x sAluocLxxVEbq5EcH501MD OlDMW7iIOicKVfDlMyS83g xaIgCOttLlGiY82hnG2wF6 SyEPHrq2VjAAyzIW3heC4g HG4fJLngDQNcDEAghCOvFA tlHEO3Iv9elQPyGTManeZ0 m4RaPHGfjCmaf6seHhOgmD j9ahX6uN0bMHkpHVEnr4Kq dHRlIEIxLlxwYXIgDQpccG FbIT6XY6fxXYMye0yaMB90 ABcoHXNhZRfafAgcoK1rUC HlD39bh1GEg4LdEZCnDGpu s7hriPgof4KfuPMjDZwhPL IrjWTrYNfjaP0oIsQdc0ve jFp7SVffcpV0QVDggv5DUo dttP5sVaFnh5rzfVe8IHOM OofspbJ1u6dhcWlez0RmyH NiTT7GWp9= MICROSCOPIC DESCRIPTION z7lrvDUuBLHdeLA3PmExEV (test code = 3371) Zek9ena7LqnNZktPGkDAco eTRlciHpoa54jUP0xK66SK 1fYJBlMdA6EFZjexC9Yji2 CFZxLLIxgRVqU965f5fnb2 okpbZylIY4oZinFBYpgaux EbY3WYymUOXzwcgjGCg0HC yzVURacCY5UGIusIIyX3Ys EBSzVD5wfay8RXM7EHnxIK LmGiA2HHItyVVgLCXjwTwk EWifw455ICC9SxNqFMNqow SguIgapE3dZiSmSQKBORXn y6ElOEQaAPArfd5= Gross assessment was [facility]'s performed at (test code [facility], = 2777) Department of Pathology, [address] [place] [address], Technical component was [facility] performed at ([facility], = 2778) Department of Pathology, [address] [place] [address], Professional component [facility] was performed at (Psychiatric, code = 2779) Department of Pathology, [address] [place] [address], [facility] [id number] 18:40:02Surgical Pathology Report Case: [id number] Authorizing Provider: Trina Perez MD Collected: 03/08/2022 09:24 AM Ordering Location: [facility] Received: 03/08/2022 02:08 PM SERVICES [...] were examined Signing Pathologist Direct Phone Line: [phone] signed by Pinky Kumar MD on 03/13/2022 at 6:39 [id number] X 2Esophageal varices without bleeding, unspecified esophageal [...] submitted in toto following filtration in cassette B1.SCOTT(resident)Performed.[facility], Department of Pathology, [address] [place] [address], [facility], [facility] of [facility]ology, [address] [place] [address], [facility], [facility] of [facility]ology, [address] [place] [address], UOQ-Glucose [id number] 09:27:26 Test Item Value Reference Range Interpretation Comments POC-Glucose Meter (test 87 mg/dL 70-110 : TE STED AT [facility] code = 1538) [facility] [place] [address] 7030: Steam Box Tender/Techni cheyenne ID = [id number] for BARRETT, ANGELIC L Lab Interpretation (test Normal code = 08978-1) [facility] [id number] 09:27:26 Test Item Value Reference Range Interpretation Comments POC-Glucose Meter (test 87 mg/dL 70-110 : TE STED AT [facility] code = 1538) [address] [place] [address] 7 7030: Steam Box Tender/Techni cheyenne ID = [id number] for BARRETT, ANGELIC L Lab Interpretation (test Normal code = 39727-2) [facility] [id number] 09:27:26 Test Item Value Reference Range Interpretation Comments POC-Glucose Meter (test 87 mg/dL 70-110 : TE STED AT [facility] code = 1538) [address] [place] [address] 7 7030: Steam Box Tender/Techni cheyenne ID = [id number] for BARRETT, ANGELIC L Lab Interpretation (test Normal code = 39479-7) [facility] [id number] 09:27:26 Test Item Value Reference Range Interpretation Comments POC-Glucose Meter (test 87 mg/dL 70-110 : TE STED AT [facility] code = 1538) [address] [place] [address] 7 4530: Steam Box Tender/Techni cheyenne ID = [id number] for BARRETT, ANGELIC L Lab Interpretation (test Normal code = 48356-4) [facility]ucose [id number] 09:27:26 Test Item Value Reference Range Interpretation Comments POC-Glucose Meter (test 87 mg/dL 70-110 : TE STED AT [facility] code = 1538) [address] [facility] 7 7030: Steam Box Tender/Techni cheyenne ID = [id number] for ANGELIC BARRETT L Lab Interpretation (test Normal code = 77470-9) [facility]ucose [id number] 09:27:26 Test Item Value Reference Range Interpretation Comments POC-Glucose Meter (test 87 mg/dL 70-110 : TE STED AT [facility] code = 1538) [address] [facility] 7 7030: Steam Box Tender/Techni cheyenne ID = [id number] for ANGELIC BARRETT L Lab Interpretation (test Normal code = 96555-7) [facility]-Glucose [id number] 09:27:26 Test Item Value Reference Range Interpretation Comments POC-Glucose Meter (test 87 mg/dL 70-110 : TE STED AT [facility] code = 1538) [address] [facility] 7 7030: Steam Box Tender/Techni cheyenne ID = [id number] for ANGELIC BARRETT L Lab Interpretation (test Normal code = 79642-4) [facility]-GLUCOSE [id number] 09:27:26 Test Item Value Reference Range Interpretation Comments POC-GLUCOSE METER 87 mg/dL 70-110 : TESTED A T [facility] 7200 (BEAKER) (test code = [place] [facility], 1538) [facility] 7703 0: Steam Box Tender/Techni cheyenne ID = [id number] for VERONA OCONNELL GASTRIC EMPTYING STUDY, SOLID 4 [id number] 15:17:00VANG, NA EUGENIA MDReason for Exam:->abdominal distension, diabetes, assess for gastropareisis [facility] 1970 Sex: FFINAL REPORT PROCEDURE: GASTRIC EMPTYING STUDY with Solids/Consensus Standard Protocol CPT CODE: 71436 INDICATION: Abdominal distention with diabetes. PROTOCOL: 0.51 [...] the consensus standard protocol. Signed: Anibal Soto MDRepchildren's mercy hospital Verified Date/Time: 02/14/2022 15:17:33 HEPATITIS A ANTIBODY, [id number] 15:13:22 Test Item Value Reference Range Interpretation Comments HEPATITIS A IGG ANTIBODY (BEAKER) Reactive Nonreactive A (test code = 2797) Steam Box Tender ID - BSBASIC METABOLIC [id number] 14:51:44 Test Item Value Reference Range Interpretation [...] S NOT APPLICABLE FOR DIALYSIS PATIEN TS. Steam Box Tender ID - BSHEPATIC FUNCTION [id number] 14:51:44 Test Item Value Reference Range Interpretation [...] (test code = 29 U/L 6-55 347) Steam Box Tender ID - BSLACTIC ACID, [id number] 14:42:21 Test Item Value Reference Range Interpretation Comments LACTATE BLOOD VENOUS 1.76 mmol/L 0.50-2.20 Specime n slightly (2) (BEAKER) (test hemolyzed code = 4867) Steam Box Tender ID - BSPROTHROMBIN TIME/[id number] 14:38:41 Test Item Value Reference Range Interpretation Comments PROTIME (BEAKER) 13.5 seconds 11.9-14.2 (test code = 759) INR (BEAKER) (test 1.05 See_Comment [Automat ed message] code = 370) The system [employer] generated this result transmitted ref erence range: <=5.90. The reference range was not used to int erpret this result as normal/abnormal . RECOMMENDED COUMADIN/WARFARIN INR THERAPY RANGESSTANDARD DOSE: 2.0 - 3.0 Includes: PROPHYLAXIS for venous thrombosis, systemic embolization; TREATMENT for venous thrombosis and/or pulmonary embolus.HIGH RISK: Target INR is 2.5-3.5 for patients with mechanical heart valves.CBC W/PLT COUNT & AUTO [id number] 14:32:38 Test Item Value Reference Range Interpretation [...] (BEAKER) (test code = 2801) MR, ABDOMEN, [id number] 15:44:00ANETTE HANEY MD Please do per liver protocol Unlisted Reason for Exam - Click Yes and Enter Reason Below->Yes Unlisted Reason for Exam->[facility] 1970 Sex: FFINAL [...] lesion is identified. Status post cholecystectomy. Signed: Mdoesta Chahal MDReport Verified Date/Time: 01/05/2022 15:44:30 ANTI- NUCLEAR ANTIBODY (SAMIA)2021-12-18 11:44:38 Test Item Value Reference Range Interpretation Comments ANTI-NUCLEAR ANTIBODY (SAMIA) (BEAKER) Negative Negative (test code = 418) Test performed by IFA method.Test performed by IFA method.[id number] 17:57:11 Test Item Value Reference Range Interpretation Comments FERRITIN (BEAKER) (test code = 45.90 ng/mL 5.00-275.00 361) Steam Box Tender ID - BSHEPATITIS B SURFACE [id number] 17:21:28 Test Item Value Reference Range Interpretation Comments HEPATITIS B SURFACE ANTIBODY < mIU/mL <8.0 (BEAKER) (test code = 647) Steam Box Tender ID - BSHEPATITIS B SURFACE [id number] 17:09:40 Test Item Value Reference Range Interpretation Comments HEPATITIS B SURFACE ANTIGEN (2) Nonreactive Nonreactive (BEAKER) (test code = 2585) Specimen is considered negative for HBsAg.ALPHA FETOPROTEIN (AFP), TUMOR MARKER 2021-12-17 17:09:40 Test Item Value Reference Range Interpretation Comments ALPHA-FETOPROTEIN (BEAKER) (test 2.3 ng/mL <10.0 code = 1094) Steam Box Tender ID - BSHEPATITIS B CORE ANTIBODY, [id number] 17:09:40 Test Item Value Reference Range Interpretation Comments HEPATITIS B CORE TOTAL ANTIBODY Nonreactive Nonreactive (BEAKER) (test code = 497) Steam Box Tender ID - BSHEPATITIS C [id number] 17:09:40 Test Item Value Reference Range Interpretation Comments HEPATITIS C ANTIBODY (BEAKER) Nonreactive Nonreactive (test code = 367) Steam Box Tender ID - BSBILIRUBIN, [id number] 16:49:19 Test Item Value Reference Range Interpretation Comments BILIRUBIN DIRECT (BEAKER) (test 0.2 mg/dL 0.1-0.5 code = 706) Steam Box Tender ID - BSCOMPREHENSIVE METABOLIC [id number] 16:49:14 Test Item Value Reference Range Interpretation [...] S NOT APPLICABLE FOR DIALYSIS PATIEN TS. Steam Box Tender ID - BSIRON, TIBC, % SAT. (WITHOUT FERRITIN)2021-12-17 16:47:34 Test Item Value Reference Range Interpretation Comments IRON (BEAKER) (test code = 547) 58.0 ug/dL 40.0-160.0 TOTAL IRON BINDING CAPACITY 311 ug/dL 250-450 (BEAKER) (test code = 769) IRON % SATURATION (2) (BEAKER) 19 % 20-55 L (test code = 2590) Steam Box Tender ID - [id number]-6-[id number] 16:47:17 Test Item Value Reference Range Interpretation Comments ALPHA-1 ANTITRYPSIN (BEAKER) 184.50 mg/dL 90.00-200.00 (test code = 502) Steam Box Tender ID - BSLACTIC ACID, [id number] 16:39:11 Test Item Value Reference Range Interpretation Comments LACTATE BLOOD VENOUS 1.29 mmol/L 0.50-2.20 Specime n slightly (2) (BEAKER) (test hemolyzed code = 2872) Steam Box Tender ID - BSPROTHROMBIN TIME/[id number] 16:36:56 Test Item Value Reference Range Interpretation Comments PROTIME (BEAKER) 13.9 seconds 11.9-14.2 (test code = 759) INR (BEAKER) (test 1.09 See_Comment [Automat ed message] code = 370) The system [employer] generated this result transmitted ref erence range: <=5.90. The reference range was not used to int erpret this result as normal/abnormal . RECOMMENDED COUMADIN/WARFARIN INR THERAPY RANGESSTANDARD DOSE: 2.0 - 3.0 Includes: PROPHYLAXIS for venous thrombosis, systemic embolization; TREATMENT for venous thrombosis and/or pulmonary embolus.HIGH RISK: Target INR is 2.5-3.5 for patients with mechanical heart valves.CBC W/PLT COUNT & AUTO [id number] 16:33:51 Test Item Value Reference Range Interpretation [...] (BEAKER) (test code = 2801) STREP A [id number] 00:00:00 Test Item Value Reference Range Interpretation Comments Result (test code = 98265-4) Negative CHEM [id number] 20:32:00 Test Item Value Reference Range Interpretation Comments POC Creatinine (test code = POC 0.6 0.5-1.4 Creatinine) [facility] [employer] [id number] 20:32:00 Test Item Value Reference Range Interpretation Comments eGFR (test code = eGFR) 105 [facility] [employer] [id number] 20:32:00 Test Item Value Reference Range Interpretation Comments POC Creatinine (test code = POC 0.6 0.5-1.4 Creatinine) [facility] [id number] 20:32:00 Test Item Value Reference Range Interpretation Comments eGFR (test code = eGFR) 105 Mic Lebron, STEREOTACTIC BIOPSY, BREAST, [id number] 15:59:00Reason for Exam:->calcificationAddendum BeginsLAIRD HOSPITAL#: [id number]: 05/14/2017 Aditya Corrales M.D. 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 Addendum EndsLAIRD HOSPITAL#: [id number] - MM, STEREOTACTIC BIOPSY, BREAST, LEFTSTEREOTACTIC GUIDED [...] middle depth. The skin was prepped in theusual manner. Local anesthetic was administered to the access site. A skin merissa was made in the breast. The abnormality was approached from the craniocaudal aspect using a prone table. A 9 gauge biopsyneedle was placed adjacent to the abnormality under computer guidance and confirmatory stereotactic mammography images were obtained to document needle placement. Once the needle was documented to be in the correct location, five specimens were obtained using [employer] ([employer] EVIVA device. A clip was inserted into [...] the calcifications. Aditya Corrales M.D. pth/penrad:05/09/2017 11:07:57 Underwater Welder: Felicia Rizzo RT(R)(M), [facility] [address] TISSUE [id number] 12:48:00Surgical Pathology Report Case: [id number] Authorizing Provider: Aditya Corrales MD Collected: 05/09/2017 1110 Ordering Location: [facility] Received: 05/09/2017 1312 Pathologist: Jackie Maradiaga MD Specimen: Breast, Left, LEFT MIDDLE 12 BREAST CALCIFICATION BREAST, LEFT, MIDDLE 12 O'CLOCK, CALCIFICATIONS, STEREOTACTIC CORE NEEDLE BIOPSY: - HYALINIZED FIBROADENOMA - COLUMNAR CELL HYPERPLASIA - COLUMNAR CELL CHANGES - MICROCALCIFICATIONS, COARSE, ASSOCIATED WITH FIBROADENOMA Signing Pathologist Direct Phone Line: [phone] signed by Jackie Maradiaga MD on 05/12/2017 at 12:48 PMIn the sections examined, no atypical hyperplasia or carcinoma is identified.10190Tqhhobkcli lesion Left middle 12 o'clock breast calcifications The specimen is received in a formalin-filled container labeled with the patient's information and labeled "left middle 12 o'clock breast calcifications" and consists of multiple yellow-white breast core biopsies ranging in length from 0.6 to 2.5 cm.Ink code: Black.The specimen is submitted entirely in A1 and A2. CG/ewPerformed.[facility], Department of Pathology, [address] [place] [address], Tel MM, DIGITAL, UNILATERAL, CONFER MARTA, MAMMO, LEFT INCLUDING [id number] 11:07:00Left breast calcificationsMRN#: [id number] - MM, DIGITAL, UNILATERAL, CONFER MARTA, MAMMO, [...] PLACEMENTAwait pathology results. Aditya Ferraro pth/:05/09/2017 11:07:15 Underwater Welder: Felicia Rizzo RT(R)(M), [facility] Mammogram BI-RADS: Post- procedure mammogram for marker placement [id number] MM, MAMMO, SPECIMEN, RADIOGRAPH, LEFT 2017-05-09 11:06:00Reason for exam:->Left breast calcificationsMRN#: [id number] - MM, MAMMO, SPECIMEN, RADIOGRAPH, LEFTSPECIMEN LEFT BREAST: 05/09/2017Five stereotactic guided biopsy specimens were imaged for the area of calcifications located in the left breast at 12 o'clock middle depth. IMPRESSION: SPECIMENThe imaged specimens includes the calcifications. Aditya Corrales M.D. pth/:05/09/2017 11:06:40 Underwater Welder: Felicia BELLA(Linda)(M), [facility] [id number] Lumbar Spine 3 ViewsLumbar Spine 3 ViewsSARS-COV 2 AntigenSARS-COV 2 Antigen
--- NOTE | 2023-04-25 21:29 | EDPHYS ---
Physician Documentation [facility] Name: Dena Nance Age: 53 yrs Sex: Female : 1970 Arrival Date: 04/25/2023 Time: 19:08 Bed Treatment Private MD: Riacrdo Pastor HPI: 04/25 20:35 This 53 yrs old Female presents to ER via Ambulatory with complaints of Wound cp Infection, had a ingrown toe removed and patient states now its infected. 20:35 The patient presents with pain, that is acute, swelling, tenderness. The complaints cp affect the left great toe. 20:35 Context: denies injury. Onset: The symptoms/episode began/occurred today. cp 20:35 Patient reports having ingrown nail removed from left great toe recently and noticing cp discharge from side of toenail. Historical: - Allergies: 19:28 NKA; rv - PMHx: 19:28 cirrhosis of liver; kidney failure; Pancreatitis; gastritis; fatty liver; rv Diverticulitis; Diabetes - NIDDM; Crohn's Disease; Colitis; - PSHx: 19:28 Cholecystectomy; hysterectomy; rv - Immunization history:: Adult Immunizations up to date. - Social history:: Smoking status: Patient denies any tobacco usage or history of. ROS: 20:40 Constitutional: Negative for chills, fever, cp 20:40 MS/extremity: Positive for pain, swelling, tenderness, of the left great toe, Negative for injury or acute deformity, decreased range of motion, paresthesias, 20:40 All other systems are negative, Exam: 20:45 Constitutional: The patient appears in no acute distress, alert, awake, non-toxic, well cp developed, well nourished, 20:45 Musculoskeletal/extremity: Extremities: grossly normal except: noted in the left great cp toe: tenderness, mild swelling along medial side of nail, no drainage expressed, ROM: full active range of motion, in the left great toe, Perfusion: the extremity is normally perfused throughout, Sensation intact. Vital Signs: 19:26 BP 139 / 90; Pulse 64; Resp 16; Temp 98.4; Pulse Ox 100% ; Weight 75.3 kg; Height 5 ft. rv 4 in. ; Pain 8/10; 21:49 BP 137 / 74; Pulse 98; Resp 17; Pulse Ox 98% on R/A; kd3 19:26 Body Mass Index 28.49 (75.30 kg, 162.56 cm) rv 19:26 Pain Scale: Adult rv MDM: 19:42 Patient medically screened. tavo 21:00 Differential diagnosis: fracture, arthritis, gout, cellulitis, abscess. cp 21:28 Data reviewed: vital signs, nurses notes, radiologic studies, plain films. cp 21:28 I considered the following discharge prescriptions or medication management in the cp emergency department Medications were administered in the Emergency Department. See MAR. Counseling: I had a detailed discussion with the patient and/or guardian regarding the historical points, exam findings, and any diagnostic results supporting the discharge/admit diagnosis, radiology results, to return to the emergency department if symptoms worsen or persist or if there are any questions or concerns that arise at home. Response to treatment: the patient's symptoms have mildly improved after treatment, and as a result, I will discharge patient. 04/25 20:33 Order name: XRAY Foot LEFT 3 View cp Administered Medications: 21:45 Drug: Cephalexin PO 500 mg PO once Route: PO; kd3 21:45 Drug: Ibuprofen PO 800 mg PO once Route: PO; kd3 Disposition Summary: 04/25/23 21:29 Discharge Ordered Notes: Location: Home cp Problem: new cp Symptoms: have improved cp Condition: Stable cp Diagnosis - Pain in left toe(s) - left great toe cp Followup: cp - With: Private Physician - When: 2 - 3 days - Reason: Worsening of condition Discharge Instructions: - Discharge Summary Sheet cp - Ingrown Toenail cp Forms: - Medication Reconciliation Form cp - Thank You Letter cp - Antibiotic Education cp - Prescription Opioid Use cp - Patient Portal Instructions cp - Leadership Thank You Letter cp Prescriptions: - Cephalexin 500 mg Oral Capsule - take 1 capsule ORAL route every 8 hours for 10 days; 30 capsule; Refills: 0, cp Product Selection Permitted Signatures: Dispatcher [employer] EDRicardo Modi MD MD cha Page, Corey, PA PA cp Vicente, Ronaldo, RN RN Debi Slade RN RN kd3 Corrections: (The following items were deleted from the chart) 04/26 21:31 04/25 21:00 This 53 yrs old Female presents to ER via Ambulatory with cp complaints of Wound Infection, had a ingrown toe removed and patient states now its infected. cp 04/26 21:37 04/25 21:40 MS/extremity: Positive for pain, swelling, tenderness, of the left great cp toe, Negative for injury or acute deformity, decreased range of motion, paresthesias, cp 04/26 21:04/25 21:40 Constitutional: Negative for chills, fever, cp cp 04/26 21:04/25:40 All other systems are negative, cp cp
--- NOTE | 2023-04-25 21:29 | ER ---
Nurse's Notes [facility] Name: Dena Nance Age: 53 yrs Sex: Female : 1970 Arrival Date: 04/25/2023 Time: 19:08 Bed Treatment Private MD: Diagnosis: Pain in left toe(s)-left great toe Presentation: 04/25 19:26 Chief complaint: Patient states: PAIN AND SWELLING ON THE FIRST TOE OF THE LEFT FOOT. rv NO BLEEDING NOTED AT THIS TIME. Coronavirus screen: At this time, the client does not indicate any symptoms associated with coronavirus-19. Ebola Screen: No symptoms or risks identified at this time. Initial Sepsis Screen: Does the patient meet any 2 criteria? No. Patient's initial sepsis screen is negative. Does the patient have a suspected source of infection? No. Patient's initial sepsis screen is negative. Risk Assessment: Do you want to hurt yourself or someone else? Patient reports no desire to harm self or others. Onset of symptoms was April 25, 2023. 19:26 Method Of Arrival: Ambulatory rv 19:26 Acuity: MARIANA 4 rv Triage Assessment: 19:28 General: Appears comfortable, Behavior is calm, cooperative. Pain: Complains of pain in rv Left first toenail. Neuro: Level of Consciousness is awake, alert, obeys commands, Oriented to person, place, time, situation. Cardiovascular: Capillary refill Patient's skin is warm and dry. Respiratory: Airway is patent Respiratory effort is even, unlabored. GI: No signs and/or symptoms were reported involving the gastrointestinal system. : No signs and/or symptoms were reported regarding the genitourinary system. Derm: Skin is intact. Historical: - Allergies: 19:28 NKA; rv - PMHx: 19:28 cirrhosis of liver; kidney failure; Pancreatitis; gastritis; fatty liver; rv Diverticulitis; Diabetes - NIDDM; Crohn's Disease; Colitis; - PSHx: 19:28 Cholecystectomy; hysterectomy; rv - Immunization history:: Adult Immunizations up to date. - Social history:: Smoking status: Patient denies any tobacco usage or history of. Screenin:14 [facility] ED Fall Risk Assessment (Adult) History of falling in the last 3 months, kd3 including since admission No falls in past 3 months (0 pts) Confusion or Disorientation No (0 pts) Intoxicated or Sedated No (0 pts) Impaired Gait No (0 pts) Mobility Assist Device Used No (0 pt) Altered Elimination No (0 pt) Score/Fall Risk Level 0 - 2 = Low Risk Maintained a safe environment. Abuse screen: Denies threats or abuse. Denies injuries from another. Nutritional screening: No deficits noted. Tuberculosis screening: No symptoms or risk factors identified. Assessment: 20:13 General: Appears in no apparent distress. Behavior is calm, cooperative. Pain: kd3 Complains of pain in Left first toenail. Neuro: Level of Consciousness is awake, alert, obeys commands, Oriented to person, place, time, situation. Respiratory: Airway is patent Trachea midline Respiratory effort is even, unlabored, Respiratory pattern is regular, symmetrical. Vital Signs: 19:26 BP 139 / 90; Pulse 64; Resp 16; Temp 98.4; Pulse Ox 100% ; Weight 75.3 kg; Height 5 ft. rv 4 in. ; Pain 8/10; 21:49 BP 137 / 74; Pulse 98; Resp 17; Pulse Ox 98% on R/A; kd3 19:26 Body Mass Index 28.49 (75.30 kg, 162.56 cm) rv 19:26 Pain Scale: Adult rv ED Course: 19:14 Patient arrived in ED. gm2 19:28 Triage completed. rv 19:28 Arm band placed on right wrist. rv 19:29 Ricardo Ramirez PA is PHCP. cp 19:29 Ricardo Araiza MD is Attending Physician. cp 20:13 Debi Patel, RN is Primary Nurse. kd3 21:20 XRAY Foot LEFT 3 View In Process Unspecified. EDMS 21:48 Patient has correct armband on for positive identification. Provided Education on: kd3 antibiotic. 21:48 No provider procedures requiring assistance completed. Patient did not have IV access kd3 during this emergency room visit. Administered Medications: 21:45 Drug: Cephalexin PO 500 mg PO once Route: PO; kd3 21:45 Drug: Ibuprofen PO 800 mg PO once Route: PO; kd3 Medication: 21:49 VIS not applicable for this client. kd3 Outcome: 21:29 Discharge ordered by . cp 21:48 Discharged to home ambulatory, kd3 21:48 Condition: stable 21:48 Discharge instructions given to patient, Instructed on discharge instructions, follow up and referral plans. medication usage, Demonstrated understanding of instructions, follow-up care, medications, Prescriptions given X 1, 21:50 Patient left the ED. kd3 Signatures: Dispatcher [employer] EDMS Ricardo Ramirez PA PA cp Vicente, Ronaldo RN RN Debi Slade RN RN carol3 Sudha Bashir [facility] [place]
--- NOTE | 2023-04-25 21:33 | RAD REPORT ---
EXAM DESCRIPTION: RAD - Foot Left 3 View - 04/25/2023 9:18 pm CLINICAL HISTORY: Left Foot pain FINDINGS: No fracture or dislocation is seen. No significant bone or joint abnormality noted
[2023-04-25] MEDS ORDERED: CEPHALEXIN 250 MG CAP ONE (21:43)
[2023-04-25] MEDS ORDERED: IBUPROFEN 400 MG TAB ONE (21:43)
== END 2023-04-25 21:50 | disposition home or self-care (01) ==
LOC: ER 19:08
DX: M79.675 Pain in left toe(s) (principal); E11.9 Type 2 diabetes mellitus without complications; K76.0 Fatty (change of) liver, not elsewhere classified; K74.60 Unspecified cirrhosis of liver; Z98.890 Other specified postprocedural states
CPT/HCPCS: 99283

== ENCOUNTER 2023-12-19 15:08 | Emergency (ER) | payer OTHER ==
[2023-12-19 16:50] LABS: Absolute Basophils 0.1 K/uL (0-0.5); Absolute Eosinophils 0.3 K/uL (0-0.5); Absolute Lymphocytes (CBC) 1.8 K/uL (0.7-4.9); Absolute Monocytes 0.5 K/uL (0.1-1.3); Eosinophils % 3.3 % (0-4.4); Hematocrit 41.4 % (36.0-45.0); Hemoglobin 13.4 g/dL (12.0-15.0); MCH 27.5 pg (27.0-35.0); MCHC 32.4 g/dL (32.0-36.0); MPV 8.6 fL (7.6-11.3); Monocytes % 6.1 % (3.3-12.3); Neutrophils % 65.6 % (41.7-73.7); Nucleated Red Blood Cells % 0.1 % (0-0); Platelets 195 thou/uL (152-406); RBC Red Blood Cell Count 4.87 M/uL (3.86-4.86); Red Cell Distribution Width 15.6 % (12.1-15.2)
[2023-12-19] MEDS ORDERED: ONDANSETRON 4 MG/2 ML VIAL ONE (16:59)
[2023-12-19] MEDS ORDERED: NA CHLORIDE 0.9% 1,000 ML ONE (17:00)
[2023-12-19] MEDS ORDERED: FAMOTIDINE 20 MG/2 ML VIAL IV ONE (17:00)
[2023-12-19] MEDS ORDERED: MORPHINE 4 MG/ML SYR ONE (17:00)
[2023-12-19 17:07] LABS: Albumin 3.8 g/dL (3.4-5.0); Anion Gap 6.6 mEq/L (5.0-15.0); Bilirubin Total 0.3 mg/dL (0.2-1.0); Globulin 3.7 g/dL (2.3-3.5); Magnesium 2.1 mg/dL (1.6-2.4); Potassium 3.6 mEq/L (3.5-5.1); Protein, Total 7.5 g/dL (6.4-8.2)
--- NOTE | 2023-12-19 17:23 | RAD REPORT ---
EXAM DESCRIPTION: RAD - Chest Single View - 12/19/2023 5:04 pm CLINICAL HISTORY: upper abdomen pain Chest pain. COMPARISON: <Comparisons> FINDINGS: Portable technique limits examination quality. The lungs are grossly clear. The heart is normal in size. No displaced fractures. IMPRESSION: No acute intrathoracic process suspected.
--- NOTE | 2023-12-19 17:54 | RAD REPORT ---
EXAM DESCRIPTION: CTAbdomen Pelvis W Contrast - 12/19/2023 5:35 pm CLINICAL HISTORY: Abdominal pain. ABD PAIN COMPARISON: <Comparisons> TECHNIQUE: Biphasic CT imaging of the abdomen and pelvis was performed with 100 ml non-ionic IV cont rast. All CT scans are performed using dose optimization technique as appropriate and may include automated exposure control or mA/KV adjustment according to patient size. FINDINGS: The lung bases are clear.Cholecystectomy. The liver, spleen, pancreas, adrenal glands and kidneys are within normal limits. No bowel obstruction, free air, free fluid or abscess. The appendix is normal. Mild sigmoid divertic ulosis. No evidence of significant lymphadenopathy. No suspicious bony findings. IMPRESSION: No acute intra-abdominal or pelvic finding.
[2023-12-19] MEDS ORDERED: LORazepam 2 MG/ML VIAL ONE (18:04)
[2023-12-19 18:05] LABS: Specific Gravity 1.014 (1.005-1.030); Urine Bacteria None Seen /HPF (<20); Urine Bilirubin NEGATIVE (Negative); Urine Blood Negative (Negative); Urine Clarity Extremely Turbid (Clear); Urine Color Colorless (Yellow); Urine Culture Reflex Order REFLEXED; Urine Glucose NEGATIVE (Negative); Urine Ketones NEGATIVE (Negative); Urine Microscopic Reflex YN ORDER UMIC; Urine Mucus Slight /HPF (None Seen); Urine Nitrite NEGATIVE (Negative); Urine Protein NEGATIVE (Negative); Urine RBC None Seen /HPF (None Seen); Urine Urobilinogen Normal (Normal); Urine WBC 20-50 /HPF (<5); Urine pH 5.5 (5.0-7.0)
[2023-12-19] MEDS ORDERED: KETOROLAC 30 MG/ML INJ ONE (18:05)
--- NOTE | 2023-12-19 18:59 | ER ---
Nurse's Notes [facility] Name: Dena Nance Age: 53 yrs Sex: Female : 1970 Arrival Date: 12/19/2023 Time: 15:08 Bed 19 Private MD: Diagnosis: Upper abdominal pain, unspecified;UTI/ Urinary tract infection, site not specified Presentation: 12/18 15:21 Chief complaint: Patient states: she has been having epigastric pain for approx 3 days ap3 that is worse after eating. patient states she had her gallbladder removed 29 years ago. patient reports her pain is currently a 10/10 on the pain scale. Coronavirus screen: At this time, the client does not indicate any symptoms associated with coronavirus-19. Ebola Screen: No symptoms or risks identified at this time. Initial Sepsis Screen: Does the patient meet any 2 criteria? No. Patient's initial sepsis screen is negative. Does the patient have a suspected source of infection? No. Patient's initial sepsis screen is negative. Risk Assessment: Do you want to hurt yourself or someone else? Patient reports no desire to harm self or others. Onset of symptoms was December 16, 2023. 15:21 Method Of Arrival: Ambulatory ap3 15:21 Acuity: MARIANA 3 ap3 Triage Assessment: 15:22 General: Appears in no apparent distress. Behavior is calm, cooperative, appropriate ap3 for age. Pain: Complains of pain in epigastric area Pain currently is 10 out of 10 on a pain scale. Pain began 2-3 days ago. Neuro: Level of Consciousness is awake, alert, obeys commands, Oriented to person, place, time, situation, Appropriate for age. Cardiovascular: Patient's skin is warm and dry. Respiratory: Airway is patent Respiratory effort is even, unlabored, Respiratory pattern is regular, symmetrical. GI: Reports upper abdominal pain. Historical: - Allergies: 15:22 NKA; ap3 - PMHx: 15:22 cirrhosis of liver; Colitis; Crohn's Disease; Diabetes - NIDDM; Diverticulitis; fatty ap3 liver; gastritis; kidney failure; Pancreatitis; - PSHx: 15:22 Cholecystectomy; hysterectomy; ap3 - Immunization history:: Client reports receiving the 2nd dose of the Covid vaccine. - Infectious Disease History:: Denies. - Social history:: Smoking status: Patient denies any tobacco usage or history of. Screenin:23 [facility] ED Fall Risk Assessment (Adult) History of falling in the last 3 months, ap3 including since admission No falls in past 3 months (0 pts) Confusion or Disorientation No (0 pts) Intoxicated or Sedated No (0 pts) Impaired Gait No (0 pts) Mobility Assist Device Used No (0 pt) Altered Elimination No (0 pt) Score/Fall Risk Level 0 - 2 = Low Risk Oriented to surroundings, Maintained a safe environment, Educated pt \T\ family on fall prevention, incl call for assistance when getting out of bed, Assessed \T\ reinforced patient's understanding of fall precautions, Provided non-skid footwear, Hourly rounding (assess needs \T\ fall precautionary measures) done, Used ambulatory aids as needed (educated on \T\ assisted with), Used gait belt as appropriate. Abuse screen: Denies threats or abuse. Nutritional screening: No deficits noted. Tuberculosis screening: No symptoms or risk factors identified. Assessment: 16:40 General: Appears in no apparent distress. uncomfortable, Behavior is calm, cooperative, nj1 appropriate for age. Pain: Complains of pain in abdomen Pain currently is 10 out of 10 on a pain scale. 16:40 Neuro: Level of Consciousness is awake, alert, obeys commands, Oriented to person, nj1 place, time, situation. Cardiovascular: Patient's skin is warm and dry. Respiratory: Airway is patent Respiratory effort is even, unlabored. GI: Reports epigastric pain, nausea. 17:58 Reassessment: Patient appears in no apparent distress at this time. Patient and/or nj1 family updated on plan of care and expected duration. Pain level reassessed. Patient is alert, oriented x 3, equal unlabored respirations, skin warm/dry/pink. 18:40 Reassessment: Patient appears in no apparent distress at this time. Patient and/or nj1 family updated on plan of care and expected duration. Pain level reassessed. Patient is alert, oriented x 3, equal unlabored respirations, skin warm/dry/pink. Vital Signs: 15:21 BP 141 / 62; Pulse 84; Resp 17; Temp 97.6; Pulse Ox 100% ; Weight 74.84 kg; Height 5 ap3 ft. 4 in. ; Pain 10/10; 16:35 BP 127 / 96; Pulse 84; Resp 17; Pulse Ox 98% ; nj1 18:13 BP 155 / 71; Pulse 79; Resp 16; Pulse Ox 96% on R/A; nj1 18:40 BP 115 / 64; Pulse 80; Resp 16; Pulse Ox 95% ; Pain 10/10; nj1 19:46 Pain 9/10; nj1 15:21 Body Mass Index 28.32 (74.84 kg, 162.56 cm) ap3 15:21 Pain Scale: Adult ap3 18:40 Pain Scale: Adult nj1 19:46 Pain Scale: Adult nj1 ED Course: 15:11 Patient arrived in ED. mg5 15:14 Ricardo Ramirez PA is PHCP. cp 15:14 George Brian MD is Attending Physician. cp 15:22 Triage completed. ap3 15:23 Arm band placed on right wrist. ap3 16:32 Leola Victor, SHADE is Primary Nurse. nj1 16:40 Inserted saline lock: 20 gauge in right antecubital area, using aseptic technique. nj1 Blood collected. 16:49 Patient has correct armband on for positive identification. Bed in low position. Call nj1 light in reach. Provided Education on: call light, fall precautions. 17:06 XRAY Chest (1 view) In Process Unspecified. EDMS 17:36 CT Abd/Pelvis - IV Contrast Only In Process Unspecified. EDMS 17:58 Notified Nurse Practitioner and/or Physician Kelly Machine Operator of co pain. nj1 18:40 Notified Nurse Practitioner and/or Physician Kelly Machine Operator of pain remains the same even nj1 after medications. 19:30 No provider procedures requiring assistance completed. nj1 19:30 IV discontinued, intact, bleeding controlled, Pressure dressing applied. nj1 Administered Medications: 17:00 Drug: Ondansetron IVP 4 mg IVP once; over 2 minutes Route: IVP; Site: right antecubital;nj1 17:56 Follow up: Response: No adverse reaction nj1 17:00 Drug: NS 0.9% IV 1000 ml IV at 1 bolus Per protocol; 1000 mL bolus Route: IV; Rate: 1 nj1 bolus; Site: right antecubital; 18:30 Follow up: Response: No adverse reaction; IV Status: Completed infusion; IV Intake: nj1 1000ml 17:02 Drug: Famotidine IVP 20 mg IVP once; dilute with 10 mL 0.9% NaCl; give over 2 minutes nj1 Route: IVP; Site: right antecubital; 17:56 Follow up: Response: No adverse reaction nj1 17:04 Drug: morphine IVP or IV 4 mg IVP once over 4 mins Route: IVP; Infused Over: 4 mins; nj1 Site: right antecubital; 17:56 Follow up: Response: No adverse reaction; Pain is unchanged, physician notified nj1 18:08 Drug: Ketorolac IVP 30 mg IVP once Route: IVP; Site: right antecubital; nj1 18:41 Follow up: Response: No adverse reaction nj1 18:42 Follow up: Response: Pain is unchanged, physician notified nj1 18:10 Drug: Ativan IVP 1 mg IVP once Route: IVP; Site: right antecubital; nj1 18:41 Follow up: Response: No adverse reaction nj1 19:16 Drug: fentaNYL (PF) IVP 50 mcg IVP once Route: IVP; Site: right antecubital; nj1 19:46 Follow up: Pain 9/10 Adult; Response: No adverse reaction; Pain is decreased nj1 19:19 Drug: Rocephin IV 1 grams IV at calculated rate once; Given slow IV push per pharmacy nj1 instructions Route: IV; Rate: calculated rate; Site: right antecubital; 19:30 Follow up: Response: No adverse reaction nj1 Medication: 19:40 VIS not applicable for this client. nj1 Intake: 18:30 IV: 1000ml; Total: 1000ml. nj Outcome: 18:58 Discharge ordered by . latosha 19:40 Discharged to home ambulatory, [facility] 19:40 Condition: stable 19:40 Discharge instructions given to patient, Instructed on discharge instructions, follow up and referral plans. medication usage, Demonstrated understanding of instructions, follow-up care, medications, Prescriptions given X 3, 19:42 Patient left the ED. [facility] Signatures: Dispatcher [employer] EDMS Ricardo Ramirez PA PA cp Prokisch, Amanda RN RN ap3 Leola Victor RN RN nj1 Mel Thorpe mg5 Corrections: (The following items were deleted from the chart) 19:45 19:30 Discharged to home ambulatory, [place] [id number] 19:45 19:30 Condition: stable nj1 nj1 19:45 19:30 Discharge instructions given to patient, Instructed on discharge instructions, nj1 follow up and referral plans. medication usage, Demonstrated understanding of instructions, follow-up care, medications, Prescriptions given X 3, nj1
--- NOTE | 2023-12-19 18:59 | EDPHYS ---
Physician Documentation [facility] Name: Dena Nance Age: 53 yrs Sex: Female : 1970 Arrival Date: 12/19/2023 Time: 15:08 Bed 19 Private MD: ED Physician George Brian HPI: 12/18 15:45 This 53 yrs old Female presents to ER via Ambulatory with complaints of cp Abdominal Pain. 15:45 The patient presents with abdominal pain in the epigastric area, in the upper abdomen. cp 15:45 Onset: The symptoms/episode began/occurred 3 day(s) ago. cp 15:45 Associated signs and symptoms: Pertinent positives: nausea and vomiting, Pertinent cp negatives: chest pain, constipation, diarrhea, fever, vomiting blood. The symptoms are described as constant. Severity of pain: in the emergency department the pain is a 10 / 10. Historical: - Allergies: 15:22 NKA; ap3 - PMHx: 15:22 cirrhosis of liver; Colitis; Crohn's Disease; Diabetes - NIDDM; Diverticulitis; fatty ap3 liver; gastritis; kidney failure; Pancreatitis; - PSHx: 15:22 Cholecystectomy; hysterectomy; ap3 - Immunization history:: Client reports receiving the 2nd dose of the Covid vaccine. - Infectious Disease History:: Denies. - Social history:: Smoking status: Patient denies any tobacco usage or history of. ROS: 15:50 Constitutional: Negative for body aches, chills, fever, poor PO intake, cp 15:50 Eyes: Negative for injury, pain, redness, and discharge, cp 15:50 ENT: Negative for drainage from ear(s), ear pain, sore throat, difficulty swallowing, difficulty handling secretions, 15:50 Cardiovascular: Negative for chest pain, edema, palpitations, 15:50 Respiratory: Negative for cough, shortness of breath, wheezing, 15:50 Abdomen/GI: Positive for abdominal pain, nausea and vomiting, Negative for diarrhea, constipation, hematemesis, 15:50 Back: Negative for pain at rest, pain with movement, 15:50 : Negative for urinary frequency, 15:50 Neuro: Negative for altered mental status, headache, numbness, weakness, 15:50 All other systems are negative, Exam: 15:55 Constitutional: The patient appears in no acute distress, alert, awake, cp non-diaphoretic, non-toxic, well developed, well nourished, uncomfortable, 15:55 Head/Face: Normocephalic, atraumatic. cp 15:55 Eyes: Periorbital structures: appear normal, Conjunctiva: normal, no exudate, no injection, Sclera: no appreciated abnormality, Lids and lashes: appear normal, bilaterally, 15:55 ENT: External ear(s): are unremarkable, Nose: is normal, Mouth: Lips: moist, Oral mucosa: pink and intact, moist, Posterior pharynx: Airway: no evidence of obstruction, patent, 15:55 Neck: ROM/movement: is normal, is supple, without pain, no range of motions limitations, 15:55 Chest/axilla: Inspection: normal, 15:55 Cardiovascular: Rate: normal, Rhythm: regular, 15:55 Respiratory: the patient does not display signs of respiratory distress, Respirations: normal, no use of accessory muscles, no retractions, labored breathing, is not present, Breath sounds: are clear throughout, no decreased breath sounds, no stridor, no wheezing, 15:55 Abdomen/GI: Inspection: abdomen appears normal, Bowel sounds: active, all quadrants, Palpation: soft, in all quadrants, moderate abdominal tenderness, in the epigastric area, right upper quadrant and left upper quadrant, rebound tenderness, is not appreciated, involuntary guarding, is not appreciated, 15:55 Back: CVA tenderness, is absent, 15:55 Neuro: Orientation: to person, place \T\ time. Mentation: is normal, Motor: moves all fours, strength is normal, Sensation: is normal, Vital Signs: 15:21 BP 141 / 62; Pulse 84; Resp 17; Temp 97.6; Pulse Ox 100% ; Weight 74.84 kg; Height 5 ap3 ft. 4 in. ; Pain 10/10; 16:35 BP 127 / 96; Pulse 84; Resp 17; Pulse Ox 98% ; nj1 18:13 BP 155 / 71; Pulse 79; Resp 16; Pulse Ox 96% on R/A; nj1 18:40 BP 115 / 64; Pulse 80; Resp 16; Pulse Ox 95% ; Pain 10/10; nj1 19:46 Pain 9/10; nj1 15:21 Body Mass Index 28.32 (74.84 kg, 162.56 cm) ap3 15:21 Pain Scale: Adult ap3 18:40 Pain Scale: Adult nj1 19:46 Pain Scale: Adult nj1 MDM: 15:30 Patient medically screened. 17:00 Differential diagnosis: bowel obstruction, gastritis, pancreatitis, Peptic Ulcer cp Disease, Perf. Duodenal Ulcer, Perf. Gastric Ulcer, choledocholithiasis. 18:58 Data reviewed: vital signs, nurses notes, lab test result(s), radiologic studies, CT cp scan. 18:58 I considered the following discharge prescriptions or medication management in the emergency department Medications were administered in the Emergency Department. See MAR. Counseling: I had a detailed discussion with the patient and/or guardian regarding the historical points, exam findings, and any diagnostic results supporting the discharge/admit diagnosis, lab results, radiology results, the need for outpatient follow up, a relocation director, to return to the emergency department if symptoms worsen or persist or if there are any questions or concerns that arise at home. Response to treatment: the patient's symptoms have markedly improved after treatment, and as a result, I will discharge patient. Special discussion: Based on the patient's Hx, exam, and Dx evaluation, there is no indication for emergent surgery or inpatient Tx. It is understood by the patient/guardian that if the Sx's persist or worsen they need to return immediately for re-evaluation. 12/18 16:31 Order name: CBC with Diff; Complete Time: 16:52 12/18 16:52 Interpretation: Normal except: RBC 4.87; RDW 15.6. 12/18 16:31 Order name: CMP; Complete Time: 17:56 12/18 17:56 Interpretation: Normal except: GLUC 154; AST 13; GLOB 3.7; A/G 1.0. 12/18 16:31 Order name: Lipase; Complete Time: 17:56 12/18 17:56 Interpretation: Reviewed. 12/18 16:31 Order name: Urinalysis w/ reflexes; Complete Time: 18:58 12/18 16:31 Order name: Magnesium; Complete Time: 17:56 12/18 18:09 Order name: Urine Culture EDNV 12/18 16:31 Order name: XRAY Chest (1 view); Complete Time: 17:56 12/18 17:57 Interpretation: Report review. 12/18 16:54 Order name: CT Abd/Pelvis - IV Contrast Only; Complete Time: 17:56 cp 12/18 16:31 Order name: IV Saline Lock; Complete Time: 16:50 cp 12/18 16:31 Order name: Labs collected and sent; Complete Time: 16:50 cp Administered Medications: 17:00 Drug: Ondansetron IVP 4 mg IVP once; over 2 minutes Route: IVP; Site: right antecubital;nj1 17:56 Follow up: Response: No adverse reaction nj1 17:00 Drug: NS 0.9% IV 1000 ml IV at 1 bolus Per protocol; 1000 mL bolus Route: IV; Rate: 1 nj1 bolus; Site: right antecubital; 18:30 Follow up: Response: No adverse reaction; IV Status: Completed infusion; IV Intake: nj1 1000ml 17:02 Drug: Famotidine IVP 20 mg IVP once; dilute with 10 mL 0.9% NaCl; give over 2 minutes nj1 Route: IVP; Site: right antecubital; 17:56 Follow up: Response: No adverse reaction nj1 17:04 Drug: morphine IVP or IV 4 mg IVP once over 4 mins Route: IVP; Infused Over: 4 mins; nj1 Site: right antecubital; 17:56 Follow up: Response: No adverse reaction; Pain is unchanged, physician notified nj1 18:08 Drug: Ketorolac IVP 30 mg IVP once Route: IVP; Site: right antecubital; nj1 18:41 Follow up: Response: No adverse reaction nj1 18:42 Follow up: Response: Pain is unchanged, physician notified nj1 18:10 Drug: Ativan IVP 1 mg IVP once Route: IVP; Site: right antecubital; nj1 18:41 Follow up: Response: No adverse reaction nj1 19:16 Drug: fentaNYL (PF) IVP 50 mcg IVP once Route: IVP; Site: right antecubital; nj1 19:46 Follow up: Pain 9/10 Adult; Response: No adverse reaction; Pain is decreased nj1 19:19 Drug: Rocephin IV 1 grams IV at calculated rate once; Given slow IV push per pharmacy nj1 instructions Route: IV; Rate: calculated rate; Site: right antecubital; 19:30 Follow up: Response: No adverse reaction nj1 Disposition Summary: 12/19/23 18:58 Discharge Ordered Notes: Location: Home cp Problem: an ongoing problem cp Symptoms: have improved cp Condition: Stable cp Diagnosis - Upper abdominal pain, unspecified cp - UTI/ Urinary tract infection, site not specified cp Followup: cp - With: Private Physician - When: 2 - 3 days - Reason: Recheck today's complaints Discharge Instructions: - Discharge Summary Sheet cp - Abdominal Pain, Adult cp Forms: - Medication Reconciliation Form cp - Antibiotic Education cp - Prescription Opioid Use cp - Patient Portal Instructions cp - Leadership Thank You Letter cp Prescriptions: - Carafate 1 gram Oral tablet - take 1 tablet ORAL route 4 times per day take on an empty stomach, beginning on cp waking and last dose at bedtime. dissolve tablet in 6 ounces warm water before ingestion; 100 tablet; Refills: 0, Product Selection Permitted - Zofran 4 mg Oral Tablet - take 1 tablet ORAL route every 12 hours As needed; 20 tablet; Refills: 0, cp Product Selection Permitted - Macrobid 100 mg Oral Capsule - take 1 capsule ORAL route every 12 hours for 7 days; 14 capsule; Refills: 0, cp Product Selection Permitted Addendum: 12/21/2023 05:48 I was immediately available for consultation during this patient's visit. I did not e c2 personally see the patient or discuss the patient with the MJ. . Signatures: Dispatcher [employer] EDMS Ricardo Ramirez PA PA cp Prokisch, Amanda, RN RN ap3 Leola Victor RN RN nj1 George Brian MD MD ec2 Corrections: (The following items were deleted from the chart) 12/18 16:31 16:31 CBC+H.LAB.BRZ ordered. EDMS EDMS 16:31 16:31 COMPREHENSIVE METABOLIC PANEL+C.LAB.BRZ ordered. EDMS EDMS 16:31 16:31 LIPASE+C.LAB.BRZ ordered. EDMS EDMS 16:31 16:31 Urinalysis+U.LAB.BRZ ordered. EDMS EDMS 16:31 16:31 MAGNESIUM+C.LAB.BRZ ordered. EDMS EDMS 16:31 16:31 Chest Single View+RAD.RAD.BRZ ordered. EDMS EDMS
[2023-12-19] MEDS ORDERED: CEFTRIAXONE 1000 MG/VIAL ONE (19:07)
[2023-12-19] MEDS ORDERED: FENTANYL CITR 100 MCG/2 ML ONE (19:07)
[2023-12-19 21:25] VITALS: BP 115/64; TEMP 97.6; O2SAT 95
== END 2023-12-19 19:42 | disposition home or self-care (01) ==
LOC: ER 15:08
DX: R10.13 Epigastric pain (principal); N39.0 Urinary tract infection, site not specified; E11.9 Type 2 diabetes mellitus without complications; K50.90 Crohn's disease, unspecified, without complications; K74.60 Unspecified cirrhosis of liver; K76.0 Fatty (change of) liver, not elsewhere classified; Z90.49 Acquired absence of other specified parts of digestive tract
CPT/HCPCS: 96361; 87088; 85025; 81001; 87086; 36415; 83735; 83690; 80053; 74177; 71045; 96375; 96374; 99284; Q9967; J3010; J2405; J7030; J0696

== ENCOUNTER 2024-07-14 08:21 | Emergency (ER) | payer OTHER ==
[2024-07-14 09:18] LABS: SARS-CoV-2 Antigen CONTROL BLUE LINE VIS/BG OK; SARS-CoV-2 Antigen Rapid Res Negative (Negative)
--- NOTE | 2024-07-14 10:08 | EDPHYS ---
Physician Documentation [facility] Name: Dena Nance Age: 54 yrs Sex: Female : 1970 Arrival Date: 07/14/2024 Time: 08:21 Bed 20 Private MD: ED Physician Jose Armando Kumari HPI: 07/14 08:40 This 54 yrs old Female presents to ER via Ambulatory with complaints of Flu sp3 Symptoms. 08:40 54-year-old female with history of liver cirrhosis, Crohn's disease, diabetes, prior sp3 pancreatitis now presents as respiratory symptoms for approximately 2 to 3 days consisting of body aches, cough, congestion, rhinorrhea with mild nausea without any other symptoms. Review of systems negative for headache, neck pain, documented fever, vomiting, diarrhea, abdominal pain, back pain, syncope, known sick contacts, travel history, or any other signs or symptoms on ROS at this time.. Historical: - Allergies: 08:31 NKA; hb - Home Meds: 08:32 Alprazolam Oral [Active]; dicyclomine 20 mg Oral tab 4 times per day [Active]; hb gabapentin 300 mg Oral cap 3 times per day [Active]; glimepiride 4 mg Oral tab twice a day [Active]; lovastatin 40 mg Oral tab 1 tab once daily [Active]; metformin 1 Oral tab 2 times per day [Active]; omeprazole 40 mg Oral cpDR once daily [Active]; sertraline 50 mg Oral tab 1 tab once daily [Active]; trazodone 50 mg Oral tab 2 times per day [Active]; Toujeo SoloStar subcutaneous [Active]; - PMHx: 08:31 Diverticulitis; Crohn's Disease; cirrhosis of liver; Diabetes - NIDDM; Pancreatitis; hb fatty liver; gastritis; Colitis; kidney failure; - PSHx: 08:31 Cholecystectomy; hysterectomy; hb - Immunization history:: Adult Immunizations up to date. - Infectious Disease History:: Denies. - Social history:: Smoking status: Patient denies any tobacco usage or history of. ROS: 08:41 Constitutional: Negative for fever, chills, and weight loss, Eyes: Negative for injury, sp3 pain, redness, and discharge, Neck: Negative for injury, pain, and swelling, Cardiovascular: Negative for chest pain, palpitations, and edema, Abdomen/GI: Negative for abdominal pain, nausea, vomiting, diarrhea, and constipation, Back: Negative for injury and pain, MS/Extremity: Negative for injury and deformity, Skin: Negative for injury, rash, and discoloration, Neuro: Negative for headache, weakness, numbness, tingling, and seizure, Psych: Negative for depression, anxiety, suicide ideation, homicidal ideation, and hallucinations, Allergy/Immunology: Negative for hives, rash, and allergies, Endocrine: Negative for neck swelling, polydipsia, polyuria, polyphagia, and marked weight changes, Hematologic/Lymphatic: Negative for swollen nodes, abnormal bleeding, and unusual bruising, 08:41 All other systems are negative, Exam: 08:41 Constitutional: This is a well developed, well nourished patient who is awake, alert, sp3 and in no acute distress. Head/Face: Normocephalic, atraumatic. Eyes: Pupils equal round and reactive to light, extra-ocular motions intact. Lids and lashes normal. Conjunctiva and sclera are non-icteric and not injected. Cornea within normal limits. Periorbital areas with no swelling, redness, or edema. Neck: Trachea midline, no thyromegaly or masses palpated, and no cervical lymphadenopathy. Supple, full range of motion without nuchal rigidity, or vertebral point tenderness. No Meningismus. Chest/axilla: Normal chest wall appearance and motion. Nontender with no deformity. No lesions are appreciated. Cardiovascular: Regular rate and rhythm with a normal S1 and S2. No gallops, murmurs, or rubs. Normal PMI, no JVD. No pulse deficits. Abdomen/GI: Soft, non-tender, with normal bowel sounds. No distension or tympany. No guarding or rebound. No evidence of tenderness throughout. Back: No spinal tenderness. No costovertebral tenderness. Full range of motion. Skin: Warm, dry with normal turgor. Normal color with no rashes, no lesions, and no evidence of cellulitis. MS/ Extremity: Pulses equal, no cyanosis. Neurovascular intact. Full, normal range of motion. Neuro: Awake and alert, GCS 15, oriented to person, place, time, and situation. Cranial nerves II-XII grossly intact. Motor strength 5/5 in all extremities. Sensory grossly intact. Cerebellar exam normal. Normal gait. Psych: Awake, alert, with orientation to person, place and time. Behavior, mood, and affect are within normal limits. 08:41 Respiratory: Mild cough noted and rhinorrhea. Afebrile in the ED with normal vital signs., Vital Signs: 08:29 BP 110 / 66; Pulse 89; Resp 16; Temp 98.4(O); Pulse Ox 99% on R/A; Weight 70.31 kg; hb Height 5 ft. 4 in. ; Pain 8/10; 08:29 Body Mass Index 26.61 (70.31 kg, 162.56 cm) hb 08:29 Pain Scale: Adult hb MDM: 08:32 Medical Screening Exam initiated sp3 08:42 Data reviewed: vital signs, nurses notes, lab test result(s), radiologic studies. ED sp3 course: 54-year-old female with PMH above now with upper respiratory symptoms. Differential diagnosis includes Monia, bronchitis, viral illness, COVID-19, influenza, RSV, other viral process, among others. I am not highly suspicious of ACS, PE, sepsis, shock, liver failure, or any other critical concerning pathology at this time. Disposition pending workup and patient course.. 10:07 ED course: Swabs negative and chest x-ray demonstrates no significant abnormality. sp3 Probable viral illness and we will send home on Tessalon and diclofenac.. 07/14 08:32 Order name: Strep sp3 07/14 08:32 Order name: Flu; Complete Time: 09:47 sp3 07/14 08:32 Order name: RSV; Complete Time: 09:47 sp3 07/14 08:32 Order name: SARS RAPID; Complete Time: 09:47 sp3 07/14 09:21 Order name: Throat Culture EDSC 07/14 09:14 Order name: CXR XRAY sp3 Administered Medications: 10:16 Drug: Ibuprofen PO 600 mg PO once Route: PO; hb 10:16 Follow up: Response: Medication administered at discharge. hb 10:16 Drug: Tessalon Perle PO 100 mg PO once Route: PO; hb 10:16 Follow up: Response: Medication administered at discharge. hb Disposition Summary: 07/14/24 10:08 Discharge Ordered Notes: Location: Home sp3 Condition: Stable sp3 Diagnosis - Viral illness, viral syndrome, upper respiratory infection sp3 Followup: sp3 - With: Private Physician - When: Upon discharge from the Emergency Department - Reason: Continuance of care Discharge Instructions: - Discharge Summary Sheet sp3 - Viral Illness, Adult sp3 Forms: - Work release form hb - Medication Reconciliation Form sp3 - Antibiotic Education sp3 - Prescription Opioid Use sp3 - Patient Portal Instructions sp3 - Leadership Thank You Letter sp3 Prescriptions: - Tessalon Perles 100 mg Oral Capsule - take 1 capsule ORAL route every 8 hours As needed; 15 capsule; Refills: 0, sp3 Product Selection Permitted - Diclofenac Sodium 75 mg Oral Tablet Sustained Release - take 1 tablet ORAL route 2 times per day; 30 tablet; Refills: 0, Product sp3 Selection Permitted Signatures: Dispatcher [employer] Taryn Sykes RN RN hb Patel, Setul, MD MD sp3
--- NOTE | 2024-07-14 10:08 | ER ---
Nurse's Notes [facility] Name: Dena Nance Age: 54 yrs Sex: Female : 1970 Arrival Date: 07/14/2024 Time: 08:21 Bed 20 Private MD: Diagnosis: Viral illness, viral syndrome, upper respiratory infection Presentation: 07/14 08:29 Chief complaint: Headache, subjective fever, painful cough, body aches, and sore throat hb x 2 days. Coronavirus screen: Client presents with at least one sign or symptom that may indicate coronavirus-19. Provider contacted for isolation considerations. Ebola Screen: No symptoms or risks identified at this time. Initial Sepsis Screen: Does the patient meet any 2 criteria? No. Patient's initial sepsis screen is negative. Does the patient have a suspected source of infection? No. Patient's initial sepsis screen is negative. Risk Assessment: Do you want to hurt yourself or someone else? Patient reports no desire to harm self or others. Onset of symptoms was July 13, 2024. 08:29 Method Of Arrival: Ambulatory hb 08:29 Acuity: MARIANA 4 hb Triage Assessment: 08:31 General: Appears in no apparent distress. Behavior is calm, cooperative. Pain: Pain hb currently is 8 out of 10 on a pain scale. Neuro: Level of Consciousness is awake, alert, obeys commands, Oriented to person, place, time, situation. Cardiovascular: Patient's skin is warm and dry. Respiratory: Respiratory effort is even, unlabored, Respiratory pattern is regular, symmetrical. Historical: - Allergies: 08:31 NKA; hb - Home Meds: 08:32 Alprazolam Oral [Active]; dicyclomine 20 mg Oral tab 4 times per day [Active]; hb gabapentin 300 mg Oral cap 3 times per day [Active]; glimepiride 4 mg Oral tab twice a day [Active]; lovastatin 40 mg Oral tab 1 tab once daily [Active]; metformin 1 Oral tab 2 times per day [Active]; omeprazole 40 mg Oral cpDR once daily [Active]; sertraline 50 mg Oral tab 1 tab once daily [Active]; trazodone 50 mg Oral tab 2 times per day [Active]; Toujeo SoloStar subcutaneous [Active]; - PMHx: 08:31 Diverticulitis; Crohn's Disease; cirrhosis of liver; Diabetes - NIDDM; Pancreatitis; hb fatty liver; gastritis; Colitis; kidney failure; - PSHx: 08:31 Cholecystectomy; hysterectomy; hb - Immunization history:: Adult Immunizations up to date. - Infectious Disease History:: Denies. - Social history:: Smoking status: Patient denies any tobacco usage or history of. Screenin:31 [facility] ED Fall Risk Assessment (Adult) History of falling in the last 3 months, hb including since admission No falls in past 3 months (0 pts) Confusion or Disorientation No (0 pts) Intoxicated or Sedated No (0 pts) Impaired Gait No (0 pts) Mobility Assist Device Used No (0 pt) Altered Elimination No (0 pt) Score/Fall Risk Level 0 - 2 = Low Risk Oriented to surroundings, Maintained a safe environment, Educated pt \T\ family on fall prevention, incl call for assistance when getting out of bed. Abuse screen: Denies threats or abuse. Denies injuries from another. Nutritional screening: No deficits noted. Tuberculosis screening: No symptoms or risk factors identified. Assessment: 08:31 General: See triage assessment . hb 10:08 Reassessment: Patient appears in no apparent distress at this time. Patient and/or hb family updated on plan of care and expected duration. Pain level reassessed. Patient is alert/active/playful, equal unlabored respirations, skin warm/dry/pink. Vital Signs: 08:29 BP 110 / 66; Pulse 89; Resp 16; Temp 98.4(O); Pulse Ox 99% on R/A; Weight 70.31 kg; hb Height 5 ft. 4 in. ; Pain 8/10; 08:29 Body Mass Index 26.61 (70.31 kg, 162.56 cm) hb 08:29 Pain Scale: Adult hb ED Course: 08:23 Patient arrived in ED. im 08:27 Jose Armando Kumari MD is Attending Physician. sp3 08:31 Triage completed. hb 08:31 Arm band placed on. hb 08:31 Patient has correct armband on for positive identification. Provided Education on: use hb of call light . 08:41 Taryn Escobar, RN is Primary Nurse. hb 08:41 SARS RAPID Sent. hb 08:41 Strep Sent. hb 08:41 RSV Sent. hb 08:41 Flu Sent. hb 08:41 COVID swab sent to lab. Flu and/or RSV swab sent to lab. Strep swab sent to lab. hb 09:58 CXR XRAY In Process Unspecified. EDMS 10:09 No provider procedures requiring assistance completed. Patient did not have IV access hb during this emergency room visit. Administered Medications: 10:16 Drug: Ibuprofen PO 600 mg PO once Route: PO; hb 10:16 Follow up: Response: Medication administered at discharge. hb 10:16 Drug: Tessalon Perle PO 100 mg PO once Route: PO; hb 10:16 Follow up: Response: Medication administered at discharge. hb Medication: 08:31 VIS not applicable for this client. hb Outcome: 10:08 Discharge ordered by . sp3 10:09 Discharged to home ambulatory, hb 10:09 Condition: stable 10:09 Discharge instructions given to patient, Instructed on discharge instructions, follow up and referral plans. medication usage, Demonstrated understanding of instructions, follow-up care, medications, Prescriptions given X 2, 10:17 Patient left the ED. hb Signatures: Dispatcher [employer] EDMS Taryn Escobar, SHADE RN Jose Armando De Los Santos MD MD sp3 Kayla Villanueva
[2024-07-14] MEDS ORDERED: IBUPROFEN 200 MG TAB PO ONE (10:11)
[2024-07-14] MEDS ORDERED: BENZONATATE 100 MG CAP PO ONE (10:11)
--- NOTE | 2024-07-14 10:26 | RAD REPORT ---
EXAMINATION: ONE VIEW CHEST XR CLINICAL INDICATION: Female, 54 years old.,COUGH TECHNIQUE: Frontal chest projection is submitted. Examination is limited by patient positioning and t echnique. COMPARISON: 12/19/2023 FINDINGS: The lungs are well inflated and clear. No pneumothorax or sizable effusion. The heart is normal in s ize. Mediastinal contours are unremarkable. IMPRESSION: No acute intrathoracic abnormalities.
[2024-07-16 02:07] VITALS: BP 110/66; TEMP 98.4; O2SAT 99
== END 2024-07-14 10:17 | disposition home or self-care (01) ==
LOC: ER 08:21
DX: J06.9 Acute upper respiratory infection, unspecified (principal); B34.9 Viral infection, unspecified; E11.9 Type 2 diabetes mellitus without complications; K50.90 Crohn's disease, unspecified, without complications; K85.90 Acute pancreatitis without necrosis or infection, unspecified; Z11.52 Encounter for screening for COVID-19
CPT/HCPCS: 36415; 71045; 87070; 87081; 87804; 87807; 87811; 99283

== ENCOUNTER 2024-07-16 17:51 | Emergency (ER) | payer OTHER ==
[2024-07-16] MEDS ORDERED: NA CHLORIDE 0.9% 1,000 ML ONE (18:55)
[2024-07-16 18:56] LABS: Absolute Eosinophils 0.1 K/uL (0-0.5); Absolute Lymphocytes (CBC) 1.1 K/uL (0.7-4.9); Absolute Monocytes 0.8 K/uL (0.1-1.3); Absolute Neutrophil 4.5 K/uL (1.8-8.0); Basophils % 0.4 % (0-1.3); Eosinophils % 2.2 % (0-4.4); Hematocrit 43.4 % (36.0-45.0); Hemoglobin 14.6 g/dL (12.0-15.0); Lymphocytes % 16.6 % (15.3-44.8); MCH 28.6 pg (27.0-35.0); MCHC 33.6 g/dL (32.0-36.0); MCV 85.3 fL (80-100); MPV 8.4 fL (7.6-11.3); Monocytes % 12.3 % (3.3-12.3); Neutrophils % 68.5 % (41.7-73.7); Platelets 167 thou/uL (152-406); RBC Red Blood Cell Count 5.08 M/uL (3.86-4.86); Red Cell Distribution Width 15.3 % (12.1-15.2)
--- NOTE | 2024-07-16 19:02 | RAD REPORT ---
EXAMINATION: CT HEAD WITHOUT CONTRAST CLINICAL INDICATION: Female, 54 years old.Confused;Trauma TECHNIQUE: Axial CT images from the skull base to the vertex without intravenous contrast. Coronal an d sagittal reformatted images were created from the data set. One or more of the following dose reduction techniques were used: Automated exposure control, adjustment of the mA and/or kV according to patient size, and/or iterative reconstruction. Unless otherwise specified, incidental findings do not require dedicated imaging follow-up. [id number]. COMPARISON: 04/07/23 FINDINGS: INTRACRANIAL: No acute intracranial hemorrhage. No hydrocephalus. No mass effect or midline shift. No significant white matter disease. VASCULATURE: No visualized abnormalities in the arteries or dural venous sinuses. SCALP/SKULL: No significant soft tissue or osseous abnormalities. SINUSES: Mild paranasal sinus thickening. IMPRESSION: No acute intracranial abnormality.
[2024-07-16 19:06] LABS: PT Prothrombin Time 12.5 SECONDS (9.4-12.5); PTT, Activated Partial Thromb 32.1 SECONDS (24.3-36.9); Protime INR 1.19
[2024-07-16 19:18] LABS: ALT/SGPT 22 U/L (13-56); AST/SGOT 15 U/L (15-37); Albumin 3.4 g/dL (3.4-5.0); Albumin/Globulin Ratio 0.9 (1.1-1.8); Alkaline Phosphatase 101 U/L (45-117); Anion Gap 11.6 mEq/L (5.0-15.0); BUN Blood Urea Nitrogen 11 mg/dL (7-18); Bicarbonate 25 mEq/L (21-32); Bilirubin Total 0.3 mg/dL (0.2-1.0); Globulin 3.9 g/dL (2.3-3.5); Glomerular Filtration Rate 78 ml/min (=/>90); Glucose Level 298 mg/dL (74-106); Potassium 3.6 mEq/L (3.5-5.1); Protein, Total 7.3 g/dL (6.4-8.2); Sodium Level 133 mEq/L (136-145)
[2024-07-16 19:22] LABS: Bilirubin Direct < 0.2 mg/dL (0-0.2); Bilirubin Indirect, Calculated 0.1 mg/dL (0.2-0.8); Troponin High Sensitivity < 3.0 pg/mL (<58.9)
[2024-07-16 22:58] LABS: Specific Gravity 1.028 (1.005-1.030); Urine Bacteria None Seen /HPF (<20); Urine Bilirubin NEGATIVE (Negative); Urine Blood Negative (Negative); Urine Clarity Extremely Turbid (Clear); Urine Color Yellow (Yellow); Urine Culture Reflex Order NOT NEEDED; Urine Glucose 3+ (Negative); Urine Ketones NEGATIVE (Negative); Urine Microscopic Reflex YN ORDER UMIC; Urine Mucus 4+ /HPF (None Seen); Urine Nitrite NEGATIVE (Negative); Urine Protein TRACE (Negative); Urine Urobilinogen 1+ (Normal); Urine WBC Clump Rare /HPF (None Seen); Urine Yeast (Budding) Trace /HPF (None Seen)
[2024-07-16 23:10] LABS: Barbiturates NEGATIVE (NEGATIVE); Benzodiazepines POSITIVE (NEGATIVE); Cocaine NEGATIVE (NEGATIVE); METHAMPHETAM NEGATIVE (NEGATIVE); Methadone NEGATIVE (NEGATIVE); Opiates NEGATIVE (NEGATIVE); Phencyclidine NEGATIVE (NEGATIVE); THC Cannibis NEGATIVE (NEGATIVE)
--- NOTE | 2024-07-16 23:17 | EDPHYS ---
Physician Documentation [facility] Name: Dena Nance Age: 54 yrs Sex: Female : 1970 Arrival Date: 07/16/2024 Time: 17:51 Bed 16 Private MD: ED Physician Roberto Alejo HPI: 07/16 18:21 This 54 yrs old Female presents to ER via Wheelchair with complaints of Fall sb4 Injury, Head Injury With LOC-Adult. 18:21 patient reports dizziness/uncoordinatation x 1.5 months. states that she started sb4 feeling sick yesterday with cough and congestion. she was seen here, had negative swabs, negative CXR, and discharged with cough medicine. states she still feels poorly, chest hurts from coughing. states that she fell in the bathroom last night and his her head and fell again this morning. patient sleepy during triage, can barely keep eyes open. 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 - Infectious Disease History:: Denies. - Social history:: Smoking status: Patient denies any tobacco usage or history of. ROS: 18:23 Constitutional: Negative for fever, chills, and weight loss, sb4 18:23 Cardiovascular: Positive for chest pain, 18:23 Respiratory: Positive for cough, 18:23 Neuro: Positive for dizziness, 18:23 All other systems are negative, Exam: 18:23 Constitutional: The patient appears awake, sleepy sb4 18:32 Head/Face: Normocephalic, atraumatic. Respiratory: No increased work of breathing, no sb4 retractions or nasal flaring. Skin: Warm, dry with normal turgor. Normal color with no rashes, no lesions, and no evidence of cellulitis. MS/ Extremity: Pulses equal, no cyanosis. Neurovascular intact. Full, normal range of motion. 18:32 Eyes: Pupils: equal, round, and reactive to light and accomodation, Extraocular movements: intact throughout, 18:32 ENT: TM's: are normal, Posterior pharynx: Airway: normal, no evidence of obstruction, 18:32 Cardiovascular: Rate: tachycardic, Rhythm: regular, Vital Signs: 18:04 BP 110 / 69; Pulse 124; Resp 17; Temp 99.4(T); Pulse Ox 96% on R/A; ko1 19:15 BP 123 / 68; Pulse 101; Resp 17; Pulse Ox 94% on R/A; Pain 6/10; rg5 20:30 BP 130 / 69; Pulse 99; Pulse Ox 94% on R/A; rg5 21:20 BP 125 / 66; Pulse 100; Resp 18; Pulse Ox 94% on R/A; rg5 22:04 BP 121 / 67; Pulse 95; Resp 17; Pulse Ox 95% on R/A; rg5 23:20 BP 106 / 60; Pulse 94; Resp 18; Pulse Ox 94% on R/A; Pain 0/10; rg5 19:15 Pain Scale: Adult rg5 23:20 Pain Scale: Adult rg5 MDM: 18:08 Medical Screening Exam initiated sb4 20:46 Data reviewed: vital signs, nurses notes, lab test result(s), radiologic studies. sb4 21:25 Counseling: I had a detailed discussion with the patient and/or guardian regarding the sb4 historical points, exam findings, and any diagnostic results supporting the discharge/admit diagnosis, lab results, radiology results, to return to the emergency department if symptoms worsen or persist or if there are any questions or concerns that arise at home. 07/16 18:20 Order name: Acetaminophen; Complete Time: 19:27 sb4 07/16 18:20 Order name: Basic Metabolic Panel; Complete Time: 19:27 sb4 07/16 18:20 Order name: CBC with Diff; Complete Time: 19:05 sb4 07/16 18:20 Order name: ETOH Level; Complete Time: 19:16 sb4 07/16 18:20 Order name: Hepatic Function; Complete Time: 19:27 sb4 07/16 18:20 Order name: PT-INR; Complete Time: 19:07 sb4 07/16 18:20 Order name: Ptt, Activated; Complete Time: 19:07 sb4 07/16 18:20 Order name: Salicylate; Complete Time: 19:38 sb4 07/16 18:20 Order name: Urinalysis w/ reflexes; Complete Time: 23:06 sb4 07/16 18:20 Order name: Urine Drug Screen; Complete Time: 23:11 sb4 07/16 18:54 Order name: Troponin High Sensitivity; Complete Time: 19:27 EDMS 07/16 19:50 Order name: AMMONIA; Complete Time: 21:25 sb4 07/16 18:20 Order name: CT Head Brain wo Cont; Complete Time: 19:05 sb4 07/16 18:20 Order name: EKG - Nurse/Tech; Complete Time: 19:14 sb4 07/16 18:20 Order name: IV Saline Lock; Complete Time: 18:44 sb4 07/16 18:20 Order name: Labs collected and sent; Complete Time: 18:44 sb4 07/16 23:15 Order name: Misc. Order: ambulate; Complete Time: 23:40 sb4 EC:43 Rate is 101 beats/min. Rhythm is regular, Sinus tachycardia. MA interval is normal at sb4 146 msec. QRS interval is normal at 86 msec. QT interval is normal at 332 msec. No Q waves. T waves are Normal. No ST changes noted. Clinical impression: No evidence of ischemia. Interpreted by me. Reviewed by me. Administered Medications: 18:57 Drug: NS 0.9% IV 1000 ml IV at 1000 ml once; to be given as a bolus over 60 minutes bp Route: IV; Rate: 1000 ml; Site: left forearm; 20:32 Follow up: IV Status: Completed infusion; IV Intake: 1000ml rg5 Disposition Summary: 07/16/24 23:16 Discharge Ordered Notes: Location: Home sb4 Problem: new sb4 Symptoms: have improved sb4 Condition: Stable sb4 Diagnosis - Acute upper respiratory infection, unspecified sb4 - Dizziness and giddiness sb4 Followup: sb4 - With: Emergency Department - When: As needed - Reason: Trouble breathing, Worsening of condition Discharge Instructions: - Discharge Summary Sheet sb4 - Upper Respiratory Infection, Adult, [id number] sb4 - Dizziness, [id number] sb4 Forms: - Patient Portal Instructions sb4 - Leadership Thank You Letter sb4 Prescriptions: - Medrol (Irvin) 4 mg Oral Tablets, Dose Pack - take 1 tablet ORAL route as directed - follow package instructions; 1 packet; sb4 Refills: 0, Product Selection Permitted Addendum: 07/19/2024 07:02 Co-signature as Attending Physician, Roberto Alejo MD I reviewed the patient's care r n provided by the Advanced Practice Provider and agree with the diagnosis and treatment plan. Signatures: Dispatcher [employer] EDMS Roberto Alejo MD MD rn Peltier, Ignacio, RN RN Colleen Harris RN RN ko1 Angelina Vitale PA-C PAJavier sb4 Phoenix Jesus RN rg5 Corrections: (The following items were deleted from the chart) 07/16 18:20 18:20 Head Brain Wo Cont+CT.RAD.BRZ ordered. EDAL EDMS 18:24 18:21 patient reports dizziness/uncoordinatation x 1.5 months. states that she started sb4 feeling sick yesterday with cough and congestion. she was seen here, had negative swabs, negative CXR, and discharged with cough medicine. states. sb4 18:54 18:23 Troponin High Sensitivity+C.LAB.BRZ ordered. EDAL EDMS
--- NOTE | 2024-07-16 23:17 | ER ---
Nurse's Notes [facility] Name: Dena Nance Age: 54 yrs Sex: Female : 1970 Arrival Date: 07/16/2024 Time: 17:51 Bed 16 Private MD: Diagnosis: Acute upper respiratory infection, unspecified;Dizziness and giddiness Presentation: 07/16 18:04 Chief complaint: Patient states: fell at home last night and again about 30 minutes ko1 ago, lost consciousness unknown how long, and hit head, was here last week and got cough medicine and its not helping. Coronavirus screen: At this time, the client does not indicate any symptoms associated with coronavirus-19. Ebola Screen: No symptoms or risks identified at this time. Initial Sepsis Screen: Does the patient meet any 2 criteria? No. Patient's initial sepsis screen is negative. Does the patient have a suspected source of infection? No. Patient's initial sepsis screen is negative. Risk Assessment: Do you want to hurt yourself or someone else? Patient reports no desire to harm self or others. Onset of symptoms was July 16, 2024. 18:04 Method Of Arrival: Wheelchair ko1 18:04 Acuity: MARIANA 3 ko1 18:09 Initial Sepsis Screen: Does the patient meet any 2 criteria?. ko1 Triage Assessment: 18:09 General: Appears in no apparent distress. Behavior is calm, cooperative, appropriate ko1 for age. Pain: Complains of pain in abdomen. 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 - Infectious Disease History:: Denies. - Social history:: Smoking status: Patient denies any tobacco usage or history of. Screenin:22 [facility] ED Fall Risk Assessment (Adult) History of falling in the last 3 months, bp including since admission Yes- single mechanical fall (1 pt) Confusion or Disorientation No (0 pts) Intoxicated or Sedated No (0 pts) Impaired Gait No (0 pts) Mobility Assist Device Used No (0 pt) Altered Elimination No (0 pt) Score/Fall Risk Level 0 - 2 = Low Risk Oriented to surroundings. Abuse screen: Denies threats or abuse. Denies injuries from another. Nutritional screening: No deficits noted. Tuberculosis screening: No symptoms or risk factors identified. Assessment: 18:10 General: Appears in no apparent distress. Behavior is cooperative, appropriate for age, bp anxious. 19:10 Reassessment: Patient and/or family updated on plan of care and expected duration. Pain rg5 level reassessed. Patient is alert, oriented x 3, equal unlabored respirations, skin warm/dry/pink. 20:43 Reassessment: No changes from previously documented assessment. Patient and/or family rg5 updated on plan of care and expected duration. Pain level reassessed. 21:00 Reassessment: Patient and/or family updated on plan of care and expected duration. Pain rg5 level reassessed. Patient is alert, oriented x 3, equal unlabored respirations, skin warm/dry/pink. 22:04 Reassessment: Patient and/or family updated on plan of care and expected duration. Pain rg5 level reassessed. Patient is alert, oriented x 3, equal unlabored respirations, skin warm/dry/pink. 23:30 Reassessment: Patient and/or family updated on plan of care and expected duration. Pain rg5 level reassessed. Patient is alert, oriented x 3, equal unlabored respirations, skin warm/dry/pink. Patient states feeling better. Patient states symptoms have improved. Vital Signs: 18:04 BP 110 / 69; Pulse 124; Resp 17; Temp 99.4(T); Pulse Ox 96% on R/A; ko1 19:15 BP 123 / 68; Pulse 101; Resp 17; Pulse Ox 94% on R/A; Pain 6/10; rg5 20:30 BP 130 / 69; Pulse 99; Pulse Ox 94% on R/A; rg5 21:20 BP 125 / 66; Pulse 100; Resp 18; Pulse Ox 94% on R/A; rg5 22:04 BP 121 / 67; Pulse 95; Resp 17; Pulse Ox 95% on R/A; rg5 23:20 BP 106 / 60; Pulse 94; Resp 18; Pulse Ox 94% on R/A; Pain 0/10; rg5 19:15 Pain Scale: Adult rg5 23:20 Pain Scale: Adult rg5 ED Course: 17:56 Patient arrived in ED. ra3 17:58 Angelina Vitale PA-C is PHCP. sb4 17:58 Roberto Alejo MD is Attending Physician. sb4 18:09 Triage completed. ko1 18:09 Arm band placed on right wrist. Patient placed in an exam room, on a stretcher, on ko1 cardiac/vascular sonographer, on pulse oximetry, Patient notified of wait time. 18:14 Ignacio Garcia, RN is Primary Nurse. bp 18:22 Patient has correct armband on for positive identification. bp 18:45 Initial lab(s) drawn, by me, sent to lab. Inserted saline lock: 22 gauge in left bp forearm, using aseptic technique. Blood collected. Flushed with 10 mL NS. 18:51 CT Head Brain wo Cont In Process Unspecified. EDMS 22:08 No provider procedures requiring assistance completed. rg5 22:39 Notified Nurse Practitioner and/or Physician Counter Stacker of assisted pt to bathroom for kmf UA collection. witnessed pt urinate in hat, pour into toilet and flush. at this time pt stating she is unable to urinate. provider notified. 23:09 Urine Drug Screen Sent. kmf 23:43 Provided Education on: POST ER CARE. rg5 23:43 IV discontinued, bleeding controlled, No redness/swelling at site. Pressure dressing rg5 applied. Administered Medications: 18:57 Drug: NS 0.9% IV 1000 ml IV at 1000 ml once; to be given as a bolus over 60 minutes bp Route: IV; Rate: 1000 ml; Site: left forearm; 20:32 Follow up: IV Status: Completed infusion; IV Intake: 1000ml rg5 Medication: 19:00 VIS not applicable for this client. rg5 Intake: 20:32 IV: 1000ml; Total: 1000ml. rg5 Outcome: 23:16 Discharge ordered by . sb4 23:42 Discharged to home rg5 23:42 Condition: stable 23:42 Discharge instructions given to patient, Instructed on discharge instructions, Demonstrated understanding of instructions, follow-up care, Prescriptions given X 1, 07/17 00:11 Patient left the ED. rg5 Signatures: Dispatcher [employer] EDCO Ignacio Garcia, RN RN bp Colleen Tony RN RN moe1 Angelina Vitale, PA-C PA-C sb4 Maru Weinberg Ruby ra3 Phoenix Jesus, RN RN rg5
[2024-07-17 00:17] VITALS: TEMP 99.4
[2024-07-17 00:23] VITALS: BP 106/60; O2SAT 94
== END 2024-07-17 00:11 | disposition home or self-care (01) ==
LOC: ER 17:51
DX: J06.9 Acute upper respiratory infection, unspecified (principal); R42 Dizziness and giddiness; E11.9 Type 2 diabetes mellitus without complications
CPT/HCPCS: 96361; 85025; 81001; 80048; 36415; 82140; 85610; 80076; 85730; 84484; 80307; 70450; 96360; 99284; 80143; 80179; 82077; J7030

== ENCOUNTER 2024-07-27 09:32 | Emergency (ER) | payer OTHER ==
[2024-07-27] MEDS ORDERED: HYDROCODONE/APAP 10/325 TAB ONE (10:10)
[2024-07-27] MEDS ORDERED: KETOROLAC 30 MG/ML INJ ONE (10:10)
--- NOTE | 2024-07-27 11:08 | RAD REPORT ---
EXAMINATION: CT LUMBAR SPINE WITHOUT CONTRAST CLINICAL INDICATION: Fall with back pain TECHNIQUE: Axial CT images were obtained through the lumbar spine in soft tissue and bone windows wit hout intravenous contrast. Coronal and Sagittal reformatted images were created from the data set. One or more of the following dose reduction techniques were used: Automated exposure control, adjustm ent of the mA and/ or kV according to patient size, and/or iterative reconstruction. Unless otherwise specified, incidental findings do not require dedicated imaging follow-up. COMPARISON: No prior exam. FINDINGS: For purposes of this dictation, it is assumed that there are 5 non rib-bearing lumbar type vertebrae, and the most caudal fully segmented lumbar vertebra is labeled L5. No fracture seen No dislocation. Small central disc herniation L4-5. Prominent disc bulge L5-S1 IMPRESSION: No fracture seen. If the patient continues to have symptoms to suggest spinal canal pathology then MRI would be recomme nded
--- NOTE | 2024-07-27 11:36 | EDPHYS ---
Physician Documentation [facility] Name: Dena Nance Age: 54 yrs Sex: Female : 1970 Arrival Date: 07/27/2024 Time: 09:32 Bed 18 Private MD: ED Physician Haseeb Chance HPI: 07/27 10:50 This 54 yrs old Female presents to ER via Ambulatory with complaints of Fall rt Injury - RIGHT SIDE/BACK. 10:50 Patient presents to the ED with a fall. She has had back pain causing her more frequent rt falls over the past 2 weeks, states that her pain worsened today. She denies hitting her head, denies weakness. Denies other acute complaints at this time, symptoms are moderate in severity, no other aggravating or alleviating factors.. 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 - Infectious Disease History:: Denies. - Family history:: not pertinent. - Social history:: Smoking status: unknown. ROS: 10:50 Constitutional: Negative for fever, chills, and weight loss, Cardiovascular: Negative rt for chest pain, palpitations, and edema, Respiratory: Negative for shortness of breath, cough, wheezing, and pleuritic chest pain, Abdomen/GI: Negative for abdominal pain, nausea, vomiting, diarrhea, and constipation, MS/Extremity: Negative for injury and deformity, Skin: Negative for injury, rash, and discoloration, Neuro: Negative for headache, weakness, numbness, tingling, and seizure, 10:50 Back: Positive for pain at rest, pain with movement, Exam: 10:50 Constitutional: This is a well developed, well nourished patient who is awake, alert, rt and in no acute distress. Head/Face: Normocephalic, atraumatic. Chest/axilla: Normal chest wall appearance and motion. Nontender with no deformity. No lesions are appreciated. Cardiovascular: Regular rate and rhythm with a normal S1 and S2. No gallops, murmurs, or rubs. Normal PMI, no JVD. No pulse deficits. Respiratory: Lungs have equal breath sounds bilaterally, clear to auscultation and percussion. No rales, rhonchi or wheezes noted. No increased work of breathing, no retractions or nasal flaring. Abdomen/GI: Soft, non-tender, with normal bowel sounds. No distension or tympany. No guarding or rebound. No evidence of tenderness throughout. Skin: Warm, dry with normal turgor. Normal color with no rashes, no lesions, and no evidence of cellulitis. MS/ Extremity: Pulses equal, no cyanosis. Neurovascular intact. Full, normal range of motion. Neuro: Awake and alert, GCS 15, oriented to person, place, time, and situation. Cranial nerves II-XII grossly intact. Motor strength 5/5 in all extremities. Sensory grossly intact. Cerebellar exam normal. Normal gait. 10:50 Back: Tenderness to the lower lumbar region at the midline, no paraspinal tenderness, no step-offs, Vital Signs: 09:51 BP 135 / 72; Pulse 88; Resp 16; Temp 98(O); Pulse Ox 99% on R/A; Weight 68.95 kg; ss Height 5 ft. 4 in. ; Pain 9/10; 10:15 BP 177 / 87; Pulse 85; Resp 17 S; Pulse Ox 99% on R/A; ha1 12:00 BP 126 / 79; Pulse 81; Resp 17 S; Pulse Ox 97% on R/A; ha1 09:51 Body Mass Index 26.09 (68.95 kg, 162.56 cm) ss 09:51 Pain Scale: Adult ss MDM: 09:45 Medical Screening Exam initiated rt 16:14 Differential diagnosis: Fracture, disc disease, mechanical back pain. Data reviewed: rt vital signs, nurses notes, radiologic studies. I considered the following discharge prescriptions or medication management in the emergency department Medications were administered in the Emergency Department. See MAR. Independent interpretation of the following test(s) in the Emergency Department CT Scan: My interpretation is No compression fracture seen on my interpretation of CT scan images. Care significantly affected by the following chronic conditions: Diabetes. Counseling: I had a detailed discussion with the patient and/or guardian regarding the historical points, exam findings, and any diagnostic results supporting the discharge/admit diagnosis, radiology results, the need for outpatient follow up, to return to the emergency department if symptoms worsen or persist or if there are any questions or concerns that arise at home. Response to treatment: the patient's symptoms have markedly improved after treatment. 07/27 10:01 Order name: CT Lumbar Spine Wo Con; Complete Time: 11:21 rt Administered Medications: 10:15 Drug: [place] PO 10 mg-325 mg 1 tabs PO once Route: PO; ha1 10:45 Follow up: Response: No adverse reaction; Marked relief of symptoms; Pain is decreased; ha1 RASS: Alert and Calm (0) 10:15 Drug: Ketorolac IM 15 mg IM once Route: IM; Site: right deltoid; ha1 10:45 Follow up: Response: No adverse reaction; Marked relief of symptoms; Pain is decreased ha1 Disposition Summary: 07/27/24 11:35 Discharge Ordered Notes: Location: Home rt Problem: new rt Symptoms: have improved rt Condition: Stable rt Diagnosis - Low back pain rt Followup: rt - With: Private Physician - When: 2 - 3 days - Reason: Discharge Instructions: - Discharge Summary Sheet rt - Acute Back Pain, Adult rt Forms: - Medication Reconciliation Form rt - Antibiotic Education rt - Prescription Opioid Use rt - Patient Portal Instructions rt - Leadership Thank You Letter rt Prescriptions: - gabapentin 100 mg Oral capsule - take 1 capsule ORAL route every 8 hours; 30 capsule; Refills: 0, Product rt Selection Permitted Signatures: Dispatcher [employer] Yeni Miranda RN RN Ramya Motley RN RN ha1 Haseeb Chance MD MD rt
--- NOTE | 2024-07-27 11:36 | ER ---
Nurse's Notes [facility] Name: Dena Nance Age: 54 yrs Sex: Female : 1970 Arrival Date: 07/27/2024 Time: 09:32 Bed 18 Private MD: Diagnosis: Low back pain Presentation: 07/27 09:51 Chief complaint: Patient states: Fall last night from standing. Pt c/o R flank pain ss down to R upper thigh. Pt reports she feels unbalanced and has fallen 6 times in the past 1.5 weeks. Coronavirus screen: Client denies travel out of the [place] in the last 14 days. Ebola Screen: Patient denies exposure to infectious person. Patient denies travel to an Ebola-affected area in the 21 days before illness onset. Initial Sepsis Screen: Does the patient meet any 2 criteria? No. Patient's initial sepsis screen is negative. Does the patient have a suspected source of infection? No. Patient's initial sepsis screen is negative. Risk Assessment: Do you want to hurt yourself or someone else? Patient reports no desire to harm self or others. Onset of symptoms was July 26, 2024. 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 - Infectious Disease History:: Denies. - Family history:: not pertinent. - Social history:: Smoking status: unknown. Screenin:40 [facility] ED Fall Risk Assessment (Adult) History of falling in the last 3 months, ha1 including since admission Yes- fall prone (multiple falls) (3 pts) Confusion or Disorientation No (0 pts) Intoxicated or Sedated No (0 pts) Impaired Gait Yes (1 pt) Mobility Assist Device Used Yes (1 pt) Altered Elimination No (0 pt) Score/Fall Risk Level 3 or more points = High Risk Oriented to surroundings, Maintained a safe environment, Educated pt \T\ family on fall prevention, incl call for assistance when getting out of bed, Hourly rounding (assess needs \T\ fall precautionary measures) done, Used ambulatory aids as needed (educated on \T\ assisted with), Implemented a Fall Risk Plan of Care. Abuse screen: Denies threats or abuse. Denies injuries from another. Nutritional screening: No deficits noted. Tuberculosis screening: No symptoms or risk factors identified. Assessment: 09:40 General: Appears uncomfortable, Behavior is calm, cooperative. Pain: Complains of pain ha1 in lumbar area Pain currently is 8 out of 10 on a pain scale. Quality of pain is described as aching, throbbing, Pain began 2-3 days ago. Neuro: Level of Consciousness is awake, alert, obeys commands, Oriented to person, place, time, situation. Cardiovascular: Capillary refill < 3 seconds Patient's skin is warm and dry. Respiratory: Airway is patent Respiratory effort is even, unlabored, Respiratory pattern is regular, symmetrical. GI: No signs and/or symptoms were reported involving the gastrointestinal system. Abdomen is round non-distended. : No signs and/or symptoms were reported regarding the genitourinary system. Derm: Skin is pink, warm \T\ dry. Musculoskeletal: Circulation, motion, and sensation intact. Range of motion: intact in all extremities, Reports pain in back since a year ago, it has got worse during the past three days . 10:16 Reassessment: Patient and/or family updated on plan of care and expected duration. Pain ha1 level reassessed. Patient is alert, oriented x 3, equal unlabored respirations, skin warm/dry/pink. 11:30 Reassessment: Patient and/or family updated on plan of care and expected duration. Pain ha1 level reassessed. Patient is alert, oriented x 3, equal unlabored respirations, skin warm/dry/pink. 12:13 Reassessment: Patient and/or family updated on plan of care and expected duration. Pain ha1 level reassessed. Patient is alert, oriented x 3, equal unlabored respirations, skin warm/dry/pink. pain 3/10 Patient states feeling better. Patient states symptoms have improved. Vital Signs: 09:51 BP 135 / 72; Pulse 88; Resp 16; Temp 98(O); Pulse Ox 99% on R/A; Weight 68.95 kg; Height 5 ft. 4 in. ; Pain 9/10; 10:15 BP 177 / 87; Pulse 85; Resp 17 S; Pulse Ox 99% on R/A; ha1 12:00 BP 126 / 79; Pulse 81; Resp 17 S; Pulse Ox 97% on R/A; ha1 09:51 Body Mass Index 26.09 (68.95 kg, 162.56 cm) 09:51 Pain Scale: Adult ED Course: 09:36 Patient arrived in ED. sj2 09:37 Haseeb Chance MD is Attending Physician. rt 09:40 Patient has correct armband on for positive identification. Placed in gown. Bed in low ha1 position. Call light in reach. Side rails up X2. 09:40 Provided Education on: plan of care . ha1 09:47 Ramya Motley, RN is Primary Nurse. ha1 09:54 Triage completed. ss 09:54 Arm band placed on right wrist. ss 10:16 Door closed. Noise minimized. Visitors limited. Warm blanket given. Pillow given. ha1 10:34 CT Lumbar Spine Wo Con In Process Unspecified. EDMS 12:14 No provider procedures requiring assistance completed. Patient did not have IV access ha1 during this emergency room visit. Administered Medications: 10:15 Drug: [place] PO 10 mg-325 mg 1 tabs PO once Route: PO; ha1 10:45 Follow up: Response: No adverse reaction; Marked relief of symptoms; Pain is decreased; ha1 RASS: Alert and Calm (0) 10:15 Drug: Ketorolac IM 15 mg IM once Route: IM; Site: right deltoid; ha1 10:45 Follow up: Response: No adverse reaction; Marked relief of symptoms; Pain is decreased ha1 Medication: 10:01 VIS not applicable for this client. ha1 Outcome: 11:35 Discharge ordered by . rt 12:14 Discharged to home ambulatory, ha1 12:14 Condition: stable 12:14 Discharge instructions given to patient, Instructed on discharge instructions, follow up and referral plans. medication usage, Demonstrated understanding of instructions, follow-up care, medications, Prescriptions given X 1, 12:15 Patient left the ED. ha1 Signatures: Dispatcher [employer] EDMS Yeni Jewell RN RN Ramya Motley RN RN ha1 Haseeb Chance MD MD rt Lanette Briggs 2
[2024-07-27 14:49] VITALS: TEMP 98
[2024-07-27 15:01] VITALS: BP 126/79; O2SAT 97
== END 2024-07-27 12:15 | disposition home or self-care (01) ==
LOC: ER 09:32
DX: M54.50 Low back pain, unspecified (principal)
CPT/HCPCS: 72131; 96372; 99284

== ENCOUNTER 2024-10-08 06:24 | Emergency (ER) | payer OTHER ==
[2024-10-08] MEDS ORDERED: ACETAMINOPHEN 500 MG TAB ONE (06:53)
[2024-10-08 07:22] LABS: Influenza A Ag Negative; Influenza B Ag Negative; SARS-CoV-2 Antigen Rapid Res Negative (Negative)
--- NOTE | 2024-10-08 08:12 | RAD REPORT ---
EXAMINATION: ONE VIEW CHEST XR CLINICAL INDICATION: Female, 54 years old.,COUGH TECHNIQUE: Frontal chest projection is submitted. Examination is limited by patient positioning and t echnique. COMPARISON: 07/14/2024 FINDINGS: The lungs are well inflated and clear. No pneumothorax or sizable effusion. The heart is normal in s ize. Mediastinal contours are unremarkable. IMPRESSION: No acute intrathoracic abnormalities.
--- NOTE | 2024-10-08 09:08 | EDPHYS ---
Physician Documentation [facility] Name: Dena Nance Age: 54 yrs Sex: Female : 1970 Arrival Date: 10/08/2024 Time: 06:24 Bed 5 Private MD: ED Physician Eric Cruz HPI: 10/08 09:06 Chief Complaint: Cough and headache. History of Present Illness: The patient presented jr11 with a cough and headache, reporting symptoms for four days. The patient has not had any runny nose or congestion, but the headache worsens when leaning forward. There are chills but no fever reported. The cough has been worsening and is particularly worse at night. The patient denies any smoking history and reports not having flu or COVID-19. The chest X-ray ruled out pneumonia. The patient has a history of diabetes, managed with insulin, and is aware of how to adjust insulin doses if blood sugar rises. The patient has no known medication allergies. Review of Systems: - Positive for headache, cough, and chills. - Negative for fever, runny nose, and congestion. - ROS otherwise negative. Denies CP, dyspnea . 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 - Infectious Disease History:: Denies. - Social history:: Smoking status: Patient denies any tobacco usage or history of. Patient/guardian denies using alcohol, street drugs. Exam: 09:06 Constitutional: This is a well developed, well nourished patient who is awake, alert, jr11 and in no acute distress. Head/Face: Normocephalic, atraumatic. Chest/axilla: Normal chest wall appearance and motion. Nontender with no deformity. No lesions are appreciated. Cardiovascular: Regular rate and rhythm with a normal S1 and S2. No gallops, murmurs, or rubs. Normal PMI, no JVD. No pulse deficits. Respiratory: Lungs have equal breath sounds bilaterally, clear to auscultation and percussion. No rales, rhonchi or wheezes noted. No increased work of breathing, no retractions or nasal flaring. Abdomen/GI: Soft, non-tender, with normal bowel sounds. No distension or tympany. No guarding or rebound. No evidence of tenderness throughout. Back: No spinal tenderness. No costovertebral tenderness. Full range of motion. MS/ Extremity: Pulses equal, no cyanosis. Neurovascular intact. Full, normal range of motion. Vital Signs: 06:36 BP 128 / 69; Pulse 98; Resp 17 S; Temp 98.5(O); Pulse Ox 98% on R/A; Weight 68.04 kg lg3 (R); Height 5 ft. 4 in. (R); 09:10 BP 115 / 59; Pulse 87; Resp 17; Pulse Ox 96% on R/A; ap3 06:36 Body Mass Index 25.75 (68.04 kg, 162.56 cm) lg3 Eladio Coma Score: 07:04 Eye Response: spontaneous(4). Motor Response: obeys commands(6). Verbal Response: bm8 oriented(5). Total: 15. MDM: 06:35 Medical Screening Exam initiated sp3 09:06 Differential diagnosis: Medical Decision Makin. Bronchitis 2. Sinusitis 3. Tension jr11 headache 4. Migraine headache 5. Life-threatening: Meningitis (less likely) Plan: - Prescribe medication for cough. - Prescribe an antibiotic to cover sinuses and lungs. - Consider a short course of steroids, with caution regarding blood sugar levels. - Advise monitoring of blood sugar levels if steroids are taken. - Instruct the patient to return if symptoms worsen. X-ray to my read, no pneumonia. Patient comfortable being treated for possible early pneumonia/sinusitis, denies worsening next under clap, considered head CT however not necessary at this point. Patient comfortable with plan of care, will keep an eye on her glucose. 10/08 06:37 Order name: COVID-19 Ag + Flu A+B Ag; Complete Time: 08:45 eb 10/08 06:55 Order name: Glucose, Ancillary Testing; Complete Time: 08:45 EDMS 10/08 06:57 Order name: Glucose, Ancillary Testing EDMN 10/08 06:38 Order name: CXR XRAY; Complete Time: 08:45 sp3 10/08 06:42 Order name: Blood Sugar; Complete Time: 06:44 lg3 Administered Medications: 07:04 Drug: Acetaminophen PO 650 mg PO once Route: PO; bm8 09:14 Follow up: Response: No adverse reaction ap3 Disposition Summary: 10/08/24 09:08 Discharge Ordered Notes: Location: Home [facility] Condition: Stable jr11 Diagnosis - Cough jr11 - Acute sinusitis, unspecified jr11 Discharge Instructions: - Discharge Summary Sheet jr11 - Cough, Adult jr11 Forms: - Medication Reconciliation Form jr11 - Antibiotic Education jr11 - Prescription Opioid Use jr11 - Patient Portal Instructions jr11 - Leadership Thank You Letter jr11 Prescriptions: - azithromycin 250 mg Oral tablet - take 1 dose pack ORAL route as directed on dose pack For 250 mg dose pack: take jr11 500 mg today (day 1), then 250 mg for 4 days (days 2-5); 6 tablet; Refills: 0, Product Selection Permitted - Tessalon Perles 100 mg Oral Capsule - take 1 capsule ORAL route every 8 hours As needed; 15 capsule; Refills: 0, jr11 Product Selection Permitted - Prednisone 20 mg Oral Tablet - take 2 tablets ORAL route once daily for 5 days; 10 tablet; Refills: 0, Product jr11 Selection Permitted Signatures: Dispatcher [employer] EDRamya Tran RN RN lg3 Jose Armando Kumari MD MD sp3 Eric Cruz MD MD jr11 Caleb Thompson RN RN bm8 Liza Vasquez RN ap3 Corrections: (The following items were deleted from the chart) 06:38 06:38 COVID-19 Ag + Flu A+B Ag+I.LAB.BRZ ordered. EDMS EDMS
--- NOTE | 2024-10-08 09:08 | ER ---
Nurse's Notes [facility] Name: Dena Nance Age: 54 yrs Sex: Female : 1970 Arrival Date: 10/08/2024 Time: 06:24 Bed 5 Private MD: Diagnosis: Cough;Acute sinusitis, unspecified Presentation: 10/08 06:36 Chief complaint: Patient states: i think i have the flu. complaints of cough, lg3 congestion, SOB, body aches X3 days. took Mucinex at 0530. Coronavirus screen: At this time, unable to obtain information related to travel outside the [place] Ebola Screen: No symptoms or risks identified at this time. Initial Sepsis Screen: Does the patient meet any 2 criteria? No. Patient's initial sepsis screen is negative. Does the patient have a suspected source of infection? No. Patient's initial sepsis screen is negative. Risk Assessment: Do you want to hurt yourself or someone else? Patient reports no desire to harm self or others. Onset of symptoms is unknown. 06:36 Method Of Arrival: Ambulatory lg3 06:36 Acuity: MARIANA 4 lg3 Triage Assessment: 06:38 General: Appears in no apparent distress. comfortable, Behavior is calm, cooperative. lg3 Pain: Complains of pain in generalized body aches. EENT: No deficits noted. Reports nasal congestion. Neuro: No deficits noted. [place] Agitation-Sedation Scale (RASS): 0 - Alert and Calm Level of Consciousness is awake, alert, obeys commands, Oriented to person, place, time, situation. Cardiovascular: No deficits noted. Capillary refill < 3 seconds Clubbing of nail beds is absent JVD is absent Patient's skin is warm and dry. Respiratory: Reports shortness of breath cough that is dry, persistent Airway is patent Respiratory effort is even, unlabored, Respiratory pattern is regular, symmetrical, Breath sounds are clear bilaterally. Onset: The symptoms/episode began/occurred 3 days ago, the patient has mild shortness of breath. GI: No deficits noted. No signs and/or symptoms were reported involving the gastrointestinal system. : No signs and/or symptoms were reported regarding the genitourinary system. Derm: No deficits noted. No signs and/or symptoms reported regarding the dermatologic system. Skin is intact, is healthy with good turgor, Skin is dry, Skin is normal, Skin temperature is warm. Musculoskeletal: No deficits noted. Circulation, motion, and sensation intact. Range of motion: intact in all extremities. 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 - Infectious Disease History:: Denies. - Social history:: Smoking status: Patient denies any tobacco usage or history of. Patient/guardian denies using alcohol, street drugs. Screenin:40 [facility] ED Fall Risk Assessment (Adult) History of falling in the last 3 months, lg3 including since admission No falls in past 3 months (0 pts) Confusion or Disorientation No (0 pts) Intoxicated or Sedated No (0 pts) Impaired Gait No (0 pts) Mobility Assist Device Used No (0 pt) Altered Elimination No (0 pt) Score/Fall Risk Level 0 - 2 = Low Risk Oriented to surroundings, Maintained a safe environment, Educated pt \T\ family on fall prevention, incl call for assistance when getting out of bed, Assessed \T\ reinforced patient's understanding of fall precautions. Abuse screen: Denies threats or abuse. Denies injuries from another. Nutritional screening: No deficits noted. Tuberculosis screening: No symptoms or risk factors identified. Assessment: 06:40 General: see triage assessment. Cardiovascular: Reports shortness of breath, Rhythm is lg3 regular. 07:32 General: Appears in no apparent distress. Behavior is calm, cooperative, appropriate ap3 for age. Pain: Complains of pain in generalized body aches. Neuro: Level of Consciousness is awake, alert, obeys commands, Oriented to person, place, time, situation, Appropriate for age Speech is normal. Respiratory: Airway is patent Respiratory effort is even, unlabored, Respiratory pattern is regular, symmetrical. 09:10 Reassessment: No changes from previously documented assessment. Patient is alert, ap3 oriented x 3, equal unlabored respirations, skin warm/dry/pink. Vital Signs: 06:36 BP 128 / 69; Pulse 98; Resp 17 S; Temp 98.5(O); Pulse Ox 98% on R/A; Weight 68.04 kg lg3 (R); Height 5 ft. 4 in. (R); 09:10 BP 115 / 59; Pulse 87; Resp 17; Pulse Ox 96% on R/A; ap3 06:36 Body Mass Index 25.75 (68.04 kg, 162.56 cm) lg3 [place] Coma Score: 07:04 Eye Response: spontaneous(4). Motor Response: obeys commands(6). Verbal Response: bm8 oriented(5). Total: 15. ED Course: 06:27 Patient arrived in ED. jj6 06:38 Triage completed. lg3 06:38 Arm band placed on right wrist. lg3 06:40 Patient has correct armband on for positive identification. Placed in gown. Bed in low lg3 position. Call light in reach. Side rails up X 1. Client placed on continuous cardiac and pulse oximetry monitoring. NIBP monitoring applied. Door closed. Noise minimized. Warm blanket given. Pillow given. 07:04 No provider procedures requiring assistance completed. COVID swab sent to lab. Flu bm8 and/or RSV swab sent to lab. Patient maintains SpO2 saturation greater than 95% on room air. 07:12 Eric Cruz MD is Attending Physician. jr11 07:13 CXR XRAY In Process Unspecified. EDFL 08:18 Liza Vasquez, SHADE is Primary Nurse. ap3 09:14 Provided Education on: discharge instructions. ap3 09:14 Patient did not have IV access during this emergency room visit. ap3 Administered Medications: 07:04 Drug: Acetaminophen PO 650 mg PO once Route: PO; bm8 09:14 Follow up: Response: No adverse reaction ap3 Medication: 07:04 VIS not applicable for this client. bm8 Outcome: 09:08 Discharge ordered by . jr11 09:11 Condition: good ap3 09:14 Discharged to home ambulatory, ap3 09:14 Discharge instructions given to patient, Instructed on discharge instructions, follow up and referral plans. medication usage, Demonstrated understanding of instructions, follow-up care, medications, Prescriptions given X 3, 09:15 Patient left the ED. ap3 Signatures: Dispatcher [employer] EDFL Liza Vasquez RN RN ap3 Ramya Villafana RN RN lg3 Flavia Orantes jj6 Eric Cruz MD MD jr11 Caleb Thompson RN RN bm8
[2024-10-08 09:19] VITALS: TEMP 98.5
[2024-10-08 09:21] VITALS: BP 115/59; O2SAT 96
== END 2024-10-08 09:15 | disposition home or self-care (01) ==
LOC: ER 06:24
DX: J01.90 Acute sinusitis, unspecified (principal); Z11.52 Encounter for screening for COVID-19
CPT/HCPCS: 36415; 71045; 82947; 87428; 99284

== ENCOUNTER 2024-10-11 12:06 | Emergency (ER) | payer OTHER ==
[2024-10-11] MEDS ORDERED: predniSONE 20 MG TAB ONE (12:30)
[2024-10-11] MEDS ORDERED: IPRATROPIUM BROM 0.5MG/2.5ML ONE (12:30)
[2024-10-11] MEDS ORDERED: ALBUTEROL 2.5 MG/3 ML NEB SOL ONE (12:30)
--- NOTE | 2024-10-11 12:35 | RAD REPORT ---
EXAMINATION: ONE VIEW CHEST XR CLINICAL INDICATION: COUGH TECHNIQUE: Frontal chest projection is submitted. Examination is limited by patient positioning and t echnique. COMPARISON: 10/08/2024 FINDINGS: Interstitial markings are prominent bilaterally suggesting underlying bronchitis or interstitial pulm onary edema. Findings are slightly improved since the prior study. No focal consolidation typical of pneumonia. The heart is upper limit of normal in size. No displaced fractures identified.
[2024-10-11 12:38] LABS: Absolute Basophils 0.1 K/uL (0-0.5); Absolute Eosinophils 0.1 K/uL (0-0.5); Absolute Lymphocytes (CBC) 2.5 K/uL (0.7-4.9); Absolute Monocytes 1.2 K/uL (0.1-1.3); Absolute Neutrophil 3.4 K/uL (1.8-8.0); Basophils % 0.9 % (0-1.3); Eosinophils % 1.4 % (0-4.4); Hematocrit 40.6 % (36.0-45.0); Hemoglobin 13.7 g/dL (12.0-15.0); Lymphocytes % 34.5 % (15.3-44.8); MCH 28.7 pg (27.0-35.0); MCHC 33.7 g/dL (32.0-36.0); MCV 85.1 fL (80-100); MPV 8.3 fL (7.6-11.3); Monocytes % 16.6 % (3.3-12.3); Neutrophils % 46.6 % (41.7-73.7); Nucleated Red Blood Cells % 0.2 % (0-0); Platelets 183 thou/uL (152-406); RBC Red Blood Cell Count 4.77 M/uL (3.86-4.86); Red Cell Distribution Width 15.3 % (12.1-15.2)
[2024-10-11 12:57] LABS: ALT/SGPT 28 U/L (13-56); AST/SGOT 19 U/L (15-37); Albumin 3.4 g/dL (3.4-5.0); Albumin/Globulin Ratio 0.9 (1.1-1.8); Alkaline Phosphatase 96 U/L (45-117); Anion Gap 9.5 mEq/L (5.0-15.0); BUN Blood Urea Nitrogen 14 mg/dL (7-18); Bicarbonate 27 mEq/L (21-32); Bilirubin Total 0.2 mg/dL (0.2-1.0); Globulin 3.7 g/dL (2.3-3.5); Glomerular Filtration Rate 102 ml/min (=/>90); Glucose Level 71 mg/dL (74-106); NT PRO-BNP 28 pg/mL (<125); Potassium 3.5 mEq/L (3.5-5.1); Protein, Total 7.1 g/dL (6.4-8.2); Sodium Level 137 mEq/L (136-145)
[2024-10-11 13:13] LABS: Bilirubin Direct < 0.2 mg/dL (0-0.2); Troponin High Sensitivity < 3.0 pg/mL (<58.9)
--- NOTE | 2024-10-11 14:31 | ER ---
Nurse's Notes [facility] Name: Dena Nance Age: 54 yrs Sex: Female : 1970 Arrival Date: 10/11/2024 Time: 12:06 Bed 5 Private MD: Diagnosis: Acute bronchitis, unspecified Presentation: 10/11 12:09 Chief complaint: EMS states: was here on the , diagnosed with bronchitis, the cough iw is worse and she is having more SOB and chest pain. Coronavirus screen: Client presents with at least one sign or symptom that may indicate coronavirus-19. Ebola Screen: No symptoms or risks identified at this time. Initial Sepsis Screen: Does the patient meet any 2 criteria? No. Patient's initial sepsis screen is negative. Does the patient have a suspected source of infection? No. Patient's initial sepsis screen is negative. Risk Assessment: Do you want to hurt yourself or someone else? Patient reports no desire to harm self or others. Onset of symptoms was October 08, 2024. 12:09 Method Of Arrival: EMS: [facility] iw 12:09 Acuity: MARIANA 3 iw Historical: - Allergies: 12:10 NKA; iw - PMHx: 12:10 Diabetes - NIDDM; cirrhosis of liver; Colitis; Crohn's Disease; Diverticulitis; fatty iw liver; gastritis; kidney failure; Pancreatitis; - PSHx: 12:10 Cholecystectomy; hysterectomy; iw - Infectious Disease History:: Denies. - Family history:: not pertinent. Screenin:42 [facility] ED Fall Risk Assessment (Adult) History of falling in the last 3 months, iw including since admission No falls in past 3 months (0 pts) Confusion or Disorientation No (0 pts) Intoxicated or Sedated No (0 pts) Impaired Gait No (0 pts) Mobility Assist Device Used No (0 pt) Altered Elimination No (0 pt) Score/Fall Risk Level 0 - 2 = Low Risk Oriented to surroundings, Maintained a safe environment. Abuse screen: Denies threats or abuse. Denies injuries from another. Nutritional screening: No deficits noted. Tuberculosis screening: No symptoms or risk factors identified. Assessment: 13:33 Reassessment: feels shaky and would like us to check her sugar. Meron Stern approved ll1 fingerstick. Fingerstick 72. Given food and drink. 13:55 Reassessment: No changes from previously documented assessment. Patient and/or family ll1 updated on plan of care and expected duration. Pain level reassessed. Patient states feeling better. Vital Signs: 12:09 BP 113 / 62; Pulse 85; Resp 19; Temp 98.7; Pulse Ox 94% on R/A; Weight 68.95 kg; Height iw 5 ft. 4 in. ; 13:34 BP 127 / 59; Pulse 93; Resp 16; Pulse Ox 97% ; ll1 14:28 BP 131 / 61; Pulse 98; Resp 19; Pulse Ox 96% on R/A; iw 12:09 Body Mass Index 26.09 (68.95 kg, 162.56 cm) iw ED Course: 12:09 Patient arrived in ED. iw 12:09 Agustina Soares, RN is Primary Nurse. iw 12:09 Haseeb Chance MD is Attending Physician. rt 12:10 Triage completed. iw 12:11 Arm band placed on. iw 12:27 Initial lab(s) drawn, by me, sent to lab. Inserted saline lock: 22 gauge in left iw antecubital area, using aseptic technique. Blood collected. Flushed with 10 mL NS. 12:31 XRAY Chest (1 view) In Process Unspecified. EDMS 13:34 Diet: Patient given snack. Patient given juice. Patient given water. ll1 14:41 No provider procedures requiring assistance completed. IV discontinued, intact, iw bleeding controlled, No redness/swelling at site. Pressure dressing applied. Administered Medications: 12:34 Drug: Albuterol Inhalation 2.5 mg Inhalation once Route: Inhalation; iw 13:34 Follow up: Response: No adverse reaction ll1 12:34 Drug: Ipratropium Inhalation Aerosol 0.5 mg Inhalation once Route: Inhalation; iw 13:34 Follow up: Response: No adverse reaction ll1 12:34 Drug: predniSONE PO 20 mg PO once Route: PO; iw 13:34 Follow up: Response: No adverse reaction ll1 Outcome: 14:30 Discharge ordered by . rt 14:41 Discharged to home ambulatory, iw 14:41 Condition: good 14:41 Discharge instructions given to patient, Instructed on discharge instructions, follow up and referral plans. Demonstrated understanding of instructions, follow-up care, medications, Prescriptions given X 1, 14:42 Patient left the ED. iw Signatures: Dispatcher [facility] Agustina Wellington, RN RN iw Delfin Young RN RN ll1 Haseeb Chance MD MD rt
--- NOTE | 2024-10-11 14:31 | EDPHYS ---
Physician Documentation [facility] Name: Dena Nance Age: 54 yrs Sex: Female : 1970 Arrival Date: 10/11/2024 Time: 12:06 Bed 5 Private MD: ED Physician Haseeb Chance HPI: 10/11 12:19 This 54 yrs old Female presents to ER via EMS with complaints of Shortness Of rt Breath. 12:19 Patient presents to the ED with dyspnea. Patient was seen here few days ago, diagnosed rt with bronchitis, sent home with antibiotics, steroids, Tessalon Perles. States that she initially felt better, states that she is now worsening, reports pain to her chest, denies other acute complaints at this time, symptoms are moderate in severity, no other aggravating alleviating factors.. Historical: - Allergies: 12:10 NKA; iw - PMHx: 12:10 Diabetes - NIDDM; cirrhosis of liver; Colitis; Crohn's Disease; Diverticulitis; fatty iw liver; gastritis; kidney failure; Pancreatitis; - PSHx: 12:10 Cholecystectomy; hysterectomy; iw - Infectious Disease History:: Denies. - Family history:: not pertinent. ROS: 12:19 Constitutional: Negative for fever, chills, and weight loss, Abdomen/GI: Negative for rt abdominal pain, nausea, vomiting, diarrhea, and constipation, MS/Extremity: Negative for injury and deformity, Skin: Negative for injury, rash, and discoloration, Neuro: Negative for headache, weakness, numbness, tingling, and seizure, 12:19 Cardiovascular: Positive for chest pain, Negative for edema, 12:19 Respiratory: Positive for cough, shortness of breath, wheezing, Exam: 12:19 Constitutional: This is a well developed, well nourished patient who is awake, alert, rt and in no acute distress. Head/Face: Normocephalic, atraumatic. Chest/axilla: Normal chest wall appearance and motion. Nontender with no deformity. No lesions are appreciated. Cardiovascular: Regular rate and rhythm with a normal S1 and S2. No gallops, murmurs, or rubs. Normal PMI, no JVD. No pulse deficits. Abdomen/GI: Soft, non-tender, with normal bowel sounds. No distension or tympany. No guarding or rebound. No evidence of tenderness throughout. Skin: Warm, dry with normal turgor. Normal color with no rashes, no lesions, and no evidence of cellulitis. MS/ Extremity: Pulses equal, no cyanosis. Neurovascular intact. Full, normal range of motion. Neuro: Awake and alert, GCS 15, oriented to person, place, time, and situation. Cranial nerves II-XII grossly intact. Motor strength 5/5 in all extremities. Sensory grossly intact. Cerebellar exam normal. Normal gait. 12:19 ECG was reviewed by the Attending Physician. 12:19 Respiratory: Faint wheezes heard, no respiratory distress, Vital Signs: 12:09 BP 113 / 62; Pulse 85; Resp 19; Temp 98.7; Pulse Ox 94% on R/A; Weight 68.95 kg; Height iw 5 ft. 4 in. ; 13:34 BP 127 / 59; Pulse 93; Resp 16; Pulse Ox 97% ; ll1 14:28 BP 131 / 61; Pulse 98; Resp 19; Pulse Ox 96% on R/A; iw 12:09 Body Mass Index 26.09 (68.95 kg, 162.56 cm) iw MDM: 12:12 Medical Screening Exam initiated rt 17:01 Differential diagnosis: Pneumonia, bronchitis. Data reviewed: vital signs, nurses rt notes, lab test result(s), EKG, radiologic studies. I considered the following discharge prescriptions or medication management in the emergency department Medications were administered in the Emergency Department. See MAR. Independent interpretation of the following test(s) in the Emergency Department X-Ray: My interpretation is No consolidation seen on my interpretation of x-ray images. Test considered but Not performed: CT: Low suspicion for pulmonary embolus, CT angiogram not indicated. Counseling: I had a detailed discussion with the patient and/or guardian regarding the historical points, exam findings, and any diagnostic results supporting the discharge/admit diagnosis, lab results, radiology results, the need for outpatient follow up, to return to the emergency department if symptoms worsen or persist or if there are any questions or concerns that arise at home. Response to treatment: the patient's symptoms have markedly improved after treatment. 10/11 12:17 Order name: Basic Metabolic Panel; Complete Time: 13:14 rt 10/11 12:17 Order name: CBC with Diff; Complete Time: 12:44 rt 10/11 12:17 Order name: LFT's; Complete Time: 13:14 rt 10/11 12:17 Order name: NT PRO-BNP; Complete Time: 13:14 rt 10/11 12:17 Order name: Troponin HS; Complete Time: 13:14 rt 10/11 13:40 Order name: Glucose, Ancillary Testing; Complete Time: 13:55 EDMS 10/11 12:17 Order name: XRAY Chest (1 view); Complete Time: 12:44 rt 10/11 12:17 Order name: EKG; Complete Time: 12:18 rt 10/11 12:17 Order name: Cardiac monitoring; Complete Time: 12:21 rt 10/11 12:17 Order name: EKG - Nurse/Tech; Complete Time: 12:21 rt 10/11 12:17 Order name: IV Saline Lock; Complete Time: 12:27 rt 10/11 12:17 Order name: Labs collected and sent; Complete Time: 12:27 rt 10/11 12:17 Order name: O2 Per Protocol; Complete Time: 12:21 rt 10/11 12:17 Order name: O2 Sat Monitoring; Complete Time: 12:22 rt EC:19 Rate is 83 beats/min. Rhythm is regular, Normal Sinus Rhythm with No ectopy. QRS [place] rt is Normal. [place] interval is normal. QRS interval is normal. QT interval is normal. No Q waves. T waves are Normal. No ST changes noted. Interpreted by me. Administered Medications: 12:34 Drug: Albuterol Inhalation 2.5 mg Inhalation once Route: Inhalation; iw 13:34 Follow up: Response: No adverse reaction ll1 12:34 Drug: Ipratropium Inhalation Aerosol 0.5 mg Inhalation once Route: Inhalation; iw 13:34 Follow up: Response: No adverse reaction ll1 12:34 Drug: predniSONE PO 20 mg PO once Route: PO; iw 13:34 Follow up: Response: No adverse reaction ll1 Disposition Summary: 10/11/24 14:30 Discharge Ordered Notes: Location: Home rt Problem: new rt Symptoms: have improved rt Condition: Stable rt Diagnosis - Acute bronchitis, unspecified rt Followup: rt - With: Private Physician - When: 2 - 3 days - Reason: Discharge Instructions: - Discharge Summary Sheet rt - Acute Bronchitis, Adult rt Forms: - Work release form iw - Medication Reconciliation Form rt - Antibiotic Education rt - Prescription Opioid Use rt - Patient Portal Instructions rt - Leadership Thank You Letter rt Prescriptions: - albuterol sulfate 90 mcg/actuation Inhalation HFA Aerosol Inhaler - inhale 3 puff INHALATION route every 3 hours as needed for bronchospasm; 2 rt Each; Refills: 0, Product Selection Permitted Signatures: Dispatcher [employer] EDMS Agustina Soares RN RN iw Haseeb Chance MD MD rt Delfin Young RN ll1 Corrections: (The following items were deleted from the chart) 12:18 12:17 BASIC METABOLIC PANEL+C.LAB.BRZ ordered. EDMS EDMS 12:18 12:17 CBC+H.LAB.BRZ ordered. EDMS EDMS 12:18 12:17 HEPATIC FUNCTION+C.LAB.BRZ ordered. EDMS EDMS 12:18 12:17 PROBNP+C.LAB.BRZ ordered. EDMS EDMS 12:18 12:17 Troponin High Sensitivity+C.LAB.BRZ ordered. EDMS EDMS
[2024-10-11 15:12] VITALS: TEMP 98.7
[2024-10-11 15:22] VITALS: BP 131/61; O2SAT 96
== END 2024-10-11 14:42 | disposition home or self-care (01) ==
LOC: ER 12:06
DX: J20.9 Acute bronchitis, unspecified (principal)
CPT/HCPCS: 93005; 85025; 80048; 36415; 82947; 80076; 84484; 83880; 71045; 99284; J7512; J7613; J7644

== ENCOUNTER 2025-04-11 13:18 | Emergency (ER) | payer OTHER ==
--- NOTE | 2025-04-11 14:45 | RAD REPORT ---
EXAMINATION: ONE VIEW CHEST XR CLINICAL INDICATION: dizziness TECHNIQUE: Frontal chest projection is submitted. Examination is limited by patient positioning and t echnique. COMPARISON: 10/13/2024 FINDINGS: Interstitial markings are mildly prominent, greater on the left. This may indicate bronchitis or inte rstitial pulmonary edema. The heart is upper limit of normal in size. No displaced fractures identified.
--- NOTE | 2025-04-11 14:46 | RAD REPORT ---
EXAM: CT brain without contrast HISTORY: Dizziness;Weakness COMPARISON: 01/25/2025, 07/16/2024 TECHNIQUE: Multiple contiguous axial images were obtained and a CT of the brain without contrast. Sag ittal and coronal reformats were performed. One or more of the following dose reduction techniques were used: Automated exposure control, adjust ment of the mA and/or kV according to patient size, and/or iterative reconstruction. FINDINGS: No evidence of hydrocephalus, intracranial hemorrhage, or extra-axial fluid collection. The brain is normal in morphology. No evidence of midline shift or areas of brain edema. The calvarium is intact. The visualized paranasal sinuses and mastoid air cells are essentially clear . IMPRESSION: No evidence of acute intracranial abnormality.
[2025-04-11 15:48] LABS: Absolute Lymphocytes (CBC) 2.0 K/uL (0.7-4.9); Hematocrit 38.8 % (36.0-45.0); Hemoglobin 13.0 g/dL (12.0-15.0); MCH 29.1 pg (27.0-35.0); MCHC 33.5 g/dL (32.0-36.0); MCV 87.1 fL (80-100); MPV 8.5 fL (7.6-11.3); Nucleated RBC Absolute Count 0.0 (0-0); Nucleated Red Blood Cells % 0.1 % (0-0); RBC Red Blood Cell Count 4.45 M/uL (3.86-4.86); White Blood Count 7.20 thou/uL (4.3-10.9)
[2025-04-11] MEDS ORDERED: MECLIZINE HCL 12.5 MG TAB ONE (15:52)
[2025-04-11] MEDS ORDERED: NA CHLORIDE 0.9% 1,000 ML ONE (15:52)
[2025-04-11 15:57] LABS: PT Prothrombin Time 12.2 SECONDS (10-13.0); Protime INR 1.08
[2025-04-11 16:11] LABS: ALT/SGPT 30 U/L (13-56); AST/SGOT 18 U/L (15-37); Albumin 3.4 g/dL (3.4-5.0); Albumin/Globulin Ratio 1.1 (1.1-1.8); Alkaline Phosphatase 78 U/L (45-117); Anion Gap 8.7 mEq/L (5.0-15.0); BUN Blood Urea Nitrogen 13 mg/dL (7-18); Bilirubin Indirect, Calculated 0.3 mg/dL (0.2-0.8); Globulin 3.1 g/dL (2.3-3.5); Glucose Level 124 mg/dL (74-106); Magnesium 1.8 mg/dL (1.6-2.4); NT PRO-BNP 44 pg/mL (<125); Potassium 3.7 mEq/L (3.5-5.1)
[2025-04-11 16:12] LABS: Troponin High Sensitivity < 3.0 pg/mL (<58.9)
--- NOTE | 2025-04-11 17:04 | RAD REPORT ---
EXAMINATION: CTA HEAD CLINICAL INDICATION: NUMBNESS TECHNIQUE: Axial CT images were obtained through the head after intravenous contrast utilizing angiog raphic protocol with 3D post-processing (maximum intensity projection images, volume rendered images and/or shaded surface rendered images). One or more of the following dose reduction technique s were used: Automated exposure control, adjustment of the mA and/or kV according to patient size, and/or iterative reconstruction. Unless otherwise specified, incidental findings do not require dedic ated imaging follow-up. COMPARISON: No prior exam. FINDINGS: ICA: The petrous, cavernous, and supraclinoid segments of the bilateral internal carotid arteries are normal. The ophthalmic artery origins are visualized and normal. The posterior communicating arteries are patent. ROHAN: Anterior cerebral arteries are normal bilaterally. The anterior communicating artery is patent. MCA: Middle cerebral arteries are normal bilaterally. BASIN FINISH OPERATOR TIG WELDER: Posterior cerebral arteries are normal bilaterally. Vertebrobasilar: The vertebral arteries are patent. The basilar artery is normal in appearance. 3D images confirm these findings. IMPRESSION: No significant flow abnormality is identified.
--- NOTE | 2025-04-11 17:07 | RAD REPORT ---
EXAMINATION: CTA NECK CLINICAL INDICATION: r sided numbness TECHNIQUE: Axial CT images were obtained from the aortic arch to the skull base after intravenous con trast utilizing angiographic protocol with 3D post-processing (maximum intensity projection images, volume rendered images and/or shaded surface rendered images). One or more of the following dose redu ction techniques were used: Automated exposure control, adjustment of the mA and/or kV according to patient size, and/or iterative reconstruction. Unless otherwise specified, incidental findings do not require dedicated imaging follow-up. COMPARISON: No prior exam. FINDINGS: AORTA: The imaged aortic arch is normal. CCA: The common carotid arteries are patent and normal in caliber. ICA/ECA: Bilateral internal and external carotid arteries are patent. There is no significant interna l carotid artery stenosis. VERTEBRAL: The cervical vertebral arteries are patent. The vertebral arteries are codominant. SOFT TISSUE: No significant neck soft tissue abnormalities. The visualized lung apices are clear. 3D images confirm these findings. IMPRESSION: No significant flow abnormality of the neck vessels is identified. NASCET criteria used. Mild 0-49% stenosis Moderate 50-69% stenosis Severe 70-99% stenosis
--- NOTE | 2025-04-11 17:16 | ER ---
Nurse's Notes [facility] Name: Dena Nance Age: 55 yrs Sex: Female : 1970 Arrival Date: 04/11/2025 Time: 13:18 Bed 26 Private MD: Diagnosis: Dizziness and giddiness Presentation: 04/11 13:44 Chief complaint: Patient states: c/o dizziness that started Friday but has worsened. me1 Reports numbness to bilateral arms and legs since yesterday and c/o generalized weakness. Pain to right neck. Pain level 8/10. Coronavirus screen: Vaccine status: Patient reports receiving the 2nd dose of the covid vaccine. Ebola Screen: No symptoms or risks identified at this time. Initial Sepsis Screen: Does the patient meet any 2 criteria? HR > 90 bpm. Does the patient have a suspected source of infection? No. Patient's initial sepsis screen is negative. Risk Assessment: Do you want to hurt yourself or someone else? Patient reports no desire to harm self or others. Onset of symptoms was April 08, 2025. 13:44 Method Of Arrival[place] [facility] [place] 13:44 Acuity: MARIANA 3 me1 Historical: - Allergies: 13:47 NKA; me1 - PMHx: 13:47 cirrhosis of liver; Colitis; Crohn's Disease; Diabetes - NIDDM; Diverticulitis; fatty me1 liver; gastritis; kidney failure; Pancreatitis; - PSHx: 13:47 Cholecystectomy; hysterectomy; me1 - Immunization history:: Adult Immunizations up to date. - Infectious Disease History:: Denies. - Social history:: Smoking status: Patient denies any tobacco usage or history of. Screenin:35 [facility] ED Fall Risk Assessment (Adult) History of falling in the last 3 months, jb4 including since admission No falls in past 3 months (0 pts) Confusion or Disorientation No (0 pts) Intoxicated or Sedated No (0 pts) Impaired Gait No (0 pts) Mobility Assist Device Used No (0 pt) Altered Elimination No (0 pt) Score/Fall Risk Level 0 - 2 = Low Risk Oriented to surroundings, Maintained a safe environment. Abuse screen: Denies threats or abuse. Nutritional screening: No deficits noted. Tuberculosis screening: No symptoms or risk factors identified. Assessment: 16:32 General: Appears in no apparent distress. comfortable, Behavior is calm, cooperative, jb4 appropriate for age. Pain: Complains of pain in headache Pain does not radiate. Pain currently is 8 out of 10 on a pain scale. Neuro: Level of Consciousness is awake, alert, obeys commands, Oriented to person, place, time, situation, Reports dizziness, since Krish numbness in right arm, left arm, right leg and left leg. Cardiovascular: Patient's skin is warm and dry. Respiratory: Airway is patent Respiratory effort is even, unlabored, Respiratory pattern is regular, symmetrical. Derm: Skin is intact, Skin is pink, warm \T\ dry. Musculoskeletal: Circulation, motion, and sensation intact. Range of motion: intact in all extremities. 17:35 Reassessment: Patient appears in no apparent distress at this time. Patient and/or jb4 family updated on plan of care and expected duration. Pain level reassessed. Patient is alert, oriented x 3, equal unlabored respirations, skin warm/dry/pink. Vital Signs: 13:44 BP 113 / 63; Pulse 91; Resp 18; Temp 98.7; Pulse Ox 96% ; Weight 68.95 kg; Height 5 ft. me1 4 in. ; Pain 8/10; 15:45 BP 105 / 56; Pulse 82; Resp 16; Pulse Ox 94% on R/A; jb4 17:35 BP 102 / 52; Pulse 84; Resp 16; Pulse Ox 95% on R/A; jb4 13:44 Body Mass Index 26.09 (68.95 kg, 162.56 cm) me1 13:44 Pain Scale: Adult ky1 ED Course: 13:22 Patient arrived in ED. im 13:47 Triage completed. me1 13:47 Arm band placed on Patient placed in waiting room. me1 14:03 Angelina Vitale PA-C is PHCP. sb4 14:03 Roberto Alejo MD is Attending Physician. sb4 14:31 XRAY Chest (1 view) In Process Unspecified. EDMS 14:37 Head Brain Wo Cont CT In Process Unspecified. EDMS 15:09 Radiology exam delayed due to lab results not completed at this time. (BUN/Creatinine) nj IV insertion attempt and/or patient not having appropriate IV at this time. 15:45 Initial lab(s) drawn, by woodworking shop laborer, sent to lab. Inserted saline lock: 20 gauge in right ts3 antecubital area, using aseptic technique. Blood collected. Flushed with 10 mL NS. 15:56 EKG done, by technical buyer. reviewed by Angelina Vitale PA-C. ts3 16:29 Calvin Cummings, RN is Primary Nurse. jb4 16:56 CT Head Angio In Process Unspecified. EDMS 16:56 CT Neck Angio In Process Unspecified. EDMS 17:35 Patient has correct armband on for positive identification. Bed in low position. Call jb4 light in reach. Side rails up X 1. Provided Education on: discharge instructions.. 17:45 No provider procedures requiring assistance completed. IV discontinued, intact, jb4 bleeding controlled, No redness/swelling at site. Pressure dressing applied. Administered Medications: 16:14 Drug: Meclizine PO 50 mg PO once Route: PO; jb4 17:40 Follow up: Response: No adverse reaction; Marked relief of symptoms jb4 16:14 Drug: NS 0.9% IV 1000 ml IV at 1000 ml once; to be given as a bolus over 60 minutes jb4 Route: IV; Rate: 1000 ml; Site: right antecubital; 17:45 Follow up: Response: No adverse reaction; IV Status: Pt discharged; IV Intake: 500ml jb4 Medication: 17:35 VIS not applicable for this client. jb4 Intake: 17:45 IV: 500ml; Total: 500ml. jb4 Outcome: 17:16 Discharge ordered by . sb4 17:45 Discharged to home ambulatory, jb4 17:45 Condition: stable 17:45 Discharge instructions given to patient, Instructed on discharge instructions, follow up and referral plans. no drinking with medication, no driving heavy equipment, medication usage, Demonstrated understanding of instructions, follow-up care, medications, Prescriptions given X 1, 17:46 Patient left the ED. jb4 Signatures: Dispatcher [employer] EDOR Calvin Cummings, RN RN hiro4 Alon Em Sophia, PA-C PA-C sb4 Kayla Villanueva Michelle RN RN me1 Kayla Christianson ts3 Corrections: (The following items were deleted from the chart) 17:48 17:48 No provider procedures requiring assistance completed. jb4 jb4 17:48 17:48 IV discontinued, intact, bleeding controlled, No redness/swelling at site. jb4 Pressure dressing applied, jb4
--- NOTE | 2025-04-11 17:16 | EDPHYS ---
Physician Documentation [facility] Name: Dena Nance Age: 55 yrs Sex: Female : 1970 Arrival Date: 04/11/2025 Time: 13:18 Bed 26 Private MD: ED Physician Roberto Alejo HPI: 04/11 14:20 This 55 yrs old Female presents to ER via Ambulatory with complaints of sb4 Weakness, Dizziness, Numbness. 14:20 Patient states for the last 3 days she has been feeling very weak, dizzy, and sb4 experiencing numbness in her arms and legs, worse on the right side. States she came in today because she felt that her symptoms were getting worse. She reports a mild headache and pain in the right side of her neck. Denies any injury or head trauma. Is concerned because she has a medical history of hypertension, diabetes, and "mini stroke". Historical: - Allergies: 13:47 NKA; me1 - PMHx: 13:47 cirrhosis of liver; Colitis; Crohn's Disease; Diabetes - NIDDM; Diverticulitis; fatty me1 liver; gastritis; kidney failure; Pancreatitis; - PSHx: 13:47 Cholecystectomy; hysterectomy; me1 - Immunization history:: Adult Immunizations up to date. - Infectious Disease History:: Denies. - Social history:: Smoking status: Patient denies any tobacco usage or history of. ROS: 14:20 Constitutional: Negative for fever, chills, and weight loss, sb4 14:20 Neuro: Positive for dizziness, headache, numbness, 14:20 All other systems are negative, Exam: 14:20 Head/Face: Normocephalic, atraumatic. Eyes: Extra-ocular motions intact. Periorbital sb4 areas with no swelling, redness, or edema. ENT: Mucous membranes moist. Cardiovascular: Regular rate and rhythm with a normal S1 and S2. Respiratory: No increased work of breathing, no retractions or nasal flaring. Abdomen/GI: Soft, non-tender, no distension. Skin: Warm, dry with normal turgor. Normal color with no rashes, no lesions, and no evidence of cellulitis. 14:20 Constitutional: The patient appears in no acute distress, alert, awake, 14:20 Neuro: Orientation: is normal, to person, place, time \\T\\ situation. Mentation: is normal, lucid, able to follow commands, Memory: is normal, Cranial nerves: extraocular movements are intact, Facial palsy and sensory deficits are absent. no gross hearing deficit,. Speech is clear and appropriate. Tongue strength is normal, Motor: is normal, moves all fours, Sensation: light touch is decreased in the right arm and right leg, Gait: is steady, at a normal pace, without difficulty, Vital Signs: 13:44 BP 113 / 63; Pulse 91; Resp 18; Temp 98.7; Pulse Ox 96% ; Weight 68.95 kg; Height 5 ft. me1 4 in. ; Pain 8/10; 15:45 BP 105 / 56; Pulse 82; Resp 16; Pulse Ox 94% on R/A; jb4 17:35 BP 102 / 52; Pulse 84; Resp 16; Pulse Ox 95% on R/A; jb4 13:44 Body Mass Index 26.09 (68.95 kg, 162.56 cm) me1 13:44 Pain Scale: Adult me1 MDM: 14:04 Medical Screening Exam initiated sb4 14:35 Differential diagnosis: cardiac arrhythmia, CVA, generalized weakness, hypovolemia, sb4 idiopathic dizziness, vertigo. Care significantly affected by the following chronic conditions: Diabetes, Hypertension, Chronic Kidney Disease, Liver Disease. 17:27 Data reviewed: vital signs, nurses notes, lab test result(s), EKG, radiologic studies, sb4 and as a result, I will discharge patient. Counseling: I had a detailed discussion with the patient and/or guardian regarding the historical points, exam findings, and any diagnostic results supporting the discharge/admit diagnosis, lab results, radiology results, the need for outpatient follow up, for definitive care, to return to the emergency department if symptoms worsen or persist or if there are any questions or concerns that arise at home. ED course: Symptoms have improved after meclizine, workup is negative, will safely discharge home at this time. 04/11 14:04 Order name: Basic Metabolic Panel; Complete Time: 16:13 sb4 04/11 14:04 Order name: CBC with Diff; Complete Time: 15:50 sb4 04/11 14:04 Order name: LFT's; Complete Time: 16:13 sb4 04/11 14:04 Order name: Magnesium; Complete Time: 16:13 sb4 04/11 14:04 Order name: NT PRO-BNP; Complete Time: 16:13 sb4 04/11 14:04 Order name: PT-INR; Complete Time: 15:59 sb4 04/11 14:04 Order name: Troponin HS; Complete Time: 16:13 sb4 04/11 14:04 Order name: XRAY Chest (1 view); Complete Time: 14:50 sb4 04/11 14:04 Order name: Head Brain Wo Cont CT; Complete Time: 14:50 sb4 04/11 15:06 Order name: CT Head Angio; Complete Time: 17:05 sb4 04/11 15:06 Order name: CT Neck Angio; Complete Time: 17:11 sb4 04/11 14:04 Order name: Cardiac monitoring; Complete Time: 15:56 sb4 04/11 14:04 Order name: EKG - Nurse/Tech; Complete Time: 15:56 sb4 04/11 14:04 Order name: IV Saline Lock; Complete Time: 15:44 sb4 04/11 14:04 Order name: Labs collected and sent; Complete Time: 15:44 sb4 04/11 14:04 Order name: O2 Per Protocol; Complete Time: 15:44 sb4 04/11 14:04 Order name: O2 Sat Monitoring; Complete Time: 15:45 sb4 EC:58 Rate is 86 beats/min. Rhythm is regular, Normal Sinus Rhythm. DE interval is normal at sb4 163 msec. QRS interval is normal at 88 msec. QT interval is normal at 366 msec. No Q waves. T waves are Normal. No ST changes noted. Clinical impression: No evidence of ischemia. Interpreted by me. Reviewed by me. Administered Medications: 16:14 Drug: Meclizine PO 50 mg PO once Route: PO; jb4 17:40 Follow up: Response: No adverse reaction; Marked relief of symptoms jb4 16:14 Drug: NS 0.9% IV 1000 ml IV at 1000 ml once; to be given as a bolus over 60 minutes jb4 Route: IV; Rate: 1000 ml; Site: right antecubital; 17:45 Follow up: Response: No adverse reaction; IV Status: Pt discharged; IV Intake: 500ml jb4 Disposition: 17:53 Co-signature as Attending Physician, Roberto Alejo MD I reviewed the patient's care rn provided by the Advanced Practice Provider and agree with the diagnosis and treatment plan. Disposition Summary: 04/11/25 17:16 Discharge Ordered Notes: Location: Home sb4 Problem: new sb4 Symptoms: have improved sb4 Condition: Stable sb4 Diagnosis - Dizziness and giddiness sb4 Followup: sb4 - With: Private Physician - When: As needed - Reason: Recheck today's complaints, Re-evaluation by your physician Discharge Instructions: - Discharge Summary Sheet sb4 - Dizziness, [id number] sb4 Forms: - Patient Portal Instructions sb4 - Leadership Thank You Letter sb4 Prescriptions: - Meclizine 25 mg Oral Tablet - take 1 tablet ORAL route every 8 hours As needed; 30 tablet; Refills: 0, sb4 Product Selection Permitted Signatures: Dispatcher [employer] EDRoberto Monroe MD MD rn Bryson, James RN RN jb4 Angelina Vitale PA-C PAJavier sb4 Bety Capellan RN RN me1 Corrections: (The following items were deleted from the chart) 14:05 14:05 Head Brain Wo Cont+CT.RAD.BRZ ordered. EDMS EDMS
[2025-04-11 23:32] VITALS: TEMP 98.7
[2025-04-11 23:34] VITALS: BP 105/56; O2SAT 94
== END 2025-04-11 17:46 | disposition home or self-care (01) ==
LOC: ER 13:18
DX: R42 Dizziness and giddiness (principal); R53.1 Weakness; R20.0 Anesthesia of skin; E11.9 Type 2 diabetes mellitus without complications; K76.0 Fatty (change of) liver, not elsewhere classified; K74.60 Unspecified cirrhosis of liver; K85.90 Acute pancreatitis without necrosis or infection, unspecified; K50.90 Crohn's disease, unspecified, without complications
CPT/HCPCS: 96361; 93005; 85025; 80048; 36415; 83735; 85610; 80076; 84484; 83880; 70450; 70496; 70498; 71045; 96360; 99284; Q9967; J8597; J7030